=== PATIENT | male | born 1940 | race Caucasian/White ===

== ENCOUNTER 2017-03-11 08:00 | Inpatient (IN) | payer OTHER ==
[~2017-03-11] VITALS: Ht 175.3 cm; Wt 123.5 kg
[~2017-03-11 08:00] MED LIST: ADVAIR 100-501 EACH INH; ALEVE220 MG PO; ASPIRIN EC81 M1 PO; CARVEDILOL6.25 M1 PO; FISH OIL 500 M1 EAC1 PO; FLOMAX0.4 M1 PO; FUROSEMIDE20 MG PO; LISINOPRIL20 MG PO; MAGNESIUM OXID400 MG PO; MELOXICAM7.5 MG PO; METFORMIN HCL500 M3 PO; NITROGLYCERIN0.4 MG PO; PRINIVIL 5MG5 MG PO; TIKOSYN 250 M250 MCG PO; TIKOSYN0.5 MG PO; VICTOZA 3-0.6 MG/0.1 SC; VITAMIN E400 IU PO; ZOCOR10 M1 PO; [UNRECOGNIZED DRUG - OTHER] IV
--- NOTE | 2017-03-11 08:05 | ED GENERAL ADULT ---
History of Present Illness General Chief Complaint: Upper Extremity Problem Stated Complaint: S/P FALL KNEE PAIN ? CELLULITIS Source: patient Exam Limitations: no limitations Allergies Coded Allergies: NO KNOWN ALLERGIES (03/22/12) NKA PER DIPYRIDAMOLE ORDER SHEET - S Reconcile Medications Aspirin (Ecotrin*) 81 MG TABLET.DR 1 TAB PO DAILY HEART HEALTH (Reported) Carvedilol 6.25 MG TABLET 1 TAB PO BID HEART (Reported) Dofetilide 500 MCG CAPSULE 1 CAP PO BID HEART (Reported) Fluticasone-Salmeterol (Advair 100-50 Diskus) 100 MCG-50 MCG/DOSE BLST.W.DEV 1 PUF INH BID COPD (Reported) Liraglutide (Victoza 3-Myles) 0.6 MG/0.1 ML (18 MG/3 ML) PEN.INJCTR 1.2 MG SC DAILY DIABETES (Reported) Lisinopril (Prinivil) 5 MG TABLET 1 TAB PO DAILY HEART (Reported) Magnesium Gluconate (Mag-G) 27 MG (500 MG) TABLET 1 TAB PO Tuesday SUPPLEMENT (Reported) Metformin HCl 500 MG TABLET 1 TAB PO BID DIABETES (Reported) Florala-3/Dha/Epa/Fish Oil (Fish Oil 500 MG Softgel) 60 MG-90 MG-500 MG CAPSULE 1 CAP PO DAILY SUPPLEMENT (Reported) Simvastatin (Zocor*) 10 MG TABLET 1 TAB PO QPM CHOLESTEROL (Reported) Tamsulosin HCl (Flomax) 0.4 MG CAP.ER.24H 1 CAP PO DAILY PROSTATE (Reported) Vitamin E Acetate (Vitamin E) 400 UNIT CAPSULE 1 CAP PO BID SUPPLEMENT ( Reported) Triage Nurses Notes Reviewed? yes Onset: Abrupt Duration: JUST PRIOR TO ARRIVAL Timing: single episode today Injury Environment: home Severity: mild, moderate No Modifying Factors: none Associated Symptoms: WEAKNESS, LEG SWELLING HPI: This is a 76-year-old male who presents to the ER by EMS from home for chief complaint of weakness in his lower extremities and foot out of bed. Patient has a history of coronary disease status post bypass and ICD. He states he was getting out of bed and his legs felt weak and he slid to the ground. He Hit His Head or Lose Consciousness. Patient Is at Home and Lives with a Nephew. He Uses a Walker. He Has Not Been Out Of His House in the past Month and He Has Not Bathed in the past Month. He Recently Had Handicap Bars Installed in the Showers That He Did Start to Take a Bath. Denies Any Chest Pain. Minimal Shortness of Breath. No Fever No Chills. He States His Legs Are Swollen and Red and Have Been Weeping. He Does Not Follow up with Wound Care. Patient Sees Dr. Parikh for Cardiology. His Primary Care Doctor Is Dr. Barron in [place]. Patient was found to be incontinent by EMS. He was on the ground for about 10 or 15 minutes. EMS reports home conditions or poor for the patient. (YARIEL RODRÍGUEZ,[facility]) Vital Signs & Intake/Output Vital Signs & Intake/Output Vital Signs Date Time Temp Pulse Resp B/P B/P Pulse O2 O2 Flow FiO2 Mean Ox Delivery Rate 03/13 1543 98.9 69 20 124/70 93 03/13 1211 116/70 03/13 0837 120/64 03/13 0836 120/64 03/13 0716 98.4 64 18 120/64 93 Room Air 03/13 0318 59 96 03/13 0305 69 22 112/60 91 CPAP 03/13 0120 72 96 /09 0000 96 CPAP 2.0L 03/12 2240 98.2 69 18 126/50 93 Room Air 03/12 2232 67 95 /08 2147 78 126/80 ED Intake and Output 03/13 0000 03/12 1200 Intake Total 1200 1020 Output Total 1725 375 Balance -525 645 Intake, IV 620 Intake, Oral 1200 400 Output, Urine 1725 375 Past History Medical History Any Pertinent Medical History? see below for history Neurological: NONE EENT: hearing loss Cardiovascular: AFIB, CAD, hypertension, myocardial infarction, RCW AICD S/P CABG 2003 Respiratory: bronchitis, SLEEP APNEA Gastrointestinal: NONE Hepatic: NONE Renal: hematuria Musculoskeletal: falls Psychiatric: NONE Endocrine: DIABETES TYPE 2 Blood Disorders: NONE Cancer(s): NONE HAND ALTERATIONS TAILOR/Reproductive: NONE History of MRSA: No History of VRE: No History of CDIFF: No Pneumonia Vaccine: 06/05/14 Influenza Vaccine: 06/05/14 Surgical History Surgical History: CABG, ICD Psychosocial History Who do you live with Other (see notes) Services at Home None What is your primary language Togolese Family History Family History, If Any: MOTHER, , Age 60+; Cause: Heart disease. FH: heart disease BROTHER FH: lung cancer FATHER FH: prostate cancer Hx Contributory? No (YARIEL RODRÍGUEZ,YAYA) Review of Systems Review of Systems Constitutional: Reports: weakness. Denies: chills, fever. EENTM: Reports: no symptoms. Respiratory: Reports: short of breath. Denies: cough, sputum production. Cardiovascular: Reports: peripheral edema. Denies: chest pain. GI: Reports: no symptoms. Genitourinary: Reports: no symptoms. Musculoskeletal: Reports: no symptoms. Skin: Reports: erythema. Neurological/Psychological: Reports: no symptoms. Hematologic/Endocrine: Denies: bruising, bleeding, polyuria, polydipsia. Immunologic/Allergic: Denies: splenectomy. All Other Systems: Reviewed and Negative (YARIEL RODRÍGUEZ,YAYA) Physical Exam Physical Exam General Appearance: well developed/nourished, alert, awake, comfortable, mild distress, moderate distress, obese Head: atraumatic Eyes: Bilateral: PERRL. Ears, Nose, Throat: normal pharynx, hearing grossly normal Neck: normal inspection, supple, full range of motion Respiratory: normal breath sounds, chest non-tender, no respiratory distress Cardiovascular: regular rate/rhythm Peripheral Pulses: 2+ radial (R), 2+ radial (L) Gastrointestinal: soft, non-tender, spleenomegaly (OBESE) Extremities: B/L LOWER EXTREMITY ERYTHEMA, WEEPING, SKIN CHANGES. TENDER TO PALPATION Neurologic/Psych: no motor/sensory deficits, awake, alert, oriented x 3 Skin: B/L LOWER LEG ERYTHEMA, PEELING SKIN, OPEN AREAS FROM SKIN BREAKDOWN Core Measures ACS in differential dx? No CVA/TIA Diagnosis: No Severe Sepsis Present: No Septic Shock Present: No (YARIEL RODRÍGUEZ,YAYA) Progress Differential Diagnoses I considered the following diagnoses in my evaluation of the patient: [Chronic venous stasis, dependent edema, cellulitis, erysipelas, skin breakdown, failure to thrive] Diagnostic Imaging: Viewed by Me: Radiology Read. Discussed w/RAD: Radiology Read. CXR Impression: PATIENT: LUIS HENDERSON PRESENT AGE: 76 PATIENT ACCOUNT NO: [id number] : 40 LOCATION: [facility] ORDERING PHYSICIAN: YAYA SALDIVAR MD SERVICE DATE: 03/11/17 EXAM TYPE: RAD - XRY-PORTABLE CHEST XRAY EXAMINATION: XR PORTABLE CHEST CLINICAL INFORMATION: CHF edema shortness of breath COMPARISON: Most recent chest x-ray October 2014 TECHNIQUE: Portable frontal view of the chest was obtained. FINDINGS: Sternotomy wires are present. There is a persistent AICD device with leads overlying the cardiac silhouette unchanged. The lungs are clear. The cardiac silhouette mediastinum and pulmonary vascularity are normal. IMPRESSION: No acute disease no x-ray evidence for pulmonary edema DICTATED BY: NESTOR WEBER MD DATE/TIME DICTATED:03/11/17916 MEDICAL CONCIERGE:AMEE DATE/TIME TRANSCRIBED:916 CONFIDENTIAL, DO NOT COPY WITHOUT APPROPRIATE AUTHORIZATION. < Electronically signed in Other Vendor System> SIGNED BY: NESTOR WEBER MD 03/11/17922 Initial ED EKG: NSR, T WAVE INVERSIONS V3-V6 Prior EKG: changed ( (PACED)) (YARIEL RODRÍGUEZ,YAYA) Plan of Care: Orders Procedure Date/time Status CBC WITHOUT DIFFERENTIAL 03/14 600 Active BASIC ELECTROLYTES PLUS BUN&CR 03/14 06 Active Weight 03/13 0716 Active CBC WITHOUT DIFFERENTIAL 03/13 06 Complete BASIC ELECTROLYTES PLUS BUN&CR 03/13 06 Complete THERAPIST ORDERS 03/13 0323 Complete OXYGEN SETUP (GEN) 03/13 032 Complete Pathway - chart 03/12 2054 Active CONTIN. POSITIVE AIRWAY PRESS 03/12 UNK Complete PHYSICIAN CONSULT 03/12 UNK Active Current Medications Sig/Buck Start time Last Medication Dose Stop Time Status Admin Senna 187 MG AT BEDTIME 03/13 220 AC (Senokot) Lisinopril 5 MG DAILY 03/13 1047 AC 03/13 (Prinivil) 1211 Docusate Sodium 100 MG DAILY 03/13 1000 AC 03/13 (Colace) 0836 Insulin Aspart 0 TIDAC/HS 03/13 0800 CAN (NovoLOG) Polyethylene Glycol 17 GM DAILY PRN 03/13 0330 AC (Miralax) Zinc Oxide 1 GENE BID 03/12 2200 AC 03/13 (Desitin) 0837 Acetaminophen 650 MG Q6P PRN 03/12 2100 AC (Tylenol) Acetaminophen/ 1 TAB Q6P PRN 03/12 2100 AC 03/13 Hydrocodone Bitart 0551 (Vicodin) Morphine Sulfate 2 MG Q4P PRN 07/08 2100 AC (Morphine) Magnesium Chloride 64 MG DAILY 03/12 1000 AC 03/13 (Slow-Mag) 0836 Dofetilide 500 MCG BID 03/11 2200 AC 03/13 (Tikosyn 125 MCG) 0836 Ampicillin Sodium/ 3,000 MG Q6 03/11 1800 AC 03/13 Sulbactam Sodium 1211 (Unasyn) Sodium Chloride 100 ML (Normal Saline 0.9%) Atorvastatin Calcium 10 MG 1700 03/11 1700 AC 03/13 (Lipitor) 1602 Insulin Aspart 0 TIDAC 03/11 1700 AC 03/13 (NovoLOG) 1211 Heparin Sodium 5,000 UNIT Q8 03/11 1503 AC 03/13 (Porcine) 1211 Tamsulosin HCl 0.4 MG DAILY 03/11 1341 AC 03/13 (Flomax) 0836 Vitamin E 400 IU DAILY 03/11 1341 AC 03/13 (Vitamin E) 0836 Fish Oil 1,050 MG DAILY 03/11 1340 AC 03/13 (Florala-3) 0836 Budesonide/ 2 PUF BID 03/11 1339 AC 03/13 Formoterol Fumarate 0840 (SYMBICORT) Aspirin Buffered 81 MG DAILY 03/11 1338 AC 03/13 (Ecotrin) 0836 Carvedilol 6.25 MG BID 03/11 1338 AC 03/13 (Coreg) 0837 Laboratory Tests 03/13/17 0730: Anion Gap 11, Estimated GFR > 60, BUN/Creatinine Ratio 23.3, CBC w Diff MAN DIFF ORDERED, RBC 4.86, MCV 89.5, MCH 29.9, RDW 15.2 H, MPV 8.6, Gran % 60.8, Lymphocytes % 29.5, Monocytes % 6.6, Eosinophils % 2.7, Basophils % 0.4, Absolute Granulocytes 7.6 H, Segmented Neutrophils 50, Band Neutrophils 4, Absolute Lymphocytes 3.7 H, Lymphocytes 32, Monocytes 8, Absolute Monocytes 0.8 H, Eosinophils 2, Absolute Eosinophils 0.3, Basophils 1, Absolute Basophils 0, Metamyelocytes 3 H, Normocytic RBCs VERIFIED, Normochromic RBCs VERIFIED, PUBS MCHC 33.4 EKG, TELE MONITOR, LABS, XRAY ORDERED. BLOOD CULTURES, IV ABX ORDERED, IV TYLENOL ORDERED. DR NYDIA MONTEIOR. D/W HOSPITALIST FOR ADMISSION. PATIENT WITHOUT CHEST PAIN/EKG. MAY NEED PACEMAKER INTERROGATED. 2:[address] parikh called back - RECOMMENDS 23 HRS ON TELE FOR PACEMAKER EVALUATION. (YAYA SALDIVAR MD) Departure Departure Time of Disposition: 1148 Disposition: STILL A PATIENT Condition: Stable Clinical Impression Primary Impression: Dependent edema Secondary Impressions: USMAN (acute kidney injury), Cellulitis Referrals: ISIDORO RODRÍGUEZ,JUAN Cornejo (PCP/Family) Departure Forms: Customer Survey General Discharge Information Admission Note Spoke With: MAYRA AGUILAR MD Documentation of Exam: Documentation of any treatments & extenuating circumstances including Concerns Regarding Discharge (functional status, medication knowledge or non-compliance, living conditions, etc.) that warrant an admission rather than observation: [IV FLUIDS, IV ABX, WOUND CARE, MONITOR I/O, ENDOCRINE CONSULTATION] (YAYA SALDIVAR MD) Critical Care Note Critical Care Note Critical Care Time: non-applicable (YAYA SALDIVAR MD)
--- NOTE | 2017-03-11 08:15 | NUR ---
PT BIBA FROM HOME S/P SLIP AND FALL OUT OF BED ONTO HIS KNEES. STATES HE DID NOT HIT HIS HEAD. REPORTS HE WAS ON THE GROUND FOR A FEW HOURS WHILE HIS NEPHEW WAS SLEEPING. PT APPEARS UNKEMPT, STATES HE HAS NOT SHOWERED IN SOME TIME. CLOTHING SATURATED WITH URINE, PT CLEANED AND CHANGED. DR SALDIVAR TO [facility]. PT STATES HE DOES NOT GET UP AT HOME MUCH, AND LIVES WITH HIS NEPHEW WHO BUYS HIS FOOD FOR HIM.
[2017-03-11] MEDS ORDERED: MAG-G27 MG PO (09:10)
[2017-03-11] MEDS ORDERED: VITAMIN E400 UNI4 PO (09:11)
[2017-03-11] MEDS ORDERED: PRINIVIL5 M1 PO (09:13)
[2017-03-11] MEDS ORDERED: DOFETILIDE500 MCG PO (09:14)
--- NOTE | 2017-03-11 09:23 | RADIOLOGY REPORT ---
EXAMINATION: XR PORTABLE CHEST CLINICAL INFORMATION: CHF edema shortness of breath COMPARISON: Most recent chest x-ray October 2014 TECHNIQUE: Portable frontal view of the chest was obtained. FINDINGS: Sternotomy wires are present. There is a persistent AICD device with leads overlying the cardiac silhouette unchanged. The lungs are clear. The cardiac silhouette mediastinum and pulmonary vascularity are normal. IMPRESSION: No acute disease no x-ray evidence for pulmonary edema
[2017-03-11 10:00] LABS: ABSOLUTE BASOPHIL COUNT 0 /CUMM (0.0-0.2); ABSOLUTE EOSINOPHIL COUNT 0 /CUMM (0.0-0.7); ABSOLUTE GRANULOCYTE CT 12.2 /CUMM (1.4-6.5); ABSOLUTE LYMPH COUNT 2.3 /CUMM (1.2-3.4); ABSOLUTE MONOCYTE COUNT 0.8 /CUMM (0.10-0.60); BASOPHIL % 0.3 % (0.0-2.0); EOSINOPHIL % 0 % (0-5); HEMATOCRIT 44.4 % (42-52); MEAN CORPUSCULAR HGB 29.4 PG (27.0-31.0); MEAN CORPUSCULAR HGB CONC 33.1 G/DL (33.0-37.0); MEAN CORPUSCULAR VOLUME 88.8 FL (80.0-94.0); MEAN PLATELET VOLUME 9.2 FL (7.4-10.4); PLATELET COUNT 162 /CUMM (130-400); RBC DISTRIBUTION WIDTH 14.7 % (11.5-14.5); WHITE BLOOD CELL COUNT 15.3 /CUMM (4.8-10.8)
[2017-03-11 10:01] LABS: GRANULOCYTE % 79.9 % (42.2-75.2)
[2017-03-11 10:07] LABS: PT 12.1 SEC (9.4-12.5); PTT 25 SEC (25-37)
--- NOTE | 2017-03-11 10:10 | NUR ---
PT IS EXTREMEMLY DIFFICULT STICK. LABS OBTAINED AND CULTURES OBTAINED BY THIS RN AND BARBARA COPE, TAKEN TO LAB.
--- NOTE | 2017-03-11 10:45 | NUR ---
CEFAZOLIN INFUSING (SEE MAR)
--- NOTE | 2017-03-11 11:20 | NUR ---
PT AMBULATORY WITH USE OF WALKER AND ASSIST X1 TO GET OOB. ABLE TO STAND TO USE URINAL, SAMPLE SENT TO LAB.
--- NOTE | 2017-03-11 12:38 | History & Physical ---
MAURICE GRIDER 03/11/17 1236: General Information and HPI MD Statement: I have seen and personally examined LUIS HENDERSON and documented this H&P. The patient is a 76 year old M who presented with a patient stated chief complaint of [weakness/ leg swelling]. Source of Information: patient Exam Limitations: no limitations History of Present Illness: 76-year-old male with a past medical history of COPD, hyperlipidemia, diabetes mellitus, CAD s/p CABG in 2003 and AICD, BPH, LIAM on CPAP, occult GI bleed, who presents to us with c/o wekaness, and leg swelling. States he was in his USOH about 3 month sago when he fisrt noticed swelling and pain in his lower extremities that progressively worsened. Also endorsed blisters on his skin that started to then weep. Has been placing a dry bandage on it but to no avail. F/U Dr. Chaudhry his endocrinolist in [place] - 6 months - usually FSGs are in the 130s. F/U with Dr. Nguyen who placed defribillator (last saw him 6 months ago and will be seeing him next month). States taht last night he slid off [facility] bed while getting out because his left leg was hurting him a lot. Was unable to get up because of pain in his LEs. Called his nephew who called EMS and brought him to the ER. Dneis chest pain, shortness of breath, no dyspnea, PND, or orthopnea, no seizures, LOC, trauma to head, urinary adn fecal incontuinence or tongue biting. uses a walker at baseline. Hasnt been out of the house in 3 months. Denies fever, chills. Does say that he gets winded and has pain in his legs. States that his appetite has been good and denies any nausea, vomiting. Does endorse urinary incontinence because uanble to make it to the bathroom. Allergies/Medications Allergies: Coded Allergies: NO KNOWN ALLERGIES (03/22/12) NKA PER DIPYRIDAMOLE ORDER SHEET - [facility] Home Med list Aspirin (Ecotrin*) 81 MG TABLET. 1 TAB PO DAILY HEART HEALTH (Reported) Carvedilol 6.25 MG TABLET 1 TAB PO BID HEART (Reported) Dofetilide 500 MCG CAPSULE 1 CAP PO BID HEART (Reported) Fluticasone-Salmeterol (Advair 100-50 Diskus) 100 MCG-50 MCG/DOSE BLST.W.DEV 1 PUF INH BID COPD (Reported) Liraglutide (Victoza 3-Myles) 0.6 MG/0.1 ML (18 MG/3 ML) PEN.INJCTR 1.2 MG SC DAILY DIABETES (Reported) Lisinopril (Prinivil) 5 MG TABLET 1 TAB PO DAILY HEART (Reported) Magnesium Gluconate (Mag-G) 27 MG (500 MG) TABLET 1 TAB PO Tuesday SUPPLEMENT (Reported) Metformin HCl 500 MG TABLET 1 TAB PO BID DIABETES (Reported) Bomoseen-3/Dha/Epa/Fish Oil (Fish Oil 500 MG Softgel) 60 MG-90 MG-500 MG CAPSULE 1 CAP PO DAILY SUPPLEMENT (Reported) Simvastatin (Zocor*) 10 MG TABLET 1 TAB PO QPM CHOLESTEROL (Reported) Tamsulosin HCl (Flomax) 0.4 MG CAP.ER.24H 1 CAP PO DAILY PROSTATE (Reported) Vitamin E Acetate (Vitamin E) 400 UNIT CAPSULE 1 CAP PO BID SUPPLEMENT ( Reported) Past History Travel History Traveled to [place] past 21 day No Medical History Neurological: NONE EENT: hearing loss Cardiovascular: AFIB, CAD, hypertension, myocardial infarction, RCW AICD S/P CABG 2003 Respiratory: bronchitis, SLEEP APNEA Gastrointestinal: NONE Hepatic: NONE Musculoskeletal: falls Psychiatric: NONE Endocrine: DIABETES TYPE 2 Blood Disorders: NONE Cancer(s): NONE 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 FH: heart disease BROTHER FH: lung cancer FATHER FH: prostate cancer Psychosocial History Where do you live? Home Who Do You Live With? with nephew Services at Home: None Primary Language: Tristanian Smoking Status: Former Smoker (25 pck year) ETOH Use: occasional use Illicit Drug Use: denies illicit drug use Functional Ability ADLs Independent: eating. Needs Assist: dressing, toileting, bathing. Ambulation: walker IADLs Needs Assist: shopping, housework, finances, food prep, telephone, transportation, medication admin. 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 Denies: chills, fever. EENTM: Denies: visual changes. Cardiovascular: Reports: peripheral edema. Denies: chest pain, orthopena, palpitations, syncope. Respiratory: Reports: sputum production. Denies: cough, short of breath, wheezing. GI: Denies: abdominal pain, constipation, diarrhea, nausea, vomiting. Genitourinary: Reports: urgency. Denies: discharge, dysuria, frequency, hematuria. Musculoskeletal: Denies: back pain. Neurological/Psychological: Denies: headache, numbness, tingling, tremors. Exam & Diagnostic Data Last 24 Hrs of Vital Signs/I&O Vital Signs Date Time Temp Pulse Resp B/P B/P Pulse O2 O2 Flow FiO2 Mean Ox Delivery Rate 03/11 1153 98.0 80 20 125/51 98 Room Air 03/11 1124 97.0 84 138/70 03/11 1009 98.7 88 20 121/77 100 Room Air 03/11 0801 92 18 173/99 93 Room Air Physical Exam General Appearance Alert, Oriented X3, Cooperative, morbidly obese Skin Temp/Moisture Exam: Warm/Dry HEENT Atraumatic, PERRLA, EOMI, Mucous Membr. moist/pink Neck Supple, No JVD, No thryomegaly, +2 Carotid Pulse wo Bruit, No LAD Cardiovascular Normal S1, Normal S2 Lungs Clear to Auscultation, Normal Air Movement Abdomen Normal Bowel Sounds, Soft, No Tenderness, has Neurological Normal Speech, Normal Tone, Sensation Intact, Cranial Nerves 3-12 NL Extremities b/l 3+ edema with chronic venous stasis canges, and multiple blisters and weeping wounds measuring 3cm x2cm on his anterolateral aspect of mercado. Body Front and Back (Adult) 1) blister 2) blister 3) has a 2cm x3cm weeping wound 4) has a 3cm x1cm weeping wound Last 24 Hrs of Labs/Les: Laboratory Tests 03/11/17 1117: Urine Color YEL, Urine Clarity CLDY H, Urine pH 5.5, Ur Specific [place] 1.025, Urine Protein 100 H, Urine Ketones 15 H, Urine Nitrite NEG, Urine Bilirubin NEG, Urine Urobilinogen 0.2, Ur Leukocyte Esterase MOD H, Ur Microscopic SEDIMENT EXAMINED, Urine RBC 15-25 H, Urine WBC PACKD H, Ur Epithelial Cells FEW, Urine Bacteria FEW H, Urine Hemoglobin LARGE H, Urine Glucose >=1000 H 03/11/17 0935: Anion Gap 16, Estimated GFR 46 L, BUN/Creatinine Ratio 16.0, Glucose 293 H, Calcium 10.2, Total Bilirubin 1.3, AST 26, ALT 26, Alkaline Phosphatase 65, Troponin I 0.03, Osl-V-Gfvoajkbkeq Pept 527 H, Total Protein 7.0, Albumin 4.3, Globulin 2.7, Albumin/Globulin Ratio 1.6, PT 12.1, INR 1.15, APTT 25, CBC w Diff NO MAN DIFF REQ, RBC 5.00, MCV 88.8, MCH 29.4, RDW 14.7 H, MPV 9.2, Gran % 79.9 H, Lymphocytes % 14.8 L, Monocytes % 5.0, Eosinophils % 0, Basophils % 0.3, Absolute Granulocytes 12.2 H, Absolute Lymphocytes 2.3, Absolute Monocytes 0.8 H, Absolute Eosinophils 0, Absolute Basophils 0, PUBS MCHC 33.1 Microbiology 03/11 950 BLOOD: Blood Culture - RECD 03/11 940 BLOOD: Blood Culture - RECD Diagnostic Data EKG Results ? Sinus rythm; HR: 78, T wave inversions in II, III, aVF, and V3-V6 (changed formo previous) CXR Results revealed presence of sternotomy wires, persistent AICD with leads overlying the cardiac silhouette, lungs clear with normal pulmonary vascularity. Assessment/Plan Assessment: 76-year-old male with a past medical history of COPD, hyperlipidemia, diabetes mellitus, CAD s/p CABG in 2003 and AICD, BPH, LIAM, occult GI bleed, who presents to us with c/o wekaness, and leg swelling. Vitals on admission blood pressure 170/99, respiratory rate of 18, pulse 92 afebrile saturating 93% on room air. Labs pertinent for leukocytosis with a white blood cell count 15,300, H&H of 44.4/88.8, and a platelet count of 162,000. Serum chemistries revealed a sodium of 137, potassium of 4.7, bicarbonate of 20, anion gap of 16, BUN 24 with a creatinine of 1.5, He is 93. LFTs unremarkable with an AST/ALT of 26/26, total bili 1.3, alkaline phosphatase of 65. Troponin first set 0.03. ProBNP elevated to 527. INR of 1.15. UA was cloudy with proteinuria, ketonuria, moderate amount of leukocyte esterase, 15-25 RBCs with packed white blood cells, glucosuria. Dobutamine nuclear stress was done back in November 2014, which showed no clinical or electrocardiographic evidence of dobutamine induced myocardial ischemia. Echo done in October 2014 showed normal left ventricular size, abnormal septal motion consistent with hypokinetic septum, mildly reduced global left ventricular systolic function, abnormal left ventricular EF around 40-45% with stage I diastolic dysfunction EKG revealed ? Sinus rythm; HR: 78, T wave inversions in II, III, aVF, and V3-V6 (changed formo previous) Chest x-ray revealed presence of sternotomy wires, persistent AICD with leads overlying the cardiac silhouette, lungs clear with normal pulmonary vascularity. In the ER, he received IV Tylenol thousand milligrams x1, cefazolin 100 mg IV 1. Assesment and Plan Admit to Telemetry given EKG abnormailities. #Cellulitis of the setting of bilateral lower extremity swelling and wounds Most likely secondary to chronic venous stasis changes with superimposed cellulitis Follow-up ultrasound Dopplers to rule out DVT Start him on Unasyn 3000 mg every 6 for anaerobic coverage Wound care consult Follow-up blood cultures He probably benefit from being diuresed once his renal function is back to baseline #Diabetes mellitus Patient is on Victoza and metformin We'll hold his home medications for now and start him on NovoLog sliding scale Follow-up Accu-Cheks 3 times a day at bedtime Follow-up hemoglobin A1c #Coronary artery disease status post CABG as well as AICD placement Will rule out ACS with troponins and EKG at 3 PM and 9 PM Follow-up echocardiogram Cardiology consult with Dr. Sanchez Continue aspirin, carvedilol, atorvastatin, dofetilide Holding lisinopril 5 mg daily given AK I #Right hip. Patient did have a hip replacement surgery done 2 years ago Surgery was performed by Dr. Webb whose office of called and left a voice message waiting for call back. Follow-up x-ray showed some loosening of the hardware #AK I Most likely secondary to dehydration Hydrate him with IV fluids normal saline at 75 MLS per hour Follow-up BEP in a.m. Avoid nephrotoxic agents for now Continue to hold lisinopril and resume in a.m. depending on BEP #EPH Continue on tamsulosin 0.4 mg daily #COPD Continue on Symbicort TRC nebs #LIAM on CPAP Continue on patient's home settings of CPAP -DVT prophylaxis Heparin 5000 international units 3 times a day subcutaneous - Diet Consistent carb with 2 g sodium restriction -Code Status Full code As Ranked By This Provider Problem List: 1. Cellulitis 2. USMAN (acute kidney injury) Core Measures/Miscellaneous Acute Coronary Syndrome ACS Diagnosis: No Cerebrovascular Accident CVA/TIA Diagnosis: No Congestive Heart Failure CHF Diagnosis: No VTE (View Protocol) VTE Risk Factors: Age > 40 No [facility] VTE prophylaxis d/t: No contraindications No VTE Pharm Prophylaxis d/t: No contraindications VTE Diagnosis: No VTE Type: NONE VTE Confirmed by (Test): NONE Sepsis (View Protocol) Severe Sepsis Present: No Septic Shock Septic Shock Present: No Miscellaneous Documentation Attending Case Discussed With: LAUREN RODRÍGUE[facility]CAR[facility] Primary Care Physician: JUAN CHAUDHRY MD Patient sees these Specialists Dr. Patrick Sanchez Level of Patient Care: General Medicine Resident Review Statement Resident Statement: admitted by resident POLY ALEXANDER MD 03/11/17 1619: Attending MD Review Statement Attending Statement Attending MD Statement: examined this patient, discuss w/resident/PA/BROADCAST OPERATIONS ENGINEER, agreed w/resident/PA/BROADCAST OPERATIONS ENGINEER, reviewed EMR data (avail), discussed with nursing, discussed with case mgmt, reviewed images, amended to note Attending Assessment/Plan: 76 y/o M with pmh sig for COPD, hyperlipidemia, diabetes mellitus, CAD s/p CABG in 2003 and AICD, BPH, LIAM on CPAP, occult GI bleed, presentd with generalized weakness, increasing leg swelling b/l, weeping wounds on lle and he sled out of bed and hit his lle. Patient has this chronic wound issues for quite a while. Now the left lower extremity wounds are open with some blisters. There is some clear discharge. He also claims that he has not been taking any diuretics lately. He follows up with Dr. Sanchez as well as Dr. Neelam qiu. He claims that his defibrillator has been working okay. He denies any decrease in his oral intake but in the emergency room his creatinine was elevated and he was in acute renal failure. He denies any urinary complaints but he does have a dirty looking urine. He follows up with an plisse machine operator in [facility] Dr. Chaudhry. He was also complaining of right hip pain specially upon movement. He had a history of right hip replacement done in the past. Vital Signs Date Time Temp Pulse Resp B/P B/P Pulse O2 O2 Flow FiO2 Mean Ox Delivery Rate 03/11 1346 98.2 88 138/84 03/11 1153 98.0 80 20 125/51 98 Room Air 03/11 1124 97.0 84 138/70 03/11 1009 98.7 88 20 121/77 100 Room Air 03/11 0801 92 18 173/99 93 Room Air on exam; aox3, nad. cv; s1,s2, rrr, + ICD. resp; clear b.l abd; soft, nt, bs+ ext; 2+ eema, with blisters and open leaking wounds. LAbs; 03/11 03/11 1117 0935 Chemistry Sodium (137 - 145 mmol/L) 137 Potassium (3.5 - 5.1 mmol/L) 4.7 Chloride (98 - 107 mmol/L) 102 Carbon Dioxide (22 - 30 mmol/L) 20 L Anion Gap (5 - 16) 16 BUN (9 - 20 mg/dL) 24 H Creatinine (0.7 - 1.2 mg/dL) 1.5 H Estimated GFR (>60 ml/min) 46 L BUN/Creatinine Ratio (7 - 25 %) 16.0 Glucose (65 - 99 mg/dL) 293 H Hemoglobin A1c (4.2 - 5.8 %) Pending Calcium (8.4 - 10.2 mg/dL) 10.2 Total Bilirubin (0.2 - 1.3 mg/dL) 1.3 AST (17 - 59 U/L) 26 ALT (21 - 72 U/L) 26 Alkaline Phosphatase (< 127 U/L) 65 Troponin I (<0.11 ng/ml) 0.03 Chx-O-Hxnjsqiasrc Pept (<125 pg/mL) 527 H Total Protein (6.3 - 8.2 g/dL) 7.0 Albumin (3.5 - 5.0 g/dL) 4.3 Globulin (1.9 - 4.2 gm/dL) 2.7 Albumin/Globulin Ratio (1.1 - 2.2 %) 1.6 Coagulation PT (9.4 - 12.5 SEC) 12.1 INR (0.90 - 1.17) 1.15 APTT (25 - 37 SEC) 25 Hematology CBC w Diff NO MAN DIFF REQ WBC (4.8 - 10.8 /CUMM) 15.3 H RBC (4.70 - 6.10 /CUMM) 5.00 Hgb (14.0 - 18.0 G/DL) 14.7 Hct (42 - 52 %) 44.4 MCV (80.0 - 94.0 FL) 88.8 MCH (27.0 - 31.0 PG) 29.4 RDW (11.5 - 14.5 %) 14.7 H Plt Count (130 - 400 /CUMM) 162 MPV (7.4 - 10.4 FL) 9.2 Gran % (42.2 - 75.2 %) 79.9 H Lymphocytes % (20.5 - 51.1 %) 14.8 L Monocytes % (1.7 - 9.3 %) 5.0 Eosinophils % (0 - 5 %) 0 Basophils % (0.0 - 2.0 %) 0.3 Absolute Granulocytes (1.4 - 6.5 /CUMM) 12.2 H Absolute Lymphocytes (1.2 - 3.4 /CUMM) 2.3 Absolute Monocytes (0.10 - 0.60 /CUMM) 0.8 H Absolute Eosinophils (0.0 - 0.7 /CUMM) 0 Absolute Basophils (0.0 - 0.2 /CUMM) 0 PUBS MCHC (33.0 - 37.0 G/DL) 33.1 Urines Urine Color (YEL,AMB,STR) YEL Urine Clarity (CLEAR) CLDY H Urine pH (5.0 - 8.0) 5.5 Ur Specific [place] (1.001 - 1.035) 1.025 Urine Protein (NEG,<30 MG/DL) 100 H Urine Ketones (NEG) 15 H Urine Nitrite (NEG) NEG Urine Bilirubin (NEG) NEG Urine Urobilinogen (0.1 - 1.0 EU/dl) 0.2 Ur Leukocyte Esterase (NEG) MOD H Ur Microscopic SEDIMENT EXAMINED Urine RBC (0 - 5 /HPF) 15-25 H Urine WBC (0 - 2 /HPF) PACKD H Ur Epithelial Cells (NONE,FEW) FEW Urine Bacteria (NEG/NONE) FEW H Urine Hemoglobin (NEG) LARGE H Urine Glucose (N MG/DL) >=1000 H EKG shows sinus rhythm. There are some T-wave inversions in inferior leads which is present in the old EKG but the T-wave inversions in lateral leads is new. Imaging: venous doppler: IMPRESSION: Normal triplex scan without evidence of deep venous thrombosis involving the lower extremities. CXR: IMPRESSION: No acute disease no x-ray evidence for pulmonary edema Right Hip Xray: IMPRESSION: Thin lucency along the acetabular component of the right hip arthroplasty hardware. This is a change from the previous study from 2015. The appearance is nonspecific. Slight loosening is possible. A/P; 76 y/o M with pmh sig for COPD, hyperlipidemia, diabetes mellitus, CAD s/p CABG in 2003 and AICD, BPH, LIAM on CPAP, occult GI bleed admitted with acute renal failure, possible UTI as well as cellulitis of the left extremity. Patient also has loosening of the hardware in the right hip prosthesis. Patient will be admitted to telemetry. He has abnormal EKG. First troponin negative. We'll trend his troponins. Cardiology will be consulted. Continue cardiac medications and echo cardiogram will be obtained. He does have pain in the right hip likely secondary to loosening of the hardware. Please consult orthopedic doctor Veronica. Pain management can be done with the pain pathway. Renal failure. Patient will be hydrated gently with IV fluids 1 back. Creatinine will be monitored. Avoid nephrotoxins. Infectious disease: Please follow-up on blood cultures and urine cultures. For now patient will be covered with IV Unasyn. Anabiotic can be adjusted accordingly. Please obtain wound care consult. DVT prophylaxis: Heparin subcutaneous. Full code.
--- NOTE | 2017-03-11 13:34 | NUR ---
PT ASSIGNMENT 209-2. RN NOTIFIED.
--- NOTE | 2017-03-11 14:37 | NUR ---
REPORT TO JONNIE SEN
--- NOTE | 2017-03-11 14:52 | RADIOLOGY REPORT ---
EXAMINATION: XR HIP, RIGHT CLINICAL INFORMATION: Pain in right hip with movement. COMPARISON: 10/16/2014 TECHNIQUE: Two views of the right hip. FINDINGS: There is a total right hip arthroplasty. The femoral head component articulates appropriately with the acetabular component. There is a thin rim of lucency surrounding the acetabular component, measuring up to 0.3 cm. This measures 0.1 cm throughout most of the course of the component. No periprosthetic fracture. The femoral component is unremarkable. The bowel gas pattern is unremarkable. IMPRESSION: Thin lucency along the acetabular component of the right hip arthroplasty hardware. This is a change from the previous study from 2014. The appearance is nonspecific. Slight loosening is possible.
--- NOTE | 2017-03-11 15:03 | ULTRASOUND REPORT ---
EXAMINATION: US TRIPLEX OF LOWER EXTREMITIES, BILATERAL CLINICAL INFORMATION: Bilateral lower extremity pain. COMPARISON: None TECHNIQUE: Color-flow triplex imaging with spectral analysis and compression Doppler were performed on the lower extremities. FINDINGS: Respiratory variation, normal compression and augmented flow are noted throughout the lower extremities. The visualized common femoral vein, superficial femoral vein, profunda femoral vein, popliteal vein and midcalf peroneal and posterior tibial venous segments show no evidence of deep venous thrombosis. There is no King's cyst. IMPRESSION: Normal triplex scan without evidence of deep venous thrombosis involving the lower extremities.
--- NOTE | 2017-03-11 16:32 | NUR ---
WOUND CARE: REQUESTED BY FRANCY CRISTINA TO EVLAUATE PT FOR MULTIPLE AREAS OF SKIN ALTERATION PRESENT ON ADMISSION - HX REVIEWED WITH PT AND NEPHEW PRESENT AT BEDSIDE - PT DENIES ANY KNOWLEGE OF WOUNDS TO LOWER EXTREMITIES AND DENIES KNOWLEDGE OF EDEMA - PT NOTED WITH SKIN ALTERATIONS FOLLOWS: RIGHT LOWER EXT MULTIPLE VARYING FUILL AND PARTIAL THICNKESS WOUNDS 3X5 CM CLUSTERED WTIH PALE PINK FILL - RIGHT INNER LEG 3X3.5 CM SERSOUSN FILLED BLISTER - LEFT LEG 5X5 CM PARTIAL THCICKESS WOUND WITH PALE RED FILL ADN 10X10 CM WOUND WITH DRY SCABBED SEROSANG DRNG - RIGHT FOOT 3X3.5 CM FLUID FILLED BLISTER - + WEAK PALPABLE DORSALIS PEDIS PULSES - US IN ER REVIEWED NEGATIVE FOR DVT - - HOMANS - PT C/O SEVERE PAIN TO RIGHT HIP AND EXTREME DIFFICULTY REPOSITIONING - BUTTOCKS NOTED WTIH AREAS OF STAGE 1 PRESSURE INJURY NONBLANCHABLE ERYTHEMA 4X5 CM INTACT RECOMMEDNATION: DUE TO POOR MOBILITY AND ? HIP COMPLICATIONS, PLEASE OBTAIN SIZE BURCH MATTRESS - APPLY VITAIM A+D OINTMENT TO BUTTOCKS QS ADN PRN - CLEANSE LEG WOUNDS WITH NS XEROFORM GAUZE AND DPD DAILY - OFFLOAD HEELS AND ELEVATE BLE AT ALL TIMES PLEASE
[2017-03-11 17:00] VITALS: BP 110/68; BP 132/58
--- NOTE | 2017-03-11 17:00 | Cons- Cardiology ---
General Information and HPI Consulting Request Date of Consult: 03/11/17 Requested By: MAYRA AGUILAR MD Reason for Consult: Abnormal electrocardiogram. Source of Information: patient, old records Exam Limitations: poor historian History of Present Illness: Mr. Navarro Walls is a 76-year-old white male with a history of morbid obesity, obstructive sleep apnea on CPAP, COPD, hypertension, dyslipidemia, diabetes mellitus, coronary artery disease/ischemic cardiomyopathy (s/p inferior wall myocardial infarction in 1998, CABG 4 with a WHITE graft to the LAD and individual saphenous vein grafts to the diagonal, marginal, and posterior descending artery along with a maze procedure), and recurrent paroxysmal atrial fibrillation discovered March 2004 s/p DC cardioversion who presented in an unkempt state via ambulance after being discovered on the floor of his home several hours after he had fallen without a head strike. He states that he fell to the floor last night while attempting to get up due to left lower extremity discomfort and was unable to get up. He lives with a nephew and eventually called him and called 911. He was admitted in July 2005 with presyncope, diaphoresis, and chest pain and was found to be in sustained ventricular tachycardia at 190 beats per minute with right bundle branch block and rightward axis morphology. Attempts at antiarrhythmic therapy (lidocaine/ amiodarone) were ineffective, and he was electrically cardioverted to sinus rhythm. He was maintained on Tikosyn to suppress both arterial and ventricular arrhythmias and ultimately did have a combination pacemaker/defibrillator placed in 2004. He did have a defibrillator generator change around 2011. He then developed severe right hip pain and was placed on nonsteroidal antiinflammatory agents for this (Mobic and Aleve) and was cleared for surgery after stress testing was performed in September 2012 that revealed fixed defects with no evidence of ischemia. He also had an echocardiogram performed that revealed global hypokinesis and ejection fraction of around 40%. He underwent successful right hip replacement in December 2013. He was last hospitalized here (10/16-10/25/2014) with weakness, nausea, decreased by mouth intake, and hypotension, following multiple falls and sleeping on his floor when he couldn't get up and was discovered to be septic with positive blood cultures for enterococcus, acute kidney injury, nephrolithiasis, occult GI bleeding, transaminitis, bronchitis, thrombocytopenia , elevated CK, etc. and fortunately improved with aggressive hydration, antimicrobial therapy, etc. Allergies/Medications Allergies: Coded Allergies: NO KNOWN ALLERGIES (03/22/12) NKA PER DIPYRIDAMOLE ORDER SHEET - [facility] Home Med List: Aspirin (Ecotrin*) 81 MG TABLET.DR 1 TAB PO DAILY HEART HEALTH (Reported) Carvedilol 6.25 MG TABLET 1 TAB PO BID HEART (Reported) Dofetilide 500 MCG CAPSULE 1 CAP PO BID HEART (Reported) Fluticasone-Salmeterol (Advair 100-50 Diskus) 100 MCG-50 MCG/DOSE BLST.W.DEV 1 PUF INH BID COPD (Reported) Liraglutide (Victoza 3-Myles) 0.6 MG/0.1 ML (18 MG/3 ML) PEN.INJCTR 1.2 MG SC DAILY DIABETES (Reported) Lisinopril (Prinivil) 5 MG TABLET 1 TAB PO DAILY HEART (Reported) Magnesium Gluconate (Mag-G) 27 MG (500 MG) TABLET 1 TAB PO Tuesday SUPPLEMENT (Reported) Metformin HCl 500 MG TABLET 1 TAB PO BID DIABETES (Reported) Coleman-3/Dha/Epa/Fish Oil (Fish Oil 500 MG Softgel) 60 MG-90 MG-500 MG CAPSULE 1 CAP PO DAILY SUPPLEMENT (Reported) Simvastatin (Zocor*) 10 MG TABLET 1 TAB PO QPM CHOLESTEROL (Reported) Tamsulosin HCl (Flomax) 0.4 MG CAP.ER.24H 1 CAP PO DAILY PROSTATE (Reported) Vitamin E Acetate (Vitamin E) 400 UNIT CAPSULE 1 CAP PO BID SUPPLEMENT ( Reported) Past History Travel History Traveled to [place] past 21 day No Medical History Neurological: NONE EENT: hearing loss Cardiovascular: AFIB, CAD, hypertension, myocardial infarction, RCW AICD S/P CABG 2003 Respiratory: bronchitis, SLEEP APNEA Gastrointestinal: NONE Hepatic: NONE Musculoskeletal: falls Psychiatric: NONE Endocrine: DIABETES TYPE 2 Blood Disorders: NONE Cancer(s): NONE 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 FH: heart disease BROTHER FH: lung cancer FATHER FH: prostate cancer Psychosocial History Where Do You Live? Home Who Do You Live With? with nephew Services at Home: None Primary Language: Vietnamese Smoking Status: Former Smoker (25 pck year) ETOH Use: occasional use Illicit Drug Use: denies illicit drug use Functional Ability ADLs Independent: eating. Needs Assist: dressing, toileting, bathing. Ambulation: walker IADLs Needs Assist: shopping, housework, finances, food prep, telephone, transportation, medication admin. 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 HEENT: Normocephalic, atraumatic, EOMI, slightly dry mucous membranes. Neck: No JVD, no bruits. Lungs: Decreased breath sounds bilaterally. Heart: S1, S2 (both distant) with soft (grade 1/6) systolic murmur. No gallop or rub appreciated. PMI not well felt. Abdomen: Soft, nontender, positive bowel sounds. Extremities: Wrapped with bilateral edema. Labs/Les Results: Laboratory Tests 03/11 03/11 1117 0935 Chemistry Sodium (137 - 145 mmol/L) 137 Potassium (3.5 - 5.1 mmol/L) 4.7 Chloride (98 - 107 mmol/L) 102 Carbon Dioxide (22 - 30 mmol/L) 20 L Anion Gap (5 - 16) 16 BUN (9 - 20 mg/dL) 24 H Creatinine (0.7 - 1.2 mg/dL) 1.5 H Estimated GFR (>60 ml/min) 46 L BUN/Creatinine Ratio (7 - 25 %) 16.0 Glucose (65 - 99 mg/dL) 293 H Hemoglobin A1c (4.2 - 5.8 %) Pending Calcium (8.4 - 10.2 mg/dL) 10.2 Total Bilirubin (0.2 - 1.3 mg/dL) 1.3 AST (17 - 59 U/L) 26 ALT (21 - 72 U/L) 26 Alkaline Phosphatase (< 127 U/L) 65 Troponin I (<0.11 ng/ml) 0.03 Nqx-F-Nownpvtrzey Pept (<125 pg/mL) 527 H Total Protein (6.3 - 8.2 g/dL) 7.0 Albumin (3.5 - 5.0 g/dL) 4.3 Globulin (1.9 - 4.2 gm/dL) 2.7 Albumin/Globulin Ratio (1.1 - 2.2 %) 1.6 Coagulation PT (9.4 - 12.5 SEC) 12.1 INR (0.90 - 1.17) 1.15 APTT (25 - 37 SEC) 25 Hematology CBC w Diff NO MAN DIFF REQ WBC (4.8 - 10.8 /CUMM) 15.3 H RBC (4.70 - 6.10 /CUMM) 5.00 Hgb (14.0 - 18.0 G/DL) 14.7 Hct (42 - 52 %) 44.4 MCV (80.0 - 94.0 FL) 88.8 MCH (27.0 - 31.0 PG) 29.4 RDW (11.5 - 14.5 %) 14.7 H Plt Count (130 - 400 /CUMM) 162 MPV (7.4 - 10.4 FL) 9.2 Gran % (42.2 - 75.2 %) 79.9 H Lymphocytes % (20.5 - 51.1 %) 14.8 L Monocytes % (1.7 - 9.3 %) 5.0 Eosinophils % (0 - 5 %) 0 Basophils % (0.0 - 2.0 %) 0.3 Absolute Granulocytes (1.4 - 6.5 /CUMM) 12.2 H Absolute Lymphocytes (1.2 - 3.4 /CUMM) 2.3 Absolute Monocytes (0.10 - 0.60 /CUMM) 0.8 H Absolute Eosinophils (0.0 - 0.7 /CUMM) 0 Absolute Basophils (0.0 - 0.2 /CUMM) 0 PUBS MCHC (33.0 - 37.0 G/DL) 33.1 Urines Urine Color (YEL,AMB,STR) YEL Urine Clarity (CLEAR) CLDY H Urine pH (5.0 - 8.0) 5.5 Ur Specific Ringle (1.001 - 1.035) 1.025 Urine Protein (NEG,<30 MG/DL) 100 H Urine Ketones (NEG) 15 H Urine Nitrite (NEG) NEG Urine Bilirubin (NEG) NEG Urine Urobilinogen (0.1 - 1.0 EU/dl) 0.2 Ur Leukocyte Esterase (NEG) MOD H Ur Microscopic SEDIMENT EXAMINED Urine RBC (0 - 5 /HPF) 15-25 H Urine WBC (0 - 2 /HPF) PACKD H Ur Epithelial Cells (NONE,FEW) FEW Urine Bacteria (NEG/NONE) FEW H Urine Hemoglobin (NEG) LARGE H Urine Glucose (N MG/DL) >=1000 H Diagnostic Data EKG Results () sinus rhythm, multiple APCs, vertical axis, RBBB, probable old inferior wall myocardial infarction, lateral T depression, cannot exclude ischemia. CXR Results (03/11/2017) no acute cardiopulmonary process. Other Results Bilateral lower extremity ultrasound (03/11/2017): Normal triplex scan without evidence of deep venous thrombosis involving the lower extremities. Right hip x-ray (03/11/2017):Thin lucency along the acetabular component of the right hip arthroplasty hardware. This is a change from the previous study from 2015. The appearance is nonspecific. Slight loosening is possible. Assessment/Plan Assessment/Plan [id number] w/ hx of morbid obesity, LIAM on CPAP, COPD, HTN, HLD, DM,CAD/ICM (s/p IMI in 1998, CABG 4 w/ WHITE to LAD and individual SVGs to Dx, OM, PDA & MAZE), and recurrent PAF who presented in an unkempt state via ambulance after being discovered on the floor of his home several hours after he had fallen w/ findings of a UTI, bilateral lower extremity cellulitis, etc. Recommendations: * Continue on telemetry given known history of significant dysrhythmias, follow- up troponins, follow-up electrocardiograms. * Interrogate BiV pacemaker/defibrillator. * Determine why he is not on chronic anticoagulation given history of PAF. * Echocardiogram to reassess LV function, given her need for volume resuscitation. * Hold diuretic and CLARISA inhibitor for the short-term, given USMAN. * Continue beta guillermo, antiarrhythmic, antiplatelets, statin, etc. * IV fluid resuscitation. * CXR in a.m. * Check magnesium, phosphorus, creatine kinase, TSH, free T4, glycosylated hemoglobin A1c, etc. * Empiric antimicrobial therapy pending cultures. * Physical therapy evaluation. * Orthopedic surgery consultation. * Wound care consultation. * DVT prophylaxis. Further recommendations will follow, Thank you. Consult Acknowledgment - Thank you for your consult request.
--- NOTE | 2017-03-11 21:59 | NUR ---
LATE ENTRY: PATIENT ARRIVED TO FLOOR AT 1500, WAS A GEN-MED, THEN TELE, TRANSPORTED FROM [facility] AND U/S-REC'D REPORT FROM FRANCY CRISTINA, 2NB. VS 99.0 82 18 132/58 95% ROOM AI, EXERTIONAL SOB; FALL PREC IN PLACE A&O; IND WITH RW AT BASELINE; AX2 TO BSC HERE PT EVAL; DEFIBRILLATOR TO RCW; SEE [facility] FOR WOUND ASSESSMENTS; DIFFICULT TO TURN PATIENT BECAUSE OF HIP PAIN, BACK LOOKED INTACT, SOME REDNESS TO BUTTOCKS; USES URINAL, SMALL AMOUNTS, FREQUENTLY, ONE SMALL STONE PASSED. IV #20 TO RF WITH NS @ 75 ML/HR RUNNING; ORIENTED TO ROOM AND CALL VILLANUEVA, SAFETY MAINTAINED, NEEDS WITHIN REACH.
--- NOTE | 2017-03-11 23:43 | NUR ---
SIZEWISE ORDERED; INFORMED DR SALES TO ORDER A&D OINTMENT FOR PATIENT'S BUTTOCKS PER [facility].
[2017-03-12 02:36] VITALS: BP 142/64
[2017-03-12 07:43] VITALS: BP 112/70
--- NOTE | 2017-03-12 08:09 | RADIOLOGY REPORT ---
EXAMINATION: XR PORTABLE CHEST CLINICAL INFORMATION: Leg swelling. Evaluate for pulmonary venous congestion. COMPARISON: Previous chest x-rays most recent from yesterday TECHNIQUE: Portable frontal view of the chest was obtained. FINDINGS: The cardiac and mediastinal contours are stable. There is a left subclavian dual chamber pacemaker unchanged in position. There are median sternotomy wires. Hilar and mediastinal contours are unremarkable. The lungs are clear. There is no pleural effusion. IMPRESSION: No evidence for acute disease in the chest.
--- NOTE | 2017-03-12 10:58 | PN- Housestaff ---
[facility] 1058: Subjective Follow-up For: Cellulitis of the setting of bilateral lower extremity swelling and wounds Right hip loosening of the hardware AK I Complaints: pt complains of his sugars being very high this am Subjective: Region has been doing slightly better today. Complains that his blood sugars have not been well controlled. His last fingersticks have been 299, 299, 273. Still complains of some leg discomfort. Vital stable overnight. Review of Systems Constitutional: Reports: malaise, weakness. EENTM: Reports: no symptoms. Cardiovascular: Reports: no symptoms. Respiratory: Reports: no symptoms. Gastrointestinal: Reports: no symptoms. Genitourinary: Reports: no symptoms. Musculoskeletal: Reports: joint pain, muscle pain. Objective Last 24 Hrs of Vital Signs/I&O Vital Signs Date Time Temp Pulse Resp B/P B/P Pulse O2 O2 Flow FiO2 Mean Ox Delivery Rate 03/12 1131 118/74 /08 1131 118/74 / 0743 98.0 73 22 112/70 93 Room Air / 0236 98.2 78 22 142/64 91 Room Air 07/ 2041 92 150/66 07/07 2040 92 150/66 07/07 1700 95 Room Air 07/07 1700 99.0 82 18 132/58 95 Room Air 07/07 1700 98.3 82 22 110/68 95 Intake & Output /08 1600 07/08 0800 07/08 0000 Intake Total 600 1020 688 Output Total 475 375 500 Balance 125 645 188 Intake, IV 620 188 Intake, Oral 600 400 500 Output, Urine 475 375 500 Patient 117.934 kg Weight Weight Reported by Patient Measurement Method Physical Exam General Appearance: Alert, Oriented X3, morbidly obese Skin: No Rashes, josephine wrap in bilateral lower extremities Skin Temp/Moisture Exam: Warm/Dry Sepsis Skin Exam (color): Normal for Ethnicity HEENT: Atraumatic, PERRLA, EOMI Neck: Supple, No JVD, No thryomegaly Lymphatic: Cervical nl Cardiovascular: Regular Rate, Normal S1, Normal S2, systolic murmur Lungs: Clear to Auscultation, Normal Air Movement Abdomen: Normal Bowel Sounds, Soft, No Tenderness Neurological: Normal Speech, Strength at 5/5 X4 Ext, Normal Tone Extremities: 2-3+ edema with chrinic venous stasis changes, bandeges over the legs appear clean and intact Assessment/Plan Assessment: 76-year-old male with a past medical history of COPD, hyperlipidemia, diabetes mellitus, CAD s/p CABG in 2003 and AICD, BPH, LIAM, occult GI bleed, who presents to us with c/o wekaness, and leg swelling. #Cellulitis of the setting of bilateral lower extremity swelling and wounds Most likely secondary to chronic venous stasis changes with superimposed cellulitis Dopplers negative for DVT Unasyn IV day 2 of antibiotic Wound care following the patient Blood cultures negative so far He probably benefit from being diuresed once his renal function is back to baseline #Diabetes mellitus Victoza and metformin on hold NovoLog sliding scale increased to medium dose since sugars running around 299 this morning Follow-up Accu-Cheks 3 times a day at bedtime Follow-up hemoglobin A1c #Coronary artery disease status post CABG as well as AICD placement ACS ruled out with negative troponin and EKG Follow-up echocardiogram Cardiology consult with Dr. Sanchez(covered by Dr. Stephens over weekend) Continue aspirin, carvedilol, atorvastatin, dofetilide Holding lisinopril 5 mg daily given AK I CXR negative for ant any acute pathology #Right hip. Patient did have a hip replacement surgery done 2 years ago Waiting for Dr. Webb to see the patient Follow-up x-ray showed some loosening of the hardware #AK I Most likely secondary to dehydration Received IV fluids normal saline at 75 MLS per hour/ Labs not drwn this am. Will try to draw them now. Follow-up BEP in a.m. Avoid nephrotoxic agents for now Continue to hold lisinopril and resume in a.m. depending on BEP #BPH Continue on tamsulosin 0.4 mg daily #COPD Continue on Symbicort TRC nebs #LIAM on CPAP Continue on patient's home settings of CPAP -DVT prophylaxis Heparin 5000 international units 3 times a day subcutaneous - Diet Consistent carb with 2 g sodium restriction -Code Status Full code Problem List: 1. Cellulitis 2. S/P hip replacement Pain Ratin Pain Location: right hip Pain Goal: Pain 4 or less Pain Plan: tylenol Tomorrow's Labs & Rationales: cbc, bep as labs could not be done today infection, deshaun VENEGAS MD,CARLEEN 03/12/17 1108: Attending MD Review Statement Attending Statement Attending MD Statement: examined this patient, discuss w/resident/PA/K 9 POLICE OFFICER, agreed w/resident/PA/K 9 POLICE OFFICER, reviewed EMR data (avail), discussed with nursing, reviewed images, amended to note Attending Assessment/Plan: 70-vjee-icuxswyr obese gentleman with past medical history significant for type 2 diabetes mellitus, hypertension, hyperlipidemia, COPD, coronary artery disease status post CABG, ICM, obstructive sleep apnea on CPAP, and recurrent paroxysmal A. fib not on any anticoagulants currently was made admitted to the telemetry floor for UTI and lower extremity cellulitis. Patient was seen and examined on the bedside and reports he is doing fine. He reports that he has not been out of his home for the last 3 months and his nephew comes late at night. He has no one else to take care of him and wants his hair and nails to be cut. Patient reports that he has been taken off of the anticoagulants after putting the ICD device by Dr. Ortega years back. Cardiology is on board and has recommended for interrogation of his biventricular pacemaker/defibrillator, echocardiogram to assess his left ventricular function. His blood work is not yet back to assess his renal function since he was admitted with acute renal failure and is currently being treated with IV fluids and IV Unasyn. We will continue to hold his diuretics and josephine are less he comes out of his acute renal failure but will continue his beta blockers, statins,anti -platelets and antiarrhythmic medications. Besides orthopedic consult has been requested to evaluate the loosening of his right prosthesis, also needs a wound care consult for his lower extremity wounds and will consider a reactor kettle operator on his discharge. And she knew with deep VT prophylaxis.
--- NOTE | 2017-03-12 13:27 | PN- Cardiology ---
Subjective Subjective: The patient appears to be doing slightly better today. He still complains of leg discomfort. No new cardiac symptoms. Objective Vital Signs and I&Os Vital Signs Date Time Temp Pulse Resp B/P B/P Pulse O2 O2 Flow FiO2 Mean Ox Delivery Rate 03/12 1131 118/74 03/12 1131 118/74 03/12 0743 98.0 73 22 112/70 93 Room Air 03/12 0236 98.2 78 22 142/64 91 Room Air 03/11 2041 92 150/66 03/11 2040 92 150/66 03/11 1700 95 Room Air 03/11 1700 99.0 82 18 132/58 95 Room Air 03/11 1700 98.3 82 22 110/68 95 03/11 1346 98.2 88 138/84 Intake & Output 03/12 1600 03/12 0803/12 0000 03/11 1600 03/11 0803/11 0000 Intake Total 1020 688 Output Total 375 500 Balance 645 188 Intake, IV 620 188 Intake, Oral 400 500 Output, Urine 375 500 Patient 260 lb Weight Weight Reported by Patient Measurement Method Physical Exam: General Appearance Alert, Oriented X3, Cooperative, morbidly obese Skin Temp/Moisture Exam: Warm/Dry HEENT Atraumatic, PERRLA, EOMI, Mucous Membr. moist/pink Neck Supple, No JVD, No thryomegaly, +2 Carotid Pulse wo Bruit, No LAD Cardiovascular Normal S1, Normal S2, 1 to 2/6 systolic murmur Lungs Clear to Auscultation, Normal Air Movement Abdomen Normal Bowel Sounds, Soft, No Tenderness, has Neurological Normal Speech, Normal Tone, Sensation Intact, Cranial Nerves 3-12 NL Extremities b/l 3+ edema with chronic venous stasis canges, legs remain wrapped with obvious weeping. Current Medications: Current Medications Sig/Buck Start time Last Medication Dose Route Stop Time Status Admin Ampicillin Sodium/ 3,000 MG Q6 03/11 1800 AC 03/12 Sulbactam Sodium IV 1132 Sodium Chloride 100 ML Aspirin Buffered 81 MG DAILY 03/11 1338 AC 03/12 PO 113 Atorvastatin Calcium 10 MG 1700 03/11 1700 AC 03/11 PO 204 Budesonide/ 2 PUF BID 03/11 1339 AC 03/12 Formoterol Fumarate INH 1132 Carvedilol 6.25 MG BID 03/11 1338 AC 03/12 PO 1131 Dofetilide 500 MCG BID 03/11 2200 AC 03/12 PO 1131 Fish Oil 1,050 MG DAILY 03/11 1340 AC 03/12 PO 1132 Heparin Sodium 5,000 UNIT Q8 03/11 1503 AC 03/12 (Porcine) SC 0635 Insulin Aspart 0 TIDAC 03/11 1700 AC 03/12 SC 1144 Magnesium Chloride 64 MG DAILY 03/12 1000 AC 03/12 PO 1132 Sodium Chloride 1,000 ML Q13H 03/11 1415 DC 03/11 IV 03/12 0314 2033 Tamsulosin HCl 0.4 MG DAILY 03/11 1341 AC 03/12 PO 1131 Vitamin E 400 IU DAILY 03/11 1341 AC 03/12 PO 1131 Results Last 48 Hrs of Labs/Mics: Laboratory Tests 03/11/17 2335: Troponin I 0.03 03/11/17 1810: Troponin I 0.02 03/11/17 1117: Urine Color YEL, Urine Clarity CLDY H, Urine pH 5.5, Ur Specific [place] 1.025, Urine Protein 100 H, Urine Ketones 15 H, Urine Nitrite NEG, Urine Bilirubin NEG, Urine Urobilinogen 0.2, Ur Leukocyte Esterase MOD H, Ur Microscopic SEDIMENT EXAMINED, Urine RBC 15-25 H, Urine WBC PACKD H, Ur Epithelial Cells FEW, Urine Bacteria FEW H, Urine Hemoglobin LARGE H, Urine Glucose >=1000 H 03/11/17 0935: Anion Gap 16, Estimated GFR 46 L, BUN/Creatinine Ratio 16.0, Glucose 293 H, Hemoglobin A1c Pending, Calcium 10.2, Total Bilirubin 1.3, AST 26, ALT 26, Alkaline Phosphatase 65, Troponin I 0.03, Lsg-I-Fvjxykcbwgl Pept 527 H, Total Protein 7.0, Albumin 4.3, Globulin 2.7, Albumin/Globulin Ratio 1.6, PT 12.1, INR 1.15, APTT 25, CBC w Diff NO MAN DIFF REQ, RBC 5.00, MCV 88.8, MCH 29.4, RDW 14.7 H, MPV 9.2, Gran % 79.9 H, Lymphocytes % 14.8 L, Monocytes % 5.0, Eosinophils % 0, Basophils % 0.3, Absolute Granulocytes 12.2 H, Absolute Lymphocytes 2.3, Absolute Monocytes 0.8 H, Absolute Eosinophils 0, Absolute Basophils 0, PUBS MCHC 33.1 Assessment/Plan Assessment/Plan Assessment: 1. Lower extremity cellulitis with significant bilateral lower extremity edema, swelling, and weeping wounds. 2. Bilateral lower extremity venous insufficiency 3. Diabetes 4. History of coronary artery disease, status post bypass surgery and AICD placement 5. Acute renal insufficiency 6. History of right hip replacement 7. History of COPD 8. History of sleep apnea Recommendations: -Continue current management. -Continue diuresis -Continue to monitor her intakes, outputs, daily weights. -Follow-up laboratories pending -Continue conservative measures including right elevation, leg wraps, etc.
[2017-03-12 15:14] VITALS: BP 122/58
[2017-03-12 15:45] LABS: ABSOLUTE BASOPHIL COUNT 0.1 /CUMM (0.0-0.2); ABSOLUTE EOSINOPHIL COUNT 0.2 /CUMM (0.0-0.7); ABSOLUTE LYMPH COUNT 2.9 /CUMM (1.2-3.4); BASOPHIL % 0.8 % (0.0-2.0); EOSINOPHIL % 1.8 % (0-5); GRANULOCYTE % 65.7 % (42.2-75.2); HEMATOCRIT 40.7 % (42-52); MEAN CORPUSCULAR HGB 29.8 PG (27.0-31.0); MEAN CORPUSCULAR HGB CONC 33.6 G/DL (33.0-37.0); MEAN CORPUSCULAR VOLUME 88.7 FL (80.0-94.0); MEAN PLATELET VOLUME 8.4 FL (7.4-10.4); PLATELET COUNT 140 /CUMM (130-400); RBC DISTRIBUTION WIDTH 14.7 % (11.5-14.5); RED BLOOD CELL CT 4.58 /CUMM (4.70-6.10); WHITE BLOOD CELL COUNT 12.2 /CUMM (4.8-10.8)
[2017-03-12 22:40] VITALS: BP 126/50
[2017-03-13 03:05] VITALS: BP 112/60
[2017-03-13 07:16] VITALS: BP 120/64
[2017-03-13 08:10] LABS: ABSOLUTE BASOPHIL COUNT 0 /CUMM (0.0-0.2); ABSOLUTE EOSINOPHIL COUNT 0.3 /CUMM (0.0-0.7); ABSOLUTE GRANULOCYTE CT 7.6 /CUMM (1.4-6.5); ABSOLUTE LYMPH COUNT 3.7 /CUMM (1.2-3.4); ABSOLUTE MONOCYTE COUNT 0.8 /CUMM (0.10-0.60); BASOPHIL % 0.4 % (0.0-2.0); EOSINOPHIL % 2.7 % (0-5); GRANULOCYTE % 60.8 % (42.2-75.2); HEMATOCRIT 43.5 % (42-52); MEAN CORPUSCULAR HGB 29.9 PG (27.0-31.0); MEAN CORPUSCULAR HGB CONC 33.4 G/DL (33.0-37.0); MEAN CORPUSCULAR VOLUME 89.5 FL (80.0-94.0); MEAN PLATELET VOLUME 8.6 FL (7.4-10.4); PLATELET COUNT 146 /CUMM (130-400); RBC DISTRIBUTION WIDTH 15.2 % (11.5-14.5); RED BLOOD CELL CT 4.86 /CUMM (4.70-6.10); WHITE BLOOD CELL COUNT 12.5 /CUMM (4.8-10.8)
--- NOTE | 2017-03-13 08:48 | PN- Cardiology ---
Subjective Subjective: Clinically the patient is doing okay. He denies any new symptoms or issues. Overall, he feels slightly better today. He continues to have difficulty keeping his legs elevated. The left leg shows significant weeping through the bandages. Objective Vital Signs and I&Os Vital Signs Date Time Temp Pulse Resp B/P B/P Pulse O2 O2 Flow FiO2 Mean Ox Delivery Rate 03/13 0837 120/64 03/13 0836 120/64 03/13 0716 98.4 64 18 120/64 93 Room Air 03/13 0318 59 96 03/13 0305 69 22 112/60 91 CPAP 03/13 0120 72 96 03/13 0000 96 CPAP 2.0L 03/12 2240 98.2 69 18 126/50 93 Room Air 03/12 2232 67 95 03/12 2147 78 126/80 03/12 1514 98.6 70 20 122/58 92 Room Air 03/12 1131 118/74 03/12 1131 118/74 Intake & Output 03/13 1600 03/13 0800 03/13 0000 / 1600 03/12 0800 03/12 0000 Intake Total 200 980 208 0967 688 Output Total 675 663 9156 375 500 Balance -350 50 -575 645 188 Intake, IV 620 188 Intake, Oral 200 600 600 400 500 Output, Urine 419 040 9185 375 500 Patient 260 lb Weight Weight Reported by Patient Measurement Method Physical Exam: General Appearance Alert, Oriented X3, Cooperative, morbidly obese Skin Temp/Moisture Exam: Warm/Dry HEENT Atraumatic, PERRLA, EOMI, Mucous Membr. moist/pink Neck Supple, No JVD, No thryomegaly, +2 Carotid Pulse wo Bruit, No LAD Cardiovascular Normal S1, Normal S2, 1 to 2/6 systolic murmur Lungs Clear to Auscultation, Normal Air Movement Abdomen Normal Bowel Sounds, Soft, No Tenderness, has Neurological Normal Speech, Normal Tone, Sensation Intact, Cranial Nerves 3-12 NL Extremities b/l 3+ edema with chronic venous stasis canges, legs remain wrapped with obvious weeping. Current Medications: Current Medications Sig/Buck Start time Last Medication Dose Route Stop Time Status Admin Acetaminophen 650 MG Q6P PRN 03/12 2100 AC PO Acetaminophen/ 1 TAB Q6P PRN 03/12 2100 AC 03/13 Hydrocodone Bitart PO 0551 Ampicillin Sodium/ 3,000 MG Q6 03/11 1800 AC 03/13 Sulbactam Sodium IV 0550 Sodium Chloride 100 ML Aspirin Buffered 81 MG DAILY 03/11 1338 AC 03/13 PO 0836 Atorvastatin Calcium 10 MG 1700 03/11 1700 AC 03/12 PO 1641 Budesonide/ 2 PUF BID 03/11 1339 AC 03/13 Formoterol Fumarate INH 0840 Carvedilol 6.25 MG BID 03/11 1338 AC 03/13 PO 0837 Docusate Sodium 100 MG DAILY 03/13 1000 AC 03/13 PO 0836 Dofetilide 500 MCG BID 03/11 2200 AC 03/13 PO 0836 Fish Oil 1,050 MG DAILY 03/11 1340 AC 03/13 PO 0836 Heparin Sodium 5,000 UNIT Q8 03/11 1503 AC 03/13 (Porcine) SC 0550 Insulin Aspart 0 TIDAC/HS 03/13 0800 CAN SC Insulin Aspart 10 UNITS ONE TIME ONE 03/12 2200 DC 03/12 SC 03/12 2201 2201 Insulin Aspart 0 TIDAC 03/11 1700 AC 03/13 SC 0837 Magnesium Chloride 64 MG DAILY 03/12 1000 AC 03/13 PO 0836 Morphine Sulfate 2 MG Q4P PRN 03/12 2100 AC IV Polyethylene Glycol 17 GM DAILY PRN 03/13 0330 AC PO Senna 187 MG AT BEDTIME 03/13 2200 AC PO Tamsulosin HCl 0.4 MG DAILY 03/11 1341 AC 03/13 PO 0836 Vitamin E 400 IU DAILY 03/11 1341 AC 03/13 PO 0836 Zinc Oxide 1 GENE BID 03/12 2200 AC 03/13 TOP 0837 Results Last 48 Hrs of Labs/Mics: Laboratory Tests 03/13/17 0730: Anion Gap 11, Estimated GFR > 60, BUN/Creatinine Ratio 23.3, CBC w Diff Pending, WBC Pending, RBC Pending, Hgb Pending, Hct Pending, MCV Pending, MCH Pending, RDW Pending, Plt Count Pending, MPV Pending, PUBS MCHC Pending 03/12/17 1536: Anion Gap 11, Estimated GFR > 60, BUN/Creatinine Ratio 23.0, Magnesium 1.8, Troponin I 0.02, CBC w Diff NO MAN DIFF REQ, RBC 4.58 L, MCV 88.7, MCH 29.8, RDW 14.7 H, MPV 8.4, Gran % 65.7, Lymphocytes % 23.8, Monocytes % 7.9, Eosinophils % 1.8, Basophils % 0.8, Absolute Granulocytes 8.0 H, Absolute Lymphocytes 2.9, Absolute Monocytes 1.0 H, Absolute Eosinophils 0.2, Absolute Basophils 0.1, PUBS MCHC 33.6 03/11/17 2335: Troponin I 0.03 03/11/17 1810: Troponin I 0.02 03/11/17 1117: Urine Color YEL, Urine Clarity CLDY H, Urine pH 5.5, Ur Specific [place] 1.025, Urine Protein 100 H, Urine Ketones 15 H, Urine Nitrite NEG, Urine Bilirubin NEG, Urine Urobilinogen 0.2, Ur Leukocyte Esterase MOD H, Ur Microscopic SEDIMENT EXAMINED, Urine RBC 15-25 H, Urine WBC PACKD H, Ur Epithelial Cells FEW, Urine Bacteria FEW H, Urine Hemoglobin LARGE H, Urine Glucose >=1000 H 03/11/17 0935: Anion Gap 16, Estimated GFR 46 L, BUN/Creatinine Ratio 16.0, Glucose 293 H, Hemoglobin A1c Pending, Calcium 10.2, Total Bilirubin 1.3, AST 26, ALT 26, Alkaline Phosphatase 65, Troponin I 0.03, Vhm-H-Pfreavjorch Pept 527 H, Total Protein 7.0, Albumin 4.3, Globulin 2.7, Albumin/Globulin Ratio 1.6, PT 12.1, INR 1.15, APTT 25, CBC w Diff NO MAN DIFF REQ, RBC 5.00, MCV 88.8, MCH 29.4, RDW 14.7 H, MPV 9.2, Gran % 79.9 H, Lymphocytes % 14.8 L, Monocytes % 5.0, Eosinophils % 0, Basophils % 0.3, Absolute Granulocytes 12.2 H, Absolute Lymphocytes 2.3, Absolute Monocytes 0.8 H, Absolute Eosinophils 0, Absolute Basophils 0, PUBS MCHC 33.1 Assessment/Plan Assessment/Plan Assessment: 1. Lower extremity cellulitis with significant bilateral lower extremity edema, swelling, and weeping wounds. 2. Bilateral lower extremity venous insufficiency 3. Diabetes 4. History of coronary artery disease, status post bypass surgery and AICD placement 5. Acute renal insufficiency 6. History of right hip replacement 7. History of COPD 8. History of sleep apnea Recommendations: -Continue current management. -Continue recommendations as per Dr. Sanchez. -Since the patient's creatinine has normalized, I would try to maintain a mildly negative fluid balance in the hopes of improving his lower extremity edema with close monitoring of his intakes, outputs, daily weights, and daily laboratories. -Follow-up laboratories in the morning. -Echo cardiac gram pending. Continue telemetry? Yes
--- NOTE | 2017-03-13 09:42 | PN- Housestaff ---
CARLOS EDUARDOKACIE 03/13/17 0935: Subjective Follow-up For: Cellulitis of the setting of bilateral lower extremity swelling and wounds Diabetes mellitus Right hip pain Complaints: right hip pain Tele-Events Since Last Visit: Single pacing, sinus rhythm, had a 7 beat run at around 2:44 AM. Patient was asymptomatic. First-degree heart block with heart rate from 64-69 Subjective: He is doing good this morning. Still continues to have the right hip pain due to loosening of hardware. Had a 3 beat run at around 2:44 AM with no symptoms. Hasn't been seen by orthopedic yet. No fevers overnight. Vital stable. Review of Systems Constitutional: Reports: weakness. EENTM: Reports: no symptoms. Cardiovascular: Reports: no symptoms. Respiratory: Reports: no symptoms. Gastrointestinal: Reports: no symptoms. Genitourinary: Reports: no symptoms. Musculoskeletal: Reports: joint pain, joint swelling. Skin: Reports: change in skin color, change in hair/nails. Neurological/Psychological: Reports: no symptoms. Objective Last 24 Hrs of Vital Signs/I&O Vital Signs Date Time Temp Pulse Resp B/P B/P Pulse O2 O2 Flow FiO2 Mean Ox Delivery Rate 03/13 0837 120/64 03/13 0836 120/64 / 0716 98.4 64 18 120/64 93 Room Air 03/13 0318 59 96 03/13 0305 69 22 112/60 91 CPAP 03/13 0120 72 96 07/ 0000 96 CPAP 2.0L 03/12 2240 98.2 69 18 126/50 93 Room Air 03/12 2232 67 95 /08 2147 78 126/80 03/12 1514 98.6 70 20 122/58 92 Room Air 03/12 1131 118/74 08 1131 118/74 Intake & Output 03/13 1600 03/13 0800 07/ 0000 Intake Total 200 600 Output Total 550 550 Balance -350 50 Intake, Oral 200 600 Output, Urine 550 550 Physical Exam General Appearance: Alert, Oriented X3, Cooperative, No Acute Distress Skin: bandages in both lower extremities., poor mota and feet hygine Skin Temp/Moisture Exam: Warm/Dry Sepsis Skin Exam (color): Normal for Ethnicity HEENT: Atraumatic, PERRLA, EOMI Neck: Supple, No JVD Lymphatic: Cervical nl Cardiovascular: Regular Rate, Normal S1, Normal S2, systolic murmur Lungs: Clear to Auscultation, Normal Air Movement Abdomen: Normal Bowel Sounds, Soft, No Tenderness Neurological: Normal Speech, Normal Tone Extremities: 2+ edema with chronic venous stasis changes. Wounds with bandages over bilateral feet. Unkept nails and skin appears dry. Vascular: Normal Pulses Assessment/Plan Assessment: 76-year-old male with a past medical history of COPD, hyperlipidemia, diabetes mellitus, CAD s/p CABG in 2003 and AICD, BPH, LIAM, occult GI bleed, who presents to us with c/o wekaness, and leg swelling. #Cellulitis of the setting of bilateral lower extremity swelling and wounds Most likely secondary to chronic venous stasis changes with superimposed cellulitis Dopplers negative for DVT Unasyn IV day 3 of antibiotic Wound care following the patient Blood cultures negative so far Will require wound care and podiatric for taking care of his feet. #Diabetes mellitus Victoza and metformin on hold NovoLog sliding scale increased to medium dose since sugars running around 299 this morning Follow-up Accu-Cheks 3 times a day at bedtime Follow-up hemoglobin A1c #Coronary artery disease status post CABG as well as AICD placement ACS ruled out with negative troponin and EKG Follow-up echocardiogram Cardiology consult with Dr. Sanchez(covered by Dr. Stephens over weekend) Continue aspirin, carvedilol, atorvastatin, dofetilide Holding lisinopril 5 mg daily given AK I CXR negative for ant any acute pathology #Right hip pain. Patient did have a hip replacement surgery done 2 years ago Waiting for Dr. Webb to see the patient Follow-up x-ray showed some loosening of the hardware #AK I: Resolved Most likely secondary to dehydration Received IV fluids. Creatinin eimproved to 0.9 Avoid nephrotoxic agents for now Will resume Lisinopril today #BPH Continue on tamsulosin 0.4 mg daily #COPD Continue on Symbicort TRC nebs #LIAM on CPAP Continue on patient's home settings of CPAP -DVT prophylaxis Heparin 5000 international units 3 times a day subcutaneous - Diet Consistent carb with 2 g sodium restriction -Code Status Full code Problem List: 1. S/P hip replacement 2. Cellulitis Pain Ratin Pain Location: right hip Pain Goal: Remain pain free Pain Plan: PRN TYLENOL Tomorrow's Labs & Rationales: MELIZA VENEGAS MD,CARLEEN 03/13/17 1004: Attending MD Review Statement Attending Statement Attending MD Statement: examined this patient, discuss w/resident/PA/CAN DRYER, agreed w/resident/PA/CAN DRYER, reviewed EMR data (avail), discussed with nursing, reviewed images, amended to note Attending Assessment/Plan: [id number] obese gentleman with past medical history significant for type 2 diabetes mellitus, hypertension, hyperlipidemia, COPD, coronary artery disease status post CABG, ICM, obstructive sleep apnea on CPAP, and recurrent paroxysmal A. fib not on any anticoagulants currently was made admitted to the telemetry floor for UTI and lower extremity cellulitis. Patient was seen and examined on the bedside and reports he is doing fine. He reports that he has not been out of his home for the last 3 months and his nephew comes late at night. He has no one else to take care of him and wants his hair and nails to be cut. Patient reports that he has been taken off of the anticoagulants after putting the ICD device by Dr. Ortega years back. Cardiology is on board and has recommended for interrogation of his biventricular pacemaker/defibrillator, echocardiogram to assess his left ventricular function. His vitals seems stable. We will resume his antihypertensive medications since his acute renal failure has been resolved along with his beta blockers, statins, anti-platelets and antiarrhythmic medications. Besides orthopedic consult has been requested to evaluate the loosening of his right prosthesis, also needs a wound care consult for his lower extremity wounds and will consider a riveting machine operator automatic on his discharge. Keep the patient on DVT prophylaxis.
[2017-03-13 15:43] VITALS: BP 124/70
[2017-03-13 21:45] VITALS: BP 140/64
--- NOTE | 2017-03-14 06:46 | PN- Housestaff ---
TYLER LOPEZ 03/14/17 0646: Subjective Follow-up For: Cellulitus Right hip pain LE edema Complaints: pain scale (0-10) Tele-Events Since Last Visit: NSR, first degree AVB HR 60s-70s PVCs Subjective: Patient states he has R hip pain rated 10/10 during movement. Pain managed with Vicodin. Review of Systems Constitutional: Reports: see HPI. Objective Last 24 Hrs of Vital Signs/I&O Vital Signs Date Time Temp Pulse Resp B/P B/P Pulse O2 O2 Flow FiO2 Mean Ox Delivery Rate 03/14 1037 136/60 03/14 1037 136/60 03/14 1037 136/60 03/14 0719 99.0 69 18 136/60 93 Room Air 03/14 0055 73 94 03/14 0000 CPAP 03/13 2215 98.9 72 18 140/64 03/13 2145 98.9 72 18 140/64 93 Room Air 03/13 1543 98.9 69 20 124/70 93 03/13 1211 116/70 Intake & Output 03/14 1600 03/14 0800 03/14 0000 Intake Total 580 Output Total 500 200 Balance -500 380 Intake, IV 100 Intake, Oral 480 Number 1 Bowel Movements Output, Urine 500 200 Patient 281 lb Weight Weight Chair scale Measurement Method Physical Exam General Appearance: Alert, Oriented X3, Cooperative, No Acute Distress HEENT: Atraumatic, PERRLA Cardiovascular: Normal S1, Normal S2 Lungs: Clear to Auscultation, Normal Air Movement Abdomen: Normal Bowel Sounds, Soft, No Tenderness Extremities: No Cyanosis, No Edema Current Medications: Current Medications Sig/Buck Start time Last Medication Dose Route Stop Time Status Admin Acetaminophen 650 MG Q6P PRN 03/12 2100 AC PO Acetaminophen/ 1 TAB Q6P PRN 03/12 2100 AC 03/14 Hydrocodone Bitart PO 1041 Ampicillin Sodium/ 3,000 MG Q6 03/11 1800 AC 03/14 Sulbactam Sodium IV 0557 Sodium Chloride 100 ML Aspirin Buffered 81 MG DAILY 03/11 1338 AC 03/14 PO 1037 Atorvastatin Calcium 10 MG 1700 03/11 1700 AC 03/13 PO 1602 Budesonide/ 2 PUF BID 03/11 1339 AC 03/14 Formoterol Fumarate INH 1036 Carvedilol 6.25 MG BID 03/11 1338 AC 03/14 PO 1037 Docusate Sodium 100 MG DAILY 03/13 1000 AC 03/14 PO 1037 Dofetilide 500 MCG BID 03/11 2200 AC 03/14 PO 1036 Fish Oil 1,050 MG DAILY 03/11 1340 AC 03/14 PO 1037 Heparin Sodium 5,000 UNIT Q8 03/11 1503 AC 03/14 (Porcine) SC 0557 Insulin Aspart 0 TIDAC 03/11 1700 AC 03/14 SC 0836 Lisinopril 5 MG DAILY 03/13 1047 AC 03/14 PO 1037 Magnesium Chloride 64 MG DAILY 03/12 1000 AC 03/14 PO 1037 Morphine Sulfate 2 MG Q4P PRN 03/12 2100 AC IV Polyethylene Glycol 17 GM DAILY PRN 03/13 0330 AC PO Senna 187 MG AT BEDTIME 03/13 2200 AC 03/13 PO 2214 Tamsulosin HCl 0.4 MG DAILY 03/11 1341 AC 03/14 PO 1037 Vitamin E 400 IU DAILY 03/11 1341 AC 03/14 PO 1037 Zinc Oxide 1 GENE BID 03/12 2200 03/14 [facility] 1042 Last 24 Hrs of Lab/Les Results Last 24 Hrs of Labs/Mics: Laboratory Tests 03/14/17 0720: Anion Gap 10, Estimated GFR > 60, BUN/Creatinine Ratio 23.0, CBC w Diff NO MAN DIFF REQ, RBC 4.56 L, MCV 89.4, MCH 29.4, RDW 14.7 H, MPV 9.4, Gran % 58.6, Lymphocytes % 30.0, Monocytes % 8.0, Eosinophils % 2.9, Basophils % 0.5, Absolute Granulocytes 6.8 H, Absolute Lymphocytes 3.5 H, Absolute Monocytes 0.9 H, Absolute Eosinophils 0.3, Absolute Basophils 0.1, PUBS MCHC 32.9 L Orders Radiology Findings: CXR negative Assessment/Plan Assessment: 76-year-old male with a past medical history of COPD, hyperlipidemia, diabetes mellitus, CAD s/p CABG in 2004 and AICD, BPH, LIAM, occult GI bleed, who presents to us with c/o wekaness, and leg swelling. 1. Cellulitis of bilateral lower extremity swelling and wounds * Dopplers negative for DVT * Unasyn IV day 4 of antibiotic * Wound care following the patient * Blood cultures negative * Podiatric consulted 2. Diabetes mellitus, Halc 8.7 * Victoza and metformin on hold * NovoLog sliding scale increased to medium dose since sugars running around 299 this morning * Continue Accu-Cheks 3. Coronary artery disease status post CABG as well as AICD placement * ACS ruled out with negative troponin and EKG * Echo pending * Continue aspirin, carvedilol, atorvastatin, dofetilide * Lisinopril restarted, resolved USMAN * CXR negative for ant any acute pathology 4. Right hip pain, S/P prothesis 2 yrs ago * Waiting for Dr. Webb to see the patient * Follow-up x-ray showed some loosening of the hardware * PT recommends STR 5. USMAN: Resolved * Received IV fluids. * Creatinin improved to 0.9 * Lisinopril restarted 6. BPH * Continue on tamsulosin 0.4 mg daily 7. COPD * Continue on Symbicort * TRC nebs 8. LIAM on CPAP * Continue CPAP -DVT prophylaxis Heparin 5000 international units 3 times a day subcutaneous - Diet Consistent carb with 2 g sodium restriction -Code Status Full code Problem List: 1. CAD (coronary artery disease) 2. LIAM (obstructive sleep apnea) 3. BPH (benign prostatic hyperplasia) 4. Diabetes mellitus 5. Afib 6. S/P hip replacement 7. Cellulitis Pain Ratin Pain Location: Right hip Pain Goal: Pain 4 or less Pain Plan: Vicodin Tomorrow's Labs & Rationales: None JOURDAN SARAH 03/14/17 0930: Attending MD Review Statement Attending Statement Attending MD Statement: examined this patient, discuss w/resident/PA/FORENSIC PATHOLOGIST, agreed w/resident/PA/FORENSIC PATHOLOGIST, discussed with family, reviewed EMR data (avail), discussed with nursing, discussed with case mgmt, reviewed images, amended to note Attending Assessment/Plan: [id number] obese gentleman with past medical history significant for type 2 diabetes mellitus, hypertension, hyperlipidemia, COPD, coronary artery disease status post CABG, ICM, obstructive sleep apnea on CPAP, and recurrent paroxysmal A. fib not on any anticoagulants 2/2 GI bleed admitted to [facility] for pacemaker interrogation, cardiology consulted. Patient started on i/v unasyn for cellulitis, Orthopedics awaited for right hip pain, PT eval for d/c planning.
[2017-03-14 07:19] VITALS: BP 136/60
[2017-03-14 09:33] LABS: ABSOLUTE BASOPHIL COUNT 0.1 /CUMM (0.0-0.2); ABSOLUTE EOSINOPHIL COUNT 0.3 /CUMM (0.0-0.7); ABSOLUTE GRANULOCYTE CT 6.8 /CUMM (1.4-6.5); ABSOLUTE LYMPH COUNT 3.5 /CUMM (1.2-3.4); ABSOLUTE MONOCYTE COUNT 0.9 /CUMM (0.10-0.60); BASOPHIL % 0.5 % (0.0-2.0); EOSINOPHIL % 2.9 % (0-5); HEMATOCRIT 40.8 % (42-52); MEAN CORPUSCULAR HGB 29.4 PG (27.0-31.0); MEAN CORPUSCULAR HGB CONC 32.9 G/DL (33.0-37.0); MEAN CORPUSCULAR VOLUME 89.4 FL (80.0-94.0); MEAN PLATELET VOLUME 9.4 FL (7.4-10.4); RBC DISTRIBUTION WIDTH 14.7 % (11.5-14.5); RED BLOOD CELL CT 4.56 /CUMM (4.70-6.10); WHITE BLOOD CELL COUNT 11.7 /CUMM (4.8-10.8)
[2017-03-14 10:16] LABS: GRANULOCYTE % 58.6 % (42.2-75.2); PLATELET COUNT 143 /CUMM (130-400)
[2017-03-14] MEDS ORDERED: AUGMENTIN 875-1 EACH PO (11:09)
--- NOTE | 2017-03-14 11:12 | Patient Discharge Instructions ---
Discharge Instructions General Discharge Information You were seen/treated for: B/L lower extremity Cellulitus Lower extremity edema Right hip pain status post-hip aspiration right hip prosthesis infection-cultures growing enterococcus You had these procedures: Right hip aspiration Watch for these problems: hip pain Fever, chills Worsening lower extremity edema Bilateral lower extremity pain Special Instructions: Follow up with Dr. Young within 1 week after discharge. please schedule appointment with Dr. Webb as soon as possible. Please also follow up with Dr. Webb regarding hip surgery. Please take antibiotics IV ampicillin 2 g IV every 6 hours for 6 weeks until May 04. Continue with your antibiotics for 6 weeks through PICC line Follow-up with infectious disease doctor within 2 weeks after discharge Follow up with podiatry outpatient within 1-2 weeks after discharge Follow up with [employer] within 1-2 weeks after discharge. Take water pill for lower extremity swelling. Please follow-up with your primary care physician within one week after discharge Diet Continue normal diet: No Recommended Diet: Diabetic, Heart Healthy Activity Activity Self Limited: Yes Acute Coronary Syndrome Inclusion Criteria At DC or during hospital stay patient has or had the following: ACS DIAGNOSIS No Discharge Core Measures Meds if any: Prescribed or Continued at Discharge Meds if any: NOT Prescribed or Continued at Discharge Congestive Heart Failure Inclusion Criteria At DC or during hospital stay patient has or had the following: CHF DIAGNOSIS No Discharge Core Measures Meds if any: Prescribed or Continued at Discharge Meds if any: NOT Prescribed or Continued at Discharge Cerebrovascular accident Inclusion Criteria At DC or during hospital stay patient has or had the following: CVA/TIA Diagnosis No Discharge Core Measures Meds if any: Prescribed or Continued at Discharge Meds if any: NOT Prescribed or Continued at Discharge Venous thromboembolism Inclusion Criteria VTE Diagnosis No VTE Type NONE VTE Confirmed by (Test) NONE Discharge Core Measures - Per Current guidelines, there needs to be overlap - treatment for the first 5 days of Warfarin therapy. - If discharged on Warfarin prior to 5 days of - overlap therapy, the patient will need to be - assessed for post discharge needs including - *Post discharge parental anticoagulation - *Warfarin and/or parental anticoagulation education - *Follow up date to check INR post discharge At least 5 days overlap therapy as Inpatient No Meds if any: Prescribed or Continued at Discharge Note: Overlap Therapy is Warfarin and Anticoagulant Meds if any: NOT Prescribed or Continued at Discharge
--- NOTE | 2017-03-14 11:25 | Discharge Summary ---
Visit Information Visit Dates Admission Date: 03/11/17 Discharge Date: 03/15/17 Hospital Course Course Attending Physician: MAYRA AGUILAR MD Primary Care Physician: JUAN CHAUDHRY MD Allergies: Coded Allergies: NO KNOWN ALLERGIES (03/22/12) NKA PER DIPYRIDAMOLE ORDER SHEET - SJS Disposition Summary Disposition Principal Diagnosis: Cellulitus Additional Diagnosis: Right hip pain Discharge Disposition: STR Discharge Instructions General Discharge Information Code Status: Full Code Patient's Diet: Low carb diet Patient's Activity: As tolerated Follow-Up Instructions/Appts: Follow up with Dr. King within 1 week after discharge Follow up with podiatry outpatient within 1-2 weeks after discharge Follow up with [employer] within 1-2 weeks after discharge Complete oral antibiotics for 5 days Medications at Discharge Discharge Medications: Continue taking these medications: Metformin HCl (Metformin HCl) 500 MG TABLET 1 Tablet ORAL TWICE DAILY Fluticasone-Salmeterol (Advair 100-50 Diskus) 100 MCG-50 MCG/DOSE BLST.W.DEV 1 Puff Inhale through mouth TWICE DAILY Aspirin (Ecotrin*) 81 MG TABLET.DR 1 Tablet ORAL DAILY Simvastatin (Zocor*) 10 MG TABLET 1 Tablet ORAL Every night [place]-3/Dha/Epa/Fish Oil (Fish Oil 500 MG Softgel) 60 MG-90 MG-500 MG CAPSULE 1 Capsule ORAL DAILY Carvedilol (Carvedilol) 6.25 MG TABLET 1 Tablet ORAL TWICE DAILY Tamsulosin HCl (Flomax) 0.4 MG CAP.ER.24H 1 Capsule ORAL DAILY Liraglutide (Victoza 3-Myles) 0.6 MG/0.1 ML (18 MG/3 ML) PEN.INJCTR 1.2 Milligram Inject into fatty tissue DAILY Magnesium Gluconate (Mag-G) 27 MG (500 MG) TABLET 1 Tablet ORAL TUESDAY, TUESDAY AND TUESDAY Vitamin E Acetate (Vitamin E) 400 UNIT CAPSULE 1 Capsule ORAL TWICE DAILY Lisinopril (Prinivil) 5 MG TABLET 1 Tablet ORAL DAILY Dofetilide (Dofetilide) 500 MCG CAPSULE 1 Capsule ORAL TWICE DAILY Qty = 180 Start taking the following new medications: Amoxicillin/Potassium Clav (Augmentin 875-125 Tablet) 875 MG-125 MG TABLET 1 Tablet ORAL TWICE DAILY Qty = 10 No Refills Copies To: JAVED KING MD; ISIDORO RODRÍGUEZ,JUAN Cornejo
--- NOTE | 2017-03-14 12:02 | PN- Cardiology ---
Subjective Subjective: Feels improved today, awaiting evaluation by orthopedic surgery and AICD interrogation. Continues to have cellulitis, bilateral lower extremity edema with weeping (left > right). Objective Vital Signs and I&Os Vital Signs Date Time Temp Pulse Resp B/P B/P Pulse O2 O2 Flow FiO2 Mean Ox Delivery Rate 03/14 1037 136/60 / 1037 136/60 03/14 1037 136/60 03/14 0719 99.0 69 18 136/60 93 Room Air 03/14 0055 73 94 03/14 0000 CPAP 03/13 2215 98.9 72 18 140/64 03/13 2145 98.9 72 18 140/64 93 Room Air 03/13 1543 98.9 69 20 124/70 93 03/13 1211 116/70 Intake & Output 03/14 1600 03/14 0800 03/14 0000 03/13 1600 03/13 0803/13 0000 Intake Total 580 240 200 600 Output Total 500 200 325 550 550 Balance -500 380 -85 -350 50 Intake, IV 100 Intake, Oral 480 240 200 600 Number 1 Bowel Movements Output, Urine 500 200 325 550 550 Patient 281 lb 236 lb Weight Weight Chair scale Chair scale Measurement Method Physical Exam: Morbidly obese, elderly male in no acute distress or Vital signs: See above. Lungs: Clear to auscultation. Heart: S1, S2. Abdomen: Soft, nontender, positive bowel sounds. Extremities: Bilateral lower extremity edema 3+ with weeping through bandages L> R. Current Medications: Current Medications Sig/Buck Start time Last Medication Dose Route Stop Time Status Admin Acetaminophen 650 MG Q6P PRN 03/12 2100 AC PO Acetaminophen/ 1 TAB Q6P PRN 03/12 2100 AC 03/14 Hydrocodone Bitart PO 1041 Ampicillin Sodium/ 3,000 MG Q6 03/11 1800 AC 03/14 Sulbactam Sodium IV 0557 Sodium Chloride 100 ML Aspirin Buffered 81 MG DAILY 03/11 1338 AC 03/14 PO 1037 Atorvastatin Calcium 10 MG 1700 03/11 1700 AC 03/13 PO 1602 Budesonide/ 2 PUF BID 03/11 1339 AC 03/14 Formoterol Fumarate INH 1036 Carvedilol 6.25 MG BID 03/11 1338 AC 03/14 PO 1037 Docusate Sodium 100 MG DAILY 03/13 1000 AC 03/14 PO 1037 Dofetilide 500 MCG BID 03/11 2200 AC 03/14 PO 1036 Fish Oil 1,050 MG DAILY 03/11 1340 AC 03/14 PO 1037 Heparin Sodium 5,000 UNIT Q8 03/11 1503 AC 03/14 (Porcine) SC 0557 Insulin Aspart 0 TIDAC 03/11 1700 AC 03/14 SC 0836 Lisinopril 5 MG DAILY 03/13 1047 AC 03/14 PO 1037 Magnesium Chloride 64 MG DAILY 03/12 1000 AC 03/14 PO 1037 Morphine Sulfate 2 MG Q4P PRN 03/12 2100 AC IV Polyethylene Glycol 17 GM DAILY PRN 03/13 0330 AC PO Senna 187 MG AT BEDTIME 03/13 2200 AC 03/13 PO 2214 Tamsulosin HCl 0.4 MG DAILY 03/11 1341 AC 03/14 PO 1037 Vitamin E 400 IU DAILY 03/11 1341 AC 03/14 PO 1037 Zinc Oxide 1 GENE BID 03/12 2200 03/14 TOP 1042 Results Last 48 Hrs of Labs/Mics: Laboratory Tests 03/14/17 0720: Anion Gap 10, Estimated GFR > 60, BUN/Creatinine Ratio 23.0, CBC w Diff NO MAN DIFF REQ, RBC 4.56 L, MCV 89.4, MCH 29.4, RDW 14.7 H, MPV 9.4, Gran % 58.6, Lymphocytes % 30.0, Monocytes % 8.0, Eosinophils % 2.9, Basophils % 0.5, Absolute Granulocytes 6.8 H, Absolute Lymphocytes 3.5 H, Absolute Monocytes 0.9 H, Absolute Eosinophils 0.3, Absolute Basophils 0.1, PUBS MCHC 32.9 L 03/13/17 0730: Anion Gap 11, Estimated GFR > 60, BUN/Creatinine Ratio 23.3, CBC w Diff MAN DIFF ORDERED, RBC 4.86, MCV 89.5, MCH 29.9, RDW 15.2 H, MPV 8.6, Gran % 60.8, Lymphocytes % 29.5, Monocytes % 6.6, Eosinophils % 2.7, Basophils % 0.4, Absolute Granulocytes 7.6 H, Segmented Neutrophils 50, Band Neutrophils 4, Absolute Lymphocytes 3.7 H, Lymphocytes 32, Monocytes 8, Absolute Monocytes 0.8 H, Eosinophils 2, Absolute Eosinophils 0.3, Basophils 1, Absolute Basophils 0, Metamyelocytes 3 H, Normocytic RBCs VERIFIED, Normochromic RBCs VERIFIED, PUBS MCHC 33.4 03/12/17 1536: Anion Gap 11, Estimated GFR > 60, BUN/Creatinine Ratio 23.0, Magnesium 1.8, Troponin I 0.02, CBC w Diff NO MAN DIFF REQ, RBC 4.58 L, MCV 88.7, MCH 29.8, RDW 14.7 H, MPV 8.4, Gran % 65.7, Lymphocytes % 23.8, Monocytes % 7.9, Eosinophils % 1.8, Basophils % 0.8, Absolute Granulocytes 8.0 H, Absolute Lymphocytes 2.9, Absolute Monocytes 1.0 H, Absolute Eosinophils 0.2, Absolute Basophils 0.1, PUBS MCHC 33.6 Assessment/Plan Assessment/Plan [id number] w/ hx of morbid obesity, LIAM on CPAP, COPD, HTN, HLD, DM, CAD/ICM (s/ p IMI in 1998, CABG 4 w/ WHITE to LAD and individual SVGs to Dx, OM, PDA & MAZE) , and recurrent PAF who presented in an unkempt state via ambulance after being discovered on the floor of his home several hours after he had fallen w/ findings of a UTI, bilateral lower extremity cellulitis, edema, etc. Recommendations: * Continue on telemetry w/ strict inputs/outputs and daily weights. * Interrogate BiV pacemaker/defibrillator (called). * Echocardiogram to reassess LV function, given her need for volume resuscitation. * Start diuretic therapy w/ improved renal function, in the hope of improving edema. * Continue beta guillermo, antiarrhythmic, antiplatelets, statin, CLARISA inhibitor, etc. * Follow-up on orthopedic surgery recommendations. * DVT prophylaxis. Continue telemetry? Yes
--- NOTE | 2017-03-14 13:42 | Discharge Summary ---
See Addendum Visit Information Visit Dates Admission Date: 03/11/17 Discharge Date: 03/24/2017 Hospital Course Course Attending Physician: MAYRA AGUILAR MD Primary Care Physician: JUAN CHAUDHRY MD Other Care Providers: dr. jl urrutia Consulting Request: 1 Consulting Specialty: Cardiology Consulting Request: 2 Consulting Specialty: Infectious Disease Consulting Request: 3 Consulting Specialty: Orthopedics Hospital Course: 76-year-old male with a past medical history of COPD, hyperlipidemia, diabetes mellitus, CAD s/p CABG in 2003 and AICD, BPH, LIAM, occult GI bleed, who presented to us with c/o wekaness, and leg swelling. Vitals on admission blood pressure 170/99, respiratory rate of 18, pulse 92 afebrile saturating 93% on room air. Labs pertinent for leukocytosis with a white blood cell count 15,300, H&H of 44.4/88.8, and a platelet count of 162,000. Serum chemistries revealed a sodium of 137, potassium of 4.7, bicarbonate of 20, anion gap of 16, BUN 24 with a creatinine of 1.5, He is 93. LFTs unremarkable with an AST/ALT of 26/26, total bili 1.3, alkaline phosphatase of 65. Troponin first set 0.03. ProBNP elevated to 527. INR of 1.15. UA was cloudy with proteinuria, ketonuria, moderate amount of leukocyte esterase, 15-25 RBCs with packed white blood cells, glucosuria. Dobutamine nuclear stress was done back in November 2014, which showed no clinical or electrocardiographic evidence of dobutamine induced myocardial ischemia. Echo done in October 2014 showed normal left ventricular size, abnormal septal motion consistent with hypokinetic septum, mildly reduced global left ventricular systolic function, abnormal left ventricular EF around 40-45% with stage I diastolic dysfunction EKG revealed ? Sinus rythm; HR: 78, T wave inversions in II, III, aVF, and V3-V6 (changed formo previous) Chest x-ray revealed presence of sternotomy wires, persistent AICD with leads overlying the cardiac silhouette, lungs clear with normal pulmonary vascularity. In the ER, he received IV Tylenol thousand milligrams x1, cefazolin 100 mg IV 1. Assesment and Plan Admit to Telemetry given EKG abnormailities. #Cellulitis of the setting of bilateral lower extremity swelling and wounds Most likely secondary to chronic venous stasis changes with superimposed cellulitis. Follow-up ultrasound Dopplers ruled out DVT. He remained afebrile with normal WBC count. He received Unasyn 3000 mg every 6 for anaerobic coverage for 7 days. wound Care was consulted and he received wound care. Follow up blood cultures were negative. Health Insurance Assessor on board. Recommended Lasix 20 mg daily for lower extremity swelling. #Diabetes mellitus Patient is on Victoza and metformin. We held his home medications and placed him on NovoLog sliding scale. Accu-Cheks tidac/hs. #Coronary artery disease status post CABG as well as AICD placement ACS was ruled out. Serial troponins and EKGs were negative. Cardiology was consulted. We continued aspirin, carvedilol, Lipitor, dovetail it. Echocardiogram was done. #Right hip pain s/p right hip prosthesis infection Patient did have a hip replacement surgery done 2 years ago. Surgery was performed by Dr. Zarco. Patient presented to ER with the right side hip pain. Follow-up hip x-ray showed some loosening of the hardware. Patient has pain with certain twisting activities. Incision area was well-healed without any erythema. He was taken to or on 03/15/2017 for hip aspiration to rule out any infection. Right hip aspiration performed. No joint fluid obtained, purulent or otherwise. A small amount of what appeared to be edith blood was obtained, likely induced by the aspiration needle itself. This was sent for culture. Culture showed enterococcus growth. Infectious diseases specialist and orthopedician on board. Dr. zarco recommended prosthetic removal and spacer implantation followed by six weeks of IV abx. After multiple conversation about the procedure and what the future of the hip is, the patient declined surgery in the holding area. He seemed very concerned about needing to be in rehab. We emphasized that prosthetic removal and spacer implantation followed by six weeks of IV abx is the standard of care for his problem. We also emphasized that his hip would not get better with antibiotics alone and that his hip could become a significant medical problem in the future. However patient declined surgery even after detailed discussion with infectious disease specialist, orthopedic doctor. Patient requested for second opinion regarding prosthesis removal surgery. Dallas Ramires MD was consulted. He recommended prosthetis removal and spacer implantation followed by 6 weeks of IV antibiotics. Finally patient decided to opt for surgery. He was discharged to rehabilitation on IV ampicillin 2 g every 6 hours for 6 weeks through PICC line. Meanwhile he will follow-up with ortho doctor liv as an outpatient and schedule his date for surgery. #AK I Most likely secondary to dehydration. He received IV fluids normal saline. Creatinine improved to 1 from 1.5. His home medication lisinopril was restarted once acute kidney injury was resolved. #BPH Continued on tamsulosin 0.4 mg daily #COPD Continued on Symbicort TRC nebs #LIAM on CPAP Continued on patient's home settings of CPAP DVT prophylaxis- Heparin 5000 international units 3 times a day subcutaneous Consistent carb with 2 g sodium restriction Full code Complications: none Allergies: Coded Allergies: NO KNOWN ALLERGIES (03/22/12) NKA PER DIPYRIDAMOLE ORDER SHEET - SJS Significant Procedures: Right hip aspiration Surgery Date: 03/15/17 Name of Procedure: Right hip aspiration with fluoroscopic guidance Pre-Operative Diagnosis: Painful replaced right hip Post-Operative Diagnosis: Same Estimated Blood Loss: none Surgeon/Folding Machine Feeder: Tushar Zarco MD Anesthesia: moderate sedation Operative/Procedure Note Note: The patient was taken to the operating room and positively identified. After induction of sedation he was placed supine on the operating room table and all bony prominences well-padded. The right hip was then prepped sterilely. Utilizing fluoroscopic guidance an 18-gauge spinal needle was passed to the hip joint. Intra-articular placement of the needle was verified using fluoroscopic imaging. No purulent material was obtained. In fact no joint fluid was obtained. Approximately 2 mL of edith blood was aspirated. This was sent for culture. Nothing was sent for cell count as this was likely peripheral blood. A Band-Aid was placed over the aspiration site. The patient was awakened and taken to recovery. Pertinent Lab Results: echo Normal size left ventricle. Moderate concentric left ventricular hypertrophy. Moderately reduced global left ventricular systolic function. Moderately abnormal left ventricular ejection fraction estimated at 25-30%. Abnormal relaxation filling pattern of the left ventricle for age (stage 1 diastolic dysfunction). Mild right ventricular dilatation. Catheter/pacemaker wire in the right ventricular cavity. Not well seen grossly normal. Catheter/pacemaker wire in the right atrial cavity. Trace tricuspid regurgitation. Unable to estimate the right ventricular systolic pressure. hip xray FINDINGS: There is a total right hip arthroplasty. The femoral head component articulates appropriately with the acetabular component. There is a thin rim of lucency surrounding the acetabular component, measuring up to 0.3 cm. This measures 0.1 cm throughout most of the course of the component. No periprosthetic fracture. The femoral component is unremarkable. The bowel gas pattern is unremarkable. IMPRESSION: Thin lucency along the acetabular component of the right hip arthroplasty hardware. This is a change from the previous study from 2015. The appearance is nonspecific. Slight loosening is possible cxr IMPRESSION: No acute disease no x-ray evidence for pulmonary edema venous Doppler study FINDINGS: Respiratory variation, normal compression and augmented flow are noted throughout the lower extremities. The visualized common femoral vein, superficial femoral vein, profunda femoral vein, popliteal vein and midcalf peroneal and posterior tibial venous segments show no evidence of deep venous thrombosis. There is no King's cyst. IMPRESSION: Normal triplex scan without evidence of deep venous thrombosis involving the lower extremities. hip xray FINDINGS: There is a total right hip arthroplasty. There is positioning of aspiration needle both superior and inferior to the femoral neck component. IMPRESSION: Fluoroscopic guidance for right hip aspiration. Disposition Summary Disposition Principal Diagnosis: Bilateral lower extremity cellulitis Right hip prothesis infection Additional Diagnosis: Status post right hip aspiration Discharge Disposition: SNF Discharge Instructions General Discharge Information Code Status: Full Code Patient's Diet: as tolerated Patient's Activity: As tolerated Follow-Up Instructions/Appts: Follow up with Dr. Zarco within 1 week after discharge. please schedule appointment with Dr. Zarco as soon as possible. Please also follow up with Dr. Zarco regarding hip surgery. Please take antibiotics ampicillin 2 g IV every 6 hours for 6 weeks until May 04. Continue with your antibiotics for 6 weeks through PICC line Follow-up with infectious disease doctor within 2 weeks after discharge Follow up with podiatry outpatient within 1-2 weeks after discharge Follow up with Health Insurance Assessor within 1-2 weeks after discharge. Take water pill for lower extremity swelling. Please follow-up with your primary care physician within one week after discharge Medications at Discharge Discharge Medications: Continue taking these medications: Metformin HCl (Metformin HCl) 500 MG TABLET 1 Tablet ORAL TWICE DAILY Comments: NOT GIVEN IN HOSPITAL Fluticasone-Salmeterol (Advair 100-50 Diskus) 100 MCG-50 MCG/DOSE BLST.W.DEV 1 Puff Inhale through mouth TWICE DAILY Comments: NOT GIVEN IN HOSPITAL Aspirin (Ecotrin*) 81 MG TABLET.DR 1 Tablet ORAL DAILY Comments: Last Taken: 03/24/17 Time: 9AM Simvastatin (Zocor*) 10 MG TABLET 1 Tablet ORAL Every night Comments: Last Taken: 03/23/17 Time: 5PM PT GIVEN ATORVASTATIN Higden-3/Dha/Epa/Fish Oil (Fish Oil 500 MG Softgel) 60 MG-90 MG-500 MG CAPSULE 1 Capsule ORAL DAILY Comments: Last Taken: 03/24/17 Time: 9AM Carvedilol (Carvedilol) 6.25 MG TABLET 1 Tablet ORAL TWICE DAILY Comments: Last Taken: 03/24/17 Time: 9AM Tamsulosin HCl (Flomax) 0.4 MG CAP.ER.24H 1 Capsule ORAL DAILY Comments: Last Taken: 03/24/17 Time: 9AM Liraglutide (Victoza 3-Myles) 0.6 MG/0.1 ML (18 MG/3 ML) PEN.INJCTR 1.2 Milligram Inject into fatty tissue DAILY Comments: NOT GIVEN IN HOSPITAL Magnesium Gluconate (Mag-G) 27 MG (500 MG) TABLET 1 Tablet ORAL TUESDAY, TUESDAY AND TUESDAY Comments: NOT GIVEN IN HOSPITAL Vitamin E Acetate (Vitamin E) 400 UNIT CAPSULE 1 Capsule ORAL TWICE DAILY Comments: Last Taken: 03/24/17 Time: 9AM Lisinopril (Prinivil) 5 MG TABLET 1 Tablet ORAL DAILY Comments: Last Taken: 03/24/17 Time: 9AM Dofetilide (Dofetilide) 500 MCG CAPSULE 1 Capsule ORAL TWICE DAILY Qty = 180 Comments: Last Taken: 03/24/17 Time: 9AM Start taking the following new medications: Furosemide (Furosemide) 20 MG TABLET 20 Milligram ORAL DAILY Qty = 30 No Refills Comments: Last Taken: 03/24/17 Time: 9AM Lactobacillus Acidophilus (Acidophilus) 1 EACH CAPSULE 1 Capsule ORAL DAILY Qty = 30 No Refills Ampicillin Sodium (Ampicillin Sodium) 2 GRAM VIAL 2 Gram INTRAVEN EVERY SIX HOURS Qty = 86 No Refills Instructions: should be on iv ampicillin 2gm q6 for 6 weeks until may 04 Comments: Last Taken: 03/24/17 Time: 9AM Copies To: ISIDORO RODRÍGUEZ,JUAN A. Attending MD Review Statement Documenting Attending: TYREL RODRÍGUEZ,JOURDAN Other Findings: 76 o/m with possible prosthesis infection right hip declined surgical intervention initially and then after second opinion agreed to do procedure as outpatient. Id consulted and recommend iv abx PICC 6 weeks. Patient d/c to STR in stable condition. Patient in agreement to plan at discharge. Dr Zarco primary orthopedics f/u op as scheduled by our team.
[2017-03-14 15:17] VITALS: BP 116/54
--- NOTE | 2017-03-14 15:35 | PN- Orthopedic ---
Surgical Brief Attending Note Brief Attending Note: Pt known to me. S/p right hip replacement about 2 years ago at [facility]. Admitted with bilateral cellulits, UTI, right hip pain. Has been having hip pain for greater than six months but had been fine prior. Has pain with certain twisting activities. Had not been having fevers prior to hospitalization, although patient is a poor historian. PE: Incision well healed without erythema. Able to passively range hip with minimal discomfort. Xray shows a possibly loose acetabular component. Imp: Poorly controlled diabetic with bilateral LE cellulitis and a transiently painful right hip replacement. Infection cannot be ruled out. Therefore, I will take him to the OR tomorrow for a right hip aspiration with sedation. Since he has been on Abx, culture results likely not helpful, but synovial fluid cell count should be diagnostic. If his hip is not infected, the remainder of his workup for a loose component will be as an outpatient. NPO AFTER BREAKFAST. I WILL BE AVAILABLE AFTER 4PM, SO HE CAN EAT BREAKFAST. NO LUNCH.
[2017-03-14 22:00] VITALS: BP 140/78
[2017-03-15 07:07] VITALS: BP 130/64
--- NOTE | 2017-03-15 08:01 | PN- Housestaff ---
TYLER LOPEZ 03/15/17 0801: Subjective Follow-up For: Cellulitus R hip pain Subjective: No acute event overnight Review of Systems Constitutional: Reports: see HPI. Objective Last 24 Hrs of Vital Signs/I&O Vital Signs Date Time Temp Pulse Resp B/P B/P Pulse O2 O2 Flow FiO2 Mean Ox Delivery Rate 03/15 0848 73 122/68 03/15 0848 73 122/68 03/15 0847 73 122/68 03/15 0707 98.6 74 18 130/64 93 Room Air 03/15 0011 74 94 03/15 0000 CPAP 03/14 2319 75 95 03/14 2200 98.0 69 20 140/78 94 03/14 2151 140/98 03/14 1517 98.7 69 18 116/54 95 Room Air Intake & Output 03/15 1600 03/15 0800 03/15 0000 Intake Total 375 370 Output Total 350 900 Balance 25 -530 Intake, IV 225 130 Intake, Oral 150 240 Output, Urine 350 900 Patient 281 lb Weight Physical Exam General Appearance: Alert, Oriented X3, Cooperative, No Acute Distress HEENT: Atraumatic, PERRLA Cardiovascular: Normal S1, Normal S2 Lungs: Clear to Auscultation Abdomen: Normal Bowel Sounds, Soft, No Tenderness Extremities: Wrapped Assessment/Plan Assessment: 76-year-old male with a past medical history of COPD, hyperlipidemia, diabetes mellitus, CAD s/p CABG in 2003 and AICD, BPH, LIAM, occult GI bleed, who presents to us with c/o wekaness, and leg swelling. 1. Cellulitis of bilateral lower extremity swelling and wounds * Dopplers negative for DVT * Unasyn IV day 5 of antibiotic * Wound care following the patient * Blood cultures negative * Podiatric consulted 2. Diabetes mellitus, Halc 8.7 * NovoLog sliding scale * Continue Accu-Cheks 3. Coronary artery disease status post CABG as well as AICD placement * ACS ruled out with negative troponin and EKG * Continue aspirin, carvedilol, atorvastatin, dofetilide, lisinopril * CXR negative for ant any acute pathology 4. Right hip pain, S/P prothesis 2 yrs ago * Right hip aspiration scheduled today 5. BPH * Continue on tamsulosin 0.4 mg daily 6. COPD * Continue on Symbicort * TRC nebs 7. LIAM on CPAP * Continue CPAP -DVT prophylaxis Heparin 5000 international units 3 times a day subcutaneous - Diet NPO after breakfast -Code Status Full code Problem List: 1. CAD (coronary artery disease) 2. Diabetes mellitus 3. BPH (benign prostatic hyperplasia) Pain Ratin Pain Location: N/A Pain Goal: Remain pain free Pain Plan: N/A Tomorrow's Labs & Rationales: None JOURDAN SARAH 03/15/17 0943: Attending MD Review Statement Attending Statement Attending MD Statement: examined this patient, discuss w/resident/PA/TAXICAB DISPATCHER, agreed w/resident/PA/TAXICAB DISPATCHER, discussed with family, reviewed EMR data (avail), discussed with nursing, discussed with case mgmt, reviewed images, amended to note Attending Assessment/Plan: [id number] obese gentleman with past medical history significant for type 2 diabetes mellitus, hypertension, hyperlipidemia, COPD, coronary artery disease status post CABG, ICM, obstructive sleep apnea on CPAP, and recurrent paroxysmal A. fib not on any anticoagulants 2/2 GI bleed admitted to tele for pacemaker interrogation, cardiology consulted. Patient on i/v abx for cellulitis, Orthopedics recommend OR for right hip pain today, NPO for procedure f/u cardiology. PT eval for d/c planning. Patient vital stable can be taken to OR.
--- NOTE | 2017-03-15 08:09 | NUR ---
PHYSICAL THERAPY. Pt RECEIVED IN RECLINER, PLAN IS FOR OR THIS AFTERNOON FOR R HIP ASPIRATION AND EVALUATION OF LOOSENING ARTHROPLASTY. Pt REFUSED CHAIR LEVEL THEREX OR TRANSFER AT THIS TIME. WILL DEFER FURTHER PT PENDING RECOMMENDATIONS FROM ORTHO S/P OR. PLEASE UPDATE ORDERS NEEDED WITH WB'ING STATUS OR RESTRICTIONS.
--- NOTE | 2017-03-15 13:01 | ECHOCARDIOGRAM REPORT ---
LUIS HENDERSON Age: 76 : 1940 Gender: M Exam Date: 03/14/2017 10:55 Exam Location: [address] Ht (in): 69 Wt (lb): 269 BSA: 2.49 BP: / Ordering Physician: MAURICE GRIDER MD Referring Physician: MAURICE GRIDER MD Technologist: [facility] Room Number: 179-02 Indications: CABG S/P Rhythm: Sinus Technical Quality: Poor, Very technically difficult study FINDINGS Left Ventricle Normal size left ventricle. Moderate concentric left ventricular hypertrophy. Moderately reduced global left ventricular systolic function. Moderately abnormal left ventricular ejection fraction estimated at 25-30%. Abnormal relaxation filling pattern of the left ventricle for age (stage 1 diastolic dysfunction). Right Ventricle Mild right ventricular dilatation. Catheter/pacemaker wire in the right ventricular cavity. Right Atrium Not well seen grossly normal. Catheter/pacemaker wire in the right atrial cavity. Left Atrium Mild to moderate left atrial dilatation. Possible atrial septal aneurysm. Mitral Valve Mild mitral annular calcification. Mitral valve mildly thickened. No mitral regurgitation. Aortic Valve Aortic valve not well visualized. No aortic valve stenosis or regurgitation. Tricuspid Valve Tricuspid valve not well visualized, grossly normal. Unable to estimate the right ventricular systolic pressure. Trace tricuspid regurgitation. Pulmonic Valve Pulmonic valve not well visualized. Pericardium No pericardial effusion. Great Vessels Normal size aortic root. Mildly dilated proximal ascending aorta (tube). CONCLUSIONS Normal size left ventricle. Moderate concentric left ventricular hypertrophy. Moderately reduced global left ventricular systolic function. Moderately abnormal left ventricular ejection fraction estimated at 25-30%. Abnormal relaxation filling pattern of the left ventricle for age (stage 1 diastolic dysfunction). Mild right ventricular dilatation. Catheter/pacemaker wire in the right ventricular cavity. Not well seen grossly normal. Catheter/pacemaker wire in the right atrial cavity. Trace tricuspid regurgitation. Unable to estimate the right ventricular systolic pressure. Von Sanchez M.D. (Electronically Signed) Final Date: 15 March 2017 13:00 MEASUREMENTS (Male / Female) Normal Values 2D ECHO LV Diastolic Diameter PLAX 4.8 cm 4.2 - 5.9 / 3.9 - 5.3 cm LV Systolic Diameter PLAX 4.2 cm 2.1 - 4.0 cm LV Fractional Shortening PLAX 12.5 % 25 - 46 % LV Ejection Fraction 2D Teich 26.9 % IVS Diastolic Thickness 1.5 cm LVPW Diastolic Thickness 1.5 cm LV Relative Wall Thickness 0.6 LVOT Diameter 2.4 cm Aortic Root Diameter 3.3 cm LA Systolic Diameter LX 4.8 cm 3.0 - 4.0 / 2.7 - 3.8 cm Ascending Aorta Diameter 3.7 cm DOPPLER Mitral E Point Velocity 55.3 cm/s Mitral A Point Velocity 87.4 cm/s Mitral E to A Ratio 0.6
--- NOTE | 2017-03-15 13:36 | PN- Cardiology ---
Subjective Subjective: No complaints. Remains in sinus rhythm. Objective Vital Signs and I&Os Vital Signs Date Time Temp Pulse Resp B/P B/P Pulse O2 O2 Flow FiO2 Mean Ox Delivery Rate 03/15 0848 73 122/68 03/15 0848 73 122/68 03/15 0847 73 122/68 03/15 0707 98.6 74 18 130/64 93 Room Air 03/15 0011 74 94 03/15 0000 CPAP 03/14 2319 75 95 03/14 2200 98.0 69 20 140/78 94 03/14 2151 140/98 03/14 1517 98.7 69 18 116/54 95 Room Air Intake & Output 03/15 1600 03/15 0800 03/15 0000 03/14 1600 03/14 0800 03/14 0000 Intake Total 375 370 580 Output Total 350 900 400 500 200 Balance 25 -530 -400 -500 380 Intake, IV 225 130 100 Intake, Oral 150 240 480 Number 1 Bowel Movements Output, Urine 350 900 400 500 200 Patient 281 lb 281 lb Weight Weight Chair scale Measurement Method Physical Exam: Well-developed, morbidly obese elderly male in no acute distress. Vital signs: See above. Lungs: Clear to auscultation bilaterally. Heart: S1, S2 with grade 1/6 systolic murmur. Extremities: Bilateral 2-3+ lower extremity edema edema. Current Medications: Current Medications Sig/Buck Start time Last Medication Dose Route Stop Time Status Admin Acetaminophen 650 MG Q6P PRN 03/12 2100 AC PO Acetaminophen/ 1 TAB Q6P PRN 03/12 2100 AC 03/15 Hydrocodone Bitart PO 1146 Ampicillin Sodium/ 3,000 MG Q6 03/11 1800 AC 03/15 Sulbactam Sodium IV 1158 Sodium Chloride 100 ML Aspirin Buffered 81 MG DAILY 03/11 1338 AC 03/15 PO 0848 Atorvastatin Calcium 10 MG 1700 03/11 1700 AC 03/14 PO 1720 Budesonide/ 2 PUF BID 03/11 1339 AC 03/15 Formoterol Fumarate INH 0848 Carvedilol 6.25 MG BID 03/15 1000 AC 03/15 PO 0847 Carvedilol 6.25 MG BID 03/11 1338 DC 03/14 PO 2151 Dextrose/Sodium 1,000 ML Q13H 03/15 0900 AC 03/15 Chloride IV 0901 Docusate Sodium 100 MG DAILY 03/13 1000 AC 03/15 PO 0842 Dofetilide 500 MCG BID 03/11 2200 AC 03/15 PO 0846 Fish Oil 1,050 MG DAILY 03/11 1340 AC 03/15 PO 0849 Furosemide 20 MG DAILY 03/14 1511 AC 03/15 PO 0843 Heparin Sodium 5,000 UNIT Q8 03/11 1503 AC 03/14 (Porcine) SC 2151 Insulin Aspart 0 TIDAC 03/11 1700 DC 03/15 SC 0840 Insulin Human Regular 0 Q6 03/15 1200 AC 03/15 SC 1147 Lisinopril 5 MG DAILY 03/13 1047 AC 03/15 PO 0848 Magnesium Chloride 64 MG DAILY 03/12 1000 AC 03/15 PO 0842 Morphine Sulfate 2 MG Q4P PRN 03/12 2100 AC IV Polyethylene Glycol 17 GM DAILY PRN 03/13 0330 AC PO Senna 187 MG AT BEDTIME 03/13 2200 AC 03/13 PO 2214 Tamsulosin HCl 0.4 MG DAILY 03/11 1341 AC 03/15 PO 0848 Vitamin E 400 IU DAILY 03/11 1341 AC 03/15 PO 0843 Zinc Oxide 1 GENE BID 03/12 2200 AC 03/15 TOP 0850 Results Last 48 Hrs of Labs/Mics: Laboratory Tests 03/14/17 0720: Anion Gap 10, Estimated GFR > 60, BUN/Creatinine Ratio 23.0, CBC w Diff NO MAN DIFF REQ, RBC 4.56 L, MCV 89.4, MCH 29.4, RDW 14.7 H, MPV 9.4, Gran % 58.6, Lymphocytes % 30.0, Monocytes % 8.0, Eosinophils % 2.9, Basophils % 0.5, Absolute Granulocytes 6.8 H, Absolute Lymphocytes 3.5 H, Absolute Monocytes 0.9 H, Absolute Eosinophils 0.3, Absolute Basophils 0.1, PUBS MCHC 32.9 L Recent Imaging Studies: Echocardiogram (03/14/2017): Normal size left ventricle. Moderate concentric left ventricular hypertrophy. Moderately reduced global left ventricular systolic function. Moderately abnormal left ventricular ejection fraction estimated at 25-30%. Abnormal relaxation filling pattern of the left ventricle for age (stage 1 diastolic dysfunction). Mild right ventricular dilatation. Catheter/pacemaker wire in the right ventricular cavity. Right atrium not well seen grossly normal. Catheter/pacemaker wire in the right atrial cavity. Mild to moderate left atrial dilatation. Possible atrial septal aneurysm. Trace tricuspid regurgitation. Unable to estimate the right ventricular systolic pressure. Assessment/Plan Assessment/Plan [id number] w/ hx of morbid obesity, LIAM on CPAP, COPD, HTN, HLD, DM, CAD/ICM (s/ p IMI in 1998, CABG 4 w/ WHITE to LAD and individual SVGs to Dx, OM, PDA & MAZE) , and recurrent PAF who presented in an unkempt state via ambulance after being discovered on the floor of his home several hours after he had fallen w/ findings of a UTI, bilateral lower extremity cellulitis, edema, etc. Recommendations: * Continue on telemetry w/ strict inputs/outputs and daily weights. * BiV pacemaker/defibrillator functioning properly without the need for reprogramming. * Continue diuretic therapy w/ improved renal function, in the hope of improving edema. * Continue beta guillermo, antiarrhythmic, antiplatelets, statin, CLARISA inhibitor, etc. * Follow-up on orthopedic surgery recommendations. * DVT prophylaxis.
[2017-03-15 15:10] VITALS: BP 128/68
--- NOTE | 2017-03-15 19:29 | Operative Report ---
Operative/Inv Procedure Report Surgery Date: 03/15/17 Name of Procedure: Right hip aspiration with fluoroscopic guidance Pre-Operative Diagnosis: Painful replaced right hip Post-Operative Diagnosis: Same Estimated Blood Loss: none Surgeon/City Supervisor: Tushar Young MD Anesthesia: moderate sedation Operative/Procedure Note Note: The patient was taken to the operating room and positively identified. After induction of sedation he was placed supine on the operating room table and all bony prominences well-padded. The right hip was then prepped sterilely. Utilizing fluoroscopic guidance an 18-gauge spinal needle was passed to the hip joint. Intra-articular placement of the needle was verified using fluoroscopic imaging. No purulent material was obtained. In fact no joint fluid was obtained. Approximately 2 mL of edith blood was aspirated. This was sent for culture. Nothing was sent for cell count as this was likely peripheral blood. A Band-Aid was placed over the aspiration site. The patient was awakened and taken to recovery.
--- NOTE | 2017-03-15 19:30 | PN- Orthopedic ---
Surgical Brief Attending Note Brief Attending Note: Right hip aspiration performed. No joint fluid obtained, purulent or otherwise. I small amount of what appeared to be edith blood was obtained, likely induced by the aspiration needle itself. This was sent for culture.
[2017-03-15 20:44] VITALS: BP 126/80
--- NOTE | 2017-03-15 22:48 | RADIOLOGY REPORT ---
EXAMINATION: XR HIP, RIGHT CLINICAL INFORMATION: Right hip aspiration COMPARISON: None TECHNIQUE: Fluoroscopic guidance for right hip aspiration with single view, 3 images submitted. Total fluoroscopic time was [address] Young performed the procedure. FINDINGS: There is a total right hip arthroplasty. There is positioning of aspiration needle both superior and inferior to the femoral neck component. IMPRESSION: Fluoroscopic guidance for right hip aspiration.
[2017-03-16 07:28] VITALS: BP 130/72
--- NOTE | 2017-03-16 07:33 | PN- Housestaff ---
TYLER LOPEZ 03/16/17 0730: Subjective Follow-up For: PAF Cellulitus Right hip pain Tele-Events Since Last Visit: Pacing/SR 68-72 Review of Systems Constitutional: Reports: see HPI. Objective Last 24 Hrs of Vital Signs/I&O Vital Signs Date Time Temp Pulse Resp B/P B/P Pulse O2 O2 Flow FiO2 Mean Ox Delivery Rate 03/16 1525 98.4 70 20 134/72 93 Room Air 03/16 1154 Room Air 2.0L 03/16 0852 130/72 03/16 0851 130/72 03/16 0851 130/72 03/16 0728 97.3 72 20 130/72 95 Nasal 2.0L Cannula 03/16 0000 Nasal 3.0L Cannula 03/15 2049 71 126/80 03/15 2044 97.7 71 20 126/80 94 Nasal 3.0L Cannula Intake & Output 03/16 1600 03/16 0800 03/16 0000 Intake Total 720 750 450 Output Total 200 1025 75 Balance 520 -275 375 Intake, IV 600 300 Intake, Oral 720 150 150 Number 1 0 Bowel Movements Output, Urine 200 1025 75 Patient 281 lb Weight Weight Chair scale Measurement Method Physical Exam General Appearance: Alert, Oriented X3, Cooperative, No Acute Distress HEENT: Atraumatic, PERRLA Cardiovascular: Normal S1, Normal S2 Lungs: Clear to Auscultation, Normal Air Movement Abdomen: Normal Bowel Sounds, Soft, No Tenderness Extremities: No Edema, Wrapped Current Medications: Current Medications Sig/Buck Start time Last Medication Dose Route Stop Time Status Admin Acetaminophen 650 MG Q6P PRN 03/12 2100 AC PO Acetaminophen/ 1 TAB Q6P PRN 03/12 2100 AC 03/15 Hydrocodone Bitart PO 1146 Amoxicillin/ 875 MG Q12 03/16 1000 AC 03/16 Clavulanate Potassium PO 1204 Ampicillin Sodium/ 3,000 MG Q6 03/11 1800 DC 03/15 Sulbactam Sodium IV 1158 Sodium Chloride 100 ML Aspirin Buffered 81 MG DAILY 03/11 1338 AC 03/16 PO 0852 Atorvastatin Calcium 10 MG 1700 03/11 1700 AC 03/16 PO 1711 Budesonide/ 2 PUF BID 03/11 1339 AC 03/16 Formoterol Fumarate INH 0852 Carvedilol 6.25 MG BID 03/15 1000 AC 03/16 PO 0852 Dexamethasone 4 MG .STK-MED ONE 03/15 181 DC IM 03/15 181 Dextrose/Sodium 1,000 ML Q13H 03/15 09 DC 03/15 Chloride IV 2050 Docusate Sodium 100 MG DAILY 03/13 1000 AC 03/16 PO 0852 Dofetilide 500 MCG BID 03/11 2200 AC 03/16 PO 0851 Fentanyl Citrate 200 MCG .STK-MED ONE 03/15 181 DC IM 03/15 181 Fish Oil 1,050 MG DAILY 03/11 1340 AC 03/16 PO 0851 Furosemide 20 MG DAILY 03/14 1511 AC 03/16 PO 0851 Heparin Sodium 5,000 UNIT Q8 03/11 1503 AC 03/16 (Porcine) SC 1350 Insulin Aspart 0 TIDAC 03/16 0800 AC 03/16 SC 1711 Insulin Human Regular 8 UNITS .STK-MED ONE 03/16 0036 DC IV 03/16 0037 Insulin Human Regular 0 Q6 03/15 1200 DC 03/16 SC 0038 Lactobacillus 1 CAP BID 03/16 1014 AC 03/16 Acidophilus PO 1204 Lisinopril 5 MG DAILY 03/13 1047 AC 03/16 PO 0851 Magnesium Chloride 64 MG DAILY 03/12 1000 AC 03/16 PO 0851 Midazolam HCl 2 MG .STK-MED ONE 03/15 1810 DC IM 03/15 181 Morphine Sulfate 2 MG Q4P PRN 03/12 2100 AC IV Ondansetron HCl 8 MG .STK-MED ONE 03/15 1810 DC IM 03/15 181 Polyethylene Glycol 17 GM DAILY PRN 03/13 0330 AC PO Senna 187 MG AT BEDTIME 03/13 2200 AC 03/15 PO 2049 Tamsulosin HCl 0.4 MG DAILY 03/11 1341 AC 03/16 PO 0851 Vitamin E 400 IU DAILY 03/11 1341 AC 03/16 PO 0851 Zinc Oxide 1 GENE BID 03/12 2200 AC 03/16 TOP 0852 Last 24 Hrs of Lab/Les Results Last 24 Hrs of Labs/Mics: Laboratory Tests 03/16/17 1605: C-React Prot High Sens Pending, ESR Westergren Pending 03/16/17 0721: CBC w Diff NO MAN DIFF REQ, RBC 4.72, MCV 89.8, MCH 29.6, RDW 14.5, MPV 8.7, Gran % 73.5, Lymphocytes % 23.1, Monocytes % 3.0, Eosinophils % 0.1, Basophils % 0.3, Absolute Granulocytes 11.0 H, Absolute Lymphocytes 3.5 H, Absolute Monocytes 0.4, Absolute Eosinophils 0, Absolute Basophils 0, PUBS MCHC 33.0 Microbiology 03/15 1930 TRUNK/O.R.: Culture & Sensitivity - RES 03/15 1930 TRUNK/O.R.: Gram Stain - RES Orders Miscellaneous Findings: No complications during R hip aspiration. R hip aspiration neg for joint purulence or fluid, cultures sent Assessment/Plan Assessment: 76-year-old male with a past medical history of COPD, hyperlipidemia, diabetes mellitus, CAD s/p CABG in 2003 and AICD, BPH, LIAM, occult GI bleed, who presents to us with c/o wekaness, and leg swelling. 1. Cellulitis of bilateral lower extremity swelling and wounds likely due to venous stasis * Dopplers negative for DVT * Unasyn IV day 6 of antibiotic * Wound care following the patient * Blood cultures negative 2. Diabetes mellitus, Halc 8.3 * NovoLog sliding scale * Continue Accu-Cheks 3. Coronary artery disease status post CABG as well as AICD placement * ACS ruled out with negative troponin and EKG * Continue aspirin, carvedilol, atorvastatin, dofetilide, lisinopril * CXR negative for any acute pathology 4. Right hip pain, S/P prothesis 2 yrs ago * Right hip aspiration did not reveal purulent d/c * Right hip edith blood aspiration, BC sent * ID consult for elevation in wbc 5. BPH * Continue on tamsulosin 0.4 mg daily 6. COPD * Continue on Symbicort * TR nebs 7. LIAM on CPAP * Continue CPAP -DVT prophylaxis Heparin 5000 international units 3 times a day subcutaneous - Diet NPO after breakfast -Code Status Full code Problem List: 1. Afib 2. Cellulitis 3. S/P hip replacement 4. BPH (benign prostatic hyperplasia) 5. Diabetes mellitus 6. CAD (coronary artery disease) Pain Ratin Pain Location: N/A Pain Goal: Remain pain free Pain Plan: N/A Tomorrow's Labs & Rationales: CBC, ESR, CRP to rule out infection Consulting Request: Consulting Specialty: Orthopedics JOURDAN SARAH 03/16/17 0926: Attending MD Review Statement Attending Statement Attending MD Statement: examined this patient, discuss w/resident/PA/TIE HACKER, agreed w/resident/PA/TIE HACKER, discussed with family, reviewed EMR data (avail), discussed with nursing, discussed with case mgmt, reviewed images, amended to note Attending Assessment/Plan: [id number] obese gentleman with past medical history significant for type 2 diabetes mellitus, hypertension, hyperlipidemia, COPD, coronary artery disease status post CABG, ICM, obstructive sleep apnea on CPAP, and recurrent paroxysmal A. fib not on any anticoagulants 2/2 GI bleed admitted to tele for pacemaker interrogation, cardiology consulted. Patient started on i/v unasyn for cellulitis change to PO, Orthopedics recommend OR for right hip pain. PT eval for d/c planning. Patient vital underwent aspiration of right hip though no purulent material, edith blood 2ml noted sent for analysis. f/u wound results/ cultures shows moderate wbc, no growth. Consult ID, f/u orthopedics, possible str d/c.
[2017-03-16 08:06] LABS: ABSOLUTE BASOPHIL COUNT 0 /CUMM (0.0-0.2); ABSOLUTE EOSINOPHIL COUNT 0 /CUMM (0.0-0.7); ABSOLUTE LYMPH COUNT 3.5 /CUMM (1.2-3.4); ABSOLUTE MONOCYTE COUNT 0.4 /CUMM (0.10-0.60); BASOPHIL % 0.3 % (0.0-2.0); EOSINOPHIL % 0.1 % (0-5); GRANULOCYTE % 73.5 % (42.2-75.2); HEMATOCRIT 42.4 % (42-52); MEAN CORPUSCULAR HGB 29.6 PG (27.0-31.0); MEAN CORPUSCULAR VOLUME 89.8 FL (80.0-94.0); MEAN PLATELET VOLUME 8.7 FL (7.4-10.4); PLATELET COUNT 179 /CUMM (130-400); RBC DISTRIBUTION WIDTH 14.5 % (11.5-14.5); RED BLOOD CELL CT 4.72 /CUMM (4.70-6.10)
[2017-03-16] MEDS ORDERED: AUGMENTIN 875-1 EACH PO (11:54)
[2017-03-16] MEDS ORDERED: FUROSEMIDE20 M1 PO (11:56)
--- NOTE | 2017-03-16 14:42 | NUR ---
Referral received on 03/14/17 via electronic seafood technology specialist. This patient is a 76 year old man, admitted to the hospital on 03/11/17 from home. Admitted with UTI and cellulitis. Reason for social ork consult was "may need half-way placement.. unhygeinic living condition". Patient taken to OR yesterday for aspiration of wound...PT recommends STR: case discussed with counter caser who reports that patient reluctantly agrees to bed search now. Will follow.
[2017-03-16 15:25] VITALS: BP 134/72
--- NOTE | 2017-03-16 17:06 | Cons- Infect Disease ---
General Information and HPI Consulting Request Date of Consult: 03/16/17 Requested By: MAYRA AGUILAR MD Reason for Consult: Increased WBC count/lower extremity cellulitis Source of Information: patient, old records History of Present Illness: This is a 76-year-old man with diabetes, coronary artery disease, status post CABG, paroxysmal atrial fibrillation, not on anticoagulation, status post pacemaker/AICD 12 years prior to admission, COPD, with obstructive sleep apnea, on CPAP, BPH, GI bleed, osteoarthritis, status post right hip replacement 2 years prior to admission, and venous insufficiency, with right hip pain over the past 6 months and chronic lower extremity ulcers and discomfort over the past 4 months, admitted on March 11 after a fall at home from which he was unable to get up. On admission he was afebrile. Laboratory data revealed a white blood cell count of 15,000, BUN/creatinine 24 and 1.5, with normal liver enzymes. Urinalysis 15-25 RBC/packed WBCs. X-ray of the right hip revealed a thin rim of lucency surrounding the acetabular component. Chest x-ray was negative. Dopplers of both lower extremities were negative. He was given a dose of Cefazolin in the emergency room and then placed on Unasyn. On March 15 he was taken to the OR for aspiration of the right hip joint under fluoroscopy which yielded only 2 mL of blood, with one dose of Dexamethasone given IM. He has been afebrile since admission. His white blood cell count decreased to the 12, 000 range but was noted to be elevated today. He feels overall improved with no pain in the right hip at present and with decreased discomfort in both lower extremities. Allergies/Medications Allergies: Coded Allergies: NO KNOWN ALLERGIES (03/22/12) NKA PER DIPYRIDAMOLE ORDER SHEET - [facility] Home Med List: Amoxicillin/Potassium Clav (Augmentin 875-125 Tablet) 875 MG-125 MG TABLET 1 TAB PO BID Cellulitus Aspirin (Ecotrin*) 81 MG TABLET. 1 TAB PO DAILY HEART HEALTH (Reported) Carvedilol 6.25 MG TABLET 1 TAB PO BID HEART (Reported) Dofetilide 500 MCG CAPSULE 1 CAP PO BID HEART (Reported) Fluticasone-Salmeterol (Advair 100-50 Diskus) 100 MCG-50 MCG/DOSE BLST.W.DEV 1 PUF INH BID COPD (Reported) Furosemide 20 MG TABLET 20 MG PO DAILY leg swelling Liraglutide (Victoza 3-Myles) 0.6 MG/0.1 ML (18 MG/3 ML) PEN.INJCTR 1.2 MG SC DAILY DIABETES (Reported) Lisinopril (Prinivil) 5 MG TABLET 1 TAB PO DAILY HEART (Reported) Magnesium Gluconate (Mag-G) 27 MG (500 MG) TABLET 1 TAB PO Tuesday SUPPLEMENT (Reported) Metformin HCl 500 MG TABLET 1 TAB PO BID DIABETES (Reported) [place]-3/Dha/Epa/Fish Oil (Fish Oil 500 MG Softgel) 60 MG-90 MG-500 MG CAPSULE 1 CAP PO DAILY SUPPLEMENT (Reported) Simvastatin (Zocor*) 10 MG TABLET 1 TAB PO QPM CHOLESTEROL (Reported) Tamsulosin HCl (Flomax) 0.4 MG CAP.ER.24H 1 CAP PO DAILY PROSTATE (Reported) Vitamin E Acetate (Vitamin E) 400 UNIT CAPSULE 1 CAP PO BID SUPPLEMENT ( Reported) Past History Travel History Traveled to [place] past 21 day No Medical History Blood Transfusion Hx: No Neurological: NONE EENT: hearing loss Cardiovascular: AFIB, CAD, cardiomyopathy (ischemic), hypertension, hyperlipidemia, myocardial infarction, s/p pacemaker/AICD Respiratory: bronchitis, SLEEP APNEA Gastrointestinal: upper GI bleed Hepatic: NONE Renal: benign prost hyperplasia, nephrolithiasis Musculoskeletal: falls Psychiatric: NONE Endocrine: DIABETES TYPE 2 Blood Disorders: NONE Cancer(s): NONE THIRD MATE/Reproductive: NONE History of MRSA: No History of VRE: No History of CDIFF: No Isolation History: Standard Pneumonia Vaccine: 06/05/14 Influenza Vaccine: 06/05/14 Surgical History Surgical History: CABG, hip replacement (right), s/p lithotripsy Family History Relations & Conditions If Any: MOTHER, , Age 60+; Cause: Heart disease. FH: heart disease BROTHER FH: lung cancer FATHER FH: prostate cancer Psychosocial History Where Do You Live? Home Who Do You Live With? with nephew Services at Home: None Primary Language: Bhutanese Smoking Status: Former Smoker (25 pck year) ETOH Use: occasional use Illicit Drug Use: denies illicit drug use Functional Ability ADLs Independent: eating. Needs Assist: dressing, toileting, bathing. Ambulation: walker IADLs Needs Assist: shopping, housework, finances, food prep, telephone, transportation, medication admin. 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 [employer] Review of Systems Review of Systems All Other Systems: Reviewed and Negative Exam & Diagnostic Data Last 24 Hrs of Vital Signs/I&O Vital Signs Date Time Temp Pulse Resp B/P B/P Pulse O2 O2 Flow FiO2 Mean Ox Delivery Rate 03/16 1525 98.4 70 20 134/72 93 Room Air 03/16 1154 Room Air 2.0L 03/16 0852 130/72 03/16 0851 130/72 03/16 0851 130/72 03/16 0728 97.3 72 20 130/72 95 Nasal 2.0L Cannula 03/16 0000 Nasal 3.0L Cannula 03/15 2049 71 126/80 03/15 2044 97.7 71 20 126/80 94 Nasal 3.0L Cannula Intake & Output 03/16 1600 03/16 0800 03/16 0000 Intake Total 720 750 450 Output Total 200 1025 75 Balance 520 -275 375 Intake, IV 600 300 Intake, Oral 720 150 150 Number 1 0 Bowel Movements Output, Urine 200 1025 75 Patient 281 lb Weight Weight Chair scale Measurement Method Physical Exam Other Physical Findings: He is awake and alert in no acute distress. He is afebrile. Skin reveals no rash. HEENT exam is negative. Neck is supple with no adenopathy. Lungs are clear. Heart regular rhythm with no murmur. Abdomen is obese, soft, nontender with positive bowel sounds. Back no CVA tenderness. Extremities bandage over the right hip with no surrounding inflammation; bilateral lower extremity edema with superficial ulcerations, with no erythema or tenderness; pulses 1+ and equal. Neuro is without focality. Last 24 Hours of Lab Results: Laboratory Tests 03/16 03/16 1605 0721 Chemistry C-React Prot High Sens Pending Hematology CBC w Diff NO MAN DIFF REQ WBC (4.8 - 10.8 /CUMM) 15.0 H RBC (4.70 - 6.10 /CUMM) 4.72 Hgb (14.0 - 18.0 G/DL) 14.0 Hct (42 - 52 %) 42.4 MCV (80.0 - 94.0 FL) 89.8 MCH (27.0 - 31.0 PG) 29.6 RDW (11.5 - 14.5 %) 14.5 Plt Count (130 - 400 /CUMM) 179 MPV (7.4 - 10.4 FL) 8.7 Gran % (42.2 - 75.2 %) 73.5 Lymphocytes % (20.5 - 51.1 %) 23.1 Monocytes % (1.7 - 9.3 %) 3.0 Eosinophils % (0 - 5 %) 0.1 Basophils % (0.0 - 2.0 %) 0.3 Absolute Granulocytes (1.4 - 6.5 /CUMM) 11.0 H Absolute Lymphocytes (1.2 - 3.4 /CUMM) 3.5 H Absolute Monocytes (0.10 - 0.60 /CUMM) 0.4 Absolute Eosinophils (0.0 - 0.7 /CUMM) 0 Absolute Basophils (0.0 - 0.2 /CUMM) 0 PUBS MCHC (33.0 - 37.0 G/DL) 33.0 ESR Westergren Pending Last 24 Hours of Les Results: Blood cultures 2 March 11 negative Right hip aspiration culture March 15 negative Diagnostic Data Recent Imaging Findings: Chest x-rays March 11 and March 12 negative Dopplers of both lower extremities March 11 negative X-ray of the right hip March 11 reveals a thin rim of lucency surrounding the acetabular component Assessment/Plan Assessment/Plan Impression: This is a 76-year-old man with a history of diabetes, coronary artery disease, paroxysmal atrial fibrillation, status post pacemaker/AICD, BPH, COPD and osteoarthritis, status post right hip replacement 2 years prior to admission, with chronic venous insufficiency and ulcers of both lower extremities admitted on March 11 after a fall at home, found to be afebrile with a leukocytosis and elevated BUN/creatinine, both of which were likely secondary to dehydration, treated with antibiotics since admission for cellulitis of both lower extremities and status post aspiration of the right hip joint, with only blood aspirated and with culture negative so far. At this point I do not see any evidence for cellulitis of the lower extremities and, therefore, do not feel that antibiotics need to be continued. The right hip aspiration only yielded blood and, hence,was not suggestive of infection; therefore he should not require antibiotics for the hip. His white blood cell count was elevated today, possibly secondary to the Decadron which he apparently received perioperatively yesterday. Suggestion: 1. Repeat CBC in the a.m. to follow up a white blood cell count 2. Continue local wound care to both lower extremities 3. Follow-up final culture of the right hip joint aspiration 4. Discontinue Unasyn and follow off antibiotics Consult Acknowledgment - Thank you for your consult request.
[2017-03-16 22:08] VITALS: BP 130/70
[2017-03-17 07:35] VITALS: BP 138/78
--- NOTE | 2017-03-17 07:53 | PN- Housestaff ---
TYLER LOPEZ 03/17/17 0753: Subjective Follow-up For: Cellulitus R hip pain s/p aspiration Review of Systems Constitutional: Reports: see HPI. Objective Last 24 Hrs of Vital Signs/I&O Vital Signs Date Time Temp Pulse Resp B/P B/P Pulse O2 O2 Flow FiO2 Mean Ox Delivery Rate 03/17 0828 138/78 03/17 0828 138/78 03/17 0828 138/78 03/17 0735 97.8 71 20 138/78 95 Room Air 03/17 0103 77 92 03/16 2238 68 130/70 03/16 2208 98.1 68 20 130/70 93 Room Air 03/16 1525 98.4 70 20 134/72 93 Room Air Intake & Output 03/17 1600 03/17 0800 03/17 0000 Intake Total 600 240 500 Output Total 150 650 300 Balance 450 -410 200 Intake, Oral 600 240 500 Output, Urine 150 650 300 Patient 277 lb Weight Physical Exam General Appearance: Alert, Oriented X3, Cooperative, No Acute Distress HEENT: Atraumatic, PERRLA Cardiovascular: Normal S1, Normal S2 Lungs: Clear to Auscultation, Normal Air Movement Abdomen: Normal Bowel Sounds, Soft, No Tenderness Extremities: Gauze dressing bilaterally Bilateral dressing dry and intact Current Medications: Current Medications Sig/Buck Start time Last Medication Dose Route Stop Time Status Admin Acetaminophen 650 MG Q6P PRN 03/12 2100 AC PO Acetaminophen/ 1 TAB Q6P PRN 03/12 2100 AC 03/15 Hydrocodone Bitart PO 1146 Amoxicillin/ 875 MG Q12 03/16 1000 DC 03/16 Clavulanate Potassium PO 1204 Aspirin Buffered 81 MG DAILY 03/11 1338 AC 03/17 PO 0828 Atorvastatin Calcium 10 MG 1700 03/11 1700 AC 03/16 PO 1711 Budesonide/ 2 PUF BID 03/11 1339 AC 03/17 Formoterol Fumarate INH 0829 Carvedilol 6.25 MG BID 03/15 1000 AC 03/17 PO 0828 Docusate Sodium 100 MG DAILY 03/13 1000 AC 03/17 PO 0828 Dofetilide 500 MCG BID 03/11 2200 AC 03/17 PO 0828 Fish Oil 1,050 MG DAILY 03/11 1340 AC 03/17 PO 0828 Furosemide 20 MG DAILY 03/14 1511 AC 03/17 PO 0828 Heparin Sodium 5,000 UNIT Q8 03/11 1503 AC 03/17 (Porcine) SC 1356 Insulin Aspart 0 TIDAC 03/16 0800 AC 03/17 SC 1207 Lactobacillus 1 CAP BID 03/16 1014 AC 03/17 Acidophilus PO 0828 Lisinopril 5 MG DAILY 03/13 1047 AC 03/17 PO 0828 Magnesium Chloride 64 MG DAILY 03/12 1000 AC 03/17 PO 0828 Morphine Sulfate 2 MG Q4P PRN 03/12 2100 AC IV Polyethylene Glycol 17 GM DAILY PRN 03/13 0330 AC PO Senna 187 MG AT BEDTIME 03/13 2200 AC 03/16 PO 2238 Tamsulosin HCl 0.4 MG DAILY 03/11 1341 AC 03/17 PO 0828 Vitamin E 400 IU DAILY 03/11 1341 AC 03/17 PO 0828 Zinc Oxide 1 GENE BID 03/12 2200 AC 03/17 TOP 0829 Last 24 Hrs of Lab/Les Results Last 24 Hrs of Labs/Mics: Laboratory Tests 03/17/17 0615: CBC w Diff NO MAN DIFF REQ, RBC 4.55 L, MCV 90.2, MCH 29.7, RDW 14.4, MPV 9.0, Gran % 60.2, Lymphocytes % 32.6, Monocytes % 4.1, Eosinophils % 2.7, Basophils % 0.4, Absolute Granulocytes 9.3 H, Absolute Lymphocytes 5.0 H, Absolute Monocytes 0.6, Absolute Eosinophils 0.4, Absolute Basophils 0.1, PUBS MCHC 33.0 03/16/17 1605: C-Reactive Prot, Quant 4.5 H, C-React Prot High Sens > 15.0 H, ESR Westergren 34 H Orders Miscellaneous Findings: R hip aspiration pos for Enterococcus with moderate wbcs Assessment/Plan Assessment: 76-year-old male with a past medical history of COPD, hyperlipidemia, diabetes mellitus, CAD s/p CABG in 2004 and AICD, BPH, LIAM, occult GI bleed, who presents to us with c/o weakness, and leg swelling. 1. Cellulitis of bilateral lower extremity swelling and wounds likely due to venous stasis * Dopplers negative for DVT * Unasyn discontinued * Wound care following the patient * Blood cultures negative 2. Diabetes mellitus, Hgb alc 8.3 * NovoLog sliding scale * Continue Accu-Cheks 3. Coronary artery disease status post CABG as well as AICD placement * ACS ruled out with negative troponin and EKG * Continue aspirin, carvedilol, atorvastatin, dofetilide, lisinopril * CXR negative for any acute pathology 4. Right hip pain, S/P prothesis 2 yrs ago Right hip XR showed loosening of hardware. Patient states had a previous Enterococcus pos hospitalization 10 months after hip replacement and received IV ampicillin. Records were [facility] from [facility] 03/17/17. * Right hip aspiration did not reveal purulent d/c * Right hip edith blood aspiration, pos for Enteroccoccus and moderate wbcs * ID consulted * Blood cultures/sensitivity x 2 ordered * Dr. Young will explore prosthesis for infection 5. BPH * Continue on tamsulosin 0.4 mg daily 6. COPD * Continue on Symbicort * TRC nebs 7. LIAM on CPAP * Continue CPAP -DVT prophylaxis Heparin 5000 international units 3 times a day subcutaneous - Diet CC3 -Code Status Full code Problem List: 1. CAD (coronary artery disease) 2. Cellulitis 3. S/P hip replacement 4. BPH (benign prostatic hyperplasia) 5. LIAM (obstructive sleep apnea) Pain Ratin Pain Location: N/A Pain Goal: Remain pain free Pain Plan: N/A Tomorrow's Labs & Rationales: CBC for PNA BMP for renal function Consulting Request: Consulting Specialty: Orthopedics JOURDAN SARAH 03/17/17 0923: Attending Review Statement Attending Statement Attending MD Statement: examined this patient, discuss w/resident/PA/FIBERGLASS FABRICATOR, agreed w/resident/PA/FIBERGLASS FABRICATOR, discussed with family, reviewed EMR data (avail), discussed with nursing, discussed with case mgmt, reviewed images, amended to note Attending Assessment/Plan: [id number] obese gentleman with past medical history significant for type 2 diabetes mellitus, hypertension, hyperlipidemia, COPD, coronary artery disease status post CABG, ICM, obstructive sleep apnea on CPAP, and recurrent paroxysmal A. fib not on any anticoagulants 2/2 GI bleed admitted to [facility] for pacemaker interrogation, cardiology consulted. Patient started on i/v unasyn for cellulitis change to PO, Orthopedics recommend OR for right hip pain. PT eval for d/c planning. Patient vital underwent aspiration of right hip though no purulent material, edith blood 2ml noted sent for analysis. f/u wound results/ cultures shows moderate wbc, GPC+ ?contaminant. f/u ID recommendations, f/u orthopedics, possible str d/c.
[2017-03-17 08:25] LABS: ABSOLUTE BASOPHIL COUNT 0.1 /CUMM (0.0-0.2); ABSOLUTE EOSINOPHIL COUNT 0.4 /CUMM (0.0-0.7); ABSOLUTE GRANULOCYTE CT 9.3 /CUMM (1.4-6.5); ABSOLUTE MONOCYTE COUNT 0.6 /CUMM (0.10-0.60); BASOPHIL % 0.4 % (0.0-2.0); EOSINOPHIL % 2.7 % (0-5); GRANULOCYTE % 60.2 % (42.2-75.2); MEAN CORPUSCULAR HGB 29.7 PG (27.0-31.0); MEAN CORPUSCULAR VOLUME 90.2 FL (80.0-94.0); PLATELET COUNT 155 /CUMM (130-400); RBC DISTRIBUTION WIDTH 14.4 % (11.5-14.5); RED BLOOD CELL CT 4.55 /CUMM (4.70-6.10); WHITE BLOOD CELL COUNT 15.4 /CUMM (4.8-10.8)
--- NOTE | 2017-03-17 11:20 | PN- Infect Dx ---
Subjective Subjective: Afebrile. He complains of right hip pain. Objective Last 24 Hrs of Vital Signs/I&O Vital Signs Date Time Temp Pulse Resp B/P B/P Pulse O2 O2 Flow FiO2 Mean Ox Delivery Rate 03/17 828 138/78 03/17 0828 138/78 03/17 0828 138/78 03/17 0735 97.8 71 20 138/78 95 Room Air 03/17 0103 77 92 03/16 2238 68 130/70 03/16 2208 98.1 68 20 130/70 93 Room Air 03/16 1525 98.4 70 20 134/72 93 Room Air 03/16 1154 Room Air 2.0L Intake & Output 03/17 1600 03/17 0800 03/17 0000 Intake Total 240 500 Output Total 650 300 Balance -410 200 Intake, Oral 240 500 Output, Urine 650 300 Patient 277 lb Weight Physical Exam Other Physical Findings: He appears comfortable in no acute distress Lungs are clear Heart regular rhythm with no murmur Extremities bilateral lower extremity edema with dressings intact; right hip with no overlying inflammation Results Last 24 Hours of Lab Results: Laboratory Tests 03/17 03/16 0615 1605 Chemistry C-Reactive Prot, Quant (<1.0 mg/dL) 4.5 H C-React Prot High Sens (1.0 - 3.0 mg/L) > 15.0 H Hematology CBC w Diff NO MAN DIFF REQ WBC (4.8 - 10.8 /CUMM) 15.4 H RBC (4.70 - 6.10 /CUMM) 4.55 L Hgb (14.0 - 18.0 G/DL) 13.5 L Hct (42 - 52 %) 41.0 L MCV (80.0 - 94.0 FL) 90.2 MCH (27.0 - 31.0 PG) 29.7 RDW (11.5 - 14.5 %) 14.4 Plt Count (130 - 400 /CUMM) 155 MPV (7.4 - 10.4 FL) 9.0 Gran % (42.2 - 75.2 %) 60.2 Lymphocytes % (20.5 - 51.1 %) 32.6 Monocytes % (1.7 - 9.3 %) 4.1 Eosinophils % (0 - 5 %) 2.7 Basophils % (0.0 - 2.0 %) 0.4 Absolute Granulocytes (1.4 - 6.5 /CUMM) 9.3 H Absolute Lymphocytes (1.2 - 3.4 /CUMM) 5.0 H Absolute Monocytes (0.10 - 0.60 /CUMM) 0.6 Absolute Eosinophils (0.0 - 0.7 /CUMM) 0.4 Absolute Basophils (0.0 - 0.2 /CUMM) 0.1 PUBS MCHC (33.0 - 37.0 G/DL) 33.0 ESR Westergren (0 - 10 MM) 34 H Last 24 Hours of Les Results: Right hip aspiration March 15 positive for scant growth of Enterococcus, with gram stain revealing moderate white blood cells and no organisms Assessment/Plan Impression: Stable off antibiotics with temperatures remaining normal but with white blood cell count still elevated and now with the culture of the right hip aspiration 2 days ago positive for Enterococcus. The significance of this culture is unclear but, given the loosening of his prosthesis on x-ray and his 6 month history of pain, must consider the possibility that the prosthesis is infected. This has been discussed with Dr. Martin who will plan for explantation of the prosthesis in the next several days. Of interest he was hospitalized in October 2014, 10 months after his hip replacement, with Enterococcal sepsis and the source was never identified. He was treated with a prolonged course of IV Ampicillin as he refused a JORGE, but there was apparently no evidence for a hip infection at that time. Suggestion: 1. Await surgery for explantation of his right hip prosthesis 2. Continue local wound care to both lower extremities 3. Repeat blood cultures 2 in the AM 4. Continue to follow off antibiotics pending above
[2017-03-17 15:15] VITALS: BP 120/60
[2017-03-17 22:24] VITALS: BP 110/60
[2017-03-18 06:55] VITALS: BP 116/60
--- NOTE | 2017-03-18 08:13 | PN- Housestaff ---
TYLER LOPEZ 03/18/17 0813: Subjective Follow-up For: B/L lower ext Cellulitus R hip pain s/p aspiration pos for Enterococcus Subjective: Patient has no complaints. No acute events overnight Review of Systems Constitutional: Reports: see HPI. Objective Last 24 Hrs of Vital Signs/I&O Vital Signs Date Time Temp Pulse Resp B/P B/P Pulse O2 O2 Flow FiO2 Mean Ox Delivery Rate 03/20 08 73 140/70 03/20 0820 73 140/70 03/20 0820 73 140/70 03/20 0800 95 Nasal 2.0L Cannula 03/20 0639 97.7 73 20 140/70 96 Room Air 03/20 0026 69 96 03/20 0000 Nasal 2.0L Cannula 03/19 2230 72 96 03/19 2210 78 128/76 Intake & Output 03/20 1600 03/20 0800 03/20 0000 Intake Total 240 600 Output Total Balance 240 600 Intake, Oral 240 600 Number 1 Bowel Movements Physical Exam General Appearance: Alert, Oriented X3, Cooperative, No Acute Distress HEENT: Atraumatic, PERRLA Cardiovascular: Normal S1, Normal S2 Lungs: Clear to Auscultation, Normal Air Movement Abdomen: Normal Bowel Sounds, Soft, No Tenderness Extremities: Bilateral lower ext dressing dry and intact R lower ext - full and partial thickness wounds 3x5, inner leg 3x3 serous blister L leg 5x5 partial thickness wound R foot 3x3 fluid filled blister Current Medications: Current Medications Sig/Buck Start time Last Medication Dose Route Stop Time Status Admin Acetaminophen 650 MG Q6P PRN 03/12 2100 AC PO Acetaminophen/ 1 TAB Q6P PRN 03/12 2100 DC 03/15 Hydrocodone Bitart PO 1146 Aspirin Buffered 81 MG DAILY 03/11 1338 AC 03/20 PO 0819 Atorvastatin Calcium 10 MG 1700 03/11 1700 AC 03/19 PO 1721 Budesonide/ 2 PUF BID 03/11 1339 AC 03/20 Formoterol Fumarate INH 0834 Carvedilol 6.25 MG BID 03/15 1000 AC 03/20 PO 0820 Docusate Sodium 100 MG DAILY 03/13 1000 AC 03/18 PO 0928 Dofetilide 500 MCG BID 03/18 2200 AC 03/20 PO 0821 Fish Oil 1,050 MG DAILY 03/11 1340 AC 03/20 PO 0821 Furosemide 20 MG DAILY 03/14 1511 AC 03/20 PO 0820 Heparin Sodium 5,000 UNIT Q8 03/11 1503 DC 03/19 (Porcine) OK 03/19 2300 2210 Insulin Aspart 0 TIDAC 03/16 0800 AC 03/20 SC 0753 Lactobacillus 1 CAP BID 03/16 1014 AC 03/20 Acidophilus PO 0820 Lisinopril 5 MG DAILY 03/13 1047 AC 03/20 PO 0820 Magnesium Chloride 64 MG DAILY 03/12 1000 AC 03/18 PO 0927 Morphine Sulfate 2 MG Q4P PRN 03/12 2100 DC IV Polyethylene Glycol 17 GM DAILY PRN 03/13 0330 AC PO Senna 187 MG AT BEDTIME 03/13 2200 AC 03/17 PO 2137 Tamsulosin HCl 0.4 MG DAILY 03/11 1341 AC 03/20 PO 0821 Vitamin E 400 IU DAILY 03/11 1341 AC 03/20 PO 0820 Zinc Oxide 1 GENE BID 03/12 2200 AC 03/20 [facility] 0837 Last 24 Hrs of Lab/Les Results Last 24 Hrs of Labs/Mics: Laboratory Tests 03/20/17 0715: Anion Gap 11, Estimated GFR > 60, BUN/Creatinine Ratio 17.8, CBC w Diff NO MAN DIFF REQ, RBC 4.70, MCV 89.3, MCH 29.7, RDW 15.1 H, MPV 9.1, Gran % 51.2, Lymphocytes % 40.2, Monocytes % 4.4, Eosinophils % 3.8, Basophils % 0.4, Absolute Granulocytes 5.8, Absolute Lymphocytes 4.5 H, Absolute Monocytes 0.5, Absolute Eosinophils 0.4, Absolute Basophils 0, PUBS MCHC 33.3 Assessment/Plan Assessment: 76-year-old male with a past medical history of COPD, hyperlipidemia, diabetes mellitus, CAD s/p CABG in 2003 and AICD, BPH, LIAM, occult GI bleed, who presents to us with c/o weakness, and leg swelling. 1. Cellulitis of bilateral lower extremity swelling and wounds likely due to venous stasis * Dopplers negative for DVT * Unasyn discontinued * Wound care following the patient * Blood cultures negative 2. Diabetes mellitus, Hgb alc 8.3 * NovoLog sliding scale * Continue Accu-Cheks 3. Coronary artery disease status post CABG as well as AICD placement * ACS ruled out with negative troponin and EKG * Continue aspirin, carvedilol, atorvastatin, dofetilide, lisinopril * CXR negative for any acute pathology 4. Right hip pain, S/P prothesis 2 yrs ago Right hip XR showed loosening of hardware. Patient states had a previous Enterococcus pos hospitalization 10 months after hip replacement and received IV ampicillin. Records were requested from [facility] 03/17/17. * Right hip aspiration did not reveal purulent d/c * Right hip edith blood aspiration, pos for Enteroccoccus and moderate wbcs * ID consulted * Blood cultures/sensitivity negative * Dr. Young will explore prosthesis 03/21/17 5. BPH * Continue on tamsulosin 0.4 mg daily 6. COPD * Continue on Symbicort * TRC nebs 7. LIAM on CPAP * Continue CPAP -DVT prophylaxis Heparin 5000 international units 3 times a day subcutaneous - Diet CC3 NPO after lunch 03/21/17 -Code Status Full code Problem List: 1. Diabetes mellitus 2. BPH (benign prostatic hyperplasia) 3. Septic arthritis 4. Cellulitis 5. Afib 6. LIAM (obstructive sleep apnea) 7. CAD (coronary artery disease) 8. S/P hip replacement Pain Ratin Pain Location: R hip pain Pain Goal: Remain pain free Pain Plan: Vicodin Tomorrow's Labs & Rationales: CBC BEP Consulting Request: Consulting Specialty: Orthopedics JOURDAN SARAH 03/18/17 0941: Attending MD Review Statement Attending Statement Attending MD Statement: examined this patient, discuss w/resident/PA/RN DERMATOLOGY, agreed w/resident/PA/RN DERMATOLOGY, discussed with family, reviewed EMR data (avail), discussed with nursing, discussed with case mgmt, reviewed images, amended to note Attending Assessment/Plan: [id number] obese gentleman with past medical history significant for type 2 diabetes mellitus, hypertension, hyperlipidemia, COPD, coronary artery disease status post CABG, ICM, obstructive sleep apnea on CPAP, and recurrent paroxysmal A. fib not on any anticoagulants 2/[address] [facility] for pacemaker interrogation, cardiology consulted. Orthopedics recommend OR for right hip pain. Patient vital underwent aspiration of right hip though no purulent material, edith blood 2ml noted sent for analysis. f/u wound results/cultures shows moderate wbc, GPC+. f/u ID recommendations, f/u orthopedics plan for surgery on Tuesday, ABX as per ID, possible str d/c.
--- NOTE | 2017-03-18 08:32 | PN- Orthopedic ---
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 Likely a chronic situation, he will need to have his prosthetic hip resected and a temporary antibiotic spacer implanted. This was discussed with the patient. In general, a temporary spacer can be converted to a new implant after 2 months; however, Mr. Walls's medical condition will likely preclude re-implanting him for many months. Morbid obesity, lower extremity wounds and cellulitis, poor diabetic control all suggest that he may have to live with a temporary spacer until wholesale changes to his overall health can be effected. Due to the difficulty of the planned surgical procedure and the special equipment required, his resection will be performed late 03/21/17.
[2017-03-18 09:00] LABS: ABSOLUTE BASOPHIL COUNT 0.1 /CUMM (0.0-0.2); ABSOLUTE EOSINOPHIL COUNT 0.4 /CUMM (0.0-0.7); ABSOLUTE GRANULOCYTE CT 7.2 /CUMM (1.4-6.5); ABSOLUTE LYMPH COUNT 4.4 /CUMM (1.2-3.4); ABSOLUTE MONOCYTE COUNT 0.7 /CUMM (0.10-0.60); BASOPHIL % 0.5 % (0.0-2.0); EOSINOPHIL % 2.9 % (0-5); GRANULOCYTE % 56.6 % (42.2-75.2); HEMATOCRIT 41.5 % (42-52); MEAN CORPUSCULAR HGB 29.9 PG (27.0-31.0); MEAN CORPUSCULAR HGB CONC 33.8 G/DL (33.0-37.0); MEAN CORPUSCULAR VOLUME 88.5 FL (80.0-94.0); MEAN PLATELET VOLUME 8.3 FL (7.4-10.4); PLATELET COUNT 171 /CUMM (130-400); RBC DISTRIBUTION WIDTH 14.7 % (11.5-14.5); RED BLOOD CELL CT 4.69 /CUMM (4.70-6.10); WHITE BLOOD CELL COUNT 12.7 /CUMM (4.8-10.8)
--- NOTE | 2017-03-18 11:06 | PN- Infect Dx ---
Subjective Subjective: Afebrile. He notes intermittent right hip pain. He does not report any pain in his lower extremities. Objective Last 24 Hrs of Vital Signs/I&O Vital Signs Date Time Temp Pulse Resp B/P B/P Pulse O2 O2 Flow FiO2 Mean Ox Delivery Rate 03/18 0928 69 116/60 03/18 0928 69 116/60 03/18 0655 98.7 69 20 116/60 92 Room Air 03/18 0000 Nasal 2.0L Cannula 03/17 2224 98.7 69 20 110/60 92 Room Air 03/17 2137 68 110/60 03/17 1600 Room Air 03/17 1515 97.4 63 20 120/60 92 Room Air Intake & Output 03/18 1600 03/18 0800 03/18 0000 Intake Total 400 Output Total 100 200 Balance -100 -200 400 Intake, Oral 400 Number 1 1 Bowel Movements Output, Urine 100 200 Patient 277 lb Weight Weight Chair scale Measurement Method Physical Exam Other Physical Findings: He appears comfortable in no acute distress Lungs are clear Heart regular rhythm with no murmur Extremities right hip with no overlying inflammation; bilateral lower extremity edema with no erythema Results Last 24 Hours of Lab Results: Laboratory Tests 03/18 0848 Chemistry Sodium (137 - 145 mmol/L) 138 Potassium (3.5 - 5.1 mmol/L) 4.1 Chloride (98 - 107 mmol/L) 102 Carbon Dioxide (22 - 30 mmol/L) 25 Anion Gap (5 - 16) 11 BUN (9 - 20 mg/dL) 18 Creatinine (0.7 - 1.2 mg/dL) 0.9 Estimated GFR (>60 ml/min) > 60 BUN/Creatinine Ratio (7 - 25 %) 20.0 Hematology CBC w Diff MAN DIFF ORDERED WBC (4.8 - 10.8 /CUMM) 12.7 H RBC (4.70 - 6.10 /CUMM) 4.69 L Hgb (14.0 - 18.0 G/DL) 14.0 Hct (42 - 52 %) 41.5 L MCV (80.0 - 94.0 FL) 88.5 MCH (27.0 - 31.0 PG) 29.9 RDW (11.5 - 14.5 %) 14.7 H Plt Count (130 - 400 /CUMM) 171 MPV (7.4 - 10.4 FL) 8.3 Gran % (42.2 - 75.2 %) 56.6 Lymphocytes % (20.5 - 51.1 %) 34.5 Monocytes % (1.7 - 9.3 %) 5.5 Eosinophils % (0 - 5 %) 2.9 Basophils % (0.0 - 2.0 %) 0.5 Absolute Granulocytes (1.4 - 6.5 /CUMM) 7.2 H Segmented Neutrophils (42.2 - 75.2 %) Pending Absolute Lymphocytes (1.2 - 3.4 /CUMM) 4.4 H Absolute Monocytes (0.10 - 0.60 /CUMM) 0.7 H Absolute Eosinophils (0.0 - 0.7 /CUMM) 0.4 Absolute Basophils (0.0 - 0.2 /CUMM) 0.1 PUBS MCHC (33.0 - 37.0 G/DL) 33.8 Last 24 Hours of Les Results: Right hip joint aspiration from the OR March 15 positive for Enterococcus sensitive to Ampicillin Assessment/Plan Impression: Stable off antibiotics with temperatures remaining normal but with white blood cell count still elevated, though decreased from yesterday, with the culture of the right hip aspiration 3 days ago positive for Enterococcus, suggesting an infection of the right hip prosthesis. This has been discussed with Dr. Young who is planning on explantation of the prosthesis on March 21. Of interest he was hospitalized in October 2014, 10 months after his hip replacement, with Enterococcal sepsis, treated with a prolonged course of IV Ampicillin, with the source never identified and with apparently no evidence of a hip infection at that time. Suggestion: 1. Await explantation of his right hip prosthesis on March 21 2. Continue local wound care to both lower extremities 3. Continue to follow off antibiotics pending above
--- NOTE | 2017-03-18 11:47 | PN- Cardiology ---
Subjective Subjective: Sitting in a chair and without complaints. Objective Vital Signs and I&Os Vital Signs Date Time Temp Pulse Resp B/P B/P Pulse O2 O2 Flow FiO2 Mean Ox Delivery Rate 03/18 09 69 116/60 03/18 09 69 116/60 03/18 0655 98.7 69 20 116/60 92 Room Air 03/18 0000 Nasal 2.0L Cannula 03/17 2224 98.7 69 20 110/60 92 Room Air 03/17 2137 68 110/60 03/17 1600 Room Air 03/17 1515 97.4 63 20 120/60 92 Room Air Intake & Output 03/18 1600 03/18 0800 03/18 0000 03/17 1600 03/17 0800 03/17 0000 Intake Total 400 600 240 500 Output Total 100 200 150 650 300 Balance -100 -200 400 450 -410 200 Intake, Oral 400 600 240 500 Number 1 1 Bowel Movements Output, Urine 100 200 150 650 300 Patient 277 lb 277 lb Weight Weight Chair scale Measurement Method Physical Exam: Well-developed, morbidly obese elderly male in no acute distress. Vital signs: See above. Lungs: Clear to auscultation bilaterally. Heart: S1, S2 with grade 1-2/6 systolic murmur. Abdomen: Soft, nontender, positive bowel sounds. Extremities: Bilateral lower extremities bandaged with edema, erythema, Current Medications: Current Medications Sig/Buck Start time Last Medication Dose Route Stop Time Status Admin Acetaminophen 650 MG Q6P PRN 03/12 2100 AC PO Acetaminophen/ 1 TAB Q6P PRN 03/12 2100 AC 03/15 Hydrocodone Bitart PO 1146 Aspirin Buffered 81 MG DAILY 03/11 1338 AC 03/18 PO 09 Atorvastatin Calcium 10 MG 1700 03/11 1700 AC 03/17 PO 1613 Budesonide/ 2 PUF BID 03/11 1339 AC 03/18 Formoterol Fumarate INH 0927 Carvedilol 6.25 MG BID 03/15 1000 AC 03/18 PO 09 Docusate Sodium 100 MG DAILY 03/13 1000 AC 03/18 PO 0928 Dofetilide 500 MCG BID 03/18 2200 AC PO Dofetilide 500 MCG BID 03/11 2200 DC 03/18 PO 09 Fish Oil 1,050 MG DAILY 03/11 1340 AC 03/18 PO 09 Furosemide 20 MG DAILY 07/10 1511 AC 03/18 PO 0927 Heparin Sodium 5,000 UNIT Q8 03/11 1503 AC 03/18 (Porcine) SC 0639 Insulin Aspart 0 TIDAC 03/16 0800 AC 03/18 SC 0911 Lactobacillus 1 CAP BID 03/16 1014 AC 03/18 Acidophilus PO 0927 Lisinopril 5 MG DAILY 03/13 1047 AC 03/18 PO 0928 Magnesium Chloride 64 MG DAILY 03/12 1000 AC 03/18 PO 0927 Morphine Sulfate 2 MG Q4P PRN 03/12 2100 AC IV Patient Medication 1 ED .STK-MED ONE 03/17 1412 AL Teaching ED 03/17 1413 Polyethylene Glycol 17 GM DAILY PRN 03/13 0330 AC PO Senna 187 MG AT BEDTIME 03/13 2200 AC 03/17 PO 2137 Tamsulosin HCl 0.4 MG DAILY 03/11 1341 AC 03/18 PO 0928 Vitamin E 400 IU DAILY 03/11 1341 AC 03/18 PO 0927 Zinc Oxide 1 GENE BID 03/12 2200 03/18 [facility] 0933 Results Last 48 Hrs of Labs/Mics: Laboratory Tests 03/18/17 0848: Anion Gap 11, Estimated GFR > 60, BUN/Creatinine Ratio 20.0, CBC w Diff MAN DIFF ORDERED, RBC 4.69 L, MCV 88.5, MCH 29.9, RDW 14.7 H, MPV 8.3, Gran % 56.6, Lymphocytes % 34.5, Monocytes % 5.5, Eosinophils % 2.9, Basophils % 0.5, Absolute Granulocytes 7.2 H, Absolute Lymphocytes 4.4 H, Absolute Monocytes 0.7 H, Absolute Eosinophils 0.4, Absolute Basophils 0.1, Platelet Estimate Pending, Anisocytosis Pending, PUBS MCHC 33.8 03/17/17 0615: CBC w Diff NO MAN DIFF REQ, RBC 4.55 L, MCV 90.2, MCH 29.7, RDW 14.4, MPV 9.0, Gran % 60.2, Lymphocytes % 32.6, Monocytes % 4.1, Eosinophils % 2.7, Basophils % 0.4, Absolute Granulocytes 9.3 H, Absolute Lymphocytes 5.0 H, Absolute Monocytes 0.6, Absolute Eosinophils 0.4, Absolute Basophils 0.1, PUBS MCHC 33.0 03/16/17 1605: C-Reactive Prot, Quant 4.5 H, C-React Prot High Sens > 15.0 H, ESR Westergren 34 H Assessment/Plan Assessment/Plan [id number] w/ hx of morbid obesity, LIAM on CPAP, COPD, HTN, HLD, DM, CAD/ICM (s/ p IMI in 1998, CABG 4 w/ WHITE to LAD and individual SVGs to Dx, OM, PDA & MAZE) , and recurrent PAF who presented in an unkempt state via ambulance after being discovered on the floor of his home several hours after he had fallen w/ findings of a UTI, bilateral lower extremity cellulitis, edema, etc. Right hip aspiration culture (03/15/2017) growing Enterococcus consistent with infected prosthesis. Remains afebrile off antimicrobial therapy with elevated WBC count that has improved. Plan is for explantation of right hip prosthesis by Dr. Young on 03/21/2017. His last pharmacologic stress test was performed on 11/25/2014 and was negative for ischemia. Reasonable to repeat a pharmacologic stress test prior to planned orthopedic surgery. Recommendations: * Continue on telemetry w/ strict inputs/outputs and daily weights. * BiV pacemaker/defibrillator functioning properly without the need for reprogramming. * Continue diuretic therapy w/ improved renal function, in the hope of improving edema. * Continue beta guillermo, antiarrhythmic, antiplatelets, statin, CLARISA inhibitor, etc. * Continue to follow-up on infectious disease and orthopedic surgery recommendations. * DVT prophylaxis.
[2017-03-18 14:47] VITALS: BP 118/64
[2017-03-18 23:30] VITALS: BP 140/70
[2017-03-19 06:52] VITALS: BP 160/86
[2017-03-19 08:43] LABS: ABSOLUTE BASOPHIL COUNT 0 /CUMM (0.0-0.2); ABSOLUTE EOSINOPHIL COUNT 0.4 /CUMM (0.0-0.7); ABSOLUTE GRANULOCYTE CT 6.5 /CUMM (1.4-6.5); ABSOLUTE MONOCYTE COUNT 0.8 /CUMM (0.10-0.60); BASOPHIL % 0.4 % (0.0-2.0); EOSINOPHIL % 3.5 % (0-5); GRANULOCYTE % 50.8 % (42.2-75.2); HEMATOCRIT 42.8 % (42-52); MEAN CORPUSCULAR HGB 29.8 PG (27.0-31.0); MEAN CORPUSCULAR HGB CONC 33.5 G/DL (33.0-37.0); PLATELET COUNT 178 /CUMM (130-400); RBC DISTRIBUTION WIDTH 14.5 % (11.5-14.5); RED BLOOD CELL CT 4.81 /CUMM (4.70-6.10); WHITE BLOOD CELL COUNT 12.9 /CUMM (4.8-10.8)
--- NOTE | 2017-03-19 10:26 | NUR ---
PHYSICAL THERAPY. Pt CURRENTLY HAVING HIS LE DRESSINGS CHANGED BY RN. Pt REFUSING TO WORK WITH PT LATER TODAY, REPORTING ANXIETY REGARDING HIS UPCOMING R HIP PROCEDURE FOR RESECTION+SPACER PLACEMENT. Pt HAS BEEN MOBILIZING IN THE ROOM W/ NURSING STAFF. PT WILL F/U APPROPRIATE.
--- NOTE | 2017-03-19 14:42 | PN- Infect Dx ---
Subjective Subjective: Afebrile without complaint Objective Last 24 Hrs of Vital Signs/I&O Vital Signs Date Time Temp Pulse Resp B/P B/P Pulse O2 O2 Flow FiO2 Mean Ox Delivery Rate 03/19 1012 69 160/86 03/19 1012 69 160/86 03/19 1012 69 160/86 03/19 0800 94 Nasal 3.0L Cannula 03/19 0652 98.1 69 20 160/86 94 Room Air 03/19 0202 72 94 03/19 0000 94 CPAP 2.0L 03/18 2330 97.9 76 20 140/70 97 Nasal 2.0L Cannula 03/18 2145 78 128/70 03/18 1447 97.7 71 20 118/64 92 Room Air Intake & Output 03/19 1600 03/19 0800 03/19 0000 Intake Total 600 0 240 Output Total 300 600 900 Balance 300 -600 -660 Intake, Oral 600 0 240 Number 2 2 Bowel Movements Output, Urine 300 600 900 Physical Exam Other Physical Findings: He appears comfortable in no acute distress Lungs are clear Heart regular rate with no murmur Extremities dressings intact over both lower extremities Results Last 24 Hours of Lab Results: Laboratory Tests 03/19 0640 Hematology CBC w Diff NO MAN DIFF REQ WBC (4.8 - 10.8 /CUMM) 12.9 H RBC (4.70 - 6.10 /CUMM) 4.81 Hgb (14.0 - 18.0 G/DL) 14.3 Hct (42 - 52 %) 42.8 MCV (80.0 - 94.0 FL) 89.0 MCH (27.0 - 31.0 PG) 29.8 RDW (11.5 - 14.5 %) 14.5 Plt Count (130 - 400 /CUMM) 178 MPV (7.4 - 10.4 FL) 9.0 Gran % (42.2 - 75.2 %) 50.8 Lymphocytes % (20.5 - 51.1 %) 39.1 Monocytes % (1.7 - 9.3 %) 6.2 Eosinophils % (0 - 5 %) 3.5 Basophils % (0.0 - 2.0 %) 0.4 Absolute Granulocytes (1.4 - 6.5 /CUMM) 6.5 Absolute Lymphocytes (1.2 - 3.4 /CUMM) 5.0 H Absolute Monocytes (0.10 - 0.60 /CUMM) 0.8 H Absolute Eosinophils (0.0 - 0.7 /CUMM) 0.4 Absolute Basophils (0.0 - 0.2 /CUMM) 0 PUBS MCHC (33.0 - 37.0 G/DL) 33.5 Last 24 Hours of Les Results: Blood cultures 2 March 18 negative Assessment/Plan Impression: Stable off antibiotics with temperatures remaining normal but with white blood cell count still mildly elevated, awaiting removal of the right hip prosthesis on March 21 for a presumed infection, with the recent aspiration under fluoroscopy 4 days ago positive for Enterococcus. Of interest he was hospitalized in October 2014, 10 months after his hip replacement, with Enterococcal sepsis, treated with a 4 week course of IV Ampicillin, with the source never identified and with no evidence of a hip infection at that time. Suggestion: 1. Await explantation of his right hip prosthesis on March 21 2. Continue local wound care to both lower extremities 3. Continue to follow off antibiotics pending above, but can begin Ampicillin 2 g IV every 6 hours postoperatively on March [address] Burciaga will be covering me until March 28
--- NOTE | 2017-03-19 17:04 | PN- Att Addend ---
Attending Addendum Attending Brief Note Patient seen and examined. Plan of care discussed with the medical team and the patient. Available lab work and radiology test reports were reviewed. Patient is sitting in chair. His family is at the bedside. Patient denies any fever or chills. He says the pain that gets worse in right hip when he moves. Vital Signs Date Time Temp Pulse Resp B/P B/P Pulse O2 O2 Flow FiO2 Mean Ox Delivery Rate 03/19 1012 69 160/86 03/19 1012 69 160/86 03/19 1012 69 160/86 03/19 0800 94 Nasal 3.0L Cannula 03/19 0652 98.1 69 20 160/86 94 Room Air 03/19 0202 72 94 03/19 0000 94 CPAP 2.0L 03/18 2330 97.9 76 20 140/70 97 Nasal 2.0L Cannula 03/18 2145 78 128/70 Intake & Output 03/19 1600 03/19 0800 03/19 0000 Intake Total 600 0 240 Output Total 300 600 900 Balance 300 -600 -660 Intake, Oral 600 0 240 Number 2 2 Bowel Movements Output, Urine 300 600 900 Exam: General: Patient awake alert oriented without any distress CVS: S1 plus S2 without any murmur or gallops Chest: Few scattered crepitation without any wheeze. There is no respiratory distress. 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 without any focal neuro deficit and follows command appropriately Extremities: Trace edema in lower legs; no clubbing or cyanosis noted Laboratory Tests 03/19 0640 Hematology CBC w Diff NO MAN DIFF REQ WBC (4.8 - 10.8 /CUMM) 12.9 H RBC (4.70 - 6.10 /CUMM) 4.81 Hgb (14.0 - 18.0 G/DL) 14.3 Hct (42 - 52 %) 42.8 MCV (80.0 - 94.0 FL) 89.0 MCH (27.0 - 31.0 PG) 29.8 RDW (11.5 - 14.5 %) 14.5 Plt Count (130 - 400 /CUMM) 178 MPV (7.4 - 10.4 FL) 9.0 Gran % (42.2 - 75.2 %) 50.8 Lymphocytes % (20.5 - 51.1 %) 39.1 Monocytes % (1.7 - 9.3 %) 6.2 Eosinophils % (0 - 5 %) 3.5 Basophils % (0.0 - 2.0 %) 0.4 Absolute Granulocytes (1.4 - 6.5 /CUMM) 6.5 Absolute Lymphocytes (1.2 - 3.4 /CUMM) 5.0 H Absolute Monocytes (0.10 - 0.60 /CUMM) 0.8 H Absolute Eosinophils (0.0 - 0.7 /CUMM) 0.4 Absolute Basophils (0.0 - 0.2 /CUMM) 0 PUBS MCHC (33.0 - 37.0 G/DL) 33.5 Assessment * 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 Patient however is concerned with prolonged bedrest after surgery. * Cellulitis lower extremity * Diabetes mellitus * CAD status post CABG * Status post AICD Plan * Continue to follow of antibiotics. Patient clinically stable this point. * Plans noted for explantation of the prosthesis on Tuesday. Patient will elect to discuss surgery again with Dr. Young * No need to check daily CBC unless patient's febrile. CBC can be checked every couple of days. Patient only to be nothing by mouth tomorrow night for surgery and Tuesday. Note that as per orthopedic surgery will be planned late Tuesday afternoon.
--- NOTE | 2017-03-19 20:50 | PN- Housestaff ---
Subjective Follow-up For: Cellulitus septic arthritis Complaints: patient says that he feels good except that he has had a lot of diarrhea. Tele-Events Since Last Visit: Patient is having pacing spikes rate 69-80. Subjective: Patient was seen and examined he states that his legs do not hurt. He is upset that he has had some very loose stools recently. Review of Systems Constitutional: Reports: no symptoms. Gastrointestinal: Reports: diarrhea. Objective Last 24 Hrs of Vital Signs/I&O Vital Signs Date Time Temp Pulse Resp B/P B/P Pulse O2 O2 Flow FiO2 Mean Ox Delivery Rate 03/19 1012 69 160/86 03/19 1012 69 160/86 03/19 1012 69 160/86 03/19 0800 94 Nasal 2.0L Cannula 03/19 0652 98.1 69 20 160/86 94 Room Air 03/19 0202 72 94 03/19 0000 94 CPAP 2.0L 03/18 2330 97.9 76 20 140/70 97 Nasal 2.0L Cannula 03/18 2145 78 128/70 Intake & Output 03/19 1600 03/19 0800 03/19 0000 Intake Total 600 0 240 Output Total 300 600 900 Balance 300 -600 -660 Intake, Oral 600 0 240 Number 2 2 Bowel Movements Output, Urine 300 600 900 Physical Exam General Appearance: Alert, Oriented X3, Cooperative, No Acute Distress Skin: No Rashes, No Breakdown, No Significant Lesion HEENT: Atraumatic, PERRLA, EOMI, Mucous Membr. moist/pink Cardiovascular: Regular Rate, Normal S1, Normal S2, No Murmurs, Gallops Lungs: Clear to Auscultation, Normal Air Movement Abdomen: Normal Bowel Sounds, Soft, No Tenderness Extremities: patient has bilateral cellulitis on the dorsum of his foot and the anterior aspect of his legs lower Vascular: Normal Pulses, Pulses Symmetrical Current Medications: Current Medications Sig/Buck Start time Last Medication Dose Route Stop Time Status Admin Acetaminophen 650 MG Q6P PRN 03/12 2100 AC PO Acetaminophen/ 1 TAB Q6P PRN 03/12 2100 AC 03/15 Hydrocodone Bitart PO 1146 Aspirin Buffered 81 MG DAILY 03/11 1338 AC 03/19 PO 1012 Atorvastatin Calcium 10 MG 1700 03/11 1700 AC 03/19 PO 1721 Budesonide/ 2 PUF BID 03/11 1339 AC 03/19 Formoterol Fumarate INH 1015 Carvedilol 6.25 MG BID 03/15 1000 AC 03/19 PO 1012 Docusate Sodium 100 MG DAILY 03/13 1000 AC 03/18 PO 0928 Dofetilide 500 MCG BID 03/18 2200 AC 03/19 PO 1012 Fish Oil 1,050 MG DAILY 03/11 1340 AC 03/19 PO 1013 Furosemide 20 MG DAILY 03/14 1511 AC 03/19 PO 1012 Heparin Sodium 5,000 UNIT Q8 03/11 1503 AC 03/19 (Porcine) SC 03/19 2300 1329 Insulin Aspart 0 TIDAC 03/16 0800 AC 03/19 SC 1721 Lactobacillus 1 CAP BID 03/16 1014 AC 03/19 Acidophilus PO 1012 Lisinopril 5 MG DAILY 03/13 1047 AC 03/19 PO 1012 Magnesium Chloride 64 MG DAILY 03/12 1000 AC 03/18 PO 0927 Morphine Sulfate 2 MG Q4P PRN 03/12 2100 AC IV Polyethylene Glycol 17 GM DAILY PRN 03/13 0330 AC PO Senna 187 MG AT BEDTIME 03/13 2200 AC 03/17 PO 2137 Tamsulosin HCl 0.4 MG DAILY 03/11 1341 AC 03/19 PO 1012 Vitamin E 400 IU DAILY 03/11 1341 AC 03/19 PO 1012 Zinc Oxide 1 GENE BID 03/12 2200 AC 03/19 TOP 1248 Last 24 Hrs of Lab/Les Results Last 24 Hrs of Labs/Mics: Laboratory Tests 03/19/17 0640: CBC w Diff NO MAN DIFF REQ, RBC 4.81, MCV 89.0, MCH 29.8, RDW 14.5, MPV 9.0, Gran % 50.8, Lymphocytes % 39.1, Monocytes % 6.2, Eosinophils % 3.5, Basophils % 0.4, Absolute Granulocytes 6.5, Absolute Lymphocytes 5.0 H, Absolute Monocytes 0.8 H, Absolute Eosinophils 0.4, Absolute Basophils 0, PUBS MCHC 33.5 Assessment/Plan Assessment: 76-year-old male with a past medical history of COPD, hyperlipidemia, diabetes mellitus, CAD s/p CABG in 2004 and AICD, BPH, LIAM, occult GI bleed, who presents to us with c/o weakness, and leg swelling. 1. Cellulitis of bilateral lower extremity swelling and wounds likely due to venous stasis * Dopplers negative for DVT * Wound care following the patient * Blood cultures negative 2. Diabetes mellitus, Hgb alc 8.3 * NovoLog sliding scale * Continue Accu-Cheks 3. Coronary artery disease status post CABG as well as AICD placement * ACS ruled out with negative troponin and EKG * Continue aspirin, carvedilol, atorvastatin, dofetilide, lisinopril * CXR negative for any acute pathology 4. Right hip pain, S/P prothesis 2 yrs ago Right hip XR showed loosening of hardware. Patient states had a previous Enterococcus pos hospitalization 10 months after hip replacement and received IV ampicillin. Records were requested from [facility] 03/17/17. * Right hip aspiration did not reveal purulent d/c * Right hip edith blood aspiration, pos for Enteroccoccus and moderate wbcs * ID consulted: Stable off antibiotics with temperatures remaining normal but with white blood cell count still mildly elevated, awaiting removal of the right hip prosthesis on March 21 for a presumed infection, with the recent aspiration under fluoroscopy 4 days ago positive for Enterococcus. * Continue to follow off antibiotics but began ampicillin 2 g IV every 6 hours postoperatively on March 21 pending OR cultures * Blood cultures/sensitivity x 2 ordered 5. BPH * Continue on tamsulosin 0.4 mg daily 6. COPD * Continue on Symbicort * TR nebs 7. LIAM on CPAP * Continue CPAP 8. Diarrhea - patient is on senna and MiraLAX and is asking if he can have those held. -DVT prophylaxis Heparin 5000 international units 3 times a day subcutaneous - Diet Nothing by mouth -Code Status Full code Problem List: 1. Cellulitis 2. Diarrhea 3. LIAM (obstructive sleep apnea) 4. CAD (coronary artery disease) 5. BPH (benign prostatic hyperplasia) 6. Septic arthritis Pain Ratin Pain Location: none Pain Goal: Remain pain free Pain Plan: n Tomorrow's Labs & Rationales: .cbc bmp Consulting Request: Consulting Specialty: Orthopedics
[2017-03-20 06:39] VITALS: BP 140/70
[2017-03-20 08:29] LABS: ABSOLUTE BASOPHIL COUNT 0 /CUMM (0.0-0.2); ABSOLUTE EOSINOPHIL COUNT 0.4 /CUMM (0.0-0.7); ABSOLUTE GRANULOCYTE CT 5.8 /CUMM (1.4-6.5); ABSOLUTE LYMPH COUNT 4.5 /CUMM (1.2-3.4); ABSOLUTE MONOCYTE COUNT 0.5 /CUMM (0.10-0.60); BASOPHIL % 0.4 % (0.0-2.0); EOSINOPHIL % 3.8 % (0-5); GRANULOCYTE % 51.2 % (42.2-75.2); MEAN CORPUSCULAR HGB 29.7 PG (27.0-31.0); MEAN CORPUSCULAR HGB CONC 33.3 G/DL (33.0-37.0); MEAN CORPUSCULAR VOLUME 89.3 FL (80.0-94.0); MEAN PLATELET VOLUME 9.1 FL (7.4-10.4); PLATELET COUNT 175 /CUMM (130-400); RBC DISTRIBUTION WIDTH 15.1 % (11.5-14.5); WHITE BLOOD CELL COUNT 11.3 /CUMM (4.8-10.8)
--- NOTE | 2017-03-20 09:41 | PN- Housestaff ---
Subjective Follow-up For: R hip pain s/p aspiration pos for Enterococcus Cellulitus Subjective: Patient would like second opinion on R hip exploration Review of Systems Constitutional: Reports: see HPI. Objective Last 24 Hrs of Vital Signs/I&O Vital Signs Date Time Temp Pulse Resp B/P B/P Pulse O2 O2 Flow FiO2 Mean Ox Delivery Rate 03/20 1600 Nasal 2.0L Cannula 03/20 1459 99.0 69 20 116/60 96 Nasal 2.0L Cannula 03/20 0821 73 140/70 03/20 0820 73 140/70 03/20 0820 73 140/70 03/20 0800 95 Nasal 2.0L Cannula 03/20 0639 97.7 73 20 140/70 96 Room Air 03/20 0026 69 96 03/20 0000 Nasal 2.0L Cannula 03/19 2230 72 96 03/19 2210 78 128/76 Intake & Output 03/20 1600 03/20 0800 03/20 0000 Intake Total 400 240 600 Output Total Balance 400 240 600 Intake, Oral 400 240 600 Number 1 Bowel Movements Physical Exam General Appearance: Alert, Oriented X3, Cooperative HEENT: Atraumatic, PERRLA Cardiovascular: Normal S1, Normal S2 Abdomen: Normal Bowel Sounds, Soft, No Tenderness Extremities: Bilateral dressing dry and intact Current Medications: Current Medications Sig/Buck Start time Last Medication Dose Route Stop Time Status Admin Acetaminophen 650 MG Q6P PRN 03/12 2100 AC PO Acetaminophen/ 1 TAB Q6P PRN 03/12 2100 DC 03/15 Hydrocodone Bitart PO 1146 Aspirin Buffered 81 MG DAILY 03/11 1338 AC 03/20 PO 0819 Atorvastatin Calcium 10 MG 1700 03/11 1700 AC 03/19 PO 1721 Budesonide/ 2 PUF BID 03/11 1339 AC 03/20 Formoterol Fumarate INH 0834 Carvedilol 6.25 MG BID 03/15 1000 AC 03/20 PO 0820 Docusate Sodium 100 MG DAILY 03/13 1000 AC 03/18 PO 0928 Dofetilide 500 MCG BID 03/18 2200 AC 03/20 PO 0821 Fish Oil 1,050 MG DAILY 03/11 1340 AC 03/20 PO 0821 Furosemide 20 MG DAILY 03/14 1511 AC 03/20 PO 0820 Heparin Sodium 5,000 UNIT Q8 03/11 1503 DC 03/19 (Porcine) SC 03/19 2300 2210 Insulin Aspart 0 TIDAC 03/16 0800 03/20 SC 1218 Lactobacillus 1 CAP BID 03/16 1014 AC 03/20 Acidophilus PO 0820 Lisinopril 5 MG DAILY 03/13 1047 03/20 PO 0820 Magnesium Chloride 64 MG DAILY 03/12 1000 AC 03/18 PO 0927 Morphine Sulfate 2 MG Q4P PRN 03/12 2100 DC IV Polyethylene Glycol 17 GM DAILY PRN 03/13 0330 PO Senna 187 MG AT BEDTIME 03/13 2200 03/17 PO 2137 Tamsulosin HCl 0.4 MG DAILY 03/11 1341 AC 03/20 PO 0821 Vitamin E 400 IU DAILY 03/11 1341 AC 03/20 PO 0820 Zinc Oxide 1 GENE BID 03/12 2200 03/20 TOP 0837 Last 24 Hrs of Lab/Les Results Last 24 Hrs of Labs/Mics: Laboratory Tests 03/20/17 0715: Anion Gap 11, Estimated GFR > 60, BUN/Creatinine Ratio 17.8, CBC w Diff NO MAN DIFF REQ, RBC 4.70, MCV 89.3, MCH 29.7, RDW 15.1 H, MPV 9.1, Gran % 51.2, Lymphocytes % 40.2, Monocytes % 4.4, Eosinophils % 3.8, Basophils % 0.4, Absolute Granulocytes 5.8, Absolute Lymphocytes 4.5 H, Absolute Monocytes 0.5, Absolute Eosinophils 0.4, Absolute Basophils 0, PUBS MCHC 33.3 Assessment/Plan Assessment: 76-year-old male with a past medical history of COPD, hyperlipidemia, diabetes mellitus, CAD s/p CABG in 2003 and AICD, BPH, LIAM, occult GI bleed, who presents to us with c/o weakness, and leg swelling. 1. Cellulitis of bilateral lower extremity swelling and wounds likely due to venous stasis * Dopplers negative for DVT * Wound care following the patient * Blood cultures negative 2. Diabetes mellitus, Hgb alc 8.3 * NovoLog sliding scale * Continue Accu-Cheks 3. Coronary artery disease status post CABG as well as AICD placement * ACS ruled out with negative troponin and EKG * Continue aspirin, carvedilol, atorvastatin, dofetilide, lisinopril * CXR negative for any acute pathology 4. Right hip pain, S/P prothesis 2 yrs ago Right hip XR showed loosening of hardware. Patient states had a previous Enterococcus pos hospitalization 10 months after hip replacement and received IV ampicillin. Records were requested from [facility] 03/17/17. * Right hip aspiration did not reveal purulent d/c * Right hip edith blood aspiration, pos for Enteroccoccus and moderate wbcs * ID consulted: Stable off antibiotics with temperatures remaining normal but with white blood cell count still mildly elevated, awaiting removal of the right hip prosthesis on March 21 for a presumed infection, with the recent aspiration under fluoroscopy 4 days ago positive for Enterococcus. * Continue to follow off antibiotics but began ampicillin 2 g IV every 6 hours postoperatively on March 21 pending OR cultures * Blood cultures/sensitivity x 2 - negative (prelim report) * 2nd opinion with Dr. Hearn as per patient's request 5. BPH * Continue on tamsulosin 0.4 mg daily 6. COPD * Continue on Symbicort * TRC nebs 7. LIAM on CPAP * Continue CPAP 8. Diarrhea - patient is on senna and MiraLAX and is asking if he can have those held. -DVT prophylaxis Heparin 5000 international units 3 times a day subcutaneous - Diet Nothing by mouth -Code Status Full code Problem List: 1. CAD (coronary artery disease) 2. LIAM (obstructive sleep apnea) 3. BPH (benign prostatic hyperplasia) 4. Cellulitis 5. Septic arthritis Pain Ratin Pain Location: N/A Pain Goal: Remain pain free Pain Plan: N/A Tomorrow's Labs & Rationales: None Consulting Request: Consulting Specialty: Orthopedics
--- NOTE | 2017-03-20 12:17 | PN- Att Addend ---
Attending Addendum Attending Brief Note Patient seen and examined. Plan of care discussed with the medical team and the patient. Available lab work and radiology test reports were reviewed. Patient is sitting in chair. Patient denies any fever or chills. He says the pain that gets worse in right hip when he moves. Vital Signs Date Time Temp Pulse Resp B/P B/P Pulse O2 O2 Flow FiO2 Mean Ox Delivery Rate 03/20 0821 73 140/70 03/20 0820 73 140/70 03/20 0820 73 140/70 03/20 0800 95 Nasal 2.0L Cannula 03/20 0639 97.7 73 20 140/70 96 Room Air 03/20 0026 69 96 03/20 0000 Nasal 2.0L Cannula 03/19 2230 72 96 03/19 2210 78 128/76 Intake & Output 03/20 1600 03/20 0800 03/20 0000 Intake Total 240 600 Output Total Balance 240 600 Intake, Oral 240 600 Number 1 Bowel Movements Exam: General: Patient is morbidly obese who is awake alert oriented without any distress CVS: S1 plus S2 without any murmur or gallops Chest: Few scattered crepitation without any wheeze. There is no respiratory distress. Abdomen: Soft nontender, bowel sound present, no guarding or rebound INSOLE TAPER: Awake alert oriented without any focal neuro deficit and follows command appropriately Extremities: Bilateral chronic lower extremity edema is noted ; no clubbing or cyanosis noted Laboratory Tests 03/20 0715 Chemistry Sodium (137 - 145 mmol/L) 138 Potassium (3.5 - 5.1 mmol/L) 4.0 Chloride (98 - 107 mmol/L) 103 Carbon Dioxide (22 - 30 mmol/L) 23 Anion Gap (5 - 16) 11 BUN (9 - 20 mg/dL) 16 Creatinine (0.7 - 1.2 mg/dL) 0.9 Estimated GFR (>60 ml/min) > 60 BUN/Creatinine Ratio (7 - 25 %) 17.8 Hematology CBC w Diff NO MAN DIFF REQ WBC (4.8 - 10.8 /CUMM) 11.3 H RBC (4.70 - 6.10 /CUMM) 4.70 Hgb (14.0 - 18.0 G/DL) 14.0 Hct (42 - 52 %) 42.0 MCV (80.0 - 94.0 FL) 89.3 MCH (27.0 - 31.0 PG) 29.7 RDW (11.5 - 14.5 %) 15.1 H Plt Count (130 - 400 /CUMM) 175 MPV (7.4 - 10.4 FL) 9.1 Gran % (42.2 - 75.2 %) 51.2 Lymphocytes % (20.5 - 51.1 %) 40.2 Monocytes % (1.7 - 9.3 %) 4.4 Eosinophils % (0 - 5 %) 3.8 Basophils % (0.0 - 2.0 %) 0.4 Absolute Granulocytes (1.4 - 6.5 /CUMM) 5.8 Absolute Lymphocytes (1.2 - 3.4 /CUMM) 4.5 H Absolute Monocytes (0.10 - 0.60 /CUMM) 0.5 Absolute Eosinophils (0.0 - 0.7 /CUMM) 0.4 Absolute Basophils (0.0 - 0.2 /CUMM) 0 PUBS MCHC (33.0 - 37.0 G/DL) 33.3 Assessment * 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 Patient however is concerned with prolonged bedrest after surgery. * Cellulitis lower extremity * Diabetes mellitus * CAD status post CABG * Status post AICD Plan * Continue to follow of antibiotics. Patient clinically stable this point. * Plans noted for explantation of the prosthesis on Tuesday. Patient will like to discuss surgery again with Dr. Young. Patient is interested in a second opinion. We will ask Dr. Hearn of infection disease to see patient to assess whether patient has any other option * No need to check daily CBC unless patient's febrile. CBC can be checked every couple of days. * Patient only to be nothing by mouth tomorrow night for surgery and Tuesday. Note that as per orthopedic surgery will be planned late Tuesday afternoon. * case discussed with the surgical PA who will let Dr. Martin know about patient's concerns
--- NOTE | 2017-03-20 13:26 | PN- Infect Dx ---
Subjective Subjective: Patient denies any fever or chills. He says the pain that gets worse in right hip when he moves. No fever. Review of Systems Comments: 12 points reviewed as noted, otherwise negative. Objective Last 24 Hrs of Vital Signs/I&O Vital Signs Date Time Temp Pulse Resp B/P B/P Pulse O2 O2 Flow FiO2 Mean Ox Delivery Rate 03/20 0821 73 140/70 03/20 0820 73 140/70 03/20 0820 73 140/70 03/20 0800 95 Nasal 2.0L Cannula 03/20 0639 97.7 73 20 140/70 96 Room Air 03/20 0026 69 96 03/20 0000 Nasal 2.0L Cannula 03/19 2230 72 96 03/19 2210 78 128/76 Intake & Output 03/20 1600 03/20 0800 03/20 0000 Intake Total 240 600 Output Total Balance 240 600 Intake, Oral 240 600 Number 1 Bowel Movements Physical Exam Other Physical Findings: General: Patient is morbidly obese who is awake alert oriented without any distress HEENT: AT/NC, sclera anicteric CVS: S1 plus S2 without any murmur or gallops Chest: Few scattered crepitation without any wheeze. There is no respiratory distress. Abdomen: Soft nontender, bowel sound present, no guarding or rebound MACHINING ASSOCIATE: Awake alert oriented without any focal neuro deficit and follows command appropriately Extremities: Bilateral chronic lower extremity edema is noted ; no clubbing or cyanosis noted Results Last 24 Hours of Lab Results: Laboratory Tests 03/20 0715 Chemistry Sodium (137 - 145 mmol/L) 138 Potassium (3.5 - 5.1 mmol/L) 4.0 Chloride (98 - 107 mmol/L) 103 Carbon Dioxide (22 - 30 mmol/L) 23 Anion Gap (5 - 16) 11 BUN (9 - 20 mg/dL) 16 Creatinine (0.7 - 1.2 mg/dL) 0.9 Estimated GFR (>60 ml/min) > 60 BUN/Creatinine Ratio (7 - 25 %) 17.8 Hematology CBC w Diff NO MAN DIFF REQ WBC (4.8 - 10.8 /CUMM) 11.3 H RBC (4.70 - 6.10 /CUMM) 4.70 Hgb (14.0 - 18.0 G/DL) 14.0 Hct (42 - 52 %) 42.0 MCV (80.0 - 94.0 FL) 89.3 MCH (27.0 - 31.0 PG) 29.7 RDW (11.5 - 14.5 %) 15.1 H Plt Count (130 - 400 /CUMM) 175 MPV (7.4 - 10.4 FL) 9.1 Gran % (42.2 - 75.2 %) 51.2 Lymphocytes % (20.5 - 51.1 %) 40.2 Monocytes % (1.7 - 9.3 %) 4.4 Eosinophils % (0 - 5 %) 3.8 Basophils % (0.0 - 2.0 %) 0.4 Absolute Granulocytes (1.4 - 6.5 /CUMM) 5.8 Absolute Lymphocytes (1.2 - 3.4 /CUMM) 4.5 H Absolute Monocytes (0.10 - 0.60 /CUMM) 0.5 Absolute Eosinophils (0.0 - 0.7 /CUMM) 0.4 Absolute Basophils (0.0 - 0.2 /CUMM) 0 PUBS MCHC (33.0 - 37.0 G/DL) 33.3 Last 24 Hours of Les Results: SPEC #: [id number] CARMEN: 03/15/17 STATUS: COMP RECD: 03/15/[address] CHRISTINE RODR[place]GUEZLITTLEFORK SOURCE: TRUNK/O.R. ENTR: 03/15/[address] [facility] [address]: LAUREN RODRÍGUEZ,MAYRA SPDESC: HIP RIGHT ISIDORO ,JUAN Cornejo ORDERED: TRUNK OR CULT COMMENT: ADDITIONAL INFORMATION: JOINT FLUID Procedure Result > GRAM STAIN Final 03/16/17-0816 WHITE BLOOD CELLS MODERATE OTHER NO ORGANISMS SEEN > TRUNK AREA OR CULTURE Final 03/18/17-1232 SCANT GROWTH OF: ENTEROCOCCUS REPORTED TO: NUR. DENIS AT 0910 03/17/17.LAB.SVCY. 1. ENTEROCOCCUS RX AB ------ -- AMPICILLIN S VANCOMYCIN S Recent Imaging Studies: SERVICE DATE: 03/15/17- EXAM TYPE: RAD - XRY-HIP 1 VIEW, RIGHT EXAMINATION: XR HIP, RIGHT CLINICAL INFORMATION: Right hip aspiration COMPARISON: None TECHNIQUE: Fluoroscopic guidance for right hip aspiration with single view, 3 images submitted. Total fluoroscopic time was [address] Young performed the procedure. FINDINGS: There is a total right hip arthroplasty. There is positioning of aspiration needle both superior and inferior to the femoral neck component. IMPRESSION: Fluoroscopic guidance for right hip aspiration. DICTATED BY: ALMA CARABALLO MD DATE/TIME DICTATED:03/15/172242 MOBILE UI DEVELOPER:AMEE DATE/TIME TRANSCRIBED:03/15/172242 CONFIDENTIAL, DO NOT COPY WITHOUT APPROPRIATE AUTHORIZATION. <Electronically signed in Other Vendor System> SIGNED BY: ALMA CARABALLO MD 03/159 Assessment/Plan Impression: 76-year-old man with DM2, coronary artery disease, status post CABG, paroxysmal atrial fibrillation, not on anticoagulation, status post pacemaker/AICD 12 years prior to admission, COPD, with obstructive sleep apnea, on CPAP, BPH, GI bleed, osteoarthritis, status post right hip replacement 2 years prior to admission, and venous insufficiency admitted with right hip pain on 03/15/17. Stable off antibiotics with temperatures remaining normal but with white blood cell count still mildly elevated, awaiting removal of the right hip prosthesis on March 21 for a presumed infection. Of note recent aspiration under fluoroscopy 4 days ago positive for Enterococcus (S Ampicillin and vancomycin). He was hospitalized in October 2014, 10 months after his hip replacement, with Enterococcal sepsis, treated with a 4 week course of IV Ampicillin, with the source never identified and with no evidence of a hip infection at that time. Suggestion: 1. Await explantation of his right hip prosthesis on March 21; patient will d/w surgery regarding medical treatmnet alone at this time, as he fears that if proceding with surgery he is going to be "unable to walk" and he " might ". F /u surgery recommendations. 2. Continue local wound care to both lower extremities 3. Follow off antibiotics pending above, but can begin Ampicillin 2 g IV every 6 hours postoperatively on March 21 pending OR cultures.
--- NOTE | 2017-03-20 13:35 | PN- Cardiology ---
Subjective Subjective: Patient is resting comfortably. Denies dyspnea, chest pain, or palpitations. He does not think he wants to have the hip explant as he is very worried about his ability to walk following the prosthetic explant. Objective Vital Signs and I&Os Vital Signs Date Time Temp Pulse Resp B/P B/P Pulse O2 O2 Flow FiO2 Mean Ox Delivery Rate 03/20 0821 73 140/70 03/20 0820 73 140/70 03/20 0820 73 140/70 03/20 0800 95 Nasal 2.0L Cannula 03/20 0639 97.7 73 20 140/70 96 Room Air 03/20 0026 69 96 03/20 0000 Nasal 2.0L Cannula 03/19 2230 72 96 03/19 2210 78 128/76 Intake & Output 03/20 1600 03/20 0800 03/20 0000 03/19 1600 03/19 0800 03/19 0000 Intake Total 240 600 600 0 240 Output Total 300 600 900 Balance 240 600 300 -600 -660 Intake, Oral 240 600 600 0 240 Number 1 2 2 Bowel Movements Output, Urine 300 600 900 Physical Exam: General: no apparent distress. Alert. On nasal cannula Eyes: No obvious scleral icterus. HEENT: No jugular venous distention or abnormal jugular venous pulsations. Cardiovascular: Normal intensity S1/S2. Regular, pacemaker noted Respiratory: No rales or rhonchi Abdomen: no guarding or rebound tenderness. Musculoskeletal: Bilateral lower extremity leg wrappings Skin: Warm Neurologic: No gross focal deficits noted. Current Medications: Current Medications Sig/Buck Start time Last Medication Dose Route Stop Time Status Admin Acetaminophen 650 MG Q6P PRN 03/12 2100 AC PO Acetaminophen/ 1 TAB Q6P PRN 03/12 2100 DC 03/15 Hydrocodone Bitart PO 1146 Aspirin Buffered 81 MG DAILY 03/11 1338 AC 03/20 PO 0819 Atorvastatin Calcium 10 MG 1700 03/11 1700 AC 03/19 PO 1721 Budesonide/ 2 PUF BID 03/11 1339 AC 03/20 Formoterol Fumarate INH 0834 Carvedilol 6.25 MG BID 03/15 1000 AC 03/20 PO 0820 Docusate Sodium 100 MG DAILY 03/13 1000 AC 03/18 PO 0928 Dofetilide 500 MCG BID 03/18 2200 AC 03/20 PO 0821 Fish Oil 1,050 MG DAILY 03/11 1340 AC 03/20 PO 0821 Furosemide 20 MG DAILY 03/14 1511 AC 03/20 PO 0820 Heparin Sodium 5,000 UNIT Q8 03/11 1503 DC 03/19 (Porcine) RI 03/19 2300 2210 Insulin Aspart 0 TIDAC 03/16 0800 AC 03/20 SC 0753 Lactobacillus 1 CAP BID 03/16 1014 AC 03/20 Acidophilus PO 0820 Lisinopril 5 MG DAILY 03/13 1047 AC 03/20 PO 0820 Magnesium Chloride 64 MG DAILY 03/12 1000 AC 03/18 PO 0927 Morphine Sulfate 2 MG Q4P PRN 03/12 2100 DC IV Polyethylene Glycol 17 GM DAILY PRN 03/13 0330 AC PO Senna 187 MG AT BEDTIME 03/13 2200 AC 03/17 PO 2137 Tamsulosin HCl 0.4 MG DAILY 03/11 1341 AC 03/20 PO 0821 Vitamin E 400 IU DAILY 03/11 1341 AC 03/20 PO 0820 Zinc Oxide 1 GENE BID 03/12 2200 03/20 [facility] 0837 Results Last 48 Hrs of Labs/Mics: Laboratory Tests 03/20/17 0715: Anion Gap 11, Estimated GFR > 60, BUN/Creatinine Ratio 17.8, CBC w Diff NO MAN DIFF REQ, RBC 4.70, MCV 89.3, MCH 29.7, RDW 15.1 H, MPV 9.1, Gran % 51.2, Lymphocytes % 40.2, Monocytes % 4.4, Eosinophils % 3.8, Basophils % 0.4, Absolute Granulocytes 5.8, Absolute Lymphocytes 4.5 H, Absolute Monocytes 0.5, Absolute Eosinophils 0.4, Absolute Basophils 0, PUBS MCHC 33.3 03/19/17 0640: CBC w Diff NO MAN DIFF REQ, RBC 4.81, MCV 89.0, MCH 29.8, RDW 14.5, MPV 9.0, Gran % 50.8, Lymphocytes % 39.1, Monocytes % 6.2, Eosinophils % 3.5, Basophils % 0.4, Absolute Granulocytes 6.5, Absolute Lymphocytes 5.0 H, Absolute Monocytes 0.8 H, Absolute Eosinophils 0.4, Absolute Basophils 0, PUBS MCHC 33.5 Recent Imaging Studies: Telemetry tracings were personally reviewed and shows sinus rhythm with intermittent pacing Assessment/Plan Assessment/Plan 1. Possible hip prosthesis infection 2. CAD/CABG 3. ICM with AICD 4. LIAM 5. Venous insufficiency HD stable. Remains in SR with intermittent pacing. Continue oral Lasix. He is not sure if he wants to proceed with the hip prosthesis explant. ID is following. Lorenzo Estrella MD FAC Continue telemetry? Yes
[2017-03-20 14:59] VITALS: BP 116/60
[2017-03-20 22:17] VITALS: BP 118/90
[2017-03-21 06:37] VITALS: BP 120/86
--- NOTE | 2017-03-21 09:01 | PN- Housestaff ---
TYLER LOPEZ 03/21/17 0901: Subjective Follow-up For: Cellulitus of lower extremities R hip pain s/p aspiration pos for Enterococcus Subjective: Patient feels reluctant to have hip exploration with Dr. Young and would like a second opinion. No acute events overnight. Review of Systems Constitutional: Reports: see HPI. Objective Last 24 Hrs of Vital Signs/I&O Vital Signs Date Time Temp Pulse Resp B/P B/P Pulse O2 O2 Flow FiO2 Mean Ox Delivery Rate 03/21 1027 70 148/78 03/21 1026 70 148/78 03/21 1026 70 148/78 03/21 0800 Nasal 2.0L Cannula 03/21 0637 97.8 69 20 120/86 93 Nasal 2.0L Cannula 03/21 0040 76 96 03/20 2222 70 96 03/20 2217 97.4 71 20 118/90 97 Nasal 2.0L Cannula 03/20 2211 97 Nasal 2.0L Cannula 03/20 2204 71 118/90 03/20 1600 Nasal 2.0L Cannula 03/20 1459 99.0 69 20 116/60 96 Nasal 2.0L Cannula Intake & Output 03/21 1600 03/21 0800 03/21 0000 Intake Total 0 240 Output Total 250 Balance -250 240 Intake, Oral 0 240 Output, Urine 250 Physical Exam General Appearance: Alert, Oriented X3, Cooperative, No Acute Distress HEENT: Atraumatic, PERRLA Neck: Supple, No JVD, No thryomegaly Cardiovascular: Normal S1, Normal S2 Lungs: Clear to Auscultation, Normal Air Movement Abdomen: Normal Bowel Sounds, Soft, No Tenderness Extremities: Bilateral lower ext dressing dry and intact. Other Physical Findings: As per wound care, Buttocks noted with areas of Stage 1 pressure ulcer nonblanchable erythema 4x5 cm POA. Current Medications: Current Medications Sig/Buck Start time Last Medication Dose Route Stop Time Status Admin Acetaminophen 650 MG Q6P PRN 03/12 2100 AC PO Aspirin Buffered 81 MG DAILY 03/11 1338 AC 03/21 PO 1026 Atorvastatin Calcium 10 MG 1700 03/11 1700 AC 03/20 PO 1717 Budesonide/ 2 PUF BID 03/11 1339 AC 03/21 Formoterol Fumarate INH 1030 Carvedilol 6.25 MG BID 03/15 1000 AC 03/21 PO 1026 Dextrose/Water 1,000 ML ONCE ONE 03/21 1200 AC 03/21 IV 03/22 0119 1224 Docusate Sodium 100 MG DAILY 03/13 1000 AC 03/18 PO 0928 Dofetilide 500 MCG BID 03/18 2200 AC 03/21 PO 1027 Fish Oil 1,050 MG DAILY 03/11 1340 AC 03/21 PO 1028 Furosemide 20 MG DAILY 03/14 1511 AC 03/21 PO 1027 Insulin Aspart 0 TIDAC 03/16 0800 DC 03/20 SC 1717 Insulin Human Regular 0 Q6 03/21 0600 AC 03/21 SC 1224 Lactobacillus 1 CAP BID 03/16 1014 AC 03/21 Acidophilus PO 1027 Lisinopril 5 MG DAILY 03/13 1047 AC 03/21 PO 1027 Magnesium Chloride 64 MG DAILY 03/12 1000 AC 03/21 PO 1027 Polyethylene Glycol 17 GM DAILY PRN 03/13 0330 AC PO Senna 187 MG AT BEDTIME 03/13 2200 AC 03/17 PO 2137 Tamsulosin HCl 0.4 MG DAILY 03/11 1341 AC 03/21 PO 1026 Vitamin E 400 IU DAILY 03/11 1341 AC 03/21 PO 1028 Zinc Oxide 1 GENE BID 03/12 2200 AC 03/21 TOP 1023 Last 24 Hrs of Lab/Les Results Last 24 Hrs of Labs/Mics: Laboratory Tests 03/21/17 0910: WBC Cancelled, RBC Cancelled, Hgb Cancelled, Hct Cancelled, MCV Cancelled, MCH Cancelled, RDW Cancelled, Plt Count Cancelled, MPV Cancelled, PUBS MCHC Cancelled Assessment/Plan Assessment: 76-year-old male with a past medical history of COPD, hyperlipidemia, diabetes mellitus, CAD s/p CABG in 2003 and AICD, BPH, LIAM, occult GI bleed, who presents to us with c/o weakness, and leg swelling. 1. Cellulitis of bilateral lower extremity swelling and wounds likely due to venous stasis * Dopplers negative for DVT * Wound care following the patient * Blood cultures negative 2. Diabetes mellitus, Hgb alc 8.3 * NovoLog sliding scale * Continue Accu-Cheks 3. Coronary artery disease status post CABG as well as AICD placement * ACS ruled out with negative troponin and EKG * Continue aspirin, carvedilol, atorvastatin, dofetilide, lisinopril, lasix * CXR negative for any acute pathology 4. Right hip pain, S/P prothesis 2 yrs ago Right hip XR showed loosening of hardware. Patient states had a previous Enterococcus pos hospitalization 10 months after hip replacement and received IV ampicillin. Records were [facility] from [facility] 03/17/17. * Right hip aspiration did not reveal purulent d/c * Right hip edith blood aspiration, pos for Enteroccoccus and moderate wbcs * ID consulted: Stable off antibiotics with temperatures remaining normal but with white blood cell count still mildly elevated, awaiting removal of the right hip prosthesis on March 21 for a presumed infection, with the recent aspiration under fluoroscopy 4 days ago positive for Enterococcus. * Continue to follow off antibiotics but began ampicillin 2 g IV every 6 hours postoperatively pending OR cultures * Blood cultures/sensitivity x 2 - negative (prelim report) * 2nd opinion with Dr. Hearn as per patient's request 5. BPH * Continue on tamsulosin 0.4 mg daily 6. COPD * Continue on Symbicort * TR nebs 7. LIAM on CPAP * Continue CPAP 8. Diarrhea - resolved. -DVT prophylaxis Heparin 5000 international units 3 times a day subcutaneous - Diet Nothing by mouth -Code Status Full code Problem List: 1. BPH (benign prostatic hyperplasia) 2. Cellulitis 3. Septic arthritis 4. LIAM (obstructive sleep apnea) 5. CAD (coronary artery disease) 6. 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 Patient however is concerned with prolonged bedrest after surgery. Cellulitis lower extremity Diabetes mellitus CAD status post CABG Status post AICD Plan Continue to follow of antibiotics. Patient clinically stable this point. Plans noted for explantation of the prosthesis on Tuesday. I called OR today to leave message for orhtopedics. (patient concerns)
--- NOTE | 2017-03-21 10:37 | NUR ---
Physical therapy: Per RN, patient is refusing to work with PT at this time. Patient wants to speak with orthopedic surgeon prior to PT today. Will follow up later as appropriate. Patient is scheduled to go to OR later today for hip spacer placment. Thank you.
--- NOTE | 2017-03-21 13:20 | PN- Infect Dx ---
Subjective Subjective: Patient is resting comfortably. No fever. denies R hip pain. He does not think he wants to have the R prosthesis hip removed as he is very worried about his ability to walk with a spacer afterwards. Review of Systems Comments: 12 points reviewed as noted, otherwise negative. Objective Last 24 Hrs of Vital Signs/I&O Vital Signs Date Time Temp Pulse Resp B/P B/P Pulse O2 O2 Flow FiO2 Mean Ox Delivery Rate 03/21 1027 70 148/78 03/21 1026 70 148/78 03/21 1026 70 148/78 03/21 0800 Nasal 2.0L Cannula 03/21 0637 97.8 69 20 120/86 93 Nasal 2.0L Cannula 03/21 0040 76 96 03/20 2222 70 96 03/20 2217 97.4 71 20 118/90 97 Nasal 2.0L Cannula 03/20 2211 97 Nasal 2.0L Cannula 03/20 2204 71 118/90 03/20 1600 Nasal 2.0L Cannula 03/20 1459 99.0 69 20 116/60 96 Nasal 2.0L Cannula Intake & Output 03/21 1600 03/21 0800 03/21 0000 Intake Total 0 240 Output Total 250 Balance -250 240 Intake, Oral 0 240 Output, Urine 250 Physical Exam Other Physical Findings: General: Patient has elevated BMI; no acute distress HEENT: AT/NC, sclera anicteric CVS: S1, S2 present; no gallops Chest: BS present. There is no respiratory distress. 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 ENTR: 03/15/[address]: MAYRA AGUILAR MD [facility]: HIP RIGHT ISIDORO JUAN RODRÍGUEZ ORDERED: TRUNK OR CULT COMMENT: ADDITIONAL INFORMATION: JOINT FLUID Procedure Result > GRAM STAIN Final 03/16/17-815 WHITE BLOOD CELLS MODERATE OTHER NO ORGANISMS SEEN > TRUNK AREA OR CULTURE Final 03/18/17-1232 SCANT GROWTH OF: ENTEROCOCCUS REPORTED TO: NUR. DENIS AT 0910 03/17/17.LAB.SVCY. 1. ENTEROCOCCUS RX AB ------ -- AMPICILLIN S VANCOMYCIN S Recent Imaging Studies: SERVICE DATE: 03/12/17 EXAM TYPE: RAD - XRY-PORTABLE CHEST XRAY EXAMINATION: XR PORTABLE CHEST CLINICAL INFORMATION: Leg swelling. Evaluate for pulmonary venous congestion. COMPARISON: Previous chest x-rays most recent from yesterday TECHNIQUE: Portable frontal view of the chest was obtained. FINDINGS: The cardiac and mediastinal contours are stable. There is a left subclavian dual chamber pacemaker unchanged in position. There are median sternotomy wires. Hilar and mediastinal contours are unremarkable. The lungs are clear. There is no pleural effusion. IMPRESSION: No evidence for acute disease in the chest. DICTATED BY: ROSAMARIA YANES MD DATE/TIME DICTATED:03/12/17804 PROCESS CONSULTANT:AMEE DATE/TIME TRANSCRIBED:03/12/17804 CONFIDENTIAL, DO NOT COPY WITHOUT APPROPRIATE AUTHORIZATION. <Electronically signed in Other Vendor System> SIGNED BY: ROSAMARIA YANES MD 0809 Assessment/Plan Impression: 76-year-old man with DM2, coronary artery disease, status post CABG, paroxysmal atrial fibrillation, not on anticoagulation, status post pacemaker/AICD 12 years prior to admission, COPD, with obstructive sleep apnea, on CPAP, BPH, GI bleed, osteoarthritis, status post right hip replacement 2 years prior to admission, and venous insufficiency admitted with right hip pain on 03/15/17. Stable off antibiotics with temperatures remaining normal but with white blood cell count still mildly elevated, planned removal of the right hip prosthesis for a presumed infection if patient agrees to the procedure. Of note recent aspiration under fluoroscopy positive for Enterococcus (S Ampicillin and vancomycin). He was hospitalized in October 2014, 10 months after his hip replacement, with Enterococcal sepsis, treated with a 4 week course of IV Ampicillin, with the source never identified and with no evidence of a hip infection at that time. Suggestion: 1. Await explantation of his right hip prosthesis; patient will d/w surgery regarding medical treatment alone at this time. If feasible consider repeat R hip aspiration off antibiotics under fluoroscopic guidance; if the second cx positive enterococcus would start iv abx. Obtain ESR/CRP in am; if elevated consider JORGE eval valves/pacerwires. 2. Continue local wound care to both lower extremities 3. Pending his decision regarding surgery followed off antibiotics.
[2017-03-21 14:36] VITALS: BP 112/62
--- NOTE | 2017-03-21 15:52 | PN- Orthopedic ---
Surgical Brief Attending Note Brief Attending Note: After multiple conversation about the procedure and what the future of the hip is, the patient declined surgery in the holding area. He seemed very concerned about needing to be in rehab for six weeks of IV abx per medicare rules as well as the overall situation that he finds himself in. I spent significant time with him emphasizing that prosthetic removal and spacer implantation followed by six weeks of IV abx is the standard of care for his problem. I also emphasized that his hip would not get better with antibiotics alone and that his hip could become a significant medical problem in the future. Although unlikely, I did discuss the possibility of sepsis. At this point, I have nothing further orthopedically to offer him and D/C home is his choice. If he changes his mind, I'm not available for the remainder of the week and would recommend D/C to rehab until I have the surgical availability to perform this complex and demanding procedure.
[2017-03-21 22:11] VITALS: BP 122/60
--- NOTE | 2017-03-22 07:20 | PN- Housestaff ---
TYLER LOPEZ 03/22/17 0719: Subjective Follow-up For: Cellulitus of lower extremities R hip pain s/p aspiration pos for Enterococcus Subjective: Patient would like to consider options for hip surgery. He is awaiting a second consult. No acute events overnight. Review of Systems Constitutional: Reports: see HPI. Objective Last 24 Hrs of Vital Signs/I&O Vital Signs Date Time Temp Pulse Resp B/P B/P Pulse O2 O2 Flow FiO2 Mean Ox Delivery Rate 03/22 0729 98.5 70 20 140/70 93 Room Air 03/22 0043 70 95 03/22 0000 Nasal 2.0L Cannula 03/21 2218 80 97 03/21 2211 99.1 69 20 122/60 97 Nasal 2.0L Cannula 03/21 2133 70 130/78 03/21 1436 98.8 68 20 112/62 95 Nasal 2.0L Cannula 03/21 1027 70 148/78 03/21 1026 70 148/78 03/21 1026 70 148/78 03/21 0800 Nasal 2.0L Cannula Intake & Output 03/22 0800 03/22 0000 03/21 1600 Intake Total 50 120 187.5 Output Total 180 650 300 Balance -130 -530 -112.5 Intake, IV 187.5 Intake, Oral 50 120 Output, Urine 180 650 300 Physical Exam General Appearance: Alert, Oriented X3, Cooperative, No Acute Distress HEENT: Atraumatic, PERRLA Cardiovascular: Normal S1, Normal S2, No Murmurs Lungs: Clear to Auscultation, Normal Air Movement Abdomen: Normal Bowel Sounds, Soft, No Tenderness Extremities: Bilateral dressing dry and intact Current Medications: Current Medications Sig/Buck Start time Last Medication Dose Route Stop Time Status Admin Acetaminophen 650 MG Q6P PRN 03/12 2100 AC PO Ampicillin 2,000 MG Q6 03/21 1800 CAN Sodium Chloride 100 ML IV Aspirin Buffered 81 MG DAILY 03/11 1338 AC 03/21 PO 1026 Atorvastatin Calcium 10 MG 1700 03/11 1700 AC 03/21 PO 1755 Budesonide/ 2 PUF BID 03/11 1339 AC 03/21 Formoterol Fumarate INH 2133 Carvedilol 6.25 MG BID 03/15 1000 AC 03/21 PO 2133 Dextrose/Water 1,000 ML ONCE ONE 03/21 1200 DC 03/21 IV 03/22 0119 1224 Docusate Sodium 100 MG DAILY 03/13 1000 AC 03/18 PO 0928 Dofetilide 500 MCG BID 03/18 2200 AC 03/21 PO 2132 Fish Oil 1,050 MG DAILY 03/11 1340 AC 03/21 PO 1028 Furosemide 20 MG DAILY 03/14 1511 AC 03/21 PO 1027 Insulin Aspart 0 TIDAC/HS 03/21 2100 AC 03/21 SC 2133 Insulin Human Regular 0 Q6 03/21 0600 DC 03/21 SC 1224 Lactobacillus 1 CAP BID 03/16 1014 AC 03/21 Acidophilus PO 2132 Lisinopril 5 MG DAILY 03/13 1047 AC 03/21 PO 1027 Magnesium Chloride 64 MG DAILY 03/12 1000 AC 03/21 PO 1027 Polyethylene Glycol 17 GM DAILY PRN 03/13 0330 AC PO Senna 187 MG AT BEDTIME 03/13 2200 AC 03/17 PO 2137 Tamsulosin HCl 0.4 MG DAILY 03/11 1341 AC 03/21 PO 1026 Vitamin E 400 IU DAILY 03/11 1341 AC 03/21 PO 1028 Zinc Oxide 1 GENE BID 03/12 2200 AC 03/21 TOP 2133 Last 24 Hrs of Lab/Les Results Last 24 Hrs of Labs/Mics: Laboratory Tests 03/22/17 0620: C-React Prot High Sens Pending, CBC w Diff Pending, WBC Pending, RBC Pending, Hgb Pending, Hct Pending, MCV Pending, MCH Pending, RDW Pending, Plt Count Pending, MPV Pending, Gran % Pending, Lymphocytes % Pending, Monocytes % Pending , Eosinophils % Pending, Basophils % Pending, Absolute Granulocytes Pending, Absolute Lymphocytes Pending, Absolute Monocytes Pending, Absolute Eosinophils Pending, Absolute Basophils Pending, PUBS MCHC Pending, ESR Westergren Pending 03/21/17 0910: WBC Cancelled, RBC Cancelled, Hgb Cancelled, Hct Cancelled, MCV Cancelled, MCH Cancelled, RDW Cancelled, Plt Count Cancelled, MPV Cancelled, PUBS MCHC Cancelled Assessment/Plan Assessment: 76-year-old male with a past medical history of COPD, hyperlipidemia, diabetes mellitus, CAD s/p CABG in 2004 and AICD, BPH, LIAM, occult GI bleed, who presents to us with c/o weakness, and leg swelling. 1. Cellulitis of bilateral lower extremity swelling and wounds likely due to venous stasis * Dopplers negative for DVT * Wound care following the patient * Blood cultures negative 2. Diabetes mellitus, Hgb alc 8.3 * NovoLog sliding scale * Continue Accu-Cheks 3. Coronary artery disease status post CABG as well as AICD placement * ACS ruled out with negative troponin and EKG * Continue aspirin, carvedilol, atorvastatin, dofetilide, lisinopril, lasix * CXR negative for any acute pathology 4. Right hip pain, S/P prothesis 2 yrs ago Right hip XR showed loosening of hardware. Patient states had a previous Enterococcus pos hospitalization 10 months after hip replacement and received IV ampicillin. Records were requested from [facility] 03/17/17. * Right hip aspiration did not reveal purulent d/c * Right hip edith blood aspiration, pos for Enteroccoccus and moderate wbcs * ID consulted: Stable off antibiotics with temperatures remaining normal but with white blood cell count still mildly elevated, awaiting removal of the right hip prosthesis on March 21 for a presumed infection, with the recent aspiration under fluoroscopy 4 days ago positive for Enterococcus. * Continue to follow off antibiotics but began ampicillin 2 g IV every 6 hours postoperatively pending OR cultures * Blood cultures/sensitivity x 2 - negative (prelim report) * 2nd opinion with ortho as per patient's request 5. BPH * Continue on tamsulosin 0.4 mg daily 6. COPD * Continue on Symbicort * TRC nebs 7. LIAM on CPAP * Continue CPAP 8. Diarrhea - resolved. -DVT prophylaxis Heparin 5000 international units 3 times a day subcutaneous -CC3 Diet -Code Status Full code Problem List: 1. Septic arthritis 2. Cellulitis 3. 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 Patient however is concerned with prolonged bedrest after surgery. Cellulitis lower extremity resolved Diabetes mellitus CAD status post CABG Status post AICD Plan ID and orthopedicas were consulted during this hospital admission. ID followoing, Continue to follow of antibiotics. Patient clinically stable this point. Patient refused orthopedic intervention. Patient explained risks/benefits of procedure including sepsis and . Patient now wants second opinion for ortho preocdure. Patient explained that it may not be futile however is adamant. try to reach Dr Portillo orthopedics. c/w home meds for now and case management f/u latrell d/c plans.
[2017-03-22 07:29] VITALS: BP 140/70
[2017-03-22 07:44] LABS: ABSOLUTE BASOPHIL COUNT 0.1 /CUMM (0.0-0.2); ABSOLUTE EOSINOPHIL COUNT 0.4 /CUMM (0.0-0.7); ABSOLUTE GRANULOCYTE CT 7.8 /CUMM (1.4-6.5); ABSOLUTE LYMPH COUNT 4.4 /CUMM (1.2-3.4); ABSOLUTE MONOCYTE COUNT 0.9 /CUMM (0.10-0.60); BASOPHIL % 0.5 % (0.0-2.0); EOSINOPHIL % 2.8 % (0-5); GRANULOCYTE % 57.7 % (42.2-75.2); HEMATOCRIT 40.8 % (42-52); MEAN CORPUSCULAR HGB 29.8 PG (27.0-31.0); MEAN CORPUSCULAR HGB CONC 33.3 G/DL (33.0-37.0); MEAN CORPUSCULAR VOLUME 89.5 FL (80.0-94.0); MEAN PLATELET VOLUME 8.9 FL (7.4-10.4); PLATELET COUNT 175 /CUMM (130-400); RBC DISTRIBUTION WIDTH 14.9 % (11.5-14.5); RED BLOOD CELL CT 4.56 /CUMM (4.70-6.10); WHITE BLOOD CELL COUNT 13.4 /CUMM (4.8-10.8)
--- NOTE | 2017-03-22 10:52 | PN- Infect Dx ---
Subjective Subjective: No fever; reports pain R hip when lifting R leg. Previous events noted. Review of Systems Comments: 12 points reviewed as noted, otherwise negative. Objective Last 24 Hrs of Vital Signs/I&O Vital Signs Date Time Temp Pulse Resp B/P B/P Pulse O2 O2 Flow FiO2 Mean Ox Delivery Rate 03/22 0938 70 140/70 03/22 0938 70 140/70 03/22 0938 70 140/70 03/22 0800 93 Nasal 2.0L Cannula 03/22 0729 98.5 70 20 140/70 93 Room Air 03/22 0043 70 95 03/22 0000 Nasal 2.0L Cannula 03/21 2218 80 97 03/21 2211 99.1 69 20 122/60 97 Nasal 2.0L Cannula 03/21 2133 70 130/78 03/21 1436 98.8 68 20 112/62 95 Nasal 2.0L Cannula Intake & Output 03/22 1600 03/22 0800 03/22 0000 Intake Total 50 120 Output Total 100 180 650 Balance -100 -130 -530 Intake, Oral 50 120 Output, Urine 100 180 650 Results Last 24 Hours of Lab Results: Laboratory Tests 03/22 06 Chemistry C-Reactive Prot, Quant (<1.0 mg/dL) 2.9 H C-React Prot High Sens (1.0 - 3.0 mg/L) > 15.0 H Hematology CBC w Diff NO MAN DIFF REQ WBC (4.8 - 10.8 /CUMM) 13.4 H RBC (4.70 - 6.10 /CUMM) 4.56 L Hgb (14.0 - 18.0 G/DL) 13.6 L Hct (42 - 52 %) 40.8 L MCV (80.0 - 94.0 FL) 89.5 MCH (27.0 - 31.0 PG) 29.8 RDW (11.5 - 14.5 %) 14.9 H Plt Count (130 - 400 /CUMM) 175 MPV (7.4 - 10.4 FL) 8.9 Gran % (42.2 - 75.2 %) 57.7 Lymphocytes % (20.5 - 51.1 %) 32.6 Monocytes % (1.7 - 9.3 %) 6.4 Eosinophils % (0 - 5 %) 2.8 Basophils % (0.0 - 2.0 %) 0.5 Absolute Granulocytes (1.4 - 6.5 /CUMM) 7.8 H Absolute Lymphocytes (1.2 - 3.4 /CUMM) 4.4 H Absolute Monocytes (0.10 - 0.60 /CUMM) 0.9 H Absolute Eosinophils (0.0 - 0.7 /CUMM) 0.4 Absolute Basophils (0.0 - 0.2 /CUMM) 0.1 PUBS MCHC (33.0 - 37.0 G/DL) 33.3 ESR Westergren (0 - 10 MM) Pending Last 24 Hours of Les Results: n/a Assessment/Plan Impression: 76-year-old man with DM2, coronary artery disease, status post CABG, paroxysmal atrial fibrillation, not on anticoagulation, status post pacemaker/AICD 12 years prior to admission, COPD, with obstructive sleep apnea, on CPAP, BPH, GI bleed, osteoarthritis, status post right hip replacement 2 years prior to admission, and venous insufficiency admitted with right hip pain on 03/15/17. Off antibiotics with temperatures remaining normal while white blood cell count elevated, planned removal of the right hip prosthesis aborted as patient declined the procedure. Dr. Young spent significant time with him emphasizing that "prosthetic removal and spacer implantation followed by six weeks of IV abx as the standard of care for his problem". Of note recent aspiration under fluoroscopy positive for Enterococcus (S Ampicillin and vancomycin). He was hospitalized in October 2014, 10 months after his hip replacement, with Enterococcal sepsis, treated with a 4 week course of IV Ampicillin, with the source never identified and with no evidence of a hip infection at that time. Suggestion: 1. Patient awaits second ortho opinion; observed off abx. D/w patient that the R hip could become a significant medical problem if untreated. Call if fever. ESR from today still pnd. 2. Continue local wound care to both lower extremities 3. Trend CBC/BMP.
--- NOTE | 2017-03-22 12:16 | PN- Cardiology ---
Subjective Subjective: Mr. Walls was seen on the evening of 03/21/2017 and was very concerned about the discussions he had been having with orthopedic surgery in regard to his functional capacity following the plan hip surgery. He denies any chest discomfort, palpitations, shortness of breath, etc. Objective Vital Signs and I&Os Vital Signs Date Time Temp Pulse Resp B/P B/P Pulse O2 O2 Flow FiO2 Mean Ox Delivery Rate 03/22 0938 70 140/70 03/22 0938 70 140/70 03/22 0938 70 140/70 03/22 0800 93 Nasal 2.0L Cannula 03/22 0729 98.5 70 20 140/70 93 Room Air 03/22 0043 70 95 03/22 0000 Nasal 2.0L Cannula 03/21 2218 80 97 03/21 2211 99.1 69 20 122/60 97 Nasal 2.0L Cannula 03/21 2133 70 130/78 03/21 1436 98.8 68 20 112/62 95 Nasal 2.0L Cannula Intake & Output 03/22 1600 03/22 0800 03/22 0000 03/21 1600 03/21 0800 03/21 0000 Intake Total 50 120 187.5 0 240 Output Total 100 180 650 300 250 Balance -100 -130 -530 -112.5 -250 240 Intake, IV 187.5 Intake, Oral 50 120 0 240 Output, Urine 100 180 650 300 250 Physical Exam: Well-developed, morbidly obese elderly male in no acute distress. Vital signs: See above. Lungs: Clear to auscultation. Heart: S1, S2 with no murmur, gallop, or rub appreciated. Abdomen: Soft, nontender, positive bowel sounds. Extremities: Bilateral lower extremity with bilateral bandages. Current Medications: Current Medications Sig/Buck Start time Last Medication Dose Route Stop Time Status Admin Acetaminophen 650 MG Q6P PRN 03/12 2100 AC PO Ampicillin 2,000 MG Q6 03/21 1800 CAN Sodium Chloride 100 ML IV Aspirin Buffered 81 MG DAILY 03/11 1338 AC 03/22 PO 0938 Atorvastatin Calcium 10 MG 1700 03/11 1700 AC 03/21 PO 1755 Budesonide/ 2 PUF BID 03/11 1339 AC 03/22 Formoterol Fumarate INH 0939 Carvedilol 6.25 MG BID 03/15 1000 AC 03/22 PO 0938 Dextrose/Water 1,000 ML ONCE ONE 03/21 1200 DC 03/21 IV 03/22 0119 1224 Docusate Sodium 100 MG DAILY 03/13 1000 AC 03/18 PO 0928 Dofetilide 500 MCG BID 03/18 2200 AC 03/22 PO 0939 Fish Oil 1,050 MG DAILY 03/11 1340 AC 03/22 PO 0938 Furosemide 20 MG DAILY 03/14 1511 AC 03/22 PO 0938 Insulin Aspart 0 TIDAC/HS 03/21 2100 AC 03/22 SC 0839 Insulin Human Regular 0 Q6 03/21 0600 DC 03/21 CO 1224 Lactobacillus 1 CAP BID 03/16 1014 AC 03/22 Acidophilus PO 0938 Lisinopril 5 MG DAILY 03/13 1047 AC 03/22 PO 0938 Magnesium Chloride 64 MG DAILY 03/12 1000 AC 03/22 PO 0939 Polyethylene Glycol 17 GM DAILY PRN 03/13 0330 AC PO Senna 187 MG AT BEDTIME 03/13 2200 AC 03/17 PO 2137 Tamsulosin HCl 0.4 MG DAILY 03/11 1341 AC 03/22 PO 0938 Vitamin E 400 IU DAILY 03/11 1341 AC 03/22 PO 0938 Zinc Oxide 1 GENE BID 03/12 2200 AC 03/22 TOP 0949 Assessment/Plan Assessment/Plan 76-y-o-w-m w/ hx of morbid obesity, LIAM on CPAP, COPD, HTN, HLD, DM, CAD/ICM (s/ p IMI in 1998, CABG 4 w/ WHITE to LAD and individual SVGs to Dx, OM, PDA & MAZE) , and recurrent PAF who presented in an unkempt state via ambulance after being discovered on the floor of his home several hours after he had fallen w/ findings of a UTI, bilateral lower extremity cellulitis, edema, etc. Right hip aspiration culture (03/15/2017) growing Enterococcus consistent with infected prosthesis. Remains afebrile off antimicrobial therapy with elevated WBC count that has improved. The plan was for explantation of his right hip prosthesis by Dr. Young on , however, he is now seeking a second opinion being concerned about his functional capacity following surgery. His last pharmacologic stress test was performed on 11/25/2014 and was negative for ischemia. Reasonable to repeat a pharmacologic stress test prior to planned orthopedic surgery. Recommendations: * Continue on telemetry w/ strict inputs/outputs and daily weights. * BiV pacemaker/defibrillator functioning properly without the need for reprogramming. * Continue diuretic therapy w/ improved renal function, in the hope of improving edema. * Continue beta guillermo, antiarrhythmic, antiplatelets, statin, CLARISA inhibitor, etc. * Continue to follow-up on infectious disease and orthopedic surgery recommendations. * DVT prophylaxis.
--- NOTE | 2017-03-22 12:24 | PN- Cardiology ---
Subjective Subjective: No new complaints. And is awaiting a second opinion regarding hip surgery from Ian Healy M.D. Objective Vital Signs and I&Os Vital Signs Date Time Temp Pulse Resp B/P B/P Pulse O2 O2 Flow FiO2 Mean Ox Delivery Rate 03/22 0938 70 140/70 03/22 0938 70 140/70 03/22 0938 70 140/70 03/22 0800 93 Nasal 2.0L Cannula 03/22 0729 98.5 70 20 140/70 93 Room Air 03/22 0043 70 95 03/22 0000 Nasal 2.0L Cannula 03/21 2218 80 97 03/21 2211 99.1 69 20 122/60 97 Nasal 2.0L Cannula 03/21 2133 70 130/78 03/21 1436 98.8 68 20 112/62 95 Nasal 2.0L Cannula Intake & Output 03/22 1600 03/22 0800 03/22 0000 03/21 1600 03/21 0800 03/21 0000 Intake Total 50 120 187.5 0 240 Output Total 100 180 650 300 250 Balance -100 -130 -530 -112.5 -250 240 Intake, IV 187.5 Intake, Oral 50 120 0 240 Output, Urine 100 180 650 300 250 Physical Exam: Well-developed, morbidly obese elderly male in no acute distress. Vital signs: See above. Lungs: Clear to auscultation. Heart: S1, S2 with no murmur, gallop, rub appreciated. Abdomen: Soft, nontender, positive bowel sounds. Extremities: Lower extremity edema. Assessment/Plan Assessment/Plan 76-y-o-w-m w/ hx of morbid obesity, LIAM on CPAP, COPD, HTN, HLD, DM, CAD/ICM (s/ p IMI in 1998, CABG 4 w/ WHITE to LAD and individual SVGs to Dx, OM, PDA & MAZE) , and recurrent PAF who presented in an unkempt state via ambulance after being discovered on the floor of his home several hours after he had fallen w/ findings of a UTI, bilateral lower extremity cellulitis, edema, etc. Right hip aspiration culture (03/15/2017) growing Enterococcus consistent with infected prosthesis. Remains afebrile off antimicrobial therapy with elevated WBC count. The plan was for explantation of his right hip prosthesis by Dr. Young on , however, he is now seeking a second opinion from Dr. Healy being concerned about his functional capacity following surgery. His last pharmacologic stress test was performed on 11/25/2014 and was negative for ischemia. Reasonable to repeat a pharmacologic stress test prior to planned orthopedic surgery. Recommendations: * Continue on telemetry w/ strict inputs/outputs and daily weights. * BiV pacemaker/defibrillator functioning properly without the need for reprogramming. * Continue diuretic therapy w/ improved renal function, in the hope of improving edema. * Continue beta guillermo, antiarrhythmic, antiplatelets, statin, CLARISA inhibitor, etc. * Continue to follow-up on infectious disease and orthopedic surgery recommendations. * DVT prophylaxis.
[2017-03-22 14:37] VITALS: BP 110/58
--- NOTE | 2017-03-22 14:48 | NUR ---
PHYSICAL THERAPY: Pt REFUSING PT UNTIL HIS HIP ISSUE IS WORKED OUT. CURRENTLY SEEKING A SECOND OPINION ABOUT WHAT CAN DONE FOR HIP. WILL CONT TO FOLLOW APPROP.
[2017-03-22 14:56] VITALS: BP 152/84
[2017-03-22 22:35] VITALS: BP 146/70
[2017-03-23 06:58] VITALS: BP 140/60
--- NOTE | 2017-03-23 07:20 | PN- Housestaff ---
See Addendum TYLER LOPEZ 03/23/17 0719: Subjective Follow-up For: Cellulitus of lower extremities R hip pain s/p aspiration pos for Enterococcus Review of Systems Constitutional: Reports: see HPI. Objective Last 24 Hrs of Vital Signs/I&O Vital Signs Date Time Temp Pulse Resp B/P B/P Pulse O2 O2 Flow FiO2 Mean Ox Delivery Rate 03/23 1523 98.1 69 20 127/60 93 Room Air 03/23 1244 Room Air 2.0L 03/23 0854 86 140/60 03/23 0854 86 140/60 03/23 0800 94 Nasal 2.0L Cannula 03/23 0658 98.7 86 22 140/60 94 Room Air 03/23 0045 70 96 03/23 0000 Nasal 2.0L Cannula 03/22 2235 98.1 72 22 146/70 93 Room Air 03/22 2216 60 95 03/22 2104 72 146/70 Intake & Output 03/23 1600 03/23 0800 03/23 0000 Intake Total 50 510 Output Total 100 Balance 50 410 Intake, Oral 50 510 Output, Urine 100 Physical Exam General Appearance: Alert, Oriented X3, Cooperative, No Acute Distress HEENT: Atraumatic, PERRLA Neck: Supple, No JVD, No thryomegaly Cardiovascular: Normal S1, Normal S2 Lungs: Clear to Auscultation, Normal Air Movement Abdomen: Normal Bowel Sounds, Soft, No Tenderness Extremities: Bilteral dressing dry and intact Current Medications: Current Medications Sig/Buck Start time Last Medication Dose Route Stop Time Status Admin Acetaminophen 650 MG .STK-MED ONE 03/22 2101 DC PO 03/22 210 Acetaminophen 650 MG Q6P PRN 03/12 2100 AC 03/22 PO 210 Aspirin Buffered 81 MG DAILY 03/11 1338 AC 03/22 PO 0938 Atorvastatin Calcium 10 MG 1700 03/11 1700 AC 03/22 PO 1733 Budesonide/ 2 PUF BID 03/11 1339 AC 03/22 Formoterol Fumarate INH 2106 Carvedilol 6.25 MG BID 03/15 1000 AC 03/22 PO 2104 Docusate Sodium 100 MG DAILY 03/13 1000 AC 03/18 PO 0928 Dofetilide 500 MCG BID 03/18 2200 AC 03/22 PO 210 Fish Oil 1,050 MG DAILY 03/11 1340 AC 03/22 PO 0938 Furosemide 20 MG DAILY 03/14 1511 AC 03/22 PO 0938 Insulin Aspart 0 TIDAC/HS 03/21 2100 AC 03/22 SC 2104 Lactobacillus 1 CAP BID 03/16 1014 AC 03/22 Acidophilus PO 2104 Lisinopril 5 MG DAILY 03/13 1047 AC 03/22 PO 0938 Magnesium Chloride 64 MG DAILY 03/12 1000 AC 03/22 PO 0939 Patient Medication 1 ED .[facility]-MED ONE 03/22 1431 [place] Teaching ED 03/22 1432 Polyethylene Glycol 17 GM DAILY PRN 03/13 0330 AC PO Senna 187 MG AT BEDTIME 03/13 2200 AC 03/17 PO 2137 Tamsulosin HCl 0.4 MG DAILY 03/11 1341 AC 03/22 PO 0938 Vitamin E 400 IU DAILY 03/11 1341 AC 03/22 PO 0938 Zinc Oxide 1 GENE BID 03/12 2200 AC 03/22 TOP 2106 Last 24 Hrs of Lab/Les Results Last 24 Hrs of Labs/Mics: Laboratory Tests 03/23/17 0647: CBC w Diff Pending, WBC Pending, RBC Pending, Hgb Pending, Hct Pending, MCV Pending, MCH Pending, RDW Pending, Plt Count Pending, MPV Pending, PUBS MCHC Pending Assessment/Plan Assessment: 76-year-old male with a past medical history of COPD, hyperlipidemia, diabetes mellitus, CAD s/p CABG in 2003 and AICD, BPH, LIAM, occult GI bleed, who presents to us with c/o weakness, and leg swelling. 1. Cellulitis of bilateral lower extremity swelling and wounds likely due to venous stasis * Dopplers negative for DVT * Wound care following the patient * Blood cultures negative 2. Diabetes mellitus, Hgb alc 8.3 * NovoLog sliding scale * Continue Accu-Cheks 3. Coronary artery disease status post CABG as well as AICD placement * ACS ruled out with negative troponin and EKG * Continue aspirin, carvedilol, atorvastatin, dofetilide, lisinopril, lasix * CXR negative for any acute pathology 4. Right hip pain, S/P prothesis 2 yrs ago Right hip XR showed loosening of hardware. Patient states had a previous Enterococcus pos hospitalization 10 months after hip replacement and received IV ampicillin. Records were requested from [facility] 03/17/17. Patient refused surgery in the OR with Dr. Young but now after second opinion with Dr. Ramires he is willing to have surgery done. * Right hip aspiration did not reveal purulent d/c * Right hip edith blood aspiration, pos for Enteroccoccus and moderate wbcs * ID consulted: Stable off antibiotics with temperatures remaining normal but with white blood cell count still mildly elevated, awaiting removal of the right hip prosthesis on March 21 for a presumed infection, with the recent aspiration under fluoroscopy 4 days ago positive for Enterococcus. * Begin ampicillin 2 g IV every [address] Motley * Blood cultures/sensitivity x 2 - negative (prelim report) * Dr. Young office contacted to schedule new appt for patient as an outpatient , call back pending 5. BPH * Continue on tamsulosin 0.4 mg daily 6. COPD * Continue on Symbicort * TRC nebs 7. LIAM on CPAP * Continue CPAP 8. Diarrhea - resolved. -DVT prophylaxis Heparin 5000 international units 3 times a day subcutaneous -CC3 Diet -Code Status Full code Problem List: 1. Septic arthritis 2. 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 Patient however is concerned with prolonged bedrest after surgery. Cellulitis lower extremity resolved Diabetes mellitus CAD status post CABG Status post AICD Plan ID and orthopedics were consulted during this hospital admission. ID followoing, will give i/v abx for 6 weeks, PICC line. Patient clinically stable this point. Patient refused orthopedic intervention. Patient explained risks/benefits of procedure including sepsis and . Patient got second opinion for ortho procedure, now thinking about surgery as o/ p. c/w home meds for now and case management f/u regarding d/c plans to STR. f /u Dr Young as o/p appointment for surgery plans. (Dr Young not available this week, patient wants Dr Young to do surgery). f/u o/p PCP in 3-5 days of dc.
[2017-03-23 08:09] LABS: ABSOLUTE BASOPHIL COUNT 0C# /CUMM (0.0-0.2); ABSOLUTE EOSINOPHIL COUNT 0.4 /CUMM (0.0-0.7); ABSOLUTE GRANULOCYTE CT 7.5 /CUMM (1.4-6.5); ABSOLUTE LYMPH COUNT 4.7 /CUMM (1.2-3.4); ABSOLUTE MONOCYTE COUNT 0.9 /CUMM (0.10-0.60); BASOPHIL % 0.6 % (0.0-2.0); EOSINOPHIL % 2.8 % (0-5); GRANULOCYTE % 55.6 % (42.2-75.2); HEMATOCRIT 41.4 % (42-52); MEAN CORPUSCULAR HGB 29.8 PG (27.0-31.0); MEAN CORPUSCULAR HGB CONC 33.1 G/DL (33.0-37.0); MEAN PLATELET VOLUME 9.2 FL (7.4-10.4); PLATELET COUNT 168 /CUMM (130-400); RBC DISTRIBUTION WIDTH 15.2 % (11.5-14.5); WHITE BLOOD CELL COUNT 13.6 /CUMM (4.8-10.8)
--- NOTE | 2017-03-23 12:06 | Cons- Orthopedic ---
General Information and HPI Consulting Request Date of Consult: 03/22/17 Requested By: MAYRA AGUILAR MD Reason for Consult: Second opinion in regards to a right hip problem Source of Information: patient, old records Exam Limitations: no limitations History of Present Illness: This patient is a 76-year-old man who is currently hospitalized for cellulitis but also for evaluation of a right hip problem. He has history of a right total hip arthroplasty approximately [address] Young at [facility]. This was done for osteoarthritis of the right hip. According to the patient, he did well following the surgery. He did have a subsequent fall in 2014 but apparently did not cause any problems for the replacement. He has had intermittent sharp pain in the right hip over the past 6 months. He denies any problems with the incision. No fevers. During this hospitalization he did have aspiration of the right hip. Cultures of fluoroscopically obtained aspiration of the right hip revealed enterococcus. It was recommended to the patient that he undergo explantation of the right total hip arthroplasty, cement spacer and IV antibiotics. Patient was repaired to proceed with surgical procedure and then was concerned about rehabilitation issues and postponed his surgical procedure and requested a second opinion. Allergies/Medications Allergies: Coded Allergies: NO KNOWN ALLERGIES (03/22/12) NKA PER DIPYRIDAMOLE ORDER SHEET - [facility] Home Med List: Amoxicillin/Potassium Clav (Augmentin 875-125 Tablet) 875 MG-125 MG TABLET 1 TAB PO BID Cellulitus Aspirin (Ecotrin*) 81 MG TABLET.DR 1 TAB PO DAILY HEART HEALTH (Reported) Carvedilol 6.25 MG TABLET 1 TAB PO BID HEART (Reported) Dofetilide 500 MCG CAPSULE 1 CAP PO BID HEART (Reported) Fluticasone-Salmeterol (Advair 100-50 Diskus) 100 MCG-50 MCG/DOSE BLST.W.DEV 1 PUF INH BID COPD (Reported) Furosemide 20 MG TABLET 20 MG PO DAILY leg swelling Liraglutide (Victoza 3-Myles) 0.6 MG/0.1 ML (18 MG/3 ML) PEN.INJCTR 1.2 MG SC DAILY DIABETES (Reported) Lisinopril (Prinivil) 5 MG TABLET 1 TAB PO DAILY HEART (Reported) Magnesium Gluconate (Mag-G) 27 MG (500 MG) TABLET 1 TAB PO Tuesday SUPPLEMENT (Reported) Metformin HCl 500 MG TABLET 1 TAB PO BID DIABETES (Reported) [place]-3/Dha/Epa/Fish Oil (Fish Oil 500 MG Softgel) 60 MG-90 MG-500 MG CAPSULE 1 CAP PO DAILY SUPPLEMENT (Reported) Simvastatin (Zocor*) 10 MG TABLET 1 TAB PO QPM CHOLESTEROL (Reported) Tamsulosin HCl (Flomax) 0.4 MG CAP.ER.24H 1 CAP PO DAILY PROSTATE (Reported) Vitamin E Acetate (Vitamin E) 400 UNIT CAPSULE 1 CAP PO BID SUPPLEMENT ( Reported) Past History Medical History Blood Transfusion Hx: No Neurological: NONE EENT: hearing loss Cardiovascular: AFIB, CAD, cardiomyopathy (ischemic), hypertension, hyperlipidemia, myocardial infarction, s/p pacemaker/AICD Respiratory: bronchitis, SLEEP APNEA Gastrointestinal: upper GI bleed Hepatic: NONE Renal: benign prost hyperplasia, nephrolithiasis Musculoskeletal: falls Psychiatric: NONE Endocrine: DIABETES TYPE 2 Blood Disorders: NONE Cancer(s): NONE 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 FH: heart disease BROTHER FH: lung cancer FATHER FH: prostate cancer Psychosocial History Where Do You Live? Home Who Do You Live With? with nephew Services at Home: None Primary Language: Wolof Smoking Status: Former Smoker (25 pck year) ETOH Use: occasional use Illicit Drug Use: denies illicit drug use Functional Ability ADLs Independent: eating. Needs Assist: dressing, toileting, bathing. Ambulation: walker IADLs Needs Assist: shopping, housework, finances, food prep, telephone, transportation, medication admin. 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 [employer] Exam & Diagnostic Data Vital Signs and I&O Vital Signs Date Time Temp Pulse Resp B/P B/P Pulse O2 O2 Flow FiO2 Mean Ox Delivery Rate 03/23 0854 86 140/60 03/23 0854 86 140/60 03/23 0800 94 Nasal 2.0L Cannula 03/23 0658 98.7 86 22 140/60 94 Room Air 03/23 0045 70 96 03/23 0000 Nasal 2.0L Cannula 03/22 2235 98.1 72 22 146/70 93 Room Air 03/22 2216 60 95 03/22 2104 72 146/70 03/22 1456 97.7 70 20 152/84 96 Room Air 03/22 1437 99.3 69 18 110/58 92 Intake & Output 03/23 1600 03/23 0800 03/23 0000 03/22 1600 03/22 0800 03/22 0000 Intake Total 50 510 722 50 120 Output Total 100 450 180 650 Balance 50 410 272 -130 -530 Intake, IV 2 Intake, Oral 50 510 720 50 120 Number 1 Bowel Movements Output, Urine 100 450 180 650 Physical Exam: Patient was found to be alert and appropriate. Patient had multiple gauze dressings on his lower extremities. Moderate diffuse swelling. No tenderness to palpation of his right hip. No definite rotatory abnormalities or leg length discrepancy. Internal and external rotation cause slight apprehension but patient states he was not in any pain. He did have some pain and weakness to resisted hip flexion. This reproduces some of his previous pain. Abduction passively aggravated symptoms as well. Changes consistent with chronic venous stasis Imaging Results: I reviewed x-rays of the right hip which showed a an uncemented total hip arthroplasty. Near circumferential lucency around the acetabular component but no evidence of malposition. No definite abnormality of the femoral stem Other Results: Cultures of the hip aspirate revealed enterococcus Assessment/Plan Assessment/Plan Infected right total hip arthroplasty-I explained the normal recommendations to the patient which included explantation, antibiotic cement spacer placement and resumption of the IV antibiotics. Patient is mostly concerned about how he would be able to ambulate after this type of procedure. I explained that the spacer can be an articulating spacer but ambulation may still be difficult in part due to other comorbid conditions. Patient is considering his options. He plans to follow-up with Dr. Young as outpatient Consult Acknowledgment - Thank you for your consult request. Attending MD Review Statement Attending Statement Attending MD Statement: examined this patient, discuss w/resident/PA/JOB COACH/JOB DEVELOPER, reviewed images
--- NOTE | 2017-03-23 12:33 | PN- Infect Dx ---
Subjective Subjective: Denies fevere/chills. Review of Systems Comments: 12 points reviewed as noted. No new c/o. Objective Last 24 Hrs of Vital Signs/I&O Vital Signs Date Time Temp Pulse Resp B/P B/P Pulse O2 O2 Flow FiO2 Mean Ox Delivery Rate 03/23 0854 86 140/60 03/23 0854 86 140/60 03/23 0800 94 Nasal 2.0L Cannula 03/23 0658 98.7 86 22 140/60 94 Room Air 03/23 0045 70 96 03/23 0000 Nasal 2.0L Cannula 03/22 2235 98.1 72 22 146/70 93 Room Air 03/22 2216 60 95 03/22 2104 72 146/70 03/22 1456 97.7 70 20 152/84 96 Room Air 03/22 1437 99.3 69 18 110/58 92 Intake & Output 03/23 1600 03/23 0800 03/23 0000 Intake Total 50 510 Output Total 100 Balance 50 410 Intake, Oral 50 510 Output, Urine 100 Physical Exam Other Physical Findings: General: Patient is morbidly obese who is awake alert oriented without any distress HEENT: AT/NC, sclera anicteric CVS: S1 plus S2 without any murmur or gallops Chest: Few scattered crepitation without any wheeze. There is no respiratory distress. Abdomen: Soft nontender, bowel sound present, no guarding or rebound COMPANY LABORER: Awake alert oriented without any focal neuro deficit and follows command appropriately Extremities: Bilateral chronic lower extremity edema is noted/stasis dermatitis changes/dressing in place ; no clubbing or cyanosis noted Results Last 24 Hours of Lab Results: Laboratory Tests 03/23 06 Hematology CBC w Diff NO MAN DIFF REQ WBC (4.8 - 10.8 /CUMM) 13.6 H RBC (4.70 - 6.10 /CUMM) 4.60 L Hgb (14.0 - 18.0 G/DL) 13.7 L Hct (42 - 52 %) 41.4 L MCV (80.0 - 94.0 FL) 90.0 MCH (27.0 - 31.0 PG) 29.8 RDW (11.5 - 14.5 %) 15.2 H Plt Count (130 - 400 /CUMM) 168 MPV (7.4 - 10.4 FL) 9.2 Gran % (42.2 - 75.2 %) 55.6 Lymphocytes % (20.5 - 51.1 %) 34.6 Monocytes % (1.7 - 9.3 %) 6.4 Eosinophils % (0 - 5 %) 2.8 Basophils % (0.0 - 2.0 %) 0.6 Absolute Granulocytes (1.4 - 6.5 /CUMM) 7.5 H Absolute Lymphocytes (1.2 - 3.4 /CUMM) 4.7 H Absolute Monocytes (0.10 - 0.60 /CUMM) 0.9 H Absolute Eosinophils (0.0 - 0.7 /CUMM) 0.4 Absolute Basophils (0.0 - 0.2 /CUMM) 0C# PUBS MCHC (33.0 - 37.0 G/DL) 33.1 Last 24 Hours of Les Results: SPEC #: [id number] CARMEN: 03/15/17 STATUS: COMP RECD: 03/15/[address]: CHRISTINE RODRÍGUEZ,JAVED SOURCE: TRUNK/O.R. ENTR: 03/15/[address]: LAUREN RODRÍGUEZ,MAYRA SPDC: HIP RIGHT ISIDORO ,JUAN Cornejo ORDERED: TRUNK OR CULT COMMENT: ADDITIONAL INFORMATION: JOINT FLUID Procedure Result > GRAM STAIN Final 03/16/17-16 WHITE BLOOD CELLS MODERATE OTHER NO ORGANISMS SEEN > TRUNK AREA OR CULTURE Final 03/18/17-1232 SCANT GROWTH OF: ENTEROCOCCUS REPORTED TO: NUR. DENIS AT 0910 03/17/17.LAB.SVCY. 1. ENTEROCOCCUS RX AB ------ -- AMPICILLIN S VANCOMYCIN S Recent Imaging Studies: n/a Assessment/Plan Impression: 76-year-old man with DM2, coronary artery disease, status post CABG, paroxysmal atrial fibrillation, not on anticoagulation, status post pacemaker/AICD 12 years prior to admission, COPD, with obstructive sleep apnea, on CPAP, BPH, GI bleed, osteoarthritis, status post right hip replacement 2 years prior to admission, and venous insufficiency admitted with right hip pain/Enterococcus R prosthetic hip infection on 03/15/17. Off antibiotics with temperatures remaining normal while white blood cell count continues to trend up, planned removal of the right hip prosthesis, as patient agrees to the procedure now. F/U w/ Dr. Young recommendations as discharge to ECF off abx peending surgery while he has worsening leukocytosis is not advised. He was hospitalized in October 2014, 10 months after his hip replacement, with Enterococcal sepsis, treated with a 4 week course of IV Ampicillin, with the source never identified and with no evidence of a hip infection at that time. Suggestion: 1. Call if fever. Observed off abx pnd intraop cultures. Monitor for sepsis as inpatient. 2. Continue local wound care to both lower extremities 3. Trend CBC/BMP.
[2017-03-23 15:23] VITALS: BP 127/60
--- NOTE | 2017-03-23 20:04 | PN- Cardiology ---
Subjective Subjective: No new complaints. Was seen in consultation for second opinion by Dr. Healy and plans to proceed with left hip surgery as previously outlined with Dr. Angel. Objective Vital Signs and I&Os Vital Signs Date Time Temp Pulse Resp B/P B/P Pulse O2 O2 Flow FiO2 Mean Ox Delivery Rate 03/23 1523 98.1 69 20 127/60 93 Room Air 03/23 1244 Room Air 2.0L 03/23 0854 86 140/60 03/23 0854 86 140/60 03/23 0800 94 Nasal 2.0L Cannula 03/23 0658 98.7 86 22 140/60 94 Room Air 03/23 0045 70 96 03/23 0000 Nasal 2.0L Cannula 03/22 2235 98.1 72 22 146/70 93 Room Air 03/22 2216 60 95 03/22 2104 72 146/70 Intake & Output 03/23 1600 03/23 0800 03/23 0000 03/22 1600 03/22 0800 03/22 0000 Intake Total 450 50 510 722 50 120 Output Total 500 100 450 180 650 Balance -50 50 410 272 -130 -530 Intake, IV 2 Intake, Oral 450 50 510 720 50 120 Number 1 Bowel Movements Output, Urine 500 100 450 180 650 Physical Exam: Well-developed, morbidly obese elderly male in no acute distress. Vital signs: See above. Lungs: Clear to auscultation. Heart: S1, S2 with no murmur, gallop, rub appreciated. Abdomen: Soft, nontender, positive bowel sounds. Extremities: Lower extremity edema. Current Medications: Current Medications Sig/Buck Start time Last Medication Dose Route Stop Time Status Admin Acetaminophen 650 MG .STK-MED ONE 03/22 2101 DC PO 03/22 2102 Acetaminophen 650 MG Q6P PRN 03/12 2100 AC 03/22 PO 210 Ampicillin 2,000 MG Q6H 03/23 1600 AC 03/23 Sodium Chloride 100 ML IV 1707 Aspirin Buffered 81 MG DAILY 03/11 1338 AC 03/23 PO 0854 Atorvastatin Calcium 10 MG 1700 03/11 1700 AC 03/23 PO 1707 Budesonide/ 2 PUF BID 03/11 1339 AC 03/23 Formoterol Fumarate INH 0858 Carvedilol 6.25 MG BID 03/15 1000 AC 03/23 PO 0854 Docusate Sodium 100 MG DAILY 03/13 1000 AC 03/18 PO 0928 Dofetilide 500 MCG BID 03/18 2200 AC 03/23 PO 0855 Fish Oil 1,050 MG DAILY 03/11 1340 AC 03/23 PO 0855 Furosemide 20 MG DAILY 03/14 1511 AC 03/23 PO 0855 Insulin Aspart 0 TIDAC/HS 03/21 2100 AC 03/23 SC 1722 Lactobacillus 1 CAP BID 03/16 1014 AC 03/23 Acidophilus PO 0855 Lisinopril 5 MG DAILY 03/13 1047 AC 03/23 PO 0855 Magnesium Chloride 64 MG DAILY 03/12 1000 AC 03/23 PO 0856 Polyethylene Glycol 17 GM DAILY PRN 03/13 0330 AC PO Senna 187 MG AT BEDTIME 03/13 2200 AC 03/17 PO 2137 Tamsulosin HCl 0.4 MG DAILY 03/11 1341 AC 03/23 PO 0854 Vitamin E 400 IU DAILY 03/11 1341 AC 03/23 PO 0855 Zinc Oxide 1 GENE BID 03/12 2200 03/23 TOP 0901 Results Last 48 Hrs of Labs/Mics: Laboratory Tests 03/23/17 0647: CBC w Diff NO MAN DIFF REQ, RBC 4.60 L, MCV 90.0, MCH 29.8, RDW 15.2 H, MPV 9.2, Gran % 55.6, Lymphocytes % 34.6, Monocytes % 6.4, Eosinophils % 2.8, Basophils % 0.6, Absolute Granulocytes 7.5 H, Absolute Lymphocytes 4.7 H, Absolute Monocytes 0.9 H, Absolute Eosinophils 0.4, Absolute Basophils 0C#, PUBS MCHC 33.1 03/22/17 0620: C-Reactive Prot, Quant 2.9 H, C-React Prot High Sens > 15.0 H, CBC w Diff NO MAN DIFF REQ, RBC 4.56 L, MCV 89.5, MCH 29.8, RDW 14.9 H, MPV 8.9, Gran % 57.7 , Lymphocytes % 32.6, Monocytes % 6.4, Eosinophils % 2.8, Basophils % 0.5, Absolute Granulocytes 7.8 H, Absolute Lymphocytes 4.4 H, Absolute Monocytes 0.9 H, Absolute Eosinophils 0.4, Absolute Basophils 0.1, PUBS MCHC 33.3, ESR Westergren 30 H Assessment/Plan Assessment/Plan [id number] w/ hx of morbid obesity, LIAM on CPAP, COPD, HTN, HLD, DM, CAD/ICM (s/ p IMI in 1998, CABG 4 w/ WHITE to LAD and individual SVGs to Dx, OM, PDA & MAZE) , and recurrent PAF who presented in an unkempt state via ambulance after being discovered on the floor of his home several hours after he had fallen w/ findings of a UTI, bilateral lower extremity cellulitis, edema, etc. Right hip aspiration culture (03/15/2017) growing Enterococcus consistent with infected prosthesis. Remains afebrile off antimicrobial therapy with elevated WBC count. The plan was for explantation of his right hip prosthesis by Dr. Young and Mr. Walls is now comfortable with proceeding with the surgery after obtaining a second opinion from Dr. Healy. His last pharmacologic stress test was performed on 11/25/2014 and was negative for ischemia. Reasonable to repeat a pharmacologic stress test prior to planned orthopedic surgery. Recommendations: * Continue on telemetry w/ strict inputs/outputs and daily weights. * BiV pacemaker/defibrillator functioning properly without the need for reprogramming. * Continue diuretic therapy w/ improved renal function, in the hope of improving edema. * Continue beta guillermo, antiarrhythmic, antiplatelets, statin, CLARISA inhibitor, etc. * Continue to follow-up on infectious disease and orthopedic surgery recommendations. * DVT prophylaxis.
[2017-03-23 21:36] VITALS: BP 140/62
[2017-03-24 08:01] VITALS: BP 132/68
[2017-03-24 08:07] LABS: ABSOLUTE BASOPHIL COUNT 0.1 /CUMM (0.0-0.2); ABSOLUTE EOSINOPHIL COUNT 0.3 /CUMM (0.0-0.7); ABSOLUTE GRANULOCYTE CT 6.9 /CUMM (1.4-6.5); ABSOLUTE MONOCYTE COUNT 0.6 /CUMM (0.10-0.60); BASOPHIL % 0.7 % (0.0-2.0); EOSINOPHIL % 2.9 % (0-5); GRANULOCYTE % 57.6 % (42.2-75.2); MEAN CORPUSCULAR HGB CONC 33.4 G/DL (33.0-37.0); MEAN CORPUSCULAR VOLUME 89.9 FL (80.0-94.0); MEAN PLATELET VOLUME 9.4 FL (7.4-10.4); PLATELET COUNT 139 /CUMM (130-400); RBC DISTRIBUTION WIDTH 14.8 % (11.5-14.5); RED BLOOD CELL CT 4.34 /CUMM (4.70-6.10)
--- NOTE | 2017-03-24 08:41 | PN- Housestaff ---
TYLER LOPEZ 03/24/17 0841: Subjective Follow-up For: Cellulitus of lower extremities R hip pain s/p aspiration pos for Enterococcus Subjective: Patient has no complaints. No acute events overnight Review of Systems Constitutional: Reports: see HPI. Objective Last 24 Hrs of Vital Signs/I&O Vital Signs Date Time Temp Pulse Resp B/P B/P Pulse O2 O2 Flow FiO2 Mean Ox Delivery Rate 03/24 1239 98.7 73 20 132/68 03/24 0938 Room Air 2.0L 03/24 0906 73 132/68 03/24 0906 73 132/68 03/24 0906 73 132/68 03/24 0801 98.7 73 20 132/68 97 Room Air 03/24 0800 Room Air 03/23 2220 69 140/62 03/23 2213 70 93 03/23 2136 98.8 68 20 140/62 94 03/23 1600 Room Air 03/23 1523 98.1 69 20 127/60 93 Room Air Intake & Output 03/24 1600 03/24 0800 03/24 0000 Intake Total 100 Output Total 400 Balance -300 Intake, Oral 100 Output, Urine 400 Patient 272 lb Weight Weight Chair scale Measurement Method Physical Exam General Appearance: Alert, Oriented X3, Cooperative, No Acute Distress HEENT: Atraumatic, PERRLA Neck: Supple, No JVD, No thryomegaly Cardiovascular: Normal S1, Normal S2 Lungs: Clear to Auscultation, Normal Air Movement Abdomen: Normal Bowel Sounds, Soft, No Tenderness Extremities: Bilateral dressing dry and intact Current Medications: Current Medications Sig/Buck Start time Last Medication Dose Route Stop Time Status Admin Acetaminophen 650 MG Q6P PRN 03/12 2100 AC 03/22 PO 2104 Ampicillin 2,000 MG Q6H 03/23 1600 AC 03/24 Sodium Chloride 100 ML IV 0903 Aspirin Buffered 81 MG DAILY 03/11 1338 AC 03/24 PO 0906 Atorvastatin Calcium 10 MG 1700 03/11 1700 AC 03/23 PO 1707 Budesonide/ 2 PUF BID 03/11 1339 AC 03/24 Formoterol Fumarate INH 0909 Carvedilol 6.25 MG BID 03/15 1000 AC 03/24 PO 0906 Docusate Sodium 100 MG DAILY 03/13 1000 AC 03/18 PO 0928 Dofetilide 500 MCG BID 03/18 2200 AC 03/24 PO 0906 Fish Oil 1,050 MG DAILY 03/11 1340 AC 03/24 PO 0906 Furosemide 20 MG DAILY 03/14 1511 AC 03/24 PO 0906 Heparin Sodium 0 .STK-MED ONE 03/24 1054 DC (Porcine) IV Insulin Aspart 0 TIDAC/HS 03/21 2100 AC 03/24 SC 1238 Lactobacillus 1 CAP BID 03/16 1014 AC 03/24 Acidophilus PO 0906 Lidocaine 0 .STK-MED ONE 03/24 1055 DC .ROUTE Lisinopril 5 MG DAILY 03/13 1047 AC 03/24 PO 0906 Magnesium Chloride 64 MG DAILY 03/12 1000 AC 03/24 PO 0906 Polyethylene Glycol 17 GM DAILY PRN 03/13 0330 AC PO Senna 187 MG AT BEDTIME 03/13 2200 AC 03/23 PO 2220 Tamsulosin HCl 0.4 MG DAILY 03/11 1341 AC 03/24 PO 0906 Vitamin E 400 IU DAILY 03/11 1341 AC 03/24 PO 0906 Zinc Oxide 1 GENE BID 03/12 2200 AC 03/24 TOP 0910 Last 24 Hrs of Lab/Les Results Last 24 Hrs of Labs/Mics: Laboratory Tests 03/24/17 0625: Anion Gap 10, Estimated GFR > 60, BUN/Creatinine Ratio 18.9, CBC w Diff NO MAN DIFF REQ, RBC 4.34 L, MCV 89.9, MCH 30.0, RDW 14.8 H, MPV 9.4, Gran % 57.6, Lymphocytes % 33.5, Monocytes % 5.3, Eosinophils % 2.9, Basophils % 0.7, Absolute Granulocytes 6.9 H, Absolute Lymphocytes 4.0 H, Absolute Monocytes 0.6, Absolute Eosinophils 0.3, Absolute Basophils 0.1, PUBS MCHC 33.4 Assessment/Plan Assessment: 76-year-old male with a past medical history of COPD, hyperlipidemia, diabetes mellitus, CAD s/p CABG in 2003 and AICD, BPH, LIAM, occult GI bleed, who presents to us with c/o weakness, and leg swelling. 1. Cellulitis of bilateral lower extremity swelling and wounds likely due to venous stasis * Dopplers negative for DVT * Wound care following the patient * Blood cultures negative 2. Diabetes mellitus, Hgb alc 8.3 * NovoLog sliding scale * Continue Accu-Cheks 3. Coronary artery disease status post CABG as well as AICD placement * ACS ruled out with negative troponin and EKG * Continue aspirin, carvedilol, atorvastatin, dofetilide, lisinopril, lasix * CXR negative for any acute pathology 4. Right hip pain, S/P prothesis 2 yrs ago Right hip XR showed loosening of hardware. Patient states had a previous Enterococcus pos hospitalization 10 months after hip replacement and received IV ampicillin. Records were requested from [facility] 03/17/17. Patient refused surgery in the OR with Dr. Young but now after second opinion with Dr. Ramires he is willing to have surgery done. * Right hip aspiration did not reveal purulent d/c * Right hip edith blood aspiration, pos for Enteroccoccus and moderate wbcs * ID consulted: Stable off antibiotics with temperatures remaining normal but with white blood cell count still mildly elevated, awaiting removal of the right hip prosthesis on March 21 for a presumed infection, with the recent aspiration under fluoroscopy 4 days ago positive for Enterococcus. * Begin ampicillin 2 g IV every 6 hours through picc line for [address] Motley * Blood cultures/sensitivity x 2 - negative (prelim report) * Dr. Young office contactedspoke with nelly Baumann scheduled for at 1:45pm 5. BPH * Continue on tamsulosin 0.4 mg daily 6. COPD * Continue on Symbicort * TRC nebs 7. LIAM on CPAP * Continue CPAP 8. Diarrhea - resolved. -DVT prophylaxis Heparin 5000 international units 3 times a day subcutaneous -CC3 Diet -Code Status Full code Problem List: 1. Septic arthritis 2. Cellulitis 3. Diabetes mellitus 4. CAD (coronary artery disease) 5. LIAM (obstructive sleep apnea) 6. BPH (benign prostatic hyperplasia) 7. 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 Patient however is concerned with prolonged bedrest after surgery. Cellulitis lower extremity resolved Diabetes mellitus CAD status post CABG Status post AICD Plan ID and orthopedics were consulted during this hospital admission. ID following (/tue Dr Motley), will give i/v abx for 6 weeks, PICC line. Patient clinically stable this point. Patient refused orthopedic intervention first time. Patient explained risks/ benefits of procedure including sepsis and . Patient got second opinion for ortho procedure, now thinking about surgery as o/ p. c/w home meds for now and case management f/u regarding d/c plans to [facility]. f /u Dr Young as o/p appointment for surgery plans. (Dr Young not available this week, patient wants Dr Young to do surgery). f/u o/p PCP in 3-5 days of dc). Dr. Young office contacted spoke with nelly Baumann scheduled for 04/05/17 at 1:45pm. Patient advised to follow with orthopedics. Patient understand his treatment plan and is in agreement.
[2017-03-24 09:58] LABS: WHITE BLOOD CELL COUNT 11.9 /CUMM (4.8-10.8)
--- NOTE | 2017-03-24 10:48 | NUR ---
WOUND CARE: PT SEEN TODAY FOR F/U OF SKIN ATLERATIONS PRESENT ON ADMISSION- PT OBSERVED IN BEDSIDE CHAIR - SIGNIFICANT IMPROVEMENT IN HIS PAIN LEVEL SINCE PRIOOR ASSESSMENT - PT STANDING FOR BUTTOCKS EVAL WITH ASSISTANCE OF RN AND WALKER - RIGHT BUTTOCKS 1.8 X 0.2 CM SUPEORIFICIAL STAGE 2 SKIN ALTERATION NOTED CLEAN PINK FILL WITH BRIDGE OF EPITHELIAL TISSUE AT CENTER - SCANT DRNG - NO C/O - RIGHT LEG 5X2 CM MACERATED PATCH INTACT SKIN - LEFT LEG MULTIPLE PARTIAL THICKNESS WOUNDS NOTED - 4X3.8 CM, 10X8 CM CLUSTERED, 2.7 X 3.8 CM PARTIAL THICKNESS WOUND - MINIMAL DRNG - ALL WOUNDS CLEANSED WITH NS FB ADAPTIC AND KERLIX - + PALPABLE DP PULSES - SLIGHTDEPENDENT EDEMA NOTED] RECOMMEDNATION: APPLY MOISTURE BARRIER TO BUTTOCKS QS AND PRN - ENCOURAGE SIDE LYING POSITION - CLEANSE LEG WOUNDS WITH NS FB ADAPTIC FB KERLIX FB CLARISA WRAPS WITH LIGHT COMPRESSION FROM BASE OF TOES TO TIBIAL TUBEROSITY DAILY
[2017-03-24 12:39] VITALS: BP 132/68
[2017-03-24] MEDS ORDERED: ACIDOPHILUS1 EACH PO (13:03)
[2017-03-24] MEDS ORDERED: AMPICILLIN SODIU2 G2 IV (13:03)
--- NOTE | 2017-03-24 13:47 | PN- Infect Dx ---
Subjective Subjective: Patient at times w/ very mild burning when voiding. No fever. Decreased R hip pain. Review of Systems Comments: 12 points reviewed as noted, otherwise negative. Objective Last 24 Hrs of Vital Signs/I&O Vital Signs Date Time Temp Pulse Resp B/P B/P Pulse O2 O2 Flow FiO2 Mean Ox Delivery Rate 03/24 1239 98.7 73 20 132/68 03/24 0938 Room Air 2.0L 03/24 0906 73 132/68 03/24 0906 73 132/68 03/24 0906 73 132/68 03/24 0801 98.7 73 20 132/68 97 Room Air 03/24 0800 Room Air 03/23 2220 69 140/62 03/23 2213 70 93 03/23 2136 98.8 68 20 140/62 94 03/23 1600 Room Air 03/23 1523 98.1 69 20 127/60 93 Room Air Intake & Output 03/24 1600 03/24 0800 03/24 0000 Intake Total 100 Output Total 400 Balance -300 Intake, Oral 100 Output, Urine 400 Patient 272 lb Weight Weight Chair scale Measurement Method Physical Exam Other Physical Findings: General: NAD, elevated BMI HEENT: AT/NC, sclera anicteric CVS: S1 plus S2 without any murmur or gallops Chest: Few scattered crepitation without any wheeze. There is no respiratory distress. Abdomen: Soft nontender, bowel sound present, no guarding or rebound WARP PICKER: Awake alert oriented x3, without any focal neuro deficit Extremities: Bilateral chronic lower extremity edema is noted/stasis dermatitis changes/dressing in place ; no clubbing or cyanosis noted Per wound care: RIGHT BUTTOCKS 1.8 X 0.2 CM SUPEORIFICIAL STAGE 2 SKIN ALTERATION NOTED CLEAN PINK FILL WITH BRIDGE OF EPITHELIAL TISSUE AT CENTER - SCANT DRNG - NO C/O - RIGHT LEG 5X2 CM MACERATED PATCH INTACT SKIN - LEFT LEG MULTIPLE PARTIAL THICKNESS WOUNDS NOTED - 4X3.8 CM, 10X8 CM CLUSTERED, 2.7 X 3.8 CM Results Last 24 Hours of Lab Results: Laboratory Tests 03/24 0625 Chemistry Sodium (137 - 145 mmol/L) 137 Potassium (3.5 - 5.1 mmol/L) 4.7 Chloride (98 - 107 mmol/L) 104 Carbon Dioxide (22 - 30 mmol/L) 23 Anion Gap (5 - 16) 10 BUN (9 - 20 mg/dL) 17 Creatinine (0.7 - 1.2 mg/dL) 0.9 Estimated GFR (>60 ml/min) > 60 BUN/Creatinine Ratio (7 - 25 %) 18.9 Hematology CBC w Diff NO MAN DIFF REQ WBC (4.8 - 10.8 /CUMM) 11.9 H RBC (4.70 - 6.10 /CUMM) 4.34 L Hgb (14.0 - 18.0 G/DL) 13.0 L Hct (42 - 52 %) 39.0 L MCV (80.0 - 94.0 FL) 89.9 MCH (27.0 - 31.0 PG) 30.0 RDW (11.5 - 14.5 %) 14.8 H Plt Count (130 - 400 /CUMM) 139 MPV (7.4 - 10.4 FL) 9.4 Gran % (42.2 - 75.2 %) 57.6 Lymphocytes % (20.5 - 51.1 %) 33.5 Monocytes % (1.7 - 9.3 %) 5.3 Eosinophils % (0 - 5 %) 2.9 Basophils % (0.0 - 2.0 %) 0.7 Absolute Granulocytes (1.4 - 6.5 /CUMM) 6.9 H Absolute Lymphocytes (1.2 - 3.4 /CUMM) 4.0 H Absolute Monocytes (0.10 - 0.60 /CUMM) 0.6 Absolute Eosinophils (0.0 - 0.7 /CUMM) 0.3 Absolute Basophils (0.0 - 0.2 /CUMM) 0.1 PUBS MCHC (33.0 - 37.0 G/DL) 33.4 Last 24 Hours of Les Results: n/a Recent Imaging Studies: n/a Assessment/Plan Impression: 76-year-old man with DM2, coronary artery disease, status post CABG, paroxysmal atrial fibrillation, not on anticoagulation, status post pacemaker/AICD 12 years prior to admission, COPD, with obstructive sleep apnea, on CPAP, BPH, GI bleed, osteoarthritis, status post right hip replacement 2 years prior to admission, and venous insufficiency admitted with right hip pain/Enterococcus R prosthetic hip infection on 03/15/17. He was hospitalized in October 2014, 10 months after his hip replacement, with Enterococcal sepsis, treated with a 4 week course of IV Ampicillin, with the source never identified and with no evidence of a hip infection at that time. Off antibiotics with temperatures remaining normal he developed leukocytosis; currently white blood cell count trending down; planned removal of the right hip prosthesis next week. as clinically stable plan to discharge to [facility] off abx pending surgery. Suggestion: 1. Observed off abx. As WBC trending down and clinically improved plan to d/c at [facility]; monitor patient clinically at [facility]. 2. Continue local wound care to both lower extremities. 3. Trend CBC/BMP/ESR at [facility] within 72 h from discharge. 4. If ur sx UA/UC as OP.
--- NOTE | 2017-03-24 15:14 | INTERVENTIONAL RADIOLOGY RPT ---
CLINICAL HISTORY: This patient is a 76-year-old male with a history of hip infection, who presents to interventional radiology for placement of a double lumen PICC for central venous access. PROCEDURES: 1. Real-time ultrasound-guided access into the right basilic vein after documentation of selected vessel patency, and permanent imaging storing in the patient records. 2. Placement of a PICC. PHYSICIANS: Dr. Jesus Mendiola (attending). MEDICATIONS: 7 mL of 1% lidocaine SQ. COMPLICATIONS: None. ESTIMATED BLOOD LOSS: <5 mL. SPECIMENS: None. FLUOROSCOPY TIME: 0.6 minutes. PROCEDURE NOTE: Informed consent was obtained from the patient prior to the procedure. During this process, the procedure and potential alternatives were explained along with the intended outcome and benefits. The risks of the procedure, including the possibility of an unsuccessful procedure, as well as the risk of not doing the procedure, were discussed. The patient was given the opportunity to ask questions regarding the procedure and appeared competent to make decisions. A signed consent form documenting this discussion was placed in the medical record. A time-out procedure was performed. The patient was placed supine on the fluoroscopy table. Prior to prepping the patient, a limited sonogram of the right arm was performed to choose appropriate access, and this arm was prepped and draped in the usual sterile fashion. All elements of maximal sterile barrier technique followed including use of cap, mask, sterile gown, sterile gloves, a sterile full body drape and hand hygiene. Also followed skin preparation with 2% chlorhexidine for cutaneous antisepsis, and sterile ultrasound preparation with sterile gel and probe cover when applicable. Venous access was achieved into the right basilic vein using ultrasound and fluoroscopic guidance. The 0.018 measuring wire from the PICC was advanced into the cavoatrial junction. The needle was removed and replaced with the peel away sheath. The intravascular length was measured and the catheter was trimmed to the correct length. The inner dilator was removed and the PICC was advanced over the wire into the cavoatrial junction. The peel away sheath and wire were removed. The catheter was tested successfully and secured to the skin with its tip in the cavoatrial junction. A spot image was taken. FINDINGS: 1. Patent right basilic vein. 2. Successful placement of a 6 Fr double lumen PICC that measures 50 cm in length. IMPRESSION: Successful and uncomplicated placement of a PICC. PLAN: 1. The patient was stable after the procedure and was transferred to the interventional recovery area. The patient will be transferred back to his medical room. 2. The PICC may be used immediately.
[2017-03-24 15:21] VITALS: BP 134/60
--- NOTE | 2017-03-25 11:46 | NUR ---
Late Entry: Aware of patients discharge yesterday. Patient remained reluctant for surgical intervention; received second opinion and now is reconsidering. Patient discharged to [facility] yesterday.
== END 2017-03-24 15:35 | DRG 560 ==
LOC: ERH 08:00 → 1NO 11:48 → ERHI 11:48 → 1NO 11:48 → ENRESERV 13:20 → ENTRNSPT 14:36 → EDTRNSPT 14:36 → 1NO 14:52 → 2NB 14:52 → 1NO 15:05 → CMPTRNSPT 15:16 → ENTRNSPT 03-15 19:50 → CMPTRNSPT 03-15 20:16 → ENPENDDIS 03-24 13:44 → 1NO 03-24 15:35
PROVIDERS: Emergency Medicine; Hospitalist; Internal Medicine Infectious Disease; Student in an Organized Health Care Education/Training Program; ADMIT Hospitalist
PROC: 0S993ZX Drainage of Right Hip Joint, Percutaneous Approach, Diagnostic (ICD-10-PCS; principal; 2017-03-15)
PROC: 02HV33Z Insertion of Infusion Device into Superior Vena Cava, Percutaneous Approach (ICD-10-PCS; 2017-03-24)
DX: T84.51XA Infection and inflammatory reaction due to internal right hip prosthesis, initial encounter (principal); L03.116 Cellulitis of left lower limb; N17.9 Acute kidney failure, unspecified; L89.301 Pressure ulcer of unspecified buttock, stage 1; L03.115 Cellulitis of right lower limb; E11.65 Type 2 diabetes mellitus with hyperglycemia; M00.851 Arthritis due to other bacteria, right hip; T84.030A Mechanical loosening of internal right hip prosthetic joint, initial encounter; N39.0 Urinary tract infection, site not specified; E86.0 Dehydration; L97.911 Non-pressure chronic ulcer of unspecified part of right lower leg limited to breakdown of skin; L97.921 Non-pressure chronic ulcer of unspecified part of left lower leg limited to breakdown of skin; E66.01 Morbid (severe) obesity due to excess calories; R60.9 Edema, unspecified; Z68.38 Body mass index [BMI] 38.0-38.9, adult; I87.8 Other specified disorders of veins; B95.2 Enterococcus as the cause of diseases classified elsewhere; I25.5 Ischemic cardiomyopathy; J44.9 Chronic obstructive pulmonary disease, unspecified; E78.5 Hyperlipidemia, unspecified; I25.10 Atherosclerotic heart disease of native coronary artery without angina pectoris; Z95.1 Presence of aortocoronary bypass graft; Z95.810 Presence of automatic (implantable) cardiac defibrillator; N40.0 Benign prostatic hyperplasia without lower urinary tract symptoms; G47.33 Obstructive sleep apnea (adult) (pediatric); Z79.84 Long term (current) use of oral hypoglycemic drugs; Z87.442 Personal history of urinary calculi; Z87.891 Personal history of nicotine dependence; I48.0 Paroxysmal atrial fibrillation; M19.90 Unspecified osteoarthritis, unspecified site; I44.0 Atrioventricular block, first degree
CPT/HCPCS: 1NSP; 87070; 87075; 36415; 73501; 73502-RT; 77001; 81001; 82436; 87040; 87147; 93005; 93010; 93306; 93970; 97110-GO; 97116-GO; 97161-GP; 97530-GO; C1769; J0131; J0290; J0690; J1100; J1642; J1644; J1815; J2405; J3490; J7042; J7060

== ENCOUNTER 2017-07-08 14:27 | Inpatient (IN) | payer OTHER ==
[~2017-07-08] VITALS: Ht 175.3 cm; Wt 113.6 kg
[~2017-07-08 14:27] MED LIST changes: +ACIDOPHILUS1 EACH PO; +AMPICILLIN SODIU2 G2 IV; +AUGMENTIN 875-1 EACH PO; +COLACE100 M1 PO; +DILAUDID2 M1 PO; +DOFETILIDE500 MCG PO; +ELIQUIS2.5 M1 PO; +FUROSEMIDE20 M1 PO; +MAG-G27 MG PO; +MIRALAX17 G1 PO; +OXYCODONE HCL5 M1 PO; +PRINIVIL5 M1 PO; +UNASYN 3 GM VIAL3 GM IV; +VITAMIN E400 UNI4 PO
--- NOTE | 2017-07-08 14:35 | ED AMS/SEIZURE/WEAK/DIZZY ---
History of Present Illness General Chief Complaint: General Adult Stated Complaint: BIBA, WEAKNESS Source: patient, family, EMS Exam Limitations: clinical condition, confusion Vital Signs & Intake/Output Vital Signs & Intake/Output Vital Signs Date Time Temp Pulse Resp B/P B/P Pulse O2 O2 Flow FiO2 Mean Ox Delivery Rate 07/08 1844 Room Air 07/08 1742 99.2 54 16 125/62 92 Room Air 07/08 1558 101.9 72 16 124/63 93 Room Air 07/08 1523 101.9 07/08 1432 101.9 76 22 128/60 91 Room Air Allergies Coded Allergies: NO KNOWN ALLERGIES (03/22/12) NKA PER DIPYRIDAMOLE ORDER SHEET - S Triage Nurses Notes Reviewed? yes Onset: Gradual Duration: day(s): (2-3), constant, continues in ED, getting worse Timing: single episode today Injury Environment: home Severity: moderate, severe No Modifying Factors: none HPI: 76-year-old male past medical history of atrial fibrillation, hypertension, diabetes brought in by ambulance for evaluation of weakness and unable to ambulate. Patient's nephew reports that he was seen by his primary care doctor on Tuesday for a physical and diagnosed with urinary check infection yesterday and started on Macrodantin. Since yesterday patient has had gradually increasing weakness and is now unable to ambulate. He has been sitting in a chair for the past 2 days and is not eating or drinking. He took 2 doses of the antibiotics. He feels like patient is confused. He started developing fevers today. Has not taken any Tylenol for fever. Patient reports pain in the right hip that is worse with movement. He states that is making it difficult for him to ambulate. He is scheduled to have a hip replacement later this month. Patient was previously walking with a walker over the past 2 days been able to do this. Nephew reports that patient has had these symptoms in the past when he has an infection. No chest pain shortness of breath or abdominal pain. Patient denies any urinary symptoms. His nephew reports that he does have a history of kidney stones. (RICKI YOUNGER,ELIOT) Reconcile Medications Aspirin (Ecotrin*) 81 MG TABLET. 1 TAB PO DAILY HEART/BLOOD (Reported) Carvedilol 6.25 MG TABLET 1 TAB PO BID HEART (Reported) Dofetilide 500 MCG CAPSULE 1 CAP PO BID HEART (Reported) Fluticasone-Salmeterol (Advair 100-50 Diskus) 100 MCG-50 MCG/DOSE BLST.W.DEV 1 PUF INH BID COPD (Reported) Liraglutide (Victoza 3-Myles) 0.6 MG/0.1 ML (18 MG/3 ML) PEN.INJCTR 1.2 MG SC QAM DIABETES (Reported) Lisinopril (Prinivil) 5 MG TABLET 1 TAB PO QHS HEART/BP (Reported) Magnesium Gluconate (Mag-G) 27 MG (500 MG) TABLET 1 TAB PO Tuesday SUPPLEMENT (Reported) Metformin HCl 500 MG TABLET 1 TAB PO BID DIABETES (Reported) [place]-3/Dha/Epa/Fish Oil (Fish Oil 500 MG Softgel) 60 MG-90 MG-500 MG CAPSULE 1 CAP PO QPM SUPPLEMENT (Reported) Simvastatin (Zocor*) 10 MG TABLET 1 TAB PO QHS CHOLESTEROL (Reported) Tamsulosin HCl (Flomax) 0.4 MG CAP.ER.24H 1 CAP PO DAILY PROSTATE (Reported) Vitamin E Acetate (Vitamin E) 400 UNIT CAPSULE 1 CAP PO BID SUPPLEMENT ( Reported) (KATTY CERON DO) Past History Travel History Traveled to [place] past 21 day No Medical History Any Pertinent Medical History? 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 FH: heart disease BROTHER FH: lung cancer FATHER FH: prostate cancer Hx Contributory? No (ELIOT ROBISON PA-C) Review of Systems Review of Systems Constitutional: Reports: diaphoresis, fever, malaise, weakness. EENTM: Reports: no symptoms. Respiratory: Reports: no symptoms. Cardiovascular: Reports: no symptoms. GI: Reports: no symptoms. Genitourinary: Reports: see HPI. Musculoskeletal: Reports: no symptoms. Skin: Reports: no symptoms. Neurological/Psychological: Reports: no symptoms. Hematologic/Endocrine: Reports: no symptoms. Immunologic/Allergic: Reports: no symptoms. All Other Systems: Reviewed and Negative (RICKI YOUNGER,ELIOT) Physical Exam Physical Exam General Appearance: well developed/nourished, alert, awake, lethargic, mild distress, obese Head: atraumatic, normal appearance Eyes: Bilateral: normal appearance, PERRL, EOMI. Ears, Nose, Throat: normal pharynx, normal ENT inspection, hearing grossly normal Neck: normal inspection, supple, full range of motion Respiratory: normal breath sounds, chest non-tender, no respiratory distress, lungs clear Cardiovascular: regular rate/rhythm, normal peripheral pulses Peripheral Pulses: 2+ radial (R), 2+ radial (L) Gastrointestinal: normal bowel sounds, soft, non-tender, no organomegaly Back: normal inspection, normal range of motion Extremities: PAIN WITH PALPATION IN THE RIGHT HIP. rANGE OF MOTION OF THE BILATERAL LOWER EXTREMITIES IS REDUCED DUE TO PAIN. THERE IS PITTING EDEMA PRESENT IN THE BILATERAL LOWER EXTREMITIES Neurologic/Psych: no motor/sensory deficits, awake, alert Skin: intact, warm/dry, pallor, THERE IS TENSE BULLA PRESENT IN THE RIGHT LOWER EXTREMITY. wEEPING IS PRESENT. sTASIS DERMATITIS IS PRESENT IN THE BILATERAL LOWER EXTREMITIES NO ERYTHEMA OR PURULENT DISCHARGE Lymphatic: no anterior cervical helena Core Measures ACS in differential dx? No CVA/TIA Diagnosis No Sepsis Present: Yes Sepsis Focused Exam Completed? Yes (ELIOT ROBISON PA-C) Progress Differential Diagnosis: SEPSIS, uti, PROSTATITIS, PYELONEPHRITIS, PNEUMONIA, CELLULITIS, chf, OSTEOARTHRITIS Plan of Care: Orders Procedure Date/time Status Heart Healthy Diet 07/09 B Active Pathway - chart 07/08 184 Active House Staff 07/08 1846 Active Patient Data 07/08 1846 Active Code Status 07/08 1846 Active LACTIC ACID 07/08 1736 Active Patient Data 07/08 1719 Active Admit to inpatient 07/08 1652 Active Vital Signs 07/08 1652 Active Code Status 07/08 1652 Complete CULTURE,URINE 07/08 1503 Active Straight Cath 07/08 1502 Active PARTIAL THROMBOPLASTIN TIME 07/08 1437 Complete PROTHROMBIN TIME 07/08 1437 Complete BLOOD CULTURE 07/08 143 Active URINALYSIS 07/08 143 Complete TROPONIN LEVEL 07/08 1436 Complete MAGNESIUM 07/08 1436 Complete LACTIC ACID 07/08 143 Complete COMPREHENSIVE METABOLIC PANEL 07/08 143 Complete CBC WITHOUT DIFFERENTIAL 07/08 143 Complete B-TYPE NATRIURETIC PEP (BNP) 07/08 143 Complete EKG 07/08 143 Active VTE Mechanical Prophylaxis 07/08 UNK Active Current Medications Sig/Buck Start time Last Medication Dose Stop Time Status Admin Enoxaparin Sodium 40 MG DAILY 07/08 184 UNVr (Lovenox) Laboratory Tests 07/08/17 1524: Anion Gap 17 H, Estimated GFR > 60, BUN/Creatinine Ratio 23.3, Glucose 199 H, Lactic Acid 3.6 H, Calcium 9.6, Magnesium 1.8, Total Bilirubin 1.4 H, AST 26, ALT 25, Alkaline Phosphatase 89, Troponin I 0.02, Fsm-K-Nnzfrhzhyvg Pept 1540 H , Total Protein 6.8, Albumin 3.9, Globulin 2.9, Albumin/Globulin Ratio 1.3, PT 14.8 H, INR 1.41 H, APTT 29, CBC w Diff NO MAN DIFF REQ, RBC 5.18, MCV 86.7, MCH 28.4, RDW 15.8 H, MPV 9.0, Gran % 81.8 H, Lymphocytes % 10.1 L, Monocytes % 8.0, Eosinophils % 0, Basophils % 0.1, Absolute Granulocytes 12.4 H, Absolute Lymphocytes 1.5, Absolute Monocytes 1.2 H, Absolute Eosinophils 0, Absolute Basophils 0, PUBS MCHC 32.8 L 07/08/17 1510: Urine Color YEL, Urine Clarity HAZY H, Urine pH 6.0, Ur Specific [place] >= 1.030, Urine Protein 100 H, Urine Ketones 15 H, Urine Nitrite POS H, Urine Bilirubin NEG, Urine Urobilinogen 0.2, Ur Leukocyte Esterase MOD H, Ur Microscopic SEDIMENT EXAMINED, Urine RBC 50-75 H, Urine WBC 25-50 H, Ur Epithelial Cells FEW, Urine Bacteria MANY H, Urine Hemoglobin LARGE H, Urine Glucose NEG 07/08/17 1449: Tvp-W-Vdiugukcnkw Pept Cancelled 07/08/17 1437: Magnesium Cancelled Microbiology 07/08 1510 URINE ROUT: Urine Culture - RECD 07/08 1500 BLOOD: Blood Culture - RECD 07/08 1436 BLOOD: Blood Culture - ORD Patient seen and evaluated. He is febrile to 101. He is likely septic. He is alert and oriented 3. We'll check basic blood work including blood cultures lactic acid. Chest x-ray patient will be straight cathed for his urine. Patient has a history of a complicated right hip fracture/infection. We'll check a CT scan of the abdomen and pelvis to evaluate the hip. Urine is showing signs of infection. Patient will be covered with ceftriaxone. He is still febrile. He'll be treated with 15 mg of IV Toradol. Patient be given additional fluids. CT scan does not show any acute abdomen allergies in the hip compared to previous. Patient will be admitted for IV antibiotics, IV antipyretics, infectious disease consult, monitoring of vital signs. Case discussed with Dr. Ceron he agrees Diagnostic Imaging: Viewed by Me: CT Scan. Discussed w/RAD: CT Scan. Radiology Impression: PATIENT: LUIS HENDERSON PRESENT AGE: 76 PATIENT ACCOUNT NO: [id number] : 40 LOCATION: [facility] ORDERING PHYSICIAN: ELIOT ROBISON PA-C SERVICE DATE: 07/08/17 EXAM TYPE: CAT - CT ABD & PELVIS W/O IV CONTRAS EXAMINATION: CT ABDOMEN AND PELVIS WITHOUT CONTRAST CLINICAL INFORMATION: Sepsis, right hip pain, history of stones. Evaluate for pyelonephritis, kidney stones, right hip fracture. COMPARISON: CT of the abdomen and pelvis 10/21/2014. X-ray of the pelvis on 04/27/2017 and right hip 2016 and 03/11/2017. TECHNIQUE: Multidetector volumetric imaging was performed from the superior aspect of the liver through the pubic symphysis. Sagittal and coronal reformatted images were obtained on the technologist's workstation. DLP: 1270.92 mGy-cm FINDINGS: LUNG BASES: The visualized lung bases are unremarkable. LIVER, GALLBLADDER, AND BILIARY TREE: The liver is normal in size, shape, and attenuation. No focal hepatic lesion or biliary ductal dilatation is present. The gallbladder is unremarkable with no evidence of radiopaque gallstones, gallbladder wall thickening, or obvious pericholecystic inflammatory changes. PANCREAS: Unremarkable SPLEEN: Unremarkable ADRENAL GLANDS: Unremarkable KIDNEYS AND URETERS: Multiple bilateral renal cysts and renal calculi are again noted. There are calcifications in the left renal pelvis but no evidence of obstruction. There is no hydronephrosis in the right kidney. There are no apparent ureteral calculi. BLADDER: Unremarkable GASTROINTESTINAL TRACT: There are numerous colonic diverticula without evidence of diverticulitis. The appendix appears normal. The small bowel is unremarkable. ABDOMINAL WALL: No significant hernia is appreciated. LYMPH NODES: Normal VASCULAR: Atherosclerotic calcifications of the abdominal aorta and iliac arteries are unchanged. No aneurysm is seen. PELVIC VISCERA: There has been interval enlargement of the prostate gland, now measuring 7.7 cm transverse and 5.3 cm AP. OSSEOUS STRUCTURES: There is artifact from a right hip prosthesis. The prosthesis appears to be well seated in near-anatomic alignment. There is a probable antibiotic-impregnated femoral head prosthetic device. There is severe narrowing of the superior weightbearing right hip joint. There are stable mild degenerative changes of the left hip and moderate multilevel degenerative disc disease. IMPRESSION: 1. Bilateral nephrolithiasis with no evidence of obstruction. 2. Colonic diverticulosis without evidence of diverticulitis. 3. Interval enlargement of the prostate gland. 4. Right hip prosthesis which appears to include an antibiotic-impregnated femoral head prosthetic device. DICTATED BY: SHOBHA ROTHMAN MD DATE/TIME DICTATED:07/08/171601 SONG WRITER:AMEE DATE/TIME TRANSCRIBED:07/08/171601, PATIENT: LUIS HENDERSON PRESENT AGE: 76 PATIENT ACCOUNT NO: [id number] : 40 LOCATION: [facility] ORDERING PHYSICIAN: ELIOT ROBISON PA-C SERVICE DATE: 07/08/17 EXAM TYPE: RAD - XRY-PORTABLE CHEST XRAY EXAMINATION: XR PORTABLE CHEST CLINICAL INFORMATION: Fever, weakness COMPARISON: None TECHNIQUE: Portable frontal view of the chest was obtained. FINDINGS: No acute process. Pacer wires appear unchanged in position. There is no failure or infiltrate. No effusion on this portable study. IMPRESSION: Negative acute portable chest. DICTATED BY: KATTY PERKINS MD DATE/TIME DICTATED:07/08/171710 SONG WRITER:AMEE DATE/TIME TRANSCRIBED:07/08/171710 Initial ED EKG: ATRIAL-BASED COMPLEXES, NONSPECIFIC INTERVENTRICULAR CONDUCTION DELAY, BORDERLINE INFERIOR q WAVES, CONSIDER ANTERIOR INFARCT, MINIMAL st DEPRESSION ANTERIOR LATERAL LEADS (ELIOT ROBISON PA-C) Departure Departure Disposition: STILL A PATIENT Condition: Stable Clinical Impression Primary Impression: Sepsis Qualifiers: Sepsis type: sepsis due to unspecified organism Qualified Code: A41.9 - Sepsis, unspecified organism Secondary Impressions: Unable to ambulate, Weakness Referrals: ISIDORO RODRÍGUEZ,JUAN Cornejo (PCP/Family) Departure Forms: Customer Survey General Discharge Information Admission Note Spoke With: JOURDAN SARAH MD Documentation of Exam: Documentation of any treatments & extenuating circumstances including Concerns Regarding Discharge (functional status, medication knowledge or non-compliance, living conditions, etc.) that warrant an admission rather than observation: [ Patient has urosepsis. He'll require IV fluids, IV antibiotics, IV antipyretics , monitoring of vital signs, infectious disease consult, follow-up cultures] (ELIOT ROBISON PA-C) PA/STEAM CLEAN MACHINE OPERATOR Co-Sign Statement Statement: ED Attending supervision documentation- [x] I saw and evaluated the patient. I have also reviewed all the pertinent lab results and diagnostic results. I agree with the findings and the plan of care as documented in the PA's/STEAM CLEAN MACHINE OPERATOR's documentation. [] I have reviewed the ED Record and agree with the PA's/STEAM CLEAN MACHINE OPERATOR's documentation. [] Additions or exceptions (if any) to the PAs/STEAM CLEAN MACHINE OPERATOR's note and plan are summarized below: [] 76-year-old man seen and evaluated by me. He's has altered mental status fever, tachypnea; he appears septic. Labs are pending, IV antibiotics given, and blood cultures were obtained. (KATTY CERON DO)
[2017-07-08 15:44] LABS: ABSOLUTE BASOPHIL COUNT 0 /CUMM (0.0-0.2); ABSOLUTE EOSINOPHIL COUNT 0 /CUMM (0.0-0.7); ABSOLUTE GRANULOCYTE CT 12.4 /CUMM (1.4-6.5); ABSOLUTE LYMPH COUNT 1.5 /CUMM (1.2-3.4); ABSOLUTE MONOCYTE COUNT 1.2 /CUMM (0.10-0.60); BASOPHIL % 0.1 % (0.0-2.0); EOSINOPHIL % 0 % (0-5); GRANULOCYTE % 81.8 % (42.2-75.2); HEMATOCRIT 44.9 % (42-52); MEAN CORPUSCULAR HGB 28.4 PG (27.0-31.0); MEAN CORPUSCULAR HGB CONC 32.8 G/DL (33.0-37.0); MEAN CORPUSCULAR VOLUME 86.7 FL (80.0-94.0); PLATELET COUNT 137 /CUMM (130-400); RBC DISTRIBUTION WIDTH 15.8 % (11.5-14.5); RED BLOOD CELL CT 5.18 /CUMM (4.70-6.10); WHITE BLOOD CELL COUNT 15.2 /CUMM (4.8-10.8)
[2017-07-08 15:47] LABS: PT 14.8 SEC (9.4-12.5); PTT 29 SEC (25-37)
[2017-07-08] MEDS ORDERED: ASPIRIN EC81 M1 PO (15:55)
--- NOTE | 2017-07-08 16:42 | CT SCAN REPORT ---
EXAMINATION: CT ABDOMEN AND PELVIS WITHOUT CONTRAST CLINICAL INFORMATION: Sepsis, right hip pain, history of stones. Evaluate for pyelonephritis, kidney stones, right hip fracture. COMPARISON: CT of the abdomen and pelvis 10/21/2014. X-ray of the pelvis on 04/27/2017 and right hip 03/15/2017 and 03/11/2017. TECHNIQUE: Multidetector volumetric imaging was performed from the superior aspect of the liver through the pubic symphysis. Sagittal and coronal reformatted images were obtained on the technologist's workstation. DLP: 1270.92 mGy-cm FINDINGS: LUNG BASES: The visualized lung bases are unremarkable. LIVER, GALLBLADDER, AND BILIARY TREE: The liver is normal in size, shape, and attenuation. No focal hepatic lesion or biliary ductal dilatation is present. The gallbladder is unremarkable with no evidence of radiopaque gallstones, gallbladder wall thickening, or obvious pericholecystic inflammatory changes. PANCREAS: Unremarkable SPLEEN: Unremarkable ADRENAL GLANDS: Unremarkable KIDNEYS AND URETERS: Multiple bilateral renal cysts and renal calculi are again noted. There are calcifications in the left renal pelvis but no evidence of obstruction. There is no hydronephrosis in the right kidney. There are no apparent ureteral calculi. BLADDER: Unremarkable GASTROINTESTINAL TRACT: There are numerous colonic diverticula without evidence of diverticulitis. The appendix appears normal. The small bowel is unremarkable. ABDOMINAL WALL: No significant hernia is appreciated. LYMPH NODES: Normal VASCULAR: Atherosclerotic calcifications of the abdominal aorta and iliac arteries are unchanged. No aneurysm is seen. PELVIC VISCERA: There has been interval enlargement of the prostate gland, now measuring 7.7 cm transverse and 5.3 cm AP. OSSEOUS STRUCTURES: There is artifact from a right hip prosthesis. The prosthesis appears to be well seated in near-anatomic alignment. There is a probable antibiotic-impregnated femoral head prosthetic device. There is severe narrowing of the superior weightbearing right hip joint. There are stable mild degenerative changes of the left hip and moderate multilevel degenerative disc disease. IMPRESSION: 1. Bilateral nephrolithiasis with no evidence of obstruction. 2. Colonic diverticulosis without evidence of diverticulitis. 3. Interval enlargement of the prostate gland. 4. Right hip prosthesis which appears to include an antibiotic-impregnated femoral head prosthetic device.
--- NOTE | 2017-07-08 17:15 | RADIOLOGY REPORT ---
EXAMINATION: XR PORTABLE CHEST CLINICAL INFORMATION: Fever, weakness COMPARISON: None TECHNIQUE: Portable frontal view of the chest was obtained. FINDINGS: No acute process. Pacer wires appear unchanged in position. There is no failure or infiltrate. No effusion on this portable study. IMPRESSION: Negative acute portable chest.
--- NOTE | 2017-07-08 17:22 | History & Physical ---
Waqar Harris 07/08/17 1721: General Information and HPI MD Statement: I have seen and personally examined LUIS HENDERSON and documented this H&P. The patient is a 76 year old M who presented with a patient stated chief complaint of [generalized weakness, difficult to walking, recent diagnosis of UTI, lower abdominal pain]. Source of Information: patient, family, old records Exam Limitations: no limitations History of Present Illness: Mr Henderson is a 76 year old gentleman with a PMH of HFrEF 25-30% on echocardiogram 03/14/2017 (followed by Dr. Sanchez), PPM, CAD s/p CABG in 2003, COPD, HLD, diabetes, BPH, LIAM, previous right total hip arthroplasty (2014) at [facility], history of LE cellulitis, septic joint of the right hip with cultures positive for enterococcus for which he underwent IV antibiotics and cement spacer implantation, discharged to [facility] with a 6 week course of ampicillin and recent removal of the hip prosthesis and antibiotic spacer on 04/27/2017. Since then he was discharged back to this facility and completed a four-week course of Unasyn 3 g Q6, subsequently watched off antibiotics for 2 weeks with tentative plan for repeat prosthesis implantation on 07/27/2017. He has been home for the past 2 weeks and related with the aid of a rolling walker with no specific complaints. This past Tuesday he followed up for risk stratification with his flour distributor which point blood work yielded a UTI, nitrofurantoin was called in which she started taking on . This morning he woke up feeling weak, was noted to be unable to sit up/walk on his own at which point his nephew called EMS to bring him to the ED for further evaluation. Newly noticeable blister in the LE over the past 2 days per his nephew. He denies any episodes of dizziness, chest pain, palpitations, shortness of breath, N/V/D, burning with urination, constipation since discharge from [facility]. Records from EMS indicate that he was slightly forgetful, malodorous with sent urine. In the ED straight cath revealed 450 mL dark colored urine and was started on ceftriaxone. Since arriving on the ED he complains of worsening lower abdominal pain, nausea which he feels is due to the antibiotic. VS on admission: BP 128/60, HR 76, RR 22, SPO2 91% on RA, T101.9 Allergies/Medications Allergies: Coded Allergies: NO KNOWN ALLERGIES (03/22/12) NKA PER DIPYRIDAMOLE ORDER SHEET - [facility] Home Med list Aspirin (Ecotrin*) 81 MG TABLET.DR 1 TAB PO DAILY HEART/BLOOD (Reported) Carvedilol 6.25 MG TABLET 1 TAB PO BID HEART (Reported) Dofetilide 500 MCG CAPSULE 1 CAP PO BID HEART (Reported) Fluticasone-Salmeterol (Advair 100-50 Diskus) 100 MCG-50 MCG/DOSE BLST.W.DEV 1 PUF INH BID COPD (Reported) Liraglutide (Victoza 3-Myles) 0.6 MG/0.1 ML (18 MG/3 ML) PEN.INJCTR 1.2 MG SC QAM DIABETES (Reported) Lisinopril (Prinivil) 5 MG TABLET 1 TAB PO QHS HEART/BP (Reported) Magnesium Gluconate (Mag-G) 27 MG (500 MG) TABLET 1 TAB PO Tuesday SUPPLEMENT (Reported) Metformin HCl 500 MG TABLET 1 TAB PO BID DIABETES (Reported) Austin-3/Dha/Epa/Fish Oil (Fish Oil 500 MG Softgel) 60 MG-90 MG-500 MG CAPSULE 1 CAP PO QPM SUPPLEMENT (Reported) Simvastatin (Zocor*) 10 MG TABLET 1 TAB PO QHS CHOLESTEROL (Reported) Tamsulosin HCl (Flomax) 0.4 MG CAP.ER.24H 1 CAP PO DAILY PROSTATE (Reported) Vitamin E Acetate (Vitamin E) 400 UNIT CAPSULE 1 CAP PO BID SUPPLEMENT ( Reported) Past History Travel History Traveled to [place] past 21 day No Medical History Neurological: NONE EENT: hearing loss Cardiovascular: AFIB, CAD, hypertension, myocardial infarction, RCW AICD S/P CABG 2003 Respiratory: bronchitis, SLEEP APNEA Gastrointestinal: NONE Hepatic: NONE Renal: NONE Musculoskeletal: falls Psychiatric: NONE Endocrine: DIABETES TYPE 2 Blood Disorders: NONE Cancer(s): NONE PHILOSOPHY SPECIALIST/Reproductive: NONE History of MRSA: No History of VRE: No History of CDIFF: No Surgical History Surgical History: CABG, hip replacement (right), s/p lithotripsy Past Family/Social History Family History Relations & Conditions if any MOTHER, , Age 60+; Cause: Heart disease. FH: heart disease BROTHER FH: lung cancer FATHER FH: prostate cancer Psychosocial History Who Do You Live With? with nephew Services at Home: None Primary Language: Wallisian Functional Ability ADLs Independent: eating. Needs Assist: dressing, toileting, bathing. Ambulation: walker IADLs Needs Assist: shopping, housework, finances, food prep, telephone, transportation, medication admin. Review of Systems Review of Systems Constitutional: Reports: see HPI. EENTM: Reports: no symptoms. Cardiovascular: Reports: no symptoms. Respiratory: Reports: no symptoms. GI: Reports: see HPI. Genitourinary: Reports: see HPI. Musculoskeletal: Reports: see HPI. Skin: Reports: see HPI. Neurological/Psychological: Reports: see HPI. Exam & Diagnostic Data Last 24 Hrs of Vital Signs/I&O Vital Signs Date Time Temp Pulse Resp B/P B/P Pulse O2 O2 Flow FiO2 Mean Ox Delivery Rate 07/08 1844 Room Air 07/08 1742 99.2 54 16 125/62 92 Room Air 07/08 1558 101.9 72 16 124/63 93 Room Air 07/08 1523 101.9 07/08 1432 101.9 76 22 128/60 91 Room Air Intake & Output 07/08 1600 07/08 0800 07/08 0000 Intake Total Output Total Balance Patient 157 lb Weight Weight Reported by Patient Measurement Method Physical Exam General Appearance Patient appears to be in moderate distress due to lower abdominal discomfort. He is a diaphoretic and clammy Skin There is a large 5cm diameter blister on the anterior aspect of the right mercado Skin Temp/Moisture Exam: Hot/Diaphoretic Sepsis Skin Exam (color): Normal for Ethnicity HEENT EOMI, Mucous Membr. moist/pink Neck No LAD Cardiovascular Regular Rate, Normal S1, Normal S2 Lungs Normal Air Movement, Diminished breath sounds in the basilar regions bilaterally Abdomen Normal Bowel Sounds, Soft, Tenderness elicited on palpation of the suprapubic region. No tenderness noted on palpation around the other quadrants Neurological Normal Speech, Normal Tone, Sensation Intact Extremities Normal Pulses, 2+ pitting edema BL LE up towards the calves Vascular Pulses Symmetrical Sepsis Peripheral Pulse Location: Dorsalis Pedis Sepsis Peripheral Pulse Exam: Normal Sepsis Cap Refill Exam: <2 Sec Last 24 Hrs of Labs/Les: Laboratory Tests 07/08/17 1524: Anion Gap 17 H, Estimated GFR > 60, BUN/Creatinine Ratio 23.3, Glucose 199 H, Lactic Acid 3.6 H, Calcium 9.6, Magnesium 1.8, Total Bilirubin 1.4 H, AST 26, ALT 25, Alkaline Phosphatase 89, Troponin I 0.02, Ros-J-Tvlemhyorfx Pept 1540 H , Total Protein 6.8, Albumin 3.9, Globulin 2.9, Albumin/Globulin Ratio 1.3, PT 14.8 H, INR 1.41 H, APTT 29, CBC w Diff NO MAN DIFF REQ, RBC 5.18, MCV 86.7, MCH 28.4, RDW 15.8 H, MPV 9.0, Gran % 81.8 H, Lymphocytes % 10.1 L, Monocytes % 8.0, Eosinophils % 0, Basophils % 0.1, Absolute Granulocytes 12.4 H, Absolute Lymphocytes 1.5, Absolute Monocytes 1.2 H, Absolute Eosinophils 0, Absolute Basophils 0, PUBS MCHC 32.8 L 07/08/17 1510: Urine Color YEL, Urine Clarity HAZY H, Urine pH 6.0, Ur Specific [place] >= 1.030, Urine Protein 100 H, Urine Ketones 15 H, Urine Nitrite POS H, Urine Bilirubin NEG, Urine Urobilinogen 0.2, Ur Leukocyte Esterase MOD H, Ur Microscopic SEDIMENT EXAMINED, Urine RBC 50-75 H, Urine WBC 25-50 H, Ur Epithelial Cells FEW, Urine Bacteria MANY H, Urine Hemoglobin LARGE H, Urine Glucose NEG 07/08/17 1449: Qlm-L-Zrdpowoibsk Pept Cancelled 07/08/17 1437: Magnesium Cancelled Microbiology 07/08 1510 URINE ROUT: Urine Culture - RECD 07/08 1500 BLOOD: Blood Culture - RECD 07/08 1436 BLOOD: Blood Culture - ORD Diagnostic Data EKG Results Atrial paced complexes, nonspecific intraventricular conduction delay. Chart 69 BPM. Borderline inferior Q waves. LA interval 168. QTC 510 CXR Results Negative acute portable chest. Other Results CT abdomen and pelvis: Bilateral nephrolithiasis with no evidence of obstruction. Colonic diverticulosis without evidence of diverticulitis. Internal enlargement of the prostate gland. Right hip prosthesis which appears to include an antibiotic impregnated femoral head prostatic device Assessment/Plan Assessment: 76 year old gentleman with a PMH of HFrEF 25-30% on echocardiogram 03/14/2017 ( followed by Dr. Sanchez), PPM, CAD s/p CABG in 2003, COPD, HLD, diabetes, BPH, LIAM, history of LE cellulitis, previous right total hip arthroplasty (2014) at [facility], septic joint of the right hip with cultures positive for enterococcus for which he underwent IV antibiotics and cement spacer implantation, discharged to [facility] with a 6 week course of ampicillin and recent removal of the hip prosthesis and antibiotic spacer on 04/27/2017. This was then followed by a 4 week course of Unasyn 3 g IV Q6, watched off antibiotics for the last 2 weeks with tentative plan for repeat prosthesis implantation on 2016. During follow-up visits to his flour distributor for restrictive medication on Tuesday bloodwork showed UTI for which she was started on nitrofurantoin on , woke up this morning with noticeable weakness, lethargy, inability to walk. On arrival in the ED patient was noted to be malodorous with the smell of urine and slightly forgetful. Straight cath yielded 450 mL of dark-colored urine, complained of lower abdominal pain around the suprapubic region that he feels is due to the antibiotics he received, pressure in sensation, intermittent relief with bladder drainage. Reported his last BM a few days ago. VS on admission: BP 128/60, HR 76, RR 22, SPO2 91% on RA, T 101.9 Pertinent labs and admission: WBC 15.2 with 81.8% granulocytes, lactic acid 3.6, anion gap 17, H&H 14.7/44.9, total bilirubin 1.4, proBNP 1540, INR 1.41, BUN/Cr CR 21/0.9 Patient received 2 LNC fluid resuscitation in the ED, ceftriaxone 1 g. Problem list: 1. UTI 3. Anion gap lactic acidosis 3. SIRS criteria: RR 22, T101.9, WBC 15.2 4. Hx of HFrEF 25-30% on echocardiogram 03/14/2017 5. Lower extremity blistering 6. History of CAD s/p CABG 7. BPH 8. Diabetes 9. History of COPD 10. History of LIAM PLAN: * Admit to general medicine for management of UTI with SIRS criteria * With his history of enterococcus sensitive to ampicillin, Unasyn for 4 weeks with noticeable improvement, will start him on Unasyn 3 g IV Q6 * Follow-up blood and urine cultures in the a.m. and adjust coverage accordingly * If continues to spike fever, would consider expanding coverage with vancomycin * Infectious disease consult in the a.m * No complaints of vomiting or report/evidence of constipation on CAT scan. However, will start on bowel regimen with MiraLAX, Dulcolax, and monitor for bowel movement * Orthopedic consult on recommendations the setting of tentative plan for joint implant * If positive bacteremia, cardiology consult and discussion on transesophageal echocardiogram to assess for possibility of underlying endocarditis * Gentle hydration with normal saline in the setting of low EF * Follow-up lactic acid Q3hrs and adjust fluid hydration rate based on lactic levels/urine output/respiratory status * Diabetic diet, low dose insulin sliding scale * Restart lisinopril in the a.m. if blood pressure is stable * BladderScan every [address] Duvall if evidence of urinary retention * TRCs, neb therapy PRN * DVT prophylaxis Lovenox 40 mg subcutaneous daily * FC As Ranked By This Provider Problem List: 1. Sepsis due to urinary tract infection 2. Lactic acidosis 3. HFrEF (heart failure with reduced ejection fraction) Core Measures/Misc (05/22) Acute Coronary Syndrome ACS Diagnosis: No Congestive Heart Failure Congestive Heart Failure Diagnosis No Cerebrovascular Accident CVA/TIA Diagnosis: No VTE (View Protocol) VTE Risk Factors Acute Medical Illness No Mechanical VTE Prophylaxis d/t Physical Contraindication No VTE Pharm Prophylaxis d/t NA PharmProphylax ordered Sepsis (View protocol) Sepsis Present: Yes Resident Review Statement Resident Statement: examined this patient, discussed with property management intern, agreed with property management intern, discussed with family, reviewed EMR data (avail), discussed with nursing , reviewed images Hanh Loyd 07/09/17 0145: Attending MD Review Statement Attending Statement Attending MD Statement: examined this patient, discuss w/resident/PA/TALCER, agreed w/resident/PA/TALCER, reviewed EMR data (avail), reviewed images, amended to note Attending Assessment/Plan: CC: Lethargy confusion PMH: DM, CAD S/P CABG,HFrEF, and AICD, BPH, COPD, LIAM Patient was brought in ER through EMS for generalized weakness. According to him patient did not want to come to hospital but his nephew forced him to come. According to family patient appeared very confused, lethargic, complaining of generalized weakness. Patient is unable to move much because of his right hip surgery and antibiotic spacer implant in right hip, arrived in ER unkempt. Patient stated that that he was recently seen by a physician and was found to have urinary tract infection and was started on antibiotics and since last 3 days. Currently patient complains of lower abdominal pain. Patient had extensive hospitalization recently, underwent joint aspiration on March 19, after that he was treated for 6 weeks of IV antibiotics for prosthetic infection, followed by 8 patient was readmitted in hospital on April 27, underwent right hip prosthesis removal and antibiotic spacer implant, was discharged to rehabilitation for 6 weeks of antibiotics. He was discharged home from rehabilitation center 2 weeks back, expecting a visit to orthopedic surgeon on July 15, expecting surgery around July 27. Patient is extremely worried about getting any new of infection and wants to fix his hip. Other than generalized lethargically and lower abdominal pain patient denied any fever, chills, cough, expectoration, nausea, vomiting. He did not have bowel movement since last few days and passing gas only. No flulike symptoms. Vitals: Tmax 101.9, pulse 70s, RR 22, blood pressure 128/60, saturating well on room air. On exam: A O 3, cooperative, obese, no acute distress, neck supple, JVD normal, no lymphadenopathy, mucosa dry, no focal neurological deficit, bilateral lower extremity pitting edema with superficial vesicles, with serious discharge, no evidence of infection, fungal infection in the inguinal folds CVS: S1-S2, RRR. RS: Clear to auscultate bilaterally. Abdomen: Soft, tender all over more in suprapubic area, no guarding or rigidity, obese, bowel sounds present. Labs: WBC 15.2, neutrophils 81%, hemoglobin 14.7, hematocrit 44.9, platelet 137, sodium 140, potassium 4.1, chloride 104, bicarbonate 19, anion gap 17, BUN 21, creatinine 0.9, glucose 199, calcium 9.6, lactic acid 3.6, bilirubin 1.4, AST 26 , ALT 25, alkaline phosphatase 89, troponin 0.02, BNP 1540, INR 1.41 UA positive for nitrites, ketones, leukocyte esterase trace, large hemoglobin CXR: Negative acute portable chest. CT abdomen pelvis without IV contrast: 1. Bilateral nephrolithiasis with no evidence of obstruction. 2. Colonic diverticulosis without evidence of diverticulitis. 3. Interval enlargement of the prostate gland. 4. Right hip prosthesis which appears to include an antibiotic-impregnated femoral head prosthetic device. Assessment and plan 76-year-old male with past medical history significant for DM, CAD S/P CABG, HFrEF, and AICD, BPH, COPD, LIAM with recent complication of prosthetic joint with infection on the right side, : Patient had extensive hospitalization recently, underwent joint aspiration on March 19, after that he was treated for 6 weeks of IV antibiotics for prosthetic infection, followed by 8 patient was readmitted in hospital on April 27, underwent right hip prosthesis removal and antibiotic spacer implant, was discharged to rehabilitation for 6 weeks of antibiotics. He was discharged home from rehabilitation center 2 weeks back. Patient was apparently all right for last 2 weeks but then lasted 3-4 days was noticed to have generalized lethargically, weakness, followed up with physician outpatient, was found to have UTI, was started on nitrofurantoin. Today patient was more confused, did not move from his chair for a few days so his nephew suggested him to go to hospital, he was brought in by EMS very unkempt. He was febrile 101.9, mucosa dry, complaining of diffuse abdominal pain more so in suprapubic region, bilateral lower extremity edema with superficial vesicles no evidence of infection. Patient was found to have leukocytosis and evidence of UTI on UA, patient had urinary retention secondary to BPH and was treated With a straight cath. Given his leukocytosis and fever, there is probability that he may have bacteremia. In the context of recent complicated right hip infection, it would be apt to aggressively treat with IV antibiotics for his UTI, awaiting cultures. Reviewed his previous cultures, and he had enterococcus from the aspirate from right hip. He had been in health care contact since last few months, probability of resistant infections would be high. But no other sources of infection identified to suspect MRSA or pseudomonas, no evidence of C. difficile. In fact patient is constipated. We will inform orthopedic and await ID opinion. Patient received 2 L normal saline bolus in ER, given his history of heart failure we will continue on gentle hydration for now + Sepsis secondary to UTI: It could be called severe only for lactic acidosis but otherwise unremarkable + Bilaterally lower extremity edema with superficial vesicles + History of right hip prostatic infection S/P removal currently on antibiotics spacer implant, right hip wound is healed noninfected + Constipation + History of DM, CAD S/P CABG,HFrEF, and AICD, BPH, COPD, LIAM - Admit to general medicine - Continue gentle hydration for 1 more liter normal saline at 75 mL per hour, watch for volume overload - Blood culture, urine culture - Continue IV Unasyn - Flu test - Trend lactate - Serial troponin and EKGs - Inform orthopedic but patient being in hospital - Consult ID - Sliding scale insulin - Adequate pain control - Bowel regimen - Wound care consult - Lotrimin or nystatin for inguinal folds - Continue Duvall catheter for urinary retention - Continue rest of his medications
[2017-07-08 20:35] VITALS: BP 140/80
--- NOTE | 2017-07-09 01:48 | Admission Certification ---
Admission Certification Certification Statement - As attending physician, I certify that at the time of - admission, based on clinical presentation, severity of - symptoms, need for further diagnostic testing and - therapeutic interventions, and risk of adverse outcomes - without in-hospital treatment, in my clinical assessment, - this patient requires an acute hospital stay for a minimum - of two nights or longer. I have also considered psychsocial - factors such as support system, advanced age, financial - issues, cognitive issues, and failed out-patient treatments, - past re-admission history, safety of patient, and lack of - compliance as applicable. Specific rationale supporting this admission is: sepsis secondary to UTI
[2017-07-09 07:23] VITALS: BP 150/80
--- NOTE | 2017-07-09 08:40 | RADIOLOGY REPORT ---
EXAMINATION: XR PORTABLE CHEST CLINICAL INFORMATION: Pulmonary congestion COMPARISON: July 08, 2017 and studies dating back to March 11, 2017 TECHNIQUE: Portable AP view of the chest was obtained. FINDINGS: There is no evidence of acute parenchymal disease, pneumothorax, or pleural effusion. The cardiopericardial silhouette is enlarged. There is no evidence of pulmonary edema. Dual-chamber pacemaker/defibrillator in place. IMPRESSION: No acute parenchymal disease.
--- NOTE | 2017-07-09 09:02 | PN- Att Addend ---
Attending Addendum Attending Brief Note Patient seen and examined. His MAXIMUM TEMPERATURE was 101 yesterday now he is 98.6, blood pressures 150/80, pulse of 74 breathing at 18-22. On exam lungs have decreased breath sounds bilaterally, heart is S1-S2 regular, abdomen is soft and he has bilateral lower extremity edema with some weeping. He is a 76-year-old male with past medical history of diabetes, coronary artery disease on dofetilide with an AICD and COPD who had a complicated hospital course in April diagnosed with a right hip prosthetic infection. Finished his course of antibiotics discharged from rehabilitation approximately 2 weeks ago and diagnosed with a UTI as an outpatient, failed Macrobid. Here with presumed sepsis of urological origin with a fever the white count and the positive UA. Given the history of enterococcus in the past we have him on Unasyn but will call ID given his complicated history and the possibility of seeding this right hip prosthesis. We'll closely trend the lactate the white count and follow-up.
[2017-07-09 09:12] LABS: ABSOLUTE BASOPHIL COUNT 0 /CUMM (0.0-0.2); ABSOLUTE EOSINOPHIL COUNT 0 /CUMM (0.0-0.7); ABSOLUTE GRANULOCYTE CT 9.5 /CUMM (1.4-6.5); ABSOLUTE LYMPH COUNT 3.7 /CUMM (1.2-3.4); ABSOLUTE MONOCYTE COUNT 0.8 /CUMM (0.10-0.60); BASOPHIL % 0.2 % (0.0-2.0); EOSINOPHIL % 0 % (0-5); GRANULOCYTE % 67.9 % (42.2-75.2); MEAN CORPUSCULAR HGB CONC 32.9 G/DL (33.0-37.0); PLATELET COUNT 178 /CUMM (130-400); RED BLOOD CELL CT 5.55 /CUMM (4.70-6.10)
[2017-07-09 09:30] VITALS: BP 132/70
[2017-07-09 09:41] LABS: HEMATOCRIT 48.9 % (42-52)
--- NOTE | 2017-07-09 10:04 | PN- Housestaff ---
See Addendum Subjective Follow-up For: UTI urinary retention Subjective: Current complaining of abdominal pain and constipation. States that the abdominal pain is severe and worsens anytime with movement. Patient was found to have fungal infection underneath the fold of his stomach imelda, which is where is pain is located. Patient also feels short of breath due to the pain. Also reports constipation with last bowel movement on July 04. Review of Systems Constitutional: Reports: see HPI. Respiratory: Reports: short of breath. Gastrointestinal: Reports: see HPI (constipation), distention. Objective Last 24 Hrs of Vital Signs/I&O Vital Signs Date Time Temp Pulse Resp B/P B/P Pulse O2 O2 Flow FiO2 Mean Ox Delivery Rate 07/09 07 98.6 74 24 150/80 95 Room Air 07/09 0550 89 92 07/09 0336 70 92 07/09 0036 70 94 07/08 2123 Room Air 07/08 2035 98.4 74 20 140/80 95 Room Air 07/08 1910 96.4 69 18 132/62 93 Room Air 07/08 1844 Room Air 07/08 1742 99.2 54 16 125/62 92 Room Air 07/08 1558 101.9 72 16 124/63 93 Room Air 07/08 1523 101.9 07/08 1432 101.9 76 22 128/60 91 Room Air Intake & Output 07/09 1600 07/09 0800 07/09 0000 Intake Total 1200 1560 Output Total 650 950 Balance 550 610 Intake, IV 1200 1510 Intake, Oral 50 Output, Urine 650 950 Patient 257 lb Weight Weight Reported by Patient Measurement Method Physical Exam General Appearance: Alert, Oriented X3, Cooperative, Moderate Distress HEENT: PERRLA, EOMI Cardiovascular: Normal S1, Normal S2, slight tachycardia Lungs: Clear to Auscultation, Normal Air Movement Abdomen: distended hard rigid abdomen. No tenderness to palpation. No organomegaly noted. decreased bowel sounds. Extremities: multiple open blisters on lower extremities. 2+ pitting edema bilaterally of lower extremities Vascular: unable to palpate pedal pulses however cap Refill less than 2 seconds Current Medications: Current Medications Sig/Buck Start time Last Medication Dose Route Stop Time Status Admin Acetaminophen 650 MG Q6P PRN 07/08 1900 AC PO Acetaminophen 1,000 MG ONCE ONE 07/08 1500 DC 07/08 N/A 1 UNIT IV 07/08 1514 1523 Acetaminophen 0 .STK-MED ONE 07/08 1453 DC IV Ampicillin Sodium/ 3,000 MG Q6 07/08 1945 AC 07/09 Sulbactam Sodium IV 0521 Sodium Chloride 100 ML Aspirin Buffered 81 MG DAILY 07/09 1000 AC PO Atorvastatin Calcium 10 MG 1700 07/09 1700 AC PO Bisacodyl 10 MG ONCE ONE 07/09 0900 DC NH 07/09 0901 Bisacodyl 10 MG ONCE ONE 07/08 2030 DC NH 07/08 2031 Budesonide/ 2 PUF BID 07/08 2200 AC 07/08 Formoterol Fumarate INH 2234 Carvedilol 6.25 MG BID 07/08 220 CAN PO Ceftriaxone Sodium 0 .STK-MED ONE 07/08 1633 DC .ROUTE Ceftriaxone Sodium 1,000 MG ONCE ONE 07/08 1600 DC 07/08 IV 07/08 1601 1630 Dofetilide 500 MCG BID 07/08 2200 AC 07/08 PO 2233 Enoxaparin Sodium 40 MG DAILY 07/08 1846 AC 07/08 SC 2234 Insulin Aspart 0 TIDAC 07/09 0800 AC SC Ketorolac 0 .STK-MED ONE 07/08 1801 DC Tromethamine .ROUTE Ketorolac 15 MG ONCE ONE 07/08 1715 DC 07/08 Tromethamine IV 07/08 1716 1842 Morphine Sulfate 0 .STK-MED ONE 07/08 1929 DC .ROUTE Morphine Sulfate 2 MG Q4P PRN 07/08 1900 AC 07/09 IV 0100 Nystatin 1 GENE TID 07/09 0015 AC TOP Oxycodone/ 1 TAB Q6P PRN 07/08 1900 AC Acetaminophen PO Polyethylene Glycol 17 GM ONCE ONE 07/09 0645 DC 07/09 PO 07/09 0646 0645 Polyethylene Glycol 17 GM DAILY 07/08 2030 AC PO Senna 187 MG AT BEDTIME 07/08 2200 AC 07/08 PO 2231 Sodium Chloride 1,000 ML BOLUS ONE 07/09 0145 DC 07/09 IV 07/09 0344 0144 Sodium Chloride 1,000 ML BOLUS ONE 07/08 1615 DC 07/08 IV 07/08 1714 1733 Sodium Chloride 1,000 ML BOLUS ONE 07/08 1500 DC 07/08 IV 07/08 1559 1523 Last 24 Hrs of Lab/Les Results Last 24 Hrs of Labs/Mics: Laboratory Tests 07/09/17 0733: Lactic Acid Pending 07/09/17 0733: Sodium Pending, Potassium Pending, Chloride Pending, Carbon Dioxide Pending, Anion Gap Pending, BUN Pending, Creatinine Pending, BUN/Creatinine Ratio Pending , CBC w Diff Pending, WBC Pending, RBC Pending, Hgb Pending, Hct Pending, MCV Pending, MCH Pending, RDW Pending, Plt Count Pending, MPV Pending, PUBS MCHC Pending 07/09/17 0515: Lactic Acid 3.4 H 07/09/17 0045: Troponin I < 0.01 07/09/17 0045: Lactic Acid 3.8 H 07/08/17 1736: Lactic Acid Cancelled 07/08/17 1524: Anion Gap 17 H, Estimated GFR > 60, BUN/Creatinine Ratio 23.3, Glucose 199 H, Lactic Acid 3.6 H, Calcium 9.6, Magnesium 1.8, Total Bilirubin 1.4 H, Direct Bilirubin 0.7 H, AST 26, ALT 25, Alkaline Phosphatase 89, Creatine Kinase 103, Troponin I 0.02, Zoy-F-Dvrofmxekgk Pept 1540 H, Total Protein 6.8, Albumin 3.9, Globulin 2.9, Albumin/Globulin Ratio 1.3, PT 14.8 H, INR 1.41 H, APTT 29, CBC w Diff NO MAN DIFF REQ, RBC 5.18, MCV 86.7, MCH 28.4, RDW 15.8 H, MPV 9.0, Gran % 81.8 H, Lymphocytes % 10.1 L, Monocytes % 8.0, Eosinophils % 0, Basophils % 0.1, Absolute Granulocytes 12.4 H, Absolute Lymphocytes 1.5, Absolute Monocytes 1.2 H, Absolute Eosinophils 0, Absolute Basophils 0, PUBS MCHC 32.8 L 07/08/17 1510: Urine Color YEL, Urine Clarity HAZY H, Urine pH 6.0, Ur Specific Bob White >= 1.030, Urine Protein 100 H, Urine Ketones 15 H, Urine Nitrite POS H, Urine Bilirubin NEG, Urine Urobilinogen 0.2, Ur Leukocyte Esterase MOD H, Ur Microscopic SEDIMENT EXAMINED, Urine RBC 50-75 H, Urine WBC 25-50 H, Ur Epithelial Cells FEW, Urine Bacteria MANY H, Urine Hemoglobin LARGE H, Urine Glucose NEG 07/08/17 1449: Nuj-E-Allkhgwxvlg Pept Cancelled 07/08/17 1437: Magnesium Cancelled Microbiology 07/08 2340 NASOPHARYN: Influenza Virus A & B Rapid Smear - COMP 07/08 1510 URINE ROUT: Urine Culture - RES GRAM NEGATIVE RODS 07/08 1500 BLOOD: Blood Culture - RECD 07/08 1436 BLOOD: Blood Culture - CAN Cancelled: SPECIMEN NOT RECEIVED IN LABORATORY Assessment/Plan Assessment: A 76 year old gentleman with a PMH of HFrEF 25-30% on echocardiogram 03/14/2017 ( followed by Dr. Sanchez), PPM, CAD s/p CABG in 2003, COPD, HLD, diabetes, BPH, LIAM, history of LE cellulitis, previous right total hip arthroplasty (2014) at [facility], septic joint of the right hip with cultures positive for enterococcus for which he underwent IV antibiotics and cement spacer implantation for UTI resistant s/p failed outpatient nitrofuratonin treatement. Plan: Patient is being admitted to ICU as Lactic acid has increased to 6.0 and new onset of rebound tenderness. #Sepsis secondary to UTI Lactic acid 3.6, 3.8, 3.4 <Troponins 0.01, 0.02 Urine cultures growing gram-negative rods -Continue Duvall for urinary retention, void trial and discontinue Duvall if no retention - f/u Blood culture, urine culture sensitivities. - start ceftaz - Trend lactate -f/u with Dr. Young consult given history of R hip replacement infection in the setting of current sepsis - f/u Consult ID #fungal infection of abd fold -Nystatin powder 3 times a day #multiple open blisters -f/u wound care consult #htn -Restart lisinopril and flomax if blood pressure stable #constipation -Continue senna, MiraLAX, Dulcolax suppository as needed #HFrEF 25-30% -Continue dofetilide hld -Continue atorvastatin -Continue aspirin #diabetes -Accu-Cheks and insulin sliding scale #FULL CODE Problem List: 1. Sepsis due to urinary tract infection Pain Ratin Pain Location: lower abd Pain Goal: Pain 4 or less Pain Plan: nystatin powder Tomorrow's Labs & Rationales: cbc bep
--- NOTE | 2017-07-09 10:26 | Event Note ---
Event Note Event Note: It was told by the nurse that patient is having very high lactic acid of 6.8 and complaining of shortness of breath.We examined the patient and find out that the patient has having severe tenderness in upper abdoman. Vitals: T: 98.0, BP: 136/70, O2: 94% on 2LNC, P: 88, RR: [address] Chao advised to increase IV fluid rate to 100 mL per hour and state Chest x-ray and abdominal x-ray to rule out any perforation, give one dose of antibiotics. Dr. Chao went to examine patient. On examination patient was having peritoneal signs. Nurses was unable to get IV access. We decided to transfer patient into ICU. Patient's exam has considerably changed from when I saw him earlier in the morning. He now has diffuse abdominal pain and is sitting up in moderate distress. He'll barely let me touch his abdomen and I am worried about peritoneal signs. At this point I'll bring him into the ICU given the worsening lactic acidosis and the questionable surgical abdomen. Get a chest x-ray stat to rule out any free air. I've asked Dr. Trimble to see him. Give the IV ceftaz as recommended by Dr. Coreas earlier this morning and will likely need to add Flagyl as well. Trend the lactate closely and hydrate him. Keep him nothing by mouth. Patient is stable for ICU transfer
--- NOTE | 2017-07-09 11:33 | Transfer of Care Summary ---
Hospital Course Course Hospital Course: Mr Walls is a 76 year old gentleman with a PMH of HFrEF 25-30% on echocardiogram 03/14/2017 (followed by Dr. Sanchez), PPM, CAD s/p CABG in 2003, COPD, HLD, diabetes, BPH, LIAM, previous right total hip arthroplasty (2014) at [facility], history of LE cellulitis, septic joint of the right hip with cultures positive for enterococcus s/p PICC with a 6 week course of ampicillin SIB calculus professor for UTI. On admission patient complained of abdominal pain and constipation Current vitals- T: 98.0 BP: 136/70 O2: 94% on 2LNC P: 88 RR: 22 Physical exam: Patient is in mild distress and tachypnic. He reported he has not had a bowel movement for the past 4-5 days but has tenesmus. He denies palpitations, CP, palpatations, nausea or vomitting CV: +S1/S2, Lungs: Clear, Abd: +BS, diffuse tenderness on light touch, + rebound tenderness Todays labs: wbc 14 with bandemia 24 (15.2 on admission without bands) , HCO3 16 (19 on admission), anion gap 22 (17 on admission), BUN 22 (21 on admission), LA 6.8 (3.6 on admission) Assessment/Plan: A 76 year old gentleman with a PMH of HFrEF 25-30% on echocardiogram 03/14/2017 ( followed by Dr. Sanchez), PPM, CAD s/p CABG in 2003, COPD, HLD, diabetes, BPH, LIAM, history of LE cellulitis, previous right total hip arthroplasty (2014) at [facility], septic joint of the right hip with cultures positive for enterococcus s/p PICC with a 6 week course of ampicillin SIB calculus professor for UTI with c/o of constipation and abdominal pain admitted to [facility] now being transferred to ICU for acute abdomen. Based on the labs patient is dehydrated but vitals remain stable. Plan: -Patient will be transferred to ICU -Stat CXR to r/o free air under diaphragm and AXR ordered to r/o perforation -Consider CT ABD with contrast if symptoms worsen -Started NS IVF @ 100cc/hr -Serial LA x 2 ordered -Stat Trop ordered to r/o ACS -Continue Ceftazidime for UTI -Continue bowel regimen for constipation -Continue ramon for urinary retention -Surgery consulted-Dr. Trimble Attending-Dr. Zhanna jerome
[2017-07-09 12:00] VITALS: BP 140/76
[2017-07-09 13:00] VITALS: BP 121/62
[2017-07-09 14:08] LABS: ABSOLUTE BASOPHIL COUNT 0 /CUMM (0.0-0.2); ABSOLUTE EOSINOPHIL COUNT 0 /CUMM (0.0-0.7); ABSOLUTE LYMPH COUNT 4.6 /CUMM (1.2-3.4); WHITE BLOOD CELL COUNT 14.2 /CUMM (4.8-10.8)
[2017-07-09 14:13] LABS: PT 14.5 SEC (9.4-12.5)
[2017-07-09 14:14] LABS: ABSOLUTE GRANULOCYTE CT 8.7 /CUMM (1.4-6.5); ABSOLUTE MONOCYTE COUNT 0.8 /CUMM (0.10-0.60); BASOPHIL % 0.3 % (0.0-2.0); EOSINOPHIL % 0 % (0-5); GRANULOCYTE % 61.7 % (42.2-75.2); MEAN CORPUSCULAR HGB CONC 31.6 G/DL (33.0-37.0); MEAN CORPUSCULAR VOLUME 88.5 FL (80.0-94.0); MEAN PLATELET VOLUME 10.7 FL (7.4-10.4); PLATELET COUNT 200 /CUMM (130-400); RBC DISTRIBUTION WIDTH 15.8 % (11.5-14.5); RED BLOOD CELL CT 6.39 /CUMM (4.70-6.10)
[2017-07-09 14:21] LABS: HEMATOCRIT 56.5 % (42-52)
--- NOTE | 2017-07-09 15:36 | CT SCAN REPORT ---
EXAMINATION: CT CHEST WITH CONTRAST CLINICAL INFORMATION: Abdominal pain, tenderness COMPARISON: 07/08/[address] scan. TECHNIQUE: Multidetector volumetric CT imaging of the chest was obtained after the administration of 95 mL of Optiray 300 intravenous contrast without immediate adverse reactions. Axial MIP volume rendering provided. Sagittal and coronal reformatted images were obtained. DLP: 1824.72 mGy-cm FINDINGS: CHALK CUTTER: A single lead cardiac pacemaker is in place. Intra-abdominal free air is seen on the lateral right of way agent view. LUNGS: There are mild centrilobular emphysematous changes of the lungs with upper lobe predominance. There is no focal pulmonary consolidations or pulmonary masses. No pleural effusions. No pneumothorax. There is a 3 mm pleural-based pulmonary nodule along the fissural surface of the right lower lobe, adjacent to the right major fissure as as seen on axial image 273 from series 5. No other pulmonary nodules seen. MEDIASTINUM: The cardiac size is within normal limits. No pericardial effusion. Atherosclerotic calcifications of the coronary arteries are seen. Prior CABG. The thoracic aorta is normal in diameter and demonstrates atherosclerotic calcifications. The pulmonary arteries are normal in diameter. The tracheal and kika are patent. No mediastinal, hilar or axillary adenopathy. There is mild dilatation of the thoracic esophagus which contains fluid. A small hiatal hernia is present. ABDOMEN PELVIS: There is a moderate amount of free fluid within the abdomen and the pelvis. The density of the fluid is about 10 Hounsfield unit density in the pelvic cavity, 12 Hounsfield unit density in the right paracolic gutter and 10 Hounsfield unit in the right subdiaphragmatic location, representing simple fluid. No high density free fluid seen in the abdomen to suggest acute hemorrhagic component. There is moderate amount of free air in the abdomen, beneath the anterior abdominal wall as well as in the mesentery in the right upper quadrant and right lower quadrant. There are some inflammatory changes in the right lower quadrant of the abdomen, adjacent to the cecum as seen on axial images [id number] from series 4. The inflammatory changes extend to the C-loop of the duodenum in the right side of the abdomen. Again noted diverticular disease of the sigmoid colon and left colon. No definite inflammatory changes surrounding the sigmoid colon and left colon seen. The appendix is visualized in the right lower quadrant of the abdomen, better seen on axial images [id number] from series 4. The lumen of the appendix is not dilated. It is adjacent to the inflammatory changes in the right lower quadrant of the abdomen, however does not seem to be the source of the inflammatory changes. The small bowel loops and colon are not dilated. The stomach is normally distended. There is some air within the stomach, better seen on sagittal image 52/167. It is not clear if this area represent pneumatosis. The liver, spleen, adrenal glands, pancreas are unremarkable. The gallbladder is normally distended. No calcified gallstone. There is some pericholecystic fluid which could be as a result of moderate amount of free fluid seen in the abdomen. Again noted bilateral urinary stones and renal cortical and parapelvic cysts. No urinary obstruction. The ureters are not dilated. The urinary bladder is empty in the presence of indwelling catheter. OSSEOUS STRUCTURES: There are multilevel degenerative changes of the lumbar spine with vacuum disc phenomenon present. Median sternotomy wires are in place, intact. Right hip prosthesis is in place. IMPRESSION: Chest: Mild to moderate centrilobular pulmonary emphysema without acute pulmonary infiltrate. No pleural effusions or pericardial effusions. Atherosclerosis and coronary artery disease. Abdomen pelvis: Interval development of a moderate amount of free fluid and free air within the abdomen and pelvis since 07/08/2017 CT scan suggests bowel perforation. There are some inflammatory changes in the right side of the abdomen which could suggest the origin of the bowel perforation. Inflammatory changes extend to the C-loop of the duodenum as well when there is some wall thickening. No CT evidence of acute appendicitis. The findings were discussed with the ordering physician, Dr. Hughes at 3:00 p.m. on 07/09/2017.
--- NOTE | 2017-07-09 15:41 | Procedure ---
Minor Surgical Procedure Note Date of Procedure: 07/09/17 Procedure Note: ULTRASOUND GUIDED RIGHT INTERNAL JUGULAR CENTRAL LINE PLACED UNDER LOCAL ANESTHESIA. ALL PORTS FLUSH WELL. NO IMMEDIATE COMPLICATONS. CXR PENDING.
--- NOTE | 2017-07-09 16:00 | Cons- General Surgery ---
General Information and HPI Consulting Request Date of Consult: 07/09/17 Requested By: JACOBO HALL MD Reason for Consult: ABDOMINAL PAIN History of Present Illness: PATIENT PRESENTS FROM HOME. HE WAS DISCHARGED FROM [facility] RECENTLY AFTER COMPLETION OF IV ABX FOR PROSTHETIC HIP INFECTION S/P EXPLANTATION AND REPLACEMENT WITH SPACER. PATIENT CAME TO ER LAST NIGHT FOR ABDOMINAL PAIN. CT AT THAT TIME SHOWED NO INTRAABDOMINAL PROCESS. PRESUMPTIVE DIAGNOSIS OF URINARY TRACT INFECTION WAS MADE AND STARTED ON ABX. OVER THE NIGHT HE DEVELOPED SEVERE ABDOMINAL PAIN WITH CONCERNS ON PHYSICAL EXAMINATION FOR PERITONITIS. HE WAS TRANSFERRED TO ICU. PATIENT C/O DIFFUSE ABDOMINAL PAIN AND EXTREME THIRST. Allergies/Medications Allergies: Coded Allergies: NO KNOWN ALLERGIES (03/22/12) NKA PER DIPYRIDAMOLE ORDER SHEET - [facility] Home Med List: Aspirin (Ecotrin*) 81 MG TABLET.DR 1 TAB PO DAILY HEART/BLOOD (Reported) Carvedilol 6.25 MG TABLET 1 TAB PO BID HEART (Reported) Dofetilide 500 MCG CAPSULE 1 CAP PO BID HEART (Reported) Fluticasone-Salmeterol (Advair 100-50 Diskus) 100 MCG-50 MCG/DOSE BLST.W.DEV 1 PUF INH BID COPD (Reported) Liraglutide (Victoza 3-Myles) 0.6 MG/0.1 ML (18 MG/3 ML) PEN.INJCTR 1.2 MG SC QAM DIABETES (Reported) Lisinopril (Prinivil) 5 MG TABLET 1 TAB PO QHS HEART/BP (Reported) Magnesium Gluconate (Mag-G) 27 MG (500 MG) TABLET 1 TAB PO Tuesday SUPPLEMENT (Reported) Metformin HCl 500 MG TABLET 1 TAB PO BID DIABETES (Reported) Shoshoni-3/Dha/Epa/Fish Oil (Fish Oil 500 MG Softgel) 60 MG-90 MG-500 MG CAPSULE 1 CAP PO QPM SUPPLEMENT (Reported) Simvastatin (Zocor*) 10 MG TABLET 1 TAB PO QHS CHOLESTEROL (Reported) Tamsulosin HCl (Flomax) 0.4 MG CAP.ER.24H 1 CAP PO DAILY PROSTATE (Reported) Vitamin E Acetate (Vitamin E) 400 UNIT CAPSULE 1 CAP PO BID SUPPLEMENT ( Reported) Current Medications: Current Medications Sig/Buck Start time Last Medication Dose Route Stop Time Status Admin Acetaminophen 1,000 MG Q6H PRN 07/09 1200 AC N/A 1 UNIT IV Acetaminophen 650 MG Q6P PRN 07/08 1900 DC PO Ampicillin Sodium/ 3,000 MG Q6 07/08 1945 DC 07/09 Sulbactam Sodium IV 0521 Sodium Chloride 100 ML Aspirin Buffered 81 MG DAILY 07/09 1000 DC PO Atorvastatin Calcium 10 MG 1700 07/09 1700 CAN PO Bisacodyl 10 MG ONCE ONE 07/09 0900 DC 07/09 ND 07/09 0901 0900 Bisacodyl 10 MG ONCE ONE 07/08 2030 DC ND 07/08 2031 Budesonide/ 2 PUF BID 07/08 2200 AC 07/08 Formoterol Fumarate INH 2234 Carvedilol 6.25 MG BID 07/08 220 CAN PO Ceftazidime 1,000 MG IQ8 07/09 1600 DC IV Ceftazidime 1,000 MG Q8H 07/09 1300 AC 07/09 IV 1416 Ceftriaxone Sodium 0 .STK-MED ONE 07/08 1633 DC .ROUTE Ceftriaxone Sodium 1,000 MG ONCE ONE 07/08 1600 DC 07/08 IV 07/08 1601 1630 Dofetilide 500 MCG BID 07/08 2200 DC 07/08 PO 2233 Enoxaparin Sodium 40 MG DAILY 07/08 1846 AC 07/08 SC 2234 Insulin Aspart 0 TIDAC 07/09 0800 AC SC Ketorolac 0 .STK-MED ONE 07/08 1801 DC Tromethamine .ROUTE Ketorolac 15 MG ONCE ONE 07/08 1715 DC 07/08 Tromethamine IV 07/08 1716 1842 Metronidazole 500 MG Q8H 07/09 1300 AC 07/09 N/A 1 UNIT IV 1416 Morphine Sulfate 2 MG ONCE ONE 07/09 1245 DC IV 07/09 1246 Morphine Sulfate 0 .STK-MED ONE 07/08 1929 DC .ROUTE Morphine Sulfate 2 MG Q4P PRN 07/08 1900 AC 07/09 IV 0100 Nystatin 1 GENE TID 07/09 0015 AC TOP Oxycodone/ 1 TAB Q6P PRN 07/08 1900 DC Acetaminophen PO Polyethylene Glycol 17 GM ONCE ONE 07/09 0645 DC 07/09 PO 07/09 0646 0645 Polyethylene Glycol 17 GM DAILY 07/08 2030 DC PO Senna 187 MG AT BEDTIME 07/08 2200 DC 07/08 PO 2231 Sodium Chloride 1,000 ML Q6H 07/09 1245 AC 07/09 IV 07/09 1844 1415 Sodium Chloride 1,000 ML Q20H 07/09 1015 AC IV 07/10 1614 Sodium Chloride 1,000 ML BOLUS ONE 07/09 0145 DC 07/09 IV 07/09 0344 0144 Sodium Chloride 1,000 ML BOLUS ONE 07/08 1615 DC 07/08 IV 07/08 1714 1733 Sodium Chloride 1,000 ML BOLUS ONE 07/08 1500 DC 07/08 IV 07/08 1559 1523 Past History Medical History Blood Transfusion Hx: No Neurological: NONE EENT: hearing loss Cardiovascular: AFIB, CAD, hypertension, myocardial infarction, RCW AICD S/P CABG 2003 Respiratory: bronchitis, SLEEP APNEA Gastrointestinal: NONE Hepatic: NONE Renal: NONE Musculoskeletal: falls Psychiatric: NONE Endocrine: obesity, DIABETES TYPE 2 Blood Disorders: NONE Cancer(s): NONE 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 FH: heart disease BROTHER FH: lung cancer FATHER FH: prostate cancer Psychosocial History Who Do You Live With? with nephew Services at Home: None Primary Language: Armenian Smoking Status: Never Smoked Functional Ability ADLs Independent: eating. Needs Assist: dressing, toileting, bathing. Ambulation: walker IADLs Needs Assist: shopping, housework, finances, food prep, telephone, transportation, medication admin. Review of Systems Review of Systems: DYSPNEA. NO CHEST PAIN. ABDOMINAL PAIN PER HPI, REMAINDER 10 NEG Exam & Diagnostic Data Vital Signs and I&O Vital Signs Date Time Temp Pulse Resp B/P B/P Pulse O2 O2 Flow FiO2 Mean Ox Delivery Rate 07/09 1200 93 24 140/76 91 Nasal 2.0L Cannula 07/09 930 98.0 88 22 132/70 94 Nasal 2.0L Cannula 07/09 08 93 Nasal 2.0L Cannula 07/09 723 98.6 74 24 150/80 95 Room Air 07/09 0550 89 92 07/09 0336 70 92 07/09 0036 70 94 07/08 2123 Room Air 07/08 2035 98.4 74 20 140/80 95 Room Air 07/08 1910 96.4 69 18 132/62 93 Room Air 07/08 1844 Room Air 07/08 1742 99.2 54 16 125/62 92 Room Air 07/08 1558 101.9 72 16 124/63 93 Room Air Intake & Output 07/09 1600 07/09 0800 07/09 0000 07/08 1600 07/08 0800 07/08 0000 Intake Total 1200 1560 Output Total 650 950 Balance 550 610 Intake, IV 1200 1510 Intake, Oral 50 Output, Urine 650 950 Patient 257 lb 157 lb Weight Weight Reported by Patient Reported by Patient Measurement Method Physical Exam: GEN; OBESE, MORBID. RESPIRATORY DISTRESS/DYSPNEIC. HEENT; ANICTERIC, PERRL, EOMI. DRY MM ABD; OBESE, SOFT, DIFFUSELY TENDER WITH INVOLUNTARY GUARDING IN EPIGASTRUM. NO MASS OR HERNIA EXT; NO CCE Last 24 Hours of Labs: Laboratory Tests 07/09 07/09 07/09 1320 1320 1149 Chemistry Sodium (137 - 145 mmol/L) 143 Potassium (3.5 - 5.1 mmol/L) 4.6 Chloride (98 - 107 mmol/L) 107 Carbon Dioxide (22 - 30 mmol/L) 12 L Anion Gap (5 - 16) 24 H BUN (9 - 20 mg/dL) 27 H Creatinine (0.7 - 1.2 mg/dL) 1.7 H Estimated GFR (>60 ml/min) 39 L Glucose (65 - 99 mg/dL) 312 H Lactic Acid (0.7 - 2.1 mmol/L) 11.0 H Calcium (8.4 - 10.2 mg/dL) 9.5 Phosphorus (2.5 - 4.5 mg/dL) 4.1 Magnesium (1.6 - 2.3 mg/dL) 1.9 Total Bilirubin (0.2 - 1.3 mg/dL) 1.2 AST (17 - 59 U/L) 26 ALT (21 - 72 U/L) 19 L Troponin I (<0.11 ng/ml) Pending Cancelled Albumin (3.5 - 5.0 g/dL) 3.8 Coagulation PT (9.4 - 12.5 SEC) 14.5 H INR (0.90 - 1.17) 1.39 H Hematology CBC w Diff MAN DIFF ORDERED WBC (4.8 - 10.8 /CUMM) 14.2 H RBC (4.70 - 6.10 /CUMM) 6.39 H Hgb (14.0 - 18.0 G/DL) 17.9 Hct (42 - 52 %) 56.5 H MCV (80.0 - 94.0 FL) 88.5 MCH (27.0 - 31.0 PG) 28.0 RDW (11.5 - 14.5 %) 15.8 H Plt Count (130 - 400 /CUMM) 200 MPV (7.4 - 10.4 FL) 10.7 H Gran % (42.2 - 75.2 %) 61.7 Lymphocytes % (20.5 - 51.1 %) 32.4 Monocytes % (1.7 - 9.3 %) 5.6 Eosinophils % (0 - 5 %) 0 Basophils % (0.0 - 2.0 %) 0.3 Absolute Granulocytes (1.4 - 6.5 /CUMM) 8.7 H Segmented Neutrophils (42.2 - 75.2 %) 31 L Band Neutrophils (0.0 - 5.0 %) 24 H Absolute Lymphocytes (1.2 - 3.4 /CUMM) 4.6 H Lymphocytes (20.5 - 51.1 %) 39 Monocytes (1.7 - 9.3 %) 6 Absolute Monocytes (0.10 - 0.60 /CUMM) 0.8 H Absolute Eosinophils (0.0 - 0.7 /CUMM) 0 Absolute Basophils (0.0 - 0.2 /CUMM) 0 Platelet Estimate (ADEQUATE) VERIFIED BY SMEAR Polychromasia 1+ Anisocytosis 1+ PUBS MCHC (33.0 - 37.0 G/DL) 31.6 L 07/09 07/09 07/09 1100 0733 0733 Chemistry Sodium (137 - 145 mmol/L) 144 Potassium (3.5 - 5.1 mmol/L) 4.4 Chloride (98 - 107 mmol/L) 106 Carbon Dioxide (22 - 30 mmol/L) 16 L Anion Gap (5 - 16) 22 H BUN (9 - 20 mg/dL) 22 H Creatinine (0.7 - 1.2 mg/dL) 1.0 Estimated GFR (>60 ml/min) > 60 BUN/Creatinine Ratio (7 - 25 %) 22.0 Lactic Acid (0.7 - 2.1 mmol/L) Cancelled 6.8 H Hematology CBC w Diff MAN DIFF ORDERED WBC (4.8 - 10.8 /CUMM) 14.0 H RBC (4.70 - 6.10 /CUMM) 5.55 Hgb (14.0 - 18.0 G/DL) 16.1 Hct (42 - 52 %) 48.9 MCV (80.0 - 94.0 FL) 88.0 MCH (27.0 - 31.0 PG) 29.0 RDW (11.5 - 14.5 %) 16.0 H Plt Count (130 - 400 /CUMM) 178 MPV (7.4 - 10.4 FL) 10.0 Gran % (42.2 - 75.2 %) 67.9 Lymphocytes % (20.5 - 51.1 %) 26.5 Monocytes % (1.7 - 9.3 %) 5.4 Eosinophils % (0 - 5 %) 0 Basophils % (0.0 - 2.0 %) 0.2 Absolute Granulocytes (1.4 - 6.5 /CUMM) 9.5 H Segmented Neutrophils (42.2 - 75.2 %) 47 Band Neutrophils (0.0 - 5.0 %) 24 H Absolute Lymphocytes (1.2 - 3.4 /CUMM) 3.7 H Lymphocytes (20.5 - 51.1 %) 24 Monocytes (1.7 - 9.3 %) 5 Absolute Monocytes (0.10 - 0.60 /CUMM) 0.8 H Absolute Eosinophils (0.0 - 0.7 /CUMM) 0 Absolute Basophils (0.0 - 0.2 /CUMM) 0 Platelet Estimate (ADEQUATE) VERIFIED BY SMEAR Polychromasia 1+ Anisocytosis 1+ PUBS MCHC (33.0 - 37.0 G/DL) 32.9 L 07/09 07/09 07/09 07/08 0515 0045 0045 1736 Chemistry Lactic Acid (0.7 - 2.1 mmol/L) 3.4 H 3.8 H Cancelled Troponin I (<0.11 ng/ml) < 0.01 Imaging Results: CT SCAN OF ABDOMEN PELVIS 07/09/17 WAS PERSONALLY REVIEWED AND COMPARED TO CT 07/08/17. FINDINGS SHOW NEW ONSET OF DIFFUSE ASCITES AND NEW INTRAPERITONEAL FREE AIR IN EPGASTRUM. THERE IS EXTRA-LUMINAL GAS NEAR DUODENUM. THERE IS DUODENAL THICKENING. Assessment/Plan Assessment/Plan PERFORATED VISCUS. HE IS HYPOVOLEMIC FROM PERITONITIS AND REQUIRES FLUID RESUSCITATION VELMA. POOR PERIPHERAL ACCESS. CENTRAL LINE PLACED AT BEDSIDE TO FACILITATE PROCESS--SEE PROCEDURE NOTE. RESUSCITATION UNDERWAY. DISCUSSED FINDINGS WITH PATIENT. HE WILL NEED PROMPT SURGICAL EXPLORATION AND REPAIR OF PERFORATION AND/OR BOWEL RESECTION. HE UNDERSTANDS AND AGREES. Problem List: 1. Perforated viscus Copies To: CHRISTINE RODRÍGUEZ,WON CHAUDHRY MD,JUAN Cornejo Consult Acknowledgment - Thank you for your consult request.
--- NOTE | 2017-07-09 16:25 | RADIOLOGY REPORT ---
EXAMINATION: PORTABLE CHEST 1 VIEW CLINICAL INFORMATION: CENTRAL LINE, DYSPNEA. COMPARISON: 07/09/2017 earlier today. TECHNIQUE: Portable frontal view of the chest was obtained. FINDINGS: Lungs are mildly hypoexpanded. Right IJ central venous catheter tip near the cavoatrial junction. No evidence for pneumothorax. There is blunting of the left costophrenic angle suggesting tiny left effusion. Minimal basilar markings more likely due to atelectasis. No overt edema. Dual-lead pacemaker/AICD is again noted. Patient status post sternotomy. IMPRESSION: New right IJ central venous catheter tip near the cavoatrial junction. No pneumothorax. Chronic appearing changes otherwise.
--- NOTE | 2017-07-09 18:37 | Operative Report ---
Operative/Inv Procedure Report Surgery Date: 07/09/17 Name of Procedure: 1. Fabrizio patch perforated duodenal ulcer 2. Exploration and drainage retroperitoneal infection Pre-Operative Diagnosis: Perforated duodenal ulcer Post-Operative Diagnosis: Same Estimated Blood Loss: scant Surgeon/Surgical Specialist: Angel Trimble M.D./Eusebia MACIAS Anesthesia: general endotracheal tube Drains: 19 [place] Uri-Cotton round Microbiology: Peritoneal fluid Operative Indication: See preoperative consultation Operative/Procedure Note Note: After informed consent patient brought to the operating room laid supine. Gen. anesthesia was obtained and his abdomen was prepped and draped. A midline epigastric incision made sharply subcutaneous tissues dissected with cautery. We incised the fascia with cautery and entered the peritoneum sharply. We evacuated 3.5 L of succus entericus. A specimen was sent for culture. We ran the small bowel from the ligament of Treitz to the terminal ileum. There is no evidence of perforation. The cecum was normal. We then turned attention to the epigastric region and evaluated the stomach. There was normal distal stomach and first and second portion of the duodenum. There appeared to be some enteric contents emanating from what initially looked like transverse colon, right- sided. There was a infection created tract of enteric contents behind the right colon. So we took down the peritoneal attachments of the hepatic flexure and mobilized the entire right colon with the LigaSure device. There was a massive amount of contamination with enteric contents in this area. There was pulse lavaged with normal saline. We then inspected the cecum and transverse colon. There is no evidence of perforation. Further evaluation revealed a retroperitoneal perforation of the duodenum, third portion. The hole was approximately 2 cm in dimension. I elected to patch it with omentum. A tunnel omentum was taken with the LigaSure device. We brought it down to the perforation site and sutured onto the duodenum with 3 interrupted 3-0 Vicryl sutures. We inspected the area and it appeared to seal the hole adequately. The peritoneal cavity was then irrigated normal saline throughout. A 19 [place] round Uri-Cotton drain was brought out laterally and we placed it into the retroperitoneal extension of the infection behind the colon and up to the inferior portion of the duodenal perforation. Drain was attached the skin with 2-0 nylon. We then removed our retraction system. Sponge and instrument counts were correct. The fascia was then closed with a running 0 Maxon suture. The wound was irrigated with saline and closed loosely with dagoberto. A sterile dressing was applied. Findings: Severe peritonitis with retroperitoneal extension behind the right colon CC: ISIDORO RODRÍGUEZ,JUAN Cornejo
--- NOTE | 2017-07-09 19:13 | Cons- Cardiology ---
General Information and HPI Consulting Request Date of Consult: 07/09/17 Requested By: JACOBO HALL MD Reason for Consult: Ischemic cardiomyopathy History of Present Illness: The patient is a 76 oral male with history of obstructive sleep apnea, COPD, hypertension, diabetes mellitus, CAD, status post CABG in 1998 with ischemic cardiomyopathy, paroxysmal atrial fibrillation. He has a history of sustained ventricular tachycardia, maintained on antiarrhythmic medications. He had a defibrillator placed in 2004 with a generator change in 2011. He presented with abdominal pain, and was found to have evidence of perforated viscus with peritonitis. He is status post surgical repair, and is currently NPO. The patient is intubated and sedated, and is minimal to give any history. Allergies/Medications Allergies: Coded Allergies: NO KNOWN ALLERGIES (03/22/12) NKA PER DIPYRIDAMOLE ORDER SHEET - [facility] Home Med List: Aspirin (Ecotrin*) 81 MG TABLET.DR 1 TAB PO DAILY HEART/BLOOD (Reported) Carvedilol 6.25 MG TABLET 1 TAB PO BID HEART (Reported) Dofetilide 500 MCG CAPSULE 1 CAP PO BID HEART (Reported) Fluticasone-Salmeterol (Advair 100-50 Diskus) 100 MCG-50 MCG/DOSE BLST.W.DEV 1 PUF INH BID COPD (Reported) Liraglutide (Victoza 3-Myles) 0.6 MG/0.1 ML (18 MG/3 ML) PEN.INJCTR 1.2 MG SC QAM DIABETES (Reported) Lisinopril (Prinivil) 5 MG TABLET 1 TAB PO QHS HEART/BP (Reported) Magnesium Gluconate (Mag-G) 27 MG (500 MG) TABLET 1 TAB PO Tuesday SUPPLEMENT (Reported) Metformin HCl 500 MG TABLET 1 TAB PO BID DIABETES (Reported) [place]-3/Dha/Epa/Fish Oil (Fish Oil 500 MG Softgel) 60 MG-90 MG-500 MG CAPSULE 1 CAP PO QPM SUPPLEMENT (Reported) Simvastatin (Zocor*) 10 MG TABLET 1 TAB PO QHS CHOLESTEROL (Reported) Tamsulosin HCl (Flomax) 0.4 MG CAP.ER.24H 1 CAP PO DAILY PROSTATE (Reported) Vitamin E Acetate (Vitamin E) 400 UNIT CAPSULE 1 CAP PO BID SUPPLEMENT ( Reported) Current Medications: Current Medications Sig/Buck Start time Last Medication Dose Route Stop Time Status Admin Acetaminophen 1,000 MG Q6H PRN 07/09 1200 DC N/A 1 UNIT IV Acetaminophen 650 MG Q6P PRN 07/08 1900 DC PO Ampicillin Sodium/ 3,000 MG Q6 07/08 1945 DC 07/09 Sulbactam Sodium IV 0521 Sodium Chloride 100 ML Aspirin Buffered 81 MG DAILY 07/09 1000 DC PO Atorvastatin Calcium 10 MG 1700 07/09 1700 CAN PO Bisacodyl 10 MG ONCE ONE 07/09 0900 DC 07/09 IL 07/09 0901 0900 Bisacodyl 10 MG ONCE ONE 07/08 2030 DC [place] 07/08 2031 Budesonide/ 2 PUF BID 07/08 2200 DC 07/08 Formoterol Fumarate INH 2234 Carvedilol 6.25 MG BID 07/08 2200 CAN PO Ceftazidime 1,000 MG IQ8 07/09 1600 DC IV Ceftazidime 1,000 MG Q8H 07/09 1300 DC 07/09 IV 1416 Dofetilide 500 MCG BID 07/08 2200 DC 07/08 PO 2233 Enoxaparin Sodium 40 MG DAILY 07/08 1846 DC 07/08 SC 2234 Fentanyl Citrate 1,000 MCG Q24H 07/09 1815 AC Dextrose/Water 250 ML IV Insulin Aspart 0 TIDAC 07/09 0800 DC SC Metronidazole 500 MG Q8H 07/09 1300 DC 07/09 N/A 1 UNIT IV 1416 Morphine Sulfate 2 MG ONCE ONE 07/09 1245 DC IV 07/09 1246 Morphine Sulfate 0 .STK-MED ONE 07/08 1929 DC .ROUTE Morphine Sulfate 2 MG Q4P PRN 07/08 1900 DC 07/09 IV 0100 Nystatin 1 GENE TID 07/09 0015 DC TOP Oxycodone/ 1 TAB Q6P PRN 07/08 1900 DC Acetaminophen PO Polyethylene Glycol 17 GM ONCE ONE 07/09 0645 DC 07/09 PO 07/09 0646 0645 Polyethylene Glycol 17 GM DAILY 07/08 2030 DC PO Senna 187 MG AT BEDTIME 07/08 2200 DC 07/08 PO 2231 Sodium Chloride 1,000 ML Q6H 07/09 1245 DC 07/09 IV 07/09 1844 1415 Sodium Chloride 1,000 ML Q20H 07/09 1015 DC IV 07/10 1614 Sodium Chloride 1,000 ML BOLUS ONE 07/09 0145 DC 07/09 IV 07/09 0344 0144 Vancomycin HCl 1,500 MG ONCE ONE 07/09 1815 AC Sodium Chloride 250 ML IV 07/09 1944 Review of Systems Review of Systems: No rash. No tremor. No melena. All other systems were reviewed, and were noted to be negative. Past History Travel History Traveled to [place] past 21 day No Medical History Blood Transfusion Hx: No Neurological: NONE EENT: hearing loss Cardiovascular: AFIB, CAD, hypertension, myocardial infarction, RCW AICD S/P CABG 2003 Respiratory: bronchitis, SLEEP APNEA Gastrointestinal: NONE Hepatic: NONE Renal: NONE Musculoskeletal: falls Psychiatric: NONE Endocrine: obesity, DIABETES TYPE 2 Blood Disorders: NONE Cancer(s): NONE CONCILIATION COURT JUDGE/Reproductive: NONE Surgical History Surgical History: CABG, hip replacement (right), s/p lithotripsy HIP PROSTHESIS INFECTION S/P REMOVAL 2016 Family History Relations & Conditions If Any: MOTHER, , Age 60+; Cause: Heart disease. FH: heart disease BROTHER FH: lung cancer FATHER FH: prostate cancer Psychosocial History Who Do You Live With? with nephew Services at Home: None Primary Language: Trinidadian Smoking Status: Never Smoked Functional Ability ADLs Independent: eating. Needs Assist: dressing, toileting, bathing. Ambulation: walker IADLs Needs Assist: shopping, housework, finances, food prep, telephone, transportation, medication admin. Exam & Diagnostic Data Vital Signs and I&O Vital Signs Date Time Temp Pulse Resp B/P B/P Pulse O2 O2 Flow FiO2 Mean Ox Delivery Rate 07/09 1300 92 Nasal 2.0L Cannula 07/09 1300 98.1 92 45 121/62 92 Nasal 2.0L Cannula 07/09 1200 93 24 140/76 91 Nasal 2.0L Cannula 07/09 0930 98.0 88 22 132/70 94 Nasal 2.0L Cannula 07/09 0830 93 Nasal 2.0L Cannula 07/09 0723 98.6 74 24 150/80 95 Room Air 07/09 0550 89 92 07/09 0336 70 92 07/09 0036 70 94 07/08 2123 Room Air 07/08 2035 98.4 74 20 140/80 95 Room Air 07/08 1910 96.4 69 18 132/62 93 Room Air Intake & Output 07/09 1600 07/09 0800 07/09 0000 07/08 1600 07/08 0800 07/08 0000 Intake Total 320 1200 1560 Output Total 110 650 950 Balance 210 550 610 Intake, IV 320 1200 1510 Intake, Oral 0 50 Output, Urine 110 650 950 Patient 266 lb 257 lb 157 lb Weight Weight Bed scale Reported by Patient Reported by Patient Measurement Method Physical Exam: Gen: The patient is in no acute distress HEENT: Normal nose, ears, and oropharynx. Pupils equal bilaterally. Conjunctiva normal. Neck: Supple with no JVD, no masses, and no thyromegaly Lungs: Clear to auscultation with normal respiratory effort Heart: RRR, S1, S2, 1/6 systolic murmur. No peripheral edema, 2+ pulses in the lower extremities bilaterally Abdomen: Soft, nontender, no masses. No hepatomegaly. No splenomegaly Extremities: No clubbing or cyanosis. Normal muscle strength in the upper and lower extremities Skin: Normal skin turgor with no skin ulcers or lesions noted. Neuro: Cranial nerves intact. Sensation intact Psych: Alert and oriented 3 with appropriate affect Labs/Les Results: Laboratory Tests 07/09 07/09 07/09 1320 1320 1149 Chemistry Sodium (137 - 145 mmol/L) 143 Potassium (3.5 - 5.1 mmol/L) 4.6 Chloride (98 - 107 mmol/L) 107 Carbon Dioxide (22 - 30 mmol/L) 12 L Anion Gap (5 - 16) 24 H BUN (9 - 20 mg/dL) 27 H Creatinine (0.7 - 1.2 mg/dL) 1.7 H Estimated GFR (>60 ml/min) 39 L Glucose (65 - 99 mg/dL) 312 H Lactic Acid (0.7 - 2.1 mmol/L) 11.0 H Calcium (8.4 - 10.2 mg/dL) 9.5 Phosphorus (2.5 - 4.5 mg/dL) 4.1 Magnesium (1.6 - 2.3 mg/dL) 1.9 Total Bilirubin (0.2 - 1.3 mg/dL) 1.2 AST (17 - 59 U/L) 26 ALT (21 - 72 U/L) 19 L Troponin I (<0.11 ng/ml) 0.03 Cancelled Albumin (3.5 - 5.0 g/dL) 3.8 Coagulation PT (9.4 - 12.5 SEC) 14.5 H INR (0.90 - 1.17) 1.39 H Hematology CBC w Diff MAN DIFF ORDERED WBC (4.8 - 10.8 /CUMM) 14.2 H RBC (4.70 - 6.10 /CUMM) 6.39 H Hgb (14.0 - 18.0 G/DL) 17.9 Hct (42 - 52 %) 56.5 H MCV (80.0 - 94.0 FL) 88.5 MCH (27.0 - 31.0 PG) 28.0 RDW (11.5 - 14.5 %) 15.8 H Plt Count (130 - 400 /CUMM) 200 MPV (7.4 - 10.4 FL) 10.7 H Gran % (42.2 - 75.2 %) 61.7 Lymphocytes % (20.5 - 51.1 %) 32.4 Monocytes % (1.7 - 9.3 %) 5.6 Eosinophils % (0 - 5 %) 0 Basophils % (0.0 - 2.0 %) 0.3 Absolute Granulocytes (1.4 - 6.5 /CUMM) 8.7 H Segmented Neutrophils (42.2 - 75.2 %) 31 L Band Neutrophils (0.0 - 5.0 %) 24 H Absolute Lymphocytes (1.2 - 3.4 /CUMM) 4.6 H Lymphocytes (20.5 - 51.1 %) 39 Monocytes (1.7 - 9.3 %) 6 Absolute Monocytes (0.10 - 0.60 /CUMM) 0.8 H Absolute Eosinophils (0.0 - 0.7 /CUMM) 0 Absolute Basophils (0.0 - 0.2 /CUMM) 0 Platelet Estimate (ADEQUATE) VERIFIED BY SMEAR Polychromasia 1+ Anisocytosis 1+ PUBS MCHC (33.0 - 37.0 G/DL) 31.6 L 07/09 07/09 07/09 1100 0733 0733 Chemistry Sodium (137 - 145 mmol/L) 144 Potassium (3.5 - 5.1 mmol/L) 4.4 Chloride (98 - 107 mmol/L) 106 Carbon Dioxide (22 - 30 mmol/L) 16 L Anion Gap (5 - 16) 22 H BUN (9 - 20 mg/dL) 22 H Creatinine (0.7 - 1.2 mg/dL) 1.0 Estimated GFR (>60 ml/min) > 60 BUN/Creatinine Ratio (7 - 25 %) 22.0 Lactic Acid (0.7 - 2.1 mmol/L) Cancelled 6.8 H Hematology CBC w Diff MAN DIFF ORDERED WBC (4.8 - 10.8 /CUMM) 14.0 H RBC (4.70 - 6.10 /CUMM) 5.55 Hgb (14.0 - 18.0 G/DL) 16.1 Hct (42 - 52 %) 48.9 MCV (80.0 - 94.0 FL) 88.0 MCH (27.0 - 31.0 PG) 29.0 RDW (11.5 - 14.5 %) 16.0 H Plt Count (130 - 400 /CUMM) 178 MPV (7.4 - 10.4 FL) 10.0 Gran % (42.2 - 75.2 %) 67.9 Lymphocytes % (20.5 - 51.1 %) 26.5 Monocytes % (1.7 - 9.3 %) 5.4 Eosinophils % (0 - 5 %) 0 Basophils % (0.0 - 2.0 %) 0.2 Absolute Granulocytes (1.4 - 6.5 /CUMM) 9.5 H Segmented Neutrophils (42.2 - 75.2 %) 47 Band Neutrophils (0.0 - 5.0 %) 24 H Absolute Lymphocytes (1.2 - 3.4 /CUMM) 3.7 H Lymphocytes (20.5 - 51.1 %) 24 Monocytes (1.7 - 9.3 %) 5 Absolute Monocytes (0.10 - 0.60 /CUMM) 0.8 H Absolute Eosinophils (0.0 - 0.7 /CUMM) 0 Absolute Basophils (0.0 - 0.2 /CUMM) 0 Platelet Estimate (ADEQUATE) VERIFIED BY SMEAR Polychromasia 1+ Anisocytosis 1+ PUBS MCHC (33.0 - 37.0 G/DL) 32.9 L 07/09 07/09 07/09 07/08 0515 0045 0045 1736 Chemistry Lactic Acid (0.7 - 2.1 mmol/L) 3.4 H 3.8 H Cancelled Troponin I (<0.11 ng/ml) < 0.01 07/08 07/08 1524 1510 Chemistry Sodium (137 - 145 mmol/L) 140 Potassium (3.5 - 5.1 mmol/L) 4.1 Chloride (98 - 107 mmol/L) 104 Carbon Dioxide (22 - 30 mmol/L) 19 L Anion Gap (5 - 16) 17 H BUN (9 - 20 mg/dL) 21 H Creatinine (0.7 - 1.2 mg/dL) 0.9 Estimated GFR (>60 ml/min) > 60 BUN/Creatinine Ratio (7 - 25 %) 23.3 Glucose (65 - 99 mg/dL) 199 H Lactic Acid (0.7 - 2.1 mmol/L) 3.6 H Calcium (8.4 - 10.2 mg/dL) 9.6 Magnesium (1.6 - 2.3 mg/dL) 1.8 Total Bilirubin (0.2 - 1.3 mg/dL) 1.4 H Direct Bilirubin (< 0.4 mg/dL) 0.7 H AST (17 - 59 U/L) 26 ALT (21 - 72 U/L) 25 Alkaline Phosphatase (< 127 U/L) 89 Creatine Kinase (55 - 170 U/L) 103 Troponin I (<0.11 ng/ml) 0.02 [id number] Pept (<125 pg/mL) 1540 H Total Protein (6.3 - 8.2 g/dL) 6.8 Albumin (3.5 - 5.0 g/dL) 3.9 Globulin (1.9 - 4.2 gm/dL) 2.9 Albumin/Globulin Ratio (1.1 - 2.2 %) 1.3 Coagulation PT (9.4 - 12.5 SEC) 14.8 H INR (0.90 - 1.17) 1.41 H APTT (25 - 37 SEC) 29 Hematology CBC w Diff NO MAN DIFF REQ WBC (4.8 - 10.8 /CUMM) 15.2 H RBC (4.70 - 6.10 /CUMM) 5.18 Hgb (14.0 - 18.0 G/DL) 14.7 Hct (42 - 52 %) 44.9 MCV (80.0 - 94.0 FL) 86.7 MCH (27.0 - 31.0 PG) 28.4 RDW (11.5 - 14.5 %) 15.8 H Plt Count (130 - 400 /CUMM) 137 MPV (7.4 - 10.4 FL) 9.0 Gran % (42.2 - 75.2 %) 81.8 H Lymphocytes % (20.5 - 51.1 %) 10.1 L Monocytes % (1.7 - 9.3 %) 8.0 Eosinophils % (0 - 5 %) 0 Basophils % (0.0 - 2.0 %) 0.1 Absolute Granulocytes (1.4 - 6.5 /CUMM) 12.4 H Absolute Lymphocytes (1.2 - 3.4 /CUMM) 1.5 Absolute Monocytes (0.10 - 0.60 /CUMM) 1.2 H Absolute Eosinophils (0.0 - 0.7 /CUMM) 0 Absolute Basophils (0.0 - 0.2 /CUMM) 0 PUBS MCHC (33.0 - 37.0 G/DL) 32.8 L Urines Urine Color (YEL,AMB,STR) YEL Urine Clarity (CLEAR) HAZY H Urine pH (5.0 - 8.0) 6.0 Ur Specific [place] (1.001 - 1.035) >= 1.030 Urine Protein (NEG,<30 MG/DL) 100 H Urine Ketones (NEG) 15 H Urine Nitrite (NEG) POS H Urine Bilirubin (NEG) NEG Urine Urobilinogen (0.1 - 1.0 EU/dl) 0.2 Ur Leukocyte Esterase (NEG) MOD H Ur Microscopic SEDIMENT EXAMINED Urine RBC (0 - 5 /HPF) 50-75 H Urine WBC (0 - 2 /HPF) 25-50 H Ur Epithelial Cells (NONE,FEW) FEW Urine Bacteria (NEG/NONE) MANY H Urine Hemoglobin (NEG) LARGE H Urine Glucose (N MG/DL) NEG 07/08 07/08 1449 1437 Chemistry Magnesium Cancelled [id number] Pept Cancelled Diagnostic Data EKG Results EKG tracing is independently reviewed, and reveals atrial paced rhythm at 66 with intraventricular conduction delay CXR Results Lungs are mildly hypoexpanded. Right IJ central venous catheter tip near the cavoatrial junction. No evidence for pneumothorax. There is blunting of the left costophrenic angle suggesting tiny left effusion. Minimal basilar markings more likely due to atelectasis. No overt edema. Dual-lead pacemaker/AICD is again noted. Patient status post sternotomy. Other Results CT scan of the chest and abdomen: Chest: Mild to moderate centrilobular pulmonary emphysema without acute pulmonary infiltrate. No pleural effusions or pericardial effusions. Atherosclerosis and coronary artery disease. Abdomen pelvis: Interval development of a moderate amount of free fluid and free air within the abdomen and pelvis since 07/08/2017 CT scan suggests bowel perforation. There are some inflammatory changes in the right side of the abdomen which could suggest the origin of the bowel perforation. Inflammatory changes extend to the C-loop of the duodenum as well when there is some wall thickening. No CT evidence of acute appendicitis. Echocardiogram 03/15/17: Normal size left ventricle. Moderate concentric left ventricular hypertrophy. Moderately reduced global left ventricular systolic function. Moderately abnormal left ventricular ejection fraction estimated at 25-30%. Abnormal relaxation filling pattern of the left ventricle for age (stage 1 diastolic dysfunction). Mild right ventricular dilatation. Catheter/pacemaker wire in the right ventricular cavity. Not well seen grossly normal. Catheter/pacemaker wire in the right atrial cavity. Trace tricuspid regurgitation. Unable to estimate the right ventricular systolic pressure. Nuclear stress test 04/25/17: A large fixed perfusion abnormality is present involving the entire inferior and inferolateral allen and a portion of the apex. No definite reversible perfusion abnormalities are present. The left ventricular chamber is moderately dilated and ejection fraction is markedly depressed.. Assessment/Plan Assessment/Plan 76-year-old male with history of CAD, ischemic cardiomyopathy, ventricular tachycardia status post defibrillator placement, paroxysmal atrial fibrillation presenting with perforated viscus, status post surgery. The patient is currently unable to take any of his oral medications. Recommendations: * Start metoprolol 2.5 mg IV every 6 hours while unable to take by mouth cardiac medications. This can be increased if needed to maintain heart rate and blood pressure. * Restart by mouth cardiac medications as soon as patient is able to take oral medications. * If significant ventricular tachycardia is seen on telemetry, could consider giving IV amiodarone while unable to take po dofetilide in order to avoid defibrillator shocks secondary to ventricular tachycaredia Consult Acknowledgment - Thank you for your consult request.
--- NOTE | 2017-07-09 19:27 | Acceptance Note - Resident/Int ---
Subjective Background: 76 year old gentleman with duodenal perforation with resultant severe peritonitis with extension behind right colon status post patch for perforated duodenal ulcer and exploration and drainage of retroperitoneal fluid. Currently, intubated and sedated post procedure. ABG : 7.22 / 38 / 118 / 96 on 60%. Review of Systems Constitutional: Reports: see HPI. Objective Last 24 Hrs of Vital Signs/I&O Vital Signs Date Time Temp Pulse Resp B/P B/P Pulse O2 O2 Flow FiO2 Mean Ox Delivery Rate 07/09 1300 92 Nasal 2.0L Cannula 07/09 1300 98.1 92 45 121/62 92 Nasal 2.0L Cannula 07/09 1200 93 24 140/76 91 Nasal 2.0L Cannula 07/09 0930 98.0 88 22 132/70 94 Nasal 2.0L Cannula 07/09 0830 93 Nasal 2.0L Cannula 07/09 0723 98.6 74 24 150/80 95 Room Air 07/09 0550 89 92 07/09 0336 70 92 07/09 0036 70 94 07/08 2123 Room Air 07/08 203 98.4 74 20 140/80 95 Room Air Intake & Output 07/09 1600 07/09 0800 07/09 0000 Intake Total 320 1200 1560 Output Total 110 650 950 Balance 210 550 610 Intake, IV 320 1200 1510 Intake, Oral 0 50 Output, Urine 110 650 950 Patient 266 lb 257 lb Weight Weight Bed scale Reported by Patient Measurement Method Physical Exam General Appearance: Sedated and intubated Cardiovascular: Regular Rate, Normal S1 Lungs: Clear to Auscultation, Normal Air Movement Abdomen: Soft, Drain in place, draining serosanginous fluid. Extremities: No Edema Current Medications: Current Medications Sig/Buck Start time Last Medication Dose Route Stop Time Status Admin Acetaminophen 1,000 MG Q6H PRN 07/09 1900 AC N/A 1 UNIT IV Acetaminophen 1,000 MG Q6H PRN 07/09 1200 DC N/A 1 UNIT IV Acetaminophen 650 MG Q6P PRN 07/08 190 DC PO Ampicillin Sodium/ 3,000 MG Q6 07/08 1945 DC 07/09 Sulbactam Sodium IV 0521 Sodium Chloride 100 ML Aspirin Buffered 81 MG DAILY 07/09 1000 DC PO Atorvastatin Calcium 10 MG 1700 07/09 1700 CAN PO Bisacodyl 10 MG ONCE ONE 07/09 09 DC 07/09 WA 07/09 0901 0900 Bisacodyl 10 MG ONCE ONE 07/08 2030 DC [place] 07/08 2031 Budesonide/ 2 PUF BID 07/09 220 AC Formoterol Fumarate INH Budesonide/ 2 PUF BID 07/08 2200 DC 07/08 Formoterol Fumarate INH 2234 Carvedilol 6.25 MG BID 07/08 220 CAN PO Ceftazidime 1,000 MG Q12 07/09 220 CAN IV Ceftazidime 1,000 MG IQ8 07/09 1600 DC IV Ceftazidime 1,000 MG Q8H 07/09 1300 DC 07/09 IV 1416 Dofetilide 500 MCG BID 07/08 220 DC 07/08 PO 2233 Enoxaparin Sodium 40 MG DAILY 07/08 1846 DC 07/08 SC 2234 Fentanyl Citrate 1,000 MCG Q24H 07/09 1815 AC Dextrose/Water 250 ML IV Insulin Aspart 0 TIDAC 07/10 0800 CAN SC Insulin Aspart 0 TIDAC 07/09 0800 DC SC Insulin Human Regular 0 Q4 07/09 2200 AC SC Meropenem 1 GM IQ8 07/09 1915 AC IV Metronidazole 500 MG Q8H 07/09 1900 AC N/A 1 UNIT IV Metronidazole 500 MG Q8H 07/09 1300 DC 07/09 N/A 1 UNIT IV 1416 Morphine Sulfate 2 MG Q4P PRN 07/09 1900 AC IV Morphine Sulfate 2 MG ONCE ONE 07/09 1900 CAN IV 07/09 1901 Morphine Sulfate 2 MG ONCE ONE 07/09 1245 DC IV 07/09 1246 Morphine Sulfate 0 .STK-MED ONE 07/08 192 DC .ROUTE Morphine Sulfate 2 MG Q4P PRN 07/08 1900 DC 07/09 IV 0100 Nystatin 1 GENE TID 07/09 220 AC TOP Nystatin 1 GENE TID 07/09 0015 DC TOP Oxycodone/ 1 TAB Q6P PRN 07/08 1900 DC Acetaminophen PO Polyethylene Glycol 17 GM ONCE ONE 07/09 0645 DC 07/09 PO 07/09 0646 0645 Polyethylene Glycol 17 GM DAILY 07/08 2030 DC PO Senna 187 MG AT BEDTIME 07/08 2200 DC 07/08 PO 2231 Sodium Chloride 1,000 ML BOLUS ONE 07/09 1900 AC 07/09 IV 07/09 1959 191 Sodium Chloride 1,000 ML Q6H 07/09 1245 DC 07/09 IV 07/09 1844 1415 Sodium Chloride 1,000 ML Q20H 07/09 1015 DC IV 07/10 1614 Sodium Chloride 1,000 ML BOLUS ONE 07/09 0145 DC 07/09 IV 07/09 0344 0144 Vancomycin HCl 1,500 MG ONCE ONE 07/09 181 AC 07/09 Sodium Chloride 250 ML IV 07/09 1944 191 Last 24 Hrs of Lab/Les Results Last 24 Hrs of Labs/Mics: Laboratory Tests 07/09/17 190: pH Pending, pCO2 Pending, pO2 Pending, HCO3 Pending, ABG O2 Sat (Measured) Pending, P-50 (Temp Corrected) Pending, Carboxyhemoglobin Pending, O2 Concentration % Pending, Temperature Pending, Respiration Rate Pending, O2 Delivery Method Pending, Vent Mode Pending, Expiratory Pressure Pending, Tidal Volume Pending, Pressure Support Pending, Phlebotomy Draw Site Pending 07/09/17 1320: Lactic Acid 11.0 H 07/09/17 1320: Anion Gap 24 H, Estimated GFR 39 L, Glucose 312 H, Calcium 9.5, Phosphorus 4.1, Magnesium 1.9, Total Bilirubin 1.2, AST 26, ALT 19 L, Troponin I 0.03, Albumin 3.8, PT 14.5 H, INR 1.39 H, CBC w Diff MAN DIFF ORDERED, RBC 6.39 H, MCV 88.5, MCH 28.0, RDW 15.8 H, MPV 10.7 H, Gran % 61.7, Lymphocytes % 32.4, Monocytes % 5.6, Eosinophils % 0, Basophils % 0.3, Absolute Granulocytes 8.7 H, Segmented Neutrophils 31 L, Band Neutrophils 24 H, Absolute Lymphocytes 4.6 H , Lymphocytes 39, Monocytes 6, Absolute Monocytes 0.8 H, Absolute Eosinophils 0 , Absolute Basophils 0, Platelet Estimate VERIFIED BY SMEAR, Polychromasia 1+, Anisocytosis 1+, PUBS MCHC 31.6 L 07/09/17 1149: Troponin I Cancelled 07/09/17 1100: Lactic Acid Cancelled 07/09/17 0733: Lactic Acid 6.8 H 07/09/17 0733: Anion Gap 22 H, Estimated GFR > 60, BUN/Creatinine Ratio 22.0, CBC w Diff MAN DIFF ORDERED, RBC 5.55, MCV 88.0, MCH 29.0, RDW 16.0 H, MPV 10.0, Gran % 67.9, Lymphocytes % 26.5, Monocytes % 5.4, Eosinophils % 0, Basophils % 0.2, Absolute Granulocytes 9.5 H, Segmented Neutrophils 47, Band Neutrophils 24 H, Absolute Lymphocytes 3.7 H, Lymphocytes 24, Monocytes 5, Absolute Monocytes 0.8 H, Absolute Eosinophils 0, Absolute Basophils 0, Platelet Estimate VERIFIED BY SMEAR, Polychromasia 1+, Anisocytosis 1+, PUBS MCHC 32.9 L 07/09/17 0515: Lactic Acid 3.4 H 07/09/17 0045: Troponin I < 0.01 07/09/17 0045: Lactic Acid 3.8 H Microbiology 07/09 1705 BODY FLUID: Body Fluid Culture - RECD 07/09 1705 BODY FLUID: Gram Stain - RECD 07/09 1410 GI: Surveillance Culture - RECD 07/09 1300 UPPER RESP: Surveillance Culture - RECD 07/08 2340 NASOPHARYN: Influenza Virus A & B Rapid Smear - COMP Assessment/Plan Assessment: 76 year old gentleman with duodenal perforation with resultant severe peritonitis with extension behind right colon status post patch for perforated duodenal ulcer and exploration and drainage of retroperitoneal fluid. Currently, intubated and sedated post procedure. Plan: Continue mechanical ventilation (600/16/60/5) and sedation with Fentanyl, propofol if needed. Repeat ABG @ 2300. [7.22 / 38 / 118 / 96 on 60%] Agressive resuscitation. Bolus 1 L x 2. Maintenance at 150 cc an hour. Goal CVP 8-10. Protonix drip. Continue antibiotics, per surgery and ID. Bood cx x 2. Accuchecks q2, NPO scale. Insulin drip if needed. Stat CBC, ICU bundle, Troponin, EKG, lactic acid. Stat CXR. Cardiology evaluation. Low EF, AICD in place. Tikosyn on hold. Nephew, Mr. Max Walls updated about patient's current critical situtation. Full code. Problem List: 1. Perforated viscus Pain Ratin (Sedated) Pain Location: Abdomen Pain Goal: Pain 4 or less Pain Plan: Fentanyl Tomorrow's Labs & Rationales: S/p post surgery
--- NOTE | 2017-07-09 20:10 | RADIOLOGY REPORT ---
EXAMINATION: XR PORTABLE CHEST CLINICAL INFORMATION: Intubated COMPARISON: 07/09/2017 chest x-ray at 3:45 PM TECHNIQUE: Portable AP supine view of the chest was obtained. FINDINGS: Hypoventilatory exam. The patient's head is rotated toward the left side. Cardiac EKG leads are overlying the chest. There is a dual lead left subclavian approach cardiac pacer in place, unchanged in position with leads projecting over the right atrium and right ventricle. An endotracheal tube is in place, its tip is located about 4 cm from the nipple. A right IJ central venous catheter is in place with its tip projecting over the caval atrial junction, unchanged in position. There seems to be an enteric tube in place, however I am unable to locate the distal part of this tube in the thorax and abdomen. There is opacity in the left costophrenic angle. The lungs are otherwise clear. No pneumothorax. The cardiomediastinal silhouette is stable. Post CABG changes seen. Median sternotomy wires are in place. IMPRESSION: Suboptimal exam. Tubes and catheters as above. A small opacity in the left costophrenic angle. Otherwise no acute pulmonary findings.
[2017-07-09 20:53] LABS: ABSOLUTE BASOPHIL COUNT 0 /CUMM (0.0-0.2); ABSOLUTE EOSINOPHIL COUNT 0 /CUMM (0.0-0.7); ABSOLUTE GRANULOCYTE CT 6.8 /CUMM (1.4-6.5); ABSOLUTE LYMPH COUNT 5.4 /CUMM (1.2-3.4); ABSOLUTE MONOCYTE COUNT 1.3 /CUMM (0.10-0.60); BASOPHIL % 0 % (0.0-2.0); EOSINOPHIL % 0 % (0-5); GRANULOCYTE % 50.1 % (42.2-75.2); MEAN CORPUSCULAR HGB 28.3 PG (27.0-31.0); MEAN CORPUSCULAR HGB CONC 32.2 G/DL (33.0-37.0); MEAN CORPUSCULAR VOLUME 87.9 FL (80.0-94.0); RBC DISTRIBUTION WIDTH 16.1 % (11.5-14.5); RED BLOOD CELL CT 5.63 /CUMM (4.70-6.10); WHITE BLOOD CELL COUNT 13.5 /CUMM (4.8-10.8)
--- NOTE | 2017-07-09 21:31 | PN- General Surgery ---
Subjective Subjective: Pt is now s/p exploratory laparotomy and tono patch repair of perforated duodenal ulcer. He was transferred back to the ICU intubated. RIJ triple lumen catheter and R radial arterial line have been placed. Pt is on a fentanyl gtt for sedation and levophed to maintain pressure. Objective Vital Signs and I&Os Vital Signs Date Time Temp Pulse Resp B/P B/P Pulse O2 O2 Flow FiO2 Mean Ox Delivery Rate 07/09 1835 60 07/09 1300 92 Nasal 2.0L Cannula 07/09 1300 98.1 92 45 121/62 92 Nasal 2.0L Cannula 07/09 1200 93 24 140/76 91 Nasal 2.0L Cannula 07/09 0930 98.0 88 22 132/70 94 Nasal 2.0L Cannula 07/09 0830 93 Nasal 2.0L Cannula 07/09 0723 98.6 74 24 150/80 95 Room Air 07/09 0550 89 92 07/09 0336 70 92 07/09 0036 70 94 07/08 2123 Room Air Intake & Output 07/09 1600 07/09 0800 07/09 0000 07/08 1600 07/08 0800 07/08 0000 Intake Total 320 1200 1560 Output Total 110 650 950 Balance 210 550 610 Intake, IV 320 1200 1510 Intake, Oral 0 50 Output, Urine 110 650 950 Patient 266 lb 257 lb 157 lb Weight Weight Bed scale Reported by Patient Reported by Patient Measurement Method Physical Exam: Vitals: T 97.9, HR 100s, BP 80s-90s/50s, sat 98% I/Os: Urine output 100 OR + 50 pacu +10 past 30 minutes. WILLEM output 220 since surgery. General: Pt remains intubated and sedated. Cardiac: regular, tachy. Pulm: CTA anterior bilateral flor. R IJ tlc in place. Abdomen: Distended. Midline dressing is clean and intact. WILLEM output is dark bilious/serosanginous. Assessment/Plan Assessment/Plan Pt is a 76yo M with a hx of obstructive sleep apnea, COPD, hypertension, diabetes mellitus, CAD, status post CABG in 1998 with ischemic cardiomyopathy, paroxysmal atrial fibrillation who was admitted yesterday for presumed UTI. He developed acute onset of diffuse abdominal pain with associated tachypnea and lactic acidosis. CT revealed perforated viscus and pt underwent exploratory laparotomy with tono patch repair of duodenal ulcer. Recommendations: -ICU admission as pt remains intubated. -NPO/NGT. Please DO NOT irrigate or put meds through NGT. -Meropenem for peritonitis. -IV fentanyl for sedation. -Pt needs aggressive IVF hydration. Please monitor urine output and CVPs. -Levo titrated to maintain BP >90. -IV protonix for GI ppx. -Medical managment per primary team. -DVT ppx with lovenox.
[2017-07-09 22:01] LABS: HEMATOCRIT 49.5 % (42-52); MEAN PLATELET VOLUME ND FL (7.4-10.4)
[2017-07-09 22:02] LABS: PLATELET COUNT ND /CUMM (130-400)
--- NOTE | 2017-07-09 22:26 | PN- Att Addend ---
Attending Addendum Attending Brief Note 76-year-old male who was transferred to the ICU for concerns of bowel perforation, was taken to the OR this evening and was found to have duodenal perforation with extensive peritonitis, underwent Fabrizio patch for the perforated ulcer. Patient was brought to the ICU intubated, sedated on fentanyl drip, and hypotensive SBP 80's on Levophed with CVP ~2. He has a right triple lumen and a WILLEM drain to his abdomen. He has a Duvall that is draining minimal urine. Vitals: afebrile, HR 90-100's, SBP 80-90's (arterial line), sats 97-98% on FiO2 60% intubated. Exam: Intubated and sedated, PERRL, Skin warm and dry, Capillary refill ~ 2 secs, Neck supple, Chest b/l clear, Heart S1S2 regular, systolic murmur+, Abd soft, distended, dressing+. WILLEM drain+. LE: no edema. Labs: WBC 13.5, H/H 15.9/49.5, platelets adequate, bands 23, Na 141, bicarbonate 14, BUN 36, creatinine 2.2 (from 1.7), lactic acid 4.3 (from 11), glucose 233, calcium 7.1, phosphorus 5, troponin 0.05. ABG 7.22/38/118/15. - ABG and repeat labs showed severe metabolic acidosis with lactic acidosis and worsening USMAN. We have him on the following vent settings (600/16/60/5), will repeat ABG overnight. - NPO, NGT to drain, no meds through NG tube. - Patient received 3 L NS in the OR, we gave him additional 3 L bolus and continued maintenance at 150/hr for a CVP ~ 8. Levophed to keep a MAP > 65 mmHg. Monitor urine output. - Please note patient has an EF of approximately 25% with diastolic dysfunction. Cardiology on board. IV metoprolol as needed for tachycardia as patient is off his cardiac meds (tikosyn). If needed can consider Amiodarone. - We will obtain a postop EKG and CXR. - Continue Protonix drip. Fentanyl for sedation. - Antibiotics broadened to meropenem and flagyl, one dose of Vancomycin was given earlier. We will consult ID in a.m. - Repeat labs at midnight and in a.m. Trend lactic acid and renal functions. - DVT prophylaxis with heparin subcutaneous. His condition remains critical and nephew has been updated by the resident. Dr. Douglas will be updated and he will consult in AM. Update 2 AM: Repeat labs at midnight showed worsening renal failure with metabolic acidosis/ lactic acidosis with hyperkalemia, nephrology was consulted and sodium bicarbonate drip was initiated. SBP remains in high 90-100's on levophed, CVP ~ 8 with urine ouput about 5 cc/hr. TTS > 55 mins
[2017-07-10] VITALS: BP 96/64
[2017-07-10 00:40] LABS: ABSOLUTE BASOPHIL COUNT 0 /CUMM (0.0-0.2); ABSOLUTE EOSINOPHIL COUNT 0 /CUMM (0.0-0.7); ABSOLUTE GRANULOCYTE CT 8.3 /CUMM (1.4-6.5); ABSOLUTE LYMPH COUNT 4.9 /CUMM (1.2-3.4); ABSOLUTE MONOCYTE COUNT 0.9 /CUMM (0.10-0.60); BASOPHIL % 0.1 % (0.0-2.0); EOSINOPHIL % 0 % (0-5); GRANULOCYTE % 58.6 % (42.2-75.2); HEMATOCRIT 50.3 % (42-52); MEAN CORPUSCULAR HGB 28.3 PG (27.0-31.0); MEAN CORPUSCULAR HGB CONC 32.3 G/DL (33.0-37.0); MEAN CORPUSCULAR VOLUME 87.4 FL (80.0-94.0); MEAN PLATELET VOLUME 9.2 FL (7.4-10.4); RBC DISTRIBUTION WIDTH 15.9 % (11.5-14.5); RED BLOOD CELL CT 5.76 /CUMM (4.70-6.10); WHITE BLOOD CELL COUNT 14.1 /CUMM (4.8-10.8)
[2017-07-10 01:15] LABS: PLATELET COUNT 202 /CUMM (130-400)
[2017-07-10 05:43] LABS: ABSOLUTE BASOPHIL COUNT 0.1 /CUMM (0.0-0.2); ABSOLUTE EOSINOPHIL COUNT 0 /CUMM (0.0-0.7); BASOPHIL % 0.4 % (0.0-2.0); EOSINOPHIL % 0.1 % (0-5); MEAN CORPUSCULAR HGB 28.4 PG (27.0-31.0)
--- NOTE | 2017-07-10 05:53 | PN- General Surgery ---
See Addendum Subjective Subjective: No acute events overnight. Pt was started on a bicarb gtt. He remains on fentanyl and levo 6mcg. His BP has been in the 90s-100s/50s-70s throughout the night. Per nursing reports, WILLEM consistency became thicker and output increased overnight. Objective Vital Signs and I&Os Vital Signs Date Time Temp Pulse Resp B/P B/P Pulse O2 O2 Flow FiO2 Mean Ox Delivery Rate 07/10 0304 40 07/10 0216 97.9 113 32 108/60 07/10 0049 40 07/10 0000 96 Ventilator 40% 07/09 2210 50 07/09 1835 60 07/09 1300 92 Nasal 2.0L Cannula 07/09 1300 98.1 92 45 121/62 92 Nasal 2.0L Cannula 07/09 1200 93 24 140/76 91 Nasal 2.0L Cannula 07/09 0930 98.0 88 22 132/70 94 Nasal 2.0L Cannula 07/09 0830 93 Nasal 2.0L Cannula 07/09 0723 98.6 74 24 150/80 95 Room Air 07/09 0550 89 92 Intake & Output 07/10 0800 07/10 0000 07/09 1600 07/09 0800 07/09 0000 07/08 1600 Intake Total 320 1200 1560 Output Total 110 650 950 Balance 210 550 610 Intake, IV 320 1200 1510 Intake, Oral 0 50 Output, Urine 110 650 950 Patient 266 lb 257 lb 157 lb Weight Weight Bed scale Reported by Patient Reported by Patient Measurement Method Physical Exam: Vitals: T100, hr 100s-110s (sinus tachy), R30-32, BP 90s-100s/50s-60s, sat 96% AC16/600/40%/5peep, CVP 10 I/Os: IVF in: 7L total Urine Output: 5-11/hour overnight. (137 since OR + 100 in OR) NGT: 200 per shift (400 total since OR) WILLEM output: 60-150/hour overnight. (Total 790 since OR) General: Pt remains intubated and sedated. Cardiac: regular, tachy. Pulm: CTA anterior bilateral flor. R IJ tlc in place. Abdomen: Distended, but less vs preop. Midline dressing is intact with a small amount of drainage. WILLEM output is dark bilious, less serous vs last night. It now appears more like straight bile vs. irrigation. Results Last 48 Hours of Labs: Laboratory Tests 07/10 07/10 07/10 07/10 07/10 0555 0500 0500 0230 0230 Blood Gas pH (7.35 - 7.45 PH) 7.41 pCO2 (35 - 45 TORR) 27 L pO2 (80 - 100 TORR) 93 HCO3 (21 - 28 MEQ/L) 17 L ABG O2 Sat (Measured) (>96.0 %) 97.0 P-50 (Temp Corrected) N Carboxyhemoglobin (1.5 - 5.0 %) 0.6 L O2 Concentration % .40 Respiration Rate (BPM) 16 O2 Delivery Method VENT Vent Mode A/C Expiratory Pressure (CMH2O/P) 5 Tidal Volume (CC) 600 Chemistry Sodium (137 - 145 mmol/L) 141 Potassium (3.5 - 5.1 mmol/L) 4.8 5.0 Chloride (98 - 107 mmol/L) 114 H Carbon Dioxide (22 - 30 mmol/L) 14 L Anion Gap (5 - 16) 13 BUN (9 - 20 mg/dL) 45 H Creatinine (0.7 - 1.2 mg/dL) 3.2 H Estimated GFR (>60 ml/min) 19 L Glucose (65 - 99 mg/dL) 268 H Lactic Acid (0.7 - 2.1 mmol/L) 4.1 H 4.4 H Calcium (8.4 - 10.2 mg/dL) 6.8 L Phosphorus (2.5 - 4.5 mg/dL) 3.7 Magnesium (1.6 - 2.3 mg/dL) 1.8 Total Bilirubin (0.2 - 1.3 mg/dL) 0.6 AST (17 - 59 U/L) 22 ALT (21 - 72 U/L) 27 Albumin (3.5 - 5.0 g/dL) 1.8 L Hematology CBC w Diff Pending WBC Pending RBC Pending Hgb Pending Hct Pending MCV Pending MCH Pending RDW Pending Plt Count Pending MPV Pending Gran % Pending Lymphocytes % Pending Monocytes % Pending Eosinophils % Pending Basophils % Pending Absolute Granulocytes Pending Absolute Lymphocytes Pending Absolute Monocytes Pending Absolute Eosinophils Pending Absolute Basophils Pending PUBS MCHC Pending Miscellaneous Phlebotomy Draw Site [place] 07/10 07/09 07/09 0020 2694 0346 Blood Gas pH (7.35 - 7.45 PH) 7.34 L pCO2 (35 - 45 TORR) 25 L pO2 (80 - 100 TORR) 124 H HCO3 (21 - 28 MEQ/L) 13 L ABG O2 Sat (Measured) (>96.0 %) 97.0 P-50 (Temp Corrected) N Carboxyhemoglobin (1.5 - 5.0 %) 0.8 L O2 Concentration % 50% Temperature (97.0 - 100.0 FARH) 99.6 Respiration Rate (BPM) 16 O2 Delivery Method ESPRIT Vent Mode AC Expiratory Pressure (CMH2O/P) 5 Tidal Volume (CC) 600 Chemistry Sodium (137 - 145 mmol/L) 141 Potassium (3.5 - 5.1 mmol/L) 5.5 H Chloride (98 - 107 mmol/L) 113 H Carbon Dioxide (22 - 30 mmol/L) 13 L Anion Gap (5 - 16) 15 BUN (9 - 20 mg/dL) 42 H Creatinine (0.7 - 1.2 mg/dL) 2.6 H Estimated GFR (>60 ml/min) 24 L Glucose (65 - 99 mg/dL) 240 H Lactic Acid (0.7 - 2.1 mmol/L) 4.1 H Calcium (8.4 - 10.2 mg/dL) 7.1 L Phosphorus (2.5 - 4.5 mg/dL) 4.6 H Magnesium (1.6 - 2.3 mg/dL) 1.9 Total Bilirubin (0.2 - 1.3 mg/dL) 0.8 AST (17 - 59 U/L) 24 ALT (21 - 72 U/L) 22 Troponin I (<0.11 ng/ml) 0.05 Albumin (3.5 - 5.0 g/dL) 2.2 L Hematology CBC w Diff MAN DIFF ORDERED WBC (4.8 - 10.8 /CUMM) 14.1 H RBC (4.70 - 6.10 /CUMM) 5.76 Hgb (14.0 - 18.0 G/DL) 16.3 Hct (42 - 52 %) 50.3 MCV (80.0 - 94.0 FL) 87.4 MCH (27.0 - 31.0 PG) 28.3 RDW (11.5 - 14.5 %) 15.9 H Plt Count (130 - 400 /CUMM) 202 MPV (7.4 - 10.4 FL) 9.2 Gran % (42.2 - 75.2 %) 58.6 Lymphocytes % (20.5 - 51.1 %) 34.9 Monocytes % (1.7 - 9.3 %) 6.4 Eosinophils % (0 - 5 %) 0 Basophils % (0.0 - 2.0 %) 0.1 Absolute Granulocytes (1.4 - 6.5 /CUMM) 8.3 H Segmented Neutrophils (42.2 - 75.2 %) 24 L Band Neutrophils (0.0 - 5.0 %) 17 H Absolute Lymphocytes (1.2 - 3.4 /CUMM) 4.9 H Lymphocytes (20.5 - 51.1 %) 53 H Monocytes (1.7 - 9.3 %) 5 Absolute Monocytes (0.10 - 0.60 /CUMM) 0.9 H Absolute Eosinophils (0.0 - 0.7 /CUMM) 0 Absolute Basophils (0.0 - 0.2 /CUMM) 0 Metamyelocytes (0.0 - 1.0 %) 1 Platelet Estimate (ADEQUATE) ADEQUATE Normocytic RBCs VERIFIED Normochromic RBCs VERIFIED PUBS MCHC (33.0 - 37.0 G/DL) 32.3 L Miscellaneous Phlebotomy Draw Site [place] 07/09 Chemistry Sodium (137 - 145 mmol/L) 141 Potassium (3.5 - 5.1 mmol/L) 5.0 Chloride (98 - 107 mmol/L) 112 H Carbon Dioxide (22 - 30 mmol/L) 14 L Anion Gap (5 - 16) 15 BUN (9 - 20 mg/dL) 36 H Creatinine (0.7 - 1.2 mg/dL) 2.2 H Estimated GFR (>60 ml/min) 29 L Glucose (65 - 99 mg/dL) 233 H Lactic Acid (0.7 - 2.1 mmol/L) Cancelled 4.3 H Calcium (8.4 - 10.2 mg/dL) 7.1 L Phosphorus (2.5 - 4.5 mg/dL) 5.0 H Magnesium (1.6 - 2.3 mg/dL) 1.8 Total Bilirubin (0.2 - 1.3 mg/dL) 0.7 AST (17 - 59 U/L) 24 ALT (21 - 72 U/L) 29 Troponin I (<0.11 ng/ml) 0.05 Albumin (3.5 - 5.0 g/dL) 2.2 L Hematology CBC w Diff MAN DIFF ORDERED WBC (4.8 - 10.8 /CUMM) 13.5 H RBC (4.70 - 6.10 /CUMM) 5.63 Hgb (14.0 - 18.0 G/DL) 15.9 Hct (42 - 52 %) 49.5 MCV (80.0 - 94.0 FL) 87.9 MCH (27.0 - 31.0 PG) 28.3 RDW (11.5 - 14.5 %) 16.1 H Plt Count (130 - 400 /CUMM) ND MPV (7.4 - 10.4 FL) ND Gran % (42.2 - 75.2 %) 50.1 Lymphocytes % (20.5 - 51.1 %) 40.2 Monocytes % (1.7 - 9.3 %) 9.7 H Eosinophils % (0 - 5 %) 0 Basophils % (0.0 - 2.0 %) 0 Absolute Granulocytes (1.4 - 6.5 /CUMM) 6.8 H Segmented Neutrophils (42.2 - 75.2 %) 27 L Band Neutrophils (0.0 - 5.0 %) 23 H Absolute Lymphocytes (1.2 - 3.4 /CUMM) 5.4 H Lymphocytes (20.5 - 51.1 %) 39 Monocytes (1.7 - 9.3 %) 7 Absolute Monocytes (0.10 - 0.60 /CUMM) 1.3 H Absolute Eosinophils (0.0 - 0.7 /CUMM) 0 Absolute Basophils (0.0 - 0.2 /CUMM) 0 Metamyelocytes (0.0 - 1.0 %) 4 H Platelet Estimate (ADEQUATE) ADEQUATE Anisocytosis 1+ PUBS MCHC (33.0 - 37.0 G/DL) 32.2 L Other Body Source Fld Total RBCs Counted (%) 100 07/09 07/09 07/09 1905 1320 1320 Blood Gas pH (7.35 - 7.45 PH) 7.22 *L pCO2 (35 - 45 TORR) 38 pO2 (80 - 100 TORR) 118 H HCO3 (21 - 28 MEQ/L) 15 L ABG O2 Sat (Measured) (>96.0 %) 96.0 P-50 (Temp Corrected) N Carboxyhemoglobin (1.5 - 5.0 %) 1.0 L O2 Concentration % 60 Temperature (97.0 - 100.0 FARH) 98.1 Respiration Rate (BPM) 16 O2 Delivery Method ESPRIT Vent Mode AC Expiratory Pressure (CMH2O/P) 5 Tidal Volume (CC) 600 Chemistry Sodium (137 - 145 mmol/L) 143 Potassium (3.5 - 5.1 mmol/L) 4.6 Chloride (98 - 107 mmol/L) 107 Carbon Dioxide (22 - 30 mmol/L) 12 L Anion Gap (5 - 16) 24 H BUN (9 - 20 mg/dL) 27 H Creatinine (0.7 - 1.2 mg/dL) 1.7 H Estimated GFR (>60 ml/min) 39 L Glucose (65 - 99 mg/dL) 312 H Lactic Acid (0.7 - 2.1 mmol/L) 11.0 H Calcium (8.4 - 10.2 mg/dL) 9.5 Phosphorus (2.5 - 4.5 mg/dL) 4.1 Magnesium (1.6 - 2.3 mg/dL) 1.9 Total Bilirubin (0.2 - 1.3 mg/dL) 1.2 AST (17 - 59 U/L) 26 ALT (21 - 72 U/L) 19 L Troponin I (<0.11 ng/ml) 0.03 Albumin (3.5 - 5.0 g/dL) 3.8 Coagulation PT (9.4 - 12.5 SEC) 14.5 H INR (0.90 - 1.17) 1.39 H Hematology CBC w Diff MAN DIFF ORDERED WBC (4.8 - 10.8 /CUMM) 14.2 H RBC (4.70 - 6.10 /CUMM) 6.39 H Hgb (14.0 - 18.0 G/DL) 17.9 Hct (42 - 52 %) 56.5 H MCV (80.0 - 94.0 FL) 88.5 MCH (27.0 - 31.0 PG) 28.0 RDW (11.5 - 14.5 %) 15.8 H Plt Count (130 - 400 /CUMM) 200 MPV (7.4 - 10.4 FL) 10.7 H Gran % (42.2 - 75.2 %) 61.7 Lymphocytes % (20.5 - 51.1 %) 32.4 Monocytes % (1.7 - 9.3 %) 5.6 Eosinophils % (0 - 5 %) 0 Basophils % (0.0 - 2.0 %) 0.3 Absolute Granulocytes (1.4 - 6.5 /CUMM) 8.7 H Segmented Neutrophils (42.2 - 75.2 %) 31 L Band Neutrophils (0.0 - 5.0 %) 24 H Absolute Lymphocytes (1.2 - 3.4 /CUMM) 4.6 H Lymphocytes (20.5 - 51.1 %) 39 Monocytes (1.7 - 9.3 %) 6 Absolute Monocytes (0.10 - 0.60 /CUMM) 0.8 H Absolute Eosinophils (0.0 - 0.7 /CUMM) 0 Absolute Basophils (0.0 - 0.2 /CUMM) 0 Platelet Estimate (ADEQUATE) VERIFIED BY SMEAR Polychromasia 1+ Anisocytosis 1+ PUBS MCHC (33.0 - 37.0 G/DL) 31.6 L Miscellaneous Phlebotomy Draw Site [place] 07/09 07/09 07/09 1149 1100 0733 Chemistry Lactic Acid (0.7 - 2.1 mmol/L) Cancelled 6.8 H Troponin I Cancelled 07/09 07/09 07/09 0733 0515 0045 Chemistry Sodium (137 - 145 mmol/L) 144 Potassium (3.5 - 5.1 mmol/L) 4.4 Chloride (98 - 107 mmol/L) 106 Carbon Dioxide (22 - 30 mmol/L) 16 L Anion Gap (5 - 16) 22 H BUN (9 - 20 mg/dL) 22 H Creatinine (0.7 - 1.2 mg/dL) 1.0 Estimated GFR (>60 ml/min) > 60 BUN/Creatinine Ratio (7 - 25 %) 22.0 Lactic Acid (0.7 - 2.1 mmol/L) 3.4 H Troponin I (<0.11 ng/ml) < 0.01 Hematology CBC w Diff MAN DIFF ORDERED WBC (4.8 - 10.8 /CUMM) 14.0 H RBC (4.70 - 6.10 /CUMM) 5.55 Hgb (14.0 - 18.0 G/DL) 16.1 Hct (42 - 52 %) 48.9 MCV (80.0 - 94.0 FL) 88.0 MCH (27.0 - 31.0 PG) 29.0 RDW (11.5 - 14.5 %) 16.0 H Plt Count (130 - 400 /CUMM) 178 MPV (7.4 - 10.4 FL) 10.0 Gran % (42.2 - 75.2 %) 67.9 Lymphocytes % (20.5 - 51.1 %) 26.5 Monocytes % (1.7 - 9.3 %) 5.4 Eosinophils % (0 - 5 %) 0 Basophils % (0.0 - 2.0 %) 0.2 Absolute Granulocytes (1.4 - 6.5 /CUMM) 9.5 H Segmented Neutrophils (42.2 - 75.2 %) 47 Band Neutrophils (0.0 - 5.0 %) 24 H Absolute Lymphocytes (1.2 - 3.4 /CUMM) 3.7 H Lymphocytes (20.5 - 51.1 %) 24 Monocytes (1.7 - 9.3 %) 5 Absolute Monocytes (0.10 - 0.60 /CUMM) 0.8 H Absolute Eosinophils (0.0 - 0.7 /CUMM) 0 Absolute Basophils (0.0 - 0.2 /CUMM) 0 Platelet Estimate (ADEQUATE) VERIFIED BY SMEAR Polychromasia 1+ Anisocytosis 1+ PUBS MCHC (33.0 - 37.0 G/DL) 32.9 L 07/09 07/08 07/08 0045 1736 1524 Chemistry Sodium (137 - 145 mmol/L) 140 Potassium (3.5 - 5.1 mmol/L) 4.1 Chloride (98 - 107 mmol/L) 104 Carbon Dioxide (22 - 30 mmol/L) 19 L Anion Gap (5 - 16) 17 H BUN (9 - 20 mg/dL) 21 H Creatinine (0.7 - 1.2 mg/dL) 0.9 Estimated GFR (>60 ml/min) > 60 BUN/Creatinine Ratio (7 - 25 %) 23.3 Glucose (65 - 99 mg/dL) 199 H Lactic Acid (0.7 - 2.1 mmol/L) 3.8 H Cancelled 3.6 H Calcium (8.4 - 10.2 mg/dL) 9.6 Magnesium (1.6 - 2.3 mg/dL) 1.8 Total Bilirubin (0.2 - 1.3 mg/dL) 1.4 H Direct Bilirubin (< 0.4 mg/dL) 0.7 H AST (17 - 59 U/L) 26 ALT (21 - 72 U/L) 25 Alkaline Phosphatase (< 127 U/L) 89 Creatine Kinase (55 - 170 U/L) 103 Troponin I (<0.11 ng/ml) 0.02 Iah-H-Igfvrrzjket Pept (<125 pg/mL) 1540 H Total Protein (6.3 - 8.2 g/dL) 6.8 Albumin (3.5 - 5.0 g/dL) 3.9 Globulin (1.9 - 4.2 gm/dL) 2.9 Albumin/Globulin Ratio (1.1 - 2.2 %) 1.3 Coagulation PT (9.4 - 12.5 SEC) 14.8 H INR (0.90 - 1.17) 1.41 H APTT (25 - 37 SEC) 29 Hematology CBC w Diff NO MAN DIFF REQ WBC (4.8 - 10.8 /CUMM) 15.2 H RBC (4.70 - 6.10 /CUMM) 5.18 Hgb (14.0 - 18.0 G/DL) 14.7 Hct (42 - 52 %) 44.9 MCV (80.0 - 94.0 FL) 86.7 MCH (27.0 - 31.0 PG) 28.4 RDW (11.5 - 14.5 %) 15.8 H Plt Count (130 - 400 /CUMM) 137 MPV (7.4 - 10.4 FL) 9.0 Gran % (42.2 - 75.2 %) 81.8 H Lymphocytes % (20.5 - 51.1 %) 10.1 L Monocytes % (1.7 - 9.3 %) 8.0 Eosinophils % (0 - 5 %) 0 Basophils % (0.0 - 2.0 %) 0.1 Absolute Granulocytes (1.4 - 6.5 /CUMM) 12.4 H Absolute Lymphocytes (1.2 - 3.4 /CUMM) 1.5 Absolute Monocytes (0.10 - 0.60 /CUMM) 1.2 H Absolute Eosinophils (0.0 - 0.7 /CUMM) 0 Absolute Basophils (0.0 - 0.2 /CUMM) 0 PUBS MCHC (33.0 - 37.0 G/DL) 32.8 L 07/08 07/08 1510 1449 Chemistry Lus-K-Jruxsghjury Pept Cancelled Urines Urine Color (YEL,AMB,STR) YEL Urine Clarity (CLEAR) HAZY H Urine pH (5.0 - 8.0) 6.0 Ur Specific [place] (1.001 - 1.035) >= 1.030 Urine Protein (NEG,<30 MG/DL) 100 H Urine Ketones (NEG) 15 H Urine Nitrite (NEG) POS H Urine Bilirubin (NEG) NEG Urine Urobilinogen (0.1 - 1.0 EU/dl) 0.2 Ur Leukocyte Esterase (NEG) MOD H Ur Microscopic SEDIMENT EXAMINED Urine RBC (0 - 5 /HPF) 50-75 H Urine WBC (0 - 2 /HPF) 25-50 H Ur Epithelial Cells (NONE,FEW) FEW Urine Bacteria (NEG/NONE) MANY H Urine Hemoglobin (NEG) LARGE H Urine Glucose (N MG/DL) NEG 07/08 1437 Chemistry Magnesium Cancelled Assessment/Plan Assessment/Plan Pt is a 76yo M with a hx of obstructive sleep apnea, COPD, hypertension, diabetes mellitus, CAD, status post CABG in 1998 with ischemic cardiomyopathy, paroxysmal atrial fibrillation who was admitted yesterday for presumed UTI. He developed acute onset of diffuse abdominal pain with associated tachypnea and lactic acidosis. CT revealed perforated viscus and pt underwent exploratory laparotomy with tono patch repair of duodenal ulcer. Now POD #1 Recommendations: -NPO/NGT. Please DO NOT irrigate or put meds through NGT. -WILLEM output consistency is now more like actual bile vs. irrigation. We will continue to monitor. Dr. Trimble will be notified. -Pt needs aggressive IVF hydration. Please monitor urine output and CVPs. -Meropenem for peritonitis. -IV fentanyl for sedation. -Levo titrated to maintain BP >90. -Agree with bicarb gtt. -Monitor lytes. Lactic acid improving. -IV protonix for GI ppx. -Medical managment per primary team. -DVT ppx with lovenox.
[2017-07-10 08:00] VITALS: BP 70/0
--- NOTE | 2017-07-10 08:14 | PN- Resident CRCU ---
Subjective HPI/CRCU Issues: - Septic shock 2/2 perforated duodenal ulcer s/p Fabrizio patch POD Day #1 currently on Levophed - Metabolic acidosis - DM - CAD s/p CABG - HFrEF with EF of 25% s/p AICD - PAF on Tikosyn not on AC - USMAN 2/2 ATN from septic shock - Acute respiratory failure curently intubated 24 Hour Events: Patient seen and examined at bedside. He was trasnferred from the floor yeaterday after he was found to have a perforated duodenal ulcer. He was taken to the OR and underwent a Fabrizio patch.Postoperatively, he remains intubated and in septic shock 2/2 peritonitis, with profound metabolic acidosis and received sodium bicarb. This morning he remains intubated and on Fentanyl, Levophed, and Protonix drip. Overnight he received a dose of Vanc, Flagyl and Meropenem and 4.0 liters of NS bolus. Vitals Tmax: 100F. NSR-ST; HR: 96-113; BP 94-109/54-60; Ventilator settings AC: 16; T. Vol: 600mls; FiO2: 40% PEEP: 5; pH this AM: 7.41; pCo2: 27; pO2: 93%. Objective Vital Signs & I&O Last 8 Hrs of Vitals and I&O: Vital Signs Date Time Temp Pulse Resp B/P B/P Pulse O2 O2 Flow FiO2 Mean Ox Delivery Rate 07/10 0605 40 07/10 0304 40 07/10 0216 97.9 113 32 108/60 07/10 0049 40 07/10 0000 97.9 102 32 96/64 96 Ventilator 40% 07/10 0000 96 Ventilator 40% 07/09 2210 50 07/09 2030 97 Ventilator 50% 07/09 1835 60 07/09 1300 92 Nasal 2.0L Cannula 07/09 1300 98.1 92 45 121/62 92 Nasal 2.0L Cannula 07/09 1200 93 24 140/76 91 Nasal 2.0L Cannula 07/09 0930 98.0 88 22 132/70 94 Nasal 2.0L Cannula 07/09 0830 93 Nasal 2.0L Cannula Intake & Output 07/10 1600 07/10 0800 07/10 0000 Intake Total 3767 Output Total 903 467 Balance 2864 -467 Intake, IV 3767 Output, 640 230 Drainage Output, 200 200 Gastric Drainage Output, Urine 63 37 Exam General Appearance: sedated, intubated, obese Head: atraumatic Neck: supple Respiratory: trasnmitted breath sounds Cardiovascular: regular rate/rhythm, normal S1, S2 Gastrointestinal: has a wound dressing and WILLEM drain in plcae that is draining Extremities: has chronic venous stasis changes bilaterally, has a wound dressing on RLE; - blister Cranial Nerves: PERRL, limited as he is intubated and sedated Skin Temp/Moisture Exam: Cool/Dry Sepsis Skin Exam (color): Pale Sepsis Peripheral Pulse Location: Posterior Tibialis Sepsis Peripheral Pulse Exam: Normal Nutrition Nutrition: NPO Current Medications: Current Medications Sig/Buck Start time Last Medication Dose Route Stop Time Status Admin Acetaminophen 1,000 MG Q6H PRN 07/09 1900 AC N/A 1 UNIT IV Acetaminophen 1,000 MG Q6H PRN 07/09 1200 DC N/A 1 UNIT IV Acetaminophen 650 MG Q6P PRN 07/08 1900 DC PO Ampicillin Sodium/ 3,000 MG Q6 07/08 1945 DC 07/09 Sulbactam Sodium IV 0521 Sodium Chloride 100 ML Aspirin Buffered 81 MG DAILY 07/09 1000 DC PO Atorvastatin Calcium 10 MG 1700 07/09 1700 CAN PO Bisacodyl 10 MG ONCE ONE 07/09 0900 DC 07/09 MO 07/09 0901 0900 Budesonide/ 2 PUF BID 07/09 2200 AC Formoterol Fumarate INH Budesonide/ 2 PUF BID 07/08 2200 DC 07/08 Formoterol Fumarate INH 2234 Calcium Gluconate 1 GM ONCE ONE 07/10 0130 DC 07/10 Sodium Chloride 100 ML IV 07/10 0229 0130 Ceftazidime 1,000 MG Q12 07/09 2200 CAN IV Ceftazidime 1,000 MG IQ8 07/09 1600 DC IV Ceftazidime 1,000 MG Q8H 07/09 1300 DC 07/09 IV 1416 Dextrose 25 GM ONCE ONE 07/10 0200 DC 07/10 IV 07/10 0201 0123 Dofetilide 500 MCG BID 07/08 2200 DC 07/08 PO 2233 Enoxaparin Sodium 40 MG DAILY 07/08 1846 DC 07/08 SC 2234 Fentanyl Citrate 1,000 MCG Q24H 07/09 1815 AC 07/09 Dextrose/Water 250 ML IV 2016 Fentanyl Citrate 200 MCG .STK-MED ONE 07/09 1527 DC IM 07/09 1528 Heparin Sodium 5,000 UNIT Q8 07/10 0138 AC 07/10 (Porcine) SC 0334 Hydromorphone HCl 2 MG .STK-MED ONE 07/09 1526 DC IM 07/09 1527 Insulin Aspart 0 TIDAC 07/10 0800 CAN SC Insulin Aspart 10 UNITS ONCE ONE 07/10 0200 CAN SC 07/10 0201 Insulin Aspart 0 TIDAC 07/09 0800 DC SC Insulin Human Regular 10 UNITS ONCE ONE 07/10 0115 DC 07/10 IV 07/10 011 0125 Insulin Human Regular 0 Q4 07/09 2200 AC 07/10 SC 0606 Ketamine HCl 50 MG .STK-MED ONE 07/09 1554 DC IM 07/09 1555 Meropenem 1 GM Q8H 07/10 0500 AC 07/10 IV 0541 Meropenem 1 GM IQ8 07/09 1915 DC 07/09 IV 2058 Metronidazole 500 MG Q8H 07/10 0600 DC 07/10 N/A 1 UNIT IV 0541 Metronidazole 500 MG Q8H 07/09 1900 DC 07/09 N/A 1 UNIT IV 2200 Metronidazole 500 MG Q8H 07/09 1300 DC 07/09 N/A 1 UNIT IV 1416 Midazolam HCl 2 MG .STK-MED ONE 07/09 1527 DC IM 07/09 1528 Morphine Sulfate 2 MG Q4P PRN 07/09 1900 DC IV Morphine Sulfate 2 MG ONCE ONE 07/09 1900 CAN IV 07/09 1901 Morphine Sulfate 2 MG ONCE ONE 07/09 1245 DC IV 07/09 1246 Morphine Sulfate 2 MG Q4P PRN 07/08 1900 DC 07/09 IV 0100 Norepinephrine 4 MG Q12H 07/10 1200 AC Sodium Chloride 250 ML IV Norepinephrine 4 MG Q24H 07/09 2345 DC 07/10 Sodium Chloride 250 ML IV 0216 Nystatin 1 GENE TID 07/09 2200 AC 07/09 TOP 2228 Nystatin 1 GENE TID 07/09 0015 DC TOP Oxycodone/ 1 TAB Q6P PRN 07/08 1900 DC Acetaminophen PO Pantoprazole Sodium 80 MG Q10H 07/09 1930 AC 07/10 Sodium Chloride 100 ML IV 0423 Polyethylene Glycol 17 GM DAILY 07/08 2030 DC PO Senna 187 MG AT BEDTIME 07/08 2200 DC 07/08 PO 2231 Sodium Bicarbonate 150 MEQ ONCE ONE 07/10 0115 DC 07/10 Dextrose/Water 1,000 ML IV 07/10 0614 0255 Sodium Chloride 1,000 ML BOLUS ONE 07/10 0315 DC 07/10 IV 07/10 0514 0334 Sodium Chloride 1,000 ML BOLUS ONE 07/10 0045 DC 07/10 IV 07/10 0144 0045 Sodium Chloride 1,000 ML BOLUS ONE 07/09 2145 DC 11 IV 07/09 2244 2216 Sodium Chloride 1,000 ML Q6H 07/09 2030 DC 07/09 IV 07/10 0229 2106 Sodium Chloride 1,000 ML BOLUS ONE 07/09 1900 DC 07/09 IV 07/09 195 1917 Sodium Chloride 1,000 ML Q6H 07/09 1245 DC 07/09 IV 07/09 1844 1415 Sodium Chloride 1,000 ML Q20H 07/09 1015 DC IV 07/10 1614 Sodium Polystyrene 60 ML ONCE ONE 07/10 0130 CAN Sulfonate PO 07/10 0131 Vancomycin HCl 1,500 MG ONCE ONE 07/09 1815 DC 07/09 Sodium Chloride 250 ML IV 07/09 194 1916 Antibiotics Antibiotic: meropenem Day #: 1 IV/PO? IV If IV, Change to PO? No CXR Findings: SERVICE DATE: 07/09/17 EXAM TYPE: RAD - XRY-PORTABLE CHEST XRAY FINDINGS: Hypoventilatory exam. The patient's head is rotated toward the left side. Cardiac EKG leads are overlying the chest. There is a dual lead left subclavian approach cardiac pacer in place, unchanged in position with leads projecting over the right atrium and right ventricle. An endotracheal tube is in place, its tip is located about 4 cm from the nipple. A right IJ central venous catheter is in place with its tip projecting over the caval atrial junction, unchanged in position. There seems to be an enteric tube in place, however I am unable to locate the distal part of this tube in the thorax and abdomen. There is opacity in the left costophrenic angle. The lungs are otherwise clear. No pneumothorax. The cardiomediastinal silhouette is stable. Post CABG changes seen. Median sternotomy wires are in place. IMPRESSION: Suboptimal exam. Tubes and catheters as above. A small opacity in the left costophrenic angle. Otherwise no acute pulmonary findings. CT Scan Findings: SERVICE DATE: 07/09/17 EXAM TYPE: CAT - CT ABD & PELVIS W IV CONTRAST; CT CHEST W IV CONTRAST FINDINGS: EXTRACTOR TENDER RAW STOCK: A single lead cardiac pacemaker is in place. Intra-abdominal free air is seen on the lateral child development consultant view. LUNGS: There are mild centrilobular emphysematous changes of the lungs with upper lobe predominance. There is no focal pulmonary consolidations or pulmonary masses. No pleural effusions. No pneumothorax. There is a 3 mm pleural-based pulmonary nodule along the fissural surface of the right lower lobe, adjacent to the right major fissure as as seen on axial image 273 from series 5. No other pulmonary nodules seen. MEDIASTINUM: The cardiac size is within normal limits. No pericardial effusion. Atherosclerotic calcifications of the coronary arteries are seen. Prior CABG. The thoracic aorta is normal in diameter and demonstrates atherosclerotic calcifications. The pulmonary arteries are normal in diameter. The tracheal and kika are patent. No mediastinal, hilar or axillary adenopathy. There is mild dilatation of the thoracic esophagus which contains fluid. A small hiatal hernia is present. ABDOMEN PELVIS: There is a moderate amount of free fluid within the abdomen and the pelvis. The density of the fluid is about 10 Hounsfield unit density in the pelvic cavity, 12 Hounsfield unit density in the right paracolic gutter and 10 Hounsfield unit in the right subdiaphragmatic location, representing simple fluid. No high density free fluid seen in the abdomen to suggest acute hemorrhagic component. There is moderate amount of free air in the abdomen, beneath the anterior abdominal wall as well as in the mesentery in the right upper quadrant and right lower quadrant. There are some inflammatory changes in the right lower quadrant of the abdomen, adjacent to the cecum as seen on axial images [id number] from series 4. The inflammatory changes extend to the C-loop of the duodenum in the right side of the abdomen. Again noted diverticular disease of the sigmoid colon and left colon. No definite inflammatory changes surrounding the sigmoid colon and left colon seen. The appendix is visualized in the right lower quadrant of the abdomen, better seen on axial images [id number] from series 4. The lumen of the appendix is not dilated. It is adjacent to the inflammatory changes in the right lower quadrant of the abdomen, however does not seem to be the source of the inflammatory changes. The small bowel loops and colon are not dilated. The stomach is normally distended. There is some air within the stomach, better seen on sagittal image 52/167. It is not clear if this area represent pneumatosis. The liver, spleen, adrenal glands, pancreas are unremarkable. The gallbladder is normally distended. No calcified gallstone. There is some pericholecystic fluid which could be as a result of moderate amount of free fluid seen in the abdomen. Again noted bilateral urinary stones and renal cortical and parapelvic cysts. No urinary obstruction. The ureters are not dilated. The urinary bladder is empty in the presence of indwelling catheter. OSSEOUS STRUCTURES: There are multilevel degenerative changes of the lumbar spine with vacuum disc phenomenon present. Median sternotomy wires are in place, intact. Right hip prosthesis is in place. IMPRESSION: Chest: Mild to moderate centrilobular pulmonary emphysema without acute pulmonary infiltrate. No pleural effusions or pericardial effusions. Atherosclerosis and coronary artery disease. Abdomen pelvis: Interval development of a moderate amount of free fluid and free air within the abdomen and pelvis since 07/08/2017 CT scan suggests bowel perforation. There are some inflammatory changes in the right side of the abdomen which could suggest the origin of the bowel perforation. Inflammatory changes extend to the C-loop of the duodenum as well when there is some wall thickening. No CT evidence of acute appendicitis. The findings were discussed with the ordering physician, Dr. Hughes at 3:00 p.m. on 07/09/2017. Impression/Plan Impression/Problem List Impression: In summary this is a 76 y/o male with a PMH of PAF on Tikosyn and not on AC, HFrEF 25-30% on echocardiogram 03/14/2017 s/p PPM, CAD s/p CABG in 2004, sleep apnea on CPAP, COPD, HLD, diabetes, BPH, LIAM, previous right total hip arthroplasty (2014) at [facility], history of LE cellulitis, septic joint of the right hip s/p removal of the hip prosthesis and antibiotic spacer on 2016 who presented to the ED with c/o weakness and was thought to be septic 2/[address] on admission showing b/l nephrolithiasis and enlaregd prostate. He became acutely ill, with abdominal pain and was found to have a large perforation of his duodenum. He was taken to the OR and is currently POD #1 s/p Fabrizio patch for his perforated ulcer with exploration and drainage of retroperitoneal fluid collection. Postoperatively, he remains in profound septic shock with metabolic acidosis requiring fluid resuscitation and pressor support as well as mechanical ventilation. He was placed on bicarb drip as well as started on broad spectrum antibiotics (having received 2 doses of Meropenem, a dose fo Vanc and Flagyl. Assessment and Plan #Acute hypoxic respiratory failure - Patient was intubated for suregry yesterday 07/09/17 and continues to remain mechanically ventilated. - His ABG this AM show pH: 7.41; pCO2: 27, pO2: 93 with vent settings A/C; RR: 16; TV: 600ml; PEEP: 5 in taylor setting of having received bicarb drip - COntinue Fentanyl for now - Will increase RR to 25 - F/U ABG in silverio. - Maintain on aspiration precautions and will obtain CXR to ensure he does not have pulmonary edema as his EF is 25% and he has received almost 5.0 liters of fluid. - F/U CXR #Septic shock - 2/2 peritonitis from perforated duodenal ulcer - S/p fluid resuscitation and pressors. - If CXR does not show pulmonary venous congestion will hydrate with D5/NS @ 200mls/hr for 3-4 hrs, and bolus with NS. Goal to maintain CVP of 6 and or MAP of > 65mmHg - Meanwhile, appreciate ID consult. Will decrease Meropenem to 1000mg q24 hrs IV. - F/U OR cultures - so far NGTD, BC X2, . #Hypotension - 2/2 septic shock - Titrate to maintain MAP > 65mmHg, and bolus with fluids with caution to maintain a CVP of 6. - Check thyroid function and r/o adrenal insufficency. - Of note the administration of glucocorticoids has not been shown to benefit critically ill patients who do not have shock, and the results of placebo- controlled randomized trials in patients with septic shock are conflicting. #CAD s/p CABG - Continue to hold ASA, Carvedilol, lisinopril, simvastatin given hypotension and NPO status - Obtain an EKG and trend trops to r/o [place] - F/U limited Echo - F/U card recs #Hx of PAF on Tikosyn - Curently in NSR,a nd rat controlled - Continue to hold tikosyn # Perforated duodenal ulcer - S/P Fabrizio repair yesterday with WILLEM drain - Seen by GS - not concerned about the increased drainage. - Meanwhile will switch to IV Protonix 40mg BID - NPO status for now. - F/U Gen Surg recs. #Metabolic acidosis - 2/2 lactic acidosis from systemic hypoperfusion - f/u repeat LA. - Will discontinue bicarb drip. - Continue IVF hydration #USMAN - Anuric - 2/2 ATN from dereased perfusion and having received IV contrast yesterday. - Continue hydration with IVF - Obtain urine lytes - Continue IVFs. - Continue to montior - Nephro consult placed. F/U recs #Hypocalcemia - F/U ionized calcium given hypoalbumenia. - Replete as needed #Neuro - Maintain on Fentanyl to maintain SAS of 3. - Meanhwile, no focal neuro deficit. Physical exam limited as he is intbated and sedated. - DVT prophylaxis - On heparin 5000iu TID SC - Diet - NPO - Code Status - Full Code Problem List: 1. Perforated viscus 2. Lactic acidosis 3. HFrEF (heart failure with reduced ejection fraction) Pain Ratin Tomorrow's Labs & Rationales: CBC - wbc - ICU bundle - Cr Plan DVT/Prophylaxis: mechanical, pharmacological
--- NOTE | 2017-07-10 08:22 | Cons- Infect Disease ---
General Information and HPI Consulting Request Date of Consult: 07/10/17 Requested By: JACOBO HALL MD Reason for Consult: Sepsis Source of Information: old records Exam Limitations: clinical condition History of Present Illness: This is a 76-year-old man with a history of diabetes, coronary artery disease, status post CABG, paroxysmal atrial fibrillation, on Tikosyn but no anticoagulation, status post pacemaker/AICD, COPD, with obstructive sleep apnea, maintained on CPAP, GI bleed, BPH, osteoarthritis, venous insufficiency, status post right hip replacement 2-1/2 years prior to admission, hospitalized 4 months prior to admission with an infected right hip secondary to Enterococcus, apparently treated with a 6 week course of Unasyn after refusing right hip replacement, but readmitted 2-1/2 months prior to admission for removal of the prosthesis, with placement of a antibiotic loaded spacer, discharged to a rehabilitation facility on Unasyn for 4 weeks, with OR cultures negative, and ultimately discharged home, with plans for a right hip reimplantation in several weeks, begun on Macrodantin 1 day prior to admission for a urinary tract infection, admitted on July 08 with increasing weakness and pain in his right hip. On admission he was febrile to 101.9. Laboratory data revealed a white blood cell count of 15,000, BUN/creatinine 21 and 0.9, lactic acid 3.6, bilirubin 1.4, proBNP 1540. Urinalysis 50-75 RBCs/25-50 WBCs. Chest x-ray was negative. CT of the abdomen and pelvis revealed bilateral nephrolithiasis and an enlarged prostate. He was straight cathed for 450 mL of urine and begun on Ceftriaxone, which was later changed to Unasyn. On July 09 he complained of increased abdominal pain and was noted to have an increasing lactic acid and bandemia, with an increased creatinine to 1.7. A repeat CT of the abdomen and pelvis revealed free air and he was moved to the ICU and begun on Ceftazidime and Flagyl. He was evaluated by Surgery, with a right IJ inserted, and he was taken to the OR where he was found to have a perforated duodenal ulcer. Postoperatively he was given 1 dose of Vancomycin, continued on Flagyl and changed to Meropenem. He was begun on Levophed for borderline hypotension. Overnight he has remained afebrile. He has been sedated on the ventilator and is unable to provide any history at this time. Allergies/Medications Allergies: Coded Allergies: NO KNOWN ALLERGIES (03/22/12) NKA PER DIPYRIDAMOLE ORDER SHEET - [facility] Home Med List: Aspirin (Ecotrin*) 81 MG TABLET.DR 1 TAB PO DAILY HEART/BLOOD (Reported) Carvedilol 6.25 MG TABLET 1 TAB PO BID HEART (Reported) Dofetilide 500 MCG CAPSULE 1 CAP PO BID HEART (Reported) Fluticasone-Salmeterol (Advair 100-50 Diskus) 100 MCG-50 MCG/DOSE BLST.W.DEV 1 PUF INH BID COPD (Reported) Liraglutide (Victoza 3-Myles) 0.6 MG/0.1 ML (18 MG/3 ML) PEN.INJCTR 1.2 MG SC QAM DIABETES (Reported) Lisinopril (Prinivil) 5 MG TABLET 1 TAB PO QHS HEART/BP (Reported) Magnesium Gluconate (Mag-G) 27 MG (500 MG) TABLET 1 TAB PO Tuesday SUPPLEMENT (Reported) Metformin HCl 500 MG TABLET 1 TAB PO BID DIABETES (Reported) [place]-3/Dha/Epa/Fish Oil (Fish Oil 500 MG Softgel) 60 MG-90 MG-500 MG CAPSULE 1 CAP PO QPM SUPPLEMENT (Reported) Simvastatin (Zocor*) 10 MG TABLET 1 TAB PO QHS CHOLESTEROL (Reported) Tamsulosin HCl (Flomax) 0.4 MG CAP.ER.24H 1 CAP PO DAILY PROSTATE (Reported) Vitamin E Acetate (Vitamin E) 400 UNIT CAPSULE 1 CAP PO BID SUPPLEMENT ( Reported) Past History Travel History Traveled to [place] past 21 day No Medical History Blood Transfusion Hx: No Neurological: NONE EENT: hearing loss Cardiovascular: AFIB, CAD, cardiomyopathy (ischemic), chronic venous insuff, hypertension, myocardial infarction, RCW AICD S/P CABG 2003 Respiratory: bronchitis, SLEEP APNEA Gastrointestinal: upper GI bleed Hepatic: NONE Renal: benign prost hyperplasia, nephrolithiasis Musculoskeletal: falls Psychiatric: NONE Endocrine: obesity, DIABETES TYPE 2 Blood Disorders: NONE Cancer(s): NONE 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 FH: heart disease BROTHER FH: lung cancer FATHER FH: prostate cancer Psychosocial History Who Do You Live With? with nephew Services at Home: None Primary Language: Com[place]an Smoking Status: Never Smoked Functional Ability ADLs Independent: eating. Needs Assist: dressing, toileting, bathing. Ambulation: walker IADLs Needs Assist: shopping, housework, finances, food prep, telephone, transportation, medication admin. Review of Systems Comments Unobtainable Exam & Diagnostic Data Last 24 Hrs of Vital Signs/I&O Vital Signs Date Time Temp Pulse Resp B/P B/P Pulse O2 O2 Flow FiO2 Mean Ox Delivery Rate 07/10 0605 40 07/10 0304 40 07/10 0216 97.9 113 32 108/60 07/10 0049 40 07/10 0000 97.9 102 32 96/64 96 Ventilator 40% 07/10 0000 96 Ventilator 40% 07/09 2210 50 07/09 2030 97 Ventilator 50% 07/09 1835 60 07/09 1300 92 Nasal 2.0L Cannula 07/09 1300 98.1 92 45 121/62 92 Nasal 2.0L Cannula 07/09 1200 93 24 140/76 91 Nasal 2.0L Cannula 07/09 0930 98.0 88 22 132/70 94 Nasal 2.0L Cannula 07/09 0830 93 Nasal 2.0L Cannula Intake & Output 07/10 1600 07/10 0800 07/10 0000 Intake Total 3767 Output Total 903 467 Balance 2864 -467 Intake, IV 3767 Output, 640 230 Drainage Output, 200 200 Gastric Drainage Output, Urine 63 37 Physical Exam Other Physical Findings: Afebrile. He is sedated but minimally responsive on the ventilator. Skin reveals no rash. HEENT negative. Neck supple with no adenopathy; right IJ triple-lumen catheter in place, with no inflammation at the site. Lungs decreased breath sounds bilaterally. Heart regular rhythm with no murmur. Abdomen is obese, distended, tender to palpation, with positive bowel sounds. Back no CVA tenderness. Extremities right hip incision clean, with no erythema or drainage; uperficial ulcerations over the anterior tibial aspects of both legs, with 1+ edema bilaterally. Neuro is without focality. Duvall catheter is in place with minimal urine output. Last 24 Hours of Lab Results: Laboratory Tests 07/10 07/10 07/10 07/10 07/10 0555 0500 0500 0230 0230 Blood Gas pH (7.35 - 7.45 PH) 7.41 pCO2 (35 - 45 TORR) 27 L pO2 (80 - 100 TORR) 93 HCO3 (21 - 28 MEQ/L) 17 L ABG O2 Sat (Measured) (>96.0 %) 97.0 P-50 (Temp Corrected) N Carboxyhemoglobin (1.5 - 5.0 %) 0.6 L O2 Concentration % .40 Respiration Rate (BPM) 16 O2 Delivery Method VENT Vent Mode A/C Expiratory Pressure (CMH2O/P) 5 Tidal Volume (CC) 600 Chemistry Sodium (137 - 145 mmol/L) 141 Potassium (3.5 - 5.1 mmol/L) 4.8 5.0 Chloride (98 - 107 mmol/L) 114 H Carbon Dioxide (22 - 30 mmol/L) 14 L Anion Gap (5 - 16) 13 BUN (9 - 20 mg/dL) 45 H Creatinine (0.7 - 1.2 mg/dL) 3.2 H Estimated GFR (>60 ml/min) 19 L Glucose (65 - 99 mg/dL) 268 H Lactic Acid (0.7 - 2.1 mmol/L) 4.1 H 4.4 H Calcium (8.4 - 10.2 mg/dL) 6.8 L Phosphorus (2.5 - 4.5 mg/dL) 3.7 Magnesium (1.6 - 2.3 mg/dL) 1.8 Total Bilirubin (0.2 - 1.3 mg/dL) 0.6 AST (17 - 59 U/L) 22 ALT (21 - 72 U/L) 27 Albumin (3.5 - 5.0 g/dL) 1.8 L Hematology CBC w Diff Pending WBC Pending RBC Pending Hgb Pending Hct Pending MCV Pending MCH Pending RDW Pending Plt Count Pending MPV Pending Gran % Pending Lymphocytes % Pending Monocytes % Pending Eosinophils % Pending Basophils % Pending Absolute Granulocytes Pending Absolute Lymphocytes Pending Absolute Monocytes Pending Absolute Eosinophils Pending Absolute Basophils Pending PUBS MCHC Pending Miscellaneous Phlebotomy Draw Site [place] 07/10 07/09 07/09 0020 2343 7730 Blood Gas pH (7.35 - 7.45 PH) 7.34 L pCO2 (35 - 45 TORR) 25 L pO2 (80 - 100 TORR) 124 H HCO3 (21 - 28 MEQ/L) 13 L ABG O2 Sat (Measured) (>96.0 %) 97.0 P-50 (Temp Corrected) N Carboxyhemoglobin (1.5 - 5.0 %) 0.8 L O2 Concentration % 50% Temperature (97.0 - 100.0 FARH) 99.6 Respiration Rate (BPM) 16 O2 Delivery Method ESPRIT Vent Mode AC Expiratory Pressure (CMH2O/P) 5 Tidal Volume (CC) 600 Chemistry Sodium (137 - 145 mmol/L) 141 Potassium (3.5 - 5.1 mmol/L) 5.5 H Chloride (98 - 107 mmol/L) 113 H Carbon Dioxide (22 - 30 mmol/L) 13 L Anion Gap (5 - 16) 15 BUN (9 - 20 mg/dL) 42 H Creatinine (0.7 - 1.2 mg/dL) 2.6 H Estimated GFR (>60 ml/min) 24 L Glucose (65 - 99 mg/dL) 240 H Lactic Acid (0.7 - 2.1 mmol/L) 4.1 H Calcium (8.4 - 10.2 mg/dL) 7.1 L Phosphorus (2.5 - 4.5 mg/dL) 4.6 H Magnesium (1.6 - 2.3 mg/dL) 1.9 Total Bilirubin (0.2 - 1.3 mg/dL) 0.8 AST (17 - 59 U/L) 24 ALT (21 - 72 U/L) 22 Troponin I (<0.11 ng/ml) 0.05 Albumin (3.5 - 5.0 g/dL) 2.2 L Hematology CBC w Diff MAN DIFF ORDERED WBC (4.8 - 10.8 /CUMM) 14.1 H RBC (4.70 - 6.10 /CUMM) 5.76 Hgb (14.0 - 18.0 G/DL) 16.3 Hct (42 - 52 %) 50.3 MCV (80.0 - 94.0 FL) 87.4 MCH (27.0 - 31.0 PG) 28.3 RDW (11.5 - 14.5 %) 15.9 H Plt Count (130 - 400 /CUMM) 202 MPV (7.4 - 10.4 FL) 9.2 Gran % (42.2 - 75.2 %) 58.6 Lymphocytes % (20.5 - 51.1 %) 34.9 Monocytes % (1.7 - 9.3 %) 6.4 Eosinophils % (0 - 5 %) 0 Basophils % (0.0 - 2.0 %) 0.1 Absolute Granulocytes (1.4 - 6.5 /CUMM) 8.3 H Segmented Neutrophils (42.2 - 75.2 %) 24 L Band Neutrophils (0.0 - 5.0 %) 17 H Absolute Lymphocytes (1.2 - 3.4 /CUMM) 4.9 H Lymphocytes (20.5 - 51.1 %) 53 H Monocytes (1.7 - 9.3 %) 5 Absolute Monocytes (0.10 - 0.60 /CUMM) 0.9 H Absolute Eosinophils (0.0 - 0.7 /CUMM) 0 Absolute Basophils (0.0 - 0.2 /CUMM) 0 Metamyelocytes (0.0 - 1.0 %) 1 Platelet Estimate (ADEQUATE) ADEQUATE Normocytic RBCs VERIFIED Normochromic RBCs VERIFIED PUBS MCHC (33.0 - 37.0 G/DL) 32.3 L Miscellaneous Phlebotomy Draw Site [place] 07/09 Chemistry Sodium (137 - 145 mmol/L) 141 Potassium (3.5 - 5.1 mmol/L) 5.0 Chloride (98 - 107 mmol/L) 112 H Carbon Dioxide (22 - 30 mmol/L) 14 L Anion Gap (5 - 16) 15 BUN (9 - 20 mg/dL) 36 H Creatinine (0.7 - 1.2 mg/dL) 2.2 H Estimated GFR (>60 ml/min) 29 L Glucose (65 - 99 mg/dL) 233 H Lactic Acid (0.7 - 2.1 mmol/L) Cancelled 4.3 H Calcium (8.4 - 10.2 mg/dL) 7.1 L Phosphorus (2.5 - 4.5 mg/dL) 5.0 H Magnesium (1.6 - 2.3 mg/dL) 1.8 Total Bilirubin (0.2 - 1.3 mg/dL) 0.7 AST (17 - 59 U/L) 24 ALT (21 - 72 U/L) 29 Troponin I (<0.11 ng/ml) 0.05 Albumin (3.5 - 5.0 g/dL) 2.2 L Hematology CBC w Diff MAN DIFF ORDERED WBC (4.8 - 10.8 /CUMM) 13.5 H RBC (4.70 - 6.10 /CUMM) 5.63 Hgb (14.0 - 18.0 G/DL) 15.9 Hct (42 - 52 %) 49.5 MCV (80.0 - 94.0 FL) 87.9 MCH (27.0 - 31.0 PG) 28.3 RDW (11.5 - 14.5 %) 16.1 H Plt Count (130 - 400 /CUMM) ND MPV (7.4 - 10.4 FL) ND Gran % (42.2 - 75.2 %) 50.1 Lymphocytes % (20.5 - 51.1 %) 40.2 Monocytes % (1.7 - 9.3 %) 9.7 H Eosinophils % (0 - 5 %) 0 Basophils % (0.0 - 2.0 %) 0 Absolute Granulocytes (1.4 - 6.5 /CUMM) 6.8 H Segmented Neutrophils (42.2 - 75.2 %) 27 L Band Neutrophils (0.0 - 5.0 %) 23 H Absolute Lymphocytes (1.2 - 3.4 /CUMM) 5.4 H Lymphocytes (20.5 - 51.1 %) 39 Monocytes (1.7 - 9.3 %) 7 Absolute Monocytes (0.10 - 0.60 /CUMM) 1.3 H Absolute Eosinophils (0.0 - 0.7 /CUMM) 0 Absolute Basophils (0.0 - 0.2 /CUMM) 0 Metamyelocytes (0.0 - 1.0 %) 4 H Platelet Estimate (ADEQUATE) ADEQUATE Anisocytosis 1+ PUBS MCHC (33.0 - 37.0 G/DL) 32.2 L Other Body Source Fld Total RBCs Counted (%) 100 07/09 07/09 07/09 1905 1320 1320 Blood Gas pH (7.35 - 7.45 PH) 7.22 *L pCO2 (35 - 45 TORR) 38 pO2 (80 - 100 TORR) 118 H HCO3 (21 - 28 MEQ/L) 15 L ABG O2 Sat (Measured) (>96.0 %) 96.0 P-50 (Temp Corrected) N Carboxyhemoglobin (1.5 - 5.0 %) 1.0 L O2 Concentration % 60 Temperature (97.0 - 100.0 FARH) 98.1 Respiration Rate (BPM) 16 O2 Delivery Method ESPRIT Vent Mode AC Expiratory Pressure (CMH2O/P) 5 Tidal Volume (CC) 600 Chemistry Sodium (137 - 145 mmol/L) 143 Potassium (3.5 - 5.1 mmol/L) 4.6 Chloride (98 - 107 mmol/L) 107 Carbon Dioxide (22 - 30 mmol/L) 12 L Anion Gap (5 - 16) 24 H BUN (9 - 20 mg/dL) 27 H Creatinine (0.7 - 1.2 mg/dL) 1.7 H Estimated GFR (>60 ml/min) 39 L Glucose (65 - 99 mg/dL) 312 H Lactic Acid (0.7 - 2.1 mmol/L) 11.0 H Calcium (8.4 - 10.2 mg/dL) 9.5 Phosphorus (2.5 - 4.5 mg/dL) 4.1 Magnesium (1.6 - 2.3 mg/dL) 1.9 Total Bilirubin (0.2 - 1.3 mg/dL) 1.2 AST (17 - 59 U/L) 26 ALT (21 - 72 U/L) 19 L Troponin I (<0.11 ng/ml) 0.03 Albumin (3.5 - 5.0 g/dL) 3.8 Coagulation PT (9.4 - 12.5 SEC) 14.5 H INR (0.90 - 1.17) 1.39 H Hematology CBC w Diff MAN DIFF ORDERED WBC (4.8 - 10.8 /CUMM) 14.2 H RBC (4.70 - 6.10 /CUMM) 6.39 H Hgb (14.0 - 18.0 G/DL) 17.9 Hct (42 - 52 %) 56.5 H MCV (80.0 - 94.0 FL) 88.5 MCH (27.0 - 31.0 PG) 28.0 RDW (11.5 - 14.5 %) 15.8 H Plt Count (130 - 400 /CUMM) 200 MPV (7.4 - 10.4 FL) 10.7 H Gran % (42.2 - 75.2 %) 61.7 Lymphocytes % (20.5 - 51.1 %) 32.4 Monocytes % (1.7 - 9.3 %) 5.6 Eosinophils % (0 - 5 %) 0 Basophils % (0.0 - 2.0 %) 0.3 Absolute Granulocytes (1.4 - 6.5 /CUMM) 8.7 H Segmented Neutrophils (42.2 - 75.2 %) 31 L Band Neutrophils (0.0 - 5.0 %) 24 H Absolute Lymphocytes (1.2 - 3.4 /CUMM) 4.6 H Lymphocytes (20.5 - 51.1 %) 39 Monocytes (1.7 - 9.3 %) 6 Absolute Monocytes (0.10 - 0.60 /CUMM) 0.8 H Absolute Eosinophils (0.0 - 0.7 /CUMM) 0 Absolute Basophils (0.0 - 0.2 /CUMM) 0 Platelet Estimate (ADEQUATE) VERIFIED BY SMEAR Polychromasia 1+ Anisocytosis 1+ PUBS MCHC (33.0 - 37.0 G/DL) 31.6 L Miscellaneous Phlebotomy Draw Site [place] 07/09 07/09 1149 1100 Chemistry Lactic Acid Cancelled Troponin I Cancelled Last 24 Hours of Les Results: Blood culture 1 July 08 negative Blood cultures 2 July 09 negative Urine culture July 08 approximately 20,000 copies of Escherichia coli sensitive to all antibiotics tested Rapid flu swab July 08 negative OR culture of peritoneal fluid July 09 negative Diagnostic Data Recent Imaging Findings: Chest x-ray July 09, personally reviewed, reveals a minimal opacity at the left costophrenic angle CT of the chest, abdomen and pelvis July 09 reveals [id number] centrilobular emphysema with no acute pulmonary infiltrate; interval development of a moderate amount of free fluid and free air, suggesting a bowel perforation CT of the abdomen and pelvis July 08 revealed bilateral nephrolithiasis and interval enlargement of the prostate gland Assessment/Plan Assessment/Plan Impression: This is a 76-year-old man with a history of diabetes, coronary artery disease, status post CABG, paroxysmal atrial fibrillation, not no anticoagulation, status post pacemaker/AICD, COPD, with obstructive sleep apnea, maintained on CPAP, GI bleed, BPH, osteoarthritis, venous insufficiency, recently treated for an infected right hip prosthesis, felt to be secondary to Enterococcus, with 2 courses of IV antibiotics, with removal of the prosthesis in between these 2 courses, admitted on July 08 with weakness, found to be febrile with a leukocytosis, initially felt to be secondary to a urinary tract infection, with an initial CT of the abdomen and pelvis negative, but with evidence on a repeat CT scan of free air, now status post exploratory laparotomy and Fabrizio patch for a perforated duodenal ulcer. His clinical picture is consistent with sepsis, with borderline hypotension, requiring pressors, and acute renal failure. The positive urine culture may represent seeding from bacteremia/sepsis or colonization, and will be covered by his current antibiotics. He has no evidence for infection in the right hip, but his reimplantation will likely need to be deferred until his infection is clearly resolved. Suggestion: 1. Follow-up OR culture 2. Discontinue Flagyl 3. Decrease Meropenem to 1 g IV every 24 hours pending above Consult Acknowledgment - Thank you for your consult request.
[2017-07-10 09:12] LABS: ABSOLUTE GRANULOCYTE CT 9.1 /CUMM (1.4-6.5); ABSOLUTE LYMPH COUNT 4.7 /CUMM (1.2-3.4); ABSOLUTE MONOCYTE COUNT 1.2 /CUMM (0.10-0.60); GRANULOCYTE % 60.5 % (42.2-75.2); MEAN CORPUSCULAR HGB CONC 32.5 G/DL (33.0-37.0); MEAN CORPUSCULAR VOLUME 87.4 FL (80.0-94.0); MEAN PLATELET VOLUME 9.7 FL (7.4-10.4); PLATELET COUNT 199 /CUMM (130-400); RBC DISTRIBUTION WIDTH 16.3 % (11.5-14.5); RED BLOOD CELL CT 5.37 /CUMM (4.70-6.10); WHITE BLOOD CELL COUNT 15.1 /CUMM (4.8-10.8)
--- NOTE | 2017-07-10 10:01 | Cons- CRCU ---
General Information and HPI Consulting Request Date of Consult: 07/10/17 Requested By: med team History of Present Illness: This is a gentleman with history of diabetes, ischemic heart disease, previous bypass surgery, paroxysmal atrial fibrillation on rate control and rhythm control medication Tikosyn, was not on anticoagulation, significant ischemic cardiomyopathy with low ejection fraction, previous sleep apnea was on CPAP, previous history of GI bleed, chronic venous insufficiency and enlarged prostate , significant osteoarthritis, previous hip replacement surgery with infected right hip due to enterococcus, prolonged hospitalization in the recent past few months with 6 weeks of antibiotics, recent Macrodantin use, came into the hospital with increasing weakness fatigue and initially was thought to be septic. His initial CT scan which was done without any contrast did show bilateral nephrolithiasis and enlarged prostate and urine culture had been sent out and he was aggressively resuscitated. Subsequently while he was on the floor he became acutely ill and was having significant diffuse abdominal pain and did have a large perforation in his duodenum. At that time it was noted that he had significant ascites and free air and he was in septic shock, metabolic acidosis was later taken to the operating room. In the operating room he was noted to have a very large duodenal ulcer and he had a Fabrizio patch for his perforated ulcer with exploration and drainage of retroperitoneal fluid collection and cultures have been sent out. Since then postoperatively he has been in significant shock with profound metabolic acidosis and has required vasopressor use and has been aggressively fluid resuscitated so far. He has now been covered with broad-spectrum antibiotics and I saw him he was intubated sedated with fentanyl and was maintained on a vasopressor with a mean arterial pressure more than 65. Since he has been in intensive care use and acute renal failure as well. His past history as noted above which includes significant ischemic cardiomyopathy with low ejection fraction, status post AICD, atrial fibrillation , recurrent hip infection, sleep apnea, significant diabetes, previous CLARISA inhibitor use, BPH. SIGNIFICANT DATA his creatinine upon admission was normal and now subsequently has gone up to 3.3 his anion gap which was elevated yesterday has been narrowing however he did receive bicarbonate drip lately. His ABG has been relatively stable and he is overbreathing the ventilator and his PCO2 is 25 and subsequently 27. His lactic acidosis which was significantly elevated slowly seems to be coming down and his electrolytes are abnormal which includes low magnesium, low calcium and adequate phosphorus. His liver enzymes have been relatively stable and his previous hepatitis panel has been negative, his proBNP was slightly elevated upon admission His white count is 15.1 with a significant left shift and yesterday he did have 25% bands. His ABG on 40% does show that he is maintaining his oxygenation with PO2 of 93# bicarbonate is low and he seems to have a complex acid-base status which includes metabolic acidosis, respiratory alkalosis and hypochloremia as well due to aggressive normal saline resuscitation with normal pH. He is also been replaced with bicarbonate of 19. His previous cultures were positive for gram-negative rods in the urine which was only 20,000 colonies and previous culture from his hip area was enterococci for which she is already finished his antibiotics. His chest x-ray was done yesterday Allergies/Medications Allergies: Coded Allergies: NO KNOWN ALLERGIES (03/22/12) NKA PER DIPYRIDAMOLE ORDER SHEET - [facility] Home Med List: Aspirin (Ecotrin*) 81 MG TABLET.DR 1 TAB PO DAILY HEART/BLOOD (Reported) Carvedilol 6.25 MG TABLET 1 TAB PO BID HEART (Reported) Dofetilide 500 MCG CAPSULE 1 CAP PO BID HEART (Reported) Fluticasone-Salmeterol (Advair 100-50 Diskus) 100 MCG-50 MCG/DOSE BLST.W.DEV 1 PUF INH BID COPD (Reported) Liraglutide (Victoza 3-Myles) 0.6 MG/0.1 ML (18 MG/3 ML) PEN.INJCTR 1.2 MG SC QAM DIABETES (Reported) Lisinopril (Prinivil) 5 MG TABLET 1 TAB PO QHS HEART/BP (Reported) Magnesium Gluconate (Mag-G) 27 MG (500 MG) TABLET 1 TAB PO Tuesday SUPPLEMENT (Reported) Metformin HCl 500 MG TABLET 1 TAB PO BID DIABETES (Reported) Randall-3/Dha/Epa/Fish Oil (Fish Oil 500 MG Softgel) 60 MG-90 MG-500 MG CAPSULE 1 CAP PO QPM SUPPLEMENT (Reported) Simvastatin (Zocor*) 10 MG TABLET 1 TAB PO QHS CHOLESTEROL (Reported) Tamsulosin HCl (Flomax) 0.4 MG CAP.ER.24H 1 CAP PO DAILY PROSTATE (Reported) Vitamin E Acetate (Vitamin E) 400 UNIT CAPSULE 1 CAP PO BID SUPPLEMENT ( Reported) Review of Systems Review of Systems Constitutional: Reports: see HPI. 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 FH: heart disease BROTHER FH: lung cancer FATHER FH: prostate cancer Psychosocial History Who Do You Live With? with nephew Services at Home: None Primary Language: Slovenian Smoking Status: Never Smoked Functional Ability ADLs Independent: eating. Needs Assist: dressing, toileting, bathing. Ambulation: walker IADLs Needs Assist: shopping, housework, finances, food prep, telephone, transportation, medication admin. Exam & Diagnostic Data Last 24 Hrs of Vital Signs/I&O Vital Signs Date Time Temp Pulse Resp B/P B/P Pulse O2 O2 Flow FiO2 Mean Ox Delivery Rate 07/10 0912 40 07/10 0605 40 07/10 0304 40 07/10 0216 97.9 113 32 108/60 07/10 0049 40 07/10 0000 97.9 102 32 96/64 96 Ventilator 40% 07/10 0000 96 Ventilator 40% 07/09 2210 50 07/09 2030 97 Ventilator 50% 07/09 1835 60 07/09 1300 92 Nasal 2.0L Cannula 07/09 1300 98.1 92 45 121/62 92 Nasal 2.0L Cannula 07/09 1200 93 24 140/76 91 Nasal 2.0L Cannula Intake & Output 07/10 1600 07/10 0800 07/10 0000 Intake Total 3767 3590 Output Total 903 467 Balance 2864 3123 Intake, IV 3767 3590 Output, 640 230 Drainage Output, 200 200 Gastric Drainage Output, Urine 63 37 Last 48 Hrs of Labs/Les: Laboratory Tests 07/10/17 0845: Sodium Pending, Potassium Pending, Chloride Pending, Carbon Dioxide Pending, Anion Gap Pending, BUN Pending, Creatinine Pending, BUN/Creatinine Ratio Pending , Lactic Acid Pending 07/10/17 0555: pH 7.41, pCO2 27 L, pO2 93, HCO3 17 L, ABG O2 Sat (Measured) 97.0, P-50 (Temp Corrected) N, Carboxyhemoglobin 0.6 L, O2 Concentration % .40, Respiration Rate 16, O2 Delivery Method VENT, Vent Mode A/C, Expiratory Pressure 5, Tidal Volume 600, Phlebotomy Draw Site DEANA 07/10/17 0500: Lactic Acid 4.1 H 07/10/17 0500: Anion Gap 13, Estimated GFR 19 L, Glucose 268 H, Calcium 6.8 L, Phosphorus 3.7, Magnesium 1.8, Total Bilirubin 0.6, AST 22, ALT 27, Albumin 1.8 L, CBC w Diff MAN DIFF ORDERED, RBC 5.37, MCV 87.4, MCH 28.4, RDW 16.3 H, MPV 9.7, Gran % 60.5, Lymphocytes % 31.1, Monocytes % 7.9, Eosinophils % 0.1, Basophils % 0.4, Absolute Granulocytes 9.1 H, Segmented Neutrophils Pending, Absolute Lymphocytes 4.7 H, Absolute Monocytes 1.2 H, Absolute Eosinophils 0, Absolute Basophils 0.1, PUBS MCHC 32.5 L 07/10/17 0230: 07/10/17 0230: Lactic Acid 4.4 H 07/10/17 0020: Anion Gap 15, Estimated GFR 24 L, Glucose 240 H, Calcium 7.1 L, Phosphorus 4.6 H, Magnesium 1.9, Total Bilirubin 0.8, AST 24, ALT 22, Troponin I 0.05, Albumin 2.2 L, CBC w Diff MAN DIFF ORDERED, RBC 5.76, MCV 87.4, MCH 28.3, RDW 15.9 H, MPV 9.2, Gran % 58.6, Lymphocytes % 34.9, Monocytes % 6.4, Eosinophils % 0, Basophils % 0.1, Absolute Granulocytes 8.3 H, Segmented Neutrophils 24 L, Band Neutrophils 17 H, Absolute Lymphocytes 4.9 H, Lymphocytes 53 H, Monocytes 5, Absolute Monocytes 0.9 H, Absolute Eosinophils 0, Absolute Basophils 0, Metamyelocytes 1, Platelet Estimate ADEQUATE, Normocytic RBCs VERIFIED, Normochromic RBCs VERIFIED, PUBS MCHC 32.3 L 07/09/17 2343: Lactic Acid 4.1 H 07/09/17 2250: pH 7.34 L, pCO2 25 L, pO2 124 H, HCO3 13 L, ABG O2 Sat (Measured) 97.0, P-50 (Temp Corrected) N, Carboxyhemoglobin 0.8 L, O2 Concentration % 50%, Temperature 99.6, Respiration Rate 16, O2 Delivery Method ESPRIT, Vent Mode AC, Expiratory Pressure 5, Tidal Volume 600, Phlebotomy Draw Site BEVERLY 07/09/172199: Lactic Acid Cancelled 07/09/172003: Lactic Acid 4.3 H, Troponin I 0.05 07/09/172003: Anion Gap 15, Estimated GFR 29 L, Glucose 233 H, Calcium 7.1 L, Phosphorus 5.0 H, Magnesium 1.8, Total Bilirubin 0.7, AST 24, ALT 29, Albumin 2.2 L, CBC w Diff MAN DIFF ORDERED, RBC 5.63, MCV 87.9, MCH 28.3, RDW 16.1 H, Plt Count ND , MPV ND, Gran % 50.1, Lymphocytes % 40.2, Monocytes % 9.7 H, Eosinophils % 0, Basophils % 0, Absolute Granulocytes 6.8 H, Segmented Neutrophils 27 L, Band Neutrophils 23 H, Absolute Lymphocytes 5.4 H, Lymphocytes 39, Monocytes 7, Absolute Monocytes 1.3 H, Absolute Eosinophils 0, Absolute Basophils 0, Metamyelocytes 4 H, Platelet Estimate ADEQUATE, Anisocytosis 1+, PUBS MCHC 32.2 L, Fld Total RBCs Counted 100 07/09/17 1905: pH 7.22 *L, pCO2 38, pO2 118 H, HCO3 15 L, ABG O2 Sat (Measured) 96.0, P-50 ( Temp Corrected) N, Carboxyhemoglobin 1.0 L, O2 Concentration % 60, Temperature 98.1, Respiration Rate 16, O2 Delivery Method ESPRIT, Vent Mode AC, Expiratory Pressure 5, Tidal Volume 600, Phlebotomy Draw Site BEVERLY 07/09/17 1320: Lactic Acid 11.0 H 07/09/17 1320: Anion Gap 24 H, Estimated GFR 39 L, Glucose 312 H, Calcium 9.5, Phosphorus 4.1, Magnesium 1.9, Total Bilirubin 1.2, AST 26, ALT 19 L, Troponin I 0.03, Albumin 3.8, PT 14.5 H, INR 1.39 H, CBC w Diff MAN DIFF ORDERED, RBC 6.39 H, MCV 88.5, MCH 28.0, RDW 15.8 H, MPV 10.7 H, Gran % 61.7, Lymphocytes % 32.4, Monocytes % 5.6, Eosinophils % 0, Basophils % 0.3, Absolute Granulocytes 8.7 H, Segmented Neutrophils 31 L, Band Neutrophils 24 H, Absolute Lymphocytes 4.6 H , Lymphocytes 39, Monocytes 6, Absolute Monocytes 0.8 H, Absolute Eosinophils 0 , Absolute Basophils 0, Platelet Estimate VERIFIED BY SMEAR, Polychromasia 1+, Anisocytosis 1+, PUBS MCHC 31.6 L 07/09/17 1149: Troponin I Cancelled 07/09/17 1100: Lactic Acid Cancelled 07/09/17 0733: Lactic Acid 6.8 H 07/09/17 0733: Anion Gap 22 H, Estimated GFR > 60, BUN/Creatinine Ratio 22.0, CBC w Diff MAN DIFF ORDERED, RBC 5.55, MCV 88.0, MCH 29.0, RDW 16.0 H, MPV 10.0, Gran % 67.9, Lymphocytes % 26.5, Monocytes % 5.4, Eosinophils % 0, Basophils % 0.2, Absolute Granulocytes 9.5 H, Segmented Neutrophils 47, Band Neutrophils 24 H, Absolute Lymphocytes 3.7 H, Lymphocytes 24, Monocytes 5, Absolute Monocytes 0.8 H, Absolute Eosinophils 0, Absolute Basophils 0, Platelet Estimate VERIFIED BY SMEAR, Polychromasia 1+, Anisocytosis 1+, PUBS MCHC 32.9 L 07/09/17 0515: Lactic Acid 3.4 H 07/09/17 0045: Troponin I < 0.01 07/09/17 0045: Lactic Acid 3.8 H 07/08/17 1736: Lactic Acid Cancelled 07/08/17 1524: Anion Gap 17 H, Estimated GFR > 60, BUN/Creatinine Ratio 23.3, Glucose 199 H, Lactic Acid 3.6 H, Calcium 9.6, Magnesium 1.8, Total Bilirubin 1.4 H, Direct Bilirubin 0.7 H, AST 26, ALT 25, Alkaline Phosphatase 89, Creatine Kinase 103, Troponin I 0.02, Ugc-S-Txxwqaimemd Pept 1540 H, Total Protein 6.8, Albumin 3.9, Globulin 2.9, Albumin/Globulin Ratio 1.3, PT 14.8 H, INR 1.41 H, APTT 29, CBC w Diff NO MAN DIFF REQ, RBC 5.18, MCV 86.7, MCH 28.4, RDW 15.8 H, MPV 9.0, Gran % 81.8 H, Lymphocytes % 10.1 L, Monocytes % 8.0, Eosinophils % 0, Basophils % 0.1, Absolute Granulocytes 12.4 H, Absolute Lymphocytes 1.5, Absolute Monocytes 1.2 H, Absolute Eosinophils 0, Absolute Basophils 0, PUBS MCHC 32.8 L 07/08/17 1510: Urine Color YEL, Urine Clarity HAZY H, Urine pH 6.0, Ur Specific [place] >= 1.030, Urine Protein 100 H, Urine Ketones 15 H, Urine Nitrite POS H, Urine Bilirubin NEG, Urine Urobilinogen 0.2, Ur Leukocyte Esterase MOD H, Ur Microscopic SEDIMENT EXAMINED, Urine RBC 50-75 H, Urine WBC 25-50 H, Ur Epithelial Cells FEW, Urine Bacteria MANY H, Urine Hemoglobin LARGE H, Urine Glucose NEG 07/08/17 1449: Azb-D-Cbbekycwwlw Pept Cancelled 07/08/17 1437: Magnesium Cancelled Microbiology 07/08 2340 NASOPHARYN: Influenza Virus A & B Rapid Smear - COMP Assessment/Plan Impression/Plan: Afebrile. He is sedated but minimally responsive on the ventilator. Skin reveals no rash. HEENT negative. Neck supple with no adenopathy; right IJ triple-lumen catheter in place, with no inflammation at the site. Lungs decreased breath sounds bilaterally. Heart regular rhythm with no murmur. Abdomen is obese, distended, tender to palpation, with positive bowel sounds. Back no CVA tenderness. Extremities right hip incision clean, with no erythema or drainage; uperficial ulcerations over the anterior tibial aspects of both legs, with 1+ edema bilaterally. Neuro is without focality. Duvall catheter is in place with minimal urine output. IMPRESSION This is a 76-year-old gentleman with significant ischemic heart, low ejection fraction, atrial fibrillation, previous AICD, recent 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 with prolonged antibiotic, previous history of peptic ulcer disease, diabetes, previous chronic kidney disease but however his creatinine which was normal upon admission, was in sinus rhythm upon admission was on Tikosyn, hyperlipidemia, apparently has never smoked before, previous history of lithotripsy, CABG, hip prosthesis infection status post removal in early 2017 now has the following issues * Significant metabolic acidosis, respiratory failure, septic shock from a large perforation of his duodenal ulcer with intra-abdominal sepsis status post surgery. * Acute respiratory insufficiency due to above with no clinical evidence suggestive of pneumonia * Significant septic shock now requiring vasopressor with adequate fluid resuscitation ongoing so for * Significant ischemic heart disease with low ejection fraction high risk for fluid overload. Previous pafib in sinus now with a pacer and AICD * Metabolic acidosis, respiratory alkalosis, metabolic alkalosis mostly related to his aggressive saline replacement with normal pH at this time * Acute renal failure most likely related to acute tubular necrosis from his septic shock and perforated bowel * Significant diabetes with the previous CLARISA inhibitor use as well * Multiple electrolyte abnormality * Significant intra-abdominal sepsis with previous hip infection now on broad- spectrum antibiotics. His sepsis is probably related to his perforated bowel with peritonitis however he did have a positive urine culture which she is being adequately treated for. He has also had previous history of infection of the right hip and infectious disease loans consultant thinks that he probably has no clinical evidence suggestive of right hip infection at this present time * LIAM was on cpap * Infected hip before now no clinical evidence of active infection RECOMMENDATION * Continue mechanical ventilator, increase his respiratory to 25 * Continue his fentanyl low-dose * Continue intravenous fluid and keep his CVP around 4-6 as he has significant cardiomyopathy. His IV fluid should be D5 normal saline and subsequently scan be switched to D5 half-normal saline if he continues to be hyperchloremic * Did not give any further bicarbonate unless this pH is less than 7.0 or if he is profoundly hypotensive despite maximum doses of levo fed * Check his ionized calcium and he might require dose of calcium * Gentle replacement of magnesium in the future * Bladder scan and see whether he does have any issues with his Duvall and trend his urine for analysis, actual excretion of sodium. * Continue broad-spectrum antibiotics * Intravenous pantoprazole continuous drip or can be switched to 40 mg IV every 12 hours which is traditionally better than the continuous drip * Heparin subcutaneous * Repeat chest x-ray today * Echocardiogram pending * Continue checking his EKG and rule out AR * Daily labs, random cortisol, TSh * Repeat his INR * Keep him intubated Consult Acknowledgment - Thank you for your consult request.
--- NOTE | 2017-07-10 11:17 | RADIOLOGY REPORT ---
EXAMINATION: XR PORTABLE CHEST CLINICAL INFORMATION: Hypoxia COMPARISON: 07/09/2017 TECHNIQUE: Portable frontal view of the chest was obtained. FINDINGS: Endotracheal tube is located 5.5 cm above the kika. The tip of the right IJ central line is in the distal superior vena cava. No pneumothorax. Minimal atelectasis in the lingula adjacent to the cardiac fat pad. There might be an enteric tube, but it is poorly visualized. Again noted is a left pectoral cardiac pacemaker/AICD with transvenous leads extending to the right atrium and right ventricle. Stable appearance of the large cardiac silhouette. No evidence of cephalization of pulmonary venous flow, interstitial edema or overt pleural effusion. IMPRESSION: 1. Stable cardiomegaly. 2. No evidence of acute pulmonary edema.
[2017-07-10 12:00] VITALS: BP 92/60
[2017-07-10 12:32] LABS: PT 17.7 SEC (9.4-12.5)
--- NOTE | 2017-07-10 13:57 | PN- Cardiology ---
Subjective Subjective: The patient remains intubated and sedated. He is noted to have a 17 second run of ventricular tachycardia on telemetry. He has not had any recent activation of his defibrillator, which was confirmed with interrogation of the defibrillator. Further history is not obtainable. Objective Vital Signs and I&Os Vital Signs Date Time Temp Pulse Resp B/P B/P Pulse O2 O2 Flow FiO2 Mean Ox Delivery Rate 07/10 1125 40 07/10 1017 103/68 07/10 0912 40 07/10 0605 40 07/10 0304 40 07/10 0216 97.9 113 32 108/60 07/10 0049 40 07/10 0000 97.9 102 32 96/64 96 Ventilator 40% 07/10 0000 96 Ventilator 40% 07/09 2210 50 07/09 2030 97 Ventilator 50% 07/09 1835 60 Intake & Output 07/10 1600 07/10 0800 07/10 0000 07/09 1600 07/09 0800 07/09 0000 Intake Total 3767 3590 320 1200 1560 Output Total 903 467 110 650 950 Balance 2864 3123 210 550 610 Intake, IV 3767 3590 320 1200 1510 Intake, Oral 0 50 Output, 640 230 Drainage Output, 200 200 Gastric Drainage Output, Urine 63 37 110 650 950 Patient 266 lb 257 lb Weight Weight Bed scale Reported by Patient Measurement Method Physical Exam: Gen: The patient is intubated and sedated HEENT: Normal nose, ears, and oropharynx. Pupils equal bilaterally. Conjunctiva normal. Neck: Supple with no JVD, no masses, and no thyromegaly Lungs: Clear to auscultation with normal respiratory effort Heart: RRR, S1, S2, 1/6 systolic murmur. No peripheral edema, 2+ pulses in the lower extremities bilaterally Abdomen: Soft, nontender, no masses. No hepatomegaly. No splenomegaly Extremities: No clubbing or cyanosis. Normal muscle strength in the upper and lower extremities Skin: Normal skin turgor with no skin ulcers or lesions noted. Current Medications: Current Medications Sig/Buck Start time Last Medication Dose Route Stop Time Status Admin Acetaminophen 1,000 MG Q6H PRN 07/09 1900 AC N/A 1 UNIT IV Acetaminophen 1,000 MG Q6H PRN 07/09 1200 DC N/A 1 UNIT IV Budesonide/ 2 PUF BID 11/04 2200 AC Formoterol Fumarate INH Budesonide/ 2 PUF BID 07/08 2200 DC 07/08 Formoterol Fumarate INH 2234 Calcium Gluconate 1 GM ONCE ONE 07/10 0130 DC 07/10 Sodium Chloride 100 ML IV 07/10 0229 0130 Ceftazidime 1,000 MG Q12 07/09 2200 CAN IV Ceftazidime 1,000 MG Q8H 07/09 1300 DC 07/09 IV 1416 Dextrose 25 GM ONCE ONE 07/10 0200 DC 07/10 IV 07/10 0201 0123 Dextrose/Sodium 1,000 ML Q6H 07/10 1015 AC 07/10 Chloride IV 1017 Enoxaparin Sodium 40 MG DAILY 07/08 1846 DC 07/08 SC 2234 Fentanyl Citrate 1,000 MCG Q13H 07/10 2300 AC Dextrose/Water 250 ML IV Fentanyl Citrate 1,000 MCG Q24H 07/09 1815 AC 07/10 Dextrose/Water 250 ML IV 07/10 2259 1017 Fentanyl Citrate 200 MCG .STK-MED ONE 07/09 1527 DC IM 07/09 1528 Heparin Sodium 5,000 UNIT Q8 07/10 0138 AC 07/10 (Porcine) SC 1324 Hydromorphone HCl 2 MG .STK-MED ONE 07/09 1526 DC IM 07/09 1527 Insulin Aspart 0 TIDAC 07/10 0800 CAN SC Insulin Aspart 10 UNITS ONCE ONE 07/10 0200 CAN SC 07/10 0201 Insulin Aspart 0 TIDAC 07/09 0800 DC SC Insulin Human Regular 10 UNITS ONCE ONE 07/10 0115 DC 07/10 IV 07/10 0116 0125 Insulin Human Regular 0 Q4 07/09 2200 AC 07/10 SC 1348 Ketamine HCl 50 MG .STK-MED ONE 07/09 1554 DC IM 07/09 1555 Magnesium Sulfate 1 GM Q2H 07/10 1400 UNVr Dextrose/Water 100 ML IV 07/10 1759 Meropenem 1 GM Q24 07/11 1000 DC IV Meropenem 1 GM Q24H 07/11 0500 AC IV Meropenem 1 GM Q8H 07/10 0500 DC 07/10 IV 0541 Meropenem 1 GM IQ8 07/09 1915 DC 07/09 IV 2058 Metronidazole 500 MG Q8H 07/10 0600 DC 07/10 N/A 1 UNIT IV 0541 Metronidazole 500 MG Q8H 07/09 1900 DC 07/09 N/A 1 UNIT IV 2200 Metronidazole 500 MG Q8H 07/09 1300 DC 07/09 N/A 1 UNIT IV 1416 Midazolam HCl 2 MG .STK-MED ONE 07/09 1527 DC IM 07/09 1528 Morphine Sulfate 2 MG Q4P PRN 07/09 1900 DC IV Morphine Sulfate 2 MG ONCE ONE 07/09 1900 CAN IV 07/09 1901 Morphine Sulfate 2 MG Q4P PRN 07/08 1900 DC 07/09 IV 0100 Norepinephrine 4 MG Q8H 07/10 1800 AC Sodium Chloride 250 ML IV Norepinephrine 4 MG Q12H 07/10 1200 AC 07/10 Sodium Chloride 250 ML IV 07/10 1759 1017 Norepinephrine 4 MG Q24H 07/09 2345 DC 07/10 Sodium Chloride 250 ML IV 0216 Nystatin 1 GENE TID 07/09 2200 AC 07/10 TOP 0951 Nystatin 1 GENE TID 07/09 0015 DC TOP Pantoprazole Sodium 40 MG BID 07/10 1016 AC 07/10 IV 1207 Pantoprazole Sodium 80 MG Q10H 07/09 1930 DC 07/10 Sodium Chloride 100 ML IV 0423 Sodium Bicarbonate 150 MEQ ONCE ONE 07/10 0845 CAN Dextrose/Water 1,000 ML IV 07/10 1344 Sodium Bicarbonate 150 MEQ ONCE ONE 07/10 0115 DC 07/10 Dextrose/Water 1,000 ML IV 07/10 0614 0255 Sodium Chloride 1,000 ML BOLUS ONE 07/10 1130 DC 07/10 IV 07/10 1229 1132 Sodium Chloride 500 ML BOLUS ONE 07/10 1115 CAN IV 07/10 1214 Sodium Chloride 1,000 ML BOLUS ONE 07/10 0845 DC 07/10 IV 07/10 0944 0854 Sodium Chloride 1,000 ML BOLUS ONE 07/10 0315 DC 07/10 IV 07/10 0514 0334 Sodium Chloride 1,000 ML BOLUS ONE 07/10 0045 DC 07/10 IV 07/10 0144 0045 Sodium Chloride 1,000 ML BOLUS ONE 07/09 2145 DC 07/09 IV 07/09 2244 2216 Sodium Chloride 1,000 ML Q6H 07/09 2030 DC 07/09 IV 07/10 0229 2106 Sodium Chloride 1,000 ML BOLUS ONE 07/09 1900 DC 07/09 IV 07/09 1959 191 Sodium Chloride 1,000 ML Q6H 07/09 1245 DC 07/09 IV 07/09 1844 1415 Sodium Chloride 1,000 ML Q20H 07/09 1015 DC IV 07/10 1614 Sodium Polystyrene 60 ML ONCE ONE 07/10 0130 CAN Sulfonate PO 07/10 0131 Vancomycin HCl 1,500 MG ONCE ONE 07/09 1815 DC 07/09 Sodium Chloride 250 ML IV 07/09 1944 191 Results Last 48 Hrs of Labs/Mics: Laboratory Tests 07/10/17 1245: Urine Color Pending, Urine Clarity Pending, Urine pH Pending, Ur Specific [place] Pending, Urine Protein Pending, Urine Ketones Pending, Urine Nitrite Pending, Urine Bilirubin Pending, Urine Urobilinogen Pending, Ur Leukocyte Esterase Pending, Ur Microscopic Pending, Urine Hemoglobin Pending, Urine Glucose Pending 07/10/17 1245: Urine Osmolality 375, Ur Random Creatinine 141.8, Ur Random Sodium 38, Ur Random Potassium 46.3, Fraction Sodium Excret 0.7 07/10/17 1158: Anion Gap 13, Estimated GFR 16 L, Glucose 241 H, Lactic Acid 4.0 H, Calcium 6.5 L, Phosphorus 3.8, Magnesium 1.7, Total Bilirubin 0.5, AST 25, ALT 24, Albumin 1.8 L, PT 17.7 H, INR 1.69 H 07/10/17 1112: Ionized Calcium Pending 07/10/17 0845: Anion Gap 15, Estimated GFR 16 L, BUN/Creatinine Ratio 13.0, Lactic Acid 4.6 H , Phosphorus 3.8, Magnesium 1.8, Troponin I 0.07, TSH 2.210, Cortisol AM Sample 64.1 H 07/10/17 0555: pH 7.41, pCO2 27 L, pO2 93, HCO3 17 L, ABG O2 Sat (Measured) 97.0, P-50 (Temp Corrected) N, Carboxyhemoglobin 0.6 L, O2 Concentration % .40, Respiration Rate 16, O2 Delivery Method VENT, Vent Mode A/C, Expiratory Pressure 5, Tidal Volume 600, Phlebotomy Draw Site [place] 07/10/17 0500: Lactic Acid 4.1 H 07/10/17 0500: Anion Gap 13, Estimated GFR 19 L, Glucose 268 H, Calcium 6.8 L, Phosphorus 3.7, Magnesium 1.8, Total Bilirubin 0.6, AST 22, ALT 27, Albumin 1.8 L, CBC w Diff MAN DIFF ORDERED, RBC 5.37, MCV 87.4, MCH 28.4, RDW 16.3 H, MPV 9.7, Gran % 60.5, Lymphocytes % 31.1, Monocytes % 7.9, Eosinophils % 0.1, Basophils % 0.4, Absolute Granulocytes 9.1 H, Segmented Neutrophils 26 L, Band Neutrophils 24 H, Absolute Lymphocytes 4.7 H, Lymphocytes 38, Monocytes 12 H, Absolute Monocytes 1.2 H, Absolute Eosinophils 0, Absolute Basophils 0.1, Platelet Estimate VERIFIED BY SMEAR, Poikilocytosis 1+, Anisocytosis 1+, Gallagher Cells 1+, PUBS MCHC 32.5 L 07/10/17 0230: 07/10/17 0230: Lactic Acid 4.4 H 07/10/17 0020: Anion Gap 15, Estimated GFR 24 L, Glucose 240 H, Calcium 7.1 L, Phosphorus 4.6 H, Magnesium 1.9, Total Bilirubin 0.8, AST 24, ALT 22, Troponin I 0.05, Albumin 2.2 L, CBC w Diff MAN DIFF ORDERED, RBC 5.76, MCV 87.4, MCH 28.3, RDW 15.9 H, MPV 9.2, Gran % 58.6, Lymphocytes % 34.9, Monocytes % 6.4, Eosinophils % 0, Basophils % 0.1, Absolute Granulocytes 8.3 H, Segmented Neutrophils 24 L, Band Neutrophils 17 H, Absolute Lymphocytes 4.9 H, Lymphocytes 53 H, Monocytes 5, Absolute Monocytes 0.9 H, Absolute Eosinophils 0, Absolute Basophils 0, Metamyelocytes 1, Platelet Estimate ADEQUATE, Normocytic RBCs VERIFIED, Normochromic RBCs VERIFIED, PUBS MCHC 32.3 L 07/09/17 2343: Lactic Acid 4.1 H 07/09/17 2250: pH 7.34 L, pCO2 25 L, pO2 124 H, HCO3 13 L, ABG O2 Sat (Measured) 97.0, P-50 (Temp Corrected) N, Carboxyhemoglobin 0.8 L, O2 Concentration % 50%, Temperature 99.6, Respiration Rate 16, O2 Delivery Method ESPRIT, Vent Mode AC, Expiratory Pressure 5, Tidal Volume 600, Phlebotomy Draw Site [place] 07/09/17 2200: Lactic Acid Cancelled 07/09/172003: Lactic Acid 4.3 H, Troponin I 0.05 07/09/172003: Anion Gap 15, Estimated GFR 29 L, Glucose 233 H, Calcium 7.1 L, Phosphorus 5.0 H, Magnesium 1.8, Total Bilirubin 0.7, AST 24, ALT 29, Albumin 2.2 L, CBC w Diff MAN DIFF ORDERED, RBC 5.63, MCV 87.9, MCH 28.3, RDW 16.1 H, Plt Count ND , MPV ND, Gran % 50.1, Lymphocytes % 40.2, Monocytes % 9.7 H, Eosinophils % 0, Basophils % 0, Absolute Granulocytes 6.8 H, Segmented Neutrophils 27 L, Band Neutrophils 23 H, Absolute Lymphocytes 5.4 H, Lymphocytes 39, Monocytes 7, Absolute Monocytes 1.3 H, Absolute Eosinophils 0, Absolute Basophils 0, Metamyelocytes 4 H, Platelet Estimate ADEQUATE, Anisocytosis 1+, PUBS MCHC 32.2 L, Fld Total RBCs Counted 100 07/09/17 1905: pH 7.22 *L, pCO2 38, pO2 118 H, HCO3 15 L, ABG O2 Sat (Measured) 96.0, P-50 ( Temp Corrected) N, Carboxyhemoglobin 1.0 L, O2 Concentration % 60, Temperature 98.1, Respiration Rate 16, O2 Delivery Method ESPRIT, Vent Mode AC, Expiratory Pressure 5, Tidal Volume 600, Phlebotomy Draw Site [place] 07/09/17 1320: Lactic Acid 11.0 H 07/09/17 1320: Anion Gap 24 H, Estimated GFR 39 L, Glucose 312 H, Calcium 9.5, Phosphorus 4.1, Magnesium 1.9, Total Bilirubin 1.2, AST 26, ALT 19 L, Troponin I 0.03, Albumin 3.8, PT 14.5 H, INR 1.39 H, CBC w Diff MAN DIFF ORDERED, RBC 6.39 H, MCV 88.5, MCH 28.0, RDW 15.8 H, MPV 10.7 H, Gran % 61.7, Lymphocytes % 32.4, Monocytes % 5.6, Eosinophils % 0, Basophils % 0.3, Absolute Granulocytes 8.7 H, Segmented Neutrophils 31 L, Band Neutrophils 24 H, Absolute Lymphocytes 4.6 H , Lymphocytes 39, Monocytes 6, Absolute Monocytes 0.8 H, Absolute Eosinophils 0 , Absolute Basophils 0, Platelet Estimate VERIFIED BY SMEAR, Polychromasia 1+, Anisocytosis 1+, PUBS MCHC 31.6 L 07/09/17 1149: Troponin I Cancelled 07/09/17 1100: Lactic Acid Cancelled 07/09/17 0733: Lactic Acid 6.8 H 07/09/17 0733: Anion Gap 22 H, Estimated GFR > 60, BUN/Creatinine Ratio 22.0, CBC w Diff MAN DIFF ORDERED, RBC 5.55, MCV 88.0, MCH 29.0, RDW 16.0 H, MPV 10.0, Gran % 67.9, Lymphocytes % 26.5, Monocytes % 5.4, Eosinophils % 0, Basophils % 0.2, Absolute Granulocytes 9.5 H, Segmented Neutrophils 47, Band Neutrophils 24 H, Absolute Lymphocytes 3.7 H, Lymphocytes 24, Monocytes 5, Absolute Monocytes 0.8 H, Absolute Eosinophils 0, Absolute Basophils 0, Platelet Estimate VERIFIED BY SMEAR, Polychromasia 1+, Anisocytosis 1+, PUBS MCHC 32.9 L 07/09/17 0515: Lactic Acid 3.4 H 07/09/17 0045: Troponin I < 0.01 07/09/17 0045: Lactic Acid 3.8 H 07/08/17 1736: Lactic Acid Cancelled 07/08/17 1524: Anion Gap 17 H, Estimated GFR > 60, BUN/Creatinine Ratio 23.3, Glucose 199 H, Lactic Acid 3.6 H, Calcium 9.6, Magnesium 1.8, Total Bilirubin 1.4 H, Direct Bilirubin 0.7 H, AST 26, ALT 25, Alkaline Phosphatase 89, Creatine Kinase 103, Troponin I 0.02, Fav-V-Rlkilyukhhw Pept 1540 H, Total Protein 6.8, Albumin 3.9, Globulin 2.9, Albumin/Globulin Ratio 1.3, PT 14.8 H, INR 1.41 H, APTT 29, CBC w Diff NO MAN DIFF REQ, RBC 5.18, MCV 86.7, MCH 28.4, RDW 15.8 H, MPV 9.0, Gran % 81.8 H, Lymphocytes % 10.1 L, Monocytes % 8.0, Eosinophils % 0, Basophils % 0.1, Absolute Granulocytes 12.4 H, Absolute Lymphocytes 1.5, Absolute Monocytes 1.2 H, Absolute Eosinophils 0, Absolute Basophils 0, PUBS MCHC 32.8 L 07/08/17 1510: Urine Color YEL, Urine Clarity HAZY H, Urine pH 6.0, Ur Specific [place] >= 1.030, Urine Protein 100 H, Urine Ketones 15 H, Urine Nitrite POS H, Urine Bilirubin NEG, Urine Urobilinogen 0.2, Ur Leukocyte Esterase MOD H, Ur Microscopic SEDIMENT EXAMINED, Urine RBC 50-75 H, Urine WBC 25-50 H, Ur Epithelial Cells FEW, Urine Bacteria MANY H, Urine Hemoglobin LARGE H, Urine Glucose NEG 07/08/17 1449: Yly-W-Lgieazpifti Pept Cancelled 07/08/17 1437: Magnesium Cancelled Microbiology 07/08 2340 NASOPHARYN: Influenza Virus A & B Rapid Smear - COMP 07/08 151 URINE ROUT: Urine Culture - COMP ESCHERICHIA COLI Recent Imaging Studies: Chest x-ray: 1. Stable cardiomegaly. 2. No evidence of acute pulmonary edema. Assessment/Plan Assessment/Plan Assessment: 1. Coronary artery disease 2. Ischemic cardiomyopathy 3. Paroxysmal atrial fibrillation 4. Ventricular tachycardia Plan: * Cardiac medications are on hold while unable to take by mouth. * Continue norepinephrine for blood pressure support. Wean off pressors as soon as possible. * No treatment is needed at this time for the single episode of nonsustained ventricular tachycardia. If the patient continues to have significant ventricular arrhythmias or if his defibrillator fires, we will consider adding IV amiodarone while unable to take dofetilide. Continue telemetry? Yes
--- NOTE | 2017-07-10 14:01 | Event Note ---
Event Note Event Note: Around 13:30 patient had a 17 sec V-Tach. Informed Dr. García. Spoke with [employer] and it revealed a 17 sec V-Tach that did not require Rx, and also found out that his battery needs replacement. If patient continues to have significant ventricular arrhythmias or if ACID fires, would touch base with cardiology to consider starting amiodarone.
[2017-07-10 16:00] VITALS: BP 100/58
--- NOTE | 2017-07-10 16:34 | Cons- Nephrology ---
General Information and HPI Consulting Request Date of Consult: 07/10/17 Requested By: JACOOB HALL MD Reason for Consult: USMAN Source of Information: patient, old records Exam Limitations: clinical condition History of Present Illness: The patient is a 76-year-old male with a history of coronary artery disease s/p CABG, COPD, ischemic cardiomyopathy with a low EF, history of V. tac, diabetes, hypertension, without prior renal disease. He was recently admitted with a prosthetic hip infection status post removal of hardware with insertion of antibiotic spacer, and completion of 6 weeks of intravenous Unasyn for treatment of enterococcal infection. Readmitted 2 days ago on July 08 with chief complaint of abdominal plain. Initial CAT scan without contrast negative for acute process. Patient mid to the floor however then developed worsening abdominal pain with severe lactic acidosis and CAT scan revealed free air consistent with a bowel perforation. Received IV contrast with CT scan. Proctocort yesterday afternoon for exploratory laparotomy and found to have perforated an ulcer in the duodenum status post patch repair. Patient was profoundly volume depleted at that time with perioperative hypotension, and a hemoglobin that hemoconcentrated up to 18. He is now in ICU, intubated, and on norepinephrine. Coarse compensated by nonsustained ventricular tachycardia and acute renal failure. Creatinine was 1.0 on admission, in setting of shock and IV contrast exposure has risen up to the threes with anuria. After aggressive volume resuscitation today starting to make a bit of dark concentrated urine. CPK normal at 103. No hydronephrosis on CAT scan. Patient currently intubated and sedated and unable to provide any history. Allergies/Medications Allergies: Coded Allergies: NO KNOWN ALLERGIES (03/22/12) NKA PER DIPYRIDAMOLE ORDER SHEET - [facility] Home Med List: Aspirin (Ecotrin*) 81 MG TABLET.DR 1 TAB PO DAILY HEART/BLOOD (Reported) Carvedilol 6.25 MG TABLET 1 TAB PO BID HEART (Reported) Dofetilide 500 MCG CAPSULE 1 CAP PO BID HEART (Reported) Fluticasone-Salmeterol (Advair 100-50 Diskus) 100 MCG-50 MCG/DOSE BLST.W.DEV 1 PUF INH BID COPD (Reported) Liraglutide (Victoza 3-Myles) 0.6 MG/0.1 ML (18 MG/3 ML) PEN.INJCTR 1.2 MG SC QAM DIABETES (Reported) Lisinopril (Prinivil) 5 MG TABLET 1 TAB PO QHS HEART/BP (Reported) Magnesium Gluconate (Mag-G) 27 MG (500 MG) TABLET 1 TAB PO Tuesday SUPPLEMENT (Reported) Metformin HCl 500 MG TABLET 1 TAB PO BID DIABETES (Reported) Anderson-3/Dha/Epa/Fish Oil (Fish Oil 500 MG Softgel) 60 MG-90 MG-500 MG CAPSULE 1 CAP PO QPM SUPPLEMENT (Reported) Simvastatin (Zocor*) 10 MG TABLET 1 TAB PO QHS CHOLESTEROL (Reported) Tamsulosin HCl (Flomax) 0.4 MG CAP.ER.24H 1 CAP PO DAILY PROSTATE (Reported) Vitamin E Acetate (Vitamin E) 400 UNIT CAPSULE 1 CAP PO BID SUPPLEMENT ( Reported) Current Medications: Current Medications Sig/Buck Start time Last Medication Dose Route Stop Time Status Admin Acetaminophen 1,000 MG Q6H PRN 07/09 1900 AC N/A 1 UNIT IV Acetaminophen 1,000 MG Q6H PRN 07/09 1200 DC N/A 1 UNIT IV Budesonide/ 2 PUF BID 07/09 2200 AC Formoterol Fumarate INH Budesonide/ 2 PUF BID 07/08 2200 DC 07/08 Formoterol Fumarate INH 2234 Calcium Gluconate 1 GM ONCE ONE 07/10 0130 DC 07/10 Sodium Chloride 100 ML IV 07/10 0229 0130 Ceftazidime 1,000 MG Q12 07/09 2200 CAN IV Ceftazidime 1,000 MG Q8H 07/09 1300 DC 07/09 IV 1416 Dextrose 25 GM ONCE ONE 07/10 0200 DC 07/10 IV 07/10 0201 0123 Dextrose/Sodium 1,000 ML Q6H 07/10 1015 AC 07/10 Chloride IV 1622 Enoxaparin Sodium 40 MG DAILY 07/08 1846 DC 07/08 SC 2234 Fentanyl Citrate 1,000 MCG Q13H 07/10 2300 AC Dextrose/Water 250 ML IV Fentanyl Citrate 1,000 MCG Q24H 07/09 1815 AC 07/10 Dextrose/Water 250 ML IV 07/10 2259 1017 Heparin Sodium 5,000 UNIT Q8 07/10 0138 AC 07/10 (Porcine) SC 1324 Insulin Aspart 0 TIDAC 07/10 0800 CAN SC Insulin Aspart 10 UNITS ONCE ONE 07/10 0200 CAN SC 07/10 0201 Insulin Aspart 0 TIDAC 07/09 0800 DC SC Insulin Human Regular 10 UNITS ONCE ONE 07/10 0115 DC 07/10 IV 07/10 0116 0125 Insulin Human Regular 0 Q4 07/09 2200 AC 07/10 SC 1348 Magnesium Sulfate 1 GM Q2H 07/10 1400 AC 07/10 Dextrose/Water 100 ML IV 07/10 1759 1607 Meropenem 1 GM Q24 07/11 1000 DC IV Meropenem 1 GM Q24H 07/11 0500 AC IV Meropenem 1 GM Q8H 07/10 0500 DC 07/10 IV 0541 Meropenem 1 GM IQ8 07/09 1915 DC 07/09 IV 2058 Metronidazole 500 MG Q8H 07/10 0600 DC 07/10 N/A 1 UNIT IV 0541 Metronidazole 500 MG Q8H 07/09 1900 DC 07/09 N/A 1 UNIT IV 2200 Metronidazole 500 MG Q8H 07/09 1300 DC 07/09 N/A 1 UNIT IV 1416 Morphine Sulfate 2 MG Q4P PRN 07/09 1900 DC IV Morphine Sulfate 2 MG ONCE ONE 07/09 1900 CAN IV 07/09 1901 Morphine Sulfate 2 MG Q4P PRN 07/08 1900 DC 07/09 IV 0100 Norepinephrine 4 MG Q8H 07/10 1800 AC Sodium Chloride 250 ML IV Norepinephrine 4 MG Q12H 07/10 1200 AC 07/10 Sodium Chloride 250 ML IV 07/10 1759 1017 Norepinephrine 4 MG Q24H 07/09 2345 DC 07/10 Sodium Chloride 250 ML IV 0216 Nystatin 1 GENE TID 07/09 2200 AC 07/10 TOP 1511 Nystatin 1 GENE TID 07/09 0015 DC TOP Pantoprazole Sodium 40 MG BID 07/10 1016 AC 07/10 IV 1207 Pantoprazole Sodium 80 MG Q10H 07/09 1930 DC 07/10 Sodium Chloride 100 ML IV 0423 Sodium Bicarbonate 150 MEQ ONCE ONE 07/10 0845 CAN Dextrose/Water 1,000 ML IV 07/10 1344 Sodium Bicarbonate 150 MEQ ONCE ONE 07/10 0115 DC 07/10 Dextrose/Water 1,000 ML IV 07/10 0614 0255 Sodium Chloride 1,000 ML BOLUS ONE 07/10 1130 DC 07/10 IV 07/10 1229 1132 Sodium Chloride 500 ML BOLUS ONE 07/10 1115 CAN IV 07/10 1214 Sodium Chloride 1,000 ML BOLUS ONE 07/10 0845 DC 07/10 IV 07/10 0944 0854 Sodium Chloride 1,000 ML BOLUS ONE 07/10 0315 DC 07/10 IV 07/10 0514 0334 Sodium Chloride 1,000 ML BOLUS ONE 07/10 0045 DC 07/10 IV 07/10 0144 0045 Sodium Chloride 1,000 ML BOLUS ONE 07/09 2145 DC 07/09 IV 07/09 2244 2216 Sodium Chloride 1,000 ML Q6H 07/09 2030 DC 07/09 IV 07/10 0229 2106 Sodium Chloride 1,000 ML BOLUS ONE 07/09 1900 DC 07/09 IV 07/09 1959 1917 Sodium Chloride 1,000 ML Q6H 07/09 1245 DC 07/09 IV 07/09 1844 1415 Sodium Chloride 1,000 ML Q20H 07/09 1015 DC IV 07/10 1614 Sodium Polystyrene 60 ML ONCE ONE 07/10 0130 CAN Sulfonate PO 07/10 0131 Vancomycin HCl 1,500 MG ONCE ONE 07/09 1815 DC 07/09 Sodium Chloride 250 ML IV 07/09 1944 1916 Review of Systems Review of Systems: Unable to obtain as intubated and sedated Past History Travel History Traveled to [place] past 21 day No Medical History Blood Transfusion Hx: No Neurological: NONE EENT: hearing loss Cardiovascular: AFIB, CAD, cardiomyopathy (ischemic), chronic venous insuff, hypertension, myocardial infarction, RCW AICD S/P CABG 2003 Respiratory: bronchitis, SLEEP APNEA Gastrointestinal: upper GI bleed Hepatic: NONE Renal: benign prost hyperplasia, nephrolithiasis Musculoskeletal: falls Psychiatric: NONE Endocrine: obesity, DIABETES TYPE 2 Blood Disorders: NONE Cancer(s): NONE WOUND TREATMENT RN/Reproductive: NONE Surgical History Surgical History: CABG, hip replacement (right), s/p lithotripsy HIP PROSTHESIS INFECTION S/P REMOVAL 2016 Family History Relations & Conditions If Any: MOTHER, , Age 60+; Cause: Heart disease. FH: heart disease BROTHER FH: lung cancer FATHER FH: prostate cancer Psychosocial History Who Do You Live With? with nephew Services at Home: None Primary Language: Polish Smoking Status: Never Smoked Functional Ability ADLs Independent: eating. Needs Assist: dressing, toileting, bathing. Ambulation: walker IADLs Needs Assist: shopping, housework, finances, food prep, telephone, transportation, medication admin. Exam & Diagnostic Data Vital Signs and I&O Vital Signs Date Time Temp Pulse Resp B/P B/P Pulse O2 O2 Flow FiO2 Mean Ox Delivery Rate 07/10 1500 50 07/10 1434 40 07/10 1200 96 Ventilator 40% 07/10 1200 99.1 102 28 92/60 96 Ventilator 40% 07/10 1125 40 07/10 1017 103/68 07/10 0912 40 07/10 0800 97 Ventilator 40% 07/10 0800 99.0 114 33 70/0 97 Ventilator 40% 07/10 0605 40 07/10 0304 40 07/10 0216 97.9 113 32 108/60 07/10 0049 40 07/10 0000 97.9 102 32 96/64 96 Ventilator 40% 07/10 0000 96 Ventilator 40% 07/09 2210 50 07/09 2030 97 Ventilator 50% 07/09 1835 60 Intake & Output 07/10 1600 07/10 0400 07/09 1600 07/09 0400 07/08 1600 07/08 0400 Intake Total 7465.3 3590 1520 1560 Output Total 1668 467 760 950 Balance 5797.3 3123 760 610 Intake, IV 7465.3 3590 1520 1510 Intake, Oral 0 0 50 Intake, Other 0 Output, 1205 230 Drainage Output, 300 200 Gastric Drainage Output, Urine 163 37 760 950 Patient 277 lb 266 lb 257 lb 157 lb Weight Weight Bed scale Bed scale Reported by Patient Reported by Patient Measurement Method Physical Exam: General: int/sedated. HEENT: NC/AT. No icterus. Neck: negative JVD. CVP 4 CV: RRR, no m/r/g Pulm: CTAB, no rales Abd: soft, NT. bandage covering exlap site Lower Ext: neg edema Upper Ext: no AVFs or AVGserness Neuro: neg tremor, twitching Skin: no rash, jaundice : + ramon catheter Results Pertinent Lab Results: Laboratory Tests 07/10 07/10 07/10 1520 1245 1245 Chemistry Lactic Acid (0.7 - 2.1 mmol/L) 3.3 H Urines Urinalysis MOD H Urine Color (YEL,AMB,STR) ORANG H Urine Clarity (CLEAR) CLDY H Urine pH (5.0 - 8.0) 5.0 Ur Specific Showell (1.001 - 1.035) 1.025 Urine Protein (NEG,<30 MG/DL) 100 H Urine Ketones (NEG) TRACE H Urine Nitrite (NEG) NEG Urine Bilirubin (NEG) NEG@ICTO Urine Urobilinogen (0.1 - 1.0 EU/dl) 0.2 Ur Leukocyte Esterase (NEG) NEG Ur Microscopic SEDIMENT EXAMINED Urine RBC (0 - 5 /HPF) >75 H Urine WBC (0 - 2 /HPF) 1-3 H Ur Epithelial Cells (NONE,FEW) RARE Urine Bacteria (NEG/NONE) FEW H Granular Casts (NONE /LPF) RARE H Urine Mucus (FEW,NONE) FEW Urine Hemoglobin (NEG) LARGE H Urine Osmolality (300 - 1000 MOSM/KG) 375 Ur Random Creatinine (mg/dL) 141.8 Ur Random Sodium (30 - 90 mmol/L) 38 Ur Random Potassium (mmol/L) 46.3 Fraction Sodium Excret (<1% %) 0.7 Urine Glucose (N MG/DL) NEG 07/10 07/10 07/10 07/10 07/10 1158 1112 0845 0555 0500 Blood Gas pH (7.35 - 7.45 PH) 7.41 pCO2 (35 - 45 TORR) 27 L pO2 (80 - 100 TORR) 93 HCO3 (21 - 28 MEQ/L) 17 L ABG O2 Sat (Measured) (>96.0 %) 97.0 P-50 (Temp Corrected) N Carboxyhemoglobin (1.5 - 5.0 %) 0.6 L O2 Concentration % .40 Respiration Rate (BPM) 16 O2 Delivery Method VENT Vent Mode A/C Expiratory Pressure (CMH2O/P) 5 Tidal Volume (CC) 600 Chemistry Sodium (137 - 145 mmol/L) 143 142 Potassium (3.5 - 5.1 mmol/L) 4.4 4.9 Chloride (98 - 107 mmol/L) 113 H 110 H Carbon Dioxide (22 - 30 mmol/L) 16 L 17 L Anion Gap (5 - 16) 13 15 BUN (9 - 20 mg/dL) 50 H 48 H Creatinine (0.7 - 1.2 mg/dL) 3.7 H 3.7 H Estimated GFR (>60 ml/min) 16 L 16 L BUN/Creatinine Ratio (7 - 25 %) 13.0 Glucose (65 - 99 mg/dL) 241 H Lactic Acid (0.7 - 2.1 mmol/L) 4.0 H 4.6 H 4.1 H Calcium (8.4 - 10.2 mg/dL) 6.5 L Ionized Calcium Pending Phosphorus (2.5 - 4.5 mg/dL) 3.8 3.8 Magnesium (1.6 - 2.3 mg/dL) 1.7 1.8 Total Bilirubin (0.2 - 1.3 mg/dL) 0.5 AST (17 - 59 U/L) 25 ALT (21 - 72 U/L) 24 Troponin I (<0.11 ng/ml) 0.07 Albumin (3.5 - 5.0 g/dL) 1.8 L TSH (0.270 - 4.200 uIU/mL) 2.210 Cortisol AM Sample (4.46 - 22.7 ug/dL) 64.1 H Coagulation PT (9.4 - 12.5 SEC) 17.7 H INR (0.90 - 1.17) 1.69 H Miscellaneous Phlebotomy Draw Site PETALUMA 07/10 07/10 07/10 0500 0230 0230 Chemistry Sodium (137 - 145 mmol/L) 141 Potassium (3.5 - 5.1 mmol/L) 4.8 5.0 Chloride (98 - 107 mmol/L) 114 H Carbon Dioxide (22 - 30 mmol/L) 14 L Anion Gap (5 - 16) 13 BUN (9 - 20 mg/dL) 45 H Creatinine (0.7 - 1.2 mg/dL) 3.2 H Estimated GFR (>60 ml/min) 19 L Glucose (65 - 99 mg/dL) 268 H Lactic Acid (0.7 - 2.1 mmol/L) 4.4 H Calcium (8.4 - 10.2 mg/dL) 6.8 L Phosphorus (2.5 - 4.5 mg/dL) 3.7 Magnesium (1.6 - 2.3 mg/dL) 1.8 Total Bilirubin (0.2 - 1.3 mg/dL) 0.6 AST (17 - 59 U/L) 22 ALT (21 - 72 U/L) 27 Albumin (3.5 - 5.0 g/dL) 1.8 L Hematology CBC w Diff MAN DIFF ORDERED WBC (4.8 - 10.8 /CUMM) 15.1 H RBC (4.70 - 6.10 /CUMM) 5.37 Hgb (14.0 - 18.0 G/DL) 15.2 Hct (42 - 52 %) 47.0 MCV (80.0 - 94.0 FL) 87.4 MCH (27.0 - 31.0 PG) 28.4 RDW (11.5 - 14.5 %) 16.3 H Plt Count (130 - 400 /CUMM) 199 MPV (7.4 - 10.4 FL) 9.7 Gran % (42.2 - 75.2 %) 60.5 Lymphocytes % (20.5 - 51.1 %) 31.1 Monocytes % (1.7 - 9.3 %) 7.9 Eosinophils % (0 - 5 %) 0.1 Basophils % (0.0 - 2.0 %) 0.4 Absolute Granulocytes (1.4 - 6.5 /CUMM) 9.1 H Segmented Neutrophils (42.2 - 75.2 %) 26 L Band Neutrophils (0.0 - 5.0 %) 24 H Absolute Lymphocytes (1.2 - 3.4 /CUMM) 4.7 H Lymphocytes (20.5 - 51.1 %) 38 Monocytes (1.7 - 9.3 %) 12 H Absolute Monocytes (0.10 - 0.60 /CUMM) 1.2 H Absolute Eosinophils (0.0 - 0.7 /CUMM) 0 Absolute Basophils (0.0 - 0.2 /CUMM) 0.1 Platelet Estimate (ADEQUATE) VERIFIED BY SMEAR Poikilocytosis 1+ Anisocytosis 1+ Franc Cells 1+ PUBS MCHC (33.0 - 37.0 G/DL) 32.5 L 07/10 07/09 07/09 0020 2343 2250 Blood Gas pH (7.35 - 7.45 PH) 7.34 L pCO2 (35 - 45 TORR) 25 L pO2 (80 - 100 TORR) 124 H HCO3 (21 - 28 MEQ/L) 13 L ABG O2 Sat (Measured) (>96.0 %) 97.0 P-50 (Temp Corrected) N Carboxyhemoglobin (1.5 - 5.0 %) 0.8 L O2 Concentration % 50% Temperature (97.0 - 100.0 FARH) 99.6 Respiration Rate (BPM) 16 O2 Delivery Method ESPRIT Vent Mode AC Expiratory Pressure (CMH2O/P) 5 Tidal Volume (CC) 600 Chemistry Sodium (137 - 145 mmol/L) 141 Potassium (3.5 - 5.1 mmol/L) 5.5 H Chloride (98 - 107 mmol/L) 113 H Carbon Dioxide (22 - 30 mmol/L) 13 L Anion Gap (5 - 16) 15 BUN (9 - 20 mg/dL) 42 H Creatinine (0.7 - 1.2 mg/dL) 2.6 H Estimated GFR (>60 ml/min) 24 L Glucose (65 - 99 mg/dL) 240 H Lactic Acid (0.7 - 2.1 mmol/L) 4.1 H Calcium (8.4 - 10.2 mg/dL) 7.1 L Phosphorus (2.5 - 4.5 mg/dL) 4.6 H Magnesium (1.6 - 2.3 mg/dL) 1.9 Total Bilirubin (0.2 - 1.3 mg/dL) 0.8 AST (17 - 59 U/L) 24 ALT (21 - 72 U/L) 22 Troponin I (<0.11 ng/ml) 0.05 Albumin (3.5 - 5.0 g/dL) 2.2 L Hematology CBC w Diff MAN DIFF ORDERED WBC (4.8 - 10.8 /CUMM) 14.1 H RBC (4.70 - 6.10 /CUMM) 5.76 Hgb (14.0 - 18.0 G/DL) 16.3 Hct (42 - 52 %) 50.3 MCV (80.0 - 94.0 FL) 87.4 MCH (27.0 - 31.0 PG) 28.3 RDW (11.5 - 14.5 %) 15.9 H Plt Count (130 - 400 /CUMM) 202 MPV (7.4 - 10.4 FL) 9.2 Gran % (42.2 - 75.2 %) 58.6 Lymphocytes % (20.5 - 51.1 %) 34.9 Monocytes % (1.7 - 9.3 %) 6.4 Eosinophils % (0 - 5 %) 0 Basophils % (0.0 - 2.0 %) 0.1 Absolute Granulocytes (1.4 - 6.5 /CUMM) 8.3 H Segmented Neutrophils (42.2 - 75.2 %) 24 L Band Neutrophils (0.0 - 5.0 %) 17 H Absolute Lymphocytes (1.2 - 3.4 /CUMM) 4.9 H Lymphocytes (20.5 - 51.1 %) 53 H Monocytes (1.7 - 9.3 %) 5 Absolute Monocytes (0.10 - 0.60 /CUMM) 0.9 H Absolute Eosinophils (0.0 - 0.7 /CUMM) 0 Absolute Basophils (0.0 - 0.2 /CUMM) 0 Metamyelocytes (0.0 - 1.0 %) 1 Platelet Estimate (ADEQUATE) ADEQUATE Normocytic RBCs VERIFIED Normochromic RBCs VERIFIED PUBS MCHC (33.0 - 37.0 G/DL) 32.3 L Miscellaneous Phlebotomy Draw Site PETALUMA 07/09 07/09 07/09 2200 2003 2003 Chemistry Sodium (137 - 145 mmol/L) 141 Potassium (3.5 - 5.1 mmol/L) 5.0 Chloride (98 - 107 mmol/L) 112 H Carbon Dioxide (22 - 30 mmol/L) 14 L Anion Gap (5 - 16) 15 BUN (9 - 20 mg/dL) 36 H Creatinine (0.7 - 1.2 mg/dL) 2.2 H Estimated GFR (>60 ml/min) 29 L Glucose (65 - 99 mg/dL) 233 H Lactic Acid (0.7 - 2.1 mmol/L) Cancelled 4.3 H Calcium (8.4 - 10.2 mg/dL) 7.1 L Phosphorus (2.5 - 4.5 mg/dL) 5.0 H Magnesium (1.6 - 2.3 mg/dL) 1.8 Total Bilirubin (0.2 - 1.3 mg/dL) 0.7 AST (17 - 59 U/L) 24 ALT (21 - 72 U/L) 29 Troponin I (<0.11 ng/ml) 0.05 Albumin (3.5 - 5.0 g/dL) 2.2 L Hematology CBC w Diff MAN DIFF ORDERED WBC (4.8 - 10.8 /CUMM) 13.5 H RBC (4.70 - 6.10 /CUMM) 5.63 Hgb (14.0 - 18.0 G/DL) 15.9 Hct (42 - 52 %) 49.5 MCV (80.0 - 94.0 FL) 87.9 MCH (27.0 - 31.0 PG) 28.3 RDW (11.5 - 14.5 %) 16.1 H Plt Count (130 - 400 /CUMM) ND MPV (7.4 - 10.4 FL) ND Gran % (42.2 - 75.2 %) 50.1 Lymphocytes % (20.5 - 51.1 %) 40.2 Monocytes % (1.7 - 9.3 %) 9.7 H Eosinophils % (0 - 5 %) 0 Basophils % (0.0 - 2.0 %) 0 Absolute Granulocytes (1.4 - 6.5 /CUMM) 6.8 H Segmented Neutrophils (42.2 - 75.2 %) 27 L Band Neutrophils (0.0 - 5.0 %) 23 H Absolute Lymphocytes (1.2 - 3.4 /CUMM) 5.4 H Lymphocytes (20.5 - 51.1 %) 39 Monocytes (1.7 - 9.3 %) 7 Absolute Monocytes (0.10 - 0.60 /CUMM) 1.3 H Absolute Eosinophils (0.0 - 0.7 /CUMM) 0 Absolute Basophils (0.0 - 0.2 /CUMM) 0 Metamyelocytes (0.0 - 1.0 %) 4 H Platelet Estimate (ADEQUATE) ADEQUATE Anisocytosis 1+ PUBS MCHC (33.0 - 37.0 G/DL) 32.2 L Other Body Source Fld Total RBCs Counted (%) 100 07/09 07/09 07/09 1905 1320 1320 Blood Gas pH (7.35 - 7.45 PH) 7.22 *L pCO2 (35 - 45 TORR) 38 pO2 (80 - 100 TORR) 118 H HCO3 (21 - 28 MEQ/L) 15 L ABG O2 Sat (Measured) (>96.0 %) 96.0 P-50 (Temp Corrected) N Carboxyhemoglobin (1.5 - 5.0 %) 1.0 L O2 Concentration % 60 Temperature (97.0 - 100.0 FARH) 98.1 Respiration Rate (BPM) 16 O2 Delivery Method ESPRIT Vent Mode AC Expiratory Pressure (CMH2O/P) 5 Tidal Volume (CC) 600 Chemistry Sodium (137 - 145 mmol/L) 143 Potassium (3.5 - 5.1 mmol/L) 4.6 Chloride (98 - 107 mmol/L) 107 Carbon Dioxide (22 - 30 mmol/L) 12 L Anion Gap (5 - 16) 24 H BUN (9 - 20 mg/dL) 27 H Creatinine (0.7 - 1.2 mg/dL) 1.7 H Estimated GFR (>60 ml/min) 39 L Glucose (65 - 99 mg/dL) 312 H Lactic Acid (0.7 - 2.1 mmol/L) 11.0 H Calcium (8.4 - 10.2 mg/dL) 9.5 Phosphorus (2.5 - 4.5 mg/dL) 4.1 Magnesium (1.6 - 2.3 mg/dL) 1.9 Total Bilirubin (0.2 - 1.3 mg/dL) 1.2 AST (17 - 59 U/L) 26 ALT (21 - 72 U/L) 19 L Troponin I (<0.11 ng/ml) 0.03 Albumin (3.5 - 5.0 g/dL) 3.8 Coagulation PT (9.4 - 12.5 SEC) 14.5 H INR (0.90 - 1.17) 1.39 H Hematology CBC w Diff MAN DIFF ORDERED WBC (4.8 - 10.8 /CUMM) 14.2 H RBC (4.70 - 6.10 /CUMM) 6.39 H Hgb (14.0 - 18.0 G/DL) 17.9 Hct (42 - 52 %) 56.5 H MCV (80.0 - 94.0 FL) 88.5 MCH (27.0 - 31.0 PG) 28.0 RDW (11.5 - 14.5 %) 15.8 H Plt Count (130 - 400 /CUMM) 200 MPV (7.4 - 10.4 FL) 10.7 H Gran % (42.2 - 75.2 %) 61.7 Lymphocytes % (20.5 - 51.1 %) 32.4 Monocytes % (1.7 - 9.3 %) 5.6 Eosinophils % (0 - 5 %) 0 Basophils % (0.0 - 2.0 %) 0.3 Absolute Granulocytes (1.4 - 6.5 /CUMM) 8.7 H Segmented Neutrophils (42.2 - 75.2 %) 31 L Band Neutrophils (0.0 - 5.0 %) 24 H Absolute Lymphocytes (1.2 - 3.4 /CUMM) 4.6 H Lymphocytes (20.5 - 51.1 %) 39 Monocytes (1.7 - 9.3 %) 6 Absolute Monocytes (0.10 - 0.60 /CUMM) 0.8 H Absolute Eosinophils (0.0 - 0.7 /CUMM) 0 Absolute Basophils (0.0 - 0.2 /CUMM) 0 Platelet Estimate (ADEQUATE) VERIFIED BY SMEAR Polychromasia 1+ Anisocytosis 1+ PUBS MCHC (33.0 - 37.0 G/DL) 31.6 L Miscellaneous Phlebotomy Draw Site PETALUMA 07/09 07/09 07/09 1149 1100 0733 Chemistry Lactic Acid (0.7 - 2.1 mmol/L) Cancelled 6.8 H Troponin I Cancelled 07/09 07/09 07/09 0733 0515 0045 Chemistry Sodium (137 - 145 mmol/L) 144 Potassium (3.5 - 5.1 mmol/L) 4.4 Chloride (98 - 107 mmol/L) 106 Carbon Dioxide (22 - 30 mmol/L) 16 L Anion Gap (5 - 16) 22 H BUN (9 - 20 mg/dL) 22 H Creatinine (0.7 - 1.2 mg/dL) 1.0 Estimated GFR (>60 ml/min) > 60 BUN/Creatinine Ratio (7 - 25 %) 22.0 Lactic Acid (0.7 - 2.1 mmol/L) 3.4 H Troponin I (<0.11 ng/ml) < 0.01 Hematology CBC w Diff MAN DIFF ORDERED WBC (4.8 - 10.8 /CUMM) 14.0 H RBC (4.70 - 6.10 /CUMM) 5.55 Hgb (14.0 - 18.0 G/DL) 16.1 Hct (42 - 52 %) 48.9 MCV (80.0 - 94.0 FL) 88.0 MCH (27.0 - 31.0 PG) 29.0 RDW (11.5 - 14.5 %) 16.0 H Plt Count (130 - 400 /CUMM) 178 MPV (7.4 - 10.4 FL) 10.0 Gran % (42.2 - 75.2 %) 67.9 Lymphocytes % (20.5 - 51.1 %) 26.5 Monocytes % (1.7 - 9.3 %) 5.4 Eosinophils % (0 - 5 %) 0 Basophils % (0.0 - 2.0 %) 0.2 Absolute Granulocytes (1.4 - 6.5 /CUMM) 9.5 H Segmented Neutrophils (42.2 - 75.2 %) 47 Band Neutrophils (0.0 - 5.0 %) 24 H Absolute Lymphocytes (1.2 - 3.4 /CUMM) 3.7 H Lymphocytes (20.5 - 51.1 %) 24 Monocytes (1.7 - 9.3 %) 5 Absolute Monocytes (0.10 - 0.60 /CUMM) 0.8 H Absolute Eosinophils (0.0 - 0.7 /CUMM) 0 Absolute Basophils (0.0 - 0.2 /CUMM) 0 Platelet Estimate (ADEQUATE) VERIFIED BY SMEAR Polychromasia 1+ Anisocytosis 1+ PUBS MCHC (33.0 - 37.0 G/DL) 32.9 L 07/09 07/08 07/08 0045 1736 1524 Chemistry Sodium (137 - 145 mmol/L) 140 Potassium (3.5 - 5.1 mmol/L) 4.1 Chloride (98 - 107 mmol/L) 104 Carbon Dioxide (22 - 30 mmol/L) 19 L Anion Gap (5 - 16) 17 H BUN (9 - 20 mg/dL) 21 H Creatinine (0.7 - 1.2 mg/dL) 0.9 Estimated GFR (>60 ml/min) > 60 BUN/Creatinine Ratio (7 - 25 %) 23.3 Glucose (65 - 99 mg/dL) 199 H Lactic Acid (0.7 - 2.1 mmol/L) 3.8 H Cancelled 3.6 H Calcium (8.4 - 10.2 mg/dL) 9.6 Magnesium (1.6 - 2.3 mg/dL) 1.8 Total Bilirubin (0.2 - 1.3 mg/dL) 1.4 H Direct Bilirubin (< 0.4 mg/dL) 0.7 H AST (17 - 59 U/L) 26 ALT (21 - 72 U/L) 25 Alkaline Phosphatase (< 127 U/L) 89 Creatine Kinase (55 - 170 U/L) 103 Troponin I (<0.11 ng/ml) 0.02 [id number] Pept (<125 pg/mL) 1540 H Total Protein (6.3 - 8.2 g/dL) 6.8 Albumin (3.5 - 5.0 g/dL) 3.9 Globulin (1.9 - 4.2 gm/dL) 2.9 Albumin/Globulin Ratio (1.1 - 2.2 %) 1.3 Coagulation PT (9.4 - 12.5 SEC) 14.8 H INR (0.90 - 1.17) 1.41 H APTT (25 - 37 SEC) 29 Hematology CBC w Diff NO MAN DIFF REQ WBC (4.8 - 10.8 /CUMM) 15.2 H RBC (4.70 - 6.10 /CUMM) 5.18 Hgb (14.0 - 18.0 G/DL) 14.7 Hct (42 - 52 %) 44.9 MCV (80.0 - 94.0 FL) 86.7 MCH (27.0 - 31.0 PG) 28.4 RDW (11.5 - 14.5 %) 15.8 H Plt Count (130 - 400 /CUMM) 137 MPV (7.4 - 10.4 FL) 9.0 Gran % (42.2 - 75.2 %) 81.8 H Lymphocytes % (20.5 - 51.1 %) 10.1 L Monocytes % (1.7 - 9.3 %) 8.0 Eosinophils % (0 - 5 %) 0 Basophils % (0.0 - 2.0 %) 0.1 Absolute Granulocytes (1.4 - 6.5 /CUMM) 12.4 H Absolute Lymphocytes (1.2 - 3.4 /CUMM) 1.5 Absolute Monocytes (0.10 - 0.60 /CUMM) 1.2 H Absolute Eosinophils (0.0 - 0.7 /CUMM) 0 Absolute Basophils (0.0 - 0.2 /CUMM) 0 PUBS MCHC (33.0 - 37.0 G/DL) 32.8 L 07/08 07/08 1510 1449 Chemistry [id number] Pept Cancelled Urines Urine Color (YEL,AMB,STR) YEL Urine Clarity (CLEAR) HAZY H Urine pH (5.0 - 8.0) 6.0 Ur Specific [place] (1.001 - 1.035) >= 1.030 Urine Protein (NEG,<30 MG/DL) 100 H Urine Ketones (NEG) 15 H Urine Nitrite (NEG) POS H Urine Bilirubin (NEG) NEG Urine Urobilinogen (0.1 - 1.0 EU/dl) 0.2 Ur Leukocyte Esterase (NEG) MOD H Ur Microscopic SEDIMENT EXAMINED Urine RBC (0 - 5 /HPF) 50-75 H Urine WBC (0 - 2 /HPF) 25-50 H Ur Epithelial Cells (NONE,FEW) FEW Urine Bacteria (NEG/NONE) MANY H Urine Hemoglobin (NEG) LARGE H Urine Glucose (N MG/DL) NEG 07/08 1437 Chemistry Magnesium Cancelled Assessment/Plan Assessment/Recommendations Assessment: Acute kidney injury: I suspect multifactorial and due to profound volume depletion, possible ischemic ATN from shock, as well as possible nephrotoxic ATN from IV contrast; likely all 3 are contributing to the renal failure. No hydronephrosis on CAT scan. Presentation not consistent with glomerulonephritis. Despite cardiomyopathy, agreed the patient was profoundly volume depleted, and remains volume depleted and would continue administration of isotonic IV fluids, an effort to wean off pressors. Hopefully renal status will improve with optimization of his hemodynamics/blood pressure, however given the shock and IV contrast exposure, it would not be us apprised of renal function worsened despite optimal IV fluid support. No acute need for dialysis at this point in time. Recommendations: Continue isotonic IV fluid support with normal saline, closely monitoring CVP, hemodynamics, volume status No acute dialytic need Check hepatitis B panel in case patient requires dialysis Dose medications for an estimated GFR of less than 15 mL/m We will follow along with you. Thank you for the consultation
[2017-07-11] VITALS: BP 92/56
[2017-07-11 04:49] LABS: ABSOLUTE BASOPHIL COUNT 0.1 /CUMM (0.0-0.2); ABSOLUTE EOSINOPHIL COUNT 0 /CUMM (0.0-0.7); ABSOLUTE LYMPH COUNT 3.8 /CUMM (1.2-3.4); EOSINOPHIL % 0.1 % (0-5); MEAN CORPUSCULAR HGB 28.3 PG (27.0-31.0); RED BLOOD CELL CT 4.47 /CUMM (4.70-6.10)
[2017-07-11 05:03] LABS: BASOPHIL % 0.4 % (0.0-2.0); GRANULOCYTE % 67.5 % (42.2-75.2); MEAN CORPUSCULAR HGB CONC 32.4 G/DL (33.0-37.0); MEAN CORPUSCULAR VOLUME 87.3 FL (80.0-94.0); MEAN PLATELET VOLUME 8.9 FL (7.4-10.4); PLATELET COUNT 184 /CUMM (130-400); RBC DISTRIBUTION WIDTH 16.6 % (11.5-14.5); WHITE BLOOD CELL COUNT 14.8 /CUMM (4.8-10.8)
--- NOTE | 2017-07-11 06:00 | PN- General Surgery ---
Subjective Subjective: Sedated, vented Moves to stimuli, no other communication Objective Vital Signs and I&Os Vital Signs Date Time Temp Pulse Resp B/P B/P Pulse O2 O2 Flow FiO2 Mean Ox Delivery Rate 07/11 0400 95 Ventilator 45% 07/11 0303 45 07/11 0056 45 07/11 0000 99.8 89 25 92/56 96 Ventilator 45% 07/11 0000 96 Ventilator 45% 07/10 2227 45 07/10 2210 96 27 99/50 07/10 2000 96 Ventilator 45% 07/10 1939 98.8 07/10 1915 45 07/10 1807 102.8 07/10 1615 50 07/10 1600 94 Ventilator 45% 07/10 1600 99.2 102 25 100/58 94 Ventilator 45% 07/10 1500 50 07/10 1434 40 07/10 1200 96 Ventilator 40% 07/10 1200 99.1 102 28 92/60 96 Ventilator 40% 07/10 1125 40 07/10 1017 103/68 07/10 0912 40 07/10 0800 97 Ventilator 40% 07/10 0800 99.0 114 33 70/0 97 Ventilator 40% 07/10 0605 40 Intake & Output 07/11 0800 07/11 0000 07/10 1600 07/10 0800 07/10 0000 07/09 1600 Intake Total 2180 3698.3 3767 3590 320 Output Total 1053 765 903 467 110 Balance 1127 2933.3 2864 3123 210 Intake, IV 2180 3698.3 3767 3590 320 Intake, Oral 0 0 Intake, Other 0 Output, 790 565 640 230 Drainage Output, 50 100 200 200 Gastric Drainage Output, Urine 213 100 63 37 110 Patient 277 lb 266 lb Weight Weight Bed scale Bed scale Measurement Method Physical Exam: Tmax 102.8, current 99.8 Levo gtt -5 mcg fentanyl IVF - D5NS at 200cc/hr Urine output - 30-75cc/hr NGT 50-100cc/shift WILLEM - 100-170cc/hour Vent AC25/600/45/+5 General: vented, sedated Chest: clear anteriorly bilaterally, RRR Abd: no bowel sounds appreciated, soft Ext: 2+ edema BLE, 1+ edema BUE Wound: dressed, dry WILLEM: bilious, thin liquid Current Medications: Current Medications Sig/Buck Start time Last Medication Dose Route Stop Time Status Admin Acetaminophen 1,000 MG Q6H PRN 07/09 1900 AC 07/10 N/A 1 UNIT IV 1807 Budesonide/ 2 PUF BID 07/09 2200 Formoterol Fumarate INH Calcium Gluconate 1 GM ONCE ONE 07/10 191 DC 07/10 Sodium Chloride 100 ML IV 07/10 2014 2018 Dextrose/Sodium 1,000 ML Q5H 07/10 190 07/11 Chloride IV 0439 Dextrose/Sodium 1,000 ML Q6H 07/10 1015 DC 07/10 Chloride IV 1622 Fentanyl Citrate 1,000 MCG Q13H 07/10 2300 AC 07/11 Dextrose/Water 250 ML IV 0156 Fentanyl Citrate 1,000 MCG Q24H 07/09 1815 DC 07/10 Dextrose/Water 250 ML IV 07/10 2259 1017 Heparin Sodium 5,000 UNIT Q8 07/10 0138 07/10 (Porcine) SC 2143 Insulin Human Regular 0 Q4 07/09 2200 07/11 SC 0221 Magnesium Sulfate 1 GM Q2H 07/10 1400 DC 07/10 Dextrose/Water 100 ML IV 07/10 1759 1607 Meropenem 1 GM Q24 07/11 1000 DC IV Meropenem 1 GM Q24H 07/11 0500 AC 07/11 IV 0436 Meropenem 1 GM Q8H 07/10 0500 DC 07/10 IV 0541 Metronidazole 500 MG Q8H 07/10 0600 DC 07/10 N/A 1 UNIT IV 0541 Norepinephrine 4 MG Q8H 07/10 1800 AC 07/10 Sodium Chloride 250 ML IV 2210 Norepinephrine 4 MG Q12H 07/10 1200 DC 07/10 Sodium Chloride 250 ML IV 07/10 1759 1017 Norepinephrine 4 MG Q24H 07/09 2345 DC 07/10 Sodium Chloride 250 ML IV 0216 Nystatin 1 GENE TID 07/09 2200 AC 07/10 TOP 2144 Pantoprazole Sodium 40 MG BID 07/10 1016 AC 07/10 IV 2145 Pantoprazole Sodium 80 MG Q10H 07/09 1930 DC 07/10 Sodium Chloride 100 ML IV 0423 Sodium Bicarbonate 150 MEQ ONCE ONE 07/10 0845 CAN Dextrose/Water 1,000 ML IV 07/10 1344 Sodium Bicarbonate 150 MEQ ONCE ONE 07/10 0115 DC 07/10 Dextrose/Water 1,000 ML IV 07/10 0614 0255 Sodium Chloride 1,000 ML BOLUS ONE 07/10 1130 DC 07/10 IV 07/10 1229 1132 Sodium Chloride 500 ML BOLUS ONE 07/10 1115 CAN IV 07/10 1214 Sodium Chloride 1,000 ML BOLUS ONE 07/10 0845 DC 07/10 IV 07/10 0996 0839 Results Last 48 Hours of Labs: Laboratory Tests 07/11 07/10 0400 2120 Chemistry Sodium (137 - 145 mmol/L) 144 Potassium (3.5 - 5.1 mmol/L) 4.2 Chloride (98 - 107 mmol/L) 115 H Carbon Dioxide (22 - 30 mmol/L) 16 L Anion Gap (5 - 16) 13 BUN (9 - 20 mg/dL) 60 H Creatinine (0.7 - 1.2 mg/dL) 4.2 H Estimated GFR (>60 ml/min) 14 L Glucose (65 - 99 mg/dL) 216 H Lactic Acid (0.7 - 2.1 mmol/L) 2.3 H 2.9 H Calcium (8.4 - 10.2 mg/dL) 6.7 L Phosphorus (2.5 - 4.5 mg/dL) 4.2 Magnesium (1.6 - 2.3 mg/dL) 2.2 Total Bilirubin (0.2 - 1.3 mg/dL) 0.5 AST (17 - 59 U/L) 20 ALT (21 - 72 U/L) 22 Albumin (3.5 - 5.0 g/dL) 1.7 L Coagulation PT (9.4 - 12.5 SEC) 16.0 H INR (0.90 - 1.17) 1.53 H Hematology CBC w Diff MAN DIFF ORDERED WBC (4.8 - 10.8 /CUMM) 14.8 H RBC (4.70 - 6.10 /CUMM) 4.47 L Hgb (14.0 - 18.0 G/DL) 12.7 L Hct (42 - 52 %) 39.0 L MCV (80.0 - 94.0 FL) 87.3 MCH (27.0 - 31.0 PG) 28.3 RDW (11.5 - 14.5 %) 16.6 H Plt Count (130 - 400 /CUMM) 184 MPV (7.4 - 10.4 FL) 8.9 Gran % (42.2 - 75.2 %) 67.5 Lymphocytes % (20.5 - 51.1 %) 25.5 Monocytes % (1.7 - 9.3 %) 6.5 Eosinophils % (0 - 5 %) 0.1 Basophils % (0.0 - 2.0 %) 0.4 Absolute Granulocytes (1.4 - 6.5 /CUMM) 10.0 H Segmented Neutrophils (42.2 - 75.2 %) 68 Band Neutrophils (0.0 - 5.0 %) 5 Absolute Lymphocytes (1.2 - 3.4 /CUMM) 3.8 H Lymphocytes (20.5 - 51.1 %) 26 Monocytes (1.7 - 9.3 %) 1 L Absolute Monocytes (0.10 - 0.60 /CUMM) 1.0 H Absolute Eosinophils (0.0 - 0.7 /CUMM) 0 Absolute Basophils (0.0 - 0.2 /CUMM) 0.1 Platelet Estimate (ADEQUATE) ADEQUATE Normocytic RBCs VERIFIED Normochromic RBCs VERIFIED PUBS MCHC (33.0 - 37.0 G/DL) 32.4 L 07/10 07/10 07/10 1905 1820 1520 Blood Gas pH (7.35 - 7.45 PH) 7.39 pCO2 (35 - 45 TORR) 29 L pO2 (80 - 100 TORR) 86 HCO3 (21 - 28 MEQ/L) 17 L ABG O2 Sat (Measured) (>96.0 %) 96.0 P-50 (Temp Corrected) N Carboxyhemoglobin (1.5 - 5.0 %) 0.6 L O2 Concentration % 45% Temperature (97.0 - 100.0 FARH) 99.0 Respiration Rate (BPM) 25 O2 Delivery Method ESPRIT Vent Mode AC Expiratory Pressure (CMH2O/P) 5 Tidal Volume (CC) 600 Chemistry Sodium (137 - 145 mmol/L) 142 Potassium (3.5 - 5.1 mmol/L) 4.4 Chloride (98 - 107 mmol/L) 114 H Carbon Dioxide (22 - 30 mmol/L) 16 L Anion Gap (5 - 16) 13 BUN (9 - 20 mg/dL) 54 H Creatinine (0.7 - 1.2 mg/dL) 4.0 H Estimated GFR (>60 ml/min) 15 L Glucose (65 - 99 mg/dL) 258 H Lactic Acid (0.7 - 2.1 mmol/L) 3.3 H 3.3 H Calcium (8.4 - 10.2 mg/dL) 6.3 L Phosphorus (2.5 - 4.5 mg/dL) 4.0 Magnesium (1.6 - 2.3 mg/dL) 2.2 Total Bilirubin (0.2 - 1.3 mg/dL) 0.5 AST (17 - 59 U/L) 23 ALT (21 - 72 U/L) 24 Albumin (3.5 - 5.0 g/dL) 1.7 L Miscellaneous Phlebotomy Draw Site LEFT BRACHIAL Serology Hepatitis A IgM Ab (NONREACTIVE) Pending Hep Bs Antigen (NONREACTIVE) Pending Hep B Core IgM Ab Conf (NONREACTIVE) Pending Hepatitis C Antibody (NONREACTIVE) Pending 07/10 07/10 07/10 1245 1245 1158 Chemistry Sodium (137 - 145 mmol/L) 143 Potassium (3.5 - 5.1 mmol/L) 4.4 Chloride (98 - 107 mmol/L) 113 H Carbon Dioxide (22 - 30 mmol/L) 16 L Anion Gap (5 - 16) 13 BUN (9 - 20 mg/dL) 50 H Creatinine (0.7 - 1.2 mg/dL) 3.7 H Estimated GFR (>60 ml/min) 16 L Glucose (65 - 99 mg/dL) 241 H Lactic Acid (0.7 - 2.1 mmol/L) 4.0 H Calcium (8.4 - 10.2 mg/dL) 6.5 L Phosphorus (2.5 - 4.5 mg/dL) 3.8 Magnesium (1.6 - 2.3 mg/dL) 1.7 Total Bilirubin (0.2 - 1.3 mg/dL) 0.5 AST (17 - 59 U/L) 25 ALT (21 - 72 U/L) 24 Albumin (3.5 - 5.0 g/dL) 1.8 L Coagulation PT (9.4 - 12.5 SEC) 17.7 H INR (0.90 - 1.17) 1.69 H Urines Urinalysis MOD H Urine Color (YEL,AMB,STR) ORANG H Urine Clarity (CLEAR) CLDY H Urine pH (5.0 - 8.0) 5.0 Ur Specific [place] (1.001 - 1.035) 1.025 Urine Protein (NEG,<30 MG/DL) 100 H Urine Ketones (NEG) TRACE H Urine Nitrite (NEG) NEG Urine Bilirubin (NEG) NEG@ICTO Urine Urobilinogen (0.1 - 1.0 EU/dl) 0.2 Ur Leukocyte Esterase (NEG) NEG Ur Microscopic SEDIMENT EXAMINED Urine RBC (0 - 5 /HPF) >75 H Urine WBC (0 - 2 /HPF) 1-3 H Ur Epithelial Cells (NONE,FEW) RARE Urine Bacteria (NEG/NONE) FEW H Granular Casts (NONE /LPF) RARE H Urine Mucus (FEW,NONE) FEW Urine Hemoglobin (NEG) LARGE H Urine Osmolality (300 - 1000 MOSM/KG) 375 Ur Random Creatinine (mg/dL) 141.8 Ur Random Sodium (30 - 90 mmol/L) 38 Ur Random Potassium (mmol/L) 46.3 Fraction Sodium Excret (<1% %) 0.7 Urine Glucose (N MG/DL) NEG 07/10 07/10 07/10 07/10 1112 0845 0555 0500 Blood Gas pH (7.35 - 7.45 PH) 7.41 pCO2 (35 - 45 TORR) 27 L pO2 (80 - 100 TORR) 93 HCO3 (21 - 28 MEQ/L) 17 L ABG O2 Sat (Measured) (>96.0 %) 97.0 P-50 (Temp Corrected) N Carboxyhemoglobin (1.5 - 5.0 %) 0.6 L O2 Concentration % .40 Respiration Rate (BPM) 16 O2 Delivery Method VENT Vent Mode A/C Expiratory Pressure (CMH2O/P) 5 Tidal Volume (CC) 600 Chemistry Sodium (137 - 145 mmol/L) 142 Potassium (3.5 - 5.1 mmol/L) 4.9 Chloride (98 - 107 mmol/L) 110 H Carbon Dioxide (22 - 30 mmol/L) 17 L Anion Gap (5 - 16) 15 BUN (9 - 20 mg/dL) 48 H Creatinine (0.7 - 1.2 mg/dL) 3.7 H Estimated GFR (>60 ml/min) 16 L BUN/Creatinine Ratio (7 - 25 %) 13.0 Lactic Acid (0.7 - 2.1 mmol/L) 4.6 H 4.1 H Ionized Calcium Pending Phosphorus (2.5 - 4.5 mg/dL) 3.8 Magnesium (1.6 - 2.3 mg/dL) 1.8 Troponin I (<0.11 ng/ml) 0.07 TSH (0.270 - 4.200 uIU/mL) 2.210 Cortisol AM Sample (4.46 - 22.7 ug/dL) 64.1 H Miscellaneous Phlebotomy Draw Site [place] 07/10 07/10 07/10 0500 0230 0230 Chemistry Sodium (137 - 145 mmol/L) 141 Potassium (3.5 - 5.1 mmol/L) 4.8 5.0 Chloride (98 - 107 mmol/L) 114 H Carbon Dioxide (22 - 30 mmol/L) 14 L Anion Gap (5 - 16) 13 BUN (9 - 20 mg/dL) 45 H Creatinine (0.7 - 1.2 mg/dL) 3.2 H Estimated GFR (>60 ml/min) 19 L Glucose (65 - 99 mg/dL) 268 H Lactic Acid (0.7 - 2.1 mmol/L) 4.4 H Calcium (8.4 - 10.2 mg/dL) 6.8 L Phosphorus (2.5 - 4.5 mg/dL) 3.7 Magnesium (1.6 - 2.3 mg/dL) 1.8 Total Bilirubin (0.2 - 1.3 mg/dL) 0.6 AST (17 - 59 U/L) 22 ALT (21 - 72 U/L) 27 Albumin (3.5 - 5.0 g/dL) 1.8 L Hematology CBC w Diff MAN DIFF ORDERED WBC (4.8 - 10.8 /CUMM) 15.1 H RBC (4.70 - 6.10 /CUMM) 5.37 Hgb (14.0 - 18.0 G/DL) 15.2 Hct (42 - 52 %) 47.0 MCV (80.0 - 94.0 FL) 87.4 MCH (27.0 - 31.0 PG) 28.4 RDW (11.5 - 14.5 %) 16.3 H Plt Count (130 - 400 /CUMM) 199 MPV (7.4 - 10.4 FL) 9.7 Gran % (42.2 - 75.2 %) 60.5 Lymphocytes % (20.5 - 51.1 %) 31.1 Monocytes % (1.7 - 9.3 %) 7.9 Eosinophils % (0 - 5 %) 0.1 Basophils % (0.0 - 2.0 %) 0.4 Absolute Granulocytes (1.4 - 6.5 /CUMM) 9.1 H Segmented Neutrophils (42.2 - 75.2 %) 26 L Band Neutrophils (0.0 - 5.0 %) 24 H Absolute Lymphocytes (1.2 - 3.4 /CUMM) 4.7 H Lymphocytes (20.5 - 51.1 %) 38 Monocytes (1.7 - 9.3 %) 12 H Absolute Monocytes (0.10 - 0.60 /CUMM) 1.2 H Absolute Eosinophils (0.0 - 0.7 /CUMM) 0 Absolute Basophils (0.0 - 0.2 /CUMM) 0.1 Platelet Estimate (ADEQUATE) VERIFIED BY SMEAR Poikilocytosis 1+ Anisocytosis 1+ [place] Cells 1+ PUBS MCHC (33.0 - 37.0 G/DL) 32.5 L 07/10 07/09 07/09 0020 2343 2250 Blood Gas pH (7.35 - 7.45 PH) 7.34 L pCO2 (35 - 45 TORR) 25 L pO2 (80 - 100 TORR) 124 H HCO3 (21 - 28 MEQ/L) 13 L ABG O2 Sat (Measured) (>96.0 %) 97.0 P-50 (Temp Corrected) N Carboxyhemoglobin (1.5 - 5.0 %) 0.8 L O2 Concentration % 50% Temperature (97.0 - 100.0 FARH) 99.6 Respiration Rate (BPM) 16 O2 Delivery Method ESPRIT Vent Mode AC Expiratory Pressure (CMH2O/P) 5 Tidal Volume (CC) 600 Chemistry Sodium (137 - 145 mmol/L) 141 Potassium (3.5 - 5.1 mmol/L) 5.5 H Chloride (98 - 107 mmol/L) 113 H Carbon Dioxide (22 - 30 mmol/L) 13 L Anion Gap (5 - 16) 15 BUN (9 - 20 mg/dL) 42 H Creatinine (0.7 - 1.2 mg/dL) 2.6 H Estimated GFR (>60 ml/min) 24 L Glucose (65 - 99 mg/dL) 240 H Lactic Acid (0.7 - 2.1 mmol/L) 4.1 H Calcium (8.4 - 10.2 mg/dL) 7.1 L Phosphorus (2.5 - 4.5 mg/dL) 4.6 H Magnesium (1.6 - 2.3 mg/dL) 1.9 Total Bilirubin (0.2 - 1.3 mg/dL) 0.8 AST (17 - 59 U/L) 24 ALT (21 - 72 U/L) 22 Troponin I (<0.11 ng/ml) 0.05 Albumin (3.5 - 5.0 g/dL) 2.2 L Hematology CBC w Diff MAN DIFF ORDERED WBC (4.8 - 10.8 /CUMM) 14.1 H RBC (4.70 - 6.10 /CUMM) 5.76 Hgb (14.0 - 18.0 G/DL) 16.3 Hct (42 - 52 %) 50.3 MCV (80.0 - 94.0 FL) 87.4 MCH (27.0 - 31.0 PG) 28.3 RDW (11.5 - 14.5 %) 15.9 H Plt Count (130 - 400 /CUMM) 202 MPV (7.4 - 10.4 FL) 9.2 Gran % (42.2 - 75.2 %) 58.6 Lymphocytes % (20.5 - 51.1 %) 34.9 Monocytes % (1.7 - 9.3 %) 6.4 Eosinophils % (0 - 5 %) 0 Basophils % (0.0 - 2.0 %) 0.1 Absolute Granulocytes (1.4 - 6.5 /CUMM) 8.3 H Segmented Neutrophils (42.2 - 75.2 %) 24 L Band Neutrophils (0.0 - 5.0 %) 17 H Absolute Lymphocytes (1.2 - 3.4 /CUMM) 4.9 H Lymphocytes (20.5 - 51.1 %) 53 H Monocytes (1.7 - 9.3 %) 5 Absolute Monocytes (0.10 - 0.60 /CUMM) 0.9 H Absolute Eosinophils (0.0 - 0.7 /CUMM) 0 Absolute Basophils (0.0 - 0.2 /CUMM) 0 Metamyelocytes (0.0 - 1.0 %) 1 Platelet Estimate (ADEQUATE) ADEQUATE Normocytic RBCs VERIFIED Normochromic RBCs VERIFIED PUBS MCHC (33.0 - 37.0 G/DL) 32.3 L Miscellaneous Phlebotomy Draw Site [place] 07/09 Chemistry Sodium (137 - 145 mmol/L) 141 Potassium (3.5 - 5.1 mmol/L) 5.0 Chloride (98 - 107 mmol/L) 112 H Carbon Dioxide (22 - 30 mmol/L) 14 L Anion Gap (5 - 16) 15 BUN (9 - 20 mg/dL) 36 H Creatinine (0.7 - 1.2 mg/dL) 2.2 H Estimated GFR (>60 ml/min) 29 L Glucose (65 - 99 mg/dL) 233 H Lactic Acid (0.7 - 2.1 mmol/L) Cancelled 4.3 H Calcium (8.4 - 10.2 mg/dL) 7.1 L Phosphorus (2.5 - 4.5 mg/dL) 5.0 H Magnesium (1.6 - 2.3 mg/dL) 1.8 Total Bilirubin (0.2 - 1.3 mg/dL) 0.7 AST (17 - 59 U/L) 24 ALT (21 - 72 U/L) 29 Troponin I (<0.11 ng/ml) 0.05 Albumin (3.5 - 5.0 g/dL) 2.2 L Hematology CBC w Diff MAN DIFF ORDERED WBC (4.8 - 10.8 /CUMM) 13.5 H RBC (4.70 - 6.10 /CUMM) 5.63 Hgb (14.0 - 18.0 G/DL) 15.9 Hct (42 - 52 %) 49.5 MCV (80.0 - 94.0 FL) 87.9 MCH (27.0 - 31.0 PG) 28.3 RDW (11.5 - 14.5 %) 16.1 H Plt Count (130 - 400 /CUMM) ND MPV (7.4 - 10.4 FL) ND Gran % (42.2 - 75.2 %) 50.1 Lymphocytes % (20.5 - 51.1 %) 40.2 Monocytes % (1.7 - 9.3 %) 9.7 H Eosinophils % (0 - 5 %) 0 Basophils % (0.0 - 2.0 %) 0 Absolute Granulocytes (1.4 - 6.5 /CUMM) 6.8 H Segmented Neutrophils (42.2 - 75.2 %) 27 L Band Neutrophils (0.0 - 5.0 %) 23 H Absolute Lymphocytes (1.2 - 3.4 /CUMM) 5.4 H Lymphocytes (20.5 - 51.1 %) 39 Monocytes (1.7 - 9.3 %) 7 Absolute Monocytes (0.10 - 0.60 /CUMM) 1.3 H Absolute Eosinophils (0.0 - 0.7 /CUMM) 0 Absolute Basophils (0.0 - 0.2 /CUMM) 0 Metamyelocytes (0.0 - 1.0 %) 4 H Platelet Estimate (ADEQUATE) ADEQUATE Anisocytosis 1+ PUBS MCHC (33.0 - 37.0 G/DL) 32.2 L Other Body Source Fld Total RBCs Counted (%) 100 07/09 07/09 07/09 1905 1320 1320 Blood Gas pH (7.35 - 7.45 PH) 7.22 *L pCO2 (35 - 45 TORR) 38 pO2 (80 - 100 TORR) 118 H HCO3 (21 - 28 MEQ/L) 15 L ABG O2 Sat (Measured) (>96.0 %) 96.0 P-50 (Temp Corrected) N Carboxyhemoglobin (1.5 - 5.0 %) 1.0 L O2 Concentration % 60 Temperature (97.0 - 100.0 FARH) 98.1 Respiration Rate (BPM) 16 O2 Delivery Method ESPRIT Vent Mode AC Expiratory Pressure (CMH2O/P) 5 Tidal Volume (CC) 600 Chemistry Sodium (137 - 145 mmol/L) 143 Potassium (3.5 - 5.1 mmol/L) 4.6 Chloride (98 - 107 mmol/L) 107 Carbon Dioxide (22 - 30 mmol/L) 12 L Anion Gap (5 - 16) 24 H BUN (9 - 20 mg/dL) 27 H Creatinine (0.7 - 1.2 mg/dL) 1.7 H Estimated GFR (>60 ml/min) 39 L Glucose (65 - 99 mg/dL) 312 H Lactic Acid (0.7 - 2.1 mmol/L) 11.0 H Calcium (8.4 - 10.2 mg/dL) 9.5 Phosphorus (2.5 - 4.5 mg/dL) 4.1 Magnesium (1.6 - 2.3 mg/dL) 1.9 Total Bilirubin (0.2 - 1.3 mg/dL) 1.2 AST (17 - 59 U/L) 26 ALT (21 - 72 U/L) 19 L Troponin I (<0.11 ng/ml) 0.03 Albumin (3.5 - 5.0 g/dL) 3.8 Coagulation PT (9.4 - 12.5 SEC) 14.5 H INR (0.90 - 1.17) 1.39 H Hematology CBC w Diff MAN DIFF ORDERED WBC (4.8 - 10.8 /CUMM) 14.2 H RBC (4.70 - 6.10 /CUMM) 6.39 H Hgb (14.0 - 18.0 G/DL) 17.9 Hct (42 - 52 %) 56.5 H MCV (80.0 - 94.0 FL) 88.5 MCH (27.0 - 31.0 PG) 28.0 RDW (11.5 - 14.5 %) 15.8 H Plt Count (130 - 400 /CUMM) 200 MPV (7.4 - 10.4 FL) 10.7 H Gran % (42.2 - 75.2 %) 61.7 Lymphocytes % (20.5 - 51.1 %) 32.4 Monocytes % (1.7 - 9.3 %) 5.6 Eosinophils % (0 - 5 %) 0 Basophils % (0.0 - 2.0 %) 0.3 Absolute Granulocytes (1.4 - 6.5 /CUMM) 8.7 H Segmented Neutrophils (42.2 - 75.2 %) 31 L Band Neutrophils (0.0 - 5.0 %) 24 H Absolute Lymphocytes (1.2 - 3.4 /CUMM) 4.6 H Lymphocytes (20.5 - 51.1 %) 39 Monocytes (1.7 - 9.3 %) 6 Absolute Monocytes (0.10 - 0.60 /CUMM) 0.8 H Absolute Eosinophils (0.0 - 0.7 /CUMM) 0 Absolute Basophils (0.0 - 0.2 /CUMM) 0 Platelet Estimate (ADEQUATE) VERIFIED BY SMEAR Polychromasia 1+ Anisocytosis 1+ PUBS MCHC (33.0 - 37.0 G/DL) 31.6 L Miscellaneous Phlebotomy Draw Site [place] 07/09 07/09 07/09 1149 1100 0733 Chemistry Lactic Acid (0.7 - 2.1 mmol/L) Cancelled 6.8 H Troponin I Cancelled 07/09 0733 Chemistry Sodium (137 - 145 mmol/L) 144 Potassium (3.5 - 5.1 mmol/L) 4.4 Chloride (98 - 107 mmol/L) 106 Carbon Dioxide (22 - 30 mmol/L) 16 L Anion Gap (5 - 16) 22 H BUN (9 - 20 mg/dL) 22 H Creatinine (0.7 - 1.2 mg/dL) 1.0 Estimated GFR (>60 ml/min) > 60 BUN/Creatinine Ratio (7 - 25 %) 22.0 Hematology CBC w Diff MAN DIFF ORDERED WBC (4.8 - 10.8 /CUMM) 14.0 H RBC (4.70 - 6.10 /CUMM) 5.55 Hgb (14.0 - 18.0 G/DL) 16.1 Hct (42 - 52 %) 48.9 MCV (80.0 - 94.0 FL) 88.0 MCH (27.0 - 31.0 PG) 29.0 RDW (11.5 - 14.5 %) 16.0 H Plt Count (130 - 400 /CUMM) 178 MPV (7.4 - 10.4 FL) 10.0 Gran % (42.2 - 75.2 %) 67.9 Lymphocytes % (20.5 - 51.1 %) 26.5 Monocytes % (1.7 - 9.3 %) 5.4 Eosinophils % (0 - 5 %) 0 Basophils % (0.0 - 2.0 %) 0.2 Absolute Granulocytes (1.4 - 6.5 /CUMM) 9.5 H Segmented Neutrophils (42.2 - 75.2 %) 47 Band Neutrophils (0.0 - 5.0 %) 24 H Absolute Lymphocytes (1.2 - 3.4 /CUMM) 3.7 H Lymphocytes (20.5 - 51.1 %) 24 Monocytes (1.7 - 9.3 %) 5 Absolute Monocytes (0.10 - 0.60 /CUMM) 0.8 H Absolute Eosinophils (0.0 - 0.7 /CUMM) 0 Absolute Basophils (0.0 - 0.2 /CUMM) 0 Platelet Estimate (ADEQUATE) VERIFIED BY SMEAR Polychromasia 1+ Anisocytosis 1+ PUBS MCHC (33.0 - 37.0 G/DL) 32.9 L Assessment/Plan Assessment/Plan 76yo male s/p perf duodenal ulcer, urgent ex lap/tono patch pod 2 vented/sedated continue NGT Continue to monitor WILLEM output - Dr Trimble aware of large amount of bilious drainage - in the OR pt had an enormous amount of this in his abdomen Continue meropenem for peritonitis - ID following Urine output has picked up. IV hydration to continue. Creatinine now 4.2 - Renal following IV protonix hep sc for dvt ppx Medical management per primary team
[2017-07-11 08:00] VITALS: BP 100/62
--- NOTE | 2017-07-11 08:02 | PN- Resident CRCU ---
Subjective HPI/CRCU Issues: - Septic shock 2/2 perforated duodenal ulcer s/p Fabrizio patch POD Day #2 currently on Levophed - Metabolic acidosis - DM - CAD s/p CABG - HFrEF with EF of 25% s/p AICD - PAF on Tikosyn not on AC - USMAN 2/2 ATN from septic shock - Acute respiratory failure curently intubated 24 Hour Events: Intubated and sedated. Calm, cooperative, easily arousable. Afebrile overnight. NSR overnight, 77-89. Continues to be on Levo 5 mcg Sedation with Fentanyl 75 mcg IVF D5NS 200 cc / hr. Vent (25/600/45/5). Sats 95 %. I/O = 1500 (IVF) /800 cc (8 hr) ABG 7.38/30//17 . 97% Runs of monomorphic VT yesterday, AICD in place. Tikosyn on hold. Objective Vital Signs & I&O Last 8 Hrs of Vitals and I&O: I/O = 1500 (IVF) /800 cc (8 hr) Exam General Appearance: well developed/nourished, sedated, intubated, arousable , calm and cooperative Head: atraumatic, normal appearance Neck: normal inspection, supple Respiratory: normal breath sounds (anteriorly) Cardiovascular: regular rate/rhythm, edema Gastrointestinal: normal bowel sounds, soft Extremities: normal inspection, swelling Skin: intact, normal color Skin Temp/Moisture Exam: Warm/Dry Sepsis Skin Exam (color): Normal for Ethnicity Central Line Site: RIJ Date In: 07/09/17 Need for Catheter: pressors NG Tube Date In: 07/09/17 IV Drips IV Drips: D5NS Current Medications: Current Medications Sig/Buck Start time Last Medication Dose Route Stop Time Status Admin Acetaminophen 1,000 MG Q6H PRN 07/09 1900 AC 07/10 N/A 1 UNIT IV 180 Budesonide/ 2 PUF BID 07/09 2200 AC Formoterol Fumarate INH Calcium Gluconate 1 GM ONCE ONE 07/10 1915 DC 07/10 Sodium Chloride 100 ML IV 07/10 Dextrose/Sodium 1,000 ML Q5H 07/10 190 AC 07/11 Chloride IV 0834 Dextrose/Sodium 1,000 ML Q6H 07/10 1015 DC 07/10 Chloride IV 1622 Fentanyl Citrate 1,000 MCG Q13H 07/10 2300 07/11 Dextrose/Water 250 ML IV 0156 Fentanyl Citrate 1,000 MCG Q24H 07/09 1815 DC 07/10 Dextrose/Water 250 ML IV 07/10 2259 1017 Heparin Sodium 5,000 UNIT Q8 07/10 0138 07/11 (Porcine) SC 0557 Insulin Human Regular 0 Q4 07/09 2200 07/11 SC 0640 Magnesium Sulfate 1 GM Q2H 07/10 1400 DC 07/10 Dextrose/Water 100 ML IV 07/10 1759 1607 Meropenem 1 GM Q24 07/11 1000 DC IV Meropenem 1 GM Q24H 07/11 0500 07/11 IV 0436 Norepinephrine 4 MG Q8H 07/10 1800 07/11 Sodium Chloride 250 ML IV 0637 Norepinephrine 4 MG Q12H 07/10 1200 DC 07/10 Sodium Chloride 250 ML IV 07/10 1759 1017 Nystatin 1 GENE TID 07/09 2200 07/11 TOP 0834 Pantoprazole Sodium 40 MG BID 07/10 1016 07/11 IV 0834 Pantoprazole Sodium 80 MG Q10H 07/09 1930 DC 07/10 Sodium Chloride 100 ML IV 0423 Sodium Bicarbonate 150 MEQ ONCE ONE 07/10 0845 CAN Dextrose/Water 1,000 ML IV 07/10 1344 Sodium Chloride 1,000 ML BOLUS ONE 07/10 1130 DC 07/10 IV 07/10 1229 1132 Sodium Chloride 500 ML BOLUS ONE 07/10 1115 CAN IV 07/10 1214 Sodium Chloride 1,000 ML BOLUS ONE 07/10 0845 DC 07/10 IV 07/10 0944 0854 Results Results: E. Coli in urine culture 1. ESCHERICHIA COLI RX AB ------ -- AMPICILLIN S CEFAZOLIN S AMOXICILLIN/CLAVULINIC ACID S AMPICILLIN/SULBACTAM S CIPROFLOXACIN S GENTAMICIN S NITROFURANTOIN S TRIMETHOPRIM/SULFAMETHOXAZOLE S CXR Findings: IMPRESSION: 1. Endotracheal tube remains approximately 5.5 cm above the kika. 2. Cardiomegaly. No acute cardiopulmonary findings compared to the prior CXR of 07/10/2017. Radiology Findings: 07/09 IMPRESSION: Chest: Mild to moderate centrilobular pulmonary emphysema without acute pulmonary infiltrate. No pleural effusions or pericardial effusions. Atherosclerosis and coronary artery disease. Abdomen pelvis: Interval development of a moderate amount of free fluid and free air within the abdomen and pelvis since 07/08/2017 CT scan suggests bowel perforation. There are some inflammatory changes in the right side of the abdomen which could suggest the origin of the bowel perforation. Inflammatory changes extend to the C-loop of the duodenum as well when there is some wall thickening. No CT evidence of acute appendicitis. Impression/Plan Impression/Problem List Impression: 76 year old gentleman PAF on Tikosyn, not on AC, 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 POD 2, continues to be intuibated and requiring MV support. Plan: #Post op respiratory support with Mechanical ventilation - Patient was intubated for surgery 07/09/17 and continues to remain mechanically ventilated. - His ABG this AM show pH: 7.38; pCO2: 30, pO2: 94 with vent settings A/C; RR: 25; TV: 600ml; PEEP: 5 - Fentanyl for sedation - F/U ABG - F/U CXR #Septic shock - 2/2 peritonitis from perforated duodenal ulcer - S/p fluid resuscitation and pressors. - Continue to hydrate with D5/NS @ 200mls/hr for 3-4 hrs. Goal to maintain CVP of 6 and or MAP of > 65mmHg - Meropenem to 1000mg q24 hrs IV. - F/U OR cultures, BC X2, . #Hypotension - 2/2 septic shock - Titrate to maintain MAP > 65mmHg, and bolus with fluids with caution to maintain a CVP of 6. #CAD s/p CABG - Continue to hold ASA, Carvedilol, lisinopril, simvastatin given hypotension and NPO status - Obtain an EKG and trend trops to r/o ND - F/U limited Echo - F/U card recs #Hx of PAF on Tikosyn - Curently in NSR,a nd rat controlled - Continue to hold tikosyn # Perforated duodenal ulcer - S/P Fabrizio repair yesterday with WILLEM drain - Followed by [facility] - IV Protonix 40mg BID - NPO status for now. - F/U Gen Surg recs. #Metabolic acidosis - 2/2 lactic acidosis from systemic hypoperfusion - f/u repeat LA. - Continue IVF hydration #USMAN - 2/2 ATN from dereased perfusion and having received IV contrast yesterday. - Continue hydration with IVF - Continue IVFs. - Continue to montior -F/U nephro recs #Hypocalcemia - F/U ionized calcium - pending. - Replete as needed #Neuro - On Fentanyl; SAS of 3. - Physical exam limited as he is intubated and sedated. - DVT prophylaxis - On heparin 5000iu TID SC - Diet - NPO - Code Status - Full Code Problem List: 1. Lactic acidosis 2. Perforated viscus Pain Ratin Tomorrow's Labs & Rationales: Septic shock Plan DVT/Prophylaxis: mechanical, pharmacological
--- NOTE | 2017-07-11 08:16 | RADIOLOGY REPORT ---
EXAMINATION: XR PORTABLE CHEST CLINICAL INFORMATION: Intubated COMPARISON: 07/10/2017 TECHNIQUE: Portable frontal view of the chest was obtained. FINDINGS: Large body habitus. Endotracheal tube remains in stable position at approximately 5.5 cm above the kika. The tip of the right IJ central line is in the distal superior vena cava. Note that if patient has an enteric tube, it is poorly visualized. No acute cardiopulmonary findings compared to the prior exam. Again noted is a large cardiac silhouette, status post CABG, and dual-chamber cardiac pacemaker/AICD in place. No acute skeletal findings. IMPRESSION: 1. Endotracheal tube remains approximately 5.5 cm above the kika. 2. Cardiomegaly. No acute cardiopulmonary findings compared to the prior CXR of 07/10/2017.
--- NOTE | 2017-07-11 09:42 | ECHOCARDIOGRAM REPORT ---
LUIS HENDERSON Age: 76 : 1940 Gender: M Exam Date: 07/10/2017 08:48 Exam Location: [facility] Ht (in): 69 Wt (lb): 266 BSA: 2.48 BP: 108 / 60 Ordering Physician: ELIOT GALLOWAY MD Referring Physician: Arpit García MD Technologist: Jodee Grossman IVETTE Room Number: [id number] Indications: LV FUNCTION AFTER ACS Rhythm: Atrial fibrillation Technical Quality: Poor FINDINGS Left Ventricle Normal size left ventricle. Moderate concentric left ventricular hypertrophy. Akinetic septum. Moderately reduced global left ventricular systolic function. Moderately abnormal left ventricular ejection fraction estimated at 25-30%. Right Ventricle Right ventricle not well visualized, grossly normal. Catheter/pacemaker wire in the right ventricular cavity. Right Atrium Right atrium not well visualized. Catheter/pacemaker wire in the right atrial cavity. Left Atrium Mild to moderate left atrial dilatation. Possible interatrial septal aneurysm. Mitral Valve Mild mitral annular calcification. Mitral valve mildly thickened. Trace mitral regurgitation. Aortic Valve Aortic valve not well visualized. Mild aortic sclerosis. No aortic valve stenosis or regurgitation. Tricuspid Valve Tricuspid valve not well visualized, grossly normal. Trace tricuspid regurgitation. Pulmonic Valve Pulmonic valve not well visualized. Pericardium No pericardial effusion. Great Vessels Mild aortic dilatation at the level of the sinuses of valsalva (root). CONCLUSIONS Normal size left ventricle. Moderate concentric left ventricular hypertrophy. Akinetic septum. Moderately reduced global left ventricular systolic function. Moderately abnormal left ventricular ejection fraction estimated at 25-30%. Right ventricle not well visualized, grossly normal. Right atrium not well visualized. Catheter/pacemaker wire in the right heart. Mild to moderate left atrial dilatation. Possible interatrial septal aneurysm. Trace mitral regurgitation. Trace tricuspid regurgitation. Mild aortic dilatation at the level of the sinuses of valsalva (root). Von Sanchez M.D. (Electronically Signed) Final Date: 11 July 2017 09:41 MEASUREMENTS (Male / Female) Normal Values 2D ECHO LV Diastolic Diameter PLAX 4.6 cm 4.2 - 5.9 / 3.9 - 5.3 cm LV Systolic Diameter PLAX 4.0 cm 2.1 - 4.0 cm LV Fractional Shortening PLAX 13.0 % 25 - 46 % LV Ejection Fraction 2D Teich 28.1 % IVS Diastolic Thickness 1.5 cm LVPW Diastolic Thickness 1.4 cm LV Relative Wall Thickness 0.6 LVOT Diameter 2.5 cm Aortic Root Diameter 4.1 cm LA Systolic Diameter LX 3.9 cm 3.0 - 4.0 / 2.7 - 3.8 cm DOPPLER TR Peak Velocity 174.0 cm/s TR Peak Gradient 12.1 mmHg Right Atrial Pressure 10.0 mmHg Pulmonary Artery Systolic Pressu 22.1 mmHg Right Ventricular Systolic Press 22.1 mmHg
--- NOTE | 2017-07-11 09:56 | PN- CRCU ---
Subjective HPI/Critical Care Issues: Intubated and sedated. Calm, cooperative, easily arousable. Afebrile overnight. Now has secent urine out put Runs of monomorphic VT yesterday and AICD in place tikosyn held Significant outward from the GABRIELA drainage noted patient has had about 1 and 2000 mL from that. Urine output has improved Patient is positive over 10 L since yesterday CVP is around 5 Vital signs otherwise stable now afebrile Continues to be on assist control of 25 600/45%. ABG reviewed .. Objective Current Medications: Current Medications Sig/Buck Start time Last Medication Dose Route Stop Time Status Admin Acetaminophen 1,000 MG Q6H PRN 07/09 1900 07/10 N/A 1 UNIT IV 1807 Budesonide/ 2 PUF BID 07/09 2200 Formoterol Fumarate INH Calcium Gluconate 1 GM ONCE ONE 07/10 191 DC 07/10 Sodium Chloride 100 ML IV 07/10 Dextrose/Sodium 1,000 ML Q5H 07/10 190 07/11 Chloride IV 0834 Dextrose/Sodium 1,000 ML Q6H 07/10 1015 DC 07/10 Chloride IV 1622 Fentanyl Citrate 1,000 MCG Q13H 07/10 2300 07/11 Dextrose/Water 250 ML IV 0156 Fentanyl Citrate 1,000 MCG Q24H 07/09 1815 DC 07/10 Dextrose/Water 250 ML IV 07/10 2259 1017 Heparin Sodium 5,000 UNIT Q8 07/10 0138 07/11 (Porcine) OR 0557 Insulin Human Regular 0 Q4 07/09 2200 07/11 SC 0640 Magnesium Sulfate 1 GM Q2H 07/10 1400 DC 07/10 Dextrose/Water 100 ML IV 07/10 1759 1607 Meropenem 1 GM Q24 07/11 1000 DC IV Meropenem 1 GM Q24H 07/11 0500 07/11 IV 0436 Norepinephrine 4 MG Q8H 07/10 1800 AC 07/11 Sodium Chloride 250 ML IV 0637 Norepinephrine 4 MG Q12H 07/10 1200 DC 07/10 Sodium Chloride 250 ML IV 07/10 1759 1017 Nystatin 1 GENE TID 07/09 2200 AC 07/11 TOP 0834 Pantoprazole Sodium 40 MG BID 07/10 1016 07/11 IV 0834 Pantoprazole Sodium 80 MG Q10H 07/09 1930 DC 07/10 Sodium Chloride 100 ML IV 0423 Sodium Chloride 1,000 ML BOLUS ONE 07/10 1130 DC 07/10 IV 07/10 1229 1132 Sodium Chloride 500 ML BOLUS ONE 07/10 1115 CAN IV 07/10 1214 SIGNIFICANT DATA Creatinine to 4.2 BUN 60 Anion gap is now 13 potassium adequate lactic acid is now down to 2.3 calcium is still relatively low White count 14.8 hemoglobin 12.7 platelets 187 patient now has 5% bands INR 1.53 ABG as noted above Cultures so far pending Sputum culture showed no significant organisms Chest x-ray done today showed cardiomegaly no significant pulmonary edema Vital Signs & I&O Last 24 Hrs of Vitals and I&O: Vital Signs Date Time Temp Pulse Resp B/P B/P Pulse O2 O2 Flow FiO2 Mean Ox Delivery Rate 07/11 806 45 07/11 0637 81 25 106/52 07/11 0600 45 07/11 0400 95 Ventilator 45% 07/11 0303 45 07/11 0056 45 07/11 0000 99.8 89 25 92/56 96 Ventilator 45% 07/11 0000 96 Ventilator 45% 07/10 2227 45 07/10 2210 96 27 99/50 07/10 2000 96 Ventilator 45% 07/10 1939 98.8 07/10 1915 45 07/10 1807 102.8 07/10 1615 50 07/10 1600 94 Ventilator 45% 07/10 1600 99.2 102 25 100/58 94 Ventilator 45% 07/10 1500 50 07/10 1434 40 07/10 1200 96 Ventilator 40% 07/10 1200 99.1 102 28 92/60 96 Ventilator 40% 07/10 1125 40 07/10 1017 103/68 Intake & Output 07/11 1600 07/11 0800 07/11 0000 Intake Total 1964 2180 Output Total 1477 1053 Balance 487 1127 Intake, IV 1964 2180 Output, 1060 790 Drainage Output, 0 50 Gastric Drainage Output, Urine 417 213 Patient 275 lb Weight Laboratory Tests 07/11 07/11 0605 0400 Blood Gas pH (7.35 - 7.45 PH) 7.38 pCO2 (35 - 45 TORR) 30 L pO2 (80 - 100 TORR) 94 HCO3 (21 - 28 MEQ/L) 17 L ABG O2 Sat (Measured) (>96.0 %) 97.0 P-50 (Temp Corrected) N Carboxyhemoglobin (1.5 - 5.0 %) 0.3 L O2 Concentration % .45 Respiration Rate (BPM) 25 O2 Delivery Method VENT Vent Mode A/C Expiratory Pressure (CMH2O/P) 5 Tidal Volume (CC) 600 Chemistry Sodium (137 - 145 mmol/L) 144 Potassium (3.5 - 5.1 mmol/L) 4.2 Chloride (98 - 107 mmol/L) 115 H Carbon Dioxide (22 - 30 mmol/L) 16 L Anion Gap (5 - 16) 13 BUN (9 - 20 mg/dL) 60 H Creatinine (0.7 - 1.2 mg/dL) 4.2 H Estimated GFR (>60 ml/min) 14 L Glucose (65 - 99 mg/dL) 216 H Lactic Acid (0.7 - 2.1 mmol/L) 2.3 H Calcium (8.4 - 10.2 mg/dL) 6.7 L Phosphorus (2.5 - 4.5 mg/dL) 4.2 Magnesium (1.6 - 2.3 mg/dL) 2.2 Total Bilirubin (0.2 - 1.3 mg/dL) 0.5 AST (17 - 59 U/L) 20 ALT (21 - 72 U/L) 22 Albumin (3.5 - 5.0 g/dL) 1.7 L Coagulation PT (9.4 - 12.5 SEC) 16.0 H INR (0.90 - 1.17) 1.53 H Hematology CBC w Diff MAN DIFF ORDERED WBC (4.8 - 10.8 /CUMM) 14.8 H RBC (4.70 - 6.10 /CUMM) 4.47 L Hgb (14.0 - 18.0 G/DL) 12.7 L Hct (42 - 52 %) 39.0 L MCV (80.0 - 94.0 FL) 87.3 MCH (27.0 - 31.0 PG) 28.3 RDW (11.5 - 14.5 %) 16.6 H Plt Count (130 - 400 /CUMM) 184 MPV (7.4 - 10.4 FL) 8.9 Gran % (42.2 - 75.2 %) 67.5 Lymphocytes % (20.5 - 51.1 %) 25.5 Monocytes % (1.7 - 9.3 %) 6.5 Eosinophils % (0 - 5 %) 0.1 Basophils % (0.0 - 2.0 %) 0.4 Absolute Granulocytes (1.4 - 6.5 /CUMM) 10.0 H Segmented Neutrophils (42.2 - 75.2 %) 68 Band Neutrophils (0.0 - 5.0 %) 5 Absolute Lymphocytes (1.2 - 3.4 /CUMM) 3.8 H Lymphocytes (20.5 - 51.1 %) 26 Monocytes (1.7 - 9.3 %) 1 L Absolute Monocytes (0.10 - 0.60 /CUMM) 1.0 H Absolute Eosinophils (0.0 - 0.7 /CUMM) 0 Absolute Basophils (0.0 - 0.2 /CUMM) 0.1 Platelet Estimate (ADEQUATE) ADEQUATE Normocytic RBCs VERIFIED Normochromic RBCs VERIFIED PUBS MCHC (33.0 - 37.0 G/DL) 32.4 L Miscellaneous Phlebotomy Draw Site LEFT BRACHIAL 07/10 07/10 07/10 07/10 2120 1905 1820 1520 Blood Gas pH (7.35 - 7.45 PH) 7.39 pCO2 (35 - 45 TORR) 29 L pO2 (80 - 100 TORR) 86 HCO3 (21 - 28 MEQ/L) 17 L ABG O2 Sat (Measured) (>96.0 %) 96.0 P-50 (Temp Corrected) N Carboxyhemoglobin (1.5 - 5.0 %) 0.6 L O2 Concentration % 45% Temperature (97.0 - 100.0 FARH) 99.0 Respiration Rate (BPM) 25 O2 Delivery Method ESPRIT Vent Mode AC Expiratory Pressure (CMH2O/P) 5 Tidal Volume (CC) 600 Chemistry Sodium (137 - 145 mmol/L) 142 Potassium (3.5 - 5.1 mmol/L) 4.4 Chloride (98 - 107 mmol/L) 114 H Carbon Dioxide (22 - 30 mmol/L) 16 L Anion Gap (5 - 16) 13 BUN (9 - 20 mg/dL) 54 H Creatinine (0.7 - 1.2 mg/dL) 4.0 H Estimated GFR (>60 ml/min) 15 L Glucose (65 - 99 mg/dL) 258 H Lactic Acid (0.7 - 2.1 mmol/L) 2.9 H 3.3 H 3.3 H Calcium (8.4 - 10.2 mg/dL) 6.3 L Phosphorus (2.5 - 4.5 mg/dL) 4.0 Magnesium (1.6 - 2.3 mg/dL) 2.2 Total Bilirubin (0.2 - 1.3 mg/dL) 0.5 AST (17 - 59 U/L) 23 ALT (21 - 72 U/L) 24 Albumin (3.5 - 5.0 g/dL) 1.7 L Miscellaneous Phlebotomy Draw Site LEFT BRACHIAL Serology Hepatitis A IgM Ab (NONREACTIVE) Pending Hep Bs Antigen (NONREACTIVE) Pending Hep B Core IgM Ab Conf (NONREACTIVE) Pending Hepatitis C Antibody (NONREACTIVE) Pending 07/10 07/10 07/10 1245 1245 1158 Chemistry Sodium (137 - 145 mmol/L) 143 Potassium (3.5 - 5.1 mmol/L) 4.4 Chloride (98 - 107 mmol/L) 113 H Carbon Dioxide (22 - 30 mmol/L) 16 L Anion Gap (5 - 16) 13 BUN (9 - 20 mg/dL) 50 H Creatinine (0.7 - 1.2 mg/dL) 3.7 H Estimated GFR (>60 ml/min) 16 L Glucose (65 - 99 mg/dL) 241 H Lactic Acid (0.7 - 2.1 mmol/L) 4.0 H Calcium (8.4 - 10.2 mg/dL) 6.5 L Phosphorus (2.5 - 4.5 mg/dL) 3.8 Magnesium (1.6 - 2.3 mg/dL) 1.7 Total Bilirubin (0.2 - 1.3 mg/dL) 0.5 AST (17 - 59 U/L) 25 ALT (21 - 72 U/L) 24 Albumin (3.5 - 5.0 g/dL) 1.8 L Coagulation PT (9.4 - 12.5 SEC) 17.7 H INR (0.90 - 1.17) 1.69 H Urines Urinalysis MOD H Urine Color (YEL,AMB,STR) ORANG H Urine Clarity (CLEAR) CLDY H Urine pH (5.0 - 8.0) 5.0 Ur Specific Wilder (1.001 - 1.035) 1.025 Urine Protein (NEG,<30 MG/DL) 100 H Urine Ketones (NEG) TRACE H Urine Nitrite (NEG) NEG Urine Bilirubin (NEG) NEG@ICTO Urine Urobilinogen (0.1 - 1.0 EU/dl) 0.2 Ur Leukocyte Esterase (NEG) NEG Ur Microscopic SEDIMENT EXAMINED Urine RBC (0 - 5 /HPF) >75 H Urine WBC (0 - 2 /HPF) 1-3 H Ur Epithelial Cells (NONE,FEW) RARE Urine Bacteria (NEG/NONE) FEW H Granular Casts (NONE /LPF) RARE H Urine Mucus (FEW,NONE) FEW Urine Hemoglobin (NEG) LARGE H Urine Osmolality (300 - 1000 MOSM/KG) 375 Ur Random Creatinine (mg/dL) 141.8 Ur Random Sodium (30 - 90 mmol/L) 38 Ur Random Potassium (mmol/L) 46.3 Fraction Sodium Excret (<1% %) 0.7 Urine Glucose (N MG/DL) NEG 07/10 07/10 07/10 07/10 1112 0845 0555 0500 Blood Gas pH (7.35 - 7.45 PH) 7.41 pCO2 (35 - 45 TORR) 27 L pO2 (80 - 100 TORR) 93 HCO3 (21 - 28 MEQ/L) 17 L ABG O2 Sat (Measured) (>96.0 %) 97.0 P-50 (Temp Corrected) N Carboxyhemoglobin (1.5 - 5.0 %) 0.6 L O2 Concentration % .40 Respiration Rate (BPM) 16 O2 Delivery Method VENT Vent Mode A/C Expiratory Pressure (CMH2O/P) 5 Tidal Volume (CC) 600 Chemistry Sodium (137 - 145 mmol/L) 142 Potassium (3.5 - 5.1 mmol/L) 4.9 Chloride (98 - 107 mmol/L) 110 H Carbon Dioxide (22 - 30 mmol/L) 17 L Anion Gap (5 - 16) 15 BUN (9 - 20 mg/dL) 48 H Creatinine (0.7 - 1.2 mg/dL) 3.7 H Estimated GFR (>60 ml/min) 16 L BUN/Creatinine Ratio (7 - 25 %) 13.0 Lactic Acid (0.7 - 2.1 mmol/L) 4.6 H 4.1 H Ionized Calcium Pending Phosphorus (2.5 - 4.5 mg/dL) 3.8 Magnesium (1.6 - 2.3 mg/dL) 1.8 Troponin I (<0.11 ng/ml) 0.07 TSH (0.270 - 4.200 uIU/mL) 2.210 Cortisol AM Sample (4.46 - 22.7 ug/dL) 64.1 H Miscellaneous Phlebotomy Draw Site [facility] 07/10 07/10 07/10 0500 0230 0230 Chemistry Sodium (137 - 145 mmol/L) 141 Potassium (3.5 - 5.1 mmol/L) 4.8 5.0 Chloride (98 - 107 mmol/L) 114 H Carbon Dioxide (22 - 30 mmol/L) 14 L Anion Gap (5 - 16) 13 BUN (9 - 20 mg/dL) 45 H Creatinine (0.7 - 1.2 mg/dL) 3.2 H Estimated GFR (>60 ml/min) 19 L Glucose (65 - 99 mg/dL) 268 H Lactic Acid (0.7 - 2.1 mmol/L) 4.4 H Calcium (8.4 - 10.2 mg/dL) 6.8 L Phosphorus (2.5 - 4.5 mg/dL) 3.7 Magnesium (1.6 - 2.3 mg/dL) 1.8 Total Bilirubin (0.2 - 1.3 mg/dL) 0.6 AST (17 - 59 U/L) 22 ALT (21 - 72 U/L) 27 Albumin (3.5 - 5.0 g/dL) 1.8 L Hematology CBC w Diff MAN DIFF ORDERED WBC (4.8 - 10.8 /CUMM) 15.1 H RBC (4.70 - 6.10 /CUMM) 5.37 Hgb (14.0 - 18.0 G/DL) 15.2 Hct (42 - 52 %) 47.0 MCV (80.0 - 94.0 FL) 87.4 MCH (27.0 - 31.0 PG) 28.4 RDW (11.5 - 14.5 %) 16.3 H Plt Count (130 - 400 /CUMM) 199 MPV (7.4 - 10.4 FL) 9.7 Gran % (42.2 - 75.2 %) 60.5 Lymphocytes % (20.5 - 51.1 %) 31.1 Monocytes % (1.7 - 9.3 %) 7.9 Eosinophils % (0 - 5 %) 0.1 Basophils % (0.0 - 2.0 %) 0.4 Absolute Granulocytes (1.4 - 6.5 /CUMM) 9.1 H Segmented Neutrophils (42.2 - 75.2 %) 26 L Band Neutrophils (0.0 - 5.0 %) 24 H Absolute Lymphocytes (1.2 - 3.4 /CUMM) 4.7 H Lymphocytes (20.5 - 51.1 %) 38 Monocytes (1.7 - 9.3 %) 12 H Absolute Monocytes (0.10 - 0.60 /CUMM) 1.2 H Absolute Eosinophils (0.0 - 0.7 /CUMM) 0 Absolute Basophils (0.0 - 0.2 /CUMM) 0.1 Platelet Estimate (ADEQUATE) VERIFIED BY SMEAR Poikilocytosis 1+ Anisocytosis 1+ [place] Cells 1+ PUBS MCHC (33.0 - 37.0 G/DL) 32.5 L 07/10 07/09 07/09 0020 2343 2250 Blood Gas pH (7.35 - 7.45 PH) 7.34 L pCO2 (35 - 45 TORR) 25 L pO2 (80 - 100 TORR) 124 H HCO3 (21 - 28 MEQ/L) 13 L ABG O2 Sat (Measured) (>96.0 %) 97.0 P-50 (Temp Corrected) N Carboxyhemoglobin (1.5 - 5.0 %) 0.8 L O2 Concentration % 50% Temperature (97.0 - 100.0 FARH) 99.6 Respiration Rate (BPM) 16 O2 Delivery Method ESPRIT Vent Mode AC Expiratory Pressure (CMH2O/P) 5 Tidal Volume (CC) 600 Chemistry Sodium (137 - 145 mmol/L) 141 Potassium (3.5 - 5.1 mmol/L) 5.5 H Chloride (98 - 107 mmol/L) 113 H Carbon Dioxide (22 - 30 mmol/L) 13 L Anion Gap (5 - 16) 15 BUN (9 - 20 mg/dL) 42 H Creatinine (0.7 - 1.2 mg/dL) 2.6 H Estimated GFR (>60 ml/min) 24 L Glucose (65 - 99 mg/dL) 240 H Lactic Acid (0.7 - 2.1 mmol/L) 4.1 H Calcium (8.4 - 10.2 mg/dL) 7.1 L Phosphorus (2.5 - 4.5 mg/dL) 4.6 H Magnesium (1.6 - 2.3 mg/dL) 1.9 Total Bilirubin (0.2 - 1.3 mg/dL) 0.8 AST (17 - 59 U/L) 24 ALT (21 - 72 U/L) 22 Troponin I (<0.11 ng/ml) 0.05 Albumin (3.5 - 5.0 g/dL) 2.2 L Hematology CBC w Diff MAN DIFF ORDERED WBC (4.8 - 10.8 /CUMM) 14.1 H RBC (4.70 - 6.10 /CUMM) 5.76 Hgb (14.0 - 18.0 G/DL) 16.3 Hct (42 - 52 %) 50.3 MCV (80.0 - 94.0 FL) 87.4 MCH (27.0 - 31.0 PG) 28.3 RDW (11.5 - 14.5 %) 15.9 H Plt Count (130 - 400 /CUMM) 202 MPV (7.4 - 10.4 FL) 9.2 Gran % (42.2 - 75.2 %) 58.6 Lymphocytes % (20.5 - 51.1 %) 34.9 Monocytes % (1.7 - 9.3 %) 6.4 Eosinophils % (0 - 5 %) 0 Basophils % (0.0 - 2.0 %) 0.1 Absolute Granulocytes (1.4 - 6.5 /CUMM) 8.3 H Segmented Neutrophils (42.2 - 75.2 %) 24 L Band Neutrophils (0.0 - 5.0 %) 17 H Absolute Lymphocytes (1.2 - 3.4 /CUMM) 4.9 H Lymphocytes (20.5 - 51.1 %) 53 H Monocytes (1.7 - 9.3 %) 5 Absolute Monocytes (0.10 - 0.60 /CUMM) 0.9 H Absolute Eosinophils (0.0 - 0.7 /CUMM) 0 Absolute Basophils (0.0 - 0.2 /CUMM) 0 Metamyelocytes (0.0 - 1.0 %) 1 Platelet Estimate (ADEQUATE) ADEQUATE Normocytic RBCs VERIFIED Normochromic RBCs VERIFIED PUBS MCHC (33.0 - 37.0 G/DL) 32.3 L Miscellaneous Phlebotomy Draw Site [facility] 07/09 Chemistry Sodium (137 - 145 mmol/L) 141 Potassium (3.5 - 5.1 mmol/L) 5.0 Chloride (98 - 107 mmol/L) 112 H Carbon Dioxide (22 - 30 mmol/L) 14 L Anion Gap (5 - 16) 15 BUN (9 - 20 mg/dL) 36 H Creatinine (0.7 - 1.2 mg/dL) 2.2 H Estimated GFR (>60 ml/min) 29 L Glucose (65 - 99 mg/dL) 233 H Lactic Acid (0.7 - 2.1 mmol/L) Cancelled 4.3 H Calcium (8.4 - 10.2 mg/dL) 7.1 L Phosphorus (2.5 - 4.5 mg/dL) 5.0 H Magnesium (1.6 - 2.3 mg/dL) 1.8 Total Bilirubin (0.2 - 1.3 mg/dL) 0.7 AST (17 - 59 U/L) 24 ALT (21 - 72 U/L) 29 Troponin I (<0.11 ng/ml) 0.05 Albumin (3.5 - 5.0 g/dL) 2.2 L Hematology CBC w Diff MAN DIFF ORDERED WBC (4.8 - 10.8 /CUMM) 13.5 H RBC (4.70 - 6.10 /CUMM) 5.63 Hgb (14.0 - 18.0 G/DL) 15.9 Hct (42 - 52 %) 49.5 MCV (80.0 - 94.0 FL) 87.9 MCH (27.0 - 31.0 PG) 28.3 RDW (11.5 - 14.5 %) 16.1 H Plt Count (130 - 400 /CUMM) ND MPV (7.4 - 10.4 FL) ND Gran % (42.2 - 75.2 %) 50.1 Lymphocytes % (20.5 - 51.1 %) 40.2 Monocytes % (1.7 - 9.3 %) 9.7 H Eosinophils % (0 - 5 %) 0 Basophils % (0.0 - 2.0 %) 0 Absolute Granulocytes (1.4 - 6.5 /CUMM) 6.8 H Segmented Neutrophils (42.2 - 75.2 %) 27 L Band Neutrophils (0.0 - 5.0 %) 23 H Absolute Lymphocytes (1.2 - 3.4 /CUMM) 5.4 H Lymphocytes (20.5 - 51.1 %) 39 Monocytes (1.7 - 9.3 %) 7 Absolute Monocytes (0.10 - 0.60 /CUMM) 1.3 H Absolute Eosinophils (0.0 - 0.7 /CUMM) 0 Absolute Basophils (0.0 - 0.2 /CUMM) 0 Metamyelocytes (0.0 - 1.0 %) 4 H Platelet Estimate (ADEQUATE) ADEQUATE Anisocytosis 1+ PUBS MCHC (33.0 - 37.0 G/DL) 32.2 L Other Body Source Fld Total RBCs Counted (%) 100 07/09 07/09 07/09 1905 1320 1320 Blood Gas pH (7.35 - 7.45 PH) 7.22 *L pCO2 (35 - 45 TORR) 38 pO2 (80 - 100 TORR) 118 H HCO3 (21 - 28 MEQ/L) 15 L ABG O2 Sat (Measured) (>96.0 %) 96.0 P-50 (Temp Corrected) N Carboxyhemoglobin (1.5 - 5.0 %) 1.0 L O2 Concentration % 60 Temperature (97.0 - 100.0 FARH) 98.1 Respiration Rate (BPM) 16 O2 Delivery Method ESPRIT Vent Mode AC Expiratory Pressure (CMH2O/P) 5 Tidal Volume (CC) 600 Chemistry Sodium (137 - 145 mmol/L) 143 Potassium (3.5 - 5.1 mmol/L) 4.6 Chloride (98 - 107 mmol/L) 107 Carbon Dioxide (22 - 30 mmol/L) 12 L Anion Gap (5 - 16) 24 H BUN (9 - 20 mg/dL) 27 H Creatinine (0.7 - 1.2 mg/dL) 1.7 H Estimated GFR (>60 ml/min) 39 L Glucose (65 - 99 mg/dL) 312 H Lactic Acid (0.7 - 2.1 mmol/L) 11.0 H Calcium (8.4 - 10.2 mg/dL) 9.5 Phosphorus (2.5 - 4.5 mg/dL) 4.1 Magnesium (1.6 - 2.3 mg/dL) 1.9 Total Bilirubin (0.2 - 1.3 mg/dL) 1.2 AST (17 - 59 U/L) 26 ALT (21 - 72 U/L) 19 L Troponin I (<0.11 ng/ml) 0.03 Albumin (3.5 - 5.0 g/dL) 3.8 Coagulation PT (9.4 - 12.5 SEC) 14.5 H INR (0.90 - 1.17) 1.39 H Hematology CBC w Diff MAN DIFF ORDERED WBC (4.8 - 10.8 /CUMM) 14.2 H RBC (4.70 - 6.10 /CUMM) 6.39 H Hgb (14.0 - 18.0 G/DL) 17.9 Hct (42 - 52 %) 56.5 H MCV (80.0 - 94.0 FL) 88.5 MCH (27.0 - 31.0 PG) 28.0 RDW (11.5 - 14.5 %) 15.8 H Plt Count (130 - 400 /CUMM) 200 MPV (7.4 - 10.4 FL) 10.7 H Gran % (42.2 - 75.2 %) 61.7 Lymphocytes % (20.5 - 51.1 %) 32.4 Monocytes % (1.7 - 9.3 %) 5.6 Eosinophils % (0 - 5 %) 0 Basophils % (0.0 - 2.0 %) 0.3 Absolute Granulocytes (1.4 - 6.5 /CUMM) 8.7 H Segmented Neutrophils (42.2 - 75.2 %) 31 L Band Neutrophils (0.0 - 5.0 %) 24 H Absolute Lymphocytes (1.2 - 3.4 /CUMM) 4.6 H Lymphocytes (20.5 - 51.1 %) 39 Monocytes (1.7 - 9.3 %) 6 Absolute Monocytes (0.10 - 0.60 /CUMM) 0.8 H Absolute Eosinophils (0.0 - 0.7 /CUMM) 0 Absolute Basophils (0.0 - 0.2 /CUMM) 0 Platelet Estimate (ADEQUATE) VERIFIED BY SMEAR Polychromasia 1+ Anisocytosis 1+ PUBS MCHC (33.0 - 37.0 G/DL) 31.6 L Miscellaneous Phlebotomy Draw Site [facility] 07/09 07/09 1149 1100 Chemistry Lactic Acid Cancelled Troponin I Cancelled Microbiology Date/Time Procedure - Status Source Growth 07/10 1450 Respiratory Culture - RES LOWER RESP 07/10 1450 Gram Stain - RES LOWER RESP 07/09 1943 Blood Culture - RES BLOOD 07/09 1928 Blood Culture - RES BLOOD 07/09 1705 Body Fluid Culture - RES BODY FLUID 07/09 1705 Gram Stain - RES BODY FLUID 07/09 1410 Surveillance Culture - RECD GI 07/09 1300 Surveillance Culture - RECD UPPER RESP 07/08 2340 Influenza Virus A & B Rapid Smear - COMP NASOPHARYN 07/08 1510 Urine Culture - COMP URINE ROUT ESCHERICHIA COLI 07/08 1500 Blood Culture - RES BLOOD 07/08 1436 Blood Culture - CAN BLOOD Cancelled: SPECIMEN NOT RECEIVED IN LABORATORY Impression/Plan Impression/Plan Impression/Plan: Afebrile. He is sedated but esponsive on the ventilator. Skin reveals no rash. HEENT negative. Neck supple with no adenopathy; right IJ triple-lumen catheter in place, with no inflammation at the site. Lungs decreased breath sounds bilaterally. Heart regular rhythm with no murmur. Abdomen is obese, distended, tender to palpation, Incision noted with a gabriela drain in the rt side Back no CVA tenderness. Extremities right hip incision clean, with no erythema or drainage; uperficial ulcerations over the anterior tibial aspects of both legs, with 1+ edema bilaterally. Neuro is without focality. [place] catheter is in place IMPRESSION This is a 76-year-old gentleman with significant ischemic heart, low ejection fraction, atrial fibrillation, previous AICD, recent 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 with prolonged antibiotic, previous history of peptic ulcer disease, diabetes, previous chronic kidney disease but however his creatinine which was normal upon admission, was in sinus rhythm upon admission was on Tikosyn, hyperlipidemia, apparently has never smoked before, previous history of lithotripsy, CABG, hip prosthesis infection status post removal in early 2017 now has the following issues * S/p Perf large DU ulcer s/p surg with septic shock and peritonitis with resolving metabolic acidosis, respiratory failure, * Acute respiratory insufficiency due to above with no clinical evidence suggestive of pneumonia * Significant septic shock now requiring vasopressors with adequate fluid resuscitation ongoing so for * Significant ischemic heart disease with low ejection fraction high risk for fluid overload. Previous pafib in sinus now with a pacer and AICD * Acute renal failure most likely related to acute tubular necrosis from his septic shock and Prob contrast nephropathy * Significant diabetes with the previous CLARISA inhibitor use as well * Multiple electrolyte abnormalities now better * Significant intra-abdominal sepsis with previous hip infection now on broad- spectrum antibiotics. He has also had previous history of infection of the right hip and infectious disease sales consultant thinks that he probably has no clinical evidence suggestive of right hip infection at this present time * LIAM was on cpap RECOMMENDATION * Start psv trials * Reduce ivf to 150 keep cvp around 4-6 * Continue mechanical ventilator, decrease RR to 20 * Continue his fentanyl low-dose for now * Check his ionized calcium and he might require dose of calcium * Continue broad-spectrum antibiotics * Intravenous pantoprazole * Heparin subcutaneous * Cardio follow up * Keep him intubated today * Watch for pulm edema * COntinue abx
--- NOTE | 2017-07-11 10:20 | PN- Cardiology ---
Subjective Subjective: Events surrounding admission and hospital course reviewed. Intubated and sedated. Objective Vital Signs and I&Os Vital Signs Date Time Temp Pulse Resp B/P B/P Pulse O2 O2 Flow FiO2 Mean Ox Delivery Rate 07/11 0806 45 07/11 0637 81 25 106/52 07/11 0600 45 07/11 0400 95 Ventilator 45% 07/11 0303 45 07/11 0056 45 07/11 0000 99.8 89 25 92/56 96 Ventilator 45% 07/11 0000 96 Ventilator 45% 07/10 2227 45 07/10 2210 96 27 99/50 07/10 2000 96 Ventilator 45% 07/10 1939 98.8 07/10 1915 45 07/10 1807 102.8 07/10 1615 50 07/10 1600 94 Ventilator 45% 07/10 1600 99.2 102 25 100/58 94 Ventilator 45% 07/10 1500 50 07/10 1434 40 07/10 1200 96 Ventilator 40% 07/10 1200 99.1 102 28 92/60 96 Ventilator 40% 07/10 1125 40 Intake & Output 07/11 1600 07/11 0807/11 0000 07/10 1600 07/10 0800 07/10 0000 Intake Total 1964 2180 3698.3 3767 3590 Output Total 1477 1053 765 903 467 Balance 487 1127 2933.3 2864 3123 Intake, IV 1964 2180 3698.3 3767 3590 Intake, Oral 0 Intake, Other 0 Output, 1060 790 565 640 230 Drainage Output, 0 50 100 200 200 Gastric Drainage Output, Urine 417 213 100 63 37 Patient 275 lb 277 lb Weight Weight Bed scale Measurement Method Physical Exam: Well-developed, morbidly obese elderly male who is intubated and sedated. Vital signs: See above. Neck: No JVD, no bruits. Lungs: Decreased breath sounds bilaterally. Heart: S1, S2 with soft (grade 1/6) systolic murmur. Abdomen: Soft, absent bowel sounds. Extremities: No edema. Current Medications: Current Medications Sig/Buck Start time Last Medication Dose Route Stop Time Status Admin Acetaminophen 1,000 MG Q6H PRN 07/09 1900 AC 07/10 N/A 1 UNIT IV 1807 Budesonide/ 2 PUF BID 07/09 2200 AC Formoterol Fumarate INH Calcium Gluconate 1 GM ONCE ONE 07/10 1915 MO 07/10 Sodium Chloride 100 ML IV 07/10 Dextrose/Sodium 1,000 ML Q5H 07/10 1900 07/11 Chloride IV 0834 Dextrose/Sodium 1,000 ML Q6H 07/10 1015 DC 07/10 Chloride IV 1622 Fentanyl Citrate 1,000 MCG Q13H 07/10 2300 07/11 Dextrose/Water 250 ML IV 0156 Fentanyl Citrate 1,000 MCG Q24H 07/09 1815 MO 07/10 Dextrose/Water 250 ML IV 07/10 2259 1017 Heparin Sodium 5,000 UNIT Q8 07/10 0138 07/11 (Porcine) SC 0557 Insulin Human Regular 10 UNITS .STK-MED ONE 07/11 0219 DC IV 07/11 0220 Insulin Human Regular 0 Q4 07/09 2200 07/11 SC 1015 Magnesium Sulfate 1 GM Q2H 07/10 1400 MO 07/10 Dextrose/Water 100 ML IV 07/10 1759 1607 Meropenem 1 GM Q24 07/11 1000 DC IV Meropenem 1 GM Q24H 07/11 0500 07/11 IV 0436 Norepinephrine 4 MG Q8H 07/10 1800 07/11 Sodium Chloride 250 ML IV 0637 Norepinephrine 4 MG Q12H 07/10 1200 MO 07/10 Sodium Chloride 250 ML IV 07/10 1759 1017 Nystatin 1 GENE TID 07/09 2200 07/11 TOP 0834 Pantoprazole Sodium 40 MG BID 07/10 1016 07/11 IV 0834 Sodium Chloride 1,000 ML BOLUS ONE 07/10 1130 DC 07/10 IV 07/10 1229 1132 Sodium Chloride 500 ML BOLUS ONE 07/10 1115 CAN IV 07/10 1214 Results Last 48 Hrs of Labs/Mics: Laboratory Tests 07/11/17 0605: pH 7.38, pCO2 30 L, pO2 94, HCO3 17 L, ABG O2 Sat (Measured) 97.0, P-50 (Temp Corrected) N, Carboxyhemoglobin 0.3 L, O2 Concentration % .45, Respiration Rate 25, O2 Delivery Method VENT, Vent Mode A/C, Expiratory Pressure 5, Tidal Volume 600, Phlebotomy Draw Site LEFT BRACHIAL 07/11/17 0400: Anion Gap 13, Estimated GFR 14 L, Glucose 216 H, Lactic Acid 2.3 H, Calcium 6.7 L, Phosphorus 4.2, Magnesium 2.2, Total Bilirubin 0.5, AST 20, ALT 22, Albumin 1.7 L, PT 16.0 H, INR 1.53 H, CBC w Diff MAN DIFF ORDERED, RBC 4.47 L, MCV 87.3, MCH 28.3, RDW 16.6 H, MPV 8.9, Gran % 67.5, Lymphocytes % 25.5, Monocytes % 6.5, Eosinophils % 0.1, Basophils % 0.4, Absolute Granulocytes 10.0 H, Segmented Neutrophils 68, Band Neutrophils 5, Absolute Lymphocytes 3.8 H, Lymphocytes 26, Monocytes 1 L, Absolute Monocytes 1.0 H, Absolute Eosinophils 0, Absolute Basophils 0.1, Platelet Estimate ADEQUATE, Normocytic RBCs VERIFIED, Normochromic RBCs VERIFIED, PUBS MCHC 32.4 L 07/10/172119: Lactic Acid 2.9 H 07/10/17 1905: pH 7.39, pCO2 29 L, pO2 86, HCO3 17 L, ABG O2 Sat (Measured) 96.0, P-50 (Temp Corrected) N, Carboxyhemoglobin 0.6 L, O2 Concentration % 45%, Temperature 99.0 , Respiration Rate 25, O2 Delivery Method ESPRIT, Vent Mode AC, Expiratory Pressure 5, Tidal Volume 600, Phlebotomy Draw Site LEFT BRACHIAL 07/10/17 1820: Anion Gap 13, Estimated GFR 15 L, Glucose 258 H, Lactic Acid 3.3 H, Calcium 6.3 L, Phosphorus 4.0, Magnesium 2.2, Total Bilirubin 0.5, AST 23, ALT 24, Albumin 1.7 L, Hepatitis A IgM Ab Pending, Hep Bs Antigen NONREACTIVE, Hep B Core IgM Ab Conf Pending, Hepatitis C Antibody Pending 07/10/17 1520: Lactic Acid 3.3 H 07/10/17 1245: Urinalysis MOD H, Urine Color ORANG H, Urine Clarity CLDY H, Urine pH 5.0, Ur Specific [place] 1.025, Urine Protein 100 H, Urine Ketones TRACE H, Urine Nitrite NEG, Urine Bilirubin NEG@ICTO, Urine Urobilinogen 0.2, Ur Leukocyte Esterase NEG, Ur Microscopic SEDIMENT EXAMINED, Urine RBC >75 H, Urine WBC 1-3 H, Ur Epithelial Cells RARE, Urine Bacteria FEW H, Granular Casts RARE H, Urine Mucus FEW, Urine Hemoglobin LARGE H, Urine Glucose NEG 07/10/17 1245: Urine Osmolality 375, Ur Random Creatinine 141.8, Ur Random Sodium 38, Ur Random Potassium 46.3, Fraction Sodium Excret 0.7 07/10/17 1158: Anion Gap 13, Estimated GFR 16 L, Glucose 241 H, Lactic Acid 4.0 H, Calcium 6.5 L, Phosphorus 3.8, Magnesium 1.7, Total Bilirubin 0.5, AST 25, ALT 24, Albumin 1.8 L, PT 17.7 H, INR 1.69 H 07/10/17 1112: Ionized Calcium Pending 07/10/17 0845: Anion Gap 15, Estimated GFR 16 L, BUN/Creatinine Ratio 13.0, Lactic Acid 4.6 H , Phosphorus 3.8, Magnesium 1.8, Troponin I 0.07, TSH 2.210, Cortisol AM Sample 64.1 H 07/10/17 0555: pH 7.41, pCO2 27 L, pO2 93, HCO3 17 L, ABG O2 Sat (Measured) 97.0, P-50 (Temp Corrected) N, Carboxyhemoglobin 0.6 L, O2 Concentration % .40, Respiration Rate 16, O2 Delivery Method VENT, Vent Mode A/C, Expiratory Pressure 5, Tidal Volume 600, Phlebotomy Draw Site DEANA 07/10/17 0500: Lactic Acid 4.1 H 07/10/17 0500: Anion Gap 13, Estimated GFR 19 L, Glucose 268 H, Calcium 6.8 L, Phosphorus 3.7, Magnesium 1.8, Total Bilirubin 0.6, AST 22, ALT 27, Albumin 1.8 L, CBC w Diff MAN DIFF ORDERED, RBC 5.37, MCV 87.4, MCH 28.4, RDW 16.3 H, MPV 9.7, Gran % 60.5, Lymphocytes % 31.1, Monocytes % 7.9, Eosinophils % 0.1, Basophils % 0.4, Absolute Granulocytes 9.1 H, Segmented Neutrophils 26 L, Band Neutrophils 24 H, Absolute Lymphocytes 4.7 H, Lymphocytes 38, Monocytes 12 H, Absolute Monocytes 1.2 H, Absolute Eosinophils 0, Absolute Basophils 0.1, Platelet Estimate VERIFIED BY SMEAR, Poikilocytosis 1+, Anisocytosis 1+, Franc Cells 1+, PUBS MCHC 32.5 L 07/10/17 0230: 07/10/17 0230: Lactic Acid 4.4 H 07/10/17 0020: Anion Gap 15, Estimated GFR 24 L, Glucose 240 H, Calcium 7.1 L, Phosphorus 4.6 H, Magnesium 1.9, Total Bilirubin 0.8, AST 24, ALT 22, Troponin I 0.05, Albumin 2.2 L, CBC w Diff MAN DIFF ORDERED, RBC 5.76, MCV 87.4, MCH 28.3, RDW 15.9 H, MPV 9.2, Gran % 58.6, Lymphocytes % 34.9, Monocytes % 6.4, Eosinophils % 0, Basophils % 0.1, Absolute Granulocytes 8.3 H, Segmented Neutrophils 24 L, Band Neutrophils 17 H, Absolute Lymphocytes 4.9 H, Lymphocytes 53 H, Monocytes 5, Absolute Monocytes 0.9 H, Absolute Eosinophils 0, Absolute Basophils 0, Metamyelocytes 1, Platelet Estimate ADEQUATE, Normocytic RBCs VERIFIED, Normochromic RBCs VERIFIED, PUBS MCHC 32.3 L 07/09/17 2343: Lactic Acid 4.1 H 07/09/17 2250: pH 7.34 L, pCO2 25 L, pO2 124 H, HCO3 13 L, ABG O2 Sat (Measured) 97.0, P-50 (Temp Corrected) N, Carboxyhemoglobin 0.8 L, O2 Concentration % 50%, Temperature 99.6, Respiration Rate 16, O2 Delivery Method ESPRIT, Vent Mode AC, Expiratory Pressure 5, Tidal Volume 600, Phlebotomy Draw Site DIAMOND BAR 07/09/172199: Lactic Acid Cancelled 07/09/172003: Lactic Acid 4.3 H, Troponin I 0.05 07/09/172003: Anion Gap 15, Estimated GFR 29 L, Glucose 233 H, Calcium 7.1 L, Phosphorus 5.0 H, Magnesium 1.8, Total Bilirubin 0.7, AST 24, ALT 29, Albumin 2.2 L, CBC w Diff MAN DIFF ORDERED, RBC 5.63, MCV 87.9, MCH 28.3, RDW 16.1 H, Plt Count ND , MPV ND, Gran % 50.1, Lymphocytes % 40.2, Monocytes % 9.7 H, Eosinophils % 0, Basophils % 0, Absolute Granulocytes 6.8 H, Segmented Neutrophils 27 L, Band Neutrophils 23 H, Absolute Lymphocytes 5.4 H, Lymphocytes 39, Monocytes 7, Absolute Monocytes 1.3 H, Absolute Eosinophils 0, Absolute Basophils 0, Metamyelocytes 4 H, Platelet Estimate ADEQUATE, Anisocytosis 1+, PUBS MCHC 32.2 L, Fld Total RBCs Counted 100 07/09/17 1905: pH 7.22 *L, pCO2 38, pO2 118 H, HCO3 15 L, ABG O2 Sat (Measured) 96.0, P-50 ( Temp Corrected) N, Carboxyhemoglobin 1.0 L, O2 Concentration % 60, Temperature 98.1, Respiration Rate 16, O2 Delivery Method ESPRIT, Vent Mode AC, Expiratory Pressure 5, Tidal Volume 600, Phlebotomy Draw Site DEANA 07/09/17 1320: Lactic Acid 11.0 H 07/09/17 1320: Anion Gap 24 H, Estimated GFR 39 L, Glucose 312 H, Calcium 9.5, Phosphorus 4.1, Magnesium 1.9, Total Bilirubin 1.2, AST 26, ALT 19 L, Troponin I 0.03, Albumin 3.8, PT 14.5 H, INR 1.39 H, CBC w Diff MAN DIFF ORDERED, RBC 6.39 H, MCV 88.5, MCH 28.0, RDW 15.8 H, MPV 10.7 H, Gran % 61.7, Lymphocytes % 32.4, Monocytes % 5.6, Eosinophils % 0, Basophils % 0.3, Absolute Granulocytes 8.7 H, Segmented Neutrophils 31 L, Band Neutrophils 24 H, Absolute Lymphocytes 4.6 H , Lymphocytes 39, Monocytes 6, Absolute Monocytes 0.8 H, Absolute Eosinophils 0 , Absolute Basophils 0, Platelet Estimate VERIFIED BY SMEAR, Polychromasia 1+, Anisocytosis 1+, PUBS MCHC 31.6 L 07/09/17 1149: Troponin I Cancelled 07/09/17 1100: Lactic Acid Cancelled Recent Imaging Studies: CXR (07/11/2017): 1. Endotracheal tube remains approximately 5.5 cm above the kika. 2. Cardiomegaly. No acute cardiopulmonary findings compared to the prior CXR of 07/10/2017. Assessment/Plan Assessment/Plan [id number] w/ hx of morbid obesity, LIAM on CPAP, COPD, HTN, HLD, DM, CAD/ICM (s/ p IMI in 1998, CABG 4 w/ WHITE to LAD and individual SVGs to Dx, OM, PDA & MAZE) , and recurrent PAF who presented in an unkempt state via ambulance with a urinary tract infection and subsequently had a perforation of a duodenal ulcer for which he underwent surgery (Fabrizio patch) on 07/09/2017. He remains intubated and sedated. Blood pressure is presently borderline with him on a norepinephrine drip. Will notify electrophysiology (Von Nguyen M.D.) of patient's admission, ventricular tachycardia, defibrillator status, etc. If further ventricular tachycardia will place on amiodarone. Continue DVT prophylaxis. Continue telemetry? Not applicable (In ICU.)
--- NOTE | 2017-07-11 10:28 | PN- Infect Dx ---
Subjective Subjective: MAXIMUM TEMPERATURE 102.8. He remains on pressors though they are being tapered. He does not offer any complaints. Objective Last 24 Hrs of Vital Signs/I&O Vital Signs Date Time Temp Pulse Resp B/P B/P Pulse O2 O2 Flow FiO2 Mean Ox Delivery Rate 07/11 806 45 07/11 0637 81 25 106/52 07/11 0600 45 07/11 0400 95 Ventilator 45% 07/11 0303 45 07/11 0056 45 07/11 0000 99.8 89 25 92/56 96 Ventilator 45% 07/11 0000 96 Ventilator 45% 07/10 2227 45 07/10 2210 96 27 99/50 07/10 2000 96 Ventilator 45% 07/10 1939 98.8 07/10 1915 45 07/10 1807 102.8 07/10 1615 50 07/10 1600 94 Ventilator 45% 07/10 1600 99.2 102 25 100/58 94 Ventilator 45% 07/10 1500 50 07/10 1434 40 07/10 1200 96 Ventilator 40% 07/10 1200 99.1 102 28 92/60 96 Ventilator 40% 07/10 1125 40 Intake & Output 07/11 1600 07/11 0800 07/11 0000 Intake Total 1964 2180 Output Total 1477 1053 Balance 487 1127 Intake, IV 1964 2180 Output, 1060 790 Drainage Output, 0 50 Gastric Drainage Output, Urine 417 213 Patient 275 lb Weight Physical Exam Other Physical Findings: He is awake and alert on the ventilator in no acute distress Neck right IJ triple-lumen catheter with no inflammation at the site Lungs are clear Heart regular rhythm with no murmur Abdomen is distended, tender to palpation, particularly on the right, with positive bowel sounds; drain in place with bilious drainage Extremities bilateral superficial ulcerations over the anterior tibial aspects of both legs, with mild surrounding erythema, nontender to palpation [place] catheter remains in place Results Last 24 Hours of Lab Results: Laboratory Tests 07/1105 0400 Blood Gas pH (7.35 - 7.45 PH) 7.38 pCO2 (35 - 45 TORR) 30 L pO2 (80 - 100 TORR) 94 HCO3 (21 - 28 MEQ/L) 17 L ABG O2 Sat (Measured) (>96.0 %) 97.0 P-50 (Temp Corrected) N Carboxyhemoglobin (1.5 - 5.0 %) 0.3 L O2 Concentration % .45 Respiration Rate (BPM) 25 O2 Delivery Method VENT Vent Mode A/C Expiratory Pressure (CMH2O/P) 5 Tidal Volume (CC) 600 Chemistry Sodium (137 - 145 mmol/L) 144 Potassium (3.5 - 5.1 mmol/L) 4.2 Chloride (98 - 107 mmol/L) 115 H Carbon Dioxide (22 - 30 mmol/L) 16 L Anion Gap (5 - 16) 13 BUN (9 - 20 mg/dL) 60 H Creatinine (0.7 - 1.2 mg/dL) 4.2 H Estimated GFR (>60 ml/min) 14 L Glucose (65 - 99 mg/dL) 216 H Lactic Acid (0.7 - 2.1 mmol/L) 2.3 H Calcium (8.4 - 10.2 mg/dL) 6.7 L Phosphorus (2.5 - 4.5 mg/dL) 4.2 Magnesium (1.6 - 2.3 mg/dL) 2.2 Total Bilirubin (0.2 - 1.3 mg/dL) 0.5 AST (17 - 59 U/L) 20 ALT (21 - 72 U/L) 22 Albumin (3.5 - 5.0 g/dL) 1.7 L Coagulation PT (9.4 - 12.5 SEC) 16.0 H INR (0.90 - 1.17) 1.53 H Hematology CBC w Diff MAN DIFF ORDERED WBC (4.8 - 10.8 /CUMM) 14.8 H RBC (4.70 - 6.10 /CUMM) 4.47 L Hgb (14.0 - 18.0 G/DL) 12.7 L Hct (42 - 52 %) 39.0 L MCV (80.0 - 94.0 FL) 87.3 MCH (27.0 - 31.0 PG) 28.3 RDW (11.5 - 14.5 %) 16.6 H Plt Count (130 - 400 /CUMM) 184 MPV (7.4 - 10.4 FL) 8.9 Gran % (42.2 - 75.2 %) 67.5 Lymphocytes % (20.5 - 51.1 %) 25.5 Monocytes % (1.7 - 9.3 %) 6.5 Eosinophils % (0 - 5 %) 0.1 Basophils % (0.0 - 2.0 %) 0.4 Absolute Granulocytes (1.4 - 6.5 /CUMM) 10.0 H Segmented Neutrophils (42.2 - 75.2 %) 68 Band Neutrophils (0.0 - 5.0 %) 5 Absolute Lymphocytes (1.2 - 3.4 /CUMM) 3.8 H Lymphocytes (20.5 - 51.1 %) 26 Monocytes (1.7 - 9.3 %) 1 L Absolute Monocytes (0.10 - 0.60 /CUMM) 1.0 H Absolute Eosinophils (0.0 - 0.7 /CUMM) 0 Absolute Basophils (0.0 - 0.2 /CUMM) 0.1 Platelet Estimate (ADEQUATE) ADEQUATE Normocytic RBCs VERIFIED Normochromic RBCs VERIFIED PUBS MCHC (33.0 - 37.0 G/DL) 32.4 L Miscellaneous Phlebotomy Draw Site LEFT BRACHIAL 07/10 07/10 07/10 07/10 2120 1905 1820 1520 Blood Gas pH (7.35 - 7.45 PH) 7.39 pCO2 (35 - 45 TORR) 29 L pO2 (80 - 100 TORR) 86 HCO3 (21 - 28 MEQ/L) 17 L ABG O2 Sat (Measured) (>96.0 %) 96.0 P-50 (Temp Corrected) N Carboxyhemoglobin (1.5 - 5.0 %) 0.6 L O2 Concentration % 45% Temperature (97.0 - 100.0 FARH) 99.0 Respiration Rate (BPM) 25 O2 Delivery Method ESPRIT Vent Mode AC Expiratory Pressure (CMH2O/P) 5 Tidal Volume (CC) 600 Chemistry Sodium (137 - 145 mmol/L) 142 Potassium (3.5 - 5.1 mmol/L) 4.4 Chloride (98 - 107 mmol/L) 114 H Carbon Dioxide (22 - 30 mmol/L) 16 L Anion Gap (5 - 16) 13 BUN (9 - 20 mg/dL) 54 H Creatinine (0.7 - 1.2 mg/dL) 4.0 H Estimated GFR (>60 ml/min) 15 L Glucose (65 - 99 mg/dL) 258 H Lactic Acid (0.7 - 2.1 mmol/L) 2.9 H 3.3 H 3.3 H Calcium (8.4 - 10.2 mg/dL) 6.3 L Phosphorus (2.5 - 4.5 mg/dL) 4.0 Magnesium (1.6 - 2.3 mg/dL) 2.2 Total Bilirubin (0.2 - 1.3 mg/dL) 0.5 AST (17 - 59 U/L) 23 ALT (21 - 72 U/L) 24 Albumin (3.5 - 5.0 g/dL) 1.7 L Miscellaneous Phlebotomy Draw Site LEFT BRACHIAL Serology Hepatitis A IgM Ab (NONREACTIVE) Pending Hep Bs Antigen (NONREACTIVE) NONREACTIVE Hep B Core IgM Ab Conf (NONREACTIVE) Pending Hepatitis C Antibody (NONREACTIVE) Pending 07/10 07/10 07/10 1245 1245 1158 Chemistry Sodium (137 - 145 mmol/L) 143 Potassium (3.5 - 5.1 mmol/L) 4.4 Chloride (98 - 107 mmol/L) 113 H Carbon Dioxide (22 - 30 mmol/L) 16 L Anion Gap (5 - 16) 13 BUN (9 - 20 mg/dL) 50 H Creatinine (0.7 - 1.2 mg/dL) 3.7 H Estimated GFR (>60 ml/min) 16 L Glucose (65 - 99 mg/dL) 241 H Lactic Acid (0.7 - 2.1 mmol/L) 4.0 H Calcium (8.4 - 10.2 mg/dL) 6.5 L Phosphorus (2.5 - 4.5 mg/dL) 3.8 Magnesium (1.6 - 2.3 mg/dL) 1.7 Total Bilirubin (0.2 - 1.3 mg/dL) 0.5 AST (17 - 59 U/L) 25 ALT (21 - 72 U/L) 24 Albumin (3.5 - 5.0 g/dL) 1.8 L Coagulation PT (9.4 - 12.5 SEC) 17.7 H INR (0.90 - 1.17) 1.69 H Urines Urinalysis MOD H Urine Color (YEL,AMB,STR) ORANG H Urine Clarity (CLEAR) CLDY H Urine pH (5.0 - 8.0) 5.0 Ur Specific [place] (1.001 - 1.035) 1.025 Urine Protein (NEG,<30 MG/DL) 100 H Urine Ketones (NEG) TRACE H Urine Nitrite (NEG) NEG Urine Bilirubin (NEG) NEG@ICTO Urine Urobilinogen (0.1 - 1.0 EU/dl) 0.2 Ur Leukocyte Esterase (NEG) NEG Ur Microscopic SEDIMENT EXAMINED Urine RBC (0 - 5 /HPF) >75 H Urine WBC (0 - 2 /HPF) 1-3 H Ur Epithelial Cells (NONE,FEW) RARE Urine Bacteria (NEG/NONE) FEW H Granular Casts (NONE /LPF) RARE H Urine Mucus (FEW,NONE) FEW Urine Hemoglobin (NEG) LARGE H Urine Osmolality (300 - 1000 MOSM/KG) 375 Ur Random Creatinine (mg/dL) 141.8 Ur Random Sodium (30 - 90 mmol/L) 38 Ur Random Potassium (mmol/L) 46.3 Fraction Sodium Excret (<1% %) 0.7 Urine Glucose (N MG/DL) NEG 07/10 1112 Chemistry Ionized Calcium Pending Last 24 Hours of Les Results: Blood cultures July 08 negative Blood cultures July 09 negative OR culture labeled peritoneal fluid July 09 negative, with gram stain revealing rare white blood cells and rare gram-positive cocci Sputum culture July 10 pending, with gram stain revealing moderate white blood cells and no organisms Recent Imaging Studies: Chest x-ray July 11, personally reviewed, reveals no acute process Assessment/Plan Impression: Condition overall poor, with worsening renal failure, though this appears to be plateauing, and with decreasing pressor requirements now 2 days status post exploratory laparotomy and Fabrizio patch for a perforated duodenal ulcer, with his OR culture so far negative. He was again febrile last night and his white blood cell count remains elevated, though with decreased bands, on Meropenem pending final cultures. His urine culture did grow 20,000 colonies of a sensitive Escherichia coli and, if his OR cultures remain negative, his antibiotics should be able to be adjusted. Suggestion: 1. Follow-up final OR culture 2. Increase Meropenem to 1 g IV every 12 hours pending above
[2017-07-11 12:00] VITALS: BP 102/54
--- NOTE | 2017-07-11 14:43 | PN- General Surgery ---
Surgical Brief Attending Note Brief Attending Note: Overall improved with return of urine output and stablization of renal failure. Fevers from peritonitis. cultures negative thus far. Weaning off levophed. In regards to drain output, it is tough to know if there is peristent duodenal leak or if output is from severe contamination of retroperitoneal tissues where drain resides. Larger bulb placed today. Will observe for now. For now it appears the larger bulb appears to control the output better.
--- NOTE | 2017-07-11 15:27 | PN- Nephrology ---
Assessment/Plan Assessment: 1. Acute kidney injury secondary to shock and abdominal sepsis, now nonoliguric. Serum creatinine appears to be leveling off as his hemodynamics have improved. Low fractional excretion of sodium suggests primarily a prerenal process which is also supported by the finding of a low, albeit improved, CVP and hemoconcentration, also improved with hemoglobin down from 17.9 to 12.7. There is still ongoing fluid loss through his WILLEM drain. 2. Status post patch repair of perforated duodenal ulcer with associated peritonitis Suggestion: 1. Agree with decrease in IV fluids but would not hesitate to increase again if renal function continues to worsen, CVP remains low and urine output marginal 2. Will avoid adding bicarbonate to his therapy for now because of his recent profound lactic acidosis 3. Antibiotic therapy per ID Subjective Subjective: Remains intubated and vented, opens eyes and responds to simple commands. Off of pressors now. Temperature 99.5, Tmax 102.4. I/O 9645/2721 (urine 376). Blood and abdominal fluid cultures no growth. WBC 14.8. Creatinine 4.2 (4.0), potassium 4.2, CO2 16, lactic acid 2.3. Objective Vital Signs and I&Os Vital Signs Date Time Temp Pulse Resp B/P B/P Pulse O2 O2 Flow FiO2 Mean Ox Delivery Rate 07/11 1453 74 96/50 07/11 1411 45 07/11 1200 95 Ventilator 45% 07/11 1200 99.5 84 33 102/54 95 Ventilator 45% 07/11 1040 45 07/11 0806 45 07/11 0800 96 Ventilator 45% 07/11 0800 100.1 76 25 100/62 96 Ventilator 45% 07/11 0637 81 25 106/52 07/11 0600 45 07/11 0400 95 Ventilator 45% 07/11 0303 45 07/11 0056 45 07/11 0000 99.8 89 25 92/56 96 Ventilator 45% 07/11 0000 96 Ventilator 45% 07/10 2227 45 07/10 2210 96 27 99/50 07/10 2000 96 Ventilator 45% 07/10 1939 98.8 07/10 1915 45 07/10 1807 102.8 07/10 1615 50 07/10 1600 94 Ventilator 45% 07/10 1600 99.2 102 25 100/58 94 Ventilator 45% Intake & Output 11/07/11 04007/10 04007/09 1600 07/09 0400 Intake Total 3989 2180 7465.3 3590 1520 1560 Output Total 2847 1053 1668 467 760 950 Balance 1142 1127 5797.3 3123 760 610 Intake, IV 3989 2180 7465.3 3590 1520 1510 Intake, Oral 0 0 50 Intake, Other 0 Number 0 Bowel Movements Output, 2940 888 3667 230 Drainage Output, 0 50 300 200 Gastric Drainage Output, Other 920 Output, Urine 867 213 163 37 760 950 Patient 275 lb 277 lb 266 lb 257 lb Weight Weight Bed scale Bed scale Reported by Patient Measurement Method Physical Exam: General: Well-developed, obese white male, intubated, ventilated Skin: No rash or jaundice HEENT: Conjunctivae pink, sclerae anicteric Neck: Intubated, without masses or adenopathy Chest: Clear anterolaterally Heart: Regular rate and rhythm without S3 or rub, heart sounds distant Abdomen: Obese, soft, tender, without palpable masses Extremities: Positive edema without cyanosis, chronic lower extremity skin changes, dressings intact Neuro: Arousable, follows simple commands, no focal findings, no asterixis or myoclonus Results Pertinent Lab Results: Laboratory Tests 07/11 07/11 1104 0605 Blood Gas pH (7.35 - 7.45 PH) 7.38 pCO2 (35 - 45 TORR) 30 L pO2 (80 - 100 TORR) 94 HCO3 (21 - 28 MEQ/L) 17 L ABG O2 Sat (Measured) (>96.0 %) 97.0 P-50 (Temp Corrected) N Carboxyhemoglobin (1.5 - 5.0 %) 0.3 L O2 Concentration % .45 Respiration Rate (BPM) 25 O2 Delivery Method VENT Vent Mode A/C Expiratory Pressure (CMH2O/P) 5 Tidal Volume (CC) 600 Miscellaneous Phlebotomy Draw Site LEFT BRACHIAL Urines Urinalysis HEAVY H Urine Color (YEL,AMB,STR) YEL Urine Clarity (CLEAR) HAZY H Urine pH (5.0 - 8.0) 5.5 Ur Specific Combs (1.001 - 1.035) 1.025 Urine Protein (NEG,<30 MG/DL) TRACE H Urine Ketones (NEG) NEG Urine Nitrite (NEG) NEG Urine Bilirubin (NEG) NEG Urine Urobilinogen (0.1 - 1.0 EU/dl) 0.2 Ur Leukocyte Esterase (NEG) NEG Ur Microscopic SEDIMENT EXAMINED Urine RBC (0 - 5 /HPF) 25-50 H Urine WBC (0 - 2 /HPF) 3-5 H Ur Epithelial Cells (NONE,FEW) RARE Urine Bacteria (NEG/NONE) MOD H Granular Casts (NONE /LPF) 1-3 H Urine Hemoglobin (NEG) LARGE H Urine Glucose (N MG/DL) 250 H 07/11 07/10 0400 2120 Chemistry Sodium (137 - 145 mmol/L) 144 Potassium (3.5 - 5.1 mmol/L) 4.2 Chloride (98 - 107 mmol/L) 115 H Carbon Dioxide (22 - 30 mmol/L) 16 L Anion Gap (5 - 16) 13 BUN (9 - 20 mg/dL) 60 H Creatinine (0.7 - 1.2 mg/dL) 4.2 H Estimated GFR (>60 ml/min) 14 L Glucose (65 - 99 mg/dL) 216 H Lactic Acid (0.7 - 2.1 mmol/L) 2.3 H 2.9 H Calcium (8.4 - 10.2 mg/dL) 6.7 L Phosphorus (2.5 - 4.5 mg/dL) 4.2 Magnesium (1.6 - 2.3 mg/dL) 2.2 Total Bilirubin (0.2 - 1.3 mg/dL) 0.5 AST (17 - 59 U/L) 20 ALT (21 - 72 U/L) 22 Albumin (3.5 - 5.0 g/dL) 1.7 L Coagulation PT (9.4 - 12.5 SEC) 16.0 H INR (0.90 - 1.17) 1.53 H Hematology CBC w Diff MAN DIFF ORDERED WBC (4.8 - 10.8 /CUMM) 14.8 H RBC (4.70 - 6.10 /CUMM) 4.47 L Hgb (14.0 - 18.0 G/DL) 12.7 L Hct (42 - 52 %) 39.0 L MCV (80.0 - 94.0 FL) 87.3 MCH (27.0 - 31.0 PG) 28.3 RDW (11.5 - 14.5 %) 16.6 H Plt Count (130 - 400 /CUMM) 184 MPV (7.4 - 10.4 FL) 8.9 Gran % (42.2 - 75.2 %) 67.5 Lymphocytes % (20.5 - 51.1 %) 25.5 Monocytes % (1.7 - 9.3 %) 6.5 Eosinophils % (0 - 5 %) 0.1 Basophils % (0.0 - 2.0 %) 0.4 Absolute Granulocytes (1.4 - 6.5 /CUMM) 10.0 H Segmented Neutrophils (42.2 - 75.2 %) 68 Band Neutrophils (0.0 - 5.0 %) 5 Absolute Lymphocytes (1.2 - 3.4 /CUMM) 3.8 H Lymphocytes (20.5 - 51.1 %) 26 Monocytes (1.7 - 9.3 %) 1 L Absolute Monocytes (0.10 - 0.60 /CUMM) 1.0 H Absolute Eosinophils (0.0 - 0.7 /CUMM) 0 Absolute Basophils (0.0 - 0.2 /CUMM) 0.1 Platelet Estimate (ADEQUATE) ADEQUATE Normocytic RBCs VERIFIED Normochromic RBCs VERIFIED PUBS MCHC (33.0 - 37.0 G/DL) 32.4 L 07/10 07/10 07/10 1905 1820 1520 Blood Gas pH (7.35 - 7.45 PH) 7.39 pCO2 (35 - 45 TORR) 29 L pO2 (80 - 100 TORR) 86 HCO3 (21 - 28 MEQ/L) 17 L ABG O2 Sat (Measured) (>96.0 %) 96.0 P-50 (Temp Corrected) N Carboxyhemoglobin (1.5 - 5.0 %) 0.6 L O2 Concentration % 45% Temperature (97.0 - 100.0 FARH) 99.0 Respiration Rate (BPM) 25 O2 Delivery Method ESPRIT Vent Mode AC Expiratory Pressure (CMH2O/P) 5 Tidal Volume (CC) 600 Chemistry Sodium (137 - 145 mmol/L) 142 Potassium (3.5 - 5.1 mmol/L) 4.4 Chloride (98 - 107 mmol/L) 114 H Carbon Dioxide (22 - 30 mmol/L) 16 L Anion Gap (5 - 16) 13 BUN (9 - 20 mg/dL) 54 H Creatinine (0.7 - 1.2 mg/dL) 4.0 H Estimated GFR (>60 ml/min) 15 L Glucose (65 - 99 mg/dL) 258 H Lactic Acid (0.7 - 2.1 mmol/L) 3.3 H 3.3 H Calcium (8.4 - 10.2 mg/dL) 6.3 L Phosphorus (2.5 - 4.5 mg/dL) 4.0 Magnesium (1.6 - 2.3 mg/dL) 2.2 Total Bilirubin (0.2 - 1.3 mg/dL) 0.5 AST (17 - 59 U/L) 23 ALT (21 - 72 U/L) 24 Albumin (3.5 - 5.0 g/dL) 1.7 L Miscellaneous Phlebotomy Draw Site LEFT BRACHIAL Serology Hepatitis A IgM Ab (NONREACTIVE) NONREACTIVE Hep Bs Antigen (NONREACTIVE) NONREACTIVE Hep B Core IgM Ab Conf (NONREACTIVE) NONREACTIVE Hepatitis C Antibody (NONREACTIVE) NONREACTIVE 07/10 07/10 07/10 1245 1245 1158 Chemistry Sodium (137 - 145 mmol/L) 143 Potassium (3.5 - 5.1 mmol/L) 4.4 Chloride (98 - 107 mmol/L) 113 H Carbon Dioxide (22 - 30 mmol/L) 16 L Anion Gap (5 - 16) 13 BUN (9 - 20 mg/dL) 50 H Creatinine (0.7 - 1.2 mg/dL) 3.7 H Estimated GFR (>60 ml/min) 16 L Glucose (65 - 99 mg/dL) 241 H Lactic Acid (0.7 - 2.1 mmol/L) 4.0 H Calcium (8.4 - 10.2 mg/dL) 6.5 L Phosphorus (2.5 - 4.5 mg/dL) 3.8 Magnesium (1.6 - 2.3 mg/dL) 1.7 Total Bilirubin (0.2 - 1.3 mg/dL) 0.5 AST (17 - 59 U/L) 25 ALT (21 - 72 U/L) 24 Albumin (3.5 - 5.0 g/dL) 1.8 L Coagulation PT (9.4 - 12.5 SEC) 17.7 H INR (0.90 - 1.17) 1.69 H Urines Urinalysis MOD H Urine Color (YEL,AMB,STR) ORANG H Urine Clarity (CLEAR) CLDY H Urine pH (5.0 - 8.0) 5.0 Ur Specific Combs (1.001 - 1.035) 1.025 Urine Protein (NEG,<30 MG/DL) 100 H Urine Ketones (NEG) TRACE H Urine Nitrite (NEG) NEG Urine Bilirubin (NEG) NEG@ICTO Urine Urobilinogen (0.1 - 1.0 EU/dl) 0.2 Ur Leukocyte Esterase (NEG) NEG Ur Microscopic SEDIMENT EXAMINED Urine RBC (0 - 5 /HPF) >75 H Urine WBC (0 - 2 /HPF) 1-3 H Ur Epithelial Cells (NONE,FEW) RARE Urine Bacteria (NEG/NONE) FEW H Granular Casts (NONE /LPF) RARE H Urine Mucus (FEW,NONE) FEW Urine Hemoglobin (NEG) LARGE H Urine Osmolality (300 - 1000 MOSM/KG) 375 Ur Random Creatinine (mg/dL) 141.8 Ur Random Sodium (30 - 90 mmol/L) 38 Ur Random Potassium (mmol/L) 46.3 Fraction Sodium Excret (<1% %) 0.7 Urine Glucose (N MG/DL) NEG 07/10 07/10 07/10 07/10 1112 0845 0555 0500 Blood Gas pH (7.35 - 7.45 PH) 7.41 pCO2 (35 - 45 TORR) 27 L pO2 (80 - 100 TORR) 93 HCO3 (21 - 28 MEQ/L) 17 L ABG O2 Sat (Measured) (>96.0 %) 97.0 P-50 (Temp Corrected) N Carboxyhemoglobin (1.5 - 5.0 %) 0.6 L O2 Concentration % .40 Respiration Rate (BPM) 16 O2 Delivery Method VENT Vent Mode A/C Expiratory Pressure (CMH2O/P) 5 Tidal Volume (CC) 600 Chemistry Sodium (137 - 145 mmol/L) 142 Potassium (3.5 - 5.1 mmol/L) 4.9 Chloride (98 - 107 mmol/L) 110 H Carbon Dioxide (22 - 30 mmol/L) 17 L Anion Gap (5 - 16) 15 BUN (9 - 20 mg/dL) 48 H Creatinine (0.7 - 1.2 mg/dL) 3.7 H Estimated GFR (>60 ml/min) 16 L BUN/Creatinine Ratio (7 - 25 %) 13.0 Lactic Acid (0.7 - 2.1 mmol/L) 4.6 H 4.1 H Ionized Calcium Pending Phosphorus (2.5 - 4.5 mg/dL) 3.8 Magnesium (1.6 - 2.3 mg/dL) 1.8 Troponin I (<0.11 ng/ml) 0.07 TSH (0.270 - 4.200 uIU/mL) 2.210 Cortisol AM Sample (4.46 - 22.7 ug/dL) 64.1 H Miscellaneous Phlebotomy Draw Site [place] 07/10 07/10 07/10 0500 0230 0230 Chemistry Sodium (137 - 145 mmol/L) 141 Potassium (3.5 - 5.1 mmol/L) 4.8 5.0 Chloride (98 - 107 mmol/L) 114 H Carbon Dioxide (22 - 30 mmol/L) 14 L Anion Gap (5 - 16) 13 BUN (9 - 20 mg/dL) 45 H Creatinine (0.7 - 1.2 mg/dL) 3.2 H Estimated GFR (>60 ml/min) 19 L Glucose (65 - 99 mg/dL) 268 H Lactic Acid (0.7 - 2.1 mmol/L) 4.4 H Calcium (8.4 - 10.2 mg/dL) 6.8 L Phosphorus (2.5 - 4.5 mg/dL) 3.7 Magnesium (1.6 - 2.3 mg/dL) 1.8 Total Bilirubin (0.2 - 1.3 mg/dL) 0.6 AST (17 - 59 U/L) 22 ALT (21 - 72 U/L) 27 Albumin (3.5 - 5.0 g/dL) 1.8 L Hematology CBC w Diff MAN DIFF ORDERED WBC (4.8 - 10.8 /CUMM) 15.1 H RBC (4.70 - 6.10 /CUMM) 5.37 Hgb (14.0 - 18.0 G/DL) 15.2 Hct (42 - 52 %) 47.0 MCV (80.0 - 94.0 FL) 87.4 MCH (27.0 - 31.0 PG) 28.4 RDW (11.5 - 14.5 %) 16.3 H Plt Count (130 - 400 /CUMM) 199 MPV (7.4 - 10.4 FL) 9.7 Gran % (42.2 - 75.2 %) 60.5 Lymphocytes % (20.5 - 51.1 %) 31.1 Monocytes % (1.7 - 9.3 %) 7.9 Eosinophils % (0 - 5 %) 0.1 Basophils % (0.0 - 2.0 %) 0.4 Absolute Granulocytes (1.4 - 6.5 /CUMM) 9.1 H Segmented Neutrophils (42.2 - 75.2 %) 26 L Band Neutrophils (0.0 - 5.0 %) 24 H Absolute Lymphocytes (1.2 - 3.4 /CUMM) 4.7 H Lymphocytes (20.5 - 51.1 %) 38 Monocytes (1.7 - 9.3 %) 12 H Absolute Monocytes (0.10 - 0.60 /CUMM) 1.2 H Absolute Eosinophils (0.0 - 0.7 /CUMM) 0 Absolute Basophils (0.0 - 0.2 /CUMM) 0.1 Platelet Estimate (ADEQUATE) VERIFIED BY SMEAR Poikilocytosis 1+ Anisocytosis 1+ Franc Cells 1+ PUBS MCHC (33.0 - 37.0 G/DL) 32.5 L 07/10 07/09 07/09 0020 2343 2250 Blood Gas pH (7.35 - 7.45 PH) 7.34 L pCO2 (35 - 45 TORR) 25 L pO2 (80 - 100 TORR) 124 H HCO3 (21 - 28 MEQ/L) 13 L ABG O2 Sat (Measured) (>96.0 %) 97.0 P-50 (Temp Corrected) N Carboxyhemoglobin (1.5 - 5.0 %) 0.8 L O2 Concentration % 50% Temperature (97.0 - 100.0 FARH) 99.6 Respiration Rate (BPM) 16 O2 Delivery Method ESPRIT Vent Mode AC Expiratory Pressure (CMH2O/P) 5 Tidal Volume (CC) 600 Chemistry Sodium (137 - 145 mmol/L) 141 Potassium (3.5 - 5.1 mmol/L) 5.5 H Chloride (98 - 107 mmol/L) 113 H Carbon Dioxide (22 - 30 mmol/L) 13 L Anion Gap (5 - 16) 15 BUN (9 - 20 mg/dL) 42 H Creatinine (0.7 - 1.2 mg/dL) 2.6 H Estimated GFR (>60 ml/min) 24 L Glucose (65 - 99 mg/dL) 240 H Lactic Acid (0.7 - 2.1 mmol/L) 4.1 H Calcium (8.4 - 10.2 mg/dL) 7.1 L Phosphorus (2.5 - 4.5 mg/dL) 4.6 H Magnesium (1.6 - 2.3 mg/dL) 1.9 Total Bilirubin (0.2 - 1.3 mg/dL) 0.8 AST (17 - 59 U/L) 24 ALT (21 - 72 U/L) 22 Troponin I (<0.11 ng/ml) 0.05 Albumin (3.5 - 5.0 g/dL) 2.2 L Hematology CBC w Diff MAN DIFF ORDERED WBC (4.8 - 10.8 /CUMM) 14.1 H RBC (4.70 - 6.10 /CUMM) 5.76 Hgb (14.0 - 18.0 G/DL) 16.3 Hct (42 - 52 %) 50.3 MCV (80.0 - 94.0 FL) 87.4 MCH (27.0 - 31.0 PG) 28.3 RDW (11.5 - 14.5 %) 15.9 H Plt Count (130 - 400 /CUMM) 202 MPV (7.4 - 10.4 FL) 9.2 Gran % (42.2 - 75.2 %) 58.6 Lymphocytes % (20.5 - 51.1 %) 34.9 Monocytes % (1.7 - 9.3 %) 6.4 Eosinophils % (0 - 5 %) 0 Basophils % (0.0 - 2.0 %) 0.1 Absolute Granulocytes (1.4 - 6.5 /CUMM) 8.3 H Segmented Neutrophils (42.2 - 75.2 %) 24 L Band Neutrophils (0.0 - 5.0 %) 17 H Absolute Lymphocytes (1.2 - 3.4 /CUMM) 4.9 H Lymphocytes (20.5 - 51.1 %) 53 H Monocytes (1.7 - 9.3 %) 5 Absolute Monocytes (0.10 - 0.60 /CUMM) 0.9 H Absolute Eosinophils (0.0 - 0.7 /CUMM) 0 Absolute Basophils (0.0 - 0.2 /CUMM) 0 Metamyelocytes (0.0 - 1.0 %) 1 Platelet Estimate (ADEQUATE) ADEQUATE Normocytic RBCs VERIFIED Normochromic RBCs VERIFIED PUBS MCHC (33.0 - 37.0 G/DL) 32.3 L Miscellaneous Phlebotomy Draw Site DEANA 07/09 Chemistry Sodium (137 - 145 mmol/L) 141 Potassium (3.5 - 5.1 mmol/L) 5.0 Chloride (98 - 107 mmol/L) 112 H Carbon Dioxide (22 - 30 mmol/L) 14 L Anion Gap (5 - 16) 15 BUN (9 - 20 mg/dL) 36 H Creatinine (0.7 - 1.2 mg/dL) 2.2 H Estimated GFR (>60 ml/min) 29 L Glucose (65 - 99 mg/dL) 233 H Lactic Acid (0.7 - 2.1 mmol/L) Cancelled 4.3 H Calcium (8.4 - 10.2 mg/dL) 7.1 L Phosphorus (2.5 - 4.5 mg/dL) 5.0 H Magnesium (1.6 - 2.3 mg/dL) 1.8 Total Bilirubin (0.2 - 1.3 mg/dL) 0.7 AST (17 - 59 U/L) 24 ALT (21 - 72 U/L) 29 Troponin I (<0.11 ng/ml) 0.05 Albumin (3.5 - 5.0 g/dL) 2.2 L Hematology CBC w Diff MAN DIFF ORDERED WBC (4.8 - 10.8 /CUMM) 13.5 H RBC (4.70 - 6.10 /CUMM) 5.63 Hgb (14.0 - 18.0 G/DL) 15.9 Hct (42 - 52 %) 49.5 MCV (80.0 - 94.0 FL) 87.9 MCH (27.0 - 31.0 PG) 28.3 RDW (11.5 - 14.5 %) 16.1 H Plt Count (130 - 400 /CUMM) ND MPV (7.4 - 10.4 FL) ND Gran % (42.2 - 75.2 %) 50.1 Lymphocytes % (20.5 - 51.1 %) 40.2 Monocytes % (1.7 - 9.3 %) 9.7 H Eosinophils % (0 - 5 %) 0 Basophils % (0.0 - 2.0 %) 0 Absolute Granulocytes (1.4 - 6.5 /CUMM) 6.8 H Segmented Neutrophils (42.2 - 75.2 %) 27 L Band Neutrophils (0.0 - 5.0 %) 23 H Absolute Lymphocytes (1.2 - 3.4 /CUMM) 5.4 H Lymphocytes (20.5 - 51.1 %) 39 Monocytes (1.7 - 9.3 %) 7 Absolute Monocytes (0.10 - 0.60 /CUMM) 1.3 H Absolute Eosinophils (0.0 - 0.7 /CUMM) 0 Absolute Basophils (0.0 - 0.2 /CUMM) 0 Metamyelocytes (0.0 - 1.0 %) 4 H Platelet Estimate (ADEQUATE) ADEQUATE Anisocytosis 1+ PUBS MCHC (33.0 - 37.0 G/DL) 32.2 L Other Body Source Fld Total RBCs Counted (%) 100 07/09 07/09 07/09 1905 1320 1320 Blood Gas pH (7.35 - 7.45 PH) 7.22 *L pCO2 (35 - 45 TORR) 38 pO2 (80 - 100 TORR) 118 H HCO3 (21 - 28 MEQ/L) 15 L ABG O2 Sat (Measured) (>96.0 %) 96.0 P-50 (Temp Corrected) N Carboxyhemoglobin (1.5 - 5.0 %) 1.0 L O2 Concentration % 60 Temperature (97.0 - 100.0 FARH) 98.1 Respiration Rate (BPM) 16 O2 Delivery Method ESPRIT Vent Mode AC Expiratory Pressure (CMH2O/P) 5 Tidal Volume (CC) 600 Chemistry Sodium (137 - 145 mmol/L) 143 Potassium (3.5 - 5.1 mmol/L) 4.6 Chloride (98 - 107 mmol/L) 107 Carbon Dioxide (22 - 30 mmol/L) 12 L Anion Gap (5 - 16) 24 H BUN (9 - 20 mg/dL) 27 H Creatinine (0.7 - 1.2 mg/dL) 1.7 H Estimated GFR (>60 ml/min) 39 L Glucose (65 - 99 mg/dL) 312 H Lactic Acid (0.7 - 2.1 mmol/L) 11.0 H Calcium (8.4 - 10.2 mg/dL) 9.5 Phosphorus (2.5 - 4.5 mg/dL) 4.1 Magnesium (1.6 - 2.3 mg/dL) 1.9 Total Bilirubin (0.2 - 1.3 mg/dL) 1.2 AST (17 - 59 U/L) 26 ALT (21 - 72 U/L) 19 L Troponin I (<0.11 ng/ml) 0.03 Albumin (3.5 - 5.0 g/dL) 3.8 Coagulation PT (9.4 - 12.5 SEC) 14.5 H INR (0.90 - 1.17) 1.39 H Hematology CBC w Diff MAN DIFF ORDERED WBC (4.8 - 10.8 /CUMM) 14.2 H RBC (4.70 - 6.10 /CUMM) 6.39 H Hgb (14.0 - 18.0 G/DL) 17.9 Hct (42 - 52 %) 56.5 H MCV (80.0 - 94.0 FL) 88.5 MCH (27.0 - 31.0 PG) 28.0 RDW (11.5 - 14.5 %) 15.8 H Plt Count (130 - 400 /CUMM) 200 MPV (7.4 - 10.4 FL) 10.7 H Gran % (42.2 - 75.2 %) 61.7 Lymphocytes % (20.5 - 51.1 %) 32.4 Monocytes % (1.7 - 9.3 %) 5.6 Eosinophils % (0 - 5 %) 0 Basophils % (0.0 - 2.0 %) 0.3 Absolute Granulocytes (1.4 - 6.5 /CUMM) 8.7 H Segmented Neutrophils (42.2 - 75.2 %) 31 L Band Neutrophils (0.0 - 5.0 %) 24 H Absolute Lymphocytes (1.2 - 3.4 /CUMM) 4.6 H Lymphocytes (20.5 - 51.1 %) 39 Monocytes (1.7 - 9.3 %) 6 Absolute Monocytes (0.10 - 0.60 /CUMM) 0.8 H Absolute Eosinophils (0.0 - 0.7 /CUMM) 0 Absolute Basophils (0.0 - 0.2 /CUMM) 0 Platelet Estimate (ADEQUATE) VERIFIED BY SMEAR Polychromasia 1+ Anisocytosis 1+ PUBS MCHC (33.0 - 37.0 G/DL) 31.6 L Miscellaneous Phlebotomy Draw Site DEANA 07/09 07/09 07/09 1149 1100 0733 Chemistry Lactic Acid (0.7 - 2.1 mmol/L) Cancelled 6.8 H Troponin I Cancelled 07/09 07/09 07/09 0733 0515 0045 Chemistry Sodium (137 - 145 mmol/L) 144 Potassium (3.5 - 5.1 mmol/L) 4.4 Chloride (98 - 107 mmol/L) 106 Carbon Dioxide (22 - 30 mmol/L) 16 L Anion Gap (5 - 16) 22 H BUN (9 - 20 mg/dL) 22 H Creatinine (0.7 - 1.2 mg/dL) 1.0 Estimated GFR (>60 ml/min) > 60 BUN/Creatinine Ratio (7 - 25 %) 22.0 Lactic Acid (0.7 - 2.1 mmol/L) 3.4 H Troponin I (<0.11 ng/ml) < 0.01 Hematology CBC w Diff MAN DIFF ORDERED WBC (4.8 - 10.8 /CUMM) 14.0 H RBC (4.70 - 6.10 /CUMM) 5.55 Hgb (14.0 - 18.0 G/DL) 16.1 Hct (42 - 52 %) 48.9 MCV (80.0 - 94.0 FL) 88.0 MCH (27.0 - 31.0 PG) 29.0 RDW (11.5 - 14.5 %) 16.0 H Plt Count (130 - 400 /CUMM) 178 MPV (7.4 - 10.4 FL) 10.0 Gran % (42.2 - 75.2 %) 67.9 Lymphocytes % (20.5 - 51.1 %) 26.5 Monocytes % (1.7 - 9.3 %) 5.4 Eosinophils % (0 - 5 %) 0 Basophils % (0.0 - 2.0 %) 0.2 Absolute Granulocytes (1.4 - 6.5 /CUMM) 9.5 H Segmented Neutrophils (42.2 - 75.2 %) 47 Band Neutrophils (0.0 - 5.0 %) 24 H Absolute Lymphocytes (1.2 - 3.4 /CUMM) 3.7 H Lymphocytes (20.5 - 51.1 %) 24 Monocytes (1.7 - 9.3 %) 5 Absolute Monocytes (0.10 - 0.60 /CUMM) 0.8 H Absolute Eosinophils (0.0 - 0.7 /CUMM) 0 Absolute Basophils (0.0 - 0.2 /CUMM) 0 Platelet Estimate (ADEQUATE) VERIFIED BY SMEAR Polychromasia 1+ Anisocytosis 1+ PUBS MCHC (33.0 - 37.0 G/DL) 32.9 L 07/09 07/08 0045 1736 Chemistry Lactic Acid (0.7 - 2.1 mmol/L) 3.8 H Cancelled
[2017-07-11 16:00] VITALS: BP 92/48
[2017-07-11 23:00] VITALS: BP 107/47
[2017-07-11 23:06] LABS: ABSOLUTE BASOPHIL COUNT 0 /CUMM (0.0-0.2); ABSOLUTE EOSINOPHIL COUNT 0 /CUMM (0.0-0.7); ABSOLUTE GRANULOCYTE CT 10.6 /CUMM (1.4-6.5); ABSOLUTE LYMPH COUNT 2.5 /CUMM (1.2-3.4); BASOPHIL % 0.1 % (0.0-2.0); EOSINOPHIL % 0.2 % (0-5); GRANULOCYTE % 75.1 % (42.2-75.2); HEMATOCRIT 35.7 % (42-52); MEAN CORPUSCULAR HGB 28.8 PG (27.0-31.0); MEAN CORPUSCULAR VOLUME 87.1 FL (80.0-94.0); MEAN PLATELET VOLUME 9.1 FL (7.4-10.4); PLATELET COUNT 157 /CUMM (130-400); RBC DISTRIBUTION WIDTH 16.7 % (11.5-14.5); WHITE BLOOD CELL COUNT 14.1 /CUMM (4.8-10.8)
[2017-07-12 04:09] LABS: ABSOLUTE BASOPHIL COUNT 0 /CUMM (0.0-0.2); ABSOLUTE EOSINOPHIL COUNT 0.1 /CUMM (0.0-0.7); ABSOLUTE GRANULOCYTE CT 10.8 /CUMM (1.4-6.5); ABSOLUTE LYMPH COUNT 2.6 /CUMM (1.2-3.4); ABSOLUTE MONOCYTE COUNT 0.7 /CUMM (0.10-0.60); BASOPHIL % 0.2 % (0.0-2.0); EOSINOPHIL % 0.4 % (0-5); GRANULOCYTE % 76.4 % (42.2-75.2); MEAN CORPUSCULAR HGB CONC 32.2 G/DL (33.0-37.0); MEAN PLATELET VOLUME 8.6 FL (7.4-10.4); PLATELET COUNT 143 /CUMM (130-400); PT 14.4 SEC (9.4-12.5); RBC DISTRIBUTION WIDTH 16.2 % (11.5-14.5); RED BLOOD CELL CT 4.02 /CUMM (4.70-6.10); WHITE BLOOD CELL COUNT 14.2 /CUMM (4.8-10.8)
--- NOTE | 2017-07-12 05:39 | PN- General Surgery ---
See Addendum Subjective Subjective: remains intubated, no longer sedated. alert, follows commands. mouthed "i want to talk" "i want to drink" no issues overnight per rn. off pressors. Objective Vital Signs and I&Os Vital Signs Date Time Temp Pulse Resp B/P B/P Pulse O2 O2 Flow FiO2 Mean Ox Delivery Rate 07/12 0400 93 Ventilator 40% 07/12 0354 40 07/12 0037 40 07/12 0000 94 Ventilator 40% 07/11 2300 97.7 72 23 107/47 93 Ventilator 40% 07/11 2212 40 07/11 2000 94 Ventilator 40% 07/11 1906 100/52 07/11 1905 40 07/11 1625 40 07/11 1600 95 Ventilator 40% 07/11 1600 97.9 82 24 92/48 95 Ventilator 40% 07/11 1453 74 96/50 07/11 1411 45 07/11 1200 95 Ventilator 45% 07/11 1200 99.5 84 33 102/54 95 Ventilator 45% 07/11 1040 45 07/11 0806 45 07/11 0800 96 Ventilator 45% 07/11 0800 100.1 76 25 100/62 96 Ventilator 45% 07/11 0637 81 25 106/52 07/11 0600 45 Intake & Output 07/12 0807/12 0000 07/11 1600 07/11 0800 07/11 0000 07/10 1600 Intake Total 1356 2024 1964 2180 3698.3 Output Total 1425 1370 1477 1053 765 Balance -69 404 908 0790 2933.3 Intake, IV 1356 2024 1963 2180 3698.3 Intake, Oral 0 0 Intake, Other 0 Number 0 0 Bowel Movements Output, 825 1060 790 565 Drainage Output, 0 0 50 100 Gastric Drainage Output, Other 920 Output, Urine 600 450 417 213 100 Patient 275 lb 277 lb Weight Weight Bed scale Measurement Method Physical Exam: last 8hr shifts: UO- 670+/600/450 NGT- 0/0/0 GABRIELA- 1000+/825/1060 WBC 14K (from 14) Hct 35 (from 35) Cr 2.6 (from 3.3, 4.2) OR Cx negative (prelim) GEN- intubaed, alert, awake CARD- s1s2 PULM- coarse throughout, vented ABD- staple line cdi, gabriela dressing cdi, ttp at incision, gabriela bulb with thin green bilious output, no bs EXT- bl le +edema, feet warm, alps on bl Results Last 48 Hours of Labs: Laboratory Tests 07/12 07/11 0348 2201 Chemistry Sodium (137 - 145 mmol/L) 146 H 143 Potassium (3.5 - 5.1 mmol/L) 3.9 4.0 Chloride (98 - 107 mmol/L) 121 H 117 H Carbon Dioxide (22 - 30 mmol/L) 17 L 17 L Anion Gap (5 - 16) 7 9 BUN (9 - 20 mg/dL) 54 H 58 H Creatinine (0.7 - 1.2 mg/dL) 2.6 H 3.3 H Estimated GFR (>60 ml/min) 24 L 18 L Glucose (65 - 99 mg/dL) 170 H 181 H Lactic Acid (0.7 - 2.1 mmol/L) 2.1 Calcium (8.4 - 10.2 mg/dL) 7.1 L 7.1 L Phosphorus (2.5 - 4.5 mg/dL) 3.5 3.9 Magnesium (1.6 - 2.3 mg/dL) 2.2 2.2 Total Bilirubin (0.2 - 1.3 mg/dL) 0.5 0.5 AST (17 - 59 U/L) 29 28 ALT (21 - 72 U/L) 32 31 Albumin (3.5 - 5.0 g/dL) 1.6 L 1.6 L Coagulation PT (9.4 - 12.5 SEC) 14.4 H INR (0.90 - 1.17) 1.38 H Hematology CBC w Diff NO MAN DIFF REQ NO MAN DIFF REQ WBC (4.8 - 10.8 /CUMM) 14.2 H 14.1 H RBC (4.70 - 6.10 /CUMM) 4.02 L 4.10 L Hgb (14.0 - 18.0 G/DL) 11.3 L 11.8 L Hct (42 - 52 %) 35.0 L 35.7 L MCV (80.0 - 94.0 FL) 87.0 87.1 MCH (27.0 - 31.0 PG) 28.0 28.8 RDW (11.5 - 14.5 %) 16.2 H 16.7 H Plt Count (130 - 400 /CUMM) 143 157 MPV (7.4 - 10.4 FL) 8.6 9.1 Gran % (42.2 - 75.2 %) 76.4 H 75.1 Lymphocytes % (20.5 - 51.1 %) 18.2 L 17.8 L Monocytes % (1.7 - 9.3 %) 4.8 6.8 Eosinophils % (0 - 5 %) 0.4 0.2 Basophils % (0.0 - 2.0 %) 0.2 0.1 Absolute Granulocytes (1.4 - 6.5 /CUMM) 10.8 H 10.6 H Absolute Lymphocytes (1.2 - 3.4 /CUMM) 2.6 2.5 Absolute Monocytes (0.10 - 0.60 /CUMM) 0.7 H 1.0 H Absolute Eosinophils (0.0 - 0.7 /CUMM) 0.1 0 Absolute Basophils (0.0 - 0.2 /CUMM) 0 0 PUBS MCHC (33.0 - 37.0 G/DL) 32.2 L 33.0 1106 07/11 1104 0605 Blood Gas pH (7.35 - 7.45 PH) 7.38 pCO2 (35 - 45 TORR) 30 L pO2 (80 - 100 TORR) 94 HCO3 (21 - 28 MEQ/L) 17 L ABG O2 Sat (Measured) (>96.0 %) 97.0 P-50 (Temp Corrected) N Carboxyhemoglobin (1.5 - 5.0 %) 0.3 L O2 Concentration % .45 Respiration Rate (BPM) 25 O2 Delivery Method VENT Vent Mode A/C Expiratory Pressure (CMH2O/P) 5 Tidal Volume (CC) 600 Miscellaneous Phlebotomy Draw Site LEFT BRACHIAL Urines Urinalysis HEAVY H Urine Color (YEL,AMB,STR) YEL Urine Clarity (CLEAR) HAZY H Urine pH (5.0 - 8.0) 5.5 Ur Specific [place] (1.001 - 1.035) 1.025 Urine Protein (NEG,<30 MG/DL) TRACE H Urine Ketones (NEG) NEG Urine Nitrite (NEG) NEG Urine Bilirubin (NEG) NEG Urine Urobilinogen (0.1 - 1.0 EU/dl) 0.2 Ur Leukocyte Esterase (NEG) NEG Ur Microscopic SEDIMENT EXAMINED Urine RBC (0 - 5 /HPF) 25-50 H Urine WBC (0 - 2 /HPF) 3-5 H Ur Epithelial Cells (NONE,FEW) RARE Urine Bacteria (NEG/NONE) MOD H Granular Casts (NONE /LPF) 1-3 H Urine Hemoglobin (NEG) LARGE H Urine Glucose (N MG/DL) 250 H 07/11 11 0400 2120 Chemistry Sodium (137 - 145 mmol/L) 144 Potassium (3.5 - 5.1 mmol/L) 4.2 Chloride (98 - 107 mmol/L) 115 H Carbon Dioxide (22 - 30 mmol/L) 16 L Anion Gap (5 - 16) 13 BUN (9 - 20 mg/dL) 60 H Creatinine (0.7 - 1.2 mg/dL) 4.2 H Estimated GFR (>60 ml/min) 14 L Glucose (65 - 99 mg/dL) 216 H Lactic Acid (0.7 - 2.1 mmol/L) 2.3 H 2.9 H Calcium (8.4 - 10.2 mg/dL) 6.7 L Phosphorus (2.5 - 4.5 mg/dL) 4.2 Magnesium (1.6 - 2.3 mg/dL) 2.2 Total Bilirubin (0.2 - 1.3 mg/dL) 0.5 AST (17 - 59 U/L) 20 ALT (21 - 72 U/L) 22 Albumin (3.5 - 5.0 g/dL) 1.7 L Coagulation PT (9.4 - 12.5 SEC) 16.0 H INR (0.90 - 1.17) 1.53 H Hematology CBC w Diff MAN DIFF ORDERED WBC (4.8 - 10.8 /CUMM) 14.8 H RBC (4.70 - 6.10 /CUMM) 4.47 L Hgb (14.0 - 18.0 G/DL) 12.7 L Hct (42 - 52 %) 39.0 L MCV (80.0 - 94.0 FL) 87.3 MCH (27.0 - 31.0 PG) 28.3 RDW (11.5 - 14.5 %) 16.6 H Plt Count (130 - 400 /CUMM) 184 MPV (7.4 - 10.4 FL) 8.9 Gran % (42.2 - 75.2 %) 67.5 Lymphocytes % (20.5 - 51.1 %) 25.5 Monocytes % (1.7 - 9.3 %) 6.5 Eosinophils % (0 - 5 %) 0.1 Basophils % (0.0 - 2.0 %) 0.4 Absolute Granulocytes (1.4 - 6.5 /CUMM) 10.0 H Segmented Neutrophils (42.2 - 75.2 %) 68 Band Neutrophils (0.0 - 5.0 %) 5 Absolute Lymphocytes (1.2 - 3.4 /CUMM) 3.8 H Lymphocytes (20.5 - 51.1 %) 26 Monocytes (1.7 - 9.3 %) 1 L Absolute Monocytes (0.10 - 0.60 /CUMM) 1.0 H Absolute Eosinophils (0.0 - 0.7 /CUMM) 0 Absolute Basophils (0.0 - 0.2 /CUMM) 0.1 Platelet Estimate (ADEQUATE) ADEQUATE Normocytic RBCs VERIFIED Normochromic RBCs VERIFIED PUBS MCHC (33.0 - 37.0 G/DL) 32.4 L 07/10 07/10 07/10 1905 1820 1520 Blood Gas pH (7.35 - 7.45 PH) 7.39 pCO2 (35 - 45 TORR) 29 L pO2 (80 - 100 TORR) 86 HCO3 (21 - 28 MEQ/L) 17 L ABG O2 Sat (Measured) (>96.0 %) 96.0 P-50 (Temp Corrected) N Carboxyhemoglobin (1.5 - 5.0 %) 0.6 L O2 Concentration % 45% Temperature (97.0 - 100.0 FARH) 99.0 Respiration Rate (BPM) 25 O2 Delivery Method ESPRIT Vent Mode AC Expiratory Pressure (CMH2O/P) 5 Tidal Volume (CC) 600 Chemistry Sodium (137 - 145 mmol/L) 142 Potassium (3.5 - 5.1 mmol/L) 4.4 Chloride (98 - 107 mmol/L) 114 H Carbon Dioxide (22 - 30 mmol/L) 16 L Anion Gap (5 - 16) 13 BUN (9 - 20 mg/dL) 54 H Creatinine (0.7 - 1.2 mg/dL) 4.0 H Estimated GFR (>60 ml/min) 15 L Glucose (65 - 99 mg/dL) 258 H Lactic Acid (0.7 - 2.1 mmol/L) 3.3 H 3.3 H Calcium (8.4 - 10.2 mg/dL) 6.3 L Phosphorus (2.5 - 4.5 mg/dL) 4.0 Magnesium (1.6 - 2.3 mg/dL) 2.2 Total Bilirubin (0.2 - 1.3 mg/dL) 0.5 AST (17 - 59 U/L) 23 ALT (21 - 72 U/L) 24 Albumin (3.5 - 5.0 g/dL) 1.7 L Miscellaneous Phlebotomy Draw Site LEFT BRACHIAL Serology Hepatitis A IgM Ab (NONREACTIVE) NONREACTIVE Hep Bs Antigen (NONREACTIVE) NONREACTIVE Hep B Core IgM Ab Conf (NONREACTIVE) NONREACTIVE Hepatitis C Antibody (NONREACTIVE) NONREACTIVE 07/10 07/10 07/10 1245 1245 1158 Chemistry Sodium (137 - 145 mmol/L) 143 Potassium (3.5 - 5.1 mmol/L) 4.4 Chloride (98 - 107 mmol/L) 113 H Carbon Dioxide (22 - 30 mmol/L) 16 L Anion Gap (5 - 16) 13 BUN (9 - 20 mg/dL) 50 H Creatinine (0.7 - 1.2 mg/dL) 3.7 H Estimated GFR (>60 ml/min) 16 L Glucose (65 - 99 mg/dL) 241 H Lactic Acid (0.7 - 2.1 mmol/L) 4.0 H Calcium (8.4 - 10.2 mg/dL) 6.5 L Phosphorus (2.5 - 4.5 mg/dL) 3.8 Magnesium (1.6 - 2.3 mg/dL) 1.7 Total Bilirubin (0.2 - 1.3 mg/dL) 0.5 AST (17 - 59 U/L) 25 ALT (21 - 72 U/L) 24 Albumin (3.5 - 5.0 g/dL) 1.8 L Coagulation PT (9.4 - 12.5 SEC) 17.7 H INR (0.90 - 1.17) 1.69 H Urines Urinalysis MOD H Urine Color (YEL,AMB,STR) ORANG H Urine Clarity (CLEAR) CLDY H Urine pH (5.0 - 8.0) 5.0 Ur Specific [place] (1.001 - 1.035) 1.025 Urine Protein (NEG,<30 MG/DL) 100 H Urine Ketones (NEG) TRACE H Urine Nitrite (NEG) NEG Urine Bilirubin (NEG) NEG@ICTO Urine Urobilinogen (0.1 - 1.0 EU/dl) 0.2 Ur Leukocyte Esterase (NEG) NEG Ur Microscopic SEDIMENT EXAMINED Urine RBC (0 - 5 /HPF) >75 H Urine WBC (0 - 2 /HPF) 1-3 H Ur Epithelial Cells (NONE,FEW) RARE Urine Bacteria (NEG/NONE) FEW H Granular Casts (NONE /LPF) RARE H Urine Mucus (FEW,NONE) FEW Urine Hemoglobin (NEG) LARGE H Urine Osmolality (300 - 1000 MOSM/KG) 375 Ur Random Creatinine (mg/dL) 141.8 Ur Random Sodium (30 - 90 mmol/L) 38 Ur Random Potassium (mmol/L) 46.3 Fraction Sodium Excret (<1% %) 0.7 Urine Glucose (N MG/DL) NEG 07/10 07/10 07/10 1112 0845 0555 Blood Gas pH (7.35 - 7.45 PH) 7.41 pCO2 (35 - 45 TORR) 27 L pO2 (80 - 100 TORR) 93 HCO3 (21 - 28 MEQ/L) 17 L ABG O2 Sat (Measured) (>96.0 %) 97.0 P-50 (Temp Corrected) N Carboxyhemoglobin (1.5 - 5.0 %) 0.6 L O2 Concentration % .40 Respiration Rate (BPM) 16 O2 Delivery Method VENT Vent Mode A/C Expiratory Pressure (CMH2O/P) 5 Tidal Volume (CC) 600 Chemistry Sodium (137 - 145 mmol/L) 142 Potassium (3.5 - 5.1 mmol/L) 4.9 Chloride (98 - 107 mmol/L) 110 H Carbon Dioxide (22 - 30 mmol/L) 17 L Anion Gap (5 - 16) 15 BUN (9 - 20 mg/dL) 48 H Creatinine (0.7 - 1.2 mg/dL) 3.7 H Estimated GFR (>60 ml/min) 16 L BUN/Creatinine Ratio (7 - 25 %) 13.0 Lactic Acid (0.7 - 2.1 mmol/L) 4.6 H Ionized Calcium Pending Phosphorus (2.5 - 4.5 mg/dL) 3.8 Magnesium (1.6 - 2.3 mg/dL) 1.8 Troponin I (<0.11 ng/ml) 0.07 TSH (0.270 - 4.200 uIU/mL) 2.210 Cortisol AM Sample (4.46 - 22.7 ug/dL) 64.1 H Miscellaneous Phlebotomy Draw Site DEANA Assessment/Plan Assessment/Plan POD3 sp emergent ex lap, tono patch for perforated duodenal ulcer with gross peritonitis, currently in fair condition intubated in ICU, with copious amount of bilious drainage from GABRIELA- ?duodenal leak vs. continued drainage of known retroperitoneal collection, with improved renal function and no longer requiring pressor support. P: cont IVF, NGT, GABRIELA drain strict I&Os, in setting of renal dysfunction and high output drainage from abd meropenum per ID, final cx pending IV PPI BID destinee sq, ALPs medical care per primary team
--- NOTE | 2017-07-12 07:37 | RADIOLOGY REPORT ---
XR PORTABLE CHEST CLINICAL INFORMATION: Intubated for follow-up. COMPARISON: Chest x-ray 07/11/2017. TECHNIQUE: Portable frontal view of the chest was obtained. FINDINGS: Artifactually degraded study. Left pectoral AICD/pacemaker remains in unchanged position. Median sternotomy wires. Right IJ central venous catheter tip terminates over the SVC. Endotracheal tube tip is in similar position approximately 5 cm above the kika. Low lung volumes. Probable small pleural effusions bilaterally with adjacent atelectasis. There is no pneumothorax. No focal consolidation. Cardiac silhouette and osseous structures are stable. IMPRESSION: - Stable positioning of the endotracheal tube which is approximately 5 cm above the kika. Right IJ central venous catheter tip again projects over the SVC. - Possible small pleural effusions with adjacent atelectasis. Cardiac silhouette is enlarged and unchanged.
[2017-07-12 08:00] VITALS: BP 98/56
--- NOTE | 2017-07-12 08:52 | PN- Resident CRCU ---
Subjective HPI/CRCU Issues: HPI/CRCU Issues: - Septic shock 2/2 perforated duodenal ulcer s/p Fabrizio patch POD Day #2 currently on Levophed - Metabolic acidosis - DM - CAD s/p CABG - HFrEF with EF of 25% s/p AICD - PAF on Tikosyn not on AC - USMAN 2/2 ATN from septic shock - Acute respiratory failure curently intubated 24 Hour Events: 24 Hour Events: Intubated and sedated. Calm, cooperative, easily arousable. Afebrile overnight. NSR overnight, 72. Off Levo. Sedation with Fentanyl 50 mcg IVF D5NS 150 cc / hr. Vent (20/600/45/5). Sats 93 on 40 %. I/O = 1169 (IVF) /825 cc (8 hr) ABG 7.38/31/76/18 . 97% WILLEM drain output - 2L overnight Overall improvement. States he wants to drink. No pain. Objective Vital Signs & I&O Last 8 Hrs of Vitals and I&O: NSR 72, RR 20, BP 101/59. 8 hour, 1169/825. CVP 2, 8.20 am. CXR: IMPRESSION: - Stable positioning of the endotracheal tube which is approximately 5 cm above the kika. Right IJ central venous catheter tip again projects over the SVC. - Possible small pleural effusions with adjacent atelectasis. Cardiac silhouette is enlarged and unchanged. Exam General Appearance: well developed/nourished, alert, awake, comfortable Head: atraumatic, normal appearance Ears, Nose, Throat: normal pharynx Neck: normal inspection, supple Respiratory: normal breath sounds, chest non-tender Cardiovascular: regular rate/rhythm Gastrointestinal: normal bowel sounds, tenderness Extremities: normal inspection Weaning Parameters NIF: 27 Minute Volume: 14.3 Resp rate: 20 Vt: 607 Heart Rate: 78 Weaning Schedule Start Time: 1042 Minute Volume: 13.3 Resp Rate: 27 Vt: 547 Heart Rate: 84 End Time: 1215 Minute Volume: 13.5 Resp Rate: 26 Vt: 543 Heart Rate: 84 Current Medications: Current Medications Sig/Buck Start time Last Medication Dose Route Stop Time Status Admin Acetaminophen 1,000 MG Q6H PRN 07/09 1900 AC 07/10 N/A 1 UNIT IV 1807 Ampicillin Sodium/ 3,000 MG Q8H 11/07 1800 07/12 Sulbactam Sodium IV 1723 Sodium Chloride 100 ML Budesonide/ 2 PUF BID 07/09 220 Formoterol Fumarate INH Dextrose/Sodium 1,000 ML Q5H 07/10 1900 DC 07/12 Chloride IV 0246 Fentanyl Citrate 1,000 MCG Q13H 07/10 2300 07/12 Dextrose/Water 250 ML IV 0850 Heparin Sodium 5,000 UNIT Q8 07/10 0138 07/12 (Porcine) SC 1412 Insulin Human Regular 0 Q6 07/12 0600 07/12 SC 1804 Insulin Human Regular 2 UNITS ONCE ONE 07/12 0200 DC 07/12 SC 07/12 0201 0156 Insulin Human Regular 4 UNITS .STK-MED ONE 07/11 2113 DC IV 07/11 211 Insulin Human Regular 0 Q4 07/09 2200 WI 07/11 SC 2119 Meropenem 1 GM Q12H 07/11 1700 DC 07/12 IV 1537 Norepinephrine 4 MG Q8H 07/10 1800 DC 07/11 Sodium Chloride 250 ML IV 0637 Nystatin 1 GENE TID 07/09 2200 07/12 TOP 1537 Ondansetron HCl 4 MG ONCE ONE 07/12 1530 DC 07/12 IV 07/12 1531 1537 Pantoprazole Sodium 40 MG BID 07/10 1016 07/12 IV 0818 Potassium Chloride 20 MEQ Q8H 07/12 0930 07/12 Dextrose/Sodium 1,000 ML IV 1723 Chloride Potassium Chloride 20 MEQ Q8H 07/12 0915 DC Dextrose/Sodium 1,000 ML IV 07/12 1714 Chloride Potassium Chloride 10 MEQ ONCE ONE 07/12 0800 CAN IV 07/12 0801 Impression/Plan Impression/Problem List Impression: 76 year old gentleman PAF on Tikosyn, not on AC, 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 POD 2, continues to be intuibated and requiring MV support. Plan: #Post op respiratory support with Mechanical ventilation - Patient was intubated for surgery 07/09/17 and continues to remain mechanically ventilated. - His ABG this AM show pH: 7.38; pCO2: 31, pO2: 93 with vent settings A/C; RR: 20; TV: 600ml; PEEP: 5 - Fentanyl for sedation - F/U ABG - F/U CXR shows small left pleural effusion. Concern for fluid overlaod? Will go by CVP, which was 2 this am. Cont D5NS @ 150 cc/hr. Will continue to monitor respiratory status, closed. ?Decrease RR. Weaning trials. Need surgery's input before extubation, if they plan to take Peter to the OR again. #Septic shock - 2/2 peritonitis from perforated duodenal ulcer - S/p fluid resuscitation and pressors. - Continue to hydrate with D5/NS @ 150mls/hr. Goal to maintain CVP of 4-6 and or MAP of > 65mmHg. Concern for fluid overload given X-ray findings. Closely monitor. - Meropenem to 1000mg q12 hrs IV. - F/U OR cultures, BC X2, . #Hypotension - 2/2 septic shock - Titrate to maintain MAP > 65mmHg, and bolus with fluids with caution to maintain a CVP of 4-6. #CAD s/p CABG -F/u cardio recs - F/U limited Echo - F/U card recs #Hx of PAF on Tikosyn - Curently in NSR, and rate controlled - Continue to hold tikosyn. Cardio following. # Perforated duodenal ulcer - S/P Fabrizio repair yesterday with WILLEM drain - Followed by [facility]. WILLEM drain high output noted, await surgical input. - IV Protonix 40mg BID - NPO status for now. - F/U Gen Surg recs. #Metabolic acidosis - 2/2 lactic acidosis from systemic hypoperfusion - Resolved - Continue IVF hydration #USMAN -Improving - Continue IVFs. - Continue to montior #Hypocalcemia -Corrected calcium for hypoalbumenia normal. Ionized calcium pending. - Replete as needed #Hypernatremia - Continue to monitor. Resusciatation over mild rise in sodium levels, continue D5NS. Will switch to 1/2 NS once CVP and BP more acceptable. Replete K. #Neuro - On Fentanyl; SAS of 3. - DVT prophylaxis - On heparin 5000iu TID SC - Diet - NPO - Code Status - Full Code Problem List: 1. Perforated viscus Pain Ratin Tomorrow's Labs & Rationales: Septic shock Plan DVT/Prophylaxis: mechanical, pharmacological
--- NOTE | 2017-07-12 09:24 | PN- CRCU ---
Subjective HPI/Critical Care Issues: Intubated and sedated. Calm, cooperative, easily arousable. Afebrile overnight. NSR overnight, 72. Off Levo. Sedation with Fentanyl 50 mcg IVF D5NS 150 cc / hr. Good urine output However has sig amount of GABRIELA drainage which appears to be biliary Creat improving Hypernatremic mild due to normal saline LFts stable WBC 14 CXR mild effusion left side Objective Current Medications: Current Medications Sig/Buck Start time Last Medication Dose Route Stop Time Status Admin Acetaminophen 1,000 MG Q6H PRN 07/09 1900 07/10 N/A 1 UNIT IV 1807 Budesonide/ 2 PUF BID 07/09 2200 AC Formoterol Fumarate INH Dextrose/Sodium 1,000 ML Q5H 07/10 190 07/12 Chloride IV 0246 Fentanyl Citrate 1,000 MCG Q13H 07/10 2300 07/12 Dextrose/Water 250 ML IV 0850 Heparin Sodium 5,000 UNIT Q8 07/10 0138 07/12 (Porcine) [place] 0500 Insulin Human Regular 0 Q6 07/12 0600 07/12 SC 0502 Insulin Human Regular 2 UNITS ONCE ONE 07/12 0200 ND 07/12 SC 07/12 0201 0156 Insulin Human Regular 4 UNITS .STK-MED ONE 07/11 2113 DC IV 07/11 2114 Insulin Human Regular 6 UNITS .STK-MED ONE 07/11 1728 DC IV 07/11 1729 Insulin Human Regular 8 UNITS .STK-MED ONE 07/11 1358 DC IV 07/11 1359 Insulin Human Regular 6 UNITS .STK-MED ONE 07/11 1015 DC IV 07/11 1016 Insulin Human Regular 0 Q4 07/09 2200 ND 07/11 SC 2119 Meropenem 1 GM Q12H 07/11 1700 07/12 IV 0458 Meropenem 1 GM Q24 07/11 1000 DC IV Meropenem 1 GM Q24H 07/11 0500 ND 07/11 IV 0436 Norepinephrine 4 MG Q8H 07/10 1800 DC 07/11 Sodium Chloride 250 ML IV 0637 Nystatin 1 GENE TID 07/09 2200 AC 07/12 TOP 0818 Pantoprazole Sodium 40 MG BID 07/10 1016 AC 07/12 IV 0818 Potassium Chloride 20 MEQ Q8H 07/12 0915 UNVr Dextrose/Sodium 1,000 ML IV 07/12 1714 Chloride Potassium Chloride 10 MEQ ONCE ONE 07/12 800 CAN IV 07/12 801 Vital Signs & I&O Last 24 Hrs of Vitals and I&O: Vital Signs Date Time Temp Pulse Resp B/P B/P Pulse O2 O2 Flow FiO2 Mean Ox Delivery Rate 07/12 831 40 07/12 0628 40 07/12 0400 93 Ventilator 40% 07/12 0354 40 07/12 0037 40 07/12 0000 94 Ventilator 40% 07/11 2300 97.7 72 23 107/47 93 Ventilator 40% 07/11 2212 40 07/11 2000 94 Ventilator 40% 07/11 1906 100/52 07/11 1905 40 07/11 1625 40 07/11 1600 95 Ventilator 40% 07/11 1600 97.9 82 24 92/48 95 Ventilator 40% 07/11 1453 74 96/50 07/11 1411 45 07/11 1200 95 Ventilator 45% 07/11 1200 99.5 84 33 102/54 95 Ventilator 45% 07/11 1040 45 Intake & Output 07/12 1600 07/12 0800 07/12 0000 Intake Total 1295 1356 Output Total 1825 1425 Balance -530 -69 Intake, IV 1295 1356 Intake, Oral 0 0 Number 0 0 Bowel Movements Output, 1000 825 Drainage Output, Urine 825 600 Impression/Plan Impression/Plan Impression/Plan: Afebrile. He is sedated but esponsive on the ventilator. Skin reveals no rash. HEENT negative. Neck supple with no adenopathy; right IJ triple-lumen catheter in place, with no inflammation at the site. Lungs decreased breath sounds bilaterally. Heart regular rhythm with no murmur. Abdomen is obese, distended, tender to palpation, Incision noted with a gabriela drain in the rt side Back no CVA tenderness. Extremities right hip incision clean, with no erythema or drainage; uperficial ulcerations over the anterior tibial aspects of both legs, with 1+ edema bilaterally. Neuro is without focality. Duvall catheter is in place IMPRESSION This is a 76-year-old gentleman with significant ischemic heart, low ejection fraction, atrial fibrillation, previous AICD, recent 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 with prolonged antibiotic, previous history of peptic ulcer disease, diabetes, previous chronic kidney disease but however his creatinine which was normal upon admission, was in sinus rhythm upon admission was on Tikosyn, hyperlipidemia, apparently has never smoked before, previous history of lithotripsy, CABG, hip prosthesis infection status post removal in early 2017 now has the following issues * S/p Perf large DU ulcer s/p surg with resolving septic shock and peritonitis with resolving metabolic acidosis, respiratory failure, * REsolving Acute respiratory insufficiency due to above with no clinical evidence suggestive of pneumonia\ * Sig drainage from the gabriela biliary rule out any biliary leak (less likely) * REsolving Significant septic shock now off vasopressors with adequate fluid resuscitation * Significant ischemic heart disease with low ejection fraction high risk for fluid overload. Previous pafib in sinus now with a pacer and AICD * Resolving Acute renal failure most likely related to acute tubular necrosis from his septic shock and Prob contrast nephropathy * Significant diabetes with the previous CLARISA inhibitor use as well * Multiple electrolyte abnormalities now better * Significant intra-abdominal sepsis with previous hip infection now on broad- spectrum antibiotics. No clinical evidence suggestive of right hip infection at this present time * H/O LIAM was on cpap RECOMMENDATION * Start psv trials and extubate * Noncontrast ct abd to eval for any perf and other complications * keep pt even and can change to d5 0.45 normal saline * Once creat is better needs a picc line as he may need TPN * Continue his fentanyl low-dose for now, and after extubation will use low dose dilautid * Continue broad-spectrum antibiotics * Intravenous pantoprazole * Heparin subcutaneous * Cardio follow up * Watch for pulm edema, lasix before extubation prob 40 or 60
--- NOTE | 2017-07-12 10:33 | PN- Cardiology ---
Subjective Subjective: Hemodynamically improved. Levophed discontinued last night. Objective Vital Signs and I&Os Vital Signs Date Time Temp Pulse Resp B/P B/P Pulse O2 O2 Flow FiO2 Mean Ox Delivery Rate 07/12 0831 40 07/12 800 98.2 69 21 98/56 96 Ventilator 40% 07/12 0628 40 07/12 0400 93 Ventilator 40% 07/12 0354 40 07/12 0037 40 07/12 0000 94 Ventilator 40% 07/11 2300 97.7 72 23 107/47 93 Ventilator 40% 07/11 2212 40 07/11 2000 94 Ventilator 40% 07/11 1906 100/52 07/11 1905 40 07/11 1625 40 07/11 1600 95 Ventilator 40% 07/11 1600 97.9 82 24 92/48 95 Ventilator 40% 07/11 1453 74 96/50 07/11 1411 45 07/11 1200 95 Ventilator 45% 07/11 1200 99.5 84 33 102/54 95 Ventilator 45% 07/11 1040 45 Intake & Output 07/12 1600 07/12 0807/12 0000 07/11 1600 07/11 0800 07/11 0000 Intake Total 1295 1356 202 1964 2180 Output Total 1825 1425 1370 1477 1053 Balance -530 -69 922 947 4213 Intake, IV 1295 1356 2025 1964 2180 Intake, Oral 0 0 Number 0 0 0 Bowel Movements Output, 1601 310 5245 790 Drainage Output, 0 0 50 Gastric Drainage Output, Other 920 Output, Urine 825 600 450 417 213 Patient 275 lb Weight Physical Exam: Well-developed, morbidly obese elderly male who is intubated and sedated. Vital signs: See above. Neck: No JVD, no bruits. Lungs: Decreased breath sounds bilaterally. Heart: S1, S2 with soft (grade 1/6) systolic murmur. Abdomen: Soft, absent bowel sounds. Extremities: No edema. Current Medications: Current Medications Sig/Buck Start time Last Medication Dose Route Stop Time Status Admin Acetaminophen 1,000 MG Q6H PRN 07/09 1900 AC 07/10 N/A 1 UNIT IV 1807 Budesonide/ 2 PUF BID 07/09 2200 AC Formoterol Fumarate INH Dextrose/Sodium 1,000 ML Q5H 07/10 1900 DC 07/12 Chloride IV 0246 Fentanyl Citrate 1,000 MCG Q13H 07/10 2300 07/12 Dextrose/Water 250 ML IV 0850 Heparin Sodium 5,000 UNIT Q8 07/10 0138 07/12 (Porcine) SC 0500 Insulin Human Regular 0 Q6 07/12 0600 07/12 [place] 0502 Insulin Human Regular 2 UNITS ONCE ONE 07/12 0200 DC 07/12 SC 07/12 0201 0156 Insulin Human Regular 4 UNITS .STK-MED ONE 07/11 2113 DC IV 07/11 211 Insulin Human Regular 6 UNITS .STK-MED ONE 07/11 1728 DC IV 07/11 1729 Insulin Human Regular 8 UNITS .STK-MED ONE 07/11 1358 DC IV 07/11 1359 Insulin Human Regular 0 Q4 07/09 2200 OH 07/11 [place] 211 Meropenem 1 GM Q12H 07/11 1700 07/12 IV 0458 Meropenem 1 GM Q24H 07/11 0500 OH 07/11 IV 0436 Norepinephrine 4 MG Q8H 07/10 1800 OH 07/11 Sodium Chloride 250 ML IV 0637 Nystatin 1 GENE TID 07/09 2200 07/12 TOP 0818 Pantoprazole Sodium 40 MG BID 07/10 1016 07/12 IV 0818 Potassium Chloride 20 MEQ Q8H 07/12 0930 07/12 Dextrose/Sodium 1,000 ML IV 0927 Chloride Potassium Chloride 20 MEQ Q8H 07/12 0915 DC Dextrose/Sodium 1,000 ML IV 07/12 1714 Chloride Potassium Chloride 10 MEQ ONCE ONE 07/12 0800 CAN IV 07/12 0801 Results Last 48 Hrs of Labs/Mics: Laboratory Tests 07/12/17 0530: pH 7.38, pCO2 31 L, pO2 76 L, HCO3 18 L, ABG O2 Sat (Measured) 93.0 L, P-50 (Temp Corrected) Y, Carboxyhemoglobin 0.1 L, O2 Concentration % 40%, Temperature 99.3, Respiration Rate 20, O2 Delivery Method ESPRIT, Vent Mode AC, Expiratory Pressure 5, Tidal Volume 600, Phlebotomy Draw Site RIGHT RADIAL 07/12/17 0348: Anion Gap 7, Estimated GFR 24 L, Glucose 170 H, Calcium 7.1 L, Phosphorus 3.5 , Magnesium 2.2, Total Bilirubin 0.5, AST 29, ALT 32, Albumin 1.6 L, PT 14.4 H , INR 1.38 H, CBC w Diff NO MAN DIFF REQ, RBC 4.02 L, MCV 87.0, MCH 28.0, RDW 16.2 H, MPV 8.6, Gran % 76.4 H, Lymphocytes % 18.2 L, Monocytes % 4.8, Eosinophils % 0.4, Basophils % 0.2, Absolute Granulocytes 10.8 H, Absolute Lymphocytes 2.6, Absolute Monocytes 0.7 H, Absolute Eosinophils 0.1, Absolute Basophils 0, PUBS MCHC 32.2 L 07/11/17 2201: Anion Gap 9, Estimated GFR 18 L, Glucose 181 H, Lactic Acid 2.1, Calcium 7.1 L, Phosphorus 3.9, Magnesium 2.2, Total Bilirubin 0.5, AST 28, ALT 31, Albumin 1.6 L, CBC w Diff NO MAN DIFF REQ, RBC 4.10 L, MCV 87.1, MCH 28.8, RDW 16.7 H , MPV 9.1, Gran % 75.1, Lymphocytes % 17.8 L, Monocytes % 6.8, Eosinophils % 0.2, Basophils % 0.1, Absolute Granulocytes 10.6 H, Absolute Lymphocytes 2.5, Absolute Monocytes 1.0 H, Absolute Eosinophils 0, Absolute Basophils 0, PUBS MCHC 33.0 07/11/17 1104: Urinalysis HEAVY H, Urine Color YEL, Urine Clarity HAZY H, Urine pH 5.5, Ur Specific [place] 1.025, Urine Protein TRACE H, Urine Ketones NEG, Urine Nitrite NEG, Urine Bilirubin NEG, Urine Urobilinogen 0.2, Ur Leukocyte Esterase NEG, Ur Microscopic SEDIMENT EXAMINED, Urine RBC 25-50 H, Urine WBC 3-5 H, Ur Epithelial Cells RARE, Urine Bacteria MOD H, Granular Casts 1-3 H, Urine Hemoglobin LARGE H, Urine Glucose 250 H 07/11/17 0605: pH 7.38, pCO2 30 L, pO2 94, HCO3 17 L, ABG O2 Sat (Measured) 97.0, P-50 (Temp Corrected) N, Carboxyhemoglobin 0.3 L, O2 Concentration % .45, Respiration Rate 25, O2 Delivery Method VENT, Vent Mode A/C, Expiratory Pressure 5, Tidal Volume 600, Phlebotomy Draw Site LEFT BRACHIAL 07/11/17 0400: Anion Gap 13, Estimated GFR 14 L, Glucose 216 H, Lactic Acid 2.3 H, Calcium 6.7 L, Phosphorus 4.2, Magnesium 2.2, Total Bilirubin 0.5, AST 20, ALT 22, Albumin 1.7 L, PT 16.0 H, INR 1.53 H, CBC w Diff MAN DIFF ORDERED, RBC 4.47 L, MCV 87.3, MCH 28.3, RDW 16.6 H, MPV 8.9, Gran % 67.5, Lymphocytes % 25.5, Monocytes % 6.5, Eosinophils % 0.1, Basophils % 0.4, Absolute Granulocytes 10.0 H, Segmented Neutrophils 68, Band Neutrophils 5, Absolute Lymphocytes 3.8 H, Lymphocytes 26, Monocytes 1 L, Absolute Monocytes 1.0 H, Absolute Eosinophils 0, Absolute Basophils 0.1, Platelet Estimate ADEQUATE, Normocytic RBCs VERIFIED, Normochromic RBCs VERIFIED, PUBS MCHC 32.4 L 07/10/170: Lactic Acid 2.9 H 07/10/17 1905: pH 7.39, pCO2 29 L, pO2 86, HCO3 17 L, ABG O2 Sat (Measured) 96.0, P-50 (Temp Corrected) N, Carboxyhemoglobin 0.6 L, O2 Concentration % 45%, Temperature 99.0 , Respiration Rate 25, O2 Delivery Method ESPRIT, Vent Mode AC, Expiratory Pressure 5, Tidal Volume 600, Phlebotomy Draw Site LEFT BRACHIAL 07/10/17 1820: Anion Gap 13, Estimated GFR 15 L, Glucose 258 H, Lactic Acid 3.3 H, Calcium 6.3 L, Phosphorus 4.0, Magnesium 2.2, Total Bilirubin 0.5, AST 23, ALT 24, Albumin 1.7 L, Hepatitis A IgM Ab NONREACTIVE, Hep Bs Antigen NONREACTIVE, Hep B Core IgM Ab Conf NONREACTIVE, Hepatitis C Antibody NONREACTIVE 07/10/17 1520: Lactic Acid 3.3 H 07/10/17 1245: Urinalysis MOD H, Urine Color ORANG H, Urine Clarity CLDY H, Urine pH 5.0, Ur Specific [place] 1.025, Urine Protein 100 H, Urine Ketones TRACE H, Urine Nitrite NEG, Urine Bilirubin NEG@ICTO, Urine Urobilinogen 0.2, Ur Leukocyte Esterase NEG, Ur Microscopic SEDIMENT EXAMINED, Urine RBC >75 H, Urine WBC 1-3 H, Ur Epithelial Cells RARE, Urine Bacteria FEW H, Granular Casts RARE H, Urine Mucus FEW, Urine Hemoglobin LARGE H, Urine Glucose NEG 07/10/17 1245: Urine Osmolality 375, Ur Random Creatinine 141.8, Ur Random Sodium 38, Ur Random Potassium 46.3, Fraction Sodium Excret 0.7 07/10/17 1158: Anion Gap 13, Estimated GFR 16 L, Glucose 241 H, Lactic Acid 4.0 H, Calcium 6.5 L, Phosphorus 3.8, Magnesium 1.7, Total Bilirubin 0.5, AST 25, ALT 24, Albumin 1.8 L, PT 17.7 H, INR 1.69 H 07/10/17 1112: Ionized Calcium Pending Microbiology 07/10 1450 LOWER RESP: Respiratory Culture - COMP 07/10 1450 LOWER RESP: Gram Stain - COMP Recent Imaging Studies: CXR (07/12/2017): 1. Stable positioning of the endotracheal tube which is approximately 5 cm above the kika. Right IJ central venous catheter tip again projects over the SVC. 2. Possible small pleural effusions with adjacent atelectasis. Cardiac silhouette is enlarged and unchanged. Assessment/Plan Assessment/Plan [id number] w/ hx of morbid obesity, LIAM on CPAP, COPD, HTN, HLD, DM, CAD/ICM (s/ p IMI in 1998, CABG 4 w/ WHITE to LAD and individual SVGs to Dx, OM, PDA & MAZE) , and recurrent PAF who presented in an unkempt state via ambulance with a urinary tract infection and subsequently had a perforation of a duodenal ulcer for which he underwent surgery (Fabrizio patch) on 07/09/2017. He remains intubated and sedated, but easily arousable. Blood pressure is presently borderline with off the levophed. If further ventricular tachycardia will place on amiodarone. Continue DVT prophylaxis. Continue telemetry? Not applicable (In ICU.) Continue telemetry? Not applicable (In ICU.)
--- NOTE | 2017-07-12 11:57 | PN- Infect Dx ---
Subjective Subjective: MAXIMUM TEMPERATURE 100.1. His blood pressure remains stable off pressors. He does not offer any complaints. Objective Last 24 Hrs of Vital Signs/I&O Vital Signs Date Time Temp Pulse Resp B/P B/P Pulse O2 O2 Flow FiO2 Mean Ox Delivery Rate 07/12 831 40 07/12 800 96 Ventilator 40% 07/12 800 98.2 69 21 98/56 96 Ventilator 40% 07/12 0628 40 07/12 0400 93 Ventilator 40% 07/12 0354 40 07/12 0037 40 07/12 0000 94 Ventilator 40% 07/11 2300 97.7 72 23 107/47 93 Ventilator 40% 07/11 2212 40 07/11 2000 94 Ventilator 40% 07/11 1906 100/52 07/11 1905 40 07/11 1625 40 07/11 1600 95 Ventilator 40% 07/11 1600 97.9 82 24 92/48 95 Ventilator 40% 07/11 1453 74 96/50 07/11 1411 45 07/11 1200 95 Ventilator 45% 07/11 1200 99.5 84 33 102/54 95 Ventilator 45% Intake & Output 07/12 1600 07/12 0807/12 0000 Intake Total 1295 1356 Output Total 1825 1425 Balance -530 -69 Intake, IV 1295 1356 Intake, Oral 0 0 Number 0 0 Bowel Movements Output, 1000 825 Drainage Output, Urine 825 600 Physical Exam Other Physical Findings: He appears comfortable on the ventilator in no acute distress Neck right IJ triple-lumen catheter with no inflammation at the site Lungs are clear Heart regular rhythm with no murmur Abdomen is distended, tender to palpation, especially on the right, with positive bowel sounds; WILLEM drain with significant amount of bilious output noted Extremities 1+ edema both lower extremities Duvall catheter remains in place Results Last 24 Hours of Lab Results: Laboratory Tests 07/12 07/12 0530 0348 Blood Gas pH (7.35 - 7.45 PH) 7.38 pCO2 (35 - 45 TORR) 31 L pO2 (80 - 100 TORR) 76 L HCO3 (21 - 28 MEQ/L) 18 L ABG O2 Sat (Measured) (>96.0 %) 93.0 L P-50 (Temp Corrected) Y Carboxyhemoglobin (1.5 - 5.0 %) 0.1 L O2 Concentration % 40% Temperature (97.0 - 100.0 FARH) 99.3 Respiration Rate (BPM) 20 O2 Delivery Method ESPRIT Vent Mode AC Expiratory Pressure (CMH2O/P) 5 Tidal Volume (CC) 600 Chemistry Sodium (137 - 145 mmol/L) 146 H Potassium (3.5 - 5.1 mmol/L) 3.9 Chloride (98 - 107 mmol/L) 121 H Carbon Dioxide (22 - 30 mmol/L) 17 L Anion Gap (5 - 16) 7 BUN (9 - 20 mg/dL) 54 H Creatinine (0.7 - 1.2 mg/dL) 2.6 H Estimated GFR (>60 ml/min) 24 L Glucose (65 - 99 mg/dL) 170 H Calcium (8.4 - 10.2 mg/dL) 7.1 L Phosphorus (2.5 - 4.5 mg/dL) 3.5 Magnesium (1.6 - 2.3 mg/dL) 2.2 Total Bilirubin (0.2 - 1.3 mg/dL) 0.5 AST (17 - 59 U/L) 29 ALT (21 - 72 U/L) 32 Albumin (3.5 - 5.0 g/dL) 1.6 L Coagulation PT (9.4 - 12.5 SEC) 14.4 H INR (0.90 - 1.17) 1.38 H Hematology CBC w Diff NO MAN DIFF REQ WBC (4.8 - 10.8 /CUMM) 14.2 H RBC (4.70 - 6.10 /CUMM) 4.02 L Hgb (14.0 - 18.0 G/DL) 11.3 L Hct (42 - 52 %) 35.0 L MCV (80.0 - 94.0 FL) 87.0 MCH (27.0 - 31.0 PG) 28.0 RDW (11.5 - 14.5 %) 16.2 H Plt Count (130 - 400 /CUMM) 143 MPV (7.4 - 10.4 FL) 8.6 Gran % (42.2 - 75.2 %) 76.4 H Lymphocytes % (20.5 - 51.1 %) 18.2 L Monocytes % (1.7 - 9.3 %) 4.8 Eosinophils % (0 - 5 %) 0.4 Basophils % (0.0 - 2.0 %) 0.2 Absolute Granulocytes (1.4 - 6.5 /CUMM) 10.8 H Absolute Lymphocytes (1.2 - 3.4 /CUMM) 2.6 Absolute Monocytes (0.10 - 0.60 /CUMM) 0.7 H Absolute Eosinophils (0.0 - 0.7 /CUMM) 0.1 Absolute Basophils (0.0 - 0.2 /CUMM) 0 PUBS MCHC (33.0 - 37.0 G/DL) 32.2 L Miscellaneous Phlebotomy Draw Site RIGHT RADIAL 07/11 2201 Chemistry Sodium (137 - 145 mmol/L) 143 Potassium (3.5 - 5.1 mmol/L) 4.0 Chloride (98 - 107 mmol/L) 117 H Carbon Dioxide (22 - 30 mmol/L) 17 L Anion Gap (5 - 16) 9 BUN (9 - 20 mg/dL) 58 H Creatinine (0.7 - 1.2 mg/dL) 3.3 H Estimated GFR (>60 ml/min) 18 L Glucose (65 - 99 mg/dL) 181 H Lactic Acid (0.7 - 2.1 mmol/L) 2.1 Calcium (8.4 - 10.2 mg/dL) 7.1 L Phosphorus (2.5 - 4.5 mg/dL) 3.9 Magnesium (1.6 - 2.3 mg/dL) 2.2 Total Bilirubin (0.2 - 1.3 mg/dL) 0.5 AST (17 - 59 U/L) 28 ALT (21 - 72 U/L) 31 Albumin (3.5 - 5.0 g/dL) 1.6 L Hematology CBC w Diff NO MAN DIFF REQ WBC (4.8 - 10.8 /CUMM) 14.1 H RBC (4.70 - 6.10 /CUMM) 4.10 L Hgb (14.0 - 18.0 G/DL) 11.8 L Hct (42 - 52 %) 35.7 L MCV (80.0 - 94.0 FL) 87.1 MCH (27.0 - 31.0 PG) 28.8 RDW (11.5 - 14.5 %) 16.7 H Plt Count (130 - 400 /CUMM) 157 MPV (7.4 - 10.4 FL) 9.1 Gran % (42.2 - 75.2 %) 75.1 Lymphocytes % (20.5 - 51.1 %) 17.8 L Monocytes % (1.7 - 9.3 %) 6.8 Eosinophils % (0 - 5 %) 0.2 Basophils % (0.0 - 2.0 %) 0.1 Absolute Granulocytes (1.4 - 6.5 /CUMM) 10.6 H Absolute Lymphocytes (1.2 - 3.4 /CUMM) 2.5 Absolute Monocytes (0.10 - 0.60 /CUMM) 1.0 H Absolute Eosinophils (0.0 - 0.7 /CUMM) 0 Absolute Basophils (0.0 - 0.2 /CUMM) 0 PUBS MCHC (33.0 - 37.0 G/DL) 33.0 Last 24 Hours of Les Results: OR culture labeled peritoneal fluid July 09 negative Blood cultures 2 July 09 negative Sputum culture July 10 negative Recent Imaging Studies: Chest x-ray July 12, personally reviewed, reveals no focal consolidation Assessment/Plan Impression: Improving, now off pressors, with temperatures remaining normal and with renal function improving now 3 days status post exploratory laparotomy and Fabrizio patch for a perforated duodenal ulcer, with his final OR culture negative. Surgery's concern for an ongoing duodenal leak, given his continuous bilious output, is noted and a repeat CT with oral contrast has been recommended. His white blood cell count remains mildly elevated, though the bandemia has resolved , on Meropenem and, given his negative OR culture, his antibiotics can be adjusted. His urine culture did grow 20,000 colonies of Escherichia coli, of unclear significance, but this will be covered by his antibiotics. Suggestion: 1. Would pursue repeat CT with oral contrast per Surgery 2. Would pursue PICC so that the right IJ can be removed 3. Discontinue Meropenem 4. Begin Unasyn 3 g IV every 8 hours
[2017-07-12 12:00] VITALS: BP 112/60
--- NOTE | 2017-07-12 12:01 | PN- Nephrology ---
Assessment/Plan Assessment: 1. Acute kidney injury secondary to shock and abdominal sepsis, now nonoliguric. Serum creatinine now falling as his hemodynamics have improved. There is still ongoing fluid loss through his WILLEM drain. 2. Developing hypernatremia - currently mild 3. Status post patch repair of perforated duodenal ulcer with associated peritonitis Suggestion: 1. Agree with changing to hypotonic IV fluids 2. For CT scan later today; oral contrast is not a problem from renal standpoint 3. Antibiotic therapy per ID Subjective Subjective: Patient is still intubated, vented, awake and responsive. Afebrile, Tmax 100.1. I/O: 5345/4272 (1467 urine). Creatinine down to 2.6, sodium up to 146, potassium 3.9, bicarbonate 17, phosphorus 3.5, magnesium 2.2, albumin 1.6, WBC 14.2. Objective Vital Signs and I&Os Vital Signs Date Time Temp Pulse Resp B/P B/P Pulse O2 O2 Flow FiO2 Mean Ox Delivery Rate 07/12 831 40 07/12 800 96 Ventilator 40% 07/12 800 98.2 69 21 98/56 96 Ventilator 40% 07/12 0628 40 07/12 0400 93 Ventilator 40% 07/12 0354 40 07/12 0037 40 07/12 0000 94 Ventilator 40% 07/11 2300 97.7 72 23 107/47 93 Ventilator 40% 07/11 2212 40 07/11 2000 94 Ventilator 40% 07/11 1906 100/52 07/11 1905 40 07/11 1625 40 07/11 1600 95 Ventilator 40% 07/11 1600 97.9 82 24 92/48 95 Ventilator 40% 07/11 1453 74 96/50 07/11 1411 45 07/11 1200 95 Ventilator 45% 07/11 1200 99.5 84 33 102/54 95 Ventilator 45% Intake & Output 07/12 1600 07/12 0400 07/11 1600 07/11 0400 07/10 0400 Intake Total 1295 1356 3989 2180 7465.3 3590 Output Total 1825 1425 2847 1053 1668 467 Balance -530 -69 1142 1127 5797.3 3123 Intake, IV 1295 1356 3989 2180 7465.3 3590 Intake, Oral 0 0 0 Intake, Other 0 Number 0 0 0 Bowel Movements Output, 2117 844 4529 790 1205 230 Drainage Output, 0 50 300 200 Gastric Drainage Output, Other 920 Output, Urine 825 600 867 213 163 37 Patient 275 lb 277 lb Weight Weight Bed scale Measurement Method Physical Exam: General: Well-developed, obese white male, intubated, ventilated Skin: No rash or jaundice HEENT: Conjunctivae pink, sclerae anicteric Neck: Intubated, without masses or adenopathy Chest: Clear anterolaterally Heart: Regular rate and rhythm without S3 or rub, heart sounds distant Abdomen: Obese, soft, tender, without palpable masses Extremities: Positive edema without cyanosis, chronic lower extremity skin changes, dressings intact Neuro: Arousable, follows simple commands, no focal findings, no asterixis or myoclonus Results Pertinent Lab Results: Laboratory Tests 07/12 07/12 0530 0348 Blood Gas pH (7.35 - 7.45 PH) 7.38 pCO2 (35 - 45 TORR) 31 L pO2 (80 - 100 TORR) 76 L HCO3 (21 - 28 MEQ/L) 18 L ABG O2 Sat (Measured) (>96.0 %) 93.0 L P-50 (Temp Corrected) Y Carboxyhemoglobin (1.5 - 5.0 %) 0.1 L O2 Concentration % 40% Temperature (97.0 - 100.0 FARH) 99.3 Respiration Rate (BPM) 20 O2 Delivery Method ESPRIT Vent Mode AC Expiratory Pressure (CMH2O/P) 5 Tidal Volume (CC) 600 Chemistry Sodium (137 - 145 mmol/L) 146 H Potassium (3.5 - 5.1 mmol/L) 3.9 Chloride (98 - 107 mmol/L) 121 H Carbon Dioxide (22 - 30 mmol/L) 17 L Anion Gap (5 - 16) 7 BUN (9 - 20 mg/dL) 54 H Creatinine (0.7 - 1.2 mg/dL) 2.6 H Estimated GFR (>60 ml/min) 24 L Glucose (65 - 99 mg/dL) 170 H Calcium (8.4 - 10.2 mg/dL) 7.1 L Phosphorus (2.5 - 4.5 mg/dL) 3.5 Magnesium (1.6 - 2.3 mg/dL) 2.2 Total Bilirubin (0.2 - 1.3 mg/dL) 0.5 AST (17 - 59 U/L) 29 ALT (21 - 72 U/L) 32 Albumin (3.5 - 5.0 g/dL) 1.6 L Coagulation PT (9.4 - 12.5 SEC) 14.4 H INR (0.90 - 1.17) 1.38 H Hematology CBC w Diff NO MAN DIFF REQ WBC (4.8 - 10.8 /CUMM) 14.2 H RBC (4.70 - 6.10 /CUMM) 4.02 L Hgb (14.0 - 18.0 G/DL) 11.3 L Hct (42 - 52 %) 35.0 L MCV (80.0 - 94.0 FL) 87.0 MCH (27.0 - 31.0 PG) 28.0 RDW (11.5 - 14.5 %) 16.2 H Plt Count (130 - 400 /CUMM) 143 MPV (7.4 - 10.4 FL) 8.6 Gran % (42.2 - 75.2 %) 76.4 H Lymphocytes % (20.5 - 51.1 %) 18.2 L Monocytes % (1.7 - 9.3 %) 4.8 Eosinophils % (0 - 5 %) 0.4 Basophils % (0.0 - 2.0 %) 0.2 Absolute Granulocytes (1.4 - 6.5 /CUMM) 10.8 H Absolute Lymphocytes (1.2 - 3.4 /CUMM) 2.6 Absolute Monocytes (0.10 - 0.60 /CUMM) 0.7 H Absolute Eosinophils (0.0 - 0.7 /CUMM) 0.1 Absolute Basophils (0.0 - 0.2 /CUMM) 0 PUBS MCHC (33.0 - 37.0 G/DL) 32.2 L Miscellaneous Phlebotomy Draw Site RIGHT RADIAL 07/11 07/11 2201 1104 Chemistry Sodium (137 - 145 mmol/L) 143 Potassium (3.5 - 5.1 mmol/L) 4.0 Chloride (98 - 107 mmol/L) 117 H Carbon Dioxide (22 - 30 mmol/L) 17 L Anion Gap (5 - 16) 9 BUN (9 - 20 mg/dL) 58 H Creatinine (0.7 - 1.2 mg/dL) 3.3 H Estimated GFR (>60 ml/min) 18 L Glucose (65 - 99 mg/dL) 181 H Lactic Acid (0.7 - 2.1 mmol/L) 2.1 Calcium (8.4 - 10.2 mg/dL) 7.1 L Phosphorus (2.5 - 4.5 mg/dL) 3.9 Magnesium (1.6 - 2.3 mg/dL) 2.2 Total Bilirubin (0.2 - 1.3 mg/dL) 0.5 AST (17 - 59 U/L) 28 ALT (21 - 72 U/L) 31 Albumin (3.5 - 5.0 g/dL) 1.6 L Hematology CBC w Diff NO MAN DIFF REQ WBC (4.8 - 10.8 /CUMM) 14.1 H RBC (4.70 - 6.10 /CUMM) 4.10 L Hgb (14.0 - 18.0 G/DL) 11.8 L Hct (42 - 52 %) 35.7 L MCV (80.0 - 94.0 FL) 87.1 MCH (27.0 - 31.0 PG) 28.8 RDW (11.5 - 14.5 %) 16.7 H Plt Count (130 - 400 /CUMM) 157 MPV (7.4 - 10.4 FL) 9.1 Gran % (42.2 - 75.2 %) 75.1 Lymphocytes % (20.5 - 51.1 %) 17.8 L Monocytes % (1.7 - 9.3 %) 6.8 Eosinophils % (0 - 5 %) 0.2 Basophils % (0.0 - 2.0 %) 0.1 Absolute Granulocytes (1.4 - 6.5 /CUMM) 10.6 H Absolute Lymphocytes (1.2 - 3.4 /CUMM) 2.5 Absolute Monocytes (0.10 - 0.60 /CUMM) 1.0 H Absolute Eosinophils (0.0 - 0.7 /CUMM) 0 Absolute Basophils (0.0 - 0.2 /CUMM) 0 PUBS MCHC (33.0 - 37.0 G/DL) 33.0 Urines Urinalysis HEAVY H Urine Color (YEL,AMB,STR) YEL Urine Clarity (CLEAR) HAZY H Urine pH (5.0 - 8.0) 5.5 Ur Specific [place] (1.001 - 1.035) 1.025 Urine Protein (NEG,<30 MG/DL) TRACE H Urine Ketones (NEG) NEG Urine Nitrite (NEG) NEG Urine Bilirubin (NEG) NEG Urine Urobilinogen (0.1 - 1.0 EU/dl) 0.2 Ur Leukocyte Esterase (NEG) NEG Ur Microscopic SEDIMENT EXAMINED Urine RBC (0 - 5 /HPF) 25-50 H Urine WBC (0 - 2 /HPF) 3-5 H Ur Epithelial Cells (NONE,FEW) RARE Urine Bacteria (NEG/NONE) MOD H Granular Casts (NONE /LPF) 1-3 H Urine Hemoglobin (NEG) LARGE H Urine Glucose (N MG/DL) 250 H 07/11 07/11 0605 0400 Blood Gas pH (7.35 - 7.45 PH) 7.38 pCO2 (35 - 45 TORR) 30 L pO2 (80 - 100 TORR) 94 HCO3 (21 - 28 MEQ/L) 17 L ABG O2 Sat (Measured) (>96.0 %) 97.0 P-50 (Temp Corrected) N Carboxyhemoglobin (1.5 - 5.0 %) 0.3 L O2 Concentration % .45 Respiration Rate (BPM) 25 O2 Delivery Method VENT Vent Mode A/C Expiratory Pressure (CMH2O/P) 5 Tidal Volume (CC) 600 Chemistry Sodium (137 - 145 mmol/L) 144 Potassium (3.5 - 5.1 mmol/L) 4.2 Chloride (98 - 107 mmol/L) 115 H Carbon Dioxide (22 - 30 mmol/L) 16 L Anion Gap (5 - 16) 13 BUN (9 - 20 mg/dL) 60 H Creatinine (0.7 - 1.2 mg/dL) 4.2 H Estimated GFR (>60 ml/min) 14 L Glucose (65 - 99 mg/dL) 216 H Lactic Acid (0.7 - 2.1 mmol/L) 2.3 H Calcium (8.4 - 10.2 mg/dL) 6.7 L Phosphorus (2.5 - 4.5 mg/dL) 4.2 Magnesium (1.6 - 2.3 mg/dL) 2.2 Total Bilirubin (0.2 - 1.3 mg/dL) 0.5 AST (17 - 59 U/L) 20 ALT (21 - 72 U/L) 22 Albumin (3.5 - 5.0 g/dL) 1.7 L Coagulation PT (9.4 - 12.5 SEC) 16.0 H INR (0.90 - 1.17) 1.53 H Hematology CBC w Diff MAN DIFF ORDERED WBC (4.8 - 10.8 /CUMM) 14.8 H RBC (4.70 - 6.10 /CUMM) 4.47 L Hgb (14.0 - 18.0 G/DL) 12.7 L Hct (42 - 52 %) 39.0 L MCV (80.0 - 94.0 FL) 87.3 MCH (27.0 - 31.0 PG) 28.3 RDW (11.5 - 14.5 %) 16.6 H Plt Count (130 - 400 /CUMM) 184 MPV (7.4 - 10.4 FL) 8.9 Gran % (42.2 - 75.2 %) 67.5 Lymphocytes % (20.5 - 51.1 %) 25.5 Monocytes % (1.7 - 9.3 %) 6.5 Eosinophils % (0 - 5 %) 0.1 Basophils % (0.0 - 2.0 %) 0.4 Absolute Granulocytes (1.4 - 6.5 /CUMM) 10.0 H Segmented Neutrophils (42.2 - 75.2 %) 68 Band Neutrophils (0.0 - 5.0 %) 5 Absolute Lymphocytes (1.2 - 3.4 /CUMM) 3.8 H Lymphocytes (20.5 - 51.1 %) 26 Monocytes (1.7 - 9.3 %) 1 L Absolute Monocytes (0.10 - 0.60 /CUMM) 1.0 H Absolute Eosinophils (0.0 - 0.7 /CUMM) 0 Absolute Basophils (0.0 - 0.2 /CUMM) 0.1 Platelet Estimate (ADEQUATE) ADEQUATE Normocytic RBCs VERIFIED Normochromic RBCs VERIFIED PUBS MCHC (33.0 - 37.0 G/DL) 32.4 L Miscellaneous Phlebotomy Draw Site LEFT BRACHIAL 07/10 07/10 07/10 07/10 2120 1905 1820 1520 Blood Gas pH (7.35 - 7.45 PH) 7.39 pCO2 (35 - 45 TORR) 29 L pO2 (80 - 100 TORR) 86 HCO3 (21 - 28 MEQ/L) 17 L ABG O2 Sat (Measured) (>96.0 %) 96.0 P-50 (Temp Corrected) N Carboxyhemoglobin (1.5 - 5.0 %) 0.6 L O2 Concentration % 45% Temperature (97.0 - 100.0 FARH) 99.0 Respiration Rate (BPM) 25 O2 Delivery Method ESPRIT Vent Mode AC Expiratory Pressure (CMH2O/P) 5 Tidal Volume (CC) 600 Chemistry Sodium (137 - 145 mmol/L) 142 Potassium (3.5 - 5.1 mmol/L) 4.4 Chloride (98 - 107 mmol/L) 114 H Carbon Dioxide (22 - 30 mmol/L) 16 L Anion Gap (5 - 16) 13 BUN (9 - 20 mg/dL) 54 H Creatinine (0.7 - 1.2 mg/dL) 4.0 H Estimated GFR (>60 ml/min) 15 L Glucose (65 - 99 mg/dL) 258 H Lactic Acid (0.7 - 2.1 mmol/L) 2.9 H 3.3 H 3.3 H Calcium (8.4 - 10.2 mg/dL) 6.3 L Phosphorus (2.5 - 4.5 mg/dL) 4.0 Magnesium (1.6 - 2.3 mg/dL) 2.2 Total Bilirubin (0.2 - 1.3 mg/dL) 0.5 AST (17 - 59 U/L) 23 ALT (21 - 72 U/L) 24 Albumin (3.5 - 5.0 g/dL) 1.7 L Miscellaneous Phlebotomy Draw Site LEFT BRACHIAL Serology Hepatitis A IgM Ab (NONREACTIVE) NONREACTIVE Hep Bs Antigen (NONREACTIVE) NONREACTIVE Hep B Core IgM Ab Conf (NONREACTIVE) NONREACTIVE Hepatitis C Antibody (NONREACTIVE) NONREACTIVE 07/10 07/10 07/10 1245 1245 1158 Chemistry Sodium (137 - 145 mmol/L) 143 Potassium (3.5 - 5.1 mmol/L) 4.4 Chloride (98 - 107 mmol/L) 113 H Carbon Dioxide (22 - 30 mmol/L) 16 L Anion Gap (5 - 16) 13 BUN (9 - 20 mg/dL) 50 H Creatinine (0.7 - 1.2 mg/dL) 3.7 H Estimated GFR (>60 ml/min) 16 L Glucose (65 - 99 mg/dL) 241 H Lactic Acid (0.7 - 2.1 mmol/L) 4.0 H Calcium (8.4 - 10.2 mg/dL) 6.5 L Phosphorus (2.5 - 4.5 mg/dL) 3.8 Magnesium (1.6 - 2.3 mg/dL) 1.7 Total Bilirubin (0.2 - 1.3 mg/dL) 0.5 AST (17 - 59 U/L) 25 ALT (21 - 72 U/L) 24 Albumin (3.5 - 5.0 g/dL) 1.8 L Coagulation PT (9.4 - 12.5 SEC) 17.7 H INR (0.90 - 1.17) 1.69 H Urines Urinalysis MOD H Urine Color (YEL,AMB,STR) ORANG H Urine Clarity (CLEAR) CLDY H Urine pH (5.0 - 8.0) 5.0 Ur Specific [place] (1.001 - 1.035) 1.025 Urine Protein (NEG,<30 MG/DL) 100 H Urine Ketones (NEG) TRACE H Urine Nitrite (NEG) NEG Urine Bilirubin (NEG) NEG@ICTO Urine Urobilinogen (0.1 - 1.0 EU/dl) 0.2 Ur Leukocyte Esterase (NEG) NEG Ur Microscopic SEDIMENT EXAMINED Urine RBC (0 - 5 /HPF) >75 H Urine WBC (0 - 2 /HPF) 1-3 H Ur Epithelial Cells (NONE,FEW) RARE Urine Bacteria (NEG/NONE) FEW H Granular Casts (NONE /LPF) RARE H Urine Mucus (FEW,NONE) FEW Urine Hemoglobin (NEG) LARGE H Urine Osmolality (300 - 1000 MOSM/KG) 375 Ur Random Creatinine (mg/dL) 141.8 Ur Random Sodium (30 - 90 mmol/L) 38 Ur Random Potassium (mmol/L) 46.3 Fraction Sodium Excret (<1% %) 0.7 Urine Glucose (N MG/DL) NEG 07/10 07/10 07/10 07/10 1112 0845 0555 0500 Blood Gas pH (7.35 - 7.45 PH) 7.41 pCO2 (35 - 45 TORR) 27 L pO2 (80 - 100 TORR) 93 HCO3 (21 - 28 MEQ/L) 17 L ABG O2 Sat (Measured) (>96.0 %) 97.0 P-50 (Temp Corrected) N Carboxyhemoglobin (1.5 - 5.0 %) 0.6 L O2 Concentration % .40 Respiration Rate (BPM) 16 O2 Delivery Method VENT Vent Mode A/C Expiratory Pressure (CMH2O/P) 5 Tidal Volume (CC) 600 Chemistry Sodium (137 - 145 mmol/L) 142 Potassium (3.5 - 5.1 mmol/L) 4.9 Chloride (98 - 107 mmol/L) 110 H Carbon Dioxide (22 - 30 mmol/L) 17 L Anion Gap (5 - 16) 15 BUN (9 - 20 mg/dL) 48 H Creatinine (0.7 - 1.2 mg/dL) 3.7 H Estimated GFR (>60 ml/min) 16 L BUN/Creatinine Ratio (7 - 25 %) 13.0 Lactic Acid (0.7 - 2.1 mmol/L) 4.6 H 4.1 H Ionized Calcium Pending Phosphorus (2.5 - 4.5 mg/dL) 3.8 Magnesium (1.6 - 2.3 mg/dL) 1.8 Troponin I (<0.11 ng/ml) 0.07 TSH (0.270 - 4.200 uIU/mL) 2.210 Cortisol AM Sample (4.46 - 22.7 ug/dL) 64.1 H Miscellaneous Phlebotomy Draw Site [place] 07/10 07/10 07/10 0500 0230 0230 Chemistry Sodium (137 - 145 mmol/L) 141 Potassium (3.5 - 5.1 mmol/L) 4.8 5.0 Chloride (98 - 107 mmol/L) 114 H Carbon Dioxide (22 - 30 mmol/L) 14 L Anion Gap (5 - 16) 13 BUN (9 - 20 mg/dL) 45 H Creatinine (0.7 - 1.2 mg/dL) 3.2 H Estimated GFR (>60 ml/min) 19 L Glucose (65 - 99 mg/dL) 268 H Lactic Acid (0.7 - 2.1 mmol/L) 4.4 H Calcium (8.4 - 10.2 mg/dL) 6.8 L Phosphorus (2.5 - 4.5 mg/dL) 3.7 Magnesium (1.6 - 2.3 mg/dL) 1.8 Total Bilirubin (0.2 - 1.3 mg/dL) 0.6 AST (17 - 59 U/L) 22 ALT (21 - 72 U/L) 27 Albumin (3.5 - 5.0 g/dL) 1.8 L Hematology CBC w Diff MAN DIFF ORDERED WBC (4.8 - 10.8 /CUMM) 15.1 H RBC (4.70 - 6.10 /CUMM) 5.37 Hgb (14.0 - 18.0 G/DL) 15.2 Hct (42 - 52 %) 47.0 MCV (80.0 - 94.0 FL) 87.4 MCH (27.0 - 31.0 PG) 28.4 RDW (11.5 - 14.5 %) 16.3 H Plt Count (130 - 400 /CUMM) 199 MPV (7.4 - 10.4 FL) 9.7 Gran % (42.2 - 75.2 %) 60.5 Lymphocytes % (20.5 - 51.1 %) 31.1 Monocytes % (1.7 - 9.3 %) 7.9 Eosinophils % (0 - 5 %) 0.1 Basophils % (0.0 - 2.0 %) 0.4 Absolute Granulocytes (1.4 - 6.5 /CUMM) 9.1 H Segmented Neutrophils (42.2 - 75.2 %) 26 L Band Neutrophils (0.0 - 5.0 %) 24 H Absolute Lymphocytes (1.2 - 3.4 /CUMM) 4.7 H Lymphocytes (20.5 - 51.1 %) 38 Monocytes (1.7 - 9.3 %) 12 H Absolute Monocytes (0.10 - 0.60 /CUMM) 1.2 H Absolute Eosinophils (0.0 - 0.7 /CUMM) 0 Absolute Basophils (0.0 - 0.2 /CUMM) 0.1 Platelet Estimate (ADEQUATE) VERIFIED BY SMEAR Poikilocytosis 1+ Anisocytosis 1+ [place] Cells 1+ PUBS MCHC (33.0 - 37.0 G/DL) 32.5 L 07/10 07/09 07/09 0020 2343 2250 Blood Gas pH (7.35 - 7.45 PH) 7.34 L pCO2 (35 - 45 TORR) 25 L pO2 (80 - 100 TORR) 124 H HCO3 (21 - 28 MEQ/L) 13 L ABG O2 Sat (Measured) (>96.0 %) 97.0 P-50 (Temp Corrected) N Carboxyhemoglobin (1.5 - 5.0 %) 0.8 L O2 Concentration % 50% Temperature (97.0 - 100.0 FARH) 99.6 Respiration Rate (BPM) 16 O2 Delivery Method ESPRIT Vent Mode AC Expiratory Pressure (CMH2O/P) 5 Tidal Volume (CC) 600 Chemistry Sodium (137 - 145 mmol/L) 141 Potassium (3.5 - 5.1 mmol/L) 5.5 H Chloride (98 - 107 mmol/L) 113 H Carbon Dioxide (22 - 30 mmol/L) 13 L Anion Gap (5 - 16) 15 BUN (9 - 20 mg/dL) 42 H Creatinine (0.7 - 1.2 mg/dL) 2.6 H Estimated GFR (>60 ml/min) 24 L Glucose (65 - 99 mg/dL) 240 H Lactic Acid (0.7 - 2.1 mmol/L) 4.1 H Calcium (8.4 - 10.2 mg/dL) 7.1 L Phosphorus (2.5 - 4.5 mg/dL) 4.6 H Magnesium (1.6 - 2.3 mg/dL) 1.9 Total Bilirubin (0.2 - 1.3 mg/dL) 0.8 AST (17 - 59 U/L) 24 ALT (21 - 72 U/L) 22 Troponin I (<0.11 ng/ml) 0.05 Albumin (3.5 - 5.0 g/dL) 2.2 L Hematology CBC w Diff MAN DIFF ORDERED WBC (4.8 - 10.8 /CUMM) 14.1 H RBC (4.70 - 6.10 /CUMM) 5.76 Hgb (14.0 - 18.0 G/DL) 16.3 Hct (42 - 52 %) 50.3 MCV (80.0 - 94.0 FL) 87.4 MCH (27.0 - 31.0 PG) 28.3 RDW (11.5 - 14.5 %) 15.9 H Plt Count (130 - 400 /CUMM) 202 MPV (7.4 - 10.4 FL) 9.2 Gran % (42.2 - 75.2 %) 58.6 Lymphocytes % (20.5 - 51.1 %) 34.9 Monocytes % (1.7 - 9.3 %) 6.4 Eosinophils % (0 - 5 %) 0 Basophils % (0.0 - 2.0 %) 0.1 Absolute Granulocytes (1.4 - 6.5 /CUMM) 8.3 H Segmented Neutrophils (42.2 - 75.2 %) 24 L Band Neutrophils (0.0 - 5.0 %) 17 H Absolute Lymphocytes (1.2 - 3.4 /CUMM) 4.9 H Lymphocytes (20.5 - 51.1 %) 53 H Monocytes (1.7 - 9.3 %) 5 Absolute Monocytes (0.10 - 0.60 /CUMM) 0.9 H Absolute Eosinophils (0.0 - 0.7 /CUMM) 0 Absolute Basophils (0.0 - 0.2 /CUMM) 0 Metamyelocytes (0.0 - 1.0 %) 1 Platelet Estimate (ADEQUATE) ADEQUATE Normocytic RBCs VERIFIED Normochromic RBCs VERIFIED PUBS MCHC (33.0 - 37.0 G/DL) 32.3 L Miscellaneous Phlebotomy Draw Site [place] 07/09 07/09 07/09 2200 2003 2003 Chemistry Sodium (137 - 145 mmol/L) 141 Potassium (3.5 - 5.1 mmol/L) 5.0 Chloride (98 - 107 mmol/L) 112 H Carbon Dioxide (22 - 30 mmol/L) 14 L Anion Gap (5 - 16) 15 BUN (9 - 20 mg/dL) 36 H Creatinine (0.7 - 1.2 mg/dL) 2.2 H Estimated GFR (>60 ml/min) 29 L Glucose (65 - 99 mg/dL) 233 H Lactic Acid (0.7 - 2.1 mmol/L) Cancelled 4.3 H Calcium (8.4 - 10.2 mg/dL) 7.1 L Phosphorus (2.5 - 4.5 mg/dL) 5.0 H Magnesium (1.6 - 2.3 mg/dL) 1.8 Total Bilirubin (0.2 - 1.3 mg/dL) 0.7 AST (17 - 59 U/L) 24 ALT (21 - 72 U/L) 29 Troponin I (<0.11 ng/ml) 0.05 Albumin (3.5 - 5.0 g/dL) 2.2 L Hematology CBC w Diff MAN DIFF ORDERED WBC (4.8 - 10.8 /CUMM) 13.5 H RBC (4.70 - 6.10 /CUMM) 5.63 Hgb (14.0 - 18.0 G/DL) 15.9 Hct (42 - 52 %) 49.5 MCV (80.0 - 94.0 FL) 87.9 MCH (27.0 - 31.0 PG) 28.3 RDW (11.5 - 14.5 %) 16.1 H Plt Count (130 - 400 /CUMM) ND MPV (7.4 - 10.4 FL) ND Gran % (42.2 - 75.2 %) 50.1 Lymphocytes % (20.5 - 51.1 %) 40.2 Monocytes % (1.7 - 9.3 %) 9.7 H Eosinophils % (0 - 5 %) 0 Basophils % (0.0 - 2.0 %) 0 Absolute Granulocytes (1.4 - 6.5 /CUMM) 6.8 H Segmented Neutrophils (42.2 - 75.2 %) 27 L Band Neutrophils (0.0 - 5.0 %) 23 H Absolute Lymphocytes (1.2 - 3.4 /CUMM) 5.4 H Lymphocytes (20.5 - 51.1 %) 39 Monocytes (1.7 - 9.3 %) 7 Absolute Monocytes (0.10 - 0.60 /CUMM) 1.3 H Absolute Eosinophils (0.0 - 0.7 /CUMM) 0 Absolute Basophils (0.0 - 0.2 /CUMM) 0 Metamyelocytes (0.0 - 1.0 %) 4 H Platelet Estimate (ADEQUATE) ADEQUATE Anisocytosis 1+ PUBS MCHC (33.0 - 37.0 G/DL) 32.2 L Other Body Source Fld Total RBCs Counted (%) 100 07/09 07/09 07/09 1905 1320 1320 Blood Gas pH (7.35 - 7.45 PH) 7.22 *L pCO2 (35 - 45 TORR) 38 pO2 (80 - 100 TORR) 118 H HCO3 (21 - 28 MEQ/L) 15 L ABG O2 Sat (Measured) (>96.0 %) 96.0 P-50 (Temp Corrected) N Carboxyhemoglobin (1.5 - 5.0 %) 1.0 L O2 Concentration % 60 Temperature (97.0 - 100.0 FARH) 98.1 Respiration Rate (BPM) 16 O2 Delivery Method ESPRIT Vent Mode AC Expiratory Pressure (CMH2O/P) 5 Tidal Volume (CC) 600 Chemistry Sodium (137 - 145 mmol/L) 143 Potassium (3.5 - 5.1 mmol/L) 4.6 Chloride (98 - 107 mmol/L) 107 Carbon Dioxide (22 - 30 mmol/L) 12 L Anion Gap (5 - 16) 24 H BUN (9 - 20 mg/dL) 27 H Creatinine (0.7 - 1.2 mg/dL) 1.7 H Estimated GFR (>60 ml/min) 39 L Glucose (65 - 99 mg/dL) 312 H Lactic Acid (0.7 - 2.1 mmol/L) 11.0 H Calcium (8.4 - 10.2 mg/dL) 9.5 Phosphorus (2.5 - 4.5 mg/dL) 4.1 Magnesium (1.6 - 2.3 mg/dL) 1.9 Total Bilirubin (0.2 - 1.3 mg/dL) 1.2 AST (17 - 59 U/L) 26 ALT (21 - 72 U/L) 19 L Troponin I (<0.11 ng/ml) 0.03 Albumin (3.5 - 5.0 g/dL) 3.8 Coagulation PT (9.4 - 12.5 SEC) 14.5 H INR (0.90 - 1.17) 1.39 H Hematology CBC w Diff MAN DIFF ORDERED WBC (4.8 - 10.8 /CUMM) 14.2 H RBC (4.70 - 6.10 /CUMM) 6.39 H Hgb (14.0 - 18.0 G/DL) 17.9 Hct (42 - 52 %) 56.5 H MCV (80.0 - 94.0 FL) 88.5 MCH (27.0 - 31.0 PG) 28.0 RDW (11.5 - 14.5 %) 15.8 H Plt Count (130 - 400 /CUMM) 200 MPV (7.4 - 10.4 FL) 10.7 H Gran % (42.2 - 75.2 %) 61.7 Lymphocytes % (20.5 - 51.1 %) 32.4 Monocytes % (1.7 - 9.3 %) 5.6 Eosinophils % (0 - 5 %) 0 Basophils % (0.0 - 2.0 %) 0.3 Absolute Granulocytes (1.4 - 6.5 /CUMM) 8.7 H Segmented Neutrophils (42.2 - 75.2 %) 31 L Band Neutrophils (0.0 - 5.0 %) 24 H Absolute Lymphocytes (1.2 - 3.4 /CUMM) 4.6 H Lymphocytes (20.5 - 51.1 %) 39 Monocytes (1.7 - 9.3 %) 6 Absolute Monocytes (0.10 - 0.60 /CUMM) 0.8 H Absolute Eosinophils (0.0 - 0.7 /CUMM) 0 Absolute Basophils (0.0 - 0.2 /CUMM) 0 Platelet Estimate (ADEQUATE) VERIFIED BY SMEAR Polychromasia 1+ Anisocytosis 1+ PUBS MCHC (33.0 - 37.0 G/DL) 31.6 L Miscellaneous Phlebotomy Draw Site DEANA
[2017-07-12 16:00] VITALS: BP 101/49
--- NOTE | 2017-07-12 17:33 | CT SCAN REPORT ---
EXAMINATION: CT ABDOMEN AND PELVIS WITHOUT CONTRAST CLINICAL INFORMATION: PERSISTENT HIGH AMOUNT BILIARY DRAINAGE THROUGH WILLEM DRAIN : FOLLOW UP FREE FLUID Presumptive Dx: FOLLOW UP - S/P DUODENAL PERF REPAIR 07/09 COMPARISON: CT abdomen pelvis 07/08/2017 TECHNIQUE: Multidetector volumetric imaging was performed from the superior aspect of the liver through the pubic symphysis following administration of oral contrast. Sagittal and coronal reformatted images were obtained on the technologist's workstation. No IV contrast. DLP: 1556.64 mGy-cm FINDINGS: Exam was performed with the arms at the patient's side which causes streak artifact. LUNG BASES: Bilateral pleural effusions present layering dependently. Pacemaker leads in heart. Status post median sternotomy. Consolidation/atelectasis at the dependent right and left lung base. Nasogastric tube passes into the stomach. LIVER, GALLBLADDER, AND BILIARY TREE: The liver is normal in size, shape, and attenuation. No focal hepatic lesion or biliary ductal dilatation is present. The gallbladder is unremarkable with no evidence of radiopaque gallstones, gallbladder wall thickening, or obvious pericholecystic inflammatory changes. PANCREAS: Unremarkable. SPLEEN: Unremarkable. ADRENAL GLANDS: Unremarkable. KIDNEYS AND URETERS: There are bilateral renal stones again seen similar to prior study in size and position. No ureteral stone and no hydroureter. BLADDER: Unremarkable. MESENTERY/GASTROINTESTINAL TRACT: Contrast opacifies the stomach. There is extravasated contrast in the upper abdomen around the root of the mesentery adjacent to the inferior liver tip, around the gallbladder and adjacent to the duodenum. There is free air predominantly in the upper abdomen. Findings are consistent with history of duodenal perforation with persistent leakage. There is a percutaneous drain with the catheter tip near the inferior tip of the right lobe of liver and lies within the contrast collecting in this area The distal small bowel loops are normal. There is diverticulosis of the colon most significant at the sigmoid. No diverticulitis. ABDOMINAL WALL: No significant hernia is appreciated. LYMPH NODES: Normal. VASCULAR: Atherosclerotic vascular wall calcification of aorta and iliac vessels. PELVIC VISCERA: Right total hip replacement causing streak artifact through pelvis. OSSEOUS STRUCTURES: Status post right total hip replacement. Degenerative spondylosis of the spine with disc height narrowing and endplate spurring of vertebrae. IMPRESSION: 1. There is extravasation of contrast and there is free air in the upper abdomen consistent with history of duodenal perforation with persistent leakage from the bowel. The percutaneous catheter in place in the right upper quadrant does lie within the largest collection near the tip of the right lobe of liver. 2. Bilateral pleural effusions with bibasilar infiltrate/atelectasis. This critical result was discussed with Dr. Hughes on 07/12/2017, 5:28 PM and it was ascertained that the content and urgency of the report was understood at the time of direct communication.
[2017-07-12 23:00] VITALS: BP 90/50
--- NOTE | 2017-07-12 23:03 | RADIOLOGY REPORT ---
EXAMINATION: CHEST 1 VIEW CLINICAL INFORMATION: Endotracheal tube placement. COMPARISON: Multiple prior exams are reviewed. The most recent is from the same day obtained at 0655 hours. TECHNIQUE: An AP view of the chest was obtained at 2235 hours. FINDINGS: The cardiac silhouette is enlarged, but stable. An endotracheal tube is in place. The tip is approximately 4 cm above the kika. A right central venous line is in unchanged position. Intact midline sternal wires are present. There are neither pleural effusions nor pneumothoraces. There are no consolidations. IMPRESSION: Lines and tubes in place as stated above. No acute airspace disease.
--- NOTE | 2017-07-13 02:22 | RADIOLOGY REPORT ---
EXAMINATION: XR PORTABLE ABDOMEN CLINICAL INFORMATION: Confirm OG tube placement COMPARISON: Chest radiograph and CT abdomen from 07/12/2017 TECHNIQUE: AP view of the abdomen. FINDINGS: The enteric tube terminates in the stomach in appropriate positioning. Surgical dagoberto overlie the right abdomen. Right hip hemiarthroplasty noted with antibiotic femoral head component. Nonobstructive bowel gas pattern. Degenerative changes throughout the spine. IMPRESSION: Enteric tube terminating in the stomach.
[2017-07-13 06:19] LABS: ABSOLUTE BASOPHIL COUNT 0 /CUMM (0.0-0.2); ABSOLUTE EOSINOPHIL COUNT 0.1 /CUMM (0.0-0.7); ABSOLUTE LYMPH COUNT 2.7 /CUMM (1.2-3.4); ABSOLUTE MONOCYTE COUNT 0.8 /CUMM (0.10-0.60); BASOPHIL % 0.1 % (0.0-2.0); EOSINOPHIL % 0.5 % (0-5); GRANULOCYTE % 78.2 % (42.2-75.2); HEMATOCRIT 34.5 % (42-52); MEAN CORPUSCULAR HGB 28.1 PG (27.0-31.0); MEAN CORPUSCULAR HGB CONC 31.9 G/DL (33.0-37.0); MEAN CORPUSCULAR VOLUME 88.2 FL (80.0-94.0); MEAN PLATELET VOLUME 9.4 FL (7.4-10.4); PLATELET COUNT 155 /CUMM (130-400); RBC DISTRIBUTION WIDTH 16.6 % (11.5-14.5); RED BLOOD CELL CT 3.92 /CUMM (4.70-6.10); WHITE BLOOD CELL COUNT 16.7 /CUMM (4.8-10.8)
[2017-07-13 07:00] VITALS: BP 111/49
[2017-07-13 08:00] VITALS: BP 100/56
--- NOTE | 2017-07-13 08:16 | RADIOLOGY REPORT ---
EXAMINATION: XR PORTABLE CHEST CLINICAL INFORMATION: Follow-up COMPARISON: 07/12/2017 TECHNIQUE: Portable frontal view of the chest was obtained. FINDINGS: Endotracheal tube is approximately 5 cm above the kika. Right internal jugular central venous line appears to terminate at the level of the junction of the superior vena cava and right atrium. Patient has a large body habitus. Cardiac silhouette is mildly enlarged. There is a left pectoral region cardiac pacemaker/AICD with leads extending to the right atrium and right ventricle. No acute pulmonary edema or pneumothorax. Lung bases are suboptimally evaluated due to patient body habitus. The small pleural effusions and bibasilar atelectasis are suboptimally visualized. Visualized bones are intact. IMPRESSION: 1. Tubes/lines in satisfactory position. No pneumothorax. 2. Mild cardiomegaly without pulmonary edema. 3. Small pleural effusions and bibasilar atelectasis observed on the recent CT exam are difficult to detect on this single view chest radiograph.
--- NOTE | 2017-07-13 09:13 | PN- Resident CRCU ---
Subjective HPI/CRCU Issues: - Septic shock 2/2 perforated duodenal ulcer s/p Fabrizio patch POD Day #4 - Metabolic acidosis - Resolving - CAD s/p CABG - HFrEF with EF of 25% s/p AICD - PAF on Tikosyn not on AC - USMAN- Resolving - Acute respiratory failure curently intubated- Stable. 24 Hour Events: Vitals : SR 69-74, RR 22, BP 111/49. Afebrile. Accuchecks 187, 177. SAS 3-4. MV: AC 20, 600, 40, 5. 95%. I/t=6018/730 (8 hour) WILLEM drain output (8 hour) - 900. AB07/12/17 ABG 7.38/31/76/18 . 97% Overall improvement. CT with oral contrast yesterday revelaing of a possible leak and extravasation. Objective Vital Signs & I&O Last 8 Hrs of Vitals and I&O: Vitals : SR 69-74, RR 22, BP 111/49. Afebrile. Accuchecks 187, 177. SAS 3-4. Exam General Appearance: alert, comfortable Respiratory: normal breath sounds Cardiovascular: regular rate/rhythm Gastrointestinal: normal bowel sounds, soft Extremities: normal inspection Weaning Parameters NIF: 32 Minute Volume: 13.4 Resp rate: 22 Vt: 675 Heart Rate: 71 Weaning Schedule Start Time: 0820 Minute Volume: 12.7 Resp Rate: 26 Vt: 500 Heart Rate: 73 End Time: 1300 Minute Volume: 9.25 Resp Rate: 22 Vt: 578 Heart Rate: 77 Nutrition Nutrition: TPN rate Current Medications: Current Medications Sig/Buck Start time Last Medication Dose Route Stop Time Status Admin Acetaminophen 1,000 MG Q6H PRN 07/09 1900 AC 07/10 N/A 1 UNIT IV 1807 Ampicillin Sodium/ 3,000 MG Q8H 07/12 1800 AC 07/13 Sulbactam Sodium IV 1717 Sodium Chloride 100 ML Budesonide/ 2 PUF BID 07/09 2200 AC 07/12 Formoterol Fumarate INH 2225 Fat Emulsion 250 ML Q24H 07/13 1900 AC Intravenous IV 07/14 1859 Fentanyl Citrate 1,000 MCG Q24H 07/13 1000 AC Dextrose/Water 250 ML IV Fentanyl Citrate 1,000 MCG Q13H 07/10 2300 DC 07/13 Dextrose/Water 250 ML IV 0755 Heparin Sodium 5,000 UNIT Q8 07/10 0138 AC 07/13 (Porcine) SC 1336 Insulin Human Regular 4 UNITS .STK-MED ONE 07/13 0614 DC IV 07/13 0615 Insulin Human Regular 0 Q6 07/12 0600 07/13 SC 1336 Nystatin 1 GENE TID 07/09 2200 07/13 TOP 1717 Octreotide Acetate 500 MCG Q10H 07/13 1200 07/13 Dextrose/Water 500 ML IV 1317 Octreotide Acetate 50 MCG ONCE ONE 07/13 1200 DC 07/13 IV 07/13 1201 1317 Pantoprazole Sodium 40 MG BID 07/10 1016 07/13 IV 0755 Potassium Chloride 20 MEQ Q8H 07/12 0930 07/13 Dextrose/Sodium 1,000 ML IV 1717 Chloride Total Parenteral 1 UNIT ONE 07/13 1900 AC Nutrition IV 07/14 1859 Impression/Plan Impression/Problem List Impression: 76 year old gentleman PAF on Tikosyn, not on AC, 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 POD 2, continues to be intuibated and requiring MV support. Plan: #Post op respiratory support with Mechanical ventilation - Patient was intubated for surgery 07/09/17 and continues to remain mechanically ventilated. - Low dose Fentanyl for sedation - F/U ABG - Await IR intrvention for post-pylorus Ng tube placement. #Septic shock - 2/2 peritonitis from perforated duodenal ulcer - S/p fluid resuscitation and pressors. - Continue to hydrate with D5/1/2NS @ 125mls/hr. Goal to maintain CVP of 4-6 and or MAP of > 65mmHg. - Unasyn 3g q8. - Negative OR and blood cultures. #Hypotension - 2/2 septic shock - Titrate to maintain MAP > 65mmHg, and bolus with fluids with caution to maintain a CVP of 4-6. #CAD s/p CABG -F/u cardio recs - F/U limited Echo - F/U card recs #Hx of PAF on Tikosyn - Curently in NSR, and rate controlled - Continue to hold tikosyn. Cardio following. # Perforated duodenal ulcer - S/P Fabrizio repair yesterday with WILLEM drain - Status post IR pot-pylorus NG tube placement. Octreotide drip to counter increased drainage. - IV Protonix 40mg BID #Metabolic acidosis - 2/2 lactic acidosis from systemic hypoperfusion - Resolved - Continue IVF hydration #USMAN -Improving - Continue IVFs. - Continue to montior #Hypocalcemia -Corrected calcium for hypoalbumenia normal. Low ionized calcium. - Replete as needed #Hypernatremia - Cont D5 1/2 NS #Neuro - On Fentanyl; SAS of 3. - DVT prophylaxis - On heparin 5000iu TID SC - Diet - NPO - Code Status - Full Code Problem List: 1. Acute renal failure Pain Ratin Tomorrow's Labs & Rationales: Critically ill patient Plan DVT/Prophylaxis: mechanical, pharmacological
--- NOTE | 2017-07-13 09:14 | PN- CRCU ---
Subjective HPI/Critical Care Issues: Events and data reviewed BP stable Doing ok off the pressors / Did ok on psv trials Creat is trending down Wbc up Objective Current Medications: Current Medications Sig/Buck Start time Last Medication Dose Route Stop Time Status Admin Acetaminophen 1,000 MG Q6H PRN 07/09 1900 07/10 N/A 1 UNIT IV 1807 Ampicillin Sodium/ 3,000 MG Q8H 07/12 1800 07/13 Sulbactam Sodium IV 0113 Sodium Chloride 100 ML Budesonide/ 2 PUF BID 07/09 220 07/12 Formoterol Fumarate INH 2225 Dextrose/Sodium 1,000 ML Q5H 07/10 1900 DC 07/12 Chloride IV 0246 Fentanyl Citrate 1,000 MCG Q13H 07/10 2300 07/13 Dextrose/Water 250 ML IV 0755 Heparin Sodium 5,000 UNIT Q8 07/10 0138 07/13 (Porcine) SC 0616 Insulin Human Regular 0 Q6 07/12 0600 07/13 SC 0615 Meropenem 1 GM Q12H 07/11 1700 DC 07/12 IV 1537 Nystatin 1 GENE TID 07/09 2200 07/13 TOP 0755 Ondansetron HCl 4 MG ONCE ONE 07/12 1530 DC 07/12 IV 07/12 1531 1537 Pantoprazole Sodium 40 MG BID 07/10 1016 07/13 IV 0755 Potassium Chloride 20 MEQ Q8H 07/12 0930 07/13 Dextrose/Sodium 1,000 ML IV 0114 Chloride Potassium Chloride 20 MEQ Q8H 07/12 0915 DC Dextrose/Sodium 1,000 ML IV 07/12 1714 Chloride Vital Signs & I&O Last 24 Hrs of Vitals and I&O: Vital Signs Date Time Temp Pulse Resp B/P B/P Pulse O2 O2 Flow FiO2 Mean Ox Delivery Rate 07/13 823 40 07/13 07 98.4 69 21 111/49 95 Ventilator 40% 07/13 0555 40 07/13 0400 95 Ventilator 40% 07/13 0317 40 07/13 0044 40 07/13 0000 97 Ventilator 40% 07/12 2327 40 07/12 2300 97.5 68 20 90/50 97 Ventilator 40% 07/12 2051 40 07/12 2000 95 Ventilator 40% 07/12 1600 93 Ventilator 40% 07/12 1600 97.3 72 20 101/49 93 Ventilator 40% 07/12 1542 40 07/12 1303 40 07/12 1200 94 Ventilator 40% 07/12 1200 97.9 73 22 112/60 94 Ventilator 40% Intake & Output 07/13 1600 07/13 0800 07/13 0000 Intake Total 1200 1682 Output Total 1730 2030 Balance -530 -348 Intake, IV 1200 1232 Intake, Oral 0 Intake, Other 450 Output, 900 1155 Drainage Output, 100 150 Gastric Drainage Output, Urine 730 725 Impression/Plan Impression/Plan Impression/Plan: IMPRESSION: 1. There is extravasation of contrast and there is free air in the upper abdomen consistent with history of duodenal perforation with persistent leakage from the bowel. The percutaneous catheter in place in the right upper quadrant does lie within the largest collection near the tip of the right lobe of liver. 2. Bilateral pleural effusions with bibasilar infiltrate/atelectasis. This critical result was discussed with Dr. Hughes on 07/12/2017, 5:28 PM and it was ascertained that the content and urgency of the report was understood at the time of direct communication. DICTATED BY: LILIANA ACOSTA MD DATE/TIME DICTATED:07/12/171708 Afebrile. He is sedated but esponsive on the ventilator. Skin reveals no rash. HEENT negative. Neck supple with no adenopathy; right IJ triple-lumen catheter in place, with no inflammation at the site. Lungs decreased breath sounds bilaterally. Heart regular rhythm with no murmur. Abdomen is obese, distended, tender to palpation, Incision noted with a gabriela drain in the rt side Back no CVA tenderness. Extremities right hip incision clean, with no erythema or drainage; uperficial ulcerations over the anterior tibial aspects of both legs, with 1+ edema bilaterally. Neuro is without focality. Duvall catheter is in place IMPRESSION This is a 76-year-old gentleman with significant ischemic heart, low ejection fraction, atrial fibrillation, previous AICD, recent 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 with prolonged antibiotic, previous history of peptic ulcer disease, diabetes, previous chronic kidney disease but however his creatinine which was normal upon admission, was in sinus rhythm upon admission was on Tikosyn, hyperlipidemia, apparently has never smoked before, previous history of lithotripsy, CABG, hip prosthesis infection status post removal in early 2017 now has the following issues * S/p Perf large DU ulcer s/p surg now with sig ongoing biliary leak from recurrence of the perf/ulcer * REsolving Acute respiratory insufficiency due to above with no clinical evidence suggestive of pneumonia\ * Sig drainage from the gabriela biliary leak from ongoing perf * REsolving Significant septic shock now off vasopressors with adequate fluid resuscitation * Significant ischemic heart disease with low ejection fraction high risk for fluid overload. Previous pafib in sinus now with a pacer and AICD * Resolving Acute renal failure most likely related to acute tubular necrosis from his septic shock and Prob contrast nephropathy * Significant diabetes with the previous CLARISA inhibitor use as well * Multiple electrolyte abnormalities now better * Significant intra-abdominal sepsis with previous hip infection now on broad- spectrum antibiotics. No clinical evidence suggestive of right hip infection at this present time * H/O LIAM was on cpap RECOMMENDATION * Keep intubated * Needs to go to the OR for perforation * keep pt even and use d5 0.45 normal saline * Picc line multilumen - ask nutrition to consult for tpn and start today after the picc line - please order * Strict sugar control after tpn * Continue his fentanyl low-dose for now, reduce dose and use prn ativan aswell * Continue broad-spectrum antibiotics * Intravenous pantoprazole * Heparin subcutaneous * Cardio follow up * Watch for pulm edema Pt critically ill tts 40 mins
[2017-07-13 12:00] VITALS: BP 100/60
--- NOTE | 2017-07-13 12:07 | PN- Infect Dx ---
Subjective Subjective: Afebrile without complaints Objective Last 24 Hrs of Vital Signs/I&O Vital Signs Date Time Temp Pulse Resp B/P B/P Pulse O2 O2 Flow FiO2 Mean Ox Delivery Rate 07/13 823 40 07/13 800 95 Ventilator 40% 07/13 800 97.9 71 21 100/56 95 Ventilator 45% 07/13 700 98.4 69 21 111/49 95 Ventilator 40% 07/13 0555 40 07/13 0400 95 Ventilator 40% 07/13 0317 40 07/13 0044 40 07/13 0000 97 Ventilator 40% 07/12 2327 40 07/12 2300 97.5 68 20 90/50 97 Ventilator 40% 07/12 2051 40 07/12 2000 95 Ventilator 40% 07/12 1600 93 Ventilator 40% 07/12 1600 97.3 72 20 101/49 93 Ventilator 40% 07/12 1542 40 07/12 1303 40 Intake & Output 07/13 1600 07/13 0807/13 0000 Intake Total 1200 1682 Output Total 1730 2030 Balance -530 -348 Intake, IV 1200 1232 Intake, Oral 0 Intake, Other 450 Output, 900 1155 Drainage Output, 100 150 Gastric Drainage Output, Urine 730 725 Physical Exam Other Physical Findings: He appears comfortable on the ventilator in no acute distress Neck right IJ triple-lumen catheter with no inflammation at the site Lungs are clear Heart regular rhythm with no murmur Abdomen is distended, nontender with positive bowel sounds; WILLEM drain with 3 L output yesterday and 900 mL overnight Extremities 2+ edema all extremities Duvall catheter remains in place Results Last 24 Hours of Lab Results: Laboratory Tests 07/13 348 Chemistry Sodium (137 - 145 mmol/L) 146 H Potassium (3.5 - 5.1 mmol/L) 4.3 Chloride (98 - 107 mmol/L) 118 H Carbon Dioxide (22 - 30 mmol/L) 17 L Anion Gap (5 - 16) 10 BUN (9 - 20 mg/dL) 32 H Creatinine (0.7 - 1.2 mg/dL) 1.3 H Estimated GFR (>60 ml/min) 54 L Glucose (65 - 99 mg/dL) 175 H Calcium (8.4 - 10.2 mg/dL) 7.4 L Phosphorus (2.5 - 4.5 mg/dL) 2.4 L Magnesium (1.6 - 2.3 mg/dL) 2.1 Total Bilirubin (0.2 - 1.3 mg/dL) 0.4 AST (17 - 59 U/L) 26 ALT (21 - 72 U/L) 29 Albumin (3.5 - 5.0 g/dL) 1.7 L Hematology CBC w Diff MAN DIFF ORDERED WBC (4.8 - 10.8 /CUMM) 16.7 H RBC (4.70 - 6.10 /CUMM) 3.92 L Hgb (14.0 - 18.0 G/DL) 11.0 L Hct (42 - 52 %) 34.5 L MCV (80.0 - 94.0 FL) 88.2 MCH (27.0 - 31.0 PG) 28.1 RDW (11.5 - 14.5 %) 16.6 H Plt Count (130 - 400 /CUMM) 155 MPV (7.4 - 10.4 FL) 9.4 Gran % (42.2 - 75.2 %) 78.2 H Lymphocytes % (20.5 - 51.1 %) 16.2 L Monocytes % (1.7 - 9.3 %) 5.0 Eosinophils % (0 - 5 %) 0.5 Basophils % (0.0 - 2.0 %) 0.1 Absolute Granulocytes (1.4 - 6.5 /CUMM) 13.0 H Segmented Neutrophils (42.2 - 75.2 %) 70 Band Neutrophils (0.0 - 5.0 %) 3 Absolute Lymphocytes (1.2 - 3.4 /CUMM) 2.7 Lymphocytes (20.5 - 51.1 %) 20 L Monocytes (1.7 - 9.3 %) 7 Absolute Monocytes (0.10 - 0.60 /CUMM) 0.8 H Absolute Eosinophils (0.0 - 0.7 /CUMM) 0.1 Absolute Basophils (0.0 - 0.2 /CUMM) 0 Platelet Estimate (ADEQUATE) ADEQUATE Normocytic RBCs VERIFIED Normochromic RBCs VERIFIED PUBS MCHC (33.0 - 37.0 G/DL) 31.9 L Last 24 Hours of Les Results: Blood cultures 2 July 09 remain negative Chest x-ray, personally reviewed, reveals mild cardiomegaly with small pleural effusions and bibasilar densities Recent Imaging Studies: CT of the abdomen and pelvis with oral contrast July 12 reveals extravasation of contrast with free air in the upper abdomen consistent with a history of duodenal perforation with persistent leakage from the bowel; bilateral pleural effusions with bibasilar densities Assessment/Plan Impression: Probable duodenal leak, based on the recent CT scan results, with plans apparently for return to the OR at some point in the next 24 hours. He remains afebrile but his white blood cell count has increased, likely related to this leak, now on Unasyn 4 days status post exploratory laparotomy and Fabrizio patch for a perforated duodenal ulcer, with his OR culture negative. Suggestion: 1. Await probable return to the OR per Surgery 2. Would pursue PICC so that the right IJ can be removed 3. Continue Unasyn
--- NOTE | 2017-07-13 12:43 | PN- Cardiology ---
Subjective Subjective: Intubated and sedated. Objective Vital Signs and I&Os Vital Signs Date Time Temp Pulse Resp B/P B/P Pulse O2 O2 Flow FiO2 Mean Ox Delivery Rate 07/13 1212 40 07/13 0823 40 07/13 800 95 Ventilator 40% 07/13 800 97.9 71 21 100/56 95 Ventilator 45% 07/13 700 98.4 69 21 111/49 95 Ventilator 40% 07/13 0555 40 07/13 0400 95 Ventilator 40% 07/13 0317 40 07/13 0044 40 07/13 0000 97 Ventilator 40% 07/12 2327 40 07/12 2300 97.5 68 20 90/50 97 Ventilator 40% 07/12 2051 40 07/12 2000 95 Ventilator 40% 07/12 1600 93 Ventilator 40% 07/12 1600 97.3 72 20 101/49 93 Ventilator 40% 07/12 1542 40 07/12 1303 40 Intake & Output 07/13 1600 07/13 0000 07/12 1600 07/12 0000 Intake Total 1200 1682 1239 1295 1356 Output Total 1730 2030 1850 1825 1425 Balance -530 -348 -611 -530 -69 Intake, IV 1200 1232 1239 1295 1356 Intake, Oral 0 0 0 Intake, Other 450 Number 0 0 Bowel Movements Output, 900 9992 411 4868 825 Drainage Output, 100 150 100 Gastric Drainage Output, Urine 730 725 850 825 600 Physical Exam: Well-developed, morbidly obese elderly male who is intubated and sedated. Vital signs: See above. Neck: No JVD, no bruits. Lungs: Decreased breath sounds bilaterally. Heart: S1, S2 with soft (grade 1/6) systolic murmur. Abdomen: Soft, absent bowel sounds. Extremities: No edema. Current Medications: Current Medications Sig/Buck Start time Last Medication Dose Route Stop Time Status Admin Acetaminophen 1,000 MG Q6H PRN 07/09 1900 AC 07/10 N/A 1 UNIT IV 1807 Ampicillin Sodium/ 3,000 MG Q8H 07/12 1800 AC 07/13 Sulbactam Sodium IV 1001 Sodium Chloride 100 ML Budesonide/ 2 PUF BID 07/09 2200 AC 07/12 Formoterol Fumarate INH 2225 Fat Emulsion 250 ML Q24H 11/08 1900 AC Intravenous IV 07/14 1859 Fentanyl Citrate 1,000 MCG Q24H 07/13 1000 AC Dextrose/Water 250 ML IV Fentanyl Citrate 1,000 MCG Q13H 07/10 2300 DC 07/13 Dextrose/Water 250 ML IV 0755 Heparin Sodium 5,000 UNIT Q8 07/10 0138 07/13 (Porcine) SC 0616 Insulin Human Regular 0 Q6 07/12 0600 07/13 SC 0615 Meropenem 1 GM Q12H 07/11 1700 DC 07/12 IV 1537 Nystatin 1 GENE TID 07/09 2200 07/13 TOP 0755 Octreotide Acetate 500 MCG Q10H 07/13 1200 AC Dextrose/Water 500 ML IV Octreotide Acetate 50 MCG ONCE ONE 07/13 1200 DC IV 07/13 1201 Ondansetron HCl 4 MG ONCE ONE 07/12 1530 DC 07/12 IV 07/12 1531 1537 Pantoprazole Sodium 40 MG BID 07/10 1016 07/13 IV 0755 Potassium Chloride 20 MEQ Q8H 07/12 0930 07/13 Dextrose/Sodium 1,000 ML IV 0927 Chloride Total Parenteral 1 UNIT ONE 07/13 190 AC Nutrition IV 07/14 1859 Results Last 48 Hrs of Labs/Mics: Laboratory Tests 07/13/17 0348: Anion Gap 10, Estimated GFR 54 L, Glucose 175 H, Calcium 7.4 L, Phosphorus 2.4 L, Magnesium 2.1, Total Bilirubin 0.4, AST 26, ALT 29, Albumin 1.7 L, CBC w Diff MAN DIFF ORDERED, RBC 3.92 L, MCV 88.2, MCH 28.1, RDW 16.6 H, MPV 9.4, Gran % 78.2 H, Lymphocytes % 16.2 L, Monocytes % 5.0, Eosinophils % 0.5, Basophils % 0.1, Absolute Granulocytes 13.0 H, Segmented Neutrophils 70, Band Neutrophils 3, Absolute Lymphocytes 2.7, Lymphocytes 20 L, Monocytes 7, Absolute Monocytes 0.8 H, Absolute Eosinophils 0.1, Absolute Basophils 0, Platelet Estimate ADEQUATE, Normocytic RBCs VERIFIED, Normochromic RBCs VERIFIED , PUBS MCHC 31.9 L 07/12/17 0530: pH 7.38, pCO2 31 L, pO2 76 L, HCO3 18 L, ABG O2 Sat (Measured) 93.0 L, P-50 (Temp Corrected) Y, Carboxyhemoglobin 0.1 L, O2 Concentration % 40%, Temperature 99.3, Respiration Rate 20, O2 Delivery Method ESPRIT, Vent Mode AC, Expiratory Pressure 5, Tidal Volume 600, Phlebotomy Draw Site RIGHT RADIAL 07/12/17 0348: Anion Gap 7, Estimated GFR 24 L, Glucose 170 H, Calcium 7.1 L, Phosphorus 3.5 , Magnesium 2.2, Total Bilirubin 0.5, AST 29, ALT 32, Albumin 1.6 L, PT 14.4 H , INR 1.38 H, CBC w Diff NO MAN DIFF REQ, RBC 4.02 L, MCV 87.0, MCH 28.0, RDW 16.2 H, MPV 8.6, Gran % 76.4 H, Lymphocytes % 18.2 L, Monocytes % 4.8, Eosinophils % 0.4, Basophils % 0.2, Absolute Granulocytes 10.8 H, Absolute Lymphocytes 2.6, Absolute Monocytes 0.7 H, Absolute Eosinophils 0.1, Absolute Basophils 0, PUBS MCHC 32.2 L 07/11/17 2201: Anion Gap 9, Estimated GFR 18 L, Glucose 181 H, Lactic Acid 2.1, Calcium 7.1 L, Phosphorus 3.9, Magnesium 2.2, Total Bilirubin 0.5, AST 28, ALT 31, Albumin 1.6 L, CBC w Diff NO MAN DIFF REQ, RBC 4.10 L, MCV 87.1, MCH 28.8, RDW 16.7 H , MPV 9.1, Gran % 75.1, Lymphocytes % 17.8 L, Monocytes % 6.8, Eosinophils % 0.2, Basophils % 0.1, Absolute Granulocytes 10.6 H, Absolute Lymphocytes 2.5, Absolute Monocytes 1.0 H, Absolute Eosinophils 0, Absolute Basophils 0, PUBS MCHC 33.0 Recent Imaging Studies: CXR (07/13/2017): 1. Tubes/lines in satisfactory position. No pneumothorax. 2. Mild cardiomegaly without pulmonary edema. 3. Small pleural effusions and bibasilar atelectasis observed on the recent CT exam are difficult to detect on this single view chest radiograph. Portable abdominal x-ray (07/13/2017): 1. The enteric tube terminates in the stomach in appropriate positioning. 2. Surgical dagoberto overlie the right abdomen. 3. Right hip hemiarthroplasty noted with antibiotic femoral head component. 4. Nonobstructive bowel gas pattern. 5. Degenerative changes throughout the spine. Assessment/Plan Assessment/Plan [id number] w/ hx of morbid obesity, LIAM on CPAP, COPD, HTN, HLD, DM, CAD/ICM (s/ p IMI in 1998, CABG 4 w/ WHITE to LAD and individual SVGs to Dx, OM, PDA & MAZE) , and recurrent PAF who presented in an unkempt state via ambulance with a urinary tract infection and subsequently had a perforation of a duodenal ulcer for which he underwent surgery (Fabrizio patch) on 07/09/2017. He remains intubated and sedated, but is easily arousable. Blood pressure remains borderline. Recommendations: * If further ventricular tachycardia will place on amiodarone. * Continue DVT prophylaxis. Continue telemetry? Not applicable (In ICU.)
--- NOTE | 2017-07-13 12:46 | PN- General Surgery ---
Surgical Brief Attending Note Brief Attending Note: After careful consideration and discussion with surgical colleagues at [facility] and elsewhere via surgical forms, the consensus is to proceed with nonoperative management of this patient's persistent duodenal leak. The rationale is that further operative intervention make make the problem worse, and that there are further maneuvers, nonoperative, that can assist in nonoperative closure of his controlled leak. We'll start the patient on TPN. Octreotide will be given to reduce pancreaticobiliary output. And a postpyloric nasoenteric tube will be placed to facilitate internal drainage.
--- NOTE | 2017-07-13 15:35 | RADIOLOGY REPORT ---
EXAMINATION: CR PORTABLE CHEST CLINICAL INFORMATION: PICC line placement. Please confirm. COMPARISON: Chest x-ray dated 07/12/2017. TECHNIQUE: Portable AP supine view of the chest was obtained. FINDINGS: Endotracheal tube tip is approximately 6 cm above the kika. Enteric tube courses into the abdomen with tip not included. Right jugular central venous line is in the distal SVC. Right subclavian PICC line is at the cavoatrial junction. Left pectoral pacer generator is in place and right atrial pacer lead and right ventricular AICD lead are noted. Multiple external EKG leads overlie the chest. The patient is status post median sternotomy and CABG surgery. The cardiomediastinal silhouette is borderline enlarged. Calcification of the aortic arch is seen. Bilateral small pleural effusions are noted with bibasilar atelectasis or consolidation, unchanged. The lung bases and CP angles are not fully included on this exam. No pneumothorax is seen. Mild spurring is noted in the mid and lower thoracic spine. IMPRESSION: 1. PICC line tip is at the cavoatrial junction. 2. Enteric tube tip is 6 cm above the kika. Other lines and tubes in place as discussed above. 3. Small bilateral pleural effusions with bibasilar atelectasis or consolidation, unchanged.
[2017-07-13 16:00] VITALS: BP 99/43
--- NOTE | 2017-07-13 16:38 | INTERVENTIONAL RADIOLOGY RPT ---
EXAMINATION: Fluoroscopic guided advancement of existing orogastric tube CLINICAL INFORMATION: 76-year-old male with duodenal perforation. Request made by Dr. Trimble to advance the OG tube into the duodenum adjacent to the perforation to assist with decompression of the bowel and healing of the perforation. COMPARISON: Several prior chest and abdominal radiographs from today. CT abdomen pelvis dated 07/12/2017. Interventional radiologist: Maynor Thomas M.D. Fluoroscopic Time: 1.2 minutes Procedure in Detail: Informed consent was obtained from the patient's nephew prior to the procedure. During this process, the procedure and potential alternatives were explained along with the intended outcome and benefits. The risks of the procedure including the possibility of an unsuccessful procedure, as well as the risk of not doing the procedure were discussed. The patient's nephew was given the opportunity to ask questions regarding the procedure. A consent form which document this discussion was placed in the medical record. Following informed consent the patient was placed supine on the fluoroscopic table. His existing orogastric tube was prepped and draped in sterile fashion. A time out procedure was performed. Initial imaging showed the oral gastric tube terminating within the stomach. Several attempts were made to pass a new nasogastric tube, however, the tube would not pass through the oropharynx. For this reason, conversion to a nasogastric tube was aborted. A stiff Glidewire was advanced down the existing orogastric tube. The orogastric tube was advanced over the wire and followed the course of the proximal duodenum, paralleling the existing surgical WILLEM drain. The wire was removed. Final fluoroscopic image demonstrates orogastric tube advanced into the mid duodenum, adjacent to the WILLEM drain. The patient tolerated procedure well without complications. IMPRESSION: 1. Unsuccessful advancement of a new nasogastric tube through the oropharynx. This was likely unsuccessful secondary to the patient's supine position and the existing endotracheal and orogastric tubes. 2. Successful advancement of orogastric tube into the mid duodenum with the tip paralleling the surgical WILLEM drain. When correlated with CT imaging from 07/12/2017, the orogastric tube terminates in the region of the duodenal perforation. This was the location that was requested by Dr. Trimble for the tube to terminate. Procedure results discussed with Dr. Trimble.
[2017-07-13 23:00] VITALS: BP 103/45
[2017-07-14 05:44] LABS: ABSOLUTE BASOPHIL COUNT 0 /CUMM (0.0-0.2); ABSOLUTE EOSINOPHIL COUNT 0.2 /CUMM (0.0-0.7); ABSOLUTE GRANULOCYTE CT 11.9 /CUMM (1.4-6.5); ABSOLUTE LYMPH COUNT 2.8 /CUMM (1.2-3.4); ABSOLUTE MONOCYTE COUNT 0.8 /CUMM (0.10-0.60); BASOPHIL % 0 % (0.0-2.0); EOSINOPHIL % 1.6 % (0-5); HEMATOCRIT 32.3 % (42-52); MEAN CORPUSCULAR HGB 28.6 PG (27.0-31.0); MEAN CORPUSCULAR VOLUME 86.8 FL (80.0-94.0); MEAN PLATELET VOLUME 9.2 FL (7.4-10.4); PLATELET COUNT 172 /CUMM (130-400); RBC DISTRIBUTION WIDTH 16.7 % (11.5-14.5); RED BLOOD CELL CT 3.72 /CUMM (4.70-6.10); WHITE BLOOD CELL COUNT 15.7 /CUMM (4.8-10.8)
[2017-07-14 07:00] VITALS: BP 113/64
--- NOTE | 2017-07-14 09:03 | PN- CRCU ---
Subjective HPI/Critical Care Issues: Continues to be intubated and awake responding to commands. Continues to be on low-dose fentanyl. Does not complaining of any pain. Patient has now been started on TPN and octreotide and has had a postpyloric OG tube placed. Afebrile on 40% FiO2 saturating 95% Continues to have significant amount of GABRIELA drainage with drainage of 3 50 mL this morning OG tube output has been about 190 urine output has been adequate Other review of symptoms could not be obtained Significant data BUN 21 creatinine down to 1 and anion gap is normal magnesium 2 phosphorous 2.4 white count up to 15.7 with a left shift with 3% bands ABG from yesterday reviewed cultures so far are negative Objective Current Medications: Current Medications Sig/Buck Start time Last Medication Dose Route Stop Time Status Admin Acetaminophen 1,000 MG .STK-MED ONE 07/13 2228 DC IV 07/13 222 Acetaminophen 1,000 MG Q6H PRN 07/09 1900 07/14 N/A 1 UNIT IV 0458 Ampicillin Sodium/ 3,000 MG Q8H 07/12 1800 07/14 Sulbactam Sodium IV 0125 Sodium Chloride 100 ML Budesonide/ 2 PUF BID 07/09 2200 07/13 Formoterol Fumarate INH 2237 Fat Emulsion 250 ML Q24H 07/13 1900 07/13 Intravenous IV 07/14 1859 2004 Fentanyl Citrate 1,000 MCG Q24H 07/13 1000 AC Dextrose/Water 250 ML IV Fentanyl Citrate 1,000 MCG Q13H 07/10 2300 DC 07/13 Dextrose/Water 250 ML IV 0755 Heparin Sodium 5,000 UNIT Q8 07/10 0138 07/14 (Porcine) AL 0529 Insulin Human Regular 8 UNITS .STK-MED ONE 07/14 0029 DC IV 07/14 0030 Insulin Human Regular 6 UNITS .STK-MED ONE 07/13 1917 DC IV 07/13 191 Insulin Human Regular 4 UNITS .STK-MED ONE 07/13 1334 DC IV 07/13 1335 Insulin Human Regular 0 Q6 07/12 0600 07/14 AL 0528 Nystatin 1 GENE TID 07/09 2200 SD 07/13 TOP 1717 Octreotide Acetate 500 MCG Q10H 07/13 1200 07/13 Dextrose/Water 500 ML IV 2243 Octreotide Acetate 50 MCG ONCE ONE 07/13 1200 DC 07/13 IV 07/13 1201 1317 Pantoprazole Sodium 40 MG BID 07/10 1016 AC 07/13 IV 2237 Potassium Chloride 20 MEQ Q8H 07/12 930 AC 07/14 Dextrose/Sodium 1,000 ML IV 0033 Chloride Total Parenteral 1 UNIT ONE 07/13 1900 07/13 Nutrition IV 07/14 Vital Signs & I&O Last 24 Hrs of Vitals and I&O: Vital Signs Date Time Temp Pulse Resp B/P B/P Pulse O2 O2 Flow FiO2 Mean Ox Delivery Rate 07/14 819 40 07/14 700 98.3 68 20 113/64 95 Ventilator 40% 07/14 0633 40 07/14 0428 40 07/14 0400 95 Ventilator 40% 07/14 0204 40 07/14 0000 96 Ventilator 40% 07/13 2300 98.9 68 15 103/45 96 Ventilator 40% 07/13 2229 98.9 07/13 2220 40 07/13 2000 96 Ventilator 40% 07/13 1904 40 07/13 1640 40 07/13 1600 95 Ventilator 40% 07/13 1600 68 21 99/43 95 Ventilator 40% 07/13 1405 40 07/13 1212 40 07/13 1200 95 Ventilator 40% 07/13 1200 98.7 71 20 100/60 95 Ventilator 40% Intake & Output 07/14 1600 07/14 0800 07/14 0000 Intake Total 1667.4 3257.6 Output Total 1545 2130 Balance 122.4 1127.6 Intake, IV 1250.4 3257.6 Intake, Lipid 83.0 Intake, Oral 0 0 Intake, 334 TPN/PPN Output, 350 280 Drainage Output, 190 Gastric Drainage Output, Urine 1005 1850 Impression/Plan Impression/Plan Impression/Plan: CT IMPRESSION: 1. There is extravasation of contrast and there is free air in the upper abdomen consistent with history of duodenal perforation with persistent leakage from the bowel. The percutaneous catheter in place in the right upper quadrant does lie within the largest collection near the tip of the right lobe of liver. 2. Bilateral pleural effusions with bibasilar infiltrate/atelectasis. This critical result was discussed with Dr. Hughes on 07/12/2017, 5:28 PM and it was ascertained that the content and urgency of the report was understood at the time of direct communication. DICTATED BY: AROSE MD,LILIANA DATE/TIME DICTATED:07/12/171708 Afebrile. He is sedated but esponsive on the ventilator. Skin reveals no rash. HEENT negative. Neck supple with no adenopathy; right IJ triple-lumen catheter in place, with no inflammation at the site. Lungs decreased breath sounds bilaterally. Heart regular rhythm with no murmur. Abdomen is obese, distended, tender to palpation, Incision noted with a gabriela drain in the rt side Back no CVA tenderness. Extremities right hip incision clean, with no erythema or drainage; uperficial ulcerations over the anterior tibial aspects of both legs, with 1+ edema bilaterally. Neuro is without focality. 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 NOw being managed conservatively per surg, with tpn, octreotide, and post pyloric og tube * REsolving Acute respiratory insufficiency due to above with no clinical evidence suggestive of pneumonia\ * Sig drainage from the gabriela biliary leak from ongoing perf, with conservative mgt per surg * REsolved septic shock now off vasopressors with adequate fluid resuscitation * Significant ischemic heart disease with low ejection fraction high risk for fluid overload. Previous pafib in sinus now with a pacer and AICD. 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 * H/O LIAM was on cpap RECOMMENDATION * Start PSV trials, and ask surg to see if we can extubate. IF we do extubate pt will loose his og tube and would need to go to IR for placement of NG for post pyloric tube * Keep pt even and reduce * Cont tpn etc and goal is to keep the pt even * Strict sugar control with sliding scale * Continue his fentanyl low-dose for now and post extubation will use low dose narcotics * Continue broad-spectrum antibiotics * Intravenous pantoprazole * Heparin subcutaneous * Cardio follow up * Watch for pulm edema Pt critically ill tts 41 mins
--- NOTE | 2017-07-14 10:00 | RADIOLOGY REPORT ---
EXAMINATION: CR PORTABLE CHEST CLINICAL INFORMATION: Intubated patient. COMPARISON: Chest x-ray dated 07/13/2017. TECHNIQUE: Portable AP semierect view of the chest was obtained. FINDINGS: Endotracheal tube tip approximately 3.6 cm above the kika. Enteric tube courses into the abdomen with tip not included. Right atrial pacer lead and right ventricular ICD lead are unchanged. Right-sided PICC line is in place with tip poorly visualized but likely in the distal SVC. The patient is status post median sternotomy and CABG surgery. The cardiomediastinal silhouette is enlarged, unchanged. There are bilateral layering pleural effusions and associated bibasilar opacities, consistent with atelectasis or pneumonia. Findings are unchanged from the prior exam. No pneumothorax is seen. Bony structures are unremarkable. IMPRESSION: 1. Endotracheal tube tip 3.6 cm above the kika. 2. Enteric tube courses into the abdomen with tip not included. 3. PICC line tip poorly visualized but likely in distal SVC. 4. No change in bilateral small pleural effusions and associated bibasilar atelectasis or pneumonia.
--- NOTE | 2017-07-14 10:29 | PN- Infect Dx ---
Subjective Subjective: Afebrile. He notes mild abdominal discomfort. Objective Last 24 Hrs of Vital Signs/I&O Vital Signs Date Time Temp Pulse Resp B/P B/P Pulse O2 O2 Flow FiO2 Mean Ox Delivery Rate 07/14 0819 40 07/14 800 96 Ventilator 40% 07/14 700 98.3 68 20 113/64 95 Ventilator 40% 07/14 0633 40 07/14 0428 40 07/14 0400 95 Ventilator 40% 07/14 0204 40 07/14 0000 96 Ventilator 40% 07/13 2300 98.9 68 15 103/45 96 Ventilator 40% 07/13 2229 98.9 07/13 2220 40 07/13 2000 96 Ventilator 40% 07/13 1904 40 07/13 1640 40 07/13 1600 95 Ventilator 40% 07/13 1600 68 21 99/43 95 Ventilator 40% 07/13 1405 40 07/13 1212 40 07/13 1200 95 Ventilator 40% 07/13 1200 98.7 71 20 100/60 95 Ventilator 40% Intake & Output 07/14 1600 07/14 0807/14 0000 Intake Total 1667.4 3257.6 Output Total 1545 2130 Balance 122.4 1127.6 Intake, IV 1250.4 3257.6 Intake, Lipid 83.0 Intake, Oral 0 0 Intake, 334 TPN/PPN Output, 350 280 Drainage Output, 190 Gastric Drainage Output, Urine 1005 1850 Physical Exam Other Physical Findings: He is awake and alert on the ventilator in no acute distress HEENT OG tube in place Lungs are clear Heart regular rhythm with no murmur Abdomen is distended, nontender with positive bowel sounds; WILLEM drain remains in place with a significant amount of bilious output Extremities 1-2+ edema of the upper extremities; PICC in the right upper extremity with no inflammation at the site Duvall catheter remains in place Results Last 24 Hours of Lab Results: Laboratory Tests 07/14 0500 Chemistry Sodium (137 - 145 mmol/L) 144 Potassium (3.5 - 5.1 mmol/L) 4.6 Chloride (98 - 107 mmol/L) 117 H Carbon Dioxide (22 - 30 mmol/L) 18 L Anion Gap (5 - 16) 8 BUN (9 - 20 mg/dL) 21 H Creatinine (0.7 - 1.2 mg/dL) 1.0 Estimated GFR (>60 ml/min) > 60 Glucose (65 - 99 mg/dL) 266 H Calcium (8.4 - 10.2 mg/dL) 7.3 L Phosphorus (2.5 - 4.5 mg/dL) 2.4 L Magnesium (1.6 - 2.3 mg/dL) 2.0 Total Bilirubin (0.2 - 1.3 mg/dL) 0.6 AST (17 - 59 U/L) 27 ALT (21 - 72 U/L) 33 Albumin (3.5 - 5.0 g/dL) 1.8 L Hematology CBC w Diff NO MAN DIFF REQ WBC (4.8 - 10.8 /CUMM) 15.7 H RBC (4.70 - 6.10 /CUMM) 3.72 L Hgb (14.0 - 18.0 G/DL) 10.7 L Hct (42 - 52 %) 32.3 L MCV (80.0 - 94.0 FL) 86.8 MCH (27.0 - 31.0 PG) 28.6 RDW (11.5 - 14.5 %) 16.7 H Plt Count (130 - 400 /CUMM) 172 MPV (7.4 - 10.4 FL) 9.2 Gran % (42.2 - 75.2 %) 76.0 H Lymphocytes % (20.5 - 51.1 %) 17.6 L Monocytes % (1.7 - 9.3 %) 4.8 Eosinophils % (0 - 5 %) 1.6 Basophils % (0.0 - 2.0 %) 0 Absolute Granulocytes (1.4 - 6.5 /CUMM) 11.9 H Absolute Lymphocytes (1.2 - 3.4 /CUMM) 2.8 Absolute Monocytes (0.10 - 0.60 /CUMM) 0.8 H Absolute Eosinophils (0.0 - 0.7 /CUMM) 0.2 Absolute Basophils (0.0 - 0.2 /CUMM) 0 PUBS MCHC (33.0 - 37.0 G/DL) 33.0 Last 24 Hours of Les Results: No new cultures Recent Imaging Studies: Chest x-ray July 14 reveals bilateral pleural effusions and bibasilar densities, right greater than left Assessment/Plan Impression: Overall stable though with evidence of a duodenal leak on his recent CT scan, with surgical comments noted regarding plans for nonoperative management, status post advancement of his 0G tube yesterday. He remains afebrile but his white blood cell count remains elevated, likely related to this leak, and, if his white blood cell count remains elevated, repeat CT scan may need to be considered to rule out a collection. He remains on Unasyn now 5 days status post exploratory laparotomy and Fabrizio patch for a perforated duodenal ulcer. Suggestion: 1. Further management of his duodenal leak per Surgery 2. Continue Unasyn
--- NOTE | 2017-07-14 11:01 | PN- General Surgery ---
Surgical Brief Attending Note Brief Attending Note: SO FAR, DRAINAGE HAS REDUCED. CONTINUE TO MONITOR. VENT WEAN ONGOING. OK TO EXTUBATE WHEN APPROPRIATE. MAY NEED NG REPLACEMENT AFTER EXTUBATION. IF DRAIN OUTPUT CONTINUES TO BE HIGH, HE MAY NEED BICARBONATE REPLACEMENT.
--- NOTE | 2017-07-14 14:54 | PN- Resident CRCU ---
Subjective HPI/CRCU Issues: - Septic shock 2/2 perforated duodenal ulcer s/p Fabrizio patch POD Day #4 - Metabolic acidosis - Resolving - CAD s/p CABG - HFrEF with EF of 25% s/p AICD - PAF on Tikosyn not on AC - USMAN- Resolving - Acute respiratory failure curently intubated- Stable. 24 Hour Events: Stable. Flow sheet reviewed. Negative fluid balance. Objective Vital Signs & I&O Last 8 Hrs of Vitals and I&O: Intake & Output 07/14 1600 Intake Total 1436.0 Output Total 2740 Balance -1304.0 Intake, IV 1019 Intake, Lipid 83.0 Intake, 334 TPN/PPN Output, 90 Drainage Output, Urine 2650 Exam General Appearance: well developed/nourished, no apparent distress, alert Respiratory: normal breath sounds Cardiovascular: regular rate/rhythm, edema Gastrointestinal: normal bowel sounds, soft Extremities: swelling Weaning Parameters NIF: 21 Minute Volume: 11.5 Resp rate: 22 Vt: 478 Heart Rate: 76 Weaning Schedule Start Time: 0909 Minute Volume: 12.3 Resp Rate: 25 Vt: 594 Heart Rate: 76 End Time: 1210 Minute Volume: 11.8 Resp Rate: 22 Vt: 604 Heart Rate: 69 Current Medications: Current Medications Sig/Buck Start time Last Medication Dose Route Stop Time Status Admin Acetaminophen 1,000 MG .STK-MED ONE 07/14 0456 DC IV 07/14 045 Acetaminophen 1,000 MG .STK-MED ONE 07/138 DC IV 07/13 222 Acetaminophen 1,000 MG Q6H PRN 07/09 1900 07/14 N/A 1 UNIT IV 0458 Ampicillin Sodium/ 3,000 MG Q8H 07/12 1800 07/14 Sulbactam Sodium IV 0918 Sodium Chloride 100 ML Budesonide/ 2 PUF BID 07/09 2200 07/13 Formoterol Fumarate INH 2237 Fat Emulsion 350 ML Q24H 07/14 190 AC Intravenous IV 07/15 185 Fat Emulsion 250 ML Q24H 07/13 190 AC 07/13 Intravenous IV 07/14 185 2004 Fentanyl Citrate 1,000 MCG Q24H 07/13 1000 DC Dextrose/Water 250 ML IV Furosemide 40 MG ONCE ONE 07/14 1130 DC 07/14 IV 07/14 113 1135 Heparin Sodium 5,000 UNIT Q8 07/10 0138 AC 07/14 (Porcine) SC 1434 Insulin Human Regular 8 UNITS .STK-MED ONE 07/14 0528 DC IV 07/14 0529 Insulin Human Regular 8 UNITS .STK-MED ONE 07/14 0029 DC IV 07/14 0030 Insulin Human Regular 6 UNITS .STK-MED ONE 07/13 1917 DC IV 07/13 191 Insulin Human Regular 0 Q6 07/12 0600 AC 07/14 SC 1200 Methylprednisolone 40 MG ONCE ONE 07/14 1130 DC 07/14 IV 07/14 1131 1130 Morphine Sulfate 2 MG Q4P PRN 07/14 1145 AC IV Nystatin 1 GENE TID 07/09 2200 DC 07/13 TOP 1717 Octreotide Acetate 500 MCG Q10H 07/13 1200 AC 07/14 Dextrose/Water 500 ML IV 0800 Pantoprazole Sodium 40 MG BID 07/10 1016 AC 07/14 IV 0918 Potassium Chloride 20 MEQ Q8H 07/12 0930 AC 07/14 Dextrose/Sodium 1,000 ML IV 0919 Chloride Total Parenteral 1 UNIT ONE 07/14 1900 AC Nutrition IV 07/15 185 Total Parenteral 1 UNIT ONE 07/13 190 DC 07/13 Nutrition IV 07/14 [id number] Impression/Plan Impression/Problem List Impression: 76 year old gentleman PAF on Tikosyn, not on AC, 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 POD 2, continues to be intuibated and requiring MV support. Plan: #Post op respiratory support with Mechanical ventilation - Extubated - D/c Fentanyl - Await IR intrvention for post-pylorus Ng tube placement. #Septic shock - 2/2 peritonitis from perforated duodenal ulcer - Continue to hydrate with D5/1/2NS @ 125mls/hr. - Unasyn 3g q8. - Negative OR and blood cultures. #Hypotension - 2/2 septic shock. Resolved. #CAD s/p CABG -F/u cardio recs #Hx of PAF on Tikosyn - Curently in NSR, and rate controlled - Continue to hold tikosyn. Cardio following. # Perforated duodenal ulcer - S/P Fabrizio repair yesterday with WILLEM drain - Octreotide drip to counter increased drainage. Will reacess the need and discuss with surgery tomorrow. - IV Protonix 40mg BID #Metabolic acidosis - 2/2 lactic acidosis from systemic hypoperfusion - Resolved - Continue IVF hydration. #USMAN -Normal. Maintain negative fluid balance. - Continue IVFs. - Continue to montior - DVT prophylaxis - On heparin 5000iu TID SC - Diet - NPO - Code Status - Full Code Problem List: 1. Duodenal ulcer with perforation Pain Ratin Tomorrow's Labs & Rationales: Perforation Plan DVT/Prophylaxis: mechanical, pharmacological
--- NOTE | 2017-07-14 15:44 | PN- Nephrology ---
Assessment/Plan Assessment: 1. Acute kidney injury secondary to shock and abdominal sepsis, resolved. 2. Hypernatremia - resolved 3. Status post patch repair of perforated duodenal ulcer with associated peritonitis Suggestion: 1. Continue current management 2. Can taper IV fluids once abdominal drainage begins to haley I will sign off; please call if needed again. Thank you for asking us to assist in his care. Subjective Subjective: Patient is extubated, awake and alert with some relatively mild persistent abdominal discomfort. Renal function has essentially normalized as has his serum sodium. Urine output excellent. Abdominal drain output remains quite significant. Objective Vital Signs and I&Os Vital Signs Date Time Temp Pulse Resp B/P B/P Pulse O2 O2 Flow FiO2 Mean Ox Delivery Rate 07/14 1200 96 Nasal 5.0L Cannula 07/14 0819 40 07/14 800 96 Ventilator 40% 07/14 07 98.3 68 20 113/64 95 Ventilator 40% 07/14 0633 40 07/14 0428 40 07/14 0400 95 Ventilator 40% 07/14 0204 40 07/14 0000 96 Ventilator 40% 07/13 2300 98.9 68 15 103/45 96 Ventilator 40% 07/13 2229 98.9 07/13 2220 40 07/13 2000 96 Ventilator 40% 07/13 1904 40 07/13 1640 40 07/13 1600 95 Ventilator 40% 07/13 1600 68 21 99/43 95 Ventilator 40% Intake & Output 07/14 1600 07/14 0400 07/13 1600 07/13 0400 07/12 1600 07/12 0400 Intake Total 3103.4 3257.6 2418 1682 2534 1356 Output Total 4285 2130 3280 2030 3675 1425 Balance -1181.6 1127.6 -862 -348 -1141 -69 Intake, IV 2269.4 3257.6 2418 1232 2534 1356 Intake, Lipid 166.0 Intake, Oral 0 0 0 0 0 Intake, Other 450 Intake, 668 TPN/PPN Number 0 0 Bowel Movements Output, 249 664 4068 1155 1900 825 Drainage Output, 190 200 150 100 Gastric Drainage Output, Urine 3655 1850 5214 906 3905 600 Physical Exam: General: Well-developed, obese white male in NAD Skin: No rash or jaundice HEENT: Conjunctivae pink, sclerae anicteric Neck: Without masses or adenopathy Chest: Clear anterolaterally Heart: Regular rate and rhythm without S3 or rub, heart sounds distant Abdomen: Obese, soft, minimally tender, without palpable masses, dressings intact Extremities: Positive edema without cyanosis, chronic lower extremity skin changes, dressings intact Neuro: Awake and alert, no focal findings, no asterixis or myoclonus Results Pertinent Lab Results: Laboratory Tests 07/14 07/13 0500 0348 Chemistry Sodium (137 - 145 mmol/L) 144 146 H Potassium (3.5 - 5.1 mmol/L) 4.6 4.3 Chloride (98 - 107 mmol/L) 117 H 118 H Carbon Dioxide (22 - 30 mmol/L) 18 L 17 L Anion Gap (5 - 16) 8 10 BUN (9 - 20 mg/dL) 21 H 32 H Creatinine (0.7 - 1.2 mg/dL) 1.0 1.3 H Estimated GFR (>60 ml/min) > 60 54 L Glucose (65 - 99 mg/dL) 266 H 175 H Calcium (8.4 - 10.2 mg/dL) 7.3 L 7.4 L Phosphorus (2.5 - 4.5 mg/dL) 2.4 L 2.4 L Magnesium (1.6 - 2.3 mg/dL) 2.0 2.1 Total Bilirubin (0.2 - 1.3 mg/dL) 0.6 0.4 AST (17 - 59 U/L) 27 26 ALT (21 - 72 U/L) 33 29 Albumin (3.5 - 5.0 g/dL) 1.8 L 1.7 L Prealbumin (17.6 - 36.0 mg/dL) 6.3 L Triglycerides (<150 mg/dL) 233 H Hematology CBC w Diff NO MAN DIFF REQ MAN DIFF ORDERED WBC (4.8 - 10.8 /CUMM) 15.7 H 16.7 H RBC (4.70 - 6.10 /CUMM) 3.72 L 3.92 L Hgb (14.0 - 18.0 G/DL) 10.7 L 11.0 L Hct (42 - 52 %) 32.3 L 34.5 L MCV (80.0 - 94.0 FL) 86.8 88.2 MCH (27.0 - 31.0 PG) 28.6 28.1 RDW (11.5 - 14.5 %) 16.7 H 16.6 H Plt Count (130 - 400 /CUMM) 172 155 MPV (7.4 - 10.4 FL) 9.2 9.4 Gran % (42.2 - 75.2 %) 76.0 H 78.2 H Lymphocytes % (20.5 - 51.1 %) 17.6 L 16.2 L Monocytes % (1.7 - 9.3 %) 4.8 5.0 Eosinophils % (0 - 5 %) 1.6 0.5 Basophils % (0.0 - 2.0 %) 0 0.1 Absolute Granulocytes (1.4 - 6.5 /CUMM) 11.9 H 13.0 H Segmented Neutrophils (42.2 - 75.2 %) 70 Band Neutrophils (0.0 - 5.0 %) 3 Absolute Lymphocytes (1.2 - 3.4 /CUMM) 2.8 2.7 Lymphocytes (20.5 - 51.1 %) 20 L Monocytes (1.7 - 9.3 %) 7 Absolute Monocytes (0.10 - 0.60 /CUMM) 0.8 H 0.8 H Absolute Eosinophils (0.0 - 0.7 /CUMM) 0.2 0.1 Absolute Basophils (0.0 - 0.2 /CUMM) 0 0 Platelet Estimate (ADEQUATE) ADEQUATE Normocytic RBCs VERIFIED Normochromic RBCs VERIFIED PUBS MCHC (33.0 - 37.0 G/DL) 33.0 31.9 L 07/12 07/12 0530 0348 Blood Gas pH (7.35 - 7.45 PH) 7.38 pCO2 (35 - 45 TORR) 31 L pO2 (80 - 100 TORR) 76 L HCO3 (21 - 28 MEQ/L) 18 L ABG O2 Sat (Measured) (>96.0 %) 93.0 L P-50 (Temp Corrected) Y Carboxyhemoglobin (1.5 - 5.0 %) 0.1 L O2 Concentration % 40% Temperature (97.0 - 100.0 FARH) 99.3 Respiration Rate (BPM) 20 O2 Delivery Method ESPRIT Vent Mode AC Expiratory Pressure (CMH2O/P) 5 Tidal Volume (CC) 600 Chemistry Sodium (137 - 145 mmol/L) 146 H Potassium (3.5 - 5.1 mmol/L) 3.9 Chloride (98 - 107 mmol/L) 121 H Carbon Dioxide (22 - 30 mmol/L) 17 L Anion Gap (5 - 16) 7 BUN (9 - 20 mg/dL) 54 H Creatinine (0.7 - 1.2 mg/dL) 2.6 H Estimated GFR (>60 ml/min) 24 L Glucose (65 - 99 mg/dL) 170 H Calcium (8.4 - 10.2 mg/dL) 7.1 L Phosphorus (2.5 - 4.5 mg/dL) 3.5 Magnesium (1.6 - 2.3 mg/dL) 2.2 Total Bilirubin (0.2 - 1.3 mg/dL) 0.5 AST (17 - 59 U/L) 29 ALT (21 - 72 U/L) 32 Albumin (3.5 - 5.0 g/dL) 1.6 L Coagulation PT (9.4 - 12.5 SEC) 14.4 H INR (0.90 - 1.17) 1.38 H Hematology CBC w Diff NO MAN DIFF REQ WBC (4.8 - 10.8 /CUMM) 14.2 H RBC (4.70 - 6.10 /CUMM) 4.02 L Hgb (14.0 - 18.0 G/DL) 11.3 L Hct (42 - 52 %) 35.0 L MCV (80.0 - 94.0 FL) 87.0 MCH (27.0 - 31.0 PG) 28.0 RDW (11.5 - 14.5 %) 16.2 H Plt Count (130 - 400 /CUMM) 143 MPV (7.4 - 10.4 FL) 8.6 Gran % (42.2 - 75.2 %) 76.4 H Lymphocytes % (20.5 - 51.1 %) 18.2 L Monocytes % (1.7 - 9.3 %) 4.8 Eosinophils % (0 - 5 %) 0.4 Basophils % (0.0 - 2.0 %) 0.2 Absolute Granulocytes (1.4 - 6.5 /CUMM) 10.8 H Absolute Lymphocytes (1.2 - 3.4 /CUMM) 2.6 Absolute Monocytes (0.10 - 0.60 /CUMM) 0.7 H Absolute Eosinophils (0.0 - 0.7 /CUMM) 0.1 Absolute Basophils (0.0 - 0.2 /CUMM) 0 PUBS MCHC (33.0 - 37.0 G/DL) 32.2 L Miscellaneous Phlebotomy Draw Site RIGHT RADIAL 07/11 2201 Chemistry Sodium (137 - 145 mmol/L) 143 Potassium (3.5 - 5.1 mmol/L) 4.0 Chloride (98 - 107 mmol/L) 117 H Carbon Dioxide (22 - 30 mmol/L) 17 L Anion Gap (5 - 16) 9 BUN (9 - 20 mg/dL) 58 H Creatinine (0.7 - 1.2 mg/dL) 3.3 H Estimated GFR (>60 ml/min) 18 L Glucose (65 - 99 mg/dL) 181 H Lactic Acid (0.7 - 2.1 mmol/L) 2.1 Calcium (8.4 - 10.2 mg/dL) 7.1 L Phosphorus (2.5 - 4.5 mg/dL) 3.9 Magnesium (1.6 - 2.3 mg/dL) 2.2 Total Bilirubin (0.2 - 1.3 mg/dL) 0.5 AST (17 - 59 U/L) 28 ALT (21 - 72 U/L) 31 Albumin (3.5 - 5.0 g/dL) 1.6 L Hematology CBC w Diff NO MAN DIFF REQ WBC (4.8 - 10.8 /CUMM) 14.1 H RBC (4.70 - 6.10 /CUMM) 4.10 L Hgb (14.0 - 18.0 G/DL) 11.8 L Hct (42 - 52 %) 35.7 L MCV (80.0 - 94.0 FL) 87.1 MCH (27.0 - 31.0 PG) 28.8 RDW (11.5 - 14.5 %) 16.7 H Plt Count (130 - 400 /CUMM) 157 MPV (7.4 - 10.4 FL) 9.1 Gran % (42.2 - 75.2 %) 75.1 Lymphocytes % (20.5 - 51.1 %) 17.8 L Monocytes % (1.7 - 9.3 %) 6.8 Eosinophils % (0 - 5 %) 0.2 Basophils % (0.0 - 2.0 %) 0.1 Absolute Granulocytes (1.4 - 6.5 /CUMM) 10.6 H Absolute Lymphocytes (1.2 - 3.4 /CUMM) 2.5 Absolute Monocytes (0.10 - 0.60 /CUMM) 1.0 H Absolute Eosinophils (0.0 - 0.7 /CUMM) 0 Absolute Basophils (0.0 - 0.2 /CUMM) 0 PUBS MCHC (33.0 - 37.0 G/DL) 33.0
[2017-07-14 16:00] VITALS: BP 122/70
--- NOTE | 2017-07-14 18:23 | PN- Cardiology ---
Subjective Subjective: Extubated. Awake and alert. PVCs on monitoring, but no malignant/potentially malignant ventricular events. Objective Vital Signs and I&Os Vital Signs Date Time Temp Pulse Resp B/P B/P Pulse O2 O2 Flow FiO2 Mean Ox Delivery Rate 07/14 1600 93 Nasal 4.0L Cannula 07/14 1600 98.0 68 30 122/70 93 Nasal 4.0L Cannula 07/14 1200 96 Nasal 5.0L Cannula 07/14 819 40 07/14 800 96 Ventilator 40% 07/14 700 98.3 68 20 113/64 95 Ventilator 40% 07/14 0633 40 07/14 0428 40 07/14 0400 95 Ventilator 40% 07/14 0204 40 07/14 0000 96 Ventilator 40% 07/13 2300 98.9 68 15 103/45 96 Ventilator 40% 07/13 2229 98.9 07/13 2220 40 07/13 2000 96 Ventilator 40% 07/13 1904 40 Intake & Output 07/14 0000 07/13 1600 07/13 0000 Intake Total 1436.0 1667.4 3257.6 1218 1200 1682 Output Total 2740 1545 2130 1550 1730 2030 Balance -1304.0 122.4 1127.6 -332 -530 -348 Intake, IV 1019 1250.4 3257.6 1218 1200 1232 Intake, Lipid 83.0 83.0 Intake, Oral 0 0 0 Intake, Other 450 Intake, 334 334 TPN/PPN Output, 90 350 280 511 602 4332 Drainage Output, 190 100 100 150 Gastric Drainage Output, Urine 2650 1005 1850 700 730 725 Physical Exam: Well-developed, morbidly obese elderly male who is intubated and sedated. Vital signs: See above. Neck: No JVD, no bruits. Lungs: Decreased breath sounds bilaterally. Heart: S1, S2 with soft (grade 1/6) systolic murmur. Abdomen: Soft, absent bowel sounds. Extremities: No edema. Current Medications: Current Medications Sig/Buck Start time Last Medication Dose Route Stop Time Status Admin Acetaminophen 1,000 MG .STK-MED ONE 07/14 456 DC IV 07/14 457 Acetaminophen 1,000 MG .STK-MED ONE 07/13 2228 DC IV 11/08 2229 Acetaminophen 1,000 MG Q6H PRN 07/09 1900 07/14 N/A 1 UNIT IV 0458 Ampicillin Sodium/ 3,000 MG Q8H 07/12 1800 07/14 Sulbactam Sodium IV 1739 Sodium Chloride 100 ML Budesonide/ 2 PUF BID 07/09 220 07/13 Formoterol Fumarate INH 2237 Fat Emulsion 350 ML Q24H 07/14 190 Intravenous IV 07/15 185 Fat Emulsion 250 ML Q24H 07/13 190 07/13 Intravenous IV 07/14 1852003 Fentanyl Citrate 1,000 MCG Q24H 07/13 1000 DC Dextrose/Water 250 ML IV Furosemide 40 MG ONCE ONE 07/14 1130 DC 07/14 IV 07/14 1131 1135 Heparin Sodium 5,000 UNIT Q8 07/10 0138 07/14 (Porcine) SC 1434 Insulin Human Regular 8 UNITS .STK-MED ONE 07/14 0528 DC IV 07/14 0529 Insulin Human Regular 8 UNITS .STK-MED ONE 07/14 0029 DC IV 07/14 0030 Insulin Human Regular 6 UNITS .STK-MED ONE 07/13 1917 DC IV 07/13 191 Insulin Human Regular 0 Q6 07/12 0600 07/14 SC 1820 Methylprednisolone 40 MG ONCE ONE 07/14 1130 DC 07/14 IV 07/14 1131 1130 Morphine Sulfate 2 MG Q4P PRN 07/14 1145 IV Nystatin 1 GENE TID 07/09 2200 IA 07/13 TOP 1717 Octreotide Acetate 500 MCG Q10H 07/13 1200 07/14 Dextrose/Water 500 ML IV 1745 Pantoprazole Sodium 40 MG BID 07/10 1016 07/14 IV 0918 Potassium Chloride 20 MEQ Q8H 07/12 0930 07/14 Dextrose/Sodium 1,000 ML IV 0919 Chloride Total Parenteral 1 UNIT ONE 07/14 1900 AC Nutrition IV 07/15 1859 Total Parenteral 1 UNIT ONE 07/13 1900 DC 07/13 Nutrition IV 07/14 Results Last 48 Hrs of Labs/Mics: Laboratory Tests 07/14/17 0500: Anion Gap 8, Estimated GFR > 60, Glucose 266 H, Calcium 7.3 L, Phosphorus 2.4 L, Magnesium 2.0, Total Bilirubin 0.6, AST 27, ALT 33, Albumin 1.8 L, Prealbumin 6.3 L, Triglycerides 233 H, CBC w Diff NO MAN DIFF REQ, RBC 3.72 L , MCV 86.8, MCH 28.6, RDW 16.7 H, MPV 9.2, Gran % 76.0 H, Lymphocytes % 17.6 L, Monocytes % 4.8, Eosinophils % 1.6, Basophils % 0, Absolute Granulocytes 11.9 H, Absolute Lymphocytes 2.8, Absolute Monocytes 0.8 H, Absolute Eosinophils 0.2, Absolute Basophils 0, PUBS MCHC 33.0 07/13/17 0348: Anion Gap 10, Estimated GFR 54 L, Glucose 175 H, Calcium 7.4 L, Phosphorus 2.4 L, Magnesium 2.1, Total Bilirubin 0.4, AST 26, ALT 29, Albumin 1.7 L, CBC w Diff MAN DIFF ORDERED, RBC 3.92 L, MCV 88.2, MCH 28.1, RDW 16.6 H, MPV 9.4, Gran % 78.2 H, Lymphocytes % 16.2 L, Monocytes % 5.0, Eosinophils % 0.5, Basophils % 0.1, Absolute Granulocytes 13.0 H, Segmented Neutrophils 70, Band Neutrophils 3, Absolute Lymphocytes 2.7, Lymphocytes 20 L, Monocytes 7, Absolute Monocytes 0.8 H, Absolute Eosinophils 0.1, Absolute Basophils 0, Platelet Estimate ADEQUATE, Normocytic RBCs VERIFIED, Normochromic RBCs VERIFIED , PUBS MCHC 31.9 L Recent Imaging Studies: CXR (07/14/2017): 1. Endotracheal tube tip 3.6 cm above the kika. 2. Enteric tube courses into the abdomen with tip not included. 3. PICC line tip poorly visualized but likely in distal SVC. 4. No change in bilateral small pleural effusions and associated bibasilar atelectasis or pneumonia. Assessment/Plan Assessment/Plan [id number] w/ hx of morbid obesity, LIAM on CPAP, COPD, HTN, HLD, DM, CAD/ICM (s/ p IMI in 1998, CABG 4 w/ WHITE to LAD and individual SVGs to Dx, OM, PDA & MAZE) , and recurrent PAF who presented in an unkempt state via ambulance with a urinary tract infection and subsequently had a perforation of a duodenal ulcer for which he underwent surgery (Fabrizio patch) on 07/09/2017. Extubated at approximately 12:10 PM today. Blood pressure improved. Recommendations: * If further ventricular tachycardia will place on amiodarone. * Continue DVT prophylaxis. Continue telemetry? Not applicable (In ICU.)
[2017-07-15] VITALS: BP 118/70
[2017-07-15 05:25] LABS: ABSOLUTE BASOPHIL COUNT 0.1 /CUMM (0.0-0.2); ABSOLUTE EOSINOPHIL COUNT 0.3 /CUMM (0.0-0.7); ABSOLUTE GRANULOCYTE CT 12.9 /CUMM (1.4-6.5); ABSOLUTE LYMPH COUNT 3.3 /CUMM (1.2-3.4); BASOPHIL % 0.3 % (0.0-2.0); EOSINOPHIL % 1.5 % (0-5); GRANULOCYTE % 73.9 % (42.2-75.2); HEMATOCRIT 34.1 % (42-52); MEAN CORPUSCULAR HGB 28.7 PG (27.0-31.0); MEAN CORPUSCULAR HGB CONC 32.8 G/DL (33.0-37.0); MEAN CORPUSCULAR VOLUME 87.5 FL (80.0-94.0); MEAN PLATELET VOLUME 9.5 FL (7.4-10.4); PLATELET COUNT 192 /CUMM (130-400); RBC DISTRIBUTION WIDTH 16.5 % (11.5-14.5); WHITE BLOOD CELL COUNT 17.4 /CUMM (4.8-10.8)
[2017-07-15 08:00] VITALS: BP 130/60
--- NOTE | 2017-07-15 08:20 | RADIOLOGY REPORT ---
EXAMINATION: XR PORTABLE CHEST CLINICAL INFORMATION: Follow-up after extubation COMPARISON: 07/14/2017 TECHNIQUE: Portable frontal view of the chest was obtained. FINDINGS: The right arm peripherally inserted catheter extends into the distal superior vena cava. The enteric tube has been removed. Endotracheal tube has been removed. There are persistent hazy bibasilar opacities, compatible with atelectasis, similar in appearance compared to the prior exam. Probable trace bilateral pleural effusions, as well. Surgical changes from prior coronary artery bypass grafting with intact sternotomy wires in place. Again noted is the cardiac pacemaker/AICD. IMPRESSION: 1. Interval removal of endotracheal tube and enteric tube. 2. Persistent bibasilar atelectasis and likely trace pleural effusions, similar in appearance compared to 07/14/2017. 3. No acute pulmonary edema or other significant interval change.
--- NOTE | 2017-07-15 08:28 | PN- General Surgery ---
Surgical Brief Attending Note Brief Attending Note: INCREASED OUTPUT SINCE REMOVAL OF ENTERIC TUBE. DISCUSSED WITH IR. NEEDS REPLACEMENT. NGT TO BE PLACED BY NURSING. IR WILL ADVANCE THROUGH PYLORUS.
--- NOTE | 2017-07-15 09:38 | PN- CRCU ---
Subjective HPI/Critical Care Issues: Continues to do well Extubated successfully Diuresis is ongoing Continues to be afebrile On 4 L nasal cannula Drainage significantly elevated since removal of the entry tube from the GABRIELA Chest x-ray showed bibasilar atelectasis trace pleural effusion Blood work reviewed potassium low anion gap is normal bilirubin normal white count elevated at 17.4 ABG reviewed Objective Current Medications: Current Medications Sig/Buck Start time Last Medication Dose Route Stop Time Status Admin Acetaminophen 1,000 MG .STK-MED ONE 07/15 0042 DC IV 07/15 0043 Acetaminophen 1,000 MG Q6H PRN 07/09 1900 DC 07/15 N/A 1 UNIT IV 0045 Ampicillin Sodium/ 3,000 MG Q8H 07/12 1800 07/15 Sulbactam Sodium IV 022 Sodium Chloride 100 ML Budesonide/ 2 PUF BID 07/09 2200 AC 07/14 Formoterol Fumarate INH 2205 Fat Emulsion 350 ML Q24H 07/14 1900 AC 07/14 Intravenous IV 07/15 185 205 Fat Emulsion 250 ML Q24H 07/13 1900 DC 07/13 Intravenous IV 07/14 1852003 Fentanyl Citrate 1,000 MCG Q24H 07/13 1000 DC Dextrose/Water 250 ML IV Furosemide 40 MG ONCE ONE 07/14 1130 DC 07/14 IV 07/14 1131 1135 Heparin Sodium 5,000 UNIT Q8 07/10 0138 07/15 (Porcine) SC 0607 Hydrocortisone 100 MG .STK-MED ONE 07/14 1128 DC Sodium Succinate IM 07/14 1129 Insulin Human Regular 10 UNITS .STK-MED ONE 07/15 0026 DC IV 07/15 0027 Insulin Human Regular 9 UNITS .STK-MED ONE 07/14 1430 DC IV 07/14 1431 Insulin Human Regular 0 Q6 07/12 0600 DC 07/15 SC 0603 Methylprednisolone 40 MG ONCE ONE 07/14 1130 DC 07/14 IV 07/14 1131 1130 Morphine Sulfate 2 MG Q4P PRN 07/14 1145 AC IV Octreotide Acetate 500 MCG Q20H 07/15 1400 AC Dextrose/Water 500 ML IV Octreotide Acetate 500 MCG Q10H 07/13 1200 DC 07/14 Dextrose/Water 500 ML IV 1745 Pantoprazole Sodium 40 MG BID 07/10 1016 AC 07/14 IV 2057 Potassium Chloride 40 MEQ ONCE ONE 07/15 930 DC PO 07/15 931 Potassium Chloride 20 MEQ Q8H 07/12 930 AC 07/15 Dextrose/Sodium 1,000 ML IV 0221 Chloride Total Parenteral 1 UNIT ONE 07/14 1900 AC Nutrition IV 07/15 1859 Total Parenteral 1 UNIT ONE 07/13 1900 DC 07/13 Nutrition IV 07/14 Vital Signs & I&O Last 24 Hrs of Vitals and I&O: Vital Signs Date Time Temp Pulse Resp B/P B/P Pulse O2 O2 Flow FiO2 Mean Ox Delivery Rate 07/15 800 97.9 72 22 130/60 95 Nasal 4.0L Cannula 07/15 0800 95 Nasal 4.0L Cannula 07/15 0400 94 Nasal 4.0L Cannula 07/15 0000 94 Nasal 4.0L Cannula 07/15 0000 98.0 69 18 118/70 94 Nasal 4.0L Cannula 07/14 2000 95 Nasal 4.0L Cannula 07/14 1600 93 Nasal 4.0L Cannula 07/14 1600 98.0 68 30 122/70 93 Nasal 4.0L Cannula 07/14 1200 96 Nasal 5.0L Cannula Intake & Output 07/15 1600 07/15 0800 07/15 0000 Intake Total 1312 1236.8 Output Total 1625 2150 Balance -313 -913.2 Intake, IV 1312 1236.8 Intake, Oral 0 Number 1 Bowel Movements Output, 800 350 Drainage Output, Urine 825 1800 Impression/Plan Impression/Plan Impression/Plan: CT IMPRESSION: 1. There is extravasation of contrast and there is free air in the upper abdomen consistent with history of duodenal perforation with persistent leakage from the bowel. The percutaneous catheter in place in the right upper quadrant does lie within the largest collection near the tip of the right lobe of liver. 2. Bilateral pleural effusions with bibasilar infiltrate/atelectasis. This critical result was discussed with Dr. Hughes on 07/12/2017, 5:28 PM and it was ascertained that the content and urgency of the report was understood at the time of direct communication. DICTATED BY: LILIANA ACOSTA MD DATE/TIME DICTATED:07/12/171708 Afebrile. Extubated sleeping Skin reveals no rash. HEENT negative. Neck supple with no adenopathy; right IJ triple-lumen catheter in place, with no inflammation at the site. Lungs decreased breath sounds bilaterally. Heart regular rhythm with no murmur. Abdomen is obese, distended, tender to palpation, Incision noted with a gabriela drain in the rt side Back no CVA tenderness. Extremities right hip incision clean, with no erythema or drainage; uperficial ulcerations over the anterior tibial aspects of both legs, with 1+ edema bilaterally. Neuro is without focality. 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 NOw being managed conservatively per surg, with tpn, octreotide, and post pyloric og tube, to be placed today * REsolved Acute respiratory insufficiency due to above with no clinical evidence suggestive of pneumonia. Status post extubation * Sig drainage from the gabriela biliary leak from ongoing perf, with conservative mgt per surg * REsolved septic shock now off vasopressors with adequate fluid resuscitation * Significant ischemic heart disease with low ejection fraction high risk for fluid overload. Previous pafib in sinus now with a pacer and AICD. 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 * H/O LIAM was on cpap RECOMMENDATION * Please place an NG tube and subsequently patient should go down to interventional radiology to advance his tube to postpyloric space * Keep pt even and reduce IV fluids please reassess the need for IV fluids every 8 hours as he could go into pulmonary edema. Lasix 20 mg IV 1 today. * Cont tpn * Strict sugar control with sliding scale * When necessary morphine * Nothing by mouth * Continue broad-spectrum antibiotics * Intravenous pantoprazole * Heparin subcutaneous * Cardio follow up * Watch for pulm edema Pt critically ill tts 40 mins
--- NOTE | 2017-07-15 10:27 | PN- Infect Dx ---
Subjective Subjective: Afebrile on steroids without complaints. He was successfully extubated yesterday and does not report shortness of breath. He does note mild abdominal discomfort. He still has a significant amount of output from the WILLEM drain. Objective Last 24 Hrs of Vital Signs/I&O Vital Signs Date Time Temp Pulse Resp B/P B/P Pulse O2 O2 Flow FiO2 Mean Ox Delivery Rate 07/15 800 97.9 72 22 130/60 95 Nasal 4.0L Cannula 07/15 800 95 Nasal 4.0L Cannula 07/15 0400 94 Nasal 4.0L Cannula 07/15 0000 94 Nasal 4.0L Cannula 07/15 98.0 69 18 118/70 94 Nasal 4.0L Cannula 07/14 2000 95 Nasal 4.0L Cannula 07/14 1600 93 Nasal 4.0L Cannula 07/14 1600 98.0 68 30 122/70 93 Nasal 4.0L Cannula 07/14 1200 96 Nasal 5.0L Cannula Intake & Output 07/15 0807/15 0000 Intake Total 1312 1236.8 Output Total 1625 2150 Balance -313 -913.2 Intake, IV 1312 1236.8 Intake, Oral 0 Number 1 Bowel Movements Output, 800 350 Drainage Output, Urine 825 1800 Physical Exam Other Physical Findings: He appears comfortable in no acute distress Lungs are clear Heart regular rhythm with no murmur Abdomen is distended, mildly tender on palpation on the right, with positive bowel sounds; WILLEM drain with nearly 800 mL output yesterday and 800 mL overnight Extremities 1-2+ edema both upper extremities; PICC in the right upper extremity with no inflammation at the site Duvall catheter remains in place Results Last 24 Hours of Lab Results: Laboratory Tests 07/15 405 Chemistry Sodium (137 - 145 mmol/L) 143 Potassium (3.5 - 5.1 mmol/L) 3.8 Chloride (98 - 107 mmol/L) 113 H Carbon Dioxide (22 - 30 mmol/L) 22 Anion Gap (5 - 16) 9 BUN (9 - 20 mg/dL) 16 Creatinine (0.7 - 1.2 mg/dL) 0.9 Estimated GFR (>60 ml/min) > 60 Glucose (65 - 99 mg/dL) 211 H Calcium (8.4 - 10.2 mg/dL) 7.5 L Phosphorus (2.5 - 4.5 mg/dL) 2.4 L Magnesium (1.6 - 2.3 mg/dL) 1.7 Total Bilirubin (0.2 - 1.3 mg/dL) 0.3 AST (17 - 59 U/L) 31 ALT (21 - 72 U/L) 36 Albumin (3.5 - 5.0 g/dL) 1.8 L Hematology CBC w Diff NO MAN DIFF REQ WBC (4.8 - 10.8 /CUMM) 17.4 H RBC (4.70 - 6.10 /CUMM) 3.90 L Hgb (14.0 - 18.0 G/DL) 11.2 L Hct (42 - 52 %) 34.1 L MCV (80.0 - 94.0 FL) 87.5 MCH (27.0 - 31.0 PG) 28.7 RDW (11.5 - 14.5 %) 16.5 H Plt Count (130 - 400 /CUMM) 192 MPV (7.4 - 10.4 FL) 9.5 Gran % (42.2 - 75.2 %) 73.9 Lymphocytes % (20.5 - 51.1 %) 18.7 L Monocytes % (1.7 - 9.3 %) 5.6 Eosinophils % (0 - 5 %) 1.5 Basophils % (0.0 - 2.0 %) 0.3 Absolute Granulocytes (1.4 - 6.5 /CUMM) 12.9 H Absolute Lymphocytes (1.2 - 3.4 /CUMM) 3.3 Absolute Monocytes (0.10 - 0.60 /CUMM) 1.0 H Absolute Eosinophils (0.0 - 0.7 /CUMM) 0.3 Absolute Basophils (0.0 - 0.2 /CUMM) 0.1 PUBS MCHC (33.0 - 37.0 G/DL) 32.8 L Last 24 Hours of Les Results: No new cultures Recent Imaging Studies: Chest x-ray July 15, personally reviewed, reveals bibasilar densities, right greater than left with probable effusions Assessment/Plan Impression: Stable, status post successful activation yesterday, though continues to have a significant amount of output through the WILLEM drain, suggesting an ongoing duodenal leak, which was demonstrated on his recent CT scan, with no apparent plans for reexploration at this time. He remains afebrile but his white blood cell count remains elevated, possibly secondary to the steroids, given yesterday , apparently in anticipation of extubation, or to his leak, and, if his white blood cell count remains elevated, repeat CT scan may need to be considered to rule out a collection. He remains on Unasyn now 6 days status post exploratory laparotomy and Fabrizio patch for a perforated duodenal ulcer. Suggestion: 1. Further management of his duodenal leak per Surgery 2. Will need to consider a repeat CT of the abdomen and pelvis if his white blood cell count remains elevated 3. Continue Unasyn Shala Burciaga MD will be covering over the weekend
--- NOTE | 2017-07-15 12:00 | PN- Cardiology ---
Subjective Subjective: No complaints. Objective Vital Signs and I&Os Vital Signs Date Time Temp Pulse Resp B/P B/P Pulse O2 O2 Flow FiO2 Mean Ox Delivery Rate 07/15 800 97.9 72 22 130/60 95 Nasal 4.0L Cannula 07/15 08 95 Nasal 4.0L Cannula 07/15 0400 94 Nasal 4.0L Cannula 07/15 0000 94 Nasal 4.0L Cannula 07/15 0000 98.0 69 18 118/70 94 Nasal 4.0L Cannula 07/14 2000 95 Nasal 4.0L Cannula 07/14 1600 93 Nasal 4.0L Cannula 07/14 1600 98.0 68 30 122/70 93 Nasal 4.0L Cannula 07/14 1200 96 Nasal 5.0L Cannula Intake & Output 07/15 0807/15 0000 07/14 1600 07/14 0807/14 0000 Intake Total 1312 1236.8 1436.0 1667.4 3257.6 Output Total 1625 2150 2740 1545 2130 Balance -313 -913.2 -1304.0 122.4 1127.6 Intake, IV 1312 1236.8 1019 1250.4 3257.6 Intake, Lipid 83.0 83.0 Intake, Oral 0 0 0 Intake, 334 334 TPN/PPN Number 1 Bowel Movements Output, 800 350 90 350 280 Drainage Output, 190 Gastric Drainage Output, Urine 825 1800 2650 1005 1850 Physical Exam: Morbidly obese, elderly male in no acute distress with nasal 02 & NG tube in place. Vital signs: See above. Neck: No JVD, no bruits. Lungs: Decreased breath sounds bilaterally. Heart: S1, S2 with grade 1/6 systolic murmur. Abdomen: Soft, decreased bowel sounds. Extremities: No edema. Current Medications: Current Medications Sig/Buck Start time Last Medication Dose Route Stop Time Status Admin Acetaminophen 1,000 MG .STK-MED ONE 07/15 004 DC IV 07/15 004 Acetaminophen 1,000 MG Q6H PRN 07/09 1900 DC 07/15 N/A 1 UNIT IV 0045 Ampicillin Sodium/ 3,000 MG Q8H 07/12 1800 AC 07/15 Sulbactam Sodium IV 0941 Sodium Chloride 100 ML Budesonide/ 2 PUF BID 07/09 2200 AC 07/15 Formoterol Fumarate INH 0940 Fat Emulsion 500 ML Q24H 07/15 1900 AC Intravenous IV 07/16 185 Fat Emulsion 350 ML Q24H 07/14 1900 AC 07/14 Intravenous IV 07/15 Fat Emulsion 250 ML Q24H 07/13 1900 DC 07/13 Intravenous IV 07/14 1852003 Furosemide 20 MG ONCE ONE 07/15 1030 DC IV 07/15 1031 Heparin Sodium 5,000 UNIT Q8 07/10 0138 AC 07/15 (Porcine) SC 0607 Insulin Human Regular 10 UNITS .STK-MED ONE 07/15 0026 DC IV 07/15 0027 Insulin Human Regular 9 UNITS .STK-MED ONE 07/14 1430 DC IV 07/14 1431 Insulin Human Regular 0 Q6 07/12 0600 DC 07/15 SC 0603 Morphine Sulfate 2 MG Q4P PRN 07/14 1145 IV Octreotide Acetate 500 MCG Q20H 07/15 1400 AC Dextrose/Water 500 ML IV Octreotide Acetate 500 MCG Q10H 07/13 1200 DC 07/14 Dextrose/Water 500 ML IV 1745 Pantoprazole Sodium 40 MG BID 07/10 1016 AC 07/15 IV 0941 Potassium Chloride 20 MEQ ONCE ONE 07/15 1030 DC IV 07/15 1031 Potassium Chloride 40 MEQ ONCE ONE 07/15 0930 CAN PO 07/15 0931 Potassium Chloride 20 MEQ Q8H 07/12 0930 AC 07/15 Dextrose/Sodium 1,000 ML IV 0221 Chloride Total Parenteral 1 UNIT Q24H 07/15 190 Nutrition IV 07/16 1859 Total Parenteral 1 UNIT ONE 07/14 1900 Nutrition IV 07/15 1859 Results Last 48 Hrs of Labs/Mics: Laboratory Tests 07/15/17 0405: Anion Gap 9, Estimated GFR > 60, Glucose 211 H, Calcium 7.5 L, Phosphorus 2.4 L, Magnesium 1.7, Total Bilirubin 0.3, AST 31, ALT 36, Albumin 1.8 L, CBC w Diff NO MAN DIFF REQ, RBC 3.90 L, MCV 87.5, MCH 28.7, RDW 16.5 H, MPV 9.5, Gran % 73.9, Lymphocytes % 18.7 L, Monocytes % 5.6, Eosinophils % 1.5, Basophils % 0.3, Absolute Granulocytes 12.9 H, Absolute Lymphocytes 3.3, Absolute Monocytes 1.0 H, Absolute Eosinophils 0.3, Absolute Basophils 0.1, PUBS MCHC 32.8 L 07/14/17 0500: Anion Gap 8, Estimated GFR > 60, Glucose 266 H, Calcium 7.3 L, Phosphorus 2.4 L, Magnesium 2.0, Total Bilirubin 0.6, AST 27, ALT 33, Albumin 1.8 L, Prealbumin 6.3 L, Triglycerides 233 H, CBC w Diff NO MAN DIFF REQ, RBC 3.72 L , MCV 86.8, MCH 28.6, RDW 16.7 H, MPV 9.2, Gran % 76.0 H, Lymphocytes % 17.6 L, Monocytes % 4.8, Eosinophils % 1.6, Basophils % 0, Absolute Granulocytes 11.9 H, Absolute Lymphocytes 2.8, Absolute Monocytes 0.8 H, Absolute Eosinophils 0.2, Absolute Basophils 0, PUBS MCHC 33.0 Recent Imaging Studies: CXR (07/15/2017): 1. Interval removal of endotracheal tube and enteric tube. 2. Persistent bibasilar atelectasis and likely trace pleural effusions, similar in appearance compared to 07/14/2017. 3. No acute pulmonary edema or other significant interval change. Assessment/Plan Assessment/Plan [id number] w/ hx of morbid obesity, LIAM on CPAP, COPD, HTN, HLD, DM, CAD/ICM (s/ p IMI in 1998, CABG 4 w/ WHITE to LAD and individual SVGs to Dx, OM, PDA & MAZE) , and recurrent PAF who presented in an unkempt state via ambulance w/ UTI & subsequently had a perforation of a duodenal ulcer for which he underwent surgery (Fabrizio patch) on 07/09/2017. Extubated yesterday (07/14/2017). Increased output since removal of enteric tube with plan for replacement by IR. NG tube in place. Afebrile, but WBC count remains elevated. Repeat CT of abdomen if WBC remains elevated. Blood pressure improved. Recommendations: * If further ventricular tachycardia will place on amiodarone. * Continue DVT prophylaxis. Continue telemetry? Not applicable (In ICU.)
--- NOTE | 2017-07-15 13:57 | PN- Resident CRCU ---
Subjective HPI/CRCU Issues: - Septic shock 2/2 perforated duodenal ulcer s/p Fabrizio patch POD Day #4 - Metabolic acidosis - Resolving - CAD s/p CABG - HFrEF with EF of 25% s/p AICD - PAF on Tikosyn not on AC - USMAN- Resolved - Acute respiratory failure curently intubated- Stable. 24 Hour Events: Stable. Flow sheet reviewed. Negative fluid balance. Objective Vital Signs & I&O Last 8 Hrs of Vitals and I&O: Extubated successfully Diuresis with Lasix, negative balance. Afebrile. On 4 L nasal cannula. Drainage significantly elevated since removal of the entry tube from the WILLEM Exam General Appearance: well developed/nourished, no apparent distress Respiratory: normal breath sounds, chest non-tender Cardiovascular: regular rate/rhythm, edema Gastrointestinal: normal bowel sounds, non-tender Extremities: normal inspection Weaning Parameters NIF: 21 Minute Volume: 11.5 Resp rate: 22 Vt: 478 Heart Rate: 76 Weaning Schedule Start Time: 0909 Minute Volume: 12.3 Resp Rate: 25 Vt: 594 Heart Rate: 76 End Time: 1210 Minute Volume: 11.8 Resp Rate: 22 Vt: 604 Heart Rate: 69 Current Medications: Current Medications Sig/Buck Start time Last Medication Dose Route Stop Time Status Admin Acetaminophen 1,000 MG .STK-MED ONE 07/15 0042 DC IV 07/15 0043 Acetaminophen 1,000 MG Q6H PRN 07/09 190 VT 07/15 N/A 1 UNIT IV 0045 Ampicillin Sodium/ 3,000 MG Q8H 07/12 1800 07/15 Sulbactam Sodium IV 0941 Sodium Chloride 100 ML Budesonide/ 2 PUF BID 07/09 2200 07/15 Formoterol Fumarate INH 0940 Fat Emulsion 500 ML Q24H 07/15 1900 Intravenous IV 07/16 185 Fat Emulsion 350 ML Q24H 07/14 1900 07/14 Intravenous IV 07/15 185 205 Fat Emulsion 250 ML Q24H 07/13 190 VT 07/13 Intravenous IV 07/14 185 2004 Furosemide 20 MG ONCE ONE 07/15 1030 DC 07/15 IV 07/15 1031 1226 Heparin Sodium 5,000 UNIT Q8 07/10 0138 07/15 (Porcine) SC 1338 Insulin Human Regular 1 UNITS .STK-MED ONE 07/15 0547 DC IV 07/15 0548 Insulin Human Regular 10 UNITS .STK-MED ONE 07/15 0026 DC IV 07/15 0027 Insulin Human Regular 9 UNITS .STK-MED ONE 07/14 1430 DC IV 07/14 1431 Insulin Human Regular 0 Q6 07/12 0600 DC 07/15 SC 0603 Morphine Sulfate 2 MG Q4P PRN 07/14 1145 AC IV Octreotide Acetate 500 MCG Q20H 07/15 1400 AC 07/15 Dextrose/Water 500 ML IV 1343 Octreotide Acetate 500 MCG Q10H 07/13 1200 DC 07/14 Dextrose/Water 500 ML IV 1745 Pantoprazole Sodium 40 MG BID 07/10 1016 AC 07/15 IV 0941 Potassium Chloride 20 MEQ ONCE ONE 07/15 1030 DC 07/15 IV 07/15 1031 1226 Potassium Chloride 40 MEQ ONCE ONE 07/15 0930 CAN PO 07/15 0931 Potassium Chloride 20 MEQ Q8H 07/12 0930 AC 07/15 Dextrose/Sodium 1,000 ML IV 1338 Chloride Total Parenteral 1 UNIT Q24H 07/15 1900 AC Nutrition IV 07/16 1859 Total Parenteral 1 UNIT ONE 07/14 1900 AC Nutrition IV 07/15 1859 Impression/Plan Impression/Problem List Impression: 76 year old gentleman PAF on Tikosyn, not on AC, 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 POD 2, continues to be intuibated and requiring MV support. Plan: - Await IR intrvention for post-pylorus Ng tube placement. #Septic shock - 2/2 peritonitis from perforated duodenal ulcer - Continue to hydrate with D5/1/2NS @ 50 mls/hr. - Unasyn 3g q8. day 6. #Hypotension - 2/2 septic shock. Resolved. #CAD s/p CABG -F/u cardio recs #Hx of PAF on Tikosyn - Curently in NSR, and rate controlled - Continue to hold tikosyn. Cardio following. # Perforated duodenal ulcer - S/P Fabrizio repair yesterday with WILLEM drain - Octreotide drip to counter increased drainage. Will reacess the need and discuss with surgery tomorrow. - IV Protonix 40mg BID #Metabolic acidosis - 2/2 lactic acidosis from systemic hypoperfusion - Resolved - IVF hydration. #USMAN -Normal. Maintain negative fluid balance. - Continue IVFs. - Continue to montior - DVT prophylaxis - On heparin 5000iu TID SC - Diet - NPO - Code Status - Full Code Update: Around 6 pm, Mr. Verde was found to be tacheipnic, complaining of abdominal pain. hemodynamically stable. Abd exam revealed peritoneal signs concerning for reperforation/ peritonitis. Stat Abd CT ordered. Dr. Trimble and Dr. Stanley aware. Stat CBC, ICU bundle and lactate ordered. Ongoing antibiotics. Nephricardo Verde aware and would want to pursue aggressive care, including intubation, and resurgery, if deemed necessary. Tacheipnic to 40, will intubate. Await surgery input. Full code Problem List: 1. Acute renal failure Pain Ratin Tomorrow's Labs & Rationales: CBC ICU bundle Plan DVT/Prophylaxis: mechanical, pharmacological
[2017-07-15 16:00] VITALS: BP 114/62
--- NOTE | 2017-07-15 17:23 | INTERVENTIONAL RADIOLOGY RPT ---
CLINICAL HISTORY: The patient is a 76-year-old male with duodenal perforation, who presents to interventional radiology for advancement of his nasogastric tube to the level of the pylorus. PROCEDURES: Advancement of the nasogastric tube to the level of the pylorus. PHYSICIANS: Margie Zarate M.D., Ph.D. (attending). MONITORING: The procedure was performed with continuous blood pressure, pulse oximetry as well as heartrate monitoring was performed by an independent registered nurse. MEDICATIONS: 1. 0 mg of Versed and 50 micrograms of fentanyl were administered. 2. 0 mL of 1% lidocaine SQ. CONTRAST: 20 mL Optiray 320 through the NG tube FLUOROSCOPY TIME: 8.7 minutes NUMBER OF IMAGES: 4 COMPLICATIONS: None. ESTIMATED BLOOD LOSS: <5 mL. SPECIMENS: None. IMPLANT: None. SITE MARKING: As part of the preprocedure verification policy, a site marking procedure was initiated. Due to the nature the procedure, the insertion site could not be predetermined thus invoking the policy of exemption to site laterality and marking. Insertion site marking was performed in the procedure room in conjunction with imaging confirmation. PROCEDURE NOTE: The patient was placed supine on the fluoroscopy table. A stiff Glidewire was advanced through the nasogastric tube into the stomach. The existing nasogastric tube was removed over the wire. An end hole was cut into the nasogastric tube with care to create rounded and not sharp edges. The tube was then advanced over the wire to the level of the pylorus. Contrast injection confirmed location. The tube was secured with tape. The patient tolerated the procedure well. FINDINGS: Existing nasogastric tube was in the stomach. This was advanced to the pylorus. IMPRESSION: Successful advancement of the nasogastric tube to the pylorus. PLAN: The patient was stable after the procedure and was transferred to the interventional recovery area. The patient will be transferred to the ICU.
[2017-07-15 19:38] LABS: ABSOLUTE BASOPHIL COUNT 0 /CUMM (0.0-0.2); ABSOLUTE EOSINOPHIL COUNT 0.1 /CUMM (0.0-0.7); ABSOLUTE LYMPH COUNT 5.9 /CUMM (1.2-3.4); ABSOLUTE MONOCYTE COUNT 0.5 /CUMM (0.10-0.60); BASOPHIL % 0.1 % (0.0-2.0); EOSINOPHIL % 0.5 % (0-5); MEAN CORPUSCULAR HGB 28.1 PG (27.0-31.0); MEAN CORPUSCULAR HGB CONC 32.5 G/DL (33.0-37.0); MEAN CORPUSCULAR VOLUME 86.5 FL (80.0-94.0); MEAN PLATELET VOLUME 9.1 FL (7.4-10.4); RBC DISTRIBUTION WIDTH 16.7 % (11.5-14.5)
[2017-07-15 19:44] LABS: HEMATOCRIT 40.7 % (42-52); PLATELET COUNT 350 /CUMM (130-400); WHITE BLOOD CELL COUNT 27.6 /CUMM (4.8-10.8)
[2017-07-15 19:52] LABS: PT 13.5 SEC (9.4-12.5); PTT 31 SEC (25-37)
--- NOTE | 2017-07-15 20:02 | CT SCAN REPORT ---
EXAMINATION: CT ABDOMEN AND PELVIS WITH CONTRAST CLINICAL INFORMATION: Free fluid in the abdomen status post nasogastric tube enhancement. Peritoneal signs. COMPARISON: Chest x-rays and intraprocedural imaging 07/15/2017. CT scan of the abdomen and pelvis 07/12/2017. TECHNIQUE: Multidetector volumetric imaging was performed of the abdomen and pelvis following IV administration of 95 mL of Optiray 320 intravenous contrast. Sagittal and coronal reformatted images were obtained on the technologist's workstation. Images are degraded by beam hardening artifact from the patient's body habitus, and arms at the patient's side. DLP: 1403.34 mGy-cm FINDINGS: STOVE INSTALLER: Partially visualized AICD/pacemaker leads are demonstrated. There are sequelae of prior median sternotomy. There is an enteric tube with the tip in the region of the pylorus or distal to it. Partial right hip prosthesis is demonstrated. LUNG BASES: There are small bilateral pleural effusions. There is right greater than left lower zone atelectasis. There is evidence of median sternotomy and CABG. LIVER, GALLBLADDER, AND BILIARY TREE: The liver is normal in size, shape, and attenuation. No focal hepatic lesion or biliary ductal dilatation is present. The gallbladder is unremarkable with no evidence of radiopaque gallstones, gallbladder wall thickening, or obvious pericholecystic inflammatory changes. PANCREAS: Unremarkable. SPLEEN: Unremarkable. ADRENAL GLANDS: The adrenal glands appear normal in size. KIDNEYS AND URETERS: Both kidneys are normal in size. There are bilateral renal cysts which appear to have Hounsfield units greater than simple fluid, which may be artifactual due to the beam hardening. Bilateral nonobstructive renal calculi are seen in both kidneys. There is no hydronephrosis. The ureters are not dilated. BLADDER: The bladder is decompressed with a Duvall catheter in position. A small amount of air is seen in the bladder lumen. GASTROINTESTINAL TRACT: An enteric tube is partially visualized extending into the stomach. The tip of the tube is at the pylorus. No perforation of the stomach is demonstrated. There is contrast within the gastric lumen. The small bowel loops are not distended. There is feces and air within large bowel and rectum. There is diverticulosis in the large bowel, most extensive in the sigmoid region. There is mild free intra-abdominal air, slightly more extensive compared to prior imaging. There is free fluid and contrast within the peritoneum, less extensive compared to the prior study. ABDOMINAL WALL: The study redemonstrates a percutaneous drain from the right anterior abdominal wall, extending into the right upper quadrant with the tip just below the inferior margin of the liver laterally. The position of the tube appears similar compared to the prior study. LYMPH NODES: Evaluation for lymphadenopathy is limited due to the intra-abdominal fluid and air and technical changes as described above. VASCULAR: There is relatively extensive atheromatous calcification. The infrarenal abdominal aorta is slightly ectatic, but not aneurysmal. PELVIC VISCERA: There is free fluid in the pelvis. The prostate gland is not enlarged. Evaluation is suboptimal due to beam hardening artifact from the right arthroplasty. OSSEOUS STRUCTURES: There are multilevel degenerative changes in the thoracic and lumbar spine. There is a mild levoscoliosis in the lumbar region. There are no acute osseous findings. IMPRESSION: 1. The study demonstrates an enteric tube in the stomach with tip in the region of the pylorus. No gastric perforation is demonstrated. 2. Extravasation of contrast into the peritoneal cavity with free air in the upper abdomen is redemonstrated, as described above. 3. There has been no interval change in the percutaneous catheter in the right upper abdomen laterally. 4. Pleural effusions and atelectasis at the bases bilaterally appear relatively stable.
--- NOTE | 2017-07-15 20:35 | PN- General Surgery ---
Surgical Brief Attending Note Brief Attending Note: Events of the past few hours reviewed. Patient has become somnolent and physical examination findings c/w peritonitis not seen this morning. CT shows scattered free air and drain malpositioned in the RUQ. Suspect uncontrolled leak. Plan emergent return to OR for washout and wide drainage.
--- NOTE | 2017-07-16 00:41 | Operative Report ---
See Addendum Operative/Inv Procedure Report Surgery Date: 07/16/17 Name of Procedure: Exploratory laparotomy and suture repair duodenal ulcer with Fabrizio patch. Feeding jejunostomy Pre-Operative Diagnosis: perforated duodenal ulcer Post-Operative Diagnosis: same Estimated Blood Loss: less than 50ml Surgeon/Contract Modeler: Angel Trimble md, Ronald arellano Anesthesia: general endotracheal tube Drains: 19fr gabriela x 2 anterior and posterior to repair Microbiology: peritoneal fluid Operative Indication: critically ill man s/p fabrizio patch of duodenal ulcer with contolled leak. He now has developed recurrent peritonitis and hemodynamic changes. He presents for emergency reexploration Operative/Procedure Note Note: After consent from the patient's nephew he was brought the operative laid supine. Gen. anesthesia was obtained and his abdomen was prepped and draped. Skin dagoberto removed and the wound opened. Fascial sutures were incised and the peritoneum explored. There is diffuse turbid fluid. In the right upper quadrant there was a hematoma which was evacuated. Bookwalter retraction system was placed. There was severe tertiary type peritonitis throughout. There is fat saponification from duodenal leak. The Fabrizio patch previously placed was difficult to find. I had anesthesia place some methylene blue through the NG tube and we are able to find it. There was an obvious leak with a visible mucosa around the patch. It appeared one of the sutures had failed. At this point I took down the patch and expose the defect. It was now quite large injuring 3 cm in greatest dimension. We contemplated performing a serosal patch and/or Davina limb to repair the defect. However given the degree of peritonitis and chronic edema of the bowel felt it would be a setup for failure with the Davina limb. A serosal patch was contemplated by bringing the loop of proximal jejunum up. But given the severe kinking to be able to bring up a loop, I was concerned there would be a result bowel obstruction. So I abandoned that type of repair and elected to close the defect primarily. This was accomplished with multiple interrupted 3-0 Vicryl sutures in a Lembert fashion. Tissue came together and approximated quite well. I then placed a another patch over it with 3 interrupted Vicryl sutures. The drain previously placed was placed posterior to the ulcer a second 19 Ecu[place] Uri-Cotton drain was placed anterior to the ulcer. I then performed feeding jejunostomy. 27 years distal to the ligament Treitz site for enterotomy was created with cautery. Xu feeding jejunostomy tube was then placed into the enterotomy and pursestring suture was placed around it. We then buried the tube and a tract of bowel in a Witzel fashion. The tube was then brought through the skin and secured with a drain stitch. Sutures were placed on the peritoneal side with one the flanges to keep it in place. We then irrigated the perineal cavity normal saline. The fascia was closed with a running 0 Maxon suture. Skin was closed with dagoberto. Patient was stable throughout the case brought back to the ICU intubated CC: ISIDORO RODRÍGUEZ,JUAN Cornejo
--- NOTE | 2017-07-16 02:07 | RADIOLOGY REPORT ---
EXAMINATION: XR PORTABLE CHEST CLINICAL INFORMATION: Status post exploratory laparotomy. COMPARISON: 07/15/2017 TECHNIQUE: Portable frontal view of the chest was obtained. FINDINGS: There is an endotracheal tube in place which terminates 6 cm above the kika. Multiple cardiac leads overlie the chest. Right-sided PICC line remains in place. Left chest wall AICD/pacer is again noted. Median sternotomy wires appear intact. The right costophrenic angle is not fully included on this study. Lung volumes are low. Hazy basilar opacities are similar to prior. No pneumothorax. The cardiomediastinal silhouette remains prominent. IMPRESSION: Limited study due to the [id number]. Lung volumes are low with hazy opacity suggesting small pleural effusions with atelectasis. This is similar to prior. Endotracheal tube terminating approximately 6 cm above the kika.
[2017-07-16 02:18] LABS: MEAN CORPUSCULAR HGB 28.8 PG (27.0-31.0); MEAN CORPUSCULAR VOLUME 87.1 FL (80.0-94.0); MEAN PLATELET VOLUME 8.5 FL (7.4-10.4); PLATELET COUNT 353 /CUMM (130-400); RBC DISTRIBUTION WIDTH 16.3 % (11.5-14.5)
[2017-07-16 02:27] LABS: PT 14.5 SEC (9.4-12.5); PTT 34 SEC (25-37)
[2017-07-16 02:38] LABS: WHITE BLOOD CELL COUNT 34.7 /CUMM (4.8-10.8)
--- NOTE | 2017-07-16 04:57 | Event Note ---
Event Note Event Note: Patient arrived from the OR around 1 AM, on arrival patient intubated, he had low blood pressure, Levophed drip started, along with IV fluid hydration at 1 25 mL per hour, the patient maximum Levophed we start IV fluid boluses despite that his blood pressure remained low <60/40, we start Neosynephrine drip and continue IV fluid boluses, the patient responded marginally and blood pressure improve to be in the lower 90s systolic, after 1 hour patient spike a temp and after that he became hypotensive, ICU attending Dr. Stanley and Jeanette Franz MD Dr. where notified and he agreed to start a third pressor of vasopressin along to start the patient on fentanyl drip for sedation if the blood pressure maintained to control his overbreathing, so we gave the patient 50 mEq of sodium bicarbonate IV push as the patient had severe metabolic acidosis due to underlying lactic acid of more than 4 in the setting of leukocytosis and fever, also the patient received 2 g of IV magnesium, 100 mg of hydrocortisone, was started on IV meropenem IV Flagyl along with the current IV Unasyn antibiotic, around 7:30 AM his blood pressure was between 110-125/60-70. Patient was signed out to the morning team to follow the chest x-ray, CBC , ICU bundle and lactic acid level consider contacting nephrology to help with the underlying metabolic acidosis. Patient brother MR.Steven Walls was notified and after that he came to the hospital and we discussed with him the current situation the goal of care and he stated that he wanted to keep him full code for now, also discussed with him that if his medical condition not improve within the next 12-24 hours we'll rediscuss goals of care and which would be the next step.
--- NOTE | 2017-07-16 05:43 | PN- General Surgery ---
See Addendum Subjective Subjective: POST OP CHECK Patient intubated in ICU maxed out on pressors x3 adn febrile to 101.4 Objective Vital Signs and I&Os Vital Signs Date Time Temp Pulse Resp B/P B/P Pulse O2 O2 Flow FiO2 Mean Ox Delivery Rate 07/16 0624 101.2 07/16 0559 60 07/16 0523 110 57/39 07/16 0520 101.4 07/16 0514 60 07/16 0400 94 Ventilator 50% 07/16 0246 50 07/16 0139 97.9 108 20 62/00 07/16 0118 100 07/16 0100 96 Ventilator 100% 07/15 2146 99.1 07/15 205 100.8 07/15 2000 94 Venti Mask 55% 07/15 1600 98.4 74 20 114/62 95 Nasal 6.0L Cannula 07/15 1600 95 Nasal 6.0L Cannula 07/15 1200 95 Nasal 4.0L Cannula 07/15 0800 97.9 72 22 130/60 95 Nasal 4.0L Cannula 07/15 0800 95 Nasal 4.0L Cannula Intake & Output 07/16 0800 07/16 0000 07/15 1600 07/15 0800 07/15 0000 07/14 1600 Intake Total 1120.0 1218.0 1312 1236.8 1436.0 Output Total 1367 2250 1625 2150 2740 Balance -247.0 -1032.0 -313 -913.2 -1304.0 Intake, IV 956 153 4042 1236.8 1019 Intake, Lipid 81.0 85.0 83.0 Intake, Oral 0 Intake, 367 338 334 TPN/PPN Number 2 1 Bowel Movements Output, 950 650 800 350 90 Drainage Output, Stool 2 Output, Urine 415 0353 259 8384 2650 Physical Exam: Gen: intubated an sedated in ICU Cardiac: S1S2, tachycardic Lungs: Vented, coarse breath sounds Abd: Tense with midline dressing c/d/i, GABRIELA x2 drainaing sanguineous drainage, j- tube to gravity, absent bowel sounds, grimicing with palpation throughout : Duvall with concentrated with 95 cc in the last shift Current Medications: Current Medications Sig/Buck Start time Last Medication Dose Route Stop Time Status Admin Acetaminophen 1,000 MG Q6P PRN 07/16 0530 07/16 N/A 1 UNIT IV 0520 Acetaminophen 1,000 MG ONCE ONE 07/15 2045 DC 07/15 IV 07/15 204 205 Ampicillin Sodium/ 3,000 MG Q8H 07/12 1800 AC 07/16 Sulbactam Sodium IV 0145 Sodium Chloride 100 ML Budesonide/ 2 PUF BID 07/09 2200 AC 07/15 Formoterol Fumarate INH 0940 Fat Emulsion 500 ML Q24H 07/15 1900 AC 07/15 Intravenous IV 07/16 185 1957 Fat Emulsion 350 ML Q24H 07/14 1900 DC 07/14 Intravenous IV 07/15 185 205 Fentanyl Citrate 1,000 MCG Q24H 07/16 0500 AC Dextrose/Water 250 ML IV Fentanyl Citrate 500 MCG .STK-MED ONE 07/15 2226 DC IM 07/15 2227 Fentanyl Citrate 250 MCG .STK-MED ONE 07/15 2213 DC IM 07/15 2214 Fentanyl Citrate 0 .STK-MED ONE 07/15 1425 DC .ROUTE Furosemide 20 MG ONCE ONE 07/15 1030 DC 07/15 IV 07/15 1031 1226 Heparin Sodium 5,000 UNIT Q8 07/10 0138 07/16 (Porcine) SC 0534 Hydrocortisone 100 MG ONE ONE 07/16 0545 DC 07/16 Sodium Succinate IV 07/16 0546 0549 Hydromorphone HCl 2 MG .STK-MED ONE 07/15 2226 DC IM 07/15 2227 Hydromorphone HCl 2 MG .STK-MED ONE 07/15 2212 DC IM 07/15 2213 Insulin Aspart 0 TIDAC 07/16 0800 DC SC Insulin Aspart 0 Q6 07/16 0600 CAN SC Insulin Aspart 4 UNITS ONCE ONE 07/150 DC 07/15 SC 07/15 2201 2200 Insulin Human Regular 0 Q6 07/16 0129 07/16 SC 0532 Insulin Human Regular 0 Q6 07/12 0600 DC 07/15 SC 0603 Magnesium Sulfate 1 GM ONCE ONE 07/16 0330 07/16 Dextrose/Water 100 ML IV 07/16 0729 0343 Meropenem 1 GM Q8H 07/16 0200 07/16 IV 0219 Metronidazole 500 MG Q6H 07/16 0200 07/16 N/A 1 UNIT IV 0220 Morphine Sulfate 2 MG Q4P PRN 07/14 1145 AC 07/16 IV 0404 Norepinephrine 4 MG Q24H 07/16 0130 AC 07/16 Sodium Chloride 250 ML IV 0523 Octreotide Acetate 500 MCG Q20H 07/15 1400 AC 07/15 Dextrose/Water 500 ML IV 1343 Pantoprazole Sodium 40 MG BID 07/10 1016 AC 07/15 IV 2054 Phenylephrine HCl 40 MG Q24H 07/16 0245 AC 07/16 Sodium Chloride 250 ML IV 0242 Potassium Chloride 20 MEQ ONCE ONE 07/15 1030 DC 07/15 IV 07/15 1031 1226 Potassium Chloride 40 MEQ ONCE ONE 07/15 0930 CAN PO 07/15 0931 Potassium Chloride 20 MEQ Q8H 07/12 0930 AC 07/16 Dextrose/Sodium 1,000 ML IV 0529 Chloride Sodium Bicarbonate 75 MEQ CONTINOUS INFUSION 07/16 0630 UNir Dextrose/Sodium 1,000 ML IV Chloride Sodium Bicarbonate 50 MEQ ONCE ONE 07/16 0530 DC 07/16 IV 07/16 0531 0523 Sodium Bicarbonate 50 MEQ CONTINOUS INFUSION 07/16 0515 CAN Dextrose/Sodium 1,000 ML IV Chloride Sodium Chloride 1,000 ML BOLUS ONE 07/16 0545 AC IV 07/16 0644 Sodium Chloride 500 ML BOLUS ONE 07/16 0530 DC 07/16 IV 07/16 0629 0617 Sodium Chloride 1,000 ML BOLUS ONE 07/16 0500 DC 07/16 IV 07/16 0559 0509 Sodium Chloride 500 ML BOLUS ONE 07/16 0400 DC 07/16 IV 07/16 0459 0330 Sodium Chloride 500 ML BOLUS ONE 07/16 0230 DC 07/16 IV 07/16 0329 0221 Total Parenteral 1 UNIT Q24H 07/15 190 AC 07/15 Nutrition IV 07/16 185 1956 Total Parenteral 1 UNIT ONE 07/14 1900 DC Nutrition IV 07/15 1859 Vasopressin 40 UNITS Q16H 07/16 0500 AC 07/16 Sodium Chloride 100 ML IV 0509 Results Last 48 Hours of Labs: Laboratory Tests 07/16 07/16 07/16 07/16 0630 0545 0545 0317 Chemistry Sodium (137 - 145 mmol/L) 140 Potassium (3.5 - 5.1 mmol/L) 4.4 Chloride (98 - 107 mmol/L) 112 H Carbon Dioxide (22 - 30 mmol/L) 15 L Anion Gap (5 - 16) 13 BUN (9 - 20 mg/dL) 25 H Creatinine (0.7 - 1.2 mg/dL) 1.6 H Estimated GFR (>60 ml/min) 42 L BUN/Creatinine Ratio (7 - 25 %) 15.6 Glucose (65 - 99 mg/dL) 296 H Lactic Acid (0.7 - 2.1 mmol/L) 4.6 H Cancelled Calcium (8.4 - 10.2 mg/dL) 6.8 L Phosphorus (2.5 - 4.5 mg/dL) 3.7 Magnesium (1.6 - 2.3 mg/dL) 1.6 Total Bilirubin (0.2 - 1.3 mg/dL) 0.8 AST (17 - 59 U/L) 25 ALT (21 - 72 U/L) 33 Albumin (3.5 - 5.0 g/dL) 1.5 L Cortisol AM Sample (4.46 - 22.7 ug/dL) Cancelled Pending Hematology CBC w Diff Pending WBC Pending RBC Pending Hgb Pending Hct Pending MCV Pending MCH Pending RDW Pending Plt Count Pending MPV Pending PUBS MCHC Pending 07/16 07/16 0300 0140 Blood Gas pH (7.35 - 7.45 PH) 7.28 *L pCO2 (35 - 45 TORR) 36 pO2 (80 - 100 TORR) 76 L HCO3 (21 - 28 MEQ/L) 16 L ABG O2 Sat (Measured) (>96.0 %) 93.0 L P-50 (Temp Corrected) N Carboxyhemoglobin (1.5 - 5.0 %) 0.2 L O2 Concentration % .50 Respiration Rate (BPM) 20 O2 Delivery Method VENT Vent Mode A/C Expiratory Pressure (CMH2O/P) 5 Tidal Volume (CC) 600 Chemistry Sodium (137 - 145 mmol/L) 139 Potassium (3.5 - 5.1 mmol/L) 4.7 Chloride (98 - 107 mmol/L) 109 H Carbon Dioxide (22 - 30 mmol/L) 18 L Anion Gap (5 - 16) 12 BUN (9 - 20 mg/dL) 22 H Creatinine (0.7 - 1.2 mg/dL) 1.6 H Estimated GFR (>60 ml/min) 42 L Glucose (65 - 99 mg/dL) 295 H Lactic Acid (0.7 - 2.1 mmol/L) 4.0 H Calcium (8.4 - 10.2 mg/dL) 7.4 L Phosphorus (2.5 - 4.5 mg/dL) 5.2 H Magnesium (1.6 - 2.3 mg/dL) 1.5 L Total Bilirubin (0.2 - 1.3 mg/dL) 0.7 AST (17 - 59 U/L) 29 ALT (21 - 72 U/L) 34 Troponin I (<0.11 ng/ml) 0.01 Albumin (3.5 - 5.0 g/dL) 1.9 L Coagulation PT (9.4 - 12.5 SEC) 14.5 H INR (0.90 - 1.17) 1.39 H APTT (25 - 37 SEC) 34 Hematology CBC w Diff MAN DIFF ORDERED WBC (4.8 - 10.8 /CUMM) 34.7 *H RBC (4.70 - 6.10 /CUMM) 4.70 Hgb (14.0 - 18.0 G/DL) 13.5 L Hct (42 - 52 %) 41.0 L MCV (80.0 - 94.0 FL) 87.1 MCH (27.0 - 31.0 PG) 28.8 RDW (11.5 - 14.5 %) 16.3 H Plt Count (130 - 400 /CUMM) 353 MPV (7.4 - 10.4 FL) 8.5 Segmented Neutrophils (42.2 - 75.2 %) 69 Band Neutrophils (0.0 - 5.0 %) 17 H Lymphocytes (20.5 - 51.1 %) 10 L Metamyelocytes (0.0 - 1.0 %) 4 H Nucleated RBCs (0.0 - 0.0 /100WBC) 1 H Platelet Estimate (ADEQUATE) ADEQUATE Anisocytosis 1+ PUBS MCHC (33.0 - 37.0 G/DL) 33.0 Miscellaneous Phlebotomy Draw Site LEFT BRACHIAL Other Body Source Fld Total RBCs Counted (%) 100 07/16 07/15 07/15 0128 2100 1735 Chemistry Sodium (137 - 145 mmol/L) Cancelled 142 Potassium (3.5 - 5.1 mmol/L) Cancelled 4.3 Chloride (98 - 107 mmol/L) Cancelled 108 H Carbon Dioxide (22 - 30 mmol/L) Cancelled 21 L Anion Gap (5 - 16) Cancelled 12 BUN (9 - 20 mg/dL) Cancelled 16 Creatinine (0.7 - 1.2 mg/dL) Cancelled 0.9 Estimated GFR (>60 ml/min) > 60 BUN/Creatinine Ratio Cancelled Glucose (65 - 99 mg/dL) 258 H Lactic Acid (0.7 - 2.1 mmol/L) Cancelled 3.3 H 3.5 H Calcium (8.4 - 10.2 mg/dL) 7.7 L Phosphorus (2.5 - 4.5 mg/dL) 2.7 Magnesium (1.6 - 2.3 mg/dL) 1.5 L Total Bilirubin (0.2 - 1.3 mg/dL) 0.7 AST (17 - 59 U/L) 33 ALT (21 - 72 U/L) 36 Troponin I Cancelled Albumin (3.5 - 5.0 g/dL) 2.3 L Coagulation PT (9.4 - 12.5 SEC) 13.5 H INR (0.90 - 1.17) 1.29 H APTT (25 - 37 SEC) 31 Hematology CBC w Diff MAN DIFF ORDERED WBC (4.8 - 10.8 /CUMM) 27.6 H RBC (4.70 - 6.10 /CUMM) 4.70 Hgb (14.0 - 18.0 G/DL) 13.2 L Hct (42 - 52 %) 40.7 L MCV (80.0 - 94.0 FL) 86.5 MCH (27.0 - 31.0 PG) 28.1 RDW (11.5 - 14.5 %) 16.7 H Plt Count (130 - 400 /CUMM) 350 MPV (7.4 - 10.4 FL) 9.1 Gran % (42.2 - 75.2 %) 76.0 H Lymphocytes % (20.5 - 51.1 %) 21.5 Monocytes % (1.7 - 9.3 %) 1.9 Eosinophils % (0 - 5 %) 0.5 Basophils % (0.0 - 2.0 %) 0.1 Absolute Granulocytes (1.4 - 6.5 /CUMM) 21.0 H Segmented Neutrophils (42.2 - 75.2 %) 70 Band Neutrophils (0.0 - 5.0 %) 12 H Absolute Lymphocytes (1.2 - 3.4 /CUMM) 5.9 H Lymphocytes (20.5 - 51.1 %) 11 L Monocytes (1.7 - 9.3 %) 3 Absolute Monocytes (0.10 - 0.60 /CUMM) 0.5 Eosinophils (0 - 5.0 %) 2 Absolute Eosinophils (0.0 - 0.7 /CUMM) 0.1 Absolute Basophils (0.0 - 0.2 /CUMM) 0 Metamyelocytes (0.0 - 1.0 %) 1 Myelocytes (0 - 0 %) 1 H Platelet Estimate (ADEQUATE) VERIFIED BY SMEAR Normocytic RBCs VERIFIED Normochromic RBCs VERIFIED PUBS MCHC (33.0 - 37.0 G/DL) 32.5 L Other Body Source Fld Total RBCs Counted (%) 100 07/15 07/15 1720 0405 Blood Gas pH (7.35 - 7.45 PH) 7.49 H pCO2 (35 - 45 TORR) 23 L pO2 (80 - 100 TORR) 75 L HCO3 (21 - 28 MEQ/L) 17 L ABG O2 Sat (Measured) (>96.0 %) 95.0 L P-50 (Temp Corrected) N Carboxyhemoglobin (1.5 - 5.0 %) 0.4 L O2 Concentration % 50% Temperature (97.0 - 100.0 FARH) 98.4 O2 Delivery Method VM Chemistry Sodium (137 - 145 mmol/L) 143 Potassium (3.5 - 5.1 mmol/L) 3.8 Chloride (98 - 107 mmol/L) 113 H Carbon Dioxide (22 - 30 mmol/L) 22 Anion Gap (5 - 16) 9 BUN (9 - 20 mg/dL) 16 Creatinine (0.7 - 1.2 mg/dL) 0.9 Estimated GFR (>60 ml/min) > 60 Glucose (65 - 99 mg/dL) 211 H Calcium (8.4 - 10.2 mg/dL) 7.5 L Phosphorus (2.5 - 4.5 mg/dL) 2.4 L Magnesium (1.6 - 2.3 mg/dL) 1.7 Total Bilirubin (0.2 - 1.3 mg/dL) 0.3 AST (17 - 59 U/L) 31 ALT (21 - 72 U/L) 36 Albumin (3.5 - 5.0 g/dL) 1.8 L Hematology CBC w Diff NO MAN DIFF REQ WBC (4.8 - 10.8 /CUMM) 17.4 H RBC (4.70 - 6.10 /CUMM) 3.90 L Hgb (14.0 - 18.0 G/DL) 11.2 L Hct (42 - 52 %) 34.1 L MCV (80.0 - 94.0 FL) 87.5 MCH (27.0 - 31.0 PG) 28.7 RDW (11.5 - 14.5 %) 16.5 H Plt Count (130 - 400 /CUMM) 192 MPV (7.4 - 10.4 FL) 9.5 Gran % (42.2 - 75.2 %) 73.9 Lymphocytes % (20.5 - 51.1 %) 18.7 L Monocytes % (1.7 - 9.3 %) 5.6 Eosinophils % (0 - 5 %) 1.5 Basophils % (0.0 - 2.0 %) 0.3 Absolute Granulocytes (1.4 - 6.5 /CUMM) 12.9 H Absolute Lymphocytes (1.2 - 3.4 /CUMM) 3.3 Absolute Monocytes (0.10 - 0.60 /CUMM) 1.0 H Absolute Eosinophils (0.0 - 0.7 /CUMM) 0.3 Absolute Basophils (0.0 - 0.2 /CUMM) 0.1 PUBS MCHC (33.0 - 37.0 G/DL) 32.8 L Miscellaneous Phlebotomy Draw Site LEFT RADIAL Recent Imaging Studies: SERVICE DATE: 07/16/17 EXAM TYPE: RAD - XRY-PORTABLE CHEST XRAY EXAMINATION: XR PORTABLE CHEST CLINICAL INFORMATION: Status post exploratory laparotomy. COMPARISON: 07/15/2017 TECHNIQUE: Portable frontal view of the chest was obtained. FINDINGS: There is an endotracheal tube in place which terminates 6 cm above the kika. Multiple cardiac leads overlie the chest. Right-sided PICC line remains in place. Left chest wall AICD/pacer is again noted. Median sternotomy wires appear intact. The right costophrenic angle is not fully included on this study. Lung volumes are low. Hazy basilar opacities are similar to prior. No pneumothorax. The cardiomediastinal silhouette remains prominent. IMPRESSION: Limited study due to the [id number]. Lung volumes are low with hazy opacity suggesting small pleural effusions with atelectasis. This is similar to prior. Endotracheal tube terminating approximately 6 cm above the kika. Assessment/Plan Assessment/Plan 76 M POD 0 s/p exploratory laparotomy and primary closure of a duodenal ulcer with Fabrizio patch, jejunostomy and gabriela drain placement x2 secondary to duodenal ulcer who remains in critical condition NPO, agressive hydration NGT to cont LWS Cont TPN Cont JPx2 to bulb suction Cont pressor support Cont supportive care DVT ppx - alps, hsq F/u OR culture All medical care per primary team Will d/w attending Core Measures Venous Thromboembolism VTE Risk Factors Acute Medical Illness No Mechanical VTE Prophylaxis d/t Physical Contraindication No VTE Pharm Prophylaxis d/t NA PharmProphylax ordered
[2017-07-16 05:59] LABS: ABSOLUTE BASOPHIL COUNT 0 /CUMM (0.0-0.2); ABSOLUTE EOSINOPHIL COUNT 0.1 /CUMM (0.0-0.7); ABSOLUTE GRANULOCYTE CT 39.1 /CUMM (1.4-6.5); ABSOLUTE LYMPH COUNT 0.7 /CUMM (1.2-3.4); ABSOLUTE MONOCYTE COUNT 0.1 /CUMM (0.10-0.60); BASOPHIL % 0 % (0.0-2.0); EOSINOPHIL % 0.2 % (0-5); HEMATOCRIT 38.3 % (42-52); MEAN CORPUSCULAR HGB 28.5 PG (27.0-31.0); MEAN CORPUSCULAR HGB CONC 32.8 G/DL (33.0-37.0); MEAN PLATELET VOLUME 8.4 FL (7.4-10.4); PLATELET COUNT 342 /CUMM (130-400); RBC DISTRIBUTION WIDTH 16.9 % (11.5-14.5); RED BLOOD CELL CT 4.41 /CUMM (4.70-6.10)
[2017-07-16 06:43] LABS: WHITE BLOOD CELL COUNT 39.9 /CUMM (4.8-10.8)
[2017-07-16 08:00] VITALS: BP 116/60
--- NOTE | 2017-07-16 08:30 | PN- Resident CRCU ---
Subjective HPI/CRCU Issues: - Septic shock 2/2 perforated duodenal ulcer s/p Exploratory laparotomy and suture repair duodenal ulcer with Fabrizio patch - Metabolic acidosis - - CAD s/p CABG - HFrEF with EF of 25% s/p AICD - PAF on Tikosyn not on AC - USMAN- ( ? ATN) - Acute respiratory failure curently intubated- 24 Hour Events: Intubated and sedated. Yesterday the patient was noted to deteriorate and with increased output through the WILLEM drain suggesting an ongoing duodenal leak , repeated CT of the abdomen performed on 07/15 revealed free air/extravasation of contrast into the peritoneal cavity. And he was taken to the OR exploratory laparotomy and sutured repair duodenal ulcer with Fabrizio patch After getting out of the OR around 1 AM blood pressure was low and was kept on 3 vasopressors to maintain blood pressure borderline Objective Vital Signs & I&O Last 8 Hrs of Vitals and I&O: Blood pressure 116/60, pulse 94, temp 98.8, SPO2 92 on ventilator 60%, Intake 1090, output 865 Intake & Output 07/16 1600 Intake Total 4048.7 Output Total 495 Balance 3553.7 Intake, IV 3287.3 Intake, Lipid 113.4 Intake, Oral 0 Intake, 648 TPN/PPN Number 1 Bowel Movements Output, 225 Drainage Output, 10 Gastric Drainage Output, Urine 260 Exam General Appearance: sedated, intubated Head: atraumatic, normal appearance Neck: normal inspection, supple, full range of motion Respiratory: crackles, wheezing Cardiovascular: tachycardia Gastrointestinal: distention Extremities: swelling Skin: intact Weaning Parameters NIF: 21 Minute Volume: 11.5 Resp rate: 22 Vt: 478 Heart Rate: 76 Weaning Schedule Start Time: 0909 Minute Volume: 12.3 Resp Rate: 25 Vt: 594 Heart Rate: 76 End Time: 1210 Minute Volume: 11.8 Resp Rate: 22 Vt: 604 Heart Rate: 69 IV Drips IV Drips: Insulin TPN Levophed fentanyl Nutrition Nutrition: TPN rate Current Medications: Current Medications Sig/Buck Start time Last Medication Dose Route Stop Time Status Admin Acetaminophen 1,000 MG Q6P PRN 07/16 0530 AC 07/16 N/A 1 UNIT IV 0520 Acetaminophen 1,000 MG ONCE ONE 07/15 2045 DC 07/15 IV 11/10 2046 2051 Ampicillin Sodium/ 3,000 MG Q8H 07/12 1800 DC 07/16 Sulbactam Sodium IV 0145 Sodium Chloride 100 ML Budesonide/ 2 PUF BID 07/09 2200 AC 07/15 Formoterol Fumarate INH 0940 Fat Emulsion 350 ML 1900 07/16 1900 AC Intravenous IV 07/17 1859 Fat Emulsion 500 ML Q24H 07/15 1900 AC 07/15 Intravenous IV 07/16 1859 1957 Fat Emulsion 350 ML Q24H 07/14 1900 DC 07/14 Intravenous IV 07/15 1858 2056 Fentanyl Citrate 1,000 MCG Q24H 07/16 1130 07/16 Dextrose/Water 250 ML IV 1202 Fentanyl Citrate 1,000 MCG Q24H 07/16 1045 DC 07/16 Dextrose/Water 250 ML IV 1115 Fentanyl Citrate 1,000 MCG Q24H 07/16 0500 DC Dextrose/Water 250 ML IV Fentanyl Citrate 500 MCG .STK-MED ONE 07/15 2226 DC IM 07/15 2227 Fentanyl Citrate 250 MCG .STK-MED ONE 07/15 2213 DC IM 07/15 221 Fluconazole 400 MG DAILY 07/16 1000 AC 07/16 Sodium Chloride 200 ML IV 1114 Heparin Sodium 5,000 UNIT Q8 07/10 0138 07/16 (Porcine) SC 1356 Hydrocortisone 50 MG Q8 07/16 1400 AC 07/16 Sodium Succinate IV 1356 Hydrocortisone 100 MG ONE ONE 07/16 0545 DC 07/16 Sodium Succinate IV 07/16 0546 0549 Hydromorphone HCl 2 MG .STK-MED ONE 07/15 2226 DC 07/15 222 Hydromorphone HCl 2 MG .STK-MED ONE 07/15 2212 DC IM 07/15 221 Insulin Aspart 15 UNITS ONCE ONE 07/16 1200 DC 07/16 VA 07/16 1201 1201 Insulin Aspart 0 TIDAC 07/16 0800 DC SC Insulin Aspart 0 Q6 07/16 0600 CAN SC Insulin Aspart 4 UNITS ONCE ONE 07/15 2200 DC 07/15 SC 07/15 2201 2200 Insulin Human Regular 100 UNIT Q14H 07/17 0200 AC Sodium Chloride 100 ML IV Insulin Human Regular 100 UNIT Q24H 07/16 1200 AC 07/16 Sodium Chloride 100 ML IV 07/17 0159 1314 Insulin Human Regular 0 Q6 07/16 0129 DC 07/16 SC 0532 Magnesium Sulfate 1 GM Q2H 07/16 0700 DC 07/16 Dextrose/Water 100 ML IV 07/16 1059 0858 Magnesium Sulfate 1 GM ONCE ONE 07/16 0330 DC 07/16 Dextrose/Water 100 ML IV 07/16 0729 0343 Meropenem 1 GM Q8H 07/16 0200 AC 07/16 IV 0908 Metronidazole 500 MG Q6H 07/16 0200 DC 07/16 N/A 1 UNIT IV 0722 Morphine Sulfate 2 MG Q4P PRN 07/14 1145 AC 07/16 IV 0404 Norepinephrine 4 MG Q3H 07/16 1530 AC Sodium Chloride 250 ML IV Norepinephrine 4 MG Q24H 07/16 0130 DC 07/16 Sodium Chloride 250 ML IV 07/16 1529 0523 Norepinephrine 4 MG .STK-MED ONE 07/16 0122 DC IV 07/16 0123 Octreotide Acetate 500 MCG Q20H 07/15 1400 AC 07/16 Dextrose/Water 500 ML IV 1114 Pantoprazole Sodium 40 MG BID 07/10 1016 AC 07/16 IV 0908 Phenylephrine HCl 40 MG Q3H 07/16 1430 AC 07/16 Sodium Chloride 250 ML IV 1503 Phenylephrine HCl 40 MG Q24H 07/16 0245 DC 07/16 Sodium Chloride 250 ML IV 07/16 1429 0242 Phenylephrine HCl 40 MG .STK-MED ONE 07/16 0235 DC IM 07/16 0236 Potassium Chloride 20 MEQ Q8H 07/12 0930 DC 07/16 Dextrose/Sodium 1,000 ML IV 0529 Chloride Sodium Bicarbonate 50 MEQ Q20H 07/16 0900 DC 07/16 Dextrose/Sodium 1,000 ML IV 1000 Chloride Sodium Bicarbonate 75 MEQ CONTINOUS INFUSION 07/16 0630 CAN Dextrose/Sodium 1,000 ML IV Chloride Sodium Bicarbonate 50 MEQ ONCE ONE 07/16 0530 DC 07/16 IV 07/16 0531 0523 Sodium Bicarbonate 50 MEQ CONTINOUS INFUSION 07/16 0515 CAN Dextrose/Sodium 1,000 ML IV Chloride Sodium Chloride 1,000 ML BOLUS ONE 07/16 0545 DC 07/16 IV 07/16 0644 0654 Sodium Chloride 500 ML BOLUS ONE 07/16 0530 DC 07/16 IV 07/16 0629 0617 Sodium Chloride 1,000 ML BOLUS ONE 07/16 0500 DC 07/16 IV 07/16 0559 0509 Sodium Chloride 500 ML BOLUS ONE 07/16 0400 DC 07/16 IV 07/16 0459 0330 Sodium Chloride 500 ML BOLUS ONE 07/16 0230 DC 07/16 IV 07/16 0329 0221 Total Parenteral 1 UNIT 1900 07/16 1900 AC Nutrition IV 07/17 185 Total Parenteral 1 UNIT Q24H 07/15 1900 AC 07/15 Nutrition IV 07/16 185 1956 Total Parenteral 1 UNIT ONE 07/14 1900 DC Nutrition IV 07/15 1859 Vancomycin HCl 1,500 MG DAILY 07/16 1000 AC 07/16 Sodium Chloride 250 ML IV 1203 Vasopressin 40 UNITS Q16H 07/16 0500 AC 07/16 Sodium Chloride 100 ML IV 0509 Antibiotics Antibiotic: vancomycin, meropenem Day #: 1 IV/PO? IV CXR Findings: EXAM TYPE: RAD - XRY-PORTABLE CHEST XRAY EXAMINATION: XR PORTABLE CHEST CLINICAL INFORMATION: Status post exploratory laparotomy. COMPARISON: 07/15/2017 TECHNIQUE: Portable frontal view of the chest was obtained. FINDINGS: There is an endotracheal tube in place which terminates 6 cm above the kika. Multiple cardiac leads overlie the chest. Right-sided PICC line remains in place. Left chest wall AICD/pacer is again noted. Median sternotomy wires appear intact. The right costophrenic angle is not fully included on this study. Lung volumes are low. Hazy basilar opacities are similar to prior. No pneumothorax. The cardiomediastinal silhouette remains prominent. IMPRESSION: Limited study due to the [id number]. Lung volumes are low with hazy opacity suggesting small pleural effusions with atelectasis. This is similar to prior. Endotracheal tube terminating approximately 6 cm above the kika. Impression/Plan Impression/Problem List Impression: 76-year-old male with past medical history of CAD with ejection fraction, A. fib , AICD, previous infection of the hip with prolonged antibiotic, history of peptic ulcer disease, diabetes, renal stone who was transferred to the ICU for perforation of the duodenum with septic shock S/P repair with patch. Yesterday the patient started deteriorating with significant amount of output through the WILLEM drain suggesting an ongoing duodenal leak , repeated CT of the abdomen performed on 07/15 revealed free air/extravasation of contrast into the peritoneal cavity. And he was taken to the OR exploratory laparotomy and sutured repair duodenal ulcer with Fabrizio patch #Septic shock secondary to perforated duodenal ulcer A/P Fabrizio patch POD #5 Significant deterioration of blood pressure now on 3 pressors to maintain borderline blood pressure Continue pressor support We'll start meropenem 1 g every 8 IV IV vancomycin goal trough is 15-20 DC Unasyn Empiric antifungal with fluconazole 400 mg IV by 1 Follow-up on pending repeat culture results Continuous monitoring of CBC, and BMP, LFT and lactic acid #USMAN: Likely new episode of ATN due to shock, sepsis and IV contrast Acidosis mixed Respiratory(PCO2 is inappropriate for bicarbonate level) and metabolic (due to both lactic and renal impairment ) We'll DC bicarbonate drip since his pH was 7.28 Adjust ventilator to target a PCO2 around 30 DC KCl and possibly from PETTIT, okay to continue acetate and PETTIT for now Start IV NS 100 mg/h Serial monitoring of labs and ABG We'll check urine for ketones We'll continue to follow nephrology recommendation #DM: We will add insulin 36 units to TPN (12.5% dextrose multiplied by 2100 ml/24 hours today Start insulin drip and monitor FSG every 1 hour Follow ICU and on DKA protocol for insulin drip Goal glucose between [id number] and exam but sedate her Stop RISS every 6 hour We'll follow endocrinology recommendation CAD S essentially CABG Report of cardiology recommendation History ofPAF on Tikosyn Continue to hold the Tikosyn will follow cardiology recomm Guarded prognosis, need to address the CODE STATUS with the family Full code Nothing by mouth DVT prophylaxis with subcutaneous heparin Problem List: 1. Lactic acidosis 2. Duodenal ulcer with perforation 3. Perforated viscus 4. Septic shock Pain Ratin Tomorrow's Labs & Rationales: cbc icu bundle lactic acid Plan DVT/Prophylaxis: mechanical, pharmacological
[2017-07-16 09:12] LABS: ABSOLUTE BASOPHIL COUNT 0 /CUMM (0.0-0.2); ABSOLUTE EOSINOPHIL COUNT 0.1 /CUMM (0.0-0.7); ABSOLUTE GRANULOCYTE CT 47.6 /CUMM (1.4-6.5); ABSOLUTE LYMPH COUNT 0.6 /CUMM (1.2-3.4); ABSOLUTE MONOCYTE COUNT 0.1 /CUMM (0.10-0.60); BASOPHIL % 0 % (0.0-2.0); EOSINOPHIL % 0.2 % (0-5); GRANULOCYTE % 98.5 % (42.2-75.2); HEMATOCRIT 39.6 % (42-52); MEAN CORPUSCULAR HGB 28.7 PG (27.0-31.0); MEAN CORPUSCULAR HGB CONC 32.6 G/DL (33.0-37.0); MEAN CORPUSCULAR VOLUME 87.8 FL (80.0-94.0); MEAN PLATELET VOLUME 8.5 FL (7.4-10.4); PLATELET COUNT 354 /CUMM (130-400); RBC DISTRIBUTION WIDTH 17.2 % (11.5-14.5); RED BLOOD CELL CT 4.51 /CUMM (4.70-6.10)
--- NOTE | 2017-07-16 09:42 | RADIOLOGY REPORT ---
EXAMINATION: XR PORTABLE CHEST CLINICAL INFORMATION: Fluid overload COMPARISON: 07/16/2017 at 1:38 AM TECHNIQUE: Portable frontal view of the chest was obtained. FINDINGS: Lung volumes remain low with hazy opacity at both lung bases, likely small pleural effusions and associated atelectasis. There may be pulmonary venous hypertension but no edith pulmonary edema. Pacer/AICD again seen, unchanged. Sternal wires are again noted. There is an endotracheal tube with tip 2 to 3 cm above the kika. Right upper extremity PICC line is seen with tip followed to the region of the cavoatrial junction. Cardiac silhouette is prominent, but likely within normal limits given the AP technique. IMPRESSION: Low lung volumes with small bilateral pleural effusions and associated atelectasis. Pulmonary venous hypertension without edith pulmonary edema.
[2017-07-16 09:49] LABS: WHITE BLOOD CELL COUNT 48.3 /CUMM (4.8-10.8)
--- NOTE | 2017-07-16 10:39 | PN- Nephrology ---
Assessment/Plan Assessment: 1. USMAN: likely new episode ATN in setting of shock, sepsis, & IV contrast 2. Acidemia: mixed resp --> pCO2 inappropriate for bicarb level; & met Acid --> combination lactic & renal. pH & bicarb acceptable w/o need for bicarb drip. Favor lowering pCO2 ~ 30 Suggestion: 1. d/c bicarb drip 2. adjust vent to target pCO2 ~ 30 for now 3. d/c KCL & phos from PETTIT; OK to continue acetate in PETTIT for now 4. add IV NS 100 ml/hr 5. serial labs w ABG 6. check yrine ketones Prognosis poor - code status should be readdressed Subjective Subjective: Asked to see pt again Events since last seen 07/14 noted: severe shock, sepsis, return to OR for redo patch perforated DU Now intubated on 3 pressors: NE, Vaso, Jerad Urine borderline nonoliguric Objective Vital Signs and I&Os Vital Signs Date Time Temp Pulse Resp B/P B/P Pulse O2 O2 Flow FiO2 Mean Ox Delivery Rate 07/16 0831 60 07/16 0800 98.8 94 28 116/60 92 Ventilator 60% 07/16 08 92 Ventilator 60% 07/16 0624 101.2 07/16 0559 60 07/16 0523 110 57/39 07/16 0520 101.4 07/16 0514 60 07/16 0400 94 Ventilator 50% 07/16 0246 50 07/16 0139 97.9 108 20 62/00 07/16 0118 100 07/16 0100 96 Ventilator 100% 07/15 2146 99.1 07/15 2051 100.8 07/15 2000 94 Venti Mask 55% 07/15 1600 98.4 74 20 114/62 95 Nasal 6.0L Cannula 07/15 1600 95 Nasal 6.0L Cannula 07/15 1200 95 Nasal 4.0L Cannula Intake & Output 07/16 1600 07/16 0400 07/15 1600 07/15 0400 07/14 1600 07/14 040 Intake Total 6853.0 1120.0 2530.0 1236.8 3103.4 3257.6 Output Total 370 1367 3875 2150 4285 2130 Balance 6483.0 -247.0 -1345.0 -913.2 -1181.6 1127.6 Intake, IV 6020 672 2107 1236.8 2269.4 3257.6 Intake, Lipid 124.0 81.0 85.0 166.0 Intake, Oral 0 0 0 0 Intake, 709 367 338 668 TPN/PPN Number 0 3 Bowel Movements Output, 924 639 3495 350 440 280 Drainage Output, 190 Gastric Drainage Output, Other 50 Output, Stool 2 Output, Urine 95 415 2425 1800 3655 1850 Physical Exam General Appearance: sedated, intubated Head: atraumatic, normal appearance Ears, Nose, Throat: ET Respiratory: rhonchi Cardiovascular: regular rate/rhythm Abdomen: distention, J tube Extremities: swelling Neurologic/Psychiatric: unresponsive Current Medications: Current Medications Sig/Buck Start time Last Medication Dose Route Stop Time Status Admin Acetaminophen 1,000 MG Q6P PRN 07/16 0530 07/16 N/A 1 UNIT IV 0520 Acetaminophen 1,000 MG ONCE ONE 07/15 2045 DC 07/15 IV 07/15 204 205 Ampicillin Sodium/ 3,000 MG Q8H 07/12 1800 DC 07/16 Sulbactam Sodium IV 0145 Sodium Chloride 100 ML Budesonide/ 2 PUF BID 07/09 2200 07/15 Formoterol Fumarate INH 0940 Fat Emulsion 500 ML Q24H 07/15 1900 07/15 Intravenous IV 07/16 185 1957 Fat Emulsion 350 ML Q24H 07/14 1900 WA 07/14 Intravenous IV 07/15 1858 2056 Fentanyl Citrate 1,000 MCG Q24H 07/16 0500 AC Dextrose/Water 250 ML IV Fentanyl Citrate 500 MCG .STK-MED ONE 07/156 DC IM 07/15 222 Fentanyl Citrate 250 MCG .STK-MED ONE 07/15 2213 DC IM 07/15 221 Fentanyl Citrate 0 .STK-MED ONE 07/15 1425 DC .ROUTE Fluconazole 400 MG DAILY 07/16 1000 AC Sodium Chloride 200 ML IV Furosemide 20 MG ONCE ONE 07/15 1030 DC 07/15 IV 07/15 1031 1226 Heparin Sodium 5,000 UNIT Q8 07/10 0138 07/16 (Porcine) SC 0534 Hydrocortisone 50 MG Q8 07/16 1400 AC Sodium Succinate IV Hydrocortisone 100 MG ONE ONE 07/16 0545 DC 07/16 Sodium Succinate IV 07/16 0546 0549 Hydromorphone HCl 2 MG .STK-MED ONE 07/15 2226 DC IM 07/15 2227 Hydromorphone HCl 2 MG .STK-MED ONE 07/152 DC IM 07/15 2213 Insulin Aspart 0 TIDAC 07/16 0800 DC SC Insulin Aspart 0 Q6 07/16 0600 CAN SC Insulin Aspart 4 UNITS ONCE ONE 07/15 2200 DC 07/15 SC 07/15 2201 2200 Insulin Human Regular 0 Q6 07/16 0129 AC 07/16 SC 0532 Magnesium Sulfate 1 GM Q2H 07/16 0700 AC 07/16 Dextrose/Water 100 ML IV 07/16 1059 0858 Magnesium Sulfate 1 GM ONCE ONE 07/16 0330 DC 07/16 Dextrose/Water 100 ML IV 07/16 0729 0343 Meropenem 1 GM Q8H 07/16 0200 AC 07/16 IV 0908 Metronidazole 500 MG Q6H 07/16 0200 DC 07/16 N/A 1 UNIT IV 0722 Morphine Sulfate 2 MG Q4P PRN 07/14 1145 AC 07/16 IV 0404 Norepinephrine 4 MG Q24H 07/16 0130 AC 07/16 Sodium Chloride 250 ML IV 0523 Norepinephrine 4 MG .STK-MED ONE 07/16 0122 DC IV 07/16 0123 Octreotide Acetate 500 MCG Q20H 07/15 1400 AC 07/15 Dextrose/Water 500 ML IV 1343 Pantoprazole Sodium 40 MG BID 07/10 1016 AC 07/16 IV 0908 Phenylephrine HCl 40 MG Q24H 07/16 0245 AC 07/16 Sodium Chloride 250 ML IV 0242 Potassium Chloride 20 MEQ ONCE ONE 07/15 1030 DC 07/15 IV 07/15 1031 1226 Potassium Chloride 40 MEQ ONCE ONE 07/15 0930 CAN PO 07/15 0931 Potassium Chloride 20 MEQ Q8H 07/12 0930 DC 07/16 Dextrose/Sodium 1,000 ML IV 0529 Chloride Sodium Bicarbonate 50 MEQ Q20H 07/16 09 AC Dextrose/Sodium 1,000 ML IV Chloride Sodium Bicarbonate 75 MEQ CONTINOUS INFUSION 07/16 0630 CAN Dextrose/Sodium 1,000 ML IV Chloride Sodium Bicarbonate 50 MEQ ONCE ONE 07/16 0530 DC 07/16 IV 07/16 0531 0523 Sodium Bicarbonate 50 MEQ CONTINOUS INFUSION 07/16 0515 CAN Dextrose/Sodium 1,000 ML IV Chloride Sodium Chloride 1,000 ML BOLUS ONE 07/16 0545 DC 07/16 IV 07/16 0644 0654 Sodium Chloride 500 ML BOLUS ONE 07/16 0530 DC 07/16 IV 07/16 0629 0617 Sodium Chloride 1,000 ML BOLUS ONE 07/16 0500 DC 07/16 IV 07/16 0559 0509 Sodium Chloride 500 ML BOLUS ONE 07/16 0400 DC 07/16 IV 07/16 0459 0330 Sodium Chloride 500 ML BOLUS ONE 07/16 0230 DC 07/16 IV 07/16 0329 0221 Total Parenteral 1 UNIT Q24H 07/15 1900 AC 07/15 Nutrition IV 07/16 Total Parenteral 1 UNIT ONE 07/14 190 DC Nutrition IV 07/15 1859 Vancomycin HCl 1,500 MG DAILY 07/16 1000 AC Sodium Chloride 250 ML IV Vasopressin 40 UNITS Q16H 07/16 0500 AC 07/16 Sodium Chloride 100 ML IV 0509 Results Pertinent Lab Results: Laboratory Tests 07/16 07/16 07/16 0856 0856 0630 Chemistry Sodium (137 - 145 mmol/L) 142 Potassium (3.5 - 5.1 mmol/L) 4.6 Chloride (98 - 107 mmol/L) 113 H Carbon Dioxide (22 - 30 mmol/L) 16 L Anion Gap (5 - 16) 13 BUN (9 - 20 mg/dL) 26 H Creatinine (0.7 - 1.2 mg/dL) 1.6 H Estimated GFR (>60 ml/min) 42 L BUN/Creatinine Ratio (7 - 25 %) 16.3 Glucose (65 - 99 mg/dL) 300 H Lactic Acid (0.7 - 2.1 mmol/L) 4.8 H Calcium (8.4 - 10.2 mg/dL) 6.8 L Phosphorus (2.5 - 4.5 mg/dL) 3.5 Magnesium (1.6 - 2.3 mg/dL) 1.8 Total Bilirubin (0.2 - 1.3 mg/dL) 0.9 AST (17 - 59 U/L) 31 ALT (21 - 72 U/L) 35 Albumin (3.5 - 5.0 g/dL) 1.5 L Cortisol AM Sample Cancelled Hematology CBC w Diff MAN DIFF ORDERED WBC (4.8 - 10.8 /CUMM) 48.3 *H RBC (4.70 - 6.10 /CUMM) 4.51 L Hgb (14.0 - 18.0 G/DL) 12.9 L Hct (42 - 52 %) 39.6 L MCV (80.0 - 94.0 FL) 87.8 MCH (27.0 - 31.0 PG) 28.7 RDW (11.5 - 14.5 %) 17.2 H Plt Count (130 - 400 /CUMM) 354 MPV (7.4 - 10.4 FL) 8.5 Gran % (42.2 - 75.2 %) 98.5 H Lymphocytes % (20.5 - 51.1 %) 1.2 L Monocytes % (1.7 - 9.3 %) 0.1 L Eosinophils % (0 - 5 %) 0.2 Basophils % (0.0 - 2.0 %) 0 Absolute Granulocytes (1.4 - 6.5 /CUMM) 47.6 H Segmented Neutrophils (42.2 - 75.2 %) 56 Band Neutrophils (0.0 - 5.0 %) 37 H Absolute Lymphocytes (1.2 - 3.4 /CUMM) 0.6 L Lymphocytes (20.5 - 51.1 %) 3 L Monocytes (1.7 - 9.3 %) 1 L Absolute Monocytes (0.10 - 0.60 /CUMM) 0.1 Absolute Eosinophils (0.0 - 0.7 /CUMM) 0.1 Absolute Basophils (0.0 - 0.2 /CUMM) 0 Metamyelocytes (0.0 - 1.0 %) 3 H Nucleated RBCs (0.0 - 0.0 /100WBC) 1 H Poikilocytosis 1+ Anisocytosis 2+ PUBS MCHC (33.0 - 37.0 G/DL) 32.6 L 07/16 07/16 07/16 0545 0545 0317 Chemistry Sodium (137 - 145 mmol/L) 140 Potassium (3.5 - 5.1 mmol/L) 4.4 Chloride (98 - 107 mmol/L) 112 H Carbon Dioxide (22 - 30 mmol/L) 15 L Anion Gap (5 - 16) 13 BUN (9 - 20 mg/dL) 25 H Creatinine (0.7 - 1.2 mg/dL) 1.6 H Estimated GFR (>60 ml/min) 42 L BUN/Creatinine Ratio (7 - 25 %) 15.6 Glucose (65 - 99 mg/dL) 296 H Lactic Acid (0.7 - 2.1 mmol/L) 4.6 H Cancelled Calcium (8.4 - 10.2 mg/dL) 6.8 L Phosphorus (2.5 - 4.5 mg/dL) 3.7 Magnesium (1.6 - 2.3 mg/dL) 1.6 Total Bilirubin (0.2 - 1.3 mg/dL) 0.8 AST (17 - 59 U/L) 25 ALT (21 - 72 U/L) 33 Albumin (3.5 - 5.0 g/dL) 1.5 L Cortisol AM Sample (4.46 - 22.7 ug/dL) 24.8 H Hematology CBC w Diff MAN DIFF ORDERED WBC (4.8 - 10.8 /CUMM) 39.9 *H RBC (4.70 - 6.10 /CUMM) 4.41 L Hgb (14.0 - 18.0 G/DL) 12.6 L Hct (42 - 52 %) 38.3 L MCV (80.0 - 94.0 FL) 87.0 MCH (27.0 - 31.0 PG) 28.5 RDW (11.5 - 14.5 %) 16.9 H Plt Count (130 - 400 /CUMM) 342 MPV (7.4 - 10.4 FL) 8.4 Gran % (42.2 - 75.2 %) 98.0 H Lymphocytes % (20.5 - 51.1 %) 1.6 L Monocytes % (1.7 - 9.3 %) 0.2 L Eosinophils % (0 - 5 %) 0.2 Basophils % (0.0 - 2.0 %) 0 Absolute Granulocytes (1.4 - 6.5 /CUMM) 39.1 H Segmented Neutrophils (42.2 - 75.2 %) 59 Band Neutrophils (0.0 - 5.0 %) 32 H Absolute Lymphocytes (1.2 - 3.4 /CUMM) 0.7 L Lymphocytes (20.5 - 51.1 %) 7 L Monocytes (1.7 - 9.3 %) 1 L Absolute Monocytes (0.10 - 0.60 /CUMM) 0.1 Absolute Eosinophils (0.0 - 0.7 /CUMM) 0.1 Absolute Basophils (0.0 - 0.2 /CUMM) 0 Metamyelocytes (0.0 - 1.0 %) 1 Nucleated RBCs (0.0 - 0.0 /100WBC) 1 H Platelet Estimate (ADEQUATE) ADEQUATE Anisocytosis 1+ PUBS MCHC (33.0 - 37.0 G/DL) 32.8 L Other Body Source Fld Total RBCs Counted (%) 100 07/16 07/16 0300 0140 Blood Gas pH (7.35 - 7.45 PH) 7.28 *L pCO2 (35 - 45 TORR) 36 pO2 (80 - 100 TORR) 76 L HCO3 (21 - 28 MEQ/L) 16 L ABG O2 Sat (Measured) (>96.0 %) 93.0 L P-50 (Temp Corrected) N Carboxyhemoglobin (1.5 - 5.0 %) 0.2 L O2 Concentration % .50 Respiration Rate (BPM) 20 O2 Delivery Method VENT Vent Mode A/C Expiratory Pressure (CMH2O/P) 5 Tidal Volume (CC) 600 Chemistry Sodium (137 - 145 mmol/L) 139 Potassium (3.5 - 5.1 mmol/L) 4.7 Chloride (98 - 107 mmol/L) 109 H Carbon Dioxide (22 - 30 mmol/L) 18 L Anion Gap (5 - 16) 12 BUN (9 - 20 mg/dL) 22 H Creatinine (0.7 - 1.2 mg/dL) 1.6 H Estimated GFR (>60 ml/min) 42 L Glucose (65 - 99 mg/dL) 295 H Lactic Acid (0.7 - 2.1 mmol/L) 4.0 H Calcium (8.4 - 10.2 mg/dL) 7.4 L Phosphorus (2.5 - 4.5 mg/dL) 5.2 H Magnesium (1.6 - 2.3 mg/dL) 1.5 L Total Bilirubin (0.2 - 1.3 mg/dL) 0.7 AST (17 - 59 U/L) 29 ALT (21 - 72 U/L) 34 Troponin I (<0.11 ng/ml) 0.01 Albumin (3.5 - 5.0 g/dL) 1.9 L Coagulation PT (9.4 - 12.5 SEC) 14.5 H INR (0.90 - 1.17) 1.39 H APTT (25 - 37 SEC) 34 Hematology CBC w Diff MAN DIFF ORDERED WBC (4.8 - 10.8 /CUMM) 34.7 *H RBC (4.70 - 6.10 /CUMM) 4.70 Hgb (14.0 - 18.0 G/DL) 13.5 L Hct (42 - 52 %) 41.0 L MCV (80.0 - 94.0 FL) 87.1 MCH (27.0 - 31.0 PG) 28.8 RDW (11.5 - 14.5 %) 16.3 H Plt Count (130 - 400 /CUMM) 353 MPV (7.4 - 10.4 FL) 8.5 Segmented Neutrophils (42.2 - 75.2 %) 69 Band Neutrophils (0.0 - 5.0 %) 17 H Lymphocytes (20.5 - 51.1 %) 10 L Metamyelocytes (0.0 - 1.0 %) 4 H Nucleated RBCs (0.0 - 0.0 /100WBC) 1 H Platelet Estimate (ADEQUATE) ADEQUATE Anisocytosis 1+ PUBS MCHC (33.0 - 37.0 G/DL) 33.0 Miscellaneous Phlebotomy Draw Site LEFT BRACHIAL Other Body Source Fld Total RBCs Counted (%) 100 07/16 07/15 07/15 0128 2100 1735 Chemistry Sodium (137 - 145 mmol/L) Cancelled 142 Potassium (3.5 - 5.1 mmol/L) Cancelled 4.3 Chloride (98 - 107 mmol/L) Cancelled 108 H Carbon Dioxide (22 - 30 mmol/L) Cancelled 21 L Anion Gap (5 - 16) Cancelled 12 BUN (9 - 20 mg/dL) Cancelled 16 Creatinine (0.7 - 1.2 mg/dL) Cancelled 0.9 Estimated GFR (>60 ml/min) > 60 BUN/Creatinine Ratio Cancelled Glucose (65 - 99 mg/dL) 258 H Lactic Acid (0.7 - 2.1 mmol/L) Cancelled 3.3 H 3.5 H Calcium (8.4 - 10.2 mg/dL) 7.7 L Phosphorus (2.5 - 4.5 mg/dL) 2.7 Magnesium (1.6 - 2.3 mg/dL) 1.5 L Total Bilirubin (0.2 - 1.3 mg/dL) 0.7 AST (17 - 59 U/L) 33 ALT (21 - 72 U/L) 36 Troponin I Cancelled Albumin (3.5 - 5.0 g/dL) 2.3 L Coagulation PT (9.4 - 12.5 SEC) 13.5 H INR (0.90 - 1.17) 1.29 H APTT (25 - 37 SEC) 31 Hematology CBC w Diff MAN DIFF ORDERED WBC (4.8 - 10.8 /CUMM) 27.6 H RBC (4.70 - 6.10 /CUMM) 4.70 Hgb (14.0 - 18.0 G/DL) 13.2 L Hct (42 - 52 %) 40.7 L MCV (80.0 - 94.0 FL) 86.5 MCH (27.0 - 31.0 PG) 28.1 RDW (11.5 - 14.5 %) 16.7 H Plt Count (130 - 400 /CUMM) 350 MPV (7.4 - 10.4 FL) 9.1 Gran % (42.2 - 75.2 %) 76.0 H Lymphocytes % (20.5 - 51.1 %) 21.5 Monocytes % (1.7 - 9.3 %) 1.9 Eosinophils % (0 - 5 %) 0.5 Basophils % (0.0 - 2.0 %) 0.1 Absolute Granulocytes (1.4 - 6.5 /CUMM) 21.0 H Segmented Neutrophils (42.2 - 75.2 %) 70 Band Neutrophils (0.0 - 5.0 %) 12 H Absolute Lymphocytes (1.2 - 3.4 /CUMM) 5.9 H Lymphocytes (20.5 - 51.1 %) 11 L Monocytes (1.7 - 9.3 %) 3 Absolute Monocytes (0.10 - 0.60 /CUMM) 0.5 Eosinophils (0 - 5.0 %) 2 Absolute Eosinophils (0.0 - 0.7 /CUMM) 0.1 Absolute Basophils (0.0 - 0.2 /CUMM) 0 Metamyelocytes (0.0 - 1.0 %) 1 Myelocytes (0 - 0 %) 1 H Platelet Estimate (ADEQUATE) VERIFIED BY SMEAR Normocytic RBCs VERIFIED Normochromic RBCs VERIFIED PUBS MCHC (33.0 - 37.0 G/DL) 32.5 L Other Body Source Fld Total RBCs Counted (%) 100 07/15 07/15 1720 0405 Blood Gas pH (7.35 - 7.45 PH) 7.49 H pCO2 (35 - 45 TORR) 23 L pO2 (80 - 100 TORR) 75 L HCO3 (21 - 28 MEQ/L) 17 L ABG O2 Sat (Measured) (>96.0 %) 95.0 L P-50 (Temp Corrected) N Carboxyhemoglobin (1.5 - 5.0 %) 0.4 L O2 Concentration % 50% Temperature (97.0 - 100.0 FARH) 98.4 O2 Delivery Method VM Chemistry Sodium (137 - 145 mmol/L) 143 Potassium (3.5 - 5.1 mmol/L) 3.8 Chloride (98 - 107 mmol/L) 113 H Carbon Dioxide (22 - 30 mmol/L) 22 Anion Gap (5 - 16) 9 BUN (9 - 20 mg/dL) 16 Creatinine (0.7 - 1.2 mg/dL) 0.9 Estimated GFR (>60 ml/min) > 60 Glucose (65 - 99 mg/dL) 211 H Calcium (8.4 - 10.2 mg/dL) 7.5 L Phosphorus (2.5 - 4.5 mg/dL) 2.4 L Magnesium (1.6 - 2.3 mg/dL) 1.7 Total Bilirubin (0.2 - 1.3 mg/dL) 0.3 AST (17 - 59 U/L) 31 ALT (21 - 72 U/L) 36 Albumin (3.5 - 5.0 g/dL) 1.8 L Hematology CBC w Diff NO MAN DIFF REQ WBC (4.8 - 10.8 /CUMM) 17.4 H RBC (4.70 - 6.10 /CUMM) 3.90 L Hgb (14.0 - 18.0 G/DL) 11.2 L Hct (42 - 52 %) 34.1 L MCV (80.0 - 94.0 FL) 87.5 MCH (27.0 - 31.0 PG) 28.7 RDW (11.5 - 14.5 %) 16.5 H Plt Count (130 - 400 /CUMM) 192 MPV (7.4 - 10.4 FL) 9.5 Gran % (42.2 - 75.2 %) 73.9 Lymphocytes % (20.5 - 51.1 %) 18.7 L Monocytes % (1.7 - 9.3 %) 5.6 Eosinophils % (0 - 5 %) 1.5 Basophils % (0.0 - 2.0 %) 0.3 Absolute Granulocytes (1.4 - 6.5 /CUMM) 12.9 H Absolute Lymphocytes (1.2 - 3.4 /CUMM) 3.3 Absolute Monocytes (0.10 - 0.60 /CUMM) 1.0 H Absolute Eosinophils (0.0 - 0.7 /CUMM) 0.3 Absolute Basophils (0.0 - 0.2 /CUMM) 0.1 PUBS MCHC (33.0 - 37.0 G/DL) 32.8 L Miscellaneous Phlebotomy Draw Site LEFT RADIAL 07/14 0500 Chemistry Sodium (137 - 145 mmol/L) 144 Potassium (3.5 - 5.1 mmol/L) 4.6 Chloride (98 - 107 mmol/L) 117 H Carbon Dioxide (22 - 30 mmol/L) 18 L Anion Gap (5 - 16) 8 BUN (9 - 20 mg/dL) 21 H Creatinine (0.7 - 1.2 mg/dL) 1.0 Estimated GFR (>60 ml/min) > 60 Glucose (65 - 99 mg/dL) 266 H Calcium (8.4 - 10.2 mg/dL) 7.3 L Phosphorus (2.5 - 4.5 mg/dL) 2.4 L Magnesium (1.6 - 2.3 mg/dL) 2.0 Total Bilirubin (0.2 - 1.3 mg/dL) 0.6 AST (17 - 59 U/L) 27 ALT (21 - 72 U/L) 33 Albumin (3.5 - 5.0 g/dL) 1.8 L Prealbumin (17.6 - 36.0 mg/dL) 6.3 L Triglycerides (<150 mg/dL) 233 H Hematology CBC w Diff NO MAN DIFF REQ WBC (4.8 - 10.8 /CUMM) 15.7 H RBC (4.70 - 6.10 /CUMM) 3.72 L Hgb (14.0 - 18.0 G/DL) 10.7 L Hct (42 - 52 %) 32.3 L MCV (80.0 - 94.0 FL) 86.8 MCH (27.0 - 31.0 PG) 28.6 RDW (11.5 - 14.5 %) 16.7 H Plt Count (130 - 400 /CUMM) 172 MPV (7.4 - 10.4 FL) 9.2 Gran % (42.2 - 75.2 %) 76.0 H Lymphocytes % (20.5 - 51.1 %) 17.6 L Monocytes % (1.7 - 9.3 %) 4.8 Eosinophils % (0 - 5 %) 1.6 Basophils % (0.0 - 2.0 %) 0 Absolute Granulocytes (1.4 - 6.5 /CUMM) 11.9 H Absolute Lymphocytes (1.2 - 3.4 /CUMM) 2.8 Absolute Monocytes (0.10 - 0.60 /CUMM) 0.8 H Absolute Eosinophils (0.0 - 0.7 /CUMM) 0.2 Absolute Basophils (0.0 - 0.2 /CUMM) 0 PUBS MCHC (33.0 - 37.0 G/DL) 33.0 Imaging/Other Studies: CXR: Limited study due to the [id number]. Lung volumes are low with hazy opacity suggesting small pleural effusions with atelectasis. This is similar to prior. Endotracheal tube terminating approximately 6 cm above the kika. CT w IV contrast: 1. The study demonstrates an enteric tube in the stomach with tip in the region of the pylorus. No gastric perforation is demonstrated. 2. Extravasation of contrast into the peritoneal cavity with free air in the upper abdomen is redemonstrated, as described above. 3. There has been no interval change in the percutaneous catheter in the right upper abdomen laterally. 4. Pleural effusions and atelectasis at the bases bilaterally appear relatively stable.
--- NOTE | 2017-07-16 10:58 | PN- Pulmonary ---
Subjective HPI/Critical Care Issues: Patient has deteriorated significantly overnight now on 3 pressors to maintain borderline blood pressure with hypoxic history failure renal failure and sepsis. Infectious disease has recommended starting meropenem and vancomycin and fluconazole. He now remains intubated. His nephew has been appraised of his deteriorating status Objective Current Medications: Current Medications Sig/Buck Start time Last Medication Dose Route Stop Time Status Admin Acetaminophen 1,000 MG Q6P PRN 07/16 0530 07/16 N/A 1 UNIT IV 0520 Acetaminophen 1,000 MG ONCE ONE 07/15 2045 DC 07/15 IV 07/15 Ampicillin Sodium/ 3,000 MG Q8H 07/12 1800 DC 07/16 Sulbactam Sodium IV 0145 Sodium Chloride 100 ML Budesonide/ 2 PUF BID 07/09 220 07/15 Formoterol Fumarate INH 0940 Fat Emulsion 500 ML Q24H 07/15 1900 AC 07/15 Intravenous IV 07/16 185 1957 Fat Emulsion 350 ML Q24H 07/14 1900 DC 07/14 Intravenous IV 07/15 185 205 Fentanyl Citrate 1,000 MCG Q24H 07/16 1045 UNVr Dextrose/Water 250 ML IV Fentanyl Citrate 1,000 MCG Q24H 07/16 0500 AC Dextrose/Water 250 ML IV Fentanyl Citrate 500 MCG .STK-MED ONE 07/15 2226 DC IM 07/15 2227 Fentanyl Citrate 250 MCG .STK-MED ONE 07/15 2213 DC IM 07/15 2214 Fentanyl Citrate 0 .STK-MED ONE 07/15 1425 DC .ROUTE Fluconazole 400 MG DAILY 07/16 1000 AC Sodium Chloride 200 ML IV Heparin Sodium 5,000 UNIT Q8 07/10 0138 07/16 (Porcine) SC 0534 Hydrocortisone 50 MG Q8 07/16 1400 AC Sodium Succinate IV Hydrocortisone 100 MG ONE ONE 07/16 0545 DC 07/16 Sodium Succinate IV 07/16 0546 0549 Hydromorphone HCl 2 MG .STK-MED ONE 07/15 2226 DC IM 07/15 2227 Hydromorphone HCl 2 MG .STK-MED ONE 07/15 2212 DC IM 07/15 221 Insulin Aspart 0 TIDAC 07/16 0800 DC SC Insulin Aspart 0 Q6 07/16 0600 CAN SC Insulin Aspart 4 UNITS ONCE ONE 07/15 2200 DC 07/15 SC 07/15 2201 2200 Insulin Human Regular 0 Q6 07/16 0129 AC 07/16 SC 0532 Magnesium Sulfate 1 GM Q2H 07/16 0700 AC 07/16 Dextrose/Water 100 ML IV 07/16 1059 0858 Magnesium Sulfate 1 GM ONCE ONE 07/16 0330 DC 07/16 Dextrose/Water 100 ML IV 07/16 0729 0343 Meropenem 1 GM Q8H 07/16 0200 AC 07/16 IV 0908 Metronidazole 500 MG Q6H 07/16 0200 DC 07/16 N/A 1 UNIT IV 0722 Morphine Sulfate 2 MG Q4P PRN 07/14 1145 AC 07/16 IV 0404 Norepinephrine 4 MG Q24H 07/16 0130 AC 07/16 Sodium Chloride 250 ML IV 0523 Norepinephrine 4 MG .STK-MED ONE 07/16 0122 DC IV 07/16 0123 Octreotide Acetate 500 MCG Q20H 07/15 1400 AC 07/15 Dextrose/Water 500 ML IV 1343 Pantoprazole Sodium 40 MG BID 07/10 1016 AC 07/16 IV 0908 Phenylephrine HCl 40 MG Q24H 07/16 0245 AC 07/16 Sodium Chloride 250 ML IV 0242 Phenylephrine HCl 40 MG .STK-MED ONE 07/16 0235 DC IM 07/16 0236 Potassium Chloride 20 MEQ Q8H 07/12 0930 DC 07/16 Dextrose/Sodium 1,000 ML IV 0529 Chloride Sodium Bicarbonate 50 MEQ Q20H 07/16 0900 AC 07/16 Dextrose/Sodium 1,000 ML IV 1000 Chloride Sodium Bicarbonate 75 MEQ CONTINOUS INFUSION 07/16 0630 CAN Dextrose/Sodium 1,000 ML IV Chloride Sodium Bicarbonate 50 MEQ ONCE ONE 07/16 0530 DC 07/16 IV 07/16 0531 0523 Sodium Bicarbonate 50 MEQ CONTINOUS INFUSION 07/16 0515 CAN Dextrose/Sodium 1,000 ML IV Chloride Sodium Chloride 1,000 ML BOLUS ONE 07/16 0545 DC 07/16 IV 07/16 0644 0654 Sodium Chloride 500 ML BOLUS ONE 07/16 0530 DC 07/16 IV 07/16 0629 0617 Sodium Chloride 1,000 ML BOLUS ONE 07/16 0500 DC 07/16 IV 07/16 0559 0509 Sodium Chloride 500 ML BOLUS ONE 07/16 0400 DC 07/16 IV 07/16 0459 0330 Sodium Chloride 500 ML BOLUS ONE 07/16 0230 DC 07/16 IV 07/16 0329 0221 Total Parenteral 1 UNIT Q24H 07/15 1900 AC 07/15 Nutrition IV 07/16 Total Parenteral 1 UNIT ONE 07/14 1900 DC Nutrition IV 07/15 1859 Vancomycin HCl 1,500 MG DAILY 07/16 1000 AC Sodium Chloride 250 ML IV Vasopressin 40 UNITS Q16H 07/16 0500 AC 07/16 Sodium Chloride 100 ML IV 0509 Vital Signs & I&O Last 24 Hrs of Vitals and I&O: Vital Signs Date Time Temp Pulse Resp B/P B/P Pulse O2 O2 Flow FiO2 Mean Ox Delivery Rate 07/16 0831 60 07/16 08 98.8 94 28 116/60 92 Ventilator 60% 07/16 08 92 Ventilator 60% 07/16 0624 101.2 07/16 0559 60 07/16 0523 110 57/39 07/16 0520 101.4 07/16 0514 60 07/16 0400 94 Ventilator 50% 07/16 0246 50 07/16 0139 97.9 108 20 62/00 07/16 0118 100 07/16 0100 96 Ventilator 100% 07/15 2146 99.1 07/15 2051 100.8 07/15 2000 94 Venti Mask 55% 07/15 1600 98.4 74 20 114/62 95 Nasal 6.0L Cannula 07/15 1600 95 Nasal 6.0L Cannula 07/15 1200 95 Nasal 4.0L Cannula Intake & Output 07/16 1600 07/16 0800 07/16 0000 Intake Total 6853.0 1120.0 Output Total 370 1367 Balance 6483.0 -247.0 Intake, IV 6020 672 Intake, Lipid 124.0 81.0 Intake, Oral 0 Intake, 709 367 TPN/PPN Number 0 Bowel Movements Output, 225 950 Drainage Output, Other 50 Output, Stool 2 Output, Urine 95 415 Oxygen saturation 60% 92% his blood pressure is approximately 90 on vasopressin and Jerad-Synephrine and Levophed. He continues to have significant drainage from his WILLEM drains. Exam of his chest shows diminished breath sounds cardiac exam shows regular S1 and S2 abdomen is silent ventilator settings were reviewed Impression/Plan Impression/Plan Impression/Plan: 76-year-old with bowel perforation now with septic shock. He remains pressor dependent and oligarchic in persistent hypoxic respiratory failure. Recommendations: Antibiotic adjustment as per infectious disease. Continue pressor support for blood pressure. Begin sedation with fentanyl as blood pressure tolerates. Culture sputum. Family meeting with his nephew to explain the seriousness of his condition. Patient has 2 sisters and the nephew will inform them of his status. Continue current ventilator settings
--- NOTE | 2017-07-16 12:04 | Cons- Endocrinology ---
General Information and HPI Consulting Request Date of Consult: 07/16/17 Requested By: ICU team Reason for Consult: management of hyperglycemia Source of Information: old records Exam Limitations: unable to give history (patient is intubated) History of Present Illness: 76-year-old male with Hx of CAD with low ejection fraction, atrial fibrillation, AICD, previous infection of hip with prolonged antibiotic, history of peptic ulcer disease, diabetes and renal stone, was admitted for perforation of duodenum now with septic shock in ICU. He is currently on 3 pressors, TPN, octreotide drip and bicarb drip. His BP remained low and stress dose of steroid was initiated despite his am cortisol was 24.8. Current TPN regimen: 12.5% dextrose 2100 ml/24 hours with 25 units of insulin in TPN. In addition, He is on RISS every 6 hours ( he received total of 28 units of insulin sc over past 24 hours). His FSGs were 237, 311 and 393. Allergies/Medications Allergies: Coded Allergies: NO KNOWN ALLERGIES (03/22/12) NKA PER DIPYRIDAMOLE ORDER SHEET - [facility] Home Med List: Aspirin (Ecotrin*) 81 MG TABLET.DR 1 TAB PO DAILY HEART/BLOOD (Reported) Carvedilol 6.25 MG TABLET 1 TAB PO BID HEART (Reported) Dofetilide 500 MCG CAPSULE 1 CAP PO BID HEART (Reported) Fluticasone-Salmeterol (Advair 100-50 Diskus) 100 MCG-50 MCG/DOSE BLST.W.DEV 1 PUF INH BID COPD (Reported) Liraglutide (Victoza 3-Myles) 0.6 MG/0.1 ML (18 MG/3 ML) PEN.INJCTR 1.2 MG SC QAM DIABETES (Reported) Lisinopril (Prinivil) 5 MG TABLET 1 TAB PO QHS HEART/BP (Reported) Magnesium Gluconate (Mag-G) 27 MG (500 MG) TABLET 1 TAB PO Tuesday SUPPLEMENT (Reported) Metformin HCl 500 MG TABLET 1 TAB PO BID DIABETES (Reported) [place]-3/Dha/Epa/Fish Oil (Fish Oil 500 MG Softgel) 60 MG-90 MG-500 MG CAPSULE 1 CAP PO QPM SUPPLEMENT (Reported) Simvastatin (Zocor*) 10 MG TABLET 1 TAB PO QHS CHOLESTEROL (Reported) Tamsulosin HCl (Flomax) 0.4 MG CAP.ER.24H 1 CAP PO DAILY PROSTATE (Reported) Vitamin E Acetate (Vitamin E) 400 UNIT CAPSULE 1 CAP PO BID SUPPLEMENT ( Reported) Review of Systems Review of Systems Constitutional: Reports: see HPI (patient is intubated.). 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 FH: heart disease BROTHER FH: lung cancer FATHER FH: prostate cancer Psychosocial History Who Do You Live With? with nephew Services at Home: None Primary Language: Divehi Smoking Status: Never Smoked Functional Ability ADLs Independent: eating. Needs Assist: dressing, toileting, bathing. Ambulation: walker IADLs Needs Assist: shopping, housework, finances, food prep, telephone, transportation, medication admin. Exam & Diagnostic Data Last 24 Hrs of Vital Signs/I&O Vital Signs Date Time Temp Pulse Resp B/P B/P Pulse O2 O2 Flow FiO2 Mean Ox Delivery Rate 07/16 1101 60 07/16 0831 60 07/16 0800 98.8 94 28 116/60 92 Ventilator 60% 07/16 0800 92 Ventilator 60% 07/16 0624 101.2 07/16 0559 60 07/16 0523 110 57/39 07/16 0520 101.4 07/16 0514 60 07/16 0400 94 Ventilator 50% 07/16 0246 50 07/16 0139 97.9 108 20 62/00 07/16 0118 100 07/16 0100 96 Ventilator 100% 07/15 2146 99.1 07/15 2051 100.8 07/15 2000 94 Venti Mask 55% 07/15 1600 98.4 74 20 114/62 95 Nasal 6.0L Cannula 07/15 1600 95 Nasal 6.0L Cannula Intake & Output 07/16 1600 07/16 0800 07/16 0000 Intake Total 6853.0 1120.0 Output Total 370 1367 Balance 6483.0 -247.0 Intake, IV 6020 672 Intake, Lipid 124.0 81.0 Intake, Oral 0 Intake, 709 367 TPN/PPN Number 0 Bowel Movements Output, 225 950 Drainage Output, Other 50 Output, Stool 2 Output, Urine 95 415 Physical Exam General Appearance: intubated Respiratory: crackles (scattered ), wheezing Cardiovascular: tachycardia Gastrointestinal: distention Extremities: swelling (trace) Labs/Les Results: Laboratory Tests 07/16 07/16 07/16 0856 0856 0630 Chemistry Sodium (137 - 145 mmol/L) 142 Potassium (3.5 - 5.1 mmol/L) 4.6 Chloride (98 - 107 mmol/L) 113 H Carbon Dioxide (22 - 30 mmol/L) 16 L Anion Gap (5 - 16) 13 BUN (9 - 20 mg/dL) 26 H Creatinine (0.7 - 1.2 mg/dL) 1.6 H Estimated GFR (>60 ml/min) 42 L BUN/Creatinine Ratio (7 - 25 %) 16.3 Glucose (65 - 99 mg/dL) 300 H Lactic Acid (0.7 - 2.1 mmol/L) 4.8 H Calcium (8.4 - 10.2 mg/dL) 6.8 L Phosphorus (2.5 - 4.5 mg/dL) 3.5 Magnesium (1.6 - 2.3 mg/dL) 1.8 Total Bilirubin (0.2 - 1.3 mg/dL) 0.9 AST (17 - 59 U/L) 31 ALT (21 - 72 U/L) 35 Albumin (3.5 - 5.0 g/dL) 1.5 L Cortisol AM Sample Cancelled Hematology CBC w Diff MAN DIFF ORDERED WBC (4.8 - 10.8 /CUMM) 48.3 *H RBC (4.70 - 6.10 /CUMM) 4.51 L Hgb (14.0 - 18.0 G/DL) 12.9 L Hct (42 - 52 %) 39.6 L MCV (80.0 - 94.0 FL) 87.8 MCH (27.0 - 31.0 PG) 28.7 RDW (11.5 - 14.5 %) 17.2 H Plt Count (130 - 400 /CUMM) 354 MPV (7.4 - 10.4 FL) 8.5 Gran % (42.2 - 75.2 %) 98.5 H Lymphocytes % (20.5 - 51.1 %) 1.2 L Monocytes % (1.7 - 9.3 %) 0.1 L Eosinophils % (0 - 5 %) 0.2 Basophils % (0.0 - 2.0 %) 0 Absolute Granulocytes (1.4 - 6.5 /CUMM) 47.6 H Segmented Neutrophils (42.2 - 75.2 %) 56 Band Neutrophils (0.0 - 5.0 %) 37 H Absolute Lymphocytes (1.2 - 3.4 /CUMM) 0.6 L Lymphocytes (20.5 - 51.1 %) 3 L Monocytes (1.7 - 9.3 %) 1 L Absolute Monocytes (0.10 - 0.60 /CUMM) 0.1 Absolute Eosinophils (0.0 - 0.7 /CUMM) 0.1 Absolute Basophils (0.0 - 0.2 /CUMM) 0 Metamyelocytes (0.0 - 1.0 %) 3 H Nucleated RBCs (0.0 - 0.0 /100WBC) 1 H Poikilocytosis 1+ Anisocytosis 2+ PUBS MCHC (33.0 - 37.0 G/DL) 32.6 L 07/16 07/16 07/16 0545 0557 0317 Chemistry Sodium (137 - 145 mmol/L) 140 Potassium (3.5 - 5.1 mmol/L) 4.4 Chloride (98 - 107 mmol/L) 112 H Carbon Dioxide (22 - 30 mmol/L) 15 L Anion Gap (5 - 16) 13 BUN (9 - 20 mg/dL) 25 H Creatinine (0.7 - 1.2 mg/dL) 1.6 H Estimated GFR (>60 ml/min) 42 L BUN/Creatinine Ratio (7 - 25 %) 15.6 Glucose (65 - 99 mg/dL) 296 H Lactic Acid (0.7 - 2.1 mmol/L) 4.6 H Cancelled Calcium (8.4 - 10.2 mg/dL) 6.8 L Phosphorus (2.5 - 4.5 mg/dL) 3.7 Magnesium (1.6 - 2.3 mg/dL) 1.6 Total Bilirubin (0.2 - 1.3 mg/dL) 0.8 AST (17 - 59 U/L) 25 ALT (21 - 72 U/L) 33 Albumin (3.5 - 5.0 g/dL) 1.5 L Cortisol AM Sample (4.46 - 22.7 ug/dL) 24.8 H Hematology CBC w Diff MAN DIFF ORDERED WBC (4.8 - 10.8 /CUMM) 39.9 *H RBC (4.70 - 6.10 /CUMM) 4.41 L Hgb (14.0 - 18.0 G/DL) 12.6 L Hct (42 - 52 %) 38.3 L MCV (80.0 - 94.0 FL) 87.0 MCH (27.0 - 31.0 PG) 28.5 RDW (11.5 - 14.5 %) 16.9 H Plt Count (130 - 400 /CUMM) 342 MPV (7.4 - 10.4 FL) 8.4 Gran % (42.2 - 75.2 %) 98.0 H Lymphocytes % (20.5 - 51.1 %) 1.6 L Monocytes % (1.7 - 9.3 %) 0.2 L Eosinophils % (0 - 5 %) 0.2 Basophils % (0.0 - 2.0 %) 0 Absolute Granulocytes (1.4 - 6.5 /CUMM) 39.1 H Segmented Neutrophils (42.2 - 75.2 %) 59 Band Neutrophils (0.0 - 5.0 %) 32 H Absolute Lymphocytes (1.2 - 3.4 /CUMM) 0.7 L Lymphocytes (20.5 - 51.1 %) 7 L Monocytes (1.7 - 9.3 %) 1 L Absolute Monocytes (0.10 - 0.60 /CUMM) 0.1 Absolute Eosinophils (0.0 - 0.7 /CUMM) 0.1 Absolute Basophils (0.0 - 0.2 /CUMM) 0 Metamyelocytes (0.0 - 1.0 %) 1 Nucleated RBCs (0.0 - 0.0 /100WBC) 1 H Platelet Estimate (ADEQUATE) ADEQUATE Anisocytosis 1+ PUBS MCHC (33.0 - 37.0 G/DL) 32.8 L Other Body Source Fld Total RBCs Counted (%) 100 07/16 07/16 0300 0140 Blood Gas pH (7.35 - 7.45 PH) 7.28 *L pCO2 (35 - 45 TORR) 36 pO2 (80 - 100 TORR) 76 L HCO3 (21 - 28 MEQ/L) 16 L ABG O2 Sat (Measured) (>96.0 %) 93.0 L P-50 (Temp Corrected) N Carboxyhemoglobin (1.5 - 5.0 %) 0.2 L O2 Concentration % .50 Respiration Rate (BPM) 20 O2 Delivery Method VENT Vent Mode A/C Expiratory Pressure (CMH2O/P) 5 Tidal Volume (CC) 600 Chemistry Sodium (137 - 145 mmol/L) 139 Potassium (3.5 - 5.1 mmol/L) 4.7 Chloride (98 - 107 mmol/L) 109 H Carbon Dioxide (22 - 30 mmol/L) 18 L Anion Gap (5 - 16) 12 BUN (9 - 20 mg/dL) 22 H Creatinine (0.7 - 1.2 mg/dL) 1.6 H Estimated GFR (>60 ml/min) 42 L Glucose (65 - 99 mg/dL) 295 H Lactic Acid (0.7 - 2.1 mmol/L) 4.0 H Calcium (8.4 - 10.2 mg/dL) 7.4 L Phosphorus (2.5 - 4.5 mg/dL) 5.2 H Magnesium (1.6 - 2.3 mg/dL) 1.5 L Total Bilirubin (0.2 - 1.3 mg/dL) 0.7 AST (17 - 59 U/L) 29 ALT (21 - 72 U/L) 34 Troponin I (<0.11 ng/ml) 0.01 Albumin (3.5 - 5.0 g/dL) 1.9 L Coagulation PT (9.4 - 12.5 SEC) 14.5 H INR (0.90 - 1.17) 1.39 H APTT (25 - 37 SEC) 34 Hematology CBC w Diff MAN DIFF ORDERED WBC (4.8 - 10.8 /CUMM) 34.7 *H RBC (4.70 - 6.10 /CUMM) 4.70 Hgb (14.0 - 18.0 G/DL) 13.5 L Hct (42 - 52 %) 41.0 L MCV (80.0 - 94.0 FL) 87.1 MCH (27.0 - 31.0 PG) 28.8 RDW (11.5 - 14.5 %) 16.3 H Plt Count (130 - 400 /CUMM) 353 MPV (7.4 - 10.4 FL) 8.5 Segmented Neutrophils (42.2 - 75.2 %) 69 Band Neutrophils (0.0 - 5.0 %) 17 H Lymphocytes (20.5 - 51.1 %) 10 L Metamyelocytes (0.0 - 1.0 %) 4 H Nucleated RBCs (0.0 - 0.0 /100WBC) 1 H Platelet Estimate (ADEQUATE) ADEQUATE Anisocytosis 1+ PUBS MCHC (33.0 - 37.0 G/DL) 33.0 Miscellaneous Phlebotomy Draw Site LEFT BRACHIAL Other Body Source Fld Total RBCs Counted (%) 100 07/16 07/15 07/15 0128 2100 1735 Chemistry Sodium (137 - 145 mmol/L) Cancelled 142 Potassium (3.5 - 5.1 mmol/L) Cancelled 4.3 Chloride (98 - 107 mmol/L) Cancelled 108 H Carbon Dioxide (22 - 30 mmol/L) Cancelled 21 L Anion Gap (5 - 16) Cancelled 12 BUN (9 - 20 mg/dL) Cancelled 16 Creatinine (0.7 - 1.2 mg/dL) Cancelled 0.9 Estimated GFR (>60 ml/min) > 60 BUN/Creatinine Ratio Cancelled Glucose (65 - 99 mg/dL) 258 H Lactic Acid (0.7 - 2.1 mmol/L) Cancelled 3.3 H 3.5 H Calcium (8.4 - 10.2 mg/dL) 7.7 L Phosphorus (2.5 - 4.5 mg/dL) 2.7 Magnesium (1.6 - 2.3 mg/dL) 1.5 L Total Bilirubin (0.2 - 1.3 mg/dL) 0.7 AST (17 - 59 U/L) 33 ALT (21 - 72 U/L) 36 Troponin I Cancelled Albumin (3.5 - 5.0 g/dL) 2.3 L Coagulation PT (9.4 - 12.5 SEC) 13.5 H INR (0.90 - 1.17) 1.29 H APTT (25 - 37 SEC) 31 Hematology CBC w Diff MAN DIFF ORDERED WBC (4.8 - 10.8 /CUMM) 27.6 H RBC (4.70 - 6.10 /CUMM) 4.70 Hgb (14.0 - 18.0 G/DL) 13.2 L Hct (42 - 52 %) 40.7 L MCV (80.0 - 94.0 FL) 86.5 MCH (27.0 - 31.0 PG) 28.1 RDW (11.5 - 14.5 %) 16.7 H Plt Count (130 - 400 /CUMM) 350 MPV (7.4 - 10.4 FL) 9.1 Gran % (42.2 - 75.2 %) 76.0 H Lymphocytes % (20.5 - 51.1 %) 21.5 Monocytes % (1.7 - 9.3 %) 1.9 Eosinophils % (0 - 5 %) 0.5 Basophils % (0.0 - 2.0 %) 0.1 Absolute Granulocytes (1.4 - 6.5 /CUMM) 21.0 H Segmented Neutrophils (42.2 - 75.2 %) 70 Band Neutrophils (0.0 - 5.0 %) 12 H Absolute Lymphocytes (1.2 - 3.4 /CUMM) 5.9 H Lymphocytes (20.5 - 51.1 %) 11 L Monocytes (1.7 - 9.3 %) 3 Absolute Monocytes (0.10 - 0.60 /CUMM) 0.5 Eosinophils (0 - 5.0 %) 2 Absolute Eosinophils (0.0 - 0.7 /CUMM) 0.1 Absolute Basophils (0.0 - 0.2 /CUMM) 0 Metamyelocytes (0.0 - 1.0 %) 1 Myelocytes (0 - 0 %) 1 H Platelet Estimate (ADEQUATE) VERIFIED BY SMEAR Normocytic RBCs VERIFIED Normochromic RBCs VERIFIED PUBS MCHC (33.0 - 37.0 G/DL) 32.5 L Other Body Source Fld Total RBCs Counted (%) 100 07/15 1720 Blood Gas pH (7.35 - 7.45 PH) 7.49 H pCO2 (35 - 45 TORR) 23 L pO2 (80 - 100 TORR) 75 L HCO3 (21 - 28 MEQ/L) 17 L ABG O2 Sat (Measured) (>96.0 %) 95.0 L P-50 (Temp Corrected) N Carboxyhemoglobin (1.5 - 5.0 %) 0.4 L O2 Concentration % 50% Temperature (97.0 - 100.0 FARH) 98.4 O2 Delivery Method VM Miscellaneous Phlebotomy Draw Site LEFT RADIAL Assessment/Plan Assessment/Plan 76-year-old male with Hx of CAD with low ejection fraction, atrial fibrillation, AICD, previous infection of hip with prolonged antibiotic, history of peptic ulcer disease, diabetes and renal stone, was admitted for perforation of duodenum now with septic shock in ICU. He is currently on 3 pressors, TPN, octreotide drip and bicarb drip. His BP remained low and stress dose of steroid was initiated despite his am cortisol was 24.8. DM management: 1. add insulin 36 units to TPN ( 12.5% dextrose x 2100 ml/24 hours) today; 2. start insulin drip; monitor FSG every one hour; follow ICU non DKA insulin drip protocol; the goal of glucose level is between 140 and 180 mg/dl; 3. stop RISS every 6 hours. 4. continue the other management. will follow. Consult Acknowledgment - Thank you for your consult request.
--- NOTE | 2017-07-16 12:30 | PN- Infect Dx ---
Subjective Subjective: Fever. Hypotension. Reintubated. POD #1 Review of Systems Comments: 12 points reviewed as noted, otherwise negative. Objective Last 24 Hrs of Vital Signs/I&O Vital Signs Date Time Temp Pulse Resp B/P B/P Pulse O2 O2 Flow FiO2 Mean Ox Delivery Rate 07/16 1101 60 07/16 0831 60 07/16 08 98.8 94 28 116/60 92 Ventilator 60% 07/16 08 92 Ventilator 60% 07/16 0624 101.2 07/16 0559 60 07/16 0523 110 57/39 07/16 0520 101.4 07/16 0514 60 07/16 0400 94 Ventilator 50% 07/16 0246 50 07/16 0139 97.9 108 20 62/00 07/16 0118 100 07/16 0100 96 Ventilator 100% 07/15 2146 99.1 07/15 205 100.8 07/15 2000 94 Venti Mask 55% 07/15 1600 98.4 74 20 114/62 95 Nasal 6.0L Cannula 07/15 1600 95 Nasal 6.0L Cannula Intake & Output 07/16 1600 07/16 0800 07/16 0000 Intake Total 6853.0 1120.0 Output Total 370 1367 Balance 6483.0 -247.0 Intake, IV 6020 672 Intake, Lipid 124.0 81.0 Intake, Oral 0 Intake, 709 367 TPN/PPN Number 0 Bowel Movements Output, 225 950 Drainage Output, Other 50 Output, Stool 2 Output, Urine 95 415 Physical Exam Other Physical Findings: Critically ill, intubated HEENT AT, ETT in place Neck No YOON Lungs BS diminished bases Heart regular rhythm with no murmur, AICD Abdomen is distended; R side WILLEM drain in place Extremities 1-2+ edema both upper extremities; PICC in the right upper extremity with no inflammation at the site Duvall catheter patent Skin pale Results Last 24 Hours of Lab Results: Laboratory Tests 07/16 07/16 07/16 0856 0856 0630 Chemistry Sodium (137 - 145 mmol/L) 142 Potassium (3.5 - 5.1 mmol/L) 4.6 Chloride (98 - 107 mmol/L) 113 H Carbon Dioxide (22 - 30 mmol/L) 16 L Anion Gap (5 - 16) 13 BUN (9 - 20 mg/dL) 26 H Creatinine (0.7 - 1.2 mg/dL) 1.6 H Estimated GFR (>60 ml/min) 42 L BUN/Creatinine Ratio (7 - 25 %) 16.3 Glucose (65 - 99 mg/dL) 300 H Lactic Acid (0.7 - 2.1 mmol/L) 4.8 H Calcium (8.4 - 10.2 mg/dL) 6.8 L Phosphorus (2.5 - 4.5 mg/dL) 3.5 Magnesium (1.6 - 2.3 mg/dL) 1.8 Total Bilirubin (0.2 - 1.3 mg/dL) 0.9 AST (17 - 59 U/L) 31 ALT (21 - 72 U/L) 35 Albumin (3.5 - 5.0 g/dL) 1.5 L Cortisol AM Sample Cancelled Hematology CBC w Diff MAN DIFF ORDERED WBC (4.8 - 10.8 /CUMM) 48.3 *H RBC (4.70 - 6.10 /CUMM) 4.51 L Hgb (14.0 - 18.0 G/DL) 12.9 L Hct (42 - 52 %) 39.6 L MCV (80.0 - 94.0 FL) 87.8 MCH (27.0 - 31.0 PG) 28.7 RDW (11.5 - 14.5 %) 17.2 H Plt Count (130 - 400 /CUMM) 354 MPV (7.4 - 10.4 FL) 8.5 Gran % (42.2 - 75.2 %) 98.5 H Lymphocytes % (20.5 - 51.1 %) 1.2 L Monocytes % (1.7 - 9.3 %) 0.1 L Eosinophils % (0 - 5 %) 0.2 Basophils % (0.0 - 2.0 %) 0 Absolute Granulocytes (1.4 - 6.5 /CUMM) 47.6 H Segmented Neutrophils (42.2 - 75.2 %) 56 Band Neutrophils (0.0 - 5.0 %) 37 H Absolute Lymphocytes (1.2 - 3.4 /CUMM) 0.6 L Lymphocytes (20.5 - 51.1 %) 3 L Monocytes (1.7 - 9.3 %) 1 L Absolute Monocytes (0.10 - 0.60 /CUMM) 0.1 Absolute Eosinophils (0.0 - 0.7 /CUMM) 0.1 Absolute Basophils (0.0 - 0.2 /CUMM) 0 Metamyelocytes (0.0 - 1.0 %) 3 H Nucleated RBCs (0.0 - 0.0 /100WBC) 1 H Poikilocytosis 1+ Anisocytosis 2+ PUBS MCHC (33.0 - 37.0 G/DL) 32.6 L 07/16 07/16 07/16 0545 0537 0317 Chemistry Sodium (137 - 145 mmol/L) 140 Potassium (3.5 - 5.1 mmol/L) 4.4 Chloride (98 - 107 mmol/L) 112 H Carbon Dioxide (22 - 30 mmol/L) 15 L Anion Gap (5 - 16) 13 BUN (9 - 20 mg/dL) 25 H Creatinine (0.7 - 1.2 mg/dL) 1.6 H Estimated GFR (>60 ml/min) 42 L BUN/Creatinine Ratio (7 - 25 %) 15.6 Glucose (65 - 99 mg/dL) 296 H Lactic Acid (0.7 - 2.1 mmol/L) 4.6 H Cancelled Calcium (8.4 - 10.2 mg/dL) 6.8 L Phosphorus (2.5 - 4.5 mg/dL) 3.7 Magnesium (1.6 - 2.3 mg/dL) 1.6 Total Bilirubin (0.2 - 1.3 mg/dL) 0.8 AST (17 - 59 U/L) 25 ALT (21 - 72 U/L) 33 Albumin (3.5 - 5.0 g/dL) 1.5 L Cortisol AM Sample (4.46 - 22.7 ug/dL) 24.8 H Hematology CBC w Diff MAN DIFF ORDERED WBC (4.8 - 10.8 /CUMM) 39.9 *H RBC (4.70 - 6.10 /CUMM) 4.41 L Hgb (14.0 - 18.0 G/DL) 12.6 L Hct (42 - 52 %) 38.3 L MCV (80.0 - 94.0 FL) 87.0 MCH (27.0 - 31.0 PG) 28.5 RDW (11.5 - 14.5 %) 16.9 H Plt Count (130 - 400 /CUMM) 342 MPV (7.4 - 10.4 FL) 8.4 Gran % (42.2 - 75.2 %) 98.0 H Lymphocytes % (20.5 - 51.1 %) 1.6 L Monocytes % (1.7 - 9.3 %) 0.2 L Eosinophils % (0 - 5 %) 0.2 Basophils % (0.0 - 2.0 %) 0 Absolute Granulocytes (1.4 - 6.5 /CUMM) 39.1 H Segmented Neutrophils (42.2 - 75.2 %) 59 Band Neutrophils (0.0 - 5.0 %) 32 H Absolute Lymphocytes (1.2 - 3.4 /CUMM) 0.7 L Lymphocytes (20.5 - 51.1 %) 7 L Monocytes (1.7 - 9.3 %) 1 L Absolute Monocytes (0.10 - 0.60 /CUMM) 0.1 Absolute Eosinophils (0.0 - 0.7 /CUMM) 0.1 Absolute Basophils (0.0 - 0.2 /CUMM) 0 Metamyelocytes (0.0 - 1.0 %) 1 Nucleated RBCs (0.0 - 0.0 /100WBC) 1 H Platelet Estimate (ADEQUATE) ADEQUATE Anisocytosis 1+ PUBS MCHC (33.0 - 37.0 G/DL) 32.8 L Other Body Source Fld Total RBCs Counted (%) 100 07/16 07/16 0300 0140 Blood Gas pH (7.35 - 7.45 PH) 7.28 *L pCO2 (35 - 45 TORR) 36 pO2 (80 - 100 TORR) 76 L HCO3 (21 - 28 MEQ/L) 16 L ABG O2 Sat (Measured) (>96.0 %) 93.0 L P-50 (Temp Corrected) N Carboxyhemoglobin (1.5 - 5.0 %) 0.2 L O2 Concentration % .50 Respiration Rate (BPM) 20 O2 Delivery Method VENT Vent Mode A/C Expiratory Pressure (CMH2O/P) 5 Tidal Volume (CC) 600 Chemistry Sodium (137 - 145 mmol/L) 139 Potassium (3.5 - 5.1 mmol/L) 4.7 Chloride (98 - 107 mmol/L) 109 H Carbon Dioxide (22 - 30 mmol/L) 18 L Anion Gap (5 - 16) 12 BUN (9 - 20 mg/dL) 22 H Creatinine (0.7 - 1.2 mg/dL) 1.6 H Estimated GFR (>60 ml/min) 42 L Glucose (65 - 99 mg/dL) 295 H Lactic Acid (0.7 - 2.1 mmol/L) 4.0 H Calcium (8.4 - 10.2 mg/dL) 7.4 L Phosphorus (2.5 - 4.5 mg/dL) 5.2 H Magnesium (1.6 - 2.3 mg/dL) 1.5 L Total Bilirubin (0.2 - 1.3 mg/dL) 0.7 AST (17 - 59 U/L) 29 ALT (21 - 72 U/L) 34 Troponin I (<0.11 ng/ml) 0.01 Albumin (3.5 - 5.0 g/dL) 1.9 L Coagulation PT (9.4 - 12.5 SEC) 14.5 H INR (0.90 - 1.17) 1.39 H APTT (25 - 37 SEC) 34 Hematology CBC w Diff MAN DIFF ORDERED WBC (4.8 - 10.8 /CUMM) 34.7 *H RBC (4.70 - 6.10 /CUMM) 4.70 Hgb (14.0 - 18.0 G/DL) 13.5 L Hct (42 - 52 %) 41.0 L MCV (80.0 - 94.0 FL) 87.1 MCH (27.0 - 31.0 PG) 28.8 RDW (11.5 - 14.5 %) 16.3 H Plt Count (130 - 400 /CUMM) 353 MPV (7.4 - 10.4 FL) 8.5 Segmented Neutrophils (42.2 - 75.2 %) 69 Band Neutrophils (0.0 - 5.0 %) 17 H Lymphocytes (20.5 - 51.1 %) 10 L Metamyelocytes (0.0 - 1.0 %) 4 H Nucleated RBCs (0.0 - 0.0 /100WBC) 1 H Platelet Estimate (ADEQUATE) ADEQUATE Anisocytosis 1+ PUBS MCHC (33.0 - 37.0 G/DL) 33.0 Miscellaneous Phlebotomy Draw Site LEFT BRACHIAL Other Body Source Fld Total RBCs Counted (%) 100 07/16 07/15 07/15 0128 2100 1735 Chemistry Sodium (137 - 145 mmol/L) Cancelled 142 Potassium (3.5 - 5.1 mmol/L) Cancelled 4.3 Chloride (98 - 107 mmol/L) Cancelled 108 H Carbon Dioxide (22 - 30 mmol/L) Cancelled 21 L Anion Gap (5 - 16) Cancelled 12 BUN (9 - 20 mg/dL) Cancelled 16 Creatinine (0.7 - 1.2 mg/dL) Cancelled 0.9 Estimated GFR (>60 ml/min) > 60 BUN/Creatinine Ratio Cancelled Glucose (65 - 99 mg/dL) 258 H Lactic Acid (0.7 - 2.1 mmol/L) Cancelled 3.3 H 3.5 H Calcium (8.4 - 10.2 mg/dL) 7.7 L Phosphorus (2.5 - 4.5 mg/dL) 2.7 Magnesium (1.6 - 2.3 mg/dL) 1.5 L Total Bilirubin (0.2 - 1.3 mg/dL) 0.7 AST (17 - 59 U/L) 33 ALT (21 - 72 U/L) 36 Troponin I Cancelled Albumin (3.5 - 5.0 g/dL) 2.3 L Coagulation PT (9.4 - 12.5 SEC) 13.5 H INR (0.90 - 1.17) 1.29 H APTT (25 - 37 SEC) 31 Hematology CBC w Diff MAN DIFF ORDERED WBC (4.8 - 10.8 /CUMM) 27.6 H RBC (4.70 - 6.10 /CUMM) 4.70 Hgb (14.0 - 18.0 G/DL) 13.2 L Hct (42 - 52 %) 40.7 L MCV (80.0 - 94.0 FL) 86.5 MCH (27.0 - 31.0 PG) 28.1 RDW (11.5 - 14.5 %) 16.7 H Plt Count (130 - 400 /CUMM) 350 MPV (7.4 - 10.4 FL) 9.1 Gran % (42.2 - 75.2 %) 76.0 H Lymphocytes % (20.5 - 51.1 %) 21.5 Monocytes % (1.7 - 9.3 %) 1.9 Eosinophils % (0 - 5 %) 0.5 Basophils % (0.0 - 2.0 %) 0.1 Absolute Granulocytes (1.4 - 6.5 /CUMM) 21.0 H Segmented Neutrophils (42.2 - 75.2 %) 70 Band Neutrophils (0.0 - 5.0 %) 12 H Absolute Lymphocytes (1.2 - 3.4 /CUMM) 5.9 H Lymphocytes (20.5 - 51.1 %) 11 L Monocytes (1.7 - 9.3 %) 3 Absolute Monocytes (0.10 - 0.60 /CUMM) 0.5 Eosinophils (0 - 5.0 %) 2 Absolute Eosinophils (0.0 - 0.7 /CUMM) 0.1 Absolute Basophils (0.0 - 0.2 /CUMM) 0 Metamyelocytes (0.0 - 1.0 %) 1 Myelocytes (0 - 0 %) 1 H Platelet Estimate (ADEQUATE) VERIFIED BY SMEAR Normocytic RBCs VERIFIED Normochromic RBCs VERIFIED PUBS MCHC (33.0 - 37.0 G/DL) 32.5 L Other Body Source Fld Total RBCs Counted (%) 100 07/15 1720 Blood Gas pH (7.35 - 7.45 PH) 7.49 H pCO2 (35 - 45 TORR) 23 L pO2 (80 - 100 TORR) 75 L HCO3 (21 - 28 MEQ/L) 17 L ABG O2 Sat (Measured) (>96.0 %) 95.0 L P-50 (Temp Corrected) N Carboxyhemoglobin (1.5 - 5.0 %) 0.4 L O2 Concentration % 50% Temperature (97.0 - 100.0 FARH) 98.4 O2 Delivery Method VM Miscellaneous Phlebotomy Draw Site LEFT RADIAL Last 24 Hours of Les Results: SPEC #: [id number] CARMEN: 07/08/17 STATUS: COMP RECD: 07/08/[address]: ELIOT ROBISON PA-C SOURCE: URINE ROUT ENTR: 07/08/[address]: ISIDORO RODRÍGUEZ,JUAN Cornejo SPDESC: URINE STRA ORDERED: URINE CULTURE COMMENT: TRIO Procedure Result > URINE CULTURE Final 07/10/17 Approx. 20,000 colonies per ml of: ESCHERICHIA COLI 1. ESCHERICHIA COLI RX AB ------ -- AMPICILLIN S CEFAZOLIN S AMOXICILLIN/CLAVULINIC ACID S AMPICILLIN/SULBACTAM S CIPROFLOXACIN S GENTAMICIN S NITROFURANTOIN S TRIMETHOPRIM/SULFAMETHOXAZOLE S Note: Infectious Diseases Society of [place] Guidelines state that asymptomatic bacteriuria is not associated with any increase in morbidity or mortality in most patients and therefore treatment is usually not indicated unless patients are less than five years old, or about to undergo urological procedures. Recent Imaging Studies: IMPRESSION: 1. The study demonstrates an enteric tube in the stomach with tip in the region of the pylorus. No gastric perforation is demonstrated. 2. Extravasation of contrast into the peritoneal cavity with free air in the upper abdomen is redemonstrated, as described above. 3. There has been no interval change in the percutaneous catheter in the right upper abdomen laterally. 4. Pleural effusions and atelectasis at the bases bilaterally appear relatively stable. DICTATED BY: MICKI STEWART MD DATE/TIME DICTATED:07/15/171939 SUPERVISOR BAKING:AMEE DATE/TIME TRANSCRIBED:07/15/171939 SERVICE DATE: 07/16/170128 EXAM TYPE: RAD - XRY-PORTABLE CHEST XRAY EXAMINATION: XR PORTABLE CHEST CLINICAL INFORMATION: Status post exploratory laparotomy. COMPARISON: 07/15/2017 TECHNIQUE: Portable frontal view of the chest was obtained. FINDINGS: There is an endotracheal tube in place which terminates 6 cm above the kika. Multiple cardiac leads overlie the chest. Right-sided PICC line remains in place. Left chest wall AICD/pacer is again noted. Median sternotomy wires appear intact. The right costophrenic angle is not fully included on this study. Lung volumes are low. Hazy basilar opacities are similar to prior. No pneumothorax. The cardiomediastinal silhouette remains prominent. IMPRESSION: Limited study due to the [id number]. Lung volumes are low with hazy opacity suggesting small pleural effusions with atelectasis. This is similar to prior. Endotracheal tube terminating approximately 6 cm above the kika. 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 Previous day w/ significant amount of output through the WILLEM drain, suggesting an ongoing duodenal leak; repeat CT of the abdomen was performed 07/15 revealed free air/extravasation of contrast into peritoneal cavity; taken to sx for repair fabrizio patch previous day; currently WILLEM drain 125 cc/shift. Treated w/ Unasyn (D#7). Hospital course complicated by sepsis/secondary peritonitis (fever, hypotension, severe leukocytosis/leukemoid reaction) Suggestion: 1. F/u repeat cx results. 2. Meropenem 1 gm q 8 h; iv vancomycin dosed per pharmacy; goal trough 15-20, as well as empiric antifungal coverage (if Caspofundin not available iv Fluconazole 400 mg iv x1) pending above. 3. Monitor CBC, BMP, LFT's, lactic acid.
[2017-07-16 15:50] VITALS: BP 112/0
[2017-07-16 21:28] LABS: ABSOLUTE EOSINOPHIL COUNT 0 /CUMM (0.0-0.7); MEAN CORPUSCULAR HGB 28.3 PG (27.0-31.0); RBC DISTRIBUTION WIDTH 17.5 % (11.5-14.5)
[2017-07-16 21:37] LABS: ABSOLUTE BASOPHIL COUNT 0.1 /CUMM (0.0-0.2); ABSOLUTE GRANULOCYTE CT 38.9 /CUMM (1.4-6.5); BASOPHIL % 0.2 % (0.0-2.0); EOSINOPHIL % 0.1 % (0-5); GRANULOCYTE % 84.6 % (42.2-75.2); HEMATOCRIT 37.6 % (42-52); MEAN CORPUSCULAR HGB CONC 32.2 G/DL (33.0-37.0); MEAN CORPUSCULAR VOLUME 87.9 FL (80.0-94.0); MEAN PLATELET VOLUME 9.1 FL (7.4-10.4); PLATELET COUNT 348 /CUMM (130-400); RED BLOOD CELL CT 4.27 /CUMM (4.70-6.10)
[2017-07-17] VITALS: BP 114/00
[2017-07-17 04:59] LABS: ABSOLUTE BASOPHIL COUNT 0 /CUMM (0.0-0.2); ABSOLUTE EOSINOPHIL COUNT 0 /CUMM (0.0-0.7); ABSOLUTE GRANULOCYTE CT 38.7 /CUMM (1.4-6.5); ABSOLUTE MONOCYTE COUNT 0.2 /CUMM (0.10-0.60); BASOPHIL % 0.1 % (0.0-2.0); EOSINOPHIL % 0 % (0-5); GRANULOCYTE % 86.1 % (42.2-75.2); HEMATOCRIT 35.7 % (42-52); MEAN CORPUSCULAR HGB 28.4 PG (27.0-31.0); MEAN CORPUSCULAR HGB CONC 32.4 G/DL (33.0-37.0); MEAN CORPUSCULAR VOLUME 87.7 FL (80.0-94.0); MEAN PLATELET VOLUME 8.8 FL (7.4-10.4); PLATELET COUNT 313 /CUMM (130-400); RBC DISTRIBUTION WIDTH 17.3 % (11.5-14.5); RED BLOOD CELL CT 4.06 /CUMM (4.70-6.10)
--- NOTE | 2017-07-17 05:42 | PN- General Surgery ---
See Addendum Subjective Subjective: remains intubated in ICU. Does repond to verbal stimuli, good eye contact. Now only on 2 pressors, though SBP currently in 80s. Tmax 6pm 103.8, cooled w cooling blanket, temp currently 99. Objective Vital Signs and I&Os Vital Signs Date Time Temp Pulse Resp B/P B/P Pulse O2 O2 Flow FiO2 Mean Ox Delivery Rate 07/17 0444 60 07/17 0400 97 Ventilator 60% 07/17 0315 74 102/57 07/17 0227 60 07/17 0106 76 104/54 07/17 0000 99.9 75 22 114/00 97 Ventilator 60% 07/17 0000 97 Ventilator 60% 07/16 2233 60 07/16 2130 80 106/60 07/16 2021 60 07/16 2000 98 Ventilator 60% 07/16 1857 103.7 07/16 1826 8 100/50 07/16 1756 103.8 07/16 1618 92 90/50 07/16 1600 60 07/16 1600 93 Ventilator 60% 07/16 1550 97.6 96 34 112/0 93 Ventilator 60% 07/16 1430 60 07/16 1200 94 Ventilator 60% 07/16 1101 60 07/16 0831 60 07/16 0800 98.8 94 28 116/60 92 Ventilator 60% 07/16 0800 92 Ventilator 60% 07/16 0624 101.2 07/16 0559 60 Intake & Output 07/17 0800 07/17 0000 07/16 1600 07/16 0800 07/16 0000 07/15 1600 Intake Total 2410.0 4048.7 6853.0 1120.0 1218.0 Output Total 585 465 845 1494 2250 Balance 1825.0 3553.7 6483.0 -247.0 -1032.0 Intake, IV 1648 3287.3 6020 672 795 Intake, Lipid 113.0 113.4 124.0 81.0 85.0 Intake, Oral 0 0 Intake, 649 648 709 367 338 TPN/PPN Number 1 1 0 2 Bowel Movements Output, 150 225 225 950 650 Drainage Output, 10 Gastric Drainage Output, Other 50 Output, Stool 2 Output, Urine 435 260 95 415 1600 Physical Exam: Tmax 103.8 (6pm), Tc 99 8hr shifts: JP1: 150/10/125 green bilious, fibrin JP2:100/50/100 green bilious, fibrin NGT: 300/90/10 dark green bilious UO ramon: 400+/435/260, concentrated yellow BM: OR Cx: pending. GS: many GNR, few GPC GEN: remains intubated, though alert CARD: s1s2 PULM: coarse bs throughout ABD: midline stapleline cdi, dressing w some dried bloody staining- left open to air. drain dressings cdi, WILLEM x2 bilious drainage w fibrin in bulb, both holding self suction. j-tube to gravity. no bowel sounds. EXT:ALPs on bl, feet cool bl Current Medications: Current Medications Sig/Buck Start time Last Medication Dose Route Stop Time Status Admin Acetaminophen 1,000 MG ONCE ONE 07/16 1800 DC 07/16 N/A 1 UNIT IV 07/16 1814 1756 Acetaminophen 1,000 MG Q6P PRN 07/16 0530 07/16 N/A 1 UNIT IV 0520 Ampicillin Sodium/ 3,000 MG Q8H 07/12 1800 DC 07/16 Sulbactam Sodium IV 0145 Sodium Chloride 100 ML Budesonide/ 2 PUF BID 07/09 2200 AC 07/15 Formoterol Fumarate INH 0940 Fat Emulsion 350 ML 1900 07/16 1900 AC 07/16 Intravenous IV 07/17 1859 2007 Fat Emulsion 500 ML Q24H 07/15 1900 DC 07/15 Intravenous IV 07/16 1859 1957 Fentanyl Citrate 1,000 MCG Q10H 07/16 2200 AC 07/16 Dextrose/Water 250 ML IV 2231 Fentanyl Citrate 1,000 MCG Q24H 07/16 1130 DC 07/16 Dextrose/Water 250 ML IV 1202 Fentanyl Citrate 1,000 MCG Q24H 07/16 1045 DC 07/16 Dextrose/Water 250 ML IV 1115 Fentanyl Citrate 1,000 MCG Q24H 07/16 0500 DC Dextrose/Water 250 ML IV Fluconazole 400 MG DAILY 07/16 1000 AC 07/16 Sodium Chloride 200 ML IV 1114 Heparin Sodium 5,000 UNIT Q8 07/10 0138 AC 07/17 (Porcine) SC 0516 Hydrocortisone 50 MG Q8 07/16 1400 AC 07/17 Sodium Succinate IV 0516 Hydrocortisone 100 MG ONE ONE 07/16 0545 DC 07/16 Sodium Succinate IV 07/16 0546 0549 Insulin Aspart 15 UNITS ONCE ONE 07/16 1200 DC 07/16 SC 07/16 1201 1201 Insulin Human Regular 100 UNIT Q14H 07/17 0200 DC Sodium Chloride 100 ML IV Insulin Human Regular 100 UNIT Q10H 07/17 0000 DC Sodium Chloride 100 ML IV Insulin Human Regular 100 UNIT Q11H 07/17 0000 DC Sodium Chloride 100 ML IV Insulin Human Regular 100 UNIT Q10H 07/17 0000 AC 07/16 Sodium Chloride 100 ML IV 2317 Insulin Human Regular 100 UNIT Q24H 07/16 1200 DC 07/16 Sodium Chloride 100 ML IV 07/16 2359 1314 Insulin Human Regular 0 Q6 07/16 0129 DC 07/16 OK 0532 Magnesium Sulfate 1 GM Q2H 07/16 0700 DC 07/16 Dextrose/Water 100 ML IV 07/16 1059 0858 Magnesium Sulfate 1 GM ONCE ONE 07/16 0330 DC 07/16 Dextrose/Water 100 ML IV 07/16 0729 0343 Meropenem 1 GM Q8H 07/16 0200 07/17 IV 0158 Metronidazole 500 MG Q6H 07/16 0200 DC 07/16 N/A 1 UNIT IV 0722 Morphine Sulfate 2 MG Q4P PRN 07/14 1145 07/16 IV 0404 Norepinephrine 4 MG Q3H 07/16 1530 07/17 Sodium Chloride 250 ML IV 0315 Norepinephrine 4 MG Q24H 07/16 0130 DC 07/16 Sodium Chloride 250 ML IV 07/16 1529 0523 Octreotide Acetate 500 MCG Q20H 07/15 1400 AC 07/16 Dextrose/Water 500 ML IV 1114 Pantoprazole Sodium 40 MG BID 07/10 1016 07/16 IV 2238 Phenylephrine HCl 40 MG Q3H 07/16 1430 AC 07/17 Sodium Chloride 250 ML IV 0512 Phenylephrine HCl 40 MG Q24H 07/16 0245 DC 07/16 Sodium Chloride 250 ML IV 07/16 1429 0242 Potassium Chloride 20 MEQ Q8H 07/12 0930 DC 07/16 Dextrose/Sodium 1,000 ML IV 0529 Chloride Sodium Bicarbonate 50 MEQ Q20H 07/16 0900 DC 07/16 Dextrose/Sodium 1,000 ML IV 1000 Chloride Sodium Bicarbonate 75 MEQ CONTINOUS INFUSION 07/16 0630 CAN Dextrose/Sodium 1,000 ML IV Chloride Sodium Chloride 1,000 ML BOLUS ONE 07/16 0545 DC 07/16 IV 07/16 0644 0654 Sodium Chloride 500 ML BOLUS ONE 07/16 0530 DC 07/16 IV 07/16 0629 0617 Sodium Chloride 1,000 ML BOLUS ONE 07/160 DC 07/16 IV 07/16 0559 0509 Total Parenteral 1 UNIT 1900 07/16 1900 AC 07/16 Nutrition IV 07/17 Total Parenteral 1 UNIT Q24H 07/15 190 DC 07/15 Nutrition IV 07/16 Vancomycin HCl 1,500 MG DAILY 07/16 1000 AC 07/16 Sodium Chloride 250 ML IV 1203 Vasopressin 40 UNITS Q16H 07/16 0500 DC 07/16 Sodium Chloride 100 ML IV 2304 Results Last 48 Hours of Labs: Laboratory Tests 07/1730 0415 0415 Blood Gas pH (7.35 - 7.45 PH) 7.33 L pCO2 (35 - 45 TORR) 30 L pO2 (80 - 100 TORR) 109 H HCO3 (21 - 28 MEQ/L) 16 L ABG O2 Sat (Measured) (>96.0 %) 97.0 P-50 (Temp Corrected) Y Carboxyhemoglobin (1.5 - 5.0 %) 0.3 L O2 Concentration % 60% Temperature (97.0 - 100.0 FARH) 99.1 Respiration Rate (BPM) 20 O2 Delivery Method ESPRIT Vent Mode AC Expiratory Pressure (CMH2O/P) 5 Tidal Volume (CC) 600 Chemistry Sodium (137 - 145 mmol/L) 140 Potassium (3.5 - 5.1 mmol/L) 4.4 Chloride (98 - 107 mmol/L) 112 H Carbon Dioxide (22 - 30 mmol/L) 17 L Anion Gap (5 - 16) 11 BUN (9 - 20 mg/dL) 37 H Creatinine (0.7 - 1.2 mg/dL) 1.6 H Glucose (65 - 99 mg/dL) 209 H Lactic Acid (0.7 - 2.1 mmol/L) 3.4 H Calcium (8.4 - 10.2 mg/dL) 7.4 L Phosphorus (2.5 - 4.5 mg/dL) 4.5 Magnesium (1.6 - 2.3 mg/dL) 2.5 H Total Bilirubin (0.2 - 1.3 mg/dL) 0.6 AST (17 - 59 U/L) 43 ALT (21 - 72 U/L) 31 Albumin (3.5 - 5.0 g/dL) 1.5 L Hematology CBC w Diff MAN DIFF ORDERED WBC (4.8 - 10.8 /CUMM) 45.0 *H RBC (4.70 - 6.10 /CUMM) 4.06 L Hgb (14.0 - 18.0 G/DL) 11.6 L Hct (42 - 52 %) 35.7 L MCV (80.0 - 94.0 FL) 87.7 MCH (27.0 - 31.0 PG) 28.4 RDW (11.5 - 14.5 %) 17.3 H Plt Count (130 - 400 /CUMM) 313 MPV (7.4 - 10.4 FL) 8.8 Gran % (42.2 - 75.2 %) 86.1 H Lymphocytes % (20.5 - 51.1 %) 13.4 L Monocytes % (1.7 - 9.3 %) 0.4 L Eosinophils % (0 - 5 %) 0 Basophils % (0.0 - 2.0 %) 0.1 Absolute Granulocytes (1.4 - 6.5 /CUMM) 38.7 H Segmented Neutrophils (42.2 - 75.2 %) 75 Band Neutrophils (0.0 - 5.0 %) 11 H Absolute Lymphocytes (1.2 - 3.4 /CUMM) 6.0 H Lymphocytes (20.5 - 51.1 %) 11 L Monocytes (1.7 - 9.3 %) 3 Absolute Monocytes (0.10 - 0.60 /CUMM) 0.2 Absolute Eosinophils (0.0 - 0.7 /CUMM) 0 Absolute Basophils (0.0 - 0.2 /CUMM) 0 Nucleated RBCs (0.0 - 0.0 /100WBC) 1 H Platelet Estimate (ADEQUATE) ADEQUATE Hypochromic-Microcytic 1+ Anisocytosis 1+ PUBS MCHC (33.0 - 37.0 G/DL) 32.4 L Miscellaneous Phlebotomy Draw Site LEFT RADIAL 07/16 1540 Chemistry Sodium (137 - 145 mmol/L) 141 Potassium (3.5 - 5.1 mmol/L) 5.1 Chloride (98 - 107 mmol/L) 114 H Carbon Dioxide (22 - 30 mmol/L) 16 L Anion Gap (5 - 16) 11 BUN (9 - 20 mg/dL) 33 H Creatinine (0.7 - 1.2 mg/dL) 1.7 H Estimated GFR (>60 ml/min) 39 L Glucose (65 - 99 mg/dL) 236 H Lactic Acid (0.7 - 2.1 mmol/L) 3.7 H Calcium (8.4 - 10.2 mg/dL) 7.0 L Phosphorus (2.5 - 4.5 mg/dL) 4.0 Magnesium (1.6 - 2.3 mg/dL) 2.0 Total Bilirubin (0.2 - 1.3 mg/dL) 0.9 AST (17 - 59 U/L) 47 ALT (21 - 72 U/L) 36 Albumin (3.5 - 5.0 g/dL) 1.5 L Hematology CBC w Diff MAN DIFF ORDERED WBC (4.8 - 10.8 /CUMM) 46.0 *H RBC (4.70 - 6.10 /CUMM) 4.27 L Hgb (14.0 - 18.0 G/DL) 12.1 L Hct (42 - 52 %) 37.6 L MCV (80.0 - 94.0 FL) 87.9 MCH (27.0 - 31.0 PG) 28.3 RDW (11.5 - 14.5 %) 17.5 H Plt Count (130 - 400 /CUMM) 348 MPV (7.4 - 10.4 FL) 9.1 Gran % (42.2 - 75.2 %) 84.6 H Lymphocytes % (20.5 - 51.1 %) 13.0 L Monocytes % (1.7 - 9.3 %) 2.1 Eosinophils % (0 - 5 %) 0.1 Basophils % (0.0 - 2.0 %) 0.2 Absolute Granulocytes (1.4 - 6.5 /CUMM) 38.9 H Segmented Neutrophils (42.2 - 75.2 %) 48 Band Neutrophils (0.0 - 5.0 %) 29 H Absolute Lymphocytes (1.2 - 3.4 /CUMM) 6.0 H Lymphocytes (20.5 - 51.1 %) 17 L Monocytes (1.7 - 9.3 %) 3 Absolute Monocytes (0.10 - 0.60 /CUMM) 1.0 H Absolute Eosinophils (0.0 - 0.7 /CUMM) 0 Absolute Basophils (0.0 - 0.2 /CUMM) 0.1 Metamyelocytes (0.0 - 1.0 %) 2 H Myelocytes (0 - 0 %) 1 H Platelet Estimate (ADEQUATE) ADEQUATE Anisocytosis 1+ PUBS MCHC (33.0 - 37.0 G/DL) 32.2 L Urines Urine Color (YEL,AMB,STR) GREEN H Urine Clarity (CLEAR) HAZY H Urine pH (5.0 - 8.0) 5.5 Ur Specific [place] (1.001 - 1.035) 1.025 Urine Protein (NEG,<30 MG/DL) 30 H Urine Ketones (NEG) NEG Urine Nitrite (NEG) NEG Urine Bilirubin (NEG) NEG@ICTO Urine Urobilinogen (0.1 - 1.0 EU/dl) 0.2 Ur Leukocyte Esterase (NEG) NEG Ur Microscopic SEDIMENT EXAMINED Urine RBC (0 - 5 /HPF) 15-25 H Urine WBC (0 - 2 /HPF) 3-5 H Ur Epithelial Cells (NONE,FEW) FEW Urine Bacteria (NEG/NONE) FEW H Granular Casts (NONE /LPF) RARE H Urine Hemoglobin (NEG) LARGE H Urine Glucose (N MG/DL) 100 H 07/16 07/16 07/16 1510 1445 0856 Blood Gas pH (7.35 - 7.45 PH) 7.30 *L pCO2 (35 - 45 TORR) 28 L pO2 (80 - 100 TORR) 76 L HCO3 (21 - 28 MEQ/L) 14 L ABG O2 Sat (Measured) (>96.0 %) 93.0 L P-50 (Temp Corrected) N Carboxyhemoglobin (1.5 - 5.0 %) 0.3 L O2 Concentration % 60% Respiration Rate (BPM) 20 O2 Delivery Method VENT Vent Mode AC Expiratory Pressure (CMH2O/P) 5 Tidal Volume (CC) 600 Pressure Support (CMH2O/P) 0 Chemistry Sodium (137 - 145 mmol/L) 141 Potassium (3.5 - 5.1 mmol/L) 5.6 H Chloride (98 - 107 mmol/L) 112 H Carbon Dioxide (22 - 30 mmol/L) 16 L Anion Gap (5 - 16) 13 BUN (9 - 20 mg/dL) 30 H Creatinine (0.7 - 1.2 mg/dL) 1.8 H Estimated GFR (>60 ml/min) 37 L Glucose (65 - 99 mg/dL) 319 H Lactic Acid (0.7 - 2.1 mmol/L) 4.9 H 4.8 H Calcium (8.4 - 10.2 mg/dL) 6.9 L Phosphorus (2.5 - 4.5 mg/dL) 4.4 Magnesium (1.6 - 2.3 mg/dL) 2.0 Total Bilirubin (0.2 - 1.3 mg/dL) 0.7 AST (17 - 59 U/L) 42 ALT (21 - 72 U/L) 37 Albumin (3.5 - 5.0 g/dL) 1.6 L Miscellaneous Phlebotomy Draw Site LEFT RADIAL 07/16 07/16 07/16 0856 0634 0579 Chemistry Sodium (137 - 145 mmol/L) 142 Potassium (3.5 - 5.1 mmol/L) 4.6 Chloride (98 - 107 mmol/L) 113 H Carbon Dioxide (22 - 30 mmol/L) 16 L Anion Gap (5 - 16) 13 BUN (9 - 20 mg/dL) 26 H Creatinine (0.7 - 1.2 mg/dL) 1.6 H Estimated GFR (>60 ml/min) 42 L BUN/Creatinine Ratio (7 - 25 %) 16.3 Glucose (65 - 99 mg/dL) 300 H Lactic Acid (0.7 - 2.1 mmol/L) 4.6 H Calcium (8.4 - 10.2 mg/dL) 6.8 L Phosphorus (2.5 - 4.5 mg/dL) 3.5 Magnesium (1.6 - 2.3 mg/dL) 1.8 Total Bilirubin (0.2 - 1.3 mg/dL) 0.9 AST (17 - 59 U/L) 31 ALT (21 - 72 U/L) 35 Albumin (3.5 - 5.0 g/dL) 1.5 L Cortisol AM Sample Cancelled Hematology CBC w Diff MAN DIFF ORDERED WBC (4.8 - 10.8 /CUMM) 48.3 *H RBC (4.70 - 6.10 /CUMM) 4.51 L Hgb (14.0 - 18.0 G/DL) 12.9 L Hct (42 - 52 %) 39.6 L MCV (80.0 - 94.0 FL) 87.8 MCH (27.0 - 31.0 PG) 28.7 RDW (11.5 - 14.5 %) 17.2 H Plt Count (130 - 400 /CUMM) 354 MPV (7.4 - 10.4 FL) 8.5 Gran % (42.2 - 75.2 %) 98.5 H Lymphocytes % (20.5 - 51.1 %) 1.2 L Monocytes % (1.7 - 9.3 %) 0.1 L Eosinophils % (0 - 5 %) 0.2 Basophils % (0.0 - 2.0 %) 0 Absolute Granulocytes (1.4 - 6.5 /CUMM) 47.6 H Segmented Neutrophils (42.2 - 75.2 %) 56 Band Neutrophils (0.0 - 5.0 %) 37 H Absolute Lymphocytes (1.2 - 3.4 /CUMM) 0.6 L Lymphocytes (20.5 - 51.1 %) 3 L Monocytes (1.7 - 9.3 %) 1 L Absolute Monocytes (0.10 - 0.60 /CUMM) 0.1 Absolute Eosinophils (0.0 - 0.7 /CUMM) 0.1 Absolute Basophils (0.0 - 0.2 /CUMM) 0 Metamyelocytes (0.0 - 1.0 %) 3 H Nucleated RBCs (0.0 - 0.0 /100WBC) 1 H Poikilocytosis 1+ Anisocytosis 2+ PUBS MCHC (33.0 - 37.0 G/DL) 32.6 L 07/16 07/16 0545 0317 Chemistry Sodium (137 - 145 mmol/L) 140 Potassium (3.5 - 5.1 mmol/L) 4.4 Chloride (98 - 107 mmol/L) 112 H Carbon Dioxide (22 - 30 mmol/L) 15 L Anion Gap (5 - 16) 13 BUN (9 - 20 mg/dL) 25 H Creatinine (0.7 - 1.2 mg/dL) 1.6 H Estimated GFR (>60 ml/min) 42 L BUN/Creatinine Ratio (7 - 25 %) 15.6 Glucose (65 - 99 mg/dL) 296 H Lactic Acid Cancelled Calcium (8.4 - 10.2 mg/dL) 6.8 L Phosphorus (2.5 - 4.5 mg/dL) 3.7 Magnesium (1.6 - 2.3 mg/dL) 1.6 Total Bilirubin (0.2 - 1.3 mg/dL) 0.8 AST (17 - 59 U/L) 25 ALT (21 - 72 U/L) 33 Albumin (3.5 - 5.0 g/dL) 1.5 L Cortisol AM Sample (4.46 - 22.7 ug/dL) 24.8 H Hematology CBC w Diff MAN DIFF ORDERED WBC (4.8 - 10.8 /CUMM) 39.9 *H RBC (4.70 - 6.10 /CUMM) 4.41 L Hgb (14.0 - 18.0 G/DL) 12.6 L Hct (42 - 52 %) 38.3 L MCV (80.0 - 94.0 FL) 87.0 MCH (27.0 - 31.0 PG) 28.5 RDW (11.5 - 14.5 %) 16.9 H Plt Count (130 - 400 /CUMM) 342 MPV (7.4 - 10.4 FL) 8.4 Gran % (42.2 - 75.2 %) 98.0 H Lymphocytes % (20.5 - 51.1 %) 1.6 L Monocytes % (1.7 - 9.3 %) 0.2 L Eosinophils % (0 - 5 %) 0.2 Basophils % (0.0 - 2.0 %) 0 Absolute Granulocytes (1.4 - 6.5 /CUMM) 39.1 H Segmented Neutrophils (42.2 - 75.2 %) 59 Band Neutrophils (0.0 - 5.0 %) 32 H Absolute Lymphocytes (1.2 - 3.4 /CUMM) 0.7 L Lymphocytes (20.5 - 51.1 %) 7 L Monocytes (1.7 - 9.3 %) 1 L Absolute Monocytes (0.10 - 0.60 /CUMM) 0.1 Absolute Eosinophils (0.0 - 0.7 /CUMM) 0.1 Absolute Basophils (0.0 - 0.2 /CUMM) 0 Metamyelocytes (0.0 - 1.0 %) 1 Nucleated RBCs (0.0 - 0.0 /100WBC) 1 H Platelet Estimate (ADEQUATE) ADEQUATE Anisocytosis 1+ PUBS MCHC (33.0 - 37.0 G/DL) 32.8 L Other Body Source Fld Total RBCs Counted (%) 100 07/16 07/16 0300 0140 Blood Gas pH (7.35 - 7.45 PH) 7.28 *L pCO2 (35 - 45 TORR) 36 pO2 (80 - 100 TORR) 76 L HCO3 (21 - 28 MEQ/L) 16 L ABG O2 Sat (Measured) (>96.0 %) 93.0 L P-50 (Temp Corrected) N Carboxyhemoglobin (1.5 - 5.0 %) 0.2 L O2 Concentration % .50 Respiration Rate (BPM) 20 O2 Delivery Method VENT Vent Mode A/C Expiratory Pressure (CMH2O/P) 5 Tidal Volume (CC) 600 Chemistry Sodium (137 - 145 mmol/L) 139 Potassium (3.5 - 5.1 mmol/L) 4.7 Chloride (98 - 107 mmol/L) 109 H Carbon Dioxide (22 - 30 mmol/L) 18 L Anion Gap (5 - 16) 12 BUN (9 - 20 mg/dL) 22 H Creatinine (0.7 - 1.2 mg/dL) 1.6 H Estimated GFR (>60 ml/min) 42 L Glucose (65 - 99 mg/dL) 295 H Lactic Acid (0.7 - 2.1 mmol/L) 4.0 H Calcium (8.4 - 10.2 mg/dL) 7.4 L Phosphorus (2.5 - 4.5 mg/dL) 5.2 H Magnesium (1.6 - 2.3 mg/dL) 1.5 L Total Bilirubin (0.2 - 1.3 mg/dL) 0.7 AST (17 - 59 U/L) 29 ALT (21 - 72 U/L) 34 Troponin I (<0.11 ng/ml) 0.01 Albumin (3.5 - 5.0 g/dL) 1.9 L Coagulation PT (9.4 - 12.5 SEC) 14.5 H INR (0.90 - 1.17) 1.39 H APTT (25 - 37 SEC) 34 Hematology CBC w Diff MAN DIFF ORDERED WBC (4.8 - 10.8 /CUMM) 34.7 *H RBC (4.70 - 6.10 /CUMM) 4.70 Hgb (14.0 - 18.0 G/DL) 13.5 L Hct (42 - 52 %) 41.0 L MCV (80.0 - 94.0 FL) 87.1 MCH (27.0 - 31.0 PG) 28.8 RDW (11.5 - 14.5 %) 16.3 H Plt Count (130 - 400 /CUMM) 353 MPV (7.4 - 10.4 FL) 8.5 Segmented Neutrophils (42.2 - 75.2 %) 69 Band Neutrophils (0.0 - 5.0 %) 17 H Lymphocytes (20.5 - 51.1 %) 10 L Metamyelocytes (0.0 - 1.0 %) 4 H Nucleated RBCs (0.0 - 0.0 /100WBC) 1 H Platelet Estimate (ADEQUATE) ADEQUATE Anisocytosis 1+ PUBS MCHC (33.0 - 37.0 G/DL) 33.0 Miscellaneous Phlebotomy Draw Site LEFT BRACHIAL Other Body Source Fld Total RBCs Counted (%) 100 07/16 07/15 07/15 0128 2100 1735 Chemistry Sodium (137 - 145 mmol/L) Cancelled 142 Potassium (3.5 - 5.1 mmol/L) Cancelled 4.3 Chloride (98 - 107 mmol/L) Cancelled 108 H Carbon Dioxide (22 - 30 mmol/L) Cancelled 21 L Anion Gap (5 - 16) Cancelled 12 BUN (9 - 20 mg/dL) Cancelled 16 Creatinine (0.7 - 1.2 mg/dL) Cancelled 0.9 Estimated GFR (>60 ml/min) > 60 BUN/Creatinine Ratio Cancelled Glucose (65 - 99 mg/dL) 258 H Lactic Acid (0.7 - 2.1 mmol/L) Cancelled 3.3 H 3.5 H Calcium (8.4 - 10.2 mg/dL) 7.7 L Phosphorus (2.5 - 4.5 mg/dL) 2.7 Magnesium (1.6 - 2.3 mg/dL) 1.5 L Total Bilirubin (0.2 - 1.3 mg/dL) 0.7 AST (17 - 59 U/L) 33 ALT (21 - 72 U/L) 36 Troponin I Cancelled Albumin (3.5 - 5.0 g/dL) 2.3 L Coagulation PT (9.4 - 12.5 SEC) 13.5 H INR (0.90 - 1.17) 1.29 H APTT (25 - 37 SEC) 31 Hematology CBC w Diff MAN DIFF ORDERED WBC (4.8 - 10.8 /CUMM) 27.6 H RBC (4.70 - 6.10 /CUMM) 4.70 Hgb (14.0 - 18.0 G/DL) 13.2 L Hct (42 - 52 %) 40.7 L MCV (80.0 - 94.0 FL) 86.5 MCH (27.0 - 31.0 PG) 28.1 RDW (11.5 - 14.5 %) 16.7 H Plt Count (130 - 400 /CUMM) 350 MPV (7.4 - 10.4 FL) 9.1 Gran % (42.2 - 75.2 %) 76.0 H Lymphocytes % (20.5 - 51.1 %) 21.5 Monocytes % (1.7 - 9.3 %) 1.9 Eosinophils % (0 - 5 %) 0.5 Basophils % (0.0 - 2.0 %) 0.1 Absolute Granulocytes (1.4 - 6.5 /CUMM) 21.0 H Segmented Neutrophils (42.2 - 75.2 %) 70 Band Neutrophils (0.0 - 5.0 %) 12 H Absolute Lymphocytes (1.2 - 3.4 /CUMM) 5.9 H Lymphocytes (20.5 - 51.1 %) 11 L Monocytes (1.7 - 9.3 %) 3 Absolute Monocytes (0.10 - 0.60 /CUMM) 0.5 Eosinophils (0 - 5.0 %) 2 Absolute Eosinophils (0.0 - 0.7 /CUMM) 0.1 Absolute Basophils (0.0 - 0.2 /CUMM) 0 Metamyelocytes (0.0 - 1.0 %) 1 Myelocytes (0 - 0 %) 1 H Platelet Estimate (ADEQUATE) VERIFIED BY SMEAR Normocytic RBCs VERIFIED Normochromic RBCs VERIFIED PUBS MCHC (33.0 - 37.0 G/DL) 32.5 L Other Body Source Fld Total RBCs Counted (%) 100 07/15 1720 Blood Gas pH (7.35 - 7.45 PH) 7.49 H pCO2 (35 - 45 TORR) 23 L pO2 (80 - 100 TORR) 75 L HCO3 (21 - 28 MEQ/L) 17 L ABG O2 Sat (Measured) (>96.0 %) 95.0 L P-50 (Temp Corrected) N Carboxyhemoglobin (1.5 - 5.0 %) 0.4 L O2 Concentration % 50% Temperature (97.0 - 100.0 FARH) 98.4 O2 Delivery Method VM Miscellaneous Phlebotomy Draw Site LEFT RADIAL Assessment/Plan Assessment/Plan A- 76yoM POD2 sp ex lap, primary closure and tono patch of perf'ed duo ulcer, POD10 sp initial ex lap w tono patch, febrile to 103.8 12h ago now 99, on TPN , angie and levo with marginal SBP, octreotide gtt, insulin gtt, and fentanyl gtt, remains in guarded condition in ICU. P- Cont TPN, NPO strict I&Os JPs to self suction DVT ppx- hep sq fu OR cx, abx per ID medical care per critical care team and consultants will dw attending Core Measures Venous Thromboembolism VTE Risk Factors Acute Medical Illness No Mechanical VTE Prophylaxis d/t Physical Contraindication No VTE Pharm Prophylaxis d/t NA PharmProphylax ordered
--- NOTE | 2017-07-17 07:21 | RADIOLOGY REPORT ---
EXAMINATION: XR PORTABLE CHEST CLINICAL INFORMATION: Sepsis on ventilator. COMPARISON: Chest portable 07/16/2017 at 8:05 AM. TECHNIQUE: Portable frontal view of the chest was obtained. FINDINGS: The lungs are slightly hypoventilated bibasilar hazy opacities more so on the left. The upper lungs are relatively clear. The solitary pacer electrode in the right ventricle. The heart size enlarged. Tip of endotracheal tube is approximately 3.9 cm above the kika. IMPRESSION: Hypoventilated lungs with bibasilar haziness probably effusions and/or atelectasis. Mild cardiomegaly. Stable endotracheal tube and a solitary pacer electrode.
[2017-07-17 08:00] VITALS: BP 102/60
--- NOTE | 2017-07-17 10:52 | PN- Resident CRCU ---
Subjective HPI/CRCU Issues: Septic shock 2/2 perforated duodenal ulcer Lactic acidosis HFrEF with AICD 25% 24 Hour Events: Overnight pt had 8 beat of NSVT. Came off vasopressin, Tmax 103.8 yesterday evening. Lactic acid came down from 3.4--> 2.7. Objective Vital Signs & I&O Last 8 Hrs of Vitals and I&O: MAXIMUM TEMPERATURE 103.7, blood pressure between 87/53 and 102/60, heart rate 69, saturating 97%. ABG: PH 7.33, bicarbonate 16, PCO2 30. Exam General Appearance: intubated, lethargic Head: atraumatic Neck: supple Cardiovascular: extra beats Gastrointestinal: abdominal drain with serosanguineous fluid. Bandage in place about 2 inches below umbilicus. Abdomen tense. Extremities: pedal edema Weaning Parameters NIF: 21 Minute Volume: 11.5 Resp rate: 22 Vt: 478 Heart Rate: 76 Weaning Schedule Start Time: 0909 Minute Volume: 12.3 Resp Rate: 25 Vt: 594 Heart Rate: 76 End Time: 1210 Minute Volume: 11.8 Resp Rate: 22 Vt: 604 Heart Rate: 69 Current Medications: Current Medications Sig/Buck Start time Last Medication Dose Route Stop Time Status Admin Acetaminophen 1,000 MG ONCE ONE 07/16 1800 DC 07/16 N/A 1 UNIT IV 07/16 1814 1756 Acetaminophen 1,000 MG Q6P PRN 07/16 0530 07/16 N/A 1 UNIT IV 0520 Budesonide/ 2 PUF BID 07/09 2200 07/15 Formoterol Fumarate INH 0940 Fat Emulsion 350 ML 1900 07/16 190 07/16 Intravenous IV 07/17 185 2007 Fat Emulsion 500 ML Q24H 07/15 1900 RI 07/15 Intravenous IV 07/16 185 1957 Fentanyl Citrate 1,000 MCG Q10H 07/16 2200 07/17 Dextrose/Water 250 ML IV 0817 Fentanyl Citrate 1,000 MCG Q24H 07/16 1130 DC 07/16 Dextrose/Water 250 ML IV 1202 Fentanyl Citrate 1,000 MCG Q24H 07/16 1045 RI 07/16 Dextrose/Water 250 ML IV 1115 Fentanyl Citrate 1,000 MCG Q24H 07/16 0500 DC Dextrose/Water 250 ML IV Fluconazole 400 MG DAILY 07/16 1000 AC 07/17 Sodium Chloride 200 ML IV 0929 Heparin Sodium 5,000 UNIT Q8 07/10 0138 AC 07/17 (Porcine) SC 0516 Hydrocortisone 50 MG Q8 07/16 1400 AC 07/17 Sodium Succinate IV 0516 Insulin Aspart 15 UNITS ONCE ONE 07/16 1200 DC 07/16 TN 07/16 1201 1201 Insulin Human Regular 100 UNIT Q12H 07/17 1000 07/17 Sodium Chloride 100 ML IV 1117 Insulin Human Regular 100 UNIT Q14H 07/17 0200 DC Sodium Chloride 100 ML IV Insulin Human Regular 100 UNIT Q10H 07/17 0000 DC Sodium Chloride 100 ML IV Insulin Human Regular 100 UNIT Q11H 07/17 0000 DC Sodium Chloride 100 ML IV Insulin Human Regular 100 UNIT Q10H 07/17 0000 DC 07/16 Sodium Chloride 100 ML IV 07/17 0959 2317 Insulin Human Regular 100 UNIT Q24H 07/16 1200 DC 07/16 Sodium Chloride 100 ML IV 07/16 2359 1314 Insulin Human Regular 0 Q6 07/16 0129 DC 07/16 TN 0532 Meropenem 1 GM Q8H 07/16 0200 07/17 IV 0929 Morphine Sulfate 2 MG Q4P PRN 07/14 1145 AC 07/16 IV 0404 Norepinephrine 4 MG Q5H 07/17 1300 AC Sodium Chloride 250 ML IV Norepinephrine 4 MG Q3H 07/16 1530 07/17 Sodium Chloride 250 ML IV 07/17 1259 0929 Norepinephrine 4 MG Q24H 07/16 0130 DC 07/16 Sodium Chloride 250 ML IV 07/16 1529 0523 Octreotide Acetate 500 MCG Q20H 07/15 1400 07/17 Dextrose/Water 500 ML IV 0816 Pantoprazole Sodium 40 MG BID 07/10 1016 07/17 IV 0929 Phenylephrine HCl 40 MG Q3H 07/16 1430 07/17 Sodium Chloride 250 ML IV 0817 Phenylephrine HCl 40 MG Q24H 07/16 0245 DC 07/16 Sodium Chloride 250 ML IV 07/16 1429 0242 Sodium Bicarbonate 50 MEQ Q20H 07/16 0900 DC 07/16 Dextrose/Sodium 1,000 ML IV 1000 Chloride Total Parenteral 1 UNIT 1900 07/16 1900 AC 07/16 Nutrition IV 07/17 1852006 Total Parenteral 1 UNIT Q24H 07/15 1900 DC 07/15 Nutrition IV 07/16 1851955 Vancomycin HCl 1,500 MG DAILY 07/16 1000 AC 07/17 Sodium Chloride 250 ML IV 1117 Vasopressin 40 UNITS Q16H 07/16 0500 DC 07/16 Sodium Chloride 100 ML IV 2304 Impression/Plan Impression/Problem List Impression: This is a 76-year-old male with past medical history of CAD with HFrEF, A. fib, AICD, previous infection of the hip with prolonged antibiotic, history of peptic ulcer disease, diabetes, nephrolithiasis who was transferred to the ICU for perforation of the duodenum with septic shock S/P repair with patch. Repeated CT of the abdomen performed on 07/15 revealed free air/extravasation of contrast into the peritoneal cavity and he was taken to the OR for ex-lap and had re- repair of duodenal ulcer with Fabrizio patch. PLAN #Septic shock secondary to perforated duodenal ulcer A/P Fabrizio patch: * Continue vancomycin, fluconazole and meropenem. Got called from lab today patient walked culture growing GNR and GPC. We'll follow-up for speciation and susceptibility. On 07/17/2017 white count 45.0. * Follow-up on pending repeat culture results * Lactic acid trending down. This a.m. 3.4 down to 2.7 * Continue on Levophed drip at 14 g per hour * Continue on fentanyl * Continue Solu-Cortef 50 mg IV every 8 * Continue Protonix IV 14 mg twice a day * Continue octreotide drip * Continue phenylephrine, titrate as allowed * Surgery following #USMAN: It should seems to have baseline creatinine of 1. Today at 1.6. BUN 37. NO anion gap present. The renal injury is most likely secondary to ATN due to decreased renal perfusion from septic shock. Additionally, patient has had administration of IV contrast. ABG today shows pH 7.33, bicarbonate 16, PCO2 30. Upon calculation it seems like he has a non-anion gap metabolic acidosis with a concurrent and an independent respiratory alkalosis. * Proceed with workup for non-anion gap metabolic acidosis. We will obtain urine sodium, urine potassium and urine chloride evaluation of GI versus renal source * Serial monitoring of labs and ABG * Appreciate nephrology recommendation * Titrate vent * Pt has total Ins since admission = 50,989 and total outs 31,800. He is net + 20,000 L. Needs diuresis; will initiate BP allowing. #DM: * We will add insulin 50 units to TPN * Start insulin drip and monitor FSG every 1 hour (10u/hr currently) * Goal glucose between [id number] and exam * Appreciate endocrinology recommendation Arrhythmia: Had 8 beat run of vtach last night. Per previous notes it seems like pt has AICD. His rhythm looks changed this morning as he is having many more paced complexes. * Appreciate cardiology recommendation History of PAF on Tikosyn * Continue to hold the Tikosyn * Appreciate cardiology recomm Guarded prognosis Full code Nothing by mouth DVT prophylaxis with subcutaneous heparin Problem List: 1. Leucocytosis 2. Sepsis Pain Ratin Tomorrow's Labs & Rationales: cbc bep Plan DVT/Prophylaxis: mechanical, pharmacological
--- NOTE | 2017-07-17 10:59 | PN- CRCU ---
Subjective HPI/Critical Care Issues: Patient remains critically ill on pressors is requiring cooling blanket for temperature spike of 103.8. Body fluid cultures are growing GPC's and gram- negative rods identification pending. Objective Current Medications: Current Medications Sig/Buck Start time Last Medication Dose Route Stop Time Status Admin Acetaminophen 1,000 MG ONCE ONE 07/16 1800 DC 07/16 N/A 1 UNIT IV 07/16 1814 1756 Acetaminophen 1,000 MG Q6P PRN 07/16 0530 AC 07/16 N/A 1 UNIT IV 0520 Budesonide/ 2 PUF BID 07/09 2200 AC 07/15 Formoterol Fumarate INH 0940 Fat Emulsion 350 ML 1900 07/16 1900 AC 07/16 Intravenous IV 07/17 1859 2006 Fat Emulsion 500 ML Q24H 07/15 1900 DC 07/15 Intravenous IV 07/16 1859 1957 Fentanyl Citrate 1,000 MCG Q10H 07/16 2200 AC 07/17 Dextrose/Water 250 ML IV 0817 Fentanyl Citrate 1,000 MCG Q24H 07/16 1130 DC 07/16 Dextrose/Water 250 ML IV 1202 Fentanyl Citrate 1,000 MCG Q24H 07/16 1045 DC 07/16 Dextrose/Water 250 ML IV 1115 Fentanyl Citrate 1,000 MCG Q24H 07/16 0500 DC Dextrose/Water 250 ML IV Fluconazole 400 MG DAILY 07/16 1000 AC 07/17 Sodium Chloride 200 ML IV 0929 Heparin Sodium 5,000 UNIT Q8 07/10 0138 AC 07/17 (Porcine) SC 0516 Hydrocortisone 50 MG Q8 07/16 1400 AC 07/17 Sodium Succinate IV 0516 Insulin Aspart 15 UNITS ONCE ONE 07/16 1200 DC 07/16 SC 07/16 1201 1201 Insulin Human Regular 100 UNIT Q12H 07/17 1000 AC Sodium Chloride 100 ML IV Insulin Human Regular 100 UNIT Q14H 07/17 0200 DC Sodium Chloride 100 ML IV Insulin Human Regular 100 UNIT Q10H 07/17 0000 DC Sodium Chloride 100 ML IV Insulin Human Regular 100 UNIT Q11H 07/17 0000 DC Sodium Chloride 100 ML IV Insulin Human Regular 100 UNIT Q10H 07/17 0000 DC 07/16 Sodium Chloride 100 ML IV 07/17 0959 2317 Insulin Human Regular 100 UNIT Q24H 07/16 1200 DC 07/16 Sodium Chloride 100 ML IV 07/16 2359 1314 Insulin Human Regular 0 Q6 07/16 0129 DC 07/16 SC 0532 Magnesium Sulfate 1 GM Q2H 07/16 0700 DC 07/16 Dextrose/Water 100 ML IV 07/16 1059 0858 Meropenem 1 GM Q8H 07/16 0200 07/17 IV 0929 Morphine Sulfate 2 MG Q4P PRN 07/14 1145 AC 07/16 IV 0404 Norepinephrine 4 MG Q5H 07/17 1300 AC Sodium Chloride 250 ML IV Norepinephrine 4 MG Q3H 07/16 1530 AC 07/17 Sodium Chloride 250 ML IV 07/17 1259 0929 Norepinephrine 4 MG Q24H 07/16 0130 DC 07/16 Sodium Chloride 250 ML IV 07/16 1529 0523 Octreotide Acetate 500 MCG Q20H 07/15 1400 AC 07/17 Dextrose/Water 500 ML IV 0816 Pantoprazole Sodium 40 MG BID 07/10 1016 AC 07/17 IV 0929 Phenylephrine HCl 40 MG Q3H 07/16 1430 AC 07/17 Sodium Chloride 250 ML IV 0817 Phenylephrine HCl 40 MG Q24H 07/16 0245 DC 07/16 Sodium Chloride 250 ML IV 07/16 1429 0242 Sodium Bicarbonate 50 MEQ Q20H 07/16 0900 DC 07/16 Dextrose/Sodium 1,000 ML IV 1000 Chloride Total Parenteral 1 UNIT 1900 07/16 1900 AC 07/16 Nutrition IV 07/17 1852006 Total Parenteral 1 UNIT Q24H 07/15 1900 DC 07/15 Nutrition IV 07/16 1851955 Vancomycin HCl 1,500 MG DAILY 07/16 1000 AC 07/16 Sodium Chloride 250 ML IV 1203 Vasopressin 40 UNITS Q16H 07/16 0500 DC 07/16 Sodium Chloride 100 ML IV 2304 Vital Signs & I&O Last 24 Hrs of Vitals and I&O: Vital Signs Date Time Temp Pulse Resp B/P B/P Pulse O2 O2 Flow FiO2 Mean Ox Delivery Rate 07/17 0929 68 97/52 07/17 0817 69 102/60 07/17 0812 60 07/17 0800 99.3 71 25 102/60 98 Ventilator 60% 07/17 0800 98 Ventilator 60% 07/17 0617 60 07/17 0444 60 07/17 0400 97 Ventilator 60% 07/17 0315 74 102/57 07/17 0227 60 07/17 0106 76 104/54 07/17 0000 99.9 75 22 114/00 97 Ventilator 60% 07/17 0000 97 Ventilator 60% 07/16 2233 60 07/16 2130 80 106/60 07/16 2021 60 07/16 2000 98 Ventilator 60% 07/16 1857 103.7 07/16 1826 8 100/50 07/16 1756 103.8 07/16 1618 92 90/50 07/16 1600 60 07/16 1600 93 Ventilator 60% 07/16 1550 97.6 96 34 112/0 93 Ventilator 60% 07/16 1430 60 07/16 1200 94 Ventilator 60% 07/16 1101 60 Intake & Output 07/17 1600 07/17 0800 07/17 0000 Intake Total 2277.0 2410.0 Output Total 965 585 Balance 1312.0 1825.0 Intake, IV 1495 1648 Intake, Lipid 117.0 113.0 Intake, 665 649 TPN/PPN Number 1 1 Bowel Movements Output, 150 150 Drainage Output, 300 Gastric Drainage Output, Urine 515 435 And saturation 60% 99% he continues on Levothroid and Jerad-Synephrine vasopressin has been able to be tapered off his urine output remains approximately 50 mL an hour exam of his chest shows diminished breath sounds cardiac exam shows regular S1 and S2 abdomen is somewhat distended and quiet. Chest x-ray is unchanged Impression/Plan Impression/Plan Impression/Plan: 76-year-old with bowel perforation now with septic shock. He remains pressor dependent though urine output remains preserved. Acidosis appears somewhat improved. Recommendations: Antibiotic adjustment as per infectious disease. Continue pressor support for blood pressure. Begin sedation with fentanyl as blood pressure tolerates. Culture sputum. Family meeting with his nephew to explain the seriousness of his condition. Patient has 2 sisters and the nephew will inform them of his status. FiO2 can be tapered would continue current respiratory rate follow-up results of body fluid culture and adjust antibiotics accordingly
--- NOTE | 2017-07-17 11:04 | PN- Diabetes ---
Assessment/Plan Assessment: 76-year-old male with Hx of CAD with low ejection fraction, atrial fibrillation, AICD, previous infection of hip with prolonged antibiotic, history of peptic ulcer disease, diabetes and renal stone, was admitted for perforation of duodenum now with septic shock in ICU. He was on 3 pressors, TPN, octreotide drip and bicarb drip. His BP remained low and stress dose of steroid was initiated despite his am cortisol was 24.8. His glucose level was in the 300s. Insulin drip was initiated. Currently he is still on 2 pressors, TPN, Hydrocortisone and octreotide drip. On 07/16/2017, 36 units of insulin was added to TPN ( 12.5% dextrose x 2100 ml/ 24 hours). He is receiving insulin drip at 8 units per hour and his FSGs were in the 200s overnight. Plan: 1. add insulin 50 units to TPN today ( 12.5% x 2100 ml/24 hours); 2. continue insulin drip; monitor FSG every one hour and totrate the insulin drip rate according to keep glucose level between 140 and 180 mg/dl. any questions, please contact me. will follow. Subjective Subjective: patient remains intubated. Objective Last 24 Hrs of Vital Signs/I&O Vital Signs Date Time Temp Pulse Resp B/P B/P Pulse O2 O2 Flow FiO2 Mean Ox Delivery Rate 07/17 0929 68 97/52 07/17 0817 69 102/60 07/17 0812 60 07/17 0800 99.3 71 25 102/60 98 Ventilator 60% 07/17 0800 98 Ventilator 60% 07/17 0617 60 07/17 0444 60 07/17 0400 97 Ventilator 60% 07/17 0315 74 102/57 07/17 0227 60 07/17 0106 76 104/54 07/17 0000 99.9 75 22 114/00 97 Ventilator 60% 07/17 0000 97 Ventilator 60% 07/16 2233 60 07/16 2130 80 106/60 07/16 2021 60 07/16 2000 98 Ventilator 60% 07/16 1857 103.7 07/16 1826 8 100/50 07/16 1756 103.8 07/16 1618 92 90/50 07/16 1600 60 07/16 1600 93 Ventilator 60% 07/16 1550 97.6 96 34 112/0 93 Ventilator 60% 07/16 1430 60 07/16 1200 94 Ventilator 60% Intake & Output 07/17 1600 07/17 0800 07/17 0000 Intake Total 2277.0 2410.0 Output Total 965 585 Balance 1312.0 1825.0 Intake, IV 1495 1648 Intake, Lipid 117.0 113.0 Intake, 665 649 TPN/PPN Number 1 1 Bowel Movements Output, 150 150 Drainage Output, 300 Gastric Drainage Output, Urine 515 435 Findings Pertinent Lab/Les Results: Laboratory Tests 07/17 07/17 07/17 0700 0530 0415 Blood Gas pH (7.35 - 7.45 PH) 7.33 L pCO2 (35 - 45 TORR) 30 L pO2 (80 - 100 TORR) 109 H HCO3 (21 - 28 MEQ/L) 16 L ABG O2 Sat (Measured) (>96.0 %) 97.0 P-50 (Temp Corrected) Y Carboxyhemoglobin (1.5 - 5.0 %) 0.3 L O2 Concentration % 60% Temperature (97.0 - 100.0 FARH) 99.1 Respiration Rate (BPM) 20 O2 Delivery Method ESPRIT Vent Mode AC Expiratory Pressure (CMH2O/P) 5 Tidal Volume (CC) 600 Chemistry Lactic Acid (0.7 - 2.1 mmol/L) 2.7 H 3.4 H Miscellaneous Phlebotomy Draw Site LEFT RADIAL 07/17 Chemistry Sodium (137 - 145 mmol/L) 140 141 Potassium (3.5 - 5.1 mmol/L) 4.4 5.1 Chloride (98 - 107 mmol/L) 112 H 114 H Carbon Dioxide (22 - 30 mmol/L) 17 L 16 L Anion Gap (5 - 16) 11 11 BUN (9 - 20 mg/dL) 37 H 33 H Creatinine (0.7 - 1.2 mg/dL) 1.6 H 1.7 H Estimated GFR (>60 ml/min) 39 L Glucose (65 - 99 mg/dL) 209 H 236 H Lactic Acid (0.7 - 2.1 mmol/L) 3.7 H Calcium (8.4 - 10.2 mg/dL) 7.4 L 7.0 L Phosphorus (2.5 - 4.5 mg/dL) 4.5 4.0 Magnesium (1.6 - 2.3 mg/dL) 2.5 H 2.0 Total Bilirubin (0.2 - 1.3 mg/dL) 0.6 0.9 AST (17 - 59 U/L) 43 47 ALT (21 - 72 U/L) 31 36 Albumin (3.5 - 5.0 g/dL) 1.5 L 1.5 L Hematology CBC w Diff MAN DIFF ORDERED MAN DIFF ORDERED WBC (4.8 - 10.8 /CUMM) 45.0 *H 46.0 *H RBC (4.70 - 6.10 /CUMM) 4.06 L 4.27 L Hgb (14.0 - 18.0 G/DL) 11.6 L 12.1 L Hct (42 - 52 %) 35.7 L 37.6 L MCV (80.0 - 94.0 FL) 87.7 87.9 MCH (27.0 - 31.0 PG) 28.4 28.3 RDW (11.5 - 14.5 %) 17.3 H 17.5 H Plt Count (130 - 400 /CUMM) 313 348 MPV (7.4 - 10.4 FL) 8.8 9.1 Gran % (42.2 - 75.2 %) 86.1 H 84.6 H Lymphocytes % (20.5 - 51.1 %) 13.4 L 13.0 L Monocytes % (1.7 - 9.3 %) 0.4 L 2.1 Eosinophils % (0 - 5 %) 0 0.1 Basophils % (0.0 - 2.0 %) 0.1 0.2 Absolute Granulocytes (1.4 - 6.5 /CUMM) 38.7 H 38.9 H Segmented Neutrophils (42.2 - 75.2 %) 75 48 Band Neutrophils (0.0 - 5.0 %) 11 H 29 H Absolute Lymphocytes (1.2 - 3.4 /CUMM) 6.0 H 6.0 H Lymphocytes (20.5 - 51.1 %) 11 L 17 L Monocytes (1.7 - 9.3 %) 3 3 Absolute Monocytes (0.10 - 0.60 /CUMM) 0.2 1.0 H Absolute Eosinophils (0.0 - 0.7 /CUMM) 0 0 Absolute Basophils (0.0 - 0.2 /CUMM) 0 0.1 Metamyelocytes (0.0 - 1.0 %) 2 H Myelocytes (0 - 0 %) 1 H Nucleated RBCs (0.0 - 0.0 /100WBC) 1 H Platelet Estimate (ADEQUATE) ADEQUATE ADEQUATE Hypochromic-Microcytic 1+ Anisocytosis 1+ 1+ PUBS MCHC (33.0 - 37.0 G/DL) 32.4 L 32.2 L 07/16 07/16 07/16 1540 1510 1445 Blood Gas pH (7.35 - 7.45 PH) 7.30 *L pCO2 (35 - 45 TORR) 28 L pO2 (80 - 100 TORR) 76 L HCO3 (21 - 28 MEQ/L) 14 L ABG O2 Sat (Measured) (>96.0 %) 93.0 L P-50 (Temp Corrected) N Carboxyhemoglobin (1.5 - 5.0 %) 0.3 L O2 Concentration % 60% Respiration Rate (BPM) 20 O2 Delivery Method VENT Vent Mode AC Expiratory Pressure (CMH2O/P) 5 Tidal Volume (CC) 600 Pressure Support (CMH2O/P) 0 Chemistry Sodium (137 - 145 mmol/L) 141 Potassium (3.5 - 5.1 mmol/L) 5.6 H Chloride (98 - 107 mmol/L) 112 H Carbon Dioxide (22 - 30 mmol/L) 16 L Anion Gap (5 - 16) 13 BUN (9 - 20 mg/dL) 30 H Creatinine (0.7 - 1.2 mg/dL) 1.8 H Estimated GFR (>60 ml/min) 37 L Glucose (65 - 99 mg/dL) 319 H Lactic Acid (0.7 - 2.1 mmol/L) 4.9 H Calcium (8.4 - 10.2 mg/dL) 6.9 L Phosphorus (2.5 - 4.5 mg/dL) 4.4 Magnesium (1.6 - 2.3 mg/dL) 2.0 Total Bilirubin (0.2 - 1.3 mg/dL) 0.7 AST (17 - 59 U/L) 42 ALT (21 - 72 U/L) 37 Albumin (3.5 - 5.0 g/dL) 1.6 L Miscellaneous Phlebotomy Draw Site LEFT RADIAL Urines Urine Color (YEL,AMB,STR) GREEN H Urine Clarity (CLEAR) HAZY H Urine pH (5.0 - 8.0) 5.5 Ur Specific [place] (1.001 - 1.035) 1.025 Urine Protein (NEG,<30 MG/DL) 30 H Urine Ketones (NEG) NEG Urine Nitrite (NEG) NEG Urine Bilirubin (NEG) NEG@ICTO Urine Urobilinogen (0.1 - 1.0 EU/dl) 0.2 Ur Leukocyte Esterase (NEG) NEG Ur Microscopic SEDIMENT EXAMINED Urine RBC (0 - 5 /HPF) 15-25 H Urine WBC (0 - 2 /HPF) 3-5 H Ur Epithelial Cells (NONE,FEW) FEW Urine Bacteria (NEG/NONE) FEW H Granular Casts (NONE /LPF) RARE H Urine Hemoglobin (NEG) LARGE H Urine Glucose (N MG/DL) 100 H
--- NOTE | 2017-07-17 11:51 | PN- Cardiology ---
Subjective Subjective: Remains intubated and on intravenous pressors. MAXIMUM TEMPERATURE noted at 103.8. He is now on cooling blanket. Objective Vital Signs and I&Os Vital Signs Date Time Temp Pulse Resp B/P B/P Pulse O2 O2 Flow FiO2 Mean Ox Delivery Rate 07/17 1058 45 07/17 0929 68 97/52 07/17 0817 69 102/60 07/17 0812 60 07/17 0800 99.3 71 25 102/60 98 Ventilator 60% 07/17 0800 98 Ventilator 60% 07/17 0617 60 07/17 0444 60 07/17 0400 97 Ventilator 60% 07/17 0315 74 102/57 07/17 0227 60 07/17 0106 76 104/54 07/17 0000 99.9 75 22 114/00 97 Ventilator 60% 07/17 0000 97 Ventilator 60% 07/16 2233 60 07/16 2130 80 106/60 07/16 2021 60 07/16 2000 98 Ventilator 60% 07/16 1857 103.7 07/16 1826 8 100/50 07/16 1756 103.8 07/16 1618 92 90/50 07/16 1600 60 07/16 1600 93 Ventilator 60% 07/16 1550 97.6 96 34 112/0 93 Ventilator 60% 07/16 1430 60 07/16 1200 94 Ventilator 60% Intake & Output 07/17 1600 07/17 0800 07/17 0000 07/16 1600 07/16 0800 07/16 0000 Intake Total 2277.0 2410.0 4048.7 6853.0 1120.0 Output Total 965 585 930 764 8296 Balance 1312.0 1825.0 3553.7 6483.0 -247.0 Intake, IV 1495 1648 3287.3 6020 672 Intake, Lipid 117.0 113.0 113.4 124.0 81.0 Intake, Oral 0 0 Intake, 665 649 648 709 367 TPN/PPN Number 1 1 1 0 Bowel Movements Output, 150 150 225 225 950 Drainage Output, 300 10 Gastric Drainage Output, Other 50 Output, Stool 2 Output, Urine 515 435 260 95 415 Physical Exam: General: Intubated HEENT: No abnormal jugular venous pulsations. Cardiovascular: Normal intensity S1/S2. Pacemaker noted Respiratory: Decreased air entry Abdomen: no obvious guarding Musculoskeletal: No clubbing or cyanosis noted; Trace lower extremity edema Skin: Warm Neurologic: Intubated Lymph: no gross lad Current Medications: Current Medications Sig/Buck Start time Last Medication Dose Route Stop Time Status Admin Acetaminophen 1,000 MG ONCE ONE 07/16 1800 DC 07/16 N/A 1 UNIT IV 07/16 1814 1756 Acetaminophen 1,000 MG Q6P PRN 07/16 0530 AC 07/16 N/A 1 UNIT IV 0520 Budesonide/ 2 PUF BID 07/09 2200 07/15 Formoterol Fumarate INH 0940 Fat Emulsion 350 ML 1900 07/17 1900 AC Intravenous IV 07/18 185 Fat Emulsion 350 ML 1900 07/16 1900 AC 07/16 Intravenous IV 07/17 1852006 Fat Emulsion 500 ML Q24H 07/15 1900 DC 07/15 Intravenous IV 07/16 185 1957 Fentanyl Citrate 1,000 MCG Q10H 07/16 2200 AC 07/17 Dextrose/Water 250 ML IV 0817 Fentanyl Citrate 1,000 MCG Q24H 07/16 1130 DC 07/16 Dextrose/Water 250 ML IV 1202 Fentanyl Citrate 1,000 MCG Q24H 07/16 0500 DC Dextrose/Water 250 ML IV Fluconazole 400 MG DAILY 07/16 1000 AC 07/17 Sodium Chloride 200 ML IV 0929 Heparin Sodium 5,000 UNIT Q8 07/10 0138 AC 07/17 (Porcine) SC 0516 Hydrocortisone 50 MG Q8 07/16 1400 AC 07/17 Sodium Succinate IV 0516 Insulin Aspart 15 UNITS ONCE ONE 07/16 1200 DC 07/16 KS 07/16 1201 1201 Insulin Human Regular 100 UNIT Q12H 07/17 1000 AC 07/17 Sodium Chloride 100 ML IV 1117 Insulin Human Regular 100 UNIT Q14H 07/17 0200 DC Sodium Chloride 100 ML IV Insulin Human Regular 100 UNIT Q10H 07/17 0000 DC Sodium Chloride 100 ML IV Insulin Human Regular 100 UNIT Q11H 07/17 0000 DC Sodium Chloride 100 ML IV Insulin Human Regular 100 UNIT Q10H 07/17 0000 DC 07/16 Sodium Chloride 100 ML IV 07/17 0959 2317 Insulin Human Regular 100 UNIT Q24H 07/16 1200 DC 07/16 Sodium Chloride 100 ML IV 07/16 2359 1314 Insulin Human Regular 0 Q6 07/16 0129 DC 07/16 SC 0532 Meropenem 1 GM Q8H 07/16 0200 07/17 IV 0929 Morphine Sulfate 2 MG Q4P PRN 07/14 1145 07/16 IV 0404 Norepinephrine 4 MG Q5H 07/17 1300 AC Sodium Chloride 250 ML IV Norepinephrine 4 MG Q3H 07/16 1530 07/17 Sodium Chloride 250 ML IV 07/17 1259 0929 Norepinephrine 4 MG Q24H 07/16 0130 DC 07/16 Sodium Chloride 250 ML IV 07/16 1529 0523 Octreotide Acetate 500 MCG Q20H 07/15 1400 07/17 Dextrose/Water 500 ML IV 0816 Pantoprazole Sodium 40 MG BID 07/10 1016 07/17 IV 0929 Phenylephrine HCl 40 MG Q3H 07/16 1430 07/17 Sodium Chloride 250 ML IV 0817 Phenylephrine HCl 40 MG Q24H 07/16 0245 UT 07/16 Sodium Chloride 250 ML IV 07/16 1429 0242 Sodium Bicarbonate 50 MEQ Q20H 07/16 0900 DC 07/16 Dextrose/Sodium 1,000 ML IV 1000 Chloride Total Parenteral 1 UNIT 1900 07/17 190 AC Nutrition IV 07/18 185 Total Parenteral 1 UNIT 1900 07/16 1900 07/16 Nutrition IV 07/17 1852006 Total Parenteral 1 UNIT Q24H 07/15 190 UT 07/15 Nutrition IV 07/16 1851955 Vancomycin HCl 1,500 MG DAILY 07/16 1000 07/17 Sodium Chloride 250 ML IV 1117 Vasopressin 40 UNITS Q16H 07/16 0500 DC 07/16 Sodium Chloride 100 ML IV 2304 Results Last 48 Hrs of Labs/Mics: Laboratory Tests 07/17/17 1141: Lactic Acid Pending 07/17/17 0700: Lactic Acid 2.7 H 07/17/17 0530: pH 7.33 L, pCO2 30 L, pO2 109 H, HCO3 16 L, ABG O2 Sat (Measured) 97.0, P-50 (Temp Corrected) Y, Carboxyhemoglobin 0.3 L, O2 Concentration % 60%, Temperature 99.1, Respiration Rate 20, O2 Delivery Method ESPRIT, Vent Mode AC, Expiratory Pressure 5, Tidal Volume 600, Phlebotomy Draw Site LEFT RADIAL 07/17/17 0415: Lactic Acid 3.4 H 07/17/17 0415: Anion Gap 11, Glucose 209 H, Calcium 7.4 L, Phosphorus 4.5, Magnesium 2.5 H, Total Bilirubin 0.6, AST 43, ALT 31, Albumin 1.5 L, CBC w Diff MAN DIFF ORDERED , RBC 4.06 L, MCV 87.7, MCH 28.4, RDW 17.3 H, MPV 8.8, Gran % 86.1 H, Lymphocytes % 13.4 L, Monocytes % 0.4 L, Eosinophils % 0, Basophils % 0.1, Absolute Granulocytes 38.7 H, Segmented Neutrophils 75, Band Neutrophils 11 H, Absolute Lymphocytes 6.0 H, Lymphocytes 11 L, Monocytes 3, Absolute Monocytes 0.2, Absolute Eosinophils 0, Absolute Basophils 0, Nucleated RBCs 1 H, Platelet Estimate ADEQUATE, Hypochromic-Microcytic 1+, Anisocytosis 1+, PUBS MCHC 32.4 L 07/16/170: Anion Gap 11, Estimated GFR 39 L, Glucose 236 H, Lactic Acid 3.7 H, Calcium 7.0 L, Phosphorus 4.0, Magnesium 2.0, Total Bilirubin 0.9, AST 47, ALT 36, Albumin 1.5 L, CBC w Diff MAN DIFF ORDERED, RBC 4.27 L, MCV 87.9, MCH 28.3, RDW 17.5 H, MPV 9.1, Gran % 84.6 H, Lymphocytes % 13.0 L, Monocytes % 2.1, Eosinophils % 0.1, Basophils % 0.2, Absolute Granulocytes 38.9 H, Segmented Neutrophils 48, Band Neutrophils 29 H, Absolute Lymphocytes 6.0 H, Lymphocytes 17 L, Monocytes 3, Absolute Monocytes 1.0 H, Absolute Eosinophils 0, Absolute Basophils 0.1, Metamyelocytes 2 H, Myelocytes 1 H, Platelet Estimate ADEQUATE, Anisocytosis 1+, PUBS MCHC 32.2 L 07/16/17 1540: Urine Color GREEN H, Urine Clarity HAZY H, Urine pH 5.5, Ur Specific Ruth 1.025, Urine Protein 30 H, Urine Ketones NEG, Urine Nitrite NEG, Urine Bilirubin NEG@ICTO, Urine Urobilinogen 0.2, Ur Leukocyte Esterase NEG, Ur Microscopic SEDIMENT EXAMINED, Urine RBC 15-25 H, Urine WBC 3-5 H, Ur Epithelial Cells FEW, Urine Bacteria FEW H, Granular Casts RARE H, Urine Hemoglobin LARGE H, Urine Glucose 100 H 07/16/17 1510: Anion Gap 13, Estimated GFR 37 L, Glucose 319 H, Lactic Acid 4.9 H, Calcium 6.9 L, Phosphorus 4.4, Magnesium 2.0, Total Bilirubin 0.7, AST 42, ALT 37, Albumin 1.6 L 07/16/17 1445: pH 7.30 *L, pCO2 28 L, pO2 76 L, HCO3 14 L, ABG O2 Sat (Measured) 93.0 L, P- 50 (Temp Corrected) N, Carboxyhemoglobin 0.3 L, O2 Concentration % 60%, Respiration Rate 20, O2 Delivery Method VENT, Vent Mode AC, Expiratory Pressure 5, Tidal Volume 600, Pressure Support 0, Phlebotomy Draw Site LEFT RADIAL 07/16/17 0856: Lactic Acid 4.8 H 07/16/17 0856: Anion Gap 13, Estimated GFR 42 L, BUN/Creatinine Ratio 16.3, Glucose 300 H, Calcium 6.8 L, Phosphorus 3.5, Magnesium 1.8, Total Bilirubin 0.9, AST 31, ALT 35, Albumin 1.5 L, CBC w Diff MAN DIFF ORDERED, RBC 4.51 L, MCV 87.8, MCH 28.7 , RDW 17.2 H, MPV 8.5, Gran % 98.5 H, Lymphocytes % 1.2 L, Monocytes % 0.1 L , Eosinophils % 0.2, Basophils % 0, Absolute Granulocytes 47.6 H, Segmented Neutrophils 56, Band Neutrophils 37 H, Absolute Lymphocytes 0.6 L, Lymphocytes 3 L, Monocytes 1 L, Absolute Monocytes 0.1, Absolute Eosinophils 0.1, Absolute Basophils 0, Metamyelocytes 3 H, Nucleated RBCs 1 H, Poikilocytosis 1+, Anisocytosis 2+, PUBS MCHC 32.6 L 07/16/17 0630: Cortisol AM Sample Cancelled 07/16/17 0545: Lactic Acid 4.6 H 07/16/17 0545: Anion Gap 13, Estimated GFR 42 L, BUN/Creatinine Ratio 15.6, Glucose 296 H, Calcium 6.8 L, Phosphorus 3.7, Magnesium 1.6, Total Bilirubin 0.8, AST 25, ALT 33, Albumin 1.5 L, Cortisol AM Sample 24.8 H, CBC w Diff MAN DIFF ORDERED, RBC 4.41 L, MCV 87.0, MCH 28.5, RDW 16.9 H, MPV 8.4, Gran % 98.0 H, Lymphocytes % 1.6 L, Monocytes % 0.2 L, Eosinophils % 0.2, Basophils % 0, Absolute Granulocytes 39.1 H, Segmented Neutrophils 59, Band Neutrophils 32 H, Absolute Lymphocytes 0.7 L, Lymphocytes 7 L, Monocytes 1 L, Absolute Monocytes 0.1, Absolute Eosinophils 0.1, Absolute Basophils 0, Metamyelocytes 1, Nucleated RBCs 1 H, Platelet Estimate ADEQUATE, Anisocytosis 1+, PUBS MCHC 32.8 L, Fld Total RBCs Counted 100 07/16/17 0317: Lactic Acid Cancelled 07/16/17 0300: pH 7.28 *L, pCO2 36, pO2 76 L, HCO3 16 L, ABG O2 Sat (Measured) 93.0 L, P-50 (Temp Corrected) N, Carboxyhemoglobin 0.2 L, O2 Concentration % .50, Respiration Rate 20, O2 Delivery Method VENT, Vent Mode A/C, Expiratory Pressure 5, Tidal Volume 600, Phlebotomy Draw Site LEFT BRACHIAL 07/16/17 0140: Anion Gap 12, Estimated GFR 42 L, Glucose 295 H, Lactic Acid 4.0 H, Calcium 7.4 L, Phosphorus 5.2 H, Magnesium 1.5 L, Total Bilirubin 0.7, AST 29, ALT 34 , Troponin I 0.01, Albumin 1.9 L, PT 14.5 H, INR 1.39 H, APTT 34, CBC w Diff MAN DIFF ORDERED, RBC 4.70, MCV 87.1, MCH 28.8, RDW 16.3 H, MPV 8.5, Segmented Neutrophils 69, Band Neutrophils 17 H, Lymphocytes 10 L, Metamyelocytes 4 H, Nucleated RBCs 1 H, Platelet Estimate ADEQUATE, Anisocytosis 1+, PUBS MCHC 33.0 , Fld Total RBCs Counted 100 07/16/17 0128: Sodium Cancelled, Potassium Cancelled, Chloride Cancelled, Carbon Dioxide Cancelled, Anion Gap Cancelled, BUN Cancelled, Creatinine Cancelled, BUN/ Creatinine Ratio Cancelled, Lactic Acid Cancelled, Troponin I Cancelled 07/15/17 2100: Lactic Acid 3.3 H 07/15/17 1735: Anion Gap 12, Estimated GFR > 60, Glucose 258 H, Lactic Acid 3.5 H, Calcium 7.7 L, Phosphorus 2.7, Magnesium 1.5 L, Total Bilirubin 0.7, AST 33, ALT 36, Albumin 2.3 L, PT 13.5 H, INR 1.29 H, APTT 31, CBC w Diff MAN DIFF ORDERED, RBC 4.70, MCV 86.5, MCH 28.1, RDW 16.7 H, MPV 9.1, Gran % 76.0 H, Lymphocytes % 21.5, Monocytes % 1.9, Eosinophils % 0.5, Basophils % 0.1, Absolute Granulocytes 21.0 H, Segmented Neutrophils 70, Band Neutrophils 12 H, Absolute Lymphocytes 5.9 H, Lymphocytes 11 L, Monocytes 3, Absolute Monocytes 0.5, Eosinophils 2, Absolute Eosinophils 0.1, Absolute Basophils 0, Metamyelocytes 1, Myelocytes 1 H, Platelet Estimate VERIFIED BY SMEAR, Normocytic RBCs VERIFIED, Normochromic RBCs VERIFIED, PUBS MCHC 32.5 L, Fld Total RBCs Counted 100 07/15/17 1720: pH 7.49 H, pCO2 23 L, pO2 75 L, HCO3 17 L, ABG O2 Sat (Measured) 95.0 L, P- 50 (Temp Corrected) N, Carboxyhemoglobin 0.4 L, O2 Concentration % 50%, Temperature 98.4, O2 Delivery Method VM, Phlebotomy Draw Site LEFT RADIAL Recent Imaging Studies: Telemetry tracings were personally reviewed and show a ventricular paced rhythm with 8 beat run of ventricular tachycardia CXR: Hypoventilated lungs with bibasilar haziness probably effusions and/or atelectasis. Mild cardiomegaly. Stable endotracheal tube and a solitary pacer electrode. Assessment/Plan Assessment/Plan 1. Bowel perforation 2. Septic shock 3. Coronary artery disease/CABG hx 4. NSVT 5. PAF Patient remains in critical condition. Is in septic shock requiring pressors and cooling blanket. Telemetry showed a short 8 beat ventricular run without sustained ventricular tachycardia; will continue to monitor on telemetry but would not initiate on amiodarone for the time being. Prognosis remains guarded. Lorenzo Estrella MD [facility] Continue telemetry? Yes
--- NOTE | 2017-07-17 13:21 | PN- Infect Dx ---
Subjective Subjective: Remains intubated; spiked fever 103F last evening. Currently afebrile. Awake. OG tube with 300 cc bilious drainage per shift; WILLEM drain #1 w 100 cc SS drainage /shift and WILLEM #2 50 cc/shift. Review of Systems Comments: Limited ROS; intubated/sedated. Objective Last 24 Hrs of Vital Signs/I&O Vital Signs Date Time Temp Pulse Resp B/P B/P Pulse O2 O2 Flow FiO2 Mean Ox Delivery Rate 07/17 1254 69 103/51 07/17 1200 95 Ventilator 45% 07/17 1058 45 07/17 0929 68 97/52 07/17 0817 69 102/60 07/17 0812 60 07/17 0800 99.3 71 25 102/60 98 Ventilator 60% 07/17 0800 98 Ventilator 60% 07/17 0617 60 07/17 0444 60 07/17 0400 97 Ventilator 60% 07/17 0315 74 102/57 07/17 0227 60 07/17 0106 76 104/54 07/17 0000 99.9 75 22 114/00 97 Ventilator 60% 07/17 0000 97 Ventilator 60% 07/16 2233 60 07/16 2130 80 106/60 07/16 2021 60 07/16 2000 98 Ventilator 60% 07/16 1857 103.7 07/16 1826 8 100/50 07/16 1756 103.8 07/16 1618 92 90/50 07/16 1600 60 07/16 1600 93 Ventilator 60% 07/16 1550 97.6 96 34 112/0 93 Ventilator 60% 07/16 1430 60 Intake & Output 07/17 1600 07/17 0800 07/17 0000 Intake Total 2277.0 2410.0 Output Total 965 585 Balance 1312.0 1825.0 Intake, IV 1495 1648 Intake, Lipid 117.0 113.0 Intake, 665 649 TPN/PPN Number 1 1 Bowel Movements Output, 150 150 Drainage Output, 300 Gastric Drainage Output, Urine 515 435 Physical Exam Other Physical Findings: Critically ill, intubated HEENT AT, ETT/OG in place Neck No YOON Lungs BS diminished bases Heart regular rhythm with no murmur, AICD Abdomen is distended; WILLEM drains in place; FJejunal feeding tube in place as well Extremities edema both upper extremities; PICC in the right upper extremity with no inflammation at the site Duvall catheter patent Neuro: awake, able to answer questions Results Last 24 Hours of Lab Results: Laboratory Tests 07/17 07/17 07/17 07/17 07/17 1145 1141 0700 0530 0415 Blood Gas pH (7.35 - 7.45 PH) 7.33 L pCO2 (35 - 45 TORR) 30 L pO2 (80 - 100 TORR) 109 H HCO3 (21 - 28 MEQ/L) 16 L ABG O2 Sat (Measured) (>96.0 %) 97.0 P-50 (Temp Corrected) Y Carboxyhemoglobin (1.5 - 5.0 %) 0.3 L O2 Concentration % 60% Temperature (97.0 - 100.0 FARH) 99.1 Respiration Rate (BPM) 20 O2 Delivery Method ESPRIT Vent Mode AC Expiratory Pressure (CMH2O/P) 5 Tidal Volume (CC) 600 Chemistry Lactic Acid (0.7 - 2.1 mmol/L) 2.1 2.7 H 3.4 H Miscellaneous Phlebotomy Draw Site LEFT RADIAL Urines Ur Random Creatinine (mg/dL) 61.5 Ur Random Sodium (30 - 90 mmol/L) 26 L Ur Random Potassium (mmol/L) 40.5 Fraction Sodium Excret (<1% %) 0.5 07/175 0 Chemistry Sodium (137 - 145 mmol/L) 140 141 Potassium (3.5 - 5.1 mmol/L) 4.4 5.1 Chloride (98 - 107 mmol/L) 112 H 114 H Carbon Dioxide (22 - 30 mmol/L) 17 L 16 L Anion Gap (5 - 16) 11 11 BUN (9 - 20 mg/dL) 37 H 33 H Creatinine (0.7 - 1.2 mg/dL) 1.6 H 1.7 H Estimated GFR (>60 ml/min) 39 L Glucose (65 - 99 mg/dL) 209 H 236 H Lactic Acid (0.7 - 2.1 mmol/L) 3.7 H Calcium (8.4 - 10.2 mg/dL) 7.4 L 7.0 L Phosphorus (2.5 - 4.5 mg/dL) 4.5 4.0 Magnesium (1.6 - 2.3 mg/dL) 2.5 H 2.0 Total Bilirubin (0.2 - 1.3 mg/dL) 0.6 0.9 AST (17 - 59 U/L) 43 47 ALT (21 - 72 U/L) 31 36 Albumin (3.5 - 5.0 g/dL) 1.5 L 1.5 L Hematology CBC w Diff MAN DIFF ORDERED MAN DIFF ORDERED WBC (4.8 - 10.8 /CUMM) 45.0 *H 46.0 *H RBC (4.70 - 6.10 /CUMM) 4.06 L 4.27 L Hgb (14.0 - 18.0 G/DL) 11.6 L 12.1 L Hct (42 - 52 %) 35.7 L 37.6 L MCV (80.0 - 94.0 FL) 87.7 87.9 MCH (27.0 - 31.0 PG) 28.4 28.3 RDW (11.5 - 14.5 %) 17.3 H 17.5 H Plt Count (130 - 400 /CUMM) 313 348 MPV (7.4 - 10.4 FL) 8.8 9.1 Gran % (42.2 - 75.2 %) 86.1 H 84.6 H Lymphocytes % (20.5 - 51.1 %) 13.4 L 13.0 L Monocytes % (1.7 - 9.3 %) 0.4 L 2.1 Eosinophils % (0 - 5 %) 0 0.1 Basophils % (0.0 - 2.0 %) 0.1 0.2 Absolute Granulocytes (1.4 - 6.5 /CUMM) 38.7 H 38.9 H Segmented Neutrophils (42.2 - 75.2 %) 75 48 Band Neutrophils (0.0 - 5.0 %) 11 H 29 H Absolute Lymphocytes (1.2 - 3.4 /CUMM) 6.0 H 6.0 H Lymphocytes (20.5 - 51.1 %) 11 L 17 L Monocytes (1.7 - 9.3 %) 3 3 Absolute Monocytes (0.10 - 0.60 /CUMM) 0.2 1.0 H Absolute Eosinophils (0.0 - 0.7 /CUMM) 0 0 Absolute Basophils (0.0 - 0.2 /CUMM) 0 0.1 Metamyelocytes (0.0 - 1.0 %) 2 H Myelocytes (0 - 0 %) 1 H Nucleated RBCs (0.0 - 0.0 /100WBC) 1 H Platelet Estimate (ADEQUATE) ADEQUATE ADEQUATE Hypochromic-Microcytic 1+ Anisocytosis 1+ 1+ PUBS MCHC (33.0 - 37.0 G/DL) 32.4 L 32.2 L 07/16 07/16 07/16 1540 1510 1445 Blood Gas pH (7.35 - 7.45 PH) 7.30 *L pCO2 (35 - 45 TORR) 28 L pO2 (80 - 100 TORR) 76 L HCO3 (21 - 28 MEQ/L) 14 L ABG O2 Sat (Measured) (>96.0 %) 93.0 L P-50 (Temp Corrected) N Carboxyhemoglobin (1.5 - 5.0 %) 0.3 L O2 Concentration % 60% Respiration Rate (BPM) 20 O2 Delivery Method VENT Vent Mode AC Expiratory Pressure (CMH2O/P) 5 Tidal Volume (CC) 600 Pressure Support (CMH2O/P) 0 Chemistry Sodium (137 - 145 mmol/L) 141 Potassium (3.5 - 5.1 mmol/L) 5.6 H Chloride (98 - 107 mmol/L) 112 H Carbon Dioxide (22 - 30 mmol/L) 16 L Anion Gap (5 - 16) 13 BUN (9 - 20 mg/dL) 30 H Creatinine (0.7 - 1.2 mg/dL) 1.8 H Estimated GFR (>60 ml/min) 37 L Glucose (65 - 99 mg/dL) 319 H Lactic Acid (0.7 - 2.1 mmol/L) 4.9 H Calcium (8.4 - 10.2 mg/dL) 6.9 L Phosphorus (2.5 - 4.5 mg/dL) 4.4 Magnesium (1.6 - 2.3 mg/dL) 2.0 Total Bilirubin (0.2 - 1.3 mg/dL) 0.7 AST (17 - 59 U/L) 42 ALT (21 - 72 U/L) 37 Albumin (3.5 - 5.0 g/dL) 1.6 L Miscellaneous Phlebotomy Draw Site LEFT RADIAL Urines Urine Color (YEL,AMB,STR) GREEN H Urine Clarity (CLEAR) HAZY H Urine pH (5.0 - 8.0) 5.5 Ur Specific [place] (1.001 - 1.035) 1.025 Urine Protein (NEG,<30 MG/DL) 30 H Urine Ketones (NEG) NEG Urine Nitrite (NEG) NEG Urine Bilirubin (NEG) NEG@ICTO Urine Urobilinogen (0.1 - 1.0 EU/dl) 0.2 Ur Leukocyte Esterase (NEG) NEG Ur Microscopic SEDIMENT EXAMINED Urine RBC (0 - 5 /HPF) 15-25 H Urine WBC (0 - 2 /HPF) 3-5 H Ur Epithelial Cells (NONE,FEW) FEW Urine Bacteria (NEG/NONE) FEW H Granular Casts (NONE /LPF) RARE H Urine Hemoglobin (NEG) LARGE H Urine Glucose (N MG/DL) 100 H Last 24 Hours of Les Results: SPEC #: [id number] CARMEN: 07/15/17 STATUS: RES RECD: 07/16/[address]: BRO RODRÍGUEZ,AV Davis SOURCE: BODY FLUID ENTR: 07/16/[address]: ISABEL RODRÍGUEZ, JACOBO SPDESC: PELVIC FLU SERENE RODRÍGUEZ,CORNELL CHAUDHRY MD,JUAN Cornejo ORDERED: BODY FLD CULTUR COMMENT: PERITONEAL FLUID RECEIVED ~10CC OF BLOODY VISCOUS FLUID IN STERILE CUP Procedure Result > GRAM STAIN Final 07/16/17-1141 WHITE BLOOD CELLS MODERATE GRAM POSITIVE COCCI FEW GRAM NEGATIVE RODS MANY > BODY FLUID CULTURE Preliminary 07/17/17-1015 Heavy growth of: 1.GRAM NEGATIVE RODS 2.GRAM POSITIVE COCCI Identification and sensitivities to follow Called to/Readback by JACQUELINE by [facility] 07/17/17 1012 Recent Imaging Studies: SERVICE DATE: 07/17/17 EXAM TYPE: RAD - XRY-PORTABLE CHEST XRAY EXAMINATION: XR PORTABLE CHEST CLINICAL INFORMATION: Sepsis on ventilator. COMPARISON: Chest portable 07/16/2017 at 8:05 AM. TECHNIQUE: Portable frontal view of the chest was obtained. FINDINGS: The lungs are slightly hypoventilated bibasilar hazy opacities more so on the left. The upper lungs are relatively clear. The solitary pacer electrode in the right ventricle. The heart size enlarged. Tip of endotracheal tube is approximately 3.9 cm above the kika. IMPRESSION: Hypoventilated lungs with bibasilar haziness probably effusions and/or atelectasis. Mild cardiomegaly. Stable endotracheal tube and a solitary pacer electrode. 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 CT of the abdomen was performed 07/15 revealed free air/extravasation of contrast into peritoneal cavity; taken to sx for repair Fabrizio patch same day. Hospital course complicated by sepsis (fever, hypotension, severe leukocytosis/ leukemoid reaction)/secondary peritonitis (polymicrobial infection; pelvic fluid culture in progress); appears clinically improved today Suggestion: 1. Cont Meropenem 1 gm q 8 h; cont iv vancomycin dosed per pharmacy; goal trough 15-20, as well as empiric antifungal coverage (decrease Fluconazole 200 mg iv daily) pending final pelvic fluid culture (preliminary gm stain GPC ? Enterococcus and GNR enteric pathogens). 2. Monitor CBC, BMP, LFT's, lactic acid. 3. Supportive care per team. 4. FG/u sx recom.
[2017-07-17 16:00] VITALS: BP 120/60
[2017-07-18] VITALS: BP 128/64
[2017-07-18 05:26] LABS: MEAN CORPUSCULAR HGB 28.3 PG (27.0-31.0); MEAN CORPUSCULAR HGB CONC 32.5 G/DL (33.0-37.0); MEAN CORPUSCULAR VOLUME 87.1 FL (80.0-94.0); MEAN PLATELET VOLUME 8.8 FL (7.4-10.4); PLATELET COUNT 306 /CUMM (130-400); RBC DISTRIBUTION WIDTH 17.4 % (11.5-14.5); RED BLOOD CELL CT 3.68 /CUMM (4.70-6.10)
--- NOTE | 2017-07-18 05:52 | PN- General Surgery ---
See Addendum Subjective Subjective: Patient remains intubated, on 2 pressors, still with low-grade temps, no significant change overnight Objective Vital Signs and I&Os Vital Signs Date Time Temp Pulse Resp B/P B/P Pulse O2 O2 Flow FiO2 Mean Ox Delivery Rate 07/18 0400 98 Ventilator 45% 07/18 0359 45 07/18 0351 100.1 69 22 112/54 07/18 0134 45 07/18 0000 97 Ventilator 45% 07/18 0000 99.8 70 24 128/64 97 Ventilator 45% 07/17 2246 45 07/17 2237 99.5 70 20 119/67 07/17 2022 45 07/17 2000 98 Ventilator 45% 07/17 1805 98.9 69 22 104/58 07/17 1614 45 07/17 1600 98 Ventilator 45% 07/17 1600 98.6 69 17 120/60 98 Ventilator 45% 07/17 1341 45 07/17 1254 69 103/51 07/17 1200 95 Ventilator 45% 07/17 1058 45 07/17 0929 68 97/52 07/17 0817 69 102/60 07/17 0812 60 07/17 0800 99.3 71 25 102/60 98 Ventilator 60% 07/17 0800 98 Ventilator 60% 07/17 0617 60 Intake & Output 07/18 0800 07/18 0000 07/17 1600 07/17 0800 07/17 0000 07/16 1600 Intake Total 2042.9 2657.0 2277.0 2410.0 4048.7 Output Total 3390 1700 965 585 495 Balance -1347.1 957.0 1312.0 1825.0 3553.7 Intake, IV 1259.4 1893 1495 1648 3287.3 Intake, Lipid 116.8 114.0 117.0 113.0 113.4 Intake, Oral 0 0 Intake, 666.7 650 665 649 648 TPN/PPN Number 1 1 1 1 Bowel Movements Output, 110 150 150 150 225 Drainage Output, 150 350 300 10 Gastric Drainage Output, Urine 3130 1200 515 435 260 Physical Exam: 8hr shifts: JP1: 100/80/70 light yellow, purulent JP2:50/30/50 green bilious, fibrin NGT: 300/150/120 dark green bilious UO ramon: 1200/3130/810, concentrated yellow BM: 0 OR Cx: GNR, GPC GEN: remains intubated, HEENT: NGT in place CARD: s1s2 PULM: coarse bs throughout anterior ABD: midline stapleline dressing w some minimal dried bloody staining distally, dsd applied. drain dressings cdi, WILLEM x2 bilious drainage w fibrin in bulb, both holding self suction. j-tube to gravity. no bowel sounds. EXT: feet cool bl, 1+ pitting edema B Results Last 48 Hours of Labs: Laboratory Tests 07/18 07/17 07/17 07/17 07/17 0420 1145 1141 0700 0530 Blood Gas pH (7.35 - 7.45 PH) 7.33 L pCO2 (35 - 45 TORR) 30 L pO2 (80 - 100 TORR) 109 H HCO3 (21 - 28 MEQ/L) 16 L ABG O2 Sat (Measured) (>96.0 %) 97.0 P-50 (Temp Corrected) Y Carboxyhemoglobin (1.5 - 5.0 %) 0.3 L O2 Concentration % 60% Temperature (97.0 - 100.0 FARH) 99.1 Respiration Rate (BPM) 20 O2 Delivery Method ESPRIT Vent Mode AC Expiratory Pressure (CMH2O/P) 5 Tidal Volume (CC) 600 Chemistry Sodium Pending Potassium Pending Chloride Pending Carbon Dioxide Pending Anion Gap Pending BUN Pending Creatinine Pending Glucose Pending Lactic Acid (0.7 - 2.1 mmol/L) 2.1 2.7 H Calcium Pending Phosphorus Pending Magnesium Pending Total Bilirubin Pending AST Pending ALT Pending Albumin Pending Hematology CBC w Diff Pending WBC Pending RBC Pending Hgb Pending Hct Pending MCV Pending MCH Pending RDW Pending Plt Count Pending MPV Pending Gran % Pending Lymphocytes % Pending Monocytes % Pending Eosinophils % Pending Basophils % Pending Absolute Granulocytes Pending Absolute Lymphocytes Pending Absolute Monocytes Pending Absolute Eosinophils Pending Absolute Basophils Pending PUBS MCHC Pending Miscellaneous Phlebotomy Draw Site LEFT RADIAL Urines Ur Random Creatinine (mg/dL) 61.5 Ur Random Sodium (30 - 90 mmol/L) 26 L Ur Random Potassium (mmol/L) 40.5 Fraction Sodium Excret (<1% %) 0.5 07/17 07/17 0415 0415 Chemistry Sodium (137 - 145 mmol/L) 140 Potassium (3.5 - 5.1 mmol/L) 4.4 Chloride (98 - 107 mmol/L) 112 H Carbon Dioxide (22 - 30 mmol/L) 17 L Anion Gap (5 - 16) 11 BUN (9 - 20 mg/dL) 37 H Creatinine (0.7 - 1.2 mg/dL) 1.6 H Glucose (65 - 99 mg/dL) 209 H Lactic Acid (0.7 - 2.1 mmol/L) 3.4 H Calcium (8.4 - 10.2 mg/dL) 7.4 L Phosphorus (2.5 - 4.5 mg/dL) 4.5 Magnesium (1.6 - 2.3 mg/dL) 2.5 H Total Bilirubin (0.2 - 1.3 mg/dL) 0.6 AST (17 - 59 U/L) 43 ALT (21 - 72 U/L) 31 Albumin (3.5 - 5.0 g/dL) 1.5 L Hematology CBC w Diff MAN DIFF ORDERED WBC (4.8 - 10.8 /CUMM) 45.0 *H RBC (4.70 - 6.10 /CUMM) 4.06 L Hgb (14.0 - 18.0 G/DL) 11.6 L Hct (42 - 52 %) 35.7 L MCV (80.0 - 94.0 FL) 87.7 MCH (27.0 - 31.0 PG) 28.4 RDW (11.5 - 14.5 %) 17.3 H Plt Count (130 - 400 /CUMM) 313 MPV (7.4 - 10.4 FL) 8.8 Gran % (42.2 - 75.2 %) 86.1 H Lymphocytes % (20.5 - 51.1 %) 13.4 L Monocytes % (1.7 - 9.3 %) 0.4 L Eosinophils % (0 - 5 %) 0 Basophils % (0.0 - 2.0 %) 0.1 Absolute Granulocytes (1.4 - 6.5 /CUMM) 38.7 H Segmented Neutrophils (42.2 - 75.2 %) 75 Band Neutrophils (0.0 - 5.0 %) 11 H Absolute Lymphocytes (1.2 - 3.4 /CUMM) 6.0 H Lymphocytes (20.5 - 51.1 %) 11 L Monocytes (1.7 - 9.3 %) 3 Absolute Monocytes (0.10 - 0.60 /CUMM) 0.2 Absolute Eosinophils (0.0 - 0.7 /CUMM) 0 Absolute Basophils (0.0 - 0.2 /CUMM) 0 Nucleated RBCs (0.0 - 0.0 /100WBC) 1 H Platelet Estimate (ADEQUATE) ADEQUATE Hypochromic-Microcytic 1+ Anisocytosis 1+ PUBS MCHC (33.0 - 37.0 G/DL) 32.4 L Toxicology Random Vancomycin (ug/ml) 6.4 07/16 07/16 2050 1540 Chemistry Sodium (137 - 145 mmol/L) 141 Potassium (3.5 - 5.1 mmol/L) 5.1 Chloride (98 - 107 mmol/L) 114 H Carbon Dioxide (22 - 30 mmol/L) 16 L Anion Gap (5 - 16) 11 BUN (9 - 20 mg/dL) 33 H Creatinine (0.7 - 1.2 mg/dL) 1.7 H Estimated GFR (>60 ml/min) 39 L Glucose (65 - 99 mg/dL) 236 H Lactic Acid (0.7 - 2.1 mmol/L) 3.7 H Calcium (8.4 - 10.2 mg/dL) 7.0 L Phosphorus (2.5 - 4.5 mg/dL) 4.0 Magnesium (1.6 - 2.3 mg/dL) 2.0 Total Bilirubin (0.2 - 1.3 mg/dL) 0.9 AST (17 - 59 U/L) 47 ALT (21 - 72 U/L) 36 Albumin (3.5 - 5.0 g/dL) 1.5 L Hematology CBC w Diff MAN DIFF ORDERED WBC (4.8 - 10.8 /CUMM) 46.0 *H RBC (4.70 - 6.10 /CUMM) 4.27 L Hgb (14.0 - 18.0 G/DL) 12.1 L Hct (42 - 52 %) 37.6 L MCV (80.0 - 94.0 FL) 87.9 MCH (27.0 - 31.0 PG) 28.3 RDW (11.5 - 14.5 %) 17.5 H Plt Count (130 - 400 /CUMM) 348 MPV (7.4 - 10.4 FL) 9.1 Gran % (42.2 - 75.2 %) 84.6 H Lymphocytes % (20.5 - 51.1 %) 13.0 L Monocytes % (1.7 - 9.3 %) 2.1 Eosinophils % (0 - 5 %) 0.1 Basophils % (0.0 - 2.0 %) 0.2 Absolute Granulocytes (1.4 - 6.5 /CUMM) 38.9 H Segmented Neutrophils (42.2 - 75.2 %) 48 Band Neutrophils (0.0 - 5.0 %) 29 H Absolute Lymphocytes (1.2 - 3.4 /CUMM) 6.0 H Lymphocytes (20.5 - 51.1 %) 17 L Monocytes (1.7 - 9.3 %) 3 Absolute Monocytes (0.10 - 0.60 /CUMM) 1.0 H Absolute Eosinophils (0.0 - 0.7 /CUMM) 0 Absolute Basophils (0.0 - 0.2 /CUMM) 0.1 Metamyelocytes (0.0 - 1.0 %) 2 H Myelocytes (0 - 0 %) 1 H Platelet Estimate (ADEQUATE) ADEQUATE Anisocytosis 1+ PUBS MCHC (33.0 - 37.0 G/DL) 32.2 L Urines Urine Color (YEL,AMB,STR) GREEN H Urine Clarity (CLEAR) HAZY H Urine pH (5.0 - 8.0) 5.5 Ur Specific Bentley (1.001 - 1.035) 1.025 Urine Protein (NEG,<30 MG/DL) 30 H Urine Ketones (NEG) NEG Urine Nitrite (NEG) NEG Urine Bilirubin (NEG) NEG@ICTO Urine Urobilinogen (0.1 - 1.0 EU/dl) 0.2 Ur Leukocyte Esterase (NEG) NEG Ur Microscopic SEDIMENT EXAMINED Urine RBC (0 - 5 /HPF) 15-25 H Urine WBC (0 - 2 /HPF) 3-5 H Ur Epithelial Cells (NONE,FEW) FEW Urine Bacteria (NEG/NONE) FEW H Granular Casts (NONE /LPF) RARE H Urine Hemoglobin (NEG) LARGE H Urine Glucose (N MG/DL) 100 H 07/16 07/16 07/16 1510 1445 0856 Blood Gas pH (7.35 - 7.45 PH) 7.30 *L pCO2 (35 - 45 TORR) 28 L pO2 (80 - 100 TORR) 76 L HCO3 (21 - 28 MEQ/L) 14 L ABG O2 Sat (Measured) (>96.0 %) 93.0 L P-50 (Temp Corrected) N Carboxyhemoglobin (1.5 - 5.0 %) 0.3 L O2 Concentration % 60% Respiration Rate (BPM) 20 O2 Delivery Method VENT Vent Mode AC Expiratory Pressure (CMH2O/P) 5 Tidal Volume (CC) 600 Pressure Support (CMH2O/P) 0 Chemistry Sodium (137 - 145 mmol/L) 141 Potassium (3.5 - 5.1 mmol/L) 5.6 H Chloride (98 - 107 mmol/L) 112 H Carbon Dioxide (22 - 30 mmol/L) 16 L Anion Gap (5 - 16) 13 BUN (9 - 20 mg/dL) 30 H Creatinine (0.7 - 1.2 mg/dL) 1.8 H Estimated GFR (>60 ml/min) 37 L Glucose (65 - 99 mg/dL) 319 H Lactic Acid (0.7 - 2.1 mmol/L) 4.9 H 4.8 H Calcium (8.4 - 10.2 mg/dL) 6.9 L Phosphorus (2.5 - 4.5 mg/dL) 4.4 Magnesium (1.6 - 2.3 mg/dL) 2.0 Total Bilirubin (0.2 - 1.3 mg/dL) 0.7 AST (17 - 59 U/L) 42 ALT (21 - 72 U/L) 37 Albumin (3.5 - 5.0 g/dL) 1.6 L Miscellaneous Phlebotomy Draw Site LEFT RADIAL 07/16 07/16 6780 5350 Chemistry Sodium (137 - 145 mmol/L) 142 Potassium (3.5 - 5.1 mmol/L) 4.6 Chloride (98 - 107 mmol/L) 113 H Carbon Dioxide (22 - 30 mmol/L) 16 L Anion Gap (5 - 16) 13 BUN (9 - 20 mg/dL) 26 H Creatinine (0.7 - 1.2 mg/dL) 1.6 H Estimated GFR (>60 ml/min) 42 L BUN/Creatinine Ratio (7 - 25 %) 16.3 Glucose (65 - 99 mg/dL) 300 H Calcium (8.4 - 10.2 mg/dL) 6.8 L Phosphorus (2.5 - 4.5 mg/dL) 3.5 Magnesium (1.6 - 2.3 mg/dL) 1.8 Total Bilirubin (0.2 - 1.3 mg/dL) 0.9 AST (17 - 59 U/L) 31 ALT (21 - 72 U/L) 35 Albumin (3.5 - 5.0 g/dL) 1.5 L Cortisol AM Sample Cancelled Hematology CBC w Diff MAN DIFF ORDERED WBC (4.8 - 10.8 /CUMM) 48.3 *H RBC (4.70 - 6.10 /CUMM) 4.51 L Hgb (14.0 - 18.0 G/DL) 12.9 L Hct (42 - 52 %) 39.6 L MCV (80.0 - 94.0 FL) 87.8 MCH (27.0 - 31.0 PG) 28.7 RDW (11.5 - 14.5 %) 17.2 H Plt Count (130 - 400 /CUMM) 354 MPV (7.4 - 10.4 FL) 8.5 Gran % (42.2 - 75.2 %) 98.5 H Lymphocytes % (20.5 - 51.1 %) 1.2 L Monocytes % (1.7 - 9.3 %) 0.1 L Eosinophils % (0 - 5 %) 0.2 Basophils % (0.0 - 2.0 %) 0 Absolute Granulocytes (1.4 - 6.5 /CUMM) 47.6 H Segmented Neutrophils (42.2 - 75.2 %) 56 Band Neutrophils (0.0 - 5.0 %) 37 H Absolute Lymphocytes (1.2 - 3.4 /CUMM) 0.6 L Lymphocytes (20.5 - 51.1 %) 3 L Monocytes (1.7 - 9.3 %) 1 L Absolute Monocytes (0.10 - 0.60 /CUMM) 0.1 Absolute Eosinophils (0.0 - 0.7 /CUMM) 0.1 Absolute Basophils (0.0 - 0.2 /CUMM) 0 Metamyelocytes (0.0 - 1.0 %) 3 H Nucleated RBCs (0.0 - 0.0 /100WBC) 1 H Poikilocytosis 1+ Anisocytosis 2+ PUBS MCHC (33.0 - 37.0 G/DL) 32.6 L Assessment/Plan Assessment/Plan A- 76yoM POD3 sp ex lap, primary closure and tono patch of perf'ed duo ulcer, POD11 sp initial ex lap w tono patch, on TPN, angie and levo, octreotide gtt, insulin gtt, and fentanyl gtt P- Cont TPN, NPO strict I&Os JPs to self suction follow up am labs monitor fever trend-abx per ID monitor for return of bowel function IV octreotide, protonix DVT ppx- hep sq fu OR cx, abx per ID medical care per critical care team and consultants
[2017-07-18 05:58] LABS: WHITE BLOOD CELL COUNT 32.5 /CUMM (4.8-10.8)
--- NOTE | 2017-07-18 07:02 | PN- Resident CRCU ---
Subjective HPI/CRCU Issues: Current issues - * Duodenal perforation status post patch repair(07/09/2017),drain malpositioned leading to uncontrolled leak taken to OR for washout on 07/15/2017 f/b septicemia and shock, jejunostomy tube in place -blood culture is growing - enterobacter aerogenes and enterococcus * Acute on Chronic kidney failure, - ATN and contrast induced nephropathy * Uncontrolled DM, secondary to Sepsis, pressors and octreotide on insulin drip * On ventilator for acute respiratory failure * NSVT * Ansarca -on TPN PMH - * IHD,CABG, LVEF -35% * AF, was on tykosyn * Hx of AICD * Type -2 DM * Hx of CKD * Hx of ECSWL * Hx of PUD * Hx of recent 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 with prolonged antibiotic,s /p post removal in early 2016 * Hyperlipidemia * LIAM 24 Hour Events: 07/14 07/15 07/16 07/17 07/18 Tmax 99.0 101.4 103.8 100.4 BP 140/53 108/61 93/53 119/58 pressors NE,PE,V NE,PE NE,PE intake 3985 9188 8736 5903 output 6515 3985 2135 6150 JP1 800 1675 325 250 JP2 100 200 130 NJ tube 400 670 WBC 15.7 27.6 48.3 45.0 32.5 Lactic acid 3.5 4.9 2.7 2.1 HCO3 17 14 16 20 Cr 1.0 0.9 1.8 1.6 1.1 antibiotics unasyn unasyn marine,vanco,fluc Merop,vanco,flu marine, vanco Insulin drip - - Y Y Y Hydrocort - - 100MG, 50MG X8 50MG X 8 50MG X 8 Objective Vital Signs & I&O Last 8 Hrs of Vitals and I&O: Vital signs -temperature 100.4, pulse 69, paced rhythm, respiratory rate 20, blood pressure 119/58 SPO2 98% on FiO2 45% Exam General Appearance: no apparent distress, comfortable, intubated, obese Head: normal appearance Ears, Nose, Throat: normal ENT inspection Neck: normal inspection, supple Respiratory: normal breath sounds, chest non-tender, no respiratory distress, quiet respiration, decreased breath sounds Cardiovascular: irregularly irregular Gastrointestinal: distended, bowel sounds positive, two drains were there -on right side Extremities: generalized swelling, pitting edema, feeble pulses, Skin: pallor, dry, pale Other Physical Findings: He responds to verbal command and able to move all limbs, abdoman is non tender Weaning Parameters NIF: 21 Minute Volume: 11.5 Resp rate: 22 Vt: 478 Heart Rate: 76 Weaning Schedule Start Time: 0909 Minute Volume: 12.3 Resp Rate: 25 Vt: 594 Heart Rate: 76 End Time: 1210 Minute Volume: 11.8 Resp Rate: 22 Vt: 604 Heart Rate: 69 Current Medications: Current Medications Sig/Buck Start time Last Medication Dose Route Stop Time Status Admin Acetaminophen 1,000 MG Q6P PRN 07/16 0530 07/20 N/A 1 UNIT IV 0659 Budesonide/ 2 PUF BID 07/09 2200 07/23 Formoterol Fumarate INH 0949 Carvedilol 3.125 MG BID 07/22 1000 07/23 PO 0948 Daptomycin 500 MG Q24H 07/20 1130 07/23 Sodium Chloride 50 ML IV 1031 Fat Emulsion 350 ML Q24H 07/22 1900 07/22 Intravenous IV 07/23 1852017 Fat Emulsion 350 ML Q24H 07/21 1900 AL 07/21 Intravenous IV 07/22 Furosemide 20 MG 7:30 AM, & 4:30 PM 07/19 1630 07/23 IV 1632 Heparin Sodium 5,000 UNIT Q8 07/10 0138 AL 07/23 (Porcine) SC 0516 Hydrocortisone 50 MG Q12 07/23 2200 CAN Sodium Succinate IV Hydrocortisone 50 MG Q8H 07/23 1600 07/23 Sodium Succinate IV 1632 Hydrocortisone 50 MG Q8H 07/20 1930 DC 07/23 Sodium Succinate IV 1031 Insulin Human Regular 100 UNIT Q12H 07/22 1800 07/23 Sodium Chloride 100 ML IV 0521 Insulin Human Regular 100 UNIT Q11H 07/21 2359 AL 07/22 Sodium Chloride 100 ML IV 07/22 1759 0019 Meropenem 1 GM Q8H 07/20 1000 07/23 IV 1632 Morphine Sulfate 2 MG Q4P PRN 07/14 1145 07/22 IV 1659 Octreotide Acetate 500 MCG Q20H 07/15 1400 07/22 Dextrose/Water 500 ML IV 2133 Pantoprazole Sodium 40 MG BID 07/10 1016 07/23 IV 0948 Total Parenteral 1 UNIT 1900 07/23 190 Nutrition IV 07/24 1859 Total Parenteral 1 UNIT 1900 07/22 1900 AC 07/22 Nutrition IV 07/23 Total Parenteral 1 UNIT 1900 07/21 1900 DC 07/21 Nutrition IV 07/22 Impression/Plan Impression/Problem List Impression: Duodenal perforation status post patch repair(07/09/2017),drain malpositioned leading to uncontrolled leak taken to OR for washout on 07/15/2017 f/b septicemia and shock;jejunostomy tube in place -blood culture is growing - enterobacter aerogenes and enterococcus * We will continue Meropenem and Vancomycin (D3), band cells are only 5. * Vancomycin trough is 7, will continue same dose. * Stopped fluconazole * Strict intake output charting * Vitals every 4 hrly * We will send WILLEM drain fluid for culture and will follow it. * Continue to taper vasopressors - On PE,NE. We will taper PE first. * Continue fentanyl drip for sedation Uncontrolled DM, secondary to Sepsis, pressors and octreotide * Following Dr [facility] * Will continue Insulin drip * Target Blood sugar 140 -180. * Discussed with surgery - continue Octreotide Acute respiratory failure due to sepsis and shock - * On ventilator -AC,RR20,PEEP-5 ,FIO2 40, TV-600 under fantanyl sedation CAD,CABG,AICD, NSVT - * He had an episode on NSVT Ansarca, right arm swelling and decreased peripheral pulsation - albumin -1.7 * will give inj lasix 20mg once * we will do color doppler of right upper arm to r/o DVT. * Continue TPN Dyselectrolytemia - Low K, Low Mg * Supplemented Acute on chronic Kidney disease -Cr 1.1 - possible ATN/contrast induced nephropathy -recovering * We will continue strict I/O charting. * Avoid nephrotoxins * will follow ICU bundle Nutrition - On TPN/Lipids - 75U on insulin Code status -Full code DVT prophylaxis - Heparin/ALPS Problem List: 1. Afib 2. Hypomagnesemia 3. HFrEF (heart failure with reduced ejection fraction) 4. Duodenal ulcer with perforation 5. Septic shock Pain Ratin Tomorrow's Labs & Rationales: cbc,icu bundle, cxr,abg - for f/u Plan DVT/Prophylaxis: mechanical, pharmacological
[2017-07-18 08:00] VITALS: BP 112/64
--- NOTE | 2017-07-18 08:23 | PN- Diabetes ---
Assessment/Plan Assessment: 76-year-old male with Hx of CAD with low ejection fraction, atrial fibrillation, AICD, previous infection of hip with prolonged antibiotic, history of peptic ulcer disease, diabetes and renal stone, was admitted for perforation of duodenum now with septic shock in ICU. He was on 3 pressors, TPN, octreotide drip and bicarb drip. His BP remained low and stress dose of steroid was initiated despite his am cortisol was 24.8. His glucose level was in the 300s. Insulin drip was initiated. Currently he is still on 2 pressors, TPN, Hydrocortisone and octreotide drip. On 07/16/2017, 36 units of insulin was added to TPN ( 12.5% dextrose x 2100 ml/ 24 hours). On 07/17/2017, 50 units of insulin was added to the TPN. He is receiving insulin drip between 11 units per hour and 12 units per hour over the past several hours and his FSGs have been 190 and 240. Plan: 1. add insulin 75 units to TPN today ( 12.5% x 2100 ml/24 hours); 2. continue insulin drip; monitor FSG every one hour and titrate the insulin drip rate accordingly to keep glucose level between 140 and 180 mg/dl. any questions, please contact me. will follow. Subjective Subjective: Patient remains intubated. Objective Last 24 Hrs of Vital Signs/I&O Vital Signs Date Time Temp Pulse Resp B/P B/P Pulse O2 O2 Flow FiO2 Mean Ox Delivery Rate 07/18 0800 100.5 69 22 112/64 98 Ventilator 45% 07/18 0601 45 07/18 0400 98 Ventilator 45% 07/18 0359 45 07/18 0351 100.1 69 22 112/54 07/18 0134 45 07/18 0000 97 Ventilator 45% 07/18 0000 99.8 70 24 128/64 97 Ventilator 45% 07/17 2246 45 07/17 2237 99.5 70 20 119/67 07/17 202 45 07/17 2000 98 Ventilator 45% 07/17 1805 98.9 69 22 104/58 07/17 1614 45 07/17 1600 98 Ventilator 45% 07/17 1600 98.6 69 17 120/60 98 Ventilator 45% 07/17 1341 45 07/17 1254 69 103/51 07/17 1200 95 Ventilator 45% 07/17 1058 45 07/17 0929 68 97/52 Intake & Output 07/18 1600 07/18 0800 07/18 0000 Intake Total 1703 2042.9 Output Total 1050 3390 Balance 653 -1347.1 Intake, IV 1703 1259.4 Intake, Lipid 116.8 Intake, 666.7 TPN/PPN Number 1 Bowel Movements Output, 120 110 Drainage Output, 120 150 Gastric Drainage Output, Urine 810 3130 Findings Pertinent Lab/Les Results: Laboratory Tests 07/18 07/17 07/17 0420 1145 1141 Chemistry Sodium (137 - 145 mmol/L) 140 Potassium (3.5 - 5.1 mmol/L) 3.7 Chloride (98 - 107 mmol/L) 111 H Carbon Dioxide (22 - 30 mmol/L) 21 L Anion Gap (5 - 16) 9 BUN (9 - 20 mg/dL) 34 H Creatinine (0.7 - 1.2 mg/dL) 1.1 Estimated GFR (>60 ml/min) > 60 Glucose (65 - 99 mg/dL) 162 H Lactic Acid (0.7 - 2.1 mmol/L) 2.1 Calcium (8.4 - 10.2 mg/dL) 7.2 L Phosphorus (2.5 - 4.5 mg/dL) 2.9 Magnesium (1.6 - 2.3 mg/dL) 1.7 Total Bilirubin (0.2 - 1.3 mg/dL) 0.6 AST (17 - 59 U/L) 31 ALT (21 - 72 U/L) 37 Albumin (3.5 - 5.0 g/dL) 1.5 L Hematology CBC w Diff MAN DIFF ORDERED WBC (4.8 - 10.8 /CUMM) 32.5 *H RBC (4.70 - 6.10 /CUMM) 3.68 L Hgb (14.0 - 18.0 G/DL) 10.4 L Hct (42 - 52 %) 32.0 L MCV (80.0 - 94.0 FL) 87.1 MCH (27.0 - 31.0 PG) 28.3 RDW (11.5 - 14.5 %) 17.4 H Plt Count (130 - 400 /CUMM) 306 MPV (7.4 - 10.4 FL) 8.8 Segmented Neutrophils (42.2 - 75.2 %) 85 H Band Neutrophils (0.0 - 5.0 %) 5 Lymphocytes (20.5 - 51.1 %) 4 L Monocytes (1.7 - 9.3 %) 4 Metamyelocytes (0.0 - 1.0 %) 2 H Platelet Estimate (ADEQUATE) ADEQUATE Polychromasia 1+ Hypochromic-Microcytic 1+ Poikilocytosis 1+ Ovalocytes 1+ PUBS MCHC (33.0 - 37.0 G/DL) 32.5 L Other Body Source Fld Total RBCs Counted (%) 100 Urines Ur Random Creatinine (mg/dL) 61.5 Ur Random Sodium (30 - 90 mmol/L) 26 L Ur Random Potassium (mmol/L) 40.5 Fraction Sodium Excret (<1% %) 0.5
--- NOTE | 2017-07-18 09:23 | RADIOLOGY REPORT ---
EXAMINATION: CR PORTABLE CHEST CLINICAL INFORMATION: Intubated. COMPARISON: Several prior chest x-rays, most recent of which is dated 07/17/2017. TECHNIQUE: Portable AP semierect view of the chest was obtained. FINDINGS: Endotracheal tube tip approximately 6 cm above the kika. Enteric tube courses into the abdomen with tip not included. Right atrial pacer lead and right ventricular ICD lead are unchanged. Right subclavian PICC line poorly visualized but presumably at the cavoatrial junction. The cardiomediastinal silhouette remains enlarged, unchanged. The left CP angle is not included on this exam. There is persistent left basilar opacity, consistent with small pleural effusion and associated atelectasis as seen on CT scan from 07/15/2017. There is likely a trace right-sided pleural effusion as well. No pneumothorax is seen. Bony structures are unremarkable. IMPRESSION: 1. Endotracheal tube tip 6 cm above the kika. 2. Enteric tube, pacer/ICD leads, right subclavian PICC line in place as discussed above. 3. No significant change in left basilar opacity, consistent with small pleural effusion and associated atelectasis. 4. Trace right-sided pleural effusion.
--- NOTE | 2017-07-18 10:24 | PN- Infect Dx ---
Subjective Subjective: MAXIMUM TEMPERATURE 100.5. Events of the weekend noted with patient taken back to the OR late on July 15 for worsening physical exam, worrisome for an uncontrolled leak, with suture repair of the perforated duodenal ulcer and placement of a jejunostomy. He spiked to 101.4 postop and 103.8 later on July 16, and his antibiotics were broadened. He was hypotensive, requiring 2 pressors, which he remains on. At present he does not report any specific complaints. Objective Last 24 Hrs of Vital Signs/I&O Vital Signs Date Time Temp Pulse Resp B/P B/P Pulse O2 O2 Flow FiO2 Mean Ox Delivery Rate 07/18 0949 69 118/54 07/18 0815 45 07/18 0800 100.5 69 22 112/64 98 Ventilator 45% 07/18 0800 98 Ventilator 45% 07/18 0601 45 07/18 0400 98 Ventilator 45% 07/18 0359 45 07/18 0351 100.1 69 22 112/54 07/18 0134 45 07/18 0000 97 Ventilator 45% 07/18 0000 99.8 70 24 128/64 97 Ventilator 45% 07/17 2246 45 07/17 2237 99.5 70 20 119/67 07/17 2022 45 07/17 2000 98 Ventilator 45% 07/17 1805 98.9 69 22 104/58 07/17 1614 45 07/17 1600 98 Ventilator 45% 07/17 1600 98.6 69 17 120/60 98 Ventilator 45% 07/17 1341 45 07/17 1254 69 103/51 07/17 1200 95 Ventilator 45% 07/17 1058 45 Intake & Output 07/18 1600 07/18 0800 07/18 0000 Intake Total 1703 2042.9 Output Total 1050 3390 Balance 653 -1347.1 Intake, IV 1703 1259.4 Intake, Lipid 116.8 Intake, 666.7 TPN/PPN Number 1 Bowel Movements Output, 120 110 Drainage Output, 120 150 Gastric Drainage Output, Urine 810 3130 Physical Exam Other Physical Findings: He is awake and alert on the ventilator in no acute distress Lungs scattered crackles Heart regular rhythm with no murmur Abdomen is distended, with [address], with 280 mL output from 1 drain and 130 mL output from the other yesterday, positive bowel sounds Extremities right upper extremity edema, compared to the left, with the PICC site in the right upper extremity with no inflammation Duvall catheter remains in place Results Last 24 Hours of Lab Results: Laboratory Tests 07/18 07/18 07/18 0930 7029 4078 Blood Gas pH (7.35 - 7.45 PH) 7.43 pCO2 (35 - 45 TORR) 30 L pO2 (80 - 100 TORR) 100 HCO3 (21 - 28 MEQ/L) 20 L ABG O2 Sat (Measured) (>96.0 %) 97.0 P-50 (Temp Corrected) YES Carboxyhemoglobin (1.5 - 5.0 %) 0.1 L O2 Concentration % 45% Temperature (97.0 - 100.0 FARH) 100.5 H Respiration Rate (BPM) 20 O2 Delivery Method VENT Vent Mode AC Expiratory Pressure (CMH2O/P) 5 Tidal Volume (CC) 600 Chemistry Sodium (137 - 145 mmol/L) 140 Potassium (3.5 - 5.1 mmol/L) 3.7 Chloride (98 - 107 mmol/L) 111 H Carbon Dioxide (22 - 30 mmol/L) 21 L Anion Gap (5 - 16) 9 BUN (9 - 20 mg/dL) 34 H Creatinine (0.7 - 1.2 mg/dL) 1.1 Estimated GFR (>60 ml/min) > 60 Glucose (65 - 99 mg/dL) 162 H Calcium (8.4 - 10.2 mg/dL) 7.2 L Phosphorus (2.5 - 4.5 mg/dL) 2.9 Magnesium (1.6 - 2.3 mg/dL) 1.7 Total Bilirubin (0.2 - 1.3 mg/dL) 0.6 AST (17 - 59 U/L) 31 ALT (21 - 72 U/L) 37 Albumin (3.5 - 5.0 g/dL) 1.5 L Hematology CBC w Diff MAN DIFF ORDERED WBC (4.8 - 10.8 /CUMM) 32.5 *H RBC (4.70 - 6.10 /CUMM) 3.68 L Hgb (14.0 - 18.0 G/DL) 10.4 L Hct (42 - 52 %) 32.0 L MCV (80.0 - 94.0 FL) 87.1 MCH (27.0 - 31.0 PG) 28.3 RDW (11.5 - 14.5 %) 17.4 H Plt Count (130 - 400 /CUMM) 306 MPV (7.4 - 10.4 FL) 8.8 Segmented Neutrophils (42.2 - 75.2 %) 85 H Band Neutrophils (0.0 - 5.0 %) 5 Lymphocytes (20.5 - 51.1 %) 4 L Monocytes (1.7 - 9.3 %) 4 Metamyelocytes (0.0 - 1.0 %) 2 H Platelet Estimate (ADEQUATE) ADEQUATE Polychromasia 1+ Hypochromic-Microcytic 1+ Poikilocytosis 1+ Ovalocytes 1+ PUBS MCHC (33.0 - 37.0 G/DL) 32.5 L Miscellaneous Phlebotomy Draw Site LEFT RADIAL Other Body Source Fld Total RBCs Counted (%) 100 Toxicology Vancomycin Trough Pending 07/17 07/17 1145 1141 Chemistry Lactic Acid (0.7 - 2.1 mmol/L) 2.1 Urines Ur Random Creatinine (mg/dL) 61.5 Ur Random Sodium (30 - 90 mmol/L) 26 L Ur Random Potassium (mmol/L) 40.5 Fraction Sodium Excret (<1% %) 0.5 Last 24 Hours of Les Results: OR culture July 15 positive for Enterobacter sensitive to Meropenem, Ciprofloxacin, Gentamicin and Bactrim, Enterococcus, with sensitivities pending, and possible anaerobes Blood cultures 2 July 15 negative Sputum culture July 18 pending Recent Imaging Studies: Chest x-ray July 18, personally reviewed, reveals a left basilar opacity with a small effusion Assessment/Plan Impression: Improved today after deterioration late on July 15 secondary to worsening peritonitis and uncontrolled leak, requiring a return to the OR for exploratory laparotomy and suture repair of the leaking duodenal ulcer with placement of a jejunostomy tube. He developed recurrent fevers, which appear to be improved, and a marked leukocytosis, which is also decreasing, now on Vancomycin, Meropenem and Fluconazole, with his OR culture positive for Enterobacter, Enterococcus and, possibly anaerobes, with no evidence of yeast. He was also begun on steroids, apparently for stress, though his cortisol level was 24.8. His renal function, which did deteriorate perioperatively, has normalized. He has increased right upper extremity edema and, with a PICC in place, a DVT should be considered. Suggestion: 1. Further management of steroids per Endocrine 2. Doppler of the right upper extremity 3. Follow-up final culture 4. Discontinue Fluconazole 5. Continue Vancomycin and Meropenem pending above
--- NOTE | 2017-07-18 11:41 | PN- Nephrology ---
Assessment/Plan Assessment: 1. Acute kidney injury 2. Volume status. Suggestion: 1. Avoid nephrotoxins 2. Suspect that he will begin to mobilize fluid. Would only use furosemide if the patient is experiencing symptoms with regards to volume overload. Subjective Subjective: Patient remains intubated and sedated. Family in attendance. Objective Vital Signs and I&Os Vital Signs Date Time Temp Pulse Resp B/P B/P Pulse O2 O2 Flow FiO2 Mean Ox Delivery Rate 07/18 1130 40 07/18 0949 69 118/54 07/18 0815 45 07/18 0800 100.5 69 22 112/64 98 Ventilator 45% 07/18 0800 98 Ventilator 45% 07/18 0601 45 07/18 0400 98 Ventilator 45% 07/18 0359 45 07/18 0351 100.1 69 22 112/54 07/18 0134 45 07/18 0000 97 Ventilator 45% 07/18 0000 99.8 70 24 128/64 97 Ventilator 45% 07/17 2246 45 07/17 2237 99.5 70 20 119/67 07/17 2022 45 07/17 2000 98 Ventilator 45% 07/17 1805 98.9 69 22 104/58 07/17 1614 45 07/17 1600 98 Ventilator 45% 07/17 1600 98.6 69 17 120/60 98 Ventilator 45% 07/17 1341 45 07/17 1254 69 103/51 07/17 1200 95 Ventilator 45% Intake & Output 07/18 1600 07/18 0400 07/17 1600 07/17 0400 07/16 1600 07/16 0400 Intake Total 1703 2042.9 4934.0 2410.0 34431.7 1120.0 Output Total 1050 3390 2665 190 282 8554 Balance 653 -1347.1 2269.0 1825.0 59252.7 -247.0 Intake, IV 1703 1259.4 3388 1648 9307.3 672 Intake, Lipid 116.8 231.0 113.0 237.4 81.0 Intake, Oral 0 0 Intake, 666.7 5139 307 2748 367 TPN/PPN Number 1 2 1 1 Bowel Movements Output, 120 110 300 150 450 950 Drainage Output, 120 150 650 10 Gastric Drainage Output, Other 50 Output, Stool 2 Output, Urine 810 3130 1715 435 355 415 Physical Exam General Appearance: well developed/nourished, sedated, intubated, obese Neck: normal inspection Respiratory: lungs clear, clear anteriorly Cardiovascular: regular rate/rhythm, edema Abdomen: wound not examined Extremities: normal inspection Neurologic/Psychiatric: intubated and sedated Skin: intact Reproductive: Duvall in place, scrotal edema Current Medications: Current Medications Sig/Buck Start time Last Medication Dose Route Stop Time Status Admin Acetaminophen 1,000 MG Q6P PRN 07/16 0530 AC 07/16 N/A 1 UNIT IV 0520 Budesonide/ 2 PUF BID 07/09 220 AC 07/15 Formoterol Fumarate INH 0940 Fat Emulsion 350 ML 1900 07/17 1900 AC 07/17 Intravenous IV 07/18 185 1920 Fat Emulsion 350 ML 1900 07/16 1900 DC 07/16 Intravenous IV 07/17 1852006 Fentanyl Citrate 1,000 MCG Q10H 07/16 2200 07/18 Dextrose/Water 250 ML IV 0444 Fluconazole 200 MG DAILY 07/18 1000 DC Sodium Chloride 100 ML IV Fluconazole 400 MG DAILY 07/16 1000 DC 07/17 Sodium Chloride 200 ML IV 0929 Furosemide 20 MG ONCE ONE 07/18 1000 DC 07/18 IV 07/18 1001 1025 Furosemide 20 MG ONCE ONE 07/17 1600 DC 07/17 IV 07/17 1601 1630 Furosemide 20 MG ONCE ONE 07/17 1300 DC 07/17 IV 07/17 1301 1254 Heparin Sodium 5,000 UNIT Q8 07/10 0138 07/18 (Porcine) SC 0546 Hydrocortisone 50 MG Q8 07/16 1400 AC 07/18 Sodium Succinate IV 0548 Insulin Human Regular 100 UNIT Q9H 07/17 1900 AC 07/18 Sodium Chloride 100 ML IV 0444 Insulin Human Regular 100 UNIT Q12H 07/17 1000 DC 07/17 Sodium Chloride 100 ML IV 07/17 1859 1117 Magnesium Sulfate 1 GM ONCE ONE 07/18 0800 AC 07/18 Dextrose/Water 100 ML IV 07/18 1159 0955 Meropenem 1 GM Q8H 07/16 0200 AC 07/18 IV 0951 Morphine Sulfate 2 MG Q4P PRN 07/14 1145 AC 07/16 IV 0404 Norepinephrine 4 MG Q5H 07/17 1300 AC 07/18 Sodium Chloride 250 ML IV 0949 Norepinephrine 4 MG Q3H 07/16 1530 DC 07/17 Sodium Chloride 250 ML IV 07/17 1259 0929 Octreotide Acetate 500 MCG Q20H 07/15 1400 AC 07/18 Dextrose/Water 500 ML IV 0444 Pantoprazole Sodium 40 MG BID 07/10 1016 07/18 IV 0951 Phenylephrine HCl 40 MG Q3H 07/16 1430 AC 07/18 Sodium Chloride 250 ML IV 0349 Potassium Chloride 20 MEQ ONCE ONE 07/18 0800 DC 07/18 IV 07/18 0801 0818 Total Parenteral 1 UNIT 0 07/17 190 AC 07/17 Nutrition IV 07/18 185 192 Total Parenteral 1 UNIT 0 07/16 190 DC 07/16 Nutrition IV 07/17 Vancomycin HCl 1,500 MG DAILY 07/16 1000 07/18 Sodium Chloride 250 ML IV 1132 Results Pertinent Lab Results: Laboratory Tests 07/18 07/18 07/18 0930 0832 0420 Blood Gas pH (7.35 - 7.45 PH) 7.43 pCO2 (35 - 45 TORR) 30 L pO2 (80 - 100 TORR) 100 HCO3 (21 - 28 MEQ/L) 20 L ABG O2 Sat (Measured) (>96.0 %) 97.0 P-50 (Temp Corrected) YES Carboxyhemoglobin (1.5 - 5.0 %) 0.1 L O2 Concentration % 45% Temperature (97.0 - 100.0 FARH) 100.5 H Respiration Rate (BPM) 20 O2 Delivery Method VENT Vent Mode AC Expiratory Pressure (CMH2O/P) 5 Tidal Volume (CC) 600 Chemistry Sodium (137 - 145 mmol/L) 140 Potassium (3.5 - 5.1 mmol/L) 3.7 Chloride (98 - 107 mmol/L) 111 H Carbon Dioxide (22 - 30 mmol/L) 21 L Anion Gap (5 - 16) 9 BUN (9 - 20 mg/dL) 34 H Creatinine (0.7 - 1.2 mg/dL) 1.1 Estimated GFR (>60 ml/min) > 60 Glucose (65 - 99 mg/dL) 162 H Calcium (8.4 - 10.2 mg/dL) 7.2 L Phosphorus (2.5 - 4.5 mg/dL) 2.9 Magnesium (1.6 - 2.3 mg/dL) 1.7 Total Bilirubin (0.2 - 1.3 mg/dL) 0.6 AST (17 - 59 U/L) 31 ALT (21 - 72 U/L) 37 Albumin (3.5 - 5.0 g/dL) 1.5 L Hematology CBC w Diff MAN DIFF ORDERED WBC (4.8 - 10.8 /CUMM) 32.5 *H RBC (4.70 - 6.10 /CUMM) 3.68 L Hgb (14.0 - 18.0 G/DL) 10.4 L Hct (42 - 52 %) 32.0 L MCV (80.0 - 94.0 FL) 87.1 MCH (27.0 - 31.0 PG) 28.3 RDW (11.5 - 14.5 %) 17.4 H Plt Count (130 - 400 /CUMM) 306 MPV (7.4 - 10.4 FL) 8.8 Segmented Neutrophils (42.2 - 75.2 %) 85 H Band Neutrophils (0.0 - 5.0 %) 5 Lymphocytes (20.5 - 51.1 %) 4 L Monocytes (1.7 - 9.3 %) 4 Metamyelocytes (0.0 - 1.0 %) 2 H Platelet Estimate (ADEQUATE) ADEQUATE Polychromasia 1+ Hypochromic-Microcytic 1+ Poikilocytosis 1+ Ovalocytes 1+ PUBS MCHC (33.0 - 37.0 G/DL) 32.5 L Miscellaneous Phlebotomy Draw Site LEFT RADIAL Other Body Source Fld Total RBCs Counted (%) 100 Toxicology Vancomycin Trough (10.0 - 20.0 ug/mL) 7.0 L 07/17 07/17 07/17 07/17 07/17 1145 1141 0700 0530 0415 Blood Gas pH (7.35 - 7.45 PH) 7.33 L pCO2 (35 - 45 TORR) 30 L pO2 (80 - 100 TORR) 109 H HCO3 (21 - 28 MEQ/L) 16 L ABG O2 Sat (Measured) (>96.0 %) 97.0 P-50 (Temp Corrected) Y Carboxyhemoglobin (1.5 - 5.0 %) 0.3 L O2 Concentration % 60% Temperature (97.0 - 100.0 FARH) 99.1 Respiration Rate (BPM) 20 O2 Delivery Method ESPRIT Vent Mode AC Expiratory Pressure (CMH2O/P) 5 Tidal Volume (CC) 600 Chemistry Lactic Acid (0.7 - 2.1 mmol/L) 2.1 2.7 H 3.4 H Miscellaneous Phlebotomy Draw Site LEFT RADIAL Urines Ur Random Creatinine (mg/dL) 61.5 Ur Random Sodium (30 - 90 mmol/L) 26 L Ur Random Potassium (mmol/L) 40.5 Fraction Sodium Excret (<1% %) 0.5 07/175 0 Chemistry Sodium (137 - 145 mmol/L) 140 141 Potassium (3.5 - 5.1 mmol/L) 4.4 5.1 Chloride (98 - 107 mmol/L) 112 H 114 H Carbon Dioxide (22 - 30 mmol/L) 17 L 16 L Anion Gap (5 - 16) 11 11 BUN (9 - 20 mg/dL) 37 H 33 H Creatinine (0.7 - 1.2 mg/dL) 1.6 H 1.7 H Estimated GFR (>60 ml/min) 39 L Glucose (65 - 99 mg/dL) 209 H 236 H Lactic Acid (0.7 - 2.1 mmol/L) 3.7 H Calcium (8.4 - 10.2 mg/dL) 7.4 L 7.0 L Phosphorus (2.5 - 4.5 mg/dL) 4.5 4.0 Magnesium (1.6 - 2.3 mg/dL) 2.5 H 2.0 Total Bilirubin (0.2 - 1.3 mg/dL) 0.6 0.9 AST (17 - 59 U/L) 43 47 ALT (21 - 72 U/L) 31 36 Albumin (3.5 - 5.0 g/dL) 1.5 L 1.5 L Hematology CBC w Diff MAN DIFF ORDERED MAN DIFF ORDERED WBC (4.8 - 10.8 /CUMM) 45.0 *H 46.0 *H RBC (4.70 - 6.10 /CUMM) 4.06 L 4.27 L Hgb (14.0 - 18.0 G/DL) 11.6 L 12.1 L Hct (42 - 52 %) 35.7 L 37.6 L MCV (80.0 - 94.0 FL) 87.7 87.9 MCH (27.0 - 31.0 PG) 28.4 28.3 RDW (11.5 - 14.5 %) 17.3 H 17.5 H Plt Count (130 - 400 /CUMM) 313 348 MPV (7.4 - 10.4 FL) 8.8 9.1 Gran % (42.2 - 75.2 %) 86.1 H 84.6 H Lymphocytes % (20.5 - 51.1 %) 13.4 L 13.0 L Monocytes % (1.7 - 9.3 %) 0.4 L 2.1 Eosinophils % (0 - 5 %) 0 0.1 Basophils % (0.0 - 2.0 %) 0.1 0.2 Absolute Granulocytes (1.4 - 6.5 /CUMM) 38.7 H 38.9 H Segmented Neutrophils (42.2 - 75.2 %) 75 48 Band Neutrophils (0.0 - 5.0 %) 11 H 29 H Absolute Lymphocytes (1.2 - 3.4 /CUMM) 6.0 H 6.0 H Lymphocytes (20.5 - 51.1 %) 11 L 17 L Monocytes (1.7 - 9.3 %) 3 3 Absolute Monocytes (0.10 - 0.60 /CUMM) 0.2 1.0 H Absolute Eosinophils (0.0 - 0.7 /CUMM) 0 0 Absolute Basophils (0.0 - 0.2 /CUMM) 0 0.1 Metamyelocytes (0.0 - 1.0 %) 2 H Myelocytes (0 - 0 %) 1 H Nucleated RBCs (0.0 - 0.0 /100WBC) 1 H Platelet Estimate (ADEQUATE) ADEQUATE ADEQUATE Hypochromic-Microcytic 1+ Anisocytosis 1+ 1+ PUBS MCHC (33.0 - 37.0 G/DL) 32.4 L 32.2 L Toxicology Random Vancomycin (ug/ml) 6.4 07/16 07/16 07/16 1540 1510 1445 Blood Gas pH (7.35 - 7.45 PH) 7.30 *L pCO2 (35 - 45 TORR) 28 L pO2 (80 - 100 TORR) 76 L HCO3 (21 - 28 MEQ/L) 14 L ABG O2 Sat (Measured) (>96.0 %) 93.0 L P-50 (Temp Corrected) N Carboxyhemoglobin (1.5 - 5.0 %) 0.3 L O2 Concentration % 60% Respiration Rate (BPM) 20 O2 Delivery Method VENT Vent Mode AC Expiratory Pressure (CMH2O/P) 5 Tidal Volume (CC) 600 Pressure Support (CMH2O/P) 0 Chemistry Sodium (137 - 145 mmol/L) 141 Potassium (3.5 - 5.1 mmol/L) 5.6 H Chloride (98 - 107 mmol/L) 112 H Carbon Dioxide (22 - 30 mmol/L) 16 L Anion Gap (5 - 16) 13 BUN (9 - 20 mg/dL) 30 H Creatinine (0.7 - 1.2 mg/dL) 1.8 H Estimated GFR (>60 ml/min) 37 L Glucose (65 - 99 mg/dL) 319 H Lactic Acid (0.7 - 2.1 mmol/L) 4.9 H Calcium (8.4 - 10.2 mg/dL) 6.9 L Phosphorus (2.5 - 4.5 mg/dL) 4.4 Magnesium (1.6 - 2.3 mg/dL) 2.0 Total Bilirubin (0.2 - 1.3 mg/dL) 0.7 AST (17 - 59 U/L) 42 ALT (21 - 72 U/L) 37 Albumin (3.5 - 5.0 g/dL) 1.6 L Miscellaneous Phlebotomy Draw Site LEFT RADIAL Urines Urine Color (YEL,AMB,STR) GREEN H Urine Clarity (CLEAR) HAZY H Urine pH (5.0 - 8.0) 5.5 Ur Specific [place] (1.001 - 1.035) 1.025 Urine Protein (NEG,<30 MG/DL) 30 H Urine Ketones (NEG) NEG Urine Nitrite (NEG) NEG Urine Bilirubin (NEG) NEG@ICTO Urine Urobilinogen (0.1 - 1.0 EU/dl) 0.2 Ur Leukocyte Esterase (NEG) NEG Ur Microscopic SEDIMENT EXAMINED Urine RBC (0 - 5 /HPF) 15-25 H Urine WBC (0 - 2 /HPF) 3-5 H Ur Epithelial Cells (NONE,FEW) FEW Urine Bacteria (NEG/NONE) FEW H Granular Casts (NONE /LPF) RARE H Urine Hemoglobin (NEG) LARGE H Urine Glucose (N MG/DL) 100 H 07/16 07/16 07/16 0856 0856 0630 Chemistry Sodium (137 - 145 mmol/L) 142 Potassium (3.5 - 5.1 mmol/L) 4.6 Chloride (98 - 107 mmol/L) 113 H Carbon Dioxide (22 - 30 mmol/L) 16 L Anion Gap (5 - 16) 13 BUN (9 - 20 mg/dL) 26 H Creatinine (0.7 - 1.2 mg/dL) 1.6 H Estimated GFR (>60 ml/min) 42 L BUN/Creatinine Ratio (7 - 25 %) 16.3 Glucose (65 - 99 mg/dL) 300 H Lactic Acid (0.7 - 2.1 mmol/L) 4.8 H Calcium (8.4 - 10.2 mg/dL) 6.8 L Phosphorus (2.5 - 4.5 mg/dL) 3.5 Magnesium (1.6 - 2.3 mg/dL) 1.8 Total Bilirubin (0.2 - 1.3 mg/dL) 0.9 AST (17 - 59 U/L) 31 ALT (21 - 72 U/L) 35 Albumin (3.5 - 5.0 g/dL) 1.5 L Cortisol AM Sample Cancelled Hematology CBC w Diff MAN DIFF ORDERED WBC (4.8 - 10.8 /CUMM) 48.3 *H RBC (4.70 - 6.10 /CUMM) 4.51 L Hgb (14.0 - 18.0 G/DL) 12.9 L Hct (42 - 52 %) 39.6 L MCV (80.0 - 94.0 FL) 87.8 MCH (27.0 - 31.0 PG) 28.7 RDW (11.5 - 14.5 %) 17.2 H Plt Count (130 - 400 /CUMM) 354 MPV (7.4 - 10.4 FL) 8.5 Gran % (42.2 - 75.2 %) 98.5 H Lymphocytes % (20.5 - 51.1 %) 1.2 L Monocytes % (1.7 - 9.3 %) 0.1 L Eosinophils % (0 - 5 %) 0.2 Basophils % (0.0 - 2.0 %) 0 Absolute Granulocytes (1.4 - 6.5 /CUMM) 47.6 H Segmented Neutrophils (42.2 - 75.2 %) 56 Band Neutrophils (0.0 - 5.0 %) 37 H Absolute Lymphocytes (1.2 - 3.4 /CUMM) 0.6 L Lymphocytes (20.5 - 51.1 %) 3 L Monocytes (1.7 - 9.3 %) 1 L Absolute Monocytes (0.10 - 0.60 /CUMM) 0.1 Absolute Eosinophils (0.0 - 0.7 /CUMM) 0.1 Absolute Basophils (0.0 - 0.2 /CUMM) 0 Metamyelocytes (0.0 - 1.0 %) 3 H Nucleated RBCs (0.0 - 0.0 /100WBC) 1 H Poikilocytosis 1+ Anisocytosis 2+ PUBS MCHC (33.0 - 37.0 G/DL) 32.6 L 07/16 07/16 07/16 0545 0554 0317 Chemistry Sodium (137 - 145 mmol/L) 140 Potassium (3.5 - 5.1 mmol/L) 4.4 Chloride (98 - 107 mmol/L) 112 H Carbon Dioxide (22 - 30 mmol/L) 15 L Anion Gap (5 - 16) 13 BUN (9 - 20 mg/dL) 25 H Creatinine (0.7 - 1.2 mg/dL) 1.6 H Estimated GFR (>60 ml/min) 42 L BUN/Creatinine Ratio (7 - 25 %) 15.6 Glucose (65 - 99 mg/dL) 296 H Lactic Acid (0.7 - 2.1 mmol/L) 4.6 H Cancelled Calcium (8.4 - 10.2 mg/dL) 6.8 L Phosphorus (2.5 - 4.5 mg/dL) 3.7 Magnesium (1.6 - 2.3 mg/dL) 1.6 Total Bilirubin (0.2 - 1.3 mg/dL) 0.8 AST (17 - 59 U/L) 25 ALT (21 - 72 U/L) 33 Albumin (3.5 - 5.0 g/dL) 1.5 L Cortisol AM Sample (4.46 - 22.7 ug/dL) 24.8 H Hematology CBC w Diff MAN DIFF ORDERED WBC (4.8 - 10.8 /CUMM) 39.9 *H RBC (4.70 - 6.10 /CUMM) 4.41 L Hgb (14.0 - 18.0 G/DL) 12.6 L Hct (42 - 52 %) 38.3 L MCV (80.0 - 94.0 FL) 87.0 MCH (27.0 - 31.0 PG) 28.5 RDW (11.5 - 14.5 %) 16.9 H Plt Count (130 - 400 /CUMM) 342 MPV (7.4 - 10.4 FL) 8.4 Gran % (42.2 - 75.2 %) 98.0 H Lymphocytes % (20.5 - 51.1 %) 1.6 L Monocytes % (1.7 - 9.3 %) 0.2 L Eosinophils % (0 - 5 %) 0.2 Basophils % (0.0 - 2.0 %) 0 Absolute Granulocytes (1.4 - 6.5 /CUMM) 39.1 H Segmented Neutrophils (42.2 - 75.2 %) 59 Band Neutrophils (0.0 - 5.0 %) 32 H Absolute Lymphocytes (1.2 - 3.4 /CUMM) 0.7 L Lymphocytes (20.5 - 51.1 %) 7 L Monocytes (1.7 - 9.3 %) 1 L Absolute Monocytes (0.10 - 0.60 /CUMM) 0.1 Absolute Eosinophils (0.0 - 0.7 /CUMM) 0.1 Absolute Basophils (0.0 - 0.2 /CUMM) 0 Metamyelocytes (0.0 - 1.0 %) 1 Nucleated RBCs (0.0 - 0.0 /100WBC) 1 H Platelet Estimate (ADEQUATE) ADEQUATE Anisocytosis 1+ PUBS MCHC (33.0 - 37.0 G/DL) 32.8 L Other Body Source Fld Total RBCs Counted (%) 100 07/16 07/16 0300 0140 Blood Gas pH (7.35 - 7.45 PH) 7.28 *L pCO2 (35 - 45 TORR) 36 pO2 (80 - 100 TORR) 76 L HCO3 (21 - 28 MEQ/L) 16 L ABG O2 Sat (Measured) (>96.0 %) 93.0 L P-50 (Temp Corrected) N Carboxyhemoglobin (1.5 - 5.0 %) 0.2 L O2 Concentration % .50 Respiration Rate (BPM) 20 O2 Delivery Method VENT Vent Mode A/C Expiratory Pressure (CMH2O/P) 5 Tidal Volume (CC) 600 Chemistry Sodium (137 - 145 mmol/L) 139 Potassium (3.5 - 5.1 mmol/L) 4.7 Chloride (98 - 107 mmol/L) 109 H Carbon Dioxide (22 - 30 mmol/L) 18 L Anion Gap (5 - 16) 12 BUN (9 - 20 mg/dL) 22 H Creatinine (0.7 - 1.2 mg/dL) 1.6 H Estimated GFR (>60 ml/min) 42 L Glucose (65 - 99 mg/dL) 295 H Lactic Acid (0.7 - 2.1 mmol/L) 4.0 H Calcium (8.4 - 10.2 mg/dL) 7.4 L Phosphorus (2.5 - 4.5 mg/dL) 5.2 H Magnesium (1.6 - 2.3 mg/dL) 1.5 L Total Bilirubin (0.2 - 1.3 mg/dL) 0.7 AST (17 - 59 U/L) 29 ALT (21 - 72 U/L) 34 Troponin I (<0.11 ng/ml) 0.01 Albumin (3.5 - 5.0 g/dL) 1.9 L Coagulation PT (9.4 - 12.5 SEC) 14.5 H INR (0.90 - 1.17) 1.39 H APTT (25 - 37 SEC) 34 Hematology CBC w Diff MAN DIFF ORDERED WBC (4.8 - 10.8 /CUMM) 34.7 *H RBC (4.70 - 6.10 /CUMM) 4.70 Hgb (14.0 - 18.0 G/DL) 13.5 L Hct (42 - 52 %) 41.0 L MCV (80.0 - 94.0 FL) 87.1 MCH (27.0 - 31.0 PG) 28.8 RDW (11.5 - 14.5 %) 16.3 H Plt Count (130 - 400 /CUMM) 353 MPV (7.4 - 10.4 FL) 8.5 Segmented Neutrophils (42.2 - 75.2 %) 69 Band Neutrophils (0.0 - 5.0 %) 17 H Lymphocytes (20.5 - 51.1 %) 10 L Metamyelocytes (0.0 - 1.0 %) 4 H Nucleated RBCs (0.0 - 0.0 /100WBC) 1 H Platelet Estimate (ADEQUATE) ADEQUATE Anisocytosis 1+ PUBS MCHC (33.0 - 37.0 G/DL) 33.0 Miscellaneous Phlebotomy Draw Site LEFT BRACHIAL Other Body Source Fld Total RBCs Counted (%) 100 07/16 07/15 07/15 0128 2100 1735 Chemistry Sodium (137 - 145 mmol/L) Cancelled 142 Potassium (3.5 - 5.1 mmol/L) Cancelled 4.3 Chloride (98 - 107 mmol/L) Cancelled 108 H Carbon Dioxide (22 - 30 mmol/L) Cancelled 21 L Anion Gap (5 - 16) Cancelled 12 BUN (9 - 20 mg/dL) Cancelled 16 Creatinine (0.7 - 1.2 mg/dL) Cancelled 0.9 Estimated GFR (>60 ml/min) > 60 BUN/Creatinine Ratio Cancelled Glucose (65 - 99 mg/dL) 258 H Lactic Acid (0.7 - 2.1 mmol/L) Cancelled 3.3 H 3.5 H Calcium (8.4 - 10.2 mg/dL) 7.7 L Phosphorus (2.5 - 4.5 mg/dL) 2.7 Magnesium (1.6 - 2.3 mg/dL) 1.5 L Total Bilirubin (0.2 - 1.3 mg/dL) 0.7 AST (17 - 59 U/L) 33 ALT (21 - 72 U/L) 36 Troponin I Cancelled Albumin (3.5 - 5.0 g/dL) 2.3 L Coagulation PT (9.4 - 12.5 SEC) 13.5 H INR (0.90 - 1.17) 1.29 H APTT (25 - 37 SEC) 31 Hematology CBC w Diff MAN DIFF ORDERED WBC (4.8 - 10.8 /CUMM) 27.6 H RBC (4.70 - 6.10 /CUMM) 4.70 Hgb (14.0 - 18.0 G/DL) 13.2 L Hct (42 - 52 %) 40.7 L MCV (80.0 - 94.0 FL) 86.5 MCH (27.0 - 31.0 PG) 28.1 RDW (11.5 - 14.5 %) 16.7 H Plt Count (130 - 400 /CUMM) 350 MPV (7.4 - 10.4 FL) 9.1 Gran % (42.2 - 75.2 %) 76.0 H Lymphocytes % (20.5 - 51.1 %) 21.5 Monocytes % (1.7 - 9.3 %) 1.9 Eosinophils % (0 - 5 %) 0.5 Basophils % (0.0 - 2.0 %) 0.1 Absolute Granulocytes (1.4 - 6.5 /CUMM) 21.0 H Segmented Neutrophils (42.2 - 75.2 %) 70 Band Neutrophils (0.0 - 5.0 %) 12 H Absolute Lymphocytes (1.2 - 3.4 /CUMM) 5.9 H Lymphocytes (20.5 - 51.1 %) 11 L Monocytes (1.7 - 9.3 %) 3 Absolute Monocytes (0.10 - 0.60 /CUMM) 0.5 Eosinophils (0 - 5.0 %) 2 Absolute Eosinophils (0.0 - 0.7 /CUMM) 0.1 Absolute Basophils (0.0 - 0.2 /CUMM) 0 Metamyelocytes (0.0 - 1.0 %) 1 Myelocytes (0 - 0 %) 1 H Platelet Estimate (ADEQUATE) VERIFIED BY SMEAR Normocytic RBCs VERIFIED Normochromic RBCs VERIFIED PUBS MCHC (33.0 - 37.0 G/DL) 32.5 L Other Body Source Fld Total RBCs Counted (%) 100 07/15 1720 Blood Gas pH (7.35 - 7.45 PH) 7.49 H pCO2 (35 - 45 TORR) 23 L pO2 (80 - 100 TORR) 75 L HCO3 (21 - 28 MEQ/L) 17 L ABG O2 Sat (Measured) (>96.0 %) 95.0 L P-50 (Temp Corrected) N Carboxyhemoglobin (1.5 - 5.0 %) 0.4 L O2 Concentration % 50% Temperature (97.0 - 100.0 FARH) 98.4 O2 Delivery Method VM Miscellaneous Phlebotomy Draw Site LEFT RADIAL
--- NOTE | 2017-07-18 14:04 | PN- CRCU ---
Subjective HPI/Critical Care Issues: MAXIMUM TEMPERATURE 100.5. Events of the weekend noted with patient taken back to the OR late on July 15 for worsening physical exam, worrisome for an uncontrolled leak, with suture repair of the perforated duodenal ulcer and placement of a jejunostomy. He spiked to 101.4 postop and 103.8 later on July 16, and his antibiotics were broadened. He was hypotensive, requiring 2 pressors, which he remains on. At present he does not report any specific complaints. Awake and alert and follows commands Making urine on abx Objective Current Medications: Current Medications Sig/Buck Start time Last Medication Dose Route Stop Time Status Admin Acetaminophen 1,000 MG Q6P PRN 07/16 0530 AC 07/16 N/A 1 UNIT IV 0520 Budesonide/ 2 PUF BID 07/09 2200 07/15 Formoterol Fumarate INH 0940 Fat Emulsion 500 ML 1900 07/18 1900 AC Intravenous IV 07/19 185 Fat Emulsion 350 ML 1900 07/17 1900 AC 07/17 Intravenous IV 07/18 185 1920 Fat Emulsion 350 ML 1900 07/16 1900 DC 07/16 Intravenous IV 07/17 1852006 Fentanyl Citrate 1,000 MCG Q10H 07/16 2200 AC 07/18 Dextrose/Water 250 ML IV 0444 Fluconazole 200 MG DAILY 07/18 1000 DC Sodium Chloride 100 ML IV Furosemide 20 MG ONCE ONE 07/18 1000 DC 07/18 IV 07/18 1001 1025 Furosemide 20 MG ONCE ONE 07/17 1600 DC 07/17 IV 07/17 1601 1630 Heparin Sodium 5,000 UNIT Q8 07/10 0138 07/18 (Porcine) SC 0546 Hydrocortisone 50 MG Q8 07/16 1400 AC 07/18 Sodium Succinate IV 0548 Insulin Human Regular 100 UNIT Q9H 07/17 1900 AC 07/18 Sodium Chloride 100 ML IV 1346 Insulin Human Regular 100 UNIT Q12H 07/17 1000 DC 07/17 Sodium Chloride 100 ML IV 07/17 1859 1117 Magnesium Sulfate 1 GM ONCE ONE 07/18 0800 DC 07/18 Dextrose/Water 100 ML IV 07/18 1159 0955 Meropenem 1 GM Q8H 07/16 0200 AC 07/18 IV 0951 Morphine Sulfate 2 MG Q4P PRN 07/14 1145 AC 07/16 IV 0404 Norepinephrine 4 MG Q5H 07/17 1300 AC 07/18 Sodium Chloride 250 ML IV 0949 Octreotide Acetate 500 MCG Q20H 07/15 1400 AC 07/18 Dextrose/Water 500 ML IV 0444 Pantoprazole Sodium 40 MG BID 07/10 1016 07/18 IV 0951 Phenylephrine HCl 40 MG Q3H 07/16 1430 AC 07/18 Sodium Chloride 250 ML IV 1345 Potassium Chloride 20 MEQ ONCE ONE 07/18 0800 DC 07/18 IV 07/18 0801 0818 Total Parenteral 1 UNIT 1900 07/18 1900 AC Nutrition IV 07/19 1859 Total Parenteral 1 UNIT 1900 07/17 1900 AC 07/17 Nutrition IV 07/18 1859 1920 Total Parenteral 1 UNIT 1900 07/16 1900 DC 07/16 Nutrition IV 07/17 1852006 Vancomycin HCl 1,500 MG DAILY 07/16 1000 07/18 Sodium Chloride 250 ML IV 1132 Vital Signs & I&O Last 24 Hrs of Vitals and I&O: Vital Signs Date Time Temp Pulse Resp B/P B/P Pulse O2 O2 Flow FiO2 Mean Ox Delivery Rate 07/18 1200 97 Ventilator 40% 07/18 1130 40 07/18 0949 69 118/54 07/18 0815 45 07/18 0800 100.5 69 22 112/64 98 Ventilator 45% 07/18 0800 98 Ventilator 45% 07/18 0601 45 07/18 0400 98 Ventilator 45% 07/18 0359 45 07/18 0351 100.1 69 22 112/54 07/18 0134 45 07/18 0000 97 Ventilator 45% 07/18 0000 99.8 70 24 128/64 97 Ventilator 45% 07/17 2246 45 07/17 2237 99.5 70 20 119/67 07/17 2022 45 07/17 2000 98 Ventilator 45% 07/17 1805 98.9 69 22 104/58 07/17 1614 45 07/17 1600 98 Ventilator 45% 07/17 1600 98.6 69 17 120/60 98 Ventilator 45% Intake & Output 07/18 1600 07/18 0800 07/18 0000 Intake Total 1703 2042.9 Output Total 1050 3390 Balance 653 -1347.1 Intake, IV 1703 1259.4 Intake, Lipid 116.8 Intake, 666.7 TPN/PPN Number 1 Bowel Movements Output, 120 110 Drainage Output, 120 150 Gastric Drainage Output, Urine 810 3130 Laboratory Tests 07/18 07/18 07/18 0930 0832 0420 Blood Gas pH (7.35 - 7.45 PH) 7.43 pCO2 (35 - 45 TORR) 30 L pO2 (80 - 100 TORR) 100 HCO3 (21 - 28 MEQ/L) 20 L ABG O2 Sat (Measured) (>96.0 %) 97.0 P-50 (Temp Corrected) YES Carboxyhemoglobin (1.5 - 5.0 %) 0.1 L O2 Concentration % 45% Temperature (97.0 - 100.0 FARH) 100.5 H Respiration Rate (BPM) 20 O2 Delivery Method VENT Vent Mode AC Expiratory Pressure (CMH2O/P) 5 Tidal Volume (CC) 600 Chemistry Sodium (137 - 145 mmol/L) 140 Potassium (3.5 - 5.1 mmol/L) 3.7 Chloride (98 - 107 mmol/L) 111 H Carbon Dioxide (22 - 30 mmol/L) 21 L Anion Gap (5 - 16) 9 BUN (9 - 20 mg/dL) 34 H Creatinine (0.7 - 1.2 mg/dL) 1.1 Estimated GFR (>60 ml/min) > 60 Glucose (65 - 99 mg/dL) 162 H Calcium (8.4 - 10.2 mg/dL) 7.2 L Phosphorus (2.5 - 4.5 mg/dL) 2.9 Magnesium (1.6 - 2.3 mg/dL) 1.7 Total Bilirubin (0.2 - 1.3 mg/dL) 0.6 AST (17 - 59 U/L) 31 ALT (21 - 72 U/L) 37 Albumin (3.5 - 5.0 g/dL) 1.5 L Hematology CBC w Diff MAN DIFF ORDERED WBC (4.8 - 10.8 /CUMM) 32.5 *H RBC (4.70 - 6.10 /CUMM) 3.68 L Hgb (14.0 - 18.0 G/DL) 10.4 L Hct (42 - 52 %) 32.0 L MCV (80.0 - 94.0 FL) 87.1 MCH (27.0 - 31.0 PG) 28.3 RDW (11.5 - 14.5 %) 17.4 H Plt Count (130 - 400 /CUMM) 306 MPV (7.4 - 10.4 FL) 8.8 Segmented Neutrophils (42.2 - 75.2 %) 85 H Band Neutrophils (0.0 - 5.0 %) 5 Lymphocytes (20.5 - 51.1 %) 4 L Monocytes (1.7 - 9.3 %) 4 Metamyelocytes (0.0 - 1.0 %) 2 H Platelet Estimate (ADEQUATE) ADEQUATE Polychromasia 1+ Hypochromic-Microcytic 1+ Poikilocytosis 1+ Ovalocytes 1+ PUBS MCHC (33.0 - 37.0 G/DL) 32.5 L Miscellaneous Phlebotomy Draw Site LEFT RADIAL Other Body Source Fld Total RBCs Counted (%) 100 Toxicology Vancomycin Trough (10.0 - 20.0 ug/mL) 7.0 L 07/17 07/17 07/17 07/17 07/17 1145 1141 0700 0530 0415 Blood Gas pH (7.35 - 7.45 PH) 7.33 L pCO2 (35 - 45 TORR) 30 L pO2 (80 - 100 TORR) 109 H HCO3 (21 - 28 MEQ/L) 16 L ABG O2 Sat (Measured) (>96.0 %) 97.0 P-50 (Temp Corrected) Y Carboxyhemoglobin (1.5 - 5.0 %) 0.3 L O2 Concentration % 60% Temperature (97.0 - 100.0 FARH) 99.1 Respiration Rate (BPM) 20 O2 Delivery Method ESPRIT Vent Mode AC Expiratory Pressure (CMH2O/P) 5 Tidal Volume (CC) 600 Chemistry Lactic Acid (0.7 - 2.1 mmol/L) 2.1 2.7 H 3.4 H Miscellaneous Phlebotomy Draw Site LEFT RADIAL Urines Ur Random Creatinine (mg/dL) 61.5 Ur Random Sodium (30 - 90 mmol/L) 26 L Ur Random Potassium (mmol/L) 40.5 Fraction Sodium Excret (<1% %) 0.5 07/175 0 Chemistry Sodium (137 - 145 mmol/L) 140 141 Potassium (3.5 - 5.1 mmol/L) 4.4 5.1 Chloride (98 - 107 mmol/L) 112 H 114 H Carbon Dioxide (22 - 30 mmol/L) 17 L 16 L Anion Gap (5 - 16) 11 11 BUN (9 - 20 mg/dL) 37 H 33 H Creatinine (0.7 - 1.2 mg/dL) 1.6 H 1.7 H Estimated GFR (>60 ml/min) 39 L Glucose (65 - 99 mg/dL) 209 H 236 H Lactic Acid (0.7 - 2.1 mmol/L) 3.7 H Calcium (8.4 - 10.2 mg/dL) 7.4 L 7.0 L Phosphorus (2.5 - 4.5 mg/dL) 4.5 4.0 Magnesium (1.6 - 2.3 mg/dL) 2.5 H 2.0 Total Bilirubin (0.2 - 1.3 mg/dL) 0.6 0.9 AST (17 - 59 U/L) 43 47 ALT (21 - 72 U/L) 31 36 Albumin (3.5 - 5.0 g/dL) 1.5 L 1.5 L Hematology CBC w Diff MAN DIFF ORDERED MAN DIFF ORDERED WBC (4.8 - 10.8 /CUMM) 45.0 *H 46.0 *H RBC (4.70 - 6.10 /CUMM) 4.06 L 4.27 L Hgb (14.0 - 18.0 G/DL) 11.6 L 12.1 L Hct (42 - 52 %) 35.7 L 37.6 L MCV (80.0 - 94.0 FL) 87.7 87.9 MCH (27.0 - 31.0 PG) 28.4 28.3 RDW (11.5 - 14.5 %) 17.3 H 17.5 H Plt Count (130 - 400 /CUMM) 313 348 MPV (7.4 - 10.4 FL) 8.8 9.1 Gran % (42.2 - 75.2 %) 86.1 H 84.6 H Lymphocytes % (20.5 - 51.1 %) 13.4 L 13.0 L Monocytes % (1.7 - 9.3 %) 0.4 L 2.1 Eosinophils % (0 - 5 %) 0 0.1 Basophils % (0.0 - 2.0 %) 0.1 0.2 Absolute Granulocytes (1.4 - 6.5 /CUMM) 38.7 H 38.9 H Segmented Neutrophils (42.2 - 75.2 %) 75 48 Band Neutrophils (0.0 - 5.0 %) 11 H 29 H Absolute Lymphocytes (1.2 - 3.4 /CUMM) 6.0 H 6.0 H Lymphocytes (20.5 - 51.1 %) 11 L 17 L Monocytes (1.7 - 9.3 %) 3 3 Absolute Monocytes (0.10 - 0.60 /CUMM) 0.2 1.0 H Absolute Eosinophils (0.0 - 0.7 /CUMM) 0 0 Absolute Basophils (0.0 - 0.2 /CUMM) 0 0.1 Metamyelocytes (0.0 - 1.0 %) 2 H Myelocytes (0 - 0 %) 1 H Nucleated RBCs (0.0 - 0.0 /100WBC) 1 H Platelet Estimate (ADEQUATE) ADEQUATE ADEQUATE Hypochromic-Microcytic 1+ Anisocytosis 1+ 1+ PUBS MCHC (33.0 - 37.0 G/DL) 32.4 L 32.2 L Toxicology Random Vancomycin (ug/ml) 6.4 07/16 07/16 07/16 1540 1510 1445 Blood Gas pH (7.35 - 7.45 PH) 7.30 *L pCO2 (35 - 45 TORR) 28 L pO2 (80 - 100 TORR) 76 L HCO3 (21 - 28 MEQ/L) 14 L ABG O2 Sat (Measured) (>96.0 %) 93.0 L P-50 (Temp Corrected) N Carboxyhemoglobin (1.5 - 5.0 %) 0.3 L O2 Concentration % 60% Respiration Rate (BPM) 20 O2 Delivery Method VENT Vent Mode AC Expiratory Pressure (CMH2O/P) 5 Tidal Volume (CC) 600 Pressure Support (CMH2O/P) 0 Chemistry Sodium (137 - 145 mmol/L) 141 Potassium (3.5 - 5.1 mmol/L) 5.6 H Chloride (98 - 107 mmol/L) 112 H Carbon Dioxide (22 - 30 mmol/L) 16 L Anion Gap (5 - 16) 13 BUN (9 - 20 mg/dL) 30 H Creatinine (0.7 - 1.2 mg/dL) 1.8 H Estimated GFR (>60 ml/min) 37 L Glucose (65 - 99 mg/dL) 319 H Lactic Acid (0.7 - 2.1 mmol/L) 4.9 H Calcium (8.4 - 10.2 mg/dL) 6.9 L Phosphorus (2.5 - 4.5 mg/dL) 4.4 Magnesium (1.6 - 2.3 mg/dL) 2.0 Total Bilirubin (0.2 - 1.3 mg/dL) 0.7 AST (17 - 59 U/L) 42 ALT (21 - 72 U/L) 37 Albumin (3.5 - 5.0 g/dL) 1.6 L Miscellaneous Phlebotomy Draw Site LEFT RADIAL Urines Urine Color (YEL,AMB,STR) GREEN H Urine Clarity (CLEAR) HAZY H Urine pH (5.0 - 8.0) 5.5 Ur Specific [place] (1.001 - 1.035) 1.025 Urine Protein (NEG,<30 MG/DL) 30 H Urine Ketones (NEG) NEG Urine Nitrite (NEG) NEG Urine Bilirubin (NEG) NEG@ICTO Urine Urobilinogen (0.1 - 1.0 EU/dl) 0.2 Ur Leukocyte Esterase (NEG) NEG Ur Microscopic SEDIMENT EXAMINED Urine RBC (0 - 5 /HPF) 15-25 H Urine WBC (0 - 2 /HPF) 3-5 H Ur Epithelial Cells (NONE,FEW) FEW Urine Bacteria (NEG/NONE) FEW H Granular Casts (NONE /LPF) RARE H Urine Hemoglobin (NEG) LARGE H Urine Glucose (N MG/DL) 100 H Microbiology Date/Time Procedure - Status Source Growth 07/18 1247 Body Fluid Culture - COLB BODY FLUID 07/18 1247 Gram Stain - COLB BODY FLUID 07/18 0430 Respiratory Culture - RES LOWER RESP 07/18 0430 Gram Stain - RES LOWER RESP 07/16 1359 Respiratory Culture - CAN LOWER RESP Cancelled: SPECIMEN NOT RECEIVED IN LABORATORY 07/16 1359 Gram Stain - CAN LOWER RESP Cancelled: SPECIMEN NOT RECEIVED IN LABORATORY 07/16 0642 Blood Culture - CAN BLOOD Cancelled: SPECIMEN NOT RECEIVED IN LABORATORY 07/16 0642 Blood Culture - CAN BLOOD Cancelled: SPECIMEN NOT RECEIVED IN LABORATORY 07/15 2305 Body Fluid Culture - RES BODY FLUID ENTEROBACTER AEROGENES ENTEROCOCCUS 07/15 2305 Gram Stain - RES BODY FLUID 07/15 2300 Body Fluid Culture - CAN BODY FLUID Cancelled: NOT MISC 07/15 2300 Gram Stain - CAN BODY FLUID Cancelled: NOT MISC 07/15 1935 Blood Culture - RES BLOOD 11/10 1930 Blood Culture - RES BLOOD Impression/Plan Impression/Plan Impression/Plan: Afebrile. Intubated on multiple drips Skin reveals no rash. HEENT negative. Neck supple with no adenopathy; right IJ triple-lumen catheter in place, with no inflammation at the site. Lungs decreased breath sounds bilaterally. Heart regular rhythm with no murmur. Abdomen is obese, distended, tender to palpation, Incision noted with a gabriela drain in the rt side and in the left side Extremities Reported right hip incision clean, with no erythema or drainage; uperficial ulcerations over the anterior tibial aspects of both legs, with 1+ edema bilaterally. Neuro is without focality. 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 NPo on octreotide * Severe shock septic on multiple pressors * Hypoxic respiratory failure due to above with no clinical evidence suggestive of pneumonia. * Sig drainage from the gabriela biliary leak much less since pt went back to the or * Significant ischemic heart disease with low ejection fraction high risk for fluid overload. Previous pafib in sinus now with a pacer and AICD. 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 * H/O LIAM was on cpap RECOMMENDATION * COnt vent * Reduce hydrocortizone to q12 and will stop in am if stable * Lasix two doses, check lab * Cont tpn * Strict sugar control with sliding scale * fentanyl * Nothing by mouth * Continue broad-spectrum antibiotics * Intravenous pantoprazole * Heparin subcutaneous * Cardio follow up * Watch for pulm edema Pt critically ill tts 41 mins
[2017-07-18 16:00] VITALS: BP 116/58
--- NOTE | 2017-07-18 17:27 | ULTRASOUND REPORT ---
EXAMINATION: US TRIPLEX UPPER EXTREMITY, RIGHT CLINICAL INFORMATION: Right swelling and edema status-post basilic vein PICC placement. COMPARISON: Right basilic vein PICC placement dated 02/22/2017. TECHNIQUE: Color-flow triplex imaging with spectral analysis and compression Doppler were performed on the right upper extremity. Imaging is somewhat limited secondary to overlapping dressing material. FINDINGS: The right internal jugular, subclavian, axillary, brachial, basilic and cephalic vein segments show normal flow. There is normal compressibility. No deep venous thrombosis is seen. The right basilic vein PICC is noted. IMPRESSION: Normal triplex scan without evidence of deep venous thrombosis involving the right upper extremity.
[2017-07-19] VITALS: BP 100/54
[2017-07-19 05:09] LABS: ABSOLUTE BASOPHIL COUNT 0.1 /CUMM (0.0-0.2); ABSOLUTE EOSINOPHIL COUNT 0 /CUMM (0.0-0.7); ABSOLUTE GRANULOCYTE CT 15.5 /CUMM (1.4-6.5); ABSOLUTE LYMPH COUNT 3.6 /CUMM (1.2-3.4); BASOPHIL % 0.3 % (0.0-2.0); EOSINOPHIL % 0.1 % (0-5); GRANULOCYTE % 76.9 % (42.2-75.2); HEMATOCRIT 27.1 % (42-52); MEAN CORPUSCULAR HGB CONC 32.9 G/DL (33.0-37.0); MEAN CORPUSCULAR VOLUME 85.2 FL (80.0-94.0); MEAN PLATELET VOLUME 8.8 FL (7.4-10.4); PLATELET COUNT 261 /CUMM (130-400); RED BLOOD CELL CT 3.19 /CUMM (4.70-6.10); WHITE BLOOD CELL COUNT 20.1 /CUMM (4.8-10.8)
--- NOTE | 2017-07-19 06:40 | PN- General Surgery ---
See Addendum Subjective Subjective: Pt remains on vent/pressors Objective Vital Signs and I&Os Vital Signs Date Time Temp Pulse Resp B/P B/P Pulse O2 O2 Flow FiO2 Mean Ox Delivery Rate 07/19 0631 40 07/19 0423 69 87/40 07/19 0400 95 Ventilator 40% 07/19 0331 40 07/19 0032 40 07/19 0000 95 Ventilator 40% 07/19 0000 100.2 68 20 100/54 95 Ventilator 40% 07/18 2225 40 07/18 2112 69 89/48 07/18 2023 69 102/55 07/18 2000 95 Ventilator 40% 07/18 1940 40 07/18 1720 40 07/18 1600 100.2 70 24 116/58 96 Ventilator 40% 07/18 1600 96 Ventilator 40% 07/18 1527 69 131/62 07/18 1414 40 07/18 1200 97 Ventilator 40% 07/18 1130 40 07/18 0949 69 118/54 07/18 0815 45 07/18 0800 100.5 69 22 112/64 98 Ventilator 45% 07/18 0800 98 Ventilator 45% Intake & Output 07/19 0800 07/19 0000 07/18 1600 07/18 0800 07/18 0000 07/17 1600 Intake Total 1511.0 1808.0 2575.0 1703 2042.9 2657.0 Output Total 880 1830 1860 1050 3390 1700 Balance 631.0 -22.0 715.0 653 -1347.1 957.0 Intake, IV 746 1049 1770 1703 1259.4 1893 Intake, Lipid 114.0 114.0 120.0 116.8 114.0 Intake, Oral 0 0 0 Intake, 651 645 685 666.7 650 TPN/PPN Number 0 1 1 Bowel Movements Output, 80 80 110 120 110 150 Drainage Output, 200 150 150 120 150 350 Gastric Drainage Output, Urine 600 1600 5302 743 5169 1200 Physical Exam: vented, responsive to stimuli Abd: no appreciable bowel sounds j tube to gravity 2 WILLEM's -6050/80 past three shifts and 50/50 bilious past 2 shifts - latest unrecorded Current Medications: Current Medications Sig/Buck Start time Last Medication Dose Route Stop Time Status Admin Acetaminophen 1,000 MG Q6P PRN 07/16 0530 AC 07/16 N/A 1 UNIT IV 0520 Budesonide/ 2 PUF BID 07/09 2200 AC 07/18 Formoterol Fumarate INH 2145 Fat Emulsion 500 ML 1900 07/18 1900 AC 07/18 Intravenous IV 07/19 1859 1942 Fat Emulsion 350 ML 1900 07/17 1900 DC 07/17 Intravenous IV 07/18 1859 1920 Fentanyl Citrate 1,000 MCG Q10H 07/16 2200 AC 07/19 Dextrose/Water 250 ML IV 0626 Fluconazole 200 MG DAILY 07/18 1000 DC Sodium Chloride 100 ML IV Furosemide 20 MG 1600 07/18 1600 DC 07/18 IV 07/18 1601 1650 Furosemide 20 MG ONCE ONE 07/18 1000 DC 07/18 IV 07/18 1001 1025 Heparin Sodium 5,000 UNIT Q8 07/10 0138 AC 07/19 (Porcine) SC 0626 Hydrocortisone 50 MG Q8 07/16 1400 AC 07/19 Sodium Succinate IV 0626 Insulin Human Regular 100 UNIT Q9H 07/17 1900 AC 07/19 Sodium Chloride 100 ML IV 0117 Magnesium Sulfate 1 GM Q2H 07/18 2045 DC 07/18 Dextrose/Water 100 ML IV 07/19 0044 2208 Magnesium Sulfate 1 GM ONCE ONE 07/18 0800 DC 07/18 Dextrose/Water 100 ML IV 07/18 1159 0955 Meropenem 1 GM Q8H 07/16 0200 AC 07/19 IV 0120 Morphine Sulfate 2 MG Q4P PRN 07/14 1145 AC 07/16 IV 0404 Norepinephrine 4 MG Q5H 07/17 1300 AC 07/19 Sodium Chloride 250 ML IV 0423 Octreotide Acetate 500 MCG Q20H 07/15 1400 AC 07/19 Dextrose/Water 500 ML IV 0422 Pantoprazole Sodium 40 MG BID 07/10 1016 AC 07/18 IV 2114 Phenylephrine HCl 40 MG Q3H 07/16 1430 DC 07/18 Sodium Chloride 250 ML IV 1345 Potassium Chloride 20 MEQ Q1H 07/19 0630 UNVr 07/19 IV 07/19 0731 0633 Potassium Chloride 20 MEQ ONCE ONE 07/18 2045 DC 07/18 IV 07/18 2046 2308 Potassium Chloride 20 MEQ ONCE ONE 07/18 0800 DC 07/18 IV 07/18 0801 0818 Total Parenteral 1 UNIT 1900 07/18 1900 AC 07/18 Nutrition IV 07/19 Total Parenteral 1 UNIT 07/17 DC 07/17 Nutrition IV 07/18 Vancomycin HCl 1,500 MG DAILY 07/16 1000 AC 07/18 Sodium Chloride 250 ML IV 1132 Results Last 48 Hours of Labs: Laboratory Tests 07/19 07/19 0610 0430 Blood Gas pH (7.35 - 7.45 PH) 7.52 H pCO2 (35 - 45 TORR) 30 L pO2 (80 - 100 TORR) 87 HCO3 (21 - 28 MEQ/L) 24 ABG O2 Sat (Measured) (>96.0 %) 97.0 P-50 (Temp Corrected) N Carboxyhemoglobin (1.5 - 5.0 %) 0.3 L O2 Concentration % .40 Respiration Rate (BPM) 20 O2 Delivery Method VENT Vent Mode A/C Expiratory Pressure (CMH2O/P) 5 Tidal Volume (CC) 600 Chemistry Sodium (137 - 145 mmol/L) 141 Potassium (3.5 - 5.1 mmol/L) 3.5 Chloride (98 - 107 mmol/L) 110 H Carbon Dioxide (22 - 30 mmol/L) 24 Anion Gap (5 - 16) 8 BUN (9 - 20 mg/dL) 31 H Creatinine (0.7 - 1.2 mg/dL) 1.0 Estimated GFR (>60 ml/min) > 60 Glucose (65 - 99 mg/dL) 125 H Calcium (8.4 - 10.2 mg/dL) 7.2 L Phosphorus (2.5 - 4.5 mg/dL) 2.0 L Magnesium (1.6 - 2.3 mg/dL) 2.0 Total Bilirubin (0.2 - 1.3 mg/dL) 0.5 AST (17 - 59 U/L) 38 ALT (21 - 72 U/L) 37 Albumin (3.5 - 5.0 g/dL) 1.4 L Hematology CBC w Diff MAN DIFF ORDERED WBC (4.8 - 10.8 /CUMM) 20.1 H RBC (4.70 - 6.10 /CUMM) 3.19 L Hgb (14.0 - 18.0 G/DL) 8.9 L Hct (42 - 52 %) 27.1 L MCV (80.0 - 94.0 FL) 85.2 MCH (27.0 - 31.0 PG) 28.0 RDW (11.5 - 14.5 %) 17.0 H Plt Count (130 - 400 /CUMM) 261 MPV (7.4 - 10.4 FL) 8.8 Gran % (42.2 - 75.2 %) 76.9 H Lymphocytes % (20.5 - 51.1 %) 17.7 L Monocytes % (1.7 - 9.3 %) 5.0 Eosinophils % (0 - 5 %) 0.1 Basophils % (0.0 - 2.0 %) 0.3 Absolute Granulocytes (1.4 - 6.5 /CUMM) 15.5 H Segmented Neutrophils (42.2 - 75.2 %) 74 Band Neutrophils (0.0 - 5.0 %) 7 H Absolute Lymphocytes (1.2 - 3.4 /CUMM) 3.6 H Lymphocytes (20.5 - 51.1 %) 14 L Monocytes (1.7 - 9.3 %) 5 Absolute Monocytes (0.10 - 0.60 /CUMM) 1.0 H Absolute Eosinophils (0.0 - 0.7 /CUMM) 0 Absolute Basophils (0.0 - 0.2 /CUMM) 0.1 Nucleated RBCs (0.0 - 0.0 /100WBC) 3 H Platelet Estimate (ADEQUATE) ADEQUATE Polychromasia 1+ Poikilocytosis 1+ Anisocytosis 1+ Stomatocytes 1+ PUBS MCHC (33.0 - 37.0 G/DL) 32.9 L Miscellaneous Phlebotomy Draw Site LEFT BRACHIAL 07/18 07/18 07/18 1840 0930 0832 Blood Gas pH (7.35 - 7.45 PH) 7.43 pCO2 (35 - 45 TORR) 30 L pO2 (80 - 100 TORR) 100 HCO3 (21 - 28 MEQ/L) 20 L ABG O2 Sat (Measured) (>96.0 %) 97.0 P-50 (Temp Corrected) YES Carboxyhemoglobin (1.5 - 5.0 %) 0.1 L O2 Concentration % 45% Temperature (97.0 - 100.0 FARH) 100.5 H Respiration Rate (BPM) 20 O2 Delivery Method VENT Vent Mode AC Expiratory Pressure (CMH2O/P) 5 Tidal Volume (CC) 600 Chemistry Sodium (137 - 145 mmol/L) 140 Potassium (3.5 - 5.1 mmol/L) 3.5 Chloride (98 - 107 mmol/L) 109 H Carbon Dioxide (22 - 30 mmol/L) 23 Anion Gap (5 - 16) 8 BUN (9 - 20 mg/dL) 31 H Creatinine (0.7 - 1.2 mg/dL) 1.0 Estimated GFR (>60 ml/min) > 60 Glucose (65 - 99 mg/dL) 142 H Calcium (8.4 - 10.2 mg/dL) 7.2 L Phosphorus (2.5 - 4.5 mg/dL) 2.4 L Magnesium (1.6 - 2.3 mg/dL) 1.7 Total Bilirubin (0.2 - 1.3 mg/dL) 0.6 AST (17 - 59 U/L) 39 ALT (21 - 72 U/L) 38 Albumin (3.5 - 5.0 g/dL) 1.6 L Miscellaneous Phlebotomy Draw Site LEFT RADIAL Toxicology Vancomycin Trough (10.0 - 20.0 ug/mL) 7.0 L 07/18 07/17 07/17 07/17 0420 1145 1141 0700 Chemistry Sodium (137 - 145 mmol/L) 140 Potassium (3.5 - 5.1 mmol/L) 3.7 Chloride (98 - 107 mmol/L) 111 H Carbon Dioxide (22 - 30 mmol/L) 21 L Anion Gap (5 - 16) 9 BUN (9 - 20 mg/dL) 34 H Creatinine (0.7 - 1.2 mg/dL) 1.1 Estimated GFR (>60 ml/min) > 60 Glucose (65 - 99 mg/dL) 162 H Lactic Acid (0.7 - 2.1 mmol/L) 2.1 2.7 H Calcium (8.4 - 10.2 mg/dL) 7.2 L Phosphorus (2.5 - 4.5 mg/dL) 2.9 Magnesium (1.6 - 2.3 mg/dL) 1.7 Total Bilirubin (0.2 - 1.3 mg/dL) 0.6 AST (17 - 59 U/L) 31 ALT (21 - 72 U/L) 37 Albumin (3.5 - 5.0 g/dL) 1.5 L Hematology CBC w Diff MAN DIFF ORDERED WBC (4.8 - 10.8 /CUMM) 32.5 *H RBC (4.70 - 6.10 /CUMM) 3.68 L Hgb (14.0 - 18.0 G/DL) 10.4 L Hct (42 - 52 %) 32.0 L MCV (80.0 - 94.0 FL) 87.1 MCH (27.0 - 31.0 PG) 28.3 RDW (11.5 - 14.5 %) 17.4 H Plt Count (130 - 400 /CUMM) 306 MPV (7.4 - 10.4 FL) 8.8 Segmented Neutrophils (42.2 - 75.2 %) 85 H Band Neutrophils (0.0 - 5.0 %) 5 Lymphocytes (20.5 - 51.1 %) 4 L Monocytes (1.7 - 9.3 %) 4 Metamyelocytes (0.0 - 1.0 %) 2 H Platelet Estimate (ADEQUATE) ADEQUATE Polychromasia 1+ Hypochromic-Microcytic 1+ Poikilocytosis 1+ Ovalocytes 1+ PUBS MCHC (33.0 - 37.0 G/DL) 32.5 L Other Body Source Fld Total RBCs Counted (%) 100 Urines Ur Random Creatinine (mg/dL) 61.5 Ur Random Sodium (30 - 90 mmol/L) 26 L Ur Random Potassium (mmol/L) 40.5 Fraction Sodium Excret (<1% %) 0.5 Assessment/Plan Assessment/Plan 76yo male pod 3 s/p return to OR, ex lap, repair duodonel ulcer Continue WILLEM/J tube NGT sutured in place Medical management
--- NOTE | 2017-07-19 06:54 | PN- Resident CRCU ---
Subjective HPI/CRCU Issues: Current issues - * Duodenal perforation status post patch repair(07/09/2017),drain malpositioned leading to uncontrolled leak taken to OR for washout on 07/15/2017 f/b septicemia and shock, jejunostomy tube in place -blood culture is growing - enterobacter aerogenes and enterococcus, growing VRE * Acute on Chronic kidney failure, - ATN and contrast induced nephropathy * Uncontrolled DM, secondary to Sepsis, pressors and octreotide on insulin drip * On ventilator for acute respiratory failure * NSVT * Ansarca -on TPN PMH - * IHD,CABG, LVEF -35% * AF, was on tykosyn * Hx of AICD * Type -2 DM * Hx of CKD * Hx of ECSWL * Hx of PUD * Hx of recent 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 with prolonged antibiotic,s /p post removal in early 2016 * Hyperlipidemia * LIAM 24 Hour Events: 24 Hour Events: 07/14 07/15 07/16 07/17 07/18 07/19 Tmax 99.0 101.4 103.8 100.4 100.5 BP 140/53 108/61 93/53 119/58 91/47 pressors NE,PE,V NE,PE NE,PE NE intake 3985 9188 8736 5903 5774 output 6515 3985 2135 6150 4570 JP1 800 1675 325 250 190 JP2 100 200 130 80 NJ tube 400 670 WBC 15.7 27.6 48.3 45.0 32.5 20.1 Lactic acid 3.5 4.9 2.7 2.1 HCO3 17 14 16 20 24 Cr 1.0 0.9 1.8 1.6 1.1 1.0 antibiotics unasyn unasyn marine,vanco,fluc Merop,vanco,flu marine, vanco marine Insulin drip - - Y Y Y Y Hydrocort - - 100MG, 50MG X8 50MG X 8 50MG X 8 - Objective Vital Signs & I&O Last 8 Hrs of Vitals and I&O: Intake & Output 07/19 1600 Intake Total 1540.0 Output Total 1250 Balance 290.0 Intake, IV 740 Intake, Lipid 120.0 Intake, 680 TPN/PPN Number 1 Bowel Movements Output, 140 Drainage Output, 110 Gastric Drainage Output, Urine 1000 Exam General Appearance: alert, awake, comfortable, intubated, obese Head: atraumatic, normal appearance Ears, Nose, Throat: normal pharynx Neck: normal inspection, supple Respiratory: no respiratory distress, quiet respiration, lungs clear, decreased breath sounds Cardiovascular: regular rate/rhythm, edema Gastrointestinal: distention, absent bowel sound, have J tube abd WILLEM-1 and WILLEM-2 drain, distended abdoman, no tenderness Extremities: generalized anasarca,no pitting edema Weaning Parameters NIF: 21 Minute Volume: 11.5 Resp rate: 22 Vt: 478 Heart Rate: 76 Weaning Schedule Start Time: 0909 Minute Volume: 12.3 Resp Rate: 25 Vt: 594 Heart Rate: 76 End Time: 1210 Minute Volume: 11.8 Resp Rate: 22 Vt: 604 Heart Rate: 69 PICC Site: right upper limb Current Medications: Current Medications Sig/Buck Start time Last Medication Dose Route Stop Time Status Admin Acetaminophen 1,000 MG Q6P PRN 07/16 0530 07/16 N/A 1 UNIT IV 0520 Budesonide/ 2 PUF BID 07/09 2200 07/19 Formoterol Fumarate INH 0842 Fat Emulsion 350 ML 1900 07/19 1900 Intravenous IV 07/20 1859 Fat Emulsion 500 ML 1900 07/18 1900 07/18 Intravenous IV 07/19 1859 1942 Fat Emulsion 350 ML 1900 07/17 190 DE 07/17 Intravenous IV 07/18 1859 1920 Fentanyl Citrate 1,000 MCG Q10H 07/16 2200 07/19 Dextrose/Water 250 ML IV 0626 Furosemide 20 MG 7:30 AM, & 4:30 PM 07/19 1630 IV Furosemide 20 MG ONCE ONE 07/19 1200 DC 07/19 IV 07/19 1201 1215 Furosemide 20 MG 1600 07/18 1600 DE 07/18 IV 07/18 1601 1650 Heparin Sodium 5,000 UNIT Q8 07/10 0138 07/19 (Porcine) SC 1406 Hydrocortisone 50 MG Q12 07/19 1000 DC Sodium Succinate IV Hydrocortisone 50 MG Q8 07/16 1400 DC 07/19 Sodium Succinate IV 0626 Insulin Human Regular 100 UNIT Q16H 07/19 1100 AC 07/19 Sodium Chloride 100 ML IV 1406 Insulin Human Regular 100 UNIT Q9H 07/17 1900 DC 07/19 Sodium Chloride 100 ML IV 0117 Magnesium Sulfate 1 GM Q2H 07/18 2045 DC 07/18 Dextrose/Water 100 ML IV 07/19 0044 2208 Meropenem 1 GM Q8H 07/16 0200 AC 07/19 IV 0950 Morphine Sulfate 2 MG Q4P PRN 07/14 1145 AC 07/16 IV 0404 Norepinephrine 4 MG Q16H 07/19 2000 AC Sodium Chloride 250 ML IV Norepinephrine 4 MG Q5H 07/17 1300 AC 07/19 Sodium Chloride 250 ML IV 07/19 1959 0423 Octreotide Acetate 500 MCG Q20H 07/15 1400 AC 07/19 Dextrose/Water 500 ML IV 0422 Pantoprazole Sodium 40 MG BID 07/10 1016 AC 07/19 IV 0948 Phenylephrine HCl 40 MG Q3H 07/16 1430 DC 07/18 Sodium Chloride 250 ML IV 1345 Potassium Chloride 20 MEQ Q1H 07/19 1200 CAN IV 07/19 1301 Potassium Chloride 20 MEQ Q1H 07/19 0630 DC 07/19 IV 07/19 0731 0743 Potassium Chloride 20 MEQ ONCE ONE 07/18 2045 DC 07/18 IV 07/18 2046 2308 Total Parenteral 1 UNIT 1900 07/19 1900 AC Nutrition IV 07/20 1859 Total Parenteral 1 UNIT 1900 07/18 1900 AC 07/18 Nutrition IV 07/19 1859 1942 Total Parenteral 1 UNIT 1900 07/17 1900 DC 07/17 Nutrition IV 07/18 1859 1920 Vancomycin HCl 1,500 MG DAILY 07/16 1000 DC 07/18 Sodium Chloride 250 ML IV 1132 Impression/Plan Impression/Problem List Impression: Duodenal perforation status post patch repair(07/09/2017),drain malpositioned leading to uncontrolled leak taken to OR for washout on 07/15/2017 f/b septicemia and shock;jejunostomy tube in place -blood culture is growing - enterobacter aerogenes and enterococcus, VRE in body fluids * We will continue Meropenem and stopped Vancomycin due to VRE. * Stool is positive for hemoccult blood, we will recheck CBC and ICU bundle in evening. * Strict intake output charting * Vitals every 4 hrly * We will send WILLEM drain fluid for culture and will follow it. * Continue to taper vasopressors - On PE,NE. We will taper PE first. * Continue fentanyl drip for sedation Uncontrolled DM, secondary to Sepsis, pressors and octreotide * Following Dr Shemar hinojosawi * Will continue Insulin drip * Target Blood sugar 140 -180. * Discussed with surgery - continue Octreotide Acute respiratory failure due to sepsis and shock - * On ventilator -AC,RR20,PEEP-5 ,FIO2 40, TV-600 under fantanyl sedation - we will try to wean sedation and give trial for weaning and than extubation. CAD,CABG,AICD, NSVT - * He had an episode on NSVT, called Dr Sanchez, will follow [facility]. Ansarca, right arm swelling and decreased peripheral pulsation - albumin -1.4 * will give inj lasix 20mg iv bid if BP allow. * Color doppler of right upper arm was negative for DVT. * Continue TPN Dyselectrolytemia - Low K, Low Mg * Supplemented in TPN Acute on chronic Kidney disease -Cr 1.1 - possible ATN/contrast induced nephropathy -recovering * We will continue strict I/O charting. * Avoid nephrotoxins * will follow ICU bundle Nutrition - On TPN/Lipids - 75U on insulin Code status -Full code DVT prophylaxis - Heparin/ALPS Problem List: 1. Septic shock 2. Duodenal ulcer with perforation Pain Ratin Tomorrow's Labs & Rationales: CBC,ICU bundle, CXR, ABG -tmr for f/u Plan DVT/Prophylaxis: mechanical, pharmacological
[2017-07-19 08:00] VITALS: BP 98/62
--- NOTE | 2017-07-19 08:21 | PN- Diabetes ---
Assessment/Plan Assessment: 76-year-old male with Hx of CAD with low ejection fraction, atrial fibrillation, AICD, previous infection of hip with prolonged antibiotic, history of peptic ulcer disease, diabetes and renal stone, was admitted for perforation of duodenum now with septic shock in ICU. He was on 3 pressors, TPN, octreotide drip and bicarb drip. His BP remained low and stress dose of steroid was initiated despite his am cortisol was 24.8. His glucose level was in the 300s. Insulin drip was initiated. Currently he is still on one pressors, TPN, Hydrocortisone and octreotide drip. On 07/16/2017, 36 units of insulin was added to TPN ( 12.5% dextrose x 2100 ml/ 24 hours). On 07/17/2017, 50 units of insulin was added to the TPN. On 2016, 75 units of insulin was added to TPN. Overnight, he has been on insulin drip at 10 units per hour and his FSGs were between 130 and 180. Plan: 1. add insulin 100 units to TPN today ( 12.5% x 2100 ml/24 hours); 2. continue insulin drip; monitor FSG every one hour and titrate the insulin drip rate accordingly to keep glucose level between 140 and 180 mg/dl. any questions, please contact me. will follow. Subjective Subjective: patient remains intubated. Objective Last 24 Hrs of Vital Signs/I&O Vital Signs Date Time Temp Pulse Resp B/P B/P Pulse O2 O2 Flow FiO2 Mean Ox Delivery Rate 07/19 0631 40 07/19 0423 69 87/40 07/19 0400 95 Ventilator 40% 07/19 0331 40 07/19 0032 40 07/19 0000 95 Ventilator 40% 07/19 0000 100.2 68 20 100/54 95 Ventilator 40% 07/18 2225 40 07/18 2112 69 89/48 07/183 69 102/55 07/18 2000 95 Ventilator 40% 07/18 1940 40 07/18 1720 40 07/18 1600 100.2 70 24 116/58 96 Ventilator 40% 07/18 1600 96 Ventilator 40% 07/18 1527 69 131/62 07/18 1414 40 07/18 1200 97 Ventilator 40% 07/18 1130 40 07/18 0949 69 118/54 Intake & Output 07/19 1600 07/19 0800 07/19 0000 Intake Total 1511.0 1808.0 Output Total 880 1830 Balance 631.0 -22.0 Intake, IV 746 1049 Intake, Lipid 114.0 114.0 Intake, Oral 0 0 Intake, 651 645 TPN/PPN Number 0 Bowel Movements Output, 80 80 Drainage Output, 200 150 Gastric Drainage Output, Urine 600 1600 Findings Pertinent Lab/Les Results: Laboratory Tests 07/19 07/19 0610 0430 Blood Gas pH (7.35 - 7.45 PH) 7.52 H pCO2 (35 - 45 TORR) 30 L pO2 (80 - 100 TORR) 87 HCO3 (21 - 28 MEQ/L) 24 ABG O2 Sat (Measured) (>96.0 %) 97.0 P-50 (Temp Corrected) N Carboxyhemoglobin (1.5 - 5.0 %) 0.3 L O2 Concentration % .40 Respiration Rate (BPM) 20 O2 Delivery Method VENT Vent Mode A/C Expiratory Pressure (CMH2O/P) 5 Tidal Volume (CC) 600 Chemistry Sodium (137 - 145 mmol/L) 141 Potassium (3.5 - 5.1 mmol/L) 3.5 Chloride (98 - 107 mmol/L) 110 H Carbon Dioxide (22 - 30 mmol/L) 24 Anion Gap (5 - 16) 8 BUN (9 - 20 mg/dL) 31 H Creatinine (0.7 - 1.2 mg/dL) 1.0 Estimated GFR (>60 ml/min) > 60 Glucose (65 - 99 mg/dL) 125 H Calcium (8.4 - 10.2 mg/dL) 7.2 L Phosphorus (2.5 - 4.5 mg/dL) 2.0 L Magnesium (1.6 - 2.3 mg/dL) 2.0 Total Bilirubin (0.2 - 1.3 mg/dL) 0.5 AST (17 - 59 U/L) 38 ALT (21 - 72 U/L) 37 Albumin (3.5 - 5.0 g/dL) 1.4 L Hematology CBC w Diff MAN DIFF ORDERED WBC (4.8 - 10.8 /CUMM) 20.1 H RBC (4.70 - 6.10 /CUMM) 3.19 L Hgb (14.0 - 18.0 G/DL) 8.9 L Hct (42 - 52 %) 27.1 L MCV (80.0 - 94.0 FL) 85.2 MCH (27.0 - 31.0 PG) 28.0 RDW (11.5 - 14.5 %) 17.0 H Plt Count (130 - 400 /CUMM) 261 MPV (7.4 - 10.4 FL) 8.8 Gran % (42.2 - 75.2 %) 76.9 H Lymphocytes % (20.5 - 51.1 %) 17.7 L Monocytes % (1.7 - 9.3 %) 5.0 Eosinophils % (0 - 5 %) 0.1 Basophils % (0.0 - 2.0 %) 0.3 Absolute Granulocytes (1.4 - 6.5 /CUMM) 15.5 H Segmented Neutrophils (42.2 - 75.2 %) 74 Band Neutrophils (0.0 - 5.0 %) 7 H Absolute Lymphocytes (1.2 - 3.4 /CUMM) 3.6 H Lymphocytes (20.5 - 51.1 %) 14 L Monocytes (1.7 - 9.3 %) 5 Absolute Monocytes (0.10 - 0.60 /CUMM) 1.0 H Absolute Eosinophils (0.0 - 0.7 /CUMM) 0 Absolute Basophils (0.0 - 0.2 /CUMM) 0.1 Nucleated RBCs (0.0 - 0.0 /100WBC) 3 H Platelet Estimate (ADEQUATE) ADEQUATE Polychromasia 1+ Poikilocytosis 1+ Anisocytosis 1+ Stomatocytes 1+ PUBS MCHC (33.0 - 37.0 G/DL) 32.9 L Miscellaneous Phlebotomy Draw Site LEFT BRACHIAL 07/18 07/18 07/18 7200 0930 0832 Blood Gas pH (7.35 - 7.45 PH) 7.43 pCO2 (35 - 45 TORR) 30 L pO2 (80 - 100 TORR) 100 HCO3 (21 - 28 MEQ/L) 20 L ABG O2 Sat (Measured) (>96.0 %) 97.0 P-50 (Temp Corrected) YES Carboxyhemoglobin (1.5 - 5.0 %) 0.1 L O2 Concentration % 45% Temperature (97.0 - 100.0 FARH) 100.5 H Respiration Rate (BPM) 20 O2 Delivery Method VENT Vent Mode AC Expiratory Pressure (CMH2O/P) 5 Tidal Volume (CC) 600 Chemistry Sodium (137 - 145 mmol/L) 140 Potassium (3.5 - 5.1 mmol/L) 3.5 Chloride (98 - 107 mmol/L) 109 H Carbon Dioxide (22 - 30 mmol/L) 23 Anion Gap (5 - 16) 8 BUN (9 - 20 mg/dL) 31 H Creatinine (0.7 - 1.2 mg/dL) 1.0 Estimated GFR (>60 ml/min) > 60 Glucose (65 - 99 mg/dL) 142 H Calcium (8.4 - 10.2 mg/dL) 7.2 L Phosphorus (2.5 - 4.5 mg/dL) 2.4 L Magnesium (1.6 - 2.3 mg/dL) 1.7 Total Bilirubin (0.2 - 1.3 mg/dL) 0.6 AST (17 - 59 U/L) 39 ALT (21 - 72 U/L) 38 Albumin (3.5 - 5.0 g/dL) 1.6 L Miscellaneous Phlebotomy Draw Site LEFT RADIAL Toxicology Vancomycin Trough (10.0 - 20.0 ug/mL) 7.0 L
--- NOTE | 2017-07-19 09:00 | RADIOLOGY REPORT ---
EXAMINATION: CR PORTABLE CHEST CLINICAL INFORMATION: Peritonitis, shock, on pressors. On ventilator. To see signs of fluid overload. COMPARISON: Chest x-ray dated 07/18/2017 and several prior exams. TECHNIQUE: Portable AP semierect view of the chest was obtained. FINDINGS: Endotracheal tube tip approximately 5 cm above the kika. Enteric tube courses into the abdomen with tip not included. Right atrial pacer lead and right ventricular ICD lead unchanged. Right subclavian PICC line tip probably at the cavoatrial junction, poorly visualized. Median sternotomy wires again seen. Multiple EKG leads overlie the chest. Cardiomediastinal silhouette is enlarged, unchanged. Low lung volumes are again noted with bibasilar opacities, left greater than right, consistent with small effusion and atelectasis. No evidence of pulmonary edema or central vascular congestion. No pneumothorax. Bony structures unremarkable. IMPRESSION: 1. Lines and tubes in place as discussed above. 2. No significant change in bibasilar opacities, left greater than right, consistent with small effusions and atelectasis. 3. No evidence of pulmonary edema.
--- NOTE | 2017-07-19 09:59 | PN- CRCU ---
Subjective HPI/Critical Care Issues: Still febrile Low grade Maintaining BP on nor epi Awake and alert Objective Current Medications: Current Medications Sig/Buck Start time Last Medication Dose Route Stop Time Status Admin Acetaminophen 1,000 MG Q6P PRN 07/16 0530 AC 07/16 N/A 1 UNIT IV 0520 Budesonide/ 2 PUF BID 07/09 2200 AC 07/19 Formoterol Fumarate INH 0842 Fat Emulsion 350 ML 1900 07/19 1900 AC Intravenous IV 07/20 185 Fat Emulsion 500 ML 1900 07/18 1900 AC 07/18 Intravenous IV 07/19 1859 1942 Fat Emulsion 350 ML 1900 07/17 1900 DC 07/17 Intravenous IV 07/18 1859 1920 Fentanyl Citrate 1,000 MCG Q10H 07/16 2200 AC 07/19 Dextrose/Water 250 ML IV 0626 Fluconazole 200 MG DAILY 07/18 1000 DC Sodium Chloride 100 ML IV Furosemide 20 MG 1600 07/18 1600 DC 07/18 IV 07/18 1601 1650 Furosemide 20 MG ONCE ONE 07/18 1000 DC 07/18 IV 07/18 1001 1025 Heparin Sodium 5,000 UNIT Q8 07/10 0138 AC 07/19 (Porcine) SC 0626 Hydrocortisone 50 MG Q12 07/19 1000 AC Sodium Succinate IV Hydrocortisone 50 MG Q8 07/16 1400 DC 07/19 Sodium Succinate IV 0626 Insulin Human Regular 100 UNIT Q9H 07/17 1900 AC 07/19 Sodium Chloride 100 ML IV 0117 Magnesium Sulfate 1 GM Q2H 07/18 2045 DC 07/18 Dextrose/Water 100 ML IV 07/19 0044 2208 Magnesium Sulfate 1 GM ONCE ONE 07/18 0800 DC 07/18 Dextrose/Water 100 ML IV 07/18 1159 0955 Meropenem 1 GM Q8H 07/16 0200 AC 07/19 IV 0950 Morphine Sulfate 2 MG Q4P PRN 07/14 1145 AC 07/16 IV 0404 Norepinephrine 4 MG Q5H 07/17 1300 AC 07/19 Sodium Chloride 250 ML IV 0423 Octreotide Acetate 500 MCG Q20H 07/15 1400 AC 07/19 Dextrose/Water 500 ML IV 0422 Pantoprazole Sodium 40 MG BID 07/10 1016 AC 07/19 IV 0948 Phenylephrine HCl 40 MG Q3H 07/16 1430 DC 07/18 Sodium Chloride 250 ML IV 1345 Potassium Chloride 20 MEQ Q1H 07/19 0630 DC 07/19 IV 07/19 0731 0743 Potassium Chloride 20 MEQ ONCE ONE 07/18 2045 DC 07/18 IV 07/18 2046 2308 Total Parenteral 1 UNIT 1900 07/19 190 AC Nutrition IV 07/20 185 Total Parenteral 1 UNIT 1900 07/18 1900 AC 07/18 Nutrition IV 07/19 1859 194 Total Parenteral 1 UNIT 1900 07/17 190 DC 07/17 Nutrition IV 07/18 1859 192 Vancomycin HCl 1,500 MG DAILY 07/16 1000 AC 07/18 Sodium Chloride 250 ML IV 1132 Vital Signs & I&O Last 24 Hrs of Vitals and I&O: Vital Signs Date Time Temp Pulse Resp B/P B/P Pulse O2 O2 Flow FiO2 Mean Ox Delivery Rate 07/19 0837 40 07/19 0800 99.8 69 22 98/62 96 Ventilator 40% 07/19 0800 96 Ventilator 40% 07/19 0631 40 07/19 0423 69 87/40 07/19 0400 95 Ventilator 40% 07/19 0331 40 07/19 0032 40 07/19 0000 95 Ventilator 40% 07/19 0000 100.2 68 20 100/54 95 Ventilator 40% 07/18 2225 40 07/18 2112 69 89/48 07/18 2023 69 102/55 07/18 2000 95 Ventilator 40% 07/18 1940 40 07/18 1720 40 07/18 1600 100.2 70 24 116/58 96 Ventilator 40% 07/18 1600 96 Ventilator 40% 07/18 1527 69 131/62 07/18 1414 40 07/18 1200 97 Ventilator 40% 07/18 1130 40 Intake & Output 07/19 1600 07/19 0800 07/19 0000 Intake Total 1511.0 1808.0 Output Total 880 1830 Balance 631.0 -22.0 Intake, IV 746 1049 Intake, Lipid 114.0 114.0 Intake, Oral 0 0 Intake, 651 645 TPN/PPN Number 0 Bowel Movements Output, 80 80 Drainage Output, 200 150 Gastric Drainage Output, Urine 600 1600 Impression/Plan Impression/Plan Impression/Plan: Afebrile. Intubated on multiple drips Skin reveals no rash. HEENT negative. Neck supple with no adenopathy; right IJ triple-lumen catheter in place, with no inflammation at the site. Lungs decreased breath sounds bilaterally. Heart regular rhythm with no murmur. Abdomen is obese, distended, tender to palpation, Incision noted with a gabriela drain in the rt side and in the left side Extremities Reported right hip incision clean, with no erythema or drainage; uperficial ulcerations over the anterior tibial aspects of both legs, with 1+ edema bilaterally. Neuro is without focality. 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 NPo on octreotide * Severe shock septic on multiple pressors * Hypoxic respiratory failure due to above with no clinical evidence suggestive of pneumonia. * Sig drainage from the gabriela biliary leak much less since pt went back to the or * Significant ischemic heart disease with low ejection fraction high risk for fluid overload. Previous pafib in sinus now with a pacer and AICD. 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 * H/O LIAM was on cpap RECOMMENDATION * COnt vent, start psv trials, wean norepi for map of 65 * Dc hydrocortizone after this ams dose * Lasix two doses today to keep pt even if able, check lab daily and keep k more than 4 and mag more than 1.8 * Cont tpn * Strict sugar control with insulin drip * fentanyl, can reduce the dose today * Nothing by mouth * Continue broad-spectrum antibiotics * Intravenous pantoprazole * Heparin subcutaneous * Cardio follow up * Watch for pulm edema Pt critically ill tts 40 mins
--- NOTE | 2017-07-19 10:47 | PN- Infect Dx ---
Subjective Subjective: MAXIMUM TEMPERATURE 100.5 on steroids. He does note abdominal discomfort. Objective Last 24 Hrs of Vital Signs/I&O Vital Signs Date Time Temp Pulse Resp B/P B/P Pulse O2 O2 Flow FiO2 Mean Ox Delivery Rate 07/19 0837 40 07/19 0800 99.8 69 22 98/62 96 Ventilator 40% 07/19 0800 96 Ventilator 40% 07/19 0631 40 07/19 0423 69 87/40 07/19 0400 95 Ventilator 40% 07/19 0331 40 07/19 0032 40 07/19 0000 95 Ventilator 40% 07/19 0000 100.2 68 20 100/54 95 Ventilator 40% 07/18 2225 40 07/18 2112 69 89/48 07/18 2023 69 102/55 07/18 2000 95 Ventilator 40% 07/18 1940 40 07/18 1720 40 07/18 1600 100.2 70 24 116/58 96 Ventilator 40% 07/18 1600 96 Ventilator 40% 07/18 1527 69 131/62 07/18 1414 40 07/18 1200 97 Ventilator 40% 07/18 1130 40 Intake & Output 07/19 1600 07/19 0800 07/19 0000 Intake Total 1511.0 1808.0 Output Total 880 1830 Balance 631.0 -22.0 Intake, IV 746 1049 Intake, Lipid 114.0 114.0 Intake, Oral 0 0 Intake, 651 645 TPN/PPN Number 0 Bowel Movements Output, 80 80 Drainage Output, 200 150 Gastric Drainage Output, Urine 600 1600 Physical Exam Other Physical Findings: He is awake and alert on the ventilator in no acute distress Lungs are clear Heart regular rhythm with no murmur Abdomen is distended, mildly tender to palpation, with positive bowel sounds; WILLEM drains remain in place, still with significant output Extremities right upper extremity edema persists; PICC remains in place in the right upper extremity with no inflammation at the site Duvall catheter remains in place Results Last 24 Hours of Lab Results: Laboratory Tests 07/19 07/19 0610 0430 Blood Gas pH (7.35 - 7.45 PH) 7.52 H pCO2 (35 - 45 TORR) 30 L pO2 (80 - 100 TORR) 87 HCO3 (21 - 28 MEQ/L) 24 ABG O2 Sat (Measured) (>96.0 %) 97.0 P-50 (Temp Corrected) N Carboxyhemoglobin (1.5 - 5.0 %) 0.3 L O2 Concentration % .40 Respiration Rate (BPM) 20 O2 Delivery Method VENT Vent Mode A/C Expiratory Pressure (CMH2O/P) 5 Tidal Volume (CC) 600 Chemistry Sodium (137 - 145 mmol/L) 141 Potassium (3.5 - 5.1 mmol/L) 3.5 Chloride (98 - 107 mmol/L) 110 H Carbon Dioxide (22 - 30 mmol/L) 24 Anion Gap (5 - 16) 8 BUN (9 - 20 mg/dL) 31 H Creatinine (0.7 - 1.2 mg/dL) 1.0 Estimated GFR (>60 ml/min) > 60 Glucose (65 - 99 mg/dL) 125 H Calcium (8.4 - 10.2 mg/dL) 7.2 L Phosphorus (2.5 - 4.5 mg/dL) 2.0 L Magnesium (1.6 - 2.3 mg/dL) 2.0 Total Bilirubin (0.2 - 1.3 mg/dL) 0.5 AST (17 - 59 U/L) 38 ALT (21 - 72 U/L) 37 Albumin (3.5 - 5.0 g/dL) 1.4 L Hematology CBC w Diff MAN DIFF ORDERED WBC (4.8 - 10.8 /CUMM) 20.1 H RBC (4.70 - 6.10 /CUMM) 3.19 L Hgb (14.0 - 18.0 G/DL) 8.9 L Hct (42 - 52 %) 27.1 L MCV (80.0 - 94.0 FL) 85.2 MCH (27.0 - 31.0 PG) 28.0 RDW (11.5 - 14.5 %) 17.0 H Plt Count (130 - 400 /CUMM) 261 MPV (7.4 - 10.4 FL) 8.8 Gran % (42.2 - 75.2 %) 76.9 H Lymphocytes % (20.5 - 51.1 %) 17.7 L Monocytes % (1.7 - 9.3 %) 5.0 Eosinophils % (0 - 5 %) 0.1 Basophils % (0.0 - 2.0 %) 0.3 Absolute Granulocytes (1.4 - 6.5 /CUMM) 15.5 H Segmented Neutrophils (42.2 - 75.2 %) 74 Band Neutrophils (0.0 - 5.0 %) 7 H Absolute Lymphocytes (1.2 - 3.4 /CUMM) 3.6 H Lymphocytes (20.5 - 51.1 %) 14 L Monocytes (1.7 - 9.3 %) 5 Absolute Monocytes (0.10 - 0.60 /CUMM) 1.0 H Absolute Eosinophils (0.0 - 0.7 /CUMM) 0 Absolute Basophils (0.0 - 0.2 /CUMM) 0.1 Nucleated RBCs (0.0 - 0.0 /100WBC) 3 H Platelet Estimate (ADEQUATE) ADEQUATE Polychromasia 1+ Poikilocytosis 1+ Anisocytosis 1+ Stomatocytes 1+ PUBS MCHC (33.0 - 37.0 G/DL) 32.9 L Miscellaneous Phlebotomy Draw Site LEFT BRACHIAL 07/18 1840 Chemistry Sodium (137 - 145 mmol/L) 140 Potassium (3.5 - 5.1 mmol/L) 3.5 Chloride (98 - 107 mmol/L) 109 H Carbon Dioxide (22 - 30 mmol/L) 23 Anion Gap (5 - 16) 8 BUN (9 - 20 mg/dL) 31 H Creatinine (0.7 - 1.2 mg/dL) 1.0 Estimated GFR (>60 ml/min) > 60 Glucose (65 - 99 mg/dL) 142 H Calcium (8.4 - 10.2 mg/dL) 7.2 L Phosphorus (2.5 - 4.5 mg/dL) 2.4 L Magnesium (1.6 - 2.3 mg/dL) 1.7 Total Bilirubin (0.2 - 1.3 mg/dL) 0.6 AST (17 - 59 U/L) 39 ALT (21 - 72 U/L) 38 Albumin (3.5 - 5.0 g/dL) 1.6 L Last 24 Hours of Les Results: OR culture July 15 positive for Enterobacter and VRE, with final sensitivities pending Sputum culture July 18 positive for Enterococcus sensitivities pending Recent Imaging Studies: Chest x-ray July 19, personally reviewed, reveals bibasilar opacities, left greater than right, without significant change from the previous film Doppler of the right upper extremity July 18 negative Assessment/Plan Impression: Continues to improve with temperatures just low-grade and with white blood cell count continuing to decrease on Vancomycin and Meropenem now 4 days status post a return to the OR for expiratory laparotomy and suture repair of a leaking duodenal ulcer for peritonitis and an uncontrolled leak, with placement of a jejunostomy tube. The significance of the VRE is unclear given his improvement without specific treatment for this organism and, therefore, it may not be necessary to treat. His sputum is also going Enterococcus, which will also likely prove to be VRE, though his respiratory status is stable and he has little evidence for pneumonia on chest x-ray. He remains on steroids, apparently for stress, though his cortisol level was 24.8. Suggestion: 1. Reevaluation of the need for steroids per Endocrine 2. Discontinue Vancomycin 3. Continue Meropenem
--- NOTE | 2017-07-19 15:42 | Event Note ---
Event Note Event Note: S: Informed that the patient should be on tube feeds owing to the fact that he still has functioning gut. B: Was informed by fellow housestaff via message from Lior Worthy MD the patient should begun on tube feeds. Spoke with surgical PA on [phone] approximately 3:35 PM regarding this order. A/R: Nutrition at 7500 was paged to help with these recommendations. Once formal evaluation and assessment is submitted will transition the patient to tube feeds. Have signed out to PM team. Will continue to follow.
[2017-07-19 16:00] VITALS: BP 82/0
--- NOTE | 2017-07-19 16:51 | RADIOLOGY REPORT ---
EXAMINATION: CR PORTABLE CHEST CLINICAL INFORMATION: On ventilator. Presumptive diagnosis of shock/fluid overload. COMPARISON: Chest x-ray dated 07/19/2017. TECHNIQUE: Portable AP semierect view of the chest was obtained. FINDINGS: Endotracheal tube tip is approximately 5 cm above the kika. Enteric tube courses into the abdomen with tip not included. Right atrial pacer lead and right ventricular ICD lead unchanged. Right subclavian PICC line tip poorly visualized, but likely in the distal SVC/cavoatrial junction. Superficial EKG leads are noted. The cardiomediastinal silhouette is enlarged, unchanged. Bilateral lower lung opacities again seen, unchanged, likely representing a combination of pleural fluid and associated atelectasis. No pneumothorax seen. Bony structures grossly unremarkable. IMPRESSION: 1. Lines and tubes in place as discussed above. 2. No significant change in bibasilar opacities, likely a combination of effusions and associated atelectasis or pneumonia. 3. No evidence of pulmonary edema.
[2017-07-19 16:59] LABS: ABSOLUTE BASOPHIL COUNT 0.1 /CUMM (0.0-0.2); ABSOLUTE EOSINOPHIL COUNT 0 /CUMM (0.0-0.7); ABSOLUTE GRANULOCYTE CT 14.1 /CUMM (1.4-6.5); ABSOLUTE LYMPH COUNT 3.8 /CUMM (1.2-3.4); ABSOLUTE MONOCYTE COUNT 1.1 /CUMM (0.10-0.60); BASOPHIL % 0.3 % (0.0-2.0); EOSINOPHIL % 0.1 % (0-5); HEMATOCRIT 27.3 % (42-52); MEAN CORPUSCULAR HGB 28.1 PG (27.0-31.0); MEAN CORPUSCULAR HGB CONC 32.8 G/DL (33.0-37.0); MEAN CORPUSCULAR VOLUME 85.5 FL (80.0-94.0); MEAN PLATELET VOLUME 8.9 FL (7.4-10.4); PLATELET COUNT 272 /CUMM (130-400); RBC DISTRIBUTION WIDTH 17.4 % (11.5-14.5); RED BLOOD CELL CT 3.19 /CUMM (4.70-6.10)
--- NOTE | 2017-07-19 17:38 | PN- Cardiology ---
Subjective Subjective: Remains intubated and on pressors since his return to the OR on 07/16/2017 for exploratory laparotomy and suture repair duodenal ulcer with Fabrizio patch. Had a run of NSVT last evening and again this morning. None since that time. Objective Vital Signs and I&Os Vital Signs Date Time Temp Pulse Resp B/P B/P Pulse O2 O2 Flow FiO2 Mean Ox Delivery Rate 07/19 1610 40 07/19 1600 98.4 69 20 82/0 96 Ventilator 40% 07/19 1600 96 Ventilator 40% 07/19 1334 40 07/19 1200 95 Ventilator 40% 07/19 1134 40 07/19 0837 40 07/19 0800 99.8 69 22 98/62 96 Ventilator 40% 07/19 0800 96 Ventilator 40% 07/19 0631 40 07/19 0423 69 87/40 07/19 0400 95 Ventilator 40% 07/19 0331 40 07/19 0032 40 07/19 0000 95 Ventilator 40% 07/19 0000 100.2 68 20 100/54 95 Ventilator 40% 07/18 2225 40 07/18 2112 69 89/48 07/18 202 69 102/55 07/18 2000 95 Ventilator 40% 07/18 1940 40 Intake & Output 07/19 1600 07/19 0800 07/19 0000 07/18 1600 07/18 0800 07/18 0000 Intake Total 1540.0 1511.0 1808.0 2575.0 1703 2042.9 Output Total 2354 987 8347 1860 1050 3390 Balance 290.0 631.0 -22.0 715.0 653 -1347.1 Intake, IV 083 829 4700 1770 1703 1259.4 Intake, Lipid 120.0 114.0 114.0 120.0 116.8 Intake, Oral 0 0 Intake, 680 651 645 685 666.7 TPN/PPN Number 1 0 1 Bowel Movements Output, 140 80 80 110 120 110 Drainage Output, 110 200 150 150 120 150 Gastric Drainage Output, Urine 9448 997 3963 0367 992 2481 Physical Exam: Morbidly obese elderly male who is intubated and sedated. Vital signs: See above. Neck: No JVD, bruits. Lungs: Decreased breath sounds bilaterally. Heart: S1, S2 with grade 2/6 systolic murmur. Abdomen: Soft and positive bowel sounds. Extremities: As edema. Current Medications: Current Medications Sig/Buck Start time Last Medication Dose Route Stop Time Status Admin Acetaminophen 1,000 MG Q6P PRN 07/16 0530 AC 07/16 N/A 1 UNIT IV 0520 Budesonide/ 2 PUF BID 07/09 220 AC 07/19 Formoterol Fumarate INH 0842 Fat Emulsion 350 ML 1900 07/19 1900 AC Intravenous IV 07/20 185 Fat Emulsion 500 ML 1900 07/18 1900 AC 07/18 Intravenous IV 07/19 1859 1942 Fat Emulsion 350 ML 1900 07/17 1900 DC 07/17 Intravenous IV 07/18 185 1920 Fentanyl Citrate 1,000 MCG Q10H 07/16 2200 AC 07/19 Dextrose/Water 250 ML IV 0626 Furosemide 20 MG 7:30 AM, & 4:30 PM 07/19 1630 AC IV Furosemide 20 MG ONCE ONE 07/19 1200 DC 07/19 IV 07/19 1201 1215 Heparin Sodium 5,000 UNIT Q8 07/10 0138 AC 07/19 (Porcine) SC 1406 Hydrocortisone 50 MG Q12 07/19 1000 DC Sodium Succinate IV Hydrocortisone 50 MG Q8 07/16 1400 DC 07/19 Sodium Succinate IV 0626 Insulin Human Regular 100 UNIT Q16H 07/19 1100 AC 07/19 Sodium Chloride 100 ML IV 1406 Insulin Human Regular 100 UNIT Q9H 07/17 1900 DC 07/19 Sodium Chloride 100 ML IV 0117 Magnesium Sulfate 1 GM Q2H 07/18 2045 DC 07/18 Dextrose/Water 100 ML IV 07/19 0044 2208 Meropenem 1 GM Q8H 07/16 0200 AC 07/19 IV 0950 Morphine Sulfate 2 MG Q4P PRN 07/14 1145 AC 07/16 IV 0404 Norepinephrine 4 MG Q16H 07/19 2000 AC Sodium Chloride 250 ML IV Norepinephrine 4 MG Q5H 07/17 1300 AC 07/19 Sodium Chloride 250 ML IV 07/19 195 0423 Octreotide Acetate 500 MCG Q20H 07/15 1400 AC 07/19 Dextrose/Water 500 ML IV 0422 Pantoprazole Sodium 40 MG BID 07/10 1016 AC 07/19 IV 0948 Phenylephrine HCl 40 MG Q3H 07/16 1430 DC 07/18 Sodium Chloride 250 ML IV 1345 Potassium Chloride 20 MEQ Q1H 07/19 1200 CAN IV 07/19 1301 Potassium Chloride 20 MEQ Q1H 07/19 0630 DC 07/19 IV 07/19 0731 0743 Potassium Chloride 20 MEQ ONCE ONE 07/18 2045 DC 07/18 IV 07/18 2046 2308 Total Parenteral 1 UNIT 1900 07/19 1900 AC Nutrition IV 07/20 1859 Total Parenteral 1 UNIT 1900 07/18 1900 AC 07/18 Nutrition IV 07/19 1859 194 Total Parenteral 1 UNIT 0 07/17 190 DC 07/17 Nutrition IV 07/18 1859 192 Vancomycin HCl 1,500 MG DAILY 07/16 1000 DC 07/18 Sodium Chloride 250 ML IV 1132 Results Last 48 Hrs of Labs/Mics: Laboratory Tests 07/19/17 1600: Sodium Pending, Potassium Pending, Chloride Pending, Carbon Dioxide Pending, Anion Gap Pending, BUN Pending, Creatinine Pending, Glucose Pending, Calcium Pending, Phosphorus Pending, Magnesium Pending, Total Bilirubin Pending, AST Pending, ALT Pending, Albumin Pending, CBC w Diff MAN DIFF ORDERED, RBC 3.19 L, MCV 85.5, MCH 28.1, RDW 17.4 H, MPV 8.9, Gran % 74.0, Lymphocytes % 20.0 L, Monocytes % 5.6, Eosinophils % 0.1, Basophils % 0.3, Absolute Granulocytes 14.1 H, Segmented Neutrophils 80 H, Band Neutrophils 3, Absolute Lymphocytes 3.8 H, Lymphocytes 14 L, Monocytes 3, Absolute Monocytes 1.1 H, Absolute Eosinophils 0, Absolute Basophils 0.1, Nucleated RBCs 2 H, Platelet Estimate ADEQUATE, Polychromasia 1+, Hypochromic-Microcytic 1+, Poikilocytosis 1+, Anisocytosis 1+, PUBS MCHC 32.8 L, Fld Total RBCs Counted 100 07/19/17 0610: pH 7.52 H, pCO2 30 L, pO2 87, HCO3 24, ABG O2 Sat (Measured) 97.0, P-50 (Temp Corrected) N, Carboxyhemoglobin 0.3 L, O2 Concentration % .40, Respiration Rate 20, O2 Delivery Method VENT, Vent Mode A/C, Expiratory Pressure 5, Tidal Volume 600, Phlebotomy Draw Site LEFT BRACHIAL 07/19/17 0430: Anion Gap 8, Estimated GFR > 60, Glucose 125 H, Calcium 7.2 L, Phosphorus 2.0 L, Magnesium 2.0, Total Bilirubin 0.5, AST 38, ALT 37, Albumin 1.4 L, CBC w Diff MAN DIFF ORDERED, RBC 3.19 L, MCV 85.2, MCH 28.0, RDW 17.0 H, MPV 8.8, Gran % 76.9 H, Lymphocytes % 17.7 L, Monocytes % 5.0, Eosinophils % 0.1, Basophils % 0.3, Absolute Granulocytes 15.5 H, Segmented Neutrophils 74, Band Neutrophils 7 H, Absolute Lymphocytes 3.6 H, Lymphocytes 14 L, Monocytes 5, Absolute Monocytes 1.0 H, Absolute Eosinophils 0, Absolute Basophils 0.1, Nucleated RBCs 3 H, Platelet Estimate ADEQUATE, Polychromasia 1+, Poikilocytosis 1+, Anisocytosis 1+, Stomatocytes 1+, PUBS MCHC 32.9 L 07/18/17 1840: Anion Gap 8, Estimated GFR > 60, Glucose 142 H, Calcium 7.2 L, Phosphorus 2.4 L, Magnesium 1.7, Total Bilirubin 0.6, AST 39, ALT 38, Albumin 1.6 L 07/18/17 0930: Vancomycin Trough 7.0 L 07/18/17 0832: pH 7.43, pCO2 30 L, pO2 100, HCO3 20 L, ABG O2 Sat (Measured) 97.0, P-50 (Temp Corrected) YES, Carboxyhemoglobin 0.1 L, O2 Concentration % 45%, Temperature 100.5 H, Respiration Rate 20, O2 Delivery Method VENT, Vent Mode AC, Expiratory Pressure 5, Tidal Volume 600, Phlebotomy Draw Site LEFT RADIAL 07/18/17 0420: Anion Gap 9, Estimated GFR > 60, Glucose 162 H, Calcium 7.2 L, Phosphorus 2.9, Magnesium 1.7, Total Bilirubin 0.6, AST 31, ALT 37, Albumin 1.5 L, CBC w Diff MAN DIFF ORDERED, RBC 3.68 L, MCV 87.1, MCH 28.3, RDW 17.4 H, MPV 8.8, Segmented Neutrophils 85 H, Band Neutrophils 5, Lymphocytes 4 L, Monocytes 4, Metamyelocytes 2 H, Platelet Estimate ADEQUATE, Polychromasia 1+, Hypochromic- Microcytic 1+, Poikilocytosis 1+, Ovalocytes 1+, PUBS MCHC 32.5 L, Fld Total RBCs Counted 100 Recent Imaging Studies: CXR (07/19/2017): 1. Lines and tubes in place as discussed above. 2. No significant change in bibasilar opacities, left greater than right, consistent with small effusions and atelectasis. 3. No evidence of pulmonary edema. Assessment/Plan Assessment/Plan [id number] w/ hx of morbid obesity, LIAM on CPAP, COPD, HTN, HLD, DM, CAD/ICM (s/ p IMI in 1998, CABG 4 w/ WHITE to LAD and individual SVGs to Dx, OM, PDA & MAZE) , and recurrent PAF who presented in an unkempt state via ambulance w/ UTI & subsequently had a perforation of a duodenal ulcer for which he underwent surgery (Fabrizio patch) on 07/09/2017 with worsening clinical status requiring return to the OR on 07/16/2017 for exploratory laparotomy and suture repair duodenal ulcer with Fabrizio patch. Recommendations: * If further ventricular tachycardia would place on amiodarone. Will notify EP of the patient's ventricular ectopy. * Replete potassium and maintain between 4.0-4.5 mEq per liter. * Continue to follow-up on infectious disease, critical care, endocrine, renal and surgical recommendations. * Continue DVT prophylaxis. Continue telemetry? Not applicable (In ICU.)
[2017-07-20] VITALS: BP 98/50
[2017-07-20 03:58] LABS: ABSOLUTE BASOPHIL COUNT 0 /CUMM (0.0-0.2); ABSOLUTE EOSINOPHIL COUNT 0.1 /CUMM (0.0-0.7); ABSOLUTE LYMPH COUNT 3.8 /CUMM (1.2-3.4); ABSOLUTE MONOCYTE COUNT 0.9 /CUMM (0.10-0.60); BASOPHIL % 0.2 % (0.0-2.0); EOSINOPHIL % 0.3 % (0-5); GRANULOCYTE % 75.9 % (42.2-75.2); HEMATOCRIT 27.2 % (42-52); MEAN CORPUSCULAR HGB CONC 32.8 G/DL (33.0-37.0); MEAN CORPUSCULAR VOLUME 85.3 FL (80.0-94.0); MEAN PLATELET VOLUME 8.8 FL (7.4-10.4); PLATELET COUNT 256 /CUMM (130-400); RBC DISTRIBUTION WIDTH 16.7 % (11.5-14.5); RED BLOOD CELL CT 3.19 /CUMM (4.70-6.10); WHITE BLOOD CELL COUNT 19.8 /CUMM (4.8-10.8)
--- NOTE | 2017-07-20 05:53 | PN- General Surgery ---
See Addendum Subjective Subjective: Remains intubated, sedated, responsive to verbal stimuli. NG tube in place, ramon in place Objective Vital Signs and I&Os Vital Signs Date Time Temp Pulse Resp B/P B/P Pulse O2 O2 Flow FiO2 Mean Ox Delivery Rate 07/20 0414 40 07/20 0400 96 Ventilator 40% 07/20 0218 40 07/20 0000 98.7 68 21 98/50 95 Ventilator 40% 07/20 0000 95 Ventilator 40% 07/19 2216 40 07/19 2000 95 Ventilator 40% 07/19 1940 69 90/49 07/19 1910 40 07/19 1610 40 07/19 1600 98.4 69 20 82/0 96 Ventilator 40% 07/19 1600 96 Ventilator 40% 07/19 1334 40 07/19 1200 95 Ventilator 40% 07/19 1134 40 07/19 0837 40 07/19 0800 99.8 69 22 98/62 96 Ventilator 40% 07/19 0800 96 Ventilator 40% 07/19 0631 40 Intake & Output 07/20 0800 07/20 0000 07/19 1600 07/19 0800 07/19 0000 07/18 1600 Intake Total 1388.0 1540.0 1511.0 1808.0 2575.0 Output Total 760 1433 239 8558 1860 Balance 628.0 290.0 631.0 -22.0 715.0 Intake, IV 632 088 710 0918 1770 Intake, Lipid 113.0 120.0 114.0 114.0 120.0 Intake, Oral 0 0 0 Intake, 643 680 651 645 685 TPN/PPN Number 0 1 0 Bowel Movements Output, 70 140 80 80 110 Drainage Output, 90 110 200 150 150 Gastric Drainage Output, Urine 600 5756 667 1736 1600 Physical Exam: 8hr shifts: JP1: 100/45/P dark yellow, purulent JP2:40/250/P dark green bilious, fibrin, thick NGT: 110/90/P dark green bilious UO ramon: 1000/6000/p, concentrated yellow BM:1 OR Cx: enterobacter, enterococcus GEN: remains intubated, HEENT: NGT in place CARD: s1s2 PULM: coarse bs throughout anterior ABD: midline stapleline dressing cdi. drain dressings cdi, JP1 w thicker purulent drainage. JP2, dark bilious drainage w fibrin in bulb, both holding self suction. j-tube to gravity. no bowel sounds. EXT: feet cool bl, 1+ pitting edema B Results Last 48 Hours of Labs: Laboratory Tests 07/20 07/20 0530 0325 Blood Gas pH (7.35 - 7.45 PH) 7.53 H pCO2 (35 - 45 TORR) 31 L pO2 (80 - 100 TORR) 77 L HCO3 (21 - 28 MEQ/L) 25 ABG O2 Sat (Measured) (>96.0 %) 94.0 L P-50 (Temp Corrected) Y Carboxyhemoglobin (1.5 - 5.0 %) 0.3 L O2 Concentration % 40% Temperature (97.0 - 100.0 FARH) 99.7 Respiration Rate (BPM) 20 O2 Delivery Method ESPRIT Vent Mode AC Expiratory Pressure (CMH2O/P) 5 Tidal Volume (CC) 600 Chemistry Sodium (137 - 145 mmol/L) 140 Potassium (3.5 - 5.1 mmol/L) 3.3 L Chloride (98 - 107 mmol/L) 108 H Carbon Dioxide (22 - 30 mmol/L) 25 Anion Gap (5 - 16) 6 BUN (9 - 20 mg/dL) 33 H Creatinine (0.7 - 1.2 mg/dL) 1.0 Estimated GFR (>60 ml/min) > 60 Glucose (65 - 99 mg/dL) 107 H Calcium (8.4 - 10.2 mg/dL) 7.3 L Phosphorus (2.5 - 4.5 mg/dL) 1.7 L Magnesium (1.6 - 2.3 mg/dL) 1.8 Total Bilirubin (0.2 - 1.3 mg/dL) 0.7 AST (17 - 59 U/L) 56 ALT (21 - 72 U/L) 44 Albumin (3.5 - 5.0 g/dL) 1.5 L Hematology CBC w Diff MAN DIFF ORDERED WBC (4.8 - 10.8 /CUMM) 19.8 H RBC (4.70 - 6.10 /CUMM) 3.19 L Hgb (14.0 - 18.0 G/DL) 8.9 L Hct (42 - 52 %) 27.2 L MCV (80.0 - 94.0 FL) 85.3 MCH (27.0 - 31.0 PG) 28.0 RDW (11.5 - 14.5 %) 16.7 H Plt Count (130 - 400 /CUMM) 256 MPV (7.4 - 10.4 FL) 8.8 Gran % (42.2 - 75.2 %) 75.9 H Lymphocytes % (20.5 - 51.1 %) 19.2 L Monocytes % (1.7 - 9.3 %) 4.4 Eosinophils % (0 - 5 %) 0.3 Basophils % (0.0 - 2.0 %) 0.2 Absolute Granulocytes (1.4 - 6.5 /CUMM) 15.0 H Segmented Neutrophils (42.2 - 75.2 %) 76 H Band Neutrophils (0.0 - 5.0 %) 6 H Absolute Lymphocytes (1.2 - 3.4 /CUMM) 3.8 H Lymphocytes (20.5 - 51.1 %) 10 L Monocytes (1.7 - 9.3 %) 6 Absolute Monocytes (0.10 - 0.60 /CUMM) 0.9 H Absolute Eosinophils (0.0 - 0.7 /CUMM) 0.1 Absolute Basophils (0.0 - 0.2 /CUMM) 0 Metamyelocytes (0.0 - 1.0 %) 2 H Platelet Estimate (ADEQUATE) ADEQUATE Polychromasia 1+ Hypochromic-Microcytic 1+ Poikilocytosis 1+ Ovalocytes 1+ PUBS MCHC (33.0 - 37.0 G/DL) 32.8 L Miscellaneous Phlebotomy Draw Site LEFT RADIAL Other Body Source Fld Total RBCs Counted (%) 100 07/19 07/19 1600 0610 Blood Gas pH (7.35 - 7.45 PH) 7.52 H pCO2 (35 - 45 TORR) 30 L pO2 (80 - 100 TORR) 87 HCO3 (21 - 28 MEQ/L) 24 ABG O2 Sat (Measured) (>96.0 %) 97.0 P-50 (Temp Corrected) N Carboxyhemoglobin (1.5 - 5.0 %) 0.3 L O2 Concentration % .40 Respiration Rate (BPM) 20 O2 Delivery Method VENT Vent Mode A/C Expiratory Pressure (CMH2O/P) 5 Tidal Volume (CC) 600 Chemistry Sodium (137 - 145 mmol/L) 141 Potassium (3.5 - 5.1 mmol/L) 3.5 Chloride (98 - 107 mmol/L) 108 H Carbon Dioxide (22 - 30 mmol/L) 25 Anion Gap (5 - 16) 8 BUN (9 - 20 mg/dL) 33 H Creatinine (0.7 - 1.2 mg/dL) 0.9 Estimated GFR (>60 ml/min) > 60 Glucose (65 - 99 mg/dL) 144 H Calcium (8.4 - 10.2 mg/dL) 7.2 L Phosphorus (2.5 - 4.5 mg/dL) 1.9 L Magnesium (1.6 - 2.3 mg/dL) 1.9 Total Bilirubin (0.2 - 1.3 mg/dL) 0.5 AST (17 - 59 U/L) 40 ALT (21 - 72 U/L) 41 Albumin (3.5 - 5.0 g/dL) 1.5 L Hematology CBC w Diff MAN DIFF ORDERED WBC (4.8 - 10.8 /CUMM) 19.0 H RBC (4.70 - 6.10 /CUMM) 3.19 L Hgb (14.0 - 18.0 G/DL) 9.0 L Hct (42 - 52 %) 27.3 L MCV (80.0 - 94.0 FL) 85.5 MCH (27.0 - 31.0 PG) 28.1 RDW (11.5 - 14.5 %) 17.4 H Plt Count (130 - 400 /CUMM) 272 MPV (7.4 - 10.4 FL) 8.9 Gran % (42.2 - 75.2 %) 74.0 Lymphocytes % (20.5 - 51.1 %) 20.0 L Monocytes % (1.7 - 9.3 %) 5.6 Eosinophils % (0 - 5 %) 0.1 Basophils % (0.0 - 2.0 %) 0.3 Absolute Granulocytes (1.4 - 6.5 /CUMM) 14.1 H Segmented Neutrophils (42.2 - 75.2 %) 80 H Band Neutrophils (0.0 - 5.0 %) 3 Absolute Lymphocytes (1.2 - 3.4 /CUMM) 3.8 H Lymphocytes (20.5 - 51.1 %) 14 L Monocytes (1.7 - 9.3 %) 3 Absolute Monocytes (0.10 - 0.60 /CUMM) 1.1 H Absolute Eosinophils (0.0 - 0.7 /CUMM) 0 Absolute Basophils (0.0 - 0.2 /CUMM) 0.1 Nucleated RBCs (0.0 - 0.0 /100WBC) 2 H Platelet Estimate (ADEQUATE) ADEQUATE Polychromasia 1+ Hypochromic-Microcytic 1+ Poikilocytosis 1+ Anisocytosis 1+ PUBS MCHC (33.0 - 37.0 G/DL) 32.8 L Miscellaneous Phlebotomy Draw Site LEFT BRACHIAL Other Body Source Fld Total RBCs Counted (%) 100 07/19 07/18 07/18 0430 1840 0930 Chemistry Sodium (137 - 145 mmol/L) 141 140 Potassium (3.5 - 5.1 mmol/L) 3.5 3.5 Chloride (98 - 107 mmol/L) 110 H 109 H Carbon Dioxide (22 - 30 mmol/L) 24 23 Anion Gap (5 - 16) 8 8 BUN (9 - 20 mg/dL) 31 H 31 H Creatinine (0.7 - 1.2 mg/dL) 1.0 1.0 Estimated GFR (>60 ml/min) > 60 > 60 Glucose (65 - 99 mg/dL) 125 H 142 H Calcium (8.4 - 10.2 mg/dL) 7.2 L 7.2 L Phosphorus (2.5 - 4.5 mg/dL) 2.0 L 2.4 L Magnesium (1.6 - 2.3 mg/dL) 2.0 1.7 Total Bilirubin (0.2 - 1.3 mg/dL) 0.5 0.6 AST (17 - 59 U/L) 38 39 ALT (21 - 72 U/L) 37 38 Albumin (3.5 - 5.0 g/dL) 1.4 L 1.6 L Hematology CBC w Diff MAN DIFF ORDERED WBC (4.8 - 10.8 /CUMM) 20.1 H RBC (4.70 - 6.10 /CUMM) 3.19 L Hgb (14.0 - 18.0 G/DL) 8.9 L Hct (42 - 52 %) 27.1 L MCV (80.0 - 94.0 FL) 85.2 MCH (27.0 - 31.0 PG) 28.0 RDW (11.5 - 14.5 %) 17.0 H Plt Count (130 - 400 /CUMM) 261 MPV (7.4 - 10.4 FL) 8.8 Gran % (42.2 - 75.2 %) 76.9 H Lymphocytes % (20.5 - 51.1 %) 17.7 L Monocytes % (1.7 - 9.3 %) 5.0 Eosinophils % (0 - 5 %) 0.1 Basophils % (0.0 - 2.0 %) 0.3 Absolute Granulocytes (1.4 - 6.5 /CUMM) 15.5 H Segmented Neutrophils (42.2 - 75.2 %) 74 Band Neutrophils (0.0 - 5.0 %) 7 H Absolute Lymphocytes (1.2 - 3.4 /CUMM) 3.6 H Lymphocytes (20.5 - 51.1 %) 14 L Monocytes (1.7 - 9.3 %) 5 Absolute Monocytes (0.10 - 0.60 /CUMM) 1.0 H Absolute Eosinophils (0.0 - 0.7 /CUMM) 0 Absolute Basophils (0.0 - 0.2 /CUMM) 0.1 Nucleated RBCs (0.0 - 0.0 /100WBC) 3 H Platelet Estimate (ADEQUATE) ADEQUATE Polychromasia 1+ Poikilocytosis 1+ Anisocytosis 1+ Stomatocytes 1+ PUBS MCHC (33.0 - 37.0 G/DL) 32.9 L Toxicology Vancomycin Trough (10.0 - 20.0 ug/mL) 7.0 L / 0832 Blood Gas pH (7.35 - 7.45 PH) 7.43 pCO2 (35 - 45 TORR) 30 L pO2 (80 - 100 TORR) 100 HCO3 (21 - 28 MEQ/L) 20 L ABG O2 Sat (Measured) (>96.0 %) 97.0 P-50 (Temp Corrected) YES Carboxyhemoglobin (1.5 - 5.0 %) 0.1 L O2 Concentration % 45% Temperature (97.0 - 100.0 FARH) 100.5 H Respiration Rate (BPM) 20 O2 Delivery Method VENT Vent Mode AC Expiratory Pressure (CMH2O/P) 5 Tidal Volume (CC) 600 Miscellaneous Phlebotomy Draw Site LEFT RADIAL Assessment/Plan Assessment/Plan A- 76yoM POD5 sp ex lap, primary closure and tono patch of perf'ed duo ulcer, POD13 sp initial ex lap w tono patch, on TPN, angie and levo, octreotide gtt, insulin gtt, and fentanyl gtt P- Cont TPN, NPO, start tube feeds strict I&Os JPs to self suction follow up am labs monitor fever trend-abx per ID monitor bowel function IV octreotide, protonix DVT ppx- hep sq medical care per critical care team and consultants
--- NOTE | 2017-07-20 07:11 | PN- Resident CRCU ---
Kyra Rothman MD 07/20/17 0711: Subjective HPI/CRCU Issues: Current issues - * Duodenal perforation status post patch repair(07/09/2017),drain malpositioned leading to uncontrolled leak taken to OR for washout on 07/15/2017 f/b septicemia and shock, jejunostomy tube in place -blood culture is growing - enterobacter aerogenes and enterococcus, growing VRE * Acute on Chronic kidney failure, - ATN and contrast induced nephropathy * Uncontrolled DM, secondary to Sepsis, pressors and octreotide on insulin drip * On ventilator for acute respiratory failure * NSVT * Ansarca -on TPN PMH - * IHD,CABG, LVEF -35% * AF, was on tykosyn * Hx of AICD * Type -2 DM * Hx of CKD * Hx of ECSWL * Hx of PUD * Hx of recent 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 with prolonged antibiotic,s /p post removal in early 2016 * Hyperlipidemia * LIAM Objective Vital Signs & I&O Last 8 Hrs of Vitals and I&O: Intake & Output 07/20 1600 Intake Total 1469.5 Output Total 1910 Balance -440.5 Intake, IV 681 Intake, Lipid 117.5 Intake, Oral 0 Intake, 671 TPN/PPN Output, 150 Drainage Output, 110 Gastric Drainage Output, Urine 1650 Exam General Appearance: alert, awake, comfortable, intubated Head: atraumatic, normal appearance Respiratory: normal breath sounds, chest non-tender Cardiovascular: irregularly irregular Gastrointestinal: distended, bowel soundse postitive, drains were in Extremities: anasarca Weaning Parameters NIF: 25 Minute Volume: 13.4 Resp rate: 23 Vt: 659 Heart Rate: 69 Weaning Schedule Start Time: 1015 Minute Volume: 13.4 Resp Rate: 22 Vt: 569 Heart Rate: 70 End Time: 1230 Minute Volume: 14.2 Resp Rate: 23 Vt: 674 Heart Rate: 68 Impression/Plan Impression/Problem List Impression: Duodenal perforation status post patch repair(07/09/2017),drain malpositioned leading to uncontrolled leak taken to OR for washout on 07/15/2017 f/b septicemia and shock;jejunostomy tube in place -blood culture is growing - enterobacter aerogenes and enterococcus, VRE in body fluids * We will continue Meropenem and stopped Vancomycin due to VRE. Started on Daptomycin. * Stool is positive for hemoccult blood, we will recheck CBC and ICU bundle in evening.Will get CT abdoman and pelvis with contrast to r/o ischemic colitis * Strict intake output charting * Vitals every 4 hrly * restarted NE due to hypotension and hydrocortisone due to low cortisol level. * Continue fentanyl drip for sedation Uncontrolled DM, secondary to Sepsis, pressors and octreotide * Following Dr Staton [facility] * Will continue Insulin drip * Target Blood sugar 140 -180. * Discussed with surgery - continue Octreotide Acute respiratory failure due to sepsis and shock - * On ventilator -AC,RR20,PEEP-5 ,FIO2 40, TV-600 under fantanyl sedation - we will try to wean sedation and give trial for weaning and than extubation. CAD,CABG,AICD, NSVT - * He had an episode on NSVT, called Dr Sanchez, will follow [facility]. Ansarca, right arm swelling and decreased peripheral pulsation - albumin -1.4 * Color doppler of right upper arm was negative for DVT. * Continue TPN, withold tube feed for today. Dyselectrolytemia - Low K, Low Mg * Supplemented in TPN Acute on chronic Kidney disease -Cr 1.1 - possible ATN/contrast induced nephropathy -recovering * We will continue strict I/O charting. * Avoid nephrotoxins * will follow ICU bundle Nutrition - On TPN/Lipids - 75U on insulin Code status -Full code DVT prophylaxis - Heparin/ALPS Problem List: 1. Peritonitis 2. Rectal bleeding 3. Ischemic bowel disease 4. Duodenal ulcer with perforation Pain Ratin Tomorrow's Labs & Rationales: cbc,ICU bundle,CXR.ABG - for f/u Plan DVT/Prophylaxis: mechanical, pharmacological Booker RODRÍGUEZ,Trey 07/20/17 0943: Objective Current Medications: Current Medications Sig/Buck Start time Last Medication Dose Route Stop Time Status Admin Acetaminophen 1,000 MG Q6P PRN 07/16 0530 AC 07/20 N/A 1 UNIT IV 0659 Budesonide/ 2 PUF BID 07/09 2200 AC 07/21 Formoterol Fumarate INH 0818 Daptomycin 500 MG Q24H 07/20 1130 AC 07/20 Sodium Chloride 50 ML IV 1215 Fat Emulsion 350 ML Q24H 07/21 1900 AC Intravenous IV 07/22 1859 Fat Emulsion 350 ML 1900 07/20 1900 AC 07/20 Intravenous IV 07/21 1851953 Fat Emulsion 350 ML 1900 07/19 190 DC 07/19 Intravenous IV 07/20 1859 194 Fentanyl Citrate 1,000 MCG Q10H 07/16 2200 07/21 Dextrose/Water 250 ML IV 0549 Furosemide 20 MG 7:30 AM, & 4:30 PM 07/19 1630 07/21 IV 0802 Heparin Sodium 5,000 UNIT Q8 07/10 0138 07/21 (Porcine) SC 0551 Hydrocortisone 50 MG Q8H 07/20 1930 07/21 Sodium Succinate IV 0321 Hydrocortisone 50 MG Q8 07/20 1100 DC 07/20 Sodium Succinate IV 1136 Insulin Human Regular 100 UNIT Q24H 07/21 0800 07/21 Sodium Chloride 100 ML IV 0936 Insulin Human Regular 100 UNIT Q16H 07/19 1100 DC 07/20 Sodium Chloride 100 ML IV 07/21 0759 2309 Meropenem 1 GM Q8H 07/20 1000 07/21 IV 0915 Morphine Sulfate 2 MG Q4P PRN 07/14 1145 AC 07/16 IV 0404 Non-Formulary 0 SEE ADMIN CRITERIA 07/20 1130 CAN Medication ANY Norepinephrine 4 MG Q16H 07/19 2000 07/21 Sodium Chloride 250 ML IV 0848 Octreotide Acetate 500 MCG Q20H 07/15 1400 07/21 Dextrose/Water 500 ML IV 0551 Pantoprazole Sodium 40 MG BID 07/10 1016 07/21 IV 0802 Potassium Phosphate 15 mMol ONE ONE 07/20 1730 DC 07/20 Sodium Chloride 250 ML IV 07/20 2134 1849 Total Parenteral 1 UNIT 1900 07/21 1900 AC Nutrition IV 07/22 1859 Total Parenteral 1 UNIT 1700 07/21 1700 DC Nutrition IV 07/22 1659 Total Parenteral 1 UNIT 1900 07/20 190 AC 07/20 Nutrition IV 07/21 1851953 Total Parenteral 1 UNIT 1900 07/20 190 CAN Nutrition IV Total Parenteral 1 UNIT 1900 07/19 190 DC 07/19 Nutrition IV 07/20 1859 194 Attending MD Review Statement Attending Sign Off Attending Cosign Statement: I have: examined this patient, reviewed aval EMR data, personally reviewd images, discussd w/resident/PA/[employer]TER HELPER, discussed mgmt plan w/riya, discussed mgmt plan w/CM, discussed mgmt plan w/pt, agreed w/resident/PA/C[employer] MELTER HELPER, amended to note. Other Findings: Trey Sharma M.D. have examined this patient, reviewed available EMR data, personally reviewed images, discussed with resident/PA/CUPOL[employer] MELTER HELPER, discussed management plan with housestaff and nursing staff, discussed managment plan all of healthcare providers, discussed management plan with patient and/or family, agreed with resident/PA/C[employer] MELTER HELPER. The past history and parts of the chart have been autopopulated. Impression 76 year old man * septic shock - enterococcus * a.flutter * duodenal ulcer/s/p perforation, acute peritonitits * ischemic cardiac disease/cad Plan Respiratory -continue mechanical ventilation, reduce tidal volume to 500, repeat abg tonight , reduce rate to 16 -f/u cxr, abgs ID -ID follow up -meropenem CVS -cardiology f/u -hemodynamic monitoring -map goal of 65 Heme -coags and cbc monitoring Metabolic/Alimentary -ins/outs -monitor urine output -TPN -f/u surgical and GI consultations -endocrinology follow up Neuro -fentanyl for sedation DVT prophylaxis at all times TTS 50 min 76 year old man * septic shock - enterococcus * a.flutter * duodenal ulcer/s/p perforation, acute peritonitits * ischemic cardiac disease/cad Plan Respiratory -continue mechanical ventilation, reduce tidal volume to 500, repeat abg tonight , reduce rate to 16 -f/u cxr, abgs ID -ID follow up -meropenem CVS -cardiology f/u -hemodynamic monitoring -map goal of 65 Heme -coags and cbc monitoring Metabolic/Alimentary -ins/outs -monitor urine output -TPN -f/u surgical and GI consultations -endocrinology follow up Neuro -fentanyl for sedation DVT prophylaxis at all times TTS 50 min
[2017-07-20 08:00] VITALS: BP 80/0
--- NOTE | 2017-07-20 08:39 | PN- Diabetes ---
Assessment/Plan Assessment: 76-year-old male with Hx of CAD with low ejection fraction, atrial fibrillation, AICD, previous infection of hip with prolonged antibiotic, history of peptic ulcer disease, diabetes and renal stone, was admitted for perforation of duodenum now with septic shock in ICU. He was on 3 pressors, TPN, octreotide drip and bicarb drip. His BP remained low and stress dose of steroid was initiated despite his am cortisol was 24.8. His glucose level was in the 300s. Insulin drip was initiated. Pressors and hydrocortisone were off. He is still on TPN and octreotide drip. On 07/19/2017, 100 units of insulin was added to the TPN (12.5% dextrose x 2100 ml/ 24 hours). Overnight, he has been on insulin drip at 6 units per hour and then 4 units per hour and his FSGs were between 120 and 140. But his BP is borderline low this morning. As per team, most likely TPN will be discontiued and tube feeding will be initiated today. Plan: 1. repeat am cortisol and will restart patient on Hydrocortisone as it is indicated; 2. continue the insulin drip for now; monitor FSG every one hour and titrate insulin drip rate accordingly.The target of glucose level is between 140 and 180 mg/dl. 3. monitor electrolytes will follow. Subjective Subjective: patient remains intubated. Objective Last 24 Hrs of Vital Signs/I&O Vital Signs Date Time Temp Pulse Resp B/P B/P Pulse O2 O2 Flow FiO2 Mean Ox Delivery Rate 07/20 0804 98.7 07/20 0659 101.2 07/20 0636 40 07/20 0414 40 07/20 0400 96 Ventilator 40% 07/20 0218 40 07/20 0000 98.7 68 21 98/50 95 Ventilator 40% 07/20 0000 95 Ventilator 40% 07/19 2216 40 07/19 2000 95 Ventilator 40% 07/19 1940 69 90/49 07/19 1910 40 07/19 1610 40 07/19 1600 98.4 69 20 82/0 96 Ventilator 40% 07/19 1600 96 Ventilator 40% 07/19 1334 40 07/19 1200 95 Ventilator 40% 07/19 1134 40 Intake & Output 07/20 1600 07/20 0800 07/20 0000 Intake Total 1058.0 1388.0 Output Total 930 760 Balance 128.0 628.0 Intake, IV 291 632 Intake, Lipid 114.0 113.0 Intake, Oral 0 0 Intake, 653 643 TPN/PPN Number 0 0 Bowel Movements Output, 80 70 Drainage Output, 150 90 Gastric Drainage Output, Urine 700 600 Findings Pertinent Lab/Les Results: Laboratory Tests 07/20 07/20 0530 0325 Blood Gas pH (7.35 - 7.45 PH) 7.53 H pCO2 (35 - 45 TORR) 31 L pO2 (80 - 100 TORR) 77 L HCO3 (21 - 28 MEQ/L) 25 ABG O2 Sat (Measured) (>96.0 %) 94.0 L P-50 (Temp Corrected) Y Carboxyhemoglobin (1.5 - 5.0 %) 0.3 L O2 Concentration % 40% Temperature (97.0 - 100.0 FARH) 99.7 Respiration Rate (BPM) 20 O2 Delivery Method ESPRIT Vent Mode AC Expiratory Pressure (CMH2O/P) 5 Tidal Volume (CC) 600 Chemistry Sodium (137 - 145 mmol/L) 140 Potassium (3.5 - 5.1 mmol/L) 3.3 L Chloride (98 - 107 mmol/L) 108 H Carbon Dioxide (22 - 30 mmol/L) 25 Anion Gap (5 - 16) 6 BUN (9 - 20 mg/dL) 33 H Creatinine (0.7 - 1.2 mg/dL) 1.0 Estimated GFR (>60 ml/min) > 60 Glucose (65 - 99 mg/dL) 107 H Calcium (8.4 - 10.2 mg/dL) 7.3 L Phosphorus (2.5 - 4.5 mg/dL) 1.7 L Magnesium (1.6 - 2.3 mg/dL) 1.8 Total Bilirubin (0.2 - 1.3 mg/dL) 0.7 AST (17 - 59 U/L) 56 ALT (21 - 72 U/L) 44 Albumin (3.5 - 5.0 g/dL) 1.5 L Cortisol AM Sample (4.46 - 22.7 ug/dL) Pending Hematology CBC w Diff MAN DIFF ORDERED WBC (4.8 - 10.8 /CUMM) 19.8 H RBC (4.70 - 6.10 /CUMM) 3.19 L Hgb (14.0 - 18.0 G/DL) 8.9 L Hct (42 - 52 %) 27.2 L MCV (80.0 - 94.0 FL) 85.3 MCH (27.0 - 31.0 PG) 28.0 RDW (11.5 - 14.5 %) 16.7 H Plt Count (130 - 400 /CUMM) 256 MPV (7.4 - 10.4 FL) 8.8 Gran % (42.2 - 75.2 %) 75.9 H Lymphocytes % (20.5 - 51.1 %) 19.2 L Monocytes % (1.7 - 9.3 %) 4.4 Eosinophils % (0 - 5 %) 0.3 Basophils % (0.0 - 2.0 %) 0.2 Absolute Granulocytes (1.4 - 6.5 /CUMM) 15.0 H Segmented Neutrophils (42.2 - 75.2 %) 76 H Band Neutrophils (0.0 - 5.0 %) 6 H Absolute Lymphocytes (1.2 - 3.4 /CUMM) 3.8 H Lymphocytes (20.5 - 51.1 %) 10 L Monocytes (1.7 - 9.3 %) 6 Absolute Monocytes (0.10 - 0.60 /CUMM) 0.9 H Absolute Eosinophils (0.0 - 0.7 /CUMM) 0.1 Absolute Basophils (0.0 - 0.2 /CUMM) 0 Metamyelocytes (0.0 - 1.0 %) 2 H Platelet Estimate (ADEQUATE) ADEQUATE Polychromasia 1+ Hypochromic-Microcytic 1+ Poikilocytosis 1+ Ovalocytes 1+ PUBS MCHC (33.0 - 37.0 G/DL) 32.8 L Miscellaneous Phlebotomy Draw Site LEFT RADIAL Other Body Source Fld Total RBCs Counted (%) 100 07/19 1600 Chemistry Sodium (137 - 145 mmol/L) 141 Potassium (3.5 - 5.1 mmol/L) 3.5 Chloride (98 - 107 mmol/L) 108 H Carbon Dioxide (22 - 30 mmol/L) 25 Anion Gap (5 - 16) 8 BUN (9 - 20 mg/dL) 33 H Creatinine (0.7 - 1.2 mg/dL) 0.9 Estimated GFR (>60 ml/min) > 60 Glucose (65 - 99 mg/dL) 144 H Calcium (8.4 - 10.2 mg/dL) 7.2 L Phosphorus (2.5 - 4.5 mg/dL) 1.9 L Magnesium (1.6 - 2.3 mg/dL) 1.9 Total Bilirubin (0.2 - 1.3 mg/dL) 0.5 AST (17 - 59 U/L) 40 ALT (21 - 72 U/L) 41 Albumin (3.5 - 5.0 g/dL) 1.5 L Hematology CBC w Diff MAN DIFF ORDERED WBC (4.8 - 10.8 /CUMM) 19.0 H RBC (4.70 - 6.10 /CUMM) 3.19 L Hgb (14.0 - 18.0 G/DL) 9.0 L Hct (42 - 52 %) 27.3 L MCV (80.0 - 94.0 FL) 85.5 MCH (27.0 - 31.0 PG) 28.1 RDW (11.5 - 14.5 %) 17.4 H Plt Count (130 - 400 /CUMM) 272 MPV (7.4 - 10.4 FL) 8.9 Gran % (42.2 - 75.2 %) 74.0 Lymphocytes % (20.5 - 51.1 %) 20.0 L Monocytes % (1.7 - 9.3 %) 5.6 Eosinophils % (0 - 5 %) 0.1 Basophils % (0.0 - 2.0 %) 0.3 Absolute Granulocytes (1.4 - 6.5 /CUMM) 14.1 H Segmented Neutrophils (42.2 - 75.2 %) 80 H Band Neutrophils (0.0 - 5.0 %) 3 Absolute Lymphocytes (1.2 - 3.4 /CUMM) 3.8 H Lymphocytes (20.5 - 51.1 %) 14 L Monocytes (1.7 - 9.3 %) 3 Absolute Monocytes (0.10 - 0.60 /CUMM) 1.1 H Absolute Eosinophils (0.0 - 0.7 /CUMM) 0 Absolute Basophils (0.0 - 0.2 /CUMM) 0.1 Nucleated RBCs (0.0 - 0.0 /100WBC) 2 H Platelet Estimate (ADEQUATE) ADEQUATE Polychromasia 1+ Hypochromic-Microcytic 1+ Poikilocytosis 1+ Anisocytosis 1+ PUBS MCHC (33.0 - 37.0 G/DL) 32.8 L Other Body Source Fld Total RBCs Counted (%) 100
--- NOTE | 2017-07-20 08:47 | RADIOLOGY REPORT ---
EXAMINATION: CR PORTABLE CHEST CLINICAL INFORMATION: Rule out fluid overload. Ventilated patient. COMPARISON: Several prior chest x-rays, most recent of which is dated 07/19/2017. TECHNIQUE: Portable AP semierect view of the chest was obtained. FINDINGS: Endotracheal tube tip is 4.6 cm above the kika. Enteric tube courses into the abdomen with tip not visualized. Right atrial pacer lead and right ventricular ICD lead are unchanged. Multiple external EKG wires are seen. Right subclavian PICC line tip is poorly visualized but is seen extending to at least the distal SVC. Median sternotomy wires are noted. The cardiomediastinal silhouette is borderline enlarged, likely due to the technique of the exam. Bibasilar opacities are seen, left greater than right, unchanged, likely a combination of small effusions and associated atelectasis or consolidation. No central vascular congestion or evidence of pulmonary edema. Multilevel mild vertebral spurring seen in the mid and lower thoracic spine. IMPRESSION: 1. Lines and tubes in place as discussed above. 2. No change in bibasilar opacities, likely a combination of small effusions and associated atelectasis or pneumonia. 3. No evidence of pulmonary edema.
--- NOTE | 2017-07-20 09:17 | Cons- Gastroenterology ---
General Information and HPI Consulting Request Date of Consult: 07/20/17 Requested By: SERENE RODRÍGUEZ,CORNELL Kim Reason for Consult: I was notified 15 minutes ago of a request by the ICU for a GI consult to asses scant BRBPR post defecation of brown stool, in an intubated patient with numerous co-morbidities, on pressors, HD # 13, s/p OR x 2 for tx of perforated DU, initially with omental patch, then with omental patch & oversewing of ulcer. Extensive records reviewed. Source of Information: old records Exam Limitations: patient intubated and sedated. History of Present Illness: 76 y/o male with multiple comorbidities, POD#5 sp ex lap, primary closure and Fabrziio patch of perforated duo ulcer, POD #13 sp initial ex lap w Fabrizio patch, on TPN, angie and levo, octreotide gtt, insulin gtt, and fentanyl gtt, DM, ASHD, CABG, PAF, PPM/AICD, ischemic cardiomyopathy with low EF, previous history of GI bleed, LIAM on CPAP, chronic venous insufficiency, BPH, DJD, post hip replacement with infected right hip secondary to enterococcus, hospitalized over the past few months for antibiotics for the above, renal stones, admitted 07/08/17 with acute abdomen and found to have large perforated duodenal ulcer by imaging studies and OR. He had significant ascites and free air. He was in septic shock with metabolic acidosis and USMAN, intermittently requiring bicarbonate. The above was complicated by peritonitis and postop leak, requiring repeated expiratory laparotomy with primary closure and Fabrizio patch of the perforated duodenal ulcer 07/15/17. The patient had been maintained nutritionally on TPN. He had not yet started enteral feeds through his feeding jejunostomy. He had bile coming from the NG tube. He has 2 Uri-Cotton drains in the right abdomen. Multiple consultants' notes and imaging studies were reviewed. On the evening of 07/19/17, the patient had a brown BM mixed with BRB and maroonish colored liquid, prompting the GI consult. His hemoglobin dropped slightly, but had remained relatively stable over the past 24 hours. As of this morning, 07/20/17, there was no recurrent overt LGI bleeding, as per his RN. The patient is unable to give any meaningful history. He is on the ventilator and partially sedated. He is back on pressors. He also had received stress dose steroids, as per endocrine. I am not certain if the patient ever had a colonoscopy. 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 No history is obtainable from the patient. Allergies/Medications Allergies: Coded Allergies: NO KNOWN ALLERGIES (03/22/12) NKA PER DIPYRIDAMOLE ORDER SHEET - [facility] Home Med List: Aspirin (Ecotrin*) 81 MG TABLET.DR 1 TAB PO DAILY HEART/BLOOD (Reported) Carvedilol 6.25 MG TABLET 1 TAB PO BID HEART (Reported) Dofetilide 500 MCG CAPSULE 1 CAP PO BID HEART (Reported) Fluticasone-Salmeterol (Advair 100-50 Diskus) 100 MCG-50 MCG/DOSE BLST.W.DEV 1 PUF INH BID COPD (Reported) Liraglutide (Victoza 3-Myles) 0.6 MG/0.1 ML (18 MG/3 ML) PEN.INJCTR 1.2 MG SC QAM DIABETES (Reported) Lisinopril (Prinivil) 5 MG TABLET 1 TAB PO QHS HEART/BP (Reported) Magnesium Gluconate (Mag-G) 27 MG (500 MG) TABLET 1 TAB PO Tuesday SUPPLEMENT (Reported) Metformin HCl 500 MG TABLET 1 TAB PO BID DIABETES (Reported) Woodruff-3/Dha/Epa/Fish Oil (Fish Oil 500 MG Softgel) 60 MG-90 MG-500 MG CAPSULE 1 CAP PO QPM SUPPLEMENT (Reported) Simvastatin (Zocor*) 10 MG TABLET 1 TAB PO QHS CHOLESTEROL (Reported) Tamsulosin HCl (Flomax) 0.4 MG CAP.ER.24H 1 CAP PO DAILY PROSTATE (Reported) Vitamin E Acetate (Vitamin E) 400 UNIT CAPSULE 1 CAP PO BID SUPPLEMENT ( Reported) Current Medications: Current Medications Sig/Buck Start time Last Medication Dose Route Stop Time Status Admin Acetaminophen 1,000 MG Q6P PRN 07/16 0530 AC 07/20 N/A 1 UNIT IV 0659 Budesonide/ 2 PUF BID 07/09 2200 AC 07/20 Formoterol Fumarate INH 0923 Fat Emulsion 350 ML 1900 07/19 1900 AC 07/19 Intravenous IV 07/20 Fat Emulsion 500 ML 1900 07/18 1900 DC 07/18 Intravenous IV 07/19 Fentanyl Citrate 1,000 MCG Q10H 07/16 2200 AC 07/20 Dextrose/Water 250 ML IV 0801 Furosemide 20 MG 7:30 AM, & 4:30 PM 07/19 1630 AC 07/20 IV 0748 Furosemide 20 MG ONCE ONE 07/19 1200 DC 07/19 IV 07/19 1201 1215 Heparin Sodium 5,000 UNIT Q8 07/10 0138 AC 07/20 (Porcine) SC 0511 Hydrocortisone 50 MG Q12 07/19 1000 DC Sodium Succinate IV Insulin Human Regular 100 UNIT Q16H 07/19 1100 AC 07/20 Sodium Chloride 100 ML IV 0801 Insulin Human Regular 100 UNIT Q9H 07/17 1900 DC 07/19 Sodium Chloride 100 ML IV 0117 Meropenem 1 GM Q8H 07/20 1000 AC 07/20 IV 0914 Meropenem 1 GM Q8H 07/16 0200 DC 07/20 IV 0159 Morphine Sulfate 2 MG Q4P PRN 07/14 1145 AC 07/16 IV 0404 Norepinephrine 4 MG Q16H 07/19 2000 AC Sodium Chloride 250 ML IV Norepinephrine 4 MG Q5H 07/17 1300 DC 07/19 Sodium Chloride 250 ML IV 07/19 195 1940 Octreotide Acetate 500 MCG Q20H 07/15 1400 AC 07/20 Dextrose/Water 500 ML IV 0511 Pantoprazole Sodium 40 MG BID 07/10 1016 AC 07/20 IV 0914 Potassium Chloride 20 MEQ ONCE ONE 07/20 0745 DC 07/20 IV 07/20 0746 0748 Potassium Chloride 20 MEQ Q1H 07/20 0500 DC 07/20 IV 07/20 0601 0616 Potassium Chloride 20 MEQ ONCE ONE 07/19 1830 DC 07/19 IV 07/19 1831 1823 Potassium Chloride 20 MEQ ONCE ONE 07/19 1830 DC 07/19 IV 07/19 1831 1940 Potassium Chloride 20 MEQ Q1H 07/19 1200 CAN IV 07/19 1301 Total Parenteral 1 UNIT 1900 07/19 1900 AC 07/19 Nutrition IV 07/20 185 1940 Total Parenteral 1 UNIT 1900 07/18 1900 DC 07/18 Nutrition IV 07/19 185 1942 Vancomycin HCl 1,500 MG DAILY 07/16 1000 DC 07/18 Sodium Chloride 250 ML IV 1132 Past History Travel History Traveled to [place] past 21 day No Medical History Blood Transfusion Hx: Yes (07/09/17) Neurological: NONE EENT: hearing loss Cardiovascular: AFIB, CAD, cardiomyopathy (ischemic. 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 FH: heart disease BROTHER FH: lung cancer FATHER FH: prostate cancer Psychosocial History Where Do You Live? Home Who Do You Live With? with nephew Services at Home: None Primary Language: Sudanese Smoking Status: Never Smoked ETOH Use: unknown- reportedly no Illicit Drug Use: unknown- reportedly no Living Will? unknown Power of Post Closing Specialist/HCP? unknown Other Social History: Unobtainable at present Functional Ability ADLs Independent: eating. Needs Assist: dressing, toileting, bathing. Ambulation: walker IADLs Needs Assist: shopping, housework, finances, food prep, telephone, transportation, medication admin. Employment History Employment: unknown ECHO Results (as available) Date of last Echo 07/10/17 EF% 30 Review of Systems Review of Systems: Full 14 point review of systems currently unobtainable, as patient is sedated on a ventilator, on pressors. Review of Systems All Other Systems: Reviewed and Negative (unobtainable) Exam & Diagnostic Data Vital Signs and I&O Vital Signs Date Time Temp Pulse Resp B/P B/P Pulse O2 O2 Flow FiO2 Mean Ox Delivery Rate 07/20 0804 98.7 07/20 0659 101.2 07/20 0636 40 07/20 0414 40 07/20 0400 96 Ventilator 40% 07/20 0218 40 07/20 0000 98.7 68 21 98/50 95 Ventilator 40% 07/20 0000 95 Ventilator 40% 07/19 2216 40 07/19 2000 95 Ventilator 40% 07/19 1940 69 90/49 07/19 1910 40 07/19 1610 40 07/19 1600 98.4 69 20 82/0 96 Ventilator 40% 07/19 1600 96 Ventilator 40% 07/19 1334 40 07/19 1200 95 Ventilator 40% 07/19 1134 40 Intake & Output 07/20 0400 07/19 1600 07/19 0400 07/18 0400 Intake Total 1058.0 1388.0 3051.0 1808.0 4278.0 2042.9 Output Total 122 839 7620 1830 2910 3390 Balance 128.0 628.0 921.0 -22.0 1368.0 -1347.1 Intake, IV 968 136 6153 1049 3473 1259.4 Intake, Lipid 114.0 113.0 234.0 114.0 120.0 116.8 Intake, Oral 0 0 0 0 Intake, 765 918 1010 645 685 666.7 TPN/PPN Number 0 0 1 0 1 Bowel Movements Output, 80 70 220 80 230 110 Drainage Output, 150 90 310 150 270 150 Gastric Drainage Output, Urine 669 461 4977 1600 2410 3130 Physical Exam: Well-developed, well-nourished, obese, chronically ill-appearing male, intubated on ventilator, NGT -> bile (no blood), in no apparent distress. Minimally responsive to verbal stimuli. Responsive to noxious stimuli. Moves all extremities. Sclera anicteric. Conjunctiva pink. Oropharynx: intubated. There is no adenopathy, thyromegaly, or JVD. No peripheral stigmata of inflammatory bowel disease or chronic liver disease on exam. No spiders on the anterior chest wall. Mild gynecomastia due to obesity. Lungs: clear to A&P, with decreased BS at the bases B/L. No wheezing, rales, or rhonchi. Heart exam: regular rate rhythm, S1 and S2, with soft I/ systolic murmur. Post PPM/AICD in left CW. Post CABG. Abdominal exam: hypoactive bowel sounds, soft belly, obese, minimally tender especially LLQ, but sedated, without guarding or rebound. WILLEM drain x 2 in right abdomen, 1 with purulent drainage, the other with dark bilious drainage. J tube to gravity on left (for eventual enteral nutrition). No mass. No definite organomegaly. No fluid shift. No pulsatile mass. Duvall in place. Digital rectal exam 07/19/17 API: brown stool mixed with small amount of reddish marroon blood, OB-positive. No reported masses or hemorrhoids. Extremities: without cyanosi or clubbing. 1+ pitting edema LE B/L. B/L ALPS. No palpable cords. Post right THR. Distal pulses 1+ bilaterally. DTRs 1+ bilaterally. Lethargic. Currently not oriented. Results Pertinent Lab Results: Laboratory Tests 07/20 07/20 07/20 07/20 07/20 1535 1430 1145 1145 0900 Chemistry Sodium (137 - 145 mmol/L) Pending 139 Potassium (3.5 - 5.1 mmol/L) Pending 3.9 Chloride (98 - 107 mmol/L) Pending 107 Carbon Dioxide (22 - 30 mmol/L) Pending 24 Anion Gap (5 - 16) Pending 8 BUN (9 - 20 mg/dL) Pending 32 H Creatinine (0.7 - 1.2 mg/dL) Pending 1.0 Estimated GFR (>60 ml/min) > 60 Glucose (65 - 99 mg/dL) Pending 129 H Lactic Acid (0.7 - 2.1 mmol/L) Pending 2.4 H 2.0 Calcium (8.4 - 10.2 mg/dL) Pending 7.4 L Phosphorus (2.5 - 4.5 mg/dL) Pending 1.9 L Magnesium (1.6 - 2.3 mg/dL) Pending 1.8 Total Bilirubin (0.2 - 1.3 mg/dL) Pending 0.8 AST (17 - 59 U/L) Pending 70 H ALT (21 - 72 U/L) Pending 59 Troponin I (<0.11 ng/ml) 0.02 Albumin (3.5 - 5.0 g/dL) Pending 1.7 L Hematology CBC w Diff Pending WBC Pending RBC Pending Hgb Pending Hct Pending MCV Pending MCH Pending RDW Pending Plt Count Pending MPV Pending PUBS MCHC Pending Other Body Source Stool H. pylori Ag Pending 07/20 07/20 0530 0325 Blood Gas pH (7.35 - 7.45 PH) 7.53 H pCO2 (35 - 45 TORR) 31 L pO2 (80 - 100 TORR) 77 L HCO3 (21 - 28 MEQ/L) 25 ABG O2 Sat (Measured) (>96.0 %) 94.0 L P-50 (Temp Corrected) Y Carboxyhemoglobin (1.5 - 5.0 %) 0.3 L O2 Concentration % 40% Temperature (97.0 - 100.0 FARH) 99.7 Respiration Rate (BPM) 20 O2 Delivery Method ESPRIT Vent Mode AC Expiratory Pressure (CMH2O/P) 5 Tidal Volume (CC) 600 Chemistry Sodium (137 - 145 mmol/L) 140 Potassium (3.5 - 5.1 mmol/L) 3.3 L Chloride (98 - 107 mmol/L) 108 H Carbon Dioxide (22 - 30 mmol/L) 25 Anion Gap (5 - 16) 6 BUN (9 - 20 mg/dL) 33 H Creatinine (0.7 - 1.2 mg/dL) 1.0 Estimated GFR (>60 ml/min) > 60 Glucose (65 - 99 mg/dL) 107 H Calcium (8.4 - 10.2 mg/dL) 7.3 L Phosphorus (2.5 - 4.5 mg/dL) 1.7 L Magnesium (1.6 - 2.3 mg/dL) 1.8 Total Bilirubin (0.2 - 1.3 mg/dL) 0.7 AST (17 - 59 U/L) 56 ALT (21 - 72 U/L) 44 Albumin (3.5 - 5.0 g/dL) 1.5 L Cortisol AM Sample (4.46 - 22.7 ug/dL) 16.4 Hematology CBC w Diff MAN DIFF ORDERED WBC (4.8 - 10.8 /CUMM) 19.8 H RBC (4.70 - 6.10 /CUMM) 3.19 L Hgb (14.0 - 18.0 G/DL) 8.9 L Hct (42 - 52 %) 27.2 L MCV (80.0 - 94.0 FL) 85.3 MCH (27.0 - 31.0 PG) 28.0 RDW (11.5 - 14.5 %) 16.7 H Plt Count (130 - 400 /CUMM) 256 MPV (7.4 - 10.4 FL) 8.8 Gran % (42.2 - 75.2 %) 75.9 H Lymphocytes % (20.5 - 51.1 %) 19.2 L Monocytes % (1.7 - 9.3 %) 4.4 Eosinophils % (0 - 5 %) 0.3 Basophils % (0.0 - 2.0 %) 0.2 Absolute Granulocytes (1.4 - 6.5 /CUMM) 15.0 H Segmented Neutrophils (42.2 - 75.2 %) 76 H Band Neutrophils (0.0 - 5.0 %) 6 H Absolute Lymphocytes (1.2 - 3.4 /CUMM) 3.8 H Lymphocytes (20.5 - 51.1 %) 10 L Monocytes (1.7 - 9.3 %) 6 Absolute Monocytes (0.10 - 0.60 /CUMM) 0.9 H Absolute Eosinophils (0.0 - 0.7 /CUMM) 0.1 Absolute Basophils (0.0 - 0.2 /CUMM) 0 Metamyelocytes (0.0 - 1.0 %) 2 H Platelet Estimate (ADEQUATE) ADEQUATE Polychromasia 1+ Hypochromic-Microcytic 1+ Poikilocytosis 1+ Ovalocytes 1+ PUBS MCHC (33.0 - 37.0 G/DL) 32.8 L Miscellaneous Phlebotomy Draw Site LEFT RADIAL Other Body Source Fld Total RBCs Counted (%) 100 07/19 07/19 1600 0610 Blood Gas pH (7.35 - 7.45 PH) 7.52 H pCO2 (35 - 45 TORR) 30 L pO2 (80 - 100 TORR) 87 HCO3 (21 - 28 MEQ/L) 24 ABG O2 Sat (Measured) (>96.0 %) 97.0 P-50 (Temp Corrected) N Carboxyhemoglobin (1.5 - 5.0 %) 0.3 L O2 Concentration % .40 Respiration Rate (BPM) 20 O2 Delivery Method VENT Vent Mode A/C Expiratory Pressure (CMH2O/P) 5 Tidal Volume (CC) 600 Chemistry Sodium (137 - 145 mmol/L) 141 Potassium (3.5 - 5.1 mmol/L) 3.5 Chloride (98 - 107 mmol/L) 108 H Carbon Dioxide (22 - 30 mmol/L) 25 Anion Gap (5 - 16) 8 BUN (9 - 20 mg/dL) 33 H Creatinine (0.7 - 1.2 mg/dL) 0.9 Estimated GFR (>60 ml/min) > 60 Glucose (65 - 99 mg/dL) 144 H Calcium (8.4 - 10.2 mg/dL) 7.2 L Phosphorus (2.5 - 4.5 mg/dL) 1.9 L Magnesium (1.6 - 2.3 mg/dL) 1.9 Total Bilirubin (0.2 - 1.3 mg/dL) 0.5 AST (17 - 59 U/L) 40 ALT (21 - 72 U/L) 41 Albumin (3.5 - 5.0 g/dL) 1.5 L Hematology CBC w Diff MAN DIFF ORDERED WBC (4.8 - 10.8 /CUMM) 19.0 H RBC (4.70 - 6.10 /CUMM) 3.19 L Hgb (14.0 - 18.0 G/DL) 9.0 L Hct (42 - 52 %) 27.3 L MCV (80.0 - 94.0 FL) 85.5 MCH (27.0 - 31.0 PG) 28.1 RDW (11.5 - 14.5 %) 17.4 H Plt Count (130 - 400 /CUMM) 272 MPV (7.4 - 10.4 FL) 8.9 Gran % (42.2 - 75.2 %) 74.0 Lymphocytes % (20.5 - 51.1 %) 20.0 L Monocytes % (1.7 - 9.3 %) 5.6 Eosinophils % (0 - 5 %) 0.1 Basophils % (0.0 - 2.0 %) 0.3 Absolute Granulocytes (1.4 - 6.5 /CUMM) 14.1 H Segmented Neutrophils (42.2 - 75.2 %) 80 H Band Neutrophils (0.0 - 5.0 %) 3 Absolute Lymphocytes (1.2 - 3.4 /CUMM) 3.8 H Lymphocytes (20.5 - 51.1 %) 14 L Monocytes (1.7 - 9.3 %) 3 Absolute Monocytes (0.10 - 0.60 /CUMM) 1.1 H Absolute Eosinophils (0.0 - 0.7 /CUMM) 0 Absolute Basophils (0.0 - 0.2 /CUMM) 0.1 Nucleated RBCs (0.0 - 0.0 /100WBC) 2 H Platelet Estimate (ADEQUATE) ADEQUATE Polychromasia 1+ Hypochromic-Microcytic 1+ Poikilocytosis 1+ Anisocytosis 1+ PUBS MCHC (33.0 - 37.0 G/DL) 32.8 L Miscellaneous Phlebotomy Draw Site LEFT BRACHIAL Other Body Source Fld Total RBCs Counted (%) 100 07/19 07/18 07/18 0430 1840 0930 Chemistry Sodium (137 - 145 mmol/L) 141 140 Potassium (3.5 - 5.1 mmol/L) 3.5 3.5 Chloride (98 - 107 mmol/L) 110 H 109 H Carbon Dioxide (22 - 30 mmol/L) 24 23 Anion Gap (5 - 16) 8 8 BUN (9 - 20 mg/dL) 31 H 31 H Creatinine (0.7 - 1.2 mg/dL) 1.0 1.0 Estimated GFR (>60 ml/min) > 60 > 60 Glucose (65 - 99 mg/dL) 125 H 142 H Calcium (8.4 - 10.2 mg/dL) 7.2 L 7.2 L Phosphorus (2.5 - 4.5 mg/dL) 2.0 L 2.4 L Magnesium (1.6 - 2.3 mg/dL) 2.0 1.7 Total Bilirubin (0.2 - 1.3 mg/dL) 0.5 0.6 AST (17 - 59 U/L) 38 39 ALT (21 - 72 U/L) 37 38 Albumin (3.5 - 5.0 g/dL) 1.4 L 1.6 L Hematology CBC w Diff MAN DIFF ORDERED WBC (4.8 - 10.8 /CUMM) 20.1 H RBC (4.70 - 6.10 /CUMM) 3.19 L Hgb (14.0 - 18.0 G/DL) 8.9 L Hct (42 - 52 %) 27.1 L MCV (80.0 - 94.0 FL) 85.2 MCH (27.0 - 31.0 PG) 28.0 RDW (11.5 - 14.5 %) 17.0 H Plt Count (130 - 400 /CUMM) 261 MPV (7.4 - 10.4 FL) 8.8 Gran % (42.2 - 75.2 %) 76.9 H Lymphocytes % (20.5 - 51.1 %) 17.7 L Monocytes % (1.7 - 9.3 %) 5.0 Eosinophils % (0 - 5 %) 0.1 Basophils % (0.0 - 2.0 %) 0.3 Absolute Granulocytes (1.4 - 6.5 /CUMM) 15.5 H Segmented Neutrophils (42.2 - 75.2 %) 74 Band Neutrophils (0.0 - 5.0 %) 7 H Absolute Lymphocytes (1.2 - 3.4 /CUMM) 3.6 H Lymphocytes (20.5 - 51.1 %) 14 L Monocytes (1.7 - 9.3 %) 5 Absolute Monocytes (0.10 - 0.60 /CUMM) 1.0 H Absolute Eosinophils (0.0 - 0.7 /CUMM) 0 Absolute Basophils (0.0 - 0.2 /CUMM) 0.1 Nucleated RBCs (0.0 - 0.0 /100WBC) 3 H Platelet Estimate (ADEQUATE) ADEQUATE Polychromasia 1+ Poikilocytosis 1+ Anisocytosis 1+ Stomatocytes 1+ PUBS MCHC (33.0 - 37.0 G/DL) 32.9 L Toxicology Vancomycin Trough (10.0 - 20.0 ug/mL) 7.0 L 07/18 07/18 0832 0420 Blood Gas pH (7.35 - 7.45 PH) 7.43 pCO2 (35 - 45 TORR) 30 L pO2 (80 - 100 TORR) 100 HCO3 (21 - 28 MEQ/L) 20 L ABG O2 Sat (Measured) (>96.0 %) 97.0 P-50 (Temp Corrected) YES Carboxyhemoglobin (1.5 - 5.0 %) 0.1 L O2 Concentration % 45% Temperature (97.0 - 100.0 FARH) 100.5 H Respiration Rate (BPM) 20 O2 Delivery Method VENT Vent Mode AC Expiratory Pressure (CMH2O/P) 5 Tidal Volume (CC) 600 Chemistry Sodium (137 - 145 mmol/L) 140 Potassium (3.5 - 5.1 mmol/L) 3.7 Chloride (98 - 107 mmol/L) 111 H Carbon Dioxide (22 - 30 mmol/L) 21 L Anion Gap (5 - 16) 9 BUN (9 - 20 mg/dL) 34 H Creatinine (0.7 - 1.2 mg/dL) 1.1 Estimated GFR (>60 ml/min) > 60 Glucose (65 - 99 mg/dL) 162 H Calcium (8.4 - 10.2 mg/dL) 7.2 L Phosphorus (2.5 - 4.5 mg/dL) 2.9 Magnesium (1.6 - 2.3 mg/dL) 1.7 Total Bilirubin (0.2 - 1.3 mg/dL) 0.6 AST (17 - 59 U/L) 31 ALT (21 - 72 U/L) 37 Albumin (3.5 - 5.0 g/dL) 1.5 L Hematology CBC w Diff MAN DIFF ORDERED WBC (4.8 - 10.8 /CUMM) 32.5 *H RBC (4.70 - 6.10 /CUMM) 3.68 L Hgb (14.0 - 18.0 G/DL) 10.4 L Hct (42 - 52 %) 32.0 L MCV (80.0 - 94.0 FL) 87.1 MCH (27.0 - 31.0 PG) 28.3 RDW (11.5 - 14.5 %) 17.4 H Plt Count (130 - 400 /CUMM) 306 MPV (7.4 - 10.4 FL) 8.8 Segmented Neutrophils (42.2 - 75.2 %) 85 H Band Neutrophils (0.0 - 5.0 %) 5 Lymphocytes (20.5 - 51.1 %) 4 L Monocytes (1.7 - 9.3 %) 4 Metamyelocytes (0.0 - 1.0 %) 2 H Platelet Estimate (ADEQUATE) ADEQUATE Polychromasia 1+ Hypochromic-Microcytic 1+ Poikilocytosis 1+ Ovalocytes 1+ PUBS MCHC (33.0 - 37.0 G/DL) 32.5 L Miscellaneous Phlebotomy Draw Site LEFT RADIAL Other Body Source Fld Total RBCs Counted (%) 100 Imaging/Other Studies: 07/17/17: EKG- ventricular based complexes, post PPM, 1st degree AVB, diffuse NSST, PRWP *Other numerous pertinent imaging studies reviewed, as per [employer], since admission, with last 07/15/17: CT AP with IV cont, revealing extravasation of contrast into the peritoneal cavity with free air in the upper abdomen. Tip of enteric tube in pylorus. No gastric perforation seen. Assessment/Plan Assessment/Recommendations: 76 y/o male with multiple comorbidities, POD#5 sp ex lap, primary closure and Fabrizio patch of perforated duo ulcer, POD #13 sp initial ex lap w Fabrizio patch, on TPN, angie and levo, octreotide gtt, insulin gtt, and fentanyl gtt, DM, ASHD, CABG, PAF, PPM/AICD, ischemic cardiomyopathy with low EF, previous history of GI bleed, LIAM on CPAP, chronic venous insufficiency, BPH, DJD, post hip replacement with infected right hip secondary to enterococcus, hospitalized over the past few months for antibiotics for the above, renal stones, admitted 07/08/17 with acute abdomen and found to have large perforated duodenal ulcer by imaging studies and OR. He had significant ascites and free air. He was in septic shock with metabolic acidosis and USMAN, intermittently requiring bicarbonate. The above was complicated by peritonitis and postop leak, requiring repeated expiratory laparotomy with primary closure and Fabrizio patch of the perforated duodenal ulcer 07/15/17. The patient had been maintained nutritionally on TPN. He had not yet started enteral feeds through his feeding jejunostomy. He had bile coming from the NG tube. He has 2 Uri-Cotton drains in the right abdomen. Multiple consultants' notes and imaging studies were reviewed. On the evening of 07/19/17, the patient had a brown BM mixed with BRB and maroonish colored liquid, prompting the GI consult. His hemoglobin dropped slightly, but had remained relatively stable over the past 24 hours. As of this morning, 07/20/17, there was no recurrent overt LGI bleeding, as per his RN. The patient is unable to give any meaningful history. He is on the ventilator and partially sedated. He is back on pressors. He also had received stress dose steroids, as per endocrine. I am not certain if the patient ever had a colonoscopy. 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 No history is obtainable from the patient. *The patient's lower GI bleeding, which currently seems to be one of the least of his problems, most probably is from ischemic bowel, either small bowel or colonic in etiology, in a patient with cardiomyopathy, multiple comorbidities, on pressors. NG tube showed bile. The above clinically does not appear to be a rapid transit upper GI bleed. I am not certain if the patient ever had a baseline colonoscopy. As he is on pressors, he currently is not a candidate for flexible sigmoidoscopy/colonoscopy, nor do I think it would acutely change his management at this point. *SUGGEST- Maintain NPO for now. Continue TPN as tolerated. IV Octreotide per surgery. * Advise repeat CT AP (last done 07/15/17). Would not start enteral feeds until bowel is assessed on CT. Maintain central line. Pressors as per ICU. Replete electrolytes. IV Meropenem & Daptomycin per ID & stress dose steroids, insulin tx per endocrine. Check CBC BID for now. T&C 2u PRBC. Keep Hgb > 8 (ASHD). Vent support per ICU. Analgesics prn. IV PPI BID. Consider checking stool Ag H. pylori, post perforated DU. No NSAIDS. DVT prophylaxis. *Supportive care. Please call GI for further input as needed, but again, I do not feel insrtumenting the patient from below will currently blade changer. The above was discussed with the medical housestaff, Dr. Celeste, & Dr. Worthy, who concur. 1 hour of ICU care was spent on the patient. Problem List: 1. Duodenal ulcer with perforation 2. Septic shock 3. Malnutrition 4. Lactic acidosis 5. Hypotension 6. Anemia 7. Ischemic bowel disease 8. Rectal bleeding 9. Peritonitis 10. Leukocytosis Copies To: CATHERINE RODRÍGUEZ,FABIAN; SERENE RODRÍGUEZ,[facility] S.; NYDIA RODRÍGUEZ,BELLE S.; CHAGO RODRÍGUEZ,MERA Figueroa; TED RODRÍGUEZ,ANISHA; BRO RODRÍGUEZ,AV Davis; ISIDORO RODRÍGUEZ,JUAN Cornejo; YVONNE RODRÍGUEZ,BLAINE; JONO RODRÍGUEZ,LAURA Consult Acknowledgment - Thank you for your consult request.
--- NOTE | 2017-07-20 09:43 | PN- Student ---
Subjective Subjective: Chief Complaint & History of Presenting Illness: Mr. Navarro Walls is a 76yo male, with a PMHx of AFib, HFrEF 25-30% (03/14/2017), PPM, CAD s/p CABG (2004), COPD, HLD, DM, BPH, LIAM, presenting to [facility] on 07/08/2017 for a chief complaint of generalized weakness, difficulty walking, and a recent UTI diagnosis. Pt was recently discharged to [facility] with a 6 week course of ampicillin after a recent removal of a hip prosthesis on 04/27/2017. On 07/05/2017, the pt followed up with his enforcement safety officer, Dr. Sanchez, where his blood work yielded a UTI and was therefore placed on Nitrofurantoin which he began taking that . On the morning of 07/08/2017, the patient woke up feeling weak and unable to sit up or walk. EMS was called by his nephew, and the pt was taken to the ED. In the ED, the patient began complaining of lower abdominal pain and nausea. Straight cath revealed 450mL dark colored urine and CT scan on 07/08/2017 showed no intraabdominal process. Pt was started on antibiotics for a presumptive diagnosis of a UTI. Overnight, the patient developed severe abdominal pain with concerns for peritonitis and was therefore transferred to the ICU. CT scan on was significant for new onset diffuse ascites, new intraperitoneal free air in epigastrium, extra-luminal gas near duodenum, and duodenal thickening. Pt was taken to the OR for prompt surgical exploration and repair of a perforated duodenal ulcer. On 07/15/17, CT scan showed scattered free air and a malpositioned drain in the RUQ. Pt was taken to the OR for washout of the uncontrolled leak. He continues to be treated in the ER for severe septic shock on multiple pressorsa and hypoxic respiratory failure. GI consult was placed for concerns of stool hemoccult blood. Allergies: No known allergies at this time Home Medication List: Chief Complaint & History of Presenting Illness: Mr. Navarro Walls is a 76yo male, with a PMHx of AFib, HFrEF 25-30% (03/14/2017), PPM, CAD s/p CABG (2004), COPD, HLD, DM, BPH, LIAM, presenting to [facility] on 07/08/2017 for a chief complaint of generalized weakness, difficulty walking, and a recent UTI diagnosis. Pt was recently discharged to [facility] with a 6 week course of ampicillin after a recent removal of a hip prosthesis on 04/27/2017. On 07/05/2017, the pt followed up with his enforcement safety officer, Dr. Sanchez, where his blood work yielded a UTI and was therefore placed on Nitrofurantoin which he began taking that . On the morning of 07/08/2017, the patient woke up feeling weak and unable to sit up or walk. EMS was called by his nephew, and the pt was taken to the ED. In the ED, the patient began complaining of lower abdominal pain and nausea. Straight cath revealed 450mL dark colored urine and CT scan on 07/08/2017 showed no intraabdominal process. Pt was started on antibiotics for a presumptive diagnosis of a UTI. Overnight, the patient developed severe abdominal pain with concerns for peritonitis and was therefore transferred to the ICU. CT scan on was significant for new onset diffuse ascites, new intraperitoneal free air in epigastrium, extra-luminal gas near duodenum, and duodenal thickening. Pt was taken to the OR for prompt surgical exploration and repair of a perforated duodenal ulcer. On 07/15/17, CT scan showed scattered free air and a malpositioned drain in the RUQ. Pt was taken to the OR for washout of the uncontrolled leak. He continues to be treated in the ER for severe septic shock on multiple pressorsa and hypoxic respiratory failure. GI consult was placed for concerns of stool hemoccult blood. Allergies: No known allergies at this time Home Medication List: Aspirin (Ecotrin*) 81 MG TABLET.DR 1 TAB PO DAILY HEART/BLOOD (Reported) Carvedilol 6.25 MG TABLET 1 TAB PO BID HEART (Reported) Dofetilide 500 MCG CAPSULE 1 CAP PO BID HEART (Reported) Fluticasone-Salmeterol (Advair 100-50 Diskus) 100 MCG-50 MCG/DOSE BLST.W.DEV 1 PUF INH BID COPD (Reported) Liraglutide (Victoza 3-Myles) 0.6 MG/0.1 ML (18 MG/3 ML) PEN.INJCTR 1.2 MG SC QAM DIABETES (Reported) Lisinopril (Prinivil) 5 MG TABLET 1 TAB PO QHS HEART/BP (Reported) Magnesium Gluconate (Mag-G) 27 MG (500 MG) TABLET 1 TAB PO Tuesday SUPPLEMENT (Reported) Metformin HCl 500 MG TABLET 1 TAB PO BID DIABETES (Reported) [place]-3/Dha/Epa/Fish Oil (Fish Oil 500 MG Softgel) 60 MG-90 MG-500 MG CAPSULE 1 CAP PO QPM SUPPLEMENT (Reported) Simvastatin (Zocor*) 10 MG TABLET 1 TAB PO QHS CHOLESTEROL (Reported) Tamsulosin HCl (Flomax) 0.4 MG CAP.ER.24H 1 CAP PO DAILY PROSTATE (Reported) Vitamin E Acetate (Vitamin E) 400 UNIT CAPSULE 1 CAP PO BID SUPPLEMENT ( Reported) Travel History: Denied recent travel Medical History: AFib, HTN, MS, AICD s/p CABG (2003), Bronchitis, LIAM, DM Surgical History: CABG, Hip replacement (right), s/p Lithotripsy Family History: - Mother: at age 60+ secondary to heart disease - Father: Prostate cancer - Brother: Lung cancer Alcohol use: Occassional use Smoking: Former smoker. Quit 10 years ago. 30 pack year history. Illicit drug use: Denies ADLs: Independent Ambulation: Walker IADLs: Needs assistance
--- NOTE | 2017-07-20 10:26 | PN- Cardiology ---
Subjective Subjective: Called to see Mr. Walls for "new" ECG changes. Patient remains intubated and sedated, but can respond by nodding and shaking his head. When queried as to whether he was having any chest discomfort he shook his head "no". Objective Vital Signs and I&Os Vital Signs Date Time Temp Pulse Resp B/P B/P Pulse O2 O2 Flow FiO2 Mean Ox Delivery Rate 07/20 0907 40 07/20 0804 98.7 07/20 0659 101.2 07/20 0636 40 07/20 0414 40 07/20 0400 96 Ventilator 40% 07/20 0218 40 07/20 0000 98.7 68 21 98/50 95 Ventilator 40% 07/20 0000 95 Ventilator 40% 07/19 2216 40 07/19 2000 95 Ventilator 40% 07/19 1940 69 90/49 07/19 1910 40 07/19 1610 40 07/19 1600 98.4 69 20 82/0 96 Ventilator 40% 07/19 1600 96 Ventilator 40% 07/19 1334 40 07/19 1200 95 Ventilator 40% 07/19 1134 40 Intake & Output 07/20 1600 07/20 0800 07/20 0000 07/19 1600 07/19 0800 07/19 0000 Intake Total 1058.0 1388.0 1540.0 1511.0 1808.0 Output Total 564 195 5980 880 1830 Balance 128.0 628.0 290.0 631.0 -22.0 Intake, IV 291 632 505 553 2522 Intake, Lipid 114.0 113.0 120.0 114.0 114.0 Intake, Oral 0 0 0 0 Intake, 653 643 680 651 645 TPN/PPN Number 0 0 1 0 Bowel Movements Output, 80 70 140 80 80 Drainage Output, 150 90 110 200 150 Gastric Drainage Output, Urine 202 801 8781 600 1600 Physical Exam: Well developed, morbidly obese elderly male who is intubated and sedated. Vital signs: See above. Neck: No JVD, no bruits. Lungs: Decreased breath sounds bilaterally. Heart: S1, S2 with grade 2/6 systolic murmur. Abdomen: Some soft and decreased bowel sounds. Extremities: No edema. Current Medications: Current Medications Sig/Buck Start time Last Medication Dose Route Stop Time Status Admin Acetaminophen 1,000 MG Q6P PRN 07/16 0530 07/20 N/A 1 UNIT IV 0659 Budesonide/ 2 PUF BID 07/09 2200 AC 07/20 Formoterol Fumarate INH 0923 Fat Emulsion 350 ML 1900 07/19 1900 AC 07/19 Intravenous IV 07/20 1859 1940 Fat Emulsion 500 ML 1900 07/18 1900 DC 07/18 Intravenous IV 07/19 1859 1942 Fentanyl Citrate 1,000 MCG Q10H 07/16 2200 AC 07/20 Dextrose/Water 250 ML IV 0801 Furosemide 20 MG 7:30 AM, & 4:30 PM 07/19 1630 AC 07/20 IV 0748 Furosemide 20 MG ONCE ONE 07/19 1200 DC 07/19 IV 07/19 1201 1215 Heparin Sodium 5,000 UNIT Q8 07/10 0138 AC 07/20 (Porcine) SC 0511 Hydrocortisone 50 MG Q12 07/19 1000 DC Sodium Succinate IV Insulin Human Regular 100 UNIT Q16H 07/19 1100 AC 07/20 Sodium Chloride 100 ML IV 0801 Insulin Human Regular 100 UNIT Q9H 07/17 1900 DC 07/19 Sodium Chloride 100 ML IV 0117 Meropenem 1 GM Q8H 07/20 1000 AC 07/20 IV 0914 Meropenem 1 GM Q8H 07/16 0200 DC 07/20 IV 0159 Morphine Sulfate 2 MG Q4P PRN 07/14 1145 AC 07/16 IV 0404 Norepinephrine 4 MG Q16H 07/19 2000 AC Sodium Chloride 250 ML IV Norepinephrine 4 MG Q5H 07/17 1300 DC 07/19 Sodium Chloride 250 ML IV 07/19 1959 1940 Octreotide Acetate 500 MCG Q20H 07/15 1400 AC 07/20 Dextrose/Water 500 ML IV 0511 Pantoprazole Sodium 40 MG BID 07/10 1016 AC 07/20 IV 0914 Potassium Chloride 20 MEQ ONCE ONE 07/20 0745 DC 07/20 IV 07/20 0746 0748 Potassium Chloride 20 MEQ Q1H 07/20 0500 DC 07/20 IV 07/20 0601 0616 Potassium Chloride 20 MEQ ONCE ONE 07/19 1830 DC 07/19 IV 07/19 1831 1823 Potassium Chloride 20 MEQ ONCE ONE 07/19 1830 DC 07/19 IV 07/19 1831 1940 Potassium Chloride 20 MEQ Q1H 07/19 1200 CAN IV 07/19 1301 Total Parenteral 1 UNIT 1900 14 1900 AC 07/19 Nutrition IV 07/20 Total Parenteral 1 UNIT 07/18 DC 07/18 Nutrition IV 07/19 Vancomycin HCl 1,500 MG DAILY 07/16 1000 DC 07/18 Sodium Chloride 250 ML IV 1132 Results Last 48 Hrs of Labs/Mics: Laboratory Tests 07/20/17 0900: Lactic Acid Pending, Troponin I Pending 07/20/17 0530: pH 7.53 H, pCO2 31 L, pO2 77 L, HCO3 25, ABG O2 Sat (Measured) 94.0 L, P-50 (Temp Corrected) Y, Carboxyhemoglobin 0.3 L, O2 Concentration % 40%, Temperature 99.7, Respiration Rate 20, O2 Delivery Method ESPRIT, Vent Mode AC, Expiratory Pressure 5, Tidal Volume 600, Phlebotomy Draw Site LEFT RADIAL 07/20/17 0325: Anion Gap 6, Estimated GFR > 60, Glucose 107 H, Calcium 7.3 L, Phosphorus 1.7 L, Magnesium 1.8, Total Bilirubin 0.7, AST 56, ALT 44, Albumin 1.5 L, Cortisol AM Sample 16.4, CBC w Diff MAN DIFF ORDERED, RBC 3.19 L, MCV 85.3, MCH 28.0, RDW 16.7 H, MPV 8.8, Gran % 75.9 H, Lymphocytes % 19.2 L, Monocytes % 4.4, Eosinophils % 0.3, Basophils % 0.2, Absolute Granulocytes 15.0 H, Segmented Neutrophils 76 H, Band Neutrophils 6 H, Absolute Lymphocytes 3.8 H, Lymphocytes 10 L, Monocytes 6, Absolute Monocytes 0.9 H, Absolute Eosinophils 0.1, Absolute Basophils 0, Metamyelocytes 2 H, Platelet Estimate ADEQUATE, Polychromasia 1+, Hypochromic-Microcytic 1+, Poikilocytosis 1+, Ovalocytes 1+, PUBS MCHC 32.8 L, Fld Total RBCs Counted 100 07/19/17 1600: Anion Gap 8, Estimated GFR > 60, Glucose 144 H, Calcium 7.2 L, Phosphorus 1.9 L, Magnesium 1.9, Total Bilirubin 0.5, AST 40, ALT 41, Albumin 1.5 L, CBC w Diff MAN DIFF ORDERED, RBC 3.19 L, MCV 85.5, MCH 28.1, RDW 17.4 H, MPV 8.9, Gran % 74.0, Lymphocytes % 20.0 L, Monocytes % 5.6, Eosinophils % 0.1, Basophils % 0.3, Absolute Granulocytes 14.1 H, Segmented Neutrophils 80 H, Band Neutrophils 3, Absolute Lymphocytes 3.8 H, Lymphocytes 14 L, Monocytes 3, Absolute Monocytes 1.1 H, Absolute Eosinophils 0, Absolute Basophils 0.1, Nucleated RBCs 2 H, Platelet Estimate ADEQUATE, Polychromasia 1+, Hypochromic- Microcytic 1+, Poikilocytosis 1+, Anisocytosis 1+, PUBS MCHC 32.8 L, Fld Total RBCs Counted 100 07/19/17 0610: pH 7.52 H, pCO2 30 L, pO2 87, HCO3 24, ABG O2 Sat (Measured) 97.0, P-50 (Temp Corrected) N, Carboxyhemoglobin 0.3 L, O2 Concentration % .40, Respiration Rate 20, O2 Delivery Method VENT, Vent Mode A/C, Expiratory Pressure 5, Tidal Volume 600, Phlebotomy Draw Site LEFT BRACHIAL 07/19/17 0430: Anion Gap 8, Estimated GFR > 60, Glucose 125 H, Calcium 7.2 L, Phosphorus 2.0 L, Magnesium 2.0, Total Bilirubin 0.5, AST 38, ALT 37, Albumin 1.4 L, CBC w Diff MAN DIFF ORDERED, RBC 3.19 L, MCV 85.2, MCH 28.0, RDW 17.0 H, MPV 8.8, Gran % 76.9 H, Lymphocytes % 17.7 L, Monocytes % 5.0, Eosinophils % 0.1, Basophils % 0.3, Absolute Granulocytes 15.5 H, Segmented Neutrophils 74, Band Neutrophils 7 H, Absolute Lymphocytes 3.6 H, Lymphocytes 14 L, Monocytes 5, Absolute Monocytes 1.0 H, Absolute Eosinophils 0, Absolute Basophils 0.1, Nucleated RBCs 3 H, Platelet Estimate ADEQUATE, Polychromasia 1+, Poikilocytosis 1+, Anisocytosis 1+, Stomatocytes 1+, PUBS MCHC 32.9 L 07/18/17 1840: Anion Gap 8, Estimated GFR > 60, Glucose 142 H, Calcium 7.2 L, Phosphorus 2.4 L, Magnesium 1.7, Total Bilirubin 0.6, AST 39, ALT 38, Albumin 1.6 L Recent Imaging Studies: CXR (07/20/2017): 1. Lines and tubes in place as discussed above. 2. No change in bibasilar opacities, likely a combination of small effusions and associated atelectasis or pneumonia. 3. No evidence of pulmonary edema. Assessment/Plan Assessment/Plan [id number] w/ hx of morbid obesity, LIAM on CPAP, COPD, HTN, HLD, DM, CAD/ICM (s/ p IMI in 1998, CABG 4 w/ WHITE to LAD and individual SVGs to Dx, OM, PDA & MAZE) , and recurrent PAF who presented in an unkempt state via ambulance w/ UTI & subsequently had a perforation of a duodenal ulcer for which he underwent surgery (Fabrizio patch) on 07/09/2017 with worsening clinical status requiring return to the OR on 07/16/2017 for exploratory laparotomy and suture repair duodenal ulcer with Fabrizio patch. He is now in the shock state and on the pressor Levophed (norepinephrine). His electrocardiograms reveal properly functioning pacemaker rhythm with underlying atrial fibrillation, an indeterminate age inferior wall myocardial infarction on non-paced tracings, and on tracings from this morning at 8:23 and 8:26 AM evidence of fusion beats in leads V4-V6, simulating an acute/recent anterolateral WI. Recommendations: * Repeat ECG, hopefully when not pacing, to assess for "new" Q waves in leads V4 -V6. * Obtain serial troponins. * If further ventricular tachycardia would place on amiodarone, although pacemaker functioning properly and should for months, even though near EOL. * Replete potassium and maintain between 4.0-4.5 mEq per liter. * Replete magnesium and maintain at or above 2.0 mEq per liter. * Continue to follow-up on infectious disease, critical care, endocrine, renal and surgical recommendations. * Continue DVT prophylaxis. Continue telemetry? Not applicable (In ICU.)
--- NOTE | 2017-07-20 11:14 | PN- Infect Dx ---
Subjective Subjective: MAXIMUM TEMPERATURE 101.2 on steroids. He became hypotensive overnight and was restarted on pressors. He does note abdominal discomfort Objective Last 24 Hrs of Vital Signs/I&O Vital Signs Date Time Temp Pulse Resp B/P B/P Pulse O2 O2 Flow FiO2 Mean Ox Delivery Rate 07/20 0907 40 07/20 0804 98.7 07/20 0800 95 Ventilator 40% 07/20 0659 101.2 07/20 0636 40 07/20 0414 40 07/20 0400 96 Ventilator 40% 07/20 0218 40 07/20 0000 98.7 68 21 98/50 95 Ventilator 40% 07/20 0000 95 Ventilator 40% 07/19 2216 40 07/19 2000 95 Ventilator 40% 07/19 1940 69 90/49 07/19 1910 40 07/19 1610 40 07/19 1600 98.4 69 20 82/0 96 Ventilator 40% 07/19 1600 96 Ventilator 40% 07/19 1334 40 07/19 1200 95 Ventilator 40% 07/19 1134 40 Intake & Output 07/20 1600 07/20 0800 07/20 0000 Intake Total 1058.0 1388.0 Output Total 930 760 Balance 128.0 628.0 Intake, IV 291 632 Intake, Lipid 114.0 113.0 Intake, Oral 0 0 Intake, 653 643 TPN/PPN Number 0 0 Bowel Movements Output, 80 70 Drainage Output, 150 90 Gastric Drainage Output, Urine 700 600 Physical Exam Other Physical Findings: He is awake and alert on the ventilator in no acute distress Lungs scattered rhonchi bilaterally Heart regular rhythm with no murmur Abdomen is distended, mildly tender on palpation, with positive bowel sounds; WILLEM drains remain in place with 225 mL output from one and 65 mL output from the other yesterday, with purulent drainage from one of the drains Extremities edema of all the extremities, particularly the right upper extremity ; PICC in place in the right upper extremity with no inflammation at the site Duvall catheter remains in place; scrotal edema Results Last 24 Hours of Lab Results: Laboratory Tests 07/20 07/20 07/20 0900 0530 0325 Blood Gas pH (7.35 - 7.45 PH) 7.53 H pCO2 (35 - 45 TORR) 31 L pO2 (80 - 100 TORR) 77 L HCO3 (21 - 28 MEQ/L) 25 ABG O2 Sat (Measured) (>96.0 %) 94.0 L P-50 (Temp Corrected) Y Carboxyhemoglobin (1.5 - 5.0 %) 0.3 L O2 Concentration % 40% Temperature (97.0 - 100.0 FARH) 99.7 Respiration Rate (BPM) 20 O2 Delivery Method ESPRIT Vent Mode AC Expiratory Pressure (CMH2O/P) 5 Tidal Volume (CC) 600 Chemistry Sodium (137 - 145 mmol/L) 140 Potassium (3.5 - 5.1 mmol/L) 3.3 L Chloride (98 - 107 mmol/L) 108 H Carbon Dioxide (22 - 30 mmol/L) 25 Anion Gap (5 - 16) 6 BUN (9 - 20 mg/dL) 33 H Creatinine (0.7 - 1.2 mg/dL) 1.0 Estimated GFR (>60 ml/min) > 60 Glucose (65 - 99 mg/dL) 107 H Lactic Acid (0.7 - 2.1 mmol/L) 2.0 Calcium (8.4 - 10.2 mg/dL) 7.3 L Phosphorus (2.5 - 4.5 mg/dL) 1.7 L Magnesium (1.6 - 2.3 mg/dL) 1.8 Total Bilirubin (0.2 - 1.3 mg/dL) 0.7 AST (17 - 59 U/L) 56 ALT (21 - 72 U/L) 44 Troponin I (<0.11 ng/ml) 0.02 Albumin (3.5 - 5.0 g/dL) 1.5 L Cortisol AM Sample (4.46 - 22.7 ug/dL) 16.4 Hematology CBC w Diff MAN DIFF ORDERED WBC (4.8 - 10.8 /CUMM) 19.8 H RBC (4.70 - 6.10 /CUMM) 3.19 L Hgb (14.0 - 18.0 G/DL) 8.9 L Hct (42 - 52 %) 27.2 L MCV (80.0 - 94.0 FL) 85.3 MCH (27.0 - 31.0 PG) 28.0 RDW (11.5 - 14.5 %) 16.7 H Plt Count (130 - 400 /CUMM) 256 MPV (7.4 - 10.4 FL) 8.8 Gran % (42.2 - 75.2 %) 75.9 H Lymphocytes % (20.5 - 51.1 %) 19.2 L Monocytes % (1.7 - 9.3 %) 4.4 Eosinophils % (0 - 5 %) 0.3 Basophils % (0.0 - 2.0 %) 0.2 Absolute Granulocytes (1.4 - 6.5 /CUMM) 15.0 H Segmented Neutrophils (42.2 - 75.2 %) 76 H Band Neutrophils (0.0 - 5.0 %) 6 H Absolute Lymphocytes (1.2 - 3.4 /CUMM) 3.8 H Lymphocytes (20.5 - 51.1 %) 10 L Monocytes (1.7 - 9.3 %) 6 Absolute Monocytes (0.10 - 0.60 /CUMM) 0.9 H Absolute Eosinophils (0.0 - 0.7 /CUMM) 0.1 Absolute Basophils (0.0 - 0.2 /CUMM) 0 Metamyelocytes (0.0 - 1.0 %) 2 H Platelet Estimate (ADEQUATE) ADEQUATE Polychromasia 1+ Hypochromic-Microcytic 1+ Poikilocytosis 1+ Ovalocytes 1+ PUBS MCHC (33.0 - 37.0 G/DL) 32.8 L Miscellaneous Phlebotomy Draw Site LEFT RADIAL Other Body Source Fld Total RBCs Counted (%) 100 07/19 1600 Chemistry Sodium (137 - 145 mmol/L) 141 Potassium (3.5 - 5.1 mmol/L) 3.5 Chloride (98 - 107 mmol/L) 108 H Carbon Dioxide (22 - 30 mmol/L) 25 Anion Gap (5 - 16) 8 BUN (9 - 20 mg/dL) 33 H Creatinine (0.7 - 1.2 mg/dL) 0.9 Estimated GFR (>60 ml/min) > 60 Glucose (65 - 99 mg/dL) 144 H Calcium (8.4 - 10.2 mg/dL) 7.2 L Phosphorus (2.5 - 4.5 mg/dL) 1.9 L Magnesium (1.6 - 2.3 mg/dL) 1.9 Total Bilirubin (0.2 - 1.3 mg/dL) 0.5 AST (17 - 59 U/L) 40 ALT (21 - 72 U/L) 41 Albumin (3.5 - 5.0 g/dL) 1.5 L Hematology CBC w Diff MAN DIFF ORDERED WBC (4.8 - 10.8 /CUMM) 19.0 H RBC (4.70 - 6.10 /CUMM) 3.19 L Hgb (14.0 - 18.0 G/DL) 9.0 L Hct (42 - 52 %) 27.3 L MCV (80.0 - 94.0 FL) 85.5 MCH (27.0 - 31.0 PG) 28.1 RDW (11.5 - 14.5 %) 17.4 H Plt Count (130 - 400 /CUMM) 272 MPV (7.4 - 10.4 FL) 8.9 Gran % (42.2 - 75.2 %) 74.0 Lymphocytes % (20.5 - 51.1 %) 20.0 L Monocytes % (1.7 - 9.3 %) 5.6 Eosinophils % (0 - 5 %) 0.1 Basophils % (0.0 - 2.0 %) 0.3 Absolute Granulocytes (1.4 - 6.5 /CUMM) 14.1 H Segmented Neutrophils (42.2 - 75.2 %) 80 H Band Neutrophils (0.0 - 5.0 %) 3 Absolute Lymphocytes (1.2 - 3.4 /CUMM) 3.8 H Lymphocytes (20.5 - 51.1 %) 14 L Monocytes (1.7 - 9.3 %) 3 Absolute Monocytes (0.10 - 0.60 /CUMM) 1.1 H Absolute Eosinophils (0.0 - 0.7 /CUMM) 0 Absolute Basophils (0.0 - 0.2 /CUMM) 0.1 Nucleated RBCs (0.0 - 0.0 /100WBC) 2 H Platelet Estimate (ADEQUATE) ADEQUATE Polychromasia 1+ Hypochromic-Microcytic 1+ Poikilocytosis 1+ Anisocytosis 1+ PUBS MCHC (33.0 - 37.0 G/DL) 32.8 L Other Body Source Fld Total RBCs Counted (%) 100 Last 24 Hours of Les Results: Sputum culture July 18 positive for VRE OR culture July 15 labeled peritoneal fluid positive for VRE sensitive to Daptomycin and Linezolid Body fluid from one of the drains July 18 positive for Enterococcus Recent Imaging Studies: Chest x-ray July 20, personally reviewed, reveals bibasilar densities, slightly improved from yesterday Assessment/Plan Impression: Recurrent fever with white blood cell count remaining elevated, though decreased from several days ago, possibly in part secondary to the steroids, which were discontinued yesterday and restarted today, presumably in response to the hypotension which was noted overnight. He is currently on Meropenem now 5 days status post a return to the OR for expiratory laparotomy and suture repair of a leaking duodenal ulcer for peritonitis and an uncontrolled leak, and, given his recurrent fevers and hypotension, will need to treat the VRE which was also isolated from the OR cultures, though its significance remains unclear. He still has a significant amount of drainage from the WILLEM drains, some of which is purulent, which is of some concern. His sputum is also going VRE, but he has no evidence for pneumonia and his respiratory status remains stable. Suggestion: 1. Repeat blood cultures 2 2. Further management of his abdominal wound and drainage per Surgery 3. Begin Daptomycin 500 mg IV every 24 hours 4. Continue Meropenem
[2017-07-20 12:00] VITALS: BP 100/54
[2017-07-20 16:00] VITALS: BP 90/52
[2017-07-20 16:22] LABS: ABSOLUTE BASOPHIL COUNT 0 /CUMM (0.0-0.2); ABSOLUTE EOSINOPHIL COUNT 0 /CUMM (0.0-0.7); ABSOLUTE GRANULOCYTE CT 21.6 /CUMM (1.4-6.5); ABSOLUTE LYMPH COUNT 5.6 /CUMM (1.2-3.4); ABSOLUTE MONOCYTE COUNT 1.6 /CUMM (0.10-0.60); BASOPHIL % 0.1 % (0.0-2.0); EOSINOPHIL % 0.1 % (0-5); GRANULOCYTE % 74.8 % (42.2-75.2); HEMATOCRIT 30.6 % (42-52); MEAN CORPUSCULAR HGB 28.1 PG (27.0-31.0); MEAN CORPUSCULAR HGB CONC 32.6 G/DL (33.0-37.0); MEAN CORPUSCULAR VOLUME 86.1 FL (80.0-94.0); MEAN PLATELET VOLUME 8.9 FL (7.4-10.4); PLATELET COUNT 347 /CUMM (130-400); RBC DISTRIBUTION WIDTH 17.2 % (11.5-14.5); RED BLOOD CELL CT 3.56 /CUMM (4.70-6.10); WHITE BLOOD CELL COUNT 28.9 /CUMM (4.8-10.8)
--- NOTE | 2017-07-20 16:39 | CT SCAN REPORT ---
EXAMINATION: CT ANGIOGRAM ABDOMEN AND PELVIS CLINICAL INFORMATION: Septicemia with question of ischemic colitis. COMPARISON: 07/15/2017 TECHNIQUE: Multiple axial images were obtained through the abdomen and pelvis following the administration of 95 mL of Optiray 350 intravenous contrast. The exam is suboptimal secondary to patient's large size, body habitus and inability to move. There is marked artifact on all slices. Images were evaluated on an independent dedicated 3-D workstation and 3-D images were reconstructed with concurrent radiologist supervision and subsequently interpreted. DLP: 838.35 mGy-cm FINDINGS: VASCULAR FINDINGS: The abdominal aorta demonstrates atherosclerotic changes but there is no stenosis, aneurysm, or dissection. The celiac, SMA and RAMY are all patent. No emboli are seen, but again, the exam is limited secondary to facts described above. There is a single renal artery on the left and 2 on the right. Due to the marked artifact, other than patency, it cannot be adequately assessed. The aortic bifurcation is patent. The common iliac arteries show atherosclerotic changes. There is probably a right common iliac stenosis present but this is difficult to assess. The iliac bifurcations are patent. Both hypogastric arteries are patent but diseased. The external iliac arteries show [id number] disease. A stenosis may be present in the distal left external iliac artery but again, marked artifact precludes adequate assessment. Common femoral arteries demonstrate some atherosclerotic change. Detail on the right is obscured by a hip prosthesis. The proximal portions of the profunda femoris and superficial femoral arteries are patent NONVASCULAR FINDINGS: There are bilateral pleural effusions as well as bilateral lower lobe collapse/atelectasis. A pacemaker/defibrillator is present. 2 surgical drains are present in the right upper quadrant. Tip of the G-tube is present in the stomach. Compared to the prior study, the amount of free air has significantly decreased and now there are only some small locules of free air present. There is some free fluid present at the root of the mesentery, slightly more than was present at the time of the prior study. There is no evidence of bowel obstruction. Extensive sigmoid diverticular changes are present but there is no evidence of wall thickening or suspicious abscesses. The fluid at the root of the mesentery is near the sigmoid, but I do not believe it is related to diverticulitis. It is difficult to ascertain but this patient may very well have had a right hemicolectomy. The quality of the scan is such that artifact precludes adequate assessment. The gallbladder contains high density material. No bile duct dilatation is seen. The liver has a mildly nodular border and the caudate lobe is enlarged. The pancreas is unremarkable. The spleen appears unremarkable. Both adrenal glands appear normal. Bilateral nonobstructive renal calculi are once again seen. No adenopathy is seen. Degenerative changes are present in the spine. Postsurgical changes are present in the abdominal wall but no hernias are seen. IMPRESSION: This is a limited study due to marked artifact. There is no convincing evidence to suggest ischemic bowel. Findings include: 1. Vascular assessment is limited secondary to marked but no gross abnormality is seen involving the mesenteric branches. 2. Probable right common iliac stenosis and left external iliac stenosis. 3. The amount of free air is less. 4. Bilateral small pleural effusions and lower lobe atelectasis. 5. Ascites with fluid at the root of the mesentery. 6. Extensive sigmoid diverticular changes without definite evidence of diverticulitis- unchanged from prior. 7. Probable previous bowel surgery. 3. Bilateral nonobstructive renal calculi.
[2017-07-21] VITALS: BP 112/70
[2017-07-21 04:52] LABS: ABSOLUTE BASOPHIL COUNT 0 /CUMM (0.0-0.2); ABSOLUTE EOSINOPHIL COUNT 0 /CUMM (0.0-0.7); ABSOLUTE GRANULOCYTE CT 14.3 /CUMM (1.4-6.5); ABSOLUTE LYMPH COUNT 4.5 /CUMM (1.2-3.4); ABSOLUTE MONOCYTE COUNT 1.7 /CUMM (0.10-0.60); BASOPHIL % 0.1 % (0.0-2.0); EOSINOPHIL % 0.2 % (0-5); GRANULOCYTE % 69.7 % (42.2-75.2); HEMATOCRIT 29.4 % (42-52); MEAN CORPUSCULAR HGB 28.3 PG (27.0-31.0); MEAN CORPUSCULAR HGB CONC 32.5 G/DL (33.0-37.0); MEAN CORPUSCULAR VOLUME 86.8 FL (80.0-94.0); PLATELET COUNT 349 /CUMM (130-400); RED BLOOD CELL CT 3.38 /CUMM (4.70-6.10); WHITE BLOOD CELL COUNT 20.5 /CUMM (4.8-10.8)
--- NOTE | 2017-07-21 06:05 | PN- General Surgery ---
See Addendum Subjective Subjective: pod#6 s/p revision tono patch repair of perf duodenal ulcer remains intubated, sedated but now responsive to name and tactile stim restarted on on pressor, but weaning also daptomycin added per ID for rising leukocytosis and fevers afebrile now ct scan of abdomen from unremarkable for acute pathology Objective Vital Signs and I&Os Vital Signs Date Time Temp Pulse Resp B/P B/P Pulse O2 O2 Flow FiO2 Mean Ox Delivery Rate 07/21 0400 95 Ventilator 40% 07/21 0329 40 07/21 0120 40 07/21 0000 96 Ventilator 40% 07/21 0000 99.4 69 22 112/70 96 Ventilator 40% 07/20 2308 69 91/45 07/20 2214 40 07/20 2000 97 Ventilator 40% 07/20 1925 40 07/20 1659 40 07/20 1600 97.9 69 23 90/52 97 Ventilator 40% 07/20 1600 96 Ventilator 40% 07/20 1410 40 07/20 1211 40 07/20 1200 98.6 69 20 100/54 98 Ventilator 40% 07/20 1200 96 Ventilator 40% 07/20 0907 40 07/20 0804 98.7 07/20 0800 95 Ventilator 40% 07/20 0800 98.7 77 22 80/0 95 Ventilator 40% 07/20 0659 101.2 07/20 0636 40 Intake & Output 07/21 0800 07/21 0000 07/20 1600 07/20 0800 07/20 0000 07/19 1600 Intake Total 1809.5 1469.5 1058.0 1388.0 1540.0 Output Total 1750 1910 593 445 2832 Balance 59.5 -440.5 128.0 628.0 290.0 Intake, IV 1019.7 681 291 632 740 Intake, Lipid 117.8 117.5 114.0 113.0 120.0 Intake, Oral 0 0 0 0 Intake, 672 671 653 643 680 TPN/PPN Number 0 0 1 Bowel Movements Output, 110 150 80 70 140 Drainage Output, 90 110 150 90 110 Gastric Drainage Output, Urine 1550 [phone] [id number] Physical Exam: GEN: remains intubated, HEENT: NGT in place CARD: [id number] PULM: coarse bs throughout anterior ABD: midline stapleline with drainage at inferior portion of wound, no cellulitis present. drain dressings cdi, JP1 w thicker purulent drainage. JP2, dark bilious drainage w fibrin in bulb, both holding self suction. j-tube to gravity. no bowel sounds. EXT: feet cool bl, 1+ pitting edema B Assessment/Plan Assessment/Plan will follow midline wound closely, may require local care Cont TPN, NPO, start tube feeds strict I&Os JPs to self suction follow up am labs monitor fever trend-abx per ID monitor bowel function IV octreotide, protonix DVT ppx- hep sq medical care per critical care team and consultants
[2017-07-21 08:00] VITALS: BP 110/56
--- NOTE | 2017-07-21 08:20 | PN- Diabetes ---
Assessment/Plan Assessment: 76-year-old male with Hx of CAD with low ejection fraction, atrial fibrillation, AICD, previous infection of hip with prolonged antibiotic, history of peptic ulcer disease, diabetes and renal stone, was admitted for perforation of duodenum now with septic shock in ICU. He was on 3 pressors, TPN, octreotide drip and bicarb drip. His BP remained low and stress dose of steroid was initiated despite his am cortisol was 24.8. His glucose level was in the 300s. Insulin drip was initiated. He is still on TPN and octreotide drip. 99 units of insulin was added to the TPN (12.5% dextrose x 2100 ml/24 hours). patient became hypotensive again. Cortisol level was 16.4 and he was put on Hydrocortisone 50 mg iv every 8 hours and levophed drip. Overnight, he has been on insulin drip at 9 units per hour and his glucose level has been between 138 and 171. Plan: 1. continue stress dose of steroid. 2. continue the insulin drip for now; monitor FSG every one hour and titrate insulin drip rate accordingly.The target of glucose level is between 140 and 180 mg/dl. 3. monitor electrolytes will follow. Subjective Subjective: patient remains intubated. Objective Last 24 Hrs of Vital Signs/I&O Vital Signs Date Time Temp Pulse Resp B/P B/P Pulse O2 O2 Flow FiO2 Mean Ox Delivery Rate 07/21 0603 40 07/21 0400 95 Ventilator 40% 07/21 0329 40 07/21 0120 40 07/21 0000 96 Ventilator 40% 07/21 0000 99.4 69 22 112/70 96 Ventilator 40% 07/20 2308 69 91/45 07/20 2214 40 07/20 2000 97 Ventilator 40% 07/20 1925 40 07/20 1659 40 07/20 1600 97.9 69 23 90/52 97 Ventilator 40% 07/20 1600 96 Ventilator 40% 07/20 1410 40 07/20 1211 40 07/20 1200 98.6 69 20 100/54 98 Ventilator 40% 07/20 1200 96 Ventilator 40% 07/20 0907 40 Intake & Output 07/21 1600 07/21 0800 07/21 0000 Intake Total 1300.0 1809.5 Output Total 860 1750 Balance 440.0 59.5 Intake, IV 558.4 1019.7 Intake, Lipid 110.6 117.8 Intake, Oral 0 0 Intake, 631 672 TPN/PPN Number 0 Bowel Movements Output, 110 110 Drainage Output, 100 90 Gastric Drainage Output, Urine 650 1550 Findings Pertinent Lab/Les Results: Laboratory Tests 07/21 07/21 07/20 0440 0409 2215 Blood Gas pH (7.35 - 7.45 PH) 7.52 H pCO2 (35 - 45 TORR) 32 L pO2 (80 - 100 TORR) 71 L HCO3 (21 - 28 MEQ/L) 26 ABG O2 Sat (Measured) (>96.0 %) 94.0 L P-50 (Temp Corrected) Y Carboxyhemoglobin (1.5 - 5.0 %) 0.3 L O2 Concentration % 40% Temperature (97.0 - 100.0 FARH) 97.8 Respiration Rate (BPM) 16 O2 Delivery Method ESPRIT Vent Mode AC Expiratory Pressure (CMH2O/P) 5 Tidal Volume (CC) 500 Chemistry Sodium (137 - 145 mmol/L) 141 Potassium (3.5 - 5.1 mmol/L) 4.0 Chloride (98 - 107 mmol/L) 107 Carbon Dioxide (22 - 30 mmol/L) 26 Anion Gap (5 - 16) 8 BUN (9 - 20 mg/dL) 31 H Creatinine (0.7 - 1.2 mg/dL) 0.8 Estimated GFR (>60 ml/min) > 60 Glucose (65 - 99 mg/dL) 125 H Calcium (8.4 - 10.2 mg/dL) 7.2 L Phosphorus (2.5 - 4.5 mg/dL) 3.3 Magnesium (1.6 - 2.3 mg/dL) 1.8 Total Bilirubin (0.2 - 1.3 mg/dL) 0.7 AST (17 - 59 U/L) 41 ALT (21 - 72 U/L) 46 Troponin I (<0.11 ng/ml) < 0.01 Albumin (3.5 - 5.0 g/dL) 1.7 L Hematology CBC w Diff MAN DIFF ORDERED WBC (4.8 - 10.8 /CUMM) 20.5 H RBC (4.70 - 6.10 /CUMM) 3.38 L Hgb (14.0 - 18.0 G/DL) 9.6 L Hct (42 - 52 %) 29.4 L MCV (80.0 - 94.0 FL) 86.8 MCH (27.0 - 31.0 PG) 28.3 RDW (11.5 - 14.5 %) 17.0 H Plt Count (130 - 400 /CUMM) 349 MPV (7.4 - 10.4 FL) 9.0 Gran % (42.2 - 75.2 %) 69.7 Lymphocytes % (20.5 - 51.1 %) 21.9 Monocytes % (1.7 - 9.3 %) 8.1 Eosinophils % (0 - 5 %) 0.2 Basophils % (0.0 - 2.0 %) 0.1 Absolute Granulocytes (1.4 - 6.5 /CUMM) 14.3 H Segmented Neutrophils (42.2 - 75.2 %) 58 Band Neutrophils (0.0 - 5.0 %) 6 H Absolute Lymphocytes (1.2 - 3.4 /CUMM) 4.5 H Lymphocytes (20.5 - 51.1 %) 23 Monocytes (1.7 - 9.3 %) 10 H Absolute Monocytes (0.10 - 0.60 /CUMM) 1.7 H Absolute Eosinophils (0.0 - 0.7 /CUMM) 0 Absolute Basophils (0.0 - 0.2 /CUMM) 0 Metamyelocytes (0.0 - 1.0 %) 3 H Nucleated RBCs (0.0 - 0.0 /100WBC) 4 H Platelet Estimate (ADEQUATE) ADEQUATE Polychromasia 1+ Poikilocytosis 1+ Anisocytosis 1+ Stomatocytes 2+ PUBS MCHC (33.0 - 37.0 G/DL) 32.5 L Miscellaneous Phlebotomy Draw Site LEFT RADIAL 07/20 1827 1600 Blood Gas pH (7.35 - 7.45 PH) 7.50 H pCO2 (35 - 45 TORR) 33 L pO2 (80 - 100 TORR) 92 HCO3 (21 - 28 MEQ/L) 25 ABG O2 Sat (Measured) (>96.0 %) 96.0 P-50 (Temp Corrected) N Carboxyhemoglobin (1.5 - 5.0 %) 0.2 L O2 Concentration % 40% Temperature (97.0 - 100.0 FARH) 98.7 Respiration Rate (BPM) 16 O2 Delivery Method ESPRIT VENT Vent Mode AC Expiratory Pressure (CMH2O/P) 5 Tidal Volume (CC) 500 Chemistry Lactic Acid Cancelled Troponin I Cancelled Miscellaneous Phlebotomy Draw Site LEFT RADIAL 07/20 07/20 07/20 1535 1430 1145 Chemistry Sodium (137 - 145 mmol/L) 138 Potassium (3.5 - 5.1 mmol/L) 4.0 Chloride (98 - 107 mmol/L) 106 Carbon Dioxide (22 - 30 mmol/L) 24 Anion Gap (5 - 16) 8 BUN (9 - 20 mg/dL) 31 H Creatinine (0.7 - 1.2 mg/dL) 0.9 Estimated GFR (>60 ml/min) > 60 Glucose (65 - 99 mg/dL) 167 H Lactic Acid (0.7 - 2.1 mmol/L) 1.8 2.4 H Calcium (8.4 - 10.2 mg/dL) 7.4 L Phosphorus (2.5 - 4.5 mg/dL) 2.4 L Magnesium (1.6 - 2.3 mg/dL) 1.8 Total Bilirubin (0.2 - 1.3 mg/dL) 1.0 AST (17 - 59 U/L) 63 H ALT (21 - 72 U/L) 56 Troponin I (<0.11 ng/ml) 0.02 Albumin (3.5 - 5.0 g/dL) 1.7 L Hematology CBC w Diff MAN DIFF ORDERED WBC (4.8 - 10.8 /CUMM) 28.9 H RBC (4.70 - 6.10 /CUMM) 3.56 L Hgb (14.0 - 18.0 G/DL) 10.0 L Hct (42 - 52 %) 30.6 L MCV (80.0 - 94.0 FL) 86.1 MCH (27.0 - 31.0 PG) 28.1 RDW (11.5 - 14.5 %) 17.2 H Plt Count (130 - 400 /CUMM) 347 MPV (7.4 - 10.4 FL) 8.9 Gran % (42.2 - 75.2 %) 74.8 Lymphocytes % (20.5 - 51.1 %) 19.5 L Monocytes % (1.7 - 9.3 %) 5.5 Eosinophils % (0 - 5 %) 0.1 Basophils % (0.0 - 2.0 %) 0.1 Absolute Granulocytes (1.4 - 6.5 /CUMM) 21.6 H Segmented Neutrophils (42.2 - 75.2 %) 74 Band Neutrophils (0.0 - 5.0 %) 7 H Absolute Lymphocytes (1.2 - 3.4 /CUMM) 5.6 H Lymphocytes (20.5 - 51.1 %) 13 L Monocytes (1.7 - 9.3 %) 6 Absolute Monocytes (0.10 - 0.60 /CUMM) 1.6 H Absolute Eosinophils (0.0 - 0.7 /CUMM) 0 Absolute Basophils (0.0 - 0.2 /CUMM) 0 Nucleated RBCs (0.0 - 0.0 /100WBC) 6 H Platelet Estimate (ADEQUATE) ADEQUATE Polychromasia 1+ Hypochromic-Microcytic 1+ Anisocytosis 2+ Stomatocytes 2+ PUBS MCHC (33.0 - 37.0 G/DL) 32.6 L Other Body Source Stool H. pylori Ag Pending 07/20 07/20 1145 0900 Chemistry Sodium (137 - 145 mmol/L) 139 Potassium (3.5 - 5.1 mmol/L) 3.9 Chloride (98 - 107 mmol/L) 107 Carbon Dioxide (22 - 30 mmol/L) 24 Anion Gap (5 - 16) 8 BUN (9 - 20 mg/dL) 32 H Creatinine (0.7 - 1.2 mg/dL) 1.0 Estimated GFR (>60 ml/min) > 60 Glucose (65 - 99 mg/dL) 129 H Lactic Acid (0.7 - 2.1 mmol/L) 2.0 Calcium (8.4 - 10.2 mg/dL) 7.4 L Phosphorus (2.5 - 4.5 mg/dL) 1.9 L Magnesium (1.6 - 2.3 mg/dL) 1.8 Total Bilirubin (0.2 - 1.3 mg/dL) 0.8 AST (17 - 59 U/L) 70 H ALT (21 - 72 U/L) 59 Troponin I (<0.11 ng/ml) 0.02 Albumin (3.5 - 5.0 g/dL) 1.7 L
--- NOTE | 2017-07-21 10:29 | PN- Resident CRCU ---
Everett Colon 07/21/17 1029: Subjective HPI/CRCU Issues: -Status post perforation of duodenal ulcer wiring surgery and then repeat emergent surgery for peritonitis. -Septic shock on pressors -Ischemic heart disease with low ejection fraction -CAD/ICM 24 Hour Events: Patient seen and examined in the morning. Lethargic, not able to provide hx and ros. Blood pressure stable on norepinephrine. Objective Vital Signs & I&O Last 8 Hrs of Vitals and I&O: Intake & Output 07/21 1600 Intake Total 1455.0 Output Total 1100 Balance 355.0 Intake, IV 600 Intake, Lipid 124.0 Intake, 702 TPN/PPN Intake, Tube 9 Feeding Intake, Tube 20 Irrigant Output, 100 Drainage Output, 100 Gastric Drainage Output, Urine 900 Exam General Appearance: no apparent distress Head: atraumatic Neck: supple, Right IJ catheter in place, no inflammation Respiratory: decreased breath sounds, Intubated Cardiovascular: regular rate/rhythm Gastrointestinal: obese, distended, non tender Extremities: b/l pedal edema Weaning Parameters NIF: 25 Minute Volume: 13.4 Resp rate: 23 Vt: 659 Heart Rate: 69 Weaning Schedule Start Time: 1015 Minute Volume: 13.4 Resp Rate: 22 Vt: 569 Heart Rate: 70 End Time: 1230 Minute Volume: 14.2 Resp Rate: 23 Vt: 674 Heart Rate: 68 Current Medications: Current Medications Sig/Buck Start time Last Medication Dose Route Stop Time Status Admin Acetaminophen 1,000 MG Q6P PRN 07/16 0530 07/20 N/A 1 UNIT IV 0659 Budesonide/ 2 PUF BID 07/09 2200 07/21 Formoterol Fumarate INH 0818 Daptomycin 500 MG Q24H 07/20 1130 07/21 Sodium Chloride 50 ML IV 1050 Fat Emulsion 350 ML Q24H 07/21 1900 AC Intravenous IV 07/22 1859 Fat Emulsion 350 ML 1900 07/20 1900 AC 07/20 Intravenous IV 07/21 185 1954 Fat Emulsion 350 ML 0 07/19 190 DC 07/19 Intravenous IV 07/20 1859 1940 Fentanyl Citrate 1,000 MCG Q10H 07/16 2200 07/21 Dextrose/Water 250 ML IV 0549 Furosemide 20 MG 7:30 AM, & 4:30 PM 07/19 1630 07/21 IV 1600 Heparin Sodium 5,000 UNIT Q8 07/10 0138 07/21 (Porcine) SC 1320 Hydrocortisone 50 MG Q8H 07/20 1930 07/21 Sodium Succinate IV 1050 Insulin Human Regular 100 UNIT Q14H 07/21 2359 AC Sodium Chloride 100 ML IV Insulin Human Regular 100 UNIT Q24H 07/21 0800 AC 07/21 Sodium Chloride 100 ML IV 07/21 2359 0936 Insulin Human Regular 100 UNIT Q16H 07/19 1100 DC 07/20 Sodium Chloride 100 ML IV 07/21 0759 2309 Meropenem 1 GM Q8H 07/20 1000 07/21 IV 0915 Morphine Sulfate 2 MG Q4P PRN 07/14 1145 AC 07/16 IV 0404 Norepinephrine 4 MG Q16H 07/19 2000 07/21 Sodium Chloride 250 ML IV 0848 Octreotide Acetate 500 MCG Q20H 07/15 1400 07/21 Dextrose/Water 500 ML IV 0551 Pantoprazole Sodium 40 MG BID 07/10 1016 07/21 IV 0802 Potassium Phosphate 15 mMol ONE ONE 07/20 1730 ME 07/20 Sodium Chloride 250 ML IV 07/20 2134 1849 Total Parenteral 1 UNIT 1900 07/21 1900 AC Nutrition IV 07/22 1859 Total Parenteral 1 UNIT 1700 07/21 1700 DC Nutrition IV 07/22 1659 Total Parenteral 1 UNIT 1900 07/20 1900 AC 07/20 Nutrition IV 07/21 1859 1954 Total Parenteral 1 UNIT 1900 07/19 1900 DC 07/19 Nutrition IV 07/20 1859 1940 Impression/Plan Impression/Problem List Impression: This is a 76-year-old male with past medical history significant for atrial fibrillation, ischemic heart disease with low ejection fraction, previous AICD, history of previous infection of the hip with enterococci, peptic ulcer disease, diabetes presented with UTI, fever, weakness. #Respiratory: -Hypoxic respiratory failure: * Continue with mechanical ventilation, repeat ABG tonight * Chest x-ray and ABG tomorrow morning #Cardiovascular: -Ischemic heart disease with low ejection fraction, CAD/ICM -Close hemodynamic monitoring, continue with pressors; MAP goal 65, follow cardiology recs #ID: -Septic shock, c/w meropenem and daptomycin, follow ID recs #Hematology: -H&H stable, continue monitoring -Monitor leukocytosis #Alimentary/metabolic -Monitor I's and O's -Follow nutrition recommendation for TPN -Follow surgery, GI and endocrinology recommendations -Continue insulin drip and stress dose of steroids -Monitor blood glucose levels #Neurology: -c/w fentanyl for sedation #DVT PPX: -SC Heparin Problem List: 1. Sepsis 2. Duodenal ulcer with perforation Pain Ratin Tomorrow's Labs & Rationales: ICU bundle to monitor electrolytes CBC to monitor H&H Plan DVT/Prophylaxis: mechanical, pharmacological Trey Celeste MD 07/21/17 1034: Attending MD Review Statement Attending Sign Off Attending Cosign Statement: I have: examined this patient, reviewed avalbl EMR data, personally reviewd images, discussd w/resident/PA/BRILLIANDEER LOPPER, discussed mgmt plan w/riya, discussed mgmt plan w/CM, discussed mgmt plan w/pt, agreed w/resident/PA/BRILLIANDEER LOPPER, amended to note. Other Findings: ITrey M.D. have examined this patient, reviewed available EMR data, personally reviewed images, discussed with resident/PA/BRILLIANDEER LOPPER, discussed management plan with housestaff and nursing staff, discussed managment plan all of healthcare providers, discussed management plan with patient and/or family, agreed with resident/PA/BRILLIANDEER LOPPER. The past history and parts of the chart have been autopopulated. Impression 76 year old man * septic shock - enterococcus * a.flutter * duodenal ulcer/s/p perforation, acute peritonitits * ischemic cardiac disease/cad Plan Respiratory -continue mechanical ventilation, reduce tidal volume to 500, repeat abg tonight , reduce rate to 16 -f/u cxr, abgs ID -ID follow up -meropenem CVS -cardiology f/u -hemodynamic monitoring -map goal of 65 Heme -coags and cbc monitoring Metabolic/Alimentary -ins/outs -monitor urine output -TPN -f/u surgical and GI consultations -endocrinology follow up Neuro -fentanyl for sedation DVT prophylaxis at all times TTS 40 min
--- NOTE | 2017-07-21 10:45 | PN- Infect Dx ---
Subjective Subjective: Afebrile on steroids. His blood pressure is improved on decreasing pressors. He feels improved today with no complaints. Objective Last 24 Hrs of Vital Signs/I&O Vital Signs Date Time Temp Pulse Resp B/P B/P Pulse O2 O2 Flow FiO2 Mean Ox Delivery Rate 07/21 0848 69 107/52 07/21 0834 40 07/21 0800 94 Ventilator 40% 07/21 0800 99.4 69 20 110/56 94 Ventilator 40% 07/21 0603 40 07/21 0400 95 Ventilator 40% 07/21 0329 40 07/21 0120 40 07/21 0000 96 Ventilator 40% 07/21 0000 99.4 69 22 112/70 96 Ventilator 40% 07/20 2308 69 91/45 07/20 2214 40 07/20 2000 97 Ventilator 40% 07/20 1925 40 07/20 1659 40 07/20 1600 97.9 69 23 90/52 97 Ventilator 40% 07/20 1600 96 Ventilator 40% 07/20 1410 40 07/20 1211 40 07/20 1200 98.6 69 20 100/54 98 Ventilator 40% 07/20 1200 96 Ventilator 40% Intake & Output 07/21 1600 07/21 0800 07/21 0000 Intake Total 1300.0 1809.5 Output Total 860 1750 Balance 440.0 59.5 Intake, IV 558.4 1019.7 Intake, Lipid 110.6 117.8 Intake, Oral 0 0 Intake, 631 672 TPN/PPN Number 0 Bowel Movements Output, 110 110 Drainage Output, 100 90 Gastric Drainage Output, Urine 650 1550 Physical Exam Other Physical Findings: He appears comfortable in no acute distress Lungs are clear Heart regular rhythm with no murmur Abdomen is soft, nontender with positive bowel sounds; WILLEM drains remain in place with a significant amount of output, particularly from WILLEM drain #1 Extremities decreased edema of all extremities; PICC in the right upper extremity with no inflammation at the site Duvall catheter remains in place Results Last 24 Hours of Lab Results: Laboratory Tests 07/21 07/21 07/20 0440 0408 2215 Blood Gas pH (7.35 - 7.45 PH) 7.52 H pCO2 (35 - 45 TORR) 32 L pO2 (80 - 100 TORR) 71 L HCO3 (21 - 28 MEQ/L) 26 ABG O2 Sat (Measured) (>96.0 %) 94.0 L P-50 (Temp Corrected) Y Carboxyhemoglobin (1.5 - 5.0 %) 0.3 L O2 Concentration % 40% Temperature (97.0 - 100.0 FARH) 97.8 Respiration Rate (BPM) 16 O2 Delivery Method ESPRIT Vent Mode AC Expiratory Pressure (CMH2O/P) 5 Tidal Volume (CC) 500 Chemistry Sodium (137 - 145 mmol/L) 141 Potassium (3.5 - 5.1 mmol/L) 4.0 Chloride (98 - 107 mmol/L) 107 Carbon Dioxide (22 - 30 mmol/L) 26 Anion Gap (5 - 16) 8 BUN (9 - 20 mg/dL) 31 H Creatinine (0.7 - 1.2 mg/dL) 0.8 Estimated GFR (>60 ml/min) > 60 Glucose (65 - 99 mg/dL) 125 H Calcium (8.4 - 10.2 mg/dL) 7.2 L Phosphorus (2.5 - 4.5 mg/dL) 3.3 Magnesium (1.6 - 2.3 mg/dL) 1.8 Total Bilirubin (0.2 - 1.3 mg/dL) 0.7 AST (17 - 59 U/L) 41 ALT (21 - 72 U/L) 46 Troponin I (<0.11 ng/ml) < 0.01 Albumin (3.5 - 5.0 g/dL) 1.7 L Hematology CBC w Diff MAN DIFF ORDERED WBC (4.8 - 10.8 /CUMM) 20.5 H RBC (4.70 - 6.10 /CUMM) 3.38 L Hgb (14.0 - 18.0 G/DL) 9.6 L Hct (42 - 52 %) 29.4 L MCV (80.0 - 94.0 FL) 86.8 MCH (27.0 - 31.0 PG) 28.3 RDW (11.5 - 14.5 %) 17.0 H Plt Count (130 - 400 /CUMM) 349 MPV (7.4 - 10.4 FL) 9.0 Gran % (42.2 - 75.2 %) 69.7 Lymphocytes % (20.5 - 51.1 %) 21.9 Monocytes % (1.7 - 9.3 %) 8.1 Eosinophils % (0 - 5 %) 0.2 Basophils % (0.0 - 2.0 %) 0.1 Absolute Granulocytes (1.4 - 6.5 /CUMM) 14.3 H Segmented Neutrophils (42.2 - 75.2 %) 58 Band Neutrophils (0.0 - 5.0 %) 6 H Absolute Lymphocytes (1.2 - 3.4 /CUMM) 4.5 H Lymphocytes (20.5 - 51.1 %) 23 Monocytes (1.7 - 9.3 %) 10 H Absolute Monocytes (0.10 - 0.60 /CUMM) 1.7 H Absolute Eosinophils (0.0 - 0.7 /CUMM) 0 Absolute Basophils (0.0 - 0.2 /CUMM) 0 Metamyelocytes (0.0 - 1.0 %) 3 H Nucleated RBCs (0.0 - 0.0 /100WBC) 4 H Platelet Estimate (ADEQUATE) ADEQUATE Polychromasia 1+ Poikilocytosis 1+ Anisocytosis 1+ Stomatocytes 2+ PUBS MCHC (33.0 - 37.0 G/DL) 32.5 L Miscellaneous Phlebotomy Draw Site LEFT RADIAL 07/20 182 1600 Blood Gas pH (7.35 - 7.45 PH) 7.50 H pCO2 (35 - 45 TORR) 33 L pO2 (80 - 100 TORR) 92 HCO3 (21 - 28 MEQ/L) 25 ABG O2 Sat (Measured) (>96.0 %) 96.0 P-50 (Temp Corrected) N Carboxyhemoglobin (1.5 - 5.0 %) 0.2 L O2 Concentration % 40% Temperature (97.0 - 100.0 FARH) 98.7 Respiration Rate (BPM) 16 O2 Delivery Method ESPRIT VENT Vent Mode AC Expiratory Pressure (CMH2O/P) 5 Tidal Volume (CC) 500 Chemistry Lactic Acid Cancelled Troponin I Cancelled Miscellaneous Phlebotomy Draw Site LEFT RADIAL 07/20 07/20 07/20 1535 1430 1145 Chemistry Sodium (137 - 145 mmol/L) 138 Potassium (3.5 - 5.1 mmol/L) 4.0 Chloride (98 - 107 mmol/L) 106 Carbon Dioxide (22 - 30 mmol/L) 24 Anion Gap (5 - 16) 8 BUN (9 - 20 mg/dL) 31 H Creatinine (0.7 - 1.2 mg/dL) 0.9 Estimated GFR (>60 ml/min) > 60 Glucose (65 - 99 mg/dL) 167 H Lactic Acid (0.7 - 2.1 mmol/L) 1.8 2.4 H Calcium (8.4 - 10.2 mg/dL) 7.4 L Phosphorus (2.5 - 4.5 mg/dL) 2.4 L Magnesium (1.6 - 2.3 mg/dL) 1.8 Total Bilirubin (0.2 - 1.3 mg/dL) 1.0 AST (17 - 59 U/L) 63 H ALT (21 - 72 U/L) 56 Troponin I (<0.11 ng/ml) 0.02 Albumin (3.5 - 5.0 g/dL) 1.7 L Hematology CBC w Diff MAN DIFF ORDERED WBC (4.8 - 10.8 /CUMM) 28.9 H RBC (4.70 - 6.10 /CUMM) 3.56 L Hgb (14.0 - 18.0 G/DL) 10.0 L Hct (42 - 52 %) 30.6 L MCV (80.0 - 94.0 FL) 86.1 MCH (27.0 - 31.0 PG) 28.1 RDW (11.5 - 14.5 %) 17.2 H Plt Count (130 - 400 /CUMM) 347 MPV (7.4 - 10.4 FL) 8.9 Gran % (42.2 - 75.2 %) 74.8 Lymphocytes % (20.5 - 51.1 %) 19.5 L Monocytes % (1.7 - 9.3 %) 5.5 Eosinophils % (0 - 5 %) 0.1 Basophils % (0.0 - 2.0 %) 0.1 Absolute Granulocytes (1.4 - 6.5 /CUMM) 21.6 H Segmented Neutrophils (42.2 - 75.2 %) 74 Band Neutrophils (0.0 - 5.0 %) 7 H Absolute Lymphocytes (1.2 - 3.4 /CUMM) 5.6 H Lymphocytes (20.5 - 51.1 %) 13 L Monocytes (1.7 - 9.3 %) 6 Absolute Monocytes (0.10 - 0.60 /CUMM) 1.6 H Absolute Eosinophils (0.0 - 0.7 /CUMM) 0 Absolute Basophils (0.0 - 0.2 /CUMM) 0 Nucleated RBCs (0.0 - 0.0 /100WBC) 6 H Platelet Estimate (ADEQUATE) ADEQUATE Polychromasia 1+ Hypochromic-Microcytic 1+ Anisocytosis 2+ Stomatocytes 2+ PUBS MCHC (33.0 - 37.0 G/DL) 32.6 L Other Body Source Stool H. pylori Ag Pending 07/20 1145 Chemistry Sodium (137 - 145 mmol/L) 139 Potassium (3.5 - 5.1 mmol/L) 3.9 Chloride (98 - 107 mmol/L) 107 Carbon Dioxide (22 - 30 mmol/L) 24 Anion Gap (5 - 16) 8 BUN (9 - 20 mg/dL) 32 H Creatinine (0.7 - 1.2 mg/dL) 1.0 Estimated GFR (>60 ml/min) > 60 Glucose (65 - 99 mg/dL) 129 H Calcium (8.4 - 10.2 mg/dL) 7.4 L Phosphorus (2.5 - 4.5 mg/dL) 1.9 L Magnesium (1.6 - 2.3 mg/dL) 1.8 Total Bilirubin (0.2 - 1.3 mg/dL) 0.8 AST (17 - 59 U/L) 70 H ALT (21 - 72 U/L) 59 Albumin (3.5 - 5.0 g/dL) 1.7 L Last 24 Hours of Les Results: Blood cultures 2 July 20 negative Recent Imaging Studies: CT of the abdomen and pelvis angiogram July 20 reveals no gross abnormality involving the mesenteric branches; decreased free air; bilateral small pleural effusions and lower lobe atelectasis; ascites; bilateral nonobstructive renal calculi Assessment/Plan Impression: Improving, though remains on pressors, with no further fevers and with white blood cell count decreased from yesterday afternoon, though still elevated, possibly secondary to the steroids, now on Daptomycin and Meropenem 6 days status post a return to the OR for exploratory laparotomy and suture repair of a leaking duodenal ulcer for peritonitis and an uncontrolled leak, with OR cultures positive for VRE and Enterobacter. He still has a significant amount of drainage from the WILLEM drains, some of which is purulent, which again raises concern for a recurrent leak. Of note his CT scan yesterday was without oral contrast. Suggestion: 1. Further management/evaluation of his abdominal wound and drainage per Surgery 2. Continue Daptomycin and Meropenem
--- NOTE | 2017-07-21 10:58 | Event Note ---
Event Note Event Note: Patient's serum creatinine is 0.8. He is making urine. We will sign off. Please reconsult if further assistance is needed.
[2017-07-21 12:00] VITALS: BP 100/50
--- NOTE | 2017-07-21 12:01 | PN- General Surgery ---
Surgical Brief Attending Note Brief Attending Note: Please please start tube feeds on this critically ill patient. There are no contraindications to taking advantage of using his alimentary tract. The patient needs it.
--- NOTE | 2017-07-21 12:58 | RADIOLOGY REPORT ---
EXAMINATION: XR PORTABLE CHEST CLINICAL INFORMATION: Intubated patient. Increased respiratory rate. COMPARISON: Several prior chest x-rays, most recent of which is dated 07/20/2017. TECHNIQUE: Portable AP semierect view of the chest was obtained. FINDINGS: Endotracheal tube tip is 4.8 cm above the kika. Enteric tube courses into the abdomen with tip not included. Right subclavian PICC line tip is in the cavoatrial junction region. Right atrial pacer lead and right ventricular AICD lead are unchanged. External EKG leads overlie the chest. Median sternotomy wires are again noted. Cardiac silhouette is borderline enlarged, likely due to technique of film. No change in bibasilar opacities is seen, likely due to small effusions and associated atelectasis or consolidation. Upper lungs clear. No pneumothorax. Bony structures are unremarkable. IMPRESSION: 1. Line and tubes in place as discussed above. 2. No change in bibasilar opacities, likely a combination of small effusions and atelectasis/pneumonia.
[2017-07-21 16:00] VITALS: BP 102/50
--- NOTE | 2017-07-21 16:56 | PN- Cardiology ---
Subjective Subjective: Intubated and sedated. Occasional runs of NSVT. Off Levophed. Objective Vital Signs and I&Os Vital Signs Date Time Temp Pulse Resp B/P B/P Pulse O2 O2 Flow FiO2 Mean Ox Delivery Rate 07/21 1600 35 07/21 1347 35 07/21 1200 93 Ventilator 35% 07/21 1200 98.8 69 22 100/50 93 Ventilator 35% 07/21 1142 35 07/21 0848 69 107/52 07/21 0834 40 07/21 0800 94 Ventilator 40% 07/21 0800 99.4 69 20 110/56 94 Ventilator 40% 07/21 0603 40 07/21 0400 95 Ventilator 40% 07/21 0329 40 07/21 0120 40 07/21 0000 96 Ventilator 40% 07/21 0000 99.4 69 22 112/70 96 Ventilator 40% 07/20 2308 69 91/45 07/20 2214 40 07/20 2000 97 Ventilator 40% 07/20 1925 40 07/20 1659 40 Intake & Output 07/21 1600 07/21 0800 07/21 0000 07/20 1600 07/20 0800 07/20 0000 Intake Total 1455.0 1300.0 1809.5 1469.5 1058.0 1388.0 Output Total 4584 939 4497 1910 930 760 Balance 355.0 440.0 59.5 -440.5 128.0 628.0 Intake, IV 600 558.4 1019.7 681 291 632 Intake, Lipid 124.0 110.6 117.8 117.5 114.0 113.0 Intake, Oral 0 0 0 0 0 Intake, 702 631 672 671 653 643 TPN/PPN Intake, Tube 9 Feeding Intake, Tube 20 Irrigant Number 0 0 0 Bowel Movements Output, 100 110 110 150 80 70 Drainage Output, 100 100 90 110 150 90 Gastric Drainage Output, Urine 804 627 3205 1650 700 600 Physical Exam: Well-developed, morbidly obese elderly male who is intubated and sedated. Vital signs: See above. Neck: No JVD, no bruits. Lungs: Decreased breath sounds bilaterally. Heart: S1, S2 with grade 2/6 systolic murmur. Abdomen: Some soft and decreased bowel sounds. Extremities: No edema. Current Medications: Current Medications Sig/Buck Start time Last Medication Dose Route Stop Time Status Admin Acetaminophen 1,000 MG Q6P PRN 07/16 0530 07/20 N/A 1 UNIT IV 0659 Budesonide/ 2 PUF BID 07/09 2200 07/21 Formoterol Fumarate INH 0818 Daptomycin 500 MG Q24H 07/20 1130 07/21 Sodium Chloride 50 ML IV 1050 Fat Emulsion 350 ML Q24H 07/21 1900 AC Intravenous IV 07/22 1859 Fat Emulsion 350 ML 1900 07/20 1900 AC 07/20 Intravenous IV 07/21 1859 1954 Fat Emulsion 350 ML 1900 07/19 1900 DC 07/19 Intravenous IV 07/20 1859 1940 Fentanyl Citrate 1,000 MCG Q10H 07/16 2200 07/21 Dextrose/Water 250 ML IV 0549 Furosemide 20 MG 7:30 AM, & 4:30 PM 07/19 1630 07/21 IV 1600 Heparin Sodium 5,000 UNIT Q8 07/10 0138 07/21 (Porcine) SC 1320 Hydrocortisone 50 MG Q8H 07/20 1930 07/21 Sodium Succinate IV 1050 Insulin Human Regular 100 UNIT Q14H 07/21 2359 AC Sodium Chloride 100 ML IV Insulin Human Regular 100 UNIT Q24H 07/21 0800 07/21 Sodium Chloride 100 ML IV 07/21 2359 0936 Insulin Human Regular 100 UNIT Q16H 07/19 1100 DC 07/20 Sodium Chloride 100 ML IV 07/21 0759 2309 Meropenem 1 GM Q8H 07/20 1000 07/21 IV 0915 Morphine Sulfate 2 MG Q4P PRN 07/14 1145 07/16 IV 0404 Norepinephrine 4 MG .STK-MED ONE 07/21 0840 DC IV 07/21 0841 Norepinephrine 4 MG Q16H 07/19 2000 07/21 Sodium Chloride 250 ML IV 0848 Octreotide Acetate 500 MCG Q20H 07/15 1400 07/21 Dextrose/Water 500 ML IV 0551 Pantoprazole Sodium 40 MG BID 07/10 1016 07/21 IV 0802 Potassium Phosphate 15 mMol ONE ONE 07/20 1730 DC 07/20 Sodium Chloride 250 ML IV 07/20 2134 1849 Total Parenteral 1 UNIT 1900 07/21 1900 AC Nutrition IV 07/22 1859 Total Parenteral 1 UNIT 1700 07/21 1700 DC Nutrition IV 11/17 1659 Total Parenteral 1 UNIT 07/20 AC 07/20 Nutrition IV 07/21 Total Parenteral 1 UNIT 07/19 DC 07/19 Nutrition IV 07/20 Results Last 48 Hrs of Labs/Mics: Laboratory Tests 07/21/17 1625: CBC w Diff Pending, WBC Pending, RBC Pending, Hgb Pending, Hct Pending, MCV Pending, MCH Pending, RDW Pending, Plt Count Pending, MPV Pending, PUBS MCHC Pending 07/21/17 0440: pH 7.52 H, pCO2 32 L, pO2 71 L, HCO3 26, ABG O2 Sat (Measured) 94.0 L, P-50 (Temp Corrected) Y, Carboxyhemoglobin 0.3 L, O2 Concentration % 40%, Temperature 97.8, Respiration Rate 16, O2 Delivery Method ESPRIT, Vent Mode AC, Expiratory Pressure 5, Tidal Volume 500, Phlebotomy Draw Site LEFT RADIAL 07/21/17 0408: Anion Gap 8, Estimated GFR > 60, Glucose 125 H, Calcium 7.2 L, Phosphorus 3.3, Magnesium 1.8, Total Bilirubin 0.7, AST 41, ALT 46, Albumin 1.7 L, Triglycerides 197 H, CBC w Diff MAN DIFF ORDERED, RBC 3.38 L, MCV 86.8, MCH 28.3, RDW 17.0 H, MPV 9.0, Gran % 69.7, Lymphocytes % 21.9, Monocytes % 8.1, Eosinophils % 0.2, Basophils % 0.1, Absolute Granulocytes 14.3 H, Segmented Neutrophils 58, Band Neutrophils 6 H, Absolute Lymphocytes 4.5 H, Lymphocytes 23, Monocytes 10 H, Absolute Monocytes 1.7 H, Absolute Eosinophils 0, Absolute Basophils 0, Metamyelocytes 3 H, Nucleated RBCs 4 H, Platelet Estimate ADEQUATE, Polychromasia 1+, Poikilocytosis 1+, Anisocytosis 1+, Stomatocytes 2+, PUBS MCHC 32.5 L 07/20/17 2215: Troponin I < 0.01 07/20/172009: pH 7.50 H, pCO2 33 L, pO2 92, HCO3 25, ABG O2 Sat (Measured) 96.0, P-50 (Temp Corrected) N, Carboxyhemoglobin 0.2 L, O2 Concentration % 40%, Temperature 98.7 , Respiration Rate 16, O2 Delivery Method ESPRIT VENT, Vent Mode AC, Expiratory Pressure 5, Tidal Volume 500, Phlebotomy Draw Site LEFT RADIAL 07/20/17 1827: Lactic Acid Cancelled 07/20/17 1600: Troponin I Cancelled 07/20/17 1535: Anion Gap 8, Estimated GFR > 60, Glucose 167 H, Lactic Acid 1.8, Calcium 7.4 L , Phosphorus 2.4 L, Magnesium 1.8, Total Bilirubin 1.0, AST 63 H, ALT 56, Troponin I 0.02, Albumin 1.7 L, CBC w Diff MAN DIFF ORDERED, RBC 3.56 L, MCV 86.1, MCH 28.1, RDW 17.2 H, MPV 8.9, Gran % 74.8, Lymphocytes % 19.5 L, Monocytes % 5.5, Eosinophils % 0.1, Basophils % 0.1, Absolute Granulocytes 21.6 H, Segmented Neutrophils 74, Band Neutrophils 7 H, Absolute Lymphocytes 5.6 H, Lymphocytes 13 L, Monocytes 6, Absolute Monocytes 1.6 H, Absolute Eosinophils 0, Absolute Basophils 0, Nucleated RBCs 6 H, Platelet Estimate ADEQUATE, Polychromasia 1+, Hypochromic-Microcytic 1+, Anisocytosis 2+, Stomatocytes 2+, PUBS MCHC 32.6 L 07/20/17 1430: Stool H. pylori Ag Pending 07/20/17 1145: Lactic Acid 2.4 H 07/20/17 1145: Anion Gap 8, Estimated GFR > 60, Glucose 129 H, Calcium 7.4 L, Phosphorus 1.9 L, Magnesium 1.8, Total Bilirubin 0.8, AST 70 H, ALT 59, Albumin 1.7 L 07/20/17 0900: Lactic Acid 2.0, Troponin I 0.02 07/20/17 0530: pH 7.53 H, pCO2 31 L, pO2 77 L, HCO3 25, ABG O2 Sat (Measured) 94.0 L, P-50 (Temp Corrected) Y, Carboxyhemoglobin 0.3 L, O2 Concentration % 40%, Temperature 99.7, Respiration Rate 20, O2 Delivery Method ESPRIT, Vent Mode AC, Expiratory Pressure 5, Tidal Volume 600, Phlebotomy Draw Site LEFT RADIAL 07/20/17 0325: Anion Gap 6, Estimated GFR > 60, Glucose 107 H, Calcium 7.3 L, Phosphorus 1.7 L, Magnesium 1.8, Total Bilirubin 0.7, AST 56, ALT 44, Albumin 1.5 L, Cortisol AM Sample 16.4, CBC w Diff MAN DIFF ORDERED, RBC 3.19 L, MCV 85.3, MCH 28.0, RDW 16.7 H, MPV 8.8, Gran % 75.9 H, Lymphocytes % 19.2 L, Monocytes % 4.4, Eosinophils % 0.3, Basophils % 0.2, Absolute Granulocytes 15.0 H, Segmented Neutrophils 76 H, Band Neutrophils 6 H, Absolute Lymphocytes 3.8 H, Lymphocytes 10 L, Monocytes 6, Absolute Monocytes 0.9 H, Absolute Eosinophils 0.1, Absolute Basophils 0, Metamyelocytes 2 H, Platelet Estimate ADEQUATE, Polychromasia 1+, Hypochromic-Microcytic 1+, Poikilocytosis 1+, Ovalocytes 1+, PUBS MCHC 32.8 L, Fld Total RBCs Counted 100 Recent Imaging Studies: CXR (07/21/2017): 1. Line and tubes in place as discussed above. 2. No change in bibasilar opacities, likely a combination of small effusions and atelectasis/pneumonia. Assessment/Plan Assessment/Plan [id number] w/ hx of morbid obesity, LIAM on CPAP, COPD, HTN, HLD, DM, CAD/ICM (s/ p IMI in 1998, CABG 4 w/ WHITE to LAD and individual SVGs to Dx, OM, PDA & MAZE) , and recurrent PAF who presented in an unkempt state via ambulance w/ UTI & subsequently had a perforation of a duodenal ulcer for which he underwent surgery (Fabrizio patch) on 07/09/2017 with worsening clinical status requiring return to the OR on 07/16/2017 for exploratory laparotomy and suture repair duodenal ulcer with Fabrizio patch. His electrocardiograms reveal properly functioning pacemaker rhythm with underlying atrial fibrillation, an indeterminate age inferior wall myocardial infarction on non-paced tracings, and on tracings from this morning at 8:23 and 8:26 AM evidence of fusion beats in leads V4-V6, simulating an acute/recent anterolateral DE. Recommendations: * Repeat ECG, hopefully when not pacing, to assess for "new" Q waves in leads V4 -V6. * If blood pressure remains stable can consider the addition of low-dose beta guillermo. * If further ventricular tachycardia would place on amiodarone. * Pacemaker functioning properly and should for months, even though near EOL. * Potassium is acceptable and maintain between 4.0-4.5 mEq per liter. * Replete magnesium and maintain at or above 2.0 mEq per liter. * Continue to follow-up on infectious disease, critical care, endocrine, renal and surgical recommendations. * Continue DVT prophylaxis. Continue telemetry? Not applicable (In ICU.)
[2017-07-21 17:09] LABS: ABSOLUTE BASOPHIL COUNT 0 /CUMM (0.0-0.2); ABSOLUTE EOSINOPHIL COUNT 0 /CUMM (0.0-0.7); ABSOLUTE GRANULOCYTE CT 8.6 /CUMM (1.4-6.5); ABSOLUTE MONOCYTE COUNT 1.1 /CUMM (0.10-0.60); BASOPHIL % 0.1 % (0.0-2.0); EOSINOPHIL % 0.1 % (0-5); GRANULOCYTE % 67.6 % (42.2-75.2); HEMATOCRIT 26.9 % (42-52); MEAN CORPUSCULAR HGB 28.3 PG (27.0-31.0); MEAN CORPUSCULAR HGB CONC 32.5 G/DL (33.0-37.0); MEAN CORPUSCULAR VOLUME 87.2 FL (80.0-94.0); MEAN PLATELET VOLUME 9.7 FL (7.4-10.4); PLATELET COUNT 276 /CUMM (130-400); RED BLOOD CELL CT 3.09 /CUMM (4.70-6.10); WHITE BLOOD CELL COUNT 12.7 /CUMM (4.8-10.8)
[2017-07-22] VITALS: BP 103/51
[2017-07-22 04:52] LABS: HEMATOCRIT 26.9 % (42-52); MEAN CORPUSCULAR HGB 28.2 PG (27.0-31.0); MEAN CORPUSCULAR HGB CONC 32.5 G/DL (33.0-37.0); MEAN CORPUSCULAR VOLUME 86.8 FL (80.0-94.0); MEAN PLATELET VOLUME 9.2 FL (7.4-10.4); PLATELET COUNT 261 /CUMM (130-400); RBC DISTRIBUTION WIDTH 17.4 % (11.5-14.5); WHITE BLOOD CELL COUNT 11.7 /CUMM (4.8-10.8)
--- NOTE | 2017-07-22 05:51 | PN- General Surgery ---
See Addendum Subjective Subjective: remains intubated in ICU, though awake and mouthing over vent. off pressors since 4pm yesterday. tolerating tf Objective Vital Signs and I&Os Vital Signs Date Time Temp Pulse Resp B/P B/P Pulse O2 O2 Flow FiO2 Mean Ox Delivery Rate 07/22 0433 40 07/22 0422 35 07/22 0400 93 Ventilator 40% 07/22 0055 35 07/22 0000 98.4 70 19 103/51 90 Ventilator 35% 07/22 0000 91 Ventilator 35% 07/21 2242 35 07/21 2013 69 104/48 07/21 2000 92 Ventilator 35% 07/21 1920 35 07/21 1600 35 07/21 1600 92 Ventilator 35% 07/21 1600 98.3 70 20 102/50 92 Ventilator 35% 07/21 1347 35 07/21 1200 93 Ventilator 35% 07/21 1200 98.8 69 22 100/50 93 Ventilator 35% 07/21 1142 35 07/21 0848 69 107/52 07/21 0834 40 07/21 0800 94 Ventilator 40% 07/21 0800 99.4 69 20 110/56 94 Ventilator 40% 07/21 0603 40 Intake & Output 07/22 0800 07/22 0000 07/21 1600 07/21 0800 07/21 0000 07/20 1600 Intake Total 1194.0 1455.0 1300.0 1809.5 1469.5 Output Total 1030 0761 971 9476 1910 Balance 164.0 355.0 440.0 59.5 -440.5 Intake, IV 319 600 558.4 1019.7 681 Intake, Lipid 110.0 124.0 110.6 117.8 117.5 Intake, Oral 0 0 0 Intake, 627 702 631 672 671 TPN/PPN Intake, Tube 78 9 Feeding Intake, Tube 60 20 Irrigant Number 0 0 Bowel Movements Output, 30 100 110 110 150 Drainage Output, 100 100 100 90 110 Gastric Drainage Output, Urine 900 709 209 7912 1650 Duvall- concentrated, 450+/900/900 JP1- 280/, thick bilious JP2- 24/06/10, bilious Physical Exam: GEN- vented, but alert CARD- s1s2 PULM- coarse throughout, vented ABD- midline w inferior staple out, purulent drainage , wick in place, irrigated w NS, some erythema around open wound, jpx2 w bilious drainage, nt throughout EXT- +edema bl, alps on, feet warm Current Medications: Current Medications Sig/Buck Start time Last Medication Dose Route Stop Time Status Admin Acetaminophen 1,000 MG Q6P PRN 07/16 0530 07/20 N/A 1 UNIT IV 0659 Budesonide/ 2 PUF BID 07/09 220 07/21 Formoterol Fumarate INH 2150 Daptomycin 500 MG Q24H 07/20 1130 07/21 Sodium Chloride 50 ML IV 1050 Fat Emulsion 350 ML Q24H 07/21 1900 07/21 Intravenous IV 07/22 Fat Emulsion 350 ML 1900 07/20 190 DC 07/20 Intravenous IV 07/21 185 195 Fentanyl Citrate 1,000 MCG Q10H 07/16 2200 07/21 Dextrose/Water 250 ML IV 0549 Furosemide 20 MG 7:30 AM, & 4:30 PM 07/19 1630 07/21 IV 1600 Heparin Sodium 5,000 UNIT Q8 07/10 0138 07/21 (Porcine) SC 2156 Hydrocortisone 50 MG Q8H 07/20 1930 07/22 Sodium Succinate IV 0246 Insulin Human Regular 100 UNIT Q11H 07/21 2359 07/22 Sodium Chloride 100 ML IV 0019 Insulin Human Regular 100 UNIT Q24H 07/21 0800 OH 07/21 Sodium Chloride 100 ML IV 07/21 2359 0936 Insulin Human Regular 100 UNIT Q16H 07/19 1100 DC 07/20 Sodium Chloride 100 ML IV 07/21 0759 2309 Meropenem 1 GM Q8H 07/20 1000 07/22 IV 0245 Morphine Sulfate 2 MG Q4P PRN 07/14 1145 07/16 IV 0404 Norepinephrine 4 MG .STK-MED ONE 07/21 0840 DC IV 07/21 0841 Norepinephrine 4 MG Q16H 07/19 2000 07/21 Sodium Chloride 250 ML IV 0848 Octreotide Acetate 500 MCG Q20H 07/15 1400 07/21 Dextrose/Water 500 ML IV 2000 Pantoprazole Sodium 40 MG BID 07/10 1016 07/21 IV 2157 Total Parenteral 1 UNIT 1900 07/21 1900 07/21 Nutrition IV 07/22 Total Parenteral 1 UNIT 1700 07/21 170 DC Nutrition IV 07/22 1659 Total Parenteral 1 UNIT 1900 07/20 1900 DC 07/20 Nutrition IV 07/21 Results Last 48 Hours of Labs: Laboratory Tests 07/22 07/21 0420 1625 Chemistry Sodium (137 - 145 mmol/L) 140 Potassium (3.5 - 5.1 mmol/L) 3.8 Chloride (98 - 107 mmol/L) 105 Carbon Dioxide (22 - 30 mmol/L) 28 Anion Gap (5 - 16) 6 BUN (9 - 20 mg/dL) 33 H Creatinine (0.7 - 1.2 mg/dL) 0.9 Estimated GFR (>60 ml/min) > 60 Glucose (65 - 99 mg/dL) 146 H Calcium (8.4 - 10.2 mg/dL) 7.3 L Phosphorus (2.5 - 4.5 mg/dL) 3.1 Magnesium (1.6 - 2.3 mg/dL) 1.8 Total Bilirubin (0.2 - 1.3 mg/dL) 0.5 AST (17 - 59 U/L) 59 ALT (21 - 72 U/L) 55 Albumin (3.5 - 5.0 g/dL) 1.7 L Hematology CBC w Diff MAN DIFF ORDERED MAN DIFF ORDERED WBC (4.8 - 10.8 /CUMM) 11.7 H 12.7 H RBC (4.70 - 6.10 /CUMM) 3.10 L 3.09 L Hgb (14.0 - 18.0 G/DL) 8.8 L 8.8 L Hct (42 - 52 %) 26.9 L 26.9 L MCV (80.0 - 94.0 FL) 86.8 87.2 MCH (27.0 - 31.0 PG) 28.2 28.3 RDW (11.5 - 14.5 %) 17.4 H 17.0 H Plt Count (130 - 400 /CUMM) 261 276 MPV (7.4 - 10.4 FL) 9.2 9.7 Gran % (42.2 - 75.2 %) 67.6 Lymphocytes % (20.5 - 51.1 %) 23.6 Monocytes % (1.7 - 9.3 %) 8.6 Eosinophils % (0 - 5 %) 0.1 Basophils % (0.0 - 2.0 %) 0.1 Absolute Granulocytes (1.4 - 6.5 /CUMM) 8.6 H Segmented Neutrophils (42.2 - 75.2 %) 68 60 Band Neutrophils (0.0 - 5.0 %) 13 H 6 H Absolute Lymphocytes (1.2 - 3.4 /CUMM) 3.0 Lymphocytes (20.5 - 51.1 %) 10 L 20 L Monocytes (1.7 - 9.3 %) 4 11 H Absolute Monocytes (0.10 - 0.60 /CUMM) 1.1 H Eosinophils (0 - 5.0 %) 1 Absolute Eosinophils (0.0 - 0.7 /CUMM) 0 Absolute Basophils (0.0 - 0.2 /CUMM) 0 Metamyelocytes (0.0 - 1.0 %) 3 H 1 Myelocytes (0 - 0 %) 1 H 2 H Nucleated RBCs (0.0 - 0.0 /100WBC) 2 H Platelet Estimate (ADEQUATE) ADEQUATE ADEQUATE Polychromasia 1+ 1+ Hypochromic-Microcytic 1+ 2+ Poikilocytosis 1+ Basophilic Stippling SLIGHT Anisocytosis 2+ Ovalocytes 1+ PUBS MCHC (33.0 - 37.0 G/DL) 32.5 L 32.5 L Other Body Source Fld Total RBCs Counted (%) 100 07/21 07/21 07/20 0440 0408 2215 Blood Gas pH (7.35 - 7.45 PH) 7.52 H pCO2 (35 - 45 TORR) 32 L pO2 (80 - 100 TORR) 71 L HCO3 (21 - 28 MEQ/L) 26 ABG O2 Sat (Measured) (>96.0 %) 94.0 L P-50 (Temp Corrected) Y Carboxyhemoglobin (1.5 - 5.0 %) 0.3 L O2 Concentration % 40% Temperature (97.0 - 100.0 FARH) 97.8 Respiration Rate (BPM) 16 O2 Delivery Method ESPRIT Vent Mode AC Expiratory Pressure (CMH2O/P) 5 Tidal Volume (CC) 500 Chemistry Sodium (137 - 145 mmol/L) 141 Potassium (3.5 - 5.1 mmol/L) 4.0 Chloride (98 - 107 mmol/L) 107 Carbon Dioxide (22 - 30 mmol/L) 26 Anion Gap (5 - 16) 8 BUN (9 - 20 mg/dL) 31 H Creatinine (0.7 - 1.2 mg/dL) 0.8 Estimated GFR (>60 ml/min) > 60 Glucose (65 - 99 mg/dL) 125 H Calcium (8.4 - 10.2 mg/dL) 7.2 L Phosphorus (2.5 - 4.5 mg/dL) 3.3 Magnesium (1.6 - 2.3 mg/dL) 1.8 Total Bilirubin (0.2 - 1.3 mg/dL) 0.7 AST (17 - 59 U/L) 41 ALT (21 - 72 U/L) 46 Troponin I (<0.11 ng/ml) < 0.01 Albumin (3.5 - 5.0 g/dL) 1.7 L Triglycerides (<150 mg/dL) 197 H Hematology CBC w Diff MAN DIFF ORDERED WBC (4.8 - 10.8 /CUMM) 20.5 H RBC (4.70 - 6.10 /CUMM) 3.38 L Hgb (14.0 - 18.0 G/DL) 9.6 L Hct (42 - 52 %) 29.4 L MCV (80.0 - 94.0 FL) 86.8 MCH (27.0 - 31.0 PG) 28.3 RDW (11.5 - 14.5 %) 17.0 H Plt Count (130 - 400 /CUMM) 349 MPV (7.4 - 10.4 FL) 9.0 Gran % (42.2 - 75.2 %) 69.7 Lymphocytes % (20.5 - 51.1 %) 21.9 Monocytes % (1.7 - 9.3 %) 8.1 Eosinophils % (0 - 5 %) 0.2 Basophils % (0.0 - 2.0 %) 0.1 Absolute Granulocytes (1.4 - 6.5 /CUMM) 14.3 H Segmented Neutrophils (42.2 - 75.2 %) 58 Band Neutrophils (0.0 - 5.0 %) 6 H Absolute Lymphocytes (1.2 - 3.4 /CUMM) 4.5 H Lymphocytes (20.5 - 51.1 %) 23 Monocytes (1.7 - 9.3 %) 10 H Absolute Monocytes (0.10 - 0.60 /CUMM) 1.7 H Absolute Eosinophils (0.0 - 0.7 /CUMM) 0 Absolute Basophils (0.0 - 0.2 /CUMM) 0 Metamyelocytes (0.0 - 1.0 %) 3 H Nucleated RBCs (0.0 - 0.0 /100WBC) 4 H Platelet Estimate (ADEQUATE) ADEQUATE Polychromasia 1+ Poikilocytosis 1+ Anisocytosis 1+ Stomatocytes 2+ PUBS MCHC (33.0 - 37.0 G/DL) 32.5 L Miscellaneous Phlebotomy Draw Site LEFT RADIAL 07/20 182 1600 Blood Gas pH (7.35 - 7.45 PH) 7.50 H pCO2 (35 - 45 TORR) 33 L pO2 (80 - 100 TORR) 92 HCO3 (21 - 28 MEQ/L) 25 ABG O2 Sat (Measured) (>96.0 %) 96.0 P-50 (Temp Corrected) N Carboxyhemoglobin (1.5 - 5.0 %) 0.2 L O2 Concentration % 40% Temperature (97.0 - 100.0 FARH) 98.7 Respiration Rate (BPM) 16 O2 Delivery Method ESPRIT VENT Vent Mode AC Expiratory Pressure (CMH2O/P) 5 Tidal Volume (CC) 500 Chemistry Lactic Acid Cancelled Troponin I Cancelled Miscellaneous Phlebotomy Draw Site LEFT RADIAL 07/20 07/20 07/20 1535 1430 1145 Chemistry Sodium (137 - 145 mmol/L) 138 Potassium (3.5 - 5.1 mmol/L) 4.0 Chloride (98 - 107 mmol/L) 106 Carbon Dioxide (22 - 30 mmol/L) 24 Anion Gap (5 - 16) 8 BUN (9 - 20 mg/dL) 31 H Creatinine (0.7 - 1.2 mg/dL) 0.9 Estimated GFR (>60 ml/min) > 60 Glucose (65 - 99 mg/dL) 167 H Lactic Acid (0.7 - 2.1 mmol/L) 1.8 2.4 H Calcium (8.4 - 10.2 mg/dL) 7.4 L Phosphorus (2.5 - 4.5 mg/dL) 2.4 L Magnesium (1.6 - 2.3 mg/dL) 1.8 Total Bilirubin (0.2 - 1.3 mg/dL) 1.0 AST (17 - 59 U/L) 63 H ALT (21 - 72 U/L) 56 Troponin I (<0.11 ng/ml) 0.02 Albumin (3.5 - 5.0 g/dL) 1.7 L Hematology CBC w Diff MAN DIFF ORDERED WBC (4.8 - 10.8 /CUMM) 28.9 H RBC (4.70 - 6.10 /CUMM) 3.56 L Hgb (14.0 - 18.0 G/DL) 10.0 L Hct (42 - 52 %) 30.6 L MCV (80.0 - 94.0 FL) 86.1 MCH (27.0 - 31.0 PG) 28.1 RDW (11.5 - 14.5 %) 17.2 H Plt Count (130 - 400 /CUMM) 347 MPV (7.4 - 10.4 FL) 8.9 Gran % (42.2 - 75.2 %) 74.8 Lymphocytes % (20.5 - 51.1 %) 19.5 L Monocytes % (1.7 - 9.3 %) 5.5 Eosinophils % (0 - 5 %) 0.1 Basophils % (0.0 - 2.0 %) 0.1 Absolute Granulocytes (1.4 - 6.5 /CUMM) 21.6 H Segmented Neutrophils (42.2 - 75.2 %) 74 Band Neutrophils (0.0 - 5.0 %) 7 H Absolute Lymphocytes (1.2 - 3.4 /CUMM) 5.6 H Lymphocytes (20.5 - 51.1 %) 13 L Monocytes (1.7 - 9.3 %) 6 Absolute Monocytes (0.10 - 0.60 /CUMM) 1.6 H Absolute Eosinophils (0.0 - 0.7 /CUMM) 0 Absolute Basophils (0.0 - 0.2 /CUMM) 0 Nucleated RBCs (0.0 - 0.0 /100WBC) 6 H Platelet Estimate (ADEQUATE) ADEQUATE Polychromasia 1+ Hypochromic-Microcytic 1+ Anisocytosis 2+ Stomatocytes 2+ PUBS MCHC (33.0 - 37.0 G/DL) 32.6 L Other Body Source Stool H. pylori Ag Pending 07/20 07/20 1145 0900 Chemistry Sodium (137 - 145 mmol/L) 139 Potassium (3.5 - 5.1 mmol/L) 3.9 Chloride (98 - 107 mmol/L) 107 Carbon Dioxide (22 - 30 mmol/L) 24 Anion Gap (5 - 16) 8 BUN (9 - 20 mg/dL) 32 H Creatinine (0.7 - 1.2 mg/dL) 1.0 Estimated GFR (>60 ml/min) > 60 Glucose (65 - 99 mg/dL) 129 H Lactic Acid (0.7 - 2.1 mmol/L) 2.0 Calcium (8.4 - 10.2 mg/dL) 7.4 L Phosphorus (2.5 - 4.5 mg/dL) 1.9 L Magnesium (1.6 - 2.3 mg/dL) 1.8 Total Bilirubin (0.2 - 1.3 mg/dL) 0.8 AST (17 - 59 U/L) 70 H ALT (21 - 72 U/L) 59 Troponin I (<0.11 ng/ml) 0.02 Albumin (3.5 - 5.0 g/dL) 1.7 L Assessment/Plan Assessment/Plan A- POD6 sp exlap with primary repair and tono patch of perf duo ulcer, POD13 sp initial exlap with tono patch repair of perf duo ulcer, continues to be in critical condition in ICU on vent, though now off pressors for 14hr and holding sbp in low 100s, and tolerating tube feeds. with wound infection sp 1 staple removed yest by , with continued purulet drainage P- jps to self suction cont tf, tpn midline wound- keep wick in place, daily changes. abx per id monitor bowel fxn iv ppi, octreotide medical mgmt per primary team Core Measures Venous Thromboembolism VTE Risk Factors Acute Medical Illness No Mechanical VTE Prophylaxis d/t Physical Contraindication No VTE Pharm Prophylaxis d/t NA PharmProphylax ordered
[2017-07-22 08:00] VITALS: BP 112/60
--- NOTE | 2017-07-22 08:27 | PN- Diabetes ---
Assessment/Plan Assessment: 76-year-old male with Hx of CAD with low ejection fraction, atrial fibrillation, AICD, previous infection of hip with prolonged antibiotic, history of peptic ulcer disease, diabetes and renal stone, was admitted for perforation of duodenum now with septic shock in ICU. He was on 3 pressors, TPN, octreotide drip and bicarb drip. His BP remained low and stress dose of steroid was initiated despite his am cortisol was 24.8. His glucose level was in the 300s. Insulin drip was initiated. He is still on TPN and octreotide drip. 99 units of insulin was added to the TPN (12.5% dextrose x 2100 ml/24 hours). patient became hypotensive again. Cortisol level was 16.4 and he was put on Hydrocortisone 50 mg iv every 8 hours. Currently patient is off on pressor. He is awake. The tube feeding was initialted. Currently it is at 10 ml/hour. Insulin drip is between 4-5 units per hour. His FSGs were 167, 148, 166, 195, 155, 146 and 182 over past several hours. As per team, most likely patient will be weaned off on TPN while the rate of tube feeding will be gradually increased. Plan: --continue insulin drip for now;monitor FSGs every one hour and then adjust insulin drip rate accordingly; the target of glucose level is between 140 and 180 mg/dl. ---If new TPN will be ordered, I will recommend decreasing insulin in TPN to 75 units today ( 12.5% dextrose x 2100 ml/24 hours). ---please call endocrine if there are any questions. Subjective Subjective: Patient is awake this morning; however, he remains intubated. Pressor has been off. Objective Last 24 Hrs of Vital Signs/I&O Vital Signs Date Time Temp Pulse Resp B/P B/P Pulse O2 O2 Flow FiO2 Mean Ox Delivery Rate 07/22 0820 40 07/22 0626 40 07/22 0433 40 07/22 0422 35 07/22 0400 93 Ventilator 40% 07/22 0055 35 07/22 0000 98.4 70 19 103/51 90 Ventilator 35% 07/22 0000 91 Ventilator 35% 07/21 2242 35 07/21 2013 69 104/48 07/21 2000 92 Ventilator 35% 07/21 1920 35 11/16 1600 35 07/21 1600 92 Ventilator 35% 07/21 1600 98.3 70 20 102/50 92 Ventilator 35% 07/21 1347 35 07/21 1200 93 Ventilator 35% 07/21 1200 98.8 69 22 100/50 93 Ventilator 35% 07/21 1142 35 07/21 0848 69 107/52 07/21 0834 40 Intake & Output 07/22 1600 07/22 0800 07/22 0000 Intake Total 1492.0 1194.0 Output Total 1025 1030 Balance 467.0 164.0 Intake, IV 476 319 Intake, Lipid 115.0 110.0 Intake, 657 627 TPN/PPN Intake, Tube 154 78 Feeding Intake, Tube 90 60 Irrigant Number 0 0 Bowel Movements Output, 300 30 Drainage Output, 25 100 Gastric Drainage Output, Urine 700 900 Findings Pertinent Lab/Les Results: Laboratory Tests 07/22 07/21 0420 1625 Chemistry Sodium (137 - 145 mmol/L) 140 Potassium (3.5 - 5.1 mmol/L) 3.8 Chloride (98 - 107 mmol/L) 105 Carbon Dioxide (22 - 30 mmol/L) 28 Anion Gap (5 - 16) 6 BUN (9 - 20 mg/dL) 33 H Creatinine (0.7 - 1.2 mg/dL) 0.9 Estimated GFR (>60 ml/min) > 60 Glucose (65 - 99 mg/dL) 146 H Calcium (8.4 - 10.2 mg/dL) 7.3 L Phosphorus (2.5 - 4.5 mg/dL) 3.1 Magnesium (1.6 - 2.3 mg/dL) 1.8 Total Bilirubin (0.2 - 1.3 mg/dL) 0.5 AST (17 - 59 U/L) 59 ALT (21 - 72 U/L) 55 Albumin (3.5 - 5.0 g/dL) 1.7 L Hematology CBC w Diff MAN DIFF ORDERED MAN DIFF ORDERED WBC (4.8 - 10.8 /CUMM) 11.7 H 12.7 H RBC (4.70 - 6.10 /CUMM) 3.10 L 3.09 L Hgb (14.0 - 18.0 G/DL) 8.8 L 8.8 L Hct (42 - 52 %) 26.9 L 26.9 L MCV (80.0 - 94.0 FL) 86.8 87.2 MCH (27.0 - 31.0 PG) 28.2 28.3 RDW (11.5 - 14.5 %) 17.4 H 17.0 H Plt Count (130 - 400 /CUMM) 261 276 MPV (7.4 - 10.4 FL) 9.2 9.7 Gran % (42.2 - 75.2 %) 67.6 Lymphocytes % (20.5 - 51.1 %) 23.6 Monocytes % (1.7 - 9.3 %) 8.6 Eosinophils % (0 - 5 %) 0.1 Basophils % (0.0 - 2.0 %) 0.1 Absolute Granulocytes (1.4 - 6.5 /CUMM) 8.6 H Segmented Neutrophils (42.2 - 75.2 %) 68 60 Band Neutrophils (0.0 - 5.0 %) 13 H 6 H Absolute Lymphocytes (1.2 - 3.4 /CUMM) 3.0 Lymphocytes (20.5 - 51.1 %) 10 L 20 L Monocytes (1.7 - 9.3 %) 4 11 H Absolute Monocytes (0.10 - 0.60 /CUMM) 1.1 H Eosinophils (0 - 5.0 %) 1 Absolute Eosinophils (0.0 - 0.7 /CUMM) 0 Absolute Basophils (0.0 - 0.2 /CUMM) 0 Metamyelocytes (0.0 - 1.0 %) 3 H 1 Myelocytes (0 - 0 %) 1 H 2 H Nucleated RBCs (0.0 - 0.0 /100WBC) 2 H Platelet Estimate (ADEQUATE) ADEQUATE ADEQUATE Polychromasia 1+ 1+ Hypochromic-Microcytic 1+ 2+ Poikilocytosis 1+ Basophilic Stippling SLIGHT Anisocytosis 2+ Ovalocytes 1+ PUBS MCHC (33.0 - 37.0 G/DL) 32.5 L 32.5 L Other Body Source Fld Total RBCs Counted (%) 100
--- NOTE | 2017-07-22 08:31 | RADIOLOGY REPORT ---
EXAMINATION: XR PORTABLE CHEST CLINICAL INFORMATION: Respiratory failure. COMPARISON: 07/21/2017 TECHNIQUE: Portable frontal view of the chest was obtained. FINDINGS: The tip of the endotracheal tube is located approximately 5 cm above the kika. The tip of the central catheter is within the distal superior vena cava. The enteric tube is suboptimally visualized. Patient has a large body habitus. Compared to 07/21/2017, there is similar appearance of the bibasilar opacities with small effusions (left remaining worse than right). The upper lung zones are clear. Stable appearance of the enlarged cardiac silhouette with sternotomy wires in place. The AICD leads are difficult to visualize given patient body habitus and exam technique. IMPRESSION: 1. Cardiomegaly without pulmonary edema. 2. Persistent small pleural effusions and bibasilar opacities without appreciable interval change compared to 07/21/2017.
--- NOTE | 2017-07-22 09:12 | PN- Resident CRCU ---
Stephan RODRÍGUEZ,Kyra 07/22/17 0911: Subjective HPI/CRCU Issues: Current issues - * Duodenal perforation status post patch repair(07/09/2017),drain malpositioned leading to uncontrolled leak taken to OR for washout on 07/15/2017 f/b septicemia and shock, jejunostomy tube in place -blood culture is growing - enterobacter aerogenes and enterococcus, growing VRE * Acute on Chronic kidney failure, - ATN and contrast induced nephropathy * Uncontrolled DM, secondary to Sepsis, pressors and octreotide on insulin drip * On ventilator for acute respiratory failure * NSVT * Ansarca -on TPN PMH - * IHD,CABG, LVEF -35% * AF, was on tykosyn * Hx of AICD * Type -2 DM * Hx of CKD * Hx of ECSWL * Hx of PUD * Hx of recent 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 with prolonged antibiotic,s /p post removal in early 2016 * Hyperlipidemia * LIAM 24 Hour Events: Vital signs -temperature 98.8, heart rate 68, respiratory rate 18, blood pressure 100/52, On ventilator weaning protocol -assist-control, respiratory rate 16, tidal volume and 500, FiO2 40%, PEEP -5 Intake 4130 Output -3155 NGT - 225cc WILLEM-1 -395 WILLEM-2 -40 Objective Vital Signs & I&O Last 8 Hrs of Vitals and I&O: Vital signs -temperature 98.8, heart rate 68, respiratory rate 18, blood pressure 100/52, Exam General Appearance: alert, awake, comfortable, intubated Neck: normal inspection, supple Respiratory: chest non-tender, no respiratory distress, quiet respiration Cardiovascular: regular rate/rhythm, edema Gastrointestinal: soft, bowel sounds Extremities: normal inspection, swelling Weaning Parameters NIF: 31 Minute Volume: 11.2 Resp rate: 24 Vt: 547 Heart Rate: 70 Weaning Schedule Start Time: 0820 Minute Volume: 12.4 Resp Rate: 23 Vt: 517 Heart Rate: 69 End Time: 1230 Minute Volume: 14.2 Resp Rate: 23 Vt: 674 Heart Rate: 68 Current Medications: Current Medications Sig/Buck Start time Last Medication Dose Route Stop Time Status Admin Acetaminophen 1,000 MG Q6P PRN 07/16 0530 AC 07/20 N/A 1 UNIT IV 0659 Budesonide/ 2 PUF BID 11/04 2200 AC 07/22 Formoterol Fumarate INH 0819 Carvedilol 3.125 MG BID 07/22 1000 AC 07/22 PO 1127 Daptomycin 500 MG Q24H 07/20 1130 07/22 Sodium Chloride 50 ML IV 1207 Fat Emulsion 350 ML Q24H 07/22 1900 AC Intravenous IV 07/23 1859 Fat Emulsion 350 ML Q24H 07/21 1900 AC 07/21 Intravenous IV 07/22 1852012 Fat Emulsion 350 ML 1900 07/20 1900 DC 07/20 Intravenous IV 07/21 1859 1954 Fentanyl Citrate 1,000 MCG Q24H 07/22 1200 AC Dextrose/Water 250 ML IV Fentanyl Citrate 1,000 MCG Q10H 07/16 2200 DC 07/21 Dextrose/Water 250 ML IV 0549 Furosemide 20 MG 7:30 AM, & 4:30 PM 07/19 1630 07/22 IV 0642 Heparin Sodium 5,000 UNIT Q8 07/10 0138 07/22 (Porcine) SC 0635 Hydrocortisone 50 MG Q8H 07/20 1930 07/22 Sodium Succinate IV 1127 Insulin Human Regular 100 UNIT Q12H 07/22 1800 AC Sodium Chloride 100 ML IV Insulin Human Regular 100 UNIT Q11H 07/21 2359 AC 07/22 Sodium Chloride 100 ML IV 07/22 1759 0019 Insulin Human Regular 100 UNIT Q24H 07/21 0800 DC 07/21 Sodium Chloride 100 ML IV 07/21 2359 0936 Magnesium Sulfate 1 GM ONCE ONE 07/22 0900 DC 07/22 Dextrose/Water 100 ML IV 07/22 1259 0926 Meropenem 1 GM Q8H 07/20 1000 07/22 IV 0926 Morphine Sulfate 2 MG Q4P PRN 07/14 1145 AC 07/16 IV 0404 Norepinephrine 4 MG Q16H 07/19 2000 DC 07/21 Sodium Chloride 250 ML IV 0848 Octreotide Acetate 500 MCG Q20H 07/15 1400 AC 07/22 Dextrose/Water 500 ML IV 0639 Pantoprazole Sodium 40 MG BID 07/10 1016 07/22 IV 0849 Total Parenteral 1 UNIT 1900 07/22 1900 AC Nutrition IV 07/23 1859 Total Parenteral 1 UNIT 1900 07/21 1900 AC 07/21 Nutrition IV 07/22 1852012 Total Parenteral 1 UNIT 1700 07/21 1700 DC Nutrition IV 07/22 1659 Total Parenteral 1 UNIT 1900 07/20 1900 DC 07/20 Nutrition IV 07/21 1859 4 Impression/Plan Impression/Problem List Impression: Duodenal perforation status post patch repair(07/09/2017),drain malpositioned leading to uncontrolled leak taken to OR for washout on 07/15/2017 f/b septicemia and shock;jejunostomy tube in place -blood culture is growing - enterobacter aerogenes and enterococcus, VRE in body fluids * We will continue Meropenem and stopped Vancomycin due to VRE. Continue on Daptomycin(D3). Checked CK is low <20. * Started on J-tube feeding, will decrease TPN rate to 50%, after achievement of tube feeding rate to 40ml/hr. * Strict intake output charting * Vitals every 4 hrly * Continue hydrocortisone due to low cortisol level. Uncontrolled DM, secondary to Sepsis, pressors and octreotide * Following Dr Shemar crain * Will continue Insulin drip * Target Blood sugar 140 -180. * Discussed with surgery - continue Octreotide Acute respiratory failure due to sepsis and shock - * Extubated watch for breathing. CAD,CABG,AICD, NSVT - * He had an episode on NSVT, Started on carvidilol. Ansarca, right arm swelling and decreased peripheral pulsation - albumin -1.4 * Color doppler of right upper arm was negative for DVT. * Continue TPN, withold tube feed for today. Dyselectrolytemia - Low K, Low Mg * Supplemented in TPN and restarted on J tube feeding. Acute on chronic Kidney disease -Cr 0.9- possible ATN/contrast induced nephropathy -recovering * We will continue strict I/O charting. * Avoid nephrotoxins * will follow ICU bundle Nutrition - On TPN/Lipids - 75U on insulin; started on J tube feeding. Code status -Full code DVT prophylaxis - Heparin/ALPS Problem List: 1. Peritonitis 2. Perforated viscus Pain Ratin Tomorrow's Labs & Rationales: cbc,icu bundle, abg, cxr - f/u Plan DVT/Prophylaxis: mechanical, pharmacological Trey Celeste MD 07/22/17 1040: Attending MD Review Statement Attending Sign Off Attending Cosign Statement: I have: examined this patient, reviewed [facility] EMR data, personally reviewd images, discussd w/resident/PA/REINFORCED IRONWORKER, discussed mgmt plan w/riya, discussed mgmt plan w/CM, discussed mgmt plan w/pt, agreed w/resident/PA/REINFORCED IRONWORKER, amended to note. Other Findings: Trey Sharma M.D. have examined this patient, reviewed available EMR data, personally reviewed images, discussed with resident/PA/REINFORCED IRONWORKER, discussed management plan with housestaff and nursing staff, discussed managment plan all of healthcare providers, discussed management plan with patient and/or family, agreed with resident/PA/REINFORCED IRONWORKER. The past history and parts of the chart have been autopopulated. Impression 76 year old man * septic shock - enterococcus * a.flutter * duodenal ulcer/s/p perforation, acute peritonitits * ischemic cardiac disease/cad Plan Respiratory -cpap trials, sbt ID -ID follow up -meropenem CVS -cardiology f/u -hemodynamic monitoring -map goal of 65 Heme -coags and cbc monitoring Metabolic/Alimentary -ins/outs -monitor urine output -feeds per surgery -f/u surgical and GI consultations -endocrinology follow up Neuro -fentanyl for sedation DVT prophylaxis at all times TTS 35 min
--- NOTE | 2017-07-22 10:01 | PN- Infect Dx ---
Subjective Subjective: Afebrile on steroids. He feels improved though still notes some discomfort Objective Last 24 Hrs of Vital Signs/I&O Vital Signs Date Time Temp Pulse Resp B/P B/P Pulse O2 O2 Flow FiO2 Mean Ox Delivery Rate 07/22 0820 40 07/22 0626 40 07/22 0433 40 07/22 0422 35 07/22 0400 93 Ventilator 40% 07/22 0055 35 07/22 0000 98.4 70 19 103/51 90 Ventilator 35% 07/22 0000 91 Ventilator 35% 07/21 2242 35 07/21 2013 69 104/48 07/21 2000 92 Ventilator 35% 07/21 1920 35 07/21 1600 35 07/21 1600 92 Ventilator 35% 07/21 1600 98.3 70 20 102/50 92 Ventilator 35% 07/21 1347 35 07/21 1200 93 Ventilator 35% 07/21 1200 98.8 69 22 100/50 93 Ventilator 35% 07/21 1142 35 Intake & Output 07/22 1600 07/22 0800 07/22 0000 Intake Total 1492.0 1194.0 Output Total 1025 1030 Balance 467.0 164.0 Intake, IV 476 319 Intake, Lipid 115.0 110.0 Intake, 657 627 TPN/PPN Intake, Tube 154 78 Feeding Intake, Tube 90 60 Irrigant Number 0 0 Bowel Movements Output, 300 30 Drainage Output, 25 100 Gastric Drainage Output, Urine 700 900 Physical Exam Other Physical Findings: He appears comfortable on the ventilator in no acute distress Lungs scattered rhonchi bilaterally Heart regular rhythm with no murmur Abdomen is soft, nontender, with positive bowel sounds; incision with purulent drainage from the inferior aspect, status post removal of one staple yesterday; significant bilious output persists from WILLEM #1 with 280 mL output recorded overnight; J-tube in place Extremities 1+ edema all extremities; PICC in the right upper extremity with no inflammation at the site Duvall catheter remains in place Results Last 24 Hours of Lab Results: Laboratory Tests 07/22 1625 Chemistry Sodium (137 - 145 mmol/L) 140 Potassium (3.5 - 5.1 mmol/L) 3.8 Chloride (98 - 107 mmol/L) 105 Carbon Dioxide (22 - 30 mmol/L) 28 Anion Gap (5 - 16) 6 BUN (9 - 20 mg/dL) 33 H Creatinine (0.7 - 1.2 mg/dL) 0.9 Estimated GFR (>60 ml/min) > 60 Glucose (65 - 99 mg/dL) 146 H Calcium (8.4 - 10.2 mg/dL) 7.3 L Phosphorus (2.5 - 4.5 mg/dL) 3.1 Magnesium (1.6 - 2.3 mg/dL) 1.8 Total Bilirubin (0.2 - 1.3 mg/dL) 0.5 AST (17 - 59 U/L) 59 ALT (21 - 72 U/L) 55 Albumin (3.5 - 5.0 g/dL) 1.7 L Hematology CBC w Diff MAN DIFF ORDERED MAN DIFF ORDERED WBC (4.8 - 10.8 /CUMM) 11.7 H 12.7 H RBC (4.70 - 6.10 /CUMM) 3.10 L 3.09 L Hgb (14.0 - 18.0 G/DL) 8.8 L 8.8 L Hct (42 - 52 %) 26.9 L 26.9 L MCV (80.0 - 94.0 FL) 86.8 87.2 MCH (27.0 - 31.0 PG) 28.2 28.3 RDW (11.5 - 14.5 %) 17.4 H 17.0 H Plt Count (130 - 400 /CUMM) 261 276 MPV (7.4 - 10.4 FL) 9.2 9.7 Gran % (42.2 - 75.2 %) 67.6 Lymphocytes % (20.5 - 51.1 %) 23.6 Monocytes % (1.7 - 9.3 %) 8.6 Eosinophils % (0 - 5 %) 0.1 Basophils % (0.0 - 2.0 %) 0.1 Absolute Granulocytes (1.4 - 6.5 /CUMM) 8.6 H Segmented Neutrophils (42.2 - 75.2 %) 68 60 Band Neutrophils (0.0 - 5.0 %) 13 H 6 H Absolute Lymphocytes (1.2 - 3.4 /CUMM) 3.0 Lymphocytes (20.5 - 51.1 %) 10 L 20 L Monocytes (1.7 - 9.3 %) 4 11 H Absolute Monocytes (0.10 - 0.60 /CUMM) 1.1 H Eosinophils (0 - 5.0 %) 1 Absolute Eosinophils (0.0 - 0.7 /CUMM) 0 Absolute Basophils (0.0 - 0.2 /CUMM) 0 Metamyelocytes (0.0 - 1.0 %) 3 H 1 Myelocytes (0 - 0 %) 1 H 2 H Nucleated RBCs (0.0 - 0.0 /100WBC) 2 H Platelet Estimate (ADEQUATE) ADEQUATE ADEQUATE Polychromasia 1+ 1+ Hypochromic-Microcytic 1+ 2+ Poikilocytosis 1+ Basophilic Stippling SLIGHT Anisocytosis 2+ Ovalocytes 1+ PUBS MCHC (33.0 - 37.0 G/DL) 32.5 L 32.5 L Other Body Source Fld Total RBCs Counted (%) 100 Last 24 Hours of Els Results: Blood cultures 2 July 20 remain negative Recent Imaging Studies: Chest x-ray July 22, personally reviewed, reveals persistent small pleural effusions and bibasilar opacities without change Assessment/Plan Impression: Continues to improve, now off pressors, with temperatures remaining normal and white blood cell count decreased on Daptomycin and Meropenem now 1 week status post a return to the OR for exploratory laparotomy and suture repair of a leaking duodenal ulcer for peritonitis and an uncontrolled leak, with OR cultures positive for VRE and Enterobacter. He still has a significant amount of drainage from one WILLEM drain, which raises concern for a recurrent leak, and he has purulent drainage from the inferior aspect of the incision, which may require removal of additional dagoberto. Suggestion: 1. Add a CPK to his blood work from July 20 in view of treatment with Daptomycin 2. Consider repeat CT of the abdomen and pelvis with oral contrast (discuss with Surgery) 3. Further management of his incision per Surgery 4. Continue Daptomycin and Meropenem
--- NOTE | 2017-07-22 11:39 | PN- Cardiology ---
Subjective Subjective: Intubated, sedated, and awake. Continues to have an SVT. Objective Vital Signs and I&Os Vital Signs Date Time Temp Pulse Resp B/P B/P Pulse O2 O2 Flow FiO2 Mean Ox Delivery Rate 07/22 1127 69 114/53 07/22 1115 40 07/22 0820 40 07/22 0626 40 07/22 0433 40 07/22 0422 35 07/22 0400 93 Ventilator 40% 07/22 0055 35 07/22 0000 98.4 70 19 103/51 90 Ventilator 35% 07/22 0000 91 Ventilator 35% 07/21 2242 35 07/21 2013 69 104/48 07/21 2000 92 Ventilator 35% 07/21 1920 35 07/21 1600 35 07/21 1600 92 Ventilator 35% 07/21 1600 98.3 70 20 102/50 92 Ventilator 35% 07/21 1347 35 07/21 1200 93 Ventilator 35% 07/21 1200 98.8 69 22 100/50 93 Ventilator 35% 07/21 1142 35 Intake & Output 07/22 1600 07/22 0800 07/22 0000 07/21 1600 07/21 0800 07/21 0000 Intake Total 1492.0 1194.0 1455.0 1300.0 1809.5 Output Total 1025 1030 5759 115 5751 Balance 467.0 164.0 355.0 440.0 59.5 Intake, IV 476 319 600 558.4 1019.7 Intake, Lipid 115.0 110.0 124.0 110.6 117.8 Intake, Oral 0 0 Intake, 657 627 702 631 672 TPN/PPN Intake, Tube 154 78 9 Feeding Intake, Tube 90 60 20 Irrigant Number 0 0 0 Bowel Movements Output, 300 30 100 110 110 Drainage Output, 25 100 100 100 90 Gastric Drainage Output, Urine [phone] 6135 Physical Exam: Well-developed, morbidly obese elderly male who is intubated and in no acute distress. Spine vital signs: See above. Neck: No JVD, no bruits. Lungs: Clear to auscultation anteriorly. Heart: S1, S2 with grade 2/6 systolic murmur. Abdomen: Soft, nontender, positive bowel sounds. Extremities: Trace lower extremity edema. Current Medications: Current Medications Sig/Buck Start time Last Medication Dose Route Stop Time Status Admin Acetaminophen 1,000 MG Q6P PRN 07/16 0530 07/20 N/A 1 UNIT IV 0659 Budesonide/ 2 PUF BID 07/09 2200 07/22 Formoterol Fumarate INH 0819 Carvedilol 3.125 MG BID 07/22 1000 AC 07/22 PO 1127 Daptomycin 500 MG Q24H 07/20 1130 07/21 Sodium Chloride 50 ML IV 1050 Fat Emulsion 350 ML Q24H 07/22 1900 AC Intravenous IV 07/23 185 Fat Emulsion 350 ML Q24H 07/21 1900 AC 07/21 Intravenous IV 07/22 1852012 Fat Emulsion 350 ML 1900 07/20 1900 DC 07/20 Intravenous IV 07/21 1859 195 Fentanyl Citrate 1,000 MCG Q10H 07/16 2200 07/21 Dextrose/Water 250 ML IV 0549 Furosemide 20 MG 7:30 AM, & 4:30 PM 07/19 1630 07/22 IV 0642 Heparin Sodium 5,000 UNIT Q8 07/10 0138 07/22 (Porcine) SC 0635 Hydrocortisone 50 MG Q8H 07/20 1930 07/22 Sodium Succinate IV 1127 Insulin Human Regular 100 UNIT Q11H 07/21 2359 07/22 Sodium Chloride 100 ML IV 0019 Insulin Human Regular 100 UNIT Q24H 07/21 0800 DC 07/21 Sodium Chloride 100 ML IV 07/21 2359 0936 Magnesium Sulfate 1 GM ONCE ONE 07/22 0900 07/22 Dextrose/Water 100 ML IV 07/22 1259 0926 Meropenem 1 GM Q8H 07/20 1000 07/22 IV 0926 Morphine Sulfate 2 MG Q4P PRN 07/14 1145 07/16 IV 0404 Norepinephrine 4 MG Q16H 07/19 2000 DC 07/21 Sodium Chloride 250 ML IV 0848 Octreotide Acetate 500 MCG Q20H 07/15 1400 07/22 Dextrose/Water 500 ML IV 0639 Pantoprazole Sodium 40 MG BID 07/10 1016 07/22 IV 0849 Total Parenteral 1 UNIT 1900 07/22 1900 AC Nutrition IV 07/23 1859 Total Parenteral 1 UNIT 1900 07/21 1900 07/21 Nutrition IV 07/22 1852012 Total Parenteral 1 UNIT 1700 07/21 1700 DC Nutrition IV 07/22 1659 Total Parenteral 1 UNIT 1900 07/20 190 DC 07/20 Nutrition IV 07/21 Results Last 48 Hrs of Labs/Mics: Laboratory Tests 07/22/17 1040: pH 7.52 H, pCO2 33 L, pO2 89, HCO3 27, ABG O2 Sat (Measured) 96.0, P-50 (Temp Corrected) N, Carboxyhemoglobin 0.3 L, O2 Concentration % 40%, Temperature 98.4 , Respiration Rate 0, O2 Delivery Method VENT, Vent Mode CPAP, Expiratory Pressure 5, Tidal Volume 0, Pressure Support 6, Phlebotomy Draw Site LEFT RADIAL 07/22/17 0420: Anion Gap 6, Estimated GFR > 60, Glucose 146 H, Calcium 7.3 L, Phosphorus 3.1, Magnesium 1.8, Total Bilirubin 0.5, AST 59, ALT 55, Creatine Kinase Pending, Albumin 1.7 L, CBC w Diff MAN DIFF ORDERED, RBC 3.10 L, MCV 86.8, MCH 28.2, RDW 17.4 H, MPV 9.2, Segmented Neutrophils 68, Band Neutrophils 13 H, Lymphocytes 10 L, Monocytes 4, Eosinophils 1, Metamyelocytes 3 H, Myelocytes 1 H, Nucleated RBCs 2 H, Platelet Estimate ADEQUATE, Polychromasia 1+, Hypochromic-Microcytic 1+, Poikilocytosis 1+, Basophilic Stippling SLIGHT, Ovalocytes 1+, PUBS MCHC 32.5 L, Fld Total RBCs Counted 100 07/21/17 1625: CBC w Diff MAN DIFF ORDERED, RBC 3.09 L, MCV 87.2, MCH 28.3, RDW 17.0 H, MPV 9.7, Gran % 67.6, Lymphocytes % 23.6, Monocytes % 8.6, Eosinophils % 0.1, Basophils % 0.1, Absolute Granulocytes 8.6 H, Segmented Neutrophils 60, Band Neutrophils 6 H, Absolute Lymphocytes 3.0, Lymphocytes 20 L, Monocytes 11 H, Absolute Monocytes 1.1 H, Absolute Eosinophils 0, Absolute Basophils 0, Metamyelocytes 1, Myelocytes 2 H, Platelet Estimate ADEQUATE, Polychromasia 1+, Hypochromic-Microcytic 2+, Anisocytosis 2+, PUBS MCHC 32.5 L 07/21/17 0440: pH 7.52 H, pCO2 32 L, pO2 71 L, HCO3 26, ABG O2 Sat (Measured) 94.0 L, P-50 (Temp Corrected) Y, Carboxyhemoglobin 0.3 L, O2 Concentration % 40%, Temperature 97.8, Respiration Rate 16, O2 Delivery Method ESPRIT, Vent Mode AC, Expiratory Pressure 5, Tidal Volume 500, Phlebotomy Draw Site LEFT RADIAL 07/21/17 0408: Anion Gap 8, Estimated GFR > 60, Glucose 125 H, Calcium 7.2 L, Phosphorus 3.3, Magnesium 1.8, Total Bilirubin 0.7, AST 41, ALT 46, Albumin 1.7 L, Triglycerides 197 H, CBC w Diff MAN DIFF ORDERED, RBC 3.38 L, MCV 86.8, MCH 28.3, RDW 17.0 H, MPV 9.0, Gran % 69.7, Lymphocytes % 21.9, Monocytes % 8.1, Eosinophils % 0.2, Basophils % 0.1, Absolute Granulocytes 14.3 H, Segmented Neutrophils 58, Band Neutrophils 6 H, Absolute Lymphocytes 4.5 H, Lymphocytes 23, Monocytes 10 H, Absolute Monocytes 1.7 H, Absolute Eosinophils 0, Absolute Basophils 0, Metamyelocytes 3 H, Nucleated RBCs 4 H, Platelet Estimate ADEQUATE, Polychromasia 1+, Poikilocytosis 1+, Anisocytosis 1+, Stomatocytes 2+, PUBS MCHC 32.5 L 07/20/17 2215: Troponin I < 0.01 07/20/172009: pH 7.50 H, pCO2 33 L, pO2 92, HCO3 25, ABG O2 Sat (Measured) 96.0, P-50 (Temp Corrected) N, Carboxyhemoglobin 0.2 L, O2 Concentration % 40%, Temperature 98.7 , Respiration Rate 16, O2 Delivery Method ESPRIT VENT, Vent Mode AC, Expiratory Pressure 5, Tidal Volume 500, Phlebotomy Draw Site LEFT RADIAL 07/20/17 1827: Lactic Acid Cancelled 07/20/17 1600: Troponin I Cancelled 07/20/17 1535: Anion Gap 8, Estimated GFR > 60, Glucose 167 H, Lactic Acid 1.8, Calcium 7.4 L , Phosphorus 2.4 L, Magnesium 1.8, Total Bilirubin 1.0, AST 63 H, ALT 56, Troponin I 0.02, Albumin 1.7 L, CBC w Diff MAN DIFF ORDERED, RBC 3.56 L, MCV 86.1, MCH 28.1, RDW 17.2 H, MPV 8.9, Gran % 74.8, Lymphocytes % 19.5 L, Monocytes % 5.5, Eosinophils % 0.1, Basophils % 0.1, Absolute Granulocytes 21.6 H, Segmented Neutrophils 74, Band Neutrophils 7 H, Absolute Lymphocytes 5.6 H, Lymphocytes 13 L, Monocytes 6, Absolute Monocytes 1.6 H, Absolute Eosinophils 0, Absolute Basophils 0, Nucleated RBCs 6 H, Platelet Estimate ADEQUATE, Polychromasia 1+, Hypochromic-Microcytic 1+, Anisocytosis 2+, Stomatocytes 2+, PUBS MCHC 32.6 L 07/20/17 1430: Stool H. pylori Ag Pending 07/20/17 1145: Lactic Acid 2.4 H 07/20/17 1145: Anion Gap 8, Estimated GFR > 60, Glucose 129 H, Calcium 7.4 L, Phosphorus 1.9 L, Magnesium 1.8, Total Bilirubin 0.8, AST 70 H, ALT 59, Albumin 1.7 L Recent Imaging Studies: CXR (07/22/2017): 1. Cardiomegaly without pulmonary edema. 2. Persistent small pleural effusions and bibasilar opacities without appreciable interval change compared to 07/21/2017. Assessment/Plan Assessment/Plan [id number] w/ hx of morbid obesity, LIAM on CPAP, COPD, HTN, HLD, DM, CAD/ICM (s/ p IMI in 1998, CABG 4 w/ WHITE to LAD and individual SVGs to Dx, OM, PDA & MAZE) , and recurrent PAF who presented in an unkempt state via ambulance w/ UTI & subsequently had a perforation of a duodenal ulcer for which he underwent surgery (Fabrizio patch) on 07/09/2017 with worsening clinical status requiring return to the OR on 07/16/2017 for exploratory laparotomy and suture repair duodenal ulcer with Fabrizio patch. His electrocardiograms reveal properly functioning pacemaker rhythm with underlying atrial fibrillation, an indeterminate age inferior wall myocardial infarction on non-paced tracings, and on tracings from this morning at 8:23 and 8:26 AM evidence of fusion beats in leads V4-V6, simulating an acute/recent anterolateral GA. Recommendations: * Repeat ECG, when not pacing, to assess for "new" Q waves in leads V4-V6. * Blood pressure has remained stable and agree with initiation of carvedilol 3.125 mg twice daily. * If further ventricular tachycardia can place on amiodarone. * Pacemaker functioning properly and should for months, even though near EOL. * Replete potassium and aim to maintain between 4.0-4.5 mEq per liter. * Replete magnesium and maintain at or above 2.0 mEq per liter. * Continue to follow-up on infectious disease, critical care, endocrine, renal and surgical recommendations. * Continue DVT prophylaxis. Continue telemetry? Not applicable (In ICU.)
[2017-07-22 12:00] VITALS: BP 110/58
[2017-07-22 16:00] VITALS: BP 116/50
[2017-07-23] VITALS: BP 112/50
[2017-07-23 05:38] LABS: ABSOLUTE BASOPHIL COUNT 0 /CUMM (0.0-0.2); ABSOLUTE EOSINOPHIL COUNT 0 /CUMM (0.0-0.7); ABSOLUTE LYMPH COUNT 3.5 /CUMM (1.2-3.4); ABSOLUTE MONOCYTE COUNT 0.8 /CUMM (0.10-0.60); BASOPHIL % 0 % (0.0-2.0); EOSINOPHIL % 0.3 % (0-5); GRANULOCYTE % 64.7 % (42.2-75.2); HEMATOCRIT 26.7 % (42-52); MEAN CORPUSCULAR HGB 28.9 PG (27.0-31.0); MEAN CORPUSCULAR HGB CONC 33.2 G/DL (33.0-37.0); MEAN CORPUSCULAR VOLUME 87.2 FL (80.0-94.0); MEAN PLATELET VOLUME 9.8 FL (7.4-10.4); PLATELET COUNT 283 /CUMM (130-400); RBC DISTRIBUTION WIDTH 17.1 % (11.5-14.5); RED BLOOD CELL CT 3.07 /CUMM (4.70-6.10); WHITE BLOOD CELL COUNT 12.3 /CUMM (4.8-10.8)
--- NOTE | 2017-07-23 05:41 | PN- General Surgery ---
See Addendum Subjective Subjective: remains in icu, extubated and on 50%vm. tolerating tf. more awake, though offers no verbal response to my questions Objective Vital Signs and I&Os Vital Signs Date Time Temp Pulse Resp B/P B/P Pulse O2 O2 Flow FiO2 Mean Ox Delivery Rate 07/23 0400 93 Venti Mask 50% 07/23 0000 97.6 79 24 112/50 93 Venti Mask 50% 07/23 0000 93 Venti Mask 50% 07/22 2142 69 109/53 07/22 2000 92 Nasal 5.0L Cannula 07/22 1600 92 Nasal 5.0L Cannula 07/22 1600 97.8 68 22 116/50 92 Nasal 5.0L Cannula 07/22 1200 Ventilator 40% 07/22 1200 98.2 69 20 110/58 93 Ventilator 40% 07/22 1127 69 114/53 07/22 1115 40 07/22 0820 40 07/22 0800 92 Ventilator 40% 07/22 0800 98.7 77 20 112/60 92 Ventilator 40% 07/22 0626 40 Intake & Output 07/23 0800 07/23 0000 07/22 1600 07/22 0800 07/22 0000 07/21 1600 Intake Total 1336.0 1522.0 1492.0 1194.0 1455.0 Output Total 1260 1160 1025 1030 1100 Balance 76.0 362.0 467.0 164.0 355.0 Intake, IV 289 491 476 319 600 Intake, Lipid 178.0 114.0 115.0 110.0 124.0 Intake, 627 645 657 627 702 TPN/PPN Intake, Tube 162 97 154 78 9 Feeding Intake, Tube 80 175 90 60 20 Irrigant Number 0 0 0 0 Bowel Movements Output, 210 160 300 30 100 Drainage Output, 50 50 25 100 100 Gastric Drainage Output, Urine 1000 950 700 900 900 NGT- 50/50/50 Duvall- 700/1000/950 JP1- 200/200/150, thick light bilious JP2- /06/14, dark green bilious Physical Exam: GEN- nad, awake,extubated CARD- s1s2 PULM- coarse throughout ABD- midline w inferior staple out, purulent drainage , wick changed, irrigated w NS, jpx2 w bilious drainage, nt throughout EXT- +edema bl, alps on, feet warm Assessment/Plan Assessment/Plan A- POD7 sp exlap with primary repair and tono patch of perf duo ulcer, POD14 sp initial exlap with tono patch repair of perf duo ulcer, continues to be in critical condition in ICU, now extubated, on tpn and tolerating tube feeds, no longer requiring pressor support, with wound infection sp staple removal with purulent drainage, with continued bilious output of drain. P- jps to self suction cont tf, tpn, npo, ngt midline wound- keep wick in place, daily changes. abx per id monitor bowel fxn iv ppi, octreotide medical mgmt per primary team Core Measures Venous Thromboembolism VTE Risk Factors Acute Medical Illness No Mechanical VTE Prophylaxis d/t N/A MechProphylax Ordered No VTE Pharm Prophylaxis d/t NA PharmProphylax ordered
[2017-07-23 08:00] VITALS: BP 128/60
--- NOTE | 2017-07-23 08:04 | PN- Resident CRCU ---
Subjective HPI/CRCU Issues: Current issues - * ICU induced psychosis * GI bleed/ bleed from WILLEM drain -? displaced drain/ mucosal * Duodenal perforation status post patch repair(07/09/2017),drain malpositioned leading to uncontrolled leak taken to OR for washout on 07/15/2017 f/b septicemia and shock, jejunostomy tube in place -blood culture is growing - enterobacter aerogenes and enterococcus, growing VRE * Acute on Chronic kidney failure, - ATN and contrast induced nephropathy * Uncontrolled DM, secondary to Sepsis, pressors and octreotide on insulin drip * On ventilator for acute respiratory failure * NSVT * Ansarca -on TPN PMH - * IHD,CABG, LVEF -35% * AF, was on tykosyn * Hx of AICD * Type -2 DM * Hx of CKD * Hx of ECSWL * Hx of PUD * Hx of recent 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 with prolonged antibiotic,s /p post removal in early 2016 * Hyperlipidemia * LIAM * Morbid Obesity 24 Hour Events: Vital signs -temperature 97.4, heart rate 69, respiratory rate 18, blood pressure 139/59, off ventilator/ extubated Intake 4036 Output -3470 NGT -150cc WILLEM-1 -550cc WILLEM-2 -30cc Objective Vital Signs & I&O Last 8 Hrs of Vitals and I&O: Vital signs -temperature 97.4, heart rate 69, respiratory rate 18, blood pressure 139/59, Exam General Appearance: no apparent distress, alert, awake, he is altered, not able to take part in conversation, tachypnoeic Head: atraumatic, normal appearance Neck: normal inspection, supple Respiratory: normal breath sounds, chest non-tender, decreased breath sounds, respiratory distress Cardiovascular: irregularly irregular Gastrointestinal: soft, non-tender, distended, bowel sound positive Extremities: bilateral lower leg swelling Current Medications: Current Medications Sig/Buck Start time Last Medication Dose Route Stop Time Status Admin Acetaminophen 1,000 MG Q6P PRN 07/16 0530 AC 07/20 N/A 1 UNIT IV 0659 Budesonide/ 2 PUF BID 07/09 2200 AC 07/23 Formoterol Fumarate INH 0949 Carvedilol 3.125 MG BID 07/22 1000 AC 07/23 PO 0948 Daptomycin 500 MG Q24H 07/20 1130 AC 07/23 Sodium Chloride 50 ML IV 1031 Fat Emulsion 350 ML Q24H 07/22 1900 07/22 Intravenous IV 07/23 Fat Emulsion 350 ML Q24H 07/21 1900 DC 07/21 Intravenous IV 07/22 Fentanyl Citrate 1,000 MCG Q24H 07/22 1200 DC Dextrose/Water 250 ML IV Furosemide 20 MG 7:30 AM, & 4:30 PM 07/19 1630 07/23 IV 0654 Heparin Sodium 5,000 UNIT Q8 07/10 0138 07/23 (Porcine) SC 0516 Hydrocortisone 50 MG Q8H 07/20 1930 07/23 Sodium Succinate IV 1031 Insulin Human Regular 100 UNIT Q12H 07/22 1800 07/23 Sodium Chloride 100 ML IV 0521 Insulin Human Regular 100 UNIT Q11H 07/21 2359 DC 07/22 Sodium Chloride 100 ML IV 07/22 175 0019 Meropenem 1 GM Q8H 07/20 1000 07/23 IV 0948 Morphine Sulfate 2 MG Q4P PRN 07/14 1145 07/22 IV 1659 Octreotide Acetate 500 MCG Q20H 07/15 1400 AC 07/22 Dextrose/Water 500 ML IV 2133 Pantoprazole Sodium 40 MG BID 07/10 1016 07/23 IV 0948 Total Parenteral 1 UNIT 1900 07/23 1900 Nutrition IV 07/24 1859 Total Parenteral 1 UNIT 1900 07/22 1900 07/22 Nutrition IV 07/23 Total Parenteral 1 UNIT 1900 07/21 1900 MD 07/21 Nutrition IV 07/22 Impression/Plan Impression/Problem List Impression: GI bleed - Fecal for occult blood positive; bleeding from WILLEM drain * Surgery was updated and advised conservative management. * We will hold heparin. ICU induced psychosis - * We will avoid sedation, if needed than start on melatonin. * We will start mobilization and PT Duodenal perforation status post patch repair(07/09/2017),drain malpositioned leading to uncontrolled leak taken to OR for washout on 07/15/2017 f/b septicemia and shock;jejunostomy tube in place -blood culture is growing - enterobacter aerogenes and enterococcus, VRE in body fluids * We will continue Meropenem and stopped Vancomycin due to VRE. Continue on Daptomycin(D4). Checked CK is low <20. * Started on J-tube feeding, will decrease TPN rate to 50%, after achievement of tube feeding rate to 40ml/hr. * Strict intake output charting * Vitals every 4 hrly * decreased hydrocortisone to BID Uncontrolled DM, secondary to Sepsis, pressors and octreotide - recovering * [facility] * Will continue Insulin drip * Target Blood sugar 140 -180. * Discussed with surgery - continue Octreotide Acute respiratory failure due to sepsis and shock -recovered * Had tachypnoea - ABG done was showing 7.53,PCo2 -35,PO2 -70,HCO3-28. * Urine tox is negative for benzos overdose. CAD,CABG,AICD, NSVT - * Continue carvidilol. Ansarca, right arm swelling and decreased peripheral pulsation - albumin -1.4 * Color doppler of right upper arm was negative for DVT. * Patient is tolerating tube feeding. When it become 40cc/hr than we will decrease the rate of TPN to half. When tube feeding is at goal of 60cc/hr than we will decrease TPN to half every 4 hrs and stop it. Dyselectrolytemia - Low K, Normal - Mg * Supplemented in TPN. Acute on chronic Kidney disease -Cr 0.9- possible ATN/contrast induced nephropathy -recovering * We will continue strict I/O charting. * Avoid nephrotoxins * will follow ICU bundle Nutrition - On TPN - stopped Lipids - TPN + 40 U of insulin; continue on J tube feeding. Code status -Full code DVT prophylaxis - Heparin/ALPS Problem List: 1. Peritonitis 2. Rectal bleeding 3. Duodenal ulcer with perforation Pain Ratin Tomorrow's Labs & Rationales: CBC,ICU bundle, CXR, ABG - f/u Plan DVT/Prophylaxis: mechanical, pharmacological
--- NOTE | 2017-07-23 09:50 | PN- Diabetes ---
Assessment/Plan Assessment: 76-year-old male with Hx of CAD with low ejection fraction, atrial fibrillation, AICD, previous infection of hip with prolonged antibiotic, history of peptic ulcer disease, diabetes and renal stone, was admitted for perforation of duodenum now with septic shock in ICU. He was on 3 pressors, TPN, octreotide drip and bicarb drip. His BP remained low and stress dose of steroid was initiated despite his am cortisol was 24.8. His glucose level was in the 300s. Insulin drip was initiated. ` The patient's TPN is being tapered. 1000 mL of TPN was ordered today. Forty units of Regular Insulin was ordered and the TPN. Patient also has some insulin drip running. His tube feedings of being increased to 40 mL per hour. Patient is on hydrocortisone 50 mg IV every 8 hours. Plan: Suggest continue the hydrocortisone 50 mg IV every 8 hours. Agree with putting 40 units of regular insulin in the TPN bag today. As the tube feedings are increased and the TPN is reduced we can adjust the insulin drip to keep sugar in the 120-180 range. Subjective Subjective: Feels okay Review of Systems Cardiovascular: Denies: chest pain. Respiratory: Denies: short of breath. Objective Last 24 Hrs of Vital Signs/I&O Vital Signs Date Time Temp Pulse Resp B/P B/P Pulse O2 O2 Flow FiO2 Mean Ox Delivery Rate 07/23 0400 93 Venti Mask 50% 07/23 0000 97.6 79 24 112/50 93 Venti Mask 50% 07/23 0000 93 Venti Mask 50% 07/22 2142 69 109/53 07/22 2000 92 Nasal 5.0L Cannula 07/22 1600 92 Nasal 5.0L Cannula 07/22 1600 97.8 68 22 116/50 92 Nasal 5.0L Cannula 07/22 1200 Ventilator 40% 07/22 1200 98.2 69 20 110/58 93 Ventilator 40% 07/22 1127 69 114/53 07/22 1115 40 Intake & Output 07/23 1600 07/23 0800 07/23 0000 Intake Total 1297.0 1336.0 Output Total 960 1260 Balance 337.0 76.0 Intake, IV 207 289 Intake, Lipid 179.0 178.0 Intake, 595 627 TPN/PPN Intake, Tube 231 162 Feeding Intake, Tube 85 80 Irrigant Number 0 0 Bowel Movements Output, 210 210 Drainage Output, 50 50 Gastric Drainage Output, Urine 700 1000 Vital Signs Date Time Temp Pulse Resp B/P B/P Pulse O2 O2 Flow FiO2 Mean Ox Delivery Rate 07/23 0400 93 Venti Mask 50% 07/23 0000 97.6 79 24 112/50 93 Venti Mask 50% 07/23 0000 93 Venti Mask 50% 07/22 2142 69 109/53 07/22 2000 92 Nasal 5.0L Cannula 07/22 1600 92 Nasal 5.0L Cannula 07/22 1600 97.8 68 22 116/50 92 Nasal 5.0L Cannula 07/22 1200 Ventilator 40% 07/22 1200 98.2 69 20 110/58 93 Ventilator 40% 07/22 1127 69 114/53 07/22 1115 40 Intake & Output 07/23 1600 07/23 0800 07/23 0000 Intake Total 1297.0 1336.0 Output Total 960 1260 Balance 337.0 76.0 Intake, IV 207 289 Intake, Lipid 179.0 178.0 Intake, 595 627 TPN/PPN Intake, Tube 231 162 Feeding Intake, Tube 85 80 Irrigant Number 0 0 Bowel Movements Output, 210 210 Drainage Output, 50 50 Gastric Drainage Output, Urine 700 1000 Physical Exam General Appearance: alert, awake Head: normal appearance Neck: normal inspection Respiratory: normal breath sounds Cardiovascular: regular rate/rhythm Extremities: swelling Current Medications: Current Medications Sig/Buck Start time Last Medication Dose Route Stop Time Status Admin Acetaminophen 1,000 MG Q6P PRN 07/16 0530 07/20 N/A 1 UNIT IV 0659 Budesonide/ 2 PUF BID 07/09 2200 07/22 Formoterol Fumarate INH 2252 Carvedilol 3.125 MG BID 07/22 1000 AC 07/22 PO 2142 Daptomycin 500 MG Q24H 07/20 1130 07/22 Sodium Chloride 50 ML IV 1207 Fat Emulsion 350 ML Q24H 07/22 1900 AC 07/22 Intravenous IV 07/23 Fat Emulsion 350 ML Q24H 07/21 190 VT 07/21 Intravenous IV 07/22 Fentanyl Citrate 1,000 MCG Q24H 07/22 1200 DC Dextrose/Water 250 ML IV Fentanyl Citrate 1,000 MCG Q10H 07/16 2200 DC 07/21 Dextrose/Water 250 ML IV 0549 Furosemide 20 MG 7:30 AM, & 4:30 PM 07/19 1630 07/23 IV 0654 Heparin Sodium 5,000 UNIT Q8 07/10 0138 07/23 (Porcine) SC 0516 Hydrocortisone 50 MG Q8H 07/20 1930 07/23 Sodium Succinate IV 0338 Insulin Human Regular 100 UNIT Q12H 07/22 1800 AC 07/23 Sodium Chloride 100 ML IV 0521 Insulin Human Regular 100 UNIT Q11H 07/21 2359 DC 07/22 Sodium Chloride 100 ML IV 07/22 1759 0019 Magnesium Sulfate 1 GM ONCE ONE 07/22 0900 DC 07/22 Dextrose/Water 100 ML IV 07/22 1259 0926 Meropenem 1 GM Q8H 07/20 1000 07/23 IV 0300 Morphine Sulfate 2 MG Q4P PRN 07/14 1145 07/22 IV 1659 Norepinephrine 4 MG Q16H 07/19 2000 DC 07/21 Sodium Chloride 250 ML IV 0848 Octreotide Acetate 500 MCG Q20H 07/15 1400 07/22 Dextrose/Water 500 ML IV 2133 Pantoprazole Sodium 40 MG BID 07/10 1016 07/22 IV 2134 Total Parenteral 1 UNIT 1900 07/23 190 AC Nutrition IV 07/24 185 Total Parenteral 1 UNIT 1900 07/22 1900 07/22 Nutrition IV 07/23 Total Parenteral 1 UNIT 1900 07/21 190 DC 07/21 Nutrition IV 07/22 Findings Pertinent Lab/Les Results: Laboratory Tests 07/23 07/22 0400 1040 Blood Gas pH (7.35 - 7.45 PH) 7.52 H pCO2 (35 - 45 TORR) 33 L pO2 (80 - 100 TORR) 89 HCO3 (21 - 28 MEQ/L) 27 ABG O2 Sat (Measured) (>96.0 %) 96.0 P-50 (Temp Corrected) N Carboxyhemoglobin (1.5 - 5.0 %) 0.3 L O2 Concentration % 40% Temperature (97.0 - 100.0 FARH) 98.4 Respiration Rate (BPM) 0 O2 Delivery Method VENT Vent Mode CPAP Expiratory Pressure (CMH2O/P) 5 Tidal Volume (CC) 0 Pressure Support (CMH2O/P) 6 Chemistry Sodium (137 - 145 mmol/L) 140 Potassium (3.5 - 5.1 mmol/L) 3.7 Chloride (98 - 107 mmol/L) 105 Carbon Dioxide (22 - 30 mmol/L) 28 Anion Gap (5 - 16) 8 BUN (9 - 20 mg/dL) 34 H Creatinine (0.7 - 1.2 mg/dL) 0.9 Estimated GFR (>60 ml/min) > 60 Glucose (65 - 99 mg/dL) 180 H Calcium (8.4 - 10.2 mg/dL) 7.4 L Phosphorus (2.5 - 4.5 mg/dL) 2.9 Magnesium (1.6 - 2.3 mg/dL) 2.1 Total Bilirubin (0.2 - 1.3 mg/dL) 0.6 AST (17 - 59 U/L) 41 ALT (21 - 72 U/L) 51 Albumin (3.5 - 5.0 g/dL) 1.7 L Hematology CBC w Diff MAN DIFF ORDERED WBC (4.8 - 10.8 /CUMM) 12.3 H RBC (4.70 - 6.10 /CUMM) 3.07 L Hgb (14.0 - 18.0 G/DL) 8.9 L Hct (42 - 52 %) 26.7 L MCV (80.0 - 94.0 FL) 87.2 MCH (27.0 - 31.0 PG) 28.9 RDW (11.5 - 14.5 %) 17.1 H Plt Count (130 - 400 /CUMM) 283 MPV (7.4 - 10.4 FL) 9.8 Gran % (42.2 - 75.2 %) 64.7 Lymphocytes % (20.5 - 51.1 %) 28.6 Monocytes % (1.7 - 9.3 %) 6.4 Eosinophils % (0 - 5 %) 0.3 Basophils % (0.0 - 2.0 %) 0 Absolute Granulocytes (1.4 - 6.5 /CUMM) 8.0 H Segmented Neutrophils (42.2 - 75.2 %) 47 Band Neutrophils (0.0 - 5.0 %) 15 H Absolute Lymphocytes (1.2 - 3.4 /CUMM) 3.5 H Lymphocytes (20.5 - 51.1 %) 23 Monocytes (1.7 - 9.3 %) 10 H Absolute Monocytes (0.10 - 0.60 /CUMM) 0.8 H Eosinophils (0 - 5.0 %) 1 Absolute Eosinophils (0.0 - 0.7 /CUMM) 0 Absolute Basophils (0.0 - 0.2 /CUMM) 0 Metamyelocytes (0.0 - 1.0 %) 4 H Nucleated RBCs (0.0 - 0.0 /100WBC) 1 H Platelet Estimate (ADEQUATE) ADEQUATE Polychromasia 2+ Hypochromic-Microcytic 1+ Basophilic Stippling 1+ PUBS MCHC (33.0 - 37.0 G/DL) 33.2 Miscellaneous Phlebotomy Draw Site LEFT RADIAL
--- NOTE | 2017-07-23 10:14 | PN- CRCU ---
Subjective HPI/Critical Care Issues: The patient is awake but remains confused over the past 24 hours. He was extubated and has had improvement in his oxygen saturations. He is however moderately dyspneic at the present time. As per nursing, the patient was recently turned and washed and became dyspneic following the event. The patient is not able to offer any significant complaints. Objective Current Medications: Current Medications Sig/Buck Start time Last Medication Dose Route Stop Time Status Admin Acetaminophen 1,000 MG Q6P PRN 07/16 0530 07/20 N/A 1 UNIT IV 0659 Budesonide/ 2 PUF BID 07/09 2200 07/23 Formoterol Fumarate INH 0949 Carvedilol 3.125 MG BID 07/22 1000 07/23 PO 0948 Daptomycin 500 MG Q24H 07/20 1130 07/22 Sodium Chloride 50 ML IV 1207 Fat Emulsion 350 ML Q24H 07/22 1900 07/22 Intravenous IV 07/23 1852017 Fat Emulsion 350 ML Q24H 07/21 1900 OR 07/21 Intravenous IV 07/22 1852012 Fentanyl Citrate 1,000 MCG Q24H 07/22 1200 DC Dextrose/Water 250 ML IV Fentanyl Citrate 1,000 MCG Q10H 07/16 2200 OR 07/21 Dextrose/Water 250 ML IV 0549 Furosemide 20 MG 7:30 AM, & 4:30 PM 07/19 1630 07/23 IV 0654 Heparin Sodium 5,000 UNIT Q8 07/10 0138 07/23 (Porcine) SC 0516 Hydrocortisone 50 MG Q8H 07/20 1930 07/23 Sodium Succinate IV 0338 Insulin Human Regular 100 UNIT Q12H 07/22 1800 07/23 Sodium Chloride 100 ML IV 0521 Insulin Human Regular 100 UNIT Q11H 07/21 2359 OR 07/22 Sodium Chloride 100 ML IV 07/22 1759 0019 Magnesium Sulfate 1 GM ONCE ONE 07/22 0900 OR 07/22 Dextrose/Water 100 ML IV 07/22 1259 0926 Meropenem 1 GM Q8H 07/20 1000 07/23 IV 0948 Morphine Sulfate 2 MG Q4P PRN 07/14 1145 07/22 IV 1659 Norepinephrine 4 MG Q16H 07/19 2000 OR 07/21 Sodium Chloride 250 ML IV 0848 Octreotide Acetate 500 MCG Q20H 07/15 1400 07/22 Dextrose/Water 500 ML IV 2133 Pantoprazole Sodium 40 MG BID 07/10 1016 07/23 IV 0948 Total Parenteral 1 UNIT 1900 07/23 1900 AC Nutrition IV 07/24 1859 Total Parenteral 1 UNIT 19007/22 AC 07/22 Nutrition IV 07/23 Total Parenteral 1 UNIT 1900 07/21 1900 DC 07/21 Nutrition IV 07/22 Vital Signs & I&O Last 24 Hrs of Vitals and I&O: Vital Signs Date Time Temp Pulse Resp B/P B/P Pulse O2 O2 Flow FiO2 Mean Ox Delivery Rate 07/23 0948 72 124/62 07/23 0400 93 Venti Mask 50% 07/23 0000 97.6 79 24 112/50 93 Venti Mask 50% 07/23 0000 93 Venti Mask 50% 07/22 2142 69 109/53 07/22 2000 92 Nasal 5.0L Cannula 07/22 1600 92 Nasal 5.0L Cannula 07/22 1600 97.8 68 22 116/50 92 Nasal 5.0L Cannula 07/22 1200 Ventilator 40% 07/22 1200 98.2 69 20 110/58 93 Ventilator 40% 07/22 1127 69 114/53 07/22 1115 40 Intake & Output 07/23 1600 07/23 0800 07/23 0000 Intake Total 1297.0 1336.0 Output Total 960 1260 Balance 337.0 76.0 Intake, IV 207 289 Intake, Lipid 179.0 178.0 Intake, 595 627 TPN/PPN Intake, Tube 231 162 Feeding Intake, Tube 85 80 Irrigant Number 0 0 Bowel Movements Output, 210 210 Drainage Output, 50 50 Gastric Drainage Output, Urine 700 1000 Exam General Appearance: Extubated, confused and in moderate respiratory distress Neck: normal inspection, supple Respiratory: chest non-tender, no respiratory distress, quiet respiration Cardiovascular: regular rate/rhythm, edema Gastrointestinal: soft, bowel sounds present Extremities: Bilateral lower extremity venous stasis and swelling, no evidence of asymmetry Results Last 24 Hrs of Lab Results: Laboratory Tests 07/23/17 0950: pH 7.53 H, pCO2 35, pO2 70 L, HCO3 28, ABG O2 Sat (Measured) 93.0 L, P-50 ( Temp Corrected) N, Carboxyhemoglobin 0.3 L, O2 Concentration % 5L, Temperature 97.6, O2 Delivery Method N/C, Phlebotomy Draw Site LEFT RADIAL 07/23/17 0400: Anion Gap 8, Estimated GFR > 60, Glucose 180 H, Calcium 7.4 L, Phosphorus 2.9, Magnesium 2.1, Total Bilirubin 0.6, AST 41, ALT 51, Albumin 1.7 L, CBC w Diff MAN DIFF ORDERED, RBC 3.07 L, MCV 87.2, MCH 28.9, RDW 17.1 H, MPV 9.8, Gran % 64.7, Lymphocytes % 28.6, Monocytes % 6.4, Eosinophils % 0.3, Basophils % 0, Absolute Granulocytes 8.0 H, Segmented Neutrophils 47, Band Neutrophils 15 H, Absolute Lymphocytes 3.5 H, Lymphocytes 23, Monocytes 10 H, Absolute Monocytes 0.8 H, Eosinophils 1, Absolute Eosinophils 0, Absolute Basophils 0, Metamyelocytes 4 H, Nucleated RBCs 1 H, Platelet Estimate ADEQUATE, Polychromasia 2+, Hypochromic-Microcytic 1+, Basophilic Stippling 1+, PUBS MCHC 33.2 07/22/17 1040: pH 7.52 H, pCO2 33 L, pO2 89, HCO3 27, ABG O2 Sat (Measured) 96.0, P-50 (Temp Corrected) N, Carboxyhemoglobin 0.3 L, O2 Concentration % 40%, Temperature 98.4 , Respiration Rate 0, O2 Delivery Method VENT, Vent Mode CPAP, Expiratory Pressure 5, Tidal Volume 0, Pressure Support 6, Phlebotomy Draw Site LEFT RADIAL Impression/Plan Impression/Plan Impression/Plan: 1. Septic shock - enterococcus. 2. Atrial flutter - controlled. 3. Duodenal ulcer/s/p perforation, acute peritonitits - s/p WILLEM drain, now on tube feeds. 4. Ischemic cardiac disease/cad. 5. Morbid obesity. 6. Encepatholopathy/ICU delerium. Recommendations: * Stat ABG results reviewed. No need for BiPAP at present time. * Will call surgery to alert them of some slight bleeing in WILLEM drain. * If ok with surgery, will advance TFs as previously recommended. * Will taper TPN if tolerating TFs. * Continue meropemem and dapto as per ID. * No IVFs for now. Will monitor volume status. * F/u urine toxicology screen. * Follow up CXR results. * Attempt to avoid sedation due to confusion. * Continue to follow endocrine recommendations. * Continue DVT/GI prophylaxis. * Continue all supportive care. * Continue to monitor in the critical care unit.
[2017-07-23 12:00] VITALS: BP 106/60
--- NOTE | 2017-07-23 14:25 | Event Note ---
Event Note Event Note: Patient is bleeding from his WILLEM drain, and also stool for occult blood is positive. Discussed with Dr. flores, advised to discuss with general surgery any stop heparin for DVT prophylaxis. Discussed with the surgery advised for conservative management. 5:00 PM - Patient again had increased blood in the stool. Discussed with Dr. Brewer, over the phone, advised for CBC every 6 hourly and if hemoglobin less than 8. Transfuse blood. Advised to discuss with surgery and GI for further management.
[2017-07-23 16:00] VITALS: BP 126/60
--- NOTE | 2017-07-23 16:36 | RADIOLOGY REPORT ---
EXAMINATION: XR PORTABLE CHEST CLINICAL INFORMATION: Shortness of breath with concern for aspiration status post extubation. COMPARISON: Chest radiograph 07/22/2017. TECHNIQUE: Portable frontal view of the chest was obtained. FINDINGS: Evaluation is limited due to patient body habitus. Mild unchanged opacity overlying both lower lung flor may be related to mild atelectasis/small bilateral pleural effusions. Cardiomediastinal silhouette is mildly prominent but unchanged. No vasculature congestion. Left sided ICD remains in stable position. The patient is status post recent extubation. There is an enteric tube incompletely evaluated on this examination. Right-sided PICC line with tip near the cavoatrial junction. IMPRESSION: Bibasilar airspace opacities may represent atelectasis or small bilateral pleural effusions, similar to prior examination. Unchanged cardiomegaly without significant vascular congestion.
[2017-07-23 17:55] LABS: ABSOLUTE BASOPHIL COUNT 0 /CUMM (0.0-0.2); ABSOLUTE EOSINOPHIL COUNT 0 /CUMM (0.0-0.7); ABSOLUTE GRANULOCYTE CT 9.1 /CUMM (1.4-6.5); ABSOLUTE LYMPH COUNT 3.7 /CUMM (1.2-3.4); ABSOLUTE MONOCYTE COUNT 0.8 /CUMM (0.10-0.60); BASOPHIL % 0.2 % (0.0-2.0); EOSINOPHIL % 0.3 % (0-5); HEMATOCRIT 30.8 % (42-52); MEAN CORPUSCULAR HGB 28.7 PG (27.0-31.0); MEAN CORPUSCULAR HGB CONC 32.8 G/DL (33.0-37.0); MEAN CORPUSCULAR VOLUME 87.6 FL (80.0-94.0); MEAN PLATELET VOLUME 9.3 FL (7.4-10.4); PLATELET COUNT 303 /CUMM (130-400); RBC DISTRIBUTION WIDTH 17.4 % (11.5-14.5); RED BLOOD CELL CT 3.52 /CUMM (4.70-6.10)
[2017-07-23 18:23] LABS: WHITE BLOOD CELL COUNT 13.5 /CUMM (4.8-10.8)
[2017-07-23 18:24] LABS: GRANULOCYTE % 66.6 % (42.2-75.2)
[2017-07-23 22:43] LABS: ABSOLUTE BASOPHIL COUNT 0 /CUMM (0.0-0.2); ABSOLUTE EOSINOPHIL COUNT 0 /CUMM (0.0-0.7); ABSOLUTE GRANULOCYTE CT 9.9 /CUMM (1.4-6.5); ABSOLUTE LYMPH COUNT 3.9 /CUMM (1.2-3.4); BASOPHIL % 0.1 % (0.0-2.0); EOSINOPHIL % 0.1 % (0-5); GRANULOCYTE % 66.6 % (42.2-75.2); HEMATOCRIT 30.6 % (42-52); MEAN CORPUSCULAR HGB 28.5 PG (27.0-31.0); MEAN CORPUSCULAR VOLUME 86.7 FL (80.0-94.0); MEAN PLATELET VOLUME 9.3 FL (7.4-10.4); PLATELET COUNT 304 /CUMM (130-400); RBC DISTRIBUTION WIDTH 17.1 % (11.5-14.5); RED BLOOD CELL CT 3.53 /CUMM (4.70-6.10)
[2017-07-23 23:10] LABS: WHITE BLOOD CELL COUNT 13.6 /CUMM (4.8-10.8)
[2017-07-24] VITALS: BP 90/44
[2017-07-24 04:59] LABS: HEMATOCRIT 29.4 % (42-52); MEAN CORPUSCULAR HGB 28.4 PG (27.0-31.0); MEAN CORPUSCULAR HGB CONC 32.6 G/DL (33.0-37.0); MEAN CORPUSCULAR VOLUME 87.3 FL (80.0-94.0); MEAN PLATELET VOLUME 8.9 FL (7.4-10.4); PLATELET COUNT 281 /CUMM (130-400); RED BLOOD CELL CT 3.37 /CUMM (4.70-6.10); WHITE BLOOD CELL COUNT 13.7 /CUMM (4.8-10.8)
--- NOTE | 2017-07-24 06:41 | PN- General Surgery ---
See Addendum Subjective Subjective: EXTUBATED, ALERT, RESPONSIVE TO NAME NO PRESSOR SUPPORT AT THIS TIME Objective Vital Signs and I&Os Vital Signs Date Time Temp Pulse Resp B/P B/P Pulse O2 O2 Flow FiO2 Mean Ox Delivery Rate 07/24 0400 92 Nasal 2.0L Cannula 07/24 0000 95 Nasal 2.0L Cannula 07/24 0000 98.7 70 19 90/44 92 Nasal 2.0L Cannula 07/23 2110 69 116/60 07/23 2000 95 Nasal 2.0L Cannula 07/23 1600 93 Nasal 2.0L Cannula 07/23 1600 97.7 69 22 126/60 93 Nasal 2.0L Cannula 07/23 1200 97 Nasal 5.0L Cannula 07/23 1200 97.6 74 24 106/60 97 Nasal 5.0L Cannula 07/23 0948 72 124/62 07/23 0800 98 Venti Mask 07/23 0800 98.6 69 24 128/60 98 Venti Mask Intake & Output 07/24 0800 07/24 0000 07/23 1600 07/23 0800 07/23 0000 07/22 1600 Intake Total 946.0 1093.0 1728.0 1297.0 1336.0 1522.0 Output Total 1089 1534 6510 967 5725 1160 Balance -143.0 -441.0 -97.0 337.0 76.0 362.0 Intake, IV 217 219 538 207 289 491 Intake, Lipid 31.0 55.0 101.0 179.0 178.0 114.0 Intake, Oral 0 0 Intake, Other 0 Intake, 176 307 573 595 627 645 TPN/PPN Intake, Tube 437 322 326 231 162 97 Feeding Intake, Tube 85 190 190 85 80 175 Irrigant Number 1 1 1 0 0 0 Bowel Movements Output, 255 235 250 210 210 160 Drainage Output, 150 75 75 50 50 50 Gastric Drainage Output, Urine 684 1224 6961 309 6410 950 Physical Exam: GEN- nad, awake,extubated CARD- s1s2 PULM- coarse throughout ABD- midline w inferior staple out, purulent drainage , wick changed, irrigated w NS, jpx2 w bilious drainage, nt throughout EXT- +edema bl, alps on, feet warm Assessment/Plan Assessment/Plan jps to self suction cont tf, tpn, npo, ngt midline wound- keep wick in place, daily changes. abx per id monitor bowel fxn iv ppi, octreotide medical mgmt per primary team
[2017-07-24 08:00] VITALS: BP 131/57
--- NOTE | 2017-07-24 08:46 | PN- CRCU ---
Subjective HPI/Critical Care Issues: The patient appears much improved today. He is now alert and oriented and following all commands. He no longer appears in respiratory distress. He is afebrile on steroids. He feels well without complaints status post extubation. Objective Current Medications: Current Medications Sig/Buck Start time Last Medication Dose Route Stop Time Status Admin Acetaminophen 1,000 MG .STK-MED ONE 07/23 09 DC IV 07/23 0928 Acetaminophen 1,000 MG Q6P PRN 07/16 0530 07/20 N/A 1 UNIT IV 0659 Budesonide/ 2 PUF BID 07/09 2200 AC 07/23 Formoterol Fumarate INH 2109 Carvedilol 3.125 MG BID 07/22 1000 AC 07/23 PO 211 Daptomycin 500 MG Q24H 07/20 1130 07/23 Sodium Chloride 50 ML IV 1031 Fat Emulsion 350 ML Q24H 07/22 190 DC 07/22 Intravenous IV 07/23 Furosemide 20 MG 7:30 AM, & 4:30 PM 07/19 1630 07/24 IV 0755 Heparin Sodium 5,000 UNIT Q8 07/10 0138 DC 07/23 (Porcine) SC 0516 Hydrocortisone 50 MG Q12 07/23 220 CAN Sodium Succinate IV Hydrocortisone 50 MG Q8H 07/23 1600 AC 07/24 Sodium Succinate IV 0755 Hydrocortisone 50 MG Q8H 07/20 1930 DC 07/23 Sodium Succinate IV 1031 Insulin Human Regular 100 UNIT Q12H 07/22 1800 07/23 Sodium Chloride 100 ML IV 2002 Meropenem 1 GM Q8H 07/20 1000 07/24 IV 0116 Morphine Sulfate 2 MG Q4P PRN 07/14 1145 07/22 IV 1659 Octreotide Acetate 500 MCG Q20H 07/15 1400 07/23 Dextrose/Water 500 ML IV 2002 Pantoprazole Sodium 40 MG BID 07/10 1016 07/23 IV 2110 Potassium Chloride 20 MEQ Q1H 07/24 0715 DC 07/24 IV 07/24 0816 0756 Total Parenteral 1 UNIT 1900 07/23 1900 AC 07/23 Nutrition IV 07/24 185 191 Total Parenteral 1 UNIT 1900 07/22 190 DC 07/22 Nutrition IV 07/23 Vital Signs & I&O Last 24 Hrs of Vitals and I&O: Vital Signs Date Time Temp Pulse Resp B/P B/P Pulse O2 O2 Flow FiO2 Mean Ox Delivery Rate 07/24 0400 92 Nasal 2.0L Cannula 07/24 0000 95 Nasal 2.0L Cannula 07/24 0000 98.7 70 19 90/44 92 Nasal 2.0L Cannula 07/23 2110 69 116/60 07/23 2000 95 Nasal 2.0L Cannula 07/23 1600 93 Nasal 2.0L Cannula 07/23 1600 97.7 69 22 126/60 93 Nasal 2.0L Cannula 07/23 1200 97 Nasal 5.0L Cannula 07/23 1200 97.6 74 24 106/60 97 Nasal 5.0L Cannula 07/23 0948 72 124/62 Intake & Output 07/24 1600 07/24 0800 07/24 0000 Intake Total 946.0 1093.0 Output Total 1089 1534 Balance -143.0 -441.0 Intake, IV 217 219 Intake, Lipid 31.0 55.0 Intake, Oral 0 0 Intake, Other 0 Intake, 176 307 TPN/PPN Intake, Tube 437 322 Feeding Intake, Tube 85 190 Irrigant Number 1 1 Bowel Movements Output, 255 235 Drainage Output, 150 75 Gastric Drainage Output, Urine 684 1224 Exam General Appearance: Extubated, awake and alert, following commands, comfortable Neck: normal inspection, supple Respiratory: chest non-tender, no respiratory distress, quiet respiration Cardiovascular: regular rate/rhythm, edema Gastrointestinal: soft, bowel sounds present Extremities: Bilateral lower extremity venous stasis and swelling, no evidence of asymmetry Results Last 24 Hrs of Lab Results: Laboratory Tests 07/24/17 0417: Anion Gap 9, Estimated GFR > 60, Glucose 120 H, Calcium 7.3 L, Phosphorus 3.0, Magnesium 2.0, Total Bilirubin 0.5, AST 44, ALT 57, Albumin 1.9 L, CBC w Diff MAN DIFF ORDERED, RBC 3.37 L, MCV 87.3, MCH 28.4, RDW 18.0 H, MPV 8.9, Segmented Neutrophils 76 H, Band Neutrophils 4, Lymphocytes 17 L, Monocytes 2, Eosinophils 1, Platelet Estimate ADEQUATE, Polychromasia 1+, Poikilocytosis 1+, Anisocytosis 1+, Stomatocytes 1+, PUBS MCHC 32.6 L 07/23/172200: CBC w Diff MAN DIFF ORDERED, RBC 3.53 L, MCV 86.7, MCH 28.5, RDW 17.1 H, MPV 9.3, Gran % 66.6, Lymphocytes % 26.4, Monocytes % 6.8, Eosinophils % 0.1, Basophils % 0.1, Absolute Granulocytes 9.9 H, Segmented Neutrophils 60, Band Neutrophils 14 H, Absolute Lymphocytes 3.9 H, Lymphocytes 16 L, Monocytes 7, Absolute Monocytes 1.0 H, Absolute Eosinophils 0, Absolute Basophils 0, Metamyelocytes 3 H, Nucleated RBCs 10 H, Platelet Estimate ADEQUATE, Polychromasia 1+, Anisocytosis 2+, PUBS MCHC 33.0, Fld Total RBCs Counted 100 07/23/17 1715: CBC w Diff NO MAN DIFF REQ, RBC 3.52 L, MCV 87.6, MCH 28.7, RDW 17.4 H, MPV 9.3, Gran % 66.6, Lymphocytes % 26.8, Monocytes % 6.1, Eosinophils % 0.3, Basophils % 0.2, Absolute Granulocytes 9.1 H, Absolute Lymphocytes 3.7 H, Absolute Monocytes 0.8 H, Absolute Eosinophils 0, Absolute Basophils 0, PUBS MCHC 32.8 L 07/23/17 1022: Urine Opiates Screen 392.00, Methadone Screen < 40, Barbiturate Screen < 60, Ur Phencyclidine Scrn < 6.00, Amphetamines Screen < 100, U Benzodiazepines Scrn < 85, Urine Cocaine Screen < 50, Urine Cannabis Screen < 5.00 07/23/17 0950: pH 7.53 H, pCO2 35, pO2 70 L, HCO3 28, ABG O2 Sat (Measured) 93.0 L, P-50 ( Temp Corrected) N, Carboxyhemoglobin 0.3 L, O2 Concentration % 5L, Temperature 97.6, O2 Delivery Method N/C, Phlebotomy Draw Site LEFT RADIAL Impression/Plan Impression/Plan Impression/Plan: 1. Septic shock - secondary to duodenal ulcer with associated peritonitis in uncontrolled leak, OR cultures positive for VRE and Enterobacter. There is concern for ongoing uncontrolled week as the patient has significant drainage from WILLEM drain #1. 2. Atrial flutter - controlled. 3. On stress dose steroids. 4. Ischemic cardiac disease/cad. 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 5. Morbid obesity. 6. History of obstructive sleep apnea on nasal CPAP. Recommendations: * Will follow up surgery recommendations. * Address duration octreotide drip with surgery. * Continue tube feeds at goal. * Continue nocturnal CPAP. * Continue meropemem and daptomycin as per ID. * No IVFs for now. Will monitor volume status. We are attempting negative fluid balance noting the patient is grossly fluid overloaded. * Avoid sedation due to confusion. * Continue to follow endocrine recommendations. * Continue DVT/GI prophylaxis. Subcutaneous heparin held due to stool positive for blood. No evidence of significant GI bleeding. * Continue all supportive care. * Continue to monitor in the critical care unit.
--- NOTE | 2017-07-24 09:20 | PN- Diabetes ---
Assessment/Plan Assessment: 76-year-old male with Hx of CAD with low ejection fraction, atrial fibrillation, AICD, previous infection of hip with prolonged antibiotic, history of peptic ulcer disease, diabetes and renal stone, was admitted for perforation of duodenum now with septic shock in ICU. He was on 3 pressors, TPN, octreotide drip and bicarb drip. His BP remained low and stress dose of steroid was initiated despite his am cortisol was 24.8. His glucose level was in the 300s. Insulin drip was initiated. The patient is off TPN. He is on tube feedings with Vital 60 mL per hour. He is still on the insulin drip at 4 units per hour. Her blood sugars recently 128 , 136, 131, 144, and 169. Patient is on hydrocortisone 50 mg IV every 8 hours. Plan: Suggest continue the insulin drip for now. Patient's insulin requirements are still very large at 4 units per hour. Continue hydrocortisone 50 mg IV every 8 hours. Subjective Subjective: Feels okay Review of Systems Constitutional: Denies: chills, fever. Cardiovascular: Denies: chest pain. Respiratory: Denies: cough, short of breath. Skin: Reports: no symptoms. Objective Last 24 Hrs of Vital Signs/I&O Vital Signs Date Time Temp Pulse Resp B/P B/P Pulse O2 O2 Flow FiO2 Mean Ox Delivery Rate 07/24 0800 93 Nasal 2.0L Cannula 07/24 0800 97.7 69 25 131/57 93 Nasal 2.0L Cannula 07/24 0400 92 Nasal 2.0L Cannula 07/24 0000 95 Nasal 2.0L Cannula 07/24 0000 98.7 70 19 90/44 92 Nasal 2.0L Cannula 07/23 2110 69 116/60 07/23 2000 95 Nasal 2.0L Cannula 07/23 1600 93 Nasal 2.0L Cannula 07/23 1600 97.7 69 22 126/60 93 Nasal 2.0L Cannula 07/23 1200 97 Nasal 5.0L Cannula 07/23 1200 97.6 74 24 106/60 97 Nasal 5.0L Cannula 07/23 0948 72 124/62 Intake & Output 07/24 1600 07/24 0800 07/24 0000 Intake Total 946.0 1093.0 Output Total 1089 1534 Balance -143.0 -441.0 Intake, IV 217 219 Intake, Lipid 31.0 55.0 Intake, Oral 0 0 Intake, Other 0 Intake, 176 307 TPN/PPN Intake, Tube 437 322 Feeding Intake, Tube 85 190 Irrigant Number 1 1 Bowel Movements Output, 255 235 Drainage Output, 150 75 Gastric Drainage Output, Urine 684 1224 Vital Signs Date Time Temp Pulse Resp B/P B/P Pulse O2 O2 Flow FiO2 Mean Ox Delivery Rate 07/24 0800 93 Nasal 2.0L Cannula 07/24 0800 97.7 69 25 131/57 93 Nasal 2.0L Cannula 07/24 0400 92 Nasal 2.0L Cannula 07/24 0000 95 Nasal 2.0L Cannula 07/24 0000 98.7 70 19 90/44 92 Nasal 2.0L Cannula 07/23 2110 69 116/60 07/23 2000 95 Nasal 2.0L Cannula 07/23 1600 93 Nasal 2.0L Cannula 07/23 1600 97.7 69 22 126/60 93 Nasal 2.0L Cannula 07/23 1200 97 Nasal 5.0L Cannula 07/23 1200 97.6 74 24 106/60 97 Nasal 5.0L Cannula 07/23 0948 72 124/62 Intake & Output 07/24 1600 07/24 0800 07/24 0000 Intake Total 946.0 1093.0 Output Total 1089 1534 Balance -143.0 -441.0 Intake, IV 217 219 Intake, Lipid 31.0 55.0 Intake, Oral 0 0 Intake, Other 0 Intake, 176 307 TPN/PPN Intake, Tube 437 322 Feeding Intake, Tube 85 190 Irrigant Number 1 1 Bowel Movements Output, 255 235 Drainage Output, 150 75 Gastric Drainage Output, Urine 684 1224 Physical Exam General Appearance: sedated Head: normal appearance Neck: normal inspection Respiratory: normal breath sounds Cardiovascular: regular rate/rhythm Extremities: swelling Current Medications: Current Medications Sig/Buck Start time Last Medication Dose Route Stop Time Status Admin Acetaminophen 1,000 MG .STK-MED ONE 07/23 927 DC IV 07/23 928 Acetaminophen 1,000 MG Q6P PRN 07/16 0530 AC 07/20 N/A 1 UNIT IV 0659 Budesonide/ 2 PUF BID 07/09 2200 AC 07/23 Formoterol Fumarate INH 0 Carvedilol 3.125 MG BID 07/22 1000 AC 07/23 PO 2110 Daptomycin 500 MG Q24H 07/20 1130 07/23 Sodium Chloride 50 ML IV 1031 Fat Emulsion 350 ML Q24H 07/22 190 DC 07/22 Intravenous IV 07/23 Furosemide 20 MG 7:30 AM, & 4:30 PM 07/19 1630 07/24 IV 0755 Heparin Sodium 5,000 UNIT Q8 07/10 0138 DC 07/23 (Porcine) SC 0516 Hydrocortisone 50 MG Q12 07/23 2200 CAN Sodium Succinate IV Hydrocortisone 50 MG Q8H 07/23 1600 07/24 Sodium Succinate IV 0755 Hydrocortisone 50 MG Q8H 07/20 1930 DC 07/23 Sodium Succinate IV 1031 Insulin Human Regular 100 UNIT Q12H 07/22 1800 07/23 Sodium Chloride 100 ML IV 2002 Meropenem 1 GM Q8H 07/20 1000 07/24 IV 0116 Morphine Sulfate 2 MG Q4P PRN 07/14 1145 07/22 IV 1659 Octreotide Acetate 500 MCG Q20H 07/15 1400 07/23 Dextrose/Water 500 ML IV 2002 Pantoprazole Sodium 40 MG BID 07/10 1016 07/23 IV 2110 Potassium Chloride 20 MEQ Q1H 07/24 0715 DC 07/24 IV 07/24 0816 0756 Total Parenteral 1 UNIT 1900 07/23 190 07/23 Nutrition IV 07/24 1859 191 Total Parenteral 1 UNIT 1900 07/22 190 GA 07/22 Nutrition IV 07/23 Findings Pertinent Lab/Les Results: Laboratory Tests 07/24 07/23 0417 2201 Chemistry Sodium (137 - 145 mmol/L) 142 Potassium (3.5 - 5.1 mmol/L) 3.5 Chloride (98 - 107 mmol/L) 105 Carbon Dioxide (22 - 30 mmol/L) 28 Anion Gap (5 - 16) 9 BUN (9 - 20 mg/dL) 34 H Creatinine (0.7 - 1.2 mg/dL) 0.8 Estimated GFR (>60 ml/min) > 60 Glucose (65 - 99 mg/dL) 120 H Calcium (8.4 - 10.2 mg/dL) 7.3 L Phosphorus (2.5 - 4.5 mg/dL) 3.0 Magnesium (1.6 - 2.3 mg/dL) 2.0 Total Bilirubin (0.2 - 1.3 mg/dL) 0.5 AST (17 - 59 U/L) 44 ALT (21 - 72 U/L) 57 Albumin (3.5 - 5.0 g/dL) 1.9 L Hematology CBC w Diff MAN DIFF ORDERED MAN DIFF ORDERED WBC (4.8 - 10.8 /CUMM) 13.7 H 13.6 H RBC (4.70 - 6.10 /CUMM) 3.37 L 3.53 L Hgb (14.0 - 18.0 G/DL) 9.6 L 10.1 L Hct (42 - 52 %) 29.4 L 30.6 L MCV (80.0 - 94.0 FL) 87.3 86.7 MCH (27.0 - 31.0 PG) 28.4 28.5 RDW (11.5 - 14.5 %) 18.0 H 17.1 H Plt Count (130 - 400 /CUMM) 281 304 MPV (7.4 - 10.4 FL) 8.9 9.3 Gran % (42.2 - 75.2 %) 66.6 Lymphocytes % (20.5 - 51.1 %) 26.4 Monocytes % (1.7 - 9.3 %) 6.8 Eosinophils % (0 - 5 %) 0.1 Basophils % (0.0 - 2.0 %) 0.1 Absolute Granulocytes (1.4 - 6.5 /CUMM) 9.9 H Segmented Neutrophils (42.2 - 75.2 %) 76 H 60 Band Neutrophils (0.0 - 5.0 %) 4 14 H Absolute Lymphocytes (1.2 - 3.4 /CUMM) 3.9 H Lymphocytes (20.5 - 51.1 %) 17 L 16 L Monocytes (1.7 - 9.3 %) 2 7 Absolute Monocytes (0.10 - 0.60 /CUMM) 1.0 H Eosinophils (0 - 5.0 %) 1 Absolute Eosinophils (0.0 - 0.7 /CUMM) 0 Absolute Basophils (0.0 - 0.2 /CUMM) 0 Metamyelocytes (0.0 - 1.0 %) 3 H Nucleated RBCs (0.0 - 0.0 /100WBC) 10 H Platelet Estimate (ADEQUATE) ADEQUATE ADEQUATE Polychromasia 1+ 1+ Poikilocytosis 1+ Anisocytosis 1+ 2+ Stomatocytes 1+ PUBS MCHC (33.0 - 37.0 G/DL) 32.6 L 33.0 Other Body Source Fld Total RBCs Counted (%) 100 07/23 07/23 07/23 1715 1022 0950 Blood Gas pH (7.35 - 7.45 PH) 7.53 H pCO2 (35 - 45 TORR) 35 pO2 (80 - 100 TORR) 70 L HCO3 (21 - 28 MEQ/L) 28 ABG O2 Sat (Measured) (>96.0 %) 93.0 L P-50 (Temp Corrected) N Carboxyhemoglobin (1.5 - 5.0 %) 0.3 L O2 Concentration % 5L Temperature (97.0 - 100.0 FARH) 97.6 O2 Delivery Method N/C Hematology CBC w Diff NO MAN DIFF REQ WBC (4.8 - 10.8 /CUMM) 13.5 H RBC (4.70 - 6.10 /CUMM) 3.52 L Hgb (14.0 - 18.0 G/DL) 10.1 L Hct (42 - 52 %) 30.8 L MCV (80.0 - 94.0 FL) 87.6 MCH (27.0 - 31.0 PG) 28.7 RDW (11.5 - 14.5 %) 17.4 H Plt Count (130 - 400 /CUMM) 303 MPV (7.4 - 10.4 FL) 9.3 Gran % (42.2 - 75.2 %) 66.6 Lymphocytes % (20.5 - 51.1 %) 26.8 Monocytes % (1.7 - 9.3 %) 6.1 Eosinophils % (0 - 5 %) 0.3 Basophils % (0.0 - 2.0 %) 0.2 Absolute Granulocytes (1.4 - 6.5 /CUMM) 9.1 H Absolute Lymphocytes (1.2 - 3.4 /CUMM) 3.7 H Absolute Monocytes (0.10 - 0.60 /CUMM) 0.8 H Absolute Eosinophils (0.0 - 0.7 /CUMM) 0 Absolute Basophils (0.0 - 0.2 /CUMM) 0 PUBS MCHC (33.0 - 37.0 G/DL) 32.8 L Miscellaneous Phlebotomy Draw Site LEFT RADIAL Toxicology Urine Opiates Screen (>2000 NG/ML) 392.00 Methadone Screen (>300 NG/ML) < 40 Barbiturate Screen (>200 NG/ML) < 60 Ur Phencyclidine Scrn (>25 NG/ML) < 6.00 Amphetamines Screen (>1000 NG/ML) < 100 U Benzodiazepines Scrn (>200 NG/ML) < 85 Urine Cocaine Screen (>300 NG/ML) < 50 Urine Cannabis Screen (>50 NG/ML) < 5.00
--- NOTE | 2017-07-24 09:27 | PN- Infect Dx ---
Subjective Subjective: Afebrile on steroids. He feels well without complaints status post extubation 2 days ago. Objective Last 24 Hrs of Vital Signs/I&O Vital Signs Date Time Temp Pulse Resp B/P B/P Pulse O2 O2 Flow FiO2 Mean Ox Delivery Rate 07/24 0800 93 Nasal 2.0L Cannula 07/24 0800 97.7 69 25 131/57 93 Nasal 2.0L Cannula 07/24 0400 92 Nasal 2.0L Cannula 07/24 0000 95 Nasal 2.0L Cannula 07/24 0000 98.7 70 19 90/44 92 Nasal 2.0L Cannula 07/23 2110 69 116/60 07/23 2000 95 Nasal 2.0L Cannula 07/23 1600 93 Nasal 2.0L Cannula 07/23 1600 97.7 69 22 126/60 93 Nasal 2.0L Cannula 07/23 1200 97 Nasal 5.0L Cannula 07/23 1200 97.6 74 24 106/60 97 Nasal 5.0L Cannula 07/23 0948 72 124/62 Intake & Output 07/24 1600 07/24 0800 07/24 0000 Intake Total 946.0 1093.0 Output Total 1089 1534 Balance -143.0 -441.0 Intake, IV 217 219 Intake, Lipid 31.0 55.0 Intake, Oral 0 0 Intake, Other 0 Intake, 176 307 TPN/PPN Intake, Tube 437 322 Feeding Intake, Tube 85 190 Irrigant Number 1 1 Bowel Movements Output, 255 235 Drainage Output, 150 75 Gastric Drainage Output, Urine 684 1224 Physical Exam Other Physical Findings: He appears fairly comfortable on nasal oxygen Lungs are clear Heart regular rhythm with no murmur Abdomen is distended, nontender with positive bowel sounds; incision with packing in the inferior aspect, with no further drainage; WILLEM drains remain in place; WILLEM drain #1 with 650 mL output yesterday and 225 mL overnight Extremities 1+ edema both lower extremities; PICC in the right upper extremity with no inflammation at the site Duvall catheter remains in place Results Last 24 Hours of Lab Results: Laboratory Tests 07/24 07/23 0417 2201 Chemistry Sodium (137 - 145 mmol/L) 142 Potassium (3.5 - 5.1 mmol/L) 3.5 Chloride (98 - 107 mmol/L) 105 Carbon Dioxide (22 - 30 mmol/L) 28 Anion Gap (5 - 16) 9 BUN (9 - 20 mg/dL) 34 H Creatinine (0.7 - 1.2 mg/dL) 0.8 Estimated GFR (>60 ml/min) > 60 Glucose (65 - 99 mg/dL) 120 H Calcium (8.4 - 10.2 mg/dL) 7.3 L Phosphorus (2.5 - 4.5 mg/dL) 3.0 Magnesium (1.6 - 2.3 mg/dL) 2.0 Total Bilirubin (0.2 - 1.3 mg/dL) 0.5 AST (17 - 59 U/L) 44 ALT (21 - 72 U/L) 57 Albumin (3.5 - 5.0 g/dL) 1.9 L Hematology CBC w Diff MAN DIFF ORDERED MAN DIFF ORDERED WBC (4.8 - 10.8 /CUMM) 13.7 H 13.6 H RBC (4.70 - 6.10 /CUMM) 3.37 L 3.53 L Hgb (14.0 - 18.0 G/DL) 9.6 L 10.1 L Hct (42 - 52 %) 29.4 L 30.6 L MCV (80.0 - 94.0 FL) 87.3 86.7 MCH (27.0 - 31.0 PG) 28.4 28.5 RDW (11.5 - 14.5 %) 18.0 H 17.1 H Plt Count (130 - 400 /CUMM) 281 304 MPV (7.4 - 10.4 FL) 8.9 9.3 Gran % (42.2 - 75.2 %) 66.6 Lymphocytes % (20.5 - 51.1 %) 26.4 Monocytes % (1.7 - 9.3 %) 6.8 Eosinophils % (0 - 5 %) 0.1 Basophils % (0.0 - 2.0 %) 0.1 Absolute Granulocytes (1.4 - 6.5 /CUMM) 9.9 H Segmented Neutrophils (42.2 - 75.2 %) 76 H 60 Band Neutrophils (0.0 - 5.0 %) 4 14 H Absolute Lymphocytes (1.2 - 3.4 /CUMM) 3.9 H Lymphocytes (20.5 - 51.1 %) 17 L 16 L Monocytes (1.7 - 9.3 %) 2 7 Absolute Monocytes (0.10 - 0.60 /CUMM) 1.0 H Eosinophils (0 - 5.0 %) 1 Absolute Eosinophils (0.0 - 0.7 /CUMM) 0 Absolute Basophils (0.0 - 0.2 /CUMM) 0 Metamyelocytes (0.0 - 1.0 %) 3 H Nucleated RBCs (0.0 - 0.0 /100WBC) 10 H Platelet Estimate (ADEQUATE) ADEQUATE ADEQUATE Polychromasia 1+ 1+ Poikilocytosis 1+ Anisocytosis 1+ 2+ Stomatocytes 1+ PUBS MCHC (33.0 - 37.0 G/DL) 32.6 L 33.0 Other Body Source Fld Total RBCs Counted (%) 100 07/23 07/23 07/23 1715 1022 0950 Blood Gas pH (7.35 - 7.45 PH) 7.53 H pCO2 (35 - 45 TORR) 35 pO2 (80 - 100 TORR) 70 L HCO3 (21 - 28 MEQ/L) 28 ABG O2 Sat (Measured) (>96.0 %) 93.0 L P-50 (Temp Corrected) N Carboxyhemoglobin (1.5 - 5.0 %) 0.3 L O2 Concentration % 5L Temperature (97.0 - 100.0 FARH) 97.6 O2 Delivery Method N/C Hematology CBC w Diff NO MAN DIFF REQ WBC (4.8 - 10.8 /CUMM) 13.5 H RBC (4.70 - 6.10 /CUMM) 3.52 L Hgb (14.0 - 18.0 G/DL) 10.1 L Hct (42 - 52 %) 30.8 L MCV (80.0 - 94.0 FL) 87.6 MCH (27.0 - 31.0 PG) 28.7 RDW (11.5 - 14.5 %) 17.4 H Plt Count (130 - 400 /CUMM) 303 MPV (7.4 - 10.4 FL) 9.3 Gran % (42.2 - 75.2 %) 66.6 Lymphocytes % (20.5 - 51.1 %) 26.8 Monocytes % (1.7 - 9.3 %) 6.1 Eosinophils % (0 - 5 %) 0.3 Basophils % (0.0 - 2.0 %) 0.2 Absolute Granulocytes (1.4 - 6.5 /CUMM) 9.1 H Absolute Lymphocytes (1.2 - 3.4 /CUMM) 3.7 H Absolute Monocytes (0.10 - 0.60 /CUMM) 0.8 H Absolute Eosinophils (0.0 - 0.7 /CUMM) 0 Absolute Basophils (0.0 - 0.2 /CUMM) 0 PUBS MCHC (33.0 - 37.0 G/DL) 32.8 L Miscellaneous Phlebotomy Draw Site LEFT RADIAL Toxicology Urine Opiates Screen (>2000 NG/ML) 392.00 Methadone Screen (>300 NG/ML) < 40 Barbiturate Screen (>200 NG/ML) < 60 Ur Phencyclidine Scrn (>25 NG/ML) < 6.00 Amphetamines Screen (>1000 NG/ML) < 100 U Benzodiazepines Scrn (>200 NG/ML) < 85 Urine Cocaine Screen (>300 NG/ML) < 50 Urine Cannabis Screen (>50 NG/ML) < 5.00 Last 24 Hours of Les Results: Blood cultures 2 July 20 negative Recent Imaging Studies: Chest x-ray July 23, personally reviewed, reveals bibasilar densities, unchanged from the previous study Assessment/Plan Impression: Overall improved, status post successful extubation 2 days ago, with temperatures remaining normal on Daptomycin Day 4 and Meropenem Day 8, now 9 days status post return to the OR for exploratory laparotomy and suture repair of a leaking duodenal ulcer for peritonitis and an uncontrolled leak, with OR cultures positive for VRE and Enterobacter. He still has a significant amount of drainage from WILLEM drain #1, which raises concern for a recurrent leak. His white blood cell count remains mildly elevated, possible secondary to the "stress steroids". Suggestion: 1. Consider repeat CT of the abdomen and pelvis with oral contrast (would discuss with Surgery) 2. Continue Daptomycin and Meropenem
--- NOTE | 2017-07-24 09:49 | PN- Resident CRCU ---
Subjective HPI/CRCU Issues: -Status post perforation of duodenal ulcer wiring surgery and then repeat emergent surgery for peritonitis. -Septic shock on pressors -Ischemic heart disease with low ejection fraction -CAD/ICM 24 Hour Events: No complaints. Lying in bed, comfortably. Oriented to place. Objective Vital Signs & I&O Last 8 Hrs of Vitals and I&O: Intake & Output 07/24 1600 Intake Total 1264 Output Total 1550 Balance -286 Intake, IV 758 Intake, Tube 446 Feeding Intake, Tube 60 Irrigant Number 0 Bowel Movements Output, 445 Drainage Output, 80 Gastric Drainage Output, Urine 1025 Exam General Appearance: well developed/nourished, no apparent distress Respiratory: normal breath sounds, chest non-tender Cardiovascular: regular rate/rhythm Gastrointestinal: normal bowel sounds, soft Extremities: normal inspection Current Medications: Current Medications Sig/Buck Start time Last Medication Dose Route Stop Time Status Admin Acetaminophen 1,000 MG Q6P PRN 07/16 0530 07/20 N/A 1 UNIT IV 0659 Albuterol Sulfate 3 ML BID 07/24 2200 AC 07/24 INH 1025 Budesonide/ 2 PUF BID 07/09 2200 AC 07/24 Formoterol Fumarate INH 1010 Carvedilol 3.125 MG BID 07/22 1000 AC 07/24 PO 1010 Daptomycin 500 MG Q24H 07/20 1130 AC 07/24 Sodium Chloride 50 ML IV 1202 Fat Emulsion 350 ML Q24H 07/22 1900 DC 07/22 Intravenous IV 07/23 Furosemide 20 MG 7:30 AM, & 4:30 PM 07/19 1630 07/24 IV 1606 Hydrocortisone 50 MG Q8H 07/23 1600 07/24 Sodium Succinate IV 1607 Insulin Human Regular 100 UNIT Q12H 07/22 1800 AC 07/24 Sodium Chloride 100 ML IV 1202 Meropenem 1 GM Q8H 07/20 1000 AC 07/24 IV 1010 Morphine Sulfate 2 MG Q4P PRN 07/14 1145 AC 07/22 IV 1659 Octreotide Acetate 500 MCG Q20H 07/15 1400 AC 07/24 Dextrose/Water 500 ML IV 1607 Pantoprazole Sodium 40 MG BID 07/10 1016 AC 07/24 IV 1010 Potassium Chloride 20 MEQ Q1H 07/24 0715 DC 07/24 IV 07/24 0816 0900 Total Parenteral 1 UNIT 1900 07/23 1900 AC 07/23 Nutrition IV 07/24 Total Parenteral 1 UNIT 07/22 DC 07/22 Nutrition IV 07/23 Impression/Plan Impression/Problem List Impression: 76 year old gentleman PAF on Tikosyn, not on AC, 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 extubated, continues to be on tube feeds. Plan: - Await IR intrvention for post-pylorus Ng tube placement. #Septic shock - 2/2 peritonitis from perforated duodenal ulcer - Continues to be Daptomycin and Meropenem. #Hypotension - 2/2 septic shock. Resolved. #CAD s/p CABG -F/u cardio recs #Hx of PAF on Tikosyn - Curently in NSR, and rate controlled - Continue to hold tikosyn. Cardio following. # Perforated duodenal ulcer s/p repair - Octreotide drip to counter increased drainage. Will reacess the need and discuss with surgery tomorrow. - IV Protonix 40mg BID #USMAN -Normal. Maintain negative fluid balance. - Continue to montior UOP #Uncontrolled DM, secondary to Sepsis, pressors and octreotide - recovering - Will continue Insulin drip - Target Blood sugar 140 -180. - DVT prophylaxis - On heparin 5000iu TID SC - Diet - NPO - Code Status - Full Code Problem List: 1. Peritonitis Pain Ratin Tomorrow's Labs & Rationales: Anemia Hypokalemia (on Lasix) CBC/ICU bundle Plan DVT/Prophylaxis: mechanical, pharmacological
[2017-07-24 16:00] VITALS: BP 110/50
[2017-07-25] VITALS: BP 116/50
[2017-07-25 03:56] LABS: ABSOLUTE BASOPHIL COUNT 0 /CUMM (0.0-0.2); ABSOLUTE EOSINOPHIL COUNT 0.1 /CUMM (0.0-0.7); ABSOLUTE GRANULOCYTE CT 8.9 /CUMM (1.4-6.5); ABSOLUTE LYMPH COUNT 3.6 /CUMM (1.2-3.4); ABSOLUTE MONOCYTE COUNT 0.8 /CUMM (0.10-0.60); BASOPHIL % 0.2 % (0.0-2.0); EOSINOPHIL % 0.6 % (0-5); GRANULOCYTE % 66.2 % (42.2-75.2); HEMATOCRIT 30.4 % (42-52); MEAN CORPUSCULAR HGB 28.3 PG (27.0-31.0); MEAN CORPUSCULAR HGB CONC 32.1 G/DL (33.0-37.0); MEAN CORPUSCULAR VOLUME 88.3 FL (80.0-94.0); PLATELET COUNT 277 /CUMM (130-400); RBC DISTRIBUTION WIDTH 17.8 % (11.5-14.5); RED BLOOD CELL CT 3.45 /CUMM (4.70-6.10); WHITE BLOOD CELL COUNT 13.5 /CUMM (4.8-10.8)
--- NOTE | 2017-07-25 07:39 | PN- Resident CRCU ---
Vielka RODRÍGUEZ,[facility] 07/25/17 0738: Subjective HPI/CRCU Issues: -Status post perforation of duodenal ulcer requiring surgery and then repeat emergent surgery for peritonitis. -Septic shock on pressors, #Resolved -Ischemic heart disease with low ejection fraction -CAD/ICM 24 Hour Events: Mr Walls was seen and examined this morning. Resting comfortably in bed. He appears relatively somnolent although is able to respond appropriately. Does not endorse any complaints. Denies any fever, chills, nausea, vomiting. Objective Vital Signs & I&O Last 8 Hrs of Vitals and I&O: T: 97.7. HR: 68-71 RR:21-31 BP: 104/50-137/59 2 LNC Off ventilator/ extubated Intake 3179 Output -4039 NGT -330cc WILLEM-1 -875cc WILLEM-2 -190cc Total: 29167/20201 Intake & Output 07/25 1600 Intake Total 925 Output Total 1250 Balance -325 Intake, IV 349 Intake, Tube 491 Feeding Intake, Tube 85 Irrigant Output, Stool 50 Output, Urine 1200 Exam General Appearance: well developed/nourished, no apparent distress, alert Head: atraumatic Respiratory: normal breath sounds Cardiovascular: regular rate/rhythm Gastrointestinal: Obese Abdomen, Positive BS. Intact dressin. WILLEM dRains in place. Extremities: normal inspection Cranial Nerves: PERRL Skin: intact Current Medications: Current Medications Sig/Buck Start time Last Medication Dose Route Stop Time Status Admin Acetaminophen 1,000 MG Q6P PRN 07/16 0530 AC 07/20 N/A 1 UNIT IV 0659 Albuterol Sulfate 3 ML BID 07/24 2200 AC 07/25 INH 0856 Budesonide/ 2 PUF BID 07/09 2200 AC 07/25 Formoterol Fumarate INH 1026 Carvedilol 3.125 MG BID 07/22 1000 AC 07/25 PO 1024 Daptomycin 500 MG Q24H 07/20 1130 AC 07/25 Sodium Chloride 50 ML IV 1143 Furosemide 20 MG 7:30 AM, & 4:30 PM 07/19 1630 AC 07/25 IV 0800 Hydrocortisone 50 MG Q12 07/25 1000 AC 07/25 Sodium Succinate IV 1011 Hydrocortisone 50 MG Q8H 07/23 1600 DC 07/25 Sodium Succinate IV 0127 Insulin Aspart 0 Q4 07/25 1000 AC 07/25 SC 1348 Insulin Detemir 15 UNITS BID 07/25 1000 AC 07/25 SC 0913 Insulin Human Regular 100 UNIT Q12H 07/22 1800 DC 07/25 Sodium Chloride 100 ML IV 0414 Magnesium Sulfate 1 GM ONCE ONE 07/25 0500 DC 07/25 Dextrose/Water 100 ML IV 07/25 0859 0458 Meropenem 1 GM Q8H 07/20 1000 AC 07/25 IV 0911 Morphine Sulfate 2 MG Q4P PRN 07/14 1145 AC 07/22 IV 1659 Octreotide Acetate 500 MCG Q20H 07/15 1400 AC 07/25 Dextrose/Water 500 ML IV 1143 Pantoprazole Sodium 40 MG BID 07/10 1016 AC 07/25 IV 1011 Potassium Chloride 40 MEQ ONCE ONE 07/25 1145 DC 07/25 PO 07/25 1146 1144 Potassium Chloride 20 MEQ Q1H 07/25 0500 DC 07/25 IV 07/25 0601 0717 Total Parenteral 1 UNIT 1900 07/23 1900 DC 07/23 Nutrition IV 07/24 1859 191 Impression/Plan Impression/Problem List Impression: 76 year old gentleman PAF on Tikosyn, not on AC, 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 extubated, continues to be on tube feeds. #Septic shock - 2/2 peritonitis from perforated duodenal ulcer - Continue Daptomycin and Meropenem. Hydrocortisone reduced to 50 mg Q12. #Hypotension - 2/2 septic shock. Resolved. #CAD s/p CABG -F/u cardio recs Continue Carvedilol #Hx of PAF on Tikosyn - Curently in NSR, and rate controlled - Continue to hold tikosyn. Cardio following. # Perforated duodenal ulcer s/p repair - Octreotide drip to counter increased drainage--> can transition to sub Q. - IV Protonix 40mg BID #USMAN -Normal. Maintain negative fluid balance. - Continue to montior UOP #Uncontrolled DM, secondary to Sepsis, pressors and octreotide - recovering - Transition to Levemir. Novolog SS, updated as per recomendation from Endo. Will DC the Insulin Drip. - Target Blood sugar 140 -180. - DVT prophylaxis ALPS - Diet Continue on J tube feeding. - Code Status - Full Code Problem List: 1. Peritonitis 2. Ischemic bowel disease 3. Septic shock 4. Duodenal ulcer with perforation 5. Weakness Pain Ratin Tomorrow's Labs & Rationales: CBC: Monitor H/H ICu Bundle: Monitor Electrolytes Plan DVT/Prophylaxis: mechanical, pharmacological Trey Celeste MD 07/25/17 1100: Attending MD Review Statement Attending Sign Off Attending Cosign Statement: I have: examined this patient, reviewed avalbl EMR data, personally reviewd images, discussd w/resident/PA/POT RELINER, discussed mgmt plan w/riya, discussed mgmt plan w/CM, discussed mgmt plan w/pt, agreed w/resident/PA/POT RELINER, amended to note. Other Findings: Trey Sharma M.D. have examined this patient, reviewed available EMR data, personally reviewed images, discussed with resident/PA/POT RELINER, discussed management plan with housestaff and nursing staff, discussed managment plan all of healthcare providers, discussed management plan with patient and/or family, agreed with resident/PA/POT RELINER. The past history and parts of the chart have been autopopulated. 76-year-old man extubated after hypoxemic respiratory failure and septic shock. He has a history of atrial flutter that is now controlled. He's also been on steroids for BP support for stress dosing. We will continue nocturnal CPAP for his obstructive sleep apnea and continue to follow ID recommendations for his antibiotic choices. We will inquire with surgery the end point for octreotide drip and the insulin drip should be turned off shortly as well. Mechanical DVT prophylaxis at this time. Concern for GI bleeding prevented subcutaneous heparin use previously. Continue to follow-up production consultant recommendations. Total time spent 35 minutes.
[2017-07-25 08:00] VITALS: BP 110/58
--- NOTE | 2017-07-25 08:14 | PN- Diabetes ---
Assessment/Plan Assessment: 76-year-old male with Hx of CAD with low ejection fraction, atrial fibrillation, AICD, previous infection of hip with prolonged antibiotic, history of peptic ulcer disease, diabetes and renal stone, was admitted for perforation of duodenum now with septic shock in ICU. He was on 3 pressors, TPN, octreotide drip and bicarb drip. His BP remained low and stress dose of steroid was initiated despite his am cortisol was 24.8. His glucose level was in the 300s. Insulin drip was initiated. The patient is off TPN. He is on tube feedings with Vital 60 mL per hour. He is on the insulin drip at 3 units per hour. Her blood sugars were 125, 122, 138 , 166 and 138. Patient is still on hydrocortisone 50 mg IV every 8 hours and octreotide drip. Plan: 1. decrease Hydrocortisone to 50 mg iv every 12 hours today; 2. stop insulin drip; 3. start Levemir 15 units twice a day; 4. start Novolog coverage every 4 hours ( hold Novolog if feeding is held); detail see the inpatient DM order; 5. replete K; 6. monitor FSGs, electrolytes and vital signs will follow. Inpatient Diabetes Orders Every 4 Hours: Bolus Insulin: Novolog < 80 mg/dl: no coverage 80-100 mg/dl: no coverage 101-120 mg/dl: 6 units 121-150 mg/dl: 6 units 151-200 mg/dl: 8 units 201-250 mg/dl: 10 units 251-300 mg/dl: 12 units 301-350 mg/dl: 14 units 351-400 mg/dl: 16 units > 400 mg/dl: 18 units Subjective Subjective: Patient feels okay this morning. Objective Last 24 Hrs of Vital Signs/I&O Vital Signs Date Time Temp Pulse Resp B/P B/P Pulse O2 O2 Flow FiO2 Mean Ox Delivery Rate 07/25 0501 91 Nasal 4.0L Cannula 07/25 0000 95 Nasal 4.0L Cannula 07/25 0000 98.8 74 29 116/50 95 Nasal 4.0L Cannula 07/24 2151 78 129/69 07/24 2130 95 Nasal 4.0L Cannula 07/24 2000 94 Nasal 4.0L Cannula 07/24 1600 98.7 70 25 110/50 93 Nasal 4.0L Cannula 07/24 1600 92 Nasal 4.0L Cannula 07/24 1200 91 Nasal 4.0L Cannula 07/24 1030 Nasal 2.0L Cannula 07/24 1029 96 Nasal 2.0L Cannula 07/24 1010 69 114/40 Intake & Output 07/25 1600 07/25 0800 07/25 0000 Intake Total 972 1093 Output Total 1024 1235 Balance -52 -142 Intake, IV 399 251 Intake, Oral 0 0 Intake, Other 150 Intake, Tube 488 517 Feeding Intake, Tube 85 175 Irrigant Number 3 1 Bowel Movements Output, 450 170 Drainage Output, Urine 574 1065 Findings Pertinent Lab/Les Results: Laboratory Tests 07/25 0334 Chemistry Sodium (137 - 145 mmol/L) 144 Potassium (3.5 - 5.1 mmol/L) 3.4 L Chloride (98 - 107 mmol/L) 107 Carbon Dioxide (22 - 30 mmol/L) 29 Anion Gap (5 - 16) 8 BUN (9 - 20 mg/dL) 34 H Creatinine (0.7 - 1.2 mg/dL) 0.8 Estimated GFR (>60 ml/min) > 60 Glucose (65 - 99 mg/dL) 106 H Calcium (8.4 - 10.2 mg/dL) 7.3 L Phosphorus (2.5 - 4.5 mg/dL) 3.2 Magnesium (1.6 - 2.3 mg/dL) 1.9 Total Bilirubin (0.2 - 1.3 mg/dL) 0.6 AST (17 - 59 U/L) 33 ALT (21 - 72 U/L) 49 Albumin (3.5 - 5.0 g/dL) 2.0 L Hematology CBC w Diff MAN DIFF ORDERED WBC (4.8 - 10.8 /CUMM) 13.5 H RBC (4.70 - 6.10 /CUMM) 3.45 L Hgb (14.0 - 18.0 G/DL) 9.8 L Hct (42 - 52 %) 30.4 L MCV (80.0 - 94.0 FL) 88.3 MCH (27.0 - 31.0 PG) 28.3 RDW (11.5 - 14.5 %) 17.8 H Plt Count (130 - 400 /CUMM) 277 MPV (7.4 - 10.4 FL) 9.0 Gran % (42.2 - 75.2 %) 66.2 Lymphocytes % (20.5 - 51.1 %) 26.9 Monocytes % (1.7 - 9.3 %) 6.1 Eosinophils % (0 - 5 %) 0.6 Basophils % (0.0 - 2.0 %) 0.2 Absolute Granulocytes (1.4 - 6.5 /CUMM) 8.9 H Segmented Neutrophils (42.2 - 75.2 %) 69 Band Neutrophils (0.0 - 5.0 %) 2 Absolute Lymphocytes (1.2 - 3.4 /CUMM) 3.6 H Lymphocytes (20.5 - 51.1 %) 23 Monocytes (1.7 - 9.3 %) 5 Absolute Monocytes (0.10 - 0.60 /CUMM) 0.8 H Eosinophils (0 - 5.0 %) 1 Absolute Eosinophils (0.0 - 0.7 /CUMM) 0.1 Absolute Basophils (0.0 - 0.2 /CUMM) 0 Nucleated RBCs (0.0 - 0.0 /100WBC) 2 H Platelet Estimate (ADEQUATE) ADEQUATE Polychromasia 1+ Anisocytosis 1+ Stomatocytes 1+ PUBS MCHC (33.0 - 37.0 G/DL) 32.1 L
--- NOTE | 2017-07-25 09:47 | PN- General Surgery ---
Surgical Brief Attending Note Brief Attending Note: PATIENT HAS CONTINUED SLOW IMPROVEMENT. THERE IS PERSISTENT ENTERIC LEAK FROM DUODENAL REPAIR, ANTICIPATED. THE DRAINAGE IS CONTROLLED FROM SURGICALLY PLACED DRAINS, EVIDENCED BY CT 07/20(NO UNDRAINED COLLECTION). THERE IS NO OPTION FOR REPEAT SURGICAL REPAIR FOR 6-8 WEEKS. IN THE INTERIM, HE WILL BE MANAGED MEDICALLY. THERE IS A CHANCE THAT THE LEAK WILL SEAL SPONTANEOUSLY. TIME WILL TELL. CONTINUE NPO,NGT AND ENTERIC FEEDING THROUGH JEJUNOSTOMY TUBE.
--- NOTE | 2017-07-25 11:26 | PN- Infect Dx ---
Subjective Subjective: Afebrile. He complains of abdominal pain. Objective Last 24 Hrs of Vital Signs/I&O Vital Signs Date Time Temp Pulse Resp B/P B/P Pulse O2 O2 Flow FiO2 Mean Ox Delivery Rate 07/25 1024 71 115/77 07/25 0858 96 Nasal 4.0L Cannula 07/25 0501 91 Nasal 4.0L Cannula 07/25 0000 95 Nasal 4.0L Cannula 07/25 0000 98.8 74 29 116/50 95 Nasal 4.0L Cannula 07/24 2151 78 129/69 07/24 2130 95 Nasal 4.0L Cannula 07/24 2000 94 Nasal 4.0L Cannula 07/24 1600 98.7 70 25 110/50 93 Nasal 4.0L Cannula 07/24 1600 92 Nasal 4.0L Cannula 07/24 1200 91 Nasal 4.0L Cannula Intake & Output 07/25 1600 07/25 0800 07/25 0000 Intake Total 972 1093 Output Total 1024 1235 Balance -52 -142 Intake, IV 399 251 Intake, Oral 0 0 Intake, Other 150 Intake, Tube 488 517 Feeding Intake, Tube 85 175 Irrigant Number 3 1 Bowel Movements Output, 450 170 Drainage Output, Urine 574 1065 Physical Exam Other Physical Findings: He is lethargic but responsive on nasal oxygen in no acute distress Lungs decreased breath sounds bilaterally Heart regular rhythm with no murmur Abdomen is obese, distended, tender to palpation diffusely, with positive bowel sounds; dressing intact over the incision; WILLEM drains with significant output, with 750 mL from drain #1 and 120 mL from drain #2 yesterday Extremities 1+ edema all extremities; PICC in the right upper extremity with no inflammation at the site Duvall catheter remains in place Results Last 24 Hours of Lab Results: Laboratory Tests 07/25 0334 Chemistry Sodium (137 - 145 mmol/L) 144 Potassium (3.5 - 5.1 mmol/L) 3.4 L Chloride (98 - 107 mmol/L) 107 Carbon Dioxide (22 - 30 mmol/L) 29 Anion Gap (5 - 16) 8 BUN (9 - 20 mg/dL) 34 H Creatinine (0.7 - 1.2 mg/dL) 0.8 Estimated GFR (>60 ml/min) > 60 Glucose (65 - 99 mg/dL) 106 H Calcium (8.4 - 10.2 mg/dL) 7.3 L Phosphorus (2.5 - 4.5 mg/dL) 3.2 Magnesium (1.6 - 2.3 mg/dL) 1.9 Total Bilirubin (0.2 - 1.3 mg/dL) 0.6 AST (17 - 59 U/L) 33 ALT (21 - 72 U/L) 49 Albumin (3.5 - 5.0 g/dL) 2.0 L Hematology CBC w Diff MAN DIFF ORDERED WBC (4.8 - 10.8 /CUMM) 13.5 H RBC (4.70 - 6.10 /CUMM) 3.45 L Hgb (14.0 - 18.0 G/DL) 9.8 L Hct (42 - 52 %) 30.4 L MCV (80.0 - 94.0 FL) 88.3 MCH (27.0 - 31.0 PG) 28.3 RDW (11.5 - 14.5 %) 17.8 H Plt Count (130 - 400 /CUMM) 277 MPV (7.4 - 10.4 FL) 9.0 Gran % (42.2 - 75.2 %) 66.2 Lymphocytes % (20.5 - 51.1 %) 26.9 Monocytes % (1.7 - 9.3 %) 6.1 Eosinophils % (0 - 5 %) 0.6 Basophils % (0.0 - 2.0 %) 0.2 Absolute Granulocytes (1.4 - 6.5 /CUMM) 8.9 H Segmented Neutrophils (42.2 - 75.2 %) 69 Band Neutrophils (0.0 - 5.0 %) 2 Absolute Lymphocytes (1.2 - 3.4 /CUMM) 3.6 H Lymphocytes (20.5 - 51.1 %) 23 Monocytes (1.7 - 9.3 %) 5 Absolute Monocytes (0.10 - 0.60 /CUMM) 0.8 H Eosinophils (0 - 5.0 %) 1 Absolute Eosinophils (0.0 - 0.7 /CUMM) 0.1 Absolute Basophils (0.0 - 0.2 /CUMM) 0 Nucleated RBCs (0.0 - 0.0 /100WBC) 2 H Platelet Estimate (ADEQUATE) ADEQUATE Polychromasia 1+ Anisocytosis 1+ Stomatocytes 1+ PUBS MCHC (33.0 - 37.0 G/DL) 32.1 L Last 24 Hours of Les Results: No new cultures Assessment/Plan Impression: Condition remains poor, though stable, with temperatures remaining normal on Daptomycin Day 5 and Meropenem Day 9, now 10 days status post return to the OR for exploratory laparotomy and suture repair of a leaking duodenal ulcer for peritonitis and an uncontrolled leak, with OR cultures positive for VRE and Enterobacter. He still has a significant amount of drainage from his WILLEM drains, presumably secondary to a persistent enteric leak from his duodenal repair per Surgery. His white blood cell count remains mildly elevated, possible secondary to his "stress steroids", which are to be tapered, versus the ongoing enteric leak versus the development of a collection. Suggestion: 1. Further management of his abdominal wound and enteric leak per Surgery 2. Taper steroids per Endocrine 3. Continue Daptomycin and Meropenem
[2017-07-25 14:15] VITALS: BP 98/52
[2017-07-26] VITALS: BP 96/50
[2017-07-26 04:54] LABS: ABSOLUTE BASOPHIL COUNT 0 /CUMM (0.0-0.2); ABSOLUTE EOSINOPHIL COUNT 0.1 /CUMM (0.0-0.7); ABSOLUTE GRANULOCYTE CT 9.5 /CUMM (1.4-6.5); ABSOLUTE LYMPH COUNT 3.5 /CUMM (1.2-3.4); ABSOLUTE MONOCYTE COUNT 1.1 /CUMM (0.10-0.60); BASOPHIL % 0.2 % (0.0-2.0); EOSINOPHIL % 0.4 % (0-5); GRANULOCYTE % 66.6 % (42.2-75.2); HEMATOCRIT 31.9 % (42-52); MEAN CORPUSCULAR HGB 28.8 PG (27.0-31.0); MEAN CORPUSCULAR HGB CONC 32.3 G/DL (33.0-37.0); MEAN CORPUSCULAR VOLUME 88.9 FL (80.0-94.0); MEAN PLATELET VOLUME 8.8 FL (7.4-10.4); PLATELET COUNT 307 /CUMM (130-400); RBC DISTRIBUTION WIDTH 18.9 % (11.5-14.5); RED BLOOD CELL CT 3.59 /CUMM (4.70-6.10); WHITE BLOOD CELL COUNT 14.2 /CUMM (4.8-10.8)
--- NOTE | 2017-07-26 05:52 | PN- General Surgery ---
Subjective Subjective: remains in ICU, though off vent and off pressors. no sensible verbal response. Objective Vital Signs and I&Os Vital Signs Date Time Temp Pulse Resp B/P B/P Pulse O2 O2 Flow FiO2 Mean Ox Delivery Rate 07/26 0400 96 Venti Mask 50% 07/26 0000 92 Nasal 4.0L Cannula 07/26 0000 97.3 70 24 96/50 94 Nasal 4.0L Cannula 07/25 2127 69 20 122/60 07/25 1824 91 Nasal 4.0L Cannula 07/25 1415 98.2 69 16 98/52 91 Nasal 4.0L Cannula 07/25 1200 93 Nasal 4.0L Cannula 07/25 1024 71 115/77 07/25 0858 96 Nasal 4.0L Cannula 07/25 0800 98.2 69 24 110/58 93 Nasal 4.0L Cannula Intake & Output 07/26 0800 07/26 0000 07/25 1600 07/25 0800 07/25 0000 07/24 1600 Intake Total 910 827 061 7222 1264 Output Total 1530 1250 1024 1235 1550 Balance -620 -325 -52 -142 -286 Intake, IV 280 349 399 251 758 Intake, Oral 0 0 Intake, Other 150 Intake, Tube 480 491 488 517 446 Feeding Intake, Tube 150 85 85 175 60 Irrigant Number 2 3 1 0 Bowel Movements Output, 300 450 170 445 Drainage Output, 80 Gastric Drainage Output, Stool 50 Output, Urine 1230 2405 063 2498 1025 Physical Exam: jp1:150/150/310 jp2:100/150/105 NGT: 100/100/50 gen- nad card- s1s2 pulm- coarse thoughout, on 50%VM abd- soft, inferior aspect staple line open w purulent drainage, irrigated w NS and wick reinserted, redressed. JPs w bilious drainage. ext- calves edematous, alps on Assessment/Plan Assessment/Plan A- POD10 sp exlap with primary repair and tono patch of perf duo ulcer, POD17 sp initial exlap with tono patch repair of perf duo ulcer, continues to be in ICU, on ventimask, tolerating tube feeds, no longer requiring pressor support, with wound infection sp staple removal with purulent drainage, with continued bilious output of drain. P- jps to self suction cont tf, npo midline wound- keep wick in place, daily changes. abx per id monitor bowel fxn medical mgmt per primary team no plan for return to OR at this time will dw attending
--- NOTE | 2017-07-26 07:22 | PN- Resident CRCU ---
Vielka RODRÍGUEZ,[facility] 07/26/17 0722: Subjective HPI/CRCU Issues: -Status post perforation of duodenal ulcer requiring surgery and then repeat emergent surgery for peritonitis. -Septic shock on pressors, #Resolved -Ischemic heart disease with low ejection fraction -CAD/ICM 24 Hour Events: Patient seen and examined. Had to be intubated this am due due acute desaturation and respiratory decline. Objective Vital Signs & I&O Last 8 Hrs of Vitals and I&O: Intake & Output 07/26 1600 Intake Total 889 Output Total 865 Balance 24 Intake, IV 447 Intake, Tube 387 Feeding Intake, Tube 55 Irrigant Number 1 Bowel Movements Output, 415 Drainage Output, Urine 450 Exam General Appearance: intubated Head: atraumatic, normal appearance Ears, Nose, Throat: normal pharynx Neck: normal inspection Respiratory: quiet respiration Cardiovascular: regular rate/rhythm Gastrointestinal: normal bowel sounds, no tenderness. WILLEM drains in place. Draining well. Extremities: pedal edema Cranial Nerves: PERRL Impression/Plan Impression/Problem List Impression: 76 year old gentleman PAF on Tikosyn, not on AC, 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 extubated, continues to be on tube feeds. #Septic shock - 2/2 peritonitis from perforated duodenal ulcer - Continue Daptomycin and Meropenem. Hydrocortisone reduced to 50 mg Q8 #CAD s/p CABG -F/u cardio recs Continue Carvedilol #Hx of PAF on Tikosyn - Curently in NSR, and rate controlled - Continue to hold tikosyn. Cardio following. # Perforated duodenal ulcer s/p repair - Octreotide drip to counter increased drainage. - IV Protonix 40mg BID #USMAN -Normal. Maintain negative fluid balance. - Continue to montior UOP #Uncontrolled DM, secondary to Sepsis, pressors and octreotide - recovering - Continue Levemir. Novolog SS, updated as per recomendation from Endo. - Target Blood sugar 140 -180. - DVT prophylaxis ALPS - Diet Continue on J tube feeding. - Code Status - Full Code Problem List: 1. Peritonitis 2. Septic shock 3. Duodenal ulcer with perforation 4. Lactic acidosis 5. Perforated viscus 6. Sepsis due to urinary tract infection 7. Unable to ambulate Pain Ratin Tomorrow's Labs & Rationales: ICU Bundle: Monitro electrolytes CBC: Monitor H/H XRa: Due to intubation ABG: Plan DVT/Prophylaxis: mechanical, pharmacological Trey Celeste MD 07/26/17 1212: Objective Current Medications: Current Medications Sig/Buck Start time Last Medication Dose Route Stop Time Status Admin Acetaminophen 1,000 MG Q6P PRN 07/16 0530 AC 07/20 N/A 1 UNIT IV 0659 Acetylcysteine 2 ML BID 07/26 2200 AC 07/27 INH 0811 Albuterol Sulfate 3 ML EVERY 4 HRS/AWAKE 07/27 0800 AC 07/27 INH 0808 Albuterol Sulfate 3 ML BID 07/24 2200 DC 07/26 INH 1959 Budesonide/ 2 PUF BID 07/26 1056 AC 07/27 Formoterol Fumarate INH 0813 Budesonide/ 2 PUF BID 07/09 2200 DC 07/25 Formoterol Fumarate INH 2200 Carvedilol 3.125 MG BID 07/22 1000 AC 07/25 PO 2127 Daptomycin 500 MG Q24H 07/20 1130 AC 07/26 Sodium Chloride 50 ML IV 1111 Fentanyl Citrate 1,000 MCG Q20H 07/27 0300 AC 07/27 Dextrose/Water 250 ML IV 0915 Fentanyl Citrate 1,000 MCG Q8H 07/26 1030 DC 07/26 Dextrose/Water 250 ML IV 07/27 0259 2351 Fentanyl Citrate 100 MCG .STK-MED ONE 07/26 0948 DC IM 07/26 0949 Furosemide 20 MG 7:30 AM, & 4:30 PM 07/19 1630 AC 07/27 IV 0658 Hydrocortisone 50 MG Q12 07/25 1000 AC 07/27 Sodium Succinate IV 0922 Insulin Aspart 0 Q4 07/25 1000 AC 07/27 SC 0607 Insulin Detemir 15 UNITS BID 07/25 1000 AC 07/27 SC 0922 Meropenem 1 GM Q8H 07/20 1000 AC 07/27 IV 0921 Morphine Sulfate 2 MG Q4P PRN 07/14 1145 AC 07/22 IV 1659 Norepinephrine 4 MG Q24H 07/26 0800 DC 07/26 Sodium Chloride 250 ML IV 0730 Octreotide Acetate 500 MCG Q20H 07/15 1400 AC 07/27 Dextrose/Water 500 ML IV 0657 Pantoprazole Sodium 40 MG BID 07/10 1016 AC 07/27 IV 0921 Attending MD Review Statement Attending Sign Off Attending Cosign Statement: I have: examined this patient, reviewed avalbl EMR data, personally reviewd images, discussd w/resident/PA/MOSS PICKER, discussed mgmt plan w/riya, discussed mgmt plan w/CM, discussed mgmt plan w/pt, agreed w/resident/PA/MOSS PICKER, amended to note. Other Findings: I, Trey Celeste M.D. have examined this patient, reviewed available EMR data, personally reviewed images, discussed with resident/PA/MOSS PICKER, discussed management plan with housestaff and nursing staff, discussed managment plan all of healthcare providers, discussed management plan with patient and/or family, agreed with resident/PA/MOSS PICKER. The past history and parts of the chart have been autopopulated. Impression 76-year-old man extubated after hypoxemic respiratory failure and septic shock. He has a history of atrial flutter that is now controlled. He's also been on steroids for BP support for stress dosing. Plan -reintubated - likely secondary to mucous plugging - acute hypoxemic respiratory failure -plan for ct chest/abd/pelvis - without contrast, surgery (Dr. Trimble) following -f/u ID recommendations -DVT prophylaxis at all times TTS 35 min
--- NOTE | 2017-07-26 07:57 | Event Note ---
Event Note Event Note: I was called urgently to the patient's bedside for severe respiratory distress and hypoxia. The patient also was noted to be unresponsive for the previous 10 minutes. The patient's oxygen saturation was 60% on a 55% Ventimask which was then increased to 100%. BiPAP was not attempted as the patient has an OG tube for nutrition. I examined the patient and he remained unresponsive, in significant respiratory distress and using his accessory muscles for respiration. Lung sounds were very rhonchorous. ABG prior to intubation showed a pH of 7.21, PCO2 80, PO2 40, and a bicarbonate of 32. Anesthesia and respiratory were called stat. The patient was preoxygenated with Ambu bag ventilation. He was intubated without complication. Ventilator settings were signed: AC 600/26/100/5. The patient was suctioned and copious secretions were removed from the endotracheal tube suggesting aspiration. A follow-up chest x- ray and ABG were ordered and are pending. The patient remains critically ill and will continue to be followed in the critical care unit. I discussed the plan of care with the housestaff as well as the attending of record Dr. Celeste. TTS 45
[2017-07-26 08:00] VITALS: BP 86/60
--- NOTE | 2017-07-26 08:20 | PN- Diabetes ---
Assessment/Plan Assessment: 76-year-old male with Hx of CAD with low ejection fraction, atrial fibrillation, AICD, previous infection of hip with prolonged antibiotic, history of peptic ulcer disease, diabetes and renal stone, was admitted for perforation of duodenum now with septic shock in ICU. He was on 3 pressors, TPN, octreotide drip and bicarb drip. His BP remained low and stress dose of steroid was initiated despite his am cortisol was 24.8. His glucose level was in the 300s. Insulin drip was initiated. TPN was discontinued. He was on tube feedings with Vital 60 mL per hour. Patient was placed on Levemir 15 units twice a day and Novolog coverage every 4 hours on 07/25/2017. His blood sugars were 169, 168, 212, 106, 171 and 158. Patient is still on hydrocortisone 50 mg IV every 12 hours and octreotide drip. Patient was in respiratory distress this morning and was re-intubated. Currently he is on Propofol. His BP was low and he was restarted on Levophed drip. Currently his BP is better. Feeding was held because of intubation; he will be on tube feeding again. Plan: 1. recommend increasing hydrocortisone to 50 mg iv every 8 hours; 2. continue the current insulin regimen for now; hold Novolog coverage if the feeding is held; 3. monitoor FSGs, vital signs and electrolytes; will follow. Subjective Subjective: patient is intubated Objective Last 24 Hrs of Vital Signs/I&O Vital Signs Date Time Temp Pulse Resp B/P B/P Pulse O2 O2 Flow FiO2 Mean Ox Delivery Rate 07/26 0732 100 07/26 0400 96 Venti Mask 50% 07/26 0000 92 Nasal 4.0L Cannula 07/26 0000 97.3 70 24 96/50 94 Nasal 4.0L Cannula 07/25 2127 69 20 122/60 07/25 1824 91 Nasal 4.0L Cannula 07/25 1415 98.2 69 16 98/52 91 Nasal 4.0L Cannula 07/25 1200 93 Nasal 4.0L Cannula 07/25 1024 71 115/77 07/25 0858 96 Nasal 4.0L Cannula Intake & Output 07/26 1600 07/26 0800 07/26 0000 Intake Total 1047 910 Output Total 1450 1530 Balance -403 -620 Intake, IV 282 280 Intake, Oral 0 Intake, Tube 530 480 Feeding Intake, Tube 235 150 Irrigant Number 1 2 Bowel Movements Output, 525 300 Drainage Output, 200 Gastric Drainage Output, Urine 725 1230 Findings Pertinent Lab/Les Results: Laboratory Tests 07/26 07/26 0752 0720 Blood Gas pH (7.35 - 7.45 PH) 7.21 *L pCO2 (35 - 45 TORR) 80 *H pO2 (80 - 100 TORR) 46 *L HCO3 (21 - 28 MEQ/L) 32 H ABG O2 Sat (Measured) (>96.0 %) 63.0 L P-50 (Temp Corrected) N Carboxyhemoglobin (1.5 - 5.0 %) 0 L O2 Concentration % 100% Temperature (97.0 - 100.0 FARH) 98.6 O2 Delivery Method AMBU BAG Chemistry Lactic Acid Cancelled Miscellaneous Phlebotomy Draw Site LEFT RADIAL 07/26 0337 Chemistry Sodium (137 - 145 mmol/L) 145 Potassium (3.5 - 5.1 mmol/L) 4.3 Chloride (98 - 107 mmol/L) 106 Carbon Dioxide (22 - 30 mmol/L) 30 Anion Gap (5 - 16) 9 BUN (9 - 20 mg/dL) 34 H Creatinine (0.7 - 1.2 mg/dL) 0.9 Estimated GFR (>60 ml/min) > 60 Glucose (65 - 99 mg/dL) 150 H Calcium (8.4 - 10.2 mg/dL) 7.6 L Phosphorus (2.5 - 4.5 mg/dL) 4.5 Magnesium (1.6 - 2.3 mg/dL) 2.2 Total Bilirubin (0.2 - 1.3 mg/dL) 0.8 AST (17 - 59 U/L) 30 ALT (21 - 72 U/L) 49 Albumin (3.5 - 5.0 g/dL) 2.2 L Hematology CBC w Diff MAN DIFF ORDERED WBC (4.8 - 10.8 /CUMM) 14.2 H RBC (4.70 - 6.10 /CUMM) 3.59 L Hgb (14.0 - 18.0 G/DL) 10.3 L Hct (42 - 52 %) 31.9 L MCV (80.0 - 94.0 FL) 88.9 MCH (27.0 - 31.0 PG) 28.8 RDW (11.5 - 14.5 %) 18.9 H Plt Count (130 - 400 /CUMM) 307 MPV (7.4 - 10.4 FL) 8.8 Gran % (42.2 - 75.2 %) 66.6 Lymphocytes % (20.5 - 51.1 %) 24.8 Monocytes % (1.7 - 9.3 %) 8.0 Eosinophils % (0 - 5 %) 0.4 Basophils % (0.0 - 2.0 %) 0.2 Absolute Granulocytes (1.4 - 6.5 /CUMM) 9.5 H Segmented Neutrophils (42.2 - 75.2 %) 67 Band Neutrophils (0.0 - 5.0 %) 4 Absolute Lymphocytes (1.2 - 3.4 /CUMM) 3.5 H Lymphocytes (20.5 - 51.1 %) 21 Monocytes (1.7 - 9.3 %) 7 Absolute Monocytes (0.10 - 0.60 /CUMM) 1.1 H Eosinophils (0 - 5.0 %) 1 Absolute Eosinophils (0.0 - 0.7 /CUMM) 0.1 Absolute Basophils (0.0 - 0.2 /CUMM) 0 Platelet Estimate (ADEQUATE) ADEQUATE Polychromasia 1+ Hypochromic-Microcytic 1+ Poikilocytosis 2+ Basophilic Stippling 1+ Ovalocytes 1+ Stomatocytes 1+ PUBS MCHC (33.0 - 37.0 G/DL) 32.3 L Other Body Source Fld Total RBCs Counted (%) 100
--- NOTE | 2017-07-26 08:31 | RADIOLOGY REPORT ---
EXAMINATION: XR PORTABLE CHEST CLINICAL INFORMATION: Intubated. Confirm ET tube placement. COMPARISON: Chest radiograph 07/23/2017. TECHNIQUE: Portable frontal view of the chest was obtained. FINDINGS: There has been interval insertion of an endotracheal tube which inferiorly curves towards the right. The kika is not well seen. Consider withdrawing endotracheal tube by 1 to 2 cm. There is a nasogastric catheter which descends below the diaphragm with tip out of view. There are small bilateral pleural effusions slightly larger on the right and bibasilar atelectasis. The extreme lung bases are not included in the [id number]. The upper lung flor are clear. There is no pneumothorax. There is a left chest wall AICD in place. There is cardiomegaly and evidence of prior median sternotomy. IMPRESSION: 1. Interval insertion of an endotracheal tube which appears somewhat low positioned although the kika is not well seen. Consider withdrawing it 1 to 2 cm. 2. Small bilateral pleural effusions and bibasilar atelectasis. 3. Stable cardiomegaly.
--- NOTE | 2017-07-26 08:44 | PN- General Surgery ---
Surgical Brief Attending Note Brief Attending Note: patient reintubated this morning for hypoxemia and respiratory acidosis. Now back on norepi gtt. Overall intraabdominal status stable with continued output from drains. question is that of whether or not the duodenal leak is controlled. when better stablized , recommend CT abd/pelvis for clarification. under no circumstance should oral contrast be given. we will be specifically looking for an undrained collection. we already know there is a leak. no reason to further contaminate his peritoneum with contrast. continue tube feeds. given the amount of gabriela output, there is likley a component of leak-induced pancreatic insufficiency. options for tube feeds are 1. elemental or 2. standard tube feeds with reinstillation of gabriela contents into feeding tube.
--- NOTE | 2017-07-26 10:28 | Transfer of Care Summary ---
Hospital Course Course Hospital Course: This is a 76-year-old man with a history of diabetes, coronary artery disease, status post CABG, paroxysmal atrial fibrillation, on Tikosyn but no anticoagulation, status post pacemaker/AICD, COPD, with obstructive sleep apnea, maintained on CPAP, GI bleed, BPH, osteoarthritis, venous insufficiency, status post right hip replacement 2-1/2 years prior to admission, hospitalized 4 months prior to admission with an infected right hip secondary to Enterococcus, apparently treated with a 6 week course of Unasyn after refusing right hip replacement, but readmitted 2-1/2 months prior to admission for removal of the prosthesis, with placement of a antibiotic loaded spacer, discharged to a rehabilitation facility on Unasyn for 4 weeks, with OR cultures negative, and ultimately discharged home, with plans for a right hip reimplantation in several weeks, begun on Macrodantin 1 day prior to admission for a urinary tract infection, admitted on July 08 with increasing weakness and pain in his right hip. Labs on admission: He was febrile to 101.9. Laboratory data revealed a white blood cell count of 15,000, BUN/creatinine 21 and 0.9, lactic acid 3.6, bilirubin 1.4, proBNP 1540. On July 09 he complained of increased abdominal pain and was noted to have an increasing lactic acid and bandemia, with an increased creatinine to 1.7. A repeat CT of the abdomen and pelvis revealed free air and he was moved to the ICU and begun on Ceftazidime and Flagyl. He was evaluated by Surgery, with a right IJ inserted, and he was taken to the OR where he was found to have a perforated duodenal ulcer. 1. Perforated duodenal ulcer: Postoperatively he was given 1 dose of Vancomycin, continued on Flagyl and changed to Meropenem. He was begun on Levophed for borderline hypotension. During the course thereafter, he continued to be febrile off and on, his overall condition on 07/11/2017 look for any had continued drainage through the WILLEM drain that was placed post surgical exploration and Fabrizio patch repair of ulcer. The final OR cultures remain negative. His antibiotics were changed to Unasyn 3 g IV every 8 hours. On 03/2017, CT scan of the abdomen was obtained with oral contrast, which showed persistent leak. Initially it was planned to manage the duodenal leak on CT on a non-operative basis, but on 07/15/2017, the patient was found to be extremely tachypneic and complained of abdominal pain. Examination was concerning for reperforation/peritonitis. Re imaging of the abdomen revealed retained fluid and the patient was taken to the OR. The patient's condition improved and the antibiotics were continued, now vancomycin and meropenem (07/18/2017). After the results from the OR culture, patient's antibiotics were changed to daptomycin and meropenem 07/19/2017. On around 07/21/17, he was extubated, but on 07/25/2017 there was concern for him developing abdominal pain; the following day he was again severely tachypneic and hypoxemic, requiring reintubation 07/26. During his prolonged stay, he has required pressor support with nor epi, vasopressin etc. for his hypotension secondary to sepsis from perforation and peritonitis. A repeat CAT scan of the abdomen has been ordered on 07/26/2017, the results of which are pending at this time and further course of his treatment for abdominal process will be decided after that. 2. History of CAD, ischemic cardiomyopathy, ventricular tachycardia status post defibrillator placement: Due to hypotension, patient's home medications were withheld. He continued to have a few PVCs during the course of his stay, but no antiarrhythmic was restarted for his nonsustained ventricular tachycardias. Of note, patient is on Tikosyn at home which was held in the ICU, and the plan was if he develops significant ventricular tachycardias, that he would be started on IV amiodarone drip. 3. Hyperglycemia: While the patient was in the ICU, given his overall condition , the fact that he was on octreotide drip (to manage the persistent leak from patch repair), continued pressor support, managing his blood sugars was challenging. An endocrinology evaluation was obtained, and the patient was started on insulin drip on 07/16/2017 for unknown DKA protocol. On 07/25/2017, patient's insulin drip was stopped. The patient continues to be on octreotide drip, which has been managed by the surgical team. 4. Acute kidney injury: On 07/10/2017, patient developed peritoneal signs as described above and his kidney function started to worsen, which was likely prerenal and IV contrast administered for the CAT scan acting as an additional insult. Over the course of his stay, patient's overall kidney function improved and has returned back to normal with his creatinine being 0.9 on 07/26/2017. Nephrology is following the patient. Patient's overall condition remains critical, his nephew Arpit Walls is aware. The patient continues to be full code. Patient has 2 WILLEM drains to self suction, is on tube feeds. Assessment/Plan: As above
--- NOTE | 2017-07-26 11:07 | PN- Infect Dx ---
Subjective Subjective: Afebrile on steroids. Recent events noted with worsening respiratory status requiring reintubation and hypotension requiring resumption of pressors. He was noted to have a mucous plug with yellow secretions reported. He does not report any specific complaints at this time. Objective Last 24 Hrs of Vital Signs/I&O Vital Signs Date Time Temp Pulse Resp B/P B/P Pulse O2 O2 Flow FiO2 Mean Ox Delivery Rate 07/26 1036 55 07/26 0825 60 07/26 0732 100 07/26 0400 96 Venti Mask 50% 07/26 0000 92 Nasal 4.0L Cannula 07/26 0000 97.3 70 24 96/50 94 Nasal 4.0L Cannula 07/25 2127 69 20 122/60 07/25 1824 91 Nasal 4.0L Cannula 07/25 1415 98.2 69 16 98/52 91 Nasal 4.0L Cannula 07/25 1200 93 Nasal 4.0L Cannula Intake & Output 07/26 1600 07/26 0800 07/26 0000 Intake Total 1047 910 Output Total 1450 1530 Balance -403 -620 Intake, IV 282 280 Intake, Oral 0 Intake, Tube 530 480 Feeding Intake, Tube 235 150 Irrigant Number 1 2 Bowel Movements Output, 525 300 Drainage Output, 200 Gastric Drainage Output, Urine 725 1230 Physical Exam Other Physical Findings: He is lethargic but responsive on the ventilator Lungs are clear Heart regular rhythm with no murmur Abdomen is obese, distended, with no obvious tenderness, positive bowel sounds; midline incision with packing in place, with purulent drainage expressed from the inferior aspect; WILLEM drains remain in place with significant output from both Extremities 1+ edema of all extremities; PICC in the right upper extremity with no inflammation at the site Duvall catheter remains in place Results Last 24 Hours of Lab Results: Laboratory Tests 07/26 07/26 07/26 07/26 0935 0915 0752 0720 Blood Gas pH (7.35 - 7.45 PH) 7.59 H 7.21 *L pCO2 (35 - 45 TORR) 30 L 80 *H pO2 (80 - 100 TORR) 88 46 *L HCO3 (21 - 28 MEQ/L) 28 32 H ABG O2 Sat (Measured) (>96.0 %) 97.0 63.0 L P-50 (Temp Corrected) N Carboxyhemoglobin (1.5 - 5.0 %) 0.7 L 0 L O2 Concentration % 60% 100% Temperature (97.0 - 100.0 FARH) 98.6 Respiration Rate (BPM) 26 O2 Delivery Method VENT AMBU BAG Vent Mode AC Expiratory Pressure (CMH2O/P) 5 Tidal Volume (CC) 600 Chemistry Lactic Acid (0.7 - 2.1 mmol/L) 1.9 Cancelled Miscellaneous Phlebotomy Draw Site LEFT RADIAL LEFT RADIAL 07/26 033 Chemistry Sodium (137 - 145 mmol/L) 145 Potassium (3.5 - 5.1 mmol/L) 4.3 Chloride (98 - 107 mmol/L) 106 Carbon Dioxide (22 - 30 mmol/L) 30 Anion Gap (5 - 16) 9 BUN (9 - 20 mg/dL) 34 H Creatinine (0.7 - 1.2 mg/dL) 0.9 Estimated GFR (>60 ml/min) > 60 Glucose (65 - 99 mg/dL) 150 H Calcium (8.4 - 10.2 mg/dL) 7.6 L Phosphorus (2.5 - 4.5 mg/dL) 4.5 Magnesium (1.6 - 2.3 mg/dL) 2.2 Total Bilirubin (0.2 - 1.3 mg/dL) 0.8 AST (17 - 59 U/L) 30 ALT (21 - 72 U/L) 49 Albumin (3.5 - 5.0 g/dL) 2.2 L Hematology CBC w Diff MAN DIFF ORDERED WBC (4.8 - 10.8 /CUMM) 14.2 H RBC (4.70 - 6.10 /CUMM) 3.59 L Hgb (14.0 - 18.0 G/DL) 10.3 L Hct (42 - 52 %) 31.9 L MCV (80.0 - 94.0 FL) 88.9 MCH (27.0 - 31.0 PG) 28.8 RDW (11.5 - 14.5 %) 18.9 H Plt Count (130 - 400 /CUMM) 307 MPV (7.4 - 10.4 FL) 8.8 Gran % (42.2 - 75.2 %) 66.6 Lymphocytes % (20.5 - 51.1 %) 24.8 Monocytes % (1.7 - 9.3 %) 8.0 Eosinophils % (0 - 5 %) 0.4 Basophils % (0.0 - 2.0 %) 0.2 Absolute Granulocytes (1.4 - 6.5 /CUMM) 9.5 H Segmented Neutrophils (42.2 - 75.2 %) 67 Band Neutrophils (0.0 - 5.0 %) 4 Absolute Lymphocytes (1.2 - 3.4 /CUMM) 3.5 H Lymphocytes (20.5 - 51.1 %) 21 Monocytes (1.7 - 9.3 %) 7 Absolute Monocytes (0.10 - 0.60 /CUMM) 1.1 H Eosinophils (0 - 5.0 %) 1 Absolute Eosinophils (0.0 - 0.7 /CUMM) 0.1 Absolute Basophils (0.0 - 0.2 /CUMM) 0 Platelet Estimate (ADEQUATE) ADEQUATE Polychromasia 1+ Hypochromic-Microcytic 1+ Poikilocytosis 2+ Basophilic Stippling 1+ Ovalocytes 1+ Stomatocytes 1+ PUBS MCHC (33.0 - 37.0 G/DL) 32.3 L Other Body Source Fld Total RBCs Counted (%) 100 Last 24 Hours of Les Results: No new cultures Recent Imaging Studies: Chest x-ray July 26, personally reviewed, reveals small bilateral effusions, right greater than left, with bibasilar atelectasis Assessment/Plan Impression: Deterioration in his status, requiring reintubation for worsening of his respiratory status and resumption of pressors for hypotension, presumably secondary to the ongoing enteric leak despite the duodenal repair 2 for a perforated duodenal ulcer, now 17 days status post his initial surgery for repair of the ulcer and 11 days status post return to the OR for peritonitis secondary to an uncontrolled leak. He remains afebrile with a mild leukocytosis on Daptomycin Day 6 and Meropenem Day 10, with the OR culture positive for VRE and Enterobacter. His leukocytosis could be secondary to the ongoing leak versus a collection versus steroids, and he is scheduled for a CT of the abdomen and pelvis later today. Suggestion: 1. Await CT of the abdomen and pelvis 2. Repeat sputum culture 3. Continue Daptomycin and Meropenem
--- NOTE | 2017-07-26 12:27 | CT SCAN REPORT ---
EXAMINATION: CT CHEST, ABDOMEN AND PELVIS WITHOUT CONTRAST CLINICAL INFORMATION: Intubated patient. Confirm ET tube placement. Pain in the abdomen. Hypotension. Free fluid collection status post duodenal perforation repair x 2. COMPARISON: Chest x-ray dated 07/26/2017. CT scan of the abdomen and pelvis dated 07/20/2017, 07/15/2017, 07/12/2017. CT scan of the chest, abdomen and pelvis dated 07/09/2017. TECHNIQUE: Multidetector CT helical images of the chest, abdomen and pelvis were performed noncontrast. The data set was reformatted in the coronal and sagittal planes and reviewed on an independent workstation. DLP: 1969.17 mGy-cm. FINDINGS: CHEST: LUNGS: Endotracheal tube is in place with tip 3.7 cm above the kika. Bilateral moderate pleural effusions are seen layering posteriorly up to the lung apex. There is complete collapse and consolidation of the left lower lobe with associated air bronchograms. Near complete collapse and consolidation in the right lower lobe is seen with some aeration remaining in the anterior basal segments. Right lower lobe air bronchograms are also seen. Mild dependent atelectatic changes are noted in the upper lobes. These findings are new when compared to the CT scan from 07/09/2017, but not significantly changed compared to included portions of the chest on CT abdomen from 07/20/2017. There is underlying mild centrilobular and paraseptal emphysema with patchy areas of air trapping seen in the aerated portions of the lungs. LYMPHOVASCULAR STRUCTURES: Right atrial pacer lead and right ventricular AICD lead are seen in place. A right subclavian PICC line place with tip in the mid SVC. Aortic size is normal. Moderate atherosclerotic calcifications of the aorta and great vessels noted. Severe three-vessel coronary artery calcifications seen. The patient is status post median sternotomy and CABG surgery. The heart is enlarged with primarily left ventricular enlargement seen. No pericardial effusion is seen. No significant mediastinal, hilar or axillary adenopathy is present. THYROID GLAND: Unremarkable to the extent seen. CHEST WALL: Bilateral retroareolar density is noted, similar to prior exams, consistent with gynecomastia. BONES: The patient is status post median sternotomy. Moderate vertebral spondylosis is seen in the mid and lower thoracic spine. Osteopenia is noted. No suspicious focal finding. ABDOMEN AND PELVIS: LIVER, GALLBLADDER, BILIARY TREE: Liver normal size and attenuation. No focal cystic or solid mass or intra-or extrahepatic ductal dilatation. The gallbladder partially distended and within normal limits. PANCREAS: Normal. No ductal dilatation, mass, or surrounding stranding. SPLEEN: Normal size and appearance. ADRENAL GLANDS AND KIDNEYS: Adrenal glands normal. Kidneys bilaterally symmetric in size and function. There are bilateral nonobstructing renal calcifications, with the largest in the right kidney being in the lower pole and measuring 1.2 cm in size. Largest calcifications in the left kidney are seen in the left renal pelvis and extending into the lower pole, measuring up to 0.7 cm in diameter. These calcifications have mean attenuation values measuring up to 747 Hounsfield units, consistent with densely calcified stones and are similar to prior studies. No hydronephrosis or perinephric stranding. There are bilateral incompletely characterized cystic masses in the kidneys, largest of which is a parapelvic right mid renal cystic mass, measuring 4.6 x 4.2 cm in size with slightly thickened rim and suspicion of internal thin septations. There is also likely a small mural calcification seen along the posterior margin. This is similar to several of the recent prior CT scans and smaller when compared to 6.0 x 5.1 cm on 10/21/2014. There are also complex appearing cystic masses in the left kidney upper pole and interpolar region, similar to prior exams. URETERS AND BLADDER: Ureters decompressed and within normal limits. Bladder partially distended and unremarkable. Small amount of air within the bladder lumen is consistent with Duvall catheter placement. PELVIC VISCERA: Unremarkable. BOWEL LOOPS: Enteric tube is in place with tip in the gastric antrum. Scattered colonic diverticulosis is seen with no evidence of acute diverticulitis. The cecum is mobile and is located in the right mid flank. Appendix is not discretely identified. There is a small volume of ascites in the abdomen and pelvis and diffuse mesenteric edema and stranding is seen in the right side of the abdomen and in the omentum. 2 right-sided soft tissue drains are seen extending from the right mid abdomen. Small bowel loops are decompressed and unremarkable. ABDOMINAL WALL: Abdominal wall is incompletely included and somewhat suboptimally assessed especially along the left side of the abdomen due to contact artifact with the CT gantry given the patient's large body habitus. Mild anasarca is noted in the soft tissues. Midline cutaneous dagoberto seen in place. LYMPHOVASCULAR STRUCTURES: Abdominal aorta normal in caliber with severe atherosclerotic calcifications of the mid and distal aorta and bifurcation seen. No periaortic collections. No abdominal or pelvic adenopathy or free fluid collection. BONES: Total right hip arthroplasty is in place and appears unremarkable to the extent included. Moderate degenerative disc disease and mild facet arthropathy seen throughout the lumbar spine. Mild convex left lumbar scoliosis is seen. IMPRESSION: 1. Endotracheal tube 3.7 cm above the kika. Enteric tube tip in the gastric antrum. Right subclavian PICC line in mid SVC. 2. No significant change in bilateral moderate size pleural effusions and associated complete collapse of left lower lobe and near complete collapse of right lower lobe compared to recent prior exams. 3. Underlying obstructive lung disease is noted 4. Severe three-vessel coronary artery calcifications with changes of prior CABG surgery. 5. Bilateral nonobstructing renal calculi, consistent with densely calcified calcium phosphate stones. Some of the left renal calcifications in the pelvis are nearly contiguous with each other and may be developing into a staghorn type calculus. 6. Bilateral complex appearing cystic renal masses, unchanged from prior studies. Right parapelvic complex cystic mass is smaller compared to remote exam from 10/21/2014. 7. Small volume of ascites in the abdomen and pelvis with 2 right-sided mid abdominal drains seen in place.
[2017-07-26 16:00] VITALS: BP 110/56
[2017-07-27] VITALS: BP 115/50
[2017-07-27 05:21] LABS: ABSOLUTE BASOPHIL COUNT 0 /CUMM (0.0-0.2); ABSOLUTE EOSINOPHIL COUNT 0 /CUMM (0.0-0.7); ABSOLUTE GRANULOCYTE CT 6.3 /CUMM (1.4-6.5); ABSOLUTE LYMPH COUNT 3.2 /CUMM (1.2-3.4); ABSOLUTE MONOCYTE COUNT 0.8 /CUMM (0.10-0.60); BASOPHIL % 0.2 % (0.0-2.0); EOSINOPHIL % 0.4 % (0-5); GRANULOCYTE % 61.3 % (42.2-75.2); HEMATOCRIT 28.6 % (42-52); MEAN CORPUSCULAR HGB 28.5 PG (27.0-31.0); MEAN CORPUSCULAR HGB CONC 32.3 G/DL (33.0-37.0); MEAN CORPUSCULAR VOLUME 88.2 FL (80.0-94.0); MEAN PLATELET VOLUME 8.7 FL (7.4-10.4); PLATELET COUNT 233 /CUMM (130-400); RBC DISTRIBUTION WIDTH 19.2 % (11.5-14.5); RED BLOOD CELL CT 3.24 /CUMM (4.70-6.10); WHITE BLOOD CELL COUNT 10.3 /CUMM (4.8-10.8)
--- NOTE | 2017-07-27 05:59 | PN- General Surgery ---
See Addendum Subjective Subjective: Reintubated yesterday, currently off pressors. Awake and responsive Objective Vital Signs and I&Os Vital Signs Date Time Temp Pulse Resp B/P B/P Pulse O2 O2 Flow FiO2 Mean Ox Delivery Rate 07/27 0402 55 07/27 0400 95 Ventilator 55% 07/27 0109 55 07/27 0000 97.9 69 21 115/50 94 Ventilator 55% 07/27 0000 94 Ventilator 55% 07/26 2221 71 24 96/63 07/26 2214 55 07/26 2000 94 Nasal 55% Cannula 07/26 1614 55 07/26 1600 93 Ventilator 55% 07/26 1600 98.9 69 16 110/56 93 Ventilator 55% 07/26 1414 55 07/26 1200 95 Ventilator 55% 07/26 1036 55 07/26 0825 60 07/26 0800 99.2 73 24 86/60 99 Ventilator 100% 07/26 0800 99 Ventilator 100% 07/26 0732 100 07/26 0730 90/50 Intake & Output 07/27 0800 07/27 0000 07/26 1600 07/26 0800 07/26 0000 07/25 1600 Intake Total 303 636 2643 910 925 Output Total 2521 994 6799 1530 1250 Balance -335 24 -403 -620 -325 Intake, IV 300 447 282 280 349 Intake, Oral 0 Intake, Other 60 Intake, Tube 480 387 530 480 491 Feeding Intake, Tube 55 235 150 85 Irrigant Number 1 1 2 Bowel Movements Output, 175 415 525 300 Drainage Output, 200 Gastric Drainage Output, Stool 50 Output, Urine 1000 911 882 4510 1200 Physical Exam: jp1:40 jp2:200 NGT: 200 BM:2 Urine:600 gen- nad card- s1s2 pulm- coarse thoughout anterior, intubated abd- soft, inferior aspect staple line open w purulent drainage, required changing due to saturation of dressing at 4am. currently with small amount of purulent drainage. JPs w thick fibrinous bilious drainage. ext- calves edematous, alps on Results Last 48 Hours of Labs: Laboratory Tests 07/27 07/27 0450 0410 Blood Gas pH (7.35 - 7.45 PH) 7.54 H pCO2 (35 - 45 TORR) 36 pO2 (80 - 100 TORR) 93 HCO3 (21 - 28 MEQ/L) 30 H ABG O2 Sat (Measured) (>96.0 %) 96.0 P-50 (Temp Corrected) Y Carboxyhemoglobin (1.5 - 5.0 %) 0.3 L O2 Concentration % 55% Temperature (97.0 - 100.0 FARH) 97.9 Respiration Rate (BPM) 14 O2 Delivery Method ESPRIT Vent Mode AC Expiratory Pressure (CMH2O/P) 5 Tidal Volume (CC) 500 Chemistry Sodium (137 - 145 mmol/L) 144 Potassium (3.5 - 5.1 mmol/L) 4.1 Chloride (98 - 107 mmol/L) 105 Carbon Dioxide (22 - 30 mmol/L) 31 H Anion Gap (5 - 16) 9 BUN (9 - 20 mg/dL) 34 H Creatinine (0.7 - 1.2 mg/dL) 1.0 Estimated GFR (>60 ml/min) > 60 Glucose (65 - 99 mg/dL) 169 H Calcium (8.4 - 10.2 mg/dL) 7.6 L Phosphorus (2.5 - 4.5 mg/dL) 3.8 Magnesium (1.6 - 2.3 mg/dL) 2.1 Total Bilirubin (0.2 - 1.3 mg/dL) 0.6 AST (17 - 59 U/L) 20 ALT (21 - 72 U/L) 35 Albumin (3.5 - 5.0 g/dL) 2.0 L Hematology CBC w Diff MAN DIFF ORDERED WBC (4.8 - 10.8 /CUMM) 10.3 RBC (4.70 - 6.10 /CUMM) 3.24 L Hgb (14.0 - 18.0 G/DL) 9.2 L Hct (42 - 52 %) 28.6 L MCV (80.0 - 94.0 FL) 88.2 MCH (27.0 - 31.0 PG) 28.5 RDW (11.5 - 14.5 %) 19.2 H Plt Count (130 - 400 /CUMM) 233 MPV (7.4 - 10.4 FL) 8.7 Gran % (42.2 - 75.2 %) 61.3 Lymphocytes % (20.5 - 51.1 %) 30.8 Monocytes % (1.7 - 9.3 %) 7.3 Eosinophils % (0 - 5 %) 0.4 Basophils % (0.0 - 2.0 %) 0.2 Absolute Granulocytes (1.4 - 6.5 /CUMM) 6.3 Segmented Neutrophils (42.2 - 75.2 %) 62 Band Neutrophils (0.0 - 5.0 %) 9 H Absolute Lymphocytes (1.2 - 3.4 /CUMM) 3.2 Lymphocytes (20.5 - 51.1 %) 23 Monocytes (1.7 - 9.3 %) 6 Absolute Monocytes (0.10 - 0.60 /CUMM) 0.8 H Absolute Eosinophils (0.0 - 0.7 /CUMM) 0 Absolute Basophils (0.0 - 0.2 /CUMM) 0 Nucleated RBCs (0.0 - 0.0 /100WBC) 1 H Platelet Estimate (ADEQUATE) ADEQUATE Polychromasia 1+ Poikilocytosis 1+ Anisocytosis 1+ Stomatocytes 1+ PUBS MCHC (33.0 - 37.0 G/DL) 32.3 L Miscellaneous Phlebotomy Draw Site LEFT RADIAL 07/26 07/26 07/26 07/26 1450 0935 0915 0752 Blood Gas pH (7.35 - 7.45 PH) 7.50 H 7.59 H pCO2 (35 - 45 TORR) 44 30 L pO2 (80 - 100 TORR) 96 88 HCO3 (21 - 28 MEQ/L) 33 H 28 ABG O2 Sat (Measured) (>96.0 %) 97.0 97.0 Carboxyhemoglobin (1.5 - 5.0 %) 0.3 L 0.7 L O2 Concentration % 55% 60% Respiration Rate (BPM) 14 26 O2 Delivery Method VENT VENT Vent Mode VC/AC AC Expiratory Pressure (CMH2O/P) 5 5 Tidal Volume (CC) 500 600 Chemistry Lactic Acid (0.7 - 2.1 mmol/L) 1.9 Cancelled Miscellaneous Phlebotomy Draw Site LEFT RADIAL LEFT RADIAL 07/26 07/26 0720 0337 Blood Gas pH (7.35 - 7.45 PH) 7.21 *L pCO2 (35 - 45 TORR) 80 *H pO2 (80 - 100 TORR) 46 *L HCO3 (21 - 28 MEQ/L) 32 H ABG O2 Sat (Measured) (>96.0 %) 63.0 L P-50 (Temp Corrected) N Carboxyhemoglobin (1.5 - 5.0 %) 0 L O2 Concentration % 100% Temperature (97.0 - 100.0 FARH) 98.6 O2 Delivery Method AMBU BAG Chemistry Sodium (137 - 145 mmol/L) 145 Potassium (3.5 - 5.1 mmol/L) 4.3 Chloride (98 - 107 mmol/L) 106 Carbon Dioxide (22 - 30 mmol/L) 30 Anion Gap (5 - 16) 9 BUN (9 - 20 mg/dL) 34 H Creatinine (0.7 - 1.2 mg/dL) 0.9 Estimated GFR (>60 ml/min) > 60 Glucose (65 - 99 mg/dL) 150 H Calcium (8.4 - 10.2 mg/dL) 7.6 L Phosphorus (2.5 - 4.5 mg/dL) 4.5 Magnesium (1.6 - 2.3 mg/dL) 2.2 Total Bilirubin (0.2 - 1.3 mg/dL) 0.8 AST (17 - 59 U/L) 30 ALT (21 - 72 U/L) 49 Albumin (3.5 - 5.0 g/dL) 2.2 L Hematology CBC w Diff MAN DIFF ORDERED WBC (4.8 - 10.8 /CUMM) 14.2 H RBC (4.70 - 6.10 /CUMM) 3.59 L Hgb (14.0 - 18.0 G/DL) 10.3 L Hct (42 - 52 %) 31.9 L MCV (80.0 - 94.0 FL) 88.9 MCH (27.0 - 31.0 PG) 28.8 RDW (11.5 - 14.5 %) 18.9 H Plt Count (130 - 400 /CUMM) 307 MPV (7.4 - 10.4 FL) 8.8 Gran % (42.2 - 75.2 %) 66.6 Lymphocytes % (20.5 - 51.1 %) 24.8 Monocytes % (1.7 - 9.3 %) 8.0 Eosinophils % (0 - 5 %) 0.4 Basophils % (0.0 - 2.0 %) 0.2 Absolute Granulocytes (1.4 - 6.5 /CUMM) 9.5 H Segmented Neutrophils (42.2 - 75.2 %) 67 Band Neutrophils (0.0 - 5.0 %) 4 Absolute Lymphocytes (1.2 - 3.4 /CUMM) 3.5 H Lymphocytes (20.5 - 51.1 %) 21 Monocytes (1.7 - 9.3 %) 7 Absolute Monocytes (0.10 - 0.60 /CUMM) 1.1 H Eosinophils (0 - 5.0 %) 1 Absolute Eosinophils (0.0 - 0.7 /CUMM) 0.1 Absolute Basophils (0.0 - 0.2 /CUMM) 0 Platelet Estimate (ADEQUATE) ADEQUATE Polychromasia 1+ Hypochromic-Microcytic 1+ Poikilocytosis 2+ Basophilic Stippling 1+ Ovalocytes 1+ Stomatocytes 1+ PUBS MCHC (33.0 - 37.0 G/DL) 32.3 L Miscellaneous Phlebotomy Draw Site LEFT RADIAL Other Body Source Fld Total RBCs Counted (%) 100 Assessment/Plan Assessment/Plan A- POD11 sp exlap with primary re-repair and tono patch of perf duo ulcer, POD18 sp initial exlap with tono patch repair of perf duo ulcer, continues to be in ICU, intubated, tolerating tube feeds, no longer requiring pressor support, with wound infection with purulent drainage, with continued bilious output of drain. P- jps to self suction cont tf, npo midline wound- draining well, daily changes and prn. abx per id monitor bowel fxn medical mgmt per primary team no plan for return to OR at this time CT scan abdomen and pelvis w/o contrast to evaluate for persistant intra abdominal collection when pt is more stable. not urgent
--- NOTE | 2017-07-27 07:22 | PN- Resident CRCU ---
Subjective HPI/CRCU Issues: Mr. Walls remains intubated and sedated with fentanyl running at 18.8 mcg/ml, was increased because of tachypnea overnight from 12.5 mcg/ml. Patient respond to verbal stimuli, opening eyes and answering questions by nodding his head. Denied any pain. Not agitated. Levophid is off since yesterday 11 AM Continue octreotide drip 25ml/hr 24 Hour Events: Temperature 97.9, MAXIMUM TEMPERATURE 99.2 Blood pressure lowest 78/56, highest 163/90, levophid is off since 11 AM in Heart rate lowest 68, highest 73 paced Endotracheal Intubation AC 500/14/55/5 Chest x-ray in a.m. ET tube 5.5 cm above the kika and has been retracted. No change in a pacer electrode and cardiomegaly. There is mild haziness in both lung bases. It is unchanged. ABG 7.5/36/93/30 Intake/output 2514/2980 Tube feed Running at 60 mL/h Objective Vital Signs & I&O Last 8 Hrs of Vitals and I&O: see above Exam General Appearance: awake, comfortable, sedated, intubated, obese Head: atraumatic, normal appearance Ears, Nose, Throat: normal pharynx, normal ENT inspection Neck: normal inspection Respiratory: normal breath sounds, chest non-tender Cardiovascular: regular rate/rhythm Gastrointestinal: normal bowel sounds, distention, Central vertical surgical scar, dagoberto, no erythema. Inferior aspect open with pirulent drainage. JPs with green bilious discharge. Extremities: normal capillary refill, pedal edema, R>L foot pedal edema Cranial Nerves: PERRL Current Medications: Current Medications Sig/Buck Start time Last Medication Dose Route Stop Time Status Admin Acetaminophen 1,000 MG Q6P PRN 07/16 0530 AC 07/20 N/A 1 UNIT IV 0659 Acetylcysteine 2 ML BID 07/26 2200 AC 07/27 INH 0811 Albuterol Sulfate 3 ML EVERY 4 HRS/AWAKE 07/27 0800 AC 07/27 INH 1159 Albuterol Sulfate 3 ML BID 07/24 2200 DC 07/26 INH 1959 Budesonide/ 2 PUF BID 07/26 1056 AC 07/27 Formoterol Fumarate INH 0813 Carvedilol 3.125 MG BID 07/22 1000 AC 07/27 PO 0934 Daptomycin 500 MG Q24H 07/20 1130 07/27 Sodium Chloride 50 ML IV 1052 Fentanyl Citrate 1,000 MCG Q13H 07/27 1600 AC Dextrose/Water 250 ML IV Fentanyl Citrate 1,000 MCG Q20H 07/27 0300 AC 07/27 Dextrose/Water 250 ML IV 07/27 1559 0915 Fentanyl Citrate 1,000 MCG Q8H 07/26 1030 DC 07/26 Dextrose/Water 250 ML IV 07/27 0259 2351 Furosemide 20 MG 7:30 AM, & 4:30 PM 07/19 1630 DC 07/27 IV 0658 Hydrocortisone 50 MG Q12 07/25 1000 07/27 Sodium Succinate IV 0922 Insulin Aspart 0 Q4 07/25 1000 07/27 SC 0935 Insulin Detemir 15 UNITS BID 07/25 1000 07/27 SC 0922 Meropenem 1 GM Q8H 07/20 1000 AC 07/27 IV 0921 Morphine Sulfate 2 MG Q4P PRN 07/14 1145 07/22 IV 1659 Norepinephrine 4 MG Q24H 07/27 1345 AC 07/27 Sodium Chloride 250 ML IV 1346 Norepinephrine 4 MG Q24H 07/26 0800 DC 07/26 Sodium Chloride 250 ML IV 0730 Octreotide Acetate 500 MCG Q20H 07/15 1400 07/27 Dextrose/Water 500 ML IV 0657 Pantoprazole Sodium 40 MG BID 07/10 1016 07/27 IV 0921 Phosphate 250 MG ONCE ONE 07/27 1330 DC PO 07/27 1331 Sodium Chloride 500 ML BOLUS ONE 07/27 1315 07/27 IV 07/27 1414 1310 Impression/Plan Impression/Problem List Impression: 76 year old gentleman PAF on Tikosyn, not on AC, 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 extubated, continues to be on tube feeds. #Endotracheal intubation - AC 500/14/55/5 - Chest x-ray in a.m. ET tube 5.5 cm above the kika and has been retracted. No change in a pacer electrode and cardiomegaly. There is mild haziness in both lung bases. It is unchanged - ABG 7.5/36/93/30 - Decrease FiO2 to 40 in a state of 50 - Obtain chest x-ray and ABG in a.m #Septic shock - 2/2 peritonitis from perforated duodenal ulcer - Off Levophid - Continue Daptomycin and Meropenem. MAXIMUM TEMPERATURE 99.2, leukocytosis improved - Continue Hydrocortisone 50 mg Q8 #V. tach - F/u cardio recs - Continue Carvedilol 3.125 twice a day with holding parameters #Hx of PAF on Tikosyn - Curently in NSR, and rate controlled - Continue to hold tikosyn # Perforated duodenal ulcer s/p repair - Status post expiratory laparotomy and suture repair of duodenal ulcer with Fabrizio patch on 07/09 and 07/16--- no recommendation for further surgical intervention at the moment - Maintain octreotide drip for continuous drainage from WILLEM - IV Protonix 40mg BID - Continue daptomycin and meropenem, ID on board, body fluid culture 2 from the OR positive for vancomycin-resistant enterococcus -Respiratory culture from 07/18 positive for vancomycin-resistant enterococcus #USMAN - Resolved - Continue to montior UOP #Uncontrolled DM, secondary to Sepsis, pressors and octreotide - Continue Levemir 15 units twice a day - Novolog SS every 4 hours - Target Blood sugar 140 -180 - Continue following endocrine recommendation - DVT prophylaxis ALPS - Diet Continue on J tube feeding, rate increased to 75 today - Code Status Full Code Consultation ID, surgery, cardiology, nephrology, endocrinology IV access PICC line right arm Problem List: 1. Diabetes mellitus 2. Hypotension 3. Sepsis Pain Ratin Tomorrow's Labs & Rationales: CBC ICU bundle CXR ABG Plan DVT/Prophylaxis: mechanical, pharmacological
[2017-07-27 08:00] VITALS: BP 120/60
--- NOTE | 2017-07-27 08:07 | PN- Diabetes ---
Assessment/Plan Assessment: 76-year-old male with Hx of CAD with low ejection fraction, atrial fibrillation, AICD, previous infection of hip with prolonged antibiotic, history of peptic ulcer disease, diabetes and renal stone, was admitted for perforation of duodenum now with septic shock in ICU. He was on 3 pressors, TPN, octreotide drip and bicarb drip. His BP remained low and stress dose of steroid was initiated despite his am cortisol was 24.8. His glucose level was in the 300s. Insulin drip was initiated. TPN was discontinued. He is on tube feeding with Vital 60 mL per hour. Patient was placed on Levemir 15 units twice a day and Novolog coverage every 4 hours on 07/25/2017. His blood sugars were 237, 160, 199 and 155. Patient is still on hydrocortisone 50 mg IV every 12 hours and octreotide drip. Patient was re-intubated on 07/26/2017. Plan: continue the current hydrocortisone 50 mg iv every 12 hours; continue the current insulin regimen for now; monitor FSGs. will follow. Subjective Subjective: Patient is intubated. Objective Last 24 Hrs of Vital Signs/I&O Vital Signs Date Time Temp Pulse Resp B/P B/P Pulse O2 O2 Flow FiO2 Mean Ox Delivery Rate 07/27 0623 55 07/27 0402 55 07/27 0400 95 Ventilator 55% 07/27 0109 55 07/27 0000 97.9 69 21 115/50 94 Ventilator 55% 07/27 0000 94 Ventilator 55% 07/26 2221 71 24 96/63 07/26 2214 55 07/26 2000 94 Nasal 55% Cannula 07/26 1614 55 07/26 1600 93 Ventilator 55% 07/26 1600 98.9 69 16 110/56 93 Ventilator 55% 07/26 1414 55 07/26 1200 95 Ventilator 55% 07/26 1036 55 07/26 0825 60 Intake & Output 07/27 1600 07/27 0800 07/27 0000 Intake Total 785 840 Output Total 940 1175 Balance -155 -335 Intake, IV 375 300 Intake, Other 60 Intake, Tube 350 480 Feeding Intake, Tube 60 Irrigant Number 1 Bowel Movements Output, 240 175 Drainage Output, 100 Gastric Drainage Output, Urine 600 1000 Findings Pertinent Lab/Les Results: Laboratory Tests 07/27 07/27 0450 0410 Blood Gas pH (7.35 - 7.45 PH) 7.54 H pCO2 (35 - 45 TORR) 36 pO2 (80 - 100 TORR) 93 HCO3 (21 - 28 MEQ/L) 30 H ABG O2 Sat (Measured) (>96.0 %) 96.0 P-50 (Temp Corrected) Y Carboxyhemoglobin (1.5 - 5.0 %) 0.3 L O2 Concentration % 55% Temperature (97.0 - 100.0 FARH) 97.9 Respiration Rate (BPM) 14 O2 Delivery Method ESPRIT Vent Mode AC Expiratory Pressure (CMH2O/P) 5 Tidal Volume (CC) 500 Chemistry Sodium (137 - 145 mmol/L) 144 Potassium (3.5 - 5.1 mmol/L) 4.1 Chloride (98 - 107 mmol/L) 105 Carbon Dioxide (22 - 30 mmol/L) 31 H Anion Gap (5 - 16) 9 BUN (9 - 20 mg/dL) 34 H Creatinine (0.7 - 1.2 mg/dL) 1.0 Estimated GFR (>60 ml/min) > 60 Glucose (65 - 99 mg/dL) 169 H Calcium (8.4 - 10.2 mg/dL) 7.6 L Phosphorus (2.5 - 4.5 mg/dL) 3.8 Magnesium (1.6 - 2.3 mg/dL) 2.1 Total Bilirubin (0.2 - 1.3 mg/dL) 0.6 AST (17 - 59 U/L) 20 ALT (21 - 72 U/L) 35 Albumin (3.5 - 5.0 g/dL) 2.0 L Hematology CBC w Diff MAN DIFF ORDERED WBC (4.8 - 10.8 /CUMM) 10.3 RBC (4.70 - 6.10 /CUMM) 3.24 L Hgb (14.0 - 18.0 G/DL) 9.2 L Hct (42 - 52 %) 28.6 L MCV (80.0 - 94.0 FL) 88.2 MCH (27.0 - 31.0 PG) 28.5 RDW (11.5 - 14.5 %) 19.2 H Plt Count (130 - 400 /CUMM) 233 MPV (7.4 - 10.4 FL) 8.7 Gran % (42.2 - 75.2 %) 61.3 Lymphocytes % (20.5 - 51.1 %) 30.8 Monocytes % (1.7 - 9.3 %) 7.3 Eosinophils % (0 - 5 %) 0.4 Basophils % (0.0 - 2.0 %) 0.2 Absolute Granulocytes (1.4 - 6.5 /CUMM) 6.3 Segmented Neutrophils (42.2 - 75.2 %) 62 Band Neutrophils (0.0 - 5.0 %) 9 H Absolute Lymphocytes (1.2 - 3.4 /CUMM) 3.2 Lymphocytes (20.5 - 51.1 %) 23 Monocytes (1.7 - 9.3 %) 6 Absolute Monocytes (0.10 - 0.60 /CUMM) 0.8 H Absolute Eosinophils (0.0 - 0.7 /CUMM) 0 Absolute Basophils (0.0 - 0.2 /CUMM) 0 Nucleated RBCs (0.0 - 0.0 /100WBC) 1 H Platelet Estimate (ADEQUATE) ADEQUATE Polychromasia 1+ Poikilocytosis 1+ Anisocytosis 1+ Stomatocytes 1+ PUBS MCHC (33.0 - 37.0 G/DL) 32.3 L Miscellaneous Phlebotomy Draw Site LEFT RADIAL 07/26 07/26 07/26 1450 0935 0915 Blood Gas pH (7.35 - 7.45 PH) 7.50 H 7.59 H pCO2 (35 - 45 TORR) 44 30 L pO2 (80 - 100 TORR) 96 88 HCO3 (21 - 28 MEQ/L) 33 H 28 ABG O2 Sat (Measured) (>96.0 %) 97.0 97.0 Carboxyhemoglobin (1.5 - 5.0 %) 0.3 L 0.7 L O2 Concentration % 55% 60% Respiration Rate (BPM) 14 26 O2 Delivery Method VENT VENT Vent Mode VC/AC AC Expiratory Pressure (CMH2O/P) 5 5 Tidal Volume (CC) 500 600 Chemistry Lactic Acid (0.7 - 2.1 mmol/L) 1.9 Miscellaneous Phlebotomy Draw Site LEFT RADIAL LEFT RADIAL
--- NOTE | 2017-07-27 09:27 | RADIOLOGY REPORT ---
EXAMINATION: XR PORTABLE CHEST CLINICAL INFORMATION: Confirm ET tube. COMPARISON: Chest x-ray 07/26/2017. TECHNIQUE: Portable frontal view of the chest was obtained. FINDINGS: The endotracheal tube tip is 5.5 cm above the kika. Pacer electrodes are in the right atrium and right ventricle. An enteric tube is noted below the diaphragm in the stomach. The lungs are expanded without any acute pneumonic process. However there is mild haziness in both lung bases. Heart size is borderline normal. No congestion seen. IMPRESSION: ET tube 5.5 cm above the kika and has been retracted. No change in a pacer electrode and cardiomegaly. There is mild haziness in both lung bases. It is unchanged.
--- NOTE | 2017-07-27 11:12 | PN- CRCU ---
Subjective HPI/Critical Care Issues: Patient seen and examined this morning. He has respiratory alkalosis and is overbreathing the vent. He appears comfortable and he is continuing to drain from his JPs and remains intubated this morning. Review of systems is difficult to ascertain however he is comfortable without any obvious pain. Objective Current Medications: Current Medications Sig/Buck Start time Last Medication Dose Route Stop Time Status Admin Acetaminophen 1,000 MG Q6P PRN 07/16 0530 AC 07/20 N/A 1 UNIT IV 0659 Acetylcysteine 2 ML BID 07/26 2200 AC 07/27 INH 0811 Albuterol Sulfate 3 ML EVERY 4 HRS/AWAKE 07/27 0800 AC 07/27 INH 0808 Albuterol Sulfate 3 ML BID 07/24 2200 DC 07/26 INH 1959 Budesonide/ 2 PUF BID 07/26 1056 AC 07/27 Formoterol Fumarate INH 0813 Carvedilol 3.125 MG BID 07/22 1000 AC 07/27 PO 0934 Daptomycin 500 MG Q24H 07/20 1130 AC 07/27 Sodium Chloride 50 ML IV 1052 Fentanyl Citrate 1,000 MCG Q13H 07/27 1600 AC Dextrose/Water 250 ML IV Fentanyl Citrate 1,000 MCG Q20H 07/27 0300 AC 07/27 Dextrose/Water 250 ML IV 07/27 1559 0915 Fentanyl Citrate 1,000 MCG Q8H 07/26 1030 DC 07/26 Dextrose/Water 250 ML IV 07/27 0259 2351 Furosemide 20 MG 7:30 AM, & 4:30 PM 07/19 1630 AC 07/27 IV 0658 Hydrocortisone 50 MG Q12 07/25 1000 AC 07/27 Sodium Succinate IV 0922 Insulin Aspart 0 Q4 07/25 1000 AC 07/27 SC 0935 Insulin Detemir 15 UNITS BID 07/25 1000 AC 07/27 SC 0922 Meropenem 1 GM Q8H 07/20 1000 AC 07/27 IV 0921 Morphine Sulfate 2 MG Q4P PRN 07/14 1145 AC 07/22 IV 1659 Norepinephrine 4 MG Q24H 07/26 0800 DC 07/26 Sodium Chloride 250 ML IV 0730 Octreotide Acetate 500 MCG Q20H 07/15 1400 AC 07/27 Dextrose/Water 500 ML IV 0657 Pantoprazole Sodium 40 MG BID 07/10 1016 AC 07/27 IV 0921 Vital Signs & I&O Last 24 Hrs of Vitals and I&O: Vital Signs Date Time Temp Pulse Resp B/P B/P Pulse O2 O2 Flow FiO2 Mean Ox Delivery Rate 07/27 0934 69 100/56 07/27 0816 55 07/27 0800 94 Ventilator 55% 07/27 0800 98.0 75 16 120/60 94 Ventilator 55% 07/27 0623 55 07/27 0402 55 07/27 0400 95 Ventilator 55% 07/27 0109 55 07/27 0000 97.9 69 21 115/50 94 Ventilator 55% 07/27 0000 94 Ventilator 55% 07/26 2221 71 24 96/63 07/26 2214 55 07/26 2000 94 Nasal 55% Cannula 07/26 1614 55 07/26 1600 93 Ventilator 55% 07/26 1600 98.9 69 16 110/56 93 Ventilator 55% 07/26 1414 55 07/26 1200 95 Ventilator 55% Intake & Output 07/27 1600 07/27 0800 07/27 0000 Intake Total 785 840 Output Total 940 1175 Balance -155 -335 Intake, IV 375 300 Intake, Other 60 Intake, Tube 350 480 Feeding Intake, Tube 60 Irrigant Number 1 Bowel Movements Output, 240 175 Drainage Output, 100 Gastric Drainage Output, Urine 600 1000 Exam Other Physical Findings: Gen - awake, however sedated HEENT - ETT CVS - S1, S2 Lungs - transmitted anterior chest sounds Abdomen - dressing intact, WILLEM drains with fluid, scrotal swelling Ext - right leg edema, no cyanosis Results Last 24 Hrs of Lab Results: Laboratory Tests 07/27/17 0450: pH 7.54 H, pCO2 36, pO2 93, HCO3 30 H, ABG O2 Sat (Measured) 96.0, P-50 (Temp Corrected) Y, Carboxyhemoglobin 0.3 L, O2 Concentration % 55%, Temperature 97.9 , Respiration Rate 14, O2 Delivery Method ESPRIT, Vent Mode AC, Expiratory Pressure 5, Tidal Volume 500, Phlebotomy Draw Site LEFT RADIAL 07/27/170: Anion Gap 9, Estimated GFR > 60, Glucose 169 H, Calcium 7.6 L, Phosphorus 3.8, Magnesium 2.1, Total Bilirubin 0.6, AST 20, ALT 35, Albumin 2.0 L, CBC w Diff MAN DIFF ORDERED, RBC 3.24 L, MCV 88.2, MCH 28.5, RDW 19.2 H, MPV 8.7, Gran % 61.3, Lymphocytes % 30.8, Monocytes % 7.3, Eosinophils % 0.4, Basophils % 0.2, Absolute Granulocytes 6.3, Segmented Neutrophils 62, Band Neutrophils 9 H, Absolute Lymphocytes 3.2, Lymphocytes 23, Monocytes 6, Absolute Monocytes 0.8 H , Absolute Eosinophils 0, Absolute Basophils 0, Nucleated RBCs 1 H, Platelet Estimate ADEQUATE, Polychromasia 1+, Poikilocytosis 1+, Anisocytosis 1+, Stomatocytes 1+, PUBS MCHC 32.3 L 07/26/17 1450: pH 7.50 H, pCO2 44, pO2 96, HCO3 33 H, ABG O2 Sat (Measured) 97.0, Carboxyhemoglobin 0.3 L, O2 Concentration % 55%, Respiration Rate 14, O2 Delivery Method VENT, Vent Mode VC/AC, Expiratory Pressure 5, Tidal Volume 500, Phlebotomy Draw Site LEFT RADIAL Impression/Plan Impression/Plan Impression/Plan: Impression 76-year-old man * hypoxemic respiratory failure likely secondary to mucous plugging * resolved septic shock * Hx of atrial flutter that is now controlled * He's also been on steroids for BP support for stress dosing. Plan Respiratory -reduced fio2 today -spontaneous breathing trials -no plan for extubation yet -if necessary will sedate -f/u cxr/abgs ID -f/u ID recs CVS -hemodynamically stable -off vasopressors -rate is controlled Heme -monitor cbc, coags Metabolic -ins/outs -monitor electrolytes Alimentary -TPN -octreotide gtt -f/u surgery Neuro -sedation as necessary Plan for ultrasound of LE to r/o clot given edema DVT prophylaxis at all times TTS 35 min
[2017-07-27 12:00] VITALS: BP 100/50
--- NOTE | 2017-07-27 12:10 | PN- Infect Dx ---
Subjective Subjective: Afebrile on steroids. He does not offer any complaints. Objective Last 24 Hrs of Vital Signs/I&O Vital Signs Date Time Temp Pulse Resp B/P B/P Pulse O2 O2 Flow FiO2 Mean Ox Delivery Rate 07/27 0934 69 100/56 07/27 0816 55 07/27 0800 94 Ventilator 55% 07/27 0800 98.0 75 16 120/60 94 Ventilator 55% 07/27 0623 55 07/27 0402 55 07/27 0400 95 Ventilator 55% 07/27 0109 55 07/27 0000 97.9 69 21 115/50 94 Ventilator 55% 07/27 0000 94 Ventilator 55% 07/26 2221 71 24 96/63 07/26 2214 55 07/26 2000 94 Nasal 55% Cannula 07/26 1614 55 07/26 1600 93 Ventilator 55% 07/26 1600 98.9 69 16 110/56 93 Ventilator 55% 07/26 1414 55 07/26 1200 95 Ventilator 55% Intake & Output 07/27 1600 07/27 0800 07/27 0000 Intake Total 785 840 Output Total 940 1175 Balance -155 -335 Intake, IV 375 300 Intake, Other 60 Intake, Tube 350 480 Feeding Intake, Tube 60 Irrigant Number 1 Bowel Movements Output, 240 175 Drainage Output, 100 Gastric Drainage Output, Urine 600 1000 Physical Exam Other Physical Findings: He is lethargic but arousable on the ventilator Lungs are clear Heart regular rhythm with no murmur Abdomen is mildly distended, nontender with positive bowel sounds; purulent appearing drainage persists from the inferior aspect of the incision; WILLEM drains remain in place with significant output from both drains Extremities 1+ edema all extremities; PICC in the right upper extremity with no inflammation at the site Duvall catheter remains in place Results Last 24 Hours of Lab Results: Laboratory Tests 07/27 07/27 0450 0410 Blood Gas pH (7.35 - 7.45 PH) 7.54 H pCO2 (35 - 45 TORR) 36 pO2 (80 - 100 TORR) 93 HCO3 (21 - 28 MEQ/L) 30 H ABG O2 Sat (Measured) (>96.0 %) 96.0 P-50 (Temp Corrected) Y Carboxyhemoglobin (1.5 - 5.0 %) 0.3 L O2 Concentration % 55% Temperature (97.0 - 100.0 FARH) 97.9 Respiration Rate (BPM) 14 O2 Delivery Method ESPRIT Vent Mode AC Expiratory Pressure (CMH2O/P) 5 Tidal Volume (CC) 500 Chemistry Sodium (137 - 145 mmol/L) 144 Potassium (3.5 - 5.1 mmol/L) 4.1 Chloride (98 - 107 mmol/L) 105 Carbon Dioxide (22 - 30 mmol/L) 31 H Anion Gap (5 - 16) 9 BUN (9 - 20 mg/dL) 34 H Creatinine (0.7 - 1.2 mg/dL) 1.0 Estimated GFR (>60 ml/min) > 60 Glucose (65 - 99 mg/dL) 169 H Calcium (8.4 - 10.2 mg/dL) 7.6 L Phosphorus (2.5 - 4.5 mg/dL) 3.8 Magnesium (1.6 - 2.3 mg/dL) 2.1 Total Bilirubin (0.2 - 1.3 mg/dL) 0.6 AST (17 - 59 U/L) 20 ALT (21 - 72 U/L) 35 Albumin (3.5 - 5.0 g/dL) 2.0 L Hematology CBC w Diff MAN DIFF ORDERED WBC (4.8 - 10.8 /CUMM) 10.3 RBC (4.70 - 6.10 /CUMM) 3.24 L Hgb (14.0 - 18.0 G/DL) 9.2 L Hct (42 - 52 %) 28.6 L MCV (80.0 - 94.0 FL) 88.2 MCH (27.0 - 31.0 PG) 28.5 RDW (11.5 - 14.5 %) 19.2 H Plt Count (130 - 400 /CUMM) 233 MPV (7.4 - 10.4 FL) 8.7 Gran % (42.2 - 75.2 %) 61.3 Lymphocytes % (20.5 - 51.1 %) 30.8 Monocytes % (1.7 - 9.3 %) 7.3 Eosinophils % (0 - 5 %) 0.4 Basophils % (0.0 - 2.0 %) 0.2 Absolute Granulocytes (1.4 - 6.5 /CUMM) 6.3 Segmented Neutrophils (42.2 - 75.2 %) 62 Band Neutrophils (0.0 - 5.0 %) 9 H Absolute Lymphocytes (1.2 - 3.4 /CUMM) 3.2 Lymphocytes (20.5 - 51.1 %) 23 Monocytes (1.7 - 9.3 %) 6 Absolute Monocytes (0.10 - 0.60 /CUMM) 0.8 H Absolute Eosinophils (0.0 - 0.7 /CUMM) 0 Absolute Basophils (0.0 - 0.2 /CUMM) 0 Nucleated RBCs (0.0 - 0.0 /100WBC) 1 H Platelet Estimate (ADEQUATE) ADEQUATE Polychromasia 1+ Poikilocytosis 1+ Anisocytosis 1+ Stomatocytes 1+ PUBS MCHC (33.0 - 37.0 G/DL) 32.3 L Miscellaneous Phlebotomy Draw Site LEFT RADIAL 07/26 1450 Blood Gas pH (7.35 - 7.45 PH) 7.50 H pCO2 (35 - 45 TORR) 44 pO2 (80 - 100 TORR) 96 HCO3 (21 - 28 MEQ/L) 33 H ABG O2 Sat (Measured) (>96.0 %) 97.0 Carboxyhemoglobin (1.5 - 5.0 %) 0.3 L O2 Concentration % 55% Respiration Rate (BPM) 14 O2 Delivery Method VENT Vent Mode VC/AC Expiratory Pressure (CMH2O/P) 5 Tidal Volume (CC) 500 Miscellaneous Phlebotomy Draw Site LEFT RADIAL Last 24 Hours of Les Results: Sputum culture July 26 mixed jose david Recent Imaging Studies: Chest x-ray July 27, personally reviewed, reveals mild haziness in both lung bases, unchanged from the previous study CT of the chest, abdomen and pelvis July 26 no change in the bilateral moderate-sized pleural effusions with associated complete collapse of the left lower lobe and near complete collapse of the right lower lobe; bilateral nonobstructing calculi; small volume of ascites, with no collection Assessment/Plan Impression: Condition remains poor, status post reintubation for worsening of his respiratory status yesterday, though his FiO2 has decreased and he is now off pressors. He remains afebrile (on steroids) with his white blood cell count now normal on Daptomycin Day 7 and Meropenem Day 11 for VRE and Enterobacter isolated from the OR cultures following a perforated duodenal ulcer 18 days ago, with his hospital course complicated by an ongoing enteric leak despite a return to the OR for a duodenal repair [address] scan of the abdomen and pelvis yesterday did not reveal any evidence of a collection, though he does have persistent drainage from the inferior aspect of his incision. Have discussed duration of antibiotics with Surgery and will plan to discontinue his antibiotics in the next 2-3 days. Suggestion: 1. Continue Daptomycin and Meropenem
--- NOTE | 2017-07-27 12:10 | ULTRASOUND REPORT ---
EXAMINATION: US TRIPLEX LOWER EXTREMITY, RIGHT CLINICAL INFORMATION: Swollen right leg COMPARISON: None TECHNIQUE: Color-flow triplex imaging with spectral analysis and compression Doppler were performed on the lower extremity. FINDINGS: Respiratory variation, normal compression and augmented flow are noted throughout the lower extremity. The visualized common femoral vein, superficial femoral vein, profunda femoral vein, popliteal vein and midcalf peroneal and posterior tibial venous segments show no evidence of deep venous thrombosis. There is no King's cyst. IMPRESSION: Normal triplex scan without evidence of deep venous thrombosis involving the lower extremity.
--- NOTE | 2017-07-27 14:29 | PN- Cardiology ---
Subjective Subjective: Remains intubated and sedated. Levophed discontinued earlier but had to be restarted for hypotension. Objective Vital Signs and I&Os Vital Signs Date Time Temp Pulse Resp B/P B/P Pulse O2 O2 Flow FiO2 Mean Ox Delivery Rate 07/27 1408 40 07/27 1346 69 81/39 07/27 1202 40 07/27 1200 96 Ventilator 40% 07/27 1200 97.9 78 20 100/50 96 Ventilator 40% 07/27 0934 69 100/56 07/27 0816 55 07/27 0800 94 Ventilator 55% 07/27 0800 98.0 75 16 120/60 94 Ventilator 55% 07/27 0623 55 07/27 0402 55 07/27 0400 95 Ventilator 55% 07/27 0109 55 07/27 0000 97.9 69 21 115/50 94 Ventilator 55% 07/27 0000 94 Ventilator 55% 07/26 2221 71 24 96/63 07/26 2214 55 07/26 2000 94 Nasal 55% Cannula 07/26 1614 55 07/26 1600 93 Ventilator 55% 07/26 1600 98.9 69 16 110/56 93 Ventilator 55% Intake & Output 07/27 1600 07/27 0800 07/27 0000 07/26 1600 07/26 0800 07/26 0000 Intake Total 785 588 122 0266 910 Output Total 940 3517 297 9249 1530 Balance -155 -335 24 -403 -620 Intake, IV 375 300 447 282 280 Intake, Oral 0 Intake, Other 60 Intake, Tube 350 480 387 530 480 Feeding Intake, Tube 60 55 235 150 Irrigant Number 1 1 1 2 Bowel Movements Output, 240 175 415 525 300 Drainage Output, 100 200 Gastric Drainage Output, Urine 600 1000 [phone] Physical Exam: Well-developed, morbidly obese elderly male who is intubated sedated. Neck: No JVD, no bruits. Lungs: Clear to auscultation anteriorly. Heart: S1, S2 with grade 2/6 systolic murmur. Abdomen: Soft, nontender, positive bowel sounds. Extremities: trace edema Current Medications: Current Medications Sig/Buck Start time Last Medication Dose Route Stop Time Status Admin Acetaminophen 1,000 MG Q6P PRN 07/16 0530 AC 07/20 N/A 1 UNIT IV 0659 Acetylcysteine 2 ML BID 07/26 2200 AC 07/27 INH 0811 Albuterol Sulfate 3 ML EVERY 4 HRS/AWAKE 07/27 0800 AC 07/27 INH 1159 Albuterol Sulfate 3 ML BID 07/24 2200 DC 07/26 INH 1959 Budesonide/ 2 PUF BID 07/26 1056 AC 07/27 Formoterol Fumarate INH 0813 Carvedilol 3.125 MG BID 07/22 1000 AC 07/27 PO 0934 Daptomycin 500 MG Q24H 07/20 1130 AC 07/27 Sodium Chloride 50 ML IV 1052 Fentanyl Citrate 1,000 MCG Q13H 07/27 1600 AC Dextrose/Water 250 ML IV Fentanyl Citrate 1,000 MCG Q20H 07/27 0300 AC 07/27 Dextrose/Water 250 ML IV 07/27 1559 0915 Fentanyl Citrate 1,000 MCG Q8H 07/26 1030 DC 07/26 Dextrose/Water 250 ML IV 07/27 0259 2351 Furosemide 20 MG 7:30 AM, & 4:30 PM 07/19 1630 DC 07/27 IV 0658 Hydrocortisone 50 MG Q12 07/25 1000 07/27 Sodium Succinate IV 0922 Insulin Aspart 0 Q4 07/25 1000 07/27 SC 0935 Insulin Detemir 15 UNITS BID 07/25 1000 07/27 SC 0922 Meropenem 1 GM Q8H 07/20 1000 07/27 IV 0921 Morphine Sulfate 2 MG Q4P PRN 07/14 1145 DC 07/22 IV 1659 Norepinephrine 4 MG Q24H 07/27 1345 AC 07/27 Sodium Chloride 250 ML IV 1346 Norepinephrine 4 MG Q24H 07/26 0800 DC 07/26 Sodium Chloride 250 ML IV 0730 Octreotide Acetate 500 MCG Q20H 07/15 1400 AC 07/27 Dextrose/Water 500 ML IV 0657 Pantoprazole Sodium 40 MG BID 07/10 1016 07/27 IV 0921 Phosphate 250 MG ONCE ONE 07/27 1330 DC PO 07/27 1331 Sodium Chloride 500 ML BOLUS ONE 07/27 1315 DC 07/27 IV 07/27 1414 1310 Results Last 48 Hrs of Labs/Mics: Laboratory Tests 07/27/17 0450: pH 7.54 H, pCO2 36, pO2 93, HCO3 30 H, ABG O2 Sat (Measured) 96.0, P-50 (Temp Corrected) Y, Carboxyhemoglobin 0.3 L, O2 Concentration % 55%, Temperature 97.9 , Respiration Rate 14, O2 Delivery Method ESPRIT, Vent Mode AC, Expiratory Pressure 5, Tidal Volume 500, Phlebotomy Draw Site LEFT RADIAL 07/27/17 0410: Anion Gap 9, Estimated GFR > 60, Glucose 169 H, Calcium 7.6 L, Phosphorus 3.8, Magnesium 2.1, Total Bilirubin 0.6, AST 20, ALT 35, Albumin 2.0 L, CBC w Diff MAN DIFF ORDERED, RBC 3.24 L, MCV 88.2, MCH 28.5, RDW 19.2 H, MPV 8.7, Gran % 61.3, Lymphocytes % 30.8, Monocytes % 7.3, Eosinophils % 0.4, Basophils % 0.2, Absolute Granulocytes 6.3, Segmented Neutrophils 62, Band Neutrophils 9 H, Absolute Lymphocytes 3.2, Lymphocytes 23, Monocytes 6, Absolute Monocytes 0.8 H , Absolute Eosinophils 0, Absolute Basophils 0, Nucleated RBCs 1 H, Platelet Estimate ADEQUATE, Polychromasia 1+, Poikilocytosis 1+, Anisocytosis 1+, Stomatocytes 1+, PUBS MCHC 32.3 L 07/26/17 1450: pH 7.50 H, pCO2 44, pO2 96, HCO3 33 H, ABG O2 Sat (Measured) 97.0, Carboxyhemoglobin 0.3 L, O2 Concentration % 55%, Respiration Rate 14, O2 Delivery Method VENT, Vent Mode VC/AC, Expiratory Pressure 5, Tidal Volume 500, Phlebotomy Draw Site LEFT RADIAL 07/26/17 0935: pH 7.59 H, pCO2 30 L, pO2 88, HCO3 28, ABG O2 Sat (Measured) 97.0, Carboxyhemoglobin 0.7 L, O2 Concentration % 60%, Respiration Rate 26, O2 Delivery Method VENT, Vent Mode AC, Expiratory Pressure 5, Tidal Volume 600, Phlebotomy Draw Site LEFT RADIAL 07/26/17 0915: Lactic Acid 1.9 07/26/17 0752: Lactic Acid Cancelled 07/26/17 0720: pH 7.21 *L, pCO2 80 *H, pO2 46 *L, HCO3 32 H, ABG O2 Sat (Measured) 63.0 L, P- 50 (Temp Corrected) N, Carboxyhemoglobin 0 L, O2 Concentration % 100%, Temperature 98.6, O2 Delivery Method AMBU BAG, Phlebotomy Draw Site LEFT RADIAL 07/26/17 0337: Anion Gap 9, Estimated GFR > 60, Glucose 150 H, Calcium 7.6 L, Phosphorus 4.5, Magnesium 2.2, Total Bilirubin 0.8, AST 30, ALT 49, Albumin 2.2 L, CBC w Diff MAN DIFF ORDERED, RBC 3.59 L, MCV 88.9, MCH 28.8, RDW 18.9 H, MPV 8.8, Gran % 66.6, Lymphocytes % 24.8, Monocytes % 8.0, Eosinophils % 0.4, Basophils % 0.2, Absolute Granulocytes 9.5 H, Segmented Neutrophils 67, Band Neutrophils 4, Absolute Lymphocytes 3.5 H, Lymphocytes 21, Monocytes 7, Absolute Monocytes 1.1 H, Eosinophils 1, Absolute Eosinophils 0.1, Absolute Basophils 0, Platelet Estimate ADEQUATE, Polychromasia 1+, Hypochromic-Microcytic 1+, Poikilocytosis 2 +, Basophilic Stippling 1+, Ovalocytes 1+, Stomatocytes 1+, PUBS MCHC 32.3 L, Fld Total RBCs Counted 100 Recent Imaging Studies: CXR (07/27/2017): ET tube 5.5 cm above the kika and has been retracted. No change in a pacer electrode and cardiomegaly. There is mild haziness in both lung bases. It is unchanged. Assessment/Plan Assessment/Plan 76-[id number]-o-[id number]-m w/ hx of morbid obesity, LIAM on CPAP, COPD, HTN, HLD, DM, CAD/ICM (s/ p IMI in 1998, CABG 4 w/ WHITE to LAD and individual SVGs to Dx, OM, PDA & MAZE) , and recurrent PAF who presented in an unkempt state via ambulance w/ UTI & subsequently had a perforation of a duodenal ulcer for which he underwent surgery (Fabrizio patch) on 07/09/2017 with worsening clinical status requiring return to the OR on 07/16/2017 for exploratory laparotomy and suture repair duodenal ulcer with Fabrizio patch. His electrocardiograms reveal properly functioning pacemaker rhythm with underlying atrial fibrillation, an indeterminate age inferior wall myocardial infarction on non-paced tracings, and on tracings from last Tuesday evidence of fusion beats in leads V4-V6, simulating an acute/recent anterolateral [place]. Recommendations: * Repeat ECG, when not pacing, to assess for "new" Q waves in leads V4-V6. * Carvedilol again on hold for hypotension with pressor support. * If further significant ventricular tachycardia can place on amiodarone. * Pacemaker functioning properly and should for months, even though near EOL. * Maintain potassium between 4.0-4.5 mEq per liter. * Replete magnesium and maintain at or above 2.0 mEq per liter. * Continue to follow-up on infectious disease, critical care, endocrine, renal and surgical recommendations. * Continue DVT prophylaxis. Continue telemetry? Not applicable (In ICU.)
--- NOTE | 2017-07-27 14:40 | PN- Cardiology ---
Subjective Subjective: Saw Mr. Walls on 07/26/17. Events over the weekend reviewed. Again required intubation for increased oxygen requirements and initiation of pressor support for hypotension. Objective Vital Signs and I&Os Vital Signs Date Time Temp Pulse Resp B/P B/P Pulse O2 O2 Flow FiO2 Mean Ox Delivery Rate 07/27 1408 40 07/27 1346 69 81/39 07/27 1202 40 07/27 1200 96 Ventilator 40% 07/27 1200 97.9 78 20 100/50 96 Ventilator 40% 07/27 0934 69 100/56 07/27 0816 55 07/27 0800 94 Ventilator 55% 07/27 0800 98.0 75 16 120/60 94 Ventilator 55% 07/27 0623 55 07/27 0402 55 07/27 0400 95 Ventilator 55% 07/27 0109 55 07/27 0000 97.9 69 21 115/50 94 Ventilator 55% 07/27 0000 94 Ventilator 55% 07/26 2221 71 24 96/63 07/26 2214 55 07/26 2000 94 Nasal 55% Cannula 07/26 1614 55 07/26 1600 93 Ventilator 55% 07/26 1600 98.9 69 16 110/56 93 Ventilator 55% Intake & Output 07/27 1600 07/27 0800 07/27 0000 07/26 1600 07/26 0800 07/26 0000 Intake Total 785 375 847 3738 910 Output Total 940 7583 014 7963 1530 Balance -155 -335 24 -403 -620 Intake, IV 375 300 447 282 280 Intake, Oral 0 Intake, Other 60 Intake, Tube 350 480 387 530 480 Feeding Intake, Tube 60 55 235 150 Irrigant Number 1 1 1 2 Bowel Movements Output, 240 175 415 525 300 Drainage Output, 100 200 Gastric Drainage Output, Urine 600 [phone] Physical Exam: Well-developed, morbidly obese elderly male who is intubated sedated. Neck: No JVD, no bruits. Lungs: Clear to auscultation anteriorly. Heart: S1, S2 with grade 2/6 systolic murmur. Abdomen: Soft, nontender, positive bowel sounds. Extremities: trace edema Current Medications: Current Medications Sig/Buck Start time Last Medication Dose Route Stop Time Status Admin Acetaminophen 1,000 MG Q6P PRN 07/16 0530 AC 07/20 N/A 1 UNIT IV 0659 Acetylcysteine 2 ML BID 07/26 2200 AC 07/27 INH 0811 Albuterol Sulfate 3 ML EVERY 4 HRS/AWAKE 07/27 0800 AC 07/27 INH 1159 Albuterol Sulfate 3 ML BID 07/24 2200 DC 07/26 INH 1959 Budesonide/ 2 PUF BID 07/26 1056 07/27 Formoterol Fumarate INH 0813 Carvedilol 3.125 MG BID 07/22 1000 AC 07/27 PO 0934 Daptomycin 500 MG Q24H 07/20 1130 07/27 Sodium Chloride 50 ML IV 1052 Fentanyl Citrate 1,000 MCG Q13H 07/27 1600 AC Dextrose/Water 250 ML IV Fentanyl Citrate 1,000 MCG Q20H 07/27 0300 07/27 Dextrose/Water 250 ML IV 07/27 1559 0915 Fentanyl Citrate 1,000 MCG Q8H 07/26 1030 DC 07/26 Dextrose/Water 250 ML IV 07/27 0259 2351 Furosemide 20 MG 7:30 AM, & 4:30 PM 07/19 1630 DC 07/27 IV 0658 Hydrocortisone 50 MG Q12 07/25 1000 07/27 Sodium Succinate IV 0922 Insulin Aspart 0 Q4 07/25 1000 07/27 SC 1431 Insulin Detemir 15 UNITS BID 07/25 1000 07/27 SC 0922 Meropenem 1 GM Q8H 07/20 1000 07/27 IV 0921 Morphine Sulfate 2 MG Q4P PRN 07/14 1145 DC 07/22 IV 1659 Norepinephrine 4 MG Q24H 07/27 1345 AC 07/27 Sodium Chloride 250 ML IV 1346 Norepinephrine 4 MG Q24H 07/26 0800 DC 07/26 Sodium Chloride 250 ML IV 0730 Octreotide Acetate 500 MCG Q20H 07/15 1400 AC 07/27 Dextrose/Water 500 ML IV 0657 Pantoprazole Sodium 40 MG BID 07/10 1016 07/27 IV 0921 Phosphate 250 MG ONCE ONE 07/27 1330 DC 07/27 PO 07/27 1331 1431 Sodium Chloride 500 ML BOLUS ONE 07/27 1315 DC 07/27 IV 07/27 1414 1310 Results Last 48 Hrs of Labs/Mics: Laboratory Tests 07/27/17 0450: pH 7.54 H, pCO2 36, pO2 93, HCO3 30 H, ABG O2 Sat (Measured) 96.0, P-50 (Temp Corrected) Y, Carboxyhemoglobin 0.3 L, O2 Concentration % 55%, Temperature 97.9 , Respiration Rate 14, O2 Delivery Method ESPRIT, Vent Mode AC, Expiratory Pressure 5, Tidal Volume 500, Phlebotomy Draw Site LEFT RADIAL 07/27/17 0410: Anion Gap 9, Estimated GFR > 60, Glucose 169 H, Calcium 7.6 L, Phosphorus 3.8, Magnesium 2.1, Total Bilirubin 0.6, AST 20, ALT 35, Albumin 2.0 L, CBC w Diff MAN DIFF ORDERED, RBC 3.24 L, MCV 88.2, MCH 28.5, RDW 19.2 H, MPV 8.7, Gran % 61.3, Lymphocytes % 30.8, Monocytes % 7.3, Eosinophils % 0.4, Basophils % 0.2, Absolute Granulocytes 6.3, Segmented Neutrophils 62, Band Neutrophils 9 H, Absolute Lymphocytes 3.2, Lymphocytes 23, Monocytes 6, Absolute Monocytes 0.8 H , Absolute Eosinophils 0, Absolute Basophils 0, Nucleated RBCs 1 H, Platelet Estimate ADEQUATE, Polychromasia 1+, Poikilocytosis 1+, Anisocytosis 1+, Stomatocytes 1+, PUBS MCHC 32.3 L 07/26/17 1450: pH 7.50 H, pCO2 44, pO2 96, HCO3 33 H, ABG O2 Sat (Measured) 97.0, Carboxyhemoglobin 0.3 L, O2 Concentration % 55%, Respiration Rate 14, O2 Delivery Method VENT, Vent Mode VC/AC, Expiratory Pressure 5, Tidal Volume 500, Phlebotomy Draw Site LEFT RADIAL 07/26/17 0935: pH 7.59 H, pCO2 30 L, pO2 88, HCO3 28, ABG O2 Sat (Measured) 97.0, Carboxyhemoglobin 0.7 L, O2 Concentration % 60%, Respiration Rate 26, O2 Delivery Method VENT, Vent Mode AC, Expiratory Pressure 5, Tidal Volume 600, Phlebotomy Draw Site LEFT RADIAL 07/26/17 0915: Lactic Acid 1.9 07/26/17 0752: Lactic Acid Cancelled 07/26/17 0720: pH 7.21 *L, pCO2 80 *H, pO2 46 *L, HCO3 32 H, ABG O2 Sat (Measured) 63.0 L, P- 50 (Temp Corrected) N, Carboxyhemoglobin 0 L, O2 Concentration % 100%, Temperature 98.6, O2 Delivery Method AMBU BAG, Phlebotomy Draw Site LEFT RADIAL 07/26/17 0337: Anion Gap 9, Estimated GFR > 60, Glucose 150 H, Calcium 7.6 L, Phosphorus 4.5, Magnesium 2.2, Total Bilirubin 0.8, AST 30, ALT 49, Albumin 2.2 L, CBC w Diff MAN DIFF ORDERED, RBC 3.59 L, MCV 88.9, MCH 28.8, RDW 18.9 H, MPV 8.8, Gran % 66.6, Lymphocytes % 24.8, Monocytes % 8.0, Eosinophils % 0.4, Basophils % 0.2, Absolute Granulocytes 9.5 H, Segmented Neutrophils 67, Band Neutrophils 4, Absolute Lymphocytes 3.5 H, Lymphocytes 21, Monocytes 7, Absolute Monocytes 1.1 H, Eosinophils 1, Absolute Eosinophils 0.1, Absolute Basophils 0, Platelet Estimate ADEQUATE, Polychromasia 1+, Hypochromic-Microcytic 1+, Poikilocytosis 2 +, Basophilic Stippling 1+, Ovalocytes 1+, Stomatocytes 1+, PUBS MCHC 32.3 L, Fld Total RBCs Counted 100 Recent Imaging Studies: CXR (07/26/2017): 1. Interval insertion of an endotracheal tube which appears somewhat low positioned although the kika is not well seen. Consider withdrawing it 1 to 2 cm. 2. Small bilateral pleural effusions and bibasilar atelectasis. 3. Stable cardiomegaly. CT chest/abdomen/pelvis (07/26/2017): 1. Endotracheal tube 3.7 cm above the kika. Enteric tube tip in the gastric antrum. Right subclavian PICC line in mid SVC. 2. No significant change in bilateral moderate size pleural effusions and associated complete collapse of left lower lobe and near complete collapse of right lower lobe compared to recent prior exams. 3. Underlying obstructive lung disease is noted 4. Severe three-vessel coronary artery calcifications with changes of prior CABG surgery. 5. Bilateral nonobstructing renal calculi, consistent with densely calcified calcium phosphate stones. Some of the left renal calcifications in the pelvis are nearly contiguous with each other and may be developing into a staghorn type calculus. 6. Bilateral complex appearing cystic renal masses, unchanged from prior studies. Right parapelvic complex cystic mass is smaller compared to remote exam from 10/21/2014. 7. Small volume of ascites in the abdomen and pelvis with 2 right-sided mid abdominal drains seen in place. Assessment/Plan Assessment/Plan 76-y-o-w-m w/ hx of morbid obesity, LAIM on CPAP, COPD, HTN, HLD, DM, CAD/ICM (s/ p IMI in 1998, CABG 4 w/ WHITE to LAD and individual SVGs to Dx, OM, PDA & MAZE) , and recurrent PAF who presented in an unkempt state via ambulance w/ UTI & subsequently had a perforation of a duodenal ulcer for which he underwent surgery (Fabrizio patch) on 07/09/2017 with worsening clinical status requiring return to the OR on 07/16/2017 for exploratory laparotomy and suture repair duodenal ulcer with Fabrizio patch. His electrocardiograms reveal properly functioning pacemaker rhythm with underlying atrial fibrillation, an indeterminate age inferior wall myocardial infarction on non-paced tracings, and on tracings from last Tuesday evidence of fusion beats in leads V4-V6, simulating an acute/recent anterolateral [place]. Recommendations: * Repeat ECG, when not pacing, to assess for "new" Q waves in leads V4-V6. * Carvedilol again on hold for hypotension with pressor support. * If further significant ventricular tachycardia can place on amiodarone. * Pacemaker functioning properly and should for months, even though near EOL. * Maintain potassium between 4.0-4.5 mEq per liter. * Replete magnesium and maintain at or above 2.0 mEq per liter. * Continue to follow-up on infectious disease, critical care, endocrine, renal and surgical recommendations. * Continue DVT prophylaxis. Continue telemetry? Not applicable (In ICU.)
[2017-07-27 16:00] VITALS: BP 120/58
[2017-07-28] VITALS: BP 133/57
[2017-07-28 05:14] LABS: ABSOLUTE BASOPHIL COUNT 0 /CUMM (0.0-0.2); ABSOLUTE EOSINOPHIL COUNT 0.1 /CUMM (0.0-0.7); ABSOLUTE GRANULOCYTE CT 5.7 /CUMM (1.4-6.5); ABSOLUTE LYMPH COUNT 3.3 /CUMM (1.2-3.4); BASOPHIL % 0.3 % (0.0-2.0); EOSINOPHIL % 1.5 % (0-5); GRANULOCYTE % 55.9 % (42.2-75.2); MEAN CORPUSCULAR HGB 28.7 PG (27.0-31.0); MEAN CORPUSCULAR HGB CONC 32.3 G/DL (33.0-37.0); MEAN CORPUSCULAR VOLUME 88.7 FL (80.0-94.0); MEAN PLATELET VOLUME 8.5 FL (7.4-10.4); PLATELET COUNT 231 /CUMM (130-400); RBC DISTRIBUTION WIDTH 19.3 % (11.5-14.5); RED BLOOD CELL CT 3.16 /CUMM (4.70-6.10); WHITE BLOOD CELL COUNT 10.2 /CUMM (4.8-10.8)
--- NOTE | 2017-07-28 07:15 | RADIOLOGY REPORT ---
EXAMINATION: XR PORTABLE CHEST CLINICAL INFORMATION: Intubated. Check ET tube position. COMPARISON: Previous chest x-rays most recent from yesterday TECHNIQUE: Portable frontal view of the chest was obtained. FINDINGS: The cardiac and mediastinal contours are stable. There are median sternotomy wires. There is a left subclavian pacemaker defibrillator device. There is an endotracheal tube with tip 5 cm above the kika. There is a nasogastric tube. The tip is not well seen. There is a right upper extremity PICC line with tip projecting over the SVC. There is loss of the left hemidiaphragm suggestive of left lower lobe atelectasis/consolidation. There is minimal atelectasis or consolidation at the right lung base. No significant pleural effusion is seen. There is no pneumothorax. IMPRESSION: Endotracheal tube 5 cm above the kika. Nasogastric tube tip not seen. Right upper extremity PICC line tip projects over SVC. Bibasilar atelectasis/consolidation, left greater than right.
[2017-07-28 08:00] VITALS: BP 128/66
--- NOTE | 2017-07-28 09:05 | PN- Resident CRCU ---
Subjective HPI/CRCU Issues: Patient was seen and examined this morning, intubated and sedated however he responds to verbal stimuli by opening eyes, responds appropriately to questions. Reports tenderness of the abdomen upon examination. 24 Hour Events: Temperature 97.9, MAXIMUM TEMPERATURE 98.6 Pulse lowest 68, highest 75 based Blood pressure lowest 76/44, highest 150/69 Respiratory rate 14 AC 500/14/35/5 ABG 7.56, 34, 62, 30 Endotracheal tube 5 cm above the kika. Nasogastric tube tip not seen. Right upper extremity PICC line tip projects over SVC. Bibasilar atelectasis/ consolidation, left greater than right. Intake 901, output 1000 Patient is getting octreotide drip at 25 and fentanyl drip at 12.5 Levophed was started yesterday at 1:45 pm and discontinued at 7:44 pm 8 beats of V. tach overnight Objective Vital Signs & I&O Last 8 Hrs of Vitals and I&O: Intake & Output 07/28 1600 Intake Total 1191 Output Total 1275 Balance -84 Intake, IV 405 Intake, Oral 0 Intake, Tube 586 Feeding Intake, Tube 200 Irrigant Number 0 Bowel Movements Output, 575 Drainage Output, 50 Gastric Drainage Output, Urine 650 Exam General Appearance: well developed/nourished, sedated, intubated Head: atraumatic, normal appearance Ears, Nose, Throat: normal pharynx, normal ENT inspection Neck: normal inspection Cardiovascular: regular rate/rhythm, edema Gastrointestinal: distended Diffuse tenderness central vertical lapratomy scar, erythema, stappled inferior aspect open with purulent discharge. JPs drains green fluid Extremities: normal inspection, pedal edema +1 right LE Pedal edema trace left LE Current Medications: Current Medications Sig/Buck Start time Last Medication Dose Route Stop Time Status Admin Acetaminophen 1,000 MG Q6P PRN 07/16 0530 AC 07/20 N/A 1 UNIT IV 0659 Acetylcysteine 2 ML BID 07/26 2200 AC 07/28 INH 0840 Albuterol Sulfate 3 ML EVERY 4 HRS/AWAKE 07/27 0800 AC 07/28 INH 1656 Budesonide/ 2 PUF BID 07/26 1056 AC 07/28 Formoterol Fumarate INH 0840 Carvedilol 3.125 MG BID 07/28 1000 AC 07/28 PO 1000 Carvedilol 3.125 MG BID 07/22 1000 DC 07/27 PO 0934 Daptomycin 500 MG Q24H 07/20 1130 AC 07/28 Sodium Chloride 50 ML IV 07/30 2300 1143 Fentanyl Citrate 1,000 MCG Q13H 07/27 1600 AC 07/27 Dextrose/Water 250 ML IV 2217 Hydrocortisone 50 MG Q12 07/25 1000 AC 07/28 Sodium Succinate IV 1001 Insulin Aspart 0 Q4 07/25 1000 AC 07/28 SC 1410 Insulin Detemir 15 UNITS BID 07/25 1000 AC 07/28 SC 1000 Magnesium Oxide 400 MG ONE ONE 07/28 1230 DC 07/28 PO 07/28 1231 1411 Meropenem 1 GM Q8H 07/20 1000 AC 07/28 IV 07/30 2300 1000 Norepinephrine 4 MG Q24H 07/27 1345 DC 07/27 Sodium Chloride 250 ML IV 1529 Octreotide Acetate 500 MCG Q20H 07/15 1400 AC 07/28 Dextrose/Water 500 ML IV 0207 Pantoprazole Sodium 40 MG BID 07/10 1016 AC 07/28 IV 1001 Phosphate 250 MG ONCE ONE 07/28 1230 DC 07/28 PO 07/28 1231 1411 Potassium Chloride 40 MEQ ONCE ONE 07/28 1230 DC 07/28 PO 07/28 1231 1411 Impression/Plan Impression/Problem List Impression: 76 year old gentleman PAF on Tikosyn, not on AC, 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 extubated, continues to be on tube feeds. #Endotracheal intubation - Obtain chest x-ray and ABG in a.m #Septic shock - 2/2 peritonitis from perforated duodenal ulcer - Off Levophid - Continue Daptomycin and Meropenem. Continue until 07/30 and continue off Abx - Continue Hydrocortisone 50 mg Q8 #V. tach - F/u cardio recs - Continue Carvedilol 3.125 twice a day with holding parameters #Hx of PAF on Tikosyn - Curently in NSR, and rate controlled - Continue to hold tikosyn # Perforated duodenal ulcer s/p repair - Status post expiratory laparotomy and suture repair of duodenal ulcer with Fabrizio patch on 07/09 and 07/16--- no recommendation for further surgical intervention at the moment - Maintain octreotide drip for continuous drainage from [facility] - IV Protonix 40mg BID - Continue daptomycin and meropenem, ID on board, body fluid culture 2 from the OR positive for vancomycin-resistant enterococcus -Respiratory culture from 07/18 positive for vancomycin-resistant enterococcus #USMAN - Resolved - Continue to montior UOP #Uncontrolled DM, secondary to Sepsis, pressors and octreotide - Continue Levemir 15 units twice a day - Novolog SS every 4 hours - Target Blood sugar 140 -180 - Continue following endocrine recommendation - DVT prophylaxis ALPS - Diet Continue on J tube feeding, rate 75 ml/h - Code Status Full Code Consultation ID, surgery, cardiology, nephrology, endocrinology IV access PICC line right arm Problem List: 1. Septic shock 2. Duodenal ulcer with perforation Pain Ratin Tomorrow's Labs & Rationales: CBC ICU bundle CXR ABG Plan DVT/Prophylaxis: mechanical, pharmacological
--- NOTE | 2017-07-28 09:12 | PN- Diabetes ---
Assessment/Plan Assessment: 76-year-old male with Hx of CAD with low ejection fraction, atrial fibrillation, AICD, previous infection of hip with prolonged antibiotic, history of peptic ulcer disease, diabetes and renal stone, was admitted for perforation of duodenum now with septic shock in ICU. He was on 3 pressors, TPN, octreotide drip and bicarb drip. His BP remained low and stress dose of steroid was initiated despite his am cortisol was 24.8. Patient is still on hydrocortisone 50 mg IV every 12 hours and octreotide drip. Patient was re-intubated on 07/26/2017. He has been off on TPN. Currently he is on tube feeding with Vital 75 mL per hour. Patient was placed on Levemir 15 units twice a day and Novolog coverage every 4 hours on 2016. His blood sugars were 197, 156 and 173. Plan: continue the current Hydrocortisone 50 mg iv every 12 hours; continue the current insulin regimen; monitor FSGs. will follow. Subjective Subjective: He remains intubated. Objective Last 24 Hrs of Vital Signs/I&O Vital Signs Date Time Temp Pulse Resp B/P B/P Pulse O2 O2 Flow FiO2 Mean Ox Delivery Rate 07/28 0800 92 Ventilator 35% 07/28 0800 98.1 69 19 128/66 92 Ventilator 35% 07/28 0557 35 07/28 0400 94 Ventilator 35% 07/28 0256 35 07/28 0000 98.6 71 14 133/57 94 Ventilator 35% 07/28 0000 94 Ventilator 35% 07/27 2218 35 07/27 2000 97 Ventilator 35% 07/27 1920 35 07/27 1620 40 07/27 1600 98.8 69 17 120/58 95 Ventilator 40% 07/27 1600 95 Ventilator 40% 07/27 1529 117/51 07/27 1408 40 07/27 1346 69 81/39 07/27 1202 40 07/27 1200 96 Ventilator 40% 07/27 1200 97.9 78 20 100/50 96 Ventilator 40% 07/27 0934 69 100/56 Intake & Output 07/28 1600 07/28 0800 07/28 0000 Intake Total 901 1024 Output Total 1000 1110 Balance -99 -86 Intake, IV 280 396 Intake, Tube 540 563 Feeding Intake, Tube 81 65 Irrigant Number 0 0 Bowel Movements Output, 550 610 Drainage Output, 0 100 Gastric Drainage Output, Urine 450 400 Findings Pertinent Lab/Les Results: Laboratory Tests 07/28 07/28 4038 7718 Blood Gas pH (7.35 - 7.45 PH) 7.56 H pCO2 (35 - 45 TORR) 34 L pO2 (80 - 100 TORR) 62 L HCO3 (21 - 28 MEQ/L) 30 H ABG O2 Sat (Measured) (>96.0 %) 91.0 L P-50 (Temp Corrected) Y Carboxyhemoglobin (1.5 - 5.0 %) 0.3 L O2 Concentration % 35% Temperature (97.0 - 100.0 FARH) 97.9 Respiration Rate (BPM) 14 O2 Delivery Method ESPRIT Vent Mode AC Expiratory Pressure (CMH2O/P) 5 Tidal Volume (CC) 500 Chemistry Sodium (137 - 145 mmol/L) 143 Potassium (3.5 - 5.1 mmol/L) 3.8 Chloride (98 - 107 mmol/L) 105 Carbon Dioxide (22 - 30 mmol/L) 30 Anion Gap (5 - 16) 7 BUN (9 - 20 mg/dL) 31 H Creatinine (0.7 - 1.2 mg/dL) 0.9 Estimated GFR (>60 ml/min) > 60 Glucose (65 - 99 mg/dL) 143 H Calcium (8.4 - 10.2 mg/dL) 7.5 L Phosphorus (2.5 - 4.5 mg/dL) 3.1 Magnesium (1.6 - 2.3 mg/dL) 1.9 Total Bilirubin (0.2 - 1.3 mg/dL) 0.6 AST (17 - 59 U/L) 20 ALT (21 - 72 U/L) 33 Albumin (3.5 - 5.0 g/dL) 2.0 L Hematology CBC w Diff MAN DIFF ORDERED WBC (4.8 - 10.8 /CUMM) 10.2 RBC (4.70 - 6.10 /CUMM) 3.16 L Hgb (14.0 - 18.0 G/DL) 9.1 L Hct (42 - 52 %) 28.0 L MCV (80.0 - 94.0 FL) 88.7 MCH (27.0 - 31.0 PG) 28.7 RDW (11.5 - 14.5 %) 19.3 H Plt Count (130 - 400 /CUMM) 231 MPV (7.4 - 10.4 FL) 8.5 Gran % (42.2 - 75.2 %) 55.9 Lymphocytes % (20.5 - 51.1 %) 32.7 Monocytes % (1.7 - 9.3 %) 9.6 H Eosinophils % (0 - 5 %) 1.5 Basophils % (0.0 - 2.0 %) 0.3 Absolute Granulocytes (1.4 - 6.5 /CUMM) 5.7 Segmented Neutrophils (42.2 - 75.2 %) 59 Band Neutrophils (0.0 - 5.0 %) 5 Absolute Lymphocytes (1.2 - 3.4 /CUMM) 3.3 Lymphocytes (20.5 - 51.1 %) 26 Monocytes (1.7 - 9.3 %) 7 Absolute Monocytes (0.10 - 0.60 /CUMM) 1.0 H Eosinophils (0 - 5.0 %) 1 Absolute Eosinophils (0.0 - 0.7 /CUMM) 0.1 Absolute Basophils (0.0 - 0.2 /CUMM) 0 Metamyelocytes (0.0 - 1.0 %) 2 H Platelet Estimate (ADEQUATE) ADEQUATE Polychromasia 1+ Hypochromic-Microcytic 1+ Poikilocytosis 1+ Basophilic Stippling SLIGHT Ovalocytes 1+ PUBS MCHC (33.0 - 37.0 G/DL) 32.3 L Miscellaneous Phlebotomy Draw Site LEFT RADIAL Other Body Source Fld Total RBCs Counted (%) 100
--- NOTE | 2017-07-28 09:26 | PN- Infect Dx ---
Subjective Subjective: Afebrile on steroids. He offers no complaints. Objective Last 24 Hrs of Vital Signs/I&O Vital Signs Date Time Temp Pulse Resp B/P B/P Pulse O2 O2 Flow FiO2 Mean Ox Delivery Rate 07/28 08 92 Ventilator 35% 07/28 0800 98.1 69 19 128/66 92 Ventilator 35% 07/28 0557 35 07/28 0400 94 Ventilator 35% 07/28 0256 35 07/28 0000 98.6 71 14 133/57 94 Ventilator 35% 07/28 0000 94 Ventilator 35% 07/27 2218 35 07/27 2000 97 Ventilator 35% 07/27 1920 35 07/27 1620 40 07/27 1600 98.8 69 17 120/58 95 Ventilator 40% 07/27 1600 95 Ventilator 40% 07/27 1529 117/51 07/27 1408 40 07/27 1346 69 81/39 07/27 1202 40 07/27 1200 96 Ventilator 40% 07/27 1200 97.9 78 20 100/50 96 Ventilator 40% 07/27 0934 69 100/56 Intake & Output 07/28 1600 07/28 0800 07/28 0000 Intake Total 901 1024 Output Total 1000 1110 Balance -99 -86 Intake, IV 280 396 Intake, Tube 540 563 Feeding Intake, Tube 81 65 Irrigant Number 0 0 Bowel Movements Output, 550 610 Drainage Output, 0 100 Gastric Drainage Output, Urine 450 400 Physical Exam Other Physical Findings: He is awake and alert on the ventilator Lungs are clear Heart regular rhythm with no murmur Abdomen is mildly distended, tender to palpation diffusely, with positive bowel sounds; purulent appearing drainage expressed from the inferior aspect of the incision; WILLEM drains remain in place with significant output Extremities 1+ edema all 4 extremities; PICC remains in place in the right upper extremity with no inflammation at the site Duvall catheter remains in place Results Last 24 Hours of Lab Results: Laboratory Tests 07/28 07/28 0450 0445 Blood Gas pH (7.35 - 7.45 PH) 7.56 H pCO2 (35 - 45 TORR) 34 L pO2 (80 - 100 TORR) 62 L HCO3 (21 - 28 MEQ/L) 30 H ABG O2 Sat (Measured) (>96.0 %) 91.0 L P-50 (Temp Corrected) Y Carboxyhemoglobin (1.5 - 5.0 %) 0.3 L O2 Concentration % 35% Temperature (97.0 - 100.0 FARH) 97.9 Respiration Rate (BPM) 14 O2 Delivery Method ESPRIT Vent Mode AC Expiratory Pressure (CMH2O/P) 5 Tidal Volume (CC) 500 Chemistry Sodium (137 - 145 mmol/L) 143 Potassium (3.5 - 5.1 mmol/L) 3.8 Chloride (98 - 107 mmol/L) 105 Carbon Dioxide (22 - 30 mmol/L) 30 Anion Gap (5 - 16) 7 BUN (9 - 20 mg/dL) 31 H Creatinine (0.7 - 1.2 mg/dL) 0.9 Estimated GFR (>60 ml/min) > 60 Glucose (65 - 99 mg/dL) 143 H Calcium (8.4 - 10.2 mg/dL) 7.5 L Phosphorus (2.5 - 4.5 mg/dL) 3.1 Magnesium (1.6 - 2.3 mg/dL) 1.9 Total Bilirubin (0.2 - 1.3 mg/dL) 0.6 AST (17 - 59 U/L) 20 ALT (21 - 72 U/L) 33 Albumin (3.5 - 5.0 g/dL) 2.0 L Hematology CBC w Diff MAN DIFF ORDERED WBC (4.8 - 10.8 /CUMM) 10.2 RBC (4.70 - 6.10 /CUMM) 3.16 L Hgb (14.0 - 18.0 G/DL) 9.1 L Hct (42 - 52 %) 28.0 L MCV (80.0 - 94.0 FL) 88.7 MCH (27.0 - 31.0 PG) 28.7 RDW (11.5 - 14.5 %) 19.3 H Plt Count (130 - 400 /CUMM) 231 MPV (7.4 - 10.4 FL) 8.5 Gran % (42.2 - 75.2 %) 55.9 Lymphocytes % (20.5 - 51.1 %) 32.7 Monocytes % (1.7 - 9.3 %) 9.6 H Eosinophils % (0 - 5 %) 1.5 Basophils % (0.0 - 2.0 %) 0.3 Absolute Granulocytes (1.4 - 6.5 /CUMM) 5.7 Segmented Neutrophils (42.2 - 75.2 %) 59 Band Neutrophils (0.0 - 5.0 %) 5 Absolute Lymphocytes (1.2 - 3.4 /CUMM) 3.3 Lymphocytes (20.5 - 51.1 %) 26 Monocytes (1.7 - 9.3 %) 7 Absolute Monocytes (0.10 - 0.60 /CUMM) 1.0 H Eosinophils (0 - 5.0 %) 1 Absolute Eosinophils (0.0 - 0.7 /CUMM) 0.1 Absolute Basophils (0.0 - 0.2 /CUMM) 0 Metamyelocytes (0.0 - 1.0 %) 2 H Platelet Estimate (ADEQUATE) ADEQUATE Polychromasia 1+ Hypochromic-Microcytic 1+ Poikilocytosis 1+ Basophilic Stippling SLIGHT Ovalocytes 1+ PUBS MCHC (33.0 - 37.0 G/DL) 32.3 L Miscellaneous Phlebotomy Draw Site LEFT RADIAL Other Body Source Fld Total RBCs Counted (%) 100 Last 24 Hours of Les Results: Sputum culture July 26 mixed jose david Recent Imaging Studies: Doppler of the right lower extremity July 27 negative Chest x-ray July 28, personally reviewed, reveals bibasilar densities unchanged Assessment/Plan Impression: Condition remains poor, status post reintubation for worsening of his respiratory status 2 days ago, though his FiO2 has further decreased, and he continues to require pressors intermittently. He remains afebrile (on steroids) with a normal white blood cell count on Daptomycin Day 8 and Meropenem Day 12 for VRE and Enterobacter isolated from the OR cultures following a perforated duodenal ulcer 19 days ago, with his hospital course complicated by an ongoing enteric leak despite a return to the OR for a duodenal repair 12 days ago. His recent CT scan of the abdomen and pelvis did not reveal any evidence of a collection, though he does have persistent drainage from the inferior aspect of his incision. Have discussed duration of antibiotics with Surgery and will plan to discontinue his antibiotics in 2 days. Suggestion: 1. Continue Daptomycin and Meropenem until July 30, at which point would discontinue and follow off antibiotics Shala Burciaga MD is covering until August 01
--- NOTE | 2017-07-28 11:20 | PN- CRCU ---
Subjective HPI/Critical Care Issues: The patient remains intubated and sedated on fentanyl. He opens his eyes when stimulated. He was hemodynamically unstable yesterday noting he was started on Levophed for several hours. He is now off pressors and his blood pressure is much improved noting his last blood pressure was 125/60. His respiratory status is stable and he is on 35% oxygen with 5 of PEEP, with saturations in the mid 90s. He is afebrile. He has excellent urine output. He is tolerating tube feeds well. The patient is not able to offer complaints. Objective Current Medications: Current Medications Sig/Buck Start time Last Medication Dose Route Stop Time Status Admin Acetaminophen 1,000 MG Q6P PRN 07/16 0530 AC 07/20 N/A 1 UNIT IV 0659 Acetylcysteine 2 ML BID 07/26 2200 AC 07/28 INH 0840 Albuterol Sulfate 3 ML EVERY 4 HRS/AWAKE 07/27 0800 AC 07/28 INH 0840 Budesonide/ 2 PUF BID 07/26 1056 AC 07/28 Formoterol Fumarate INH 0840 Carvedilol 3.125 MG BID 07/28 1000 AC 07/28 PO 1000 Carvedilol 3.125 MG BID 07/22 1000 DC 07/27 PO 0934 Daptomycin 500 MG Q24H 07/20 1130 AC 07/27 Sodium Chloride 50 ML IV 1052 Fentanyl Citrate 1,000 MCG Q13H 07/27 1600 AC 07/27 Dextrose/Water 250 ML IV 2217 Fentanyl Citrate 1,000 MCG Q20H 07/27 0300 DC 07/27 Dextrose/Water 250 ML IV 07/27 1559 0915 Furosemide 20 MG 7:30 AM, & 4:30 PM 07/19 1630 DC 07/27 IV 0658 Hydrocortisone 50 MG Q12 07/25 1000 AC 07/28 Sodium Succinate IV 1001 Insulin Aspart 0 Q4 07/25 1000 AC 07/28 SC 1001 Insulin Detemir 15 UNITS BID 07/25 1000 AC 07/28 SC 1000 Meropenem 1 GM Q8H 07/20 1000 AC 07/28 IV 1000 Morphine Sulfate 2 MG Q4P PRN 07/14 1145 DC 07/22 IV 1659 Norepinephrine 4 MG Q24H 07/27 1345 DC 07/27 Sodium Chloride 250 ML IV 1529 Octreotide Acetate 500 MCG Q20H 11/10 1400 AC 07/28 Dextrose/Water 500 ML IV 0207 Pantoprazole Sodium 40 MG BID 07/10 1016 AC 07/28 IV 1001 Phosphate 250 MG ONCE ONE 07/27 1330 DC 07/27 PO 07/27 1331 1431 Sodium Chloride 500 ML BOLUS ONE 07/27 1315 DC 07/27 IV 07/27 1414 1310 Vital Signs & I&O Last 24 Hrs of Vitals and I&O: Vital Signs Date Time Temp Pulse Resp B/P B/P Pulse O2 O2 Flow FiO2 Mean Ox Delivery Rate 07/28 1000 69 120/80 07/28 0835 35 07/28 0800 92 Ventilator 35% 07/28 0800 98.1 69 19 128/66 92 Ventilator 35% 07/28 0557 35 07/28 0400 94 Ventilator 35% 07/28 0256 35 07/28 0000 98.6 71 14 133/57 94 Ventilator 35% 07/28 0000 94 Ventilator 35% 07/27 2218 35 07/27 2000 97 Ventilator 35% 07/27 1920 35 07/27 1620 40 07/27 1600 98.8 69 17 120/58 95 Ventilator 40% 07/27 1600 95 Ventilator 40% 07/27 1529 117/51 07/27 1408 40 07/27 1346 69 81/39 07/27 1202 40 07/27 1200 96 Ventilator 40% 07/27 1200 97.9 78 20 100/50 96 Ventilator 40% Intake & Output 07/28 1600 07/28 0800 07/28 0000 Intake Total 901 1024 Output Total 1000 1110 Balance -99 -86 Intake, IV 280 396 Intake, Tube 540 563 Feeding Intake, Tube 81 65 Irrigant Number 0 0 Bowel Movements Output, 550 610 Drainage Output, 0 100 Gastric Drainage Output, Urine 450 400 Exam General Appearance: sedated, intubated, obese Head: atraumatic, normal appearance Neck: supple Respiratory: quiet respiration, lungs clear Cardiovascular: regular rate/rhythm Abdomen: mildly distended, tender to palpation diffusely, bowel sounds are positive, there is purulent appearing drainage expressed from the inferior aspect of the incision, WILLEM drains remain in place with significant output Extremities: positive edema and all 4 extremities, PICC remains in the right upper extremity Skin: intact, warm/dry Results Last 24 Hrs of Lab Results: Laboratory Tests 07/28/17 0450: pH 7.56 H, pCO2 34 L, pO2 62 L, HCO3 30 H, ABG O2 Sat (Measured) 91.0 L, P- 50 (Temp Corrected) Y, Carboxyhemoglobin 0.3 L, O2 Concentration % 35%, Temperature 97.9, Respiration Rate 14, O2 Delivery Method ESPRIT, Vent Mode AC, Expiratory Pressure 5, Tidal Volume 500, Phlebotomy Draw Site LEFT RADIAL 07/28/17 0445: Anion Gap 7, Estimated GFR > 60, Glucose 143 H, Calcium 7.5 L, Phosphorus 3.1, Magnesium 1.9, Total Bilirubin 0.6, AST 20, ALT 33, Albumin 2.0 L, CBC w Diff MAN DIFF ORDERED, RBC 3.16 L, MCV 88.7, MCH 28.7, RDW 19.3 H, MPV 8.5, Gran % 55.9, Lymphocytes % 32.7, Monocytes % 9.6 H, Eosinophils % 1.5, Basophils % 0.3 , Absolute Granulocytes 5.7, Segmented Neutrophils 59, Band Neutrophils 5, Absolute Lymphocytes 3.3, Lymphocytes 26, Monocytes 7, Absolute Monocytes 1.0 H , Eosinophils 1, Absolute Eosinophils 0.1, Absolute Basophils 0, Metamyelocytes 2 H, Platelet Estimate ADEQUATE, Polychromasia 1+, Hypochromic-Microcytic 1+, Poikilocytosis 1+, Basophilic Stippling SLIGHT, Ovalocytes 1+, PUBS MCHC 32.3 L , Fld Total RBCs Counted 100 Impression/Plan Impression/Plan Impression/Plan: 1. Septic shock - secondary to duodenal ulcer with associated peritonitis in uncontrolled leak, OR cultures positive for VRE and Enterobacter. There is concern for ongoing uncontrolled week as the patient has significant drainage from WILLEM drain #1. 2. Atrial flutter - controlled. 3. On stress dose steroids. 4. Ischemic cardiac disease/cad. 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 5. Morbid obesity. 6. History of obstructive sleep apnea on nasal CPAP. Recommendations: * Decrease respiratory rate on vent to 10 breaths per minute. * Will follow up surgery recommendations. * Continue tube feeds at goal. * Continue meropemem and daptomycin as per ID. * Continue octreotide drip for now. * Continue stress dose steroids. * Fentanyl drip for an SAS score of 2-3. * Will continue to follow up consultants recommendations. * Continue DVT/GI prophylaxis. Subcutaneous heparin held due to stool positive for blood. * Continue all supportive care. * Continue to monitor in the critical care unit.
[2017-07-28 16:00] VITALS: BP 140/60
--- NOTE | 2017-07-28 23:17 | PN- General Surgery ---
Subjective Subjective: no change, bp stable, off pressors, remains intubated, responsive to verbal stim Objective Vital Signs and I&Os Vital Signs Date Time Temp Pulse Resp B/P B/P Pulse O2 O2 Flow FiO2 Mean Ox Delivery Rate 07/28 2250 35 07/28 2209 69 142/66 07/28 2000 97 Ventilator 35% 07/28 1949 35 07/28 1701 35 07/28 1600 99.9 69 20 140/60 96 Ventilator 35% 07/28 1600 96 Ventilator 35% 07/28 1446 35 07/28 1157 94 Ventilator 30% 07/28 1150 35 07/28 1000 69 120/80 07/28 0835 35 07/28 0800 92 Ventilator 35% 07/28 0800 98.1 69 19 128/66 92 Ventilator 35% 07/28 0557 35 07/28 0400 94 Ventilator 35% 07/28 0256 35 07/28 0000 98.6 71 14 133/57 94 Ventilator 35% 07/28 0000 94 Ventilator 35% Intake & Output 07/28 1600 07/28 0800 07/28 0000 07/27 1600 07/27 0800 07/27 0000 Intake Total 7848 173 7183 1640 785 840 Output Total 1275 1000 1110 3503 421 6232 Balance -84 -99 -86 365 -155 -335 Intake, IV 405 280 396 926 375 300 Intake, Oral 0 0 Intake, Other 60 Intake, Tube 586 540 563 559 350 480 Feeding Intake, Tube 200 81 65 155 60 Irrigant Number 0 0 0 1 Bowel Movements Output, 575 550 610 275 240 175 Drainage Output, 50 0 100 100 100 Gastric Drainage Output, Urine 650 450 400 233 641 1978 Physical Exam: gen- nad card- s1s2 pulm- coarse thoughout anterior, intubated abd- soft, inferior aspect staple line open w purulent drainage, currently with moderate amount of purulent drainage. JPs w thick fibrinous bilious drainage. ext- calves edematous, alps on Laboratory Tests 07/26 07/26 07/26 07/26 1450 0935 0915 0752 Blood Gas pH (7.35 - 7.45 PH) 7.50 H 7.59 H pCO2 (35 - 45 TORR) 44 30 L pO2 (80 - 100 TORR) 96 88 HCO3 (21 - 28 MEQ/L) 33 H 28 ABG O2 Sat (Measured) (>96.0 %) 97.0 97.0 Carboxyhemoglobin (1.5 - 5.0 %) 0.3 L 0.7 L O2 Concentration % 55% 60% Respiration Rate (BPM) 14 26 O2 Delivery Method VENT VENT Vent Mode VC/AC AC Expiratory Pressure (CMH2O/P) 5 5 Tidal Volume (CC) 500 600 Chemistry Lactic Acid (0.7 - 2.1 mmol/L) 1.9 Cancelled Miscellaneous Phlebotomy Draw Site LEFT RADIAL LEFT RADIAL 07/26 07/26 0720 0337 Blood Gas pH (7.35 - 7.45 PH) 7.21 *L pCO2 (35 - 45 TORR) 80 *H pO2 (80 - 100 TORR) 46 *L HCO3 (21 - 28 MEQ/L) 32 H ABG O2 Sat (Measured) (>96.0 %) 63.0 L P-50 (Temp Corrected) N Carboxyhemoglobin (1.5 - 5.0 %) 0 L O2 Concentration % 100% Temperature (97.0 - 100.0 FARH) 98.6 O2 Delivery Method AMBU BAG Chemistry Sodium (137 - 145 mmol/L) 145 Potassium (3.5 - 5.1 mmol/L) 4.3 Chloride (98 - 107 mmol/L) 106 Carbon Dioxide (22 - 30 mmol/L) 30 Anion Gap (5 - 16) 9 BUN (9 - 20 mg/dL) 34 H Creatinine (0.7 - 1.2 mg/dL) 0.9 Estimated GFR (>60 ml/min) > 60 Glucose (65 - 99 mg/dL) 150 H Calcium (8.4 - 10.2 mg/dL) 7.6 L Phosphorus (2.5 - 4.5 mg/dL) 4.5 Magnesium (1.6 - 2.3 mg/dL) 2.2 Total Bilirubin (0.2 - 1.3 mg/dL) 0.8 AST (17 - 59 U/L) 30 ALT (21 - 72 U/L) 49 Albumin (3.5 - 5.0 g/dL) 2.2 L Hematology CBC w Diff MAN DIFF ORDERED WBC (4.8 - 10.8 /CUMM) 14.2 H RBC (4.70 - 6.10 /CUMM) 3.59 L Hgb (14.0 - 18.0 G/DL) 10.3 L Hct (42 - 52 %) 31.9 L MCV (80.0 - 94.0 FL) 88.9 MCH (27.0 - 31.0 PG) 28.8 RDW (11.5 - 14.5 %) 18.9 H Plt Count (130 - 400 /CUMM) 307 MPV (7.4 - 10.4 FL) 8.8 Gran % (42.2 - 75.2 %) 66.6 Lymphocytes % (20.5 - 51.1 %) 24.8 Monocytes % (1.7 - 9.3 %) 8.0 Eosinophils % (0 - 5 %) 0.4 Basophils % (0.0 - 2.0 %) 0.2 Absolute Granulocytes (1.4 - 6.5 /CUMM) 9.5 H Segmented Neutrophils (42.2 - 75.2 %) 67 Band Neutrophils (0.0 - 5.0 %) 4 Absolute Lymphocytes (1.2 - 3.4 /CUMM) 3.5 H Lymphocytes (20.5 - 51.1 %) 21 Monocytes (1.7 - 9.3 %) 7 Absolute Monocytes (0.10 - 0.60 /CUMM) 1.1 H Eosinophils (0 - 5.0 %) 1 Absolute Eosinophils (0.0 - 0.7 /CUMM) 0.1 Absolute Basophils (0.0 - 0.2 /CUMM) 0 Platelet Estimate (ADEQUATE) ADEQUATE Polychromasia 1+ Hypochromic-Microcytic 1+ Poikilocytosis 2+ Basophilic Stippling 1+ Ovalocytes 1+ Stomatocytes 1+ PUBS MCHC (33.0 - 37.0 G/DL) 32.3 L Miscellaneous Phlebotomy Draw Site LEFT RADIAL Other Body Source Fld Total RBCs Counted (%) 100 Assessment/Plan Assessment/Plan A- POD12 sp exlap with primary re-repair and tnoo patch of perf duo ulcer, [id number] sp initial exlap with tono patch repair of perf duo ulcer, continues to be in ICU, intubated, tolerating tube feeds, no longer requiring pressor support, with wound infection with purulent drainage, with continued bilious output of drain and controlled duodenal leak. P- jps to self suction cont tf, npo midline wound- draining cont, daily changes and prn. abx per id monitor bowel fxn medical mgmt per primary team Core Measures Venous Thromboembolism VTE Risk Factors Acute Medical Illness No Mechanical VTE Prophylaxis d/t N/A MechProphylax Ordered No VTE Pharm Prophylaxis d/t NA PharmProphylax ordered
[2017-07-29] VITALS: BP 116/60
[2017-07-29 05:07] LABS: ABSOLUTE BASOPHIL COUNT 0 /CUMM (0.0-0.2); ABSOLUTE EOSINOPHIL COUNT 0 /CUMM (0.0-0.7); ABSOLUTE GRANULOCYTE CT 6.2 /CUMM (1.4-6.5); ABSOLUTE LYMPH COUNT 2.7 /CUMM (1.2-3.4); ABSOLUTE MONOCYTE COUNT 1.1 /CUMM (0.10-0.60); BASOPHIL % 0.3 % (0.0-2.0); EOSINOPHIL % 0.2 % (0-5); GRANULOCYTE % 61.7 % (42.2-75.2); MEAN CORPUSCULAR HGB 28.8 PG (27.0-31.0); MEAN CORPUSCULAR VOLUME 89.8 FL (80.0-94.0); MEAN PLATELET VOLUME 8.8 FL (7.4-10.4); PLATELET COUNT 204 /CUMM (130-400); RBC DISTRIBUTION WIDTH 20.4 % (11.5-14.5); RED BLOOD CELL CT 3.12 /CUMM (4.70-6.10)
--- NOTE | 2017-07-29 07:41 | PN- Resident CRCU ---
Subjective HPI/CRCU Issues: Patient was seen and examined this morning, intubated, sedated however able to respond to verbal stimuli by opening eyes, answer questions by moving. Patient denied pain. Continue to be off pressors. 24 Hour Events: Temperature 98.8, MAXIMUM TEMPERATURE 100 Heart rate lowest 68, highest 83 paced -- no VT events on the monitor, PVC Blood pressure lowest 85/64, highest 150/73 off pressor AC 500/10/35/5 sat 96% CXR Stable examination. Endotracheal tube tip 4.4 cm above the kika. Bibasilar atelectasis and/or consolidation, left greater than right. No significant pleural effusion. No pneumothorax. ABG 7.52/35/79/28 saturation 95% Intake 3204/ output 3400 Octreotide drip at 25 and fentanyl drip at 12.5 Tube feeds running at 75cc/hr, no residual PICC line right arm Objective Vital Signs & I&O Last 8 Hrs of Vitals and I&O: 11 Exam General Appearance: sedated, intubated Head: atraumatic, normal appearance Ears, Nose, Throat: normal pharynx Neck: normal inspection, supple Respiratory: lungs clear Cardiovascular: regular rate/rhythm Gastrointestinal: normal bowel sounds, soft, Diffuse tenderness Centeral vertical surgical scar, stapled Inferior edge open with purulent discharge Extremities: normal inspection, pedal edema BL LE R>L Other Physical Findings: on command, wiggles toes and moves fingers Current Medications: Current Medications Sig/Buck Start time Last Medication Dose Route Stop Time Status Admin Acetaminophen 1,000 MG Q6P PRN 07/16 0530 AC 07/20 N/A 1 UNIT IV 0659 Acetylcysteine 2 ML BID 07/26 2200 DC 07/29 INH 0830 Albuterol Sulfate 3 ML EVERY 4 HRS/AWAKE 07/27 0800 AC 07/29 INH 1156 Budesonide/ 2 PUF BID 07/26 1056 AC 07/29 Formoterol Fumarate INH 0830 Carvedilol 3.125 MG BID 07/28 1000 AC 07/29 PO 1107 Daptomycin 500 MG 1130 07/29 1130 AC 07/29 IV 1106 Daptomycin 500 MG Q24H 07/20 1130 DC 07/28 Sodium Chloride 50 ML IV 07/30 2300 1143 Fentanyl Citrate 1,000 MCG Q13H 11/22 1600 AC 07/28 Dextrose/Water 250 ML IV 1809 Hydrocortisone 50 MG Q12 07/25 1000 AC 07/29 Sodium Succinate IV 1106 Insulin Aspart 0 Q4 07/25 1000 AC 07/29 SC 1113 Insulin Detemir 17 UNITS BID 07/29 2200 AC 07/29 SC 1114 Insulin Detemir 15 UNITS BID 07/25 1000 DC 07/28 SC 2208 Meropenem 1 GM Q8H 07/20 1000 AC 07/29 IV 07/30 2300 1107 Octreotide Acetate 500 MCG Q20H 07/15 1400 AC 07/28 Dextrose/Water 500 ML IV 2210 Pantoprazole Sodium 40 MG BID 07/10 1016 AC 07/29 IV 1106 Phosphate 250 MG ONCE ONE 07/29 1030 DC PO 07/29 1031 Impression/Plan Impression/Problem List Impression: 76 year old gentleman PAF on Tikosyn, not on AC, 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 extubated, continues to be on tube feeds. #Endotracheal intubation - Obtain chest x-ray and ABG in a.m -We'll start extubation trial today #Septic shock - 2/2 peritonitis from perforated duodenal ulcer - Off Levophid - Continue Daptomycin and Meropenem. Continue until 07/30 and continue off Abx - Continue Hydrocortisone 50 mg Q8 #V. tach - F/u cardio recs - Continue Carvedilol 3.125 twice a day with holding parameters #Hx of PAF on Tikosyn - Curently in NSR, and rate controlled - Continue to hold tikosyn # Perforated duodenal ulcer s/p repair - Status post expiratory laparotomy and suture repair of duodenal ulcer with Fabrizio patch on 07/09 and 07/16--- no recommendation for further surgical intervention at the moment - Maintain octreotide drip for continuous drainage from WILLEM--decision will made when patient is extubated regarding octreotide drip - IV Protonix 40mg BID - Continue daptomycin and meropenem, ID on board, body fluid culture 2 from the OR positive for vancomycin-resistant enterococcus -Respiratory culture from 07/18 positive for vancomycin-resistant enterococcus #USMAN - Resolved - Continue to montior UOP #Uncontrolled DM, secondary to Sepsis, pressors and octreotide - Continue Levemir 15 units twice a day - Novolog SS every 4 hours - Target Blood sugar 140 -180 - Continue following endocrine recommendation - DVT prophylaxis ALPS - Diet Continue on J tube feeding, rate 75 ml/h - Code Status Full Code Consultation ID, surgery, cardiology, nephrology, endocrinology IV access PICC line right arm Problem List: 1. Duodenal ulcer with perforation 2. Septic shock Pain Ratin Tomorrow's Labs & Rationales: CBC ABG ICU bundle CXR Plan DVT/Prophylaxis: mechanical, pharmacological
[2017-07-29 08:00] VITALS: BP 90/50
--- NOTE | 2017-07-29 08:10 | RADIOLOGY REPORT ---
EXAMINATION: XR PORTABLE CHEST CLINICAL INFORMATION: Endotracheal tube position COMPARISON: 07/28/2017 TECHNIQUE: Portable frontal view of the chest was obtained. FINDINGS: Endotracheal tube tip is unchanged in positioning a 4.4 cm above the kika. Right upper extremity PICC with catheter tip not well seen but at least be on the mid SVC. Enteric tube seen to the level of the mid to distal esophagus, however underpenetration of the x-ray beam limits evaluation distally. Left chest pacer. Median sternotomy wires. Mediastinal surgical clips. EKG leads project over the chest. No interval change in the appearance of the lungs which are hypoinflated. Dense retrocardiac consolidation is unchanged. Minimal consolidation at the right lung base is unchanged. No significant pleural effusion. No pneumothorax. The cardiomediastinal silhouette is unchanged with mild cardiomegaly. IMPRESSION: Stable examination. Endotracheal tube tip 4.4 cm above the kika. Bibasilar atelectasis and/or consolidation, left greater than right. No significant pleural effusion. No pneumothorax.
--- NOTE | 2017-07-29 08:40 | PN- CRCU ---
Subjective HPI/Critical Care Issues: The patient remains intubated and sedated. He continues to have significant leakage in his WILLEM drains. He remains hemodynamically stable, off pressors. He is much more awake and alert. He is now following commands. Objective Current Medications: Current Medications Sig/Buck Start time Last Medication Dose Route Stop Time Status Admin Acetaminophen 1,000 MG Q6P PRN 07/16 0530 AC 07/20 N/A 1 UNIT IV 0659 Acetylcysteine 2 ML BID 07/26 2200 AC 07/29 INH 0830 Albuterol Sulfate 3 ML EVERY 4 HRS/AWAKE 07/27 0800 AC 07/29 INH 0829 Budesonide/ 2 PUF BID 07/26 1056 AC 07/29 Formoterol Fumarate INH 0830 Carvedilol 3.125 MG BID 07/28 1000 AC 07/28 PO 2209 Daptomycin 500 MG 1130 07/29 1130 AC IV Daptomycin 500 MG Q24H 07/20 1130 DC 07/28 Sodium Chloride 50 ML IV 07/30 2300 1143 Fentanyl Citrate 1,000 MCG Q13H 07/27 1600 AC 07/28 Dextrose/Water 250 ML IV 1809 Hydrocortisone 50 MG Q12 07/25 1000 AC 07/28 Sodium Succinate IV 2208 Insulin Aspart 0 Q4 07/25 1000 AC 07/29 SC 0601 Insulin Detemir 15 UNITS BID 07/25 1000 AC 07/28 SC 2208 Magnesium Oxide 400 MG ONE ONE 07/28 1230 DC 07/28 PO 07/28 1231 1411 Meropenem 1 GM Q8H 07/20 1000 AC 07/29 IV 07/30 2300 0148 Norepinephrine 4 MG Q24H 07/27 1345 DC 07/27 Sodium Chloride 250 ML IV 1529 Octreotide Acetate 500 MCG Q20H 07/15 1400 AC 07/28 Dextrose/Water 500 ML IV 2210 Pantoprazole Sodium 40 MG BID 07/10 1016 AC 07/28 IV 2207 Phosphate 250 MG ONCE ONE 07/28 1230 DC 07/28 PO 07/28 1231 1411 Potassium Chloride 40 MEQ ONCE ONE 07/28 1230 DC 07/28 PO 07/28 1231 1411 Vital Signs & I&O Last 24 Hrs of Vitals and I&O: Vital Signs Date Time Temp Pulse Resp B/P B/P Pulse O2 O2 Flow FiO2 Mean Ox Delivery Rate 11/24 0645 35 07/29 0400 94 Ventilator 35% 07/29 0258 35 07/29 0103 35 07/29 0000 93 Ventilator 35% 07/29 0000 98.5 69 17 116/60 93 Ventilator 35% 07/28 2250 35 07/28 2209 69 142/66 07/28 2000 97 Ventilator 35% 07/28 1949 35 07/28 1701 35 07/28 1600 99.9 69 20 140/60 96 Ventilator 35% 07/28 1600 96 Ventilator 35% 07/28 1446 35 07/28 1157 94 Ventilator 30% 07/28 1150 35 07/28 1000 69 120/80 07/28 0835 35 Intake & Output 07/29 1600 07/29 0800 07/29 0000 Intake Total 975.1 1038 Output Total 1125 1000 Balance -149.9 38 Intake, IV 295.1 274 Intake, Oral 0 0 Intake, Other 80 209 Intake, Tube 600 555 Feeding Number 2 2 Bowel Movements Output, 425 600 Drainage Output, 100 50 Gastric Drainage Output, Urine 600 350 Exam General Appearance: sedated, intubated, obese Head: atraumatic, normal appearance Neck: supple Respiratory: quiet respiration, lungs clear Cardiovascular: regular rate/rhythm Abdomen: mildly distended, tender to palpation diffusely, bowel sounds are positive, there is purulent appearing drainage expressed from the inferior aspect of the incision, WILLEM drains remain in place with significant output Extremities: positive edema and all 4 extremities, PICC remains in the right upper extremity Skin: intact, warm/dry Diagnostic Data CXR Findings: Stable examination. Endotracheal tube tip 4.4 cm above the kika. Bibasilar atelectasis and/or consolidation, left greater than right. No significant pleural effusion. No pneumothorax. Impression/Plan Impression/Plan Impression/Plan: 1. Septic shock - secondary to duodenal ulcer with associated peritonitis and uncontrolled leak, OR cultures positive for VRE and Enterobacter. There is concern for ongoing uncontrolled leak as the patient has significant ongoing drainage. 2. Atrial flutter - controlled. 3. On stress dose steroids - BP controlled. 4. Ischemic cardiac disease/cad. 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 5. Morbid obesity. 6. History of obstructive sleep apnea on nasal CPAP. Recommendations: * Begin weaning trials. * Will follow up surgery recommendations. * Continue tube feeds at goal. * Continue meropemem and daptomycin as per ID. * Continue octreotide drip for now. Will need to discuss plan with surgery. * Continue stress dose steroids. * Fentanyl drip for an SAS score of 2-3. * Will continue to follow up consultants recommendations. * Continue DVT/GI prophylaxis. Subcutaneous heparin held due to stool positive for blood. * Continue all supportive care. * Out of bed to chair if able. * Continue to monitor in the critical care unit.
--- NOTE | 2017-07-29 10:29 | PN- Diabetes ---
Assessment/Plan Assessment: 76-year-old male with Hx of CAD with low ejection fraction, atrial fibrillation, AICD, previous infection of hip with prolonged antibiotic, history of peptic ulcer disease, diabetes and renal stone, was admitted for perforation of duodenum now with septic shock in ICU. He was on 3 pressors, TPN, octreotide drip and bicarb drip. His BP remained low and stress dose of steroid was initiated despite his am cortisol was 24.8. Patient is still on hydrocortisone 50 mg IV every 12 hours and octreotide drip. Patient was re-intubated on 07/26/2017. He has been off on TPN. Currently he is on tube feeding with Vital 75 mL per hour. Patient was placed on Levemir 15 units twice a day and Novolog coverage every 4 hours on 2016. His blood sugars were 187, 203, 171 and 237. Plan: 1. increase Levemir to 17 units twice a day; 2. continue the current Novolog coverage every 4 hours; 3. continue the current hydrocortisone 50 mg iv every 12 hours; 4. monitor FSGs. will follow. Subjective Subjective: Patient remains intubated, on sedation. Objective Last 24 Hrs of Vital Signs/I&O Vital Signs Date Time Temp Pulse Resp B/P B/P Pulse O2 O2 Flow FiO2 Mean Ox Delivery Rate 07/29 0835 35 07/29 0800 94 Ventilator 30% 07/29 0800 98.4 70 18 90/50 94 Ventilator 30% 07/29 0645 35 07/29 0400 94 Ventilator 35% 07/29 0258 35 07/29 0103 35 07/29 0000 93 Ventilator 35% 07/29 0000 98.5 69 17 116/60 93 Ventilator 35% 07/28 2250 35 07/28 2209 69 142/66 07/28 2000 97 Ventilator 35% 07/28 1949 35 07/28 1701 35 07/28 1600 99.9 69 20 140/60 96 Ventilator 35% 07/28 1600 96 Ventilator 35% 07/28 1446 35 07/28 1157 94 Ventilator 30% 07/28 1150 35 Intake & Output 07/29 1600 07/29 0800 07/29 0000 Intake Total 975.1 1038 Output Total 1125 1000 Balance -149.9 38 Intake, IV 295.1 274 Intake, Oral 0 0 Intake, Other 80 209 Intake, Tube 600 555 Feeding Number 2 2 Bowel Movements Output, 425 600 Drainage Output, 100 50 Gastric Drainage Output, Urine 600 350 Findings Pertinent Lab/Les Results: Laboratory Tests 07/29 07/29 0610 0410 Blood Gas pH (7.35 - 7.45 PH) 7.52 H pCO2 (35 - 45 TORR) 35 pO2 (80 - 100 TORR) 79 L HCO3 (21 - 28 MEQ/L) 28 ABG O2 Sat (Measured) (>96.0 %) 95.0 L P-50 (Temp Corrected) N Carboxyhemoglobin (1.5 - 5.0 %) 0.3 L O2 Concentration % .35 Respiration Rate (BPM) 10 O2 Delivery Method VENT Vent Mode A/C Expiratory Pressure (CMH2O/P) 5 Tidal Volume (CC) 500 Chemistry Sodium (137 - 145 mmol/L) 142 Potassium (3.5 - 5.1 mmol/L) 4.3 Chloride (98 - 107 mmol/L) 105 Carbon Dioxide (22 - 30 mmol/L) 30 Anion Gap (5 - 16) 7 BUN (9 - 20 mg/dL) 29 H Creatinine (0.7 - 1.2 mg/dL) 0.9 Estimated GFR (>60 ml/min) > 60 Glucose (65 - 99 mg/dL) 164 H Calcium (8.4 - 10.2 mg/dL) 7.5 L Phosphorus (2.5 - 4.5 mg/dL) 3.6 Magnesium (1.6 - 2.3 mg/dL) 2.0 Total Bilirubin (0.2 - 1.3 mg/dL) 0.9 AST (17 - 59 U/L) 18 ALT (21 - 72 U/L) 26 Albumin (3.5 - 5.0 g/dL) 2.1 L Prealbumin (17.6 - 36.0 mg/dL) 14.7 L Hematology CBC w Diff MAN DIFF ORDERED WBC (4.8 - 10.8 /CUMM) 10.0 RBC (4.70 - 6.10 /CUMM) 3.12 L Hgb (14.0 - 18.0 G/DL) 9.0 L Hct (42 - 52 %) 28.0 L MCV (80.0 - 94.0 FL) 89.8 MCH (27.0 - 31.0 PG) 28.8 RDW (11.5 - 14.5 %) 20.4 H Plt Count (130 - 400 /CUMM) 204 MPV (7.4 - 10.4 FL) 8.8 Gran % (42.2 - 75.2 %) 61.7 Lymphocytes % (20.5 - 51.1 %) 27.3 Monocytes % (1.7 - 9.3 %) 10.5 H Eosinophils % (0 - 5 %) 0.2 Basophils % (0.0 - 2.0 %) 0.3 Absolute Granulocytes (1.4 - 6.5 /CUMM) 6.2 Segmented Neutrophils (42.2 - 75.2 %) 61 Band Neutrophils (0.0 - 5.0 %) 6 H Absolute Lymphocytes (1.2 - 3.4 /CUMM) 2.7 Lymphocytes (20.5 - 51.1 %) 22 Monocytes (1.7 - 9.3 %) 11 H Absolute Monocytes (0.10 - 0.60 /CUMM) 1.1 H Absolute Eosinophils (0.0 - 0.7 /CUMM) 0 Absolute Basophils (0.0 - 0.2 /CUMM) 0 Platelet Estimate (ADEQUATE) ADEQUATE Polychromasia 1+ Anisocytosis 1+ PUBS MCHC (33.0 - 37.0 G/DL) 32.0 L Miscellaneous Phlebotomy Draw Site LEFT RADIAL
--- NOTE | 2017-07-29 11:07 | PN- General Surgery ---
Surgical Brief Attending Note Brief Attending Note: stable overall. continued duodenal leak, contolled via gabriela drains. Continue supportive cares, especially nutrition. Givent the large amount of GI losses through drains, would recommend readministering enteric contents into feeding tube. It is too much of a metabolic stress to him to continue to lose large amounts of high protein/bilious secretions. Recommend re-feeding GABRIELA contents qshift as a bolus through jejunostomy tube.
--- NOTE | 2017-07-29 11:42 | PN- Infect Dx ---
Subjective Subjective: Intubated and awake; significant leakage in his WILLEM drains. Hemodynamically stable, off pressors. Low grade temp (100F). Review of Systems Comments: 12 points reviewed as noted, otherwise negative. Objective Last 24 Hrs of Vital Signs/I&O Vital Signs Date Time Temp Pulse Resp B/P B/P Pulse O2 O2 Flow FiO2 Mean Ox Delivery Rate 07/29 1107 80 90/50 07/29 0835 35 07/29 0800 94 Ventilator 30% 07/29 0800 98.4 70 18 90/50 94 Ventilator 30% 07/29 0645 35 07/29 0400 94 Ventilator 35% 07/29 0258 35 07/29 0103 35 07/29 0000 93 Ventilator 35% 07/29 0000 98.5 69 17 116/60 93 Ventilator 35% 07/28 2250 35 07/28 2209 69 142/66 07/28 2000 97 Ventilator 35% 07/28 1949 35 07/28 1701 35 07/28 1600 99.9 69 20 140/60 96 Ventilator 35% 07/28 1600 96 Ventilator 35% 07/28 1446 35 07/28 1157 94 Ventilator 30% 07/28 1150 35 Intake & Output 07/29 1600 07/29 0800 07/29 0000 Intake Total 975.1 1038 Output Total 1125 1000 Balance -149.9 38 Intake, IV 295.1 274 Intake, Oral 0 0 Intake, Other 80 209 Intake, Tube 600 555 Feeding Number 2 2 Bowel Movements Output, 425 600 Drainage Output, 100 50 Gastric Drainage Output, Urine 600 350 Physical Exam Other Physical Findings: He is awake and alert on the ventilator, elev BMI HEENT; AT/sclera anicteric Neck No YOON Lungs are clear Heart regular rhythm with no murmur Abdomen is mildly distended, tender to palpation diffusely, with positive bowel sounds; purulent appearing drainage expressed from the inferior aspect of the incision; WILLEM drains remain in place with significant output Extremities 1+ edema all 4 extremities; PICC remains in place in the right upper extremity with no inflammation at the site Duvall catheter remains in place Neuro Awake and alert. He is now following commands. Results Last 24 Hours of Lab Results: Laboratory Tests 07/29 07/29 0610 0410 Blood Gas pH (7.35 - 7.45 PH) 7.52 H pCO2 (35 - 45 TORR) 35 pO2 (80 - 100 TORR) 79 L HCO3 (21 - 28 MEQ/L) 28 ABG O2 Sat (Measured) (>96.0 %) 95.0 L P-50 (Temp Corrected) N Carboxyhemoglobin (1.5 - 5.0 %) 0.3 L O2 Concentration % .35 Respiration Rate (BPM) 10 O2 Delivery Method VENT Vent Mode A/C Expiratory Pressure (CMH2O/P) 5 Tidal Volume (CC) 500 Chemistry Sodium (137 - 145 mmol/L) 142 Potassium (3.5 - 5.1 mmol/L) 4.3 Chloride (98 - 107 mmol/L) 105 Carbon Dioxide (22 - 30 mmol/L) 30 Anion Gap (5 - 16) 7 BUN (9 - 20 mg/dL) 29 H Creatinine (0.7 - 1.2 mg/dL) 0.9 Estimated GFR (>60 ml/min) > 60 Glucose (65 - 99 mg/dL) 164 H Calcium (8.4 - 10.2 mg/dL) 7.5 L Phosphorus (2.5 - 4.5 mg/dL) 3.6 Magnesium (1.6 - 2.3 mg/dL) 2.0 Total Bilirubin (0.2 - 1.3 mg/dL) 0.9 AST (17 - 59 U/L) 18 ALT (21 - 72 U/L) 26 Albumin (3.5 - 5.0 g/dL) 2.1 L Prealbumin (17.6 - 36.0 mg/dL) 14.7 L Hematology CBC w Diff MAN DIFF ORDERED WBC (4.8 - 10.8 /CUMM) 10.0 RBC (4.70 - 6.10 /CUMM) 3.12 L Hgb (14.0 - 18.0 G/DL) 9.0 L Hct (42 - 52 %) 28.0 L MCV (80.0 - 94.0 FL) 89.8 MCH (27.0 - 31.0 PG) 28.8 RDW (11.5 - 14.5 %) 20.4 H Plt Count (130 - 400 /CUMM) 204 MPV (7.4 - 10.4 FL) 8.8 Gran % (42.2 - 75.2 %) 61.7 Lymphocytes % (20.5 - 51.1 %) 27.3 Monocytes % (1.7 - 9.3 %) 10.5 H Eosinophils % (0 - 5 %) 0.2 Basophils % (0.0 - 2.0 %) 0.3 Absolute Granulocytes (1.4 - 6.5 /CUMM) 6.2 Segmented Neutrophils (42.2 - 75.2 %) 61 Band Neutrophils (0.0 - 5.0 %) 6 H Absolute Lymphocytes (1.2 - 3.4 /CUMM) 2.7 Lymphocytes (20.5 - 51.1 %) 22 Monocytes (1.7 - 9.3 %) 11 H Absolute Monocytes (0.10 - 0.60 /CUMM) 1.1 H Absolute Eosinophils (0.0 - 0.7 /CUMM) 0 Absolute Basophils (0.0 - 0.2 /CUMM) 0 Platelet Estimate (ADEQUATE) ADEQUATE Polychromasia 1+ Anisocytosis 1+ PUBS MCHC (33.0 - 37.0 G/DL) 32.0 L Miscellaneous Phlebotomy Draw Site LEFT RADIAL Last 24 Hours of Les Results: Patient : LUIS HENDERSON Acct: [id number] DR: Booker RODRÍGUEZ,Trey Birthdate: [birth year] Age/Sex: 76/M Unit: [id number] Loc: [facility] 106 Status : ADM IN SPEC #: [id number] CARMEN: 07/26/17 STATUS: COMP RECD: 07/26/171323 SUBM DR: Vielka RODRÍGUEZ,Erick SOURCE: LOWER RESP ENTR: 07/26/17-[address]: Hanh Loyd MD SPDESC: JEOVANNY Barron MD,Trey Tolliver MD ORDERED: LOWER RESPIRATO Procedure Result Patient : LUIS HENDERSON Acct: [id number] DR: Booker RODRÍGUEZ,Trey Birthdate: [birth year] Age/Sex: 76/M Unit: [id number] Loc: [facility] 106- Status : ADM IN SPEC #: [id number] CARMEN: 07/18/171420 STATUS: COMP RECD: 07/18/1715[address] SUBM [address]: Stephan RODRÍGUEZ, Claudia SOURCE: BODY FLUID ENTR: 07/18/17-[address]: Hanh Loyd MD SPDESC: NIGEL Douglas MD,Cayden Barron MD,Ian Cornejo ORDERED: BODY FLD CULTUR COMMENT: ADDITIONAL INFORMATION: PLEASE SEND CULTURE OF WILLEM DRAIN FLUIDS Recent Imaging Studies: SERVICE DATE: 07/29/17 EXAM TYPE: RAD - XRY-PORTABLE CHEST XRAY EXAMINATION: XR PORTABLE CHEST CLINICAL INFORMATION: Endotracheal tube position COMPARISON: 07/28/2017 TECHNIQUE: Portable frontal view of the chest was obtained. FINDINGS: Endotracheal tube tip is unchanged in positioning a 4.4 cm above the kika. Right upper extremity PICC with catheter tip not well seen but at least be on the mid SVC. Enteric tube seen to the level of the mid to distal esophagus, however underpenetration of the x-ray beam limits evaluation distally. Left chest pacer. Median sternotomy wires. Mediastinal surgical clips. EKG leads project over the chest. No interval change in the appearance of the lungs which are hypoinflated. Dense retrocardiac consolidation is unchanged. Minimal consolidation at the right lung base is unchanged. No significant pleural effusion. No pneumothorax. The cardiomediastinal silhouette is unchanged with mild cardiomegaly. IMPRESSION: Stable examination. Endotracheal tube tip 4.4 cm above the kika. Bibasilar atelectasis and/or consolidation, left greater than right. No significant pleural effusion. No pneumothorax. DICTATED BY: Margie Zarate MD DATE/TIME DICTATED:07/29/17802 CRM DEVELOPER:AMEE DATE/TIME TRANSCRIBED:07/29/17802 CONFIDENTIAL, DO NOT COPY WITHOUT APPROPRIATE AUTHORIZATION. Assessment/Plan Impression: 76-year-old man with a history of diabetes, coronary artery disease, status post CABG, paroxysmal atrial fibrillation, on Tikosyn but no anticoagulation, status post pacemaker/AICD, COPD, with obstructive sleep apnea, maintained on CPAP, GI bleed, BPH, osteoarthritis, venous insufficiency, status post right hip replacement Condition remains poor, status post reintubation for worsening of his respiratory status 3 days ago. He remains afebrile (on steroids) with a normal white blood cell count on Daptomycin Day 9 and Meropenem Day 13 for VRE and respectively Enterobacter isolated from the OR cultures following a perforated duodenal ulcer 20 days ago, with his hospital course complicated by an ongoing enteric leak despite a return to the OR for a duodenal repair 13 days ago. His recent CT scan of the abdomen and pelvis did not reveal any evidence of a collection, though he does have persistent drainage from the inferior aspect of his incision. Suggestion: 1. Continue Daptomycin Day 9/14 and Meropenem Day 13/14. 2. Monitor CBC/BMP. 3. Repeat sputum cx; previously grew mold; obtain aspergillus antigen in blood.
--- NOTE | 2017-07-29 15:55 | PN- Cardiology ---
Subjective Subjective: Remains intubated and sedated. Continued duodenal leak, contolled via gabriela drains. Hemodynamically stable off pressors. Objective Vital Signs and I&Os Vital Signs Date Time Temp Pulse Resp B/P B/P Pulse O2 O2 Flow FiO2 Mean Ox Delivery Rate 07/29 1335 35 07/29 1200 35 07/29 1107 80 90/50 07/29 0835 35 07/29 0800 94 Ventilator 30% 07/29 0800 98.4 70 18 90/50 94 Ventilator 30% 07/29 0645 35 07/29 0400 94 Ventilator 35% 07/29 0258 35 07/29 0103 35 07/29 0000 93 Ventilator 35% 07/29 0000 98.5 69 17 116/60 93 Ventilator 35% 07/28 2250 35 07/28 2209 69 142/66 07/28 2000 97 Ventilator 35% 07/28 1949 35 07/28 1701 35 07/28 1600 99.9 69 20 140/60 96 Ventilator 35% 07/28 1600 96 Ventilator 35% Intake & Output 07/29 1600 07/29 0800 07/29 0000 07/28 1600 07/28 0800 07/28 0000 Intake Total 975.1 1038 2035 094 8042 Output Total 1125 1000 1275 1000 1110 Balance -149.9 38 -84 -99 -86 Intake, IV 295.1 274 405 280 396 Intake, Oral 0 0 0 Intake, Other 80 209 Intake, Tube 600 555 586 540 563 Feeding Intake, Tube 200 81 65 Irrigant Number 2 2 0 0 0 Bowel Movements Output, 425 600 575 550 610 Drainage Output, 100 50 50 0 100 Gastric Drainage Output, Urine 600 350 650 450 400 Physical Exam: Well-developed, morbidly obese elderly male who is intubated sedated. Neck: No JVD, no bruits. Lungs: Clear to auscultation anteriorly. Heart: S1, S2 with grade 2/6 systolic murmur. Abdomen: Mildly distended, positive bowel sounds, mild tenderness to palpation. Reluctant drainage from the inferior aspect of his abdominal incision. JVP drains in place with large output. . Extremities: trace edema. Assessment/Plan Assessment/Plan [id number] w/ hx of morbid obesity, LIAM on CPAP, COPD, HTN, HLD, DM, CAD/ICM (s/ p IMI in 1998, CABG 4 w/ WHITE to LAD and individual SVGs to Dx, OM, PDA & MAZE) , and recurrent PAF who presented in an unkempt state via ambulance w/ UTI & subsequently had a perforation of a duodenal ulcer for which he underwent surgery (Fabrizio patch) on 07/09/2017 with worsening clinical status requiring return to the OR on 07/16/2017 for exploratory laparotomy and suture repair duodenal ulcer with Fabrizio patch. His electrocardiograms reveal properly functioning pacemaker rhythm with underlying atrial fibrillation, an indeterminate age inferior wall myocardial infarction on non-paced tracings, and on tracings from last Tuesday evidence of fusion beats in leads V4-V6, simulating an acute/recent anterolateral MO. Recommendations: * If further significant ventricular tachycardia can place on amiodarone. * Pacemaker functioning properly and should for months, even though near EOL. * Maintain potassium between 4.0-4.5 mEq per liter. * Maintain magnesium and maintain at or above 2.0 mEq per liter. * Continue to follow-up on infectious disease, critical care, endocrine, renal and surgical recommendations. * Continue DVT prophylaxis. Continue telemetry? Not applicable (In ICU.)
[2017-07-29 16:00] VITALS: BP 92/50
[2017-07-30] VITALS: BP 102/54
[2017-07-30 04:37] LABS: ABSOLUTE BASOPHIL COUNT 0 /CUMM (0.0-0.2); ABSOLUTE EOSINOPHIL COUNT 0 /CUMM (0.0-0.7); ABSOLUTE GRANULOCYTE CT 6.5 /CUMM (1.4-6.5); ABSOLUTE LYMPH COUNT 3.3 /CUMM (1.2-3.4); ABSOLUTE MONOCYTE COUNT 1.2 /CUMM (0.10-0.60); BASOPHIL % 0.3 % (0.0-2.0); EOSINOPHIL % 0.2 % (0-5); GRANULOCYTE % 59.2 % (42.2-75.2); MEAN CORPUSCULAR HGB 29.2 PG (27.0-31.0); MEAN CORPUSCULAR HGB CONC 32.7 G/DL (33.0-37.0); MEAN CORPUSCULAR VOLUME 89.3 FL (80.0-94.0); MEAN PLATELET VOLUME 8.5 FL (7.4-10.4); PLATELET COUNT 196 /CUMM (130-400); RBC DISTRIBUTION WIDTH 19.5 % (11.5-14.5); RED BLOOD CELL CT 3.03 /CUMM (4.70-6.10)
[2017-07-30 08:00] VITALS: BP 118/60
--- NOTE | 2017-07-30 08:19 | RADIOLOGY REPORT ---
EXAMINATION: XR PORTABLE CHEST CLINICAL INFORMATION: Ventilated. Check ET tube position. COMPARISON: Previous chest x-rays, most recent from yesterday. TECHNIQUE: Portable frontal view of the chest was obtained. FINDINGS: Endotracheal tube tip is 5 cm above the kika. The nasogastric tube is not well visualized. There is a right upper extremity PICC line with the tip projecting over the SVC. There is a left subclavian pacemaker defibrillator that appears unchanged. The cardiac silhouette is enlarged but stable. There may be pulmonary venous redistribution. There is bibasilar atelectasis/consolidation, left greater than right. This does not appear appreciably changed. There is no significant pleural effusion. There is no pneumothorax. IMPRESSION: Satisfactory position of endotracheal tube and right upper extremity PICC line. Tip of nasogastric tube is not seen. Stable enlargement of the cardiac silhouette. Question pulmonary venous redistribution. Bibasilar atelectasis/consolidation, left greater than right, not appreciably changed.
--- NOTE | 2017-07-30 09:26 | PN- Diabetes ---
Assessment/Plan Assessment: 76-year-old male with Hx of CAD with low ejection fraction, atrial fibrillation, AICD, previous infection of hip with prolonged antibiotic, history of peptic ulcer disease, diabetes and renal stone, was admitted for perforation of duodenum now with septic shock in ICU. He was on 3 pressors, TPN, octreotide drip and bicarb drip. His BP remained low and stress dose of steroid was initiated despite his am cortisol was 24.8. Patient is still on hydrocortisone 50 mg IV every 12 hours and octreotide drip. Patient was re-intubated on 07/26/2017. He has been off on TPN. Currently he is on tube feeding with Vital 75 mL per hour. Levemir was increased to 17 units twice a day and Novolog coverage every 4 hours was adjusted on . His blood sugars were 189, 212 and 228. Plan: 1. increase Levemir to 20 units twice a day; 2. adjust Novolog coverage every 4 hours; detail see the inpatient DM order; 3. monitor FSGs, electrolytes and vital signs; 4. continue hydrocortisone 50 mg iv every 12 hours for now; will follow. Inpatient Diabetes Orders Every 4 Hours: Bolus Insulin: Novolog < 80 mg/dl: no coverage 80-100 mg/dl: 8 units 101-120 mg/dl: 8 units 121-150 mg/dl: 8 units 151-200 mg/dl: 10 units 201-250 mg/dl: 12 units 251-300 mg/dl: 14 units 301-350 mg/dl: 16 units 351-400 mg/dl: 18 units > 400 mg/dl: 20 units Subjective Subjective: patient is awake this morning. But he is still intubated. Objective Last 24 Hrs of Vital Signs/I&O Vital Signs Date Time Temp Pulse Resp B/P B/P Pulse O2 O2 Flow FiO2 Mean Ox Delivery Rate 07/30 0901 35 07/30 0800 98.2 74 17 118/60 96 Ventilator 35% 07/30 0800 96 Ventilator 35% 07/30 0616 35 07/30 0400 95 Ventilator 35% 07/30 0243 35 07/30 0036 35 07/30 0000 93 Ventilator 35% 07/30 0000 98.9 70 16 102/54 93 Ventilator 35% 07/29 2222 35 07/298 71 103/53 07/29 2000 93 Ventilator 30% 07/29 1900 35 07/29 1645 35 07/29 1600 94 Ventilator 30% 07/29 1600 97.6 70 20 92/50 97 Ventilator 30% 07/29 1335 35 07/29 1200 35 07/29 1200 94 Ventilator 30% 07/29 1107 80 90/50 Intake & Output 07/30 1600 07/30 0800 07/30 0000 Intake Total 1020 980 Output Total 700 300 Balance 320 680 Intake, IV 301 300 Intake, Oral 0 0 Intake, Tube 654 600 Feeding Intake, Tube 65 80 Irrigant Number 1 2 Bowel Movements Output, 200 Gastric Drainage Output, Urine 500 300 Findings Pertinent Lab/Les Results: Laboratory Tests 07/30 0400 Chemistry Sodium (137 - 145 mmol/L) 141 Potassium (3.5 - 5.1 mmol/L) 3.8 Chloride (98 - 107 mmol/L) 104 Carbon Dioxide (22 - 30 mmol/L) 29 Anion Gap (5 - 16) 8 BUN (9 - 20 mg/dL) 28 H Creatinine (0.7 - 1.2 mg/dL) 0.8 Estimated GFR (>60 ml/min) > 60 Glucose (65 - 99 mg/dL) 193 H Calcium (8.4 - 10.2 mg/dL) 7.5 L Phosphorus (2.5 - 4.5 mg/dL) 3.3 Magnesium (1.6 - 2.3 mg/dL) 2.0 Total Bilirubin (0.2 - 1.3 mg/dL) 0.6 AST (17 - 59 U/L) 23 ALT (21 - 72 U/L) 34 Albumin (3.5 - 5.0 g/dL) 2.0 L Hematology CBC w Diff NO MAN DIFF REQ WBC (4.8 - 10.8 /CUMM) 11.0 H RBC (4.70 - 6.10 /CUMM) 3.03 L Hgb (14.0 - 18.0 G/DL) 8.8 L Hct (42 - 52 %) 27.0 L MCV (80.0 - 94.0 FL) 89.3 MCH (27.0 - 31.0 PG) 29.2 RDW (11.5 - 14.5 %) 19.5 H Plt Count (130 - 400 /CUMM) 196 MPV (7.4 - 10.4 FL) 8.5 Gran % (42.2 - 75.2 %) 59.2 Lymphocytes % (20.5 - 51.1 %) 29.6 Monocytes % (1.7 - 9.3 %) 10.7 H Eosinophils % (0 - 5 %) 0.2 Basophils % (0.0 - 2.0 %) 0.3 Absolute Granulocytes (1.4 - 6.5 /CUMM) 6.5 Absolute Lymphocytes (1.2 - 3.4 /CUMM) 3.3 Absolute Monocytes (0.10 - 0.60 /CUMM) 1.2 H Absolute Eosinophils (0.0 - 0.7 /CUMM) 0 Absolute Basophils (0.0 - 0.2 /CUMM) 0 PUBS MCHC (33.0 - 37.0 G/DL) 32.7 L
--- NOTE | 2017-07-30 10:12 | PN- Resident CRCU ---
Solitario RODRÍGUEZ,Gisel 07/30/17 1012: Subjective HPI/CRCU Issues: Intubated Perforated duodenal ulcer USMAN HFrEF 24 Hour Events: 98.2/70/16/ (110/60)/95% ON FIO2 35 Objective Vital Signs & I&O Last 8 Hrs of Vitals and I&O: Intake & Output 07/30 1600 Intake Total 1045.7 Output Total 550 Balance 495.7 Intake, IV 371.7 Intake, Tube 534 Feeding Intake, Tube 140 Irrigant Number 2 Bowel Movements Output, 100 Gastric Drainage Output, Urine 450 Exam General Appearance: intubated Head: atraumatic Ears, Nose, Throat: INTUBATED Neck: supple Respiratory: decreased breath sounds, crackles Cardiovascular: regular rate/rhythm Gastrointestinal: PURULENT DRAINAGE FROM 2 CM OPEN AREA BELOW DONNIE. Extremities: pedal edema Weaning Parameters NIF: 38 Minute Volume: 17.3 Resp rate: 22 Vt: 642 Heart Rate: 74 Weaning Schedule Start Time: 0845 Minute Volume: 15.4 Resp Rate: 24 Vt: 517 Heart Rate: 79 End Time: 1845 Minute Volume: 9.75 Resp Rate: 24 Vt: 510 Heart Rate: 92 Current Medications: Current Medications Sig/Buck Start time Last Medication Dose Route Stop Time Status Admin Acetaminophen 1,000 MG Q6P PRN 07/16 0530 AC 07/20 N/A 1 UNIT IV 0659 Albuterol Sulfate 3 ML EVERY 4 HRS/AWAKE 07/27 0800 AC 07/30 INH 1619 Budesonide/ 2 PUF BID 07/26 1056 AC 07/30 Formoterol Fumarate INH 0822 Carvedilol 3.125 MG BID 07/28 1000 AC 07/30 PO 1028 Daptomycin 500 MG 1130 07/29 1130 AC 07/30 IV 1147 Fentanyl Citrate 1,000 MCG Q20H 07/30 1200 AC 07/30 Dextrose/Water 250 ML IV 1147 Fentanyl Citrate 1,000 MCG Q13H 07/27 1600 DC 07/29 Dextrose/Water 250 ML IV 07/30 1159 1837 Hydrocortisone 50 MG Q12 07/25 1000 AC 07/30 Sodium Succinate IV 1027 Insulin Aspart 0 Q4 07/25 1000 AC 07/30 SC 1422 Insulin Detemir 20 UNITS BID 07/30 1000 AC 07/30 SC 1027 Insulin Detemir 17 UNITS BID 07/29 2200 DC 07/29 SC 2136 Meropenem 1 GM Q8H 07/20 1000 AC 07/30 IV 07/30 2300 1027 Nystatin 5 ML 4 TIMES/DAY 07/30 1400 AC 07/30 PO 1422 Octreotide Acetate 500 MCG Q20H 07/15 1400 AC 07/30 Dextrose/Water 500 ML IV 1422 Pantoprazole Sodium 40 MG BID 07/10 1016 AC 07/30 IV 1027 Impression/Plan Impression/Problem List Impression: This is a 76-year-old male with past medical history of CAD with HFrEF, A. fib, AICD, previous infection of the hip with prolonged antibiotic, history of peptic ulcer disease, diabetes, nephrolithiasis who was transferred to the ICU for perforation of the duodenum with septic shock S/P repair with patch. Repeated CT of the abdomen performed on 07/15 revealed free air/extravasation of contrast into the peritoneal cavity and he was taken to the OR for ex-lap and had re- repair of duodenal ulcer with Fabrizio patch. PLAN #Septic shock secondary to perforated duodenal ulcer A/P Fabrizio patch: Note WBC slightly elevated at 11.0 * D/C Meropenem 07/30 * Cont' Vubicin Day 06/18 * Follow-up on pending repeat culture results * Off pressors * Continue on fentanyl * Continue Solu-Cortef 50 mg IV every 12 * Continue Protonix IV 14 mg twice a day * Continue octreotide drip-Plan is to continue drip for duration of intubation * Surgery following * Per surgery will re-feed the WILLEM drain secretions as bolus #USMAN: RESOLVED. Cr .8 No anion gap present. The renal injury is most likely secondary to ATN due to decreased renal perfusion from septic shock. * Appreciate nephrology recommendation * Titrate vent #DM: * We will add insulin to TPN * Goal glucose between [id number] and exam * Appreciate endocrinology recommendation History of PAF on Tikosyn * Continue to hold the Tikosyn * Appreciate cardiology recomm Guarded prognosis Full code Nothing by mouth DVT prophylaxis with subcutaneous heparin Problem List: 1. Peritonitis Pain Ratin Tomorrow's Labs & Rationales: cbc icu Plan DVT/Prophylaxis: mechanical, pharmacological Trey Celeste MD 07/30/17 1012: Attending MD Review Statement Attending Sign Off Attending Cosign Statement: I have: examined this patient, reviewed avalbl EMR data, personally reviewd images, discussd w/resident/PA/ADJUNCT PSYCHOLOGY FACULTY MEMBER, discussed mgmt plan w/riya, discussed mgmt plan w/CM, discussed mgmt plan w/pt, agreed w/resident/PA/ADJUNCT PSYCHOLOGY FACULTY MEMBER, amended to note. Other Findings: I, Trey Celeste M.D. have examined this patient, reviewed available EMR data, personally reviewed images, discussed with resident/PA/ADJUNCT PSYCHOLOGY FACULTY MEMBER, discussed management plan with housestaff and nursing staff, discussed managment plan all of healthcare providers, discussed management plan with patient and/or family, agreed with resident/PA/ADJUNCT PSYCHOLOGY FACULTY MEMBER. The past history and parts of the chart have been autopopulated. Impression 76-year-old man * hypoxemic respiratory failure likely secondary to mucous plugging * resolved septic shock * Hx of atrial flutter that is now controlled * He's also been on steroids for BP support for stress dosing. Plan Respiratory -spontaneous breathing trials -no plan for extubation yet -if necessary will sedate -f/u cxr/abgs ID -f/u ID recs CVS -hemodynamically stable -off vasopressors -rate is controlled Heme -monitor cbc, coags Metabolic -ins/outs -monitor electrolytes Alimentary -TPN -octreotide gtt -f/u surgery Neuro -sedation as necessary DVT prophylaxis at all times TTS 35 min
--- NOTE | 2017-07-30 13:47 | PN- General Surgery ---
Surgical Brief Attending Note Brief Attending Note: stable. no new recommendations.
[2017-07-30 16:00] VITALS: BP 110/60
--- NOTE | 2017-07-30 16:04 | PN- Infect Dx ---
Subjective Subjective: No fever; remains intubated. Face flushed; diaphoretic. Midline abd surgical incision w/ purulent drainage. Review of Systems Comments: Limited 12 points ROS. Objective Last 24 Hrs of Vital Signs/I&O Vital Signs Date Time Temp Pulse Resp B/P B/P Pulse O2 O2 Flow FiO2 Mean Ox Delivery Rate 07/30 1415 35 07/30 1200 93 Ventilator 35% 07/30 1109 35 07/30 1028 69 122/53 07/30 0901 35 07/30 0800 98.2 74 17 118/60 96 Ventilator 35% 07/30 0800 96 Ventilator 35% 07/30 0616 35 07/30 0400 95 Ventilator 35% 07/30 0243 35 07/30 0036 35 07/30 0000 93 Ventilator 35% 07/30 0000 98.9 70 16 102/54 93 Ventilator 35% 07/29 2222 35 07/29 2138 71 103/53 07/29 2000 93 Ventilator 30% 07/29 1900 35 07/29 1645 35 07/29 1600 94 Ventilator 30% 07/29 1600 97.6 70 20 92/50 97 Ventilator 30% Intake & Output 07/30 1600 07/30 0800 07/30 0000 Intake Total 1045.7 1020 980 Output Total 550 700 300 Balance 495.7 320 680 Intake, IV 371.7 301 300 Intake, Oral 0 0 Intake, Tube 534 654 600 Feeding Intake, Tube 140 65 80 Irrigant Number 2 1 2 Bowel Movements Output, 100 200 Gastric Drainage Output, Urine 450 500 300 Physical Exam Other Physical Findings: He is awake, mechanically ventilated HEENT; AT/sclera anicteric, ETT/NGT in place Skin: face flushed; diaphoretic Neck No YOON Lungs BS diminished bases Heart S1 S2 present, no murmur Abdomen is mildly distended, with positive bowel sounds; WILLEM drains remain in place with significant output; sx incision with thick purulent drainage expressed with light palpation; R scrotal sac noted to be enlarged today Extremities + edema all 4 extremities; Right upper extremity PICC with no inflammation at the site Duvall catheter remains in place Neuro Awake and alert. Results Last 24 Hours of Lab Results: Laboratory Tests 07/30 0400 Chemistry Sodium (137 - 145 mmol/L) 141 Potassium (3.5 - 5.1 mmol/L) 3.8 Chloride (98 - 107 mmol/L) 104 Carbon Dioxide (22 - 30 mmol/L) 29 Anion Gap (5 - 16) 8 BUN (9 - 20 mg/dL) 28 H Creatinine (0.7 - 1.2 mg/dL) 0.8 Estimated GFR (>60 ml/min) > 60 Glucose (65 - 99 mg/dL) 193 H Calcium (8.4 - 10.2 mg/dL) 7.5 L Phosphorus (2.5 - 4.5 mg/dL) 3.3 Magnesium (1.6 - 2.3 mg/dL) 2.0 Total Bilirubin (0.2 - 1.3 mg/dL) 0.6 AST (17 - 59 U/L) 23 ALT (21 - 72 U/L) 34 Albumin (3.5 - 5.0 g/dL) 2.0 L Hematology CBC w Diff NO MAN DIFF REQ WBC (4.8 - 10.8 /CUMM) 11.0 H RBC (4.70 - 6.10 /CUMM) 3.03 L Hgb (14.0 - 18.0 G/DL) 8.8 L Hct (42 - 52 %) 27.0 L MCV (80.0 - 94.0 FL) 89.3 MCH (27.0 - 31.0 PG) 29.2 RDW (11.5 - 14.5 %) 19.5 H Plt Count (130 - 400 /CUMM) 196 MPV (7.4 - 10.4 FL) 8.5 Gran % (42.2 - 75.2 %) 59.2 Lymphocytes % (20.5 - 51.1 %) 29.6 Monocytes % (1.7 - 9.3 %) 10.7 H Eosinophils % (0 - 5 %) 0.2 Basophils % (0.0 - 2.0 %) 0.3 Absolute Granulocytes (1.4 - 6.5 /CUMM) 6.5 Absolute Lymphocytes (1.2 - 3.4 /CUMM) 3.3 Absolute Monocytes (0.10 - 0.60 /CUMM) 1.2 H Absolute Eosinophils (0.0 - 0.7 /CUMM) 0 Absolute Basophils (0.0 - 0.2 /CUMM) 0 PUBS MCHC (33.0 - 37.0 G/DL) 32.7 L Last 24 Hours of Frank Results: SPEC #: [id number] CARMEN: 07/30/1750 STATUS: RES RECD: 07/30/[address]: Abdulkadir RODRÍGUEZ,[facility] SOURCE: LOWER RESP ENTR: 07/29/17-[address]: Evert RODRÍGUEZ, Hanh [facility]: [employer]UM[employer] Beatrice RODRÍGUEZ,Ian Celeste MD,Trey ORDERED: LOWER RESPIRATO Procedure Result > GRAM STAIN Final 07/30/17-1056 WHITE BLOOD CELLS FEW GRAM POSITIVE COCCI RARE LOWER RESPIRATORY CULTURE - PENDING Patient : LUIS HENDERSON Acct: [id number] DR: Booker RODRÍGUEZ,Trey Birthdate: [birth year] Age/Sex: 76/M Unit: [id number] Loc: [facility] 106- Status : ADM IN SPEC #: [id number] CARMEN: 07/18/171420 STATUS: COMP RECD: 07/18/171539 SUBM DR: Stephan RODRÍGUEZ, [facility] SOURCE: BODY FLUID ENTR: 07/18/17-[address]: Evert RODRÍGUEZ, Hanh [facility]: NIGEL Douglas MD,Cayden Barron MD,Ian Cornejo ORDERED: BODY FLD CULTUR COMMENT: ADDITIONAL INFORMATION: PLEASE SEND CULTURE OF WILLEM DRAIN FLUIDS Procedure Result > GRAM STAIN Final 07/19/17-1101 WHITE BLOOD CELLS MODERATE GRAM POSITIVE COCCI FEW IN IPAIRS AND CHAINS > BODY FLUID CULTURE Final 07/20/17-1312 Moderate growth of: VANC RESIST ENTEROCOCCUS PERLIMINARY REPORTED TO SINGH NEAL AT 1231 07/19/17 LAB.SVCY. FINAL : REPORTED TO LAUREN AT 1312 07/20/17 LAB.SVCY 1. VANC RESIST ENTEROCOCCUS RX AB ------ -- AMPICILLIN R VANCOMYCIN R SPEC #: [id number] CARMEN: 07/15/17 STATUS: COMP RECD: 07/16/[address] S[facility]: BODY FLUID ENTR: 07/16/[address]: Evert [facility]RÍGUEZ, [facility] PELVIC [facility]U Misael RODRÍGUEZ,Cayden Barron MD,Ian Cornejo ORDERED: BODY FLD CULTUR COMMENT: PERITONEAL FLUID RECEIVED ~10CC OF BLOODY VISCOUS FLUID IN STERILE CUP Procedure Result > GRAM STAIN Final 07/16/17-1141 WHITE BLOOD CELLS MODERATE GRAM POSITIVE COCCI FEW GRAM NEGATIVE RODS MANY > BODY FLUID CULTURE Final 07/20/17-1108 Heavy growth of: 1.ENTEROBACTER AEROGENES 2. VANC RESIST ENTEROCOCCUS ISOLATED Called to/Readback by JOSE ROBERTO SHAFER by LAB.SHELBY 07/19/17 1037 Preliminary Called to/Readback by JACQUELINE by LAB.LH 07/17/17 1012 E.AEROGENE VRE VRE RX AB RX AB RX AB ------ -- ------ -- ------ -- DAPTO FRANK S AMPICILLIN R R CEFAZOLIN R AMOX/CLAV AUGM R AMP/SULB-UNASYN R CEFOXITIN R CEFTAZIDIME R CEFTRIAXONE I CIPROFLOXACIN S GENTAMICIN S MEROPENEM S TRIMETH/SULFA S VANCOMYCIN R 1. ENTEROBACTER AEROGENES RX AB ------ -- AMPICILLIN R CEFAZOLIN R AMOXICILLIN/CLAVULINIC ACID R AMPICILLIN/SULBACTAM R CEFOXITIN R CEFTAZIDIME R CEFTRIAXONE I CIPROFLOXACIN S GENTAMICIN S MEROPENEM S TRIMETHOPRIM/SULFAMETHOXAZOLE S 2. VANC RESIST ENTEROCOCCUS RX AB ------ -- DAPTOMYCIN FRANK S 2. VANC RESIST ENTEROCOCCUS RX AB ------ -- AMPICILLIN R VANCOMYCIN R Recent Imaging Studies: CLINICAL INFORMATION: Ventilated. Check ET tube position. COMPARISON: Previous chest x-rays, most recent from yesterday. TECHNIQUE: Portable frontal view of the chest was obtained. FINDINGS: Endotracheal tube tip is 5 cm above the kika. The nasogastric tube is not well visualized. There is a right upper extremity PICC line with the tip projecting over the SVC. There is a left subclavian pacemaker defibrillator that appears unchanged. The cardiac silhouette is enlarged but stable. There may be pulmonary venous redistribution. There is bibasilar atelectasis/consolidation, left greater than right. This does not appear appreciably changed. There is no significant pleural effusion. There is no pneumothorax. IMPRESSION: Satisfactory position of endotracheal tube and right upper extremity PICC line. Tip of nasogastric tube is not seen. Stable enlargement of the cardiac silhouette. Question pulmonary venous redistribution. Bibasilar atelectasis/consolidation, left greater than right, not appreciably changed. DICTATED BY: Ronny RODRÍGUEZ,Emma Figueroa DATE/TIME DICTATED:07/30/17808 FRAMING MANAGER:AMEE DATE/TIME TRANSCRIBED:07/30/17808 Assessment/Plan Impression: 76-year-old man with a history of diabetes, coronary artery disease, status post CABG, paroxysmal atrial fibrillation, on Tikosyn but no anticoagulation, status post pacemaker/AICD, COPD, with obstructive sleep apnea, maintained on CPAP, GI bleed, BPH, osteoarthritis, venous insufficiency, status post right hip replacement Resp failure; planned for SBT. He remains afebrile (on steroids) while treated w/ Daptomycin Day 10 and Meropenem Day 14 for VRE and respectively Enterobacter isolated from the OR cultures following a perforated duodenal ulcer 3 weeks ago (of note cx from 07/18 growing only VRE). Mild leukocytosis Hospital course complicated further by an ongoing enteric leak despite a return to the OR for a duodenal repair 2 weeks ago. His recent CT scan of the abdomen and pelvis did not reveal any evidence of a collection. Suggestion: 1. Continue Daptomycin Day 10/14 and Meropenem Day 14/14; repeat CXR persistent lung infiltrates; sputum cx from 07/29 pnd (preliminary sputum gm stain GPC; of note Daptomycin ineffective in lung infection; might need changing abx to linezolid depending on final sputum cx results); call if spiking fever. Plan to extend meropenem therapy pending sx wound culture results 2. Monitor CBC/BMP. Albumin level weekly. 3. Nutrition per team.
--- NOTE | 2017-07-30 16:26 | PN- Cardiology ---
Subjective Subjective: The patient remains intubated and sedated. He is hemodynamically stable off pressors. Objective Vital Signs and I&Os Vital Signs Date Time Temp Pulse Resp B/P B/P Pulse O2 O2 Flow FiO2 Mean Ox Delivery Rate 07/30 1415 35 07/30 1200 93 Ventilator 35% 07/30 1109 35 07/30 1028 69 122/53 07/30 0901 35 07/30 0800 98.2 74 17 118/60 96 Ventilator 35% 07/30 0800 96 Ventilator 35% 07/30 0616 35 07/30 0400 95 Ventilator 35% 07/30 0243 35 07/30 0036 35 07/30 0000 93 Ventilator 35% 07/30 0000 98.9 70 16 102/54 93 Ventilator 35% 07/29 2222 35 07/29 2138 71 103/53 07/29 2000 93 Ventilator 30% 07/29 1900 35 07/29 1645 35 Intake & Output 07/30 1600 07/30 0800 07/30 0000 07/29 1600 07/29 0800 07/29 0000 Intake Total 1045.7 2340 634 8807 975.1 1038 Output Total 550 199 844 1238 1125 1000 Balance 495.7 320 680 0 -149.9 38 Intake, IV 371.7 301 300 300 295.1 274 Intake, Oral 0 0 0 0 Intake, Other 80 209 Intake, Tube 534 654 600 600 600 555 Feeding Intake, Tube 140 65 80 180 Irrigant Number 2 1 2 2 2 Bowel Movements Output, 340 425 600 Drainage Output, 100 200 100 50 Gastric Drainage Output, Urine 450 500 300 740 600 350 Physical Exam: Gen: NAD HEENT: normal Lungs: clear to auscultation, normal resp. effort Heart: S1-S2, 2/6 systolic murmur Abdomen: Soft, nontender, no masses Extremities: No clubbing, cyanosis, or edema. Neuro: He to be intubated and sedated Current Medications: Current Medications Sig/Buck Start time Last Medication Dose Route Stop Time Status Admin Acetaminophen 1,000 MG Q6P PRN 07/16 0530 AC 07/20 N/A 1 UNIT IV 0659 Albuterol Sulfate 3 ML EVERY 4 HRS/AWAKE 07/27 0800 AC 07/30 INH 1619 Budesonide/ 2 PUF BID 07/26 1056 AC 07/30 Formoterol Fumarate INH 0822 Carvedilol 3.125 MG BID 07/28 1000 AC 07/30 PO 1028 Daptomycin 500 MG 1130 07/29 1130 AC 07/30 IV 1147 Fentanyl Citrate 1,000 MCG Q20H 07/30 1200 AC 07/30 Dextrose/Water 250 ML IV 1147 Fentanyl Citrate 1,000 MCG Q13H 07/27 1600 DC 07/29 Dextrose/Water 250 ML IV 07/30 1159 1837 Hydrocortisone 50 MG Q12 07/25 1000 AC 07/30 Sodium Succinate IV 1027 Insulin Aspart 0 Q4 07/25 1000 AC 07/30 SC 1422 Insulin Detemir 20 UNITS BID 07/30 1000 AC 07/30 SC 1027 Insulin Detemir 17 UNITS BID 07/29 2200 DC 07/29 SC 2136 Meropenem 1 GM Q8H 07/20 1000 AC 07/30 IV 07/30 2300 1027 Nystatin 5 ML 4 TIMES/DAY 07/30 1400 AC 07/30 PO 1422 Octreotide Acetate 500 MCG Q20H 07/15 1400 AC 07/30 Dextrose/Water 500 ML IV 1422 Pantoprazole Sodium 40 MG BID 07/10 1016 AC 07/30 IV 1027 Results Last 48 Hrs of Labs/Mics: Laboratory Tests 07/30/17 0400: Anion Gap 8, Estimated GFR > 60, Glucose 193 H, Calcium 7.5 L, Phosphorus 3.3, Magnesium 2.0, Total Bilirubin 0.6, AST 23, ALT 34, Albumin 2.0 L, CBC w Diff NO MAN DIFF REQ, RBC 3.03 L, MCV 89.3, MCH 29.2, RDW 19.5 H, MPV 8.5, Gran % 59.2, Lymphocytes % 29.6, Monocytes % 10.7 H, Eosinophils % 0.2, Basophils % 0.3, Absolute Granulocytes 6.5, Absolute Lymphocytes 3.3, Absolute Monocytes 1.2 H, Absolute Eosinophils 0, Absolute Basophils 0, PUBS MCHC 32.7 L 07/29/17 0610: pH 7.52 H, pCO2 35, pO2 79 L, HCO3 28, ABG O2 Sat (Measured) 95.0 L, P-50 ( Temp Corrected) N, Carboxyhemoglobin 0.3 L, O2 Concentration % .35, Respiration Rate 10, O2 Delivery Method VENT, Vent Mode A/C, Expiratory Pressure 5, Tidal Volume 500, Phlebotomy Draw Site LEFT RADIAL 07/29/17 0500: Aspergillus Antibody Pending 07/29/17 0410: Anion Gap 7, Estimated GFR > 60, Glucose 164 H, Calcium 7.5 L, Phosphorus 3.6, Magnesium 2.0, Total Bilirubin 0.9, AST 18, ALT 26, Albumin 2.1 L, Prealbumin 14.7 L, CBC w Diff MAN DIFF ORDERED, RBC 3.12 L, MCV 89.8, MCH 28.8, RDW 20.4 H, MPV 8.8, Gran % 61.7, Lymphocytes % 27.3, Monocytes % 10.5 H, Eosinophils % 0.2, Basophils % 0.3, Absolute Granulocytes 6.2, Segmented Neutrophils 61, Band Neutrophils 6 H, Absolute Lymphocytes 2.7, Lymphocytes 22, Monocytes 11 H, Absolute Monocytes 1.1 H, Absolute Eosinophils 0, Absolute Basophils 0, Platelet Estimate ADEQUATE, Polychromasia 1+, Anisocytosis 1+, PUBS MCHC 32.0 L Recent Imaging Studies: Chest x-ray: Satisfactory position of endotracheal tube and right upper extremity PICC line. Tip of nasogastric tube is not seen. Stable enlargement of the cardiac silhouette. Question pulmonary venous redistribution. Bibasilar atelectasis/consolidation, left greater than right, not appreciably changed. Assessment/Plan Assessment/Plan Assessment: 1. Coronary artery disease 2. Ischemic cardiomyopathy 3. Paroxysmal atrial fibrillation 4. Ventricular tachycardia 5. Perforated duodenal ulcer, status post repair Plan: * Continue current cardiac medications. * Monitor for further arrhythmias. Continue telemetry? Yes
[2017-07-31] VITALS: BP 116/58
[2017-07-31 05:11] LABS: ABSOLUTE BASOPHIL COUNT 0 /CUMM (0.0-0.2); ABSOLUTE EOSINOPHIL COUNT 0 /CUMM (0.0-0.7); ABSOLUTE GRANULOCYTE CT 5.4 /CUMM (1.4-6.5); ABSOLUTE LYMPH COUNT 2.6 /CUMM (1.2-3.4); BASOPHIL % 0.4 % (0.0-2.0); EOSINOPHIL % 0.2 % (0-5); GRANULOCYTE % 59.6 % (42.2-75.2); HEMATOCRIT 27.6 % (42-52); MEAN CORPUSCULAR HGB 29.2 PG (27.0-31.0); MEAN CORPUSCULAR HGB CONC 32.5 G/DL (33.0-37.0); MEAN CORPUSCULAR VOLUME 89.7 FL (80.0-94.0); MEAN PLATELET VOLUME 8.8 FL (7.4-10.4); PLATELET COUNT 190 /CUMM (130-400); RBC DISTRIBUTION WIDTH 20.2 % (11.5-14.5); RED BLOOD CELL CT 3.08 /CUMM (4.70-6.10)
[2017-07-31 05:47] LABS: WHITE BLOOD CELL COUNT 9.1 /CUMM (4.8-10.8)
--- NOTE | 2017-07-31 07:17 | RADIOLOGY REPORT ---
EXAMINATION: XR PORTABLE CHEST CLINICAL INFORMATION: Check ET tube position COMPARISON: Previous chest x-ray from yesterday TECHNIQUE: Portable frontal view of the chest was obtained. FINDINGS: The endotracheal tube is 3.5 cm above the kika. A nasogastric tube is not seen. There is a right upper extremity PICC line with tip projecting over the SVC. There is a left subclavian pacemaker defibrillator. The cardiac silhouette is enlarged but stable. There are median sternotomy wires. There is left lower lobe atelectasis/consolidation similar to yesterday's exam. The right lung is clear. There may there is blunting of the left costophrenic angle questionable for a small left pleural effusion. There is no right pleural effusion. There is no pneumothorax. IMPRESSION: Satisfactory position of support line and tube. Stable enlargement of cardiac silhouette. Stable left lower lobe atelectasis/consolidation.
[2017-07-31 08:00] VITALS: BP 116/66
--- NOTE | 2017-07-31 08:39 | PN- Resident CRCU ---
Herminia Morrow 07/31/17 0838: Subjective HPI/CRCU Issues: Intubated Perforated duodenal ulcer USMAN HFrEF 24 Hour Events: No overnight events reports continues to require ventilation CXR: Satisfactory position of support line and tube. Stable enlargement of cardiac silhouette. Stable left lower lobe atelectasis/consolidation. Objective Vital Signs & I&O Last 8 Hrs of Vitals and I&O: Laboratory Tests 07/31 0419 Chemistry Sodium (137 - 145 mmol/L) 140 Potassium (3.5 - 5.1 mmol/L) 3.8 Chloride (98 - 107 mmol/L) 103 Carbon Dioxide (22 - 30 mmol/L) 31 H Anion Gap (5 - 16) 5 BUN (9 - 20 mg/dL) 28 H Creatinine (0.7 - 1.2 mg/dL) 0.8 Estimated GFR (>60 ml/min) > 60 Glucose (65 - 99 mg/dL) 154 H Calcium (8.4 - 10.2 mg/dL) 7.5 L Phosphorus (2.5 - 4.5 mg/dL) 3.4 Magnesium (1.6 - 2.3 mg/dL) 2.0 Total Bilirubin (0.2 - 1.3 mg/dL) 0.4 AST (17 - 59 U/L) 26 ALT (21 - 72 U/L) 37 Albumin (3.5 - 5.0 g/dL) 2.0 L Hematology CBC w Diff NO MAN DIFF REQ WBC (4.8 - 10.8 /CUMM) 9.1 RBC (4.70 - 6.10 /CUMM) 3.08 L Hgb (14.0 - 18.0 G/DL) 9.0 L Hct (42 - 52 %) 27.6 L MCV (80.0 - 94.0 FL) 89.7 MCH (27.0 - 31.0 PG) 29.2 RDW (11.5 - 14.5 %) 20.2 H Plt Count (130 - 400 /CUMM) 190 MPV (7.4 - 10.4 FL) 8.8 Gran % (42.2 - 75.2 %) 59.6 Lymphocytes % (20.5 - 51.1 %) 28.9 Monocytes % (1.7 - 9.3 %) 10.9 H Eosinophils % (0 - 5 %) 0.2 Basophils % (0.0 - 2.0 %) 0.4 Absolute Granulocytes (1.4 - 6.5 /CUMM) 5.4 Absolute Lymphocytes (1.2 - 3.4 /CUMM) 2.6 Absolute Monocytes (0.10 - 0.60 /CUMM) 1.0 H Absolute Eosinophils (0.0 - 0.7 /CUMM) 0 Absolute Basophils (0.0 - 0.2 /CUMM) 0 PUBS MCHC (33.0 - 37.0 G/DL) 32.5 L Microbiology Date/Time Procedure - Status Source Growth 07/30 1924 Culture & Sensitivity - RES TRUNK GRAM NEGATIVE RODS 07/30 1924 Gram Stain - RES TRUNK Vital Signs Date Time Temp Pulse Resp B/P B/P Pulse O2 O2 Flow FiO2 Mean Ox Delivery Rate 07/31 1200 95 Ventilator 35% 07/31 1104 35 07/31 0944 69 140/73 07/31 0824 40 07/31 0800 97.2 69 13 116/66 97 Ventilator 40% 07/31 0800 97 Ventilator 40% 07/31 0616 40 07/31 0400 96 Ventilator 40% 07/31 0349 40 07/31 0346 45 07/31 0219 45 07/31 0216 35 07/31 0000 98.7 69 14 116/58 97 Ventilator 35% 07/31 0000 35 Ventilator 35% 07/30 2300 35 07/30 2157 69 129/60 07/30 2022 35 07/30 2000 93 Ventilator 35% 07/30 1627 35 07/30 1600 98.2 70 16 110/60 95 Ventilator 35% 07/30 1600 94 Ventilator 35% 07/30 1415 35 Intake & Output 07/31 1600 07/31 0800 07/31 0000 Intake Total 971.7 1066 Output Total 1100 1400 Balance -128.3 -334 Intake, IV 335.7 353 Intake, Oral 0 0 Intake, Other 0 Intake, Tube 556 543 Feeding Intake, Tube 80 170 Irrigant Number 2 3 Bowel Movements Output, 200 700 Drainage Output, 100 50 Gastric Drainage Output, Urine 800 650 Exam General Appearance: awake, intubated Respiratory: decreased breath sounds Cardiovascular: regular rate/rhythm Extremities: b/l pitting edema Current Medications: Current Medications Sig/Buck Start time Last Medication Dose Route Stop Time Status Admin Acetaminophen 1,000 MG Q6P PRN 07/16 0530 07/20 N/A 1 UNIT IV 0659 Albuterol Sulfate 3 ML EVERY 4 HRS/AWAKE 07/27 0800 AC 07/31 INH 1208 Budesonide/ 2 PUF BID 07/26 1056 AC 07/31 Formoterol Fumarate INH 1017 Carvedilol 3.125 MG BID 07/28 1000 AC 07/31 PO 0944 Daptomycin 500 MG 1130 07/29 1130 AC 07/31 IV 1214 Fentanyl Citrate 1,000 MCG Q13H 07/31 2000 AC Dextrose/Water 250 ML IV Fentanyl Citrate 1,000 MCG Q20H 07/30 1200 AC 07/31 Dextrose/Water 250 ML IV 07/31 1959 0646 Hydrocortisone 50 MG Q12 07/25 1000 AC 07/31 Sodium Succinate IV 0946 Insulin Aspart 0 Q4 07/25 1000 AC 07/31 SC 0945 Insulin Detemir 20 UNITS BID 07/30 1000 AC 07/31 SC 0943 Meropenem 1 GM Q8H 07/20 1000 DC 07/30 IV 07/30 2300 1732 Norepinephrine 4 MG Q24H 07/30 1930 DC Sodium Chloride 250 ML IV Nystatin 5 ML 4 TIMES/DAY 07/30 1400 AC 07/31 PO 0944 Octreotide Acetate 500 MCG Q20H 07/15 1400 AC 07/31 Dextrose/Water 500 ML IV 1026 Pantoprazole Sodium 40 MG BID 07/10 1016 AC 07/31 IV 0945 CXR Findings: Satisfactory position of support line and tube. Stable enlargement of cardiac silhouette. Stable left lower lobe atelectasis/consolidation. Impression/Plan Impression/Problem List Impression: 76-year-old gentleman with past medical history of CAD with HFrEF, A. fib, AICD, previous infection of the hip with prolonged antibiotic, history of peptic ulcer disease, diabetes, nephrolithiasis who was transferred to the ICU for perforation of the duodenum with septic shock S/P repair with patch. Repeat CT of the abdomen on 07/15 revealed free air/extravasation of contrast into the peritoneal cavity s/p ex-lap and had re-repair of duodenal ulcer with Fabrizio patch. PLAN #Respiratory failure continued on AC mode, RR 10/TV 500/FiO2 35/peep 5 #Septic shock secondary to perforated duodenal ulcer A/P Fabrizio patch: afebrile overnight,WBC normalized completed course of Meropenem 07/30 Continue Daptomycin Day 07/19 trunk culture showing gr neg rods Off pressors on fentanyl Continue Solu-Cortef 50 mg IV every 12 Continue Protonix IV 14 mg twice a day Continue octreotide drip-Plan is to continue drip for duration of intubation Surgery and Endo following, appreciate recomendations Per surgery will re-feed the WILLEM drain secretions as bolus ( spoke to surgical PA regarding how much to re-feed, nutrition recomendation replenish a total fo 250 ml q4. Also spoke to surgical PA regarding the sutures eroding into his anterior nasal septum) #USMAN: RESOLVED. Cr .8 No anion gap present. The renal injury is most likely secondary to ATN due to decreased renal perfusion from septic shock. Appreciate nephrology recommendation #DM: Insulin added to TPN Goal glucose between [id number] and exam Appreciate endocrinology recommendations #History of PAF on Tikosyn Continue to hold the Tikosyn Appreciate cardiology recomm Guarded prognosis Full code Nothing by mouth, on tube feeds DVT prophylaxis with subcutaneous heparin Problem List: 1. Acute renal failure 2. Peritonitis Pain Ratin Tomorrow's Labs & Rationales: icu Plan DVT/Prophylaxis: mechanical, pharmacological Trey Celeste MD 07/31/17 1053: Attending MD Review Statement Attending Sign Off Attending Cosign Statement: I have: examined this patient, reviewed avalbl EMR data, personally reviewd images, discussd w/resident/PA/HISTORY PROFESSOR, discussed mgmt plan w/riya, discussed mgmt plan w/CM, discussed mgmt plan w/pt, agreed w/resident/PA/HISTORY PROFESSOR, amended to note. Other Findings: ITrey M.D. have examined this patient, reviewed available EMR data, personally reviewed images, discussed with resident/PA/HISTORY PROFESSOR, discussed management plan with housestaff and nursing staff, discussed managment plan all of healthcare providers, discussed management plan with patient and/or family, agreed with resident/PA/HISTORY PROFESSOR. The past history and parts of the chart have been autopopulated. Impression 76-year-old man * hypoxemic respiratory failure likely secondary to mucous plugging * resolved septic shock * Hx of atrial flutter that is now controlled * He's also been on steroids for BP support for stress dosing. Plan Respiratory -spontaneous breathing trials -no plan for extubation yet -if necessary will sedate -f/u cxr/abgs ID -f/u ID recs CVS -hemodynamically stable -off vasopressors -rate is controlled Heme -monitor cbc, coags Metabolic -ins/outs -monitor electrolytes Alimentary -TPN -octreotide gtt -f/u surgery Neuro -sedation as necessary DVT prophylaxis at all times TTS 35 min
--- NOTE | 2017-07-31 11:56 | PN- Diabetes ---
Assessment/Plan Assessment: 76-year-old male with Hx of CAD with low ejection fraction, atrial fibrillation, AICD, previous infection of hip with prolonged antibiotic, history of peptic ulcer disease, diabetes and renal stone, was admitted for perforation of duodenum now with septic shock in ICU. He was on 3 pressors, TPN, octreotide drip and bicarb drip. His BP remained low and stress dose of steroid was initiated despite his am cortisol was 24.8. Patient is still on hydrocortisone 50 mg IV every 12 hours and octreotide drip. Patient was re-intubated on 07/26/2017. He has been off on TPN. Currently he is on tube feeding with Vital 75 mL per hour. Levemir was increased to 20 units twice a day and Novolog coverage every 4 hours was adjusted on . His blood sugars were 145, 169, 160, 176 and 247. Plan: continue the current insulin regimen for now; continue Hydrocortisone 50 mg iv every 12 hours; monitor FSGs and electrolytes. will follow. Subjective Subjective: patient remains intubated. Objective Last 24 Hrs of Vital Signs/I&O Vital Signs Date Time Temp Pulse Resp B/P B/P Pulse O2 O2 Flow FiO2 Mean Ox Delivery Rate 07/31 1104 35 07/31 0944 69 140/73 07/31 0824 40 07/31 0800 97.2 69 13 116/66 97 Ventilator 40% 07/31 0800 97 Ventilator 40% 07/31 0616 40 07/31 0400 96 Ventilator 40% 07/31 0349 40 07/31 0346 45 07/31 0219 45 07/31 0216 35 07/31 0000 98.7 69 14 116/58 97 Ventilator 35% 07/31 0000 35 Ventilator 35% 07/30 2300 35 07/30 2157 69 129/60 07/30 2022 35 07/30 2000 93 Ventilator 35% 07/30 1627 35 07/30 1600 98.2 70 16 110/60 95 Ventilator 35% 07/30 1600 94 Ventilator 35% 07/30 1415 35 07/30 1200 93 Ventilator 35% Intake & Output 07/31 1600 07/31 0800 07/31 0000 Intake Total 971.7 1066 Output Total 1100 1400 Balance -128.3 -334 Intake, IV 335.7 353 Intake, Oral 0 0 Intake, Other 0 Intake, Tube 556 543 Feeding Intake, Tube 80 170 Irrigant Number 2 3 Bowel Movements Output, 200 700 Drainage Output, 100 50 Gastric Drainage Output, Urine 800 650 Findings Pertinent Lab/Les Results: Laboratory Tests 07/31 0419 Chemistry Sodium (137 - 145 mmol/L) 140 Potassium (3.5 - 5.1 mmol/L) 3.8 Chloride (98 - 107 mmol/L) 103 Carbon Dioxide (22 - 30 mmol/L) 31 H Anion Gap (5 - 16) 5 BUN (9 - 20 mg/dL) 28 H Creatinine (0.7 - 1.2 mg/dL) 0.8 Estimated GFR (>60 ml/min) > 60 Glucose (65 - 99 mg/dL) 154 H Calcium (8.4 - 10.2 mg/dL) 7.5 L Phosphorus (2.5 - 4.5 mg/dL) 3.4 Magnesium (1.6 - 2.3 mg/dL) 2.0 Total Bilirubin (0.2 - 1.3 mg/dL) 0.4 AST (17 - 59 U/L) 26 ALT (21 - 72 U/L) 37 Albumin (3.5 - 5.0 g/dL) 2.0 L Hematology CBC w Diff NO MAN DIFF REQ WBC (4.8 - 10.8 /CUMM) 9.1 RBC (4.70 - 6.10 /CUMM) 3.08 L Hgb (14.0 - 18.0 G/DL) 9.0 L Hct (42 - 52 %) 27.6 L MCV (80.0 - 94.0 FL) 89.7 MCH (27.0 - 31.0 PG) 29.2 RDW (11.5 - 14.5 %) 20.2 H Plt Count (130 - 400 /CUMM) 190 MPV (7.4 - 10.4 FL) 8.8 Gran % (42.2 - 75.2 %) 59.6 Lymphocytes % (20.5 - 51.1 %) 28.9 Monocytes % (1.7 - 9.3 %) 10.9 H Eosinophils % (0 - 5 %) 0.2 Basophils % (0.0 - 2.0 %) 0.4 Absolute Granulocytes (1.4 - 6.5 /CUMM) 5.4 Absolute Lymphocytes (1.2 - 3.4 /CUMM) 2.6 Absolute Monocytes (0.10 - 0.60 /CUMM) 1.0 H Absolute Eosinophils (0.0 - 0.7 /CUMM) 0 Absolute Basophils (0.0 - 0.2 /CUMM) 0 PUBS MCHC (33.0 - 37.0 G/DL) 32.5 L
--- NOTE | 2017-07-31 14:09 | PN- General Surgery ---
Surgical Brief Attending Note Brief Attending Note: stable. continue cares. bacitracin to nasogastric tube suture.
--- NOTE | 2017-07-31 15:06 | PN- Infect Dx ---
Subjective Subjective: Intubated. No fever. Duvall patent. ETT/NGT in place. Appears clinically improved Review of Systems Comments: 12 points reviewed as noted, otherwise negative. Objective Last 24 Hrs of Vital Signs/I&O Vital Signs Date Time Temp Pulse Resp B/P B/P Pulse O2 O2 Flow FiO2 Mean Ox Delivery Rate 07/31 1425 35 07/31 1200 95 Ventilator 35% 07/31 1104 35 07/31 0944 69 140/73 07/31 0824 40 07/31 0800 97.2 69 13 116/66 97 Ventilator 40% 07/31 0800 97 Ventilator 40% 07/31 0616 40 07/31 0400 96 Ventilator 40% 07/31 0349 40 07/31 0346 45 07/31 0219 45 07/31 0216 35 07/31 0000 98.7 69 14 116/58 97 Ventilator 35% 07/31 0000 35 Ventilator 35% 07/30 2300 35 07/30 2157 69 129/60 07/30 2022 35 07/30 2000 93 Ventilator 35% 07/30 1627 35 07/30 1600 98.2 70 16 110/60 95 Ventilator 35% 07/30 1600 94 Ventilator 35% Intake & Output 07/31 1600 07/31 0800 07/31 0000 Intake Total 971.7 1066 Output Total 1100 1400 Balance -128.3 -334 Intake, IV 335.7 353 Intake, Oral 0 0 Intake, Other 0 Intake, Tube 556 543 Feeding Intake, Tube 80 170 Irrigant Number 2 3 Bowel Movements Output, 200 700 Drainage Output, 100 50 Gastric Drainage Output, Urine 800 650 Physical Exam Other Physical Findings: Mechanically ventilated HEENT; AT/sclera anicteric, ETT/NGT in place Neck: No YOON Lungs BS diminished bases Heart S1 S2 present, no murmur Abdomen is mildly distended, with positive bowel sounds; WILLEM drains remain in place with significant output; midline sx incision with scant drainage Extremities + edema all 4 extremities; Right upper extremity PICC with no inflammation at the site Duvall catheter remains in place Neuro Awake and alert. Results Last 24 Hours of Lab Results: Laboratory Tests 07/319 Chemistry Sodium (137 - 145 mmol/L) 140 Potassium (3.5 - 5.1 mmol/L) 3.8 Chloride (98 - 107 mmol/L) 103 Carbon Dioxide (22 - 30 mmol/L) 31 H Anion Gap (5 - 16) 5 BUN (9 - 20 mg/dL) 28 H Creatinine (0.7 - 1.2 mg/dL) 0.8 Estimated GFR (>60 ml/min) > 60 Glucose (65 - 99 mg/dL) 154 H Calcium (8.4 - 10.2 mg/dL) 7.5 L Phosphorus (2.5 - 4.5 mg/dL) 3.4 Magnesium (1.6 - 2.3 mg/dL) 2.0 Total Bilirubin (0.2 - 1.3 mg/dL) 0.4 AST (17 - 59 U/L) 26 ALT (21 - 72 U/L) 37 Albumin (3.5 - 5.0 g/dL) 2.0 L Hematology CBC w Diff NO MAN DIFF REQ WBC (4.8 - 10.8 /CUMM) 9.1 RBC (4.70 - 6.10 /CUMM) 3.08 L Hgb (14.0 - 18.0 G/DL) 9.0 L Hct (42 - 52 %) 27.6 L MCV (80.0 - 94.0 FL) 89.7 MCH (27.0 - 31.0 PG) 29.2 RDW (11.5 - 14.5 %) 20.2 H Plt Count (130 - 400 /CUMM) 190 MPV (7.4 - 10.4 FL) 8.8 Gran % (42.2 - 75.2 %) 59.6 Lymphocytes % (20.5 - 51.1 %) 28.9 Monocytes % (1.7 - 9.3 %) 10.9 H Eosinophils % (0 - 5 %) 0.2 Basophils % (0.0 - 2.0 %) 0.4 Absolute Granulocytes (1.4 - 6.5 /CUMM) 5.4 Absolute Lymphocytes (1.2 - 3.4 /CUMM) 2.6 Absolute Monocytes (0.10 - 0.60 /CUMM) 1.0 H Absolute Eosinophils (0.0 - 0.7 /CUMM) 0 Absolute Basophils (0.0 - 0.2 /CUMM) 0 PUBS MCHC (33.0 - 37.0 G/DL) 32.5 L Last 24 Hours of Les Results: SPEC #: [id number] CARMEN: 07/30/17 STATUS: RES RECD: 07/30/[address]: Solitario RODRÍGUEZ, [facility] SOURCE: TRUNK ENTR: 07/30/[address]: Evert RODRÍGUEZ, Hanh WILLAMS: ABDOMEN Beatrice RODRÍGUEZ,Trey Tolliver MD ORDERED: TRUNK CULTURE COMMENT: TYPE OF SPECIMEN: DEEP Procedure Result > GRAM STAIN Final 07/31/17 WHITE BLOOD CELLS MANY GRAM POSITIVE COCCI MODERATE GRAM NEGATIVE RODS MANY SPEC #: [id number] CARMEN: 07/30/17 STATUS: RES RECD: 07/30/[address]: Abdulkadir RODRÍGUEZ,[facility] SOURCE: LOWER RESP ENTR: 07/29/[address]: Evert RODRÍGUEZ, Hanh WILLAMSC: SPUTUMTRAP Beatrice RODRÍGUEZ,Trey Tolliver MD ORDERED: LOWER RESPIRATO Procedure Result > GRAM STAIN Final 07/30/17 WHITE BLOOD CELLS FEW GRAM POSITIVE COCCI RARE > LOWER RESPIRATORY CULTURE Preliminary 07/31/17 Scant growth of Mixed jose david after 1 day Recent Imaging Studies: CXR 07/31/17 IMPRESSION: Satisfactory position of support line and tube. Stable enlargement of cardiac silhouette. Stable left lower lobe atelectasis/consolidation. DICTATED BY: Ronny RODRÍGUEZ,Emma Figueroa DATE/TIME DICTATED:07/31/17709 TAX MANAGER CPA:AMEE Assessment/Plan Impression: 76-year-old man with a history of diabetes, coronary artery disease, status post CABG, paroxysmal atrial fibrillation, on Tikosyn but no anticoagulation, status post pacemaker/AICD, COPD, with obstructive sleep apnea, maintained on CPAP, GI bleed, BPH, osteoarthritis, venous insufficiency, status post right hip replacement Resp failure; planned for SBT. He remains afebrile (on steroids) while treated for secondary peritonitis w/ Daptomycin Day 11 and Meropenem Day 15 for VRE and respectively Enterobacter isolated from the OR cultures following a perforated duodenal ulcer over 3 weeks ago (of note cx from 07/18 growing only VRE; preliminary wound cx 07/30 + GNR). Mild leukocytosis Hospital course complicated further by an ongoing enteric leak despite a return to the OR for a duodenal repair 2 weeks ago. His recent CT scan of the abdomen and pelvis did not reveal any evidence of a collection. Suggestion: 1. Continue Daptomycin and Meropenem; Meropenem therapy extended pending sx wound culture results. 2. Monitor CBC/BMP. Albumin level weekly. 3. Nutrition per team. 3. Nutrition per team.
[2017-07-31 16:00] VITALS: BP 128/60
--- NOTE | 2017-07-31 17:12 | PN- Cardiology ---
Subjective Subjective: Continues to be intubated and sedated. compliance monitor reveals atrial fibrillation with ventricular pacing. He is hemodynamically stable. Objective Vital Signs and I&Os Vital Signs Date Time Temp Pulse Resp B/P B/P Pulse O2 O2 Flow FiO2 Mean Ox Delivery Rate 07/31 1639 35 07/31 1425 35 07/31 1200 95 Ventilator 35% 07/31 1104 35 07/31 0944 69 140/73 07/31 0824 40 07/31 0800 97.2 69 13 116/66 97 Ventilator 40% 07/31 0800 97 Ventilator 40% 07/31 0616 40 07/31 0400 96 Ventilator 40% 07/31 0349 40 07/31 0346 45 07/31 0219 45 07/31 0216 35 07/31 0000 98.7 69 14 116/58 97 Ventilator 35% 07/31 0000 35 Ventilator 35% 07/30 2300 35 07/30 2157 69 129/60 07/30 2022 35 07/30 2000 93 Ventilator 35% Intake & Output 07/31 1600 07/31 0800 07/31 0000 07/30 1600 07/30 0800 07/30 0000 Intake Total 1169 971.7 1066 1045.7 1020 980 Output Total 400 1100 1400 550 700 300 Balance 769 -128.3 -334 495.7 320 680 Intake, IV 459 335.7 353 371.7 301 300 Intake, Oral 0 0 0 0 0 Intake, Other 0 Intake, Tube 570 556 543 534 654 600 Feeding Intake, Tube 140 80 170 140 65 80 Irrigant Number 1 2 3 2 1 2 Bowel Movements Output, 200 700 Drainage Output, 100 100 50 100 200 Gastric Drainage Output, Urine 300 800 650 450 500 300 Physical Exam: Gen: NAD HEENT: normal Lungs: clear to auscultation, normal resp. effort Heart: S1-S2, 2/6 systolic murmur Abdomen: Soft, nontender, no masses Extremities: No clubbing, cyanosis, or edema. Neuro: He to be intubated and sedated Current Medications: Current Medications Sig/Buck Start time Last Medication Dose Route Stop Time Status Admin Acetaminophen 1,000 MG Q6P PRN 07/16 0530 AC 07/20 N/A 1 UNIT IV 0659 Albuterol Sulfate 3 ML EVERY 4 HRS/AWAKE 07/27 08 AC 07/31 INH 1638 Budesonide/ 2 PUF BID 07/26 1056 AC 07/31 Formoterol Fumarate INH 1017 Carvedilol 3.125 MG BID 07/28 1000 AC 07/31 PO 0944 Daptomycin 500 MG 1130 07/29 1130 AC 07/31 IV 1214 Fentanyl Citrate 1,000 MCG Q13H 07/31 2000 AC Dextrose/Water 250 ML IV Fentanyl Citrate 1,000 MCG Q20H 07/30 1200 AC 07/31 Dextrose/Water 250 ML IV 07/31 1959 0646 Hydrocortisone 50 MG Q12 07/25 1000 AC 07/31 Sodium Succinate IV 0946 Insulin Aspart 0 Q4 07/25 1000 AC 07/31 SC 1441 Insulin Detemir 20 UNITS BID 07/30 1000 AC 07/31 SC 0943 Meropenem 1 GM Q8H 07/20 1000 DC 07/30 IV 07/30 2300 1732 Norepinephrine 4 MG Q24H 07/30 1930 DC Sodium Chloride 250 ML IV Nystatin 5 ML 4 TIMES/DAY 07/30 1400 AC 07/31 PO 1441 Octreotide Acetate 500 MCG Q20H 07/15 1400 AC 07/31 Dextrose/Water 500 ML IV 1026 Pantoprazole Sodium 40 MG BID 07/10 1016 AC 07/31 IV 0945 Results Last 48 Hrs of Labs/Mics: Laboratory Tests 07/31/179: Anion Gap 5, Estimated GFR > 60, Glucose 154 H, Calcium 7.5 L, Phosphorus 3.4, Magnesium 2.0, Total Bilirubin 0.4, AST 26, ALT 37, Albumin 2.0 L, CBC w Diff NO MAN DIFF REQ, RBC 3.08 L, MCV 89.7, MCH 29.2, RDW 20.2 H, MPV 8.8, Gran % 59.6, Lymphocytes % 28.9, Monocytes % 10.9 H, Eosinophils % 0.2, Basophils % 0.4, Absolute Granulocytes 5.4, Absolute Lymphocytes 2.6, Absolute Monocytes 1.0 H, Absolute Eosinophils 0, Absolute Basophils 0, PUBS MCHC 32.5 L 07/30/17 0400: Anion Gap 8, Estimated GFR > 60, Glucose 193 H, Calcium 7.5 L, Phosphorus 3.3, Magnesium 2.0, Total Bilirubin 0.6, AST 23, ALT 34, Albumin 2.0 L, CBC w Diff NO MAN DIFF REQ, RBC 3.03 L, MCV 89.3, MCH 29.2, RDW 19.5 H, MPV 8.5, Gran % 59.2, Lymphocytes % 29.6, Monocytes % 10.7 H, Eosinophils % 0.2, Basophils % 0.3, Absolute Granulocytes 6.5, Absolute Lymphocytes 3.3, Absolute Monocytes 1.2 H, Absolute Eosinophils 0, Absolute Basophils 0, PUBS MCHC 32.7 L Assessment/Plan Assessment/Plan Assessment: 1. Coronary artery disease 2. Ischemic cardiomyopathy 3. Paroxysmal atrial fibrillation 4. Ventricular tachycardia 5. Perforated duodenal ulcer, status post repair Plan: * Continue current cardiac medications. * Monitor for further arrhythmias. * Ventilatory support as needed. Continue telemetry? Yes
[2017-07-31 23:00] VITALS: BP 144/64
[2017-08-01 05:27] LABS: HEMATOCRIT 29.1 % (42-52); MEAN CORPUSCULAR HGB CONC 32.4 G/DL (33.0-37.0); MEAN CORPUSCULAR VOLUME 89.7 FL (80.0-94.0); MEAN PLATELET VOLUME 8.6 FL (7.4-10.4); PLATELET COUNT 193 /CUMM (130-400); RBC DISTRIBUTION WIDTH 20.2 % (11.5-14.5); RED BLOOD CELL CT 3.24 /CUMM (4.70-6.10)
[2017-08-01 08:00] VITALS: BP 120/62
--- NOTE | 2017-08-01 08:37 | RADIOLOGY REPORT ---
EXAMINATION: CR PORTABLE CHEST CLINICAL INFORMATION: Respiratory failure. Intubated patient. COMPARISON: Several prior chest x-rays, most recent of which is dated 07/31/2017. TECHNIQUE: Portable AP semierect view of the chest was obtained. FINDINGS: Endotracheal tube tip is approximately 3.7 cm above the kika. Enteric tube courses into the abdomen with tip not included. Right subclavian PICC line extends into the deep SVC. Right atrial pacer lead and right ventricular ICD lead are in place. Multiple EKG leads overlie the chest. The cardiomediastinal silhouette remains enlarged, unchanged. Bibasilar opacities are seen, consistent with consolidation or atelectasis with associated small pleural effusions. No vascular congestion, pneumothorax. Bony structures are unremarkable. IMPRESSION: 1. Line and tubes tubes in place as discussed above. 2. No change in bibasilar atelectasis or consolidation with associated small pleural effusions.
--- NOTE | 2017-08-01 10:14 | PN- Infect Dx ---
Subjective Subjective: Afebrile without complaints Objective Last 24 Hrs of Vital Signs/I&O Vital Signs Date Time Temp Pulse Resp B/P B/P Pulse O2 O2 Flow FiO2 Mean Ox Delivery Rate 08/01 0816 35 08/01 0655 35 08/01 0400 95 Ventilator 35% 08/01 0346 35 08/01 0203 35 08/01 0000 95 Ventilator 35% 07/31 2300 97.6 69 22 144/64 95 Ventilator 35% 07/31 2258 98.6 69 18 147/66 07/31 2208 35 07/31 2000 97 Ventilator 35% 07/31 1935 35 07/31 1639 35 07/31 1600 98.0 69 18 128/60 97 Ventilator 35% 07/31 1600 96 Ventilator 35% 07/31 1425 35 07/31 1200 95 Ventilator 35% 07/31 1104 35 Intake & Output 08/01 1600 08/01 0800 08/01 0000 Intake Total 5695 1030.4 Output Total 685 715 Balance 5010 315.4 Intake, IV 291 350.4 Intake, Tube 5404 680 Feeding Number 1 Bowel Movements Output, 415 Drainage Output, 100 100 Gastric Drainage Output, Urine 585 200 Physical Exam Other Physical Findings: He is awake and alert, appearing comfortable on the ventilator in no acute distress Lungs are clear Heart regular rhythm with no murmur Abdomen is distended, nontender with positive bowel sounds; incision with packing in place, with purulent drainage expressed; WILLEM drains remain in place with significant output from drain #2 Extremities 1+ edema of all extremities; PICC in the right upper extremity with no inflammation at the site Duvall catheter remains in place Results Last 24 Hours of Lab Results: Laboratory Tests 08/01 0500 Chemistry Sodium (137 - 145 mmol/L) 141 Potassium (3.5 - 5.1 mmol/L) 3.9 Chloride (98 - 107 mmol/L) 104 Carbon Dioxide (22 - 30 mmol/L) 29 Anion Gap (5 - 16) 8 BUN (9 - 20 mg/dL) 29 H Creatinine (0.7 - 1.2 mg/dL) 0.7 Estimated GFR (>60 ml/min) > 60 Glucose (65 - 99 mg/dL) 151 H Calcium (8.4 - 10.2 mg/dL) 7.5 L Phosphorus (2.5 - 4.5 mg/dL) 3.3 Magnesium (1.6 - 2.3 mg/dL) 1.9 Total Bilirubin (0.2 - 1.3 mg/dL) 0.6 AST (17 - 59 U/L) 37 ALT (21 - 72 U/L) 42 Albumin (3.5 - 5.0 g/dL) 2.1 L Hematology CBC w Diff MAN DIFF ORDERED WBC (4.8 - 10.8 /CUMM) 12.0 H RBC (4.70 - 6.10 /CUMM) 3.24 L Hgb (14.0 - 18.0 G/DL) 9.4 L Hct (42 - 52 %) 29.1 L MCV (80.0 - 94.0 FL) 89.7 MCH (27.0 - 31.0 PG) 29.0 RDW (11.5 - 14.5 %) 20.2 H Plt Count (130 - 400 /CUMM) 193 MPV (7.4 - 10.4 FL) 8.6 Segmented Neutrophils (42.2 - 75.2 %) 71 Band Neutrophils (0.0 - 5.0 %) 4 Lymphocytes (20.5 - 51.1 %) 13 L Monocytes (1.7 - 9.3 %) 9 Eosinophils (0 - 5.0 %) 2 Basophils (0.0 - 2.0 %) 1 Nucleated RBCs (0.0 - 0.0 /100WBC) 1 H Platelet Estimate (ADEQUATE) ADEQUATE Polychromasia 1+ Hypochromic-Microcytic 1+ Poikilocytosis 2+ Basophilic Stippling 1+ Ovalocytes 1+ Stomatocytes 1+ Elliptocytes FEW PUBS MCHC (33.0 - 37.0 G/DL) 32.4 L Other Body Source Fld Total RBCs Counted (%) 100 Last 24 Hours of Les Results: Sputum culture July 26 positive for mold Sputum culture July 30 mixed jose david "Trunk" culture July 30 positive for Escherichia coli sensitive to all antibiotics tested Recent Imaging Studies: Chest x-ray August 01, personally reviewed, reveals no change in the bibasilar densities Assessment/Plan Impression: Stable with temperatures remaining normal (on "stress" steroids) but with his white blood cell count slightly elevated today, of unclear significance, now on Daptomycin alone, Day 12, with the Meropenem discontinued 2 days ago after 2 weeks of treatment for VRE and Enterobacter isolated from the OR cultures following a perforated duodenal ulcer 23 days ago, with his hospital course complicated by an ongoing enteric leak despite a return to the OR for a duodenal repair 16 days ago. His recent CT scan of the abdomen and pelvis did not reveal any evidence of a collection, though he does have persistent purulent drainage from the inferior aspect of his incision, with the culture growing Escherichia coli, of unclear significance. His sputum culture grew mold, which likely represents contamination or colonization, particularly given his with stable respiratory status, and should not require treatment. Suggestion: 1. Consider repeat CT of the abdomen and pelvis to rule out an intervening collection (would discuss with surgery first) 2. Discontinue Daptomycin and follow off antibiotics
--- NOTE | 2017-08-01 10:17 | PN- General Surgery ---
Surgical Brief Attending Note Brief Attending Note: stable. continue cares as ordered. drain output slowly decreasing. abx per ID. vent wean per ICU.
--- NOTE | 2017-08-01 10:28 | PN- Cardiology ---
Subjective Subjective: Evidence of weekend reviewed. Remains intubated and sedated. Objective Vital Signs and I&Os Vital Signs Date Time Temp Pulse Resp B/P B/P Pulse O2 O2 Flow FiO2 Mean Ox Delivery Rate 08/01 1002 69 120/54 08/01 0816 35 08/01 0655 35 08/01 0400 95 Ventilator 35% 08/01 0346 35 08/01 0203 35 08/01 0000 95 Ventilator 35% 07/31 2300 97.6 69 22 144/64 95 Ventilator 35% 07/31 2258 98.6 69 18 147/66 07/31 2208 35 07/31 2000 97 Ventilator 35% 07/31 1935 35 07/31 1639 35 07/31 1600 98.0 69 18 128/60 97 Ventilator 35% 07/31 1600 96 Ventilator 35% 07/31 1425 35 07/31 1200 95 Ventilator 35% 07/31 1104 35 Intake & Output 08/01 1600 08/01 0800 08/01 0000 07/31 1600 07/31 0800 07/31 0000 Intake Total 5695 1030.4 1169 971.7 1066 Output Total 685 776 911 4566 1400 Balance 5010 315.4 769 -128.3 -334 Intake, IV 291 350.4 459 335.7 353 Intake, Oral 0 0 0 Intake, Other 0 Intake, Tube 5404 680 570 556 543 Feeding Intake, Tube 140 80 170 Irrigant Number 1 1 2 3 Bowel Movements Output, 415 200 700 Drainage Output, 100 100 100 100 50 Gastric Drainage Output, Urine 585 200 300 800 650 Physical Exam: Well-developed, morbidly obese elderly male who remains intubated. Vital signs: See above. Neck: No JVD, no bruits. Lungs: Clear to auscultation bilaterally. Heart: S1, S2 (regular) grade 1-2/6 systolic murmur. Abdomen: Nontender, positive bowel sounds, distended. Purulent discharge from incision site that is packed. Significant output WILLEM drains. Extremities: Extremities with 1+ edema. Current Medications: Current Medications Sig/Buck Start time Last Medication Dose Route Stop Time Status Admin Acetaminophen 1,000 MG Q6P PRN 07/16 0530 AC 07/20 N/A 1 UNIT IV 0659 Albuterol Sulfate 3 ML EVERY 4 HRS/AWAKE 07/27 0800 AC 08/01 INH 0805 Budesonide/ 2 PUF BID 07/26 1056 AC 08/01 Formoterol Fumarate INH 0816 Carvedilol 3.125 MG BID 07/28 1000 AC 08/01 PO 1002 Daptomycin 500 MG 1130 07/29 1130 AC 07/31 IV 1214 Fentanyl Citrate 1,000 MCG Q13H 07/31 2000 AC 07/31 Dextrose/Water 250 ML IV 2038 Fentanyl Citrate 1,000 MCG Q20H 07/30 1200 DC 07/31 Dextrose/Water 250 ML IV 07/31 1959 0646 Hydrocortisone 50 MG Q12 07/25 1000 AC 08/01 Sodium Succinate IV 1001 Insulin Aspart 0 Q4 07/25 1000 AC 08/01 SC 1002 Insulin Detemir 20 UNITS BID 07/30 1000 AC 08/01 SC 1002 Nystatin 5 ML 4 TIMES/DAY 07/30 1400 AC 08/01 PO 1002 Octreotide Acetate 500 MCG Q20H 07/15 1400 AC 08/01 Dextrose/Water 500 ML IV 0634 Pantoprazole Sodium 40 MG BID 07/10 1016 AC 08/01 IV 1001 Results Last 48 Hrs of Labs/Mics: Laboratory Tests 08/01/17 0500: Anion Gap 8, Estimated GFR > 60, Glucose 151 H, Calcium 7.5 L, Phosphorus 3.3, Magnesium 1.9, Total Bilirubin 0.6, AST 37, ALT 42, Albumin 2.1 L, CBC w Diff MAN DIFF ORDERED, RBC 3.24 L, MCV 89.7, MCH 29.0, RDW 20.2 H, MPV 8.6, Segmented Neutrophils 71, Band Neutrophils 4, Lymphocytes 13 L, Monocytes 9, Eosinophils 2, Basophils 1, Nucleated RBCs 1 H, Platelet Estimate ADEQUATE, Polychromasia 1+, Hypochromic-Microcytic 1+, Poikilocytosis 2+, Basophilic Stippling 1+, Ovalocytes 1+, Stomatocytes 1+, Elliptocytes FEW, PUBS MCHC 32.4 L, Fld Total RBCs Counted 100 07/31/17 0419: Anion Gap 5, Estimated GFR > 60, Glucose 154 H, Calcium 7.5 L, Phosphorus 3.4, Magnesium 2.0, Total Bilirubin 0.4, AST 26, ALT 37, Albumin 2.0 L, CBC w Diff NO MAN DIFF REQ, RBC 3.08 L, MCV 89.7, MCH 29.2, RDW 20.2 H, MPV 8.8, Gran % 59.6, Lymphocytes % 28.9, Monocytes % 10.9 H, Eosinophils % 0.2, Basophils % 0.4, Absolute Granulocytes 5.4, Absolute Lymphocytes 2.6, Absolute Monocytes 1.0 H, Absolute Eosinophils 0, Absolute Basophils 0, PUBS MCHC 32.5 L Recent Imaging Studies: CXR (08/01/2017): 1. Line and tubes tubes in place as discussed above. 2. No change in bibasilar atelectasis or consolidation with associated small pleural effusions. Assessment/Plan Assessment/Plan [id number] w/ hx of morbid obesity, LIAM on CPAP, COPD, HTN, HLD, DM, CAD/ICM (s/ p IMI in 1998, CABG 4 w/ WHITE to LAD and individual SVGs to Dx, OM, PDA & MAZE) , and recurrent PAF who presented in an unkempt state via ambulance w/ UTI & subsequently had a perforation of a duodenal ulcer for which he underwent surgery (Fabrizio patch) on 07/09/2017 with worsening clinical status requiring return to the OR on 07/16/2017 for exploratory laparotomy and suture repair duodenal ulcer with Fabrizio patch. His electrocardiograms reveal properly functioning pacemaker rhythm with underlying atrial fibrillation, an indeterminate age inferior wall myocardial infarction on non-paced tracings, and on tracings from last Tuesday evidence of fusion beats in leads V4-V6, simulating an acute/recent anterolateral NM. Hemodynamically stable over the weekend. Recommendations: * If further significant ventricular tachycardia can place on amiodarone. * Pacemaker functioning properly and should for months, even though near EOL. * Maintain potassium between 4.0-4.5 mEq per liter. * Maintain magnesium and maintain at or above 2.0 mEq per liter. * Continue to follow-up on infectious disease, critical care, endocrine, renal and surgical recommendations. * Continue DVT prophylaxis. Continue telemetry? Not applicable (In ICU.)
--- NOTE | 2017-08-01 10:32 | PN- Resident CRCU ---
Solitario RODRÍGUEZ,Gisel 08/01/17 1032: Subjective HPI/CRCU Issues: perforate duodenal ulcer VRE + Intubated 24 Hour Events: Tmax 98.6, RR 18-22, HR 69, BP 120/62-144/64, sat 100% No overnight events. Objective Vital Signs & I&O Last 8 Hrs of Vitals and I&O: Intake & Output 08/01 1600 Intake Total 1780 Output Total 1550 Balance 230 Intake, IV 355 Intake, Tube 555 Feeding Intake, Tube 870 Irrigant Output, 750 Drainage Output, 100 Gastric Drainage Output, Urine 700 Exam General Appearance: intubated Head: atraumatic, normal appearance Neck: normal inspection Respiratory: crackles Cardiovascular: regular rate/rhythm Gastrointestinal: Distended with adgoberto in place. There is an ulcer about 3cm below dagoberto. THere is copious purulent drainage from ulcer. WILLEM drain x2 with dark serous drainage. Extremities: pedal edema, swelling Weaning Parameters NIF: 40 Minute Volume: 9 Resp rate: 16 Vt: 600 Heart Rate: 69 Weaning Schedule Start Time: 1935 Minute Volume: 9 Resp Rate: 16 Vt: 600 Heart Rate: 69 End Time: 2200 Minute Volume: 9.90 Resp Rate: 18 Vt: 700 Heart Rate: 69 Impression/Plan Impression/Problem List Impression: This is a 76-year-old male with past medical history of CAD with HFrEF, A. fib, AICD, previous infection of the hip with prolonged antibiotic, history of peptic ulcer disease, diabetes, nephrolithiasis who was transferred to the ICU for perforation of the duodenum with septic shock S/P repair with patch. Repeated CT of the abdomen performed on 07/15 revealed free air/extravasation of contrast into the peritoneal cavity and he was taken to the OR for ex-lap and had re- repair of duodenal ulcer with Fabrizio patch. PLAN #Septic shock secondary to perforated duodenal ulcer A/P Fabrizio patch: Micro is shoiwng the body cx with VRE and respiratory cx with VRE. A repeat swab of the draining wound on abdomen shows E. coli and Beta strep Group B. BCx negative to date. WBC today at 12.0. Unsure of significance as pt on solucorted but wbc was 9.1 yesterday. * D/C Meropenem 07/30 * D/C Cubicin Day 08/01. He got 14 days of abx * Follow-up on pending repeat culture results * Off pressors * Continue on fentanyl * Continue Solu-Cortef 50 mg IV every 12 * Continue Protonix IV 14 mg twice a day * Continue octreotide drip-Plan is to continue drip for duration of intubation * Surgery following * Per surgery will re-feed the WILLEM drain secretions as bolus * Continue vent weaning trials * Pending aspergillus antibody * H.pylori negative #USMAN: RESOLVED. The renal injury is most likely secondary to ATN due to decreased renal perfusion from septic shock. * Appreciate nephrology recommendation * Titrate vent #DM: * We will add insulin to TPN * Goal glucose between [id number] and exam * Appreciate endocrinology recommendation History of PAF on Tikosyn * Continue to hold the Tikosyn * Appreciate cardiology recomm Guarded prognosis Full code Nothing by mouth DVT prophylaxis with subcutaneous heparin Problem List: 1. Peritonitis Pain Ratin Tomorrow's Labs & Rationales: cbc icu Plan DVT/Prophylaxis: mechanical, pharmacological Booker RODRÍGUEZ,Trey 08/01/17 1037: Objective Current Medications: Current Medications Sig/Buck Start time Last Medication Dose Route Stop Time Status Admin Acetaminophen 1,000 MG Q6P PRN 07/16 0530 AC 07/20 N/A 1 UNIT IV 0659 Albuterol Sulfate 3 ML EVERY 4 HRS/AWAKE 07/27 0800 AC 08/02 INH 0804 Budesonide/ 2 PUF BID 07/26 1056 AC 08/02 Formoterol Fumarate INH 0810 Carvedilol 3.125 MG BID 07/28 1000 AC 08/01 PO 2139 Daptomycin 500 MG 1130 07/29 1130 DC 08/01 IV 1232 Fentanyl Citrate 1,000 MCG Q13H 07/31 2000 AC 08/02 Dextrose/Water 250 ML IV 0242 Hydrocortisone 50 MG Q12 07/25 1000 AC 08/01 Sodium Succinate IV 2138 Insulin Aspart 0 Q4 07/25 1000 AC 08/02 SC 0642 Insulin Detemir 20 UNITS BID 07/30 1000 AC 08/01 SC 2137 Nystatin 5 ML 4 TIMES/DAY 07/30 1400 AC 08/01 PO 213 Octreotide Acetate 500 MCG Q20H 07/15 1400 AC 08/02 Dextrose/Water 500 ML IV 0640 Pantoprazole Sodium 40 MG BID 07/10 1016 AC 08/01 IV 213 Attending MD Review Statement Attending Sign Off Attending Cosign Statement: I have: examined this patient, reviewed avalbl EMR data, personally reviewd images, discussd w/resident/PA/PROCESSING INSPECTOR, discussed mgmt plan w/riya, discussed mgmt plan w/CM, discussed mgmt plan w/pt, agreed w/resident/PA/PROCESSING INSPECTOR, amended to note. Other Findings: I, Trey Celeste M.D. have examined this patient, reviewed available EMR data, personally reviewed images, discussed with resident/PA/PROCESSING INSPECTOR, discussed management plan with housestaff and nursing staff, discussed managment plan all of healthcare providers, discussed management plan with patient and/or family, agreed with resident/PA/PROCESSING INSPECTOR. The past history and parts of the chart have been autopopulated. Impression 76-year-old man * hypoxemic respiratory failure likely secondary to mucous plugging * resolved septic shock * Hx of atrial flutter that is now controlled * He's also been on steroids for BP support for stress dosing. Plan Respiratory -spontaneous breathing trials -no plan for extubation yet -if necessary will sedate -f/u cxr/abgs ID -f/u ID recs CVS -hemodynamically stable -off vasopressors -rate is controlled Heme -monitor cbc, coags Metabolic -ins/outs -monitor electrolytes Alimentary -TPN -octreotide gtt -f/u surgery Neuro -sedation as necessary DVT prophylaxis at all times TTS 35 min
[2017-08-01 12:00] VITALS: BP 112/60
--- NOTE | 2017-08-01 13:13 | PN- Diabetes ---
Assessment/Plan Assessment: 76-year-old male with Hx of CAD with low ejection fraction, atrial fibrillation, AICD, previous infection of hip with prolonged antibiotic, history of peptic ulcer disease, diabetes and renal stone, was admitted for perforation of duodenum now with septic shock in ICU. He was on 3 pressors, TPN, octreotide drip and bicarb drip. His BP remained low and stress dose of steroid was initiated despite his am cortisol was 24.8. Patient is still on hydrocortisone 50 mg IV every 12 hours and octreotide drip. Patient was re-intubated on 07/26/2017. He has been off on TPN. Currently he is on tube feeding with Vital 75 mL per hour. Levemir was increased to 20 units twice a day and Novolog coverage every 4 hours was adjusted on . His blood sugars were 159, 113, 148 and 175 Plan: continue the current insulin regimen for now; monitor FSGs; continue Hydrocortisone 50 mg iv every 12 hours for now. will follow. Subjective Subjective: He remains intubated. Objective Last 24 Hrs of Vital Signs/I&O Vital Signs Date Time Temp Pulse Resp B/P B/P Pulse O2 O2 Flow FiO2 Mean Ox Delivery Rate 08/01 1200 99 Ventilator 35% 08/01 1200 97.6 68 16 112/60 100 Ventilator 35% 08/01 1127 35 08/01 1002 69 120/54 08/01 0816 35 08/01 0800 97.6 68 16 120/62 100 Ventilator 35% 08/01 0800 100 Ventilator 35% 08/01 0655 35 08/01 0400 95 Ventilator 35% 08/01 0346 35 08/01 0203 35 08/01 0000 95 Ventilator 35% 07/31 2300 97.6 69 22 144/64 95 Ventilator 35% 07/31 2258 98.6 69 18 147/66 07/31 2208 35 07/31 2000 97 Ventilator 35% 07/31 1935 35 07/31 1639 35 07/31 1600 98.0 69 18 128/60 97 Ventilator 35% 07/31 1600 96 Ventilator 35% 07/31 1425 35 Intake & Output 08/01 1600 08/01 0800 08/01 0000 Intake Total 5695 1030.4 Output Total 685 715 Balance 5010 315.4 Intake, IV 291 350.4 Intake, Tube 5404 680 Feeding Number 1 Bowel Movements Output, 415 Drainage Output, 100 100 Gastric Drainage Output, Urine 585 200 Findings Pertinent Lab/Les Results: Laboratory Tests 08/01 0500 Chemistry Sodium (137 - 145 mmol/L) 141 Potassium (3.5 - 5.1 mmol/L) 3.9 Chloride (98 - 107 mmol/L) 104 Carbon Dioxide (22 - 30 mmol/L) 29 Anion Gap (5 - 16) 8 BUN (9 - 20 mg/dL) 29 H Creatinine (0.7 - 1.2 mg/dL) 0.7 Estimated GFR (>60 ml/min) > 60 Glucose (65 - 99 mg/dL) 151 H Calcium (8.4 - 10.2 mg/dL) 7.5 L Phosphorus (2.5 - 4.5 mg/dL) 3.3 Magnesium (1.6 - 2.3 mg/dL) 1.9 Total Bilirubin (0.2 - 1.3 mg/dL) 0.6 AST (17 - 59 U/L) 37 ALT (21 - 72 U/L) 42 Albumin (3.5 - 5.0 g/dL) 2.1 L Hematology CBC w Diff MAN DIFF ORDERED WBC (4.8 - 10.8 /CUMM) 12.0 H RBC (4.70 - 6.10 /CUMM) 3.24 L Hgb (14.0 - 18.0 G/DL) 9.4 L Hct (42 - 52 %) 29.1 L MCV (80.0 - 94.0 FL) 89.7 MCH (27.0 - 31.0 PG) 29.0 RDW (11.5 - 14.5 %) 20.2 H Plt Count (130 - 400 /CUMM) 193 MPV (7.4 - 10.4 FL) 8.6 Segmented Neutrophils (42.2 - 75.2 %) 71 Band Neutrophils (0.0 - 5.0 %) 4 Lymphocytes (20.5 - 51.1 %) 13 L Monocytes (1.7 - 9.3 %) 9 Eosinophils (0 - 5.0 %) 2 Basophils (0.0 - 2.0 %) 1 Nucleated RBCs (0.0 - 0.0 /100WBC) 1 H Platelet Estimate (ADEQUATE) ADEQUATE Polychromasia 1+ Hypochromic-Microcytic 1+ Poikilocytosis 2+ Basophilic Stippling 1+ Ovalocytes 1+ Stomatocytes 1+ Elliptocytes FEW PUBS MCHC (33.0 - 37.0 G/DL) 32.4 L Other Body Source Fld Total RBCs Counted (%) 100
[2017-08-01 16:00] VITALS: BP 110/54
--- NOTE | 2017-08-01 16:51 | PN- Housestaff ---
Subjective Follow-up For: Perforated duodenal ulcer VRE + Subjective: Saw pt at bedside this AM. No change in status. He opens eyes to his name. Review of Systems Constitutional: Reports: no symptoms. Objective Last 24 Hrs of Vital Signs/I&O Vital Signs Date Time Temp Pulse Resp B/P B/P Pulse O2 O2 Flow FiO2 Mean Ox Delivery Rate 08/01 1200 99 Ventilator 35% 08/01 1200 97.6 68 16 112/60 100 Ventilator 35% 08/01 1127 35 08/01 1002 69 120/54 08/01 0816 35 08/01 0800 97.6 68 16 120/62 100 Ventilator 35% 08/01 0800 100 Ventilator 35% 08/01 0655 35 08/01 0400 95 Ventilator 35% 08/01 0346 35 08/01 0203 35 08/01 0000 95 Ventilator 35% 07/31 2300 97.6 69 22 144/64 95 Ventilator 35% 07/31 2258 98.6 69 18 147/66 07/31 2208 35 07/31 2000 97 Ventilator 35% 07/31 1935 35 Intake & Output 08/01 1600 08/01 0800 08/01 0000 Intake Total 1780 5695 1030.4 Output Total 1550 685 715 Balance 230 5010 315.4 Intake, IV 355 291 350.4 Intake, Tube 555 5404 680 Feeding Intake, Tube 870 Irrigant Number 1 Bowel Movements Output, 750 415 Drainage Output, 100 100 100 Gastric Drainage Output, Urine 700 585 200 Physical Exam General Appearance: No Acute Distress HEENT: Atraumatic Neck: Supple Cardiovascular: Regular Rate, Normal S1, Normal S2 Lungs: crackles+ Abdomen: distended. Ulcer is still draining large amount of purulence. [place] in place. 2X WILLEM drain with dark drainage. Extremities: bilat edema Assessment/Plan Assessment: This is a 76 year old gentleman with a PMH of HFrEF 25-30% on echocardiogram 06/2017 (followed by Dr. Sanchez), PPM, CAD s/p CABG in 2003, COPD, HLD, diabetes , BPH, LIAM, history of LE cellulitis, previous right total hip arthroplasty ( 2014) at [facility], septic joint of the right hip with cultures positive for enterococcus for which he underwent IV antibiotics and cement spacer implantation for UTI resistant s/p failed outpatient nitrofuratonin treatement. Plan: Patient is being admitted to ICU as Lactic acid has increased to 6.0 and new onset of rebound tenderness. #Sepsis secondary to UTI Lactic acid 3.6, 3.8, 3.4 <Troponins 0.01, 0.02 Urine cultures growing gram-negative rods -Continue Duvall for urinary retention, void trial and discontinue Duvall if no retention - f/u Blood culture, urine culture sensitivities. - start ceftaz - Trend lactate -f/u with Dr. Young consult given history of R hip replacement infection in the setting of current sepsis - f/u Consult ID #fungal infection of abd fold -Nystatin powder 3 times a day #multiple open blisters -f/u wound care consult #htn -Restart lisinopril and flomax if blood pressure stable #constipation -Continue senna, MiraLAX, Dulcolax suppository as needed #HFrEF 25-30% -Continue dofetilide hld -Continue atorvastatin -Continue aspirin #diabetes -Accu-Cheks and insulin sliding scale #FULL CODE
[2017-08-02] VITALS: BP 116/62
--- NOTE | 2017-08-02 00:06 | RADIOLOGY REPORT ---
EXAMINATION: XR PORTABLE CHEST CLINICAL INFORMATION: Endotracheal tube position COMPARISON: Chest x-ray from earlier today TECHNIQUE: Portable frontal view of the chest was obtained. FINDINGS: Endotracheal tube tip is suspected to lie approximately 1.5 cm above the kika. Enteric tube appears to course below the diaphragm. Pacemaker/AICD lead tips overlie the right atrium and right ventricle. Sternal wires are present. Right PICC tip is suspected to lie in the region of the distal SVC, though is not well seen. There is redemonstrated hazy bibasilar opacification suggesting a combination of pleural effusions and underlying airspace disease, similar to prior. No pneumothorax is seen. The cardiomediastinal silhouette is stable. No acute osseous findings are seen. IMPRESSION: Endotracheal tube tip suspected to lie approximately 1.5 cm above the kika. Redemonstrated bibasilar opacities favoring small pleural effusions with underlying atelectasis versus consolidation, similar to prior.
[2017-08-02 04:47] LABS: ABSOLUTE BASOPHIL COUNT 0 /CUMM (0.0-0.2); ABSOLUTE EOSINOPHIL COUNT 0 /CUMM (0.0-0.7); ABSOLUTE GRANULOCYTE CT 6.9 /CUMM (1.4-6.5); ABSOLUTE LYMPH COUNT 2.8 /CUMM (1.2-3.4); ABSOLUTE MONOCYTE COUNT 1.2 /CUMM (0.10-0.60); BASOPHIL % 0.2 % (0.0-2.0); EOSINOPHIL % 0.1 % (0-5); GRANULOCYTE % 63.5 % (42.2-75.2); HEMATOCRIT 27.4 % (42-52); MEAN CORPUSCULAR HGB 28.5 PG (27.0-31.0); MEAN CORPUSCULAR HGB CONC 31.8 G/DL (33.0-37.0); MEAN CORPUSCULAR VOLUME 89.6 FL (80.0-94.0); MEAN PLATELET VOLUME 9.1 FL (7.4-10.4); PLATELET COUNT 170 /CUMM (130-400); RBC DISTRIBUTION WIDTH 20.2 % (11.5-14.5); RED BLOOD CELL CT 3.06 /CUMM (4.70-6.10); WHITE BLOOD CELL COUNT 10.9 /CUMM (4.8-10.8)
[2017-08-02 08:00] VITALS: BP 105/50
--- NOTE | 2017-08-02 08:41 | PN- Resident CRCU ---
Subjective HPI/CRCU Issues: Intubated Duodenal perforation COntinuous drainage from abdominal wound 24 Hour Events: No acute overnight events. Pt remained afebrile. Still on mechanical ventilation but more awake and alert. The bowel succus seems more purulent and per surgery we d/c re-feeding his enteric contents back to him. Objective Vital Signs & I&O Last 8 Hrs of Vitals and I&O: TV 500 PEEP 5 FIO2 40 RR 16 AC/VC Vitals: 98.4, 69, 16, (105/50), 96% on vent. Exam General Appearance: well developed/nourished, intubated Head: atraumatic Respiratory: normal breath sounds, quiet respiration Cardiovascular: regular rate/rhythm Gastrointestinal: Distended with dagoberto in place. There is an ulcer about 3cm below dagoberto. THere is copious purulent drainage from ulcer. WILLEM drain x2 with dark serous drainage. Extremities: pedal edema Weaning Parameters NIF: 50 Minute Volume: 11.5 Resp rate: 22 Vt: 520 Heart Rate: 69 Weaning Schedule Start Time: 1920 Minute Volume: 9.50 Resp Rate: 17 Vt: 560 Heart Rate: 70 End Time: 2050 Minute Volume: 17.1 Resp Rate: 24 Vt: 700 Heart Rate: 69 Current Medications: Current Medications Sig/Buck Start time Last Medication Dose Route Stop Time Status Admin Acetaminophen 1,000 MG Q6P PRN 07/16 0530 AC 07/20 N/A 1 UNIT IV 0659 Albuterol Sulfate 3 ML EVERY 4 HRS/AWAKE 07/27 0800 AC 08/02 INH 1156 Budesonide/ 2 PUF BID 07/26 1056 AC 08/02 Formoterol Fumarate INH 0810 Carvedilol 3.125 MG BID 07/28 1000 AC 08/02 PO 0946 Daptomycin 500 MG 1130 07/29 1130 DC 08/01 IV 1232 Fentanyl Citrate 1,000 MCG Q13H 07/31 2000 AC 08/02 Dextrose/Water 250 ML IV 0242 Hydrocortisone 50 MG Q12 07/25 1000 AC 08/02 Sodium Succinate IV 0946 Insulin Aspart 0 Q4 07/25 1000 AC 08/02 SC 0945 Insulin Detemir 20 UNITS BID 07/30 1000 AC 08/02 SC 0945 Nystatin 5 ML 4 TIMES/DAY 07/30 1400 AC 08/02 PO 0945 Octreotide Acetate 500 MCG Q20H 07/15 1400 AC 08/02 Dextrose/Water 500 ML IV 0640 Pantoprazole Sodium 40 MG BID 07/10 1016 AC 08/02 IV 0945 Impression/Plan Impression/Problem List Impression: This is a 76-year-old male with past medical history of CAD with HFrEF, A. fib, AICD, previous infection of the hip with prolonged antibiotic, history of peptic ulcer disease, diabetes, nephrolithiasis who was transferred to the ICU for perforation of the duodenum with septic shock S/P repair with patch. Repeated CT of the abdomen performed on 07/15 revealed free air/extravasation of contrast into the peritoneal cavity and he was taken to the OR for ex-lap and had re- repair of duodenal ulcer with Fabrizio patch. PLAN #Septic shock secondary to perforated duodenal ulcer A/P Fabrizio patch: Micro is shoiwng the body cx with VRE and respiratory cx with VRE. A repeat swab of the draining wound on abdomen shows E. coli and Beta strep Group B. BCx negative to date. WBC today at 10.9. * D/C Meropenem 07/30 * D/C Cubicin Day 08/01. He got 14 days of abx * Follow-up on pending repeat culture results * Off pressors * Continue on fentanyl * Continue Solu-Cortef 50 mg IV every 12 * Continue Protonix IV 14 mg twice a day * Continue octreotide drip-Plan is to continue drip for duration of intubation * Surgery following * STOP re-feeding the WILLEM drain succus 08/02 * Continue vent weaning trials * Negative aspergillus antibody * H.pylori negative #USMAN: RESOLVED. The renal injury is most likely secondary to ATN due to decreased renal perfusion from septic shock. * Appreciate nephrology recommendation * Titrate vent #DM: * Goal glucose between [id number] * Appreciate endocrinology recommendation History of PAF on Tikosyn * Continue to hold the Tikosyn * Appreciate cardiology recomm Guarded prognosis Full code Nothing by mouth DVT prophylaxis with subcutaneous heparin Problem List: 1. Peritonitis 2. Ischemic bowel disease 3. Septic shock 4. Duodenal ulcer with perforation Pain Ratin Tomorrow's Labs & Rationales: icu cbc Plan DVT/Prophylaxis: mechanical, pharmacological
--- NOTE | 2017-08-02 10:00 | PN- General Surgery ---
Surgical Brief Attending Note Brief Attending Note: stable. no major changes. drain output more purulent appearing and less like succus. ok to stop refeeding drain output.
--- NOTE | 2017-08-02 11:42 | PN- CRCU ---
Subjective HPI/Critical Care Issues: Patient seen and examined this morning. He is awake and arousable however answers only a few questions. He seems to be comfortable. He remains intubated and his secretions have improved. Objective Current Medications: Current Medications Sig/Buck Start time Last Medication Dose Route Stop Time Status Admin Acetaminophen 1,000 MG Q6P PRN 07/16 0530 AC 07/20 N/A 1 UNIT IV 0659 Albuterol Sulfate 3 ML EVERY 4 HRS/AWAKE 07/27 0800 AC 08/02 INH 0804 Budesonide/ 2 PUF BID 07/26 1056 AC 08/02 Formoterol Fumarate INH 0810 Carvedilol 3.125 MG BID 07/28 1000 AC 08/02 PO 0946 Daptomycin 500 MG 1130 07/29 1130 DC 08/01 IV 1232 Fentanyl Citrate 1,000 MCG Q13H 07/31 2000 AC 08/02 Dextrose/Water 250 ML IV 0242 Hydrocortisone 50 MG Q12 07/25 1000 AC 08/02 Sodium Succinate IV 0946 Insulin Aspart 0 Q4 07/25 1000 AC 08/02 SC 0945 Insulin Detemir 20 UNITS BID 07/30 1000 AC 08/02 SC 0945 Nystatin 5 ML 4 TIMES/DAY 07/30 1400 AC 08/02 PO 0945 Octreotide Acetate 500 MCG Q20H 07/15 1400 AC 08/02 Dextrose/Water 500 ML IV 0640 Pantoprazole Sodium 40 MG BID 07/10 1016 AC 08/02 IV 0945 Vital Signs & I&O Last 24 Hrs of Vitals and I&O: Vital Signs Date Time Temp Pulse Resp B/P B/P Pulse O2 O2 Flow FiO2 Mean Ox Delivery Rate 08/02 1110 40 08/02 0946 69 107/48 08/02 0800 98.4 69 16 105/50 96 Ventilator 40% 08/02 0800 94 Ventilator 40% 08/02 0755 40 08/02 0559 40 08/02 0400 40 Ventilator 40% 08/02 0245 40 08/02 0057 40 08/02 0000 94 Ventilator 40% 08/02 0000 99.4 69 15 116/62 94 Ventilator 40% 08/01 2215 35 08/01 2139 69 20 111/56 08/01 2000 100 Ventilator 35% 08/01 1915 35 08/01 1645 35 08/01 1600 98.2 69 18 110/54 98 Ventilator 35% 08/01 1600 99 Ventilator 35% 08/01 1200 99 Ventilator 35% 08/01 1200 97.6 68 16 112/60 100 Ventilator 35% Intake & Output 08/02 1600 08/02 0800 08/02 0000 Intake Total 1808.6 1793.4 Output Total 1100 1200 Balance 708.6 593.4 Intake, IV 364.6 341.4 Intake, Oral 0 0 Intake, Tube 644 522 Feeding Intake, Tube 800 930 Irrigant Number 2 1 Bowel Movements Output, 600 800 Drainage Output, 0 100 Gastric Drainage Output, Urine 500 300 Exam Other Physical Findings: Shunt is awake and follows some simple commands he is intubated. His heart sounds are normal. His breath sounds are transmitted with rare rhonchi in his anterior chest. WILLEM drains have more of a brownish stool-like consistency. His legs are edematous but improved since previous. Results Last 24 Hrs of Lab Results: Laboratory Tests 08/02/17 0600: pH 7.50 H, pCO2 38, pO2 91, HCO3 29 H, ABG O2 Sat (Measured) 96.0, P-50 (Temp Corrected) N, Carboxyhemoglobin 0.3 L, O2 Concentration % .40, Respiration Rate 10, O2 Delivery Method VENT, Vent Mode A/C, Expiratory Pressure 5, Tidal Volume 500, Phlebotomy Draw Site LEFT RADIAL 08/02/17 0336: Anion Gap 7, Estimated GFR > 60, Glucose 147 H, Calcium 7.6 L, Phosphorus 3.6, Magnesium 1.9, Total Bilirubin 0.5, AST 30, ALT 41, Albumin 2.0 L, CBC w Diff MAN DIFF ORDERED, RBC 3.06 L, MCV 89.6, MCH 28.5, RDW 20.2 H, MPV 9.1, Gran % 63.5, Lymphocytes % 25.3, Monocytes % 10.9 H, Eosinophils % 0.1, Basophils % 0.2, Absolute Granulocytes 6.9 H, Segmented Neutrophils 60, Band Neutrophils 4, Absolute Lymphocytes 2.8, Lymphocytes 26, Monocytes 10 H, Absolute Monocytes 1.2 H, Absolute Eosinophils 0, Absolute Basophils 0, Platelet Estimate ADEQUATE , Polychromasia 1+, Poikilocytosis 1+, Basophilic Stippling 1+, Anisocytosis 2+, PUBS MCHC 31.8 L Impression/Plan Impression/Plan Impression/Plan: ITrey M.D. have examined this patient, reviewed available EMR data, personally reviewed images, discussed with resident/PA/RETORT FIREMAN, discussed management plan with housestaff and nursing staff, discussed managment plan all of healthcare providers, discussed management plan with patient and/or family, agreed with resident/PA/RETORT FIREMAN. The past history and parts of the chart have been autopopulated. Impression 76-year-old man * hypoxemic respiratory failure likely secondary to mucous plugging * resolved septic shock * Hx of atrial flutter that is now controlled * He's also been on steroids for BP support for stress dosing. Plan Respiratory -continue mechanical ventilation with sbt for excercise -no plan for extubation yet -if necessary will sedate -f/u cxr/abgs ID -f/u ID recs CVS -hemodynamically stable -off vasopressors -rate is controlled Heme -monitor cbc, coags Metabolic -ins/outs -monitor electrolytes Alimentary -TPN -octreotide gtt -f/u surgery Neuro -sedation as necessary DVT prophylaxis at all times TTS 35 min Goals of care need to be addressed
--- NOTE | 2017-08-02 11:45 | PN- Infect Dx ---
Subjective Subjective: Afebrile without complaints Objective Last 24 Hrs of Vital Signs/I&O Vital Signs Date Time Temp Pulse Resp B/P B/P Pulse O2 O2 Flow FiO2 Mean Ox Delivery Rate 08/02 1110 40 08/02 0946 69 107/48 08/02 0800 98.4 69 16 105/50 96 Ventilator 40% 08/02 0800 94 Ventilator 40% 08/02 0755 40 08/02 0559 40 08/02 0400 40 Ventilator 40% 08/02 0245 40 08/02 0057 40 08/02 0000 94 Ventilator 40% 08/02 0000 99.4 69 15 116/62 94 Ventilator 40% 08/01 2215 35 08/01 2139 69 20 111/56 08/01 2000 100 Ventilator 35% 08/01 1915 35 08/01 1645 35 08/01 1600 98.2 69 18 110/54 98 Ventilator 35% 08/01 1600 99 Ventilator 35% 08/01 1200 99 Ventilator 35% 08/01 1200 97.6 68 16 112/60 100 Ventilator 35% Intake & Output 08/02 1600 08/02 0800 08/02 0000 Intake Total 1808.6 1793.4 Output Total 1100 1200 Balance 708.6 593.4 Intake, IV 364.6 341.4 Intake, Oral 0 0 Intake, Tube 644 522 Feeding Intake, Tube 800 930 Irrigant Number 2 1 Bowel Movements Output, 600 800 Drainage Output, 0 100 Gastric Drainage Output, Urine 500 300 Physical Exam Other Physical Findings: He is awake and alert, appearing comfortable in no acute distress on the ventilator Lungs are clear Heart regular rhythm with no murmur Abdomen is distended, nontender with positive bowel sounds; WILLEM drains remain in place with significant output; incision with packing in place in the inferior aspect, with purulent drainage Extremities minimal edema of the extremities; PICC remains in place in the right upper extremity with no inflammation at the site Duvall catheter remains in place Results Last 24 Hours of Lab Results: Laboratory Tests 08/02 08/02 0600 0336 Blood Gas pH (7.35 - 7.45 PH) 7.50 H pCO2 (35 - 45 TORR) 38 pO2 (80 - 100 TORR) 91 HCO3 (21 - 28 MEQ/L) 29 H ABG O2 Sat (Measured) (>96.0 %) 96.0 P-50 (Temp Corrected) N Carboxyhemoglobin (1.5 - 5.0 %) 0.3 L O2 Concentration % .40 Respiration Rate (BPM) 10 O2 Delivery Method VENT Vent Mode A/C Expiratory Pressure (CMH2O/P) 5 Tidal Volume (CC) 500 Chemistry Sodium (137 - 145 mmol/L) 140 Potassium (3.5 - 5.1 mmol/L) 4.0 Chloride (98 - 107 mmol/L) 102 Carbon Dioxide (22 - 30 mmol/L) 30 Anion Gap (5 - 16) 7 BUN (9 - 20 mg/dL) 27 H Creatinine (0.7 - 1.2 mg/dL) 0.8 Estimated GFR (>60 ml/min) > 60 Glucose (65 - 99 mg/dL) 147 H Calcium (8.4 - 10.2 mg/dL) 7.6 L Phosphorus (2.5 - 4.5 mg/dL) 3.6 Magnesium (1.6 - 2.3 mg/dL) 1.9 Total Bilirubin (0.2 - 1.3 mg/dL) 0.5 AST (17 - 59 U/L) 30 ALT (21 - 72 U/L) 41 Albumin (3.5 - 5.0 g/dL) 2.0 L Hematology CBC w Diff MAN DIFF ORDERED WBC (4.8 - 10.8 /CUMM) 10.9 H RBC (4.70 - 6.10 /CUMM) 3.06 L Hgb (14.0 - 18.0 G/DL) 8.7 L Hct (42 - 52 %) 27.4 L MCV (80.0 - 94.0 FL) 89.6 MCH (27.0 - 31.0 PG) 28.5 RDW (11.5 - 14.5 %) 20.2 H Plt Count (130 - 400 /CUMM) 170 MPV (7.4 - 10.4 FL) 9.1 Gran % (42.2 - 75.2 %) 63.5 Lymphocytes % (20.5 - 51.1 %) 25.3 Monocytes % (1.7 - 9.3 %) 10.9 H Eosinophils % (0 - 5 %) 0.1 Basophils % (0.0 - 2.0 %) 0.2 Absolute Granulocytes (1.4 - 6.5 /CUMM) 6.9 H Segmented Neutrophils (42.2 - 75.2 %) 60 Band Neutrophils (0.0 - 5.0 %) 4 Absolute Lymphocytes (1.2 - 3.4 /CUMM) 2.8 Lymphocytes (20.5 - 51.1 %) 26 Monocytes (1.7 - 9.3 %) 10 H Absolute Monocytes (0.10 - 0.60 /CUMM) 1.2 H Absolute Eosinophils (0.0 - 0.7 /CUMM) 0 Absolute Basophils (0.0 - 0.2 /CUMM) 0 Platelet Estimate (ADEQUATE) ADEQUATE Polychromasia 1+ Poikilocytosis 1+ Basophilic Stippling 1+ Anisocytosis 2+ PUBS MCHC (33.0 - 37.0 G/DL) 31.8 L Miscellaneous Phlebotomy Draw Site LEFT RADIAL Last 24 Hours of Les Results: Superficial culture of the drainage from the incision July 30 positive for Escherichia coli sensitive to all antibiotics and Group B strep Sputum culture July 30 scant growth of mixed jose david with mold Recent Imaging Studies: Chest x-ray August 01 bibasilar densities unchanged Assessment/Plan Impression: Stable with temperatures and white blood cell count normal (on "stress" steroids ) now off antibiotics after over 2 weeks of treatment for VRE and Enterobacter isolated from the OR cultures following a perforated duodenal ulcer 24 days ago, with his hospital course complicated by an ongoing enteric leak despite a return to the OR for a duodenal repair 17 days ago. His recent CT scan of the abdomen and pelvis did not reveal any evidence of a collection, though he does have persistent purulent drainage from the inferior aspect of his incision, with the culture growing Escherichia coli and Group B strep, of unclear significance. His sputum culture is again growing mold, which likely represents contamination or colonization, particularly given his stable respiratory status, and should not require treatment. Suggestion: 1. Would remove Duvall catheter 2. Continue to follow off antibiotics
--- NOTE | 2017-08-02 12:35 | PN- Diabetes ---
Assessment/Plan Assessment: 76-year-old male with Hx of CAD with low ejection fraction, atrial fibrillation, AICD, previous infection of hip with prolonged antibiotic, history of peptic ulcer disease, diabetes and renal stone, was admitted for perforation of duodenum now with septic shock in ICU. He was on 3 pressors, TPN, octreotide drip and bicarb drip. His BP remained low and stress dose of steroid was initiated despite his am cortisol was 24.8. Patient is still on hydrocortisone 50 mg IV every 12 hours and octreotide drip. Patient was re-intubated on 07/26/2017. He has been off on TPN. Currently he is on tube feeding with Vital 75 mL per hour. Levemir was increased to 20 units twice a day and Novolog coverage every 4 hours was adjusted on . His blood sugars were 191, 146, 137 and 163. Plan: continue the current insulin regimen for now; monitor FSGs and electrolytes; continue Hydrocortisone 50 mg iv every 12 hours; will follow. Subjective Subjective: Patient remains intubated. Objective Last 24 Hrs of Vital Signs/I&O Vital Signs Date Time Temp Pulse Resp B/P B/P Pulse O2 O2 Flow FiO2 Mean Ox Delivery Rate 08/02 1200 95 Ventilator 40% 08/02 1110 40 08/02 0946 69 107/48 08/02 0800 98.4 69 16 105/50 96 Ventilator 40% 08/02 0800 94 Ventilator 40% 08/02 0755 40 08/02 0559 40 08/02 0400 40 Ventilator 40% 08/02 0245 40 08/02 0057 40 08/02 0000 94 Ventilator 40% 08/02 0000 99.4 69 15 116/62 94 Ventilator 40% 08/01 2215 35 08/01 2139 69 20 111/56 08/01 2000 100 Ventilator 35% 08/01 1915 35 08/01 1645 35 08/01 1600 98.2 69 18 110/54 98 Ventilator 35% 08/01 1600 99 Ventilator 35% Intake & Output 08/02 1600 08/02 0800 08/02 0000 Intake Total 1808.6 1793.4 Output Total 1100 1200 Balance 708.6 593.4 Intake, IV 364.6 341.4 Intake, Oral 0 0 Intake, Tube 644 522 Feeding Intake, Tube 800 930 Irrigant Number 2 1 Bowel Movements Output, 600 800 Drainage Output, 0 100 Gastric Drainage Output, Urine 500 300 Findings Pertinent Lab/Les Results: Laboratory Tests 08/02 08/02 0600 0336 Blood Gas pH (7.35 - 7.45 PH) 7.50 H pCO2 (35 - 45 TORR) 38 pO2 (80 - 100 TORR) 91 HCO3 (21 - 28 MEQ/L) 29 H ABG O2 Sat (Measured) (>96.0 %) 96.0 P-50 (Temp Corrected) N Carboxyhemoglobin (1.5 - 5.0 %) 0.3 L O2 Concentration % .40 Respiration Rate (BPM) 10 O2 Delivery Method VENT Vent Mode A/C Expiratory Pressure (CMH2O/P) 5 Tidal Volume (CC) 500 Chemistry Sodium (137 - 145 mmol/L) 140 Potassium (3.5 - 5.1 mmol/L) 4.0 Chloride (98 - 107 mmol/L) 102 Carbon Dioxide (22 - 30 mmol/L) 30 Anion Gap (5 - 16) 7 BUN (9 - 20 mg/dL) 27 H Creatinine (0.7 - 1.2 mg/dL) 0.8 Estimated GFR (>60 ml/min) > 60 Glucose (65 - 99 mg/dL) 147 H Calcium (8.4 - 10.2 mg/dL) 7.6 L Phosphorus (2.5 - 4.5 mg/dL) 3.6 Magnesium (1.6 - 2.3 mg/dL) 1.9 Total Bilirubin (0.2 - 1.3 mg/dL) 0.5 AST (17 - 59 U/L) 30 ALT (21 - 72 U/L) 41 Albumin (3.5 - 5.0 g/dL) 2.0 L Hematology CBC w Diff MAN DIFF ORDERED WBC (4.8 - 10.8 /CUMM) 10.9 H RBC (4.70 - 6.10 /CUMM) 3.06 L Hgb (14.0 - 18.0 G/DL) 8.7 L Hct (42 - 52 %) 27.4 L MCV (80.0 - 94.0 FL) 89.6 MCH (27.0 - 31.0 PG) 28.5 RDW (11.5 - 14.5 %) 20.2 H Plt Count (130 - 400 /CUMM) 170 MPV (7.4 - 10.4 FL) 9.1 Gran % (42.2 - 75.2 %) 63.5 Lymphocytes % (20.5 - 51.1 %) 25.3 Monocytes % (1.7 - 9.3 %) 10.9 H Eosinophils % (0 - 5 %) 0.1 Basophils % (0.0 - 2.0 %) 0.2 Absolute Granulocytes (1.4 - 6.5 /CUMM) 6.9 H Segmented Neutrophils (42.2 - 75.2 %) 60 Band Neutrophils (0.0 - 5.0 %) 4 Absolute Lymphocytes (1.2 - 3.4 /CUMM) 2.8 Lymphocytes (20.5 - 51.1 %) 26 Monocytes (1.7 - 9.3 %) 10 H Absolute Monocytes (0.10 - 0.60 /CUMM) 1.2 H Absolute Eosinophils (0.0 - 0.7 /CUMM) 0 Absolute Basophils (0.0 - 0.2 /CUMM) 0 Platelet Estimate (ADEQUATE) ADEQUATE Polychromasia 1+ Poikilocytosis 1+ Basophilic Stippling 1+ Anisocytosis 2+ PUBS MCHC (33.0 - 37.0 G/DL) 31.8 L Miscellaneous Phlebotomy Draw Site LEFT RADIAL
[2017-08-02 16:00] VITALS: BP 96/50
[2017-08-03] VITALS: BP 90/58
[2017-08-03 05:16] LABS: ABSOLUTE BASOPHIL COUNT 0 /CUMM (0.0-0.2); ABSOLUTE EOSINOPHIL COUNT 0 /CUMM (0.0-0.7); ABSOLUTE GRANULOCYTE CT 4.9 /CUMM (1.4-6.5); ABSOLUTE LYMPH COUNT 2.9 /CUMM (1.2-3.4); ABSOLUTE MONOCYTE COUNT 0.8 /CUMM (0.10-0.60); BASOPHIL % 0.3 % (0.0-2.0); EOSINOPHIL % 0.5 % (0-5); GRANULOCYTE % 56.2 % (42.2-75.2); HEMATOCRIT 25.7 % (42-52); MEAN CORPUSCULAR HGB 28.8 PG (27.0-31.0); MEAN CORPUSCULAR HGB CONC 32.3 G/DL (33.0-37.0); MEAN PLATELET VOLUME 8.9 FL (7.4-10.4); PLATELET COUNT 160 /CUMM (130-400); RBC DISTRIBUTION WIDTH 20.1 % (11.5-14.5); RED BLOOD CELL CT 2.89 /CUMM (4.70-6.10); WHITE BLOOD CELL COUNT 8.6 /CUMM (4.8-10.8)
[2017-08-03 08:00] VITALS: BP 120/62
--- NOTE | 2017-08-03 12:15 | PN- Resident CRCU ---
Solitario RODRÍGUEZ,Gisel 08/03/17 0814: Subjective HPI/CRCU Issues: Intubated Duodenal perforation VRE+ 24 Hour Events: Sodium dropped from 140--> 131. Only change was d/c of re-feeding drain succus. VENT: TV 500, FiO2 40, RR 16, PEEP 5 Vitals: HR 73, RR 15, Sat 96, BP (90/58)-(116/56), Still on Fentanyl, Octreotide and TF Objective Vital Signs & I&O Last 8 Hrs of Vitals and I&O: see above Exam General Appearance: no apparent distress, intubated Head: atraumatic Neck: normal inspection Respiratory: crackles Cardiovascular: regular rate/rhythm, edema Gastrointestinal: soft, There is still drainage from wound under rosalia but it seems to have decreased some what. Still purulent looking. Rosalia in place. Extremities: pedal edema Weaning Parameters NIF: 31 Minute Volume: 7.8 Resp rate: 15 Vt: 474 Heart Rate: 71 Weaning Schedule Start Time: 1115 Minute Volume: 5.6 Resp Rate: 12 Vt: 400 Heart Rate: 95 End Time: 1320 Minute Volume: 8.2 Resp Rate: 14 Vt: 781 Heart Rate: 69 Current Medications: Current Medications Sig/Buck Start time Last Medication Dose Route Stop Time Status Admin Acetaminophen 1,000 MG Q6P PRN 07/16 0530 AC 07/20 N/A 1 UNIT IV 0659 Albuterol Sulfate 3 ML EVERY 4 HRS/AWAKE 07/27 0800 AC 08/03 INH 1152 Budesonide/ 2 PUF BID 07/26 1056 AC 08/03 Formoterol Fumarate INH 0819 Carvedilol 3.125 MG BID 07/28 1000 AC 08/03 PO 1014 Fentanyl Citrate 1,000 MCG Q13H 07/31 2000 AC 08/03 Dextrose/Water 250 ML IV 0645 Hydrocortisone 50 MG Q12 07/25 1000 AC 08/03 Sodium Succinate IV 1015 Insulin Aspart 0 Q4 07/25 1000 AC 08/03 SC 1015 Insulin Detemir 20 UNITS BID 07/30 1000 AC 08/03 SC 1014 Nystatin 5 ML 4 TIMES/DAY 07/30 1400 AC 08/03 PO 1014 Octreotide Acetate 500 MCG Q20H 07/15 1400 AC 08/03 Dextrose/Water 500 ML IV 0435 Pantoprazole Sodium 40 MG BID 07/10 1016 AC 08/03 IV 1015 Impression/Plan Impression/Problem List Impression: This is a 76-year-old male with past medical history of CAD with HFrEF, A. fib, AICD, previous infection of the hip with prolonged antibiotic, history of peptic ulcer disease, diabetes, nephrolithiasis who was transferred to the ICU for perforation of the duodenum with septic shock S/P repair with patch. Repeated CT of the abdomen performed on 07/15 revealed free air/extravasation of contrast into the peritoneal cavity and he was taken to the OR for ex-lap and had re- repair of duodenal ulcer with Fabrizio patch. PLAN #Septic shock secondary to perforated duodenal ulcer A/P Fabrizio patch: Micro is shoiwng the body cx with VRE and respiratory cx with VRE. A repeat swab of the draining wound on abdomen shows E. coli and Beta strep Group B. BCx negative to date. WBC today at 8.6. Negative aspergillus antibody. H.pylori negative * D/C Meropenem 07/30 * D/C Cubicin Day 08/01. He got 14 days of abx * Follow-up on pending repeat culture results * Off pressors * Continue on fentanyl * Continue Solu-Cortef 50 mg IV every 12 * Continue Protonix IV 14 mg twice a day * Continue octreotide drip-Plan is to continue drip for duration of intubation * Surgery following * STOP re-feeding the WILLEM drain succus 08/02 * Continue vent weaning trials Hyonatremia: Pt has Na 140 yesterday and 131 today. Only change in intervention is stopping of re-feeding succus. * recheck BEP #DM: * Goal glucose between [id number]. Today elevated over 300. * Appreciate endocrinology recommendation #USMAN: RESOLVED. The renal injury is most likely secondary to ATN due to decreased renal perfusion from septic shock. * Appreciate nephrology recommendation * Titrate vent History of PAF on Tikosyn * Continue to hold the Tikosyn * Appreciate cardiology recomm Guarded prognosis Full code Nothing by mouth DVT prophylaxis with subcutaneous heparin Problem List: 1. Peritonitis 2. Duodenal ulcer with perforation Pain Ratin Tomorrow's Labs & Rationales: cbc icu Plan DVT/Prophylaxis: mechanical, pharmacological Trey Celeste MD 08/03/17 1100: Attending MD Review Statement Attending Sign Off Attending Cosign Statement: I have: examined this patient, reviewed avalbl EMR data, personally reviewd images, discussd w/resident/PA/BALE SEWER, discussed mgmt plan w/riya, discussed mgmt plan w/CM, discussed mgmt plan w/pt, agreed w/resident/PA/BALE SEWER, amended to note. Other Findings: I, Trey Celeste M.D. have examined this patient, reviewed available EMR data, personally reviewed images, discussed with resident/PA/BALE SEWER, discussed management plan with housestaff and nursing staff, discussed managment plan all of healthcare providers, discussed management plan with patient and/or family, agreed with resident/PA/BALE SEWER. The past history and parts of the chart have been autopopulated. Impression 76-year-old man * hypoxemic respiratory failure likely secondary to mucous plugging * resolved septic shock * Hx of atrial flutter that is now controlled * He's also been on steroids for BP support for stress dosing. Plan Respiratory -continue mechanical ventilation with sbt for excercise -no plan for extubation yet -if necessary will sedate -f/u cxr/abgs ID -f/u ID recs CVS -hemodynamically stable -off vasopressors -rate is controlled Heme -monitor cbc, coags Metabolic -ins/outs -monitor electrolytes Alimentary -TPN -octreotide gtt -f/u surgery Neuro -sedation as necessary DVT prophylaxis at all times TTS 35 min Goals of care need to be addressed
--- NOTE | 2017-08-03 12:18 | PN- Diabetes ---
Assessment/Plan Assessment: 76-year-old male with Hx of CAD with low ejection fraction, atrial fibrillation, AICD, previous infection of hip with prolonged antibiotic, history of peptic ulcer disease, diabetes and renal stone, was admitted for perforation of duodenum now with septic shock in ICU. He was on 3 pressors, TPN, octreotide drip and bicarb drip. His BP remained low and stress dose of steroid was initiated despite his am cortisol was 24.8. Patient is still on hydrocortisone 50 mg IV every 12 hours and octreotide drip. Patient was re-intubated on 07/26/2017. He has been off on TPN. Currently he is on tube feeding with Vital 75 mL per hour. Levemir was increased to 20 units twice a day and Novolog coverage every 4 hours was adjusted on . His blood sugars were 174, 160, 145 and 199. But am lab showed glucose 317 and sodium 131. Plan: continue the current insulin regimen for now; repeat chemistry panel including glucose level later today just to make sure; will follow. Subjective Subjective: Patient remains intubated. Objective Last 24 Hrs of Vital Signs/I&O Vital Signs Date Time Temp Pulse Resp B/P B/P Pulse O2 O2 Flow FiO2 Mean Ox Delivery Rate 08/03 0840 40 08/03 0800 98.6 70 18 120/62 98 Ventilator 40% 08/03 0800 94 Ventilator 40% 08/03 0555 40 08/03 0400 99 Ventilator 40% 08/03 0343 40 08/03 0127 40 08/03 0000 96 Ventilator 40% 08/03 0000 97.9 69 16 90/58 96 Ventilator 40% 08/02 2227 40 08/02 2149 69 102/50 08/02 2000 97 Ventilator 40% 08/02 1935 40 08/02 1635 40 08/02 1600 97.7 69 14 96/50 96 Ventilator 40% 08/02 1536 95 Ventilator 40% 08/02 1440 40 08/02 1200 95 Ventilator 40% 08/02 1110 40 08/02 0946 69 107/48 Intake & Output 08/03 1600 08/03 0800 08/03 0000 Intake Total 1077.2 990.2 Output Total 1100 935 Balance -22.8 55.2 Intake, IV 354.2 340.2 Intake, Oral 0 0 Intake, Tube 643 535 Feeding Intake, Tube 80 115 Irrigant Number 0 0 Bowel Movements Output, 350 485 Drainage Output, 100 50 Gastric Drainage Output, Urine 650 400 Findings Pertinent Lab/Les Results: Laboratory Tests 08/03 0434 Chemistry Sodium (137 - 145 mmol/L) 131 L Potassium (3.5 - 5.1 mmol/L) 3.7 Chloride (98 - 107 mmol/L) 95 L Carbon Dioxide (22 - 30 mmol/L) 29 Anion Gap (5 - 16) 8 BUN (9 - 20 mg/dL) 24 H Creatinine (0.7 - 1.2 mg/dL) 0.7 Estimated GFR (>60 ml/min) > 60 Glucose (65 - 99 mg/dL) 317 H Calcium (8.4 - 10.2 mg/dL) 7.3 L Phosphorus (2.5 - 4.5 mg/dL) 3.5 Magnesium (1.6 - 2.3 mg/dL) 1.8 Total Bilirubin (0.2 - 1.3 mg/dL) 0.5 AST (17 - 59 U/L) 21 ALT (21 - 72 U/L) 34 Albumin (3.5 - 5.0 g/dL) 1.9 L Hematology CBC w Diff MAN DIFF ORDERED WBC (4.8 - 10.8 /CUMM) 8.6 RBC (4.70 - 6.10 /CUMM) 2.89 L Hgb (14.0 - 18.0 G/DL) 8.3 L Hct (42 - 52 %) 25.7 L MCV (80.0 - 94.0 FL) 89.0 MCH (27.0 - 31.0 PG) 28.8 RDW (11.5 - 14.5 %) 20.1 H Plt Count (130 - 400 /CUMM) 160 MPV (7.4 - 10.4 FL) 8.9 Gran % (42.2 - 75.2 %) 56.2 Lymphocytes % (20.5 - 51.1 %) 33.2 Monocytes % (1.7 - 9.3 %) 9.8 H Eosinophils % (0 - 5 %) 0.5 Basophils % (0.0 - 2.0 %) 0.3 Absolute Granulocytes (1.4 - 6.5 /CUMM) 4.9 Segmented Neutrophils (42.2 - 75.2 %) 52 Band Neutrophils (0.0 - 5.0 %) 7 H Absolute Lymphocytes (1.2 - 3.4 /CUMM) 2.9 Lymphocytes (20.5 - 51.1 %) 33 Monocytes (1.7 - 9.3 %) 8 Absolute Monocytes (0.10 - 0.60 /CUMM) 0.8 H Absolute Eosinophils (0.0 - 0.7 /CUMM) 0 Absolute Basophils (0.0 - 0.2 /CUMM) 0 Platelet Estimate (ADEQUATE) ADEQUATE Polychromasia 1+ Hypochromic-Microcytic 1+ Ovalocytes FEW PUBS MCHC (33.0 - 37.0 G/DL) 32.3 L Other Body Source Fld Total RBCs Counted (%) 100
--- NOTE | 2017-08-03 12:30 | PN- Infect Dx ---
Subjective Subjective: Afebrile on steroids without complaints Objective Last 24 Hrs of Vital Signs/I&O Vital Signs Date Time Temp Pulse Resp B/P B/P Pulse O2 O2 Flow FiO2 Mean Ox Delivery Rate 08/03 1014 69 120/57 08/03 0840 40 08/03 0800 98.6 70 18 120/62 98 Ventilator 40% 08/03 0800 94 Ventilator 40% 08/03 0555 40 08/03 0400 99 Ventilator 40% 08/03 0343 40 08/03 0127 40 08/03 0000 96 Ventilator 40% 08/03 0000 97.9 69 16 90/58 96 Ventilator 40% 08/02 2227 40 08/02 2149 69 102/50 08/02 2000 97 Ventilator 40% 08/02 1935 40 08/02 1635 40 08/02 1600 97.7 69 14 96/50 96 Ventilator 40% 08/02 1536 95 Ventilator 40% 08/02 1440 40 Intake & Output 08/03 1600 08/03 0800 08/03 0000 Intake Total 1077.2 990.2 Output Total 1100 935 Balance -22.8 55.2 Intake, IV 354.2 340.2 Intake, Oral 0 0 Intake, Tube 643 535 Feeding Intake, Tube 80 115 Irrigant Number 0 0 Bowel Movements Output, 350 485 Drainage Output, 100 50 Gastric Drainage Output, Urine 650 400 Physical Exam Other Physical Findings: He appears comfortable in no acute distress on the ventilator Lungs are clear Heart regular rhythm with no murmur Abdomen is mildly distended, nontender with positive bowel sounds; incision with packing in place in the inferior aspect, with purulent exudate expressed; WILLEM drains remain in place with significant output continuing Extremities no cyanosis, clubbing or edema; PICC in place in the right upper extremity with no inflammation at the site Duvall catheter remains in place Results Last 24 Hours of Lab Results: Laboratory Tests 08/03 0434 Chemistry Sodium (137 - 145 mmol/L) 131 L Potassium (3.5 - 5.1 mmol/L) 3.7 Chloride (98 - 107 mmol/L) 95 L Carbon Dioxide (22 - 30 mmol/L) 29 Anion Gap (5 - 16) 8 BUN (9 - 20 mg/dL) 24 H Creatinine (0.7 - 1.2 mg/dL) 0.7 Estimated GFR (>60 ml/min) > 60 Glucose (65 - 99 mg/dL) 317 H Calcium (8.4 - 10.2 mg/dL) 7.3 L Phosphorus (2.5 - 4.5 mg/dL) 3.5 Magnesium (1.6 - 2.3 mg/dL) 1.8 Total Bilirubin (0.2 - 1.3 mg/dL) 0.5 AST (17 - 59 U/L) 21 ALT (21 - 72 U/L) 34 Albumin (3.5 - 5.0 g/dL) 1.9 L Hematology CBC w Diff MAN DIFF ORDERED WBC (4.8 - 10.8 /CUMM) 8.6 RBC (4.70 - 6.10 /CUMM) 2.89 L Hgb (14.0 - 18.0 G/DL) 8.3 L Hct (42 - 52 %) 25.7 L MCV (80.0 - 94.0 FL) 89.0 MCH (27.0 - 31.0 PG) 28.8 RDW (11.5 - 14.5 %) 20.1 H Plt Count (130 - 400 /CUMM) 160 MPV (7.4 - 10.4 FL) 8.9 Gran % (42.2 - 75.2 %) 56.2 Lymphocytes % (20.5 - 51.1 %) 33.2 Monocytes % (1.7 - 9.3 %) 9.8 H Eosinophils % (0 - 5 %) 0.5 Basophils % (0.0 - 2.0 %) 0.3 Absolute Granulocytes (1.4 - 6.5 /CUMM) 4.9 Segmented Neutrophils (42.2 - 75.2 %) 52 Band Neutrophils (0.0 - 5.0 %) 7 H Absolute Lymphocytes (1.2 - 3.4 /CUMM) 2.9 Lymphocytes (20.5 - 51.1 %) 33 Monocytes (1.7 - 9.3 %) 8 Absolute Monocytes (0.10 - 0.60 /CUMM) 0.8 H Absolute Eosinophils (0.0 - 0.7 /CUMM) 0 Absolute Basophils (0.0 - 0.2 /CUMM) 0 Platelet Estimate (ADEQUATE) ADEQUATE Polychromasia 1+ Hypochromic-Microcytic 1+ Ovalocytes FEW PUBS MCHC (33.0 - 37.0 G/DL) 32.3 L Other Body Source Fld Total RBCs Counted (%) 100 Last 24 Hours of Les Results: Sputum culture August 02 mixed jose david Assessment/Plan Impression: Stable with temperatures and white blood cell count remaining normal (on "stress " steroids) off antibiotics after over 2 weeks of treatment for VRE and Enterobacter isolated from the OR cultures following a perforated duodenal ulcer 25 days ago, with his hospital course complicated by an ongoing enteric leak despite a return to the OR for a duodenal repair 18 days ago. His recent CT scan of the abdomen and pelvis did not reveal any evidence of a collection, though he does have persistent purulent drainage from the inferior aspect of his incision, with the culture growing Escherichia coli and Group B strep, of unclear significance. His sputum culture is again growing mold, which likely represents contamination or colonization, particularly given his stable respiratory status, and should not require treatment. Suggestion: 1. Would remove Duvall catheter 2. Continue to follow off antibiotics
[2017-08-03 16:00] VITALS: BP 109/52
[2017-08-04] VITALS: BP 104/53
[2017-08-04 06:21] LABS: ABSOLUTE BASOPHIL COUNT 0 /CUMM (0.0-0.2); ABSOLUTE EOSINOPHIL COUNT 0 /CUMM (0.0-0.7); ABSOLUTE GRANULOCYTE CT 7.4 /CUMM (1.4-6.5); ABSOLUTE MONOCYTE COUNT 0.8 /CUMM (0.10-0.60); BASOPHIL % 0.2 % (0.0-2.0); EOSINOPHIL % 0.3 % (0-5); GRANULOCYTE % 65.9 % (42.2-75.2); HEMATOCRIT 28.4 % (42-52); MEAN CORPUSCULAR HGB 29.5 PG (27.0-31.0); MEAN CORPUSCULAR HGB CONC 33.2 G/DL (33.0-37.0); MEAN CORPUSCULAR VOLUME 89.1 FL (80.0-94.0); MEAN PLATELET VOLUME 8.6 FL (7.4-10.4); PLATELET COUNT 163 /CUMM (130-400); RBC DISTRIBUTION WIDTH 19.9 % (11.5-14.5); RED BLOOD CELL CT 3.19 /CUMM (4.70-6.10); WHITE BLOOD CELL COUNT 11.2 /CUMM (4.8-10.8)
[2017-08-04 08:00] VITALS: BP 120/60
--- NOTE | 2017-08-04 08:33 | PN- Resident CRCU ---
Solitario RODRÍGUEZ,Lulykatherine 08/04/17 0833: Subjective HPI/CRCU Issues: Status post perforation of duodenal ulcer requiring surgery and then repeat emergent surgery for peritonitis. -Septic shock on pressors, #Resolved -Ischemic heart disease with low ejection fraction -CAD/ICM No acute overnight events. Pt continues on Octreotide and Fentanyl. Tolerating wean trials. 24 Hour Events: HR 97.8/68/15/(104/53)/97 AC/PV: TV 500, FIO2 40, RR 10, PEEP 5 Objective Vital Signs & I&O Last 8 Hrs of Vitals and I&O: Intake & Output 08/04 1600 Intake Total 1047 Output Total 975 Balance 72 Intake, IV 328 Intake, Other 170 Intake, Tube 549 Feeding Output, 450 Drainage Output, 100 Gastric Drainage Output, Urine 425 Exam General Appearance: well developed/nourished, no apparent distress Ears, Nose, Throat: INTUBATED Respiratory: crackles Cardiovascular: regular rate/rhythm Gastrointestinal: non-tender, Distended with dagoberto in place. There is an ulcer about 3cm below dagoberto. THere is copious purulent drainage from ulcer. WILLEM drain x2 with dark serous drainage. Extremities: normal inspection Weaning Parameters NIF: 30 Minute Volume: 8.64 Resp rate: 18 Vt: 480 Heart Rate: 68 Weaning Schedule Start Time: 1740 Minute Volume: 8.64 Resp Rate: 18 Vt: 480 Heart Rate: 68 End Time: 2000 Minute Volume: 13.4 Resp Rate: 23 Vt: 583 Heart Rate: 68 Impression/Plan Impression/Problem List Impression: This is a 76-year-old male with past medical history of CAD with HFrEF, A. fib, AICD, previous infection of the hip with prolonged antibiotic, history of peptic ulcer disease, diabetes, nephrolithiasis who was transferred to the ICU for perforation of the duodenum with septic shock S/P repair with patch. Repeated CT of the abdomen performed on 07/15 revealed free air/extravasation of contrast into the peritoneal cavity and he was taken to the OR for ex-lap and had re- repair of duodenal ulcer with Fabrizio patch. He remained intubated with subsequent wean trials and extubated on 07/23/2017, unfortunately he was re- intubated on 07/26/2017 due to desaturations and respiratory failure. Pt con't to be intubated with [address] PLAN #Septic shock secondary to perforated duodenal ulcer A/P Fabrizio patch: Micro is shoiwng the body cx with VRE and respiratory cx with VRE. Repeat sputum cx on shows GPC and mold. A repeat swab of the draining wound on abdomen shows E. coli and Beta strep Group B. BCx negative to date. WBC today at 11.2. Pt afebrile. The WILLEM drain (x2) output is still considerable at 450cc every 8 hrs. Per surgery there is no plan for repeat OR intervention. However, pt appears to have large amounts of purulence from wound under incision. Negative aspergillus antibody. H.pylori negative. * D/C Meropenem 07/30 * D/C Cubicin Day 08/01. He got 14 days of abx * Follow-up on pending repeat culture results * Continue on fentanyl for sedation. * Changing dose of Solu-Cortef from 50 mg IV every 12--> 25mg IV q12 per Endo on 08/04 * Continue Protonix IV 40 mg twice a day * Continue octreotide drip-Plan is to continue drip for duration of intubation * Surgery following * STOP re-feeding the WILLEM drain succus 08/02 * Continue vent weaning trials History of PAF on Tikosyn * Continue to hold the Tikosyn * Appreciate cardiology recs DM: * Goal glucose between [id number]. Today elevated over 300. * Appreciate endocrinology recommendation UMSAN: RESOLVED. The renal injury is most likely secondary to ATN due to decreased renal perfusion from septic shock. * Appreciate nephrology recommendation * Titrate vent Hyponatremia: RESOLVED. Pt has Na 140 08/02 and 131 08/03. Two repeat Na at 137. Likely Lab error. Guarded prognosis Full code Nothing by mouth DVT prophylaxis with subcutaneous heparin Problem List: 1. Peritonitis 2. Ischemic bowel disease 3. Duodenal ulcer with perforation 4. Lactic acidosis Pain Ratin Tomorrow's Labs & Rationales: cbc icu Plan DVT/Prophylaxis: mechanical, pharmacological Trey Celeste MD 08/04/17 1104: Objective Current Medications: Current Medications Sig/Buck Start time Last Medication Dose Route Stop Time Status Admin Acetaminophen 1,000 MG Q6P PRN 07/16 0530 AC 07/20 N/A 1 UNIT IV 0659 Albuterol Sulfate 3 ML EVERY 4 HRS/AWAKE 07/27 0800 AC 08/05 INH 0839 Budesonide/ 2 PUF BID 07/26 1056 AC 08/05 Formoterol Fumarate INH 0839 Carvedilol 3.125 MG BID 07/28 1000 AC 08/05 PO 0933 Fentanyl Citrate 1,000 MCG Q13H 08/04 2200 AC 08/05 Dextrose/Water 250 ML IV 0122 Fentanyl Citrate 1,000 MCG Q13H 08/04 1415 DC Dextrose/Water 250 ML IV 08/04 215 Fentanyl Citrate 1,000 MCG Q13H 07/31 2000 DC 08/03 Dextrose/Water 250 ML IV 08/04 2159 1826 Hydrocortisone 25 MG Q12 08/04 1000 AC 08/05 Sodium Succinate IV 0932 Insulin Aspart 0 Q4 07/25 1000 AC 08/05 SC 0945 Insulin Detemir 20 UNITS BID 07/30 1000 AC 08/05 SC 0934 Magnesium Oxide 400 MG ONE ONE 08/04 2030 DC 08/04 PO 08/04 2031 2131 Nystatin 5 ML 4 TIMES/DAY 07/30 1400 AC 08/05 PO 0932 Octreotide Acetate 500 MCG Q20H 07/15 1400 AC 08/05 Dextrose/Water 500 ML IV 0015 Pantoprazole Sodium 40 MG BID 07/10 1016 AC 08/05 IV 0932 Attending MD Review Statement Attending Sign Off Attending Cosign Statement: I have: examined this patient, reviewed avalbl EMR data, personally reviewd images, discussd w/resident/PA/CHIEF INVESTIGATOR, discussed mgmt plan w/riya, discussed mgmt plan w/CM, discussed mgmt plan w/pt, agreed w/resident/PA/CHIEF INVESTIGATOR, amended to note. Other Findings: I, Trey Celeste M.D. have examined this patient, reviewed available EMR data, personally reviewed images, discussed with resident/PA/CHIEF INVESTIGATOR, discussed management plan with housestaff and nursing staff, discussed managment plan all of healthcare providers, discussed management plan with patient and/or family, agreed with resident/PA/CHIEF INVESTIGATOR. The past history and parts of the chart have been autopopulated. Impression 76-year-old man * hypoxemic respiratory failure likely secondary to mucous plugging * resolved septic shock * Hx of atrial flutter that is now controlled * He's also been on steroids for BP support for stress dosing. Plan Respiratory -continue mechanical ventilation -no plan for extubation yet -f/u cxr/abgs ID -f/u ID recs CVS -hemodynamically stable Heme -monitor cbc, coags Metabolic -ins/outs -monitor electrolytes Alimentary -TPN -octreotide gtt -f/u surgery Neuro -sedation as necessary DVT prophylaxis at all times TTS 35 min Goals of care need to be addressed Dr. Douglas to resume care 08/05/2017
--- NOTE | 2017-08-04 10:38 | RADIOLOGY REPORT ---
EXAMINATION: CR PORTABLE CHEST CLINICAL INFORMATION: Endotracheal tube position. Ventilated patient. COMPARISON: Multiple prior chest x-rays, most recent of which is dated 08/01/2017. TECHNIQUE: Portable AP semi-erect view of the chest was obtained. FINDINGS: Endotracheal tube tip is approximately 4 cm above the kika. Enteric tube courses into the abdomen with tip not included. Right atrial and right ventricular pacer leads/ICD lead are again seen, unchanged. Right subclavian PICC line is in place with tip in the deep SVC. Several EKG leads overlie the chest. The patient is status post median sternotomy. The cardiomediastinal silhouette is enlarged, unchanged. Lungs bilaterally are symmetrically expanded and demonstrate hazy opacities in the lower lungs, unchanged, consistent with layering effusions and associated parenchymal consolidation or atelectasis. No pneumothorax is seen. No pulmonary edema is noted. Bony structures are grossly unremarkable. IMPRESSION: 1. Endotracheal tube tip 4 cm above the kika. 2. Enteric tube courses into the abdomen with tip not included. 3. Right subclavian PICC line tip is in the deep SVC. 4. No change in bilateral layering small pleural effusions and associated bibasilar consolidation or atelectasis.
[2017-08-04 16:00] VITALS: BP 102/60
--- NOTE | 2017-08-04 16:55 | PN- Diabetes ---
Assessment/Plan Assessment: 76-year-old male with Hx of CAD with low ejection fraction, atrial fibrillation, AICD, previous infection of hip with prolonged antibiotic, history of peptic ulcer disease, diabetes and renal stone, was admitted for perforation of duodenum now with septic shock in ICU. He was on 3 pressors, TPN, octreotide drip and bicarb drip. His BP remained low and stress dose of steroid was initiated despite his am cortisol was 24.8. Patient is still on hydrocortisone 50 mg IV every 12 hours and octreotide drip. Patient was re-intubated on 07/26/2017. He has been off on TPN. Currently he is on tube feeding with Vital 75 mL per hour. Levemir was increased to 20 units twice a day and Novolog coverage every 4 hours was adjusted on . His blood sugars were 133, 136, 143, 125, 155 and 179. Plan: 1. decrease hydrocortisone to 25 mg iv twice aday; 2. continue the current insulin regimen for now; 3. monitor vital signs, FSGs and electrolytes. will follow. Subjective Subjective: patient remains intubated. Objective Last 24 Hrs of Vital Signs/I&O Vital Signs Date Time Temp Pulse Resp B/P B/P Pulse O2 O2 Flow FiO2 Mean Ox Delivery Rate 08/04 1344 40 08/04 1211 40 08/04 1200 95 Ventilator 40% 08/04 0951 69 114/62 08/04 0804 40 08/04 0800 98.7 78 26 120/60 97 Ventilator 40% 08/04 0800 95 Ventilator 40% 08/04 0636 40 08/04 0400 97 Ventilator 40% 08/04 0338 40 08/04 0138 40 08/04 0000 97.8 68 15 104/53 97 Ventilator 40% 08/04 0000 97 Ventilator 40% 08/03 2303 40 08/03 2230 69 105/53 08/03 2043 40 08/03 2000 99 Ventilator 40% 08/03 1659 40 Intake & Output 08/04 1600 08/04 0800 08/04 0000 Intake Total 1047 998 949 Output Total 975 1025 675 Balance 72 -27 274 Intake, IV 328 318 306 Intake, Other 170 Intake, Tube 549 600 528 Feeding Intake, Tube 80 115 Irrigant Number 0 0 Bowel Movements Output, 450 375 250 Drainage Output, 100 150 125 Gastric Drainage Output, Urine 425 500 300 Findings Pertinent Lab/Les Results: Laboratory Tests 08/04 08/04 0550 0535 Blood Gas pH (7.35 - 7.45 PH) 7.48 H pCO2 (35 - 45 TORR) 41 pO2 (80 - 100 TORR) 101 H HCO3 (21 - 28 MEQ/L) 30 H ABG O2 Sat (Measured) (>96.0 %) 97.0 P-50 (Temp Corrected) Y Carboxyhemoglobin (1.5 - 5.0 %) 0.3 L O2 Concentration % 40% Temperature (97.0 - 100.0 FARH) 98.2 Respiration Rate (BPM) 10 O2 Delivery Method ESPRIT Vent Mode AC Expiratory Pressure (CMH2O/P) 5 Tidal Volume (CC) 500 Chemistry Sodium (137 - 145 mmol/L) 137 Potassium (3.5 - 5.1 mmol/L) 4.0 Chloride (98 - 107 mmol/L) 100 Carbon Dioxide (22 - 30 mmol/L) 31 H Anion Gap (5 - 16) 6 BUN (9 - 20 mg/dL) 25 H Creatinine (0.7 - 1.2 mg/dL) 0.7 Estimated GFR (>60 ml/min) > 60 Glucose (65 - 99 mg/dL) 155 H Calcium (8.4 - 10.2 mg/dL) 7.9 L Phosphorus (2.5 - 4.5 mg/dL) 3.9 Magnesium (1.6 - 2.3 mg/dL) 1.7 Total Bilirubin (0.2 - 1.3 mg/dL) 0.5 AST (17 - 59 U/L) 21 ALT (21 - 72 U/L) 33 Albumin (3.5 - 5.0 g/dL) 2.1 L Hematology CBC w Diff MAN DIFF ORDERED WBC (4.8 - 10.8 /CUMM) 11.2 H RBC (4.70 - 6.10 /CUMM) 3.19 L Hgb (14.0 - 18.0 G/DL) 9.4 L Hct (42 - 52 %) 28.4 L MCV (80.0 - 94.0 FL) 89.1 MCH (27.0 - 31.0 PG) 29.5 RDW (11.5 - 14.5 %) 19.9 H Plt Count (130 - 400 /CUMM) 163 MPV (7.4 - 10.4 FL) 8.6 Gran % (42.2 - 75.2 %) 65.9 Lymphocytes % (20.5 - 51.1 %) 26.5 Monocytes % (1.7 - 9.3 %) 7.1 Eosinophils % (0 - 5 %) 0.3 Basophils % (0.0 - 2.0 %) 0.2 Absolute Granulocytes (1.4 - 6.5 /CUMM) 7.4 H Segmented Neutrophils (42.2 - 75.2 %) 63 Band Neutrophils (0.0 - 5.0 %) 12 H Absolute Lymphocytes (1.2 - 3.4 /CUMM) 3.0 Lymphocytes (20.5 - 51.1 %) 17 L Monocytes (1.7 - 9.3 %) 7 Absolute Monocytes (0.10 - 0.60 /CUMM) 0.8 H Absolute Eosinophils (0.0 - 0.7 /CUMM) 0 Absolute Basophils (0.0 - 0.2 /CUMM) 0 Metamyelocytes (0.0 - 1.0 %) 1 Platelet Estimate (ADEQUATE) ADEQUATE Polychromasia 1+ Poikilocytosis 1+ Basophilic Stippling SLIGHT Ovalocytes 1+ Stomatocytes FEW PUBS MCHC (33.0 - 37.0 G/DL) 33.2 Miscellaneous Phlebotomy Draw Site LEFT RADIAL Other Body Source Fld Total RBCs Counted (%) 100
[2017-08-05] VITALS: BP 110/60
[2017-08-05 05:19] LABS: ABSOLUTE BASOPHIL COUNT 0 /CUMM (0.0-0.2); ABSOLUTE EOSINOPHIL COUNT 0 /CUMM (0.0-0.7); ABSOLUTE GRANULOCYTE CT 4.6 /CUMM (1.4-6.5); ABSOLUTE LYMPH COUNT 2.2 /CUMM (1.2-3.4); ABSOLUTE MONOCYTE COUNT 0.6 /CUMM (0.10-0.60); BASOPHIL % 0.2 % (0.0-2.0); EOSINOPHIL % 0.5 % (0-5); HEMATOCRIT 27.4 % (42-52); MEAN CORPUSCULAR HGB 29.1 PG (27.0-31.0); MEAN CORPUSCULAR HGB CONC 32.4 G/DL (33.0-37.0); MEAN CORPUSCULAR VOLUME 89.8 FL (80.0-94.0); MEAN PLATELET VOLUME 8.7 FL (7.4-10.4); PLATELET COUNT 153 /CUMM (130-400); RBC DISTRIBUTION WIDTH 19.6 % (11.5-14.5); RED BLOOD CELL CT 3.05 /CUMM (4.70-6.10); WHITE BLOOD CELL COUNT 7.4 /CUMM (4.8-10.8)
[2017-08-05 08:00] VITALS: BP 118/60
--- NOTE | 2017-08-05 10:24 | RADIOLOGY REPORT ---
EXAMINATION: CR PORTABLE CHEST CLINICAL INFORMATION: Endotracheal tube position check. Ventilated patient. COMPARISON: Several prior chest x-rays, most recent of which is dated 08/04/2017. TECHNIQUE: Portable AP semierect view of the chest was obtained. FINDINGS: Endotracheal tube tip is approximately 4 cm above the kika. Enteric tube courses into the abdomen with tip not included. Right atrial pacer lead and right ventricular AICD leads are unchanged. Right subclavian PICC line tip is poorly visualized but can be followed to at least the mid SVC level. The patient is status post median sternotomy. Cardiac silhouette is enlarged, unchanged. No change is noted in the hazy opacities in the lung bases, left greater than right, consistent with layering effusions and associated parenchymal consolidation or atelectasis. No pneumothorax is seen. No pulmonary edema is noted. Bony structures are unremarkable. IMPRESSION: 1. Endotracheal tube tip 4 cm above the kika. 2. Enteric tube courses into the abdomen with tip not included. 3. Right subclavian PICC line tip poorly visualized and extending at least to the mid SVC level. 4. No change in bilateral small layering pleural effusions and associated bibasilar atelectasis or consolidation.
--- NOTE | 2017-08-05 10:36 | PN- CRCU ---
Subjective HPI/Critical Care Issues: Doing ok Intubated afebrile on steroids On tube feedings Ongoing trials Objective Current Medications: Current Medications Sig/Buck Start time Last Medication Dose Route Stop Time Status Admin Acetaminophen 1,000 MG Q6P PRN 07/16 0530 07/20 N/A 1 UNIT IV 0659 Albuterol Sulfate 3 ML EVERY 4 HRS/AWAKE 07/27 0800 AC 08/05 INH 0839 Budesonide/ 2 PUF BID 07/26 1056 AC 08/05 Formoterol Fumarate INH 0839 Carvedilol 3.125 MG BID 07/28 1000 AC 08/05 PO 0933 Fentanyl Citrate 1,000 MCG Q13H 08/04 2200 AC 08/05 Dextrose/Water 250 ML IV 0122 Fentanyl Citrate 1,000 MCG Q13H 08/04 1415 DC Dextrose/Water 250 ML IV 08/04 215 Fentanyl Citrate 1,000 MCG Q13H 07/31 2000 DC 08/03 Dextrose/Water 250 ML IV 08/04 2159 1826 Hydrocortisone 25 MG Q12 08/04 1000 AC 08/05 Sodium Succinate IV 0932 Insulin Aspart 0 Q4 07/25 1000 AC 08/05 SC 0945 Insulin Detemir 20 UNITS BID 07/30 1000 AC 08/05 SC 0934 Magnesium Oxide 400 MG ONE ONE 08/04 2030 DC 08/04 PO 08/04 2031 2131 Nystatin 5 ML 4 TIMES/DAY 07/30 1400 AC 08/05 PO 0932 Octreotide Acetate 500 MCG Q20H 07/15 1400 AC 08/05 Dextrose/Water 500 ML IV 0015 Pantoprazole Sodium 40 MG BID 07/10 1016 AC 08/05 IV 0932 Vital Signs & I&O Last 24 Hrs of Vitals and I&O: Vital Signs Date Time Temp Pulse Resp B/P B/P Pulse O2 O2 Flow FiO2 Mean Ox Delivery Rate 08/05 0933 69 114/58 08/05 0840 40 08/05 0800 98.1 70 18 118/60 94 Ventilator 40% 08/05 0800 94 Ventilator 40% 08/05 0400 93 Ventilator 40% 08/05 0326 40 08/05 0059 40 08/05 0000 92 Ventilator 40% 08/05 0000 97.3 69 15 110/60 92 Ventilator 40% 08/04 2212 40 08/04 2143 69 110/62 08/04 2000 96 Ventilator 40% 08/04 1920 40 08/04 1630 40 08/04 1600 Ventilator 40% 08/04 1600 97.7 68 16 102/60 96 Ventilator 40% 08/04 1344 40 08/04 1211 40 08/04 1200 95 Ventilator 40% Intake & Output 08/05 1600 08/05 0800 08/05 0000 Intake Total 996.9 1105.1 Output Total 1400 850 Balance -403.1 255.1 Intake, IV 336.9 355.1 Intake, Oral 0 0 Intake, Tube 580 610 Feeding Intake, Tube 80 140 Irrigant Number 0 Bowel Movements Output, 900 300 Drainage Output, 100 200 Gastric Drainage Output, Urine 400 350 Laboratory Tests 08/05 08/04 0400 0550 Chemistry Sodium (137 - 145 mmol/L) 137 137 Potassium (3.5 - 5.1 mmol/L) 3.8 4.0 Chloride (98 - 107 mmol/L) 97 L 100 Carbon Dioxide (22 - 30 mmol/L) 31 H 31 H Anion Gap (5 - 16) 8 6 BUN (9 - 20 mg/dL) 21 H 25 H Creatinine (0.7 - 1.2 mg/dL) 0.7 0.7 Estimated GFR (>60 ml/min) > 60 > 60 Glucose (65 - 99 mg/dL) 124 H 155 H Calcium (8.4 - 10.2 mg/dL) 7.8 L 7.9 L Phosphorus (2.5 - 4.5 mg/dL) 3.7 3.9 Magnesium (1.6 - 2.3 mg/dL) 1.7 1.7 Total Bilirubin (0.2 - 1.3 mg/dL) 0.5 0.5 AST (17 - 59 U/L) 21 21 ALT (21 - 72 U/L) 27 33 Albumin (3.5 - 5.0 g/dL) 2.0 L 2.1 L Hematology CBC w Diff MAN DIFF ORDERED MAN DIFF ORDERED WBC (4.8 - 10.8 /CUMM) 7.4 11.2 H RBC (4.70 - 6.10 /CUMM) 3.05 L 3.19 L Hgb (14.0 - 18.0 G/DL) 8.9 L 9.4 L Hct (42 - 52 %) 27.4 L 28.4 L MCV (80.0 - 94.0 FL) 89.8 89.1 MCH (27.0 - 31.0 PG) 29.1 29.5 RDW (11.5 - 14.5 %) 19.6 H 19.9 H Plt Count (130 - 400 /CUMM) 153 163 MPV (7.4 - 10.4 FL) 8.7 8.6 Gran % (42.2 - 75.2 %) 62.0 65.9 Lymphocytes % (20.5 - 51.1 %) 29.2 26.5 Monocytes % (1.7 - 9.3 %) 8.1 7.1 Eosinophils % (0 - 5 %) 0.5 0.3 Basophils % (0.0 - 2.0 %) 0.2 0.2 Absolute Granulocytes (1.4 - 6.5 /CUMM) 4.6 7.4 H Segmented Neutrophils (42.2 - 75.2 %) 52 63 Band Neutrophils (0.0 - 5.0 %) 15 H 12 H Absolute Lymphocytes (1.2 - 3.4 /CUMM) 2.2 3.0 Lymphocytes (20.5 - 51.1 %) 15 L 17 L Monocytes (1.7 - 9.3 %) 11 H 7 Absolute Monocytes (0.10 - 0.60 /CUMM) 0.6 0.8 H Eosinophils (0 - 5.0 %) 3 Absolute Eosinophils (0.0 - 0.7 /CUMM) 0 0 Basophils (0.0 - 2.0 %) 1 Absolute Basophils (0.0 - 0.2 /CUMM) 0 0 Metamyelocytes (0.0 - 1.0 %) 3 H 1 Nucleated RBCs (0.0 - 0.0 /100WBC) 1 H Platelet Estimate (ADEQUATE) ADEQUATE ADEQUATE Polychromasia 1+ 1+ Hypochromic-Microcytic 1+ Poikilocytosis 1+ 1+ Basophilic Stippling SLIGHT SLIGHT Ovalocytes 1+ 1+ Stomatocytes FEW PUBS MCHC (33.0 - 37.0 G/DL) 32.4 L 33.2 Other Body Source Fld Total RBCs Counted (%) 100 100 08/04 08/03 08/03 0535 1400 1238 Blood Gas pH (7.35 - 7.45 PH) 7.48 H pCO2 (35 - 45 TORR) 41 pO2 (80 - 100 TORR) 101 H HCO3 (21 - 28 MEQ/L) 30 H ABG O2 Sat (Measured) (>96.0 %) 97.0 P-50 (Temp Corrected) Y Carboxyhemoglobin (1.5 - 5.0 %) 0.3 L O2 Concentration % 40% Temperature (97.0 - 100.0 FARH) 98.2 Respiration Rate (BPM) 10 O2 Delivery Method ESPRIT Vent Mode AC Expiratory Pressure (CMH2O/P) 5 Tidal Volume (CC) 500 Chemistry Sodium (137 - 145 mmol/L) Cancelled 137 Potassium (3.5 - 5.1 mmol/L) Cancelled 3.7 Chloride (98 - 107 mmol/L) Cancelled 100 Carbon Dioxide (22 - 30 mmol/L) Cancelled 32 H Anion Gap (5 - 16) Cancelled 5 BUN (9 - 20 mg/dL) Cancelled 26 H Creatinine (0.7 - 1.2 mg/dL) Cancelled 0.6 L Estimated GFR (>60 ml/min) > 60 Glucose (65 - 99 mg/dL) Cancelled 96 Calcium (8.4 - 10.2 mg/dL) Cancelled 7.8 L Phosphorus (2.5 - 4.5 mg/dL) Cancelled 3.4 Magnesium (1.6 - 2.3 mg/dL) Cancelled 1.8 Total Bilirubin (0.2 - 1.3 mg/dL) Cancelled 0.5 AST (17 - 59 U/L) Cancelled 25 ALT (21 - 72 U/L) Cancelled 37 Albumin (3.5 - 5.0 g/dL) Cancelled 2.0 L Miscellaneous Phlebotomy Draw Site LEFT RADIAL Microbiology Date/Time Procedure - Status Source Growth 08/02 1930 Respiratory Culture - RES LOWER RESP MOLD GRAM POSITIVE COCCI 08/02 1930 Gram Stain - RES LOWER RESP Impression/Plan Impression/Plan Impression/Plan: Afebrile. Intubated on multiple drips Skin reveals no rash. HEENT negative. Neck supple with no adenopathy; Picc line in place Lungs decreased breath sounds bilaterally. Heart regular rhythm with no murmur. Abdomen is obese, distended, tender to palpation, Incision noted with a gabriela drain in the rt side, feeding tube on the left side Extremities superficial ulcerations over the anterior tibial aspects of both legs, with 1+ edema bilaterally. Neuro is without focality. Duvall catheter is in place IMPRESSION This is a 76-year-old gentleman with significant ischemic heart, low ejection fraction, atrial fibrillation, previous AICD, previous 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 with prolonged antibiotic, previous history of peptic ulcer disease, diabetes, sinus rhythm upon admission was on Tikosyn, hyperlipidemia, apparently has never smoked before, previous history of lithotripsy, CABG, previous hip prosthesis infection status post removal of prosthesis in early 2017 now has the following issues * S/p Perf large DU ulcer s/p surg and then rpt emergent surg for acute peritonitis, followed by redo surg for persistant leak, now has sig gabriela drainage with ng suction and somatostatin * S/p Severe shock septic on multiple pressors now off pressors * Hypoxic respiratory failure due to above with no clinical evidence suggestive of pneumonia. Sputum does have gram positive cocci and mold ID on board * Sig drainage from the gabriela biliary leak * Significant ischemic heart disease with low ejection fraction high risk for fluid overload. Previous pafib in sinus now with a pacer and AICD. 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 * H/O LIAM was on cpap * On stress dose steroids now being weaned off RECOMMENDATION * COnt current care * Dc fentanly drip and use prn fentanyl for agitation * Lasix 40 mg one dose now * Replace potassium and give one gram of magnesium * Intravenous pantoprazole * Heparin subcutaneous please resume if there is no contraindication please * Cardio follow up Pt critically ill tts 40 mins
--- NOTE | 2017-08-05 11:13 | PN- General Surgery ---
Surgical Brief Attending Note Brief Attending Note: no overall changes to care.
--- NOTE | 2017-08-05 11:44 | PN- Infect Dx ---
Subjective Subjective: Afebrile on steroids without complaints Objective Last 24 Hrs of Vital Signs/I&O Vital Signs Date Time Temp Pulse Resp B/P B/P Pulse O2 O2 Flow FiO2 Mean Ox Delivery Rate 08/05 1122 40 08/05 0933 69 114/58 08/05 0840 40 08/05 08 98.1 70 18 118/60 94 Ventilator 40% 08/05 08 94 Ventilator 40% 08/05 0400 93 Ventilator 40% 08/05 0326 40 08/05 0059 40 08/05 0000 92 Ventilator 40% 08/05 0000 97.3 69 15 110/60 92 Ventilator 40% 08/04 2212 40 08/04 2143 69 110/62 08/04 2000 96 Ventilator 40% 08/04 1920 40 08/04 1630 40 08/04 1600 Ventilator 40% 08/04 1600 97.7 68 16 102/60 96 Ventilator 40% 08/04 1344 40 08/04 1211 40 08/04 1200 95 Ventilator 40% Intake & Output 08/05 1600 08/05 0808/05 0000 Intake Total 996.9 1105.1 Output Total 1400 850 Balance -403.1 255.1 Intake, IV 336.9 355.1 Intake, Oral 0 0 Intake, Tube 580 610 Feeding Intake, Tube 80 140 Irrigant Number 0 Bowel Movements Output, 900 300 Drainage Output, 100 200 Gastric Drainage Output, Urine 400 350 Physical Exam Other Physical Findings: He is awake and alert on the ventilator in no acute distress Lungs scattered rhonchi Heart regular rhythm with no murmur Abdomen is distended, nontender with positive bowel sounds; incision unchanged with purulent drainage from the inferior aspect; WILLEM drains remain in place with persistent significant output Extremities no cyanosis, clubbing or edema; PICC in place in the right upper extremity with no inflammation at the site Duvall catheter remains in place Results Last 24 Hours of Lab Results: Laboratory Tests 08/05 400 Chemistry Sodium (137 - 145 mmol/L) 137 Potassium (3.5 - 5.1 mmol/L) 3.8 Chloride (98 - 107 mmol/L) 97 L Carbon Dioxide (22 - 30 mmol/L) 31 H Anion Gap (5 - 16) 8 BUN (9 - 20 mg/dL) 21 H Creatinine (0.7 - 1.2 mg/dL) 0.7 Estimated GFR (>60 ml/min) > 60 Glucose (65 - 99 mg/dL) 124 H Calcium (8.4 - 10.2 mg/dL) 7.8 L Phosphorus (2.5 - 4.5 mg/dL) 3.7 Magnesium (1.6 - 2.3 mg/dL) 1.7 Total Bilirubin (0.2 - 1.3 mg/dL) 0.5 AST (17 - 59 U/L) 21 ALT (21 - 72 U/L) 27 Albumin (3.5 - 5.0 g/dL) 2.0 L Hematology CBC w Diff MAN DIFF ORDERED WBC (4.8 - 10.8 /CUMM) 7.4 RBC (4.70 - 6.10 /CUMM) 3.05 L Hgb (14.0 - 18.0 G/DL) 8.9 L Hct (42 - 52 %) 27.4 L MCV (80.0 - 94.0 FL) 89.8 MCH (27.0 - 31.0 PG) 29.1 RDW (11.5 - 14.5 %) 19.6 H Plt Count (130 - 400 /CUMM) 153 MPV (7.4 - 10.4 FL) 8.7 Gran % (42.2 - 75.2 %) 62.0 Lymphocytes % (20.5 - 51.1 %) 29.2 Monocytes % (1.7 - 9.3 %) 8.1 Eosinophils % (0 - 5 %) 0.5 Basophils % (0.0 - 2.0 %) 0.2 Absolute Granulocytes (1.4 - 6.5 /CUMM) 4.6 Segmented Neutrophils (42.2 - 75.2 %) 52 Band Neutrophils (0.0 - 5.0 %) 15 H Absolute Lymphocytes (1.2 - 3.4 /CUMM) 2.2 Lymphocytes (20.5 - 51.1 %) 15 L Monocytes (1.7 - 9.3 %) 11 H Absolute Monocytes (0.10 - 0.60 /CUMM) 0.6 Eosinophils (0 - 5.0 %) 3 Absolute Eosinophils (0.0 - 0.7 /CUMM) 0 Basophils (0.0 - 2.0 %) 1 Absolute Basophils (0.0 - 0.2 /CUMM) 0 Metamyelocytes (0.0 - 1.0 %) 3 H Nucleated RBCs (0.0 - 0.0 /100WBC) 1 H Platelet Estimate (ADEQUATE) ADEQUATE Polychromasia 1+ Hypochromic-Microcytic 1+ Poikilocytosis 1+ Basophilic Stippling SLIGHT Ovalocytes 1+ PUBS MCHC (33.0 - 37.0 G/DL) 32.4 L Other Body Source Fld Total RBCs Counted (%) 100 Last 24 Hours of Les Results: Sputum culture August 02 positive for mold and mixed jose david Recent Imaging Studies: Chest x-ray August 05, personally reviewed, reveals no change in the bibasilar densities Assessment/Plan Impression: Stable with temperatures and white blood cell count remaining normal, though now with increasing bands, raising concern for a new or residual infection, possibly related to his persistent purulent drainage from the inferior aspect of the incision, or to the development of a collection related to his ongoing enteric leak, still with significant output from both WILLEM drains now 27 days status post surgery for a perforated duodenal ulcer and 20 days status post a duodenal repair for the persistent enteric leak. His sputum continues to grow mold, which presumably represents colonization, with his respiratory status stable. Suggestion: 1. Consider repeat CT of the abdomen and pelvis 2. Continue to follow off antibiotics pending above
--- NOTE | 2017-08-05 15:54 | PN- Diabetes ---
Assessment/Plan Assessment: 76-year-old male with Hx of CAD with low ejection fraction, atrial fibrillation, AICD, previous infection of hip with prolonged antibiotic, history of peptic ulcer disease, diabetes and renal stone, was admitted for perforation of duodenum now with septic shock in ICU. He was on 3 pressors, TPN, octreotide drip and bicarb drip. His BP remained low and stress dose of steroid was initiated despite his am cortisol was 24.8. Patient is still on octreotide drip. Patient was re-intubated on 07/26/2017. He has been off on TPN. Currently he is on tube feeding with Vital 75 mL per hour. Levemir was increased to 20 units twice a day and Novolog coverage every 4 hours was adjusted on . His blood sugars [id number], 122 and 185. Hydrocortisone was decreased to 25 mg iv every 12 hours. Plan: continue the current insulin regimen for now; continue the current Hydrocortisone 25 mg iv every 12 hours; monitor FSGs, vital signs and electrolytes. will follow. Subjective Subjective: patient remains intubated. Objective Last 24 Hrs of Vital Signs/I&O Vital Signs Date Time Temp Pulse Resp B/P B/P Pulse O2 O2 Flow FiO2 Mean Ox Delivery Rate 08/05 1419 40 08/05 1159 95 Ventilator 40% 08/05 1122 40 08/05 0933 69 114/58 08/05 0840 40 08/05 0800 98.1 70 18 118/60 94 Ventilator 40% 08/05 0800 94 Ventilator 40% 08/05 0400 93 Ventilator 40% 08/05 0326 40 08/05 0059 40 08/05 0000 92 Ventilator 40% 08/05 0000 97.3 69 15 110/60 92 Ventilator 40% 08/04 2212 40 08/04 2143 69 110/62 08/04 2000 96 Ventilator 40% 08/04 1920 40 08/04 1630 40 08/04 1600 Ventilator 40% 08/04 1600 97.7 68 16 102/60 96 Ventilator 40% Intake & Output 08/05 1600 08/05 0800 12 0000 Intake Total 905 996.9 1105.1 Output Total 1120 1400 850 Balance -215 -403.1 255.1 Intake, IV 310 336.9 355.1 Intake, Oral 0 0 0 Intake, Tube 455 580 610 Feeding Intake, Tube 140 80 140 Irrigant Number 0 0 Bowel Movements Output, 350 900 300 Drainage Output, 120 100 200 Gastric Drainage Output, Urine 650 400 350 Findings Pertinent Lab/Les Results: Laboratory Tests 08/05 08/05 1220 0400 Blood Gas pH (7.35 - 7.45 PH) 7.52 H pCO2 (35 - 45 TORR) 38 pO2 (80 - 100 TORR) 68 L HCO3 (21 - 28 MEQ/L) 30 H ABG O2 Sat (Measured) (>96.0 %) 93.0 L P-50 (Temp Corrected) N Carboxyhemoglobin (1.5 - 5.0 %) 0.1 L O2 Concentration % 40% Respiration Rate (BPM) 23 O2 Delivery Method VENT Vent Mode CPAP/PSV TRIAL Expiratory Pressure (CMH2O/P) 5 Tidal Volume (CC) 669 Pressure Support (CMH2O/P) 6 Chemistry Sodium (137 - 145 mmol/L) 137 Potassium (3.5 - 5.1 mmol/L) 3.8 Chloride (98 - 107 mmol/L) 97 L Carbon Dioxide (22 - 30 mmol/L) 31 H Anion Gap (5 - 16) 8 BUN (9 - 20 mg/dL) 21 H Creatinine (0.7 - 1.2 mg/dL) 0.7 Estimated GFR (>60 ml/min) > 60 Glucose (65 - 99 mg/dL) 124 H Calcium (8.4 - 10.2 mg/dL) 7.8 L Phosphorus (2.5 - 4.5 mg/dL) 3.7 Magnesium (1.6 - 2.3 mg/dL) 1.7 Total Bilirubin (0.2 - 1.3 mg/dL) 0.5 AST (17 - 59 U/L) 21 ALT (21 - 72 U/L) 27 Albumin (3.5 - 5.0 g/dL) 2.0 L Hematology CBC w Diff MAN DIFF ORDERED WBC (4.8 - 10.8 /CUMM) 7.4 RBC (4.70 - 6.10 /CUMM) 3.05 L Hgb (14.0 - 18.0 G/DL) 8.9 L Hct (42 - 52 %) 27.4 L MCV (80.0 - 94.0 FL) 89.8 MCH (27.0 - 31.0 PG) 29.1 RDW (11.5 - 14.5 %) 19.6 H Plt Count (130 - 400 /CUMM) 153 MPV (7.4 - 10.4 FL) 8.7 Gran % (42.2 - 75.2 %) 62.0 Lymphocytes % (20.5 - 51.1 %) 29.2 Monocytes % (1.7 - 9.3 %) 8.1 Eosinophils % (0 - 5 %) 0.5 Basophils % (0.0 - 2.0 %) 0.2 Absolute Granulocytes (1.4 - 6.5 /CUMM) 4.6 Segmented Neutrophils (42.2 - 75.2 %) 52 Band Neutrophils (0.0 - 5.0 %) 15 H Absolute Lymphocytes (1.2 - 3.4 /CUMM) 2.2 Lymphocytes (20.5 - 51.1 %) 15 L Monocytes (1.7 - 9.3 %) 11 H Absolute Monocytes (0.10 - 0.60 /CUMM) 0.6 Eosinophils (0 - 5.0 %) 3 Absolute Eosinophils (0.0 - 0.7 /CUMM) 0 Basophils (0.0 - 2.0 %) 1 Absolute Basophils (0.0 - 0.2 /CUMM) 0 Metamyelocytes (0.0 - 1.0 %) 3 H Nucleated RBCs (0.0 - 0.0 /100WBC) 1 H Platelet Estimate (ADEQUATE) ADEQUATE Polychromasia 1+ Hypochromic-Microcytic 1+ Poikilocytosis 1+ Basophilic Stippling SLIGHT Ovalocytes 1+ PUBS MCHC (33.0 - 37.0 G/DL) 32.4 L Miscellaneous Phlebotomy Draw Site LEFT RADIAL Other Body Source Fld Total RBCs Counted (%) 100
[2017-08-05 16:00] VITALS: BP 100/70
--- NOTE | 2017-08-05 18:31 | PN- Resident CRCU ---
Subjective HPI/CRCU Issues: Hypoxic respiratory failure. Perforated duodenal ulcer status post duodenal repair and enteric leak. HPI Heart failure with reduced ejection fraction status post AICD. Intubated. 24 Hour Events: Vitals: Heart rate 69, respiratory rate 20, blood pressure 117/57, and satting 93% on vent. Vent settings: Tidal volume 500, FiO2 40, rate 23, PEEP of 5. Ins: 3 149. Out: 2775 Overnight events. Patient afebrile. Objective Vital Signs & I&O Last 8 Hrs of Vitals and I&O: Intake & Output 08/05 1600 Intake Total 905 Output Total 1120 Balance -215 Intake, IV 310 Intake, Oral 0 Intake, Tube 455 Feeding Intake, Tube 140 Irrigant Number 0 Bowel Movements Output, 350 Drainage Output, 120 Gastric Drainage Output, Urine 650 Exam General Appearance: no apparent distress, sedated, intubated Neck: supple Respiratory: no respiratory distress, decreased breath sounds, crackles Cardiovascular: regular rate/rhythm Gastrointestinal: Pt still has 1in draining wound under dagoberto. Less purulence than before but so deep can see the stitches placed in the under fascial layer. Weaning Parameters NIF: 32 Minute Volume: 15.1 Resp rate: 24 Vt: 631 Heart Rate: 69 Weaning Schedule Start Time: 1017 Minute Volume: 16.3 Resp Rate: 25 Vt: 652 Heart Rate: 69 End Time: 1240 Minute Volume: 10.9 Resp Rate: 21 Vt: 520 Heart Rate: 69 Current Medications: Current Medications Sig/Buck Start time Last Medication Dose Route Stop Time Status Admin Acetaminophen 1,000 MG Q6P PRN 07/16 0530 AC 07/20 N/A 1 UNIT IV 0659 Albuterol Sulfate 3 ML EVERY 4 HRS/AWAKE 07/27 0800 AC 08/05 INH 1641 Budesonide/ 2 PUF BID 07/26 1056 AC 08/05 Formoterol Fumarate INH 0839 Carvedilol 3.125 MG BID 07/28 1000 AC 08/05 PO 0933 Fentanyl Citrate 25 MCG Q4P PRN 08/05 1215 AC IV Fentanyl Citrate 1,000 MCG Q13H 08/04 2200 DC 08/05 Dextrose/Water 250 ML IV 0122 Fentanyl Citrate 1,000 MCG Q13H 08/04 1415 DC Dextrose/Water 250 ML IV 08/04 2159 Furosemide 40 MG ONCE ONE 08/05 1215 DC 08/05 IV 08/05 1216 1220 Heparin Sodium 5,000 UNIT Q8 08/05 1400 AC 08/05 (Porcine) SC 1404 Hydrocortisone 25 MG Q12 08/04 1000 AC 08/05 Sodium Succinate IV 0932 Insulin Aspart 0 Q4 07/25 1000 AC 08/05 SC 1803 Insulin Detemir 20 UNITS BID 07/30 1000 AC 08/05 SC 0934 Magnesium Oxide 400 MG ONE ONE 08/04 2030 DC 08/04 PO 08/04 Nystatin 5 ML 4 TIMES/DAY 07/30 1400 AC 08/05 PO 1803 Octreotide Acetate 500 MCG Q20H 07/15 1400 AC 08/05 Dextrose/Water 500 ML IV 1221 Pantoprazole Sodium 40 MG BID 07/10 1016 AC 08/05 IV 0932 Potassium Chloride 20 MEQ ONCE ONE 08/05 1300 DC 08/05 IV 08/05 1301 1329 Potassium Chloride 10 MEQ Q1H 08/05 1215 DC IV 08/05 1316 Impression/Plan Impression/Problem List Impression: This is a 76-year-old male with past medical history of CAD with HFrEF, A. fib, AICD, previous infection of the hip with prolonged antibiotic, history of peptic ulcer disease, diabetes, nephrolithiasis who was transferred to the ICU for perforation of the duodenum with septic shock S/P repair with patch. Repeated CT of the abdomen performed on 07/15 revealed free air/extravasation of contrast into the peritoneal cavity and he was taken to the OR for ex-lap and had re- repair of duodenal ulcer with Fabrizio patch. He remained intubated with subsequent wean trials and extubated on 07/23/2017, unfortunately he was re- intubated on 07/26/2017 due to desaturations and respiratory failure. Pt con't to be intubated with [address] PLAN #Septic shock secondary to perforated duodenal ulcer A/P Fabrizio patch: Micro is shoiwng the body cx with VRE and respiratory cx with VRE. Repeat sputum cx on shows GPC and mold. A repeat swab of the draining wound on abdomen shows E. coli and Beta strep Group B. BCx negative to date. WBC today at 7.4 but with 15 bands. Pt afebrile. The WILLEM drain (x2) output is still considerable at 450cc every 8 hrs. Per surgery there is no plan for repeat OR intervention. However, pt appears to have large amounts of purulence from wound under incision. Negative aspergillus antibody. H.pylori negative. * D/C Meropenem 07/30 and D/C Cubicin Day 08/01. He got 14 days of abx * Follow-up on pending repeat culture results * Continue on fentanyl for sedation. * Solu-Cortef 25mg IV q12 per Endo on 08/04 * Continue Protonix IV 40 mg twice a day * Continue octreotide drip-Plan is to continue drip for duration of intubation * Surgery following * STOP re-feeding the WILLEM drain succus 08/02 * Continue vent weaning trials * IV lasix 40mg x1. * D/C Fentanyl drip and start pt on Fentanyl PRN History of PAF on Tikosyn * Continue to hold the Tikosyn * Appreciate cardiology recs DM: * Goal glucose between [id number]. Today elevated over 300. * Appreciate endocrinology recommendation USMAN: RESOLVED. The renal injury is most likely secondary to ATN due to decreased renal perfusion from septic shock. * Appreciate nephrology recommendation * Titrate vent Hyponatremia: RESOLVED. Pt has Na 140 08/02 and 131 08/03. Two repeat Na at 137. Likely Lab error. Guarded prognosis Full code Nothing by mouth DVT prophylaxis with subcutaneous heparin Problem List: 1. Peritonitis 2. Ischemic bowel disease Pain Ratin Tomorrow's Labs & Rationales: icu cbc Plan DVT/Prophylaxis: mechanical, pharmacological
[2017-08-06] VITALS: BP 114/63
[2017-08-06 05:03] LABS: ABSOLUTE BASOPHIL COUNT 0 /CUMM (0.0-0.2); ABSOLUTE EOSINOPHIL COUNT 0 /CUMM (0.0-0.7); ABSOLUTE GRANULOCYTE CT 7.1 /CUMM (1.4-6.5); ABSOLUTE LYMPH COUNT 3.6 /CUMM (1.2-3.4); BASOPHIL % 0.4 % (0.0-2.0); EOSINOPHIL % 0.4 % (0-5); GRANULOCYTE % 60.6 % (42.2-75.2); HEMATOCRIT 29.9 % (42-52); MEAN CORPUSCULAR HGB 29.1 PG (27.0-31.0); MEAN CORPUSCULAR HGB CONC 32.8 G/DL (33.0-37.0); MEAN CORPUSCULAR VOLUME 88.7 FL (80.0-94.0); MEAN PLATELET VOLUME 8.3 FL (7.4-10.4); PLATELET COUNT 194 /CUMM (130-400); RED BLOOD CELL CT 3.38 /CUMM (4.70-6.10)
[2017-08-06 05:07] LABS: WHITE BLOOD CELL COUNT 11.8 /CUMM (4.8-10.8)
--- NOTE | 2017-08-06 07:39 | RADIOLOGY REPORT ---
EXAMINATION: XR PORTABLE CHEST CLINICAL INFORMATION: Acute hypoxic respiratory failure. COMPARISON: Portable chest 08/05/2017. TECHNIQUE: Portable frontal view of the chest was obtained. FINDINGS: There is cardiomegaly with normal pulmonary vascularity. The lungs are hypoventilated with bilateral basilar haziness which could be result of effusion and/or underlying atelectasis. There are pacer electrodes in right atrium and right ventricle. Tip of endotracheal tube lies approximately 2.5 cm above the kika. Enteric tube is below diaphragm in the stomach with tip not visualized on this image. Right sided PICC line tip is likely in the mid SVC however not well visualized on this exam. No gross bony abnormality seen. Median sternotomy sutures are noted from previous intervention. IMPRESSION: Cardiomegaly without congestion. Bibasilar haziness question effusion versus underlying atelectasis. Support lines and catheters appear in satisfactory position and stable from 08/05/2017 exam.
[2017-08-06 08:00] VITALS: BP 120/70
--- NOTE | 2017-08-06 08:31 | PN- Resident CRCU ---
Cipriano Sadler MD,[facility] 08/06/17 0830: Subjective HPI/CRCU Issues: Hypoxic respiratory failure. Perforated duodenal ulcer status post duodenal repair and enteric leak. HPI Heart failure with reduced ejection fraction status post AICD. Intubated. 24 Hour Events: Patient visited today, sedated. intubated, was lying in bed comfortably in no acute distress. On fentanyl and octerotide drip, had increased WBC today, requested for CT adbomen and Pelvic. no other events. Objective Vital Signs & I&O Last 8 Hrs of Vitals and I&O: T: No fever Paced, VA 70s, BP unremarkable Vent: AC,10/500/40/5 O2 sat: >90% Intake: 2572 Output: 3450 Exam General Appearance: no apparent distress, sedated, intubated, obese Head: atraumatic, normal appearance Neck: normal inspection Respiratory: normal breath sounds, chest non-tender, No ronchi or wheezing Cardiovascular: regular rate/rhythm Gastrointestinal: soft, Mid line insicion, purulent drains minimal. Extremities: no edema Weaning Parameters NIF: 32 Minute Volume: 9.68 Resp rate: 18 Vt: 538 Heart Rate: 75 Weaning Schedule Start Time: 2030 Minute Volume: 9.68 Resp Rate: 18 Vt: 538 Heart Rate: 75 End Time: 2200 Minute Volume: 11.0 Resp Rate: 20 Vt: 554 Heart Rate: 69 Current Medications: Current Medications Sig/Buck Start time Last Medication Dose Route Stop Time Status Admin Acetaminophen 1,000 MG Q6P PRN 07/16 0530 AC 07/20 N/A 1 UNIT IV 0659 Albuterol Sulfate 3 ML EVERY 4 HRS/AWAKE 07/27 0800 AC 08/06 INH 1141 Budesonide/ 2 PUF BID 07/26 1056 AC 08/06 Formoterol Fumarate INH 0801 Carvedilol 3.125 MG BID 07/28 1000 AC 08/06 PO 1027 Fentanyl Citrate 25 MCG Q4P PRN 08/05 2130 AC 08/06 IV 1021 Fentanyl Citrate 25 MCG Q4P PRN 08/05 1215 DC IV Heparin Sodium 5,000 UNIT Q8 08/05 1400 AC 08/06 (Porcine) SC 0612 Hydrocortisone 25 MG Q12 08/04 1000 AC 08/06 Sodium Succinate IV 1022 Insulin Aspart 0 Q4 07/25 1000 AC 08/06 SC 1032 Insulin Detemir 20 UNITS BID 07/30 1000 AC 08/06 SC 1031 Nystatin 5 ML 4 TIMES/DAY 07/30 1400 AC 08/06 PO 1022 Octreotide Acetate 500 MCG Q20H 07/15 1400 AC 08/06 Dextrose/Water 500 ML IV 0613 Pantoprazole Sodium 40 MG BID 07/10 1016 AC 08/06 IV 1022 Potassium Chloride 20 MEQ ONCE ONE 08/05 1300 DC 08/05 IV 08/05 1301 1329 Potassium Chloride 10 MEQ Q1H 08/05 1215 DC IV 08/05 1316 Impression/Plan Impression/Problem List Impression: This is a 76-year-old male with past medical history of CAD with HFrEF, A. fib, AICD, previous infection of the hip with prolonged antibiotic, history of peptic ulcer disease, diabetes, nephrolithiasis who was transferred to the ICU for perforation of the duodenum with septic shock S/P repair with patch. Repeated CT of the abdomen performed on 07/15 revealed free air/extravasation of contrast into the peritoneal cavity and he was taken to the OR for ex-lap and had re- repair of duodenal ulcer with Fabrizio patch. He remained intubated with subsequent wean trials and extubated on 07/23/2017, unfortunately he was re- intubated on 07/26/2017 due to desaturations and respiratory failure. Pt con't to be intubated with [address] PLAN #Septic shock secondary to perforated duodenal ulcer A/P Fabrizio patch: Micro is shoiwng the body cx with VRE and respiratory cx with VRE. Repeat sputum cx on shows GPC and mold. A repeat swab of the draining wound on abdomen shows E. coli and Beta strep Group B. BCx negative to date. WBC today at 7.4 but with 15 bands. Pt afebrile. The WILLEM drain (x2) output is still considerable at 450cc every 8 hrs. Per surgery there is no plan for repeat OR intervention. However, pt appears to have large amounts of purulence from wound under incision. Negative aspergillus antibody. H.pylori negative. With respect to increased WBC and bandemia, repeated CT scan was done that showed relatively increased fluid collection in the abdominal wall. Patient was not recieving any antibiotics. ID was contacted, Dr Bocanegra recommended to hold off antibiotics and get sood culture. Surgical PA was contacted (Abimbola), informed that no surgical intervention is not needed at this point and need to consult IR for drainage. * D/C Meropenem 07/30 and D/C Cubicin Day 08/01. He got 14 days of abx * Follow-up on pending repeat culture results * Continue on fentanyl for sedation. * Solu-Cortef 25mg IV q12 per Endo on 08/04 * Continue Protonix IV 40 mg twice a day * Continue octreotide drip-Plan is to continue drip for duration of intubation * Surgery following * STOP re-feeding the WILLEM drain succus 08/02 * Continue vent weaning trials * IV lasix 40mg x1. * D/C Fentanyl drip and start pt on Fentanyl PRN * Follow sood culture * Contact IR tomorrow for considering drainage History of PAF on Tikosyn * Continue to hold the Tikosyn * Appreciate cardiology recs DM: * Goal glucose between [id number]. Today elevated over 300. * Appreciate endocrinology recommendation USMAN: RESOLVED. The renal injury is most likely secondary to ATN due to decreased renal perfusion from septic shock. * Appreciate nephrology recommendation * Titrate vent Hyponatremia: RESOLVED. Pt has Na 140 08/02 and 131 08/03. Two repeat Na at 137. Likely Lab error. Guarded prognosis Full code Nothing by mouth DVT prophylaxis with subcutaneous heparin Problem List: 1. Peritonitis 2. Ischemic bowel disease Pain Ratin Tomorrow's Labs & Rationales: CB ICu bundle, ABG CXR Plan DVT/Prophylaxis: mechanical, pharmacological Katalina Hoskins MD 08/06/17 1328: Attending MD Review Statement Attending Sign Off Attending Cosign Statement: I have: examined this patient, reviewed [facility] EMR data, personally reviewd images, discussd w/resident/PA/EXTRUDER TENDER, discussed mgmt plan w/riya, agreed w/resident/ PA/EXTRUDER TENDER.
--- NOTE | 2017-08-06 09:20 | PN- Diabetes ---
Assessment/Plan Assessment: 76-year-old male with Hx of CAD with low ejection fraction, atrial fibrillation, AICD, previous infection of hip with prolonged antibiotic, history of peptic ulcer disease, diabetes and renal stone, was admitted for perforation of duodenum now with septic shock in ICU. He was on 3 pressors, TPN, octreotide drip and bicarb drip. His BP remained low and stress dose of steroid was initiated despite his am cortisol was 24.8. Patient is still on octreotide drip. Patient was re-intubated on 07/26/2017. He has been off on TPN. Currently he is on tube feeding with Vital 75 mL per hour. Levemir was increased to 20 units twice a day and Novolog coverage every 4 hours was adjusted on . His blood sugars are 116, 173, and in the lab this morning 195. Hydrocortisone was decreased to 25 mg iv every 12 hours. Plan: Suggest continue the present insulin regimen. Continue hydrocortisone 25 mg twice a day. His blood sugars aren't satisfactory control Subjective Subjective: Cannot answer questions because intubated and sedated Objective Last 24 Hrs of Vital Signs/I&O Vital Signs Date Time Temp Pulse Resp B/P B/P Pulse O2 O2 Flow FiO2 Mean Ox Delivery Rate 08/06 0834 40 08/06 0649 40 08/06 0400 95 Ventilator 40% 08/06 0355 40 08/06 0049 40 08/06 0000 98.1 69 17 114/63 98 Ventilator 40% 08/06 0000 98 Ventilator 40% 08/05 2210 40 08/05 2134 73 114/60 08/05 2005 40 08/05 2000 97 Ventilator 40% 08/05 1656 40 08/05 1600 97.8 74 20 100/70 90 Ventilator 40% 08/05 1600 93 Ventilator 40% 08/05 1419 40 08/05 1159 95 Ventilator 40% 08/05 1122 40 08/05 0933 69 114/58 Intake & Output 08/06 1600 08/06 0800 12/ 0000 Intake Total 809 858 Output Total 850 1480 Balance -41 -622 Intake, IV 188 196 Intake, Tube 541 532 Feeding Intake, Tube 80 130 Irrigant Number 1 1 Bowel Movements Output, 400 550 Drainage Output, 200 130 Gastric Drainage Output, Urine 250 800 Vital Signs Date Time Temp Pulse Resp B/P B/P Pulse O2 O2 Flow FiO2 Mean Ox Delivery Rate 08/06 0834 40 08/06 0649 40 08/06 0400 95 Ventilator 40% 08/06 0355 40 08/06 0049 40 08/06 0000 98.1 69 17 114/63 98 Ventilator 40% 08/06 0000 98 Ventilator 40% 08/05 2210 40 08/05 2134 73 114/60 08/05 2005 40 08/05 2000 97 Ventilator 40% 08/05 1656 40 08/05 1600 97.8 74 20 100/70 90 Ventilator 40% 08/05 1600 93 Ventilator 40% 08/05 1419 40 08/05 1159 95 Ventilator 40% 08/05 1122 40 08/05 0933 69 114/58 Intake & Output 08/06 1600 08/06 0800 08/06 0000 Intake Total 809 858 Output Total 850 1480 Balance -41 -622 Intake, IV 188 196 Intake, Tube 541 532 Feeding Intake, Tube 80 130 Irrigant Number 1 1 Bowel Movements Output, 400 550 Drainage Output, 200 130 Gastric Drainage Output, Urine 250 800 Physical Exam General Appearance: sedated, intubated Neck: normal inspection Respiratory: normal breath sounds Cardiovascular: regular rate/rhythm Extremities: swelling Current Medications: Current Medications Sig/Buck Start time Last Medication Dose Route Stop Time Status Admin Acetaminophen 1,000 MG Q6P PRN 07/16 0530 AC 07/20 N/A 1 UNIT IV 0659 Albuterol Sulfate 3 ML EVERY 4 HRS/AWAKE 07/27 0800 AC 08/06 INH 0801 Budesonide/ 2 PUF BID 07/26 1056 AC 08/06 Formoterol Fumarate INH 0801 Carvedilol 3.125 MG BID 07/28 1000 AC 08/05 PO 2134 Fentanyl Citrate 25 MCG Q4P PRN 08/05 2130 AC 08/05 IV 2135 Fentanyl Citrate 25 MCG Q4P PRN 08/05 1215 DC IV Fentanyl Citrate 1,000 MCG Q13H 08/04 2200 DC 08/05 Dextrose/Water 250 ML IV 0122 Furosemide 40 MG ONCE ONE 08/05 1215 DC 08/05 IV 08/05 1216 1220 Heparin Sodium 5,000 UNIT Q8 08/05 1400 AC 08/06 (Porcine) SC 0612 Hydrocortisone 25 MG Q12 08/04 1000 AC 08/05 Sodium Succinate IV 2127 Insulin Aspart 0 Q4 07/25 1000 AC 08/06 SC 0613 Insulin Detemir 20 UNITS BID 07/30 1000 AC 08/05 MO 2144 Nystatin 5 ML 4 TIMES/DAY 07/30 1400 AC 08/05 PO 2135 Octreotide Acetate 500 MCG Q20H 07/15 1400 AC 08/06 Dextrose/Water 500 ML IV 06 Pantoprazole Sodium 40 MG BID 07/10 1016 AC 08/05 IV 2135 Potassium Chloride 20 MEQ ONCE ONE 08/05 1300 DC 08/05 IV 08/05 1301 1329 Potassium Chloride 10 MEQ Q1H 08/05 1215 DC IV 08/05 1316 Findings Pertinent Lab/Les Results: Laboratory Tests 08/06/17 0415: Anion Gap 11, Estimated GFR > 60, Glucose 195 H, Calcium 8.0 L, Phosphorus 4.0 , Magnesium 1.6, Total Bilirubin 0.8, AST 24, ALT 32, Albumin 2.2 L, CBC w Diff MAN DIFF ORDERED, RBC 3.38 L, MCV 88.7, MCH 29.1, RDW 20.0 H, MPV 8.3, Gran % 60.6, Lymphocytes % 30.5, Monocytes % 8.1, Eosinophils % 0.4, Basophils % 0.4, Absolute Granulocytes 7.1 H, Segmented Neutrophils 48, Band Neutrophils 37 H, Absolute Lymphocytes 3.6 H, Lymphocytes 12 L, Monocytes 2, Absolute Monocytes 1.0 H, Absolute Eosinophils 0, Absolute Basophils 0, Metamyelocytes 1, Platelet Estimate ADEQUATE, Polychromasia 1+, Hypochromic-Microcytic 1+, Poikilocytosis 1 +, Anisocytosis 1+, PUBS MCHC 32.8 L 08/05/17 1220: pH 7.52 H, pCO2 38, pO2 68 L, HCO3 30 H, ABG O2 Sat (Measured) 93.0 L, P-50 (Temp Corrected) N, Carboxyhemoglobin 0.1 L, O2 Concentration % 40%, Respiration Rate 23, O2 Delivery Method VENT, Vent Mode CPAP/PSV TRIAL, Expiratory Pressure 5, Tidal Volume 669, Pressure Support 6, Phlebotomy Draw Site LEFT RADIAL 08/05/17 1000: Sodium Cancelled, Potassium Cancelled, Chloride Cancelled, Carbon Dioxide Cancelled, Anion Gap Cancelled, BUN Cancelled, Creatinine Cancelled, Glucose Cancelled, Calcium Cancelled, Phosphorus Cancelled, Magnesium Cancelled, Total Bilirubin Cancelled, AST Cancelled, ALT Cancelled, Albumin Cancelled
[2017-08-06 16:00] VITALS: BP 120/68
--- NOTE | 2017-08-06 16:31 | CT SCAN REPORT ---
EXAMINATION: CT ABDOMEN AND PELVIS WITH CONTRAST CLINICAL INFORMATION: Bandemia. Increased WBC. Purulent discharge. COMPARISON: CT abdomen pelvis 07/26/2017. TECHNIQUE: Multidetector volumetric imaging was performed of the abdomen and pelvis following IV administration of 95 mL of Optiray 320 intravenous contrast. Sagittal and coronal reformatted images were obtained on the technologist's workstation. DLP: 1527 mGy-cm FINDINGS: LUNG BASES: [id number] bilateral pleural effusions and adjacent dependent atelectasis/consolidation. Diffuse coronary artery calcification. Cardiac leads in the right heart. Enteric tube courses below the diaphragm and terminates in the proximal duodenum. LIVER, GALLBLADDER, AND BILIARY TREE: The liver is normal in size, shape, and attenuation. No focal hepatic lesion or biliary ductal dilatation is present. The gallbladder is nondistended, with equivocal/borderline mural thickening (which may be reactive). No gallstones. PANCREAS: Unremarkable. SPLEEN: Unremarkable. ADRENAL GLANDS: Unremarkable. KIDNEYS AND URETERS: Bilateral nephrograms are symmetric without hydronephrosis. Redemonstration of bilateral renal calculi and unchanged bilateral hypodense renal lesions. BLADDER: Decompressed with Duvall catheter in place. Small volume of gas within the antidependent bladder lumen. GASTROINTESTINAL TRACT: Bowel gas pattern is nonobstructive. There is no evidence of new bowel inflammation. PERITONEAL CAVITY: There is a right abdominal surgical drain. Within the right peritoneal cavity, there is mildly increased pneumoperitoneum and mildly worsened stranding/fluid. There is suggestion of loculated fluid along the right paracolic gutter which measures approximately 10.5 x 2.7 cm on axial image 49/103, increased from prior exam. Additionally, along the left anterior peritoneal cavity, there is loculated fluid measuring 8.8 x 2.8 cm transaxially. There is also fluid tracking along the peripheral left paracolic gutter. ABDOMINAL WALL: Postsurgical changes of the ventral mid abdomen with skin dagoberto and subcutaneous foci of gas. There may be mild wound dehiscence. Please correlate clinically. There is subcutaneous stranding and foci of gas along the right abdominal drain. LYMPH NODES: No new bulky adenopathy. Subcentimeter intra-abdominal lymph nodes are nonspecific. VASCULAR: Diffuse atherosclerotic disease including coronary artery calcification. PELVIC VISCERA: Beam-hardening artifact limits local evaluation. No significant fluid collection or suspicious mass lesion. There is mild prostatomegaly. OSSEOUS STRUCTURES: Beam-hardening artifact from right hip hemiarthroplasty. Multilevel degenerative changes of the spine. Sternotomy wires without dehiscence. IMPRESSION: 1. Right abdominal surgical drain is redemonstrated. There has been mild interval increase in right abdominal pneumoperitoneum and stranding/free fluid (overall small volume of stranding and free fluid) compared to prior CT scan 07/26/2017. 2. Somewhat loculated fluid collections along the right paracolic gutter and left abdomen as described above. The collection along the right paracolic gutter has mildly increased compared to prior exam. 3. At least small bilateral pleural effusions with adjacent dependent lower lobe atelectasis/consolidation. 4. Multiple additional findings as described above.
[2017-08-07] VITALS: BP 125/63
[2017-08-07 05:21] LABS: ABSOLUTE BASOPHIL COUNT 0 /CUMM (0.0-0.2); ABSOLUTE EOSINOPHIL COUNT 0.1 /CUMM (0.0-0.7); ABSOLUTE GRANULOCYTE CT 6.3 /CUMM (1.4-6.5); ABSOLUTE LYMPH COUNT 2.8 /CUMM (1.2-3.4); ABSOLUTE MONOCYTE COUNT 0.8 /CUMM (0.10-0.60); BASOPHIL % 0.2 % (0.0-2.0); EOSINOPHIL % 0.5 % (0-5); GRANULOCYTE % 63.4 % (42.2-75.2); MEAN CORPUSCULAR HGB 28.8 PG (27.0-31.0); MEAN CORPUSCULAR HGB CONC 32.5 G/DL (33.0-37.0); MEAN CORPUSCULAR VOLUME 88.5 FL (80.0-94.0); MEAN PLATELET VOLUME 8.2 FL (7.4-10.4); PLATELET COUNT 177 /CUMM (130-400); RBC DISTRIBUTION WIDTH 20.6 % (11.5-14.5); RED BLOOD CELL CT 3.27 /CUMM (4.70-6.10)
--- NOTE | 2017-08-07 06:50 | RADIOLOGY REPORT ---
EXAMINATION: XR PORTABLE CHEST CLINICAL INFORMATION: Acute hypoxia. Respiratory failure. Intubation. COMPARISON: Chest x-ray August 06, 2017 TECHNIQUE: Portable frontal view of the chest was obtained. 6:28 AM FINDINGS: Endotracheal tube approximately 5 cm above kika. Nasogastric tube in stomach. Pacemaker lead in right atrium and right ventricle. Hazy opacity at the left lung base infiltrate or atelectasis and probable effusion. The density the right lung base seen on the prior chest x-rays is improving with improved aeration at right lung base. No pulmonary vascular congestion. IMPRESSION: 1. Endotracheal tube approximately 5 cm above kika. 2. Nasogastric tube in stomach. 3. Persistent dense left lung base. Improving aeration at right lung base.
[2017-08-07 08:00] VITALS: BP 110/60
--- NOTE | 2017-08-07 09:23 | PN- Resident CRCU ---
Abdulkadir RODRÍGUEZ,[facility] 08/07/17 0921: Subjective HPI/CRCU Issues: Patient was seen and examined, intubated, open eyes to verbal stimulus, does not follow commands. 24 Hour Events: Temperature 98, MAXIMUM TEMPERATURE 98.3 Heart rate lowest 68, highest 88 paced BP lowest 95/48, highest 146/70 AC/VC 500/10/40/5 99% Intake 2762/output 2400 Octreotide running at 25 mg/h Objective Vital Signs & I&O Last 8 Hrs of Vitals and I&O: 111 Exam General Appearance: intubated Head: atraumatic, normal appearance Ears, Nose, Throat: normal pharynx Neck: normal inspection, supple Respiratory: lungs clear Cardiovascular: regular rate/rhythm Gastrointestinal: destinded vertical surgical wound with inferior open wound draining pus Generlized tenderness Extremities: normal inspection, no edema Cranial Nerves: PERRL Weaning Parameters NIF: 32 Minute Volume: 9.68 Resp rate: 18 Vt: 538 Heart Rate: 75 Weaning Schedule Start Time: 2030 Minute Volume: 9.68 Resp Rate: 18 Vt: 538 Heart Rate: 75 End Time: 2200 Minute Volume: 11.0 Resp Rate: 20 Vt: 554 Heart Rate: 69 Current Medications: Current Medications Sig/Buck Start time Last Medication Dose Route Stop Time Status Admin Acetaminophen 1,000 MG Q6P PRN 07/16 0530 AC 07/20 N/A 1 UNIT IV 0659 Albuterol Sulfate 3 ML EVERY 4 HRS/AWAKE 07/27 0800 AC 08/08 INH 1152 Alteplase, 2 MG ONE ONE 08/07 2030 DC 08/07 Recombinant IV 08/07 Budesonide/ 2 PUF BID 07/26 1056 AC 08/08 Formoterol Fumarate INH 0830 Carvedilol 3.125 MG BID 07/28 1000 AC 08/08 PO 1005 Fentanyl Citrate 25 MCG Q4P PRN 08/05 2130 AC 08/07 IV 0406 Furosemide 40 MG ONCE ONE 08/08 1500 DC 08/08 IV 08/08 1501 1507 Heparin Sodium 5,000 UNIT Q8 08/05 1400 AC 08/08 (Porcine) SC 1409 Hydrocortisone 25 MG Q12 08/04 1000 AC 08/08 Sodium Succinate IV 0937 Insulin Aspart 0 Q4 07/25 1000 AC 08/08 SC 1409 Insulin Detemir 20 UNITS BID 07/30 1000 AC 08/08 SC 1000 Lidocaine 1 ML .STK-MED ONE 08/08 1635 DC ID 08/08 1636 Meropenem 1 GM IQ8 08/08 1600 AC IV Nystatin 5 ML 4 TIMES/DAY 07/30 1400 DC 08/07 PO 1609 Octreotide Acetate 500 MCG Q20H 07/15 1400 AC 08/08 Dextrose/Water 500 ML IV 0004 Pantoprazole Sodium 40 MG DAILY 08/08 1457 DC IV Pantoprazole Sodium 40 MG BID 07/10 1016 AC 08/08 IV 0937 Potassium Chloride 40 MEQ ONCE ONE 08/08 1500 DC 08/08 PO 08/08 1501 1507 Potassium Chloride 20 MEQ ONCE ONE 08/08 0600 DC 08/08 PO 08/08 0601 0604 Vancomycin HCl 1,250 MG Q12H 08/08 1600 AC Dextrose/Water 250 ML IV Impression/Plan Impression/Problem List Impression: 76 year old gentleman PAF on Tikosyn, not on AC, 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 extubated, continues to be on tube feeds. #Endotracheal intubation - ABG 7.51/33/84/26 - Despite the fact respiratory rate is 10, patient used to override the ventilator. We'll decrease FiO2 to 35 from 44% -Chest x-ray and ABG daily -Patient has successful extubation trials today #Septic shock - 2/2 peritonitis from perforated duodenal ulcer - Off Levophid - Continue Daptomycin and Meropenem. Continue until 07/30 and continue off Abx - Continue Hydrocortisone 50 mg Q8 #V. tach - F/u cardio recs - Continue Carvedilol 3.125 twice a day with holding parameters #Hx of PAF on Tikosyn - Curently in NSR, and rate controlled - Continue to hold tikosyn # Perforated duodenal ulcer s/p repair -CT abdomen and pelvis with IV contrast was obtained yesterday for leukocytosis that revealed loculated fluid collections along the right paracolic gutter and left abdomen -Surgical evaluation was requested by calling PA twice and placing an official consultation on answering services, waiting for evaluation -Recommendation for IR procedure to drain the loculated fluid if patient is not a surgical candidate -ID consultation was obtained, recommendation to follow off antibiotics - Status post expiratory laparotomy and suture repair of duodenal ulcer with Fabrizio patch on 07/09 and 07/16--- no recommendation for further surgical intervention at the moment - Maintain octreotide drip for continuous drainage from WILLEM--decision will made when patient is extubated regarding octreotide drip - IV Protonix 40mg BID - Status post daptomycin and meropenem, ID on board, body fluid culture 2 from the OR positive for vancomycin-resistant enterococcus -Respiratory culture from 07/18 positive for vancomycin-resistant enterococcus #USMAN - Resolved - Continue to montior UOP #Uncontrolled DM, secondary to Sepsis, pressors and octreotide - Continue Levemir 15 units twice a day - Novolog SS every 4 hours - Target Blood sugar 140 -180 - Continue following endocrine recommendation - DVT prophylaxis ALPS - Diet Continue on J tube feeding, rate 75 ml/h - Code Status Full Code Consultation ID, surgery, cardiology, nephrology, endocrinology IV access PICC line right arm Problem List: 1. Duodenal ulcer with perforation Pain Ratin Tomorrow's Labs & Rationales: ICU bundle CBC ABG CXR Plan DVT/Prophylaxis: mechanical, pharmacological Aidee RODRÍGUEZ,Katalina Bañuelos 08/07/17 1257: Attending MD Review Statement Attending Sign Off Attending Cosign Statement: I have: examined this patient, reviewed [facility] EMR data, personally reviewd images, discussd w/resident/PA/TRACTOR TRAILER OPERATOR, discussed mgmt plan w/riya, agreed w/resident/ PA/TRACTOR TRAILER OPERATOR.
--- NOTE | 2017-08-07 09:40 | PN- Infect Dx ---
Subjective Subjective: Afebrile on steroids. He does not offer any complaints. Objective Last 24 Hrs of Vital Signs/I&O Vital Signs Date Time Temp Pulse Resp B/P B/P Pulse O2 O2 Flow FiO2 Mean Ox Delivery Rate 08/07 0850 40 08/07 0636 40 08/07 0400 95 Ventilator 40% 08/07 0311 40 08/07 0056 40 08/07 0000 98.5 68 24 125/63 97 Ventilator 40% 08/07 0000 97 Ventilator 40% 08/06 2233 40 08/06 2142 69 114/60 08/06 2000 96 Ventilator 40% 08/06 1915 40 08/06 1615 40 08/06 1600 96 Ventilator 40% 08/06 1600 98.0 69 18 120/68 94 Ventilator 40% 08/06 1455 40 08/06 1200 96 Ventilator 40% 08/06 1124 40 08/06 1027 73 119/67 Intake & Output 08/07 1600 08/07 0800 12/ 0000 Intake Total 840 973 Output Total 700 630 Balance 140 343 Intake, IV 170 284 Intake, Tube 565 559 Feeding Intake, Tube 105 130 Irrigant Number 0 1 Bowel Movements Output, 350 250 Drainage Output, 50 30 Gastric Drainage Output, Urine 300 350 Physical Exam Other Physical Findings: He is awake and alert on the ventilator in no acute distress Lungs are clear Heart regular rhythm with no murmur Abdomen is distended, nontender with positive bowel sounds; incision with purulent drainage from the inferior aspect; WILLEM drains remain in place with significant output Extremities no cyanosis, clubbing or edema; PICC in the right upper extremity with no inflammation at the site Duvall catheter remains in place Results Last 24 Hours of Lab Results: Laboratory Tests 08/07 08/07 0610 0440 Blood Gas pH (7.35 - 7.45 PH) 7.51 H pCO2 (35 - 45 TORR) 33 L pO2 (80 - 100 TORR) 84 HCO3 (21 - 28 MEQ/L) 26 ABG O2 Sat (Measured) (>96.0 %) 96.0 P-50 (Temp Corrected) N Carboxyhemoglobin (1.5 - 5.0 %) 0.4 L O2 Concentration % .40 Respiration Rate (BPM) 10 O2 Delivery Method VENT Vent Mode A/C Expiratory Pressure (CMH2O/P) 5 Tidal Volume (CC) 500 Chemistry Sodium (137 - 145 mmol/L) 137 Potassium (3.5 - 5.1 mmol/L) 3.5 Chloride (98 - 107 mmol/L) 98 Carbon Dioxide (22 - 30 mmol/L) 28 Anion Gap (5 - 16) 10 BUN (9 - 20 mg/dL) 25 H Creatinine (0.7 - 1.2 mg/dL) 0.8 Estimated GFR (>60 ml/min) > 60 Glucose (65 - 99 mg/dL) 146 H Calcium (8.4 - 10.2 mg/dL) 8.0 L Phosphorus (2.5 - 4.5 mg/dL) 3.8 Magnesium (1.6 - 2.3 mg/dL) 1.7 Total Bilirubin (0.2 - 1.3 mg/dL) 0.6 AST (17 - 59 U/L) 23 ALT (21 - 72 U/L) 33 Albumin (3.5 - 5.0 g/dL) 2.2 L Hematology CBC w Diff MAN DIFF ORDERED WBC (4.8 - 10.8 /CUMM) 10.0 RBC (4.70 - 6.10 /CUMM) 3.27 L Hgb (14.0 - 18.0 G/DL) 9.4 L Hct (42 - 52 %) 29.0 L MCV (80.0 - 94.0 FL) 88.5 MCH (27.0 - 31.0 PG) 28.8 RDW (11.5 - 14.5 %) 20.6 H Plt Count (130 - 400 /CUMM) 177 MPV (7.4 - 10.4 FL) 8.2 Gran % (42.2 - 75.2 %) 63.4 Lymphocytes % (20.5 - 51.1 %) 28.3 Monocytes % (1.7 - 9.3 %) 7.6 Eosinophils % (0 - 5 %) 0.5 Basophils % (0.0 - 2.0 %) 0.2 Absolute Granulocytes (1.4 - 6.5 /CUMM) 6.3 Segmented Neutrophils (42.2 - 75.2 %) 62 Band Neutrophils (0.0 - 5.0 %) 12 H Absolute Lymphocytes (1.2 - 3.4 /CUMM) 2.8 Lymphocytes (20.5 - 51.1 %) 18 L Monocytes (1.7 - 9.3 %) 3 Absolute Monocytes (0.10 - 0.60 /CUMM) 0.8 H Eosinophils (0 - 5.0 %) 3 Absolute Eosinophils (0.0 - 0.7 /CUMM) 0.1 Basophils (0.0 - 2.0 %) 1 Absolute Basophils (0.0 - 0.2 /CUMM) 0 Metamyelocytes (0.0 - 1.0 %) 1 Nucleated RBCs (0.0 - 0.0 /100WBC) 1 H Platelet Estimate (ADEQUATE) ADEQUATE Hypochromic-Microcytic 1+ Poikilocytosis 1+ Anisocytosis 1+ Stomatocytes 1+ PUBS MCHC (33.0 - 37.0 G/DL) 32.5 L Miscellaneous Phlebotomy Draw Site LEFT RADIAL Last 24 Hours of Les Results: Blood cultures August 06 negative Urine culture August 06 negative Sputum culture August 06 mixed jose david Recent Imaging Studies: CT of the abdomen and pelvis August 06 reveals mildly increased pneumoperitoneum, with loculated fluid along the right paracolic gutter, measuring 10.5 x 2.7 cm, and along the left anterior peritoneal cavity, measuring 8.8 x 2.8 cm; small bilateral pleural effusions with bibasilar densities Assessment/Plan Impression: Remains stable with temperatures and white blood cell count remaining normal, but with significant bandemia, particularly on yesterday's CBC, most likely secondary to a persistent intra-abdominal infection, given the ongoing enteric leak, with the CT scan revealing pneumoperitoneum and loculated effusions, which will require drainage. He continues to have significant output from both WILLEM drains and persistent purulent drainage from the incision. Though he is clearly a high risk for surgery suspect this may be necessary to resolve this process. In the interim IR drainage can be considered, though suspect this may just be temporizing. He is currently off antibiotics and, though am concerned about the bandemia, do not feel that resumption of antibiotics alone will resolve this process. He is now 29 days status post surgery for the perforated duodenal ulcer and 22 days status post an unsuccessful duodenal repair for the persistent enteric leak. Suggestion: 1. Surgical follow-up regarding his recent CT findings 2. Would pursue IR drainage of the loculated collections if no plans for exploratory laparotomy 3. Continue to follow off antibiotics pending above
--- NOTE | 2017-08-07 09:54 | PN- Diabetes ---
Assessment/Plan Assessment: 76-year-old male with Hx of CAD with low ejection fraction, atrial fibrillation, AICD, previous infection of hip with prolonged antibiotic, history of peptic ulcer disease, diabetes and renal stone, was admitted for perforation of duodenum now with septic shock in ICU. He was on 3 pressors, TPN, octreotide drip and bicarb drip. His BP remained low and stress dose of steroid was initiated despite his am cortisol was 24.8. Patient is still on octreotide drip. Patient was re-intubated on 07/26/2017. He has been off on TPN. Currently he is on tube feeding with Vital 75 mL per hour. Levemir was increased to 20 units twice a day and Novolog coverage every 4 hours was adjusted on . The patient's most recent blood sugars are 153, 142, 129, and 151. Hydrocortisone was decreased to 25 mg iv every 12 hours. Plan: The patient's blood sugars are in a satisfactory range. Continue the present tube feedings and present insulin regimen. Continue hydrocortisone 25 mg IV every 12 hours. Subjective Subjective: Vital Signs Date Time Temp Pulse Resp B/P B/P Pulse O2 O2 Flow FiO2 Mean Ox Delivery Rate 08/07 0850 40 08/07 0636 40 08/07 0400 95 Ventilator 40% 08/07 0311 40 08/07 0056 40 08/07 0000 98.5 68 24 125/63 97 Ventilator 40% 08/07 0000 97 Ventilator 40% 08/06 2233 40 08/06 2142 69 114/60 / 2000 96 Ventilator 40% 08/06 1915 40 08/06 1615 40 08/06 1600 96 Ventilator 40% 08/06 1600 98.0 69 18 120/68 94 Ventilator 40% 08/06 1455 40 12 1200 96 Ventilator 40% 08/06 1124 40 08/06 1027 73 119/67 Intake & Output 08/07 1600 08/07 0800 12/ 0000 Intake Total 840 973 Output Total 700 630 Balance 140 343 Intake, IV 170 284 Intake, Tube 565 559 Feeding Intake, Tube 105 130 Irrigant Number 0 1 Bowel Movements Output, 350 250 Drainage Output, 50 30 Gastric Drainage Output, Urine 300 350 Randy answer questions because intubated and sedated Objective Last 24 Hrs of Vital Signs/I&O Vital Signs Date Time Temp Pulse Resp B/P B/P Pulse O2 O2 Flow FiO2 Mean Ox Delivery Rate 08/07 0850 40 08/07 0636 40 08/07 0400 95 Ventilator 40% 08/07 0311 40 12 0056 40 12/ 0000 98.5 68 24 125/63 97 Ventilator 40% 12/ 0000 97 Ventilator 40% 08/06 2233 40 08/06 2142 69 114/60 08/06 2000 96 Ventilator 40% 08/06 1915 40 08/06 1615 40 08/06 1600 96 Ventilator 40% 08/06 1600 98.0 69 18 120/68 94 Ventilator 40% 08/06 1455 40 08/06 1200 96 Ventilator 40% 08/06 1124 40 08/06 1027 73 119/67 Intake & Output 08/07 1600 08/07 0800 08/07 0000 Intake Total 840 973 Output Total 700 630 Balance 140 343 Intake, IV 170 284 Intake, Tube 565 559 Feeding Intake, Tube 105 130 Irrigant Number 0 1 Bowel Movements Output, 350 250 Drainage Output, 50 30 Gastric Drainage Output, Urine 300 350 Vital Signs Date Time Temp Pulse Resp B/P B/P Pulse O2 O2 Flow FiO2 Mean Ox Delivery Rate 08/07 0850 40 08/07 0636 40 08/07 0400 95 Ventilator 40% 08/07 0311 40 08/07 0056 40 / 0000 98.5 68 24 125/63 97 Ventilator 40% 08/07 0000 97 Ventilator 40% 08/06 2233 40 08/06 2142 69 114/60 08/06 2000 96 Ventilator 40% 08/06 1915 40 08/06 1615 40 08/06 1600 96 Ventilator 40% 08/06 1600 98.0 69 18 120/68 94 Ventilator 40% 08/06 1455 40 08/06 1200 96 Ventilator 40% 08/06 1124 40 08/06 1027 73 119/67 Intake & Output 08/07 1600 08/07 0800 12 0000 Intake Total 840 973 Output Total 700 630 Balance 140 343 Intake, IV 170 284 Intake, Tube 565 559 Feeding Intake, Tube 105 130 Irrigant Number 0 1 Bowel Movements Output, 350 250 Drainage Output, 50 30 Gastric Drainage Output, Urine 300 350 Physical Exam General Appearance: sedated, intubated Head: normal appearance Respiratory: normal breath sounds Cardiovascular: regular rate/rhythm Extremities: normal inspection Current Medications: Current Medications Sig/Buck Start time Last Medication Dose Route Stop Time Status Admin Acetaminophen 1,000 MG Q6P PRN 07/16 0530 AC 07/20 N/A 1 UNIT IV 0659 Albuterol Sulfate 3 ML EVERY 4 HRS/AWAKE 07/27 0800 AC 08/07 INH 0851 Budesonide/ 2 PUF BID 07/26 1056 AC 08/06 Formoterol Fumarate INH 2044 Carvedilol 3.125 MG BID 07/28 1000 AC 08/06 PO 2142 Fentanyl Citrate 100 MCG .STK-MED ONE 08/06 1017 DC IM 08/06 1018 Fentanyl Citrate 25 MCG Q4P PRN 08/05 2130 AC 08/07 IV 0406 Heparin Sodium 5,000 UNIT Q8 08/05 1400 AC 08/07 (Porcine) SC 0609 Hydrocortisone 25 MG Q12 08/04 1000 AC 08/06 Sodium Succinate IV 2142 Insulin Aspart 0 Q4 07/25 1000 AC 08/07 SC 0608 Insulin Detemir 20 UNITS BID 07/30 1000 AC 08/06 SC 2148 Magnesium Sulfate 1 GM Q2H 08/07 0945 UNVr Dextrose/Water 100 ML IV 08/07 1344 Nystatin 5 ML 4 TIMES/DAY 07/30 1400 AC 08/06 PO 2142 Octreotide Acetate 500 MCG Q20H 07/15 1400 AC 08/07 Dextrose/Water 500 ML IV 0407 Pantoprazole Sodium 40 MG BID 07/10 1016 AC 08/06 IV 2141 Potassium Chloride 10 MEQ Q1H 08/07 0945 UNVr IV 08/07 1046 Potassium Chloride 40 MEQ ONCE ONE 08/07 0945 UNVr PO 08/07 0946 Potassium Chloride 20 MEQ ONCE ONE 08/06 1630 DC 08/06 IV 08/06 1631 1843 Potassium Phosphate 15 mMol ONE ONE 08/07 0945 UNVr Dextrose/Water 250 ML IV 08/07 1349
[2017-08-07 16:00] VITALS: BP 138/78
--- NOTE | 2017-08-07 16:27 | PN- General Surgery ---
Surgical Brief Attending Note Brief Attending Note: Asked to review CT scan and assess. Patient remains afebrile (although on seroids), WBC normal, VSS. CT scan shows slightly larger collections (R paracolic gutter and left anterior abdomen). Clinically patient is stable and does not warrant an emergent surgical exploration. Continue ICU care, Dr Trimble to evaluate patient tomorrow.
[2017-08-08] VITALS: BP 120/58
[2017-08-08 05:05] LABS: ABSOLUTE BASOPHIL COUNT 0 /CUMM (0.0-0.2); ABSOLUTE EOSINOPHIL COUNT 0 /CUMM (0.0-0.7); ABSOLUTE GRANULOCYTE CT 7.1 /CUMM (1.4-6.5); ABSOLUTE LYMPH COUNT 2.9 /CUMM (1.2-3.4); ABSOLUTE MONOCYTE COUNT 0.9 /CUMM (0.10-0.60); BASOPHIL % 0.2 % (0.0-2.0); EOSINOPHIL % 0.4 % (0-5); GRANULOCYTE % 64.1 % (42.2-75.2); HEMATOCRIT 27.5 % (42-52); MEAN CORPUSCULAR HGB 29.1 PG (27.0-31.0); MEAN CORPUSCULAR HGB CONC 32.6 G/DL (33.0-37.0); MEAN CORPUSCULAR VOLUME 89.1 FL (80.0-94.0); MEAN PLATELET VOLUME 8.4 FL (7.4-10.4); PLATELET COUNT 186 /CUMM (130-400); RBC DISTRIBUTION WIDTH 19.7 % (11.5-14.5); RED BLOOD CELL CT 3.08 /CUMM (4.70-6.10)
--- NOTE | 2017-08-08 06:35 | RADIOLOGY REPORT ---
EXAMINATION: XR PORTABLE CHEST CLINICAL INFORMATION: Mechanical ventilation. COMPARISON: Chest x-ray August 07, 2017 TECHNIQUE: Portable frontal view of the chest was obtained. 5:31 AM FINDINGS: Status post median sternotomy. Endotracheal tube in place with catheter tip about 5 cm above the kika. Nasogastric tube passes down below diaphragm into stomach. Pacemaker lead in right atrium and right ventricle. Heart size is enlarged. No pulmonary vascular congestion. There is a dense retrocardiac area with silhouetting left diaphragm due to left pleural effusion and possible left basilar infiltrate or atelectasis. This is similar to the prior chest x-ray of August 07, 2017. Hazy opacity right lung base due to a smaller right pleural effusion and infiltrate/atelectasis is persistent unchanged since CT of August 06, 2017 abdomen pelvis. IMPRESSION: 1. Endotracheal tube catheter tip 5 cm above kika. 2. Nasogastric tube passing into stomach. 3. Bibasilar opacities, greater on left than right, due to bilateral effusions and basilar infiltrate/atelectasis.
[2017-08-08 08:00] VITALS: BP 122/64
--- NOTE | 2017-08-08 08:20 | PN- Diabetes ---
Assessment/Plan Assessment: 76-year-old male with Hx of CAD with low ejection fraction, atrial fibrillation, AICD, previous infection of hip with prolonged antibiotic, history of peptic ulcer disease, diabetes and renal stone, was admitted for perforation of duodenum now with septic shock in ICU. He was on 3 pressors, TPN, octreotide drip and bicarb drip. His BP remained low and stress dose of steroid was initiated despite his am cortisol was 24.8. Patient is still on octreotide drip. Patient was re-intubated on 07/26/2017. He has been off on TPN. Currently he is on tube feeding with Vital 75 mL per hour. Levemir was increased to 20 units twice a day and Novolog coverage every 4 hours was adjusted on . The patient's most recent blood sugars are 214, 193, 162 and 168. Hydrocortisone was decreased to 25 mg iv every 12 hours. Plan: continue the current insulin regimen; continue the current Hydrocortisone 25 mg iv every 12 hours; monitor FSGs, vital signs and electrolytes. will follow. Subjective Subjective: He remains intubated. Objective Last 24 Hrs of Vital Signs/I&O Vital Signs Date Time Temp Pulse Resp B/P B/P Pulse O2 O2 Flow FiO2 Mean Ox Delivery Rate 08/08 0600 35 08/08 0400 95 Ventilator 35% 08/08 0324 35 08/08 0042 35 08/08 0000 94 Ventilator 35% 08/08 0000 99.1 68 20 120/58 94 Ventilator 35% 08/07 2220 35 08/07 2120 73 129/57 08/07 2000 97 Ventilator 35% 08/07 1900 35 08/07 1635 35 08/07 1600 98.6 90 18 138/78 97 Ventilator 35% 08/07 1600 94 Ventilator 35% 08/07 1432 35 08/07 1200 96 Ventilator 40% 08/07 1014 72 110/52 08/07 0850 40 Intake & Output 08/08 1600 08/08 0800 12 0000 Intake Total 973 1339 Output Total 690 1010 Balance 283 329 Intake, IV 196 591 Intake, Oral 0 0 Intake, Tube 637 578 Feeding Intake, Tube 140 170 Irrigant Number 0 0 Bowel Movements Output, 375 375 Drainage Output, 50 Gastric Drainage Output, Urine 265 635 Findings Pertinent Lab/Les Results: Laboratory Tests 08/08 08/08 0535 0406 Blood Gas pH (7.35 - 7.45 PH) 7.52 H pCO2 (35 - 45 TORR) 32 L pO2 (80 - 100 TORR) 83 HCO3 (21 - 28 MEQ/L) 26 ABG O2 Sat (Measured) (>96.0 %) 96.0 P-50 (Temp Corrected) N Carboxyhemoglobin (1.5 - 5.0 %) 0.3 L O2 Concentration % .35 Respiration Rate (BPM) 10 O2 Delivery Method VENT Vent Mode A/C Expiratory Pressure (CMH2O/P) 5 Tidal Volume (CC) 500 Chemistry Sodium (137 - 145 mmol/L) 138 Potassium (3.5 - 5.1 mmol/L) 3.9 Chloride (98 - 107 mmol/L) 98 Carbon Dioxide (22 - 30 mmol/L) 28 Anion Gap (5 - 16) 11 BUN (9 - 20 mg/dL) 25 H Creatinine (0.7 - 1.2 mg/dL) 0.8 Estimated GFR (>60 ml/min) > 60 Glucose (65 - 99 mg/dL) 133 H Calcium (8.4 - 10.2 mg/dL) 7.9 L Phosphorus (2.5 - 4.5 mg/dL) 3.7 Magnesium (1.6 - 2.3 mg/dL) 2.0 Total Bilirubin (0.2 - 1.3 mg/dL) 0.5 AST (17 - 59 U/L) 30 ALT (21 - 72 U/L) 39 Albumin (3.5 - 5.0 g/dL) 2.2 L Hematology CBC w Diff MAN DIFF ORDERED WBC (4.8 - 10.8 /CUMM) 11.0 H RBC (4.70 - 6.10 /CUMM) 3.08 L Hgb (14.0 - 18.0 G/DL) 9.0 L Hct (42 - 52 %) 27.5 L MCV (80.0 - 94.0 FL) 89.1 MCH (27.0 - 31.0 PG) 29.1 RDW (11.5 - 14.5 %) 19.7 H Plt Count (130 - 400 /CUMM) 186 MPV (7.4 - 10.4 FL) 8.4 Gran % (42.2 - 75.2 %) 64.1 Lymphocytes % (20.5 - 51.1 %) 26.7 Monocytes % (1.7 - 9.3 %) 8.6 Eosinophils % (0 - 5 %) 0.4 Basophils % (0.0 - 2.0 %) 0.2 Absolute Granulocytes (1.4 - 6.5 /CUMM) 7.1 H Segmented Neutrophils (42.2 - 75.2 %) 66 Band Neutrophils (0.0 - 5.0 %) 11 H Absolute Lymphocytes (1.2 - 3.4 /CUMM) 2.9 Lymphocytes (20.5 - 51.1 %) 18 L Monocytes (1.7 - 9.3 %) 5 Absolute Monocytes (0.10 - 0.60 /CUMM) 0.9 H Absolute Eosinophils (0.0 - 0.7 /CUMM) 0 Absolute Basophils (0.0 - 0.2 /CUMM) 0 Platelet Estimate (ADEQUATE) ADEQUATE Polychromasia 1+ Anisocytosis 1+ Stomatocytes 1+ Elliptocytes FEW PUBS MCHC (33.0 - 37.0 G/DL) 32.6 L Miscellaneous Phlebotomy Draw Site LEFT RADIAL 08/07 1800 Chemistry Sodium Cancelled Potassium Cancelled Chloride Cancelled Carbon Dioxide Cancelled Anion Gap Cancelled BUN Cancelled Creatinine Cancelled Glucose Cancelled Calcium Cancelled Phosphorus Cancelled Magnesium Cancelled Total Bilirubin Cancelled AST Cancelled ALT Cancelled Albumin Cancelled
--- NOTE | 2017-08-08 08:48 | PN- Resident CRCU ---
Subjective HPI/CRCU Issues: Hypoxic respiratory failure. Perforated duodenal ulcer status post duodenal repair and enteric leak. HPI Heart failure with reduced ejection fraction status post AICD. Intubated. 24 Hour Events: Patient remains intubated. MAXIMUM TEMPERATURE of 100.6 overnight. Paced rhythm 60s to 70s. Stable BP. Objective Vital Signs & I&O Last 8 Hrs of Vitals and I&O: Intake & Output 08/08 1600 Intake Total 890 Output Total 850 Balance 40 Intake, IV 185 Intake, Tube 565 Feeding Intake, Tube 140 Irrigant Output, 275 Drainage Output, 75 Gastric Drainage Output, Urine 500 Patient 260 lb Weight Weight Bed scale Measurement Method Intake & Output 08/08 1600 12 0800 12 0000 Intake Total 848 390 9499 Output Total 654 150 0702 Balance 40 283 329 Intake, IV 185 196 591 Intake, Oral 0 0 Intake, Tube 565 637 578 Feeding Intake, Tube 140 140 170 Irrigant Number 0 0 Bowel Movements Output, 275 375 375 Drainage Output, 75 50 Gastric Drainage Output, Urine 500 265 635 Patient 260 lb Weight Weight Bed scale Measurement Method Exam General Appearance: no apparent distress, alert, intubated Head: atraumatic Ears, Nose, Throat: normal pharynx Neck: supple Respiratory: normal breath sounds, chest non-tender, lungs clear Cardiovascular: regular rate/rhythm Gastrointestinal: vertical surgical wound, Distended and mildly tender Extremities: no edema Weaning Parameters NIF: 32 Minute Volume: 9.68 Resp rate: 18 Vt: 538 Heart Rate: 75 Weaning Schedule Start Time: 1115 Minute Volume: 8.7 Resp Rate: 23 Vt: 345 Heart Rate: 61 End Time: 1315 Minute Volume: 7.6 Resp Rate: 21 Vt: 389 Heart Rate: 69 Current Medications: Current Medications Sig/Buck Start time Last Medication Dose Route Stop Time Status Admin Acetaminophen 1,000 MG Q6P PRN 07/16 0530 AC 07/20 N/A 1 UNIT IV 0659 Albuterol Sulfate 3 ML EVERY 4 HRS/AWAKE 07/27 0800 AC 08/08 INH 1152 Alteplase, 2 MG ONE ONE 08/07 2030 DC 08/07 Recombinant IV 08/07 Budesonide/ 2 PUF BID 07/26 1056 AC 08/08 Formoterol Fumarate INH 0830 Carvedilol 3.125 MG BID 07/28 1000 AC 08/08 PO 1005 Fentanyl Citrate 25 MCG Q4P PRN 08/05 2130 AC 08/07 IV 0406 Furosemide 40 MG ONCE ONE 08/08 1500 DC 12 IV 08/08 1501 1507 Heparin Sodium 5,000 UNIT Q8 08/05 1400 AC 08/08 (Porcine) SC 1409 Hydrocortisone 25 MG Q12 08/04 1000 AC 08/08 Sodium Succinate IV 0937 Insulin Aspart 0 Q4 07/25 1000 AC 08/08 SC 1409 Insulin Detemir 20 UNITS BID 07/30 1000 AC 08/08 SC 1000 Meropenem 1 GM IQ8 08/08 1600 UNVr IV Nystatin 5 ML 4 TIMES/DAY 07/30 1400 DC 08/07 PO 1609 Octreotide Acetate 500 MCG Q20H 07/15 1400 AC 08/08 Dextrose/Water 500 ML IV 0004 Pantoprazole Sodium 40 MG DAILY 08/08 1457 DC IV Pantoprazole Sodium 40 MG BID 07/10 1016 AC 08/08 IV 0937 Potassium Chloride 40 MEQ ONCE ONE 08/08 1500 DC 08/08 PO 08/08 1501 1507 Potassium Chloride 20 MEQ ONCE ONE 08/08 0600 DC 08/08 PO 08/08 0601 0604 Vancomycin HCl 1,250 MG Q12H 08/08 1600 AC Dextrose/Water 250 ML IV Impression/Plan Impression/Problem List Impression: 76 year old gentleman PAF on Tikosyn, not on AC, 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 extubated, continues to be on tube feeds. #Endotracheal intubation - ABG 7.52/32/83/26 - Despite the fact respiratory rate is 10, patient used to override the ventilator. FIo2 35% -Chest x-ray and ABG daily -Patient will have extubation trials today after the IR procedure #Septic shock - 2/2 peritonitis from perforated duodenal ulcer - Off Levophid - Started Vancomycin and Meropenem. - Continue Hydrocortisone 50 mg Q12 #V. tach - F/u cardio recs - Continue Carvedilol 3.125 twice a day with holding parameters #Hx of PAF on Tikosyn - Curently in NSR, and rate controlled - Continue to hold tikosyn # Perforated duodenal ulcer s/p repair -CT abdomen and pelvis with IV contrast was obtained for leukocytosis that revealed loculated fluid collections along the right paracolic gutter and left abdomen -Surgical evaluation was requested by calling PA twice and placing an official consultation on answering services, waiting for evaluation -Recommendation for IR procedure to drain the loculated fluid today -ID consultation was obtained, recommendation to follow off antibiotics - Status post expiratory laparotomy and suture repair of duodenal ulcer with Fabrizio patch on 07/09 and 07/16--- no recommendation for further surgical intervention at the moment - Maintain octreotide drip for continuous drainage from WILLEM--decision will made when patient is extubated regarding octreotide drip - IV Protonix 40mg BID - Status post daptomycin and meropenem, ID on board, body fluid culture 2 from the OR positive for vancomycin-resistant enterococcus -Respiratory culture from 07/18 positive for vancomycin-resistant enterococcus #USMAN - Resolved - Continue to montior UOP #Uncontrolled DM, secondary to Sepsis, pressors and octreotide - Continue Levemir 15 units twice a day - Novolog SS every 4 hours - Target Blood sugar 140 -180 - Continue following endocrine recommendation - DVT prophylaxis ALPS - Diet Continue on J tube feeding, rate 75 ml/h - Code Status Full Code Consultation ID, surgery, cardiology, nephrology, endocrinology IV access PICC line right arm Problem List: 1. Leukocytosis Pain Ratin Tomorrow's Labs & Rationales: CBC for leukocytosis ICU bundle for electrolytes Plan DVT/Prophylaxis: mechanical, pharmacological
--- NOTE | 2017-08-08 09:09 | PN- CRCU ---
Subjective HPI/Critical Care Issues: Continues to be intubated sedated Patient has had adequate trials in the recent past however his recent CT scan does show significant fluid collection and may need intervention. Surgery and ID is in all. He continues to be on hydrocortisone 25 mg every 12 hours Continues to be on octreotide drip and has been on narcotics before which has been recently discontinued. Is often a bicarbonate drip. He continues to be on tube feeding. He did have a bowel movement yesterday. He remains afebrile. MAXIMUM TEMPERATURE is 100.6 more than 24 hours ago. Urine output has been adequate. Significant data chest x-ray showed bibasilar opacities left greater than right with bilateral small effusions. CT abdomen reviewed which showed interval increase in the right abdominal pneumoperitoneum and stranding with free fluid loculated fluid collection, along the right paracolic gutter and left abdomen. Right paracolic gutter fluid has increased. The loculated fluid measures 10 x 2 cm in the left side was 8 x 2.8 cm Objective Current Medications: Current Medications Sig/Buck Start time Last Medication Dose Route Stop Time Status Admin Acetaminophen 1,000 MG Q6P PRN 07/16 0530 AC 07/20 N/A 1 UNIT IV 0659 Albuterol Sulfate 3 ML EVERY 4 HRS/AWAKE 07/27 0800 AC 08/08 INH 0825 Alteplase, 2 MG ONE ONE 08/07 2030 DC 08/07 Recombinant IV 08/07 2031 2026 Alteplase, 2 MG ONCE ONE 08/07 1115 DC 08/07 Recombinant IV 08/07 1116 1205 Alteplase, 2 MG PER PROTOCL 08/07 1100 CAN Recombinant IV 08/08 1101 Budesonide/ 2 PUF BID 07/26 1056 AC 08/08 Formoterol Fumarate INH 0830 Carvedilol 3.125 MG BID 07/28 1000 AC 08/07 PO 2120 Fentanyl Citrate 25 MCG Q4P PRN 08/05 2130 AC 08/07 IV 0406 Heparin Sodium 5,000 UNIT Q8 08/05 1400 AC 08/08 (Porcine) SC 0506 Hydrocortisone 25 MG Q12 08/04 1000 AC 08/07 Sodium Succinate IV 2118 Insulin Aspart 0 Q4 07/25 1000 AC 08/08 SC 0506 Insulin Detemir 20 UNITS BID 07/30 1000 AC 08/07 SC 2118 Magnesium Sulfate 1 GM Q2H 08/07 0945 DC 08/07 Dextrose/Water 100 ML IV 08/07 1344 1320 Nystatin 5 ML 4 TIMES/DAY 07/30 1400 DC 08/07 PO 1609 Octreotide Acetate 500 MCG Q20H 07/15 1400 AC 08/08 Dextrose/Water 500 ML IV 0004 Pantoprazole Sodium 40 MG BID 07/10 1016 AC 08/07 IV 2117 Potassium Chloride 20 MEQ ONCE ONE 08/08 0600 DC 08/08 PO 08/08 0601 0604 Potassium Chloride 10 MEQ Q1H 08/07 0945 DC 08/07 IV 08/07 1046 1033 Potassium Chloride 40 MEQ ONCE ONE 08/07 0945 DC 08/07 PO 08/07 0946 1020 Potassium Phosphate 15 mMol ONE ONE 08/07 0945 DC 08/07 Dextrose/Water 250 ML IV 08/07 1349 1500 Vital Signs & I&O Last 24 Hrs of Vitals and I&O: Vital Signs Date Time Temp Pulse Resp B/P B/P Pulse O2 O2 Flow FiO2 Mean Ox Delivery Rate 08/08 0843 35 08/08 08 97.8 69 24 122/64 97 Ventilator 35% 08/08 0800 97 Ventilator 35% 08/08 0600 35 08/08 0400 95 Ventilator 35% 08/08 0324 35 08/08 0042 35 08/08 0000 94 Ventilator 35% 08/08 0000 99.1 68 20 120/58 94 Ventilator 35% 08/07 2220 35 08/07 2120 73 129/57 08/07 2000 97 Ventilator 35% 08/07 1900 35 08/07 1635 35 08/07 1600 98.6 90 18 138/78 97 Ventilator 35% 08/07 1600 94 Ventilator 35% 08/07 1432 35 08/07 1200 96 Ventilator 40% 08/07 1014 72 110/52 Intake & Output 08/08 1600 08/08 0800 12 0000 Intake Total 973 1339 Output Total 690 1010 Balance 283 329 Intake, IV 196 591 Intake, Oral 0 0 Intake, Tube 637 578 Feeding Intake, Tube 140 170 Irrigant Number 0 0 Bowel Movements Output, 375 375 Drainage Output, 50 Gastric Drainage Output, Urine 265 635 Laboratory Tests 08/08 08/08 0535 0406 Blood Gas pH (7.35 - 7.45 PH) 7.52 H pCO2 (35 - 45 TORR) 32 L pO2 (80 - 100 TORR) 83 HCO3 (21 - 28 MEQ/L) 26 ABG O2 Sat (Measured) (>96.0 %) 96.0 P-50 (Temp Corrected) N Carboxyhemoglobin (1.5 - 5.0 %) 0.3 L O2 Concentration % .35 Respiration Rate (BPM) 10 O2 Delivery Method VENT Vent Mode A/C Expiratory Pressure (CMH2O/P) 5 Tidal Volume (CC) 500 Chemistry Sodium (137 - 145 mmol/L) 138 Potassium (3.5 - 5.1 mmol/L) 3.9 Chloride (98 - 107 mmol/L) 98 Carbon Dioxide (22 - 30 mmol/L) 28 Anion Gap (5 - 16) 11 BUN (9 - 20 mg/dL) 25 H Creatinine (0.7 - 1.2 mg/dL) 0.8 Estimated GFR (>60 ml/min) > 60 Glucose (65 - 99 mg/dL) 133 H Calcium (8.4 - 10.2 mg/dL) 7.9 L Phosphorus (2.5 - 4.5 mg/dL) 3.7 Magnesium (1.6 - 2.3 mg/dL) 2.0 Total Bilirubin (0.2 - 1.3 mg/dL) 0.5 AST (17 - 59 U/L) 30 ALT (21 - 72 U/L) 39 Albumin (3.5 - 5.0 g/dL) 2.2 L Hematology CBC w Diff MAN DIFF ORDERED WBC (4.8 - 10.8 /CUMM) 11.0 H RBC (4.70 - 6.10 /CUMM) 3.08 L Hgb (14.0 - 18.0 G/DL) 9.0 L Hct (42 - 52 %) 27.5 L MCV (80.0 - 94.0 FL) 89.1 MCH (27.0 - 31.0 PG) 29.1 RDW (11.5 - 14.5 %) 19.7 H Plt Count (130 - 400 /CUMM) 186 MPV (7.4 - 10.4 FL) 8.4 Gran % (42.2 - 75.2 %) 64.1 Lymphocytes % (20.5 - 51.1 %) 26.7 Monocytes % (1.7 - 9.3 %) 8.6 Eosinophils % (0 - 5 %) 0.4 Basophils % (0.0 - 2.0 %) 0.2 Absolute Granulocytes (1.4 - 6.5 /CUMM) 7.1 H Segmented Neutrophils (42.2 - 75.2 %) 66 Band Neutrophils (0.0 - 5.0 %) 11 H Absolute Lymphocytes (1.2 - 3.4 /CUMM) 2.9 Lymphocytes (20.5 - 51.1 %) 18 L Monocytes (1.7 - 9.3 %) 5 Absolute Monocytes (0.10 - 0.60 /CUMM) 0.9 H Absolute Eosinophils (0.0 - 0.7 /CUMM) 0 Absolute Basophils (0.0 - 0.2 /CUMM) 0 Platelet Estimate (ADEQUATE) ADEQUATE Polychromasia 1+ Anisocytosis 1+ Stomatocytes 1+ Elliptocytes FEW PUBS MCHC (33.0 - 37.0 G/DL) 32.6 L Miscellaneous Phlebotomy Draw Site LEFT RADIAL 08/07 08/07 1800 0610 Blood Gas pH (7.35 - 7.45 PH) 7.51 H pCO2 (35 - 45 TORR) 33 L pO2 (80 - 100 TORR) 84 HCO3 (21 - 28 MEQ/L) 26 ABG O2 Sat (Measured) (>96.0 %) 96.0 P-50 (Temp Corrected) N Carboxyhemoglobin (1.5 - 5.0 %) 0.4 L O2 Concentration % .40 Respiration Rate (BPM) 10 O2 Delivery Method VENT Vent Mode A/C Expiratory Pressure (CMH2O/P) 5 Tidal Volume (CC) 500 Chemistry Sodium Cancelled Potassium Cancelled Chloride Cancelled Carbon Dioxide Cancelled Anion Gap Cancelled BUN Cancelled Creatinine Cancelled Glucose Cancelled Calcium Cancelled Phosphorus Cancelled Magnesium Cancelled Total Bilirubin Cancelled AST Cancelled ALT Cancelled Albumin Cancelled Miscellaneous Phlebotomy Draw Site LEFT RADIAL 08/07 0440 Chemistry Sodium (137 - 145 mmol/L) 137 Potassium (3.5 - 5.1 mmol/L) 3.5 Chloride (98 - 107 mmol/L) 98 Carbon Dioxide (22 - 30 mmol/L) 28 Anion Gap (5 - 16) 10 BUN (9 - 20 mg/dL) 25 H Creatinine (0.7 - 1.2 mg/dL) 0.8 Estimated GFR (>60 ml/min) > 60 Glucose (65 - 99 mg/dL) 146 H Calcium (8.4 - 10.2 mg/dL) 8.0 L Phosphorus (2.5 - 4.5 mg/dL) 3.8 Magnesium (1.6 - 2.3 mg/dL) 1.7 Total Bilirubin (0.2 - 1.3 mg/dL) 0.6 AST (17 - 59 U/L) 23 ALT (21 - 72 U/L) 33 Albumin (3.5 - 5.0 g/dL) 2.2 L Hematology CBC w Diff MAN DIFF ORDERED WBC (4.8 - 10.8 /CUMM) 10.0 RBC (4.70 - 6.10 /CUMM) 3.27 L Hgb (14.0 - 18.0 G/DL) 9.4 L Hct (42 - 52 %) 29.0 L MCV (80.0 - 94.0 FL) 88.5 MCH (27.0 - 31.0 PG) 28.8 RDW (11.5 - 14.5 %) 20.6 H Plt Count (130 - 400 /CUMM) 177 MPV (7.4 - 10.4 FL) 8.2 Gran % (42.2 - 75.2 %) 63.4 Lymphocytes % (20.5 - 51.1 %) 28.3 Monocytes % (1.7 - 9.3 %) 7.6 Eosinophils % (0 - 5 %) 0.5 Basophils % (0.0 - 2.0 %) 0.2 Absolute Granulocytes (1.4 - 6.5 /CUMM) 6.3 Segmented Neutrophils (42.2 - 75.2 %) 62 Band Neutrophils (0.0 - 5.0 %) 12 H Absolute Lymphocytes (1.2 - 3.4 /CUMM) 2.8 Lymphocytes (20.5 - 51.1 %) 18 L Monocytes (1.7 - 9.3 %) 3 Absolute Monocytes (0.10 - 0.60 /CUMM) 0.8 H Eosinophils (0 - 5.0 %) 3 Absolute Eosinophils (0.0 - 0.7 /CUMM) 0.1 Basophils (0.0 - 2.0 %) 1 Absolute Basophils (0.0 - 0.2 /CUMM) 0 Metamyelocytes (0.0 - 1.0 %) 1 Nucleated RBCs (0.0 - 0.0 /100WBC) 1 H Platelet Estimate (ADEQUATE) ADEQUATE Hypochromic-Microcytic 1+ Poikilocytosis 1+ Anisocytosis 1+ Stomatocytes 1+ PUBS MCHC (33.0 - 37.0 G/DL) 32.5 L Microbiology Date/Time Procedure - Status Source Growth 08/06 1930 Respiratory Culture - RES LOWER RESP 08/06 1930 Gram Stain - RES LOWER RESP 08/06 1900 Blood Culture - RES BLOOD 08/06 1900 Blood Culture - RES BLOOD 08/06 1800 Urine Culture - RES URINE ROUT Impression/Plan Impression/Plan Impression/Plan: Afebrile. Intubated Skin reveals no rash. HEENT negative. Neck supple with no adenopathy; Picc line in place Lungs decreased breath sounds bilaterally. Heart regular rhythm with no murmur. Abdomen is obese, distended, tender to palpation, Incision noted with a gabriela drain in the rt side, feeding tube on the left side Extremities superficial ulcerations over the anterior tibial aspects of both legs, with 1+ edema bilaterally. Neuro is without focality. Duvall catheter is in place IMPRESSION This is a 76-year-old gentleman with significant ischemic heart, low ejection fraction, atrial fibrillation, previous AICD, previous 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 with prolonged antibiotic, previous history of peptic ulcer disease, diabetes, sinus rhythm upon admission was on Tikosyn, hyperlipidemia, apparently has never smoked before, previous history of lithotripsy, CABG, previous hip prosthesis infection status post removal of prosthesis in early 2017 now has the following issues * S/p Perf large DU ulcer s/p surg and then rpt emergent surg for acute peritonitis, followed by redo surg for persistant leak, now has sig gabriela drainage with ng suction and somatostatin. Patient now has significant fluid collection in the right paracolic gutter and the left side which may require drainage. * S/p Severe shock septic on multiple pressors now off pressors * Hypoxic respiratory failure due to above with no clinical evidence suggestive of pneumonia. Sputum does have gram positive cocci and mold ID, and final ID of organism is pending. * Sig drainage from the gabriela biliary leak which is ongoing * Significant ischemic heart disease with low ejection fraction high risk for fluid overload. Previous pafib in sinus now with a pacer and AICD. 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 * H/O LIAM was on cpap * On stress dose steroids now being weaned off RECOMMENDATION * COnt current care * Intervention per surg and ID * Pt would need a trach if he fails extubation * Will attempt to Extubate today if no IR intervention is planned * Lasix 40 mg one dose now * Keep potassium at 4 and mag above 2 * Intravenous pantoprazole * Heparin subcutaneous * Cardio follow up * Discussed with ID and Surg Pt critically ill tts 40 mins
--- NOTE | 2017-08-08 10:21 | PN- General Surgery ---
Surgical Brief Attending Note Brief Attending Note: Data and patient evaluated. CT images viewed personally. The duodenal leak is adequately drained. There is scant dorota drain fluid which is of no clinical consequence and should be observed. The drainage from wound is stable. No intervention recommended. It is likely necrotic fascia. No deep wound infection by CT. It should be observed with local wound cares. There is a new fluid collection in left mid abdomen, remote to duodenal fistula. Aspiration by IR can be performed to r/o infectious etiology. After above, trial of extubation. If fails, consider tracheostomy later this week.
--- NOTE | 2017-08-08 10:36 | PN- Infect Dx ---
Subjective Subjective: Afebrile on steroids. He offers no complaints. Objective Last 24 Hrs of Vital Signs/I&O Vital Signs Date Time Temp Pulse Resp B/P B/P Pulse O2 O2 Flow FiO2 Mean Ox Delivery Rate 08/08 1005 69 121/63 08/08 0843 35 08/08 0800 97.8 69 24 122/64 97 Ventilator 35% 08/08 0800 97 Ventilator 35% 08/08 0600 35 08/08 0400 95 Ventilator 35% 08/08 0324 35 08/08 0042 35 08/08 0000 94 Ventilator 35% 08/08 0000 99.1 68 20 120/58 94 Ventilator 35% 08/07 2220 35 08/07 2120 73 129/57 08/07 2000 97 Ventilator 35% 08/07 1900 35 08/07 1635 35 08/07 1600 98.6 90 18 138/78 97 Ventilator 35% 08/07 1600 94 Ventilator 35% 08/07 1432 35 08/07 1200 96 Ventilator 40% Intake & Output 08/08 1600 08/08 0800 08/08 0000 Intake Total 973 1339 Output Total 690 1010 Balance 283 329 Intake, IV 196 591 Intake, Oral 0 0 Intake, Tube 637 578 Feeding Intake, Tube 140 170 Irrigant Number 0 0 Bowel Movements Output, 375 375 Drainage Output, 50 Gastric Drainage Output, Urine 265 635 Physical Exam Other Physical Findings: He is mildly lethargic but easily arousable on the ventilator in no acute distress Lungs are clear Heart regular rhythm with no murmur Abdomen is distended, nontender with positive bowel sounds; dressing intact over the incision; WILLEM drains remain in place with significant output persisting Extremities no cyanosis, clubbing or edema; PICC remains in place in the right upper extremity with no inflammation at the site Duvall catheter remains in place Results Last 24 Hours of Lab Results: Laboratory Tests 08/08 08/08 0535 0406 Blood Gas pH (7.35 - 7.45 PH) 7.52 H pCO2 (35 - 45 TORR) 32 L pO2 (80 - 100 TORR) 83 HCO3 (21 - 28 MEQ/L) 26 ABG O2 Sat (Measured) (>96.0 %) 96.0 P-50 (Temp Corrected) N Carboxyhemoglobin (1.5 - 5.0 %) 0.3 L O2 Concentration % .35 Respiration Rate (BPM) 10 O2 Delivery Method VENT Vent Mode A/C Expiratory Pressure (CMH2O/P) 5 Tidal Volume (CC) 500 Chemistry Sodium (137 - 145 mmol/L) 138 Potassium (3.5 - 5.1 mmol/L) 3.9 Chloride (98 - 107 mmol/L) 98 Carbon Dioxide (22 - 30 mmol/L) 28 Anion Gap (5 - 16) 11 BUN (9 - 20 mg/dL) 25 H Creatinine (0.7 - 1.2 mg/dL) 0.8 Estimated GFR (>60 ml/min) > 60 Glucose (65 - 99 mg/dL) 133 H Calcium (8.4 - 10.2 mg/dL) 7.9 L Phosphorus (2.5 - 4.5 mg/dL) 3.7 Magnesium (1.6 - 2.3 mg/dL) 2.0 Total Bilirubin (0.2 - 1.3 mg/dL) 0.5 AST (17 - 59 U/L) 30 ALT (21 - 72 U/L) 39 Albumin (3.5 - 5.0 g/dL) 2.2 L Hematology CBC w Diff MAN DIFF ORDERED WBC (4.8 - 10.8 /CUMM) 11.0 H RBC (4.70 - 6.10 /CUMM) 3.08 L Hgb (14.0 - 18.0 G/DL) 9.0 L Hct (42 - 52 %) 27.5 L MCV (80.0 - 94.0 FL) 89.1 MCH (27.0 - 31.0 PG) 29.1 RDW (11.5 - 14.5 %) 19.7 H Plt Count (130 - 400 /CUMM) 186 MPV (7.4 - 10.4 FL) 8.4 Gran % (42.2 - 75.2 %) 64.1 Lymphocytes % (20.5 - 51.1 %) 26.7 Monocytes % (1.7 - 9.3 %) 8.6 Eosinophils % (0 - 5 %) 0.4 Basophils % (0.0 - 2.0 %) 0.2 Absolute Granulocytes (1.4 - 6.5 /CUMM) 7.1 H Segmented Neutrophils (42.2 - 75.2 %) 66 Band Neutrophils (0.0 - 5.0 %) 11 H Absolute Lymphocytes (1.2 - 3.4 /CUMM) 2.9 Lymphocytes (20.5 - 51.1 %) 18 L Monocytes (1.7 - 9.3 %) 5 Absolute Monocytes (0.10 - 0.60 /CUMM) 0.9 H Absolute Eosinophils (0.0 - 0.7 /CUMM) 0 Absolute Basophils (0.0 - 0.2 /CUMM) 0 Platelet Estimate (ADEQUATE) ADEQUATE Polychromasia 1+ Anisocytosis 1+ Stomatocytes 1+ Elliptocytes FEW PUBS MCHC (33.0 - 37.0 G/DL) 32.6 L Miscellaneous Phlebotomy Draw Site LEFT RADIAL 08/07 1800 Chemistry Sodium Cancelled Potassium Cancelled Chloride Cancelled Carbon Dioxide Cancelled Anion Gap Cancelled BUN Cancelled Creatinine Cancelled Glucose Cancelled Calcium Cancelled Phosphorus Cancelled Magnesium Cancelled Total Bilirubin Cancelled AST Cancelled ALT Cancelled Albumin Cancelled Last 24 Hours of Les Results: Sputum culture August 06 positive for Enterobacter sensitive to Ceftazidime, Ceftriaxone, Ciprofloxacin, Gentamicin, Bactrim and Meropenem and Staph aureus sensitivities pending Blood cultures August 06 negative Urine culture August 06 negative Recent Imaging Studies: Chest x-ray August 08, personally reviewed, reveals persistent bibasilar densities Assessment/Plan Impression: Remains stable clinically with temperatures remaining normal (on steroids) and with white blood cell count only mildly elevated, with decreased bandemia compared to several days ago, but with new/increasing loculated collections seen on the recent CT scan, worrisome for infection. Have discussed with Surgery and IR and will plan to drain these today. He continues to have significant output from both WILLEM drains and persistent purulent drainage from the incision, which is felt by Surgery to represent necrotic fascia. He is currently off antibiotics but, after his IR procedure, he can be started on antibiotics to cover the Escherichia coli and Group B strep isolated from the recent culture of the drainage from his incision as well as the organisms isolated from his recent sputum culture, though suspect these represent colonization with his stable respiratory status. He is now 30 days status post surgery for the perforated duodenal ulcer and 23 days status post an unsuccessful duodenal repair for the persistent enteric leak. Suggestion: 1. Await IR drainage of the bilateral loculated collections (have discussed with IR and surgery) 2. Would begin Vancomycin 1250 mg IV every 12 hours and Meropenem 1 g IV every 8 hours after his IR procedure pending final cultures
[2017-08-08 16:00] VITALS: BP 120/70
--- NOTE | 2017-08-08 16:48 | ULTRASOUND REPORT ---
PROCEDURE: Ultrasound-guided abdominal abscess drain placement INDICATION: 76-year-old male with leukocytosis and several intra-abdominal fluid collections. Request made for drain placement into collection within the left anterior abdomen. SPECIMEN: Culture and sensitivity REQUESTING PRACTITIONER: Itz Trimble MD CLINICIAN(S): Maynor Thomas M.D. CONSENT: Informed consent was obtained from the patient's nephew prior to the procedure. During this process, the procedure and potential alternatives were explained along with the intended outcome and benefits. The risks of the procedure, including the possibility of an unsuccessful procedure as well as the risk of not doing the procedure were discussed. The patient's nephew was given the opportunity to ask any questions regarding the procedure. A consent form which documents this discussion was placed in the medical record. MEDICATIONS: 10ml 1% lidocaine. TECHNIQUE/FINDINGS: Appropriate pre-procedure medical history and imaging studies were reviewed. The patient was located within the intensive care unit and therefore the procedure was performed there. A timeout procedure was performed. Ultrasound images of the left hemiabdomen demonstrated an approximately 10 cm complex fluid collection. Images were permanently saved to the record. An area of the patient's left abdomen was prepped and draped in the standard sterile fashion. 10 mL of 1% lidocaine was used to obtain local anesthesia of the skin and deeper tissues. A standard small bore needle was introduced to sample fluid and demonstrated a safe access route. Under direct sonographic guidance, a 12 Cam[place]onian pigtail drainage catheter was inserted into the fluid collection using trocar technique. The catheter was secured to the skin with a single suture and a sterile dressing was placed over the site. The catheter was then connected to a bag via gravity drainage. 30 mL of pus was aspirated and sent for requested analysis. The patient tolerated the procedure well without evidence of complications. IMPRESSION: Successful ultrasound-guided placement of 12 Cam[place]onian pigtail catheter into left abdominal abscess cavity. RECOMMENDATIONS: Drainage catheter will be managed by the surgical department.
[2017-08-09] VITALS: BP 140/68
[2017-08-09 05:19] LABS: ABSOLUTE BASOPHIL COUNT 0 /CUMM (0.0-0.2); ABSOLUTE EOSINOPHIL COUNT 0 /CUMM (0.0-0.7); ABSOLUTE GRANULOCYTE CT 9.2 /CUMM (1.4-6.5); ABSOLUTE LYMPH COUNT 2.5 /CUMM (1.2-3.4); ABSOLUTE MONOCYTE COUNT 0.8 /CUMM (0.10-0.60); BASOPHIL % 0 % (0.0-2.0); EOSINOPHIL % 0.3 % (0-5); GRANULOCYTE % 73.3 % (42.2-75.2); HEMATOCRIT 28.5 % (42-52); MEAN CORPUSCULAR HGB CONC 32.7 G/DL (33.0-37.0); MEAN CORPUSCULAR VOLUME 88.6 FL (80.0-94.0); MEAN PLATELET VOLUME 8.7 FL (7.4-10.4); PLATELET COUNT 202 /CUMM (130-400); RBC DISTRIBUTION WIDTH 19.6 % (11.5-14.5); RED BLOOD CELL CT 3.22 /CUMM (4.70-6.10); WHITE BLOOD CELL COUNT 12.5 /CUMM (4.8-10.8)
--- NOTE | 2017-08-09 06:38 | RADIOLOGY REPORT ---
EXAMINATION: XR PORTABLE CHEST CLINICAL INFORMATION: Mechanical ventilation. COMPARISON: Chest x-ray August 08, 2017 TECHNIQUE: Portable frontal view of the chest was obtained. 5:40 AM FINDINGS: Pacemaker lead in right atrium and right ventricle. Status post median sternotomy. Heart size enlarged. Blunting of the left costophrenic angle due to left pleural effusion. The volume of the left pleural effusion is similar to prior chest x-ray. Hazy density at both lung bases, greater on left than right, basilar infiltrate and/or atelectasis similar to prior study. Right-sided PICC line catheter tip in superior vena cava. Endotracheal tube catheter about 3 cm above the kika. Nasogastric tube in stomach. IMPRESSION: Endotracheal tube about 3 cm above the kika. Persistent blunted left costophrenic angle due to left pleural effusion. Persistent hazy opacities at lung bases left greater than right..
[2017-08-09 08:00] VITALS: BP 150/88
--- NOTE | 2017-08-09 08:13 | PN- CRCU ---
Subjective HPI/Critical Care Issues: Doing about the same events and data reveiwed Lower resp cultures noted with enterobacter and staph S/p Ir drainage with a pig tail with pus like material aspirated Cultures pending, Prelim gram neg rods Objective Current Medications: Current Medications Sig/Buck Start time Last Medication Dose Route Stop Time Status Admin Acetaminophen 1,000 MG Q6P PRN 07/16 0530 AC 07/20 N/A 1 UNIT IV 0659 Albuterol Sulfate 3 ML EVERY 4 HRS/AWAKE 07/27 0800 AC 08/08 INH 2009 Budesonide/ 2 PUF BID 07/26 1056 AC 08/08 Formoterol Fumarate INH 1700 Carvedilol 3.125 MG BID 07/28 1000 AC 08/08 PO 2155 Fentanyl Citrate 25 MCG Q4P PRN 08/05 2130 AC 08/07 IV 0406 Furosemide 40 MG ONCE ONE 08/08 1500 DC 08/08 IV 08/08 1501 1507 Heparin Sodium 5,000 UNIT Q8 08/05 1400 AC 08/09 (Porcine) SC 0551 Hydrocortisone 25 MG Q12 08/04 1000 AC 08/08 Sodium Succinate IV 2156 Insulin Aspart 0 Q4 07/25 1000 r 08/09 SC 0550 Insulin Detemir 20 UNITS BID 07/30 1000 AC 08/08 SC 2211 Lidocaine 1 ML .STK-MED ONE 08/08 1635 DC ID 08/08 1636 Meropenem 1 GM IQ8 08/08 1600 AC 08/08 IV 2344 Octreotide Acetate 500 MCG Q20H 07/15 1400 AC 08/08 Dextrose/Water 500 ML IV 1832 Pantoprazole Sodium 40 MG DAILY 08/08 1457 DC IV Pantoprazole Sodium 40 MG BID 07/10 1016 AC 08/08 IV 2156 Potassium Chloride 40 MEQ ONCE ONE 08/08 1500 DC 08/08 PO 08/08 1501 1507 Vancomycin HCl 1,250 MG Q12H 08/08 1600 AC 08/09 Dextrose/Water 250 ML IV 0334 Vital Signs & I&O Last 24 Hrs of Vitals and I&O: Laboratory Tests 08/09 08/08 08/08 0415 1605 1605 Chemistry Sodium (137 - 145 mmol/L) 136 L Potassium (3.5 - 5.1 mmol/L) 3.9 Chloride (98 - 107 mmol/L) 97 L Carbon Dioxide (22 - 30 mmol/L) 26 Anion Gap (5 - 16) 12 BUN (9 - 20 mg/dL) 29 H Creatinine (0.7 - 1.2 mg/dL) 0.8 Estimated GFR (>60 ml/min) > 60 Glucose (65 - 99 mg/dL) 198 H Calcium (8.4 - 10.2 mg/dL) 7.9 L Phosphorus (2.5 - 4.5 mg/dL) 3.8 Magnesium (1.6 - 2.3 mg/dL) 1.9 Total Bilirubin (0.2 - 1.3 mg/dL) 0.5 AST (17 - 59 U/L) 52 ALT (21 - 72 U/L) 57 Albumin (3.5 - 5.0 g/dL) 2.3 L Hematology CBC w Diff MAN DIFF ORDERED WBC (4.8 - 10.8 /CUMM) 12.5 H RBC (4.70 - 6.10 /CUMM) 3.22 L Hgb (14.0 - 18.0 G/DL) 9.3 L Hct (42 - 52 %) 28.5 L MCV (80.0 - 94.0 FL) 88.6 MCH (27.0 - 31.0 PG) 29.0 RDW (11.5 - 14.5 %) 19.6 H Plt Count (130 - 400 /CUMM) 202 MPV (7.4 - 10.4 FL) 8.7 Gran % (42.2 - 75.2 %) 73.3 Lymphocytes % (20.5 - 51.1 %) 20.2 L Monocytes % (1.7 - 9.3 %) 6.2 Eosinophils % (0 - 5 %) 0.3 Basophils % (0.0 - 2.0 %) 0 Absolute Granulocytes (1.4 - 6.5 /CUMM) 9.2 H Segmented Neutrophils (42.2 - 75.2 %) 67 Band Neutrophils (0.0 - 5.0 %) 11 H Absolute Lymphocytes (1.2 - 3.4 /CUMM) 2.5 Lymphocytes (20.5 - 51.1 %) 14 L Monocytes (1.7 - 9.3 %) 4 Absolute Monocytes (0.10 - 0.60 /CUMM) 0.8 H Eosinophils (0 - 5.0 %) 1 Absolute Eosinophils (0.0 - 0.7 /CUMM) 0 Absolute Basophils (0.0 - 0.2 /CUMM) 0 Metamyelocytes (0.0 - 1.0 %) 3 H % Normal PMNs (%) Platelet Estimate (ADEQUATE) ADEQUATE Polychromasia 1+ Hypochromic-Microcytic 1+ Poikilocytosis 1+ Basophilic Stippling SLIGHT Ovalocytes 1+ Stomatocytes FEW PUBS MCHC (33.0 - 37.0 G/DL) 32.7 L Other Body Source Fluid WBC (0 - 5 /CUMM) Fld Total RBCs Counted (%) 100 Fluid Glucose (mg/dL) < 20 Fluid Total Protein (g/dL) < 2.0 Fluid Albumin (g/dL) 1.0 Fluid LDH (U/L) > 79539 Fluid Amylase (U/L) < 30 08/08 08/08 0535 0406 Blood Gas pH (7.35 - 7.45 PH) 7.52 H pCO2 (35 - 45 TORR) 32 L pO2 (80 - 100 TORR) 83 HCO3 (21 - 28 MEQ/L) 26 ABG O2 Sat (Measured) (>96.0 %) 96.0 P-50 (Temp Corrected) N Carboxyhemoglobin (1.5 - 5.0 %) 0.3 L O2 Concentration % .35 Respiration Rate (BPM) 10 O2 Delivery Method VENT Vent Mode A/C Expiratory Pressure (CMH2O/P) 5 Tidal Volume (CC) 500 Chemistry Sodium (137 - 145 mmol/L) 138 Potassium (3.5 - 5.1 mmol/L) 3.9 Chloride (98 - 107 mmol/L) 98 Carbon Dioxide (22 - 30 mmol/L) 28 Anion Gap (5 - 16) 11 BUN (9 - 20 mg/dL) 25 H Creatinine (0.7 - 1.2 mg/dL) 0.8 Estimated GFR (>60 ml/min) > 60 Glucose (65 - 99 mg/dL) 133 H Calcium (8.4 - 10.2 mg/dL) 7.9 L Phosphorus (2.5 - 4.5 mg/dL) 3.7 Magnesium (1.6 - 2.3 mg/dL) 2.0 Total Bilirubin (0.2 - 1.3 mg/dL) 0.5 AST (17 - 59 U/L) 30 ALT (21 - 72 U/L) 39 Albumin (3.5 - 5.0 g/dL) 2.2 L Prealbumin (17.6 - 36.0 mg/dL) 10.4 L Hematology CBC w Diff MAN DIFF ORDERED WBC (4.8 - 10.8 /CUMM) 11.0 H RBC (4.70 - 6.10 /CUMM) 3.08 L Hgb (14.0 - 18.0 G/DL) 9.0 L Hct (42 - 52 %) 27.5 L MCV (80.0 - 94.0 FL) 89.1 MCH (27.0 - 31.0 PG) 29.1 RDW (11.5 - 14.5 %) 19.7 H Plt Count (130 - 400 /CUMM) 186 MPV (7.4 - 10.4 FL) 8.4 Gran % (42.2 - 75.2 %) 64.1 Lymphocytes % (20.5 - 51.1 %) 26.7 Monocytes % (1.7 - 9.3 %) 8.6 Eosinophils % (0 - 5 %) 0.4 Basophils % (0.0 - 2.0 %) 0.2 Absolute Granulocytes (1.4 - 6.5 /CUMM) 7.1 H Segmented Neutrophils (42.2 - 75.2 %) 66 Band Neutrophils (0.0 - 5.0 %) 11 H Absolute Lymphocytes (1.2 - 3.4 /CUMM) 2.9 Lymphocytes (20.5 - 51.1 %) 18 L Monocytes (1.7 - 9.3 %) 5 Absolute Monocytes (0.10 - 0.60 /CUMM) 0.9 H Absolute Eosinophils (0.0 - 0.7 /CUMM) 0 Absolute Basophils (0.0 - 0.2 /CUMM) 0 Platelet Estimate (ADEQUATE) ADEQUATE Polychromasia 1+ Anisocytosis 1+ Stomatocytes 1+ Elliptocytes FEW PUBS MCHC (33.0 - 37.0 G/DL) 32.6 L Miscellaneous Phlebotomy Draw Site LEFT RADIAL 08/07 1800 Chemistry Sodium Cancelled Potassium Cancelled Chloride Cancelled Carbon Dioxide Cancelled Anion Gap Cancelled BUN Cancelled Creatinine Cancelled Glucose Cancelled Calcium Cancelled Phosphorus Cancelled Magnesium Cancelled Total Bilirubin Cancelled AST Cancelled ALT Cancelled Albumin Cancelled Microbiology Date/Time Procedure - Status Source Growth 08/08 1605 Body Fluid Culture - RECD BODY FLUID 08/08 1605 Gram Stain - RECD BODY FLUID 08/06 1930 Respiratory Culture - RES LOWER RESP ENTEROBACTER AEROGENES STAPH AUREUS 08/06 1930 Gram Stain - RES LOWER RESP 08/06 1900 Blood Culture - RES BLOOD 08/06 1900 Blood Culture - RES BLOOD 08/06 1800 Urine Culture - COMP URINE ROUT Vital Signs Date Time Temp Pulse Resp B/P B/P Pulse O2 O2 Flow FiO2 Mean Ox Delivery Rate 08/09 0603 35 08/09 0400 94 Ventilator 35% 08/09 0356 35 08/09 0114 35 08/09 0000 94 Ventilator 35% 08/09 0000 96.8 68 20 140/68 94 Ventilator 35% 08/08 2241 35 08/08 2155 69 21 130/66 08/08 2018 35 08/08 1925 95 Ventilator 35% 08/08 1710 35 08/08 1600 95 Ventilator 35% 08/08 1600 97.7 69 24 120/70 95 Ventilator 35% 08/08 1351 35 08/08 1200 92 Ventilator 35% 08/08 1154 35 08/08 1005 69 121/63 08/08 0843 35 Intake & Output 08/09 1600 08/09 0800 08/09 0000 Intake Total 911 1190 Output Total 620 1230 Balance 291 -40 Intake, IV 283 450 Intake, Tube 548 600 Feeding Intake, Tube 80 140 Irrigant Output, 110 250 Drainage Output, Other 80 Output, Urine 510 900 Impression/Plan Impression/Plan Impression/Plan: Afebrile. Intubated Skin reveals no rash. HEENT negative. Neck supple with no adenopathy; Picc line in place Lungs decreased breath sounds bilaterally. Heart regular rhythm with no murmur. Abdomen is obese, distended, tender to palpation, Incision noted with a gabriela drain in the rt side, feeding tube on the left side Extremities superficial ulcerations over the anterior tibial aspects of both legs, with 1+ edema bilaterally. Neuro is without focality. Duvall catheter is in place IMPRESSION This is a 76-year-old gentleman with significant ischemic heart, low ejection fraction, atrial fibrillation, previous AICD, previous 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 with prolonged antibiotic, previous history of peptic ulcer disease, diabetes, sinus rhythm upon admission was on Tikosyn, hyperlipidemia, apparently has never smoked before, previous history of lithotripsy, CABG, previous hip prosthesis infection status post removal of prosthesis in early 2017 now has the following issues * S/p Perf large DU ulcer s/p surg and then rpt emergent surg for acute peritonitis, followed by redo surg for persistant leak / now has sig gabriela drainage with ng suction and somatostatin / Patient now has significant fluid collection in the right paracolic gutter s/p pig tail on 08/08 with gram neg rods being drained * S/p Severe shock septic on multiple pressors now off pressors * Resolving Hypoxic respiratory failure due to above with no clinical evidence suggestive of pneumonia. Sputum does have enterobacter and staph * Sig drainage from the gabriela biliary leak which is ongoing/ with fluid collection which is pyogenic * Significant ischemic heart disease with low ejection fraction high risk for fluid overload. Previous pafib in sinus now with a pacer and AICD. 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 * H/O LIAM was on cpap * On stress dose steroids now being weaned off RECOMMENDATION * COnt current care * Pt would need a trach if he fails extubation * Will attempt to Extubate today * Lasix 40 mg one dose now * Keep potassium at 4 and mag above 2 * Intravenous pantoprazole * Heparin subcutaneous * Cardio follow up * Discussed with ID and Surg yesterday Pt critically ill tts 40 mins
--- NOTE | 2017-08-09 09:19 | PN- General Surgery ---
Surgical Brief Attending Note Brief Attending Note: Vent wean underway. May need tracheostomy. Perc drain placed right abdomen collection with gram-neg laden purlence seen. Since stopping the recycling of his enteric contents, his prealbumin has dropped significantly despite goal feeds. Will need to restart refeeding drain output. Overall prognosis poor. He seems more lethargic today.
--- NOTE | 2017-08-09 09:40 | PN- Resident CRCU ---
Subjective HPI/CRCU Issues: Hypoxic respiratory failure on extubation trials Perforated duodenal ulcer status post duodenal repair and enteric leak. Heart failure with reduced ejection fraction status post AICD. 24 Hour Events: Patient remains intubated. MAXIMUM TEMPERATURE of 98.6 overnight. Paced rhythm 60s to 70s. Stable BP. Will aatemp extubation trial today. Objective Vital Signs & I&O Last 8 Hrs of Vitals and I&O: Vital Signs Date Time Temp Pulse Resp B/P B/P Pulse O2 O2 Flow FiO2 Mean Ox Delivery Rate 08/09 1140 45 08/09 0944 97.6 75 20 168/75 08/09 0852 35 08/09 0800 99 Ventilator 35% 08/09 08 97.6 75 20 150/88 99 Ventilator 35% 08/09 0603 35 08/09 0400 94 Ventilator 35% 08/09 0356 35 08/09 0114 35 12 0000 94 Ventilator 35% 08/09 0000 96.8 68 20 140/68 94 Ventilator 35% 08/08 2241 35 08/08 2155 69 21 130/66 08/08 2018 35 08/08 1925 95 Ventilator 35% 08/08 1710 35 08/08 1600 95 Ventilator 35% 08/08 1600 97.7 69 24 120/70 95 Ventilator 35% 08/08 1351 35 Intake & Output 08/09 1600 08/09 0800 12 0000 Intake Total 911 1190 Output Total 620 1230 Balance 291 -40 Intake, IV 283 450 Intake, Tube 548 600 Feeding Intake, Tube 80 140 Irrigant Output, 110 250 Drainage Output, Other 80 Output, Urine 510 900 Exam General Appearance: no apparent distress, awake, intubated Head: atraumatic, normal appearance Neck: supple Respiratory: normal breath sounds, chest non-tender, no respiratory distress Cardiovascular: regular rate/rhythm Gastrointestinal: vertical surgical wound, Distended and mildly tender Extremities: no edema Weaning Parameters NIF: 32 Minute Volume: 16.2 Resp rate: 26 Vt: 626 Heart Rate: 75 Weaning Schedule Start Time: 918 Minute Volume: 15.3 Resp Rate: 28 Vt: 548 Heart Rate: 74 End Time: 1137 Minute Volume: 12.5 Resp Rate: 54 Vt: 645 Heart Rate: 69 Current Medications: Current Medications Sig/Buck Start time Last Medication Dose Route Stop Time Status Admin Acetaminophen 1,000 MG Q6P PRN 07/16 0530 AC 07/20 N/A 1 UNIT IV 0659 Albuterol Sulfate 3 ML EVERY 4 HRS/AWAKE 07/27 0800 AC 08/09 INH 1151 Budesonide/ 2 PUF BID 07/26 1056 AC 08/09 Formoterol Fumarate INH 0846 Carvedilol 3.125 MG BID 07/28 1000 AC 08/09 PO 0944 Fentanyl Citrate 25 MCG Q4P PRN 08/05 2130 AC 08/07 IV 0406 Furosemide 40 MG ONCE ONE 08/09 1215 UNVr IV 08/09 1216 Furosemide 40 MG ONCE ONE 08/08 1500 DC 08/08 IV 08/08 1501 1507 Heparin Sodium 5,000 UNIT Q8 08/05 1400 AC 08/09 (Porcine) SC 0551 Hydrocortisone 25 MG Q12 08/04 1000 AC 08/09 Sodium Succinate IV 0945 Insulin Aspart 0 Q4 07/25 1000 AC 08/09 SC 0953 Insulin Detemir 20 UNITS BID 07/30 1000 AC 08/09 SC 0944 Lidocaine 1 ML .STK-MED ONE 08/08 1635 DC ID 08/08 1636 Meropenem 1 GM IQ8 08/08 1600 AC 08/09 IV 0848 Octreotide Acetate 500 MCG Q20H 07/15 1400 AC 08/08 Dextrose/Water 500 ML IV 1832 Pantoprazole Sodium 40 MG DAILY 08/08 1457 DC IV Pantoprazole Sodium 40 MG BID 07/10 1016 AC 08/09 IV 0945 Potassium Chloride 40 MEQ ONCE ONE 08/08 1500 DC 08/08 PO 08/08 1501 1507 Vancomycin HCl 1,250 MG Q12H 08/08 1600 AC 08/09 Dextrose/Water 250 ML IV 0334 Impression/Plan Impression/Problem List Impression: 76 year old gentleman PAF on Tikosyn, not on AC, 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 extubated, continues to be on tube feeds. #Endotracheal intubation - ABG PH 7.54/pC02 32/ P02 85 and HCO3 27 - Despite the fact respiratory rate is 10, patient used to override the ventilator. FIo2 35% -Chest x-ray and ABG daily -Patient will have extubation trials for possible extubation #Septic shock - 2/2 peritonitis from perforated duodenal ulcer - Off Levophid - Started Vancomycin and Meropenem. - Continue Hydrocortisone 50 mg Q12 #V. tach - F/u cardio recs - Continue Carvedilol 3.125 twice a day with holding parameters #Hx of PAF on Tikosyn - Curently in NSR, and rate controlled - Continue to hold tikosyn # Perforated duodenal ulcer s/p repair -CT abdomen and pelvis with IV contrast was obtained for leukocytosis that revealed loculated fluid collections along the right paracolic gutter and left abdomen -Surgical evaluation on board -Status post Successful ultrasound-guided placement of 12 Turkish pigtail catheter into left abdominal abscess cavity on 08/08/17 Will follow up body fluid culture which is already growing heavy growth of gram- negative rods. Patient started on Vancomycin and Meropenem day2 per ID recommendations - Status post expiratory laparotomy and suture repair of duodenal ulcer with Fabrizio patch on 07/09 and 07/16--- no recommendation for further surgical intervention at the moment - Maintain octreotide drip for continuous drainage from WILLEM--decision will made when patient is extubated regarding octreotide drip - IV Protonix 40mg BID - Status post daptomycin and meropenem, ID on board, body fluid culture 2 from the OR positive for vancomycin-resistant enterococcus -Respiratory culture from 07/18 positive for vancomycin-resistant enterococcus -Respiratory culture from 07/30 positive for 1. Moderate growth of: ESCHERICHIA COLI 2. Light growth of: BETA STREP GROUP B -Respiratory culture from 07/30 positive for Scant growth of 1. ENTEROBACTER AEROGENES 2. Light growth of: STAPH AUREUS #USMAN - Resolved - Continue to montior UOP, monitor BUN increase #Uncontrolled DM, secondary to Sepsis, pressors and octreotide - Continue Levemir 20 units twice a day - Novolog SS every 4 hours - Target Blood sugar 140 -180 - Continue following endocrine recommendation - DVT prophylaxis ALPS and SC heparin - Diet Continue on J tube feeding, rate 75 ml/h - Code Status Full Code Consultation ID, surgery, cardiology, nephrology, endocrinology IV access PICC line right arm Problem List: 1. Leukocytosis 2. Duodenal ulcer with perforation 3. Perforated viscus Pain Ratin Tomorrow's Labs & Rationales: CBC for leukocytosis ICU bundle follow electrolytes Plan DVT/Prophylaxis: mechanical, pharmacological
--- NOTE | 2017-08-09 10:47 | PN- Infect Dx ---
Subjective Subjective: Afebrile on steroids. He is minimally responsive and does not indicate any specific complaints. Objective Last 24 Hrs of Vital Signs/I&O Vital Signs Date Time Temp Pulse Resp B/P B/P Pulse O2 O2 Flow FiO2 Mean Ox Delivery Rate 08/09 0944 97.6 75 20 168/75 08/09 0852 35 08/09 0800 99 Ventilator 35% 08/09 0800 97.6 75 20 150/88 99 Ventilator 35% 08/09 0603 35 08/09 0400 94 Ventilator 35% 08/09 0356 35 08/09 0114 35 08/09 0000 94 Ventilator 35% 08/09 0000 96.8 68 20 140/68 94 Ventilator 35% 08/08 2241 35 08/08 2155 69 21 130/66 08/08 2018 35 08/08 1925 95 Ventilator 35% 08/08 1710 35 08/08 1600 95 Ventilator 35% 08/08 1600 97.7 69 24 120/70 95 Ventilator 35% 08/08 1351 35 08/08 1200 92 Ventilator 35% 08/08 1154 35 Intake & Output 08/09 1600 08/09 0800 08/09 0000 Intake Total 911 1190 Output Total 620 1230 Balance 291 -40 Intake, IV 283 450 Intake, Tube 548 600 Feeding Intake, Tube 80 140 Irrigant Output, 110 250 Drainage Output, Other 80 Output, Urine 510 900 Physical Exam Other Physical Findings: He is lethargic but responsive on the ventilator Lungs scattered rhonchi bilaterally Heart regular rhythm with no murmur Abdomen is distended, possibly tender to palpation, with positive bowel sounds; incision with purulent appearing drainage from the inferior aspect unchanged; left sided catheter in place with purulent drainage (10 mL overnight); WILLEM drains remain in place with significant output persisting Extremities no cyanosis, clubbing or edema; PICC in the right upper extremity with no inflammation at the site Duvall catheter remains in place Results Last 24 Hours of Lab Results: Laboratory Tests 08/09 08/08 08/08 0415 1605 1605 Chemistry Sodium (137 - 145 mmol/L) 136 L Potassium (3.5 - 5.1 mmol/L) 3.9 Chloride (98 - 107 mmol/L) 97 L Carbon Dioxide (22 - 30 mmol/L) 26 Anion Gap (5 - 16) 12 BUN (9 - 20 mg/dL) 29 H Creatinine (0.7 - 1.2 mg/dL) 0.8 Estimated GFR (>60 ml/min) > 60 Glucose (65 - 99 mg/dL) 198 H Calcium (8.4 - 10.2 mg/dL) 7.9 L Phosphorus (2.5 - 4.5 mg/dL) 3.8 Magnesium (1.6 - 2.3 mg/dL) 1.9 Total Bilirubin (0.2 - 1.3 mg/dL) 0.5 AST (17 - 59 U/L) 52 ALT (21 - 72 U/L) 57 Albumin (3.5 - 5.0 g/dL) 2.3 L Hematology CBC w Diff MAN DIFF ORDERED WBC (4.8 - 10.8 /CUMM) 12.5 H RBC (4.70 - 6.10 /CUMM) 3.22 L Hgb (14.0 - 18.0 G/DL) 9.3 L Hct (42 - 52 %) 28.5 L MCV (80.0 - 94.0 FL) 88.6 MCH (27.0 - 31.0 PG) 29.0 RDW (11.5 - 14.5 %) 19.6 H Plt Count (130 - 400 /CUMM) 202 MPV (7.4 - 10.4 FL) 8.7 Gran % (42.2 - 75.2 %) 73.3 Lymphocytes % (20.5 - 51.1 %) 20.2 L Monocytes % (1.7 - 9.3 %) 6.2 Eosinophils % (0 - 5 %) 0.3 Basophils % (0.0 - 2.0 %) 0 Absolute Granulocytes (1.4 - 6.5 /CUMM) 9.2 H Segmented Neutrophils (42.2 - 75.2 %) 67 Band Neutrophils (0.0 - 5.0 %) 11 H Absolute Lymphocytes (1.2 - 3.4 /CUMM) 2.5 Lymphocytes (20.5 - 51.1 %) 14 L Monocytes (1.7 - 9.3 %) 4 Absolute Monocytes (0.10 - 0.60 /CUMM) 0.8 H Eosinophils (0 - 5.0 %) 1 Absolute Eosinophils (0.0 - 0.7 /CUMM) 0 Absolute Basophils (0.0 - 0.2 /CUMM) 0 Metamyelocytes (0.0 - 1.0 %) 3 H % Normal PMNs (%) Platelet Estimate (ADEQUATE) ADEQUATE Polychromasia 1+ Hypochromic-Microcytic 1+ Poikilocytosis 1+ Basophilic Stippling SLIGHT Ovalocytes 1+ Stomatocytes FEW PUBS MCHC (33.0 - 37.0 G/DL) 32.7 L Other Body Source Fluid WBC (0 - 5 /CUMM) Fld Total RBCs Counted (%) 100 Fluid Glucose (mg/dL) < 20 Fluid Total Protein (g/dL) < 2.0 Fluid Albumin (g/dL) 1.0 Fluid LDH (U/L) > 08017 Fluid Amylase (U/L) < 30 Last 24 Hours of Les Results: Left abdominal fluid collection August 08 positive for gram-negative rods Sputum culture August 06 positive for Enterobacter sensitive to Ceftriaxone, Ciprofloxacin, Meropenem and Bactrim and Staph aureus sensitive to Oxacillin Blood cultures August 06 negative Recent Imaging Studies: Chest x-ray August 09 persistent basilar densities, unchanged from previous films Assessment/Plan Impression: Overall status poor, with increased lethargy, status post drainage of a left abdominal abscess yesterday, with 30 mL of pus aspirated and with a catheter left in place. He remains afebrile (on steroids) with white blood cell count slightly elevated, with mild bandemia, now on Vancomycin and Meropenem pending final cultures. His sputum culture is growing Enterobacter and MSSA but, with his respiratory status and chest x-ray stable, feel that this represents colonization. He continues to have significant output from both WILLEM drains and persistent purulent drainage from the incision, felt by Surgery to represent necrotic fascia, now 31 days status post surgery for the perforated duodenal ulcer and 24 days status post an unsuccessful duodenal repair for the persistent enteric leak. Suggestion: 1. Follow-up final cultures 2. Continue Vancomycin and Meropenem pending above
--- NOTE | 2017-08-09 12:20 | PN- Diabetes ---
Assessment/Plan Assessment: 76-year-old male with Hx of CAD with low ejection fraction, atrial fibrillation, AICD, previous infection of hip with prolonged antibiotic, history of peptic ulcer disease, diabetes and renal stone, was admitted for perforation of duodenum now with septic shock in ICU. He was on 3 pressors, TPN, octreotide drip and bicarb drip. His BP remained low and stress dose of steroid was initiated despite his am cortisol was 24.8. Patient is still on octreotide drip. Patient was re-intubated on 07/26/2017. He has been off on TPN. Currently he is on tube feeding with Vital 75 mL per hour. Levemir was increased to 20 units twice a day and Novolog coverage every 4 hours was adjusted on . The patient's most recent blood sugars are 136, 218, 222 and 230 Hydrocortisone was decreased to 25 mg iv every 12 hours. Plan: 1. continue Hydrocortisone 25 mg iv every 12 hours; 2. continue Levemir 20 units twice a day; 3. adjust Novolog coverage every 4 hours; detail see the inpatient DM order; 4. monitor FSGs, VS and electrolytes. will follow. Inpatient Diabetes Orders Every 4 Hours: Bolus Insulin: Novolog < 80 mg/dl: no coverage 80-100 mg/dl: no coverage 101-120 mg/dl: 10 units 121-150 mg/dl: 10 units 151-200 mg/dl: 10 units 201-250 mg/dl: 12 units 251-300 mg/dl: 14 units 301-350 mg/dl: 16 units 351-400 mg/dl: 18 units > 400 mg/dl: 20 units Subjective Subjective: patient remains intubated Objective Last 24 Hrs of Vital Signs/I&O Vital Signs Date Time Temp Pulse Resp B/P B/P Pulse O2 O2 Flow FiO2 Mean Ox Delivery Rate 08/09 1140 45 08/09 0944 97.6 75 20 168/75 08/09 0852 35 08/09 0800 99 Ventilator 35% 08/09 0800 97.6 75 20 150/88 99 Ventilator 35% 08/09 0603 35 08/09 0400 94 Ventilator 35% 08/09 0356 35 08/09 0114 35 08/09 0000 94 Ventilator 35% 08/09 0000 96.8 68 20 140/68 94 Ventilator 35% 08/08 2241 35 08/08 2155 69 21 130/66 08/08 2018 35 08/08 1925 95 Ventilator 35% 08/08 1710 35 08/08 1600 95 Ventilator 35% 08/08 1600 97.7 69 24 120/70 95 Ventilator 35% 08/08 1351 35 Intake & Output 08/09 0800 08/09 0000 Intake Total 911 1190 Output Total 620 1230 Balance 291 -40 Intake, IV 283 450 Intake, Tube 548 600 Feeding Intake, Tube 80 140 Irrigant Output, 110 250 Drainage Output, Other 80 Output, Urine 510 900 Findings Pertinent Lab/Les Results: Laboratory Tests 08/09 08/08 08/08 0415 1605 1605 Chemistry Sodium (137 - 145 mmol/L) 136 L Potassium (3.5 - 5.1 mmol/L) 3.9 Chloride (98 - 107 mmol/L) 97 L Carbon Dioxide (22 - 30 mmol/L) 26 Anion Gap (5 - 16) 12 BUN (9 - 20 mg/dL) 29 H Creatinine (0.7 - 1.2 mg/dL) 0.8 Estimated GFR (>60 ml/min) > 60 Glucose (65 - 99 mg/dL) 198 H Calcium (8.4 - 10.2 mg/dL) 7.9 L Phosphorus (2.5 - 4.5 mg/dL) 3.8 Magnesium (1.6 - 2.3 mg/dL) 1.9 Total Bilirubin (0.2 - 1.3 mg/dL) 0.5 AST (17 - 59 U/L) 52 ALT (21 - 72 U/L) 57 Albumin (3.5 - 5.0 g/dL) 2.3 L Hematology CBC w Diff MAN DIFF ORDERED WBC (4.8 - 10.8 /CUMM) 12.5 H RBC (4.70 - 6.10 /CUMM) 3.22 L Hgb (14.0 - 18.0 G/DL) 9.3 L Hct (42 - 52 %) 28.5 L MCV (80.0 - 94.0 FL) 88.6 MCH (27.0 - 31.0 PG) 29.0 RDW (11.5 - 14.5 %) 19.6 H Plt Count (130 - 400 /CUMM) 202 MPV (7.4 - 10.4 FL) 8.7 Gran % (42.2 - 75.2 %) 73.3 Lymphocytes % (20.5 - 51.1 %) 20.2 L Monocytes % (1.7 - 9.3 %) 6.2 Eosinophils % (0 - 5 %) 0.3 Basophils % (0.0 - 2.0 %) 0 Absolute Granulocytes (1.4 - 6.5 /CUMM) 9.2 H Segmented Neutrophils (42.2 - 75.2 %) 67 Band Neutrophils (0.0 - 5.0 %) 11 H Absolute Lymphocytes (1.2 - 3.4 /CUMM) 2.5 Lymphocytes (20.5 - 51.1 %) 14 L Monocytes (1.7 - 9.3 %) 4 Absolute Monocytes (0.10 - 0.60 /CUMM) 0.8 H Eosinophils (0 - 5.0 %) 1 Absolute Eosinophils (0.0 - 0.7 /CUMM) 0 Absolute Basophils (0.0 - 0.2 /CUMM) 0 Metamyelocytes (0.0 - 1.0 %) 3 H % Normal PMNs (%) Platelet Estimate (ADEQUATE) ADEQUATE Polychromasia 1+ Hypochromic-Microcytic 1+ Poikilocytosis 1+ Basophilic Stippling SLIGHT Ovalocytes 1+ Stomatocytes FEW PUBS MCHC (33.0 - 37.0 G/DL) 32.7 L Other Body Source Fluid WBC (0 - 5 /CUMM) Fld Total RBCs Counted (%) 100 Fluid Glucose (mg/dL) < 20 Fluid Total Protein (g/dL) < 2.0 Fluid Albumin (g/dL) 1.0 Fluid LDH (U/L) > 38002 Fluid Amylase (U/L) < 30
--- NOTE | 2017-08-09 12:31 | PN- Cardiology ---
Subjective Subjective: Intubated and sedated. Properly functioning pacemaker rhythm on monitoring. Objective Vital Signs and I&Os Vital Signs Date Time Temp Pulse Resp B/P B/P Pulse O2 O2 Flow FiO2 Mean Ox Delivery Rate 08/09 1140 45 08/09 0944 97.6 75 20 168/75 08/09 0852 35 08/09 0800 99 Ventilator 35% 08/09 08 97.6 75 20 150/88 99 Ventilator 35% 08/09 0603 35 08/09 0400 94 Ventilator 35% 08/09 0356 35 08/09 0114 35 08/09 0000 94 Ventilator 35% 08/09 0000 96.8 68 20 140/68 94 Ventilator 35% 08/08 2241 35 08/08 2155 69 21 130/66 08/08 2018 35 08/08 1925 95 Ventilator 35% 08/08 1710 35 08/08 1600 95 Ventilator 35% 08/08 1600 97.7 69 24 120/70 95 Ventilator 35% 08/08 1351 35 Intake & Output 08/09 1600 08/09 0808/09 0000 08/08 1600 08/08 0800 08/08 0000 Intake Total 911 1190 041 711 5134 Output Total 620 1230 182 894 5291 Balance 291 -40 40 283 329 Intake, IV 283 450 185 196 591 Intake, Oral 0 0 Intake, Tube 548 600 565 637 578 Feeding Intake, Tube 80 140 140 140 170 Irrigant Number 0 0 Bowel Movements Output, 110 250 275 375 375 Drainage Output, 75 50 Gastric Drainage Output, Other 80 Output, Urine 510 900 500 265 635 Patient 260 lb Weight Weight Bed scale Measurement Method Physical Exam: Intubated elderly male with morbid obesity. Vital signs: See above. Neck: No JVD no bruits. Lungs: scattered rhonchi bilaterally. Heart: S1, S2 (regular) with soft systolic murmur. Abdomen: Distended, nontender to palpation, positive bowel sounds, incision with purulent appearing drainage from the inferior aspect of wound w/o change. Extremities no cyanosis, clubbing or edema. Assessment/Plan Assessment/Plan [id number] w/ hx of morbid obesity, LIAM on CPAP, COPD, HTN, HLD, DM, CAD/ICM (s/ p IMI in 1998, CABG 4 w/ WHITE to LAD and individual SVGs to Dx, OM, PDA & MAZE) , and recurrent PAF who presented in an unkempt state via ambulance w/ UTI & subsequently had a perforation of a duodenal ulcer for which he underwent surgery (Fabrizio patch) on 07/09/2017 with worsening clinical status requiring return to the OR on 07/16/2017 for exploratory laparotomy and suture repair duodenal ulcer with Fabrizio patch. More lethargic s/p drainage of a left abdominal abscess on 08/08/2017 w/ pus aspiration & catheter in place. Hemodynamically stable with properly functioning electronic pacemaker nearing end-of-life (EOL), but without immediate concern for pacemaker failure. Continues to have significant output from both WILLEM drains and persistent purulent drainage from his incision, that is felt by surgery to represent necrotic fascia. Recommendations: * If further significant ventricular tachycardia can place on amiodarone. * Pacemaker functioning properly and should for months, even though near EOL. * Maintain potassium between 4.0-4.5 mEq per liter. * Maintain magnesium and maintain at or above 2.0 mEq per liter. * Continue to follow-up on infectious disease, critical care, endocrine, renal and surgical recommendations. * Continue DVT prophylaxis. Continue telemetry? Not applicable (In ICU.)
[2017-08-09 16:00] VITALS: BP 142/72
[2017-08-10] VITALS: BP 146/90
[2017-08-10 04:10] LABS: ABSOLUTE BASOPHIL COUNT 0 /CUMM (0.0-0.2); ABSOLUTE EOSINOPHIL COUNT 0 /CUMM (0.0-0.7); ABSOLUTE GRANULOCYTE CT 7.5 /CUMM (1.4-6.5); ABSOLUTE LYMPH COUNT 2.6 /CUMM (1.2-3.4); ABSOLUTE MONOCYTE COUNT 0.8 /CUMM (0.10-0.60); BASOPHIL % 0.3 % (0.0-2.0); EOSINOPHIL % 0.4 % (0-5); GRANULOCYTE % 68.4 % (42.2-75.2); HEMATOCRIT 27.5 % (42-52); MEAN CORPUSCULAR HGB 29.1 PG (27.0-31.0); MEAN CORPUSCULAR HGB CONC 32.9 G/DL (33.0-37.0); MEAN CORPUSCULAR VOLUME 88.4 FL (80.0-94.0); MEAN PLATELET VOLUME 8.1 FL (7.4-10.4); PLATELET COUNT 213 /CUMM (130-400); RBC DISTRIBUTION WIDTH 20.6 % (11.5-14.5); RED BLOOD CELL CT 3.11 /CUMM (4.70-6.10)
--- NOTE | 2017-08-10 06:05 | RADIOLOGY REPORT ---
EXAMINATION: XR PORTABLE CHEST CLINICAL INFORMATION: Endotracheal tube. COMPARISON: Chest x-ray August 09, 2017 TECHNIQUE: Portable frontal view of the chest was obtained. 5:28 AM FINDINGS: There is breathing motion. Endotracheal tube catheter about 4.5 cm above kika. Status post median sternotomy. Pacemaker leads in right atrium and right ventricle. Heart size enlarged. No significant pulmonary vascular congestion. There is haziness at both lung bases, greater on left than right. This can be due to pleural effusions and/or infiltrate /atelectasis. Aeration of lung bases is similar to prior chest x-ray August 09, 2017. IMPRESSION: Endotracheal tube catheter 4.57 is left kika. Persistent bibasilar airspace disease and pleural effusion, greater on left than right, similar prior chest x-ray August 09, 2017.
--- NOTE | 2017-08-10 07:24 | PN- Resident CRCU ---
Ul Mani RODRÍGUEZ,Maurilio 08/10/17 0724: Objective Vital Signs & I&O Last 8 Hrs of Vitals and I&O: Intake & Output 08/10 1600 Intake Total 1715 Output Total 1245 Balance 470 Intake, IV 250 Intake, Other 760 Intake, Tube 540 Feeding Intake, Tube 165 Irrigant Output, 770 Drainage Output, 75 Gastric Drainage Output, Urine 400 Exam General Appearance: no apparent distress, awake, intubated, lethargic Head: atraumatic Respiratory: normal breath sounds, chest non-tender, no respiratory distress Cardiovascular: regular rate/rhythm Gastrointestinal: vertical surgical wound with drains in place, Distended and mildly tender Extremities: no edema Weaning Parameters NIF: 32 Minute Volume: 16.2 Resp rate: 26 Vt: 626 Heart Rate: 75 Weaning Schedule Start Time: 0919 Minute Volume: 15.3 Resp Rate: 28 Vt: 548 Heart Rate: 74 End Time: 1138 Minute Volume: 12.5 Resp Rate: 54 Vt: 645 Heart Rate: 69 Current Medications: Current Medications Sig/Buck Start time Last Medication Dose Route Stop Time Status Admin Acetaminophen 1,000 MG Q6P PRN 07/16 0530 AC 07/20 N/A 1 UNIT IV 0659 Albuterol Sulfate 3 ML EVERY 4 HRS/AWAKE 07/27 0800 AC 08/10 INH 1621 Ampicillin Sodium/ 3,000 MG Q6H 08/10 2300 AC Sulbactam Sodium IV Sodium Chloride 100 ML Ampicillin Sodium/ 3,000 MG Q6 08/10 1415 DC 08/10 Sulbactam Sodium IV 1659 Sodium Chloride 100 ML Budesonide/ 2 PUF BID 07/26 1056 AC 08/10 Formoterol Fumarate INH 1623 Carvedilol 3.125 MG BID 07/28 1000 AC 08/10 PO 1011 Ciprofloxacin 400 MG Q12H 08/11 0500 AC Dextrose/Water 200 ML IV Ciprofloxacin 400 MG Q12 08/10 1415 DC 08/10 Dextrose/Water 200 ML IV 1659 Fentanyl Citrate 25 MCG Q4P PRN 08/05 2130 AC 08/07 IV 0406 Glycerin 2 SPRAY Q2P PRN 08/10 0445 AC PO Heparin Sodium 5,000 UNIT Q8 08/05 1400 AC 08/10 (Porcine) SC 1345 Hydrocortisone 25 MG Q12 08/04 1000 AC 08/10 Sodium Succinate IV 1012 Insulin Aspart 0 Q4 07/25 1000 AC 08/10 SC 1345 Insulin Detemir 20 UNITS BID 07/30 1000 AC 08/10 SC 1011 Magnesium Sulfate 1 GM ONCE ONE 08/10 0445 DC 08/10 Dextrose/Water 100 ML IV 08/10 0844 0455 Meropenem 1 GM IQ8 08/08 1600 DC 08/10 IV 0755 Octreotide Acetate 500 MCG Q20H 07/15 1400 AC 08/10 Dextrose/Water 500 ML IV 1345 Pantoprazole Sodium 40 MG BID 07/10 1016 AC 08/10 IV 1011 Potassium Chloride 20 MEQ BID 08/10 2200 AC PO Potassium Chloride 60 MEQ ONCE ONE 08/10 0445 DC 08/10 PO 08/10 0446 0455 Vancomycin HCl 1,250 MG Q12H 08/08 1600 DC 08/10 Dextrose/Water 250 ML IV 0341 Impression/Plan Impression/Problem List Impression: 76 year old gentleman PAF on Tikosyn, not on AC, 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 extubated, continues to be on tube feeds. #Endotracheal intubation - ABG PH 7.53/pC02 33/ P02 105 and HCO3 27 - Despite the fact respiratory rate is 10, patient used to override the ventilator. FIo2 45%, slightly increased from yesterday -Chest x-ray and ABG daily -Patient will have extubation trials for possible extubation #Septic shock - 2/2 peritonitis from perforated duodenal ulcer - Off Levophed - Started Vancomycin and Meropenem initally as per ID, now culture growing Enterobacter, possibly CRE (carbopenem resistant). - Antibiotics changed to Unasyn 3 g IV every 6 hours and Ciprofloxacin 400 mg IV every 12 hours - Continue Hydrocortisone 50 mg Q12 #V. tach - F/u cardio recs - Continue Carvedilol 3.125 twice a day with holding parameters #Hx of PAF on Tikosyn - Curently in NSR, and rate controlled - Continue to hold tikosyn # Perforated duodenal ulcer s/p repair -CT abdomen and pelvis with IV contrast was obtained for leukocytosis that revealed loculated fluid collections along the right paracolic gutter and left abdomen -Surgical evaluation on board -Status post Successful ultrasound-guided placement of 12 Serbian pigtail catheter into left abdominal abscess cavity on 08/08/17 -Body fluid culture grew heavy growth of gram-negative rods, culture growing Enterobacter, possibly CRE (carbopenem resistant). Patient started on Vancomycin and Meropenem but after 3 days as per ID recommendations, Antibiotics changed to Unasyn 3 g IV every 6 hours and Ciprofloxacin 400 mg IV every 12 hours. - Status post expiratory laparotomy and suture repair of duodenal ulcer with Fabrizio patch on 07/09 and 07/16--- no recommendation for further surgical intervention at the moment - No octreotide drip but noticed decreasing continuous drainage from WILLEM - IV Protonix 40mg BID - Status post daptomycin and meropenem, ID on board, body fluid culture 2 from the OR positive for vancomycin-resistant enterococcus -Respiratory culture from 07/18 positive for vancomycin-resistant enterococcus -Respiratory culture from 07/30 positive for 1. Moderate growth of: ESCHERICHIA COLI 2. Light growth of: BETA STREP GROUP B -Respiratory culture from 07/30 positive for Scant growth of 1. ENTEROBACTER AEROGENES 2. Light growth of: STAPH AUREUS, likely colonization #USMAN - Resolved - Continue to montior UOP, monitor BUN increase #Uncontrolled DM, secondary to Sepsis, pressors and octreotide - Continue Levemir 20 units twice a day - Novolog SS every 4 hours - Target Blood sugar 140 -180 - Continue following endocrine recommendation - DVT prophylaxis ALPS and SC heparin - Diet Continue on J tube feeding, rate 75 ml/h - Code Status Full Code Consultation ID, surgery, cardiology, nephrology, endocrinology IV access PICC line right arm Problem List: 1. Leukocytosis 2. Duodenal ulcer with perforation Pain Ratin Tomorrow's Labs & Rationales: CBC for leukocytosis ICU bundle for electrolytes Plan DVT/Prophylaxis: mechanical, pharmacological Cipriano Sadler MD,[facility] 08/10/17 1632: Subjective HPI/CRCU Issues: Hypoxic respiratory failure on extubation trials Perforated duodenal ulcer status post duodenal repair and enteric leak. Heart failure with reduced ejection fraction status post AICD. 24 Hour Events: Patient examined today, sedated, intubated, was lying in bed comfortably in no acute distress. No fever ovenighht, no respiraotry failure, no other events. Objective Vital Signs & I&O Last 8 Hrs of Vitals and I&O: T:no fever, max 98.8 Paced, ME 68 - 75, BP 93/51 - 165/77 Vent: AC, 10/500/45/5 O2 sat: >94% Intake: 3273 Output:1915 Intake & Output 08/10 1600 Intake Total 1715 Output Total 1245 Balance 470 Intake, IV 250 Intake, Other 760 Intake, Tube 540 Feeding Intake, Tube 165 Irrigant Output, 770 Drainage Output, 75 Gastric Drainage Output, Urine 400
[2017-08-10 08:00] VITALS: BP 120/70
--- NOTE | 2017-08-10 09:30 | PN- CRCU ---
Subjective HPI/Critical Care Issues: More lethargic and worse today More hypoxic Less responsive and off sedation Objective Current Medications: Current Medications Sig/Buck Start time Last Medication Dose Route Stop Time Status Admin Acetaminophen 1,000 MG Q6P PRN 07/16 0530 AC 07/20 N/A 1 UNIT IV 0659 Albuterol Sulfate 3 ML EVERY 4 HRS/AWAKE 07/27 0800 AC 08/10 INH 0840 Budesonide/ 2 PUF BID 07/26 1056 AC 08/10 Formoterol Fumarate INH 0841 Carvedilol 3.125 MG BID 07/28 1000 AC 08/09 PO 2200 Fentanyl Citrate 25 MCG Q4P PRN 08/05 2130 AC 08/07 IV 0406 Furosemide 40 MG ONCE ONE 08/09 1215 DC 08/09 IV 08/09 1216 1311 Glycerin 2 SPRAY Q2P PRN 08/10 0445 AC PO Heparin Sodium 5,000 UNIT Q8 08/05 1400 AC 08/10 (Porcine) SC 0500 Hydrocortisone 25 MG Q12 08/04 1000 AC 08/09 Sodium Succinate IV 2201 Insulin Aspart 0 Q4 07/25 1000 AC 08/10 SC 0513 Insulin Detemir 20 UNITS BID 07/30 1000 AC 08/09 SC 2159 Magnesium Sulfate 1 GM ONCE ONE 08/10 0445 DC 08/10 Dextrose/Water 100 ML IV 08/10 0844 0455 Meropenem 1 GM IQ8 08/08 1600 AC 08/10 IV 0755 Octreotide Acetate 500 MCG Q20H 07/15 1400 AC 08/09 Dextrose/Water 500 ML IV 1600 Pantoprazole Sodium 40 MG BID 07/10 1016 AC 08/09 IV 2159 Potassium Chloride 20 MEQ BID 08/10 2200 AC PO Potassium Chloride 60 MEQ ONCE ONE 08/10 0445 DC 08/10 PO 08/10 0446 0455 Vancomycin HCl 1,250 MG Q12H 08/08 1600 AC 08/10 Dextrose/Water 250 ML IV 0341 Vital Signs & I&O Last 24 Hrs of Vitals and I&O: Vital Signs Date Time Temp Pulse Resp B/P B/P Pulse O2 O2 Flow FiO2 Mean Ox Delivery Rate 08/10 0618 45 08/10 0400 97 Ventilator 45% 08/10 0356 45 08/10 0156 45 08/10 0000 97 Ventilator 45% 08/10 0000 97.8 68 16 146/90 97 Ventilator 45% 08/09 2253 45 08/09 2200 69 174/82 08/09 2000 96 Ventilator 45% 08/09 1944 45 08/09 1640 45 08/09 1600 94 Ventilator 45% 08/09 1600 97.6 70 21 142/72 94 Ventilator 45% 08/09 1429 45 08/09 1200 94 Ventilator 45% 08/09 1140 45 08/09 1000 95 Ventilator 45% 08/09 0944 97.6 75 20 168/75 Intake & Output 08/10 1600 08/10 0800 08/10 0000 Intake Total 1324 851 Output Total 410 770 Balance 914 81 Intake, IV 582 196 Intake, Oral 0 0 Intake, Tube 542 515 Feeding Intake, Tube 200 140 Irrigant Number 0 0 Bowel Movements Output, 20 20 Drainage Output, 0 50 Gastric Drainage Output, Urine 390 700 Laboratory Tests 08/10 08/10 0435 0347 Blood Gas pH (7.35 - 7.45 PH) 7.53 H pCO2 (35 - 45 TORR) 33 L pO2 (80 - 100 TORR) 105 H HCO3 (21 - 28 MEQ/L) 27 ABG O2 Sat (Measured) (>96.0 %) 97.0 P-50 (Temp Corrected) Y Carboxyhemoglobin (1.5 - 5.0 %) 0.3 L O2 Concentration % 45% Temperature (97.0 - 100.0 FARH) 97.8 Respiration Rate (BPM) 10 O2 Delivery Method ESPRIT Vent Mode AC Expiratory Pressure (CMH2O/P) 5 Tidal Volume (CC) 500 Chemistry Sodium (137 - 145 mmol/L) 139 Potassium (3.5 - 5.1 mmol/L) 3.4 L Chloride (98 - 107 mmol/L) 99 Carbon Dioxide (22 - 30 mmol/L) 29 Anion Gap (5 - 16) 11 BUN (9 - 20 mg/dL) 32 H Creatinine (0.7 - 1.2 mg/dL) 0.8 Estimated GFR (>60 ml/min) > 60 Glucose (65 - 99 mg/dL) 158 H Calcium (8.4 - 10.2 mg/dL) 7.7 L Phosphorus (2.5 - 4.5 mg/dL) 3.6 Magnesium (1.6 - 2.3 mg/dL) 1.8 Total Bilirubin (0.2 - 1.3 mg/dL) 0.5 AST (17 - 59 U/L) 74 H ALT (21 - 72 U/L) 85 H Albumin (3.5 - 5.0 g/dL) 2.2 L Hematology CBC w Diff MAN DIFF ORDERED WBC (4.8 - 10.8 /CUMM) 11.0 H RBC (4.70 - 6.10 /CUMM) 3.11 L Hgb (14.0 - 18.0 G/DL) 9.1 L Hct (42 - 52 %) 27.5 L MCV (80.0 - 94.0 FL) 88.4 MCH (27.0 - 31.0 PG) 29.1 RDW (11.5 - 14.5 %) 20.6 H Plt Count (130 - 400 /CUMM) 213 MPV (7.4 - 10.4 FL) 8.1 Gran % (42.2 - 75.2 %) 68.4 Lymphocytes % (20.5 - 51.1 %) 23.3 Monocytes % (1.7 - 9.3 %) 7.6 Eosinophils % (0 - 5 %) 0.4 Basophils % (0.0 - 2.0 %) 0.3 Absolute Granulocytes (1.4 - 6.5 /CUMM) 7.5 H Segmented Neutrophils (42.2 - 75.2 %) 57 Band Neutrophils (0.0 - 5.0 %) 10 H Absolute Lymphocytes (1.2 - 3.4 /CUMM) 2.6 Lymphocytes (20.5 - 51.1 %) 19 L Monocytes (1.7 - 9.3 %) 8 Absolute Monocytes (0.10 - 0.60 /CUMM) 0.8 H Absolute Eosinophils (0.0 - 0.7 /CUMM) 0 Absolute Basophils (0.0 - 0.2 /CUMM) 0 Metamyelocytes (0.0 - 1.0 %) 5 H Myelocytes (0 - 0 %) 1 H Platelet Estimate (ADEQUATE) ADEQUATE Polychromasia 1+ Anisocytosis 1+ Stomatocytes 1+ PUBS MCHC (33.0 - 37.0 G/DL) 32.9 L Miscellaneous Phlebotomy Draw Site LEFT RADIAL 08/09 08/09 08/08 1235 0416 1605 Blood Gas pH (7.35 - 7.45 PH) 7.54 H pCO2 (35 - 45 TORR) 32 L pO2 (80 - 100 TORR) 85 HCO3 (21 - 28 MEQ/L) 27 ABG O2 Sat (Measured) (>96.0 %) 96.0 Carboxyhemoglobin (1.5 - 5.0 %) 0.3 L O2 Concentration % 45% Respiration Rate (BPM) 10 O2 Delivery Method VENT Vent Mode AC Expiratory Pressure (CMH2O/P) 5 Tidal Volume (CC) 500 Pressure Support (CMH2O/P) 0 Chemistry Sodium (137 - 145 mmol/L) 136 L Potassium (3.5 - 5.1 mmol/L) 3.9 Chloride (98 - 107 mmol/L) 97 L Carbon Dioxide (22 - 30 mmol/L) 26 Anion Gap (5 - 16) 12 BUN (9 - 20 mg/dL) 29 H Creatinine (0.7 - 1.2 mg/dL) 0.8 Estimated GFR (>60 ml/min) > 60 Glucose (65 - 99 mg/dL) 198 H Calcium (8.4 - 10.2 mg/dL) 7.9 L Phosphorus (2.5 - 4.5 mg/dL) 3.8 Magnesium (1.6 - 2.3 mg/dL) 1.9 Total Bilirubin (0.2 - 1.3 mg/dL) 0.5 AST (17 - 59 U/L) 52 ALT (21 - 72 U/L) 57 Albumin (3.5 - 5.0 g/dL) 2.3 L Hematology CBC w Diff MAN DIFF ORDERED WBC (4.8 - 10.8 /CUMM) 12.5 H RBC (4.70 - 6.10 /CUMM) 3.22 L Hgb (14.0 - 18.0 G/DL) 9.3 L Hct (42 - 52 %) 28.5 L MCV (80.0 - 94.0 FL) 88.6 MCH (27.0 - 31.0 PG) 29.0 RDW (11.5 - 14.5 %) 19.6 H Plt Count (130 - 400 /CUMM) 202 MPV (7.4 - 10.4 FL) 8.7 Gran % (42.2 - 75.2 %) 73.3 Lymphocytes % (20.5 - 51.1 %) 20.2 L Monocytes % (1.7 - 9.3 %) 6.2 Eosinophils % (0 - 5 %) 0.3 Basophils % (0.0 - 2.0 %) 0 Absolute Granulocytes (1.4 - 6.5 /CUMM) 9.2 H Segmented Neutrophils (42.2 - 75.2 %) 67 Band Neutrophils (0.0 - 5.0 %) 11 H Absolute Lymphocytes (1.2 - 3.4 /CUMM) 2.5 Lymphocytes (20.5 - 51.1 %) 14 L Monocytes (1.7 - 9.3 %) 4 Absolute Monocytes (0.10 - 0.60 /CUMM) 0.8 H Eosinophils (0 - 5.0 %) 1 Absolute Eosinophils (0.0 - 0.7 /CUMM) 0 Absolute Basophils (0.0 - 0.2 /CUMM) 0 Metamyelocytes (0.0 - 1.0 %) 3 H Platelet Estimate (ADEQUATE) ADEQUATE Polychromasia 1+ Hypochromic-Microcytic 1+ Poikilocytosis 1+ Basophilic Stippling SLIGHT Ovalocytes 1+ Stomatocytes FEW PUBS MCHC (33.0 - 37.0 G/DL) 32.7 L Miscellaneous Phlebotomy Draw Site LEFT RADIAL Other Body Source Fluid WBC (0 - 5 /CUMM) Fld Total RBCs Counted (%) 100 08/08 1605 Hematology % Normal PMNs (%) Other Body Source Fluid Glucose (mg/dL) < 20 Fluid Total Protein (g/dL) < 2.0 Fluid Albumin (g/dL) 1.0 Fluid LDH (U/L) > 65604 Fluid Amylase (U/L) < 30 Microbiology Date/Time Procedure - Status Source Growth 08/08 1605 Body Fluid Culture - RES BODY FLUID GRAM NEGATIVE RODS 08/08 160 Gram Stain - RES BODY FLUID Impression/Plan Impression/Plan Impression/Plan: Afebrile. Intubated Skin reveals no rash. HEENT negative. Neck supple with no adenopathy; Picc line in place Lungs decreased breath sounds bilaterally. Heart regular rhythm with no murmur. Abdomen is obese, distended, tender to palpation, Incision noted with a gabriela drain in the rt side, feeding tube on the left side Extremities superficial ulcerations over the anterior tibial aspects of both legs, with 1+ edema bilaterally. Neuro is without focality. 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 with prolonged antibiotic, previous history of peptic ulcer disease, diabetes, sinus rhythm upon admission was on Tikosyn, hyperlipidemia, apparently has never smoked before, previous history of lithotripsy, CABG, previous hip prosthesis infection status post removal of prosthesis in early 2017 now has the following issues * S/p Perf large DU ulcer s/p surg with unsuccessful du repair with peritonitis, persistant leak / now has sig gabriela drainage with ng suction and somatostatin / Patient now has significant fluid collection in the right paracolic gutter s/p pig tail on 08/08 with gram neg rods being drained. Now prob has necrotizing fascitis of the abd wall * S/p Severe shock septic on multiple pressors now off pressors, how ever clinically worse since yesterday due to sepsis in his abd and prob pneumonia * Resolving Hypoxic respiratory failure due to above with no clinical evidence suggestive of pneumonia. Sputum does have enterobacter and staph * Sig drainage from the gabriela biliary leak which is ongoing/ with fluid collection which is pyogenic * Significant ischemic heart disease with low ejection fraction high risk for fluid overload. Previous pafib in sinus now with a pacer and AICD. 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 * H/O LIAM was on cpap * On stress dose steroids now being weaned off RECOMMENDATION * COnt current care and antibiotics * Try to get the family for a meeting in am * Attempt trials daily but pt clearly getting worse * Keep potassium at 4 and mag above 2 * Intravenous pantoprazole * Heparin subcutaneous * Cardio follow up Pt critically ill tts 38 mins
--- NOTE | 2017-08-10 10:32 | PN- Infect Dx ---
Subjective Subjective: Afebrile on steroids. He offers no complaints. Objective Last 24 Hrs of Vital Signs/I&O Vital Signs Date Time Temp Pulse Resp B/P B/P Pulse O2 O2 Flow FiO2 Mean Ox Delivery Rate 08/10 800 98.8 69 20 120/70 98 Ventilator 45% 08/10 800 98 Ventilator 45% 08/10 0618 45 08/10 0400 97 Ventilator 45% 08/10 0356 45 08/10 0156 45 08/10 0000 97 Ventilator 45% 08/10 0000 97.8 68 16 146/90 97 Ventilator 45% 08/09 2253 45 08/09 2200 69 174/82 08/09 2000 96 Ventilator 45% 08/09 1944 45 08/09 1640 45 08/09 1600 94 Ventilator 45% 08/09 1600 97.6 70 21 142/72 94 Ventilator 45% 08/09 1429 45 08/09 1200 94 Ventilator 45% 08/09 1140 45 Intake & Output 08/10 1600 08/10 0800 08/10 0000 Intake Total 1324 851 Output Total 410 770 Balance 914 81 Intake, IV 582 196 Intake, Oral 0 0 Intake, Tube 542 515 Feeding Intake, Tube 200 140 Irrigant Number 0 0 Bowel Movements Output, 20 20 Drainage Output, 0 50 Gastric Drainage Output, Urine 390 700 Physical Exam Other Physical Findings: He is lethargic but responsive on the ventilator, in no acute distress Lungs are clear Heart regular rhythm with no murmur Abdomen is distended, nontender with positive bowel sounds; purulent appearing drainage continues to be expressed from the inferior aspect of the incision; left abdominal catheter in place with 50 mL output yesterday and 20 mL overnight ; WILLEM drains remain in place with perhaps decreased output reported, with none reported from WILLEM #1 and 170 mL reported from WILLEM #2 yesterday Extremities no cyanosis, clubbing or edema; PICC in the right upper extremity with no inflammation at the site Duvall catheter remains in place Results Last 24 Hours of Lab Results: Laboratory Tests 08/10 08/10 0435 0347 Blood Gas pH (7.35 - 7.45 PH) 7.53 H pCO2 (35 - 45 TORR) 33 L pO2 (80 - 100 TORR) 105 H HCO3 (21 - 28 MEQ/L) 27 ABG O2 Sat (Measured) (>96.0 %) 97.0 P-50 (Temp Corrected) Y Carboxyhemoglobin (1.5 - 5.0 %) 0.3 L O2 Concentration % 45% Temperature (97.0 - 100.0 FARH) 97.8 Respiration Rate (BPM) 10 O2 Delivery Method ESPRIT Vent Mode AC Expiratory Pressure (CMH2O/P) 5 Tidal Volume (CC) 500 Chemistry Sodium (137 - 145 mmol/L) 139 Potassium (3.5 - 5.1 mmol/L) 3.4 L Chloride (98 - 107 mmol/L) 99 Carbon Dioxide (22 - 30 mmol/L) 29 Anion Gap (5 - 16) 11 BUN (9 - 20 mg/dL) 32 H Creatinine (0.7 - 1.2 mg/dL) 0.8 Estimated GFR (>60 ml/min) > 60 Glucose (65 - 99 mg/dL) 158 H Calcium (8.4 - 10.2 mg/dL) 7.7 L Phosphorus (2.5 - 4.5 mg/dL) 3.6 Magnesium (1.6 - 2.3 mg/dL) 1.8 Total Bilirubin (0.2 - 1.3 mg/dL) 0.5 AST (17 - 59 U/L) 74 H ALT (21 - 72 U/L) 85 H Albumin (3.5 - 5.0 g/dL) 2.2 L Hematology CBC w Diff MAN DIFF ORDERED WBC (4.8 - 10.8 /CUMM) 11.0 H RBC (4.70 - 6.10 /CUMM) 3.11 L Hgb (14.0 - 18.0 G/DL) 9.1 L Hct (42 - 52 %) 27.5 L MCV (80.0 - 94.0 FL) 88.4 MCH (27.0 - 31.0 PG) 29.1 RDW (11.5 - 14.5 %) 20.6 H Plt Count (130 - 400 /CUMM) 213 MPV (7.4 - 10.4 FL) 8.1 Gran % (42.2 - 75.2 %) 68.4 Lymphocytes % (20.5 - 51.1 %) 23.3 Monocytes % (1.7 - 9.3 %) 7.6 Eosinophils % (0 - 5 %) 0.4 Basophils % (0.0 - 2.0 %) 0.3 Absolute Granulocytes (1.4 - 6.5 /CUMM) 7.5 H Segmented Neutrophils (42.2 - 75.2 %) 57 Band Neutrophils (0.0 - 5.0 %) 10 H Absolute Lymphocytes (1.2 - 3.4 /CUMM) 2.6 Lymphocytes (20.5 - 51.1 %) 19 L Monocytes (1.7 - 9.3 %) 8 Absolute Monocytes (0.10 - 0.60 /CUMM) 0.8 H Absolute Eosinophils (0.0 - 0.7 /CUMM) 0 Absolute Basophils (0.0 - 0.2 /CUMM) 0 Metamyelocytes (0.0 - 1.0 %) 5 H Myelocytes (0 - 0 %) 1 H Platelet Estimate (ADEQUATE) ADEQUATE Polychromasia 1+ Anisocytosis 1+ Stomatocytes 1+ PUBS MCHC (33.0 - 37.0 G/DL) 32.9 L Miscellaneous Phlebotomy Draw Site LEFT RADIAL 08/09 1235 Blood Gas pH (7.35 - 7.45 PH) 7.54 H pCO2 (35 - 45 TORR) 32 L pO2 (80 - 100 TORR) 85 HCO3 (21 - 28 MEQ/L) 27 ABG O2 Sat (Measured) (>96.0 %) 96.0 Carboxyhemoglobin (1.5 - 5.0 %) 0.3 L O2 Concentration % 45% Respiration Rate (BPM) 10 O2 Delivery Method VENT Vent Mode AC Expiratory Pressure (CMH2O/P) 5 Tidal Volume (CC) 500 Pressure Support (CMH2O/P) 0 Miscellaneous Phlebotomy Draw Site LEFT RADIAL Last 24 Hours of Les Results: Left abdominal fluid culture positive for Enterobacter, possibly CRE (carbopenem resistant), sensitive to Ciprofloxacin Sputum culture August 06 positive for Enterobacter sensitive to Ciprofloxacin and Meropenem and Staph aureus sensitive to Oxacillin Recent Imaging Studies: Chest x-ray August 10, personally reviewed, reveals bibasilar densities unchanged from previous films Assessment/Plan Impression: Overall status poor, with persistent lethargy, though temperatures remains normal (on steroids) and white blood cell count is only minimally elevated on Vancomycin and Meropenem status post drainage of a left abdominal abscess 2 days ago, with the culture growing Enterobacter, possibly CRE (carbopenem resistant). His sputum culture is growing Enterobacter and MSSA but, with his respiratory status and chest x-ray stable, feel that this represents colonization. It appears that the output from both WILLEM drains may be decreasing now 32 days status post surgery for the perforated duodenal ulcer and 25 days status post an unsuccessful duodenal repair for the persistent enteric leak. Suggestion: 1. Discontinue Vancomycin and Meropenem 2. Follow-up final cultures 3. Reevaluation of need for continuation of steroids 4. Begin Unasyn 3 g IV every 6 hours and Ciprofloxacin 400 mg IV every 12 hours pending above
--- NOTE | 2017-08-10 11:04 | PN- Diabetes ---
Assessment/Plan Assessment: 76-year-old male with Hx of CAD with low ejection fraction, atrial fibrillation, AICD, previous infection of hip with prolonged antibiotic, history of peptic ulcer disease, diabetes and renal stone, was admitted for perforation of duodenum now with septic shock in ICU. He was on 3 pressors, TPN, octreotide drip and bicarb drip. His BP remained low and stress dose of steroid was initiated despite his am cortisol was 24.8. Patient is still on octreotide drip. Patient was re-intubated on 07/26/2017. He has been off on TPN. Currently he is on tube feeding with Vital 75 mL per hour. Levemir was increased to 20 units twice a day and Novolog coverage every 4 hours was adjusted multiple times. The patient's most recent blood sugars were 166, 187, 132, 178, 175 and 227. Hydrocortisone was decreased to 25 mg iv every 12 hours. Plan: 1. continue the current hydrocortisone 25 mg iv every 12 hours; 2. continue the current insulin regimen for now; 3. monitor FSGs. 4. replete K; monitor electrolytes. will follow. Subjective Subjective: Patient remains intubated. Objective Last 24 Hrs of Vital Signs/I&O Vital Signs Date Time Temp Pulse Resp B/P B/P Pulse O2 O2 Flow FiO2 Mean Ox Delivery Rate 08/10 1011 72 120/59 08/10 08 98.8 69 20 120/70 98 Ventilator 45% 08/10 0800 98 Ventilator 45% 08/10 0618 45 08/10 0400 97 Ventilator 45% 08/10 0356 45 08/10 0156 45 08/10 0000 97 Ventilator 45% 08/10 0000 97.8 68 16 146/90 97 Ventilator 45% 08/09 2253 45 08/09 2200 69 174/82 08/09 2000 96 Ventilator 45% 08/09 1944 45 08/09 1640 45 08/09 1600 94 Ventilator 45% 08/09 1600 97.6 70 21 142/72 94 Ventilator 45% 08/09 1429 45 08/09 1200 94 Ventilator 45% 08/09 1140 45 Intake & Output 08/10 1600 08/10 0800 08/10 0000 Intake Total 1324 851 Output Total 410 770 Balance 914 81 Intake, IV 582 196 Intake, Oral 0 0 Intake, Tube 542 515 Feeding Intake, Tube 200 140 Irrigant Number 0 0 Bowel Movements Output, 20 20 Drainage Output, 0 50 Gastric Drainage Output, Urine 390 700 Findings Pertinent Lab/Les Results: Laboratory Tests 08/10 08/10 0435 0347 Blood Gas pH (7.35 - 7.45 PH) 7.53 H pCO2 (35 - 45 TORR) 33 L pO2 (80 - 100 TORR) 105 H HCO3 (21 - 28 MEQ/L) 27 ABG O2 Sat (Measured) (>96.0 %) 97.0 P-50 (Temp Corrected) Y Carboxyhemoglobin (1.5 - 5.0 %) 0.3 L O2 Concentration % 45% Temperature (97.0 - 100.0 FARH) 97.8 Respiration Rate (BPM) 10 O2 Delivery Method ESPRIT Vent Mode AC Expiratory Pressure (CMH2O/P) 5 Tidal Volume (CC) 500 Chemistry Sodium (137 - 145 mmol/L) 139 Potassium (3.5 - 5.1 mmol/L) 3.4 L Chloride (98 - 107 mmol/L) 99 Carbon Dioxide (22 - 30 mmol/L) 29 Anion Gap (5 - 16) 11 BUN (9 - 20 mg/dL) 32 H Creatinine (0.7 - 1.2 mg/dL) 0.8 Estimated GFR (>60 ml/min) > 60 Glucose (65 - 99 mg/dL) 158 H Calcium (8.4 - 10.2 mg/dL) 7.7 L Phosphorus (2.5 - 4.5 mg/dL) 3.6 Magnesium (1.6 - 2.3 mg/dL) 1.8 Total Bilirubin (0.2 - 1.3 mg/dL) 0.5 AST (17 - 59 U/L) 74 H ALT (21 - 72 U/L) 85 H Albumin (3.5 - 5.0 g/dL) 2.2 L Hematology CBC w Diff MAN DIFF ORDERED WBC (4.8 - 10.8 /CUMM) 11.0 H RBC (4.70 - 6.10 /CUMM) 3.11 L Hgb (14.0 - 18.0 G/DL) 9.1 L Hct (42 - 52 %) 27.5 L MCV (80.0 - 94.0 FL) 88.4 MCH (27.0 - 31.0 PG) 29.1 RDW (11.5 - 14.5 %) 20.6 H Plt Count (130 - 400 /CUMM) 213 MPV (7.4 - 10.4 FL) 8.1 Gran % (42.2 - 75.2 %) 68.4 Lymphocytes % (20.5 - 51.1 %) 23.3 Monocytes % (1.7 - 9.3 %) 7.6 Eosinophils % (0 - 5 %) 0.4 Basophils % (0.0 - 2.0 %) 0.3 Absolute Granulocytes (1.4 - 6.5 /CUMM) 7.5 H Segmented Neutrophils (42.2 - 75.2 %) 57 Band Neutrophils (0.0 - 5.0 %) 10 H Absolute Lymphocytes (1.2 - 3.4 /CUMM) 2.6 Lymphocytes (20.5 - 51.1 %) 19 L Monocytes (1.7 - 9.3 %) 8 Absolute Monocytes (0.10 - 0.60 /CUMM) 0.8 H Absolute Eosinophils (0.0 - 0.7 /CUMM) 0 Absolute Basophils (0.0 - 0.2 /CUMM) 0 Metamyelocytes (0.0 - 1.0 %) 5 H Myelocytes (0 - 0 %) 1 H Platelet Estimate (ADEQUATE) ADEQUATE Polychromasia 1+ Anisocytosis 1+ Stomatocytes 1+ PUBS MCHC (33.0 - 37.0 G/DL) 32.9 L Miscellaneous Phlebotomy Draw Site LEFT RADIAL 08/09 1235 Blood Gas pH (7.35 - 7.45 PH) 7.54 H pCO2 (35 - 45 TORR) 32 L pO2 (80 - 100 TORR) 85 HCO3 (21 - 28 MEQ/L) 27 ABG O2 Sat (Measured) (>96.0 %) 96.0 Carboxyhemoglobin (1.5 - 5.0 %) 0.3 L O2 Concentration % 45% Respiration Rate (BPM) 10 O2 Delivery Method VENT Vent Mode AC Expiratory Pressure (CMH2O/P) 5 Tidal Volume (CC) 500 Pressure Support (CMH2O/P) 0 Miscellaneous Phlebotomy Draw Site LEFT RADIAL
--- NOTE | 2017-08-10 11:17 | PN- General Surgery ---
Surgical Brief Attending Note Brief Attending Note: Failed cpap trial yesterday. Drain output decreased and leaking around tube. I fixed it. There was an occusion in the drain. Continue supportive cares.
--- NOTE | 2017-08-10 12:37 | PN- Cardiology ---
Subjective Subjective: Remains intubated and less responsive. Properly functioning electronic pacemaker on monitoring. Objective Vital Signs and I&Os Vital Signs Date Time Temp Pulse Resp B/P B/P Pulse O2 O2 Flow FiO2 Mean Ox Delivery Rate 08/10 1011 72 120/59 08/10 0800 98.8 69 20 120/70 98 Ventilator 45% 08/10 0800 98 Ventilator 45% 08/10 0618 45 08/10 0400 97 Ventilator 45% 08/10 0356 45 08/10 0156 45 08/10 0000 97 Ventilator 45% 08/10 0000 97.8 68 16 146/90 97 Ventilator 45% 08/09 2253 45 08/09 2200 69 174/82 08/09 2000 96 Ventilator 45% 08/09 1944 45 08/09 1640 45 08/09 1600 94 Ventilator 45% 08/09 1600 97.6 70 21 142/72 94 Ventilator 45% 08/09 1429 45 Intake & Output 08/10 1600 08/10 0800 12 0000 08/09 1600 08/09 0800 08/09 0000 Intake Total 1324 851 413 606 4309 Output Total 410 770 691 925 3714 Balance 914 81 113 291 -40 Intake, IV 582 196 275 283 450 Intake, Oral 0 0 Intake, Tube 542 515 473 548 600 Feeding Intake, Tube 200 140 50 80 140 Irrigant Number 0 0 Bowel Movements Output, 20 20 90 110 250 Drainage Output, 0 50 Gastric Drainage Output, Other 80 Output, Urine 390 700 595 510 900 Physical Exam: Intubated elderly male with morbid obesity. Vital signs: See above. Neck: No JVD no bruits. Lungs: scattered rhonchi bilaterally. Heart: S1, S2 (regular) with soft systolic murmur. Abdomen: Distended, nontender to palpation, positive bowel sounds, incision with purulent appearing drainage from the inferior aspect of wound w/o change. Extremities no cyanosis, clubbing or edema. Current Medications: Current Medications Sig/Buck Start time Last Medication Dose Route Stop Time Status Admin Acetaminophen 1,000 MG Q6P PRN 07/16 0530 AC 07/20 N/A 1 UNIT IV 0659 Albuterol Sulfate 3 ML EVERY 4 HRS/AWAKE 07/27 0800 AC 08/10 INH 1200 Budesonide/ 2 PUF BID 07/26 1056 AC 08/10 Formoterol Fumarate INH 0841 Carvedilol 3.125 MG BID 07/28 1000 AC 08/10 PO 1011 Fentanyl Citrate 25 MCG Q4P PRN 08/05 2130 AC 08/07 IV 0406 Glycerin 2 SPRAY Q2P PRN 08/10 0445 AC PO Heparin Sodium 5,000 UNIT Q8 08/05 1400 AC 08/10 (Porcine) SC 0500 Hydrocortisone 25 MG Q12 08/04 1000 AC 08/10 Sodium Succinate IV 1012 Insulin Aspart 0 Q4 07/25 1000 AC 08/10 SC 1011 Insulin Detemir 20 UNITS BID 07/30 1000 AC 08/10 SC 1011 Magnesium Sulfate 1 GM ONCE ONE 08/10 0445 DC 08/10 Dextrose/Water 100 ML IV 08/10 0844 0455 Meropenem 1 GM IQ8 08/08 1600 AC 08/10 IV 0755 Octreotide Acetate 500 MCG Q20H 07/15 1400 AC 08/09 Dextrose/Water 500 ML IV 1600 Pantoprazole Sodium 40 MG BID 07/10 1016 AC 08/10 IV 1011 Potassium Chloride 20 MEQ BID 08/10 2200 AC PO Potassium Chloride 60 MEQ ONCE ONE 08/10 0445 DC 08/10 PO 08/10 0446 0455 Vancomycin HCl 1,250 MG Q12H 08/08 1600 AC 08/10 Dextrose/Water 250 ML IV 0341 Results Last 48 Hrs of Labs/Mics: Laboratory Tests 08/10/17 0435: pH 7.53 H, pCO2 33 L, pO2 105 H, HCO3 27, ABG O2 Sat (Measured) 97.0, P-50 ( Temp Corrected) Y, Carboxyhemoglobin 0.3 L, O2 Concentration % 45%, Temperature 97.8, Respiration Rate 10, O2 Delivery Method ESPRIT, Vent Mode AC, Expiratory Pressure 5, Tidal Volume 500, Phlebotomy Draw Site LEFT RADIAL 08/10/17 034: Anion Gap 11, Estimated GFR > 60, Glucose 158 H, Calcium 7.7 L, Phosphorus 3.6 , Magnesium 1.8, Total Bilirubin 0.5, AST 74 H, ALT 85 H, Albumin 2.2 L, CBC w Diff MAN DIFF ORDERED, RBC 3.11 L, MCV 88.4, MCH 29.1, RDW 20.6 H, MPV 8.1, Gran % 68.4, Lymphocytes % 23.3, Monocytes % 7.6, Eosinophils % 0.4, Basophils % 0.3, Absolute Granulocytes 7.5 H, Segmented Neutrophils 57, Band Neutrophils 10 H, Absolute Lymphocytes 2.6, Lymphocytes 19 L, Monocytes 8, Absolute Monocytes 0.8 H, Absolute Eosinophils 0, Absolute Basophils 0, Metamyelocytes 5 H, Myelocytes 1 H, Platelet Estimate ADEQUATE, Polychromasia 1+, Anisocytosis 1+, Stomatocytes 1+, PUBS MCHC 32.9 L 08/09/17 1235: pH 7.54 H, pCO2 32 L, pO2 85, HCO3 27, ABG O2 Sat (Measured) 96.0, Carboxyhemoglobin 0.3 L, O2 Concentration % 45%, Respiration Rate 10, O2 Delivery Method VENT, Vent Mode AC, Expiratory Pressure 5, Tidal Volume 500, Pressure Support 0, Phlebotomy Draw Site LEFT RADIAL 08/09/17 0415: Anion Gap 12, Estimated GFR > 60, Glucose 198 H, Calcium 7.9 L, Phosphorus 3.8 , Magnesium 1.9, Total Bilirubin 0.5, AST 52, ALT 57, Albumin 2.3 L, CBC w Diff MAN DIFF ORDERED, RBC 3.22 L, MCV 88.6, MCH 29.0, RDW 19.6 H, MPV 8.7, Gran % 73.3, Lymphocytes % 20.2 L, Monocytes % 6.2, Eosinophils % 0.3, Basophils % 0, Absolute Granulocytes 9.2 H, Segmented Neutrophils 67, Band Neutrophils 11 H, Absolute Lymphocytes 2.5, Lymphocytes 14 L, Monocytes 4, Absolute Monocytes 0.8 H, Eosinophils 1, Absolute Eosinophils 0, Absolute Basophils 0, Metamyelocytes 3 H, Platelet Estimate ADEQUATE, Polychromasia 1+, Hypochromic-Microcytic 1+, Poikilocytosis 1+, Basophilic Stippling SLIGHT, Ovalocytes 1+, Stomatocytes FEW, PUBS MCHC 32.7 L, Fld Total RBCs Counted 100 08/08/17 1605: Fluid WBC , Fld Total RBCs Counted 08/08/17 1605: % Normal PMNs , Fluid Glucose < 20, Fluid Total Protein < 2.0, Fluid Albumin 1.0, Fluid LDH > 35178, Fluid Amylase < 30 Recent Imaging Studies: CXR (08/10/2017): Endotracheal tube catheter 4.57 is left kika. Persistent bibasilar airspace disease and pleural effusion, greater on left than right, similar prior chest x- ray August 09, 2017. Assessment/Plan Assessment/Plan [id number] w/ hx of morbid obesity, LIAM on CPAP, COPD, HTN, HLD, DM, CAD/ICM (s/ p IMI in 1998, CABG 4 w/ WHITE to LAD and individual SVGs to Dx, OM, PDA & MAZE) , and recurrent PAF who presented in an unkempt state via ambulance w/ UTI & subsequently had a perforation of a duodenal ulcer for which he underwent surgery (Fabrizio patch) on 07/09/2017 with worsening clinical status requiring return to the OR on 07/16/2017 for exploratory laparotomy and suture repair duodenal ulcer with Fabrizio patch. More lethargic s/p drainage of a left abdominal abscess on 08/08/2017 w/ pus aspiration & catheter in place. Hemodynamically stable with properly functioning electronic pacemaker nearing end-of-life (EOL), but without immediate concern for pacemaker failure. Continued output from WILLEM drains and persistent purulent drainage from his incision, that is felt by surgery to represent necrotic fascia. Recommendations: * If further significant ventricular tachycardia can place on amiodarone. * Pacemaker functioning properly and should for months, even though near EOL. * Maintain potassium between 4.0-4.5 mEq per liter. * Maintain magnesium and maintain at or above 2.0 mEq per liter. * Continue to follow-up on infectious disease, critical care, endocrine, renal and surgical recommendations. * Continue DVT prophylaxis. Continue telemetry? Not applicable (In ICU.)
[2017-08-10 16:00] VITALS: BP 110/62
[2017-08-11] VITALS: BP 140/70
[2017-08-11 05:34] LABS: ABSOLUTE BASOPHIL COUNT 0 /CUMM (0.0-0.2); ABSOLUTE EOSINOPHIL COUNT 0 /CUMM (0.0-0.7); ABSOLUTE GRANULOCYTE CT 6.7 /CUMM (1.4-6.5); ABSOLUTE LYMPH COUNT 2.9 /CUMM (1.2-3.4); ABSOLUTE MONOCYTE COUNT 0.9 /CUMM (0.10-0.60); BASOPHIL % 0.3 % (0.0-2.0); EOSINOPHIL % 0.1 % (0-5); GRANULOCYTE % 63.8 % (42.2-75.2); HEMATOCRIT 27.2 % (42-52); MEAN CORPUSCULAR HGB 28.5 PG (27.0-31.0); MEAN CORPUSCULAR HGB CONC 31.9 G/DL (33.0-37.0); MEAN CORPUSCULAR VOLUME 89.4 FL (80.0-94.0); MEAN PLATELET VOLUME 8.5 FL (7.4-10.4); PLATELET COUNT 210 /CUMM (130-400); RBC DISTRIBUTION WIDTH 20.3 % (11.5-14.5); RED BLOOD CELL CT 3.04 /CUMM (4.70-6.10); WHITE BLOOD CELL COUNT 10.6 /CUMM (4.8-10.8)
[2017-08-11 08:00] VITALS: BP 120/68
--- NOTE | 2017-08-11 08:24 | RADIOLOGY REPORT ---
EXAMINATION: XR PORTABLE CHEST CLINICAL INFORMATION: Endotracheal tube placement. COMPARISON: 08/10/2017 TECHNIQUE: Portable frontal view of the chest was obtained. FINDINGS: Endotracheal tube is located approximately 3 cm above the kika. The right arm peripherally inserted catheter tip is difficult to visualize; it appears to terminate in the [id number] SVC. Enteric tube extends below the diaphragm and into the stomach. There is a left pectoral region cardiac pacemaker/AICD with transvenous leads extending to level the right atrium and right ventricle. Sternotomy wires are intact. No pulmonary edema. Persistent bibasilar opacities, likely combination of small pleural effusions with compressive atelectasis, similar compared to 08/10/2017. Cardiac silhouette is mildly enlarged, unchanged. No acute skeletal findings. IMPRESSION: 1. Tubes/lines appear to be in stable position compared to 08/10/2017. 2. Persistent bibasilar opacities, likely a combination of small pleural effusions with compressive atelectasis.
--- NOTE | 2017-08-11 08:40 | PN- Diabetes ---
Assessment/Plan Assessment: 76-year-old male with Hx of CAD with low ejection fraction, atrial fibrillation, AICD, previous infection of hip with prolonged antibiotic, history of peptic ulcer disease, diabetes and renal stone, was admitted for perforation of duodenum now with septic shock in ICU. He was on 3 pressors, TPN, octreotide drip and bicarb drip. His BP remained low and stress dose of steroid was initiated despite his am cortisol was 24.8. Patient is still on octreotide drip. Patient was re-intubated on 07/26/2017. He has been off on TPN. Currently he is on tube feeding with Vital 75 mL per hour. Levemir was increased to 20 units twice a day and Novolog coverage every 4 hours was adjusted multiple times. The patient's most recent blood sugars were 168, 165, 164 and 206. Hydrocortisone was decreased to 25 mg iv every 12 hours. Plan: continue the current hydrocortisone 25 mg iv every 12 hours; continue the current insulin regimen for now; monitor FSGs. will follow. Subjective Subjective: patient remains intubated. Objective Last 24 Hrs of Vital Signs/I&O Vital Signs Date Time Temp Pulse Resp B/P B/P Pulse O2 O2 Flow FiO2 Mean Ox Delivery Rate 08/11 0615 40 08/11 0400 97 Ventilator 40% 08/11 0244 40 08/11 0000 95 Ventilator 40% 08/11 0000 98.1 68 26 140/70 95 Ventilator 40% 08/10 2222 40 08/10 2125 69 116/91 08/10 2000 96 Ventilator 40% 08/10 1952 40 08/10 1632 40 08/10 1600 97.8 69 20 110/62 98 Ventilator 40% 08/10 1600 97 Ventilator 40% 08/10 1430 40 08/10 1200 40 08/10 1200 94 Ventilator 40% 08/10 1011 72 120/59 Intake & Output 08/11 1600 08/11 0800 08/11 0000 Intake Total 1408 1218 Output Total 630 575 Balance 778 643 Intake, IV 683 522 Intake, Oral 0 0 Intake, Tube 585 526 Feeding Intake, Tube 140 170 Irrigant Number 2 1 Bowel Movements Output, 25 20 Drainage Output, 25 25 Gastric Drainage Output, Urine 580 530 Findings Pertinent Lab/Les Results: Laboratory Tests 08/11 08/11 08/10 0403 0014 1644 Chemistry Sodium (137 - 145 mmol/L) 135 L 137 Potassium (3.5 - 5.1 mmol/L) 4.0 4.1 Chloride (98 - 107 mmol/L) 99 99 Carbon Dioxide (22 - 30 mmol/L) 27 28 Anion Gap (5 - 16) 8 10 BUN (9 - 20 mg/dL) 31 H 31 H Creatinine (0.7 - 1.2 mg/dL) 0.7 0.7 Estimated GFR (>60 ml/min) > 60 > 60 BUN/Creatinine Ratio (7 - 25 %) 44.3 H Glucose (65 - 99 mg/dL) 164 H Calcium (8.4 - 10.2 mg/dL) 7.7 L Phosphorus (2.5 - 4.5 mg/dL) 3.4 Magnesium (1.6 - 2.3 mg/dL) 1.9 Total Bilirubin (0.2 - 1.3 mg/dL) 0.4 AST (17 - 59 U/L) 64 H ALT (21 - 72 U/L) 87 H Troponin I (<0.11 ng/ml) < 0.01 Albumin (3.5 - 5.0 g/dL) 2.1 L Hematology CBC w Diff NO MAN DIFF REQ WBC (4.8 - 10.8 /CUMM) 10.6 RBC (4.70 - 6.10 /CUMM) 3.04 L Hgb (14.0 - 18.0 G/DL) 8.7 L Hct (42 - 52 %) 27.2 L MCV (80.0 - 94.0 FL) 89.4 MCH (27.0 - 31.0 PG) 28.5 RDW (11.5 - 14.5 %) 20.3 H Plt Count (130 - 400 /CUMM) 210 MPV (7.4 - 10.4 FL) 8.5 Gran % (42.2 - 75.2 %) 63.8 Lymphocytes % (20.5 - 51.1 %) 27.5 Monocytes % (1.7 - 9.3 %) 8.3 Eosinophils % (0 - 5 %) 0.1 Basophils % (0.0 - 2.0 %) 0.3 Absolute Granulocytes (1.4 - 6.5 /CUMM) 6.7 H Absolute Lymphocytes (1.2 - 3.4 /CUMM) 2.9 Absolute Monocytes (0.10 - 0.60 /CUMM) 0.9 H Absolute Eosinophils (0.0 - 0.7 /CUMM) 0 Absolute Basophils (0.0 - 0.2 /CUMM) 0 PUBS MCHC (33.0 - 37.0 G/DL) 31.9 L
--- NOTE | 2017-08-11 09:27 | PN- Resident CRCU ---
Subjective HPI/CRCU Issues: Hypoxic respiratory failure on extubation trials Perforated duodenal ulcer status post duodenal repair and enteric leak. Heart failure with reduced ejection fraction status post AICD. Abdominal abscess 3 days ago culture growing Enterobacter, possibly CRE ( carbopenem resistant) positive sputum culture for Enterobacter and MSSA 24 Hour Events: Patient remains intubated. MAXIMUM TEMPERATURE of 98.8 overnight. Paced rhythm 60s to 70s. Stable BP. Will re-aatemp extubation trial today. Objective Vital Signs & I&O Last 8 Hrs of Vitals and I&O: Vital Signs Date Time Temp Pulse Resp B/P B/P Pulse O2 O2 Flow FiO2 Mean Ox Delivery Rate 08/11 1404 40 08/11 1200 98 Ventilator 40% 08/11 1146 40 08/11 0902 113 123/73 08/11 0850 40 Intake & Output 08/11 1600 Intake Total 1449 Output Total 790 Balance 659 Intake, IV 324 Intake, Tube 595 Feeding Intake, Tube 530 Irrigant Number 1 Bowel Movements Output, 390 Drainage Output, 0 Gastric Drainage Output, Other 0 Output, Urine 400 Intake & Output 08/11 1600 Intake Total 1449 Output Total 790 Balance 659 Intake, IV 324 Intake, Tube 595 Feeding Intake, Tube 530 Irrigant Number 1 Bowel Movements Output, 390 Drainage Output, 0 Gastric Drainage Output, Other 0 Output, Urine 400 Exam General Appearance: no apparent distress, sedated, intubated, lethargic Head: atraumatic Neck: supple Respiratory: normal breath sounds, chest non-tender, no respiratory distress Cardiovascular: regular rate/rhythm Gastrointestinal: vertical surgical wound with drains in place, Distended and mildly tender Extremities: 1+ EDEMA Weaning Parameters NIF: 32 Minute Volume: 16.2 Resp rate: 26 Vt: 626 Heart Rate: 75 Weaning Schedule Start Time: 918 Minute Volume: 15.3 Resp Rate: 28 Vt: 548 Heart Rate: 74 End Time: 1138 Minute Volume: 12.5 Resp Rate: 54 Vt: 645 Heart Rate: 69 Current Medications: Current Medications Sig/Buck Start time Last Medication Dose Route Stop Time Status Admin Acetaminophen 1,000 MG Q6P PRN 07/16 0530 AC 07/20 N/A 1 UNIT IV 0659 Albuterol Sulfate 3 ML EVERY 4 HRS/AWAKE 07/27 0800 AC 08/11 INH 1615 Ampicillin Sodium/ 3,000 MG Q6H 08/10 2300 AC 08/11 Sulbactam Sodium IV 1251 Sodium Chloride 100 ML Ampicillin Sodium/ 3,000 MG Q6 08/10 1415 DC 08/10 Sulbactam Sodium IV 1659 Sodium Chloride 100 ML Budesonide/ 2 PUF BID 07/26 1056 AC 08/11 Formoterol Fumarate INH 1157 Carvedilol 3.125 MG BID 07/28 1000 AC 08/11 PO 0902 Ciprofloxacin 400 MG Q12H 08/11 0500 AC 08/11 Dextrose/Water 200 ML IV 0400 Ciprofloxacin 400 MG Q12 08/10 1415 DC 08/10 Dextrose/Water 200 ML IV 1659 Docusate Sodium 100 MG DAILY NEEDED PRN 08/11 0530 DC PO Fentanyl Citrate 25 MCG Q4P PRN 08/05 2130 AC 08/07 IV 0406 Glycerin 2 SPRAY Q2P PRN 08/10 0445 AC 08/10 PO 2124 Heparin Sodium 5,000 UNIT Q8 08/05 1400 AC 08/11 (Porcine) SC 1251 Hydrocortisone 25 MG Q12 08/04 1000 AC 08/11 Sodium Succinate IV 0902 Insulin Aspart 0 Q4 07/25 1000 AC 08/11 SC 1519 Insulin Detemir 20 UNITS BID 07/30 1000 AC 08/11 SC 1038 Octreotide Acetate 500 MCG Q20H 07/15 1400 AC 08/11 Dextrose/Water 500 ML IV 0507 Pantoprazole Sodium 40 MG BID 07/10 1016 AC 08/11 IV 0902 Polyethylene Glycol 17 GM DAILY PRN 08/11 0530 DC PO Potassium Chloride 20 MEQ BID 08/10 2200 AC 08/11 PO 0901 Senna 187 MG DAILY NEEDED PRN 08/11 0530 CAN PO Impression/Plan Impression/Problem List Impression: 76 year old gentleman PAF on Tikosyn, not on AC, 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 extubated, continues to be on tube feeds. #Endotracheal intubation - ABG PH 7.53/pC02 33/ P02 105 and HCO3 27 from yesterday - Despite the fact respiratory rate is 10, patient used to override the ventilator. FIo2 40%, slightly improved from yesterday -Chest x-ray and ABG daily -Patient will have extubation trials for possible extubation #Septic shock - 2/2 peritonitis from perforated duodenal ulcer - Off Levophed - Started Vancomycin and Meropenem initally as per ID, now culture growing Enterobacter, possibly CRE (carbopenem resistant). - Antibiotics changed to Unasyn 3 g IV every 6 hours and Ciprofloxacin 400 mg IV every 12 hours - Continue Hydrocortisone 50 mg Q12 #V. tach - F/u cardio recs - Continue Carvedilol 3.125 twice a day with holding parameters #Hx of PAF on Tikosyn - Curently in NSR, and rate controlled - Continue to hold tikosyn # Perforated duodenal ulcer s/p repair -CT abdomen and pelvis with IV contrast was obtained for leukocytosis that revealed loculated fluid collections along the right paracolic gutter and left abdomen -Surgical evaluation on board -Status post Successful ultrasound-guided placement of 12 Lao pigtail catheter into left abdominal abscess cavity on 08/08/17 -Body fluid culture grew heavy growth of gram-negative rods, culture growing Enterobacter, possibly CRE (carbopenem resistant). Patient started on Vancomycin and Meropenem but after 3 days as per ID recommendations, Antibiotics changed to Unasyn 3 g IV every 6 hours and Ciprofloxacin 400 mg IV every 12 hours day 2. - Status post expiratory laparotomy and suture repair of duodenal ulcer with Fabrizio patch on 07/09 and 07/16--- no recommendation for further surgical intervention at the moment - No octreotide drip but noticed decreasing continuous drainage from WILLEM - IV Protonix 40mg BID - Status post daptomycin and meropenem, ID on board, body fluid culture 2 from the OR positive for vancomycin-resistant enterococcus -Respiratory culture from 07/18 positive for vancomycin-resistant enterococcus -Respiratory culture from 07/30 positive for 1. Moderate growth of: ESCHERICHIA COLI 2. Light growth of: BETA STREP GROUP B -Respiratory culture from 07/30 positive for Scant growth of 1. ENTEROBACTER AEROGENES 2. Light growth of: STAPH AUREUS, likely colonization #USMAN - Resolved - Continue to montior UOP, monitor BUN increase #Uncontrolled DM, secondary to Sepsis, pressors and octreotide - Continue Levemir 20 units twice a day - Novolog SS every 4 hours - Target Blood sugar 140 -180 - Continue following endocrine recommendation - DVT prophylaxis ALPS and SC heparin - Diet Continue on J tube feeding, rate 75 ml/h - Code Status Full Code Consultation ID, surgery, cardiology, nephrology, endocrinology IV access PICC line right arm Problem List: 1. Duodenal ulcer with perforation Pain Ratin Tomorrow's Labs & Rationales: CBC for leukocytosis ICU bundle for electrolytes Plan DVT/Prophylaxis: mechanical, pharmacological
--- NOTE | 2017-08-11 09:41 | PN- Infect Dx ---
Subjective Subjective: Afebrile on steroids. He does report abdominal discomfort. Objective Last 24 Hrs of Vital Signs/I&O Vital Signs Date Time Temp Pulse Resp B/P B/P Pulse O2 O2 Flow FiO2 Mean Ox Delivery Rate 08/11 0902 113 123/73 08/11 0615 40 08/11 0400 97 Ventilator 40% 08/11 0244 40 08/11 0000 95 Ventilator 40% 08/11 0000 98.1 68 26 140/70 95 Ventilator 40% 08/10 2222 40 08/10 2125 69 116/91 08/10 2000 96 Ventilator 40% 08/10 1952 40 08/10 1632 40 08/10 1600 97.8 69 20 110/62 98 Ventilator 40% 08/10 1600 97 Ventilator 40% 08/10 1430 40 08/10 1200 40 08/10 1200 94 Ventilator 40% 08/10 1011 72 120/59 Intake & Output 08/11 1600 08/11 0800 08/11 0000 Intake Total 1408 1218 Output Total 630 575 Balance 778 643 Intake, IV 683 522 Intake, Oral 0 0 Intake, Tube 585 526 Feeding Intake, Tube 140 170 Irrigant Number 2 1 Bowel Movements Output, 25 20 Drainage Output, 25 25 Gastric Drainage Output, Urine 580 530 Physical Exam Other Physical Findings: He is lethargic, but responsive, on the ventilator Lungs are clear Heart regular rhythm with no murmur Abdomen is distended, tender on palpation, with positive bowel sounds; incision with purulent appearing drainage persisting from the inferior aspect; left abdominal catheter with 30 mL output yesterday and 25 mL overnight; WILLEM drains remain in place, with significant output from both after opening of the occluded WILLEM (#1 ) drain Extremities no cyanosis, clubbing or edema; PICC in the right upper extremity with no inflammation at the site Duvall catheter remains in place Results Last 24 Hours of Lab Results: Laboratory Tests 08/11 08/11 08/10 0403 0014 1644 Chemistry Sodium (137 - 145 mmol/L) 135 L 137 Potassium (3.5 - 5.1 mmol/L) 4.0 4.1 Chloride (98 - 107 mmol/L) 99 99 Carbon Dioxide (22 - 30 mmol/L) 27 28 Anion Gap (5 - 16) 8 10 BUN (9 - 20 mg/dL) 31 H 31 H Creatinine (0.7 - 1.2 mg/dL) 0.7 0.7 Estimated GFR (>60 ml/min) > 60 > 60 BUN/Creatinine Ratio (7 - 25 %) 44.3 H Glucose (65 - 99 mg/dL) 164 H Calcium (8.4 - 10.2 mg/dL) 7.7 L Phosphorus (2.5 - 4.5 mg/dL) 3.4 Magnesium (1.6 - 2.3 mg/dL) 1.9 Total Bilirubin (0.2 - 1.3 mg/dL) 0.4 AST (17 - 59 U/L) 64 H ALT (21 - 72 U/L) 87 H Troponin I (<0.11 ng/ml) < 0.01 Albumin (3.5 - 5.0 g/dL) 2.1 L Hematology CBC w Diff NO MAN DIFF REQ WBC (4.8 - 10.8 /CUMM) 10.6 RBC (4.70 - 6.10 /CUMM) 3.04 L Hgb (14.0 - 18.0 G/DL) 8.7 L Hct (42 - 52 %) 27.2 L MCV (80.0 - 94.0 FL) 89.4 MCH (27.0 - 31.0 PG) 28.5 RDW (11.5 - 14.5 %) 20.3 H Plt Count (130 - 400 /CUMM) 210 MPV (7.4 - 10.4 FL) 8.5 Gran % (42.2 - 75.2 %) 63.8 Lymphocytes % (20.5 - 51.1 %) 27.5 Monocytes % (1.7 - 9.3 %) 8.3 Eosinophils % (0 - 5 %) 0.1 Basophils % (0.0 - 2.0 %) 0.3 Absolute Granulocytes (1.4 - 6.5 /CUMM) 6.7 H Absolute Lymphocytes (1.2 - 3.4 /CUMM) 2.9 Absolute Monocytes (0.10 - 0.60 /CUMM) 0.9 H Absolute Eosinophils (0.0 - 0.7 /CUMM) 0 Absolute Basophils (0.0 - 0.2 /CUMM) 0 PUBS MCHC (33.0 - 37.0 G/DL) 31.9 L Last 24 Hours of Les Results: Left abdominal collection fluid culture positive for Enterobacter, with final sensitivities (for possible CRE) pending Blood cultures August 06 remain negative Recent Imaging Studies: Chest x-ray August 11, personally reviewed, reveals persistent bibasilar densities, right greater than left, with probable right pleural effusion Assessment/Plan Impression: Overall status poor, with persistent lethargy, though temperatures and white blood cell count remain normal (on steroids) now on Unasyn and Ciprofloxacin, status post drainage of a left abdominal abscess 3 days ago, with the culture growing Enterobacter, possibly CRE (carbopenem resistant). He continues to have some drainage from the catheter, but he will need to be reimaged once this drainage has decreased. He is now 33 days status post surgery for the perforated duodenal ulcer and 26 days status post an unsuccessful duodenal repair for the persistent enteric leak. His sputum culture was positive for Enterobacter and MSSA but, with his respiratory status and chest x-ray stable, feel that this represents colonization. Suggestion: 1. Follow-up final culture of the left abdominal fluid collection 2. Reevaluation of the need for continuation of steroids 3. Continue Unasyn and Ciprofloxacin pending above
--- NOTE | 2017-08-11 10:14 | PN- CRCU ---
Subjective HPI/Critical Care Issues: Afebrile on steroids. He does report abdominal discomfort. More lethargic fatigued Sleepy Objective Current Medications: Current Medications Sig/Buck Start time Last Medication Dose Route Stop Time Status Admin Acetaminophen 1,000 MG Q6P PRN 07/16 0530 AC 07/20 N/A 1 UNIT IV 0659 Albuterol Sulfate 3 ML EVERY 4 HRS/AWAKE 07/27 0800 AC 08/11 INH 0853 Ampicillin Sodium/ 3,000 MG Q6H 08/10 2300 AC 08/11 Sulbactam Sodium IV 0508 Sodium Chloride 100 ML Ampicillin Sodium/ 3,000 MG Q6 08/10 1415 DC 08/10 Sulbactam Sodium IV 1659 Sodium Chloride 100 ML Budesonide/ 2 PUF BID 07/26 1056 AC 08/11 Formoterol Fumarate INH 0903 Carvedilol 3.125 MG BID 07/28 1000 AC 08/11 PO 0902 Ciprofloxacin 400 MG Q12H 08/11 0500 AC 08/11 Dextrose/Water 200 ML IV 0400 Ciprofloxacin 400 MG Q12 08/10 1415 DC 08/10 Dextrose/Water 200 ML IV 1659 Docusate Sodium 100 MG DAILY NEEDED PRN 08/11 0530 DC PO Fentanyl Citrate 25 MCG Q4P PRN 08/05 2130 AC 08/07 IV 0406 Glycerin 2 SPRAY Q2P PRN 08/10 0445 AC 08/10 PO 2124 Heparin Sodium 5,000 UNIT Q8 08/05 1400 AC 08/11 (Porcine) SC 0509 Hydrocortisone 25 MG Q12 08/04 1000 AC 08/11 Sodium Succinate IV 0902 Insulin Aspart 0 Q4 07/25 1000 AC 08/11 SC 0508 Insulin Detemir 20 UNITS BID 07/30 1000 AC 08/10 SC 2124 Meropenem 1 GM IQ8 08/08 1600 DC 08/10 IV 0755 Octreotide Acetate 500 MCG Q20H 07/15 1400 AC 08/11 Dextrose/Water 500 ML IV 0507 Pantoprazole Sodium 40 MG BID 07/10 1016 AC 08/11 IV 0902 Polyethylene Glycol 17 GM DAILY PRN 08/11 0530 DC PO Potassium Chloride 20 MEQ BID 08/10 2200 AC 08/11 PO 0901 Senna 187 MG DAILY NEEDED PRN 08/11 0530 CAN PO Vancomycin HCl 1,250 MG Q12H 08/08 1600 DC 08/10 Dextrose/Water 250 ML IV 0341 Vital Signs & I&O Last 24 Hrs of Vitals and I&O: Vital Signs Date Time Temp Pulse Resp B/P B/P Pulse O2 O2 Flow FiO2 Mean Ox Delivery Rate 08/11 902 113 123/73 08/11 0850 40 08/11 0615 40 08/11 0400 97 Ventilator 40% 08/11 0244 40 08/11 0000 95 Ventilator 40% 08/11 0000 98.1 68 26 140/70 95 Ventilator 40% 08/10 2222 40 08/10 2125 69 116/91 08/10 2000 96 Ventilator 40% 08/10 1952 40 08/10 1632 40 08/10 1600 97.8 69 20 110/62 98 Ventilator 40% 08/10 1600 97 Ventilator 40% 08/10 1430 40 08/10 1200 40 08/10 1200 94 Ventilator 40% 08/10 1011 72 120/59 Intake & Output 08/11 1600 08/11 0800 08/11 0000 Intake Total 1408 1218 Output Total 630 575 Balance 778 643 Intake, IV 683 522 Intake, Oral 0 0 Intake, Tube 585 526 Feeding Intake, Tube 140 170 Irrigant Number 2 1 Bowel Movements Output, 25 20 Drainage Output, 25 25 Gastric Drainage Output, Urine 580 530 Laboratory Tests 08/11 08/11 08/10 0403 0014 1644 Chemistry Sodium (137 - 145 mmol/L) 135 L 137 Potassium (3.5 - 5.1 mmol/L) 4.0 4.1 Chloride (98 - 107 mmol/L) 99 99 Carbon Dioxide (22 - 30 mmol/L) 27 28 Anion Gap (5 - 16) 8 10 BUN (9 - 20 mg/dL) 31 H 31 H Creatinine (0.7 - 1.2 mg/dL) 0.7 0.7 Estimated GFR (>60 ml/min) > 60 > 60 BUN/Creatinine Ratio (7 - 25 %) 44.3 H Glucose (65 - 99 mg/dL) 164 H Calcium (8.4 - 10.2 mg/dL) 7.7 L Phosphorus (2.5 - 4.5 mg/dL) 3.4 Magnesium (1.6 - 2.3 mg/dL) 1.9 Total Bilirubin (0.2 - 1.3 mg/dL) 0.4 AST (17 - 59 U/L) 64 H ALT (21 - 72 U/L) 87 H Troponin I (<0.11 ng/ml) < 0.01 Albumin (3.5 - 5.0 g/dL) 2.1 L Hematology CBC w Diff NO MAN DIFF REQ WBC (4.8 - 10.8 /CUMM) 10.6 RBC (4.70 - 6.10 /CUMM) 3.04 L Hgb (14.0 - 18.0 G/DL) 8.7 L Hct (42 - 52 %) 27.2 L MCV (80.0 - 94.0 FL) 89.4 MCH (27.0 - 31.0 PG) 28.5 RDW (11.5 - 14.5 %) 20.3 H Plt Count (130 - 400 /CUMM) 210 MPV (7.4 - 10.4 FL) 8.5 Gran % (42.2 - 75.2 %) 63.8 Lymphocytes % (20.5 - 51.1 %) 27.5 Monocytes % (1.7 - 9.3 %) 8.3 Eosinophils % (0 - 5 %) 0.1 Basophils % (0.0 - 2.0 %) 0.3 Absolute Granulocytes (1.4 - 6.5 /CUMM) 6.7 H Absolute Lymphocytes (1.2 - 3.4 /CUMM) 2.9 Absolute Monocytes (0.10 - 0.60 /CUMM) 0.9 H Absolute Eosinophils (0.0 - 0.7 /CUMM) 0 Absolute Basophils (0.0 - 0.2 /CUMM) 0 PUBS MCHC (33.0 - 37.0 G/DL) 31.9 L 08/10 08/10 0435 0347 Blood Gas pH (7.35 - 7.45 PH) 7.53 H pCO2 (35 - 45 TORR) 33 L pO2 (80 - 100 TORR) 105 H HCO3 (21 - 28 MEQ/L) 27 ABG O2 Sat (Measured) (>96.0 %) 97.0 P-50 (Temp Corrected) Y Carboxyhemoglobin (1.5 - 5.0 %) 0.3 L O2 Concentration % 45% Temperature (97.0 - 100.0 FARH) 97.8 Respiration Rate (BPM) 10 O2 Delivery Method ESPRIT Vent Mode AC Expiratory Pressure (CMH2O/P) 5 Tidal Volume (CC) 500 Chemistry Sodium (137 - 145 mmol/L) 139 Potassium (3.5 - 5.1 mmol/L) 3.4 L Chloride (98 - 107 mmol/L) 99 Carbon Dioxide (22 - 30 mmol/L) 29 Anion Gap (5 - 16) 11 BUN (9 - 20 mg/dL) 32 H Creatinine (0.7 - 1.2 mg/dL) 0.8 Estimated GFR (>60 ml/min) > 60 Glucose (65 - 99 mg/dL) 158 H Calcium (8.4 - 10.2 mg/dL) 7.7 L Phosphorus (2.5 - 4.5 mg/dL) 3.6 Magnesium (1.6 - 2.3 mg/dL) 1.8 Total Bilirubin (0.2 - 1.3 mg/dL) 0.5 AST (17 - 59 U/L) 74 H ALT (21 - 72 U/L) 85 H Albumin (3.5 - 5.0 g/dL) 2.2 L Hematology CBC w Diff MAN DIFF ORDERED WBC (4.8 - 10.8 /CUMM) 11.0 H RBC (4.70 - 6.10 /CUMM) 3.11 L Hgb (14.0 - 18.0 G/DL) 9.1 L Hct (42 - 52 %) 27.5 L MCV (80.0 - 94.0 FL) 88.4 MCH (27.0 - 31.0 PG) 29.1 RDW (11.5 - 14.5 %) 20.6 H Plt Count (130 - 400 /CUMM) 213 MPV (7.4 - 10.4 FL) 8.1 Gran % (42.2 - 75.2 %) 68.4 Lymphocytes % (20.5 - 51.1 %) 23.3 Monocytes % (1.7 - 9.3 %) 7.6 Eosinophils % (0 - 5 %) 0.4 Basophils % (0.0 - 2.0 %) 0.3 Absolute Granulocytes (1.4 - 6.5 /CUMM) 7.5 H Segmented Neutrophils (42.2 - 75.2 %) 57 Band Neutrophils (0.0 - 5.0 %) 10 H Absolute Lymphocytes (1.2 - 3.4 /CUMM) 2.6 Lymphocytes (20.5 - 51.1 %) 19 L Monocytes (1.7 - 9.3 %) 8 Absolute Monocytes (0.10 - 0.60 /CUMM) 0.8 H Absolute Eosinophils (0.0 - 0.7 /CUMM) 0 Absolute Basophils (0.0 - 0.2 /CUMM) 0 Metamyelocytes (0.0 - 1.0 %) 5 H Myelocytes (0 - 0 %) 1 H Platelet Estimate (ADEQUATE) ADEQUATE Polychromasia 1+ Anisocytosis 1+ Stomatocytes 1+ PUBS MCHC (33.0 - 37.0 G/DL) 32.9 L Miscellaneous Phlebotomy Draw Site LEFT RADIAL 08/09 1235 Blood Gas pH (7.35 - 7.45 PH) 7.54 H pCO2 (35 - 45 TORR) 32 L pO2 (80 - 100 TORR) 85 HCO3 (21 - 28 MEQ/L) 27 ABG O2 Sat (Measured) (>96.0 %) 96.0 Carboxyhemoglobin (1.5 - 5.0 %) 0.3 L O2 Concentration % 45% Respiration Rate (BPM) 10 O2 Delivery Method VENT Vent Mode AC Expiratory Pressure (CMH2O/P) 5 Tidal Volume (CC) 500 Pressure Support (CMH2O/P) 0 Miscellaneous Phlebotomy Draw Site LEFT RADIAL Microbiology Date/Time Procedure - Status Source Growth 08/08 160 Body Fluid Culture - RES BODY FLUID ENTEROBACTER AEROGENES 08/08 160 Gram Stain - RES BODY FLUID Impression/Plan Impression/Plan Impression/Plan: Afebrile. Intubated Skin reveals no rash. HEENT negative. Neck supple with no adenopathy; Picc line in place Lungs decreased breath sounds bilaterally. Heart regular rhythm with no murmur. Abdomen is obese, distended, tender to palpation, Incision noted with a gabriela drain in the rt side, feeding tube on the left side Extremities superficial ulcerations over the anterior tibial aspects of both legs, with 1+ edema bilaterally. Neuro is without focality. 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 with prolonged antibiotic, previous history of peptic ulcer disease, diabetes, sinus rhythm upon admission was on Tikosyn, hyperlipidemia, apparently has never smoked before, previous history of lithotripsy, CABG, previous hip prosthesis infection status post removal of prosthesis in early 2017 now has the following issues * S/p Perf large DU ulcer s/p surg with unsuccessful du repair with peritonitis, persistant leak / now has sig gabriela drainage with ng suction and somatostatin / Patient now has significant fluid collection in the right paracolic gutter s/p pig tail on 08/08 with enterobacter being drained. Now prob has necrotizing fascitis of the abd wall * S/p Severe shock septic on multiple pressors now off pressors, how ever clinically worse since yesterday due to sepsis in his abd and prob pneumonia * Resolving Hypoxic respiratory failure due to above with no clinical evidence suggestive of pneumonia. Sputum does have enterobacter and staph * Sig drainage from the gabriela biliary leak which is ongoing/ with fluid collection which is pyogenic * Significant ischemic heart disease with low ejection fraction high risk for fluid overload. Previous pafib in sinus now with a pacer and AICD. 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 * H/O LIAM was on cpap * On stress dose steroids now being weaned off RECOMMENDATION * COnt current care and antibiotics * Family meeting done with nephew. Pts prior wises were to avoid nursing home life support etc. PTs nephew per prior wishes of the patient wishes no trach and wishes to continue mech vent for now and wants the patient tob be DNR and no vasopressors if he becomes more septic. He will discuss with patients's sisters and his siblings about further plan and I will meet with him on tuesday * Attempt trials daily not ready for extubation * Keep potassium at 4 and mag above 2 * Intravenous pantoprazole * Heparin subcutaneous * Cardio follow up prn Pt critically ill tts 38 mins
--- NOTE | 2017-08-11 12:27 | PN- General Surgery ---
Surgical Brief Attending Note Brief Attending Note: No significant change. still vent dependent with controlled duodenal leak. await family decision re: tracheostomy and/or limits of care.
[2017-08-11 16:00] VITALS: BP 102/60
[2017-08-12] VITALS: BP 110/60
[2017-08-12 05:04] LABS: ABSOLUTE BASOPHIL COUNT 0 /CUMM (0.0-0.2); ABSOLUTE EOSINOPHIL COUNT 0 /CUMM (0.0-0.7); ABSOLUTE GRANULOCYTE CT 7.5 /CUMM (1.4-6.5); ABSOLUTE LYMPH COUNT 3.2 /CUMM (1.2-3.4); ABSOLUTE MONOCYTE COUNT 0.9 /CUMM (0.10-0.60); BASOPHIL % 0.3 % (0.0-2.0); EOSINOPHIL % 0.2 % (0-5); GRANULOCYTE % 64.5 % (42.2-75.2); HEMATOCRIT 27.8 % (42-52); MEAN CORPUSCULAR HGB 29.6 PG (27.0-31.0); MEAN CORPUSCULAR HGB CONC 33.2 G/DL (33.0-37.0); MEAN CORPUSCULAR VOLUME 89.2 FL (80.0-94.0); MEAN PLATELET VOLUME 8.3 FL (7.4-10.4); PLATELET COUNT 236 /CUMM (130-400); RBC DISTRIBUTION WIDTH 20.3 % (11.5-14.5); RED BLOOD CELL CT 3.11 /CUMM (4.70-6.10); WHITE BLOOD CELL COUNT 11.6 /CUMM (4.8-10.8)
--- NOTE | 2017-08-12 06:13 | RADIOLOGY REPORT ---
EXAMINATION: XR PORTABLE CHEST CLINICAL INFORMATION: NG tube placement. Intubation. COMPARISON: Chest x-ray August 11, 2017, 5:43 AM TECHNIQUE: Portable frontal view of the chest was obtained. 5:30 AM FINDINGS: Endotracheal tube about 2 cm above kika. Nasogastric tube in stomach. Pacemaker leads in heart. Heart size enlarged. No pulmonary vascular congestion. Haziness at both lung bases accentuated by body habitus and portable technique. This is likely due to basilar infiltrates and/or atelectasis and/or effusion, greater on left than right. Basilar opacities unchanged since prior chest x-ray August 11, 2017 IMPRESSION: 1. Endotracheal tube catheter about 2 cm above kika. 2. Nasogastric tube in stomach. 3. Persistent bibasilar opacities. No significant change since prior chest x-ray
--- NOTE | 2017-08-12 07:51 | PN- Resident CRCU ---
Subjective HPI/CRCU Issues: Hypoxic respiratory failure on extubation trials Perforated duodenal ulcer status post duodenal repair and enteric leak. Heart failure with reduced ejection fraction status post AICD. Abdominal abscess 3 days ago culture growing Enterobacter positive sputum culture for Enterobacter and MSSA 24 Hour Events: Patient remains intubated. MAXIMUM TEMPERATURE of 99.6 overnight. Paced rhythm 60s to 70s. Stable BP. Will re-aatemp extubation trial today. Had a family meeting yesterday and patient was made DNR. Objective Vital Signs & I&O Last 8 Hrs of Vitals and I&O: Vital Signs Date Time Temp Pulse Resp B/P B/P Pulse O2 O2 Flow FiO2 Mean Ox Delivery Rate 08/12 0616 40 08/12 0353 40 08/12 0131 40 08/12 0000 97.2 69 24 110/60 96 Ventilator 40% 08/12 0000 96 Ventilator 40% 08/11 2203 40 08/11 2111 97.5 69 27 110/58 08/11 2000 98 Ventilator 40% 08/11 1918 40 08/11 1640 40 08/11 1600 93 Ventilator 40% 08/11 1600 97.8 69 18 102/60 93 Ventilator 40% 08/11 1404 40 08/11 1200 98 Ventilator 40% 08/11 1146 40 08/11 0902 113 123/73 08/11 0850 40 Intake & Output 08/12 1600 08/12 0800 12/ 0000 Intake Total 1395 Output Total 925 Balance 470 Intake, IV 531 Intake, Tube 439 Feeding Intake, Tube 425 Irrigant Number 3 Bowel Movements Output, 210 Drainage Output, 75 Gastric Drainage Output, Urine 640 Exam General Appearance: no apparent distress, sedated, intubated Head: atraumatic Neck: supple Respiratory: normal breath sounds, chest non-tender, decreased breath sounds (at the lung bases) Cardiovascular: regular rate/rhythm Gastrointestinal: normal bowel sounds, vertical surgical wound with drains in place, Distended and mildly tender Extremities: 1+ edema Weaning Parameters NIF: 10 Minute Volume: 9.1 Resp rate: 30 Vt: 305 Heart Rate: 69 Weaning Schedule Start Time: 1925 Minute Volume: 12.9 Resp Rate: 24 Vt: 540 Heart Rate: 69 End Time: 2130 Minute Volume: 12.5 Resp Rate: 22 Vt: 570 Heart Rate: 68 Current Medications: Current Medications Sig/Buck Start time Last Medication Dose Route Stop Time Status Admin Acetaminophen 1,000 MG Q6P PRN 07/16 0530 AC 07/20 N/A 1 UNIT IV 0659 Albuterol Sulfate 3 ML EVERY 4 HRS/AWAKE 07/27 0800 AC 08/12 INH 0816 Ampicillin Sodium/ 3,000 MG Q6H 08/10 2300 AC 08/12 Sulbactam Sodium IV 0413 Sodium Chloride 100 ML Budesonide/ 2 PUF BID 07/26 1056 AC 08/11 Formoterol Fumarate INH 2130 Carvedilol 3.125 MG BID 07/28 1000 AC 08/11 PO 211 Ciprofloxacin 400 MG Q12H 08/11 0500 AC 08/12 Dextrose/Water 200 ML IV 0516 Fentanyl Citrate 25 MCG Q4P PRN 08/05 2130 AC 08/07 IV 0406 Glycerin 2 SPRAY Q2P PRN 08/10 0445 AC 08/10 PO 2124 Heparin Sodium 5,000 UNIT Q8 08/05 1400 AC 08/12 (Porcine) SC 0558 Hydrocortisone 25 MG DAILY 08/12 1000 AC Sodium Succinate IV Hydrocortisone 25 MG Q12 08/04 1000 DC 08/11 Sodium Succinate IV 2241 Insulin Aspart 0 Q4 07/25 1000 AC 08/12 SC 0556 Insulin Detemir 20 UNITS BID 07/30 1000 AC 08/11 SC 2231 Octreotide Acetate 500 MCG Q20H 07/15 1400 AC 08/12 Dextrose/Water 500 ML IV 0516 Pantoprazole Sodium 40 MG BID 07/10 1016 AC 08/11 IV 2233 Potassium Chloride 20 MEQ BID 08/10 2200 AC 08/11 PO 211 Impression/Plan Impression/Problem List Impression: 76 year old gentleman PAF on Tikosyn, not on AC, 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 extubated, continues to be on tube feeds. #Endotracheal intubation - ABG PH 7.53/pC02 33/ P02 105 and HCO3 27 - Despite the fact respiratory rate is 10, patient used to override the ventilator. FIo2 40%. -Patient will have extubation trials for possible extubation #Septic shock - 2/2 peritonitis from perforated duodenal ulcer - Off Levophed - Started Vancomycin and Meropenem initally as per ID, now culture growing Enterobacter, possibly CRE (carbopenem resistant). - Antibiotics changed to Unasyn 3 g IV every 6 hours and Ciprofloxacin 400 mg IV every 12 hours - Hydrocortisone 50 mg Q12 was changed to daily hydrocortisone #V. tach - F/u cardio recs - Continue Carvedilol 3.125 twice a day with holding parameters #Hx of PAF on Tikosyn - Curently in NSR, and rate controlled - Continue to hold tikosyn # Perforated duodenal ulcer s/p repair -CT abdomen and pelvis with IV contrast was obtained for leukocytosis that revealed loculated fluid collections along the right paracolic gutter and left abdomen -Surgical evaluation on board -Status post Successful ultrasound-guided placement of 12 Arabic pigtail catheter into left abdominal abscess cavity on 08/08/17 -Body fluid culture grew heavy growth of gram-negative rods, culture growing Enterobacter. Patient started on Vancomycin and Meropenem but after 3 days as per ID recommendations, Antibiotics changed to Unasyn 3 g IV every 6 hours and Ciprofloxacin 400 mg IV every 12 hours day 3 - Status post expiratory laparotomy and suture repair of duodenal ulcer with Fabrizio patch on 07/09 and 07/16--- no recommendation for further surgical intervention at the moment - No octreotide drip but noticed decreasing continuous drainage from WILLEM - IV Protonix 40mg BID - Status post daptomycin and meropenem, ID on board, body fluid culture 2 from the OR positive for vancomycin-resistant enterococcus -Respiratory culture from 07/18 positive for vancomycin-resistant enterococcus -Respiratory culture from 07/30 positive for 1. Moderate growth of: ESCHERICHIA COLI 2. Light growth of: BETA STREP GROUP B -Respiratory culture from 07/30 positive for Scant growth of 1. ENTEROBACTER AEROGENES 2. Light growth of: STAPH AUREUS, likely colonization #USMAN - Resolved - Continue to montior UOP, monitor BUN increase #Uncontrolled DM, secondary to Sepsis, pressors and octreotide - Continue Levemir 20 units twice a day - Novolog SS every 4 hours - Target Blood sugar 140 -180 - Continue following endocrine recommendation - DVT prophylaxis ALPS and SC heparin - Diet Continue on J tube feeding, rate 75 ml/h - Code Status Full Code Consultation ID, surgery, cardiology, nephrology, endocrinology IV access PICC line right arm Problem List: 1. Leukocytosis 2. Duodenal ulcer with perforation Pain Ratin Tomorrow's Labs & Rationales: CBC showed leukocytosis ICU bundle for electrolyte monitoring Plan DVT/Prophylaxis: mechanical, pharmacological
[2017-08-12 08:00] VITALS: BP 102/60
--- NOTE | 2017-08-12 08:01 | PN- Diabetes ---
Assessment/Plan Assessment: 76-year-old male with Hx of CAD with low ejection fraction, atrial fibrillation, AICD, previous infection of hip with prolonged antibiotic, history of peptic ulcer disease, diabetes and renal stone, was admitted for perforation of duodenum now with septic shock in ICU. He was on 3 pressors, TPN, octreotide drip and bicarb drip. His BP remained low and stress dose of steroid was initiated despite his am cortisol was 24.8. Patient is still on octreotide drip. Patient was re-intubated on 07/26/2017. He has been off on TPN. Currently he is on tube feeding with Vital 75 mL per hour. Levemir was increased to 20 units twice a day and Novolog coverage every 4 hours was adjusted multiple times. The patient's most recent blood sugars were 221, 139, 167 and 179. Hydrocortisone was decreased to 25 mg iv every 12 hours. Plan: 1. further decrease Hydrocortisone to 25 mg iv daily today; 2. continue the current insulin regimen for now; 3. monitor FSGs and vital sign; will follow. Subjective Subjective: patient remains intubated. Objective Last 24 Hrs of Vital Signs/I&O Vital Signs Date Time Temp Pulse Resp B/P B/P Pulse O2 O2 Flow FiO2 Mean Ox Delivery Rate 08/12 0616 40 08/12 0353 40 08/12 0131 40 08/12 0000 97.2 69 24 110/60 96 Ventilator 40% 08/12 0000 96 Ventilator 40% 08/11 2203 40 08/11 2111 97.5 69 27 110/58 08/11 2000 98 Ventilator 40% 08/11 1918 40 08/11 1640 40 08/11 1600 93 Ventilator 40% 08/11 1600 97.8 69 18 102/60 93 Ventilator 40% 08/11 1404 40 08/11 1200 98 Ventilator 40% 08/11 1146 40 08/11 0902 113 123/73 08/11 0850 40 Intake & Output 08/12 1600 08/12 0800 12/ 0000 Intake Total 1395 Output Total 925 Balance 470 Intake, IV 531 Intake, Tube 439 Feeding Intake, Tube 425 Irrigant Number 3 Bowel Movements Output, 210 Drainage Output, 75 Gastric Drainage Output, Urine 640 Findings Pertinent Lab/Les Results: Laboratory Tests 08/12 0400 Chemistry Sodium (137 - 145 mmol/L) 139 Potassium (3.5 - 5.1 mmol/L) 3.8 Chloride (98 - 107 mmol/L) 102 Carbon Dioxide (22 - 30 mmol/L) 28 Anion Gap (5 - 16) 9 BUN (9 - 20 mg/dL) 29 H Creatinine (0.7 - 1.2 mg/dL) 0.7 Estimated GFR (>60 ml/min) > 60 Glucose (65 - 99 mg/dL) 138 H Calcium (8.4 - 10.2 mg/dL) 7.9 L Phosphorus (2.5 - 4.5 mg/dL) 3.5 Magnesium (1.6 - 2.3 mg/dL) 1.8 Total Bilirubin (0.2 - 1.3 mg/dL) 0.5 AST (17 - 59 U/L) 85 H ALT (21 - 72 U/L) 109 H Albumin (3.5 - 5.0 g/dL) 2.2 L Hematology CBC w Diff NO MAN DIFF REQ WBC (4.8 - 10.8 /CUMM) 11.6 H RBC (4.70 - 6.10 /CUMM) 3.11 L Hgb (14.0 - 18.0 G/DL) 9.2 L Hct (42 - 52 %) 27.8 L MCV (80.0 - 94.0 FL) 89.2 MCH (27.0 - 31.0 PG) 29.6 RDW (11.5 - 14.5 %) 20.3 H Plt Count (130 - 400 /CUMM) 236 MPV (7.4 - 10.4 FL) 8.3 Gran % (42.2 - 75.2 %) 64.5 Lymphocytes % (20.5 - 51.1 %) 27.3 Monocytes % (1.7 - 9.3 %) 7.7 Eosinophils % (0 - 5 %) 0.2 Basophils % (0.0 - 2.0 %) 0.3 Absolute Granulocytes (1.4 - 6.5 /CUMM) 7.5 H Absolute Lymphocytes (1.2 - 3.4 /CUMM) 3.2 Absolute Monocytes (0.10 - 0.60 /CUMM) 0.9 H Absolute Eosinophils (0.0 - 0.7 /CUMM) 0 Absolute Basophils (0.0 - 0.2 /CUMM) 0 PUBS MCHC (33.0 - 37.0 G/DL) 33.2
--- NOTE | 2017-08-12 11:41 | PN- Infect Dx ---
Subjective Subjective: Afebrile without complaints Objective Last 24 Hrs of Vital Signs/I&O Vital Signs Date Time Temp Pulse Resp B/P B/P Pulse O2 O2 Flow FiO2 Mean Ox Delivery Rate 08/12 1032 69 111/56 08/12 0825 40 08/12 0800 96 Ventilator 40% 08/12 08 97.4 69 18 102/60 98 Ventilator 40% 08/12 0616 40 08/12 0353 40 08/12 0131 40 08/12 0000 97.2 69 24 110/60 96 Ventilator 40% 08/12 0000 96 Ventilator 40% 08/11 2203 40 08/11 2111 97.5 69 27 110/58 08/11 2000 98 Ventilator 40% 08/11 1918 40 08/11 1640 40 08/11 1600 93 Ventilator 40% 08/11 1600 97.8 69 18 102/60 93 Ventilator 40% 08/11 1404 40 08/11 1200 98 Ventilator 40% 08/11 1146 40 Intake & Output 08/12 1600 08/12 0808/12 0000 Intake Total 1395 Output Total 925 Balance 470 Intake, IV 531 Intake, Tube 439 Feeding Intake, Tube 425 Irrigant Number 3 Bowel Movements Output, 210 Drainage Output, 75 Gastric Drainage Output, Urine 640 Physical Exam Other Physical Findings: He appears comfortable on the ventilator in no acute distress Lungs are clear Heart regular rhythm with no murmur Abdomen is distended, nontender with positive bowel sounds; purulent appearing drainage easily expressed from the inferior aspect of the incision; left abdominal catheter with 40 mL output yesterday; WILLEM drains remain in place with significant output Extremities no cyanosis, clubbing or edema; PICC remains in the right upper extremity with no inflammation at the site Duvall catheter remains in place Results Last 24 Hours of Lab Results: Laboratory Tests 08/12 0400 Chemistry Sodium (137 - 145 mmol/L) 139 Potassium (3.5 - 5.1 mmol/L) 3.8 Chloride (98 - 107 mmol/L) 102 Carbon Dioxide (22 - 30 mmol/L) 28 Anion Gap (5 - 16) 9 BUN (9 - 20 mg/dL) 29 H Creatinine (0.7 - 1.2 mg/dL) 0.7 Estimated GFR (>60 ml/min) > 60 Glucose (65 - 99 mg/dL) 138 H Calcium (8.4 - 10.2 mg/dL) 7.9 L Phosphorus (2.5 - 4.5 mg/dL) 3.5 Magnesium (1.6 - 2.3 mg/dL) 1.8 Total Bilirubin (0.2 - 1.3 mg/dL) 0.5 AST (17 - 59 U/L) 85 H ALT (21 - 72 U/L) 109 H Albumin (3.5 - 5.0 g/dL) 2.2 L Hematology CBC w Diff NO MAN DIFF REQ WBC (4.8 - 10.8 /CUMM) 11.6 H RBC (4.70 - 6.10 /CUMM) 3.11 L Hgb (14.0 - 18.0 G/DL) 9.2 L Hct (42 - 52 %) 27.8 L MCV (80.0 - 94.0 FL) 89.2 MCH (27.0 - 31.0 PG) 29.6 RDW (11.5 - 14.5 %) 20.3 H Plt Count (130 - 400 /CUMM) 236 MPV (7.4 - 10.4 FL) 8.3 Gran % (42.2 - 75.2 %) 64.5 Lymphocytes % (20.5 - 51.1 %) 27.3 Monocytes % (1.7 - 9.3 %) 7.7 Eosinophils % (0 - 5 %) 0.2 Basophils % (0.0 - 2.0 %) 0.3 Absolute Granulocytes (1.4 - 6.5 /CUMM) 7.5 H Absolute Lymphocytes (1.2 - 3.4 /CUMM) 3.2 Absolute Monocytes (0.10 - 0.60 /CUMM) 0.9 H Absolute Eosinophils (0.0 - 0.7 /CUMM) 0 Absolute Basophils (0.0 - 0.2 /CUMM) 0 PUBS MCHC (33.0 - 37.0 G/DL) 33.2 Last 24 Hours of Les Results: Left abdominal fluid culture August 08 positive for Enterobacter sensitive to Meropenem, Ciprofloxacin, Gentamicin and Bactrim (not a CRE) Recent Imaging Studies: Chest x-ray August 12, personally reviewed, reveals a decreased density at the right base Assessment/Plan Impression: Overall status poor, though stable, with temperatures remaining normal and white blood cell count only minimally elevated (on tapering steroids) now 4 days status post drainage of a left abdominal abscess secondary to Enterobacter, which is not a CRE, and for which he is on Ciprofloxacin. He remains on Unasyn as well for the Staph aureus isolated from the sputum culture, though suspect this represents colonization, with his stable respiratory status and chest x- ray. He is now 34 days status post surgery for the perforated duodenal ulcer and 27 days status post an unsuccessful duodenal repair for the persistent enteric leak. Suggestion: 1. Will need a repeat CT of the abdomen and pelvis once his drainage decreases 2. Continue Unasyn and Ciprofloxacin
--- NOTE | 2017-08-12 12:38 | PN- CRCU ---
Subjective HPI/Critical Care Issues: Patient remains intubated. MAXIMUM TEMPERATURE of 99.6 overnight. Paced rhythm 60s to 70s. Stable BP. Will re-aatemp extubation trial today. Had a family meeting yesterday and patient was made DNR. Objective Current Medications: Current Medications Sig/Buck Start time Last Medication Dose Route Stop Time Status Admin Acetaminophen 1,000 MG Q6P PRN 07/16 0530 AC 07/20 N/A 1 UNIT IV 0659 Albuterol Sulfate 3 ML EVERY 4 HRS/AWAKE 07/27 0800 AC 08/12 INH 1200 Ampicillin Sodium/ 3,000 MG Q6H 08/10 2300 AC 08/12 Sulbactam Sodium IV 1211 Sodium Chloride 100 ML Budesonide/ 2 PUF BID 07/26 1056 AC 08/12 Formoterol Fumarate INH 0816 Carvedilol 3.125 MG BID 07/28 1000 AC 08/12 PO 1032 Ciprofloxacin 400 MG Q12H 08/11 0500 AC 08/12 Dextrose/Water 200 ML IV 0516 Fentanyl Citrate 25 MCG Q4P PRN 08/05 2130 AC 08/07 IV 0406 Glycerin 2 SPRAY Q2P PRN 08/10 0445 AC 08/10 PO 2124 Heparin Sodium 5,000 UNIT Q8 08/05 1400 AC 08/12 (Porcine) SC 0558 Hydrocortisone 25 MG DAILY 08/12 1000 AC 08/12 Sodium Succinate IV 1032 Hydrocortisone 25 MG Q12 08/04 1000 DC 08/11 Sodium Succinate IV 2241 Insulin Aspart 0 Q4 07/25 1000 AC 08/12 SC 1031 Insulin Detemir 20 UNITS BID 07/30 1000 AC 08/12 SC 1031 Octreotide Acetate 500 MCG Q20H 07/15 1400 AC 08/12 Dextrose/Water 500 ML IV 0516 Pantoprazole Sodium 40 MG BID 07/10 1016 AC 08/12 IV 1031 Potassium Chloride 20 MEQ BID 08/10 2200 AC 08/12 PO 1043 Vital Signs & I&O Last 24 Hrs of Vitals and I&O: Vital Signs Date Time Temp Pulse Resp B/P B/P Pulse O2 O2 Flow FiO2 Mean Ox Delivery Rate 08/12 1222 40 08/12 1032 69 111/56 08/12 0825 40 08/12 0800 96 Ventilator 40% 08/12 08 97.4 69 18 102/60 98 Ventilator 40% 12/08 0616 40 08/12 0353 40 08/12 0131 40 08/12 0000 97.2 69 24 110/60 96 Ventilator 40% 08/12 0000 96 Ventilator 40% 08/11 2203 40 08/11 2111 97.5 69 27 110/58 08/11 2000 98 Ventilator 40% 08/11 1918 40 08/11 1640 40 08/11 1600 93 Ventilator 40% 08/11 1600 97.8 69 18 102/60 93 Ventilator 40% 08/11 1404 40 Intake & Output 08/12 1600 08/12 0800 08/12 0000 Intake Total 1395 Output Total 925 Balance 470 Intake, IV 531 Intake, Tube 439 Feeding Intake, Tube 425 Irrigant Number 3 Bowel Movements Output, 210 Drainage Output, 75 Gastric Drainage Output, Urine 640 Impression/Plan Impression/Plan Impression/Plan: Afebrile. Intubated Skin reveals no rash. HEENT negative. Neck supple with no adenopathy; Picc line in place Lungs decreased breath sounds bilaterally. Heart regular rhythm with no murmur. Abdomen is obese, distended, tender to palpation, Incision noted with a gabriela drain in the rt side, feeding tube on the left side Extremities superficial ulcerations over the anterior tibial aspects of both legs, with 1+ edema bilaterally. Neuro is without focality. 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 with prolonged antibiotic, previous history of peptic ulcer disease, diabetes, sinus rhythm upon admission was on Tikosyn, hyperlipidemia, apparently has never smoked before, previous history of lithotripsy, CABG, previous hip prosthesis infection status post removal of prosthesis in early 2017 now has the following issues * S/p Perf large DU ulcer s/p surg with unsuccessful du repair with peritonitis, persistant leak / now has sig gabriela drainage with ng suction and somatostatin / Patient now has significant fluid collection in the right paracolic gutter s/p pig tail on 08/08 with enterobacter being drained. Now prob has necrotizing fascitis of the abd wall * S/p Severe shock septic on multiple pressors now off pressors, how ever clinically worse since yesterday due to sepsis in his abd and prob pneumonia * Resolving Hypoxic respiratory failure due to above with no clinical evidence suggestive of pneumonia. Sputum does have enterobacter and staph * Sig drainage from the gabriela biliary leak which is ongoing/ with fluid collection which is pyogenic * Significant ischemic heart disease with low ejection fraction high risk for fluid overload. Previous pafib in sinus now with a pacer and AICD. 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 * H/O LIAM was on cpap * On stress dose steroids now being weaned off RECOMMENDATION * COnt current care and antibiotics * Ct abd and pelvis when needed per ID * Attempt trials daily not ready for extubation * Intravenous pantoprazole * Heparin subcutaneous * Cardio follow up prn DNR and meeting on tuesday with family Pt critically ill tts 38 mins
[2017-08-12 16:00] VITALS: BP 110/60
--- NOTE | 2017-08-12 16:22 | PN- Cardiology ---
Subjective Subjective: Remains intubated and awake. Objective Vital Signs and I&Os Vital Signs Date Time Temp Pulse Resp B/P B/P Pulse O2 O2 Flow FiO2 Mean Ox Delivery Rate 08/12 1450 40 08/12 1222 40 08/12 1032 69 111/56 08/12 0825 40 08/12 0800 96 Ventilator 40% 08/12 08 97.4 69 18 102/60 98 Ventilator 40% 08/12 0616 40 08/12 0353 40 08/12 0131 40 08/12 0000 97.2 69 24 110/60 96 Ventilator 40% 08/12 0000 96 Ventilator 40% 08/11 2203 40 08/11 2111 97.5 69 27 110/58 08/11 2000 98 Ventilator 40% 08/11 1918 40 08/11 1640 40 Intake & Output 08/12 1600 08/12 0808/12 0000 08/11 1600 08/11 0800 08/11 0000 Intake Total 1395 1449 1408 1218 Output Total 925 790 630 575 Balance 470 659 778 643 Intake, IV 531 324 683 522 Intake, Oral 0 0 Intake, Tube 439 595 585 526 Feeding Intake, Tube 425 530 140 170 Irrigant Number 3 1 2 1 Bowel Movements Output, 210 390 25 20 Drainage Output, 75 0 25 25 Gastric Drainage Output, Other 0 Output, Urine 640 400 580 530 Physical Exam: Well-developed, morbidly obese elderly male in no acute distress who is intubated. Vital signs: See above. Neck: No JVD, no bruits. Lungs: Bilateral rhonchi. Heart: S1, S2 with grade 2/6 systolic murmur. Abdomen: Soft, nontender, positive bowel sounds. Extremities: No edema. Current Medications: Current Medications Sig/Buck Start time Last Medication Dose Route Stop Time Status Admin Acetaminophen 1,000 MG Q6P PRN 07/16 0530 AC 07/20 N/A 1 UNIT IV 0659 Albuterol Sulfate 3 ML EVERY 4 HRS/AWAKE 07/27 0800 AC 08/12 INH 1200 Ampicillin Sodium/ 3,000 MG Q6H 08/10 2300 AC 08/12 Sulbactam Sodium IV 1211 Sodium Chloride 100 ML Budesonide/ 2 PUF BID 07/26 1056 AC 08/12 Formoterol Fumarate INH 0816 Carvedilol 3.125 MG BID 07/28 1000 AC 08/12 PO 1032 Ciprofloxacin 400 MG Q12H 08/11 0500 AC 08/12 Dextrose/Water 200 ML IV 0516 Fentanyl Citrate 25 MCG Q4P PRN 08/05 2130 AC 08/07 IV 0406 Glycerin 2 SPRAY Q2P PRN 08/10 0445 AC 08/10 PO 2124 Heparin Sodium 5,000 UNIT Q8 08/05 1400 AC 08/12 (Porcine) SC 1457 Hydrocortisone 25 MG DAILY 08/12 1000 AC 08/12 Sodium Succinate IV 1032 Hydrocortisone 25 MG Q12 08/04 1000 DC 08/11 Sodium Succinate IV 2241 Insulin Aspart 0 Q4 07/25 1000 AC 08/12 SC 1457 Insulin Detemir 20 UNITS BID 07/30 1000 AC 08/12 SC 1031 Octreotide Acetate 500 MCG Q20H 07/15 1400 AC 08/12 Dextrose/Water 500 ML IV 0516 Pantoprazole Sodium 40 MG BID 07/10 1016 AC 08/12 IV 1031 Potassium Chloride 20 MEQ BID 08/10 2200 AC 08/12 PO 1043 Results Last 48 Hrs of Labs/Mics: Laboratory Tests 08/12/17 1205: pH 7.52 H, pCO2 30 L, pO2 88, HCO3 24, ABG O2 Sat (Measured) 97.0, P-50 (Temp Corrected) YES, Carboxyhemoglobin 0.3 L, O2 Concentration % 40%, Temperature 97.4, O2 Delivery Method VENT, Vent Mode CPAP, Expiratory Pressure 5, Pressure Support 6, Phlebotomy Draw Site LEFT RADIAL 08/12/17 0400: Anion Gap 9, Estimated GFR > 60, Glucose 138 H, Calcium 7.9 L, Phosphorus 3.5, Magnesium 1.8, Total Bilirubin 0.5, AST 85 H, ALT 109 H, Albumin 2.2 L, CBC w Diff NO MAN DIFF REQ, RBC 3.11 L, MCV 89.2, MCH 29.6, RDW 20.3 H, MPV 8.3, Gran % 64.5, Lymphocytes % 27.3, Monocytes % 7.7, Eosinophils % 0.2, Basophils % 0.3, Absolute Granulocytes 7.5 H, Absolute Lymphocytes 3.2, Absolute Monocytes 0.9 H, Absolute Eosinophils 0, Absolute Basophils 0, PUBS MCHC 33.2 08/11/17 0403: Anion Gap 8, Estimated GFR > 60, Glucose 164 H, Calcium 7.7 L, Phosphorus 3.4, Magnesium 1.9, Total Bilirubin 0.4, AST 64 H, ALT 87 H, Albumin 2.1 L, CBC w Diff NO MAN DIFF REQ, RBC 3.04 L, MCV 89.4, MCH 28.5, RDW 20.3 H, MPV 8.5, Gran % 63.8, Lymphocytes % 27.5, Monocytes % 8.3, Eosinophils % 0.1, Basophils % 0.3, Absolute Granulocytes 6.7 H, Absolute Lymphocytes 2.9, Absolute Monocytes 0.9 H, Absolute Eosinophils 0, Absolute Basophils 0, PUBS MCHC 31.9 L 08/11/17 0014: Troponin I < 0.01, Prealbumin 10.9 L 08/10/17 1644: Anion Gap 10, Estimated GFR > 60, BUN/Creatinine Ratio 44.3 H Recent Imaging Studies: CXR 08/12/2017: 1. Endotracheal tube catheter about 2 cm above kika. 2. Nasogastric tube in stomach. 3. Persistent bibasilar opacities. No significant change since prior chest x-ray Assessment/Plan Assessment/Plan [id number] w/ hx of morbid obesity, LIAM on CPAP, COPD, HTN, HLD, DM, CAD/ICM (s/ p IMI in 1998, CABG 4 w/ WHITE to LAD and individual SVGs to Dx, OM, PDA & MAZE) , and recurrent PAF who presented in an unkempt state via ambulance w/ UTI & subsequently had a perforation of a duodenal ulcer for which he underwent surgery (Fabrizio patch) on 07/09/2017 with worsening clinical status requiring return to the OR on 07/16/2017 for exploratory laparotomy and suture repair duodenal ulcer with Fabrizio patch. More lethargic s/p drainage of a left abdominal abscess on 08/08/2017 w/ pus aspiration & catheter in place. Hemodynamically stable with properly functioning electronic pacemaker nearing end-of-life (EOL), but without immediate concern for pacemaker failure. Continued output from WILLEM drains and persistent purulent drainage from his incision, that is felt by surgery to represent necrotic fascia. Recommendations: * If further significant ventricular tachycardia can place on amiodarone. * Pacemaker functioning properly and should for months, even though near EOL. * Maintain potassium between 4.0-4.5 mEq per liter. * Maintain magnesium and maintain at or above 2.0 mEq per liter. * Continue to follow-up on infectious disease, critical care, endocrine, renal and surgical recommendations. * Continue DVT prophylaxis. Continue telemetry? Not applicable (In ICU.)
--- NOTE | 2017-08-12 16:59 | PN- General Surgery ---
Surgical Brief Attending Note Brief Attending Note: persistent drainage, bilious. output volume stable but ?reduced. Continue nonoperative management. tracheostomy timing per icu.
[2017-08-13] VITALS: BP 114/70
[2017-08-13 04:04] LABS: ABSOLUTE BASOPHIL COUNT 0 /CUMM (0.0-0.2); ABSOLUTE EOSINOPHIL COUNT 0.1 /CUMM (0.0-0.7); ABSOLUTE GRANULOCYTE CT 8.1 /CUMM (1.4-6.5); ABSOLUTE LYMPH COUNT 3.5 /CUMM (1.2-3.4); ABSOLUTE MONOCYTE COUNT 0.8 /CUMM (0.10-0.60); BASOPHIL % 0.2 % (0.0-2.0); EOSINOPHIL % 0.5 % (0-5); GRANULOCYTE % 65.2 % (42.2-75.2); HEMATOCRIT 27.2 % (42-52); MEAN CORPUSCULAR HGB CONC 32.1 G/DL (33.0-37.0); MEAN CORPUSCULAR VOLUME 90.4 FL (80.0-94.0); MEAN PLATELET VOLUME 7.8 FL (7.4-10.4); PLATELET COUNT 235 /CUMM (130-400); RBC DISTRIBUTION WIDTH 20.8 % (11.5-14.5); RED BLOOD CELL CT 3.01 /CUMM (4.70-6.10); WHITE BLOOD CELL COUNT 12.5 /CUMM (4.8-10.8)
--- NOTE | 2017-08-13 07:24 | RADIOLOGY REPORT ---
EXAMINATION: XR PORTABLE CHEST CLINICAL INFORMATION: Check ET tube placement COMPARISON: Previous chest x-rays most recent from yesterday TECHNIQUE: Portable frontal view of the chest was obtained. FINDINGS: The cardiac silhouette is enlarged but stable. There are median sternotomy wires. There is a left subclavian pacemaker. The leads are not optimally visualized. There is a right upper extremity PICC line with tip projecting over the SVC. There is an endotracheal tube with tip 2.8 cm above the kika. There is a nasogastric tube. The tip is not seen. There is atelectasis/consolidation at the lung bases. Some of this may be overestimated due to light film technique. The lungs are otherwise clear. There is no significant pleural effusion. There is no pneumothorax. IMPRESSION: Stable enlargement of the cardiac silhouette. Atelectasis/consolidation at the lung bases. This may be overestimated due to light film technique. Nasogastric tube tip and pacemaker/defibrillator lead is not visualized. ET tube and right upper extremity PICC line in satisfactory position.
[2017-08-13 08:00] VITALS: BP 108/56
--- NOTE | 2017-08-13 08:23 | PN- Resident CRCU ---
Cipriano Sadler MD,[facility] 08/13/17 0823: Subjective HPI/CRCU Issues: Hypoxic respiratory failure on extubation trials Perforated duodenal ulcer status post duodenal repair and enteric leak. Heart failure with reduced ejection fraction status post AICD. Abdominal abscess culture growing Enterobacter positive sputum culture for Enterobacter and MSSA 24 Hour Events: Patient visited today, was lying in bed comfortably in no acute distress, intubated, sedated but was responding to verbal stimuli, was not able to articulate. was planing to wean off ventilation but failed per respirtory. No fever or chills, no chest pain, no other events. Objective Vital Signs & I&O Last 8 Hrs of Vitals and I&O: T: no fever Paced, GA 68 - 73, BP 96/75 - 111/58 Vent: AC, 10/550/40/6 O2 sat: >95% Intake: 6222 Output: 2875 Exam General Appearance: intubated (drowsy), obese Head: atraumatic, normal appearance Neck: normal inspection Respiratory: normal breath sounds, chest non-tender Cardiovascular: regular rate/rhythm Gastrointestinal: ostomy bag in place, midline incision. dressing clean with no discharge or oozing. Extremities: normal inspection Weaning Parameters NIF: 30 Minute Volume: 13.7 Resp rate: 24 Vt: 550 Heart Rate: 69 Weaning Schedule Start Time: 2100 Minute Volume: 10.5 Resp Rate: 24 Vt: 438 Heart Rate: 69 End Time: 2300 Minute Volume: 11.5 Resp Rate: 26 Vt: 446 Heart Rate: 69 Current Medications: Current Medications Sig/Buck Start time Last Medication Dose Route Stop Time Status Admin Acetaminophen 1,000 MG Q6P PRN 07/16 0530 AC 07/20 N/A 1 UNIT IV 0659 Albuterol Sulfate 3 ML EVERY 4 HRS/AWAKE 07/27 0800 AC 08/13 INH 1233 Ampicillin Sodium/ 3,000 MG Q6H 08/10 2300 AC 08/13 Sulbactam Sodium IV 1004 Sodium Chloride 100 ML Budesonide/ 2 PUF BID 07/26 1056 AC 08/13 Formoterol Fumarate INH 0956 Carvedilol 3.125 MG BID 07/28 1000 AC 08/13 PO 0905 Ciprofloxacin 400 MG Q12H 08/11 0500 AC 08/13 Dextrose/Water 200 ML IV 0415 Fentanyl Citrate 25 MCG Q4P PRN 08/05 2130 AC 08/07 IV 0406 Glycerin 2 SPRAY Q2P PRN 08/10 0445 AC 08/10 PO 2124 Heparin Sodium 5,000 UNIT Q8 08/05 1400 AC 08/13 (Porcine) SC 0555 Hydrocortisone 25 MG DAILY 08/12 1000 DC 08/13 Sodium Succinate IV 0859 Insulin Aspart 0 Q4 07/25 1000 AC 08/13 SC 1004 Insulin Detemir 17 UNITS BID 08/13 2200 AC SC Insulin Detemir 20 UNITS BID 07/30 1000 DC 08/13 SC 0946 Magnesium Oxide 400 MG ONE ONE 08/13 0600 DC 08/13 PO 08/13 0601 0645 Octreotide Acetate 500 MCG Q20H 07/15 1400 AC 08/13 Dextrose/Water 500 ML IV 0301 Pantoprazole Sodium 40 MG BID 07/10 1016 AC 08/13 IV 0859 Potassium Chloride 40 MEQ ONCE ONE 08/13 0645 DC 08/13 PO 08/13 0646 0645 Potassium Chloride 20 MEQ ONCE ONE 08/13 600 CAN PO 08/13 06 Potassium Chloride 20 MEQ BID 08/10 2200 AC 08/13 PO 0900 CXR Findings: PATIENT: LUIS HENDERSON PRESENT AGE: 76 PATIENT ACCOUNT NO: [id number] : 40 LOCATION: [facility] ORDERING PHYSICIAN: Maurilio Singleton MD SERVICE DATE: 08/13/17 EXAM TYPE: RAD - XRY-PORTABLE CHEST XRAY EXAMINATION: XR PORTABLE CHEST CLINICAL INFORMATION: Check ET tube placement COMPARISON: Previous chest x-rays most recent from yesterday TECHNIQUE: Portable frontal view of the chest was obtained. FINDINGS: The cardiac silhouette is enlarged but stable. There are median sternotomy wires. There is a left subclavian pacemaker. The leads are not optimally visualized. There is a right upper extremity PICC line with tip projecting over the SVC. There is an endotracheal tube with tip 2.8 cm above the kika. There is a nasogastric tube. The tip is not seen. There is atelectasis/consolidation at the lung bases. Some of this may be overestimated due to light film technique. The lungs are otherwise clear. There is no significant pleural effusion. There is no pneumothorax. IMPRESSION: Stable enlargement of the cardiac silhouette. Atelectasis/consolidation at the lung bases. This may be overestimated due to light film technique. Nasogastric tube tip and pacemaker/defibrillator lead is not visualized. ET tube and right upper extremity PICC line in satisfactory position. DICTATED BY: Emma Jefferson MD DATE/TIME DICTATED:08/13/17717 DANCER OR CHOREOGRAPHER:AMEE DATE/TIME TRANSCRIBED:08/13/17717 CONFIDENTIAL, DO NOT COPY WITHOUT APPROPRIATE AUTHORIZATION. <Electronically signed in Other Vendor System> SIGNED BY: Emma Jefferson MD [id number] Impression/Plan Impression/Problem List Impression: This is a 76-year-old male with past medical history of CAD with HFrEF, A. fib, AICD, previous infection of the hip with prolonged antibiotic, history of peptic ulcer disease, diabetes, nephrolithiasis who was transferred to the ICU for perforation of the duodenum with septic shock S/P repair with patch. Repeated CT of the abdomen performed on 07/15 revealed free air/extravasation of contrast into the peritoneal cavity and he was taken to the OR for ex-lap and had re- repair of duodenal ulcer with Fabrizio patch. He remained intubated with subsequent wean trials and extubated on 07/23/2017, unfortunately he was re- intubated on 07/26/2017 due to desaturations and respiratory failure. Pt con't to be intubated with [address] PLAN #Septic shock secondary to perforated duodenal ulcer A/P Fabrizio patch: Micro is shoiwng the body cx with VRE and respiratory cx with VRE. Repeat sputum cx on shows GPC and mold. A repeat swab of the draining wound on abdomen shows E. coli and Beta strep Group B. BCx negative to date. WBC today at 7.4 but with 15 bands. Pt afebrile. The GABRIELA drain (x2) output is still considerable at 450cc every 8 hrs. Per surgery there is no plan for repeat OR intervention. However, pt appears to have large amounts of purulence from wound under incision. Negative aspergillus antibody. H.pylori negative. With respect to increased WBC and bandemia, repeated CT scan was done that showed relatively increased fluid collection in the abdominal wall. Patient was not recieving any antibiotics. ID was contacted, Dr Bocanegra recommended to hold off antibiotics and get sood culture. Surgical PA was contacted (Abimbola), informed that no surgical intervention is not needed at this point and need to consult IR for drainage. * D/C Meropenem 07/30 and D/C Cubicin Day 08/01. He got 14 days of abx * Follow-up on pending repeat culture results * Continue on fentanyl for sedation. * Solu-Cortef 25mg IV q12 per Endo on 08/04 * Continue Protonix IV 40 mg twice a day * Continue octreotide drip-Plan is to continue drip for duration of intubation * Surgery following * STOP re-feeding the GABRIELA drain succus 08/02 * Continue vent weaning trials * IV lasix 40mg x1. * D/C Fentanyl drip and start pt on Fentanyl PRN * Follow sood culture * Contact IR tomorrow for considering drainage History of PAF on Tikosyn * Continue to hold the Tikosyn * Appreciate cardiology recs DM: * Goal glucose between [id number]. Today elevated over 300. * Appreciate endocrinology recommendation USMAN: RESOLVED. The renal injury is most likely secondary to ATN due to decreased renal perfusion from septic shock. * Appreciate nephrology recommendation * Titrate vent Hyponatremia: RESOLVED. Pt has Na 140 08/02 and 131 08/03. Two repeat Na at 137. Likely Lab error. Guarded prognosis Full code Nothing by mouth DVT prophylaxis with subcutaneous heparin Problem List: 1. Duodenal ulcer with perforation 2. USMAN (acute kidney injury) Pain Ratin Tomorrow's Labs & Rationales: CBC ICU Plan DVT/Prophylaxis: mechanical, pharmacological Trey Celeste MD 08/13/17 0903: Attending MD Review Statement Attending Sign Off Attending Cosign Statement: I have: examined this patient, reviewed avalbl EMR data, personally reviewd images, discussd w/resident/PA/STUDENT ADMISSIONS CLERK, discussed mgmt plan w/riya, discussed mgmt plan w/CM, discussed mgmt plan w/pt, agreed w/resident/PA/STUDENT ADMISSIONS CLERK, amended to note. Other Findings: Trey Sharma M.D. have examined this patient, reviewed available EMR data, personally reviewed images, discussed with resident/PA/STUDENT ADMISSIONS CLERK, discussed management plan with housestaff and nursing staff, discussed managment plan all of healthcare providers, discussed management plan with patient and/or family, agreed with resident/PA/STUDENT ADMISSIONS CLERK. The past history and parts of the chart have been autopopulated. Impression 76-year-old man * hypoxemic respiratory failure likely secondary to mucous plugging * resolved septic shock * duodenal ulcer that was perforated, multiple drains, still draining, gabriela removed * Hx of atrial flutter Plan Respiratory -DNR/DNI -continued goals of care discussions by Dr. Douglas on Tuesday -f/u cxr/abgs ID -f/u ID recs CVS -hemodynamically stable -off vasopressors -rate is controlled Heme -monitor cbc, coags Metabolic -ins/outs -monitor electrolytes Alimentary -tube feeds -octreotide gtt -f/u surgery Neuro -sedation as necessary DVT prophylaxis at all times TTS 35 min
[2017-08-13 12:00] VITALS: BP 106/54
--- NOTE | 2017-08-13 12:10 | PN- General Surgery ---
Surgical Brief Attending Note Brief Attending Note: The WILLEM draining his enteric contents was dislodged for unknown reasons. Probably during turning as usual. Unfortunately it was controlling the enteric contents. There is now bilious output from WILLEM site, controlled by urostomy bag. The other WILLEM was not draining but pouring out around the drain and excoriating his skin. I took that WILLEM out and will place another bag. It is unclear if the output from skin is completely controlling the duodenal leak in the form of duodenal fistula. Will need repeat CT without oral contrast on Tuesday unless he deteriorates over the weekend. IR drainage of any undrained collections. Surgical intervention at this point of recovery from last operation would be frought with disaster.
--- NOTE | 2017-08-13 13:33 | PN- Diabetes ---
Assessment/Plan Assessment: 76-year-old male with Hx of CAD with low ejection fraction, atrial fibrillation, AICD, previous infection of hip with prolonged antibiotic, history of peptic ulcer disease, diabetes and renal stone, was admitted for perforation of duodenum now with septic shock in ICU. He was on 3 pressors, TPN, octreotide drip and bicarb drip. His BP remained low and stress dose of steroid was initiated despite his am cortisol was 24.8. Patient is still on octreotide drip. Patient was re-intubated on 07/26/2017. He has been off on TPN. Currently he is on tube feeding with Vital 85 mL per hour. Levemir was increased to 20 units twice a day and Novolog coverage every 4 hours was adjusted multiple times. The patient's most recent blood sugars were 187, 130, 148 and 117. Hydrocortisone was futher decreased to 25 mg iv daily. Plan: 1. it is okay to discontinue Hydrocortisone today; 2. decrease Levemir to 17 units twice a day; 3. continue the current Novolog coverage every 4 hours; 4. replete K; 5. monitor FSGs, electrolytes and vital signs. will follow Subjective Subjective: patient remains intubated. Objective Last 24 Hrs of Vital Signs/I&O Vital Signs Date Time Temp Pulse Resp B/P B/P Pulse O2 O2 Flow FiO2 Mean Ox Delivery Rate 08/13 1200 99 Ventilator 40% 08/13 1200 98.4 69 11 106/54 99 Ventilator 40% 08/13 1149 40 08/13 0905 71 108/50 08/13 0843 40 08/13 0800 94 Ventilator 40% 08/13 0800 98.6 69 23 108/56 94 Ventilator 40% 08/13 0622 40 08/13 0400 98 Ventilator 40% 08/13 0313 40 08/13 0042 40 08/13 0000 98 Ventilator 40% 08/13 0000 97.4 73 24 114/70 98 Ventilator 40% 08/12 2217 40 08/12 2136 69 109/56 08/12 2023 40 08/12 2000 97 Ventilator 40% 08/12 1712 40 08/12 1600 Ventilator 40% 08/12 1600 99.0 70 22 110/60 95 Ventilator 40% 08/12 1450 40 Intake & Output 08/13 1600 08/13 0800 12 0000 Intake Total 1630 2339 Output Total 880 1630 Balance 750 709 Intake, IV 635 527 Intake, Tube 615 522 Feeding Intake, Tube 380 1290 Irrigant Number 2 Bowel Movements Output, 300 1140 Drainage Output, 50 40 Gastric Drainage Output, Urine 530 450 Findings Pertinent Lab/Les Results: Laboratory Tests 08/13 08/13 0550 0342 Blood Gas pH (7.35 - 7.45 PH) 7.50 H pCO2 (35 - 45 TORR) 34 L pO2 (80 - 100 TORR) 75 L HCO3 (21 - 28 MEQ/L) 26 ABG O2 Sat (Measured) (>96.0 %) 94.0 L P-50 (Temp Corrected) N Carboxyhemoglobin (1.5 - 5.0 %) 0.2 L O2 Concentration % .40 Respiration Rate (BPM) 10 O2 Delivery Method VENT Vent Mode A/C Expiratory Pressure (CMH2O/P) 5 Tidal Volume (CC) 500 Chemistry Sodium (137 - 145 mmol/L) 139 Potassium (3.5 - 5.1 mmol/L) 3.3 L Chloride (98 - 107 mmol/L) 104 Carbon Dioxide (22 - 30 mmol/L) 28 Anion Gap (5 - 16) 8 BUN (9 - 20 mg/dL) 26 H Creatinine (0.7 - 1.2 mg/dL) 0.7 Estimated GFR (>60 ml/min) > 60 Glucose (65 - 99 mg/dL) 120 H Calcium (8.4 - 10.2 mg/dL) 7.9 L Phosphorus (2.5 - 4.5 mg/dL) 3.4 Magnesium (1.6 - 2.3 mg/dL) 1.7 Total Bilirubin (0.2 - 1.3 mg/dL) 0.4 AST (17 - 59 U/L) 47 ALT (21 - 72 U/L) 80 H Albumin (3.5 - 5.0 g/dL) 2.1 L Hematology CBC w Diff NO MAN DIFF REQ WBC (4.8 - 10.8 /CUMM) 12.5 H RBC (4.70 - 6.10 /CUMM) 3.01 L Hgb (14.0 - 18.0 G/DL) 8.7 L Hct (42 - 52 %) 27.2 L MCV (80.0 - 94.0 FL) 90.4 MCH (27.0 - 31.0 PG) 29.0 RDW (11.5 - 14.5 %) 20.8 H Plt Count (130 - 400 /CUMM) 235 MPV (7.4 - 10.4 FL) 7.8 Gran % (42.2 - 75.2 %) 65.2 Lymphocytes % (20.5 - 51.1 %) 28.1 Monocytes % (1.7 - 9.3 %) 6.0 Eosinophils % (0 - 5 %) 0.5 Basophils % (0.0 - 2.0 %) 0.2 Absolute Granulocytes (1.4 - 6.5 /CUMM) 8.1 H Absolute Lymphocytes (1.2 - 3.4 /CUMM) 3.5 H Absolute Monocytes (0.10 - 0.60 /CUMM) 0.8 H Absolute Eosinophils (0.0 - 0.7 /CUMM) 0.1 Absolute Basophils (0.0 - 0.2 /CUMM) 0 PUBS MCHC (33.0 - 37.0 G/DL) 32.1 L Miscellaneous Phlebotomy Draw Site LEFT RADIAL
--- NOTE | 2017-08-13 14:04 | PN- Cardiology ---
Subjective Subjective: the patient remains intubated and sedated. No obvious new changes from a cardiac perspective. Objective Vital Signs and I&Os Vital Signs Date Time Temp Pulse Resp B/P B/P Pulse O2 O2 Flow FiO2 Mean Ox Delivery Rate 08/13 1200 99 Ventilator 40% 08/13 1200 98.4 69 11 106/54 99 Ventilator 40% 08/13 1149 40 08/13 0905 71 108/50 08/13 0843 40 08/13 08 94 Ventilator 40% 08/13 08 98.6 69 23 108/56 94 Ventilator 40% 08/13 0622 40 08/13 0400 98 Ventilator 40% 08/13 0313 40 08/13 0042 40 08/13 0000 98 Ventilator 40% 08/13 0000 97.4 73 24 114/70 98 Ventilator 40% 08/12 2217 40 08/12 2136 69 109/56 08/12 2023 40 08/12 2000 97 Ventilator 40% 08/12 1712 40 08/12 1600 Ventilator 40% 08/12 1600 99.0 70 22 110/60 95 Ventilator 40% 08/12 1450 40 Intake & Output 08/13 1600 08/13 0800 12/ 0000 12 1600 08/12 0800 08/12 0000 Intake Total 1630 2339 1761 1395 Output Total 880 1630 655 925 Balance 434 344 2805 470 Intake, IV 635 527 349 531 Intake, Oral 0 Intake, Tube 745 037 3362 439 Feeding Intake, Tube 380 1290 200 425 Irrigant Number 2 1 3 Bowel Movements Output, 300 1140 195 210 Drainage Output, 50 40 60 75 Gastric Drainage Output, Urine 530 450 400 640 Physical Exam: Well-developed, morbidly obese elderly male who remains intubated and sedated. Vital signs: See above. Neck: No JVD, no bruits. Lungs: Clear to auscultation bilaterally. Heart: S1, S2 (regular) grade 1-2/6 systolic murmur. Abdomen: Nontender, positive bowel sounds, distended. Purulent discharge from incision site that is packed. Significant output WILLEM drains. Extremities: Extremities with 1+ edema. Current Medications: Current Medications Sig/Buck Start time Last Medication Dose Route Stop Time Status Admin Acetaminophen 1,000 MG Q6P PRN 07/16 0530 AC 07/20 N/A 1 UNIT IV 0659 Albuterol Sulfate 3 ML EVERY 4 HRS/AWAKE 07/27 0800 AC 08/13 INH 1233 Ampicillin Sodium/ 3,000 MG Q6H 08/10 2300 AC 08/13 Sulbactam Sodium IV 1004 Sodium Chloride 100 ML Budesonide/ 2 PUF BID 07/26 1056 AC 08/13 Formoterol Fumarate INH 0956 Carvedilol 3.125 MG BID 07/28 1000 AC 08/13 PO 0905 Ciprofloxacin 400 MG Q12H 08/11 0500 AC 08/13 Dextrose/Water 200 ML IV 0415 Fentanyl Citrate 25 MCG Q4P PRN 08/05 2130 AC 08/07 IV 0406 Glycerin 2 SPRAY Q2P PRN 08/10 0445 AC 08/10 PO 2124 Heparin Sodium 5,000 UNIT Q8 08/05 1400 AC 08/13 (Porcine) SC 0555 Hydrocortisone 25 MG DAILY 08/12 1000 DC 08/13 Sodium Succinate IV 0859 Insulin Aspart 0 Q4 07/25 1000 AC 08/13 SC 1004 Insulin Detemir 17 UNITS BID 08/13 220 AC SC Insulin Detemir 20 UNITS BID 07/30 1000 DC 08/13 SC 0946 Magnesium Oxide 400 MG ONE ONE 08/13 0600 DC 08/13 PO 08/13 0601 0645 Octreotide Acetate 500 MCG Q20H 07/15 1400 AC 08/13 Dextrose/Water 500 ML IV 0301 Pantoprazole Sodium 40 MG BID 07/10 1016 AC 08/13 IV 0859 Potassium Chloride 40 MEQ ONCE ONE 08/13 0645 DC 08/13 PO 08/13 0646 0645 Potassium Chloride 20 MEQ ONCE ONE 08/13 06 CAN PO 08/13 0601 Potassium Chloride 20 MEQ BID 08/10 2200 AC 08/13 PO 0900 Results Last 48 Hrs of Labs/Mics: Laboratory Tests 08/13/17 0550: pH 7.50 H, pCO2 34 L, pO2 75 L, HCO3 26, ABG O2 Sat (Measured) 94.0 L, P-50 (Temp Corrected) N, Carboxyhemoglobin 0.2 L, O2 Concentration % .40, Respiration Rate 10, O2 Delivery Method VENT, Vent Mode A/C, Expiratory Pressure 5, Tidal Volume 500, Phlebotomy Draw Site LEFT RADIAL 08/13/17 0342: Anion Gap 8, Estimated GFR > 60, Glucose 120 H, Calcium 7.9 L, Phosphorus 3.4, Magnesium 1.7, Total Bilirubin 0.4, AST 47, ALT 80 H, Albumin 2.1 L, CBC w Diff NO MAN DIFF REQ, RBC 3.01 L, MCV 90.4, MCH 29.0, RDW 20.8 H, MPV 7.8, Gran % 65.2, Lymphocytes % 28.1, Monocytes % 6.0, Eosinophils % 0.5, Basophils % 0.2, Absolute Granulocytes 8.1 H, Absolute Lymphocytes 3.5 H, Absolute Monocytes 0.8 H, Absolute Eosinophils 0.1, Absolute Basophils 0, PUBS MCHC 32.1 L 08/12/17 1205: pH 7.52 H, pCO2 30 L, pO2 88, HCO3 24, ABG O2 Sat (Measured) 97.0, P-50 (Temp Corrected) YES, Carboxyhemoglobin 0.3 L, O2 Concentration % 40%, Temperature 97.4, O2 Delivery Method VENT, Vent Mode CPAP, Expiratory Pressure 5, Pressure Support 6, Phlebotomy Draw Site LEFT RADIAL 08/12/17 0400: Anion Gap 9, Estimated GFR > 60, Glucose 138 H, Calcium 7.9 L, Phosphorus 3.5, Magnesium 1.8, Total Bilirubin 0.5, AST 85 H, ALT 109 H, Albumin 2.2 L, CBC w Diff NO MAN DIFF REQ, RBC 3.11 L, MCV 89.2, MCH 29.6, RDW 20.3 H, MPV 8.3, Gran % 64.5, Lymphocytes % 27.3, Monocytes % 7.7, Eosinophils % 0.2, Basophils % 0.3, Absolute Granulocytes 7.5 H, Absolute Lymphocytes 3.2, Absolute Monocytes 0.9 H, Absolute Eosinophils 0, Absolute Basophils 0, PUBS MCHC 33.2 Assessment/Plan Assessment/Plan Assessment: 1. Coronary artery disease 2. Ischemic cardiomyopathy 3. Paroxysmal atrial fibrillation 4. Ventricular tachycardia 5. Perforated duodenal ulcer, status post repair Recommendations: -In the absence of any new major issues, I will continue current management for now -Continue to monitor potassium, magnesium, etc. -continue management otherwise as per the critical care team. -As noted by Dr. Sanchez, consider amiodarone if any recurrence of any significant ventricular arrhythmias. Continue telemetry? Yes
[2017-08-13 16:00] VITALS: BP 112/60
[2017-08-14 05:13] LABS: ABSOLUTE BASOPHIL COUNT 0 /CUMM (0.0-0.2); ABSOLUTE EOSINOPHIL COUNT 0.1 /CUMM (0.0-0.7); ABSOLUTE GRANULOCYTE CT 6.7 /CUMM (1.4-6.5); ABSOLUTE LYMPH COUNT 3.7 /CUMM (1.2-3.4); ABSOLUTE MONOCYTE COUNT 0.8 /CUMM (0.10-0.60); BASOPHIL % 0.4 % (0.0-2.0); EOSINOPHIL % 0.8 % (0-5); GRANULOCYTE % 59.2 % (42.2-75.2); HEMATOCRIT 27.8 % (42-52); MEAN CORPUSCULAR HGB 29.9 PG (27.0-31.0); MEAN CORPUSCULAR VOLUME 90.6 FL (80.0-94.0); MEAN PLATELET VOLUME 7.8 FL (7.4-10.4); PLATELET COUNT 252 /CUMM (130-400); RED BLOOD CELL CT 3.07 /CUMM (4.70-6.10); WHITE BLOOD CELL COUNT 11.4 /CUMM (4.8-10.8)
[2017-08-14 05:22] LABS: PT 13.5 SEC (9.4-12.5); PTT 29 SEC (25-37)
[2017-08-14 06:00] VITALS: BP 98/50
[2017-08-14 08:00] VITALS: BP 118/56
--- NOTE | 2017-08-14 08:54 | PN- Infect Dx ---
Subjective Subjective: Afebrile, now off steroids, without complaints. One WILLEM drain apparently became dislodged and the second one was removed yesterday, with placement of urostomy bags for drainage. Loose, watery stools have been reported for the last 2 days. Objective Last 24 Hrs of Vital Signs/I&O Vital Signs Date Time Temp Pulse Resp B/P B/P Pulse O2 O2 Flow FiO2 Mean Ox Delivery Rate 08/14 0826 35 08/14 0800 97 Ventilator 35% 08/14 0656 35 08/14 0600 97.9 68 23 98/50 98 Ventilator 35% 08/14 0400 95 Ventilator 35% 08/14 0349 35 08/14 0110 35 08/14 0000 98 Ventilator 35% 08/13 2251 35 08/13 2158 69 24 113/55 08/13 2030 96 Ventilator 35% 08/13 1907 35 08/13 1634 35 08/13 1600 100 Ventilator 40% 08/13 1600 97.5 69 26 112/60 100 Ventilator 40% 08/13 1431 40 08/13 1200 99 Ventilator 40% 08/13 1200 98.4 69 11 106/54 99 Ventilator 40% 08/13 1149 40 08/13 0905 71 108/50 Intake & Output 08/14 1600 08/14 0800 08/14 0000 Intake Total 1529 1380 Output Total 670 590 Balance 859 790 Intake, IV 770 500 Intake, Tube 609 680 Feeding Intake, Tube 150 200 Irrigant Number 1 Bowel Movements Output, 20 Drainage Output, Other 150 Output, Urine 500 590 Physical Exam Other Physical Findings: He is lethargic but arousable, on the ventilator, in no acute distress Lungs are clear Heart regular rhythm with no murmur Abdomen is distended, nontender with positive bowel sounds; urostomy bags in place with fecal appearing drainage; incision with purulent appearing fluid expressed from the inferior aspect, with positive bowel sounds; left abdominal catheter with 20 mL output yesterday and 20 mL overnight Extremities no cyanosis, clubbing or edema; PICC remains in place in the right upper extremity with no inflammation at the site Duvall catheter remains in place Results Last 24 Hours of Lab Results: Laboratory Tests 08/14 0445 Chemistry Sodium (137 - 145 mmol/L) 140 Potassium (3.5 - 5.1 mmol/L) 3.6 Chloride (98 - 107 mmol/L) 105 Carbon Dioxide (22 - 30 mmol/L) 26 Anion Gap (5 - 16) 9 BUN (9 - 20 mg/dL) 23 H Creatinine (0.7 - 1.2 mg/dL) 0.7 Estimated GFR (>60 ml/min) > 60 Glucose (65 - 99 mg/dL) 131 H Calcium (8.4 - 10.2 mg/dL) 8.0 L Phosphorus (2.5 - 4.5 mg/dL) 3.1 Magnesium (1.6 - 2.3 mg/dL) 1.8 Total Bilirubin (0.2 - 1.3 mg/dL) 0.4 AST (17 - 59 U/L) 64 H ALT (21 - 72 U/L) 80 H Albumin (3.5 - 5.0 g/dL) 2.1 L Coagulation PT (9.4 - 12.5 SEC) 13.5 H INR (0.90 - 1.17) 1.29 H APTT (25 - 37 SEC) 29 Hematology CBC w Diff MAN DIFF ORDERED WBC (4.8 - 10.8 /CUMM) 11.4 H RBC (4.70 - 6.10 /CUMM) 3.07 L Hgb (14.0 - 18.0 G/DL) 9.2 L Hct (42 - 52 %) 27.8 L MCV (80.0 - 94.0 FL) 90.6 MCH (27.0 - 31.0 PG) 29.9 RDW (11.5 - 14.5 %) 21.0 H Plt Count (130 - 400 /CUMM) 252 MPV (7.4 - 10.4 FL) 7.8 Gran % (42.2 - 75.2 %) 59.2 Lymphocytes % (20.5 - 51.1 %) 32.9 Monocytes % (1.7 - 9.3 %) 6.7 Eosinophils % (0 - 5 %) 0.8 Basophils % (0.0 - 2.0 %) 0.4 Absolute Granulocytes (1.4 - 6.5 /CUMM) 6.7 H Segmented Neutrophils (42.2 - 75.2 %) 57 Band Neutrophils (0.0 - 5.0 %) 8 H Absolute Lymphocytes (1.2 - 3.4 /CUMM) 3.7 H Lymphocytes (20.5 - 51.1 %) 25 Monocytes (1.7 - 9.3 %) 8 Absolute Monocytes (0.10 - 0.60 /CUMM) 0.8 H Eosinophils (0 - 5.0 %) 2 Absolute Eosinophils (0.0 - 0.7 /CUMM) 0.1 Absolute Basophils (0.0 - 0.2 /CUMM) 0 Platelet Estimate (ADEQUATE) ADEQUATE Polychromasia 1+ Hypochromic-Microcytic 1+ Poikilocytosis 1+ Anisocytosis 1+ Stomatocytes 1+ PUBS MCHC (33.0 - 37.0 G/DL) 33.0 Last 24 Hours of Les Results: Stool C. difficile August 13 pending Recent Imaging Studies: Chest x-ray August 14, personally reviewed, reveals bibasilar densities without change Assessment/Plan Impression: Overall status remains poor, though stable, with temperatures remaining normal and white blood cell count only minimally elevated now 6 days status post drainage of a left abdominal abscess secondary to Enterobacter, with minimal drainage reported over the last few days. He remains on Ciprofloxacin for this as well as Unasyn for the Staph aureus isolated from the sputum culture, though suspect this represents colonization, with his stable respiratory status and chest x-ray. He is now 36 days status post surgery for the perforated duodenal ulcer and 29 days status post an unsuccessful duodenal repair for the persistent enteric leak, with the WILLEM drains now out but with fecal appearing material from the ostomies. He has had recent diarrhea and C. difficile is to be ruled out. Suggestion: 1. Follow-up stool for C. difficile 2. Repeat CT of the abdomen and pelvis in the a.m. August 15 3. Continue Unasyn and Ciprofloxacin
--- NOTE | 2017-08-14 09:43 | PN- Resident CRCU ---
Solitario RODRÍGUEZ,Gisel 08/14/17 0943: Subjective HPI/CRCU Issues: Intubated Duodenal perf Intra-abdominal collections 24 Hour Events: 57/RR 27/(88/53) 97% ACVC: TV 500 FIO2 35 PEEP 5 Now both GABRIELA drains are out. Second one removed this AM by Dr. Trimble. Ostomy bags now covering site. Objective Vital Signs & I&O Last 8 Hrs of Vitals and I&O: Intake & Output 08/14 1600 Intake Total 1247 Output Total 440 Balance 807 Intake, IV 329 Intake, Tube 768 Feeding Intake, Tube 150 Irrigant Number 2 Bowel Movements Output, 40 Drainage Output, Urine 400 Exam General Appearance: no apparent distress, intubated, obese Head: atraumatic, normal appearance Neck: normal inspection Respiratory: crackles, rhonchi Cardiovascular: regular rate/rhythm Gastrointestinal: gabriela drains removed. ostomy bag now covering site. with dark green drainage in bag. midline incision with bandage in place. clean and intact Extremities: pedal edema Weaning Parameters NIF: 25 Minute Volume: 14.1 Resp rate: 35 Vt: 403 Heart Rate: 69 Weaning Schedule Start Time: 2100 Minute Volume: 10.5 Resp Rate: 24 Vt: 438 Heart Rate: 69 End Time: 2300 Minute Volume: 11.5 Resp Rate: 26 Vt: 446 Heart Rate: 69 Impression/Plan Impression/Problem List Impression: This is a 76-year-old male with past medical history of CAD with HFrEF, A. fib, AICD, previous infection of the hip with prolonged antibiotic, history of peptic ulcer disease, diabetes, nephrolithiasis who was transferred to the ICU for perforation of the duodenum with septic shock S/P repair with patch. Repeated CT of the abdomen performed on 07/15 revealed free air/extravasation of contrast into the peritoneal cavity and he was taken to the OR for ex-lap and had re- repair of duodenal ulcer with Fabrizio patch. He remained intubated with subsequent wean trials and extubated on 07/23/2017, unfortunately he was re- intubated on 07/26/2017 due to desaturations and respiratory failure. Pt con't to be intubated with [address] PLAN #Septic shock secondary to perforated duodenal ulcer A/P Fabrizio patch: Micro is shoiwng the body cx with VRE and respiratory cx with VRE. Repeat sputum cx on shows GPC and mold. A repeat swab of the draining wound on abdomen shows E. coli and Beta strep Group B. BCx negative to date. WBC 11.4 with 8 bands. Negative aspergillus antibody. H.pylori negative. Aug 08 body cx growing enterobacter aerogenes. Respiratory cx on 08/08 enterobacter aerogenes and staph aureus. * GABRIELA drains x 2 D/C. Wick in place. Ostomy bags around drain sites. * CT ABDOMEN today * D/C Meropenem 07/30 and D/C Cubicin Day 08/01. Currently on Cipro and Ampicillin. * Follow-up on pending repeat culture results * Continue on PRN fentanyl for sedation. * Solu-Cortef 25mg IV q12 per Endo on 08/04 * Continue Protonix IV 40 mg twice a day * Continue octreotide drip-Plan is to continue drip for duration of intubation * Surgery following * Continue vent weaning trials History of PAF on Tikosyn * Continue to hold the Tikosyn * Appreciate cardiology recs * Con't Coreg DM: * Goal glucose between [id number]. Today at 131 this AM. * Appreciate endocrinology recommendation * Con't FS * Con't RISS and Levemir USMAN: RESOLVED. Today Bun 23 and Cr.7. Hyponatremia: RESOLVED. Guarded prognosis Full code Nothing by mouth DVT prophylaxis with subcutaneous heparin Problem List: 1. Peritonitis Pain Ratin Tomorrow's Labs & Rationales: icu cbc Plan DVT/Prophylaxis: mechanical, pharmacological Booker RODRÍGUEZ,Trey 08/14/17 0951: Objective Current Medications: Current Medications Sig/Buck Start time Last Medication Dose Route Stop Time Status Admin Acetaminophen 1,000 MG Q6P PRN 07/16 0530 AC 07/20 N/A 1 UNIT IV 0659 Albuterol Sulfate 3 ML EVERY 4 HRS/AWAKE 07/27 0800 AC 08/15 INH 0917 Ampicillin Sodium/ 3,000 MG Q6H 08/10 2300 AC 08/15 Sulbactam Sodium IV 0449 Sodium Chloride 100 ML Budesonide/ 2 PUF BID 07/26 1056 AC 08/15 Formoterol Fumarate INH 0917 Carvedilol 3.125 MG BID 07/28 1000 AC 08/14 PO 2125 Ciprofloxacin 400 MG Q12H 08/11 0500 AC 08/15 Dextrose/Water 200 ML IV 0524 Fentanyl Citrate 100 MCG .STK-MED ONE 08/14 1215 DC IM 08/14 1216 Fentanyl Citrate 25 MCG Q4P PRN 08/05 2130 AC 08/14 IV 1217 Glycerin 2 SPRAY Q2P PRN 08/10 0445 AC 08/10 PO 2124 Heparin Sodium 5,000 UNIT Q8 08/05 1400 AC 08/15 (Porcine) SC 0643 Insulin Aspart 0 Q4 07/25 1000 AC 08/15 SC 0642 Insulin Detemir 17 UNITS BID 08/13 2200 AC 08/14 SC 2206 Magnesium Oxide 400 MG ONE ONE 08/15 0845 DC PO 08/15 0846 Octreotide Acetate 500 MCG Q20H 07/15 1400 AC 08/14 Dextrose/Water 500 ML IV 2156 Pantoprazole Sodium 40 MG BID 07/10 1016 AC 08/14 IV 2140 Phosphate 250 MG ONCE ONE 08/15 0845 DC PO 08/15 0846 Potassium Chloride 20 MEQ ONCE ONE 08/15 0845 DC PO 08/15 0846 Potassium Chloride 20 MEQ BID 08/10 2200 AC 08/14 PO 2138 Attending MD Review Statement Attending Sign Off Attending Cosign Statement: I have: examined this patient, reviewed avalbl EMR data, personally reviewd images, discussd w/resident/PA/MAINTENANCE HELPER UTILITY ENGINEER, discussed mgmt plan w/riya, discussed mgmt plan w/CM, discussed mgmt plan w/pt, agreed w/resident/PA/MAINTENANCE HELPER UTILITY ENGINEER, amended to note. Other Findings: I, Trey Celeste M.D. have examined this patient, reviewed available EMR data, personally reviewed images, discussed with resident/PA/MAINTENANCE HELPER UTILITY ENGINEER, discussed management plan with housestaff and nursing staff, discussed managment plan all of healthcare providers, discussed management plan with patient and/or family, agreed with resident/PA/MAINTENANCE HELPER UTILITY ENGINEER. The past history and parts of the chart have been autopopulated. Impression 76-year-old man * hypoxemic respiratory failure likely secondary to mucous plugging * resolved septic shock * duodenal ulcer that was perforated, multiple drains, still draining, gabriela removed * Hx of atrial flutter Plan Respiratory -DNR/DNI -continued goals of care discussions by Dr. Douglas on Tuesday -f/u cxr/abgs ID -f/u ID recs CVS -hemodynamically stable -off vasopressors -rate is controlled Heme -monitor cbc, coags Metabolic -ins/outs -monitor electrolytes Alimentary -tube feeds -octreotide gtt -f/u surgery Neuro -sedation as necessary DVT prophylaxis at all times TTS 35 min
--- NOTE | 2017-08-14 10:59 | PN- Cardiology ---
Subjective Subjective: The patient remains intubated and sedated. Changes from a cardiac perspective. No significant arrhythmias. Paced rhythm. Objective Vital Signs and I&Os Vital Signs Date Time Temp Pulse Resp B/P B/P Pulse O2 O2 Flow FiO2 Mean Ox Delivery Rate 08/14 0907 70 98/53 08/14 0826 35 08/14 08 97 Ventilator 35% 08/14 08 97.5 69 17 118/56 97 Ventilator 35% 08/14 0656 35 08/14 06 97.9 68 23 98/50 98 Ventilator 35% 08/14 0400 95 Ventilator 35% 08/14 0349 35 08/14 0110 35 08/14 0000 98 Ventilator 35% 08/13 2251 35 08/13 2158 69 24 113/55 08/13 2030 96 Ventilator 35% 08/13 1907 35 08/13 1634 35 08/13 1600 100 Ventilator 40% 08/13 1600 97.5 69 26 112/60 100 Ventilator 40% 08/13 1431 40 08/13 1200 99 Ventilator 40% 08/13 1200 98.4 69 11 106/54 99 Ventilator 40% 08/13 1149 40 Intake & Output 08/14 1600 08/14 0800 08/14 0000 08/13 1600 08/13 0800 08/13 0000 Intake Total 1529 1380 1371 1630 2339 Output Total 670 590 170 155 2973 Balance 859 790 481 750 709 Intake, IV 770 500 368 635 527 Intake, Tube 609 680 548 615 522 Feeding Intake, Tube 150 200 590 538 8018 Irrigant Number 1 2 2 Bowel Movements Output, 20 479 870 9645 Drainage Output, 50 40 Gastric Drainage Output, Other 150 Output, Urine 500 590 500 530 450 Physical Exam: Well-developed, morbidly obese elderly male who remains intubated and sedated. Vital signs: See above. Neck: No JVD, no bruits. Lungs: Clear to auscultation bilaterally. Heart: S1, S2 (regular) grade 1-2/6 systolic murmur. Abdomen: Unchanged Extremities: Extremities with 1+ edema. Current Medications: Current Medications Sig/Buck Start time Last Medication Dose Route Stop Time Status Admin Acetaminophen 1,000 MG Q6P PRN 07/16 0530 AC 07/20 N/A 1 UNIT IV 0659 Albuterol Sulfate 3 ML EVERY 4 HRS/AWAKE 07/27 800 AC 08/14 INH 0821 Ampicillin Sodium/ 3,000 MG Q6H 08/10 2300 AC 08/14 Sulbactam Sodium IV 0518 Sodium Chloride 100 ML Budesonide/ 2 PUF BID 07/26 1056 AC 08/14 Formoterol Fumarate INH 0822 Carvedilol 3.125 MG BID 07/28 1000 AC 08/14 PO 0907 Ciprofloxacin 400 MG Q12H 08/11 0500 AC 08/14 Dextrose/Water 200 ML IV 0605 Fentanyl Citrate 25 MCG Q4P PRN 08/05 2130 AC 08/07 IV 0406 Glycerin 2 SPRAY Q2P PRN 08/10 0445 AC 08/10 PO 2124 Heparin Sodium 5,000 UNIT Q8 08/05 1400 AC 08/14 (Porcine) SC 0659 Hydrocortisone 25 MG DAILY 08/12 1000 DC 08/13 Sodium Succinate IV 0859 Insulin Aspart 0 Q4 07/25 1000 AC 08/14 SC 1029 Insulin Detemir 17 UNITS BID 08/13 2200 AC 08/14 SC 1029 Insulin Detemir 20 UNITS BID 07/30 1000 DC 08/13 SC 0946 Octreotide Acetate 500 MCG Q20H 07/15 1400 AC 08/13 Dextrose/Water 500 ML IV 2158 Pantoprazole Sodium 40 MG BID 07/10 1016 AC 08/14 IV 0906 Potassium Chloride 20 MEQ BID 08/10 2200 AC 08/14 PO 0906 Results Last 48 Hrs of Labs/Mics: Laboratory Tests 08/14/17 0445: Anion Gap 9, Estimated GFR > 60, Glucose 131 H, Calcium 8.0 L, Phosphorus 3.1, Magnesium 1.8, Total Bilirubin 0.4, AST 64 H, ALT 80 H, Albumin 2.1 L, PT 13.5 H, INR 1.29 H, APTT 29, CBC w Diff MAN DIFF ORDERED, RBC 3.07 L, MCV 90.6, MCH 29.9, RDW 21.0 H, MPV 7.8, Gran % 59.2, Lymphocytes % 32.9, Monocytes % 6.7, Eosinophils % 0.8, Basophils % 0.4, Absolute Granulocytes 6.7 H, Segmented Neutrophils 57, Band Neutrophils 8 H, Absolute Lymphocytes 3.7 H, Lymphocytes 25, Monocytes 8, Absolute Monocytes 0.8 H, Eosinophils 2, Absolute Eosinophils 0.1, Absolute Basophils 0, Platelet Estimate ADEQUATE, Polychromasia 1+, Hypochromic-Microcytic 1+, Poikilocytosis 1+, Anisocytosis 1+, Stomatocytes 1+, PUBS MCHC 33.0 08/13/17 0550: pH 7.50 H, pCO2 34 L, pO2 75 L, HCO3 26, ABG O2 Sat (Measured) 94.0 L, P-50 (Temp Corrected) N, Carboxyhemoglobin 0.2 L, O2 Concentration % .40, Respiration Rate 10, O2 Delivery Method VENT, Vent Mode A/C, Expiratory Pressure 5, Tidal Volume 500, Phlebotomy Draw Site LEFT RADIAL 08/13/17 0342: Anion Gap 8, Estimated GFR > 60, Glucose 120 H, Calcium 7.9 L, Phosphorus 3.4, Magnesium 1.7, Total Bilirubin 0.4, AST 47, ALT 80 H, Albumin 2.1 L, CBC w Diff NO MAN DIFF REQ, RBC 3.01 L, MCV 90.4, MCH 29.0, RDW 20.8 H, MPV 7.8, Gran % 65.2, Lymphocytes % 28.1, Monocytes % 6.0, Eosinophils % 0.5, Basophils % 0.2, Absolute Granulocytes 8.1 H, Absolute Lymphocytes 3.5 H, Absolute Monocytes 0.8 H, Absolute Eosinophils 0.1, Absolute Basophils 0, PUBS MCHC 32.1 L 08/12/17 1205: pH 7.52 H, pCO2 30 L, pO2 88, HCO3 24, ABG O2 Sat (Measured) 97.0, P-50 (Temp Corrected) YES, Carboxyhemoglobin 0.3 L, O2 Concentration % 40%, Temperature 97.4, O2 Delivery Method VENT, Vent Mode CPAP, Expiratory Pressure 5, Pressure Support 6, Phlebotomy Draw Site LEFT RADIAL Assessment/Plan Assessment/Plan Assessment: 1. Coronary artery disease 2. Ischemic cardiomyopathy 3. Paroxysmal atrial fibrillation 4. Ventricular tachycardia 5. Perforated duodenal ulcer, status post repair Recommendations: -In the absence of any new major issues, I would continue current management for now -Continue to monitor potassium, magnesium, etc. -continue management otherwise as per the critical care team. -As noted by Dr. Sanchez, consider amiodarone if any recurrence of any significant ventricular arrhythmias. Continue telemetry? Yes
--- NOTE | 2017-08-14 11:20 | PN- Diabetes ---
Assessment/Plan Assessment: 76-year-old male with Hx of CAD with low ejection fraction, atrial fibrillation, AICD, previous infection of hip with prolonged antibiotic, history of peptic ulcer disease, diabetes and renal stone, was admitted for perforation of duodenum now with septic shock in ICU. He was on 3 pressors, TPN, octreotide drip and bicarb drip. His BP remained low and stress dose of steroid was initiated despite his am cortisol was 24.8. Patient is still on octreotide drip. Patient was re-intubated on 07/26/2017. He has been off on TPN. Hydrocortisone was discontinued on 08/13/2017. Currently he is on tube feeding with Vital 85 mL per hour. Levemir was decreased to 17 units twice a day and Novolog coverage every 4 hours was adjusted multiple times. The patient's most recent blood sugars were 181, 169, 161, 151, 146 and 191. Plan: continue the current insulin regimen; monitor FSGs, electrolytes and vital signs; will follow. Subjective Subjective: patient remains intubated. Objective Last 24 Hrs of Vital Signs/I&O Vital Signs Date Time Temp Pulse Resp B/P B/P Pulse O2 O2 Flow FiO2 Mean Ox Delivery Rate 08/14 0907 70 98/53 08/14 0826 35 08/14 08 97 Ventilator 35% 08/14 08 97.5 69 17 118/56 97 Ventilator 35% 08/14 0656 35 08/14 06 97.9 68 23 98/50 98 Ventilator 35% 08/14 0400 95 Ventilator 35% 08/14 0349 35 08/14 0110 35 08/14 0000 98 Ventilator 35% 08/13 2251 35 08/13 2158 69 24 113/55 08/13 2030 96 Ventilator 35% 08/13 1907 35 08/13 1634 35 08/13 1600 100 Ventilator 40% 08/13 1600 97.5 69 26 112/60 100 Ventilator 40% 08/13 1431 40 08/13 1200 99 Ventilator 40% 08/13 1200 98.4 69 11 106/54 99 Ventilator 40% 08/13 1149 40 Intake & Output 08/14 1600 08/14 0800 08/14 0000 Intake Total 1529 1380 Output Total 670 590 Balance 859 790 Intake, IV 770 500 Intake, Tube 609 680 Feeding Intake, Tube 150 200 Irrigant Number 1 Bowel Movements Output, 20 Drainage Output, Other 150 Output, Urine 500 590 Findings Pertinent Lab/Les Results: Laboratory Tests 08/14 0445 Chemistry Sodium (137 - 145 mmol/L) 140 Potassium (3.5 - 5.1 mmol/L) 3.6 Chloride (98 - 107 mmol/L) 105 Carbon Dioxide (22 - 30 mmol/L) 26 Anion Gap (5 - 16) 9 BUN (9 - 20 mg/dL) 23 H Creatinine (0.7 - 1.2 mg/dL) 0.7 Estimated GFR (>60 ml/min) > 60 Glucose (65 - 99 mg/dL) 131 H Calcium (8.4 - 10.2 mg/dL) 8.0 L Phosphorus (2.5 - 4.5 mg/dL) 3.1 Magnesium (1.6 - 2.3 mg/dL) 1.8 Total Bilirubin (0.2 - 1.3 mg/dL) 0.4 AST (17 - 59 U/L) 64 H ALT (21 - 72 U/L) 80 H Albumin (3.5 - 5.0 g/dL) 2.1 L Coagulation PT (9.4 - 12.5 SEC) 13.5 H INR (0.90 - 1.17) 1.29 H APTT (25 - 37 SEC) 29 Hematology CBC w Diff MAN DIFF ORDERED WBC (4.8 - 10.8 /CUMM) 11.4 H RBC (4.70 - 6.10 /CUMM) 3.07 L Hgb (14.0 - 18.0 G/DL) 9.2 L Hct (42 - 52 %) 27.8 L MCV (80.0 - 94.0 FL) 90.6 MCH (27.0 - 31.0 PG) 29.9 RDW (11.5 - 14.5 %) 21.0 H Plt Count (130 - 400 /CUMM) 252 MPV (7.4 - 10.4 FL) 7.8 Gran % (42.2 - 75.2 %) 59.2 Lymphocytes % (20.5 - 51.1 %) 32.9 Monocytes % (1.7 - 9.3 %) 6.7 Eosinophils % (0 - 5 %) 0.8 Basophils % (0.0 - 2.0 %) 0.4 Absolute Granulocytes (1.4 - 6.5 /CUMM) 6.7 H Segmented Neutrophils (42.2 - 75.2 %) 57 Band Neutrophils (0.0 - 5.0 %) 8 H Absolute Lymphocytes (1.2 - 3.4 /CUMM) 3.7 H Lymphocytes (20.5 - 51.1 %) 25 Monocytes (1.7 - 9.3 %) 8 Absolute Monocytes (0.10 - 0.60 /CUMM) 0.8 H Eosinophils (0 - 5.0 %) 2 Absolute Eosinophils (0.0 - 0.7 /CUMM) 0.1 Absolute Basophils (0.0 - 0.2 /CUMM) 0 Platelet Estimate (ADEQUATE) ADEQUATE Polychromasia 1+ Hypochromic-Microcytic 1+ Poikilocytosis 1+ Anisocytosis 1+ Stomatocytes 1+ PUBS MCHC (33.0 - 37.0 G/DL) 33.0
[2017-08-14 12:00] VITALS: BP 130/52
--- NOTE | 2017-08-14 12:26 | PN- General Surgery ---
Surgical Brief Attending Note Brief Attending Note: Drain sites with reduced output. High concern for undrained intraabdominal collection. Tracts packed with 1/2 guaze [address] abd/pelvis.
--- NOTE | 2017-08-14 14:02 | RADIOLOGY REPORT ---
EXAMINATION: CR PORTABLE CHEST CLINICAL INFORMATION: Patient intubated. ET tube placement. COMPARISON: Multiple prior chest x-rays, most recent of which is dated 08/13/2017. TECHNIQUE: Portable AP semierect view of the chest was obtained. FINDINGS: Endotracheal tube tip approximately 2.8 cm above the kika. Enteric tube can only be followed up to the lower chest level beyond which the tube cannot be seen due to technique of the exam. Right atrial pacer lead and right ventricular ICD lead are seen in place. Right subclavian PICC line is in place with tip in the deep SVC. The patient is status post median sternotomy and CABG surgery. The cardiomediastinal silhouette is enlarged. Calcification and tortuosity of the aorta is seen. There is persistent dense parenchymal opacity seen in the lung bases bilaterally, left greater than right. Associated small bilateral pleural effusions are noted. No pneumothorax. Bony structures grossly unremarkable. IMPRESSION: 1. Endotracheal tube tip 2.8 cm above the kika. 2. Enteric tube course and tip not visualized. 3. Right subclavian PICC line tip in the deep SVC. 4. No interval change in bilateral small pleural effusions and associated bibasilar parenchymal consolidations.
[2017-08-14 16:00] VITALS: BP 98/58
--- NOTE | 2017-08-14 16:45 | PN- General Surgery ---
Surgical Brief Attending Note Brief Attending Note: CT reviewed. Formal report pending. Remarkably, there is less fluid right paraduodenal than I would have expected. Unclear if it can be accessed by IR. Will discuss with them tomorrow. No emergent intervention required.
--- NOTE | 2017-08-14 17:20 | CT SCAN REPORT ---
EXAMINATION: CT ABDOMEN AND PELVIS WITHOUT CONTRAST CLINICAL INFORMATION: 76-year-old male with decreased drain output. Concern for undrained abdominal collections. COMPARISON: 08/06/2017. TECHNIQUE: Multidetector volumetric imaging was performed from the superior aspect of the liver through the pubic symphysis. Sagittal and coronal reformatted images were obtained on the technologist's workstation. DLP: 1653 mGy-cm FINDINGS: LUNG BASES: Cardiomegaly, atherosclerotic disease of coronary arteries and dual-chamber AICD/pacemaker leads in place. Persistent small bilateral pleural effusions with compressive atelectasis and/or consolidation in lower lobes, similar in appearance compared to 08/06/2017. LIVER, GALLBLADDER, AND BILIARY TREE: No acute findings. Gallbladder is physiologically distended and without radiopaque calculi. PANCREAS: No acute findings. SPLEEN: Unremarkable. No evidence of pancreatic ductal dilatation or focal peripancreatic edema. ADRENAL GLANDS: Unremarkable. KIDNEYS AND URETERS: Again noted are the bilateral renal calculi and renal cysts. Findings include persistent, clustered calculi within the nondilated left renal pelvis. No hydroureteronephrosis. BLADDER: The bladder is decompressed by the Duvall catheter. GASTROINTESTINAL TRACT AND PERITONEAL CAVITY: Enteric tube terminates in the antropyloric region of the stomach. Bowel loops remain normal in caliber. The right-sided abdominal drainage catheters observed on 08/06/2017 have been removed. There is reaccumulation of fluid in this region with residual collection located inferior to the gallbladder measuring approximately 4.4 cm transverse and 6 cm AP (images 45-49, series 2). A loculated collection previously observed deep to the left lower abdominal wall has been evacuated by a percutaneous catheter. The catheter tip is located just deep to the left abdominal wall musculature and there is no residual collection around the catheter tip. There is a persistent loculated collection located deep to the right lower, lateral wall that contains bubbles of gas. This collection measures approximately 2.7 cm wide, 8.8 cm AP, compared to 2.7 x 10.5 cm on 08/06/2017. There is minimal fluid located deep to the anterior right abdominal wall with scattered gas (pneumoperitoneum). The pneumoperitoneum has decreased compared to 08/06/2017. There is edema of the omentum and mesentery. There are multiple diverticula of the nondilated colon. There is a percutaneous jejunostomy tube in place. ABDOMINAL WALL: Midline abdominal wound contains minimal fluid. There is edema of the abdominal wall. LYMPH NODES: No pathologic sized lymph nodes. VASCULAR: There is extensive atherosclerotic calcification of the aorta and iliofemoral system without aneurysm. PELVIC VISCERA: Again noted is the mildly enlarged prostate gland. OSSEOUS STRUCTURES: The right hip arthroplasty components are in satisfactory position. No acute skeletal findings compared to the prior exam. IMPRESSION: 1. Persistent anasarca. Small bilateral pleural effusions remain similar in size compared to the 08/06/2017 and there is persistent consolidation and/or atelectasis in the lung bases. 2. A loculated fluid collection deep to the left abdominal wall has been evacuated by a drainage catheter. The two drainage catheters previously seen in the right abdomen have been removed, and there has been reaccumulation of fluid in the right upper quadrant inferior to the level of the gallbladder. 3. The collection located deep to the right lateral abdominal wall is slightly smaller compared to 08/06/2017, currently measuring approximately 2.7 x 8.8 cm compared to 2.7 x 10.5 cm on the prior exam. 4. Again noted is urolithiasis without hydronephrosis.
[2017-08-15] VITALS: BP 106/62
[2017-08-15 04:33] LABS: ABSOLUTE BASOPHIL COUNT 0.1 /CUMM (0.0-0.2); ABSOLUTE EOSINOPHIL COUNT 0.1 /CUMM (0.0-0.7); ABSOLUTE GRANULOCYTE CT 6.3 /CUMM (1.4-6.5); ABSOLUTE LYMPH COUNT 3.7 /CUMM (1.2-3.4); ABSOLUTE MONOCYTE COUNT 0.7 /CUMM (0.10-0.60); BASOPHIL % 0.5 % (0.0-2.0); EOSINOPHIL % 0.6 % (0-5); GRANULOCYTE % 58.4 % (42.2-75.2); MEAN CORPUSCULAR HGB 29.3 PG (27.0-31.0); MEAN CORPUSCULAR HGB CONC 32.4 G/DL (33.0-37.0); MEAN CORPUSCULAR VOLUME 90.6 FL (80.0-94.0); MEAN PLATELET VOLUME 8.1 FL (7.4-10.4); PLATELET COUNT 241 /CUMM (130-400); WHITE BLOOD CELL COUNT 10.8 /CUMM (4.8-10.8)
--- NOTE | 2017-08-15 07:45 | PN- Resident CRCU ---
Subjective HPI/CRCU Issues: Patient seen and examined this morning, intubated, open eyes to sounds. 24 Hour Events: Temperature 99.4, MAXIMUM TEMPERATURE 99.4 Pulse lowest 68, highest 72 paced rhythm Blood pressure lowest 98/49, highest 122/60 Intubated AC/VC 500/10/35/5 saturating 97% Intake 3785, output 1495 Objective Vital Signs & I&O Last 8 Hrs of Vitals and I&O: 49010 Exam General Appearance: awake, intubated Head: atraumatic, normal appearance Ears, Nose, Throat: hearing grossly normal Neck: normal inspection, supple, full range of motion Respiratory: normal breath sounds Cardiovascular: regular rate/rhythm Gastrointestinal: normal bowel sounds, destended vertical surgical wound, pus discharge ostomy bags covering the gabriela sites for drainage. Weaning Parameters NIF: 25 Minute Volume: 14.1 Resp rate: 35 Vt: 403 Heart Rate: 69 Weaning Schedule Start Time: 2029 Minute Volume: 11.5 Resp Rate: 24 Vt: 483 Heart Rate: 70 End Time: 2245 Minute Volume: 13.2 Resp Rate: 27 Vt: 489 Heart Rate: 69 Current Medications: Current Medications Sig/Buck Start time Last Medication Dose Route Stop Time Status Admin Acetaminophen 1,000 MG Q6P PRN 07/16 0530 AC 07/20 N/A 1 UNIT IV 0659 Albuterol Sulfate 3 ML EVERY 4 HRS/AWAKE 07/27 0800 AC 08/15 INH 1148 Ampicillin Sodium/ 3,000 MG Q6H 08/10 2300 AC 08/15 Sulbactam Sodium IV 1018 Sodium Chloride 100 ML Budesonide/ 2 PUF BID 07/26 1056 AC 08/15 Formoterol Fumarate INH 0917 Carvedilol 3.125 MG BID 07/28 1000 AC 08/15 PO 1019 Ciprofloxacin 400 MG Q12H 08/11 0500 AC 08/15 Dextrose/Water 200 ML IV 0524 Fentanyl Citrate 25 MCG Q4P PRN 08/05 2130 AC 08/14 IV 1217 Glycerin 2 SPRAY Q2P PRN 08/10 0445 AC 08/10 PO 2124 Heparin Sodium 5,000 UNIT Q8 08/05 1400 AC 08/15 (Porcine) SC 0643 Insulin Aspart 0 Q4 07/25 1000 AC 08/15 SC 1053 Insulin Detemir 17 UNITS BID 08/13 2200 AC 08/15 SC 1053 Magnesium Oxide 400 MG ONE ONE 08/15 0845 DC 08/15 PO 08/15 0846 1019 Octreotide Acetate 500 MCG Q20H 07/15 1400 AC 08/14 Dextrose/Water 500 ML IV 2156 Pantoprazole Sodium 40 MG BID 07/10 1016 AC 08/15 IV 1018 Phosphate 250 MG ONCE ONE 08/15 0845 DC 08/15 PO 08/15 0846 1019 Potassium Chloride 20 MEQ ONCE ONE 08/15 0845 DC 08/15 PO 08/15 0846 1018 Potassium Chloride 20 MEQ BID 08/10 2200 AC 08/14 PO 2138 Impression/Plan Impression/Problem List Impression: This is a 76-year-old male with past medical history of CAD with HFrEF, A. fib, AICD, previous infection of the hip with prolonged antibiotic, history of peptic ulcer disease, diabetes, nephrolithiasis who was transferred to the ICU for perforation of the duodenum with septic shock S/76 year old gentleman PAF on Tikosyn, not on AC, 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 extubated, continues to be on tube feeds. #Endotracheal intubation -Extubation trails failed over the weekend #Septic shock - 2/2 peritonitis from perforated duodenal ulcer - Off Levophed - Started Vancomycin and Meropenem initally as per ID, now culture growing Enterobacter, possibly CRE (carbopenem resistant). - Antibiotics changed to Unasyn 3 g IV every 6 hours and Ciprofloxacin 400 mg IV every 12 hours -Off stress cortisone #V. tach - F/u cardio recs - Continue Carvedilol 3.125 twice a day with holding parameters #Hx of PAF on Tikosyn - Curently in NSR, and rate controlled - Continue to hold tikosyn # Perforated duodenal ulcer s/p repair -CT abdomin without IV contrast was obtained yesterday that revealed multiple locuated fluid collections, Patient will have CT abdomen and pelvis with oral and IV contrast today and CT guided IR. -Status post Successful ultrasound-guided placement of 12 Uzbek pigtail catheter into left abdominal abscess cavity on 08/08/17 -Body fluid culture grew heavy growth of gram-negative rods, culture growing Enterobacter. -Patient started on Vancomycin and Meropenem but after 3 days as per ID recommendations, Antibiotics changed to Unasyn 3 g IV every 6 hours and Ciprofloxacin 400 mg IV every 12 hours day 3 - Status post expiratory laparotomy and suture repair of duodenal ulcer with Fabrizio patch on 07/09 and 07/16--- no recommendation for further surgical intervention at the moment - No octreotide drip but noticed decreasing continuous drainage from GABRIELA - IV Protonix 40mg BID - Status post daptomycin and meropenem, ID on board, body fluid culture 2 from the OR positive for vancomycin-resistant enterococcus -Respiratory culture from 07/18 positive for vancomycin-resistant enterococcus -Respiratory culture from 07/30 positive for 1. Moderate growth of: ESCHERICHIA COLI 2. Light growth of: BETA STREP GROUP B -Respiratory culture from 07/30 positive for Scant growth of 1. ENTEROBACTER AEROGENES 2. Light growth of: STAPH AUREUS, likely colonization #USMAN - Resolved - Continue to montior UOP, monitor BUN increase #Uncontrolled DM, secondary to Sepsis, pressors and octreotide - Continue Levemir 17 units twice a day - Novolog SS every 4 hours - Target Blood sugar 140 -180 - Continue following endocrine recommendation - DVT prophylaxis ALPS and SC heparin - Diet Continue on J tube feeding, rate 75 ml/h - Code Status Full Code Consultation ID, surgery, cardiology, nephrology, endocrinology IV access PICC line right arm Problem List: 1. Peritonitis 2. Duodenal ulcer with perforation Pain Ratin Tomorrow's Labs & Rationales: CBC ICU bundle CXR Plan DVT/Prophylaxis: mechanical, pharmacological
[2017-08-15 08:00] VITALS: BP 110/60
--- NOTE | 2017-08-15 09:52 | PN- CRCU ---
Subjective HPI/Critical Care Issues: INtubated and less responsive Objective Current Medications: Current Medications Sig/Buck Start time Last Medication Dose Route Stop Time Status Admin Acetaminophen 1,000 MG Q6P PRN 07/16 0530 AC 07/20 N/A 1 UNIT IV 0659 Albuterol Sulfate 3 ML EVERY 4 HRS/AWAKE 07/27 0800 AC 08/15 INH 0917 Ampicillin Sodium/ 3,000 MG Q6H 08/10 2300 AC 08/15 Sulbactam Sodium IV 0449 Sodium Chloride 100 ML Budesonide/ 2 PUF BID 07/26 1056 AC 08/15 Formoterol Fumarate INH 0917 Carvedilol 3.125 MG BID 07/28 1000 AC 08/14 PO 2125 Ciprofloxacin 400 MG Q12H 08/11 0500 AC 08/15 Dextrose/Water 200 ML IV 0524 Fentanyl Citrate 100 MCG .STK-MED ONE 08/14 1215 DC IM 08/14 1216 Fentanyl Citrate 25 MCG Q4P PRN 08/05 2130 AC 08/14 IV 1217 Glycerin 2 SPRAY Q2P PRN 08/10 0445 AC 08/10 PO 2124 Heparin Sodium 5,000 UNIT Q8 08/05 1400 AC 08/15 (Porcine) SC 0643 Insulin Aspart 0 Q4 07/25 1000 AC 08/15 SC 0642 Insulin Detemir 17 UNITS BID 08/13 2200 AC 08/14 SC 2206 Magnesium Oxide 400 MG ONE ONE 08/15 0845 DC PO 08/15 0846 Octreotide Acetate 500 MCG Q20H 07/15 1400 AC 08/14 Dextrose/Water 500 ML IV 2156 Pantoprazole Sodium 40 MG BID 07/10 1016 AC 08/14 IV 2140 Phosphate 250 MG ONCE ONE 08/15 0845 DC PO 08/15 0846 Potassium Chloride 20 MEQ ONCE ONE 08/15 0845 DC PO 08/15 0846 Potassium Chloride 20 MEQ BID 08/10 2200 AC 08/14 PO 2138 Vital Signs & I&O Last 24 Hrs of Vitals and I&O: Vital Signs Date Time Temp Pulse Resp B/P B/P Pulse O2 O2 Flow FiO2 Mean Ox Delivery Rate 08/15 0900 35 08/15 0652 35 08/15 0400 97 Ventilator 35% 08/15 0349 35 08/15 0202 35 08/15 0000 98.6 69 27 106/62 97 Ventilator 35% 08/15 0000 97 Ventilator 35% 08/14 2222 35 08/14 2125 69 26 118/61 08/14 2058 30 08/14 2000 94 Ventilator 35% 08/14 1602 35 08/14 1600 100 Ventilator 35% 08/14 1600 98.1 70 26 98/58 100 Ventilator 35% 08/14 1400 35 08/14 1200 95 Ventilator 35% 08/14 1200 98.1 72 25 130/52 95 Ventilator 35% Intake & Output 08/15 1600 08/15 0800 08/15 0000 Intake Total 1403 1135 Output Total 550 505 Balance 853 630 Intake, IV 593 471 Intake, Tube 745 624 Feeding Intake, Tube 65 40 Irrigant Number 2 Bowel Movements Output, 10 20 Drainage Output, 25 75 Gastric Drainage Output, Other 10 Output, Urine 515 400 Impression/Plan Impression/Plan Impression/Plan: Afebrile. Intubated Skin reveals no rash. HEENT negative. Neck supple with no adenopathy; Picc line in place Lungs decreased breath sounds bilaterally. Heart regular rhythm with no murmur. Abdomen is obese, distended, tender to palpation, Incision noted with a gabriela drain in the rt side, feeding tube on the left side Extremities superficial ulcerations over the anterior tibial aspects of both legs, with 1+ edema bilaterally. Neuro is without focality. 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 with prolonged antibiotic, previous history of peptic ulcer disease, diabetes, sinus rhythm upon admission was on Tikosyn, hyperlipidemia, apparently has never smoked before, previous history of lithotripsy, CABG, previous hip prosthesis infection status post removal of prosthesis in early 2017 now has the following issues * S/p Perf large DU ulcer s/p surg with unsuccessful du repair with peritonitis, persistant leak / now has sig gabriela drainage with ng suction and somatostatin / Patient now has significant fluid collection in the right paracolic gutter s/p pig tail on 08/08 with enterobacter by culture. Now prob has necrotizing fascitis of the abd wall/ and the drains have now fallen off * S/p Severe shock septic on multiple pressors now off pressors, how ever clinically worse since yesterday due to sepsis in his abd and prob pneumonia * Resolving Hypoxic respiratory failure due to above with no clinical evidence suggestive of pneumonia. Sputum does have enterobacter and staph * Sig drainage from the gabriela biliary leak which is ongoing/ with fluid collection which is pyogenic * Significant ischemic heart disease with low ejection fraction high risk for fluid overload. Previous pafib in sinus now with a pacer and AICD. 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 * H/O LIAM was on cpap * On stress dose steroids now being weaned off * On and off diarrhea RECOMMENDATION * COnt current care and antibiotics * Surg and ID to discuss with IR about further Drainage cath * Attempt trials daily not ready for extubation * Intravenous pantoprazole * Heparin subcutaneous * PT would need a trach and Surg is aware and if he does not have good response he should get a trach soon DNR and meeting on tuesday with family Pt critically ill tts 38 mins
--- NOTE | 2017-08-15 10:12 | PN- Diabetes ---
Assessment/Plan Assessment: 76-year-old male with Hx of CAD with low ejection fraction, atrial fibrillation, AICD, previous infection of hip with prolonged antibiotic, history of peptic ulcer disease, diabetes and renal stone, was admitted for perforation of duodenum now with septic shock in ICU. He was on 3 pressors, TPN, octreotide drip and bicarb drip. His BP remained low and stress dose of steroid was initiated despite his am cortisol was 24.8. Patient is still on octreotide drip. Patient was re-intubated on 07/26/2017. He has been off on TPN. Hydrocortisone was discontinued on 08/13/2017. Currently he is on tube feeding with Vital 85 mL per hour. Levemir was decreased to 17 units twice a day and Novolog coverage every 4 hours was adjusted multiple times. The patient's most recent blood sugars were 159, 162 and 179. Plan: continue the current insulin regimen for now; monitor his FSGs. will follow. Subjective Subjective: He remains intubated. Objective Last 24 Hrs of Vital Signs/I&O Vital Signs Date Time Temp Pulse Resp B/P B/P Pulse O2 O2 Flow FiO2 Mean Ox Delivery Rate 08/15 0900 35 08/15 0652 35 08/15 0400 97 Ventilator 35% 08/15 0349 35 08/15 0202 35 08/15 0000 98.6 69 27 106/62 97 Ventilator 35% 08/15 0000 97 Ventilator 35% 08/14 2222 35 08/14 2125 69 26 118/61 08/14 2058 30 08/14 2000 94 Ventilator 35% 08/14 1602 35 08/14 1600 100 Ventilator 35% 08/14 1600 98.1 70 26 98/58 100 Ventilator 35% 08/14 1400 35 08/14 1200 95 Ventilator 35% 08/14 1200 98.1 72 25 130/52 95 Ventilator 35% Intake & Output 08/15 1600 08/15 0800 08/15 0000 Intake Total 1403 1135 Output Total 550 505 Balance 853 630 Intake, IV 593 471 Intake, Tube 745 624 Feeding Intake, Tube 65 40 Irrigant Number 2 Bowel Movements Output, 10 20 Drainage Output, 25 75 Gastric Drainage Output, Other 10 Output, Urine 515 400 Findings Pertinent Lab/Les Results: Laboratory Tests 08/15 08/15 08/15 0828 0400 0400 Chemistry Sodium (137 - 145 mmol/L) 141 Potassium (3.5 - 5.1 mmol/L) 3.5 Chloride (98 - 107 mmol/L) 107 Carbon Dioxide (22 - 30 mmol/L) 24 Anion Gap (5 - 16) 10 BUN (9 - 20 mg/dL) 25 H Creatinine (0.7 - 1.2 mg/dL) 0.7 Estimated GFR (>60 ml/min) > 60 Glucose (65 - 99 mg/dL) 158 H Calcium (8.4 - 10.2 mg/dL) 7.9 L Phosphorus (2.5 - 4.5 mg/dL) 3.4 Magnesium (1.6 - 2.3 mg/dL) 1.8 Total Bilirubin (0.2 - 1.3 mg/dL) 0.4 AST (17 - 59 U/L) 94 H ALT (21 - 72 U/L) 99 H Albumin (3.5 - 5.0 g/dL) 2.2 L Prealbumin (17.6 - 36.0 mg/dL) 14.0 L Coagulation APTT Cancelled Hematology CBC w Diff MAN DIFF ORDERED WBC (4.8 - 10.8 /CUMM) 10.8 RBC (4.70 - 6.10 /CUMM) 3.20 L Hgb (14.0 - 18.0 G/DL) 9.4 L Hct (42 - 52 %) 29.0 L MCV (80.0 - 94.0 FL) 90.6 MCH (27.0 - 31.0 PG) 29.3 RDW (11.5 - 14.5 %) 21.0 H Plt Count (130 - 400 /CUMM) 241 MPV (7.4 - 10.4 FL) 8.1 Gran % (42.2 - 75.2 %) 58.4 Lymphocytes % (20.5 - 51.1 %) 34.2 Monocytes % (1.7 - 9.3 %) 6.3 Eosinophils % (0 - 5 %) 0.6 Basophils % (0.0 - 2.0 %) 0.5 Absolute Granulocytes (1.4 - 6.5 /CUMM) 6.3 Segmented Neutrophils (42.2 - 75.2 %) 60 Band Neutrophils (0.0 - 5.0 %) 15 H Absolute Lymphocytes (1.2 - 3.4 /CUMM) 3.7 H Lymphocytes (20.5 - 51.1 %) 16 L Monocytes (1.7 - 9.3 %) 9 Absolute Monocytes (0.10 - 0.60 /CUMM) 0.7 H Absolute Eosinophils (0.0 - 0.7 /CUMM) 0.1 Absolute Basophils (0.0 - 0.2 /CUMM) 0.1 Platelet Estimate (ADEQUATE) ADEQUATE Polychromasia 1+ Hypochromic-Microcytic 1+ PUBS MCHC (33.0 - 37.0 G/DL) 32.4 L
--- NOTE | 2017-08-15 10:53 | PN- Infect Dx ---
Subjective Subjective: Afebrile without complaints Objective Last 24 Hrs of Vital Signs/I&O Vital Signs Date Time Temp Pulse Resp B/P B/P Pulse O2 O2 Flow FiO2 Mean Ox Delivery Rate 08/15 1019 68 116/56 08/15 0900 35 08/15 0652 35 08/15 0400 97 Ventilator 35% 08/15 0349 35 08/15 0202 35 08/15 0000 98.6 69 27 106/62 97 Ventilator 35% 08/15 0000 97 Ventilator 35% 08/14 2222 35 08/14 2125 69 26 118/61 08/14 2058 30 08/14 2000 94 Ventilator 35% 08/14 1602 35 08/14 1600 100 Ventilator 35% 08/14 1600 98.1 70 26 98/58 100 Ventilator 35% 08/14 1400 35 08/14 1200 95 Ventilator 35% 08/14 1200 98.1 72 25 130/52 95 Ventilator 35% Intake & Output 08/15 1600 08/15 0800 08/15 0000 Intake Total 1403 1135 Output Total 550 505 Balance 853 630 Intake, IV 593 471 Intake, Tube 745 624 Feeding Intake, Tube 65 40 Irrigant Number 2 Bowel Movements Output, 10 20 Drainage Output, 25 75 Gastric Drainage Output, Other 10 Output, Urine 515 400 Physical Exam Other Physical Findings: He remains lethargic but responsive on the ventilator in no acute distress Lungs are clear Heart regular rhythm with no murmur Abdomen is distended, nontender with positive bowel sounds; left abdominal catheter remains in place with 60 mL output reported yesterday and 10 mL overnight; ostomy device in place with brown liquid output; incision with purulent appearing exudate expressed from the inferior aspect Extremities no cyanosis, clubbing or edema; PICC in the right upper 70 with no inflammation at the site Duvall catheter remains in place Results Last 24 Hours of Lab Results: Laboratory Tests 08/15 08/15 08/15 0828 0400 0400 Chemistry Sodium (137 - 145 mmol/L) 141 Potassium (3.5 - 5.1 mmol/L) 3.5 Chloride (98 - 107 mmol/L) 107 Carbon Dioxide (22 - 30 mmol/L) 24 Anion Gap (5 - 16) 10 BUN (9 - 20 mg/dL) 25 H Creatinine (0.7 - 1.2 mg/dL) 0.7 Estimated GFR (>60 ml/min) > 60 Glucose (65 - 99 mg/dL) 158 H Calcium (8.4 - 10.2 mg/dL) 7.9 L Phosphorus (2.5 - 4.5 mg/dL) 3.4 Magnesium (1.6 - 2.3 mg/dL) 1.8 Total Bilirubin (0.2 - 1.3 mg/dL) 0.4 AST (17 - 59 U/L) 94 H ALT (21 - 72 U/L) 99 H Albumin (3.5 - 5.0 g/dL) 2.2 L Prealbumin (17.6 - 36.0 mg/dL) 14.0 L Coagulation APTT Cancelled Hematology CBC w Diff MAN DIFF ORDERED WBC (4.8 - 10.8 /CUMM) 10.8 RBC (4.70 - 6.10 /CUMM) 3.20 L Hgb (14.0 - 18.0 G/DL) 9.4 L Hct (42 - 52 %) 29.0 L MCV (80.0 - 94.0 FL) 90.6 MCH (27.0 - 31.0 PG) 29.3 RDW (11.5 - 14.5 %) 21.0 H Plt Count (130 - 400 /CUMM) 241 MPV (7.4 - 10.4 FL) 8.1 Gran % (42.2 - 75.2 %) 58.4 Lymphocytes % (20.5 - 51.1 %) 34.2 Monocytes % (1.7 - 9.3 %) 6.3 Eosinophils % (0 - 5 %) 0.6 Basophils % (0.0 - 2.0 %) 0.5 Absolute Granulocytes (1.4 - 6.5 /CUMM) 6.3 Segmented Neutrophils (42.2 - 75.2 %) 60 Band Neutrophils (0.0 - 5.0 %) 15 H Absolute Lymphocytes (1.2 - 3.4 /CUMM) 3.7 H Lymphocytes (20.5 - 51.1 %) 16 L Monocytes (1.7 - 9.3 %) 9 Absolute Monocytes (0.10 - 0.60 /CUMM) 0.7 H Absolute Eosinophils (0.0 - 0.7 /CUMM) 0.1 Absolute Basophils (0.0 - 0.2 /CUMM) 0.1 Platelet Estimate (ADEQUATE) ADEQUATE Polychromasia 1+ Hypochromic-Microcytic 1+ PUBS MCHC (33.0 - 37.0 G/DL) 32.4 L Last 24 Hours of Les Results: Stool C. difficile August 13 negative Recent Imaging Studies: CT of the abdomen and pelvis August 14 reveals reaccumulation of fluid in the right upper quadrant inferior to the level of the bladder, measuring 4.4 x 6 cm, and a decrease in the collection deep to the right lateral abdominal wall, containing bubbles of gas, is slightly smaller than the previous study, measuring 2.7 x 8.8 cm; resolution of the left abdominal wall collection Assessment/Plan Impression: Overall status remains poor, though stable, with temperatures remaining normal and white blood cell count only minimally elevated now 1 week status post drainage of a left abdominal abscess secondary to Enterobacter, with resolution of this abscess on the recent CT scan. The CT does, however, reveal two other collections, which likely represent abscesses, and they will likely need to be drained. He remains on Ciprofloxacin and Unasyn, the latter for the Staph aureus isolated from the sputum culture, though suspect this represents colonization, with his stable respiratory status and chest x-ray. I am reluctant to continue him to another prolonged course of antibiotics, but he is clearly at continued risk for the development of recurrent collections as long as his enteric leak persists, now 37 days status post surgery for the perforated duodenal ulcer and 30 days status post an unsuccessful duodenal repair for the persistent enteric leak. Suggestion: 1. Would pursue IR guided aspiration of the 2 collections seen on the recent CT scan (discussed with IR who recommends oral and IV contrast) 2. Remove the left abdominal catheter if minimal drainage persists 3. Continue Unasyn and Ciprofloxacin pending above
[2017-08-15 16:00] VITALS: BP 110/70
--- NOTE | 2017-08-15 16:09 | PN- General Surgery ---
Surgical Brief Attending Note Brief Attending Note: CT oral contrast reviewed with IR. Plan for two drains, one in subhepatic periduodenal collection. The other will be placed near right abdominal wall where there is persistent tracking from prior surgically placed drains.
--- NOTE | 2017-08-15 16:21 | CT SCAN REPORT ---
EXAMINATION: CT ABDOMEN AND PELVIS WITH CONTRAST CLINICAL INFORMATION: Abdominal abscess. COMPARISON: Noncontrast CT images of the abdomen and pelvis from 08/14/2017. TECHNIQUE: Multidetector volumetric imaging was performed of the abdomen and pelvis following enteric contrast and IV administration of 95 mL of Optiray 320 intravenous contrast. Sagittal and coronal reformatted images were obtained on the technologist's workstation. DLP: 1430 mGy-cm FINDINGS: LUNG BASES: Again noted is cardiomegaly, atherosclerotic disease of coronary arteries and dual-chamber AICD/pacemaker leads. Persistent small bilateral pleural effusions with consolidation and/or compressive atelectasis in lower lobes. LIVER, GALLBLADDER, AND BILIARY TREE: No focal hepatic lesion or intrahepatic bile duct dilatation. Gallbladder is physiologically distended and there is mild thickening of the gallbladder wall, likely secondary to anasarca. PANCREAS: Unremarkable. SPLEEN: Unremarkable. ADRENAL GLANDS: Unremarkable. KIDNEYS AND URETERS: Again noted are the bilateral renal cysts and renal calculi, including clustered calculi within the nondilated left renal pelvis. No hydroureteronephrosis. BLADDER: The urinary bladder is decompressed by a Duvall catheter; the catheter balloon is inflated within the prostatic urethra. GASTROINTESTINAL TRACT AND PERITONEUM: The enteric tube terminates in the region of the pylorus. There is leakage of enteric contrast from the second portion of the duodenum into the right upper quadrant, inferior to the gallbladder and around the inferior right hepatic lobe. The collection of contrast and gas within the right upper quadrant measures approximately 11.5 cm AP and 5.5 cm transverse (images [id number], series 3). Loops of bowel remain normal in caliber. There is no reaccumulation of fluid deep to the left lower abdominal wall at site of the stable drainage catheter. The complex rim enhancing collection located deep to the right lateral abdominal wall contains multiple gas bubbles, fluid and enteric contrast, and rim-enhancing pocket of fluid extends inferiorly into the pelvis over the right iliacus muscle -- unchanged compared to 08/14/2017. Again noted is the percutaneous jejunostomy tube. ABDOMINAL WALL: The midline abdominal wound contains a small amount of fluid and gas. Edema is present within subcutaneous tissues of the abdominal wall. LYMPH NODES: No pathologic sized lymph nodes. VASCULAR: There is extensive atherosclerotic calcification of the aorta and iliofemoral system without aneurysm. PELVIC VISCERA: There is a mildly enlarged prostate gland. The Duvall catheter balloon is inflated within the prostatic urethra. OSSEOUS STRUCTURES: No acute skeletal findings compared the prior exam. IMPRESSION: 1. Persistent anasarca with small pleural effusions and bibasilar atelectasis and/or consolidation. 2. There is active contrast leakage from the duodenum filling a recurrent collection in the right upper quadrant of the abdomen. Also, there is enteric contrast within the persistent complex collection located deep to the right lateral abdominal wall and extending inferiorly into the pelvis. 3. Urolithiasis without hydronephrosis.
--- NOTE | 2017-08-15 17:43 | CT SCAN REPORT ---
CLINICAL HISTORY: This patient is a 76 years old Male with duodenal leak and intra-abdominal collections. Drainage catheters are requested in the right upper and right lower quadrant collections. PROCEDURES: 1. Limited CT of the abdomen. 2. Placement of a 14 Fr locking all-purpose drainage catheter into the right upper quadrant collection under CT-guidance. 3. Placement of a 14 Azerbaijani locking all-purpose drainage catheter into the right lower quadrant collection under CT guidance. PHYSICIANS: Dr. Margie Zarate (attending) MONITORING: The procedure was performed without conscious sedation as it was not necessary or requested. Continuous blood pressure, pulse oximetry as well as heartrate monitoring was performed by an independent registered nurse. MEDICATIONS: 1. Lidocaine 1%, 10 mL, SQ. COMPLICATIONS: None ESTIMATED BLOOD LOSS: <5 mL SPECIMENS: None IMPLANT: 2 separate 14 Azerbaijani all-purpose drainage catheters CONTRAST: None TOTAL DLP: 2183.90 mGy-cm SITE MARKING: As part of the preprocedure verification policy, a site marking procedure was initiated. Due to the nature the procedure, the insertion site could not be predetermined thus invoking the policy of exemption to site laterality and marking. Insertion site marking was performed in the procedure room in conjunction with imaging confirmation. PROCEDURE NOTE: Informed consent was obtained from the patient prior to the procedure. During this process, the procedure and potential alternatives were explained along with the intended outcome and benefits. The risks of the procedure, including the possibility of an unsuccessful procedure, as well as the risk of not doing the procedure, were discussed. The patient was given the opportunity to ask questions regarding the procedure and appeared competent to make decisions. A signed consent form documenting this discussion was placed in the medical record. A time-out procedure was performed. The patient was placed in the supine position on the CT table. A limited CT of the abdomen was performed to localize the collection and choose appropriate needle access entry point and trajectory. The abdomen was prepped and draped in usual sterile fashion. Elements of maximal sterile barrier technique followed including use of cap, mask, sterile gown, sterile gloves, a sterile full body drape and hand hygiene. Also followed skin preparation with 2% chlorhexidine for cutaneous antisepsis, and sterile ultrasound preparation with sterile gel and probe cover when applicable. The skin and subcutaneous tissues were anesthetized with lidocaine. Under CT-guidance, a 5-Fr StartBulleh catheter was advanced into the right upper quadrant fluid collection. Thick bright yellow fluid was aspirated. A 0.035 in Norman wire was advanced through the needle and coiled in the fluid collection. The needle was removed and exchanged for serial fascial dilators followed by a 14-Fr locking all-purpose catheter. Catheter position within the fluid collection was confirmed by CT evaluation. The wire was removed from the catheter and the tip was coiled within the deep aspect of the fluid collection, again confirmed by CT evaluation. The drain was sutured to skin with 0 silk suture. The skin and subcutaneous tissues were anesthetized with lidocaine. Under CT-guidance, a 5-Fr Yueh catheter was advanced into the right lower quadrant fluid collection. Thick bright yellow fluid was aspirated. A 0.035 in Norman wire was advanced through the needle and coiled in the fluid collection. The needle was removed and exchanged for serial fascial dilators followed by a 14-Fr locking all-purpose catheter. Catheter position within the fluid collection was confirmed by CT evaluation. The wire was removed from the catheter and the tip was coiled within the fluid collection, again confirmed by CT evaluation. The drain was sutured to skin with 0 silk suture. Samples were sent for microbiology. The patient tolerated the procedure well. FINDINGS: 1. Fluid collections in the right upper quadrant and right lower quadrant of the abdomen from the duodenal leak. 2. Successful placement of a 14-Fr locking all-purpose drainage catheter into the right upper quadrant fluid collection. 3. Successful placement of a 14-Fr locking all-purpose drainage catheter into the right lower quadrant fluid collection. IMPRESSION: 1. Successful drainage of a right upper abdominal fluid collection and placement of a drainage catheter. 2.Successful drainage of a right lower abdominal fluid collection and placement of a drainage catheter. PLAN: 1. The patient was stable after the procedure and will be transferred back to a hospital ICU room. 2. The tube should be open to external gravity drainage via drainage bag. 3. Tube should be flushed Q shift with 15 mL normal saline. 4. Tube outputs should be calculated every shift excluding the flush volume.
--- NOTE | 2017-08-15 18:22 | PN- Cardiology ---
Subjective Subjective: Remains intubated. More lethargic. Drains were replaced and draining purulent material after others fell out. Objective Vital Signs and I&Os Vital Signs Date Time Temp Pulse Resp B/P B/P Pulse O2 O2 Flow FiO2 Mean Ox Delivery Rate 08/15 1713 35 08/15 1430 35 08/15 1200 98 Ventilator 35% 08/15 1155 35 08/15 1019 68 116/56 08/15 0900 35 08/15 0800 98 Ventilator 35% 08/15 0800 98.0 68 20 110/60 98 Ventilator 35% 08/15 0652 35 08/15 0400 97 Ventilator 35% 08/15 0349 35 08/15 0202 35 08/15 0000 98.6 69 27 106/62 97 Ventilator 35% 08/15 0000 97 Ventilator 35% 08/14 2222 35 08/14 2125 69 26 118/61 08/14 2058 30 08/14 2000 94 Ventilator 35% Intake & Output 08/15 1600 08/15 0800 08/15 0000 08/14 1600 08/14 0800 08/14 0000 Intake Total 1403 1135 1247 1529 1380 Output Total 550 505 440 670 590 Balance 853 630 807 859 790 Intake, IV 593 471 329 770 500 Intake, Tube 745 624 768 609 680 Feeding Intake, Tube 65 40 150 150 200 Irrigant Number 2 2 1 Bowel Movements Output, 10 20 40 20 Drainage Output, 25 75 Gastric Drainage Output, Other 10 150 Output, Urine 515 400 400 500 590 Physical Exam: Well-developed, morbidly obese male who is intubated and lethargic. Vital signs: See above. Neck: No JVD. Lungs: Occasional rhonchi. Heart: S1, S2 with grade 1-2/6 systolic murmur. Abdomen: distended, nontender, positive bowel sounds, catheters remains in place. Extremities no cyanosis, clubbing or edema. Current Medications: Current Medications Sig/Buck Start time Last Medication Dose Route Stop Time Status Admin Acetaminophen 1,000 MG Q6P PRN 07/16 0530 AC 07/20 N/A 1 UNIT IV 0659 Albuterol Sulfate 3 ML EVERY 4 HRS/AWAKE 07/27 0800 AC 08/15 INH 1722 Ampicillin Sodium/ 3,000 MG Q6H 08/10 2300 AC 08/15 Sulbactam Sodium IV 1018 Sodium Chloride 100 ML Budesonide/ 2 PUF BID 07/26 1056 AC 08/15 Formoterol Fumarate INH 0917 Carvedilol 3.125 MG BID 07/28 1000 AC 08/15 PO 1019 Ciprofloxacin 400 MG Q12H 08/11 0500 AC 08/15 Dextrose/Water 200 ML IV 0524 Fentanyl Citrate 0 .STK-MED ONE 08/15 1514 DC .ROUTE Fentanyl Citrate 25 MCG Q4P PRN 08/05 2130 AC 08/14 IV 1217 Glycerin 2 SPRAY Q2P PRN 08/10 0445 AC 08/10 PO 2124 Heparin Sodium 5,000 UNIT Q8 08/05 1400 AC 08/15 (Porcine) SC 0643 Insulin Aspart 0 Q4 07/25 1000 AC 08/15 SC 1053 Insulin Detemir 17 UNITS BID 08/13 2200 AC 08/15 SC 1053 Magnesium Oxide 400 MG ONE ONE 08/15 0845 DC 08/15 PO 08/15 0846 1019 Midazolam HCl 0 .STK-MED ONE 08/15 151 DC .ROUTE Octreotide Acetate 500 MCG Q20H 07/15 1400 AC 08/14 Dextrose/Water 500 ML IV 2156 Pantoprazole Sodium 40 MG BID 07/10 1016 AC 08/15 IV 1018 Phosphate 250 MG ONCE ONE 08/15 0845 DC 08/15 PO 08/15 0846 1019 Potassium Chloride 20 MEQ ONCE ONE 08/15 0845 DC 08/15 PO 08/15 0846 1018 Potassium Chloride 20 MEQ BID 08/10 2200 AC 08/14 PO 2138 Results Last 48 Hrs of Labs/Mics: Laboratory Tests 08/15/17 0828: APTT Cancelled 08/15/17 0400: Prealbumin 14.0 L 08/15/17 0400: Anion Gap 10, Estimated GFR > 60, Glucose 158 H, Calcium 7.9 L, Phosphorus 3.4 , Magnesium 1.8, Total Bilirubin 0.4, AST 94 H, ALT 99 H, Albumin 2.2 L, CBC w Diff MAN DIFF ORDERED, RBC 3.20 L, MCV 90.6, MCH 29.3, RDW 21.0 H, MPV 8.1, Gran % 58.4, Lymphocytes % 34.2, Monocytes % 6.3, Eosinophils % 0.6, Basophils % 0.5, Absolute Granulocytes 6.3, Segmented Neutrophils 60, Band Neutrophils 15 H , Absolute Lymphocytes 3.7 H, Lymphocytes 16 L, Monocytes 9, Absolute Monocytes 0.7 H, Absolute Eosinophils 0.1, Absolute Basophils 0.1, Platelet Estimate ADEQUATE, Polychromasia 1+, Hypochromic-Microcytic 1+, PUBS MCHC 32.4 L 08/14/17 0445: Anion Gap 9, Estimated GFR > 60, Glucose 131 H, Calcium 8.0 L, Phosphorus 3.1, Magnesium 1.8, Total Bilirubin 0.4, AST 64 H, ALT 80 H, Albumin 2.1 L, PT 13.5 H, INR 1.29 H, APTT 29, CBC w Diff MAN DIFF ORDERED, RBC 3.07 L, MCV 90.6, MCH 29.9, RDW 21.0 H, MPV 7.8, Gran % 59.2, Lymphocytes % 32.9, Monocytes % 6.7, Eosinophils % 0.8, Basophils % 0.4, Absolute Granulocytes 6.7 H, Segmented Neutrophils 57, Band Neutrophils 8 H, Absolute Lymphocytes 3.7 H, Lymphocytes 25, Monocytes 8, Absolute Monocytes 0.8 H, Eosinophils 2, Absolute Eosinophils 0.1, Absolute Basophils 0, Platelet Estimate ADEQUATE, Polychromasia 1+, Hypochromic-Microcytic 1+, Poikilocytosis 1+, Anisocytosis 1+, Stomatocytes 1+, PUBS MCHC 33.0 Recent Imaging Studies: Abscess drainage CT 08/15/2017: IMPRESSION: 1. Successful drainage of a right upper abdominal fluid collection and placement of a drainage catheter. 2.Successful drainage of a right lower abdominal fluid collection and placement of a drainage catheter. PLAN: 1. The patient was stable after the procedure and will be transferred back to a hospital ICU room. 2. The tube should be open to external gravity drainage via drainage bag. 3. Tube should be flushed Q shift with 15 mL normal saline. 4. Tube outputs should be calculated every shift excluding the flush volume. CT abdomen/pelvis with oral and IV contrast 08/15/2017: 1. Persistent anasarca with small pleural effusions and bibasilar atelectasis and/or consolidation. 2. There is active contrast leakage from the duodenum filling a recurrent collection in the right upper quadrant of the abdomen. Also, there is enteric contrast within the persistent complex collection located deep to the right lateral abdominal wall and extending inferiorly into the pelvis. 3. Urolithiasis without hydronephrosis. Assessment/Plan Assessment/Plan [id number] w/ hx of morbid obesity, LIAM on CPAP, COPD, HTN, HLD, DM, CAD/ICM (s/ p IMI in 1998, CABG 4 w/ WHITE to LAD and individual SVGs to Dx, OM, PDA & MAZE) , and recurrent PAF who presented in an unkempt state via ambulance w/ UTI & subsequently had a perforation of a duodenal ulcer for which he underwent surgery (Fabrizio patch) on 07/09/2017 with worsening clinical status requiring return to the OR on 07/16/2017 for exploratory laparotomy and suture repair duodenal ulcer with Fabrizio patch. More lethargic s/p drainage of a left abdominal abscess on 08/08/2017 w/ pus aspiration & catheter in place. Hemodynamically stable with properly functioning electronic pacemaker nearing end-of-life (EOL), but without immediate concern for pacemaker failure. Continued output from WILLEM drains and persistent purulent drainage from his incision, that is felt by surgery to represent necrotic fascia. Recommendations: * If further significant ventricular tachycardia can place on amiodarone. * Pacemaker functioning properly and should for months, even though near EOL. * Maintain potassium between 4.0-4.5 mEq per liter. * Maintain magnesium and maintain at or above 2.0 mEq per liter. * Continue to follow-up on infectious disease, critical care, endocrine, renal and surgical recommendations. * Continue DVT prophylaxis. Continue telemetry? Not applicable (In ICU.)
[2017-08-16] VITALS: BP 100/58
[2017-08-16 03:29] LABS: ABSOLUTE BASOPHIL COUNT 0.1 /CUMM (0.0-0.2); ABSOLUTE EOSINOPHIL COUNT 0.1 /CUMM (0.0-0.7); ABSOLUTE GRANULOCYTE CT 5.7 /CUMM (1.4-6.5); ABSOLUTE LYMPH COUNT 3.4 /CUMM (1.2-3.4); ABSOLUTE MONOCYTE COUNT 0.7 /CUMM (0.10-0.60); BASOPHIL % 0.5 % (0.0-2.0); EOSINOPHIL % 0.6 % (0-5); GRANULOCYTE % 57.6 % (42.2-75.2); HEMATOCRIT 27.8 % (42-52); MEAN CORPUSCULAR HGB 29.4 PG (27.0-31.0); MEAN CORPUSCULAR HGB CONC 31.9 G/DL (33.0-37.0); MEAN CORPUSCULAR VOLUME 92.1 FL (80.0-94.0); MEAN PLATELET VOLUME 7.6 FL (7.4-10.4); PLATELET COUNT 247 /CUMM (130-400); RBC DISTRIBUTION WIDTH 22.2 % (11.5-14.5); RED BLOOD CELL CT 3.02 /CUMM (4.70-6.10)
[2017-08-16 08:00] VITALS: BP 92/54
--- NOTE | 2017-08-16 08:40 | PN- Diabetes ---
Assessment/Plan Assessment: 76-year-old male with Hx of CAD with low ejection fraction, atrial fibrillation, AICD, previous infection of hip with prolonged antibiotic, history of peptic ulcer disease, diabetes and renal stone, was admitted for perforation of duodenum now with septic shock in ICU. He was on 3 pressors, TPN, octreotide drip and bicarb drip. His BP remained low and stress dose of steroid was initiated despite his am cortisol was 24.8. Patient is still on octreotide drip. Patient was re-intubated on 07/26/2017. He has been off on TPN. Hydrocortisone was discontinued on 08/13/2017. Currently he is on tube feeding with Vital 85 mL per hour. Levemir was decreased to 17 units twice a day and Novolog coverage every 4 hours was adjusted multiple times. The patient's most recent blood sugars [id number], 79, 119, 155, 138 and 140. Plan: continue the current insulin regimen; monitor FSGs. will follow. Subjective Subjective: He remains intubated. Objective Last 24 Hrs of Vital Signs/I&O Vital Signs Date Time Temp Pulse Resp B/P B/P Pulse O2 O2 Flow FiO2 Mean Ox Delivery Rate 08/16 0805 35 08/16 0544 35 08/16 0400 96 Ventilator 35% 08/16 0225 35 08/16 0040 35 08/16 0000 97 Ventilator 35% 08/16 0000 97.7 68 23 100/58 97 Ventilator 35% 08/15 2242 35 08/15 2116 72 105/54 08/15 2000 94 Ventilator 35% 08/15 1921 35 08/15 1713 35 08/15 1600 98 Ventilator 35% 08/15 1600 98.0 68 24 110/70 98 Ventilator 35% 08/15 1430 35 08/15 1200 98 Ventilator 35% 08/15 1155 35 08/15 1019 68 116/56 08/15 0900 35 Intake & Output 08/16 1600 08/16 0800 08/16 0000 Intake Total 1324 1524 Output Total 784 1000 Balance 540 524 Intake, IV 538 759 Intake, Oral 0 Intake, Tube 616 595 Feeding Intake, Tube 170 170 Irrigant Number 2 1 Bowel Movements Output, 195 550 Drainage Output, 50 50 Gastric Drainage Output, Urine 539 400 Findings Pertinent Lab/Les Results: Laboratory Tests 08/16 0320 Chemistry Sodium (137 - 145 mmol/L) 142 Potassium (3.5 - 5.1 mmol/L) 3.5 Chloride (98 - 107 mmol/L) 109 H Carbon Dioxide (22 - 30 mmol/L) 25 Anion Gap (5 - 16) 8 BUN (9 - 20 mg/dL) 24 H Creatinine (0.7 - 1.2 mg/dL) 0.6 L Estimated GFR (>60 ml/min) > 60 Glucose (65 - 99 mg/dL) 130 H Calcium (8.4 - 10.2 mg/dL) 7.6 L Phosphorus (2.5 - 4.5 mg/dL) 3.5 Magnesium (1.6 - 2.3 mg/dL) 1.8 Total Bilirubin (0.2 - 1.3 mg/dL) 0.4 AST (17 - 59 U/L) 44 ALT (21 - 72 U/L) 78 H Albumin (3.5 - 5.0 g/dL) 2.0 L Hematology CBC w Diff NO MAN DIFF REQ WBC (4.8 - 10.8 /CUMM) 10.0 RBC (4.70 - 6.10 /CUMM) 3.02 L Hgb (14.0 - 18.0 G/DL) 8.9 L Hct (42 - 52 %) 27.8 L MCV (80.0 - 94.0 FL) 92.1 MCH (27.0 - 31.0 PG) 29.4 RDW (11.5 - 14.5 %) 22.2 H Plt Count (130 - 400 /CUMM) 247 MPV (7.4 - 10.4 FL) 7.6 Gran % (42.2 - 75.2 %) 57.6 Lymphocytes % (20.5 - 51.1 %) 34.1 Monocytes % (1.7 - 9.3 %) 7.2 Eosinophils % (0 - 5 %) 0.6 Basophils % (0.0 - 2.0 %) 0.5 Absolute Granulocytes (1.4 - 6.5 /CUMM) 5.7 Absolute Lymphocytes (1.2 - 3.4 /CUMM) 3.4 Absolute Monocytes (0.10 - 0.60 /CUMM) 0.7 H Absolute Eosinophils (0.0 - 0.7 /CUMM) 0.1 Absolute Basophils (0.0 - 0.2 /CUMM) 0.1 PUBS MCHC (33.0 - 37.0 G/DL) 31.9 L
--- NOTE | 2017-08-16 08:42 | PN- CRCU ---
Subjective HPI/Critical Care Issues: Doing poorly and status quo S/p Drainage of the pus and biliary drainage signifying ongoing bowel leak Objective Current Medications: Current Medications Sig/Buck Start time Last Medication Dose Route Stop Time Status Admin Acetaminophen 1,000 MG Q6P PRN 07/16 0530 AC 07/20 N/A 1 UNIT IV 0659 Albuterol Sulfate 3 ML EVERY 4 HRS/AWAKE 07/27 0800 AC 08/16 INH 0758 Alteplase, 2 MG ONE ONE 08/15 1915 DC 08/15 Recombinant IV 08/15 1916 212 Ampicillin Sodium/ 3,000 MG Q6H 08/10 2300 AC 08/16 Sulbactam Sodium IV 0509 Sodium Chloride 100 ML Budesonide/ 2 PUF BID 07/26 1056 AC 08/16 Formoterol Fumarate INH 0759 Carvedilol 3.125 MG BID 07/28 1000 AC 08/15 PO 211 Ciprofloxacin 400 MG Q12H 08/11 0500 AC 08/16 Dextrose/Water 200 ML IV 0554 Fentanyl Citrate 0 .STK-MED ONE 08/15 1514 DC .ROUTE Fentanyl Citrate 25 MCG Q4P PRN 08/05 2130 AC 08/14 IV 1217 Glycerin 2 SPRAY Q2P PRN 08/10 0445 AC 08/10 PO 212 Heparin Sodium 5,000 UNIT Q8 08/05 1400 AC 08/16 (Porcine) SC 0509 Insulin Aspart 0 Q4 07/25 1000 AC 08/16 SC 0502 Insulin Detemir 17 UNITS BID 08/13 2200 AC 08/15 SC 2115 Lidocaine 1 ML .STK-MED ONE 08/15 1846 DC ID 08/15 184 Magnesium Oxide 400 MG ONE ONE 08/16 0845 AC PO 08/16 0846 Magnesium Oxide 400 MG ONE ONE 08/15 0845 DC 08/15 PO 08/15 0846 1019 Magnesium Sulfate 1 GM ONCE ONE 08/16 0415 DC 08/16 Dextrose/Water 100 ML IV 08/16 0814 0412 Midazolam HCl 0 .STK-MED ONE 08/15 1514 DC .ROUTE Octreotide Acetate 500 MCG Q20H 07/15 1400 AC 08/15 Dextrose/Water 500 ML IV 2302 Pantoprazole Sodium 40 MG BID 07/10 1016 AC 08/15 IV 2116 Phosphate 250 MG ONCE ONE 08/15 0845 DC 08/15 PO 08/15 0846 1019 Potassium Chloride 40 MEQ ONCE ONE 08/16 0415 DC 08/16 PO 08/16 0416 0412 Potassium Chloride 20 MEQ ONCE ONE 08/15 0845 DC 08/15 PO 08/15 0846 1018 Potassium Chloride 20 MEQ BID 08/10 2200 AC 08/15 PO 2116 Potassium Phosphate 15 mMol ONE ONE 08/16 0845 AC Dextrose/Water 250 ML IV 08/16 1249 Vital Signs & I&O Last 24 Hrs of Vitals and I&O: Vital Signs Date Time Temp Pulse Resp B/P B/P Pulse O2 O2 Flow FiO2 Mean Ox Delivery Rate 08/16 0805 35 08/16 0544 35 08/16 0400 96 Ventilator 35% 08/16 0225 35 08/16 0040 35 08/16 0000 97 Ventilator 35% 08/16 0000 97.7 68 23 100/58 97 Ventilator 35% 08/15 2242 35 08/15 2116 72 105/54 08/15 2000 94 Ventilator 35% 08/15 1921 35 08/15 1713 35 08/15 1600 98 Ventilator 35% 08/15 1600 98.0 68 24 110/70 98 Ventilator 35% 08/15 1430 35 08/15 1200 98 Ventilator 35% 08/15 1155 35 08/15 1019 68 116/56 08/15 0900 35 Intake & Output 08/16 1600 08/16 0800 08/16 0000 Intake Total 1324 1524 Output Total 784 1000 Balance 540 524 Intake, IV 538 759 Intake, Oral 0 Intake, Tube 616 595 Feeding Intake, Tube 170 170 Irrigant Number 2 1 Bowel Movements Output, 195 550 Drainage Output, 50 50 Gastric Drainage Output, Urine 539 400 Impression/Plan Impression/Plan Impression/Plan: Afebrile. Intubated Skin reveals no rash. HEENT negative. Neck supple with no adenopathy; Picc line in place Lungs decreased breath sounds bilaterally. Heart regular rhythm with no murmur. Abdomen is obese, distended, tender to palpation, Incision noted with a gabriela drain in the rt side, feeding tube on the left side Extremities superficial ulcerations over the anterior tibial aspects of both legs, with 1+ edema bilaterally. Neuro is without focality. 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 with prolonged antibiotic, previous history of peptic ulcer disease, diabetes, sinus rhythm upon admission was on Tikosyn, hyperlipidemia, apparently has never smoked before, previous history of lithotripsy, CABG, previous hip prosthesis infection status post removal of prosthesis in early 2017 now has the following issues * S/p Perf large DU ulcer s/p surg with unsuccessful du repair with peritonitis, persistant leak / now has sig gabriela drainage with ng suction and somatostatin / Patient now has significant fluid collection in the right paracolic gutter reinsertion of pig tail with prob has necrotizing fascitis of the abd wall * S/p Severe shock septic on multiple pressors now off pressors, with ongoing intraabd sepsis and prob atx and pna * Resolving Hypoxic respiratory failureSputum does have enterobacter and staph * Sig drainage from the gabriela biliary leak and fluid collection which is ongoing/ with fluid collection which is pyogenic * Significant ischemic heart disease with low ejection fraction high risk for fluid overload. Previous pafib in sinus now with a pacer and AICD. 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 * H/O LIAM was on cpap * On stress dose steroids now being weaned off * On and off diarrhea RECOMMENDATION * COnt current care and antibiotics * Ask surg if there will be any more intervention and if not he would need a trach tommorow. * CT head * Attempt trials daily not ready for extubation but may need a trial of extubation * Intravenous pantoprazole * Heparin subcutaneous * PT would need a trach and Surg is aware and if he does not have good response he should get a trach soon DNR and meeting tommorow Pt critically ill tts 38 mins
--- NOTE | 2017-08-16 08:48 | PN- Resident CRCU ---
Subjective HPI/CRCU Issues: Seen and examined this morning, intubated, status post CT guidance IR aspiration of abdominal pus collections. 24 Hour Events: Temperature 97.1, MAXIMUM TEMPERATURE 98.6 Heartrate lowest 68, highest 70 based Blood pressure lowest 102/51, highest 112/70 AC/VC 500/35/10/5 saturating 98% Intake 3450, output 2330 Patient has 3 abdominal drainage catheters right upper and lower quadrant and left lower quadrant Objective Vital Signs & I&O Last 8 Hrs of Vitals and I&O: [id number] Exam General Appearance: awake, intubated Head: atraumatic, normal appearance Neck: normal inspection, supple, full range of motion Respiratory: normal breath sounds, chest non-tender Cardiovascular: regular rate/rhythm Gastrointestinal: normal bowel sounds, soft, Vertical surgical wound with purulant drainage 3 drainage tubes R upper and lower Qs Left abdominal catheter Extremities: normal inspection, normal capillary refill, normal range of motion, Pedal edema +1 Weaning Parameters NIF: 25 Minute Volume: 14.1 Resp rate: 35 Vt: 403 Heart Rate: 69 Weaning Schedule Start Time: 2029 Minute Volume: 11.5 Resp Rate: 24 Vt: 483 Heart Rate: 70 End Time: 2245 Minute Volume: 13.2 Resp Rate: 27 Vt: 489 Heart Rate: 69 Current Medications: Current Medications Sig/Buck Start time Last Medication Dose Route Stop Time Status Admin Acetaminophen 1,000 MG Q6P PRN 07/16 0530 07/20 N/A 1 UNIT IV 0659 Albuterol Sulfate 3 ML EVERY 4 HRS/AWAKE 07/27 0800 AC 08/16 INH 0758 Alteplase, 2 MG ONE ONE 08/15 1915 DC 08/15 Recombinant IV 08/15 Ampicillin Sodium/ 3,000 MG Q6H 08/10 2300 DC 08/16 Sulbactam Sodium IV 0509 Sodium Chloride 100 ML Budesonide/ 2 PUF BID 07/26 1056 08/16 Formoterol Fumarate INH 0759 Carvedilol 3.125 MG BID 07/28 1000 AC 08/16 PO 0938 Ciprofloxacin 400 MG Q12H 08/11 0500 08/16 Dextrose/Water 200 ML IV 0554 Fentanyl Citrate 0 .STK-MED ONE 08/15 1514 DC .ROUTE Fentanyl Citrate 25 MCG Q4P PRN 08/05 2130 08/14 IV 1217 Glycerin 2 SPRAY Q2P PRN 08/10 0445 AC 08/10 PO 2124 Heparin Sodium 5,000 UNIT Q8 08/05 1400 AC 08/16 (Porcine) SC 0509 Insulin Aspart 0 Q4 07/25 1000 AC 08/16 SC 0502 Insulin Detemir 17 UNITS BID 08/13 2200 AC 08/16 SC 0938 Lidocaine 1 ML .STK-MED ONE 08/15 1846 DC ID 08/15 1847 Magnesium Oxide 400 MG ONE ONE 08/16 0845 CAN PO 08/16 0846 Magnesium Sulfate 1 GM ONCE ONE 08/16 0415 DC 08/16 Dextrose/Water 100 ML IV 08/16 0814 0412 Metronidazole 500 MG IQ8 08/16 1600 AC N/A 1 UNIT IV Midazolam HCl 0 .STK-MED ONE 08/15 1514 DC .ROUTE Octreotide Acetate 500 MCG Q20H 07/15 1400 AC 08/15 Dextrose/Water 500 ML IV 2302 Pantoprazole Sodium 40 MG BID 07/10 1016 AC 08/16 IV 0937 Potassium Chloride 40 MEQ ONCE ONE 08/16 0415 DC 08/16 PO 08/16 0416 0412 Potassium Chloride 20 MEQ BID 08/10 2200 AC 08/16 PO 0938 Potassium Phosphate 15 mMol ONE ONE 08/16 0845 CAN Dextrose/Water 250 ML IV 08/16 1249 Impression/Plan Impression/Problem List Impression: This is a 76-year-old male with past medical history of CAD with HFrEF, A. fib, AICD, previous infection of the hip with prolonged antibiotic, history of peptic ulcer disease, diabetes, nephrolithiasis who was transferred to the ICU for perforation of the duodenum with septic shock S/76 year old gentleman PAF on Tikosyn, not on AC, 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 extubated, continues to be on tube feeds. #Endotracheal intubation -Extubation trails failed over the weekend - -Spoke with Dr. Trimble regarding plans for tracheostomy, he will coordinate a date and time this week -We will obtain CT head today to rule out ischemia/infarction for decrease responsiveness #Septic shock - 2/2 peritonitis from perforated duodenal ulcer - Off Levophed -Off stress cortisone #V. tach - F/u cardio recs - Continue Carvedilol 3.125 twice a day with holding parameters #Hx of PAF on Tikosyn - Curently in NSR, and rate controlled - Continue to hold tikosyn # Perforated duodenal ulcer s/p repair -S/P IR drainage witjh palcement of right upper and lower abdominal drainage catheters being green fluid. -Continue ciprofloxacin -Start Flagyl 500 mg every 8 -Discontinue Unasyn -We'll follow ID recommendation #USMAN - Resolved - Continue to montior UOP, monitor BUN increase #Uncontrolled DM, secondary to Sepsis, pressors and octreotide - Continue Levemir 17 units twice a day - Novolog SS every 4 hours - Target Blood sugar 140 -180 - Continue following endocrine recommendation - DVT prophylaxis ALPS and SC heparin - Diet Continue on J tube feeding, rate 75 ml/h - Code Status Full Code Consultation ID, surgery, cardiology, nephrology, endocrinology IV access PICC line right arm Problem List: 1. Duodenal ulcer with perforation Pain Ratin Tomorrow's Labs & Rationales: ICU bundle CBC CXR ABG Plan DVT/Prophylaxis: mechanical, pharmacological
--- NOTE | 2017-08-16 08:59 | RADIOLOGY REPORT ---
EXAMINATION: XR PORTABLE CHEST CLINICAL INFORMATION: Mechanical ventilation. Endotracheal tube position. COMPARISON: 08/14/2017 TECHNIQUE: AP portable semiupright view of the chest. FINDINGS: Endotracheal tube tip terminates 3 cm from the kika. Gastric decompression tube extends off the inferior border of the study. Dual-lead AICD is unchanged. Sternal wires and multiple surgical clips overlie the cardiac and mediastinal contours. Right IJ central venous catheter terminates in the region of the cavoatrial junction. There is persistent opacification of the left lung base with the blunting of the left lateral costophrenic sulcus which likely corresponds to a combination of a small pleural effusion and lower lobe atelectasis as seen on the prior CT. Right basilar atelectasis and small effusion are also unchanged and smaller than the contralateral side. No new airspace opacification. No pneumothorax. Pulmonary vasculature is normal. Cardiac and mediastinal contours are unchanged. IMPRESSION: 1. Endotracheal tube terminates 3 cm from the kika. Tubes and lines are unchanged. 2. Unchanged, small bilateral pleural effusions with associated lower lobe atelectasis, left side greater than right.
--- NOTE | 2017-08-16 10:34 | PN- Infect Dx ---
Subjective Subjective: Afebrile without complaints Objective Last 24 Hrs of Vital Signs/I&O Vital Signs Date Time Temp Pulse Resp B/P B/P Pulse O2 O2 Flow FiO2 Mean Ox Delivery Rate 08/16 0938 98.0 69 25 112/61 08/16 0805 35 08/16 0544 35 08/16 0400 96 Ventilator 35% 08/16 0225 35 08/16 0040 35 08/16 0000 97 Ventilator 35% 08/16 0000 97.7 68 23 100/58 97 Ventilator 35% 08/15 2242 35 08/15 2116 72 105/54 08/15 2000 94 Ventilator 35% 08/15 1921 35 08/15 1713 35 08/15 1600 98 Ventilator 35% 08/15 1600 98.0 68 24 110/70 98 Ventilator 35% 08/15 1430 35 08/15 1200 98 Ventilator 35% 08/15 1155 35 08/15 1019 68 116/56 Intake & Output 08/16 1600 08/16 0800 08/16 0000 Intake Total 1324 1524 Output Total 784 1000 Balance 540 524 Intake, IV 538 759 Intake, Oral 0 Intake, Tube 616 595 Feeding Intake, Tube 170 170 Irrigant Number 2 1 Bowel Movements Output, 195 550 Drainage Output, 50 50 Gastric Drainage Output, Urine 539 400 Physical Exam Other Physical Findings: He is more lethargic but arousable in no acute distress on the ventilator Lungs are clear Heart regular rhythm with no murmur Abdomen is distended, nontender with positive bowel sounds; [address] on the right side of his abdomen with 180 mL output from #1 and 400 mL output from #2 yesterday; left-sided abdominal catheter remains in place with no output ; incision with decreased drainage from the inferior aspect Extremities no cyanosis, clubbing or edema; PICC in the right upper extremity with no inflammation at the site Duvall catheter remains in place Results Last 24 Hours of Lab Results: Laboratory Tests 08/16 0320 Chemistry Sodium (137 - 145 mmol/L) 142 Potassium (3.5 - 5.1 mmol/L) 3.5 Chloride (98 - 107 mmol/L) 109 H Carbon Dioxide (22 - 30 mmol/L) 25 Anion Gap (5 - 16) 8 BUN (9 - 20 mg/dL) 24 H Creatinine (0.7 - 1.2 mg/dL) 0.6 L Estimated GFR (>60 ml/min) > 60 Glucose (65 - 99 mg/dL) 130 H Calcium (8.4 - 10.2 mg/dL) 7.6 L Phosphorus (2.5 - 4.5 mg/dL) 3.5 Magnesium (1.6 - 2.3 mg/dL) 1.8 Total Bilirubin (0.2 - 1.3 mg/dL) 0.4 AST (17 - 59 U/L) 44 ALT (21 - 72 U/L) 78 H Albumin (3.5 - 5.0 g/dL) 2.0 L Hematology CBC w Diff NO MAN DIFF REQ WBC (4.8 - 10.8 /CUMM) 10.0 RBC (4.70 - 6.10 /CUMM) 3.02 L Hgb (14.0 - 18.0 G/DL) 8.9 L Hct (42 - 52 %) 27.8 L MCV (80.0 - 94.0 FL) 92.1 MCH (27.0 - 31.0 PG) 29.4 RDW (11.5 - 14.5 %) 22.2 H Plt Count (130 - 400 /CUMM) 247 MPV (7.4 - 10.4 FL) 7.6 Gran % (42.2 - 75.2 %) 57.6 Lymphocytes % (20.5 - 51.1 %) 34.1 Monocytes % (1.7 - 9.3 %) 7.2 Eosinophils % (0 - 5 %) 0.6 Basophils % (0.0 - 2.0 %) 0.5 Absolute Granulocytes (1.4 - 6.5 /CUMM) 5.7 Absolute Lymphocytes (1.2 - 3.4 /CUMM) 3.4 Absolute Monocytes (0.10 - 0.60 /CUMM) 0.7 H Absolute Eosinophils (0.0 - 0.7 /CUMM) 0.1 Absolute Basophils (0.0 - 0.2 /CUMM) 0.1 PUBS MCHC (33.0 - 37.0 G/DL) 31.9 L Last 24 Hours of Les Results: Stool C. difficile August 15 pending Recent Imaging Studies: Chest x-ray August 16, personally reviewed, reveals no change in the bibasilar densities Assessment/Plan Impression: Overall status remains poor, though stable, now 1 day status post drainage of 2 right sided collections, which had developed secondary to the ongoing leakage from the failed duodenal repair 31 days ago, now 38 days status post his initial surgery for the perforated duodenal ulcer and 8 days status post drainage of a left abdominal collection secondary to Enterobacter, for which he remains on Ciprofloxacin and which has resolved on his recent CT scan. He is also on Unasyn for the Staph aureus from the sputum culture, which most likely represents colonization, with his stable respiratory status and chest x-ray. I am reluctant to commit him to another prolonged course of antibiotics, but he is clearly at continued risk for the development of recurrent collections as long as his enteric leak persists. Unfortunately no cultures were submitted from yesterday's procedure; therefore he will need to be continued on empiric treatment for these. Suggestion: 1. Remove the left abdominal catheter 2. Would remove Duvall catheter 3. Discontinue Unasyn 4. Begin Flagyl 500 mg IV every 8 hours 5. Continue Ciprofloxacin
--- NOTE | 2017-08-16 11:20 | CT SCAN REPORT ---
EXAMINATION: CT HEAD WITHOUT CONTRAST CLINICAL INFORMATION: 76-year-old man with decreased responsiveness. COMPARISON: 10/16/[address] TECHNIQUE: Contiguous axial imaging was performed from the skull base to vertex without intravenous administration of contrast. DLP: 728 mGy-cm FINDINGS: There is a new area of hypodensity in the right cerebellar hemisphere that reflects an age indeterminate, although suspected late subacute to chronic area of infarction that is new since the prior head CT. A stable area of chronic infarction in the right occipital lobe is again noted. There is cortical and juxtacortical hypodensity in the left precentral gyrus at the frontal convexity that is also new and could reflect a more subacute area of infarction. Additional chronic small vessel ischemic changes are noted throughout the supratentorial white matter along with chronic volume loss. A nasogastric tube is seen with fluid pooling in the nasopharynx. There is a fluid level in the sphenoid sinus, partial opacification of right anterior ethmoid air cells, and complete opacification of the right frontal sinus. There is also complete opacification of bilateral mastoid air cells and perhaps also the middle ear cavities. IMPRESSION: 1. Areas of hypodensity in the right cerebellum and at the left frontal convexity are new since the prior study and represent age indeterminate regions of infarction. The right cerebellar region is suspected to be late subacute to chronic, while the left frontal region could be more subacute. 2. Extensive sinus and mastoid disease.
--- NOTE | 2017-08-16 14:17 | PN- General Surgery ---
Surgical Brief Attending Note Brief Attending Note: Tracheostomy scheduled for Tuesday. CT brain findings noted. Will need to discuss with family goals of care prior to tracheostomy.
[2017-08-16 16:00] VITALS: BP 100/60
--- NOTE | 2017-08-16 16:23 | ULTRASOUND REPORT ---
EXAMINATION: US DUPLEX CAROTID AND VERTEBRAL CLINICAL INFORMATION: 76-year-old male with multiple chronic and subacute cerebral infarcts. Patient is intubated. COMPARISON: None TECHNIQUE: Real-time ultrasound and Doppler techniques (integrating B-mode 2D vascular images, Doppler spectral analysis and color flow Doppler imaging) were utilized to interrogate the extracranial carotid and vertebral arteries on the right. The left carotid arteries could not be visualized secondary to patient positioning. The degree of stenosis determined by criteria similar to NASCET. FINDINGS: 1. On the right: Plaque is present at the carotid bifurcation but velocity measurements are normal and do not suggest a stenosis of greater than 50% diameter reduction in the right ICA. The vertebral artery is patent demonstrating antegrade flow. The common carotid artery velocity is 69 cm/s. The internal carotid artery velocities are 102 cm/s systolic and 17 cm/s diastolic. The external carotid artery velocity is 27 cm/s. 2. On the left: Vessels were not visualized secondary to patient positioning. IMPRESSION: There is plaque present in the right internal carotid artery with normal velocities consistent with a minimal 0-49% stenosis. The left side could not be evaluated secondary to patient positioning.
[2017-08-17] VITALS: BP 114/64
[2017-08-17 05:11] LABS: ABSOLUTE BASOPHIL COUNT 0 /CUMM (0.0-0.2); ABSOLUTE EOSINOPHIL COUNT 0.1 /CUMM (0.0-0.7); ABSOLUTE GRANULOCYTE CT 5.2 /CUMM (1.4-6.5); ABSOLUTE LYMPH COUNT 2.8 /CUMM (1.2-3.4); ABSOLUTE MONOCYTE COUNT 0.7 /CUMM (0.10-0.60); BASOPHIL % 0.5 % (0.0-2.0); EOSINOPHIL % 0.9 % (0-5); GRANULOCYTE % 58.5 % (42.2-75.2); HEMATOCRIT 26.3 % (42-52); MEAN CORPUSCULAR HGB CONC 31.4 G/DL (33.0-37.0); MEAN CORPUSCULAR VOLUME 92.4 FL (80.0-94.0); MEAN PLATELET VOLUME 8.1 FL (7.4-10.4); PLATELET COUNT 224 /CUMM (130-400); RBC DISTRIBUTION WIDTH 21.8 % (11.5-14.5); RED BLOOD CELL CT 2.85 /CUMM (4.70-6.10); WHITE BLOOD CELL COUNT 8.9 /CUMM (4.8-10.8)
[2017-08-17 08:00] VITALS: BP 120/60
--- NOTE | 2017-08-17 08:34 | PN- Diabetes ---
Assessment/Plan Assessment: 76-year-old male with Hx of CAD with low ejection fraction, atrial fibrillation, AICD, previous infection of hip with prolonged antibiotic, history of peptic ulcer disease, diabetes and renal stone, was admitted for perforation of duodenum now with septic shock in ICU. He was on 3 pressors, TPN, octreotide drip and bicarb drip. His BP remained low and stress dose of steroid was initiated despite his am cortisol was 24.8. Patient is still on octreotide drip. Patient was re-intubated on 07/26/2017. Hydrocortisone was discontinued on 08/13/2017. Currently he is on tube feeding with Vital 85 mL per hour. Levemir was decreased to 17 units twice a day and Novolog coverage every 4 hours was adjusted multiple times. The patient's most recent blood sugars were 183, 174 and 161. Plan: continue the current insulin regimen for now; monitor FSGs. will follow. Subjective Subjective: He remains intubated. Objective Last 24 Hrs of Vital Signs/I&O Vital Signs Date Time Temp Pulse Resp B/P B/P Pulse O2 O2 Flow FiO2 Mean Ox Delivery Rate 08/17 0820 35 08/17 0554 35 08/17 0400 96 Ventilator 35% 08/17 0328 35 08/17 0056 35 08/17 0000 96 Ventilator 35% 08/17 0000 99.1 69 14 114/64 96 Ventilator 35% 08/16 2214 35 08/16 2135 69 113/58 08/16 2000 96 Ventilator 35% 08/16 1933 35 08/16 1630 35 08/16 1600 96 Ventilator 35% 08/16 1600 98.4 69 19 100/60 96 Ventilator 35% 08/16 1429 35 08/16 1211 35 08/16 1200 99 Ventilator 35% 08/16 0938 98.0 69 25 112/61 Intake & Output 08/17 1600 08/17 0800 08/17 0000 Intake Total 1270 1340 Output Total 455 390 Balance 815 950 Intake, IV 524 554 Intake, Tube 656 586 Feeding Intake, Tube 90 200 Irrigant Output, 55 40 Drainage Output, Other 0 0 Output, Urine 400 350 Findings Pertinent Lab/Les Results: Laboratory Tests 08/17 0415 Chemistry Sodium (137 - 145 mmol/L) 142 Potassium (3.5 - 5.1 mmol/L) 4.0 Chloride (98 - 107 mmol/L) 109 H Carbon Dioxide (22 - 30 mmol/L) 23 Anion Gap (5 - 16) 10 BUN (9 - 20 mg/dL) 23 H Creatinine (0.7 - 1.2 mg/dL) 0.6 L Estimated GFR (>60 ml/min) > 60 Glucose (65 - 99 mg/dL) 141 H Calcium (8.4 - 10.2 mg/dL) 7.9 L Phosphorus (2.5 - 4.5 mg/dL) 3.0 Magnesium (1.6 - 2.3 mg/dL) 1.9 Total Bilirubin (0.2 - 1.3 mg/dL) 0.3 AST (17 - 59 U/L) 35 ALT (21 - 72 U/L) 62 Albumin (3.5 - 5.0 g/dL) 2.0 L Hematology CBC w Diff NO MAN DIFF REQ WBC (4.8 - 10.8 /CUMM) 8.9 RBC (4.70 - 6.10 /CUMM) 2.85 L Hgb (14.0 - 18.0 G/DL) 8.3 L Hct (42 - 52 %) 26.3 L MCV (80.0 - 94.0 FL) 92.4 MCH (27.0 - 31.0 PG) 29.0 RDW (11.5 - 14.5 %) 21.8 H Plt Count (130 - 400 /CUMM) 224 MPV (7.4 - 10.4 FL) 8.1 Gran % (42.2 - 75.2 %) 58.5 Lymphocytes % (20.5 - 51.1 %) 31.9 Monocytes % (1.7 - 9.3 %) 8.2 Eosinophils % (0 - 5 %) 0.9 Basophils % (0.0 - 2.0 %) 0.5 Absolute Granulocytes (1.4 - 6.5 /CUMM) 5.2 Absolute Lymphocytes (1.2 - 3.4 /CUMM) 2.8 Absolute Monocytes (0.10 - 0.60 /CUMM) 0.7 H Absolute Eosinophils (0.0 - 0.7 /CUMM) 0.1 Absolute Basophils (0.0 - 0.2 /CUMM) 0 PUBS MCHC (33.0 - 37.0 G/DL) 31.4 L
--- NOTE | 2017-08-17 09:09 | PN- Resident CRCU ---
Subjective HPI/CRCU Issues: Seen and examined this morning, intubated, responsive to sound by opening eyes. CT head was obtained today that revealed subacute and chronic infarctions, patient was started on low-dose aspirin after confirming with surgery, statin. Coronary artery ultrasound was obtained as well. 24 Hour Events: Temperature 98.7, MAXIMUM TEMPERATURE 99.8 Heart rate lowest 68, highest 69 based Blood pressure lowest 98/55, highest 119/57 Mechanical ventilator AC/VC 500/35/10/5 saturating 98% Intake 3735, output 1850 Drainage from right upper and lower abdomen quadrant total of 57 4 mL per 24 hours Left abdominal catheter drained 15 mL in 24 hours Objective Vital Signs & I&O Last 8 Hrs of Vitals and I&O: 1111 Exam General Appearance: intubated Head: atraumatic, normal appearance Neck: normal inspection, supple Respiratory: normal breath sounds, chest non-tender, no respiratory distress Cardiovascular: regular rate/rhythm Gastrointestinal: normal bowel sounds, soft, Surgical incision, with purulent drainage 2 drainge catheters in U ans L RQ laft side catheter Extremities: normal inspection, normal capillary refill, normal range of motion, +1 edema right>Left Weaning Parameters NIF: 25 Minute Volume: 14.1 Resp rate: 35 Vt: 403 Heart Rate: 69 Weaning Schedule Start Time: 2030 Minute Volume: 11.5 Resp Rate: 24 Vt: 483 Heart Rate: 70 End Time: 2245 Minute Volume: 13.2 Resp Rate: 27 Vt: 489 Heart Rate: 69 Current Medications: Current Medications Sig/Buck Start time Last Medication Dose Route Stop Time Status Admin Acetaminophen 1,000 MG Q6P PRN 07/16 0530 AC 07/20 N/A 1 UNIT IV 0659 Albuterol Sulfate 3 ML EVERY 4 HRS/AWAKE 07/27 0800 AC 08/17 INH 1316 Aspirin 81 MG DAILY 08/16 2345 AC 08/17 PO 0946 Atorvastatin Calcium 40 MG 1700 08/16 1700 AC 08/16 PO 1817 Budesonide/ 2 PUF BID 07/26 1056 AC 08/17 Formoterol Fumarate INH 0816 Carvedilol 3.125 MG BID 07/28 1000 AC 08/17 PO 0945 Ciprofloxacin 400 MG Q12H 08/11 0500 AC 08/17 Dextrose/Water 200 ML IV 0411 Fentanyl Citrate 25 MCG Q4P PRN 08/05 2130 AC 08/14 IV 1217 Glycerin 2 SPRAY Q2P PRN 08/10 0445 AC 08/10 PO 2124 Heparin Sodium 5,000 UNIT Q8 08/05 1400 AC 08/17 (Porcine) SC 0556 Insulin Aspart 0 Q4 07/25 1000 08/17 SC 0958 Insulin Detemir 17 UNITS BID 08/13 2200 08/17 SC 0945 Metronidazole 500 MG IQ8 08/16 1600 AC 08/17 N/A 1 UNIT IV 0914 Octreotide Acetate 500 MCG Q20H 07/15 1400 AC 08/16 Dextrose/Water 500 ML IV 2137 Pantoprazole Sodium 40 MG BID 07/10 1016 08/17 IV 0945 Potassium Chloride 20 MEQ BID 08/10 2200 08/17 PO 0946 Impression/Plan Impression/Problem List Impression: This is a 76-year-old male with past medical history of CAD with HFrEF, A. fib, AICD, previous infection of the hip with prolonged antibiotic, history of peptic ulcer disease, diabetes, nephrolithiasis who was transferred to the ICU for perforation of the duodenum with septic shock S/76 year old gentleman PAF on Tikosyn, not on AC, 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 extubated, continues to be on tube feeds. #Endotracheal intubation -Extubation trails failed over the weekend, will try toady -Plans for tracheostomy this tuesday if patient continues to fail extubation trials however gaols of care will be adressed with the family again. #Stroke -CT head without CT head was obtained yesterday that revealed areas of hypodensity in the right cerebellum and at the left frontal convexity that are new since the prior study and represent age indeterminate regions of infarction. The right cerebellar region is suspected to be late subacute to chronic, while the left frontal region could be more subacute. -Patient was started on low-dose aspirin and statin yesterday. -Carotid Doppler was obtained that revealed to 45% obstruction of right carotid artery however left carotid artery have not been assessed because of positioning difficulties. #Septic shock--resolved - 2/2 peritonitis from perforated duodenal ulcer - Off Levophed -Off stress cortisone #V. tach - F/u cardio recs - Continue Carvedilol 3.125 twice a day with holding parameters #Hx of PAF on Tikosyn - Curently in NSR, and rate controlled - Continue to hold tikosyn # Perforated duodenal ulcer s/p repair -S/P IR drainage witjh palcement of right upper and lower abdominal drainage catheters being green fluid. -Continue ciprofloxacin -Continue Flagyl 500 mg every 8 -We'll follow ID recommendation #USMAN - Resolved - Continue to montior UOP, monitor BUN increase #Uncontrolled DM, secondary to Sepsis, pressors and octreotide - Continue Levemir 17 units twice a day - Novolog SS every 4 hours - Target Blood sugar 140 -180 - Continue following endocrine recommendation - DVT prophylaxis ALPS and SC heparin - Diet Continue on J tube feeding, rate 75 ml/h - Code Status DNR Consultation ID, surgery, cardiology, nephrology, endocrinology IV access PICC line right arm Problem List: 1. Duodenal ulcer with perforation Pain Ratin Tomorrow's Labs & Rationales: ICU bundle CBC CXR Plan DVT/Prophylaxis: mechanical, pharmacological
--- NOTE | 2017-08-17 10:35 | PN- Infect Dx ---
Subjective Subjective: Afebrile without complaints Objective Last 24 Hrs of Vital Signs/I&O Vital Signs Date Time Temp Pulse Resp B/P B/P Pulse O2 O2 Flow FiO2 Mean Ox Delivery Rate 08/17 0945 97.8 69 25 125/65 08/17 0820 35 08/17 0554 35 08/17 0400 96 Ventilator 35% 08/17 0328 35 08/17 0056 35 08/17 0000 96 Ventilator 35% 08/17 0000 99.1 69 14 114/64 96 Ventilator 35% 08/16 2214 35 08/16 2135 69 113/58 08/16 2000 96 Ventilator 35% 08/16 1933 35 08/16 1630 35 08/16 1600 96 Ventilator 35% 08/16 1600 98.4 69 19 100/60 96 Ventilator 35% 08/16 1429 35 08/16 1211 35 08/16 1200 99 Ventilator 35% Intake & Output 08/17 1600 08/17 0800 08/17 0000 Intake Total 1270 1340 Output Total 455 390 Balance 815 950 Intake, IV 524 554 Intake, Tube 656 586 Feeding Intake, Tube 90 200 Irrigant Output, 55 40 Drainage Output, Other 0 0 Output, Urine 400 350 Physical Exam Other Physical Findings: He is lethargic but arousable on the ventilator in no acute distress Lungs are clear Heart regular rhythm with no murmur Abdomen is distended, nontender with positive bowel sounds; right sided drains in place with 240 mL output from drain #2 and 490 mL output from drain #3 yesterday; left drainage catheter with 35 mL output reported yesterday Extremities no cyanosis, clubbing or edema; PICC in the right upper extremity with no inflammation at the site Duvall catheter remains in place Results Last 24 Hours of Lab Results: Laboratory Tests 08/175 Chemistry Sodium (137 - 145 mmol/L) 142 Potassium (3.5 - 5.1 mmol/L) 4.0 Chloride (98 - 107 mmol/L) 109 H Carbon Dioxide (22 - 30 mmol/L) 23 Anion Gap (5 - 16) 10 BUN (9 - 20 mg/dL) 23 H Creatinine (0.7 - 1.2 mg/dL) 0.6 L Estimated GFR (>60 ml/min) > 60 Glucose (65 - 99 mg/dL) 141 H Calcium (8.4 - 10.2 mg/dL) 7.9 L Phosphorus (2.5 - 4.5 mg/dL) 3.0 Magnesium (1.6 - 2.3 mg/dL) 1.9 Total Bilirubin (0.2 - 1.3 mg/dL) 0.3 AST (17 - 59 U/L) 35 ALT (21 - 72 U/L) 62 Albumin (3.5 - 5.0 g/dL) 2.0 L Hematology CBC w Diff NO MAN DIFF REQ WBC (4.8 - 10.8 /CUMM) 8.9 RBC (4.70 - 6.10 /CUMM) 2.85 L Hgb (14.0 - 18.0 G/DL) 8.3 L Hct (42 - 52 %) 26.3 L MCV (80.0 - 94.0 FL) 92.4 MCH (27.0 - 31.0 PG) 29.0 RDW (11.5 - 14.5 %) 21.8 H Plt Count (130 - 400 /CUMM) 224 MPV (7.4 - 10.4 FL) 8.1 Gran % (42.2 - 75.2 %) 58.5 Lymphocytes % (20.5 - 51.1 %) 31.9 Monocytes % (1.7 - 9.3 %) 8.2 Eosinophils % (0 - 5 %) 0.9 Basophils % (0.0 - 2.0 %) 0.5 Absolute Granulocytes (1.4 - 6.5 /CUMM) 5.2 Absolute Lymphocytes (1.2 - 3.4 /CUMM) 2.8 Absolute Monocytes (0.10 - 0.60 /CUMM) 0.7 H Absolute Eosinophils (0.0 - 0.7 /CUMM) 0.1 Absolute Basophils (0.0 - 0.2 /CUMM) 0 PUBS MCHC (33.0 - 37.0 G/DL) 31.4 L Last 24 Hours of Les Results: No new cultures Recent Imaging Studies: CT of the head August 16 reveals a new area of hypodensity in the right cerebellar hemisphere, age indeterminate; cortical and juxtacortical hypodensity in the left precentral gyrus possibly new or subacute; extensive sinus and mastoid disease Carotid ultrasound August 16 reveal a minimal 0-49% stenosis on the right; the left could not be evaluated Assessment/Plan Impression: Overall status remains poor, though stable, now 2 days status post drainage of 2 right sided collections, which had developed secondary to the ongoing leakage from the unsuccessful duodenal repair 32 days ago, now 39 days status post his initial surgery for the perforated duodenal ulcer and 9 days status post drainage of a left abdominal collection secondary to Enterobacter, for which he remains on Ciprofloxacin and which has resolved on his recent CT scan. I am reluctant to commit him to another prolonged course of antibiotics, but he is clearly at continued risk for the development of recurrent collections as long as his enteric leak persists. The CT findings of sinusitis are of unclear significance and would not pursue further evaluation at this time. His CT scan also revealed evidence of possibly subacute infarcts, which are also of unclear significance. Suggestion: 1. Remove the left abdominal catheter 2. Would remove Duvall catheter 3. Continue Ciprofloxacin and Flagyl
--- NOTE | 2017-08-17 10:38 | RADIOLOGY REPORT ---
EXAMINATION: CR PORTABLE CHEST CLINICAL INFORMATION: ET tube positioning. COMPARISON: Several prior chest x-rays, most recent of which is dated 08/16/2017. TECHNIQUE: Portable AP semierect view of the chest was obtained. FINDINGS: The patient is status post median sternotomy and CABG surgery. Right atrial pacer lead and right ventricular ICD lead are seen in place. Endotracheal tube tip is approximately 4.7 cm above the kika. Enteric tube courses into the abdomen with tip not included. Right subclavian PICC line is in place with tip poorly seen in the distal SVC region. The cardiomediastinal silhouette is within normal limits in size. Bilateral small layering pleural effusions and associated mild right basilar subsegmental atelectasis again seen, unchanged. Lungs otherwise unremarkable. No pneumothorax. Bony structures unremarkable. IMPRESSION: 1. Endotracheal tube tip approximately 4.7 cm above the kika. 2. Enteric tube tip in the abdomen not included. 3. Right subclavian PICC line tip poorly seen but in region of the distal SVC. 4. No significant change in small bilateral pleural effusions and associated bibasilar atelectasis.
--- NOTE | 2017-08-17 14:36 | PN- CRCU ---
Subjective HPI/Critical Care Issues: Doing poorly Stroke noted Objective Current Medications: Current Medications Sig/Buck Start time Last Medication Dose Route Stop Time Status Admin Acetaminophen 1,000 MG Q6P PRN 07/16 0530 AC 07/20 N/A 1 UNIT IV 0659 Albuterol Sulfate 3 ML EVERY 4 HRS/AWAKE 07/27 0800 AC 08/17 INH 1316 Aspirin 81 MG DAILY 08/16 2345 AC 08/17 PO 0946 Atorvastatin Calcium 40 MG 1700 08/16 1700 AC 08/16 PO 1817 Budesonide/ 2 PUF BID 07/26 1056 AC 08/17 Formoterol Fumarate INH 0816 Carvedilol 3.125 MG BID 07/28 1000 AC 08/17 PO 0945 Ciprofloxacin 400 MG Q12H 08/11 0500 AC 08/17 Dextrose/Water 200 ML IV 0411 Fentanyl Citrate 25 MCG Q4P PRN 08/05 2130 AC 08/14 IV 1217 Glycerin 2 SPRAY Q2P PRN 08/10 0445 AC 08/10 PO 2124 Heparin Sodium 5,000 UNIT Q8 08/05 1400 AC 08/17 (Porcine) SC 0556 Insulin Aspart 0 Q4 07/25 1000 AC 08/17 SC 0958 Insulin Detemir 17 UNITS BID 08/13 2200 08/17 SC 0945 Metronidazole 500 MG IQ8 08/16 1600 AC 08/17 N/A 1 UNIT IV 0914 Octreotide Acetate 500 MCG Q20H 07/15 1400 AC 08/16 Dextrose/Water 500 ML IV 2137 Pantoprazole Sodium 40 MG BID 07/10 1016 08/17 IV 0945 Potassium Chloride 20 MEQ BID 08/10 2200 AC 08/17 PO 0946 Vital Signs & I&O Last 24 Hrs of Vitals and I&O: Vital Signs Date Time Temp Pulse Resp B/P B/P Pulse O2 O2 Flow FiO2 Mean Ox Delivery Rate 08/17 1200 97 Ventilator 35% 08/17 1124 35 08/17 0945 97.8 69 25 125/65 08/17 0820 35 08/17 0800 97 Ventilator 35% 08/17 0800 97.8 69 18 120/60 97 Ventilator 35% 08/17 0554 35 08/17 0400 96 Ventilator 35% 08/17 0328 35 08/17 0056 35 08/17 0000 96 Ventilator 35% 08/17 0000 99.1 69 14 114/64 96 Ventilator 35% 08/16 2214 35 08/16 2135 69 113/58 08/16 2000 96 Ventilator 35% 08/16 1933 35 08/16 1630 35 08/16 1600 96 Ventilator 35% 08/16 1600 98.4 69 19 100/60 96 Ventilator 35% 08/16 1429 35 Intake & Output 08/17 1600 08/17 0800 08/17 0000 Intake Total 1270 1340 Output Total 455 390 Balance 815 950 Intake, IV 524 554 Intake, Tube 656 586 Feeding Intake, Tube 90 200 Irrigant Output, 55 40 Drainage Output, Other 0 0 Output, Urine 400 350 Laboratory Tests 08/17 08/16 0415 0320 Chemistry Sodium (137 - 145 mmol/L) 142 142 Potassium (3.5 - 5.1 mmol/L) 4.0 3.5 Chloride (98 - 107 mmol/L) 109 H 109 H Carbon Dioxide (22 - 30 mmol/L) 23 25 Anion Gap (5 - 16) 10 8 BUN (9 - 20 mg/dL) 23 H 24 H Creatinine (0.7 - 1.2 mg/dL) 0.6 L 0.6 L Estimated GFR (>60 ml/min) > 60 > 60 Glucose (65 - 99 mg/dL) 141 H 130 H Calcium (8.4 - 10.2 mg/dL) 7.9 L 7.6 L Phosphorus (2.5 - 4.5 mg/dL) 3.0 3.5 Magnesium (1.6 - 2.3 mg/dL) 1.9 1.8 Total Bilirubin (0.2 - 1.3 mg/dL) 0.3 0.4 AST (17 - 59 U/L) 35 44 ALT (21 - 72 U/L) 62 78 H Albumin (3.5 - 5.0 g/dL) 2.0 L 2.0 L Triglycerides (<150 mg/dL) 135 Cholesterol (< 200 MG/DL) 76 LDL Cholesterol, Calc (65 - 129 mg/dL) 20 L HDL Cholesterol (40 - 60 mg/dL) 29 L Cholesterol/HDL Ratio (0.00 - 4.88 %) 3 Hematology CBC w Diff NO MAN DIFF REQ NO MAN DIFF REQ WBC (4.8 - 10.8 /CUMM) 8.9 10.0 RBC (4.70 - 6.10 /CUMM) 2.85 L 3.02 L Hgb (14.0 - 18.0 G/DL) 8.3 L 8.9 L Hct (42 - 52 %) 26.3 L 27.8 L MCV (80.0 - 94.0 FL) 92.4 92.1 MCH (27.0 - 31.0 PG) 29.0 29.4 RDW (11.5 - 14.5 %) 21.8 H 22.2 H Plt Count (130 - 400 /CUMM) 224 247 MPV (7.4 - 10.4 FL) 8.1 7.6 Gran % (42.2 - 75.2 %) 58.5 57.6 Lymphocytes % (20.5 - 51.1 %) 31.9 34.1 Monocytes % (1.7 - 9.3 %) 8.2 7.2 Eosinophils % (0 - 5 %) 0.9 0.6 Basophils % (0.0 - 2.0 %) 0.5 0.5 Absolute Granulocytes (1.4 - 6.5 /CUMM) 5.2 5.7 Absolute Lymphocytes (1.2 - 3.4 /CUMM) 2.8 3.4 Absolute Monocytes (0.10 - 0.60 /CUMM) 0.7 H 0.7 H Absolute Eosinophils (0.0 - 0.7 /CUMM) 0.1 0.1 Absolute Basophils (0.0 - 0.2 /CUMM) 0 0.1 PUBS MCHC (33.0 - 37.0 G/DL) 31.4 L 31.9 L Microbiology Date/Time Procedure - Status Source Growth 08/15 1830 Clostridium difficile Toxin A & B - COMP STOOL Impression/Plan Impression/Plan Impression/Plan: Afebrile. Intubated Skin reveals no rash. HEENT negative. Neck supple with no adenopathy; Picc line in place Lungs decreased breath sounds bilaterally. Heart regular rhythm with no murmur. Abdomen is obese, distended, tender to palpation, Incision noted with a gabriela drain in the rt side, feeding tube on the left side Extremities superficial ulcerations over the anterior tibial aspects of both legs, with 1+ edema bilaterally. Neuro is without focality. 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 with prolonged antibiotic, previous history of peptic ulcer disease, diabetes, sinus rhythm upon admission was on Tikosyn, hyperlipidemia, apparently has never smoked before, previous history of lithotripsy, CABG, previous hip prosthesis infection status post removal of prosthesis in early 2017 now has the following issues * S/p Perf large DU ulcer s/p surg with unsuccessful du repair with peritonitis, persistant leak / now has sig gabriela drainage with ng suction and somatostatin / Patient now has significant fluid collection in the right paracolic gutter reinsertion of pig tail with prob has necrotizing fascitis of the abd wall * S/p Severe shock septic on multiple pressors now off pressors, with ongoing intraabd sepsis and prob atx and pna * Resolving Hypoxic respiratory failureSputum does have enterobacter and staph * Sig drainage from the gabriela biliary leak and fluid collection which is ongoing/ with fluid collection which is pyogenic * Significant ischemic heart disease with low ejection fraction high risk for fluid overload. Previous pafib in sinus now with a pacer and AICD. 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 * H/O LIAM was on cpap * On stress dose steroids now being weaned off * On and off diarrhea * CT reviewed pt has a stroke and sig sinusitis RECOMMENDATION * COnt current care and antibiotics per ID * PT is clearly not making any progress disussed with * Attempt trials daily not ready for extubation but may need a trial of extubation * Intravenous pantoprazole * Heparin subcutaneous * PT would need a trach and Surg is aware and if he does not have good response he should get a trach soon DNR and meeting tommorow discussed with nephew again and he will get back to us soon Pt critically ill tts 38 mins
[2017-08-17 16:00] VITALS: BP 118/70
[2017-08-18] VITALS: BP 112/64
[2017-08-18 05:37] LABS: ABSOLUTE BASOPHIL COUNT 0 /CUMM (0.0-0.2); ABSOLUTE EOSINOPHIL COUNT 0.1 /CUMM (0.0-0.7); ABSOLUTE GRANULOCYTE CT 5.4 /CUMM (1.4-6.5); ABSOLUTE LYMPH COUNT 2.8 /CUMM (1.2-3.4); ABSOLUTE MONOCYTE COUNT 0.6 /CUMM (0.10-0.60); BASOPHIL % 0.4 % (0.0-2.0); EOSINOPHIL % 1.1 % (0-5); GRANULOCYTE % 60.2 % (42.2-75.2); MEAN CORPUSCULAR HGB CONC 32.3 G/DL (33.0-37.0); MEAN CORPUSCULAR VOLUME 92.7 FL (80.0-94.0); MEAN PLATELET VOLUME 8.4 FL (7.4-10.4); PLATELET COUNT 218 /CUMM (130-400); RBC DISTRIBUTION WIDTH 21.4 % (11.5-14.5); RED BLOOD CELL CT 2.91 /CUMM (4.70-6.10); WHITE BLOOD CELL COUNT 8.9 /CUMM (4.8-10.8)
--- NOTE | 2017-08-18 07:40 | PN- Resident CRCU ---
Objective Weaning Parameters NIF: 25 Minute Volume: 14.1 Resp rate: 35 Vt: 403 Heart Rate: 69 Weaning Schedule Start Time: 2029 Minute Volume: 11.5 Resp Rate: 24 Vt: 483 Heart Rate: 70 End Time: 2245 Minute Volume: 13.2 Resp Rate: 27 Vt: 489 Heart Rate: 69 Impression/Plan Impression/Problem List Impression: This is a 76-year-old male with past medical history of CAD with HFrEF, A. fib, AICD, previous infection of the hip with prolonged antibiotic, history of peptic ulcer disease, diabetes, nephrolithiasis who was transferred to the ICU for perforation of the duodenum with septic shock S/76 year old gentleman PAF on Tikosyn, not on AC, 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 extubated, continues to be on tube feeds. #Endotracheal intubation -Extubation trails failed over the weekend, will try toady -Plans for tracheostomy this tuesday if patient continues to fail extubation trials however gaols of care will be adressed with the family again. #Stroke -CT head without CT head was obtained yesterday that revealed areas of hypodensity in the right cerebellum and at the left frontal convexity that are new since the prior study and represent age indeterminate regions of infarction. The right cerebellar region is suspected to be late subacute to chronic, while the left frontal region could be more subacute. -Patient was started on low-dose aspirin and statin yesterday. -Carotid Doppler was obtained that revealed to 45% obstruction of right carotid artery however left carotid artery have not been assessed because of positioning difficulties. #Septic shock--resolved - 2/2 peritonitis from perforated duodenal ulcer - Off Levophed -Off stress cortisone #V. tach - F/u cardio recs - Continue Carvedilol 3.125 twice a day with holding parameters #Hx of PAF on Tikosyn - Curently in NSR, and rate controlled - Continue to hold tikosyn # Perforated duodenal ulcer s/p repair -S/P IR drainage witjh palcement of right upper and lower abdominal drainage catheters being green fluid. -Continue ciprofloxacin -Continue Flagyl 500 mg every 8 -We'll follow ID recommendation #USMAN - Resolved - Continue to montior UOP, monitor BUN increase #Uncontrolled DM, secondary to Sepsis, pressors and octreotide - Continue Levemir 17 units twice a day - Novolog SS every 4 hours - Target Blood sugar 140 -180 - Continue following endocrine recommendation - DVT prophylaxis ALPS and SC heparin - Diet Continue on J tube feeding, rate 75 ml/h - Code Status DNR Consultation ID, surgery, cardiology, nephrology, endocrinology IV access PICC line right arm Plan DVT/Prophylaxis: mechanical, pharmacological
--- NOTE | 2017-08-18 07:47 | PN- Resident CRCU ---
Subjective HPI/CRCU Issues: Seen and examined, no changes in health status, no overnight events. 24 Hour Events: Afebrile, MAXIMUM TEMPERATure 98.9 Heart rate lowest 68, highest 72 based Blood pressure lowest 107/61, highest 125/65 Intubated AC/VC 500/10/35/5 saturating 98% Intake 3937, output 2024 Objective Vital Signs & I&O Last 8 Hrs of Vitals and I&O: 111 Exam General Appearance: no apparent distress, intubated Head: atraumatic, normal appearance Ears, Nose, Throat: normal pharynx Neck: normal inspection, supple Respiratory: normal breath sounds, chest non-tender, no respiratory distress Cardiovascular: regular rate/rhythm Gastrointestinal: normal bowel sounds, soft, non-tender, surgical incision, purulent discharge from the inferior end 2 drainage catheters on right upper lower quadrant Left lower quadrant drainage tube Extremities: normal inspection, normal capillary refill, normal range of motion, +1 pedal edema BL Weaning Parameters NIF: 25 Minute Volume: 14.1 Resp rate: 35 Vt: 403 Heart Rate: 69 Weaning Schedule Start Time: 2029 Minute Volume: 11.5 Resp Rate: 24 Vt: 483 Heart Rate: 70 End Time: 2245 Minute Volume: 13.2 Resp Rate: 27 Vt: 489 Heart Rate: 69 Current Medications: Current Medications Sig/Buck Start time Last Medication Dose Route Stop Time Status Admin Acetaminophen 1,000 MG Q6P PRN 07/16 0530 AC 07/20 N/A 1 UNIT IV 0659 Albuterol Sulfate 3 ML EVERY 4 HRS/AWAKE 07/27 0800 AC 08/18 INH 1153 Aspirin 81 MG DAILY 08/16 2345 AC 08/18 PO 1022 Atorvastatin Calcium 40 MG 1700 08/16 1700 AC 08/17 PO 1736 Budesonide/ 2 PUF BID 07/26 1056 AC 08/18 Formoterol Fumarate INH 0822 Carvedilol 3.125 MG BID 07/28 1000 AC 08/18 PO 1022 Ciprofloxacin 400 MG Q12H 08/11 0500 AC 08/18 Dextrose/Water 200 ML IV 0428 Fentanyl Citrate 25 MCG Q4P PRN 08/05 2130 AC 08/14 IV 1217 Glycerin 2 SPRAY Q2P PRN 08/10 0445 AC 08/10 PO 2124 Heparin Sodium 5,000 UNIT Q8 08/05 1400 AC 08/18 (Porcine) SC 0632 Insulin Aspart 0 Q4 07/25 1000 AC 08/18 SC 1040 Insulin Detemir 17 UNITS BID 08/13 2200 AC 08/18 SC 1040 Metronidazole 500 MG IQ8 08/16 1600 AC 08/18 N/A 1 UNIT IV 0900 Octreotide Acetate 500 MCG Q20H 07/15 1400 AC 08/17 Dextrose/Water 500 ML IV 2055 Pantoprazole Sodium 40 MG BID 07/10 1016 AC 08/18 IV 1012 Potassium Chloride 20 MEQ BID 08/10 2200 AC 08/18 PO 1022 Impression/Plan Impression/Problem List Impression: This is a 76-year-old male with past medical history of CAD with HFrEF, A. fib, AICD, previous infection of the hip with prolonged antibiotic, history of peptic ulcer disease, diabetes, nephrolithiasis who was transferred to the ICU for perforation of the duodenum with septic shock S/76 year old gentleman PAF on Tikosyn, not on AC, 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 extubated, continues to be on tube feeds. #Endotracheal intubation -Extubation trails ongoing however unsuccessful -Plans for tracheostomy this tuesday at 3:30 PM. Goals of care has been discussed with the nephew by Cayden Douglas MD and Dr. Trimble #Stroke -CT head without CT head was obtained yesterday that revealed areas of hypodensity in the right cerebellum and at the left frontal convexity that are new since the prior study and represent age indeterminate regions of infarction. The right cerebellar region is suspected to be late subacute to chronic, while the left frontal region could be more subacute. -Patient was started on low-dose aspirin and statin yesterday. -Carotid Doppler was obtained that revealed to 45% obstruction of right carotid artery however left carotid artery have not been assessed because of positioning difficulties. #Septic shock--resolved - 2/2 peritonitis from perforated duodenal ulcer - Off Levophed -Off stress cortisone #V. tach - F/u cardio recs - Continue Carvedilol 3.125 twice a day with holding parameters #Hx of PAF on Tikosyn - Curently in NSR, and rate controlled - Continue to hold tikosyn # Perforated duodenal ulcer s/p repair -S/P IR drainage witjh palcement of right upper and lower abdominal drainage catheters being green fluid. -Continue ciprofloxacin -Continue Flagyl 500 mg every 8 -We'll follow ID recommendation #USMAN - Resolved - Continue to montior UOP, monitor BUN increase #Uncontrolled DM, secondary to Sepsis, pressors and octreotide - Continue Levemir 17 units twice a day - Novolog SS every 4 hours - Target Blood sugar 140 -180 - Continue following endocrine recommendation - DVT prophylaxis ALPS and SC heparin - Diet Continue on J tube feeding, rate 75 ml/h - Code Status DNR Consultation ID, surgery, cardiology, nephrology, endocrinology IV access PICC line right arm Goals care was discussed with the nephew yesterday by Cayden Douglas MD, plans for close of care discussion with the family today afternoon by Dr. Trimble Problem List: 1. Duodenal ulcer with perforation Pain Ratin Tomorrow's Labs & Rationales: ICU bundle CBC CXR Plan DVT/Prophylaxis: mechanical, pharmacological
[2017-08-18 08:00] VITALS: BP 130/80
--- NOTE | 2017-08-18 08:20 | PN- CRCU ---
Subjective HPI/Critical Care Issues: DOing about the same if not worse awake but has weakness Objective Current Medications: Current Medications Sig/Buck Start time Last Medication Dose Route Stop Time Status Admin Acetaminophen 1,000 MG Q6P PRN 07/16 0530 AC 07/20 N/A 1 UNIT IV 0659 Albuterol Sulfate 3 ML EVERY 4 HRS/AWAKE 07/27 0800 AC 08/17 INH 2025 Aspirin 81 MG DAILY 08/16 2345 AC 08/17 PO 0946 Atorvastatin Calcium 40 MG 1700 08/16 1700 AC 08/17 PO 1736 Budesonide/ 2 PUF BID 07/26 1056 AC 08/17 Formoterol Fumarate INH 1929 Carvedilol 3.125 MG BID 07/28 1000 AC 08/17 PO 210 Ciprofloxacin 400 MG Q12H 08/11 0500 AC 08/18 Dextrose/Water 200 ML IV 0428 Fentanyl Citrate 25 MCG Q4P PRN 08/05 2130 AC 08/14 IV 1217 Glycerin 2 SPRAY Q2P PRN 08/10 0445 AC 08/10 PO 2124 Heparin Sodium 5,000 UNIT Q8 08/05 1400 AC 08/18 (Porcine) SC 0632 Insulin Aspart 0 Q4 07/25 1000 AC 08/18 SC 0633 Insulin Detemir 17 UNITS BID 08/13 2200 AC 08/17 SC 2133 Metronidazole 500 MG IQ8 08/16 1600 AC 08/18 N/A 1 UNIT IV 0015 Octreotide Acetate 500 MCG Q20H 07/15 1400 AC 08/17 Dextrose/Water 500 ML IV 2056 Pantoprazole Sodium 40 MG BID 07/10 1016 AC 08/17 IV 2101 Potassium Chloride 20 MEQ BID 08/10 2200 AC 08/17 PO 210 Vital Signs & I&O Last 24 Hrs of Vitals and I&O: Vital Signs Date Time Temp Pulse Resp B/P B/P Pulse O2 O2 Flow FiO2 Mean Ox Delivery Rate 08/18 0617 35 08/18 0400 96 Ventilator 35% 08/18 0356 35 08/18 0116 35 08/18 0000 98.9 68 22 112/64 96 Ventilator 35% 08/18 0000 96 Ventilator 35% 08/17 2211 35 08/17 2102 68 114/57 08/17 2000 96 Ventilator 35% 08/17 1933 35 08/17 1625 35 08/17 1600 98 Ventilator 35% 08/17 1600 98.0 79 29 118/70 98 Ventilator 35% 08/17 1400 35 08/17 1200 97 Ventilator 35% 08/17 1124 35 08/17 0945 97.8 69 25 125/65 08/17 0820 35 Intake & Output 08/18 1600 08/18 0800 08/18 0000 Intake Total 1351 1309 Output Total 310 550 Balance 1041 759 Intake, IV 533 510 Intake, Tube 712 574 Feeding Intake, Tube 106 225 Irrigant Number 1 1 Bowel Movements Output, 10 150 Drainage Output, Urine 300 400 Impression/Plan Impression/Plan Impression/Plan: Afebrile. Intubated Skin reveals no rash. HEENT negative. Neck supple with no adenopathy; Picc line in place Lungs decreased breath sounds bilaterally. Heart regular rhythm with no murmur. Abdomen is obese, distended, tender to palpation, Incision noted with a gabriela drain in the rt side, feeding tube on the left side Extremities superficial ulcerations over the anterior tibial aspects of both legs, with 1+ edema bilaterally. Neuro is without focality. 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 with prolonged antibiotic, previous history of peptic ulcer disease, diabetes, sinus rhythm upon admission was on Tikosyn, hyperlipidemia, apparently has never smoked before, previous history of lithotripsy, CABG, previous hip prosthesis infection status post removal of prosthesis in early 2017 now has the following issues * S/p Perf large DU ulcer s/p surg with unsuccessful du repair with peritonitis, persistant leak / now has sig gabriela drainage with ng suction and somatostatin / Patient now has significant fluid collection in the right paracolic gutter reinsertion of pig tail with prob has necrotizing fascitis of the abd wall * S/p Severe shock septic on multiple pressors now off pressors, with ongoing intraabd sepsis and prob atx and pna * Resolving Hypoxic respiratory failureSputum does have enterobacter and staph * Sig drainage from the gabriela biliary leak and fluid collection which is ongoing/ with fluid collection which is pyogenic * Significant ischemic heart disease with low ejection fraction high risk for fluid overload. Previous pafib in sinus now with a pacer and AICD. 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 * H/O LIAM was on cpap * On stress dose steroids now being weaned off * On and off diarrhea * CT reviewed pt has a stroke and sig sinusitis RECOMMENDATION * COnt current care and antibiotics per ID * PT is clearly not making any progress disussed with nephew in detail yesterday and he will let us know about his decision this am. * Attempt trials daily not ready for extubation but may need a trial of extubation * Intravenous pantoprazole * Heparin subcutaneous * PT would need a trach and Surg is aware and if he does not have good response he should get a trach soon DNR and meeting tommorow discussed with nephew again and he will get back to us soon Pt critically ill tts 38 mins
--- NOTE | 2017-08-18 08:26 | RADIOLOGY REPORT ---
EXAMINATION: XR PORTABLE CHEST CLINICAL INFORMATION: Endotracheal tube position. Mechanical ventilation. COMPARISON: Portable chest 08/17/2017. TECHNIQUE: Portable AP 75 degree upright view of the chest was obtained. FINDINGS: The endotracheal tube terminates 4 cm above the kika. The AICD device with RA and RV leads is unchanged. A nasogastric tube is again noted, the tip of which is difficult to visualize but likely extends below the diaphragm. A right PICC line is again noted, the tip of which is difficult to visualize. There is no congestion. There are stable mild bibasilar opacities, likely representing atelectasis. IMPRESSION: Endotracheal tube 4 cm above kika. Stable mild bibasilar opacities, likely representing atelectasis.
--- NOTE | 2017-08-18 08:54 | PN- Diabetes ---
Assessment/Plan Assessment: 76-year-old male with Hx of CAD with low ejection fraction, atrial fibrillation, AICD, previous infection of hip with prolonged antibiotic, history of peptic ulcer disease, diabetes and renal stone, was admitted for perforation of duodenum now with septic shock in ICU. He was on 3 pressors, TPN, octreotide drip and bicarb drip. His BP remained low and stress dose of steroid was initiated despite his am cortisol was 24.8. Patient is still on octreotide drip. Patient was re-intubated on 07/26/2017. Hydrocortisone was discontinued on 08/13/2017. Currently he is on tube feeding with Vital 85 mL per hour. Levemir was decreased to 17 units twice a day and Novolog coverage every 4 hours was adjusted multiple times. The patient's most recent blood sugars were 191, 158, 168 and 157. Plan: 1. continue the current insulin regimen; 2. from DM standpoint, his glucose levels have been stable; I will sign off at this point. Please contact me if further assistance is needed. Subjective Subjective: patient remains intubated Objective Last 24 Hrs of Vital Signs/I&O Vital Signs Date Time Temp Pulse Resp B/P B/P Pulse O2 O2 Flow FiO2 Mean Ox Delivery Rate 08/18 0827 35 08/18 0617 35 08/18 0400 96 Ventilator 35% 08/18 0356 35 08/18 0116 35 08/18 0000 98.9 68 22 112/64 96 Ventilator 35% 08/18 0000 96 Ventilator 35% 08/17 2211 35 08/17 2102 68 114/57 08/17 2000 96 Ventilator 35% 08/17 1933 35 08/17 1625 35 08/17 1600 98 Ventilator 35% 08/17 1600 98.0 79 29 118/70 98 Ventilator 35% 08/17 1400 35 08/17 1200 97 Ventilator 35% 08/17 1124 35 08/17 0945 97.8 69 25 125/65 Intake & Output 08/18 1600 08/18 0800 08/18 0000 Intake Total 1351 1309 Output Total 310 550 Balance 1041 759 Intake, IV 533 510 Intake, Tube 712 574 Feeding Intake, Tube 106 225 Irrigant Number 1 1 Bowel Movements Output, 10 150 Drainage Output, Urine 300 400 Findings Pertinent Lab/Les Results: Laboratory Tests 08/18 0400 Chemistry Sodium (137 - 145 mmol/L) 142 Potassium (3.5 - 5.1 mmol/L) 4.0 Chloride (98 - 107 mmol/L) 110 H Carbon Dioxide (22 - 30 mmol/L) 22 Anion Gap (5 - 16) 10 BUN (9 - 20 mg/dL) 24 H Creatinine (0.7 - 1.2 mg/dL) 0.6 L Estimated GFR (>60 ml/min) > 60 Glucose (65 - 99 mg/dL) 131 H Calcium (8.4 - 10.2 mg/dL) 7.8 L Phosphorus (2.5 - 4.5 mg/dL) 3.5 Magnesium (1.6 - 2.3 mg/dL) 1.8 Total Bilirubin (0.2 - 1.3 mg/dL) 0.3 AST (17 - 59 U/L) 29 ALT (21 - 72 U/L) 55 Albumin (3.5 - 5.0 g/dL) 2.1 L Hematology CBC w Diff NO MAN DIFF REQ WBC (4.8 - 10.8 /CUMM) 8.9 RBC (4.70 - 6.10 /CUMM) 2.91 L Hgb (14.0 - 18.0 G/DL) 8.7 L Hct (42 - 52 %) 27.0 L MCV (80.0 - 94.0 FL) 92.7 MCH (27.0 - 31.0 PG) 30.0 RDW (11.5 - 14.5 %) 21.4 H Plt Count (130 - 400 /CUMM) 218 MPV (7.4 - 10.4 FL) 8.4 Gran % (42.2 - 75.2 %) 60.2 Lymphocytes % (20.5 - 51.1 %) 31.4 Monocytes % (1.7 - 9.3 %) 6.9 Eosinophils % (0 - 5 %) 1.1 Basophils % (0.0 - 2.0 %) 0.4 Absolute Granulocytes (1.4 - 6.5 /CUMM) 5.4 Absolute Lymphocytes (1.2 - 3.4 /CUMM) 2.8 Absolute Monocytes (0.10 - 0.60 /CUMM) 0.6 Absolute Eosinophils (0.0 - 0.7 /CUMM) 0.1 Absolute Basophils (0.0 - 0.2 /CUMM) 0 PUBS MCHC (33.0 - 37.0 G/DL) 32.3 L
--- NOTE | 2017-08-18 11:15 | PN- Infect Dx ---
Subjective Subjective: Afebrile without complaints Objective Last 24 Hrs of Vital Signs/I&O Vital Signs Date Time Temp Pulse Resp B/P B/P Pulse O2 O2 Flow FiO2 Mean Ox Delivery Rate 08/18 1022 69 111/61 08/18 0827 35 08/18 0617 35 08/18 0400 96 Ventilator 35% 08/18 0356 35 08/18 0116 35 08/18 0000 98.9 68 22 112/64 96 Ventilator 35% 08/18 0000 96 Ventilator 35% 08/17 2211 35 08/17 2102 68 114/57 08/17 2000 96 Ventilator 35% 08/17 1933 35 08/17 1625 35 08/17 1600 98 Ventilator 35% 08/17 1600 98.0 79 29 118/70 98 Ventilator 35% 08/17 1400 35 08/17 1200 97 Ventilator 35% 08/17 1124 35 Intake & Output 08/18 1600 08/18 0800 08/18 0000 Intake Total 1351 1309 Output Total 310 550 Balance 1041 759 Intake, IV 533 510 Intake, Tube 712 574 Feeding Intake, Tube 106 225 Irrigant Number 1 1 Bowel Movements Output, 10 150 Drainage Output, Urine 300 400 Physical Exam Other Physical Findings: He appears comfortable on the ventilator in no acute distress Lungs are clear Heart regular rhythm with no murmur Abdomen is distended, nontender with positive bowel sounds; 2 drainage catheters remain in place on the right, with 790 mL output from #2 and only 10 mL output from #1; 1 drainage catheter remains in place on the left, with no output recorded Extremities no cyanosis, clubbing or edema; PICC in the right upper extremity with no inflammation at the site Duvall catheter remains in place Results Last 24 Hours of Lab Results: Laboratory Tests 08/18 0400 Chemistry Sodium (137 - 145 mmol/L) 142 Potassium (3.5 - 5.1 mmol/L) 4.0 Chloride (98 - 107 mmol/L) 110 H Carbon Dioxide (22 - 30 mmol/L) 22 Anion Gap (5 - 16) 10 BUN (9 - 20 mg/dL) 24 H Creatinine (0.7 - 1.2 mg/dL) 0.6 L Estimated GFR (>60 ml/min) > 60 Glucose (65 - 99 mg/dL) 131 H Calcium (8.4 - 10.2 mg/dL) 7.8 L Phosphorus (2.5 - 4.5 mg/dL) 3.5 Magnesium (1.6 - 2.3 mg/dL) 1.8 Total Bilirubin (0.2 - 1.3 mg/dL) 0.3 AST (17 - 59 U/L) 29 ALT (21 - 72 U/L) 55 Albumin (3.5 - 5.0 g/dL) 2.1 L Hematology CBC w Diff NO MAN DIFF REQ WBC (4.8 - 10.8 /CUMM) 8.9 RBC (4.70 - 6.10 /CUMM) 2.91 L Hgb (14.0 - 18.0 G/DL) 8.7 L Hct (42 - 52 %) 27.0 L MCV (80.0 - 94.0 FL) 92.7 MCH (27.0 - 31.0 PG) 30.0 RDW (11.5 - 14.5 %) 21.4 H Plt Count (130 - 400 /CUMM) 218 MPV (7.4 - 10.4 FL) 8.4 Gran % (42.2 - 75.2 %) 60.2 Lymphocytes % (20.5 - 51.1 %) 31.4 Monocytes % (1.7 - 9.3 %) 6.9 Eosinophils % (0 - 5 %) 1.1 Basophils % (0.0 - 2.0 %) 0.4 Absolute Granulocytes (1.4 - 6.5 /CUMM) 5.4 Absolute Lymphocytes (1.2 - 3.4 /CUMM) 2.8 Absolute Monocytes (0.10 - 0.60 /CUMM) 0.6 Absolute Eosinophils (0.0 - 0.7 /CUMM) 0.1 Absolute Basophils (0.0 - 0.2 /CUMM) 0 PUBS MCHC (33.0 - 37.0 G/DL) 32.3 L Last 24 Hours of Les Results: No new cultures Recent Imaging Studies: Chest x-ray August 18, personally reviewed, reveals no change in the bibasilar densities, left greater than right Assessment/Plan Impression: Remains stable, now 3 days status post drainage of 2 right sided collections, which had developed secondary to the ongoing leakage from the unsuccessful duodenal repair 33 days ago, now 40 days status post his initial surgery for a perforated duodenal ulcer and 10 days status post drainage of a left abdominal collection secondary to Enterobacter, for which he remains on Ciprofloxacin and Flagyl, and which has resolved on his recent CT scan. Unfortunately, he remains at risk for the development of recurrent collections, despite the presence of the catheters that are now in place, as long as his enteric leak persists. Suggestion: 1. Remove the left abdominal catheter 2. Would remove Duvall catheter 3. Await decision regarding tracheostomy and overall level of care 4. Continue Ciprofloxacin and Flagyl
--- NOTE | 2017-08-18 14:03 | PN- General Surgery ---
Surgical Brief Attending Note Brief Attending Note: discussed tracheostomy with patients roopa espinoza. at this point he is still interested in proceeding. plan trach tomorrow at 1330. I will meet family at noon for final decision.
[2017-08-18 16:00] VITALS: BP 120/60
[2017-08-19] VITALS: BP 130/82
[2017-08-19 05:53] LABS: ABSOLUTE BASOPHIL COUNT 0.1 /CUMM (0.0-0.2); ABSOLUTE EOSINOPHIL COUNT 0.1 /CUMM (0.0-0.7); ABSOLUTE GRANULOCYTE CT 4.7 /CUMM (1.4-6.5); ABSOLUTE MONOCYTE COUNT 0.8 /CUMM (0.10-0.60); BASOPHIL % 0.6 % (0.0-2.0); EOSINOPHIL % 0.9 % (0-5); GRANULOCYTE % 54.6 % (42.2-75.2); HEMATOCRIT 28.3 % (42-52); MEAN CORPUSCULAR HGB 29.7 PG (27.0-31.0); MEAN CORPUSCULAR HGB CONC 32.1 G/DL (33.0-37.0); MEAN CORPUSCULAR VOLUME 92.5 FL (80.0-94.0); MEAN PLATELET VOLUME 8.8 FL (7.4-10.4); PLATELET COUNT 220 /CUMM (130-400); RBC DISTRIBUTION WIDTH 21.5 % (11.5-14.5); RED BLOOD CELL CT 3.05 /CUMM (4.70-6.10); WHITE BLOOD CELL COUNT 8.6 /CUMM (4.8-10.8)
--- NOTE | 2017-08-19 07:38 | PN- Resident CRCU ---
Subjective HPI/CRCU Issues: Patient was seen and examined this morning, intubated, open eyes, no changes in general condition, plans for tracheostomy this afternoon. 24 Hour Events: Temperature 97.3, MAXIMUM TEMPERATURE 98.6 Heart rate lowest 68, highest 72 atrial fibrillation based with Blood pressure lowest 98/55, highest 120/71 AC/VC 500/30/10/4 saturating 99% Intake 3946, output 1875 Objective Vital Signs & I&O Last 8 Hrs of Vitals and I&O: 111 Exam General Appearance: intubated Head: atraumatic Neck: normal inspection, supple Respiratory: normal breath sounds, chest non-tender, no respiratory distress Cardiovascular: regular rate/rhythm Gastrointestinal: normal bowel sounds, soft, tenderness, vertical surgical incision with purulent discharge from inferior end unchanged from previous 2 right upper and lower drainage catheters, left upper drainage catheter Extremities: normal inspection, normal capillary refill, pedal edema +1 R>L Weaning Parameters NIF: 21 Minute Volume: 11.8 Resp rate: 42 Vt: 280 Heart Rate: 71 Weaning Schedule Start Time: 1630 Minute Volume: 13.1 Resp Rate: 30 Vt: 435 Heart Rate: 71 End Time: 1900 Minute Volume: 15.3 Resp Rate: 28 Vt: 540 Heart Rate: 69 Current Medications: Current Medications Sig/Buck Start time Last Medication Dose Route Stop Time Status Admin Acetaminophen 1,000 MG Q6P PRN 07/16 0530 AC 07/20 N/A 1 UNIT IV 0659 Albuterol Sulfate 3 ML EVERY 4 HRS/AWAKE 07/27 0800 AC 08/19 INH 1558 Aspirin 81 MG DAILY 08/16 2345 AC 08/19 PO 0755 Atorvastatin Calcium 40 MG 1700 08/16 1700 AC 08/19 PO 1722 Budesonide/ 2 PUF BID 07/26 1056 AC 08/19 Formoterol Fumarate INH 0824 Carvedilol 3.125 MG BID 07/28 1000 AC 08/19 PO 0755 Ciprofloxacin 400 MG Q12H 08/11 0500 AC 08/19 Dextrose/Water 200 ML IV 1722 Fentanyl Citrate 25 MCG Q4P PRN 08/05 2130 AC 08/14 IV 1217 Glycerin 2 SPRAY Q2P PRN 08/10 0445 AC 08/10 PO 2124 Heparin Sodium 5,000 UNIT Q8 08/05 1400 AC 08/19 (Porcine) SC 1339 Insulin Aspart 0 Q4 07/25 1000 AC 08/19 SC 1735 Insulin Detemir 17 UNITS BID 08/13 2200 AC 08/19 SC 1039 Magnesium Oxide 400 MG ONE ONE 08/19 0745 DC 08/19 PO 08/19 0746 0755 Metronidazole 500 MG IQ8 08/16 1600 AC 08/19 N/A 1 UNIT IV 1602 Octreotide Acetate 500 MCG Q20H 07/15 1400 AC 08/19 Dextrose/Water 500 ML IV 1723 Pantoprazole Sodium 40 MG BID 07/10 1016 AC 08/19 IV 0754 Phosphate 250 MG ONCE ONE 08/19 0745 DC 08/19 PO 08/19 0746 0923 Potassium Chloride 40 MEQ ONCE ONE 08/19 0745 DC 08/19 PO 08/19 0746 0754 Potassium Chloride 20 MEQ BID 08/10 2200 AC 08/19 PO 0922 Impression/Plan Impression/Problem List Impression: This is a 76-year-old male with past medical history of CAD with HFrEF, A. fib, AICD, previous infection of the hip with prolonged antibiotic, history of peptic ulcer disease, diabetes, nephrolithiasis who was transferred to the ICU for perforation of the duodenum with septic shock S/76 year old gentleman PAF on Tikosyn, not on AC, 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 extubated, continues to be on tube feeds. #Endotracheal intubation -Extubation trails ongoing however unsuccessful -Plans for tracheostomy next [place] Goals of care has been discussed with the nephew by Cayden Douglas MD and Dr. Trimble #Stroke -CT head without CT head was obtained yesterday that revealed areas of hypodensity in the right cerebellum and at the left frontal convexity that are new since the prior study and represent age indeterminate regions of infarction. The right cerebellar region is suspected to be late subacute to chronic, while the left frontal region could be more subacute. -Patient was started on low-dose aspirin and statin yesterday. -Carotid Doppler was obtained that revealed to 45% obstruction of right carotid artery however left carotid artery have not been assessed because of positioning difficulties. #Septic shock--resolved - 2/2 peritonitis from perforated duodenal ulcer - Off Levophed -Off stress cortisone #V. tach - F/u cardio recs - Continue Carvedilol 3.125 twice a day with holding parameters #Hx of PAF on Tikosyn - Curently in NSR, and rate controlled - Continue to hold tikosyn # Perforated duodenal ulcer s/p repair -S/P IR drainage witjh palcement of right upper and lower abdominal drainage catheters being green fluid. -Continue ciprofloxacin -Continue Flagyl 500 mg every 8 -We'll follow ID recommendation #USMAN - Resolved - Continue to montior UOP, monitor BUN increase #Uncontrolled DM, secondary to Sepsis, pressors and octreotide - Continue Levemir 17 units twice a day - Novolog SS every 4 hours - Target Blood sugar 140 -180 - Continue following endocrine recommendation - DVT prophylaxis ALPS and SC heparin - Diet Continue on J tube feeding, rate 75 ml/h - Code Status DNR Consultation ID, surgery, cardiology, nephrology, endocrinology IV access PICC line right arm Problem List: 1. Duodenal ulcer with perforation Pain Ratin Tomorrow's Labs & Rationales: ICU bundle CBC CXR Plan DVT/Prophylaxis: mechanical, pharmacological
[2017-08-19 08:00] VITALS: BP 130/78
--- NOTE | 2017-08-19 09:21 | RADIOLOGY REPORT ---
EXAMINATION: XR PORTABLE CHEST CLINICAL INFORMATION: ET tube position. COMPARISON: Chest radiograph dated 08/18/2017. TECHNIQUE: Portable frontal view of the chest was obtained. FINDINGS: Sternotomy sutures appear intact. There is an endotracheal tube terminating 3 cm above the kika. The dual-lead left chest wall AICD pacemaker is unchanged in position. The right PICC line is again noted the tip difficult to visualize. The cardiac silhouette remains mildly enlarged. There is calcification of the aortic knob. Right lung is clear. There is a stable left lower lobe opacity. There is a small left pleural effusion. IMPRESSION: The endotracheal tube terminates 3 cm above the kika. Stable left lower lobe opacity and left pleural effusion.
--- NOTE | 2017-08-19 10:02 | PN- CRCU ---
Subjective HPI/Critical Care Issues: Doing worse about the same Objective Current Medications: Current Medications Sig/Buck Start time Last Medication Dose Route Stop Time Status Admin Acetaminophen 1,000 MG Q6P PRN 07/16 0530 AC 07/20 N/A 1 UNIT IV 0659 Albuterol Sulfate 3 ML EVERY 4 HRS/AWAKE 07/27 0800 AC 08/19 INH 0825 Aspirin 81 MG DAILY 08/16 2345 AC 08/19 PO 0755 Atorvastatin Calcium 40 MG 1700 08/16 1700 AC 08/18 PO 1802 Budesonide/ 2 PUF BID 07/26 1056 AC 08/19 Formoterol Fumarate INH 0824 Carvedilol 3.125 MG BID 07/28 1000 AC 08/19 PO 0755 Ciprofloxacin 400 MG Q12H 08/11 0500 AC 08/19 Dextrose/Water 200 ML IV 0446 Fentanyl Citrate 25 MCG Q4P PRN 08/05 2130 AC 08/14 IV 1217 Glycerin 2 SPRAY Q2P PRN 08/10 0445 AC 08/10 PO 2124 Heparin Sodium 5,000 UNIT Q8 08/05 1400 AC 08/19 (Porcine) SC 0626 Insulin Aspart 0 Q4 07/25 1000 AC 08/19 SC 0626 Insulin Detemir 17 UNITS BID 08/13 2200 AC 08/18 SC 2209 Magnesium Oxide 400 MG ONE ONE 08/19 0745 DC 08/19 PO 08/19 0746 0755 Metronidazole 500 MG IQ8 08/16 1600 AC 08/19 N/A 1 UNIT IV 0754 Octreotide Acetate 500 MCG Q20H 07/15 1400 AC 08/18 Dextrose/Water 500 ML IV 1802 Pantoprazole Sodium 40 MG BID 07/10 1016 AC 08/19 IV 0754 Phosphate 250 MG ONCE ONE 08/19 0745 DC 08/19 PO 08/19 0746 0923 Potassium Chloride 40 MEQ ONCE ONE 08/19 0745 DC 08/19 PO 08/19 0746 0754 Potassium Chloride 20 MEQ BID 08/10 2200 AC 08/19 PO 0922 Vital Signs & I&O Last 24 Hrs of Vitals and I&O: Vital Signs Date Time Temp Pulse Resp B/P B/P Pulse O2 O2 Flow FiO2 Mean Ox Delivery Rate 08/19 0836 35 08/19 08 99 Ventilator 35% 08/19 08 97.2 69 22 130/78 99 Ventilator 35% 12/15 0755 69 119/60 08/19 0632 35 08/19 0400 97 Ventilator 35% 08/19 0345 35 08/19 0055 35 08/19 0000 99 Ventilator 35% 08/19 0000 97.2 102 26 130/82 99 Ventilator 35% 08/18 2228 35 08/18 2211 69 27 118/78 08/18 2000 100 Ventilator 35% 08/18 1908 35 08/18 1625 35 08/18 1600 97 Ventilator 35% 08/18 1600 98.0 68 23 120/60 97 Ventilator 35% 08/18 1409 35 08/18 1230 35 08/18 1200 95 Ventilator 35% 08/18 1022 69 111/61 Intake & Output 08/19 1600 08/19 0800 08/19 0000 Intake Total 1210 1374 Output Total 700 465 Balance 510 909 Intake, IV 495 566 Intake, Oral 0 0 Intake, Tube 635 565 Feeding Intake, Tube 80 243 Irrigant Output, 0 15 Drainage Output, 0 50 Gastric Drainage Output, Stool 300 100 Output, Urine 400 300 Laboratory Tests 08/19 08/18 0455 0400 Chemistry Sodium (137 - 145 mmol/L) 142 142 Potassium (3.5 - 5.1 mmol/L) 3.7 4.0 Chloride (98 - 107 mmol/L) 112 H 110 H Carbon Dioxide (22 - 30 mmol/L) 23 22 Anion Gap (5 - 16) 8 10 BUN (9 - 20 mg/dL) 24 H 24 H Creatinine (0.7 - 1.2 mg/dL) 0.6 L 0.6 L Estimated GFR (>60 ml/min) > 60 > 60 Glucose (65 - 99 mg/dL) 117 H 131 H Calcium (8.4 - 10.2 mg/dL) 7.7 L 7.8 L Phosphorus (2.5 - 4.5 mg/dL) 3.2 3.5 Magnesium (1.6 - 2.3 mg/dL) 1.8 1.8 Total Bilirubin (0.2 - 1.3 mg/dL) 0.3 0.3 AST (17 - 59 U/L) 62 H 29 ALT (21 - 72 U/L) 63 55 Albumin (3.5 - 5.0 g/dL) 1.9 L 2.1 L Hematology CBC w Diff NO MAN DIFF REQ NO MAN DIFF REQ WBC (4.8 - 10.8 /CUMM) 8.6 8.9 RBC (4.70 - 6.10 /CUMM) 3.05 L 2.91 L Hgb (14.0 - 18.0 G/DL) 9.1 L 8.7 L Hct (42 - 52 %) 28.3 L 27.0 L MCV (80.0 - 94.0 FL) 92.5 92.7 MCH (27.0 - 31.0 PG) 29.7 30.0 RDW (11.5 - 14.5 %) 21.5 H 21.4 H Plt Count (130 - 400 /CUMM) 220 218 MPV (7.4 - 10.4 FL) 8.8 8.4 Gran % (42.2 - 75.2 %) 54.6 60.2 Lymphocytes % (20.5 - 51.1 %) 34.4 31.4 Monocytes % (1.7 - 9.3 %) 9.5 H 6.9 Eosinophils % (0 - 5 %) 0.9 1.1 Basophils % (0.0 - 2.0 %) 0.6 0.4 Absolute Granulocytes (1.4 - 6.5 /CUMM) 4.7 5.4 Absolute Lymphocytes (1.2 - 3.4 /CUMM) 3.0 2.8 Absolute Monocytes (0.10 - 0.60 /CUMM) 0.8 H 0.6 Absolute Eosinophils (0.0 - 0.7 /CUMM) 0.1 0.1 Absolute Basophils (0.0 - 0.2 /CUMM) 0.1 0 PUBS MCHC (33.0 - 37.0 G/DL) 32.1 L 32.3 L Impression/Plan Impression/Plan Impression/Plan: Afebrile. Intubated Skin reveals no rash. HEENT negative. Neck supple with no adenopathy; Picc line in place Lungs decreased breath sounds bilaterally. Heart regular rhythm with no murmur. Abdomen is obese, distended, tender to palpation, Incision noted with a gabriela drain in the rt side, feeding tube on the left side Extremities superficial ulcerations over the anterior tibial aspects of both legs, with 1+ edema bilaterally. Neuro is without focality. 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 with prolonged antibiotic, previous history of peptic ulcer disease, diabetes, sinus rhythm upon admission was on Tikosyn, hyperlipidemia, apparently has never smoked before, previous history of lithotripsy, CABG, previous hip prosthesis infection status post removal of prosthesis in early 2017 now has the following issues * S/p Perf large DU ulcer s/p surg with unsuccessful du repair with peritonitis, persistant leak / now has sig garbiela drainage with ng suction and somatostatin / Patient now has significant fluid collection in the right paracolic gutter reinsertion of pig tail with prob has necrotizing fascitis of the abd wall * S/p Severe shock septic on multiple pressors now off pressors, with ongoing intraabd sepsis and prob atx and pna * Resolving Hypoxic respiratory failureSputum does have enterobacter and staph * Sig drainage from the gabriela biliary leak and fluid collection which is ongoing/ with fluid collection which is pyogenic * Significant ischemic heart disease with low ejection fraction high risk for fluid overload. Previous pafib in sinus now with a pacer and AICD. 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 * H/O LIAM was on cpap * On stress dose steroids now being weaned off * On and off diarrhea * CT reviewed pt has a stroke and sig sinusitis For trach now RECOMMENDATION * COnt current care and antibiotics per ID * PT is clearly not making any progress disussed with nephew in detail yesterday will go for trach * Intravenous pantoprazole * Heparin subcutaneous * PT would need a trach and Surg is scheduled DNR Pt critically ill tts 38 mins
--- NOTE | 2017-08-19 10:06 | PN- Cardiology ---
Subjective Subjective: Remains intubated. Objective Vital Signs and I&Os Vital Signs Date Time Temp Pulse Resp B/P B/P Pulse O2 O2 Flow FiO2 Mean Ox Delivery Rate 08/19 0836 35 08/19 0800 99 Ventilator 35% 08/19 0800 97.2 69 22 130/78 99 Ventilator 35% 08/19 0755 69 119/60 08/19 0632 35 08/19 0400 97 Ventilator 35% 08/19 0345 35 08/19 0055 35 08/19 0000 99 Ventilator 35% 08/19 0000 97.2 102 26 130/82 99 Ventilator 35% 08/18 2228 35 08/18 2211 69 27 118/78 08/18 2000 100 Ventilator 35% 08/18 1908 35 08/18 1625 35 08/18 1600 97 Ventilator 35% 08/18 1600 98.0 68 23 120/60 97 Ventilator 35% 08/18 1409 35 08/18 1230 35 08/18 1200 95 Ventilator 35% 08/18 1022 69 111/61 Intake & Output 08/19 1600 08/19 0800 08/19 0000 08/18 1600 08/18 0800 08/18 0000 Intake Total 1210 1374 1322 1351 1309 Output Total 700 465 510 310 550 Balance 510 359 569 9287 759 Intake, IV 495 566 343 533 510 Intake, Oral 0 0 Intake, Tube 635 565 899 712 574 Feeding Intake, Tube 80 243 80 106 225 Irrigant Number 200 1 1 Bowel Movements Output, 0 15 60 10 150 Drainage Output, 0 50 50 Gastric Drainage Output, Stool 300 100 Output, Urine 400 300 400 300 400 Physical Exam: Remains on ventilator and in no acute distress. Neck: No JVD. Lungs: Clear to auscultation anteriorly. Heart: S1, S2 with grade 1-2/6 systolic murmur. Abdomen: Distended, nontender, positive bowel sounds. Drainage catheters in place. Extremities:No cyanosis, clubbing or edema. Current Medications: Current Medications Sig/Buck Start time Last Medication Dose Route Stop Time Status Admin Acetaminophen 1,000 MG Q6P PRN 07/16 0530 AC 07/20 N/A 1 UNIT IV 0659 Albuterol Sulfate 3 ML EVERY 4 HRS/AWAKE 07/27 0800 AC 08/19 INH 1558 Aspirin 81 MG DAILY 08/16 2345 AC 08/19 PO 0755 Atorvastatin Calcium 40 MG 1700 08/16 1700 AC 08/18 PO 1802 Budesonide/ 2 PUF BID 07/26 1056 AC 08/19 Formoterol Fumarate INH 0824 Carvedilol 3.125 MG BID 07/28 1000 AC 08/19 PO 0755 Ciprofloxacin 400 MG Q12H 08/11 0500 AC 08/19 Dextrose/Water 200 ML IV 0446 Fentanyl Citrate 25 MCG Q4P PRN 08/05 2130 AC 08/14 IV 1217 Glycerin 2 SPRAY Q2P PRN 08/10 0445 AC 08/10 PO 2124 Heparin Sodium 5,000 UNIT Q8 08/05 1400 AC 08/19 (Porcine) SC 1339 Insulin Aspart 0 Q4 07/25 1000 AC 08/19 SC 1603 Insulin Detemir 17 UNITS BID 08/13 2200 AC 08/19 SC 1039 Magnesium Oxide 400 MG ONE ONE 08/19 0745 DC 08/19 PO 08/19 0746 0755 Metronidazole 500 MG IQ8 08/16 1600 AC 08/19 N/A 1 UNIT IV 1602 Octreotide Acetate 500 MCG Q20H 07/15 1400 AC 08/18 Dextrose/Water 500 ML IV 1802 Pantoprazole Sodium 40 MG BID 07/10 1016 AC 08/19 IV 0754 Phosphate 250 MG ONCE ONE 08/19 0745 DC 08/19 PO 08/19 0746 0923 Potassium Chloride 40 MEQ ONCE ONE 08/19 0745 DC 08/19 PO 08/19 0746 0754 Potassium Chloride 20 MEQ BID 08/10 2200 AC 08/19 PO 0922 Results Last 48 Hrs of Labs/Mics: Laboratory Tests 08/19/17 0455: Anion Gap 8, Estimated GFR > 60, Glucose 117 H, Calcium 7.7 L, Phosphorus 3.2, Magnesium 1.8, Total Bilirubin 0.3, AST 62 H, ALT 63, Albumin 1.9 L, CBC w Diff NO MAN DIFF REQ, RBC 3.05 L, MCV 92.5, MCH 29.7, RDW 21.5 H, MPV 8.8, Gran % 54.6, Lymphocytes % 34.4, Monocytes % 9.5 H, Eosinophils % 0.9, Basophils % 0.6, Absolute Granulocytes 4.7, Absolute Lymphocytes 3.0, Absolute Monocytes 0.8 H, Absolute Eosinophils 0.1, Absolute Basophils 0.1, PUBS MCHC 32.1 L 08/18/17 0400: Anion Gap 10, Estimated GFR > 60, Glucose 131 H, Calcium 7.8 L, Phosphorus 3.5 , Magnesium 1.8, Total Bilirubin 0.3, AST 29, ALT 55, Albumin 2.1 L, CBC w Diff NO MAN DIFF REQ, RBC 2.91 L, MCV 92.7, MCH 30.0, RDW 21.4 H, MPV 8.4, Gran % 60.2, Lymphocytes % 31.4, Monocytes % 6.9, Eosinophils % 1.1, Basophils % 0.4, Absolute Granulocytes 5.4, Absolute Lymphocytes 2.8, Absolute Monocytes 0.6, Absolute Eosinophils 0.1, Absolute Basophils 0, PUBS MCHC 32.3 L Recent Imaging Studies: CXR 08/19/2017: The endotracheal tube terminates 3 cm above the kika. Stable left lower lobe opacity and left pleural effusion. Assessment/Plan Assessment/Plan [id number] w/ hx of morbid obesity, LIAM on CPAP, COPD, HTN, HLD, DM, CAD/ICM (s/ p IMI in 1998, CABG 4 w/ WHITE to LAD and individual SVGs to Dx, OM, PDA & MAZE) , and recurrent PAF who presented in an unkempt state via ambulance w/ UTI & subsequently had a perforation of a duodenal ulcer for which he underwent surgery (Fabrizio patch) on 07/09/2017 with worsening clinical status requiring return to the OR on 07/16/2017 for exploratory laparotomy and suture repair duodenal ulcer with Fabrizio patch. Status post drainage of a left abdominal abscess on 08/08/2017 w/ pus aspiration & catheter in place. Hemodynamically stable with properly functioning electronic pacemaker nearing end-of-life (EOL), but without immediate concern for pacemaker failure. No new cardiac issues. Continued output from WILLEM drains and persistent purulent drainage from his incision, that is felt by surgery to represent necrotic fascia. He has been deemed a nonsurgical candidate. Recommendations: * If further significant ventricular tachycardia can place on amiodarone. * Pacemaker functioning properly and should for months, even though near EOL. * Replete potassium and aim to maintain between 4.0-4.5 mEq per liter. * Replete magnesium and aim to maintain at or above 2.0 mEq per liter. * Continue to follow-up on infectious disease, critical care, endocrine, renal and surgical recommendations. * Continue DVT prophylaxis. Continue telemetry? Yes (In ICU.)
--- NOTE | 2017-08-19 10:52 | PN- General Surgery ---
Surgical Brief Attending Note Brief Attending Note: Tracheostomy will have to be postponed until Tuesday due to other surgical emergencies. Will discuss with family when they arrive.
--- NOTE | 2017-08-19 11:30 | PN- Infect Dx ---
Subjective Subjective: Afebrile without complaints. He is noted to be lying in liquid stool. Objective Last 24 Hrs of Vital Signs/I&O Vital Signs Date Time Temp Pulse Resp B/P B/P Pulse O2 O2 Flow FiO2 Mean Ox Delivery Rate 08/19 0836 35 08/19 0800 99 Ventilator 35% 08/19 0800 97.2 69 22 130/78 99 Ventilator 35% 08/19 0755 69 119/60 08/19 0632 35 08/19 0400 97 Ventilator 35% 08/19 0345 35 08/19 0055 35 08/19 0000 99 Ventilator 35% 08/19 0000 97.2 102 26 130/82 99 Ventilator 35% 08/18 2228 35 08/18 2211 69 27 118/78 08/18 2000 100 Ventilator 35% 08/18 1908 35 08/18 1625 35 08/18 1600 97 Ventilator 35% 08/18 1600 98.0 68 23 120/60 97 Ventilator 35% 08/18 1409 35 08/18 1230 35 08/18 1200 95 Ventilator 35% Intake & Output 08/19 1600 08/19 0800 08/19 0000 Intake Total 1210 1374 Output Total 700 465 Balance 510 909 Intake, IV 495 566 Intake, Oral 0 0 Intake, Tube 635 565 Feeding Intake, Tube 80 243 Irrigant Output, 0 15 Drainage Output, 0 50 Gastric Drainage Output, Stool 300 100 Output, Urine 400 300 Physical Exam Other Physical Findings: He is awake and alert on the ventilator in no acute distress Lungs are clear Heart regular rhythm with no murmur Abdomen is distended, nontender with positive bowel sounds; incision clean with minimal drainage from the inferior aspect, with positive bowel sounds; [address] on the right with 55 mL output from one and 30 mL output from the other yesterday Extremities no cyanosis, clubbing or edema; PICC in the right upper extremity with no inflammation at the site Duvall catheter remains in place Results Last 24 Hours of Lab Results: Laboratory Tests 08/19 045 Chemistry Sodium (137 - 145 mmol/L) 142 Potassium (3.5 - 5.1 mmol/L) 3.7 Chloride (98 - 107 mmol/L) 112 H Carbon Dioxide (22 - 30 mmol/L) 23 Anion Gap (5 - 16) 8 BUN (9 - 20 mg/dL) 24 H Creatinine (0.7 - 1.2 mg/dL) 0.6 L Estimated GFR (>60 ml/min) > 60 Glucose (65 - 99 mg/dL) 117 H Calcium (8.4 - 10.2 mg/dL) 7.7 L Phosphorus (2.5 - 4.5 mg/dL) 3.2 Magnesium (1.6 - 2.3 mg/dL) 1.8 Total Bilirubin (0.2 - 1.3 mg/dL) 0.3 AST (17 - 59 U/L) 62 H ALT (21 - 72 U/L) 63 Albumin (3.5 - 5.0 g/dL) 1.9 L Hematology CBC w Diff NO MAN DIFF REQ WBC (4.8 - 10.8 /CUMM) 8.6 RBC (4.70 - 6.10 /CUMM) 3.05 L Hgb (14.0 - 18.0 G/DL) 9.1 L Hct (42 - 52 %) 28.3 L MCV (80.0 - 94.0 FL) 92.5 MCH (27.0 - 31.0 PG) 29.7 RDW (11.5 - 14.5 %) 21.5 H Plt Count (130 - 400 /CUMM) 220 MPV (7.4 - 10.4 FL) 8.8 Gran % (42.2 - 75.2 %) 54.6 Lymphocytes % (20.5 - 51.1 %) 34.4 Monocytes % (1.7 - 9.3 %) 9.5 H Eosinophils % (0 - 5 %) 0.9 Basophils % (0.0 - 2.0 %) 0.6 Absolute Granulocytes (1.4 - 6.5 /CUMM) 4.7 Absolute Lymphocytes (1.2 - 3.4 /CUMM) 3.0 Absolute Monocytes (0.10 - 0.60 /CUMM) 0.8 H Absolute Eosinophils (0.0 - 0.7 /CUMM) 0.1 Absolute Basophils (0.0 - 0.2 /CUMM) 0.1 PUBS MCHC (33.0 - 37.0 G/DL) 32.1 L Last 24 Hours of Les Results: No new cultures Recent Imaging Studies: Chest x-ray August 19, personally reviewed, reveals minimal bibasilar densities Assessment/Plan Impression: Remains stable, now 4 days status post drainage of 2 right sided collections, which had developed secondary to the ongoing leakage from the unsuccessful duodenal repair 34 days ago, now 41 days status post his initial surgery for a perforated duodenal ulcer and 11 days status post drainage of a left abdominal collection secondary to Enterobacter, for which he remains on Ciprofloxacin and Flagyl, and which has resolved on his recent CT scan. Unfortunately, he remains at risk for the development of recurrent collections as long as his enteric leak persists despite the presence of the catheters that are now in place. Of note his drainage from the catheters appears to have decreased, but it is possible that he is leaking around the catheters. He is continuing to have diarrhea, with C. difficile negative 2. Suggestion: 1. Remove the left abdominal catheter 2. Would remove Duvall catheter 3. Await tracheostomy, now scheduled for August 22 4. Continue Ciprofloxacin and Flagyl Shala Burciaga MD is covering over the weekend
[2017-08-19 12:00] VITALS: BP 136/82
--- NOTE | 2017-08-19 15:19 | PN- General Surgery ---
Surgical Brief Attending Note Brief Attending Note: Discussed with nephew over phone. Difficult decision re: what to do next and how far to take this patient's care. He has three major problems, none of which will likely improve: intestinal perforation, infected hip prosthesis and stroke. Likelihood of meaningful recovery is slim. He will consider the next option over the weekend and make decision re; tracheostomy Tuesday.
[2017-08-19 16:00] VITALS: BP 130/70
[2017-08-20] VITALS: BP 120/70
[2017-08-20 04:55] LABS: ABSOLUTE BASOPHIL COUNT 0.1 /CUMM (0.0-0.2); ABSOLUTE EOSINOPHIL COUNT 0.1 /CUMM (0.0-0.7); ABSOLUTE GRANULOCYTE CT 5.3 /CUMM (1.4-6.5); ABSOLUTE LYMPH COUNT 3.2 /CUMM (1.2-3.4); ABSOLUTE MONOCYTE COUNT 0.8 /CUMM (0.10-0.60); BASOPHIL % 0.6 % (0.0-2.0); GRANULOCYTE % 55.7 % (42.2-75.2); HEMATOCRIT 27.7 % (42-52); MEAN CORPUSCULAR HGB 30.1 PG (27.0-31.0); MEAN CORPUSCULAR HGB CONC 32.4 G/DL (33.0-37.0); MEAN PLATELET VOLUME 8.3 FL (7.4-10.4); PLATELET COUNT 230 /CUMM (130-400); RBC DISTRIBUTION WIDTH 22.4 % (11.5-14.5); RED BLOOD CELL CT 2.98 /CUMM (4.70-6.10); WHITE BLOOD CELL COUNT 9.5 /CUMM (4.8-10.8)
--- NOTE | 2017-08-20 07:26 | RADIOLOGY REPORT ---
EXAMINATION: XR PORTABLE CHEST CLINICAL INFORMATION: Mechanical ventilation. Intubated. COMPARISON: Portable chest 08/19/2017, 08/18/2017. TECHNIQUE: Portable upright AP view of the chest was obtained. FINDINGS: Endotracheal tube is approximately 2.9 cm above kika. There is an NG-tube present and not visible beyond the lower mediastinum due to background attenuation on the radiograph. Tip is not visualized. There are sternotomy wires and bipolar AICD again seen. Heart is within normal size. The vascularity is normal. Airspace opacity possibly with effusion left base is stable from prior studies. There is questionable subsegmental atelectasis right infrahilar region again noted. Lungs otherwise clear. No new finding. IMPRESSION: 1. ET tube 2.9 cm above kika. 2. Distal end of NG tube not visible due to background mediastinal and abdominal attenuation on the radiograph. 3. Stable opacity left lower zone. Probable subsegmental atelectasis right medial base stable.
[2017-08-20 08:00] VITALS: BP 130/60
--- NOTE | 2017-08-20 10:02 | PN- Resident CRCU ---
Subjective HPI/CRCU Issues: Saw pt at bedside this AM. No acute overnight events. No change in status. He did not get trach yesterday. Plan is for possible intervention on Tuesday. 24 Hour Events: Tmax 100.2; HR 70; RR 20-25; BP (90/53)-(141/60); BS 210-154-138 VENT: AC VT 500 FiO2 35 PEEP 5 Sat 98% Objective Vital Signs & I&O Last 8 Hrs of Vitals and I&O: as Exam General Appearance: intubated, lethargic Head: atraumatic Neck: normal inspection Respiratory: quiet respiration Cardiovascular: regular rate/rhythm Gastrointestinal: still has bandage covering midline incision. did not remove bandage. it looks clean. Weaning Parameters NIF: 21 Minute Volume: 11.8 Resp rate: 42 Vt: 280 Heart Rate: 71 Weaning Schedule Start Time: 1630 Minute Volume: 13.1 Resp Rate: 30 Vt: 435 Heart Rate: 71 End Time: 1900 Minute Volume: 15.3 Resp Rate: 28 Vt: 540 Heart Rate: 69 Current Medications: Current Medications Sig/Buck Start time Last Medication Dose Route Stop Time Status Admin Acetaminophen 1,000 MG Q6P PRN 07/16 0530 AC 07/20 N/A 1 UNIT IV 0659 Albuterol Sulfate 3 ML EVERY 4 HRS/AWAKE 07/27 0800 AC 08/20 INH 1136 Aspirin 81 MG DAILY 08/16 2345 AC 08/20 PO 0847 Atorvastatin Calcium 40 MG 1700 08/16 1700 AC 08/19 PO 1722 Budesonide/ 2 PUF BID 07/26 1056 AC 08/20 Formoterol Fumarate INH 0750 Carvedilol 3.125 MG BID 07/28 1000 AC 08/20 PO 0847 Ciprofloxacin 400 MG Q12H 08/11 0500 AC 08/20 Dextrose/Water 200 ML IV 0522 Fentanyl Citrate 25 MCG Q4P PRN 08/05 2130 AC 08/20 IV 1126 Glycerin 2 SPRAY Q2P PRN 08/10 0445 AC 08/19 PO 2150 Heparin Sodium 5,000 UNIT Q8 08/05 1400 AC 08/20 (Porcine) SC 1416 Insulin Aspart 0 Q4 07/25 1000 AC 08/20 SC 1417 Insulin Detemir 17 UNITS BID 08/13 2200 AC 08/20 SC 1125 Metronidazole 500 MG IQ8 12/12 1600 AC 08/20 N/A 1 UNIT IV 0846 Octreotide Acetate 500 MCG Q20H 07/15 1400 AC 08/19 Dextrose/Water 500 ML IV 1723 Pantoprazole Sodium 40 MG BID 07/10 1016 AC 08/20 IV 0846 Potassium Chloride 20 MEQ BID 08/10 2200 AC 08/20 PO 0847 Impression/Plan Impression/Problem List Impression: This is a 76-year-old male with past medical history of CAD with HFrEF, A. fib, AICD, previous infection of the hip with prolonged antibiotic, history of peptic ulcer disease, diabetes, nephrolithiasis who was transferred to the ICU for perforation of the duodenum with septic shock S/P repair with patch. Repeated CT of the abdomen performed on 07/15 revealed free air/extravasation of contrast into the peritoneal cavity and he was taken to the OR for ex-lap and had re- repair of duodenal ulcer with Fabrizio patch. He remained intubated with subsequent wean trials and extubated on 07/23/2017, unfortunately he was re- intubated on 07/26/2017 due to desaturations and respiratory failure. Pt con't to be intubated now with lack of improvement and worsening clincal exam. PLAN #Septic shock secondary to perforated duodenal ulcer A/P Fabrizio patch:Pt was suspposed to go to OR for Trach on Tuesday, but procedure had to be post-poned. At this time tentative plan is for intervention on Tuesday. However, nephew, who is POA is re-considering code status. Micro is shoiwng the body cx with VRE and respiratory cx with VRE. Repeat sputum cx on 08/02 shows GPC and mold. A repeat swab of the draining wound on abdomen shows E. coli and Beta strep Group B. BCx negative to date. Negative aspergillus antibody. H.pylori negative. Aug 08 body cx growing enterobacter aerogenes. Respiratory cx on 08/08 enterobacter aerogenes and staph aureus. * D/C Meropenem 07/30 and D/C Cubicin Day 08/01. Currently on Cipro and Ampicillin. * Follow-up on pending repeat culture results * Continue on PRN fentanyl for sedation. * Solu-Cortef 25mg IV q12 per Endo on 08/04 * Continue Protonix IV 40 mg twice a day * Continue octreotide drip-Plan is to continue drip for duration of intubation * Surgery following * Continue vent weaning trials History of PAF on Tikosyn * Continue to hold the Tikosyn * Appreciate cardiology recs * Con't Coreg DM: * Goal glucose between [id number]. Today at 131 this AM. * Appreciate endocrinology recommendation. They have signed off as his regimen has been stable. * Con't FS * Con't RISS and Levemir USMAN: RESOLVED. Hyponatremia: RESOLVED. Guarded prognosis Full code Nothing by mouth DVT prophylaxis with subcutaneous heparin Problem List: 1. Peritonitis Pain Ratin Tomorrow's Labs & Rationales: cbc icu Plan DVT/Prophylaxis: mechanical, pharmacological
--- NOTE | 2017-08-20 13:24 | PN- Infect Dx ---
Subjective Subjective: No fever. Intubated; awaiting tracheostomy (Tuesday). Review of Systems Comments: 12 points reviewed as noted, otherwise neg Objective Last 24 Hrs of Vital Signs/I&O Vital Signs Date Time Temp Pulse Resp B/P B/P Pulse O2 O2 Flow FiO2 Mean Ox Delivery Rate 08/20 1200 99 Ventilator 35% 08/20 1153 35 08/20 0847 71 130/60 08/20 0802 35 08/20 0800 97.6 70 28 130/60 100 Ventilator 35% 08/20 0800 100 Ventilator 35% 08/20 0611 35 08/20 0400 98 Ventilator 35% 08/20 0346 35 08/20 0030 35 08/20 0000 97 Ventilator 35% 08/20 0000 97.9 69 28 120/70 97 Ventilator 35% 08/19 2221 35 08/19 2155 69 135/69 08/19 2016 35 08/19 2000 100 Ventilator 35% 08/19 1600 99 Ventilator 35% 08/19 1600 98.3 70 20 130/70 99 Ventilator 35% 08/19 1558 35 08/19 1422 35 Intake & Output 08/20 1600 08/20 0800 08/20 0000 Intake Total 1292 1514 Output Total 465 490 Balance 827 1024 Intake, IV 493 556 Intake, Oral 0 Intake, Tube 719 718 Feeding Intake, Tube 80 240 Irrigant Output, 18 20 Drainage Output, 25 50 Gastric Drainage Output, Other 0 Output, Stool 25 100 Output, Urine 397 320 Physical Exam Other Physical Findings: He is awake and alert on the ventilator in no acute distress Lungs are clear Heart regular rhythm with no murmur Abdomen is distended, nontender with positive bowel sounds; incision clean with minimal drainage from the inferior aspect, with positive bowel sounds; [address] Extremities no cyanosis, clubbing or edema; PICC in the right upper extremity with no inflammation at the site Duvall cath patent Results Last 24 Hours of Lab Results: Laboratory Tests 08/20 0425 Chemistry Sodium (137 - 145 mmol/L) 140 Potassium (3.5 - 5.1 mmol/L) 4.0 Chloride (98 - 107 mmol/L) 109 H Carbon Dioxide (22 - 30 mmol/L) 22 Anion Gap (5 - 16) 8 BUN (9 - 20 mg/dL) 25 H Creatinine (0.7 - 1.2 mg/dL) 0.6 L Estimated GFR (>60 ml/min) > 60 Glucose (65 - 99 mg/dL) 153 H Calcium (8.4 - 10.2 mg/dL) 7.7 L Phosphorus (2.5 - 4.5 mg/dL) 3.1 Magnesium (1.6 - 2.3 mg/dL) 1.9 Total Bilirubin (0.2 - 1.3 mg/dL) 0.2 AST (17 - 59 U/L) 58 ALT (21 - 72 U/L) 66 Albumin (3.5 - 5.0 g/dL) 2.0 L Hematology CBC w Diff NO MAN DIFF REQ WBC (4.8 - 10.8 /CUMM) 9.5 RBC (4.70 - 6.10 /CUMM) 2.98 L Hgb (14.0 - 18.0 G/DL) 9.0 L Hct (42 - 52 %) 27.7 L MCV (80.0 - 94.0 FL) 93.0 MCH (27.0 - 31.0 PG) 30.1 RDW (11.5 - 14.5 %) 22.4 H Plt Count (130 - 400 /CUMM) 230 MPV (7.4 - 10.4 FL) 8.3 Gran % (42.2 - 75.2 %) 55.7 Lymphocytes % (20.5 - 51.1 %) 34.0 Monocytes % (1.7 - 9.3 %) 8.7 Eosinophils % (0 - 5 %) 1.0 Basophils % (0.0 - 2.0 %) 0.6 Absolute Granulocytes (1.4 - 6.5 /CUMM) 5.3 Absolute Lymphocytes (1.2 - 3.4 /CUMM) 3.2 Absolute Monocytes (0.10 - 0.60 /CUMM) 0.8 H Absolute Eosinophils (0.0 - 0.7 /CUMM) 0.1 Absolute Basophils (0.0 - 0.2 /CUMM) 0.1 PUBS MCHC (33.0 - 37.0 G/DL) 32.4 L Last 24 Hours of Les Results: tatus : ADM IN SPEC #: [id number] CARMEN: 08/08/17 STATUS: COMP RECD: 08/08/[address]: Lonnie Singleton MD,Maurilio SOURCE: BODY FLUID ENTR: 08/08/17-[address]: Evert RODRÍGUEZ, Hanh [facility]: NIGEL Douglas MD,Cayden Barron MD,Ian Cornejo ORDERED: BODY FLD CULTUR COMMENT: 4ML OF TURBID YELLOW LEFT ABDOMINAL FLIUD RECEIVED ADDITIONAL INFORMATION: INTRA-ABDOMINAL FLUID COLLECTIONS Procedure Result > GRAM STAIN Final 08/09/17-0807 WHITE BLOOD CELLS MANY GRAM NEGATIVE RODS MODERATE > BODY FLUID CULTURE Final 08/11/17-1357 Heavy growth of: ENTEROBACTER AEROGENES Called to/Readback by SINGH.VAED by [facility] 08/09/17 0844 1. ENTEROBACTER AEROGENES RX AB ------ -- AMPICILLIN R CEFAZOLIN R AMOXICILLIN/CLAVULINIC ACID R AMPICILLIN/SULBACTAM R CEFOXITIN R CEFTAZIDIME R # CEFTRIAXONE R # CIPROFLOXACIN S GENTAMICIN S MEROPENEM S TRIMETHOPRIM/SULFAMETHOXAZOLE S Recent Imaging Studies: CLINICAL INFORMATION: Mechanical ventilation. Intubated. COMPARISON: Portable chest 08/19/2017, 08/18/2017. TECHNIQUE: Portable upright AP view of the chest was obtained. FINDINGS: Endotracheal tube is approximately 2.9 cm above kika. There is an NG-tube present and not visible beyond the lower mediastinum due to background attenuation on the radiograph. Tip is not visualized. There are sternotomy wires and bipolar AICD again seen. Heart is within normal size. The vascularity is normal. Airspace opacity possibly with effusion left base is stable from prior studies. There is questionable subsegmental atelectasis right infrahilar region again noted. Lungs otherwise clear. No new finding. IMPRESSION: 1. ET tube 2.9 cm above kika. 2. Distal end of NG tube not visible due to background mediastinal and abdominal attenuation on the radiograph. 3. Stable opacity left lower zone. Probable subsegmental atelectasis right medial base stable. DICTATED BY: Max Oneil MD DATE/TIME DICTATED:08/20/17712 FIELD SERVICE ENGINEER:AMEE DATE/TIME TRANSCRIBED:08/20/17712 Assessment/Plan Impression: 76-year-old man with DM2, coronary artery disease, status post CABG, paroxysmal atrial fibrillation, status post pacemaker/AICD, COPD, with obstructive sleep apnea, on CPAP, BPH, GI bleed, osteoarthritis with prolonged complicated hospital stay. Remains stable, now 5 days status post drainage of 2 right sided collections, which had developed secondary to the ongoing leakage from the unsuccessful duodenal repair 35 days ago, now 42 days status post his initial surgery for a perforated duodenal ulcer and 12 days status post drainage of a left abdominal collection secondary to Enterobacter, for which he remains on Ciprofloxacin (started 08/11) and Flagyl, and which has resolved on his recent CT scan. Unfortunately, he remains at risk for the development of recurrent collections as long as his enteric leak persists despite the presence of the catheters that are now in place. Of note his drainage from the catheters appears to have decreased, but it is possible that he is leaking around the catheters. He is continuing to have diarrhea, with C. difficile negative 2. Suggestion: 1. Trend CBC/BMP. 2. Call if fever 3. Await tracheostomy, now scheduled for August 22 4. Continue Ciprofloxacin and Flagyl
--- NOTE | 2017-08-20 13:46 | PN- CRCU ---
Subjective HPI/Critical Care Issues: Saw pt at bedside this AM. No acute overnight events. No change in status. He did not get trach yesterday. Plan is for possible intervention on Tuesday. 24 Hour Events: Tmax 100.2; HR 70; RR 20-25; BP (90/53)-(141/60); BS 210-154-138 VENT: AC VT 500 FiO2 35 PEEP 5 Sat 98% Objective Current Medications: Current Medications Sig/Buck Start time Last Medication Dose Route Stop Time Status Admin Acetaminophen 1,000 MG Q6P PRN 07/16 0530 AC 07/20 N/A 1 UNIT IV 0659 Albuterol Sulfate 3 ML EVERY 4 HRS/AWAKE 07/27 0800 AC 08/20 INH 1136 Aspirin 81 MG DAILY 08/16 2345 AC 08/20 PO 0847 Atorvastatin Calcium 40 MG 1700 08/16 1700 AC 08/19 PO 1722 Budesonide/ 2 PUF BID 07/26 1056 AC 08/20 Formoterol Fumarate INH 0750 Carvedilol 3.125 MG BID 07/28 1000 AC 08/20 PO 0847 Ciprofloxacin 400 MG Q12H 08/11 0500 AC 08/20 Dextrose/Water 200 ML IV 0522 Fentanyl Citrate 25 MCG Q4P PRN 08/05 2130 AC 08/20 IV 1126 Glycerin 2 SPRAY Q2P PRN 08/10 0445 AC 08/19 PO 2150 Heparin Sodium 5,000 UNIT Q8 08/05 1400 AC 08/20 (Porcine) SC 0604 Insulin Aspart 0 Q4 07/25 1000 AC 08/20 SC 1125 Insulin Detemir 17 UNITS BID 08/13 2200 AC 08/20 SC 1125 Metronidazole 500 MG IQ8 08/16 1600 AC 08/20 N/A 1 UNIT IV 0846 Octreotide Acetate 500 MCG Q20H 07/15 1400 AC 08/19 Dextrose/Water 500 ML IV 1723 Pantoprazole Sodium 40 MG BID 07/10 1016 AC 08/20 IV 0846 Potassium Chloride 20 MEQ BID 08/10 2200 AC 08/20 PO 0847 Vital Signs & I&O Last 24 Hrs of Vitals and I&O: Vital Signs Date Time Temp Pulse Resp B/P B/P Pulse O2 O2 Flow FiO2 Mean Ox Delivery Rate 08/20 1200 99 Ventilator 35% 08/20 1153 35 08/20 0847 71 130/60 08/20 0802 35 12/16 0800 97.6 70 28 130/60 100 Ventilator 35% 08/20 0800 100 Ventilator 35% 08/20 0611 35 08/20 0400 98 Ventilator 35% 08/20 0346 35 / 0030 35 12/16 0000 97 Ventilator 35% 12/16 0000 97.9 69 28 120/70 97 Ventilator 35% 08/19 2221 35 08/19 2155 69 135/69 08/19 2016 35 08/19 2000 100 Ventilator 35% 08/19 1600 99 Ventilator 35% 08/19 1600 98.3 70 20 130/70 99 Ventilator 35% 08/19 1558 35 08/19 1422 35 Intake & Output 08/20 1600 08/20 0800 12 0000 Intake Total 1292 1514 Output Total 465 490 Balance 827 1024 Intake, IV 493 556 Intake, Oral 0 Intake, Tube 719 718 Feeding Intake, Tube 80 240 Irrigant Output, 18 20 Drainage Output, 25 50 Gastric Drainage Output, Other 0 Output, Stool 25 100 Output, Urine 397 320 Impression/Plan Impression/Plan Impression/Plan: Afebrile. Intubated Skin reveals no rash. HEENT negative. Neck supple with no adenopathy; Picc line in place Lungs decreased breath sounds bilaterally. Heart regular rhythm with no murmur. Abdomen is obese, distended, tender to palpation, Incision noted with a gabriela drain in the rt side, feeding tube on the left side Extremities superficial ulcerations over the anterior tibial aspects of both legs, with 1+ edema bilaterally. Neuro is without focality. 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 with prolonged antibiotic, previous history of peptic ulcer disease, diabetes, sinus rhythm upon admission was on Tikosyn, hyperlipidemia, apparently has never smoked before, previous history of lithotripsy, CABG, previous hip prosthesis infection status post removal of prosthesis in early 2017 now has the following issues * S/p Perf large DU ulcer s/p surg with unsuccessful du repair with peritonitis, persistant leak / now has sig gabriela drainage with ng suction and somatostatin / Patient now has significant fluid collection in the right paracolic gutter reinsertion of pig tail with prob has necrotizing fascitis of the abd wall * S/p Severe shock septic on multiple pressors now off pressors, with ongoing intraabd sepsis and prob atx and pna * Resolving Hypoxic respiratory failureSputum does have enterobacter and staph * Sig drainage from the gabriela biliary leak and fluid collection which is ongoing/ with fluid collection which is pyogenic * Significant ischemic heart disease with low ejection fraction high risk for fluid overload. Previous pafib in sinus now with a pacer and AICD. 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 * H/O LIAM was on cpap * On stress dose steroids now being weaned off * On and off diarrhea * CT reviewed pt has a stroke and sig sinusitis For trach now on tuesday RECOMMENDATION * COnt current care and antibiotics per ID * PT is clearly not making any progress disussed with nephew in detail before will go for trach * Intravenous pantoprazole * Heparin subcutaneous * PT would need a trach and Surg is scheduled for tuesday DNR Pt critically ill tts 38 mins
[2017-08-20 16:00] VITALS: BP 116/70
[2017-08-21] VITALS: BP 134/82
[2017-08-21 05:17] LABS: ABSOLUTE BASOPHIL COUNT 0.1 /CUMM (0.0-0.2); ABSOLUTE EOSINOPHIL COUNT 0 /CUMM (0.0-0.7); ABSOLUTE GRANULOCYTE CT 6.6 /CUMM (1.4-6.5); ABSOLUTE MONOCYTE COUNT 0.9 /CUMM (0.10-0.60); BASOPHIL % 0.7 % (0.0-2.0); EOSINOPHIL % 0.4 % (0-5); MEAN CORPUSCULAR HGB 29.8 PG (27.0-31.0); MEAN CORPUSCULAR HGB CONC 31.8 G/DL (33.0-37.0); MEAN CORPUSCULAR VOLUME 93.6 FL (80.0-94.0); PLATELET COUNT 215 /CUMM (130-400); RBC DISTRIBUTION WIDTH 22.9 % (11.5-14.5); WHITE BLOOD CELL COUNT 10.7 /CUMM (4.8-10.8)
--- NOTE | 2017-08-21 07:38 | RADIOLOGY REPORT ---
EXAMINATION: XR PORTABLE CHEST CLINICAL INFORMATION: Intubated. Mechanical ventilation. COMPARISON: Recent priors. TECHNIQUE: Portable single portable AP erect view of the chest was obtained. FINDINGS: The endotracheal tube is approximately 2.5 cm above the kika. The left subclavian transvenous bipolar pacemaker/AICD remains in stable position with leads in the expected position of the right atrium and right ventricle. The tip of the right arm PICC is difficult to identify but appears to be at the level of the lower SVC. The feeding tube is seen passing in the stomach but the tip is beyond the field of view. Sternal wires are again demonstrated from previous cardiac surgery. There is mild bibasilar airspace opacity consistent with atelectasis. Possible small left pleural effusion. The lungs are otherwise clear. Heart size is normal. IMPRESSION: 1. Endotracheal tube 2.5 cm above the kika. 2. Mild bibasilar hazy airspace opacity consistent with atelectasis. 3. Possible small left pleural effusion unchanged.
[2017-08-21 08:00] VITALS: BP 100/62
--- NOTE | 2017-08-21 08:11 | PN- Resident CRCU ---
Subjective HPI/CRCU Issues: Patient was seen and examined this morning, intubated, no overnight events. 24 Hour Events: Temperature 98.3, MAXIMUM TEMPERATURE 99 Heart rate lowest 68, highest 92 paced Blood pressure lowes 99/76, highest 113/59 AC/VC 500/10/35/5 sat 97% I [id number] Objective Vital Signs & I&O Last 8 Hrs of Vitals and I&O: 111 Exam General Appearance: intubated Head: atraumatic Neck: normal inspection, supple Respiratory: normal breath sounds, chest non-tender, no respiratory distress Cardiovascular: regular rate/rhythm Gastrointestinal: normal bowel sounds, soft, non-tender Extremities: normal inspection, normal capillary refill, normal range of motion, Pedal edema R>L Weaning Parameters NIF: 21 Minute Volume: 11.8 Resp rate: 42 Vt: 280 Heart Rate: 71 Weaning Schedule Start Time: 0955 Minute Volume: 16.0 Resp Rate: 27 Vt: 620 Heart Rate: 69 End Time: 1145 Minute Volume: 13.5 Resp Rate: 30 Vt: 489 Heart Rate: 71 Current Medications: Current Medications Sig/Buck Start time Last Medication Dose Route Stop Time Status Admin Acetaminophen 1,000 MG Q6P PRN 07/16 0530 AC 07/20 N/A 1 UNIT IV 0659 Albuterol Sulfate 3 ML EVERY 4 HRS/AWAKE 07/27 0800 AC 08/21 INH 1633 Aspirin 81 MG DAILY 08/16 2345 AC 08/21 PO 0854 Atorvastatin Calcium 40 MG 1700 08/16 1700 AC 08/20 PO 1651 Budesonide/ 2 PUF BID 07/26 1056 AC 08/21 Formoterol Fumarate INH 0820 Carvedilol 3.125 MG BID 07/28 1000 AC 08/21 PO 0855 Ciprofloxacin 400 MG Q12H 08/11 0500 AC 08/21 Dextrose/Water 200 ML IV 0455 Fentanyl Citrate 100 MCG .STK-MED ONE 08/21 0851 DC IM 08/21 0852 Fentanyl Citrate 25 MCG Q4P PRN 08/05 2130 AC 08/21 IV 1115 Glycerin 2 SPRAY Q2P PRN 08/10 0445 AC 08/19 PO 2150 Heparin Sodium 5,000 UNIT Q8 08/05 1400 AC 08/21 (Porcine) SC 1434 Insulin Aspart 0 Q4 07/25 1000 AC 08/21 SC 1434 Insulin Detemir 17 UNITS BID 08/13 2200 AC 08/21 SC 1134 Magnesium Oxide 400 MG ONE ONE 08/21 0830 DC 08/21 PO 08/21 0831 0920 Metronidazole 500 MG IQ8 08/16 1600 AC 08/21 N/A 1 UNIT IV 0854 Octreotide Acetate 500 MCG Q20H 07/15 1400 AC 08/21 Dextrose/Water 500 ML IV 1435 Pantoprazole Sodium 40 MG BID 07/10 1016 AC 08/21 IV 0854 Phosphate 250 MG ONCE ONE 08/21 0830 DC 08/21 PO 08/21 0831 0920 Potassium Chloride 40 MEQ ONCE ONE 08/21 0830 DC 08/21 PO 08/21 0831 0920 Potassium Chloride 20 MEQ BID 08/10 2200 AC 08/21 PO 0855 Impression/Plan Impression/Problem List Impression: This is a 76-year-old male with past medical history of CAD with HFrEF, A. fib, AICD, previous infection of the hip with prolonged antibiotic, history of peptic ulcer disease, diabetes, nephrolithiasis who was transferred to the ICU for perforation of the duodenum with septic shock S/76 year old gentleman PAF on Tikosyn, not on AC, 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 extubated, continues to be on tube feeds. #Endotracheal intubation -Extubation trails ongoing however unsuccessful -Plans for tracheostomy next [place] Goals of care has been discussed with the nephew by Cayden Douglas MD and Dr. Trimble #Stroke -CT head without CT head was obtained yesterday that revealed areas of hypodensity in the right cerebellum and at the left frontal convexity that are new since the prior study and represent age indeterminate regions of infarction. The right cerebellar region is suspected to be late subacute to chronic, while the left frontal region could be more subacute. -Patient was started on low-dose aspirin and statin yesterday. -Carotid Doppler was obtained that revealed to 45% obstruction of right carotid artery however left carotid artery have not been assessed because of positioning difficulties. #Septic shock--resolved - 2/2 peritonitis from perforated duodenal ulcer - Off Levophed -Off stress cortisone #V. tach - F/u cardio recs - Continue Carvedilol 3.125 twice a day with holding parameters #Hx of PAF on Tikosyn - Curently in NSR, and rate controlled - Continue to hold tikosyn # Perforated duodenal ulcer s/p repair -S/P IR drainage witjh palcement of right upper and lower abdominal drainage catheters being green fluid. -Continue ciprofloxacin -Continue Flagyl 500 mg every 8 -We'll follow ID recommendation #USMAN - Resolved - Continue to montior UOP, monitor BUN increase #Uncontrolled DM, secondary to Sepsis, pressors and octreotide - Continue Levemir 17 units twice a day - Novolog SS every 4 hours - Target Blood sugar 140 -180 - Continue following endocrine recommendation - DVT prophylaxis ALPS and SC heparin - Diet Continue on J tube feeding, rate 75 ml/h - Code Status DNR Consultation ID, surgery, cardiology, nephrology, endocrinology IV access PICC line right arm Problem List: 1. Duodenal ulcer with perforation Pain Ratin Tomorrow's Labs & Rationales: ICU bundle CBC CXR Plan DVT/Prophylaxis: mechanical, pharmacological
--- NOTE | 2017-08-21 11:20 | PN- Cardiology ---
Subjective Subjective: The patient remains intubated. No overnight events. No significant arrhythmias noted on telemetry. He is awaiting tracheostomy. Objective Vital Signs and I&Os Vital Signs Date Time Temp Pulse Resp B/P B/P Pulse O2 O2 Flow FiO2 Mean Ox Delivery Rate 08/21 0855 83 120/60 08/21 0800 35 08/21 0800 99.0 74 26 100/62 98 Ventilator 35% 08/21 0604 35 08/21 0400 98 Ventilator 35% 08/21 0256 35 08/21 0017 35 08/21 0000 98.1 70 27 134/82 98 Ventilator 35% 08/21 0000 98 Ventilator 35% 08/20 2248 35 08/20 2204 99.0 72 27 115/59 08/20 2000 98 Ventilator 35% 08/20 1915 35 08/20 1612 35 08/20 1600 97 Ventilator 35% 08/20 1600 98.6 78 24 116/70 96 Ventilator 35% 08/20 1408 35 08/20 1200 99 Ventilator 35% 08/20 1153 35 Intake & Output 08/21 1600 08/21 0800 08/21 0000 08/20 1600 08/20 0800 08/20 0000 Intake Total 1274 1236 1292 1514 Output Total 865 875 465 490 Balance 409 107 741 4506 Intake, IV 490 332 493 556 Intake, Oral 0 Intake, Tube 719 764 719 718 Feeding Intake, Tube 65 140 80 240 Irrigant Output, 195 130 18 20 Drainage Output, 100 0 25 50 Gastric Drainage Output, Other 0 10 0 Output, Stool 200 275 25 100 Output, Urine 370 460 397 320 Physical Exam: Gen: NAD HEENT: normal Lungs: clear to auscultation, normal resp. effort Heart: S1, S2, rather 6 systolic murmur Abdomen: Soft, nontender, no masses, catheter in place Extremities: No clubbing, cyanosis, or edema. Neuro: Alert and oriented x 3, cranial nerves intact Current Medications: Current Medications Sig/Buck Start time Last Medication Dose Route Stop Time Status Admin Acetaminophen 1,000 MG Q6P PRN 07/16 0530 AC 07/20 N/A 1 UNIT IV 0659 Albuterol Sulfate 3 ML EVERY 4 HRS/AWAKE 07/27 0800 AC 08/21 INH 0759 Aspirin 81 MG DAILY 08/16 2345 AC 08/21 PO 0854 Atorvastatin Calcium 40 MG 1700 08/16 1700 AC 08/20 PO 1651 Budesonide/ 2 PUF BID 07/26 1056 AC 08/20 Formoterol Fumarate INH 2105 Carvedilol 3.125 MG BID 07/28 1000 AC 08/21 PO 0855 Ciprofloxacin 400 MG Q12H 08/11 0500 AC 08/21 Dextrose/Water 200 ML IV 0455 Fentanyl Citrate 100 MCG .STK-MED ONE 08/20 1130 DC IM 08/20 1131 Fentanyl Citrate 25 MCG Q4P PRN 08/05 2130 AC 08/20 IV 1126 Glycerin 2 SPRAY Q2P PRN 08/10 0445 AC 08/19 PO 2150 Heparin Sodium 5,000 UNIT Q8 08/05 1400 AC 08/21 (Porcine) SC 0626 Insulin Aspart 0 Q4 07/25 1000 AC 08/21 SC 0625 Insulin Detemir 17 UNITS BID 08/13 2200 AC 08/20 SC 2202 Magnesium Oxide 400 MG ONE ONE 08/21 0830 DC 08/21 PO 08/21 0831 0920 Metronidazole 500 MG IQ8 08/16 1600 AC 08/21 N/A 1 UNIT IV 0854 Octreotide Acetate 500 MCG Q20H 07/15 1400 AC 08/20 Dextrose/Water 500 ML IV 1651 Pantoprazole Sodium 40 MG BID 07/10 1016 AC 08/21 IV 0854 Phosphate 250 MG ONCE ONE 08/21 0830 DC 08/21 PO 08/21 0831 0920 Potassium Chloride 40 MEQ ONCE ONE 08/21 0830 DC 08/21 PO 08/21 0831 0920 Potassium Chloride 20 MEQ BID 08/10 2200 AC 08/21 PO 0855 Results Last 48 Hrs of Labs/Mics: Laboratory Tests 08/21/17 0400: Anion Gap 11, Estimated GFR > 60, Glucose 133 H, Calcium 7.7 L, Phosphorus 3.0 , Magnesium 1.8, Total Bilirubin 0.3, AST 85 H, ALT 74 H, Albumin 1.9 L, CBC w Diff NO MAN DIFF REQ, RBC 3.20 L, MCV 93.6, MCH 29.8, RDW 22.9 H, MPV 9.0, Gran % 62.0, Lymphocytes % 28.3, Monocytes % 8.6, Eosinophils % 0.4, Basophils % 0.7, Absolute Granulocytes 6.6 H, Absolute Lymphocytes 3.0, Absolute Monocytes 0.9 H, Absolute Eosinophils 0, Absolute Basophils 0.1, PUBS MCHC 31.8 L 08/20/17 0425: Anion Gap 8, Estimated GFR > 60, Glucose 153 H, Calcium 7.7 L, Phosphorus 3.1, Magnesium 1.9, Total Bilirubin 0.2, AST 58, ALT 66, Albumin 2.0 L, CBC w Diff NO MAN DIFF REQ, RBC 2.98 L, MCV 93.0, MCH 30.1, RDW 22.4 H, MPV 8.3, Gran % 55.7, Lymphocytes % 34.0, Monocytes % 8.7, Eosinophils % 1.0, Basophils % 0.6, Absolute Granulocytes 5.3, Absolute Lymphocytes 3.2, Absolute Monocytes 0.8 H, Absolute Eosinophils 0.1, Absolute Basophils 0.1, PUBS MCHC 32.4 L Recent Imaging Studies: Chest x-ray: 1. Endotracheal tube 2.5 cm above the kika. 2. Mild bibasilar hazy airspace opacity consistent with atelectasis. 3. Possible small left pleural effusion unchanged. Assessment/Plan Assessment/Plan Assessment: 1. Coronary artery disease 2. Ischemic cardiomyopathy 3. Paroxysmal atrial fibrillation 4. Ventricular tachycardia 5. Perforated duodenal ulcer, status post repair Plan: * Continue current cardiac medications. * Supplement electrolytes as needed * Monitor for further arrhythmias. * Ventilatory support Continue telemetry? Yes
--- NOTE | 2017-08-21 12:32 | PN- CRCU ---
Subjective HPI/Critical Care Issues: Patient was seen and examined this morning, intubated, no overnight events. Objective Current Medications: Current Medications Sig/Buck Start time Last Medication Dose Route Stop Time Status Admin Acetaminophen 1,000 MG Q6P PRN 07/16 0530 AC 07/20 N/A 1 UNIT IV 0659 Albuterol Sulfate 3 ML EVERY 4 HRS/AWAKE 07/27 0800 AC 08/21 INH 1137 Aspirin 81 MG DAILY 08/16 2345 AC 08/21 PO 0854 Atorvastatin Calcium 40 MG 1700 08/16 1700 AC 08/20 PO 1651 Budesonide/ 2 PUF BID 07/26 1056 AC 08/21 Formoterol Fumarate INH 0820 Carvedilol 3.125 MG BID 07/28 1000 AC 08/21 PO 0855 Ciprofloxacin 400 MG Q12H 08/11 0500 AC 08/21 Dextrose/Water 200 ML IV 0455 Fentanyl Citrate 25 MCG Q4P PRN 08/05 2130 AC 08/20 IV 1126 Glycerin 2 SPRAY Q2P PRN 08/10 0445 AC 08/19 PO 2150 Heparin Sodium 5,000 UNIT Q8 08/05 1400 AC 08/21 (Porcine) SC 0626 Insulin Aspart 0 Q4 07/25 1000 AC 08/21 SC 1134 Insulin Detemir 17 UNITS BID 08/13 2200 AC 08/21 SC 1134 Magnesium Oxide 400 MG ONE ONE 08/21 0830 DC 08/21 PO 08/21 0831 0920 Metronidazole 500 MG IQ8 08/16 1600 AC 08/21 N/A 1 UNIT IV 0854 Octreotide Acetate 500 MCG Q20H 07/15 1400 AC 08/20 Dextrose/Water 500 ML IV 1651 Pantoprazole Sodium 40 MG BID 07/10 1016 AC 08/21 IV 0854 Phosphate 250 MG ONCE ONE 08/21 0830 DC 08/21 PO 08/21 0831 0920 Potassium Chloride 40 MEQ ONCE ONE 08/21 0830 DC 08/21 PO 08/21 0831 0920 Potassium Chloride 20 MEQ BID 08/10 2200 AC 08/21 PO 0855 Vital Signs & I&O Last 24 Hrs of Vitals and I&O: Vital Signs Date Time Temp Pulse Resp B/P B/P Pulse O2 O2 Flow FiO2 Mean Ox Delivery Rate 08/21 1138 35 08/21 0855 83 120/60 08/21 0800 35 08/21 0800 98 Ventilator 35% 08/21 0800 99.0 74 26 100/62 98 Ventilator 35% 08/21 0604 35 08/21 0400 98 Ventilator 35% 08/21 0256 35 08/21 0017 35 08/21 0000 98.1 70 27 134/82 98 Ventilator 35% 08/21 0000 98 Ventilator 35% 08/20 2248 35 08/20 2204 99.0 72 27 115/59 08/20 2000 98 Ventilator 35% 08/20 1915 35 08/20 1612 35 08/20 1600 97 Ventilator 35% 08/20 1600 98.6 78 24 116/70 96 Ventilator 35% 08/20 1408 35 Intake & Output 08/21 1600 08/21 0800 08/21 0000 Intake Total 1274 Output Total 865 Balance 409 Intake, IV 490 Intake, Tube 719 Feeding Intake, Tube 65 Irrigant Output, 195 Drainage Output, 100 Gastric Drainage Output, Other 0 Output, Stool 200 Output, Urine 370 Impression/Plan Impression/Plan Impression/Plan: Afebrile. Intubated Skin reveals no rash. HEENT negative. Neck supple with no adenopathy; Picc line in place Lungs decreased breath sounds bilaterally. Heart regular rhythm with no murmur. Abdomen is obese, distended, tender to palpation, Incision noted with a gabriela drain in the rt side, feeding tube on the left side Extremities superficial ulcerations over the anterior tibial aspects of both legs, with 1+ edema bilaterally. Neuro is without focality. 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 with prolonged antibiotic, previous history of peptic ulcer disease, diabetes, sinus rhythm upon admission was on Tikosyn, hyperlipidemia, apparently has never smoked before, previous history of lithotripsy, CABG, previous hip prosthesis infection status post removal of prosthesis in early 2017 now has the following issues * S/p Perf large DU ulcer s/p surg with unsuccessful du repair with peritonitis, persistant leak / now has sig gabriela drainage with ng suction and somatostatin / Patient now has significant fluid collection in the right paracolic gutter reinsertion of pig tail with prob has necrotizing fascitis of the abd wall * S/p Severe shock septic on multiple pressors now off pressors, with ongoing intraabd sepsis and prob atx and pna * Resolving Hypoxic respiratory failureSputum does have enterobacter and staph * Sig drainage from the gabriela biliary leak and fluid collection which is ongoing/ with fluid collection which is pyogenic * Significant ischemic heart disease with low ejection fraction high risk for fluid overload. Previous pafib in sinus now with a pacer and AICD. 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 * H/O LIAM was on cpap * On stress dose steroids now being weaned off * On and off diarrhea * CT reviewed pt has a stroke and sig sinusitis For trach now on tuesday RECOMMENDATION * COnt current care and antibiotics per ID * PT is clearly not making any progress disussed with nephew in detail before will go for trach * Intravenous pantoprazole * Heparin subcutaneous * PT would need a trach and Surg is scheduled for tuesday DNR Pt critically ill tts 37 mins
--- NOTE | 2017-08-21 14:45 | PN- Infect Dx ---
Subjective Subjective: No fever; YT max 99F; remains intubated; rectal tube/Duvall cath in place. Review of Systems Comments: 12 points reviewed as noted, otherwise negative. Objective Last 24 Hrs of Vital Signs/I&O Vital Signs Date Time Temp Pulse Resp B/P B/P Pulse O2 O2 Flow FiO2 Mean Ox Delivery Rate 08/21 1138 35 08/21 0855 83 120/60 08/21 0800 35 08/21 0800 98 Ventilator 35% 08/21 0800 99.0 74 26 100/62 98 Ventilator 35% 08/21 0604 35 08/21 0400 98 Ventilator 35% 08/21 0256 35 08/21 0017 35 08/21 0000 98.1 70 27 134/82 98 Ventilator 35% 08/21 0000 98 Ventilator 35% 08/20 2248 35 08/20 2204 99.0 72 27 115/59 08/20 2000 98 Ventilator 35% 08/20 1915 35 08/20 1612 35 08/20 1600 97 Ventilator 35% 08/20 1600 98.6 78 24 116/70 96 Ventilator 35% Intake & Output 08/21 1600 08/21 0800 08/21 0000 Intake Total 1274 Output Total 865 Balance 409 Intake, IV 490 Intake, Tube 719 Feeding Intake, Tube 65 Irrigant Output, 195 Drainage Output, 100 Gastric Drainage Output, Other 0 Output, Stool 200 Output, Urine 370 Physical Exam Other Physical Findings: He is awake and alert on the ventilator in no acute distress HEENT: AT/sclera anicteric Neck No YOON Lungs are clear Heart regular rhythm with no murmur Abdomen is distended, nontender with positive bowel sounds; incision clean with minimal drainage from the inferior aspect, with positive bowel sounds; drainage catheters in place; rectal tube + soft brown stool. Extremities no cyanosis, clubbing or edema; PICC in the right upper extremity with no inflammation at the site Duvall cath patent Results Last 24 Hours of Lab Results: Laboratory Tests 08/21 0400 Chemistry Sodium (137 - 145 mmol/L) 143 Potassium (3.5 - 5.1 mmol/L) 3.8 Chloride (98 - 107 mmol/L) 111 H Carbon Dioxide (22 - 30 mmol/L) 21 L Anion Gap (5 - 16) 11 BUN (9 - 20 mg/dL) 26 H Creatinine (0.7 - 1.2 mg/dL) 0.6 L Estimated GFR (>60 ml/min) > 60 Glucose (65 - 99 mg/dL) 133 H Calcium (8.4 - 10.2 mg/dL) 7.7 L Phosphorus (2.5 - 4.5 mg/dL) 3.0 Magnesium (1.6 - 2.3 mg/dL) 1.8 Total Bilirubin (0.2 - 1.3 mg/dL) 0.3 AST (17 - 59 U/L) 85 H ALT (21 - 72 U/L) 74 H Albumin (3.5 - 5.0 g/dL) 1.9 L Hematology CBC w Diff NO MAN DIFF REQ WBC (4.8 - 10.8 /CUMM) 10.7 RBC (4.70 - 6.10 /CUMM) 3.20 L Hgb (14.0 - 18.0 G/DL) 9.5 L Hct (42 - 52 %) 30.0 L MCV (80.0 - 94.0 FL) 93.6 MCH (27.0 - 31.0 PG) 29.8 RDW (11.5 - 14.5 %) 22.9 H Plt Count (130 - 400 /CUMM) 215 MPV (7.4 - 10.4 FL) 9.0 Gran % (42.2 - 75.2 %) 62.0 Lymphocytes % (20.5 - 51.1 %) 28.3 Monocytes % (1.7 - 9.3 %) 8.6 Eosinophils % (0 - 5 %) 0.4 Basophils % (0.0 - 2.0 %) 0.7 Absolute Granulocytes (1.4 - 6.5 /CUMM) 6.6 H Absolute Lymphocytes (1.2 - 3.4 /CUMM) 3.0 Absolute Monocytes (0.10 - 0.60 /CUMM) 0.9 H Absolute Eosinophils (0.0 - 0.7 /CUMM) 0 Absolute Basophils (0.0 - 0.2 /CUMM) 0.1 PUBS MCHC (33.0 - 37.0 G/DL) 31.8 L Last 24 Hours of Les Results: n/a Recent Imaging Studies: CXR FINDINGS: The endotracheal tube is approximately 2.5 cm above the kika. The left subclavian transvenous bipolar pacemaker/AICD remains in stable position with leads in the expected position of the right atrium and right ventricle. The tip of the right arm PICC is difficult to identify but appears to be at the level of the lower SVC. The feeding tube is seen passing in the stomach but the tip is beyond the field of view. Sternal wires are again demonstrated from previous cardiac surgery. There is mild bibasilar airspace opacity consistent with atelectasis. Possible small left pleural effusion. The lungs are otherwise clear. Heart size is normal. IMPRESSION: 1. Endotracheal tube 2.5 cm above the kika. 2. Mild bibasilar hazy airspace opacity consistent with atelectasis. 3. Possible small left pleural effusion unchanged. DICTATED BY: Olimpia Motley MD DATE/TIME DICTATED:08/21/17730 OFFICE DIRECTOR:AMEE DATE/TIME TRANSCRIBED:08/21/17730 Assessment/Plan Impression: 76-year-old man with DM2, coronary artery disease, status post CABG, paroxysmal atrial fibrillation, status post pacemaker/AICD, COPD, with obstructive sleep apnea, on CPAP, BPH, GI bleed, osteoarthritis with prolonged complicated hospital stay. Remains stable, now 6 days status post drainage of 2 right sided collections, which had developed secondary to the ongoing leakage from the unsuccessful duodenal repair 36 days ago, now 423 days status post his initial surgery for a perforated duodenal ulcer and 13 days status post drainage of a left abdominal collection secondary to Enterobacter, for which he remains on Ciprofloxacin and Flagyl, and which has resolved on his recent CT scan. Unfortunately, he remains at risk for the development of recurrent collections as long as his enteric leak persists despite the presence of the catheters that are now in place. He is continuing to have diarrhea, with C. difficile negative Suggestion: 1. Trend CBC/BMP. 2. Call if fever 3. Await tracheostomy, now scheduled for August 22 4. Continue Ciprofloxacin and Flagyl
[2017-08-21 16:00] VITALS: BP 100/60
[2017-08-22] VITALS: BP 110/60
[2017-08-22 06:13] LABS: ABSOLUTE BASOPHIL COUNT 0.1 /CUMM (0.0-0.2); ABSOLUTE EOSINOPHIL COUNT 0 /CUMM (0.0-0.7); ABSOLUTE GRANULOCYTE CT 5.9 /CUMM (1.4-6.5); ABSOLUTE LYMPH COUNT 3.1 /CUMM (1.2-3.4); ABSOLUTE MONOCYTE COUNT 0.9 /CUMM (0.10-0.60); BASOPHIL % 0.5 % (0.0-2.0); EOSINOPHIL % 0.4 % (0-5); GRANULOCYTE % 59.2 % (42.2-75.2); MEAN CORPUSCULAR VOLUME 93.8 FL (80.0-94.0); MEAN PLATELET VOLUME 9.1 FL (7.4-10.4); PLATELET COUNT 201 /CUMM (130-400); RBC DISTRIBUTION WIDTH 22.4 % (11.5-14.5); RED BLOOD CELL CT 3.09 /CUMM (4.70-6.10)
--- NOTE | 2017-08-22 07:38 | PN- Resident CRCU ---
Subjective HPI/CRCU Issues: Intubated. No change in pt's status. He is still intubated, minimally responsive despite not being on any sedation. He is planned to go for trach today. Notably this AM he had Uop 5cc in 2 hrs, but subsequently diuresed 150 cc spontaneously. 24 Hour Events: Tmax 99.2 HR 68-80 BP: 98/55-113/60 BS [id number] VENT: AC TV 500 FIO2 35 PEEP 5 SAT 96 Objective Vital Signs & I&O Last 8 Hrs of Vitals and I&O: dsd Exam General Appearance: well developed/nourished, intubated Head: atraumatic Neck: normal inspection Respiratory: chest non-tender, decreased breath sounds Cardiovascular: regular rate/rhythm Gastrointestinal: distended with one one drain in llq, and two in rlq. Right sided drains iwth more dark bilious drainage. Bandage covering midline incision. Clean and intact. did not remove dressing. Extremities: pedal edema Weaning Parameters NIF: 21 Minute Volume: 11.8 Resp rate: 42 Vt: 280 Heart Rate: 71 Weaning Schedule Start Time: 1310 Minute Volume: 11.1 Resp Rate: 575 Vt: 27 Heart Rate: 75 End Time: 1440 Minute Volume: 12.1 Resp Rate: 478 Vt: 28 Heart Rate: 80 Current Medications: Current Medications Sig/Buck Start time Last Medication Dose Route Stop Time Status Admin Acetaminophen 1,000 MG Q6P PRN 07/16 0530 AC 07/20 N/A 1 UNIT IV 0659 Albuterol Sulfate 3 ML EVERY 4 HRS/AWAKE 07/27 0800 AC 08/22 INH 1142 Aspirin 81 MG DAILY 08/16 2345 AC 08/22 PO 1055 Atorvastatin Calcium 40 MG 1700 08/16 1700 AC 08/21 PO 1730 Budesonide/ 2 PUF BID 07/26 1056 AC 08/22 Formoterol Fumarate INH 0751 Carvedilol 3.125 MG BID 07/28 1000 AC 08/22 PO 1055 Ciprofloxacin 400 MG Q12H 08/11 0500 AC 08/22 Dextrose/Water 200 ML IV 0541 Fentanyl Citrate 25 MCG Q4P PRN 08/05 2130 AC 08/21 IV 1115 Glycerin 2 SPRAY Q2P PRN 08/10 0445 AC 08/19 PO 2150 Heparin Sodium 5,000 UNIT Q8 08/05 1400 AC 08/22 (Porcine) RI 0536 Insulin Aspart 0 Q4 07/25 1000 AC 08/22 SC 1054 Insulin Detemir 17 UNITS BID 08/13 2200 AC 08/22 SC 1054 Metronidazole 500 MG IQ8 08/16 1600 AC 08/22 N/A 1 UNIT IV 0817 Octreotide Acetate 500 MCG Q20H 07/15 1400 AC 08/22 Dextrose/Water 500 ML IV 0541 Pantoprazole Sodium 40 MG BID 07/10 1016 AC 08/22 IV 1054 Potassium Chloride 20 MEQ BID 08/10 2200 AC 08/22 PO 1055 Impression/Plan Impression/Problem List Impression: This is a 76-year-old male with past medical history of CAD with HFrEF, A. fib, AICD, previous infection of the hip with prolonged antibiotic, history of peptic ulcer disease, diabetes, nephrolithiasis who was transferred to the ICU for perforation of the duodenum with septic shock S/P repair with patch. Repeated CT of the abdomen performed on 07/15 revealed free air/extravasation of contrast into the peritoneal cavity and he was taken to the OR for ex-lap and had re- repair of duodenal ulcer with Fabrizio patch. He remained intubated with subsequent wean trials and extubated on 07/23/2017, unfortunately he was re- intubated on 07/26/2017 due to desaturations and respiratory failure. Pt con't to be intubated now with lack of improvement and worsening clincal exam. On he is planned to go for trach. PLAN #Septic shock secondary to perforated duodenal ulcer A/P Fabrizio patch:Pt was suspposed to go to OR for Trach on Tuesday, but procedure had to be post-poned. At this time tentative plan is for intervention today. He is having new bands ( up to 12) despite nml WBC and there is concern for continued undrained collection. Pt will go for catscan today (w/IV contrast) for better visualization. Micro is shoiwng the body cx with VRE and respiratory cx with VRE. Repeat sputum cx on 08/02 shows GPC and mold. A repeat swab of the draining wound on abdomen shows E. coli and Beta strep Group B. BCx negative to date. Negative aspergillus antibody. H.pylori negative. Aug 08 body cx growing enterobacter aerogenes. Respiratory cx on 08/08 enterobacter aerogenes and staph aureus. * D/C Meropenem 07/30 and D/C Cubicin Day 08/01. * Currently on Cipro and Flagyll. * Follow-up on pending repeat culture results * Continue on PRN fentanyl for sedation. * Solu-Cortef 25mg IV q12 per Endo on 08/04 * Continue Protonix IV 40 mg twice a day * Continue octreotide drip-Plan is to continue drip for duration of intubation * Surgery following * Continue vent weaning trials--> Trach today History of PAF on Tikosyn * Continue to hold the Tikosyn * Appreciate cardiology recs * Con't Coreg DM: * Goal glucose between [id number]. * Appreciate endocrinology recommendation. They have signed off as his regimen has been stable. * Con't FS * Con't RISS and Levemir USMAN: RESOLVED. Hyponatremia: RESOLVED. Guarded prognosis Full code Nothing by mouth DVT prophylaxis with subcutaneous heparin Problem List: 1. GI bleed 2. Peritonitis Pain Ratin Tomorrow's Labs & Rationales: icu cbc Plan DVT/Prophylaxis: mechanical, pharmacological
--- NOTE | 2017-08-22 07:53 | RADIOLOGY REPORT ---
EXAMINATION: XR PORTABLE CHEST CLINICAL INFORMATION: Assess ET tube position COMPARISON: 08/21/2017 TECHNIQUE: Portable frontal view of the chest was obtained. FINDINGS: ET tube tip well positioned located between the kika and clavicular heads approximately 3 cm above the kika. The ICD in place. Evidence of previous cardiac surgery. Heart size remains mild to moderately enlarged. Right-sided PICC in good position with its tip overlying the SVC. Right lung clear. Retrocardiac faint density suspected although imaging is limited due to body habitus. Overall no significant interval change. No pneumothorax. IMPRESSION: ET tube in satisfactory position. Left lower lobe minor parenchymal and/or pleural disease stable. Limited expiratory portable chest.
[2017-08-22 08:00] VITALS: BP 108/60
--- NOTE | 2017-08-22 09:02 | PN- CRCU ---
Subjective HPI/Critical Care Issues: Doing about the same Less responsive afebrile Objective Current Medications: Current Medications Sig/Buck Start time Last Medication Dose Route Stop Time Status Admin Acetaminophen 1,000 MG Q6P PRN 07/16 0530 AC 07/20 N/A 1 UNIT IV 0659 Albuterol Sulfate 3 ML EVERY 4 HRS/AWAKE 07/27 0800 AC 08/22 INH 0751 Aspirin 81 MG DAILY 08/16 2345 AC 08/21 PO 0854 Atorvastatin Calcium 40 MG 1700 08/16 1700 AC 08/21 PO 1730 Budesonide/ 2 PUF BID 07/26 1056 AC 08/22 Formoterol Fumarate INH 0751 Carvedilol 3.125 MG BID 07/28 1000 AC 08/21 PO 2146 Ciprofloxacin 400 MG Q12H 08/11 0500 AC 08/22 Dextrose/Water 200 ML IV 0541 Fentanyl Citrate 25 MCG Q4P PRN 08/05 2130 AC 08/21 IV 1115 Glycerin 2 SPRAY Q2P PRN 08/10 0445 AC 08/19 PO 2150 Heparin Sodium 5,000 UNIT Q8 08/05 1400 AC 08/22 (Porcine) SC 0536 Insulin Aspart 0 Q4 07/25 1000 AC 08/22 SC 0541 Insulin Detemir 17 UNITS BID 08/13 2200 AC 08/21 SC 2147 Metronidazole 500 MG IQ8 08/16 1600 AC 08/22 N/A 1 UNIT IV 0817 Octreotide Acetate 500 MCG Q20H 07/15 1400 AC 08/22 Dextrose/Water 500 ML IV 0541 Pantoprazole Sodium 40 MG BID 07/10 1016 AC 08/21 IV 2148 Potassium Chloride 20 MEQ BID 08/10 2200 AC 08/21 PO 2147 Vital Signs & I&O Last 24 Hrs of Vitals and I&O: Vital Signs Date Time Temp Pulse Resp B/P B/P Pulse O2 O2 Flow FiO2 Mean Ox Delivery Rate 08/22 0802 35 08/22 0551 35 08/22 0400 97 Ventilator 35% 08/22 0252 35 08/22 0017 35 08/22 0000 98.9 68 28 110/60 97 Ventilator 35% 08/22 0000 97 Ventilator 35% 08/21 2223 35 08/21 2146 71 105/59 08/21 2000 100 Ventilator 35% 08/21 1928 35 08/21 1634 35 08/21 1600 99.0 70 24 100/60 97 Ventilator 35% 08/21 1600 98 Ventilator 35% 08/21 1440 35 08/21 1200 96 Ventilator 35% 08/21 1138 35 Intake & Output 08/22 1600 08/22 0800 08/22 0000 Intake Total 1260 1350 Output Total 805 405 Balance 455 945 Intake, IV 500 500 Intake, Oral 0 0 Intake, Tube 680 680 Feeding Intake, Tube 80 170 Irrigant Output, 170 Drainage Output, 75 Gastric Drainage Output, Stool 100 Output, Urine 460 405 Impression/Plan Impression/Plan Impression/Plan: Afebrile. Intubated Skin reveals no rash. HEENT negative. Neck supple with no adenopathy; Picc line in place Lungs decreased breath sounds bilaterally. Heart regular rhythm with no murmur. Abdomen is obese, distended, tender to palpation, Incision noted with a gabriela drain in the rt side, feeding tube on the left side Extremities superficial ulcerations over the anterior tibial aspects of both legs, with 1+ edema bilaterally. Neuro is without focality. 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 with prolonged antibiotic, previous history of peptic ulcer disease, diabetes, sinus rhythm upon admission was on Tikosyn, hyperlipidemia, apparently has never smoked before, previous history of lithotripsy, CABG, previous hip prosthesis infection status post removal of prosthesis in early 2016 now has the following issues * S/p Perf large DU ulcer s/p surg with unsuccessful du repair with peritonitis, persistant leak / now has sig gabriela drainage with ng suction and somatostatin / Patient now has significant fluid collection in the right paracolic gutter reinsertion of pig tail with prob has necrotizing fascitis of the abd wall * S/p Severe shock septic on multiple pressors now off pressors, with ongoing intraabd sepsis and prob atx and pna * Resolving Hypoxic respiratory failureSputum does have enterobacter and staph * Sig drainage from the gabriela biliary leak and fluid collection which is ongoing/ with fluid collection which is pyogenic * Significant ischemic heart disease with low ejection fraction high risk for fluid overload. Previous pafib in sinus now with a pacer and AICD. 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 * H/O LIAM was on cpap * On stress dose steroids now being weaned off * On and off diarrhea * CT reviewed pt has a stroke and sig sinusitis For trach RECOMMENDATION * COnt current care and antibiotics per ID * PT is clearly not making any progress disussed with nephew in detail before will go for trach * Intravenous pantoprazole * Heparin subcutaneous * Trach for today DNR Pt critically ill tts 38 mins
--- NOTE | 2017-08-22 10:48 | PN- Infect Dx ---
Subjective Subjective: Afebrile. He does complain of abdominal pain. Objective Last 24 Hrs of Vital Signs/I&O Vital Signs Date Time Temp Pulse Resp B/P B/P Pulse O2 O2 Flow FiO2 Mean Ox Delivery Rate 08/22 0802 35 08/22 0800 94 Ventilator 35% 08/22 0800 98.9 72 24 108/60 100 Ventilator 35% 08/22 0551 35 08/22 0400 97 Ventilator 35% 08/22 0252 35 08/22 0017 35 08/22 0000 98.9 68 28 110/60 97 Ventilator 35% 08/22 0000 97 Ventilator 35% 08/21 2223 35 08/21 2146 71 105/59 08/21 2000 100 Ventilator 35% 08/21 1928 35 08/21 1634 35 08/21 1600 99.0 70 24 100/60 97 Ventilator 35% 08/21 1600 98 Ventilator 35% 08/21 1440 35 08/21 1200 96 Ventilator 35% 08/21 1138 35 Intake & Output 08/22 1600 08/22 0800 08/22 0000 Intake Total 1260 1350 Output Total 805 405 Balance 455 945 Intake, IV 500 500 Intake, Oral 0 0 Intake, Tube 680 680 Feeding Intake, Tube 80 170 Irrigant Output, 170 Drainage Output, 75 Gastric Drainage Output, Stool 100 Output, Urine 460 405 Physical Exam Other Physical Findings: He is lethargic but arousable on the ventilator Lungs are clear Heart regular rhythm with no murmur Abdomen is distended, tender to palpation diffusely, with no guarding or rebound , positive bowel sounds; [address] on the right, with 235 mL output from 1 and 40 mL from the other yesterday; left percutaneous drain in place on the left, with no output; feeding tube on the left in place; rectal tube in place Extremities no cyanosis, clubbing or edema; PICC in the right upper extremity with no inflammation at the site Duvall catheter remains in place Results Last 24 Hours of Lab Results: Laboratory Tests 08/22 0500 Chemistry Sodium (137 - 145 mmol/L) 146 H Potassium (3.5 - 5.1 mmol/L) 4.0 Chloride (98 - 107 mmol/L) 115 H Carbon Dioxide (22 - 30 mmol/L) 22 Anion Gap (5 - 16) 9 BUN (9 - 20 mg/dL) 27 H Creatinine (0.7 - 1.2 mg/dL) 0.6 L Estimated GFR (>60 ml/min) > 60 Glucose (65 - 99 mg/dL) 141 H Calcium (8.4 - 10.2 mg/dL) 7.6 L Phosphorus (2.5 - 4.5 mg/dL) 2.8 Magnesium (1.6 - 2.3 mg/dL) 1.9 Total Bilirubin (0.2 - 1.3 mg/dL) 0.2 AST (17 - 59 U/L) 59 ALT (21 - 72 U/L) 66 Albumin (3.5 - 5.0 g/dL) 1.8 L Hematology CBC w Diff MAN DIFF ORDERED WBC (4.8 - 10.8 /CUMM) 10.0 RBC (4.70 - 6.10 /CUMM) 3.09 L Hgb (14.0 - 18.0 G/DL) 9.3 L Hct (42 - 52 %) 29.0 L MCV (80.0 - 94.0 FL) 93.8 MCH (27.0 - 31.0 PG) 30.0 RDW (11.5 - 14.5 %) 22.4 H Plt Count (130 - 400 /CUMM) 201 MPV (7.4 - 10.4 FL) 9.1 Gran % (42.2 - 75.2 %) 59.2 Lymphocytes % (20.5 - 51.1 %) 30.7 Monocytes % (1.7 - 9.3 %) 9.2 Eosinophils % (0 - 5 %) 0.4 Basophils % (0.0 - 2.0 %) 0.5 Absolute Granulocytes (1.4 - 6.5 /CUMM) 5.9 Segmented Neutrophils (42.2 - 75.2 %) 64 Band Neutrophils (0.0 - 5.0 %) 12 H Absolute Lymphocytes (1.2 - 3.4 /CUMM) 3.1 Lymphocytes (20.5 - 51.1 %) 16 L Monocytes (1.7 - 9.3 %) 8 Absolute Monocytes (0.10 - 0.60 /CUMM) 0.9 H Absolute Eosinophils (0.0 - 0.7 /CUMM) 0 Absolute Basophils (0.0 - 0.2 /CUMM) 0.1 Nucleated RBCs (0.0 - 0.0 /100WBC) 1 H Platelet Estimate (ADEQUATE) ADEQUATE Polychromasia 1+ Anisocytosis 1+ Stomatocytes 1+ PUBS MCHC (33.0 - 37.0 G/DL) 32.0 L Last 24 Hours of Les Results: No new cultures Recent Imaging Studies: Chest x-ray August 22, personally reviewed, reveals no change in the left lower lobe density Assessment/Plan Impression: Remains stable, now 1 week status post drainage of 2 right sided collections, which had developed secondary to the ongoing leakage from the unsuccessful duodenal repair 37 days ago, now 44 days status post his initial surgery for a perforated duodenal ulcer and now 2 weeks status post drainage of a left abdominal collection secondary to Enterobacter, for which he remains on Ciprofloxacin and Flagyl, and which has resolved on his last CT scan. Unfortunately, he remains at risk for the development of recurrent collections as long as his enteric leak persists despite the presence of the catheters that are now in place. He has had increased bands on his recent CBCs, raising concern for a new or residual infection, possibly within the abdomen, and repeat imaging will be necessary. Suggestion: 1. Repeat CT of the abdomen and pelvis today 2. Remove the left abdominal catheter 3. Await tracheostomy, scheduled for later today 4. Continue Ciprofloxacin and Flagyl pending above
--- NOTE | 2017-08-22 11:02 | PN- Cardiology ---
Subjective Subjective: Remains intubated. Objective Vital Signs and I&Os Vital Signs Date Time Temp Pulse Resp B/P B/P Pulse O2 O2 Flow FiO2 Mean Ox Delivery Rate 08/22 0802 35 08/22 0800 94 Ventilator 35% 08/22 0800 98.9 72 24 108/60 100 Ventilator 35% 08/22 0551 35 08/22 0400 97 Ventilator 35% 08/22 0252 35 08/22 0017 35 08/22 0000 98.9 68 28 110/60 97 Ventilator 35% 08/22 0000 97 Ventilator 35% 08/21 2223 35 08/21 2146 71 105/59 08/21 2000 100 Ventilator 35% 08/21 1928 35 08/21 1634 35 08/21 1600 99.0 70 24 100/60 97 Ventilator 35% 08/21 1600 98 Ventilator 35% 08/21 1440 35 08/21 1200 96 Ventilator 35% 08/21 1138 35 Intake & Output 08/22 1600 08/22 0800 08/22 0000 08/21 1600 08/21 0800 08/21 0000 Intake Total 1260 1350 1359 1274 Output Total 756 360 2935 865 Balance 455 945 224 409 Intake, IV 500 500 346 490 Intake, Oral 0 0 Intake, Tube 680 680 713 719 Feeding Intake, Tube 80 170 300 65 Irrigant Output, 170 80 195 Drainage Output, 75 25 100 Gastric Drainage Output, Other 5 0 Output, Stool 100 450 200 Output, Urine 460 405 575 370 Physical Exam: Well-developed, morbidly obese elderly male who was lethargic but arousable on a ventilator. Neck: No JVD, no bruits. Lungs: Lungs clear to auscultation anteriorly. Heart: S1, S2 (regular) with grade 1-2/6 systolic murmur. Abdomen: Distended and tender to palpation with positive bowel sounds. Extremities: No cyanosis, clubbing or edema Current Medications: Current Medications Sig/Buck Start time Last Medication Dose Route Stop Time Status Admin Acetaminophen 1,000 MG Q6P PRN 07/16 0530 AC 07/20 N/A 1 UNIT IV 0659 Albuterol Sulfate 3 ML EVERY 4 HRS/AWAKE 07/27 0800 AC 08/22 INH 0751 Aspirin 81 MG DAILY 08/16 2345 AC 08/21 PO 0854 Atorvastatin Calcium 40 MG 1700 08/16 1700 AC 08/21 PO 1730 Budesonide/ 2 PUF BID 07/26 1056 AC 08/22 Formoterol Fumarate INH 0751 Carvedilol 3.125 MG BID 07/28 1000 AC 08/21 PO 2146 Ciprofloxacin 400 MG Q12H 08/11 0500 AC 08/22 Dextrose/Water 200 ML IV 0541 Fentanyl Citrate 25 MCG Q4P PRN 08/05 2130 AC 08/21 IV 1115 Glycerin 2 SPRAY Q2P PRN 08/10 0445 AC 08/19 PO 2150 Heparin Sodium 5,000 UNIT Q8 08/05 1400 AC 08/22 (Porcine) SC 0536 Insulin Aspart 0 Q4 07/25 1000 AC 08/22 SC 0541 Insulin Detemir 17 UNITS BID 08/13 2200 AC 08/21 SC 2147 Metronidazole 500 MG IQ8 08/16 1600 AC 08/22 N/A 1 UNIT IV 0817 Octreotide Acetate 500 MCG Q20H 07/15 1400 AC 08/22 Dextrose/Water 500 ML IV 0541 Pantoprazole Sodium 40 MG BID 07/10 1016 AC 08/21 IV 2148 Potassium Chloride 20 MEQ BID 08/10 2200 AC 08/21 PO 2147 Results Last 48 Hrs of Labs/Mics: Laboratory Tests 08/22/17 0500: Anion Gap 9, Estimated GFR > 60, Glucose 141 H, Calcium 7.6 L, Phosphorus 2.8, Magnesium 1.9, Total Bilirubin 0.2, AST 59, ALT 66, Albumin 1.8 L, CBC w Diff MAN DIFF ORDERED, RBC 3.09 L, MCV 93.8, MCH 30.0, RDW 22.4 H, MPV 9.1, Gran % 59.2, Lymphocytes % 30.7, Monocytes % 9.2, Eosinophils % 0.4, Basophils % 0.5, Absolute Granulocytes 5.9, Segmented Neutrophils 64, Band Neutrophils 12 H, Absolute Lymphocytes 3.1, Lymphocytes 16 L, Monocytes 8, Absolute Monocytes 0.9 H, Absolute Eosinophils 0, Absolute Basophils 0.1, Nucleated RBCs 1 H, Platelet Estimate ADEQUATE, Polychromasia 1+, Anisocytosis 1+, Stomatocytes 1+, PUBS MCHC 32.0 L 08/21/17 0400: Anion Gap 11, Estimated GFR > 60, Glucose 133 H, Calcium 7.7 L, Phosphorus 3.0 , Magnesium 1.8, Total Bilirubin 0.3, AST 85 H, ALT 74 H, Albumin 1.9 L, CBC w Diff NO MAN DIFF REQ, RBC 3.20 L, MCV 93.6, MCH 29.8, RDW 22.9 H, MPV 9.0, Gran % 62.0, Lymphocytes % 28.3, Monocytes % 8.6, Eosinophils % 0.4, Basophils % 0.7, Absolute Granulocytes 6.6 H, Absolute Lymphocytes 3.0, Absolute Monocytes 0.9 H, Absolute Eosinophils 0, Absolute Basophils 0.1, PUBS MCHC 31.8 L Recent Imaging Studies: CXR 08/22/2017: ET tube in satisfactory position. Left lower lobe minor parenchymal and/or pleural disease stable. Limited expiratory portable chest. Assessment/Plan Assessment/Plan [id number] w/ hx of morbid obesity, LIAM on CPAP, COPD, HTN, HLD, DM, CAD/ICM (s/ p IMI in 1998, CABG 4 w/ WHITE to LAD and individual SVGs to Dx, OM, PDA & MAZE) , and recurrent PAF who presented in an unkempt state via ambulance w/ UTI & subsequently had a perforation of a duodenal ulcer for which he underwent surgery (Fabrizio patch) on 07/09/2017 with worsening clinical status requiring return to the OR on 07/16/2017 for exploratory laparotomy and suture repair duodenal ulcer with Fabrizio patch. Status post drainage of a left abdominal abscess on 08/08/2017 w/ pus aspiration & catheter in place. Hemodynamically stable with properly functioning electronic pacemaker nearing end-of-life (EOL), but without immediate concern for pacemaker failure. No new cardiac issues. Continued output from WILLEM drains and persistent purulent drainage from his incision, that is felt by surgery to represent necrotic fascia. He has been deemed a nonsurgical candidate. Recommendations: * If further significant ventricular tachycardia can place on amiodarone. * Pacemaker functioning properly and should for months, even though near EOL. * Replete potassium and aim to maintain between 4.0-4.5 mEq per liter. * Replete magnesium and aim to maintain at or above 2.0 mEq per liter. * Continue to follow-up on infectious disease, critical care, endocrine, renal and surgical recommendations. * Continue DVT prophylaxis. Continue telemetry? Not applicable (In ICU.)
[2017-08-22 16:00] VITALS: BP 96/54
--- NOTE | 2017-08-22 17:02 | CT SCAN REPORT ---
EXAMINATION: CT ABDOMEN AND PELVIS WITH CONTRAST CLINICAL INFORMATION: Duodenal perforation. Status post patch. Multiple collections. Want to reassess status of collections. He has bandemia on CBC. COMPARISON: CT scan of the abdomen and pelvis dated 08/15/2017, 08/14/2017, 08/06/2017 and 07/26/2017. TECHNIQUE: Multidetector CT volumetric acquisition of the abdomen and pelvis was performed after the administration of 94 mL of intravenous Optiray 320. The data set was reformatted in the sagittal and coronal planes and reviewed on an independent workstation. DLP: 1418.64 mGy-cm. FINDINGS: LOWER CHEST: Bilaterally, small pleural effusions are seen with associated volume loss and consolidation in both lower lobes, similar to the previous exam. The cardiac silhouette appears enlarged and various pacer leads are partially included and incompletely assessed on this exam. LIVER, GALLBLADDER, BILIARY TREE: Liver normal size and attenuation. No focal cystic or solid mass or intra-or extrahepatic ductal dilatation. Hepatic and portal veins patent. Gallbladder partially distended and within normal limits. PANCREAS: Normal. No ductal dilatation, mass, or surrounding stranding. SPLEEN: Normal size and appearance. Splenic vein patent. ADRENAL GLANDS AND KIDNEYS: Adrenal glands normal. Kidneys bilaterally symmetric in size and function. No hydronephrosis or perinephric stranding. No interval change in size of the multiple bilateral low-attenuation masses are seen, suboptimally assessed due to extensive streak artifact, presumably representing cysts. Bilaterally, multiple renal calcifications are again seen, unchanged. URETERS AND BLADDER: Ureters decompressed and within normal limits. Bladder partially distended with locule of air seen in the nondependent portion related to a Duvall catheter. The Duvall catheter is low in position with the balloon of the catheter inflated within the body of the prostate gland. PELVIC ORGANS: Unremarkable. GASTROINTESTINAL TRACT: A left-sided jejunostomy tube is in place at the level of the paraumbilical region, unchanged. 2 right flank pigtail catheters are in place. The more inferior and lateral of the 2 pigtail catheters is located just above the level of the iliac crest along the right lateral chest wall with no significant residual surrounding fluid collection seen. The 2nd catheter is located inferior to the gallbladder and adjacent to the level of the pancreatic head with a small amount of residual fluid collection seen with associated air locules. This collection measures approximately 6 x 5 cm in size. Small amount of free air is seen in the abdomen. Edema of the omentum and mesentery is noted with trace amounts of fluid in the lateral paraconal gutters and in the anterior pararenal space. Mild anasarca in the soft tissues is again noted. Small and large bowel loops decompressed. Appendix not discretely seen. LYMPHOVASCULAR STRUCTURES: Abdominal aorta normal in caliber. There is severe atherosclerotic calcification of the aorta and branch vessels, including at the origins of the renal arteries and the SMA. No periaortic collections. No abdominal or pelvic adenopathy or free fluid collection. BONES: A total right hip arthroplasty is in place, obscuring assessment in the surrounding tissues of the lower pelvis. Moderate vertebral spondylosis is seen throughout the imaged thoracic spine and the lumbar spine with associated vertebral spurring seen. Moderate facet arthropathy is also seen in the mid and lower lumbar spine. IMPRESSION: 1. No significant residual fluid collection is seen associated with the more inferior and lateral of the 2 right lower quadrant pigtail catheters. 2. Small residual fluid collection remains around the more superior and medial pigtail catheter in the right mid abdomen with associated locules of air. 3. Residual trace anasarca. Small bilateral pleural effusions and mesenteric edema remain unchanged. 4. No change in bilateral lower lobe volume loss and consolidation. 5. Bilateral renal masses are poorly seen, likely represent cysts. Several bilateral nonobstructing renal calculi again seen.
--- NOTE | 2017-08-22 19:48 | PN- General Surgery ---
Surgical Brief Attending Note Brief Attending Note: discussed with nephew. He would like to pursue tracheostomy. Will find time in OR to perform.
--- NOTE | 2017-08-22 20:38 | Event Note ---
Event Note Event Note: Called OR at 8:30pm asking for the procedure time, I was informed that it was canceled for tonight and will be at some point tomorrow but no specfic time. We will restart the tube feed and DC the fluid (was started for hypoglycemia). Duvall catheter was replaced.
[2017-08-23] VITALS: BP 90/60
[2017-08-23 04:43] LABS: ABSOLUTE BASOPHIL COUNT 0.1 /CUMM (0.0-0.2); ABSOLUTE EOSINOPHIL COUNT 0.1 /CUMM (0.0-0.7); ABSOLUTE GRANULOCYTE CT 5.8 /CUMM (1.4-6.5); ABSOLUTE LYMPH COUNT 3.2 /CUMM (1.2-3.4); ABSOLUTE MONOCYTE COUNT 0.8 /CUMM (0.10-0.60); BASOPHIL % 0.6 % (0.0-2.0); EOSINOPHIL % 0.7 % (0-5); GRANULOCYTE % 58.6 % (42.2-75.2); HEMATOCRIT 29.1 % (42-52); MEAN CORPUSCULAR HGB 30.2 PG (27.0-31.0); MEAN CORPUSCULAR HGB CONC 32.1 G/DL (33.0-37.0); MEAN PLATELET VOLUME 8.8 FL (7.4-10.4); PLATELET COUNT 205 /CUMM (130-400); RBC DISTRIBUTION WIDTH 23.9 % (11.5-14.5); RED BLOOD CELL CT 3.09 /CUMM (4.70-6.10); WHITE BLOOD CELL COUNT 9.9 /CUMM (4.8-10.8)
[2017-08-23 08:00] VITALS: BP 109/57
--- NOTE | 2017-08-23 08:27 | RADIOLOGY REPORT ---
EXAMINATION: XR PORTABLE CHEST CLINICAL INFORMATION: Patient for tracheostomy. COMPARISON: Chest x-ray 08/22/2017. TECHNIQUE: Portable frontal 75 degrees semiupright view of the chest was obtained. FINDINGS: The tip of the endotracheal tube is unchanged, approximately 3 cm above the kika. There has been no interval change in the AICD with lead. There is an enteric tube extending below the level of the diaphragm. The lung flor are moderately well-expanded. The cardiac silhouette is prominent but stable. There is a left basilar pleural effusion, and underlying consolidation cannot be excluded. The right lung appears clear. There is evidence of prior COPD and CABG. IMPRESSION: 1. No interval change in position of the ET tube. 2. Mild stable cardiomegaly. 3. Left lower lobe pleural effusion with possible underlying consolidation.
--- NOTE | 2017-08-23 08:29 | PN- Resident CRCU ---
Subjective HPI/CRCU Issues: Intubated Duodenal perf s/p grahm patch and leak peritonitis No change in pt's status. He was supposed to go for trach yesterday but never went down for procedure. Plan is for procedure today. Will stop his tubefeed this AM in anticipation of procedure. Additionally, he will go for re-positioining of his R. WILLEM drain with IR. 24 Hour Events: Tmax 98.9 HR 68-100 BP 89/53 - 115/61 BS: 153, 168, 108 VENT SETTINGS [id number] 5- SAT 95% He had 10 beat v-tach last night Objective Vital Signs & I&O Last 8 Hrs of Vitals and I&O: Exam General Appearance: sedated, intubated, lethargic, obese Head: atraumatic, normal appearance Neck: normal inspection Respiratory: decreased breath sounds, crackles Cardiovascular: regular rate/rhythm Gastrointestinal: soft, HAS MIDLINE BANDAGE WITH [address] ONE IN L AND TWO IN RIGHT. RIGHT SIDE WITH DARK BILIOUS FLUID. Extremities: pedal edema Weaning Parameters NIF: 21 Minute Volume: 11.8 Resp rate: 42 Vt: 280 Heart Rate: 71 Weaning Schedule Start Time: 1310 Minute Volume: 11.1 Resp Rate: 575 Vt: 27 Heart Rate: 75 End Time: 1440 Minute Volume: 12.1 Resp Rate: 478 Vt: 28 Heart Rate: 80 Current Medications: Current Medications Sig/Buck Start time Last Medication Dose Route Stop Time Status Admin Acetaminophen 1,000 MG Q6P PRN 07/16 0530 AC 07/20 N/A 1 UNIT IV 0659 Albuterol Sulfate 3 ML EVERY 4 HRS/AWAKE 07/27 0800 AC 08/23 INH 0813 Aspirin 81 MG DAILY 08/16 2345 AC 08/23 PO 0815 Atorvastatin Calcium 40 MG 1700 08/16 1700 AC 08/21 PO 1730 Budesonide/ 2 PUF BID 07/26 1056 AC 08/23 Formoterol Fumarate INH 0840 Carvedilol 3.125 MG BID 07/28 1000 AC 08/23 PO 0815 Ciprofloxacin 400 MG Q12H 08/11 0500 AC 08/23 Dextrose/Water 200 ML IV 0521 Dextrose/Water 1,000 ML ONCE ONE 08/22 1830 DC 08/22 IV 08/23 1429 1936 Fentanyl Citrate 25 MCG Q4P PRN 08/05 2130 AC 08/21 IV 1115 Glycerin 2 SPRAY Q2P PRN 08/10 0445 AC 08/19 PO 2150 Heparin Sodium 5,000 UNIT Q8 08/05 1400 AC 08/23 (Porcine) SC 0529 Insulin Aspart 0 Q4 07/25 1000 AC 08/23 SC 0534 Insulin Detemir 17 UNITS BID 08/13 2200 AC 08/22 SC 2257 Metronidazole 500 MG IQ8 08/16 1600 AC 08/23 N/A 1 UNIT IV 0747 Octreotide Acetate 500 MCG Q20H 07/15 1400 AC 08/22 Dextrose/Water 500 ML IV 0541 Pantoprazole Sodium 40 MG BID 07/10 1016 AC 08/23 IV 0814 Potassium Chloride 20 MEQ BID 08/10 2200 AC 08/23 PO 0814 Impression/Plan Impression/Problem List Impression: This is a 76-year-old male with past medical history of CAD with HFrEF, A. fib, AICD, previous infection of the hip with prolonged antibiotic, history of peptic ulcer disease, diabetes, nephrolithiasis who was transferred to the ICU for perforation of the duodenum with septic shock S/P repair with patch. Repeated CT of the abdomen performed on 07/15 revealed free air/extravasation of contrast into the peritoneal cavity and he was taken to the OR for ex-lap and had re- repair of duodenal ulcer with Fabrizio patch. He remained intubated with subsequent wean trials and extubated on 07/23/2017, unfortunately he was re- intubated on 07/26/2017 due to desaturations and respiratory failure. Pt con't to be intubated now with lack of improvement and worsening clincal exam. On he is planned to go for trach. PLAN #Septic shock secondary to perforated duodenal ulcer A/P Fabrizio patch:Pt was suspposed to go to OR for Trach on Tuesday, but procedure had to be post-poned. It was postponed again yesterday. At this time tentative plan is for intervention today. He had a catscan yesterday which showed decreased collections. His ramon was removed yesterday (it had been in for >40 days) and replaced with a new one. Micro is shoiwng the body cx with VRE and respiratory cx with VRE. Repeat sputum cx on 08/02 shows GPC and mold. A repeat swab of the draining wound on abdomen shows E. coli and Beta strep Group B. BCx negative to date. Negative aspergillus antibody. H.pylori negative. Aug 08 body cx growing enterobacter aerogenes. Respiratory cx on 08/08 enterobacter aerogenes and staph aureus. * D/C Meropenem 07/30 and D/C Cubicin Day 08/01. * Currently on Cipro and Flagyll. * Follow-up on pending repeat culture results * Continue on PRN fentanyl for sedation. * Solu-Cortef 25mg IV q12 per Endo on 08/04 * Continue Protonix IV 40 mg twice a day * Continue octreotide drip-Plan is to continue drip for duration of intubation * Surgery following * Continue vent weaning trials--> Trach today 08/23 * Pt also going to IR for re-positioning of his RUQ drain * Pt LLQ drain removed 08/23 History of PAF on Tikosyn: He had 10 beat v-tach last night. * Continue to hold the Tikosyn * Appreciate cardiology recs * Con't Coreg DM: * Goal glucose between [id number]. * Appreciate endocrinology recommendation. They have signed off as his regimen has been stable. * Con't FS * Con't RISS and Levemir USMAN: RESOLVED. Hyponatremia: RESOLVED. Guarded prognosis Full code Nothing by mouth DVT prophylaxis with subcutaneous heparin Problem List: 1. Peritonitis Pain Ratin Tomorrow's Labs & Rationales: cbc icu Plan DVT/Prophylaxis: mechanical, pharmacological
--- NOTE | 2017-08-23 08:59 | PN- CRCU ---
Subjective HPI/Critical Care Issues: No change in pt's status. He was supposed to go for trach yesterday but never went down for procedure. Plan is for procedure today. Will stop his tubefeed this AM in anticipation of procedure. Objective Current Medications: Current Medications Sig/Buck Start time Last Medication Dose Route Stop Time Status Admin Acetaminophen 1,000 MG Q6P PRN 07/16 0530 AC 07/20 N/A 1 UNIT IV 0659 Albuterol Sulfate 3 ML EVERY 4 HRS/AWAKE 07/27 0800 AC 08/23 INH 0813 Aspirin 81 MG DAILY 08/16 2345 AC 08/23 PO 0815 Atorvastatin Calcium 40 MG 1700 08/16 1700 AC 08/21 PO 1730 Budesonide/ 2 PUF BID 07/26 1056 AC 08/23 Formoterol Fumarate INH 0840 Carvedilol 3.125 MG BID 07/28 1000 AC 08/23 PO 0815 Ciprofloxacin 400 MG Q12H 08/11 0500 AC 08/23 Dextrose/Water 200 ML IV 0521 Dextrose/Water 1,000 ML ONCE ONE 08/22 1830 DC 08/22 IV 08/23 1429 1936 Fentanyl Citrate 25 MCG Q4P PRN 08/05 2130 AC 08/21 IV 1115 Glycerin 2 SPRAY Q2P PRN 08/10 0445 AC 08/19 PO 2150 Heparin Sodium 5,000 UNIT Q8 08/05 1400 AC 08/23 (Porcine) SC 0529 Insulin Aspart 0 Q4 07/25 1000 AC 08/23 SC 0534 Insulin Detemir 17 UNITS BID 08/13 2200 AC 08/22 SC 2257 Metronidazole 500 MG IQ8 08/16 1600 AC 08/23 N/A 1 UNIT IV 0747 Octreotide Acetate 500 MCG Q20H 07/15 1400 AC 08/22 Dextrose/Water 500 ML IV 0541 Pantoprazole Sodium 40 MG BID 07/10 1016 AC 08/23 IV 0814 Potassium Chloride 20 MEQ BID 08/10 2200 AC 08/23 PO 0814 Vital Signs & I&O Last 24 Hrs of Vitals and I&O: Vital Signs Date Time Temp Pulse Resp B/P B/P Pulse O2 O2 Flow FiO2 Mean Ox Delivery Rate 08/23 0815 69 109/57 08/23 0801 35 08/23 0800 96 Ventilator 35% 08/23 0800 99.5 68 20 109/57 96 Ventilator 35% 08/23 0546 35 08/23 0400 95 Ventilator 35% 08/23 0319 35 08/23 0036 35 08/23 0000 98.2 74 21 90/60 96 Ventilator 35% 08/23 0000 96 Ventilator 35% 08/22 2253 81 98/55 08/22 2211 35 08/22 2000 94 Ventilator 35% 08/22 1925 35 08/22 1628 35 08/22 1600 97.8 70 22 96/54 96 Ventilator 35% 08/22 1600 97 Ventilator 35% 08/22 1441 35 08/22 1200 97 Ventilator 35% 08/22 1142 35 08/22 1055 70 101/59 Intake & Output 08/23 1600 08/23 0800 08/23 0000 Intake Total 1117 1000 Output Total 350 470 Balance 767 530 Intake, IV 461 645 Intake, Tube 576 205 Feeding Intake, Tube 80 150 Irrigant Number 25 75 Bowel Movements Output, 0 170 Drainage Output, 0 0 Gastric Drainage Output, Urine 350 300 Laboratory Tests 08/23 08/22 0428 0500 Chemistry Sodium (137 - 145 mmol/L) 143 146 H Potassium (3.5 - 5.1 mmol/L) 4.4 4.0 Chloride (98 - 107 mmol/L) 114 H 115 H Carbon Dioxide (22 - 30 mmol/L) 22 22 Anion Gap (5 - 16) 7 9 BUN (9 - 20 mg/dL) 29 H 27 H Creatinine (0.7 - 1.2 mg/dL) 0.6 L 0.6 L Estimated GFR (>60 ml/min) > 60 > 60 Glucose (65 - 99 mg/dL) 144 H 141 H Calcium (8.4 - 10.2 mg/dL) 7.8 L 7.6 L Phosphorus (2.5 - 4.5 mg/dL) 3.4 2.8 Magnesium (1.6 - 2.3 mg/dL) 1.9 1.9 Total Bilirubin (0.2 - 1.3 mg/dL) 0.2 0.2 AST (17 - 59 U/L) 51 59 ALT (21 - 72 U/L) 61 66 Albumin (3.5 - 5.0 g/dL) 1.8 L 1.8 L Hematology CBC w Diff NO MAN DIFF REQ MAN DIFF ORDERED WBC (4.8 - 10.8 /CUMM) 9.9 10.0 RBC (4.70 - 6.10 /CUMM) 3.09 L 3.09 L Hgb (14.0 - 18.0 G/DL) 9.3 L 9.3 L Hct (42 - 52 %) 29.1 L 29.0 L MCV (80.0 - 94.0 FL) 94.0 93.8 MCH (27.0 - 31.0 PG) 30.2 30.0 RDW (11.5 - 14.5 %) 23.9 H 22.4 H Plt Count (130 - 400 /CUMM) 205 201 MPV (7.4 - 10.4 FL) 8.8 9.1 Gran % (42.2 - 75.2 %) 58.6 59.2 Lymphocytes % (20.5 - 51.1 %) 32.0 30.7 Monocytes % (1.7 - 9.3 %) 8.1 9.2 Eosinophils % (0 - 5 %) 0.7 0.4 Basophils % (0.0 - 2.0 %) 0.6 0.5 Absolute Granulocytes (1.4 - 6.5 /CUMM) 5.8 5.9 Segmented Neutrophils (42.2 - 75.2 %) 64 Band Neutrophils (0.0 - 5.0 %) 12 H Absolute Lymphocytes (1.2 - 3.4 /CUMM) 3.2 3.1 Lymphocytes (20.5 - 51.1 %) 16 L Monocytes (1.7 - 9.3 %) 8 Absolute Monocytes (0.10 - 0.60 /CUMM) 0.8 H 0.9 H Absolute Eosinophils (0.0 - 0.7 /CUMM) 0.1 0 Absolute Basophils (0.0 - 0.2 /CUMM) 0.1 0.1 Nucleated RBCs (0.0 - 0.0 /100WBC) 1 H Platelet Estimate (ADEQUATE) ADEQUATE Polychromasia 1+ Anisocytosis 1+ Stomatocytes 1+ PUBS MCHC (33.0 - 37.0 G/DL) 32.1 L 32.0 L Microbiology Date/Time Procedure - Status Source Growth 08/21 2015 Respiratory Culture - CAN LOWER RESP Cancelled: NUMBER OF SQUAMOUS CELLS INDICATES POOR QUALITY SPECIMEN 08/21 2015 Gram Stain - CAN LOWER RESP Cancelled: NUMBER OF SQUAMOUS CELLS INDICATES POOR QUALITY SPECIMEN 08/21 1915 Respiratory Culture - CAN LOWER RESP Cancelled: NUMBER OF SQUAMOUS CELLS INDICATES POOR QUALITY SPECIMEN 08/21 1915 Gram Stain - CAN LOWER RESP Cancelled: NUMBER OF SQUAMOUS CELLS INDICATES POOR QUALITY SPECIMEN Impression/Plan Impression/Plan Impression/Plan: Afebrile. Intubated Skin reveals no rash. HEENT negative. Neck supple with no adenopathy; Picc line in place Lungs decreased breath sounds bilaterally. Heart regular rhythm with no murmur. Abdomen is obese, distended, tender to palpation, Incision noted with a gabriela drain in the rt side, feeding tube on the left side Extremities superficial ulcerations over the anterior tibial aspects of both legs, with 1+ edema bilaterally. Neuro is without focality. 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 with prolonged antibiotic, previous history of peptic ulcer disease, diabetes, sinus rhythm upon admission was on Tikosyn, hyperlipidemia, apparently has never smoked before, previous history of lithotripsy, CABG, previous hip prosthesis infection status post removal of prosthesis in early 2016 now has the following issues * S/p Perf large DU ulcer s/p surg with unsuccessful du repair with peritonitis, persistant leak / now has sig gabriela drainage with ng suction and somatostatin / Patient now has significant fluid collection in the right paracolic gutter reinsertion of pig tail with prob has necrotizing fascitis of the abd wall mild * S/p Severe shock septic on multiple pressors now off pressors, with ongoing intraabd sepsis and prob atx and pna * Resolving Hypoxic respiratory failureSputum does have enterobacter and staph * Sig drainage from the gabriela biliary leak and fluid collection which is ongoing/ with fluid collection which is pyogenic * Significant ischemic heart disease with low ejection fraction high risk for fluid overload. Previous pafib in sinus now with a pacer and AICD. 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 * H/O LIAM was on cpap * On stress dose steroids now being weaned off * On and off diarrhea * CT reviewed pt has a stroke and sig sinusitis * For trach RECOMMENDATION * COnt current care and antibiotics per ID * PT is clearly not making any progress disussed with nephew in detail before will go for trach * Intravenous pantoprazole * Heparin subcutaneous * Trach for today DNR Pt critically ill tts 39 mins
--- NOTE | 2017-08-23 10:38 | PN- Infect Dx ---
Subjective Subjective: Afebrile without complaints Objective Last 24 Hrs of Vital Signs/I&O Vital Signs Date Time Temp Pulse Resp B/P B/P Pulse O2 O2 Flow FiO2 Mean Ox Delivery Rate 08/23 0815 69 109/57 08/23 0801 35 08/23 0800 96 Ventilator 35% 08/23 0800 99.5 68 20 109/57 96 Ventilator 35% 08/23 0546 35 08/23 0400 95 Ventilator 35% 08/23 0319 35 08/23 0036 35 08/23 0000 98.2 74 21 90/60 96 Ventilator 35% 08/23 0000 96 Ventilator 35% 08/22 2253 81 98/55 08/22 2211 35 08/22 2000 94 Ventilator 35% 08/22 1925 35 08/22 1628 35 08/22 1600 97.8 70 22 96/54 96 Ventilator 35% 08/22 1600 97 Ventilator 35% 08/22 1441 35 08/22 1200 97 Ventilator 35% 08/22 1142 35 08/22 1055 70 101/59 Intake & Output 08/23 1600 08/23 0800 08/23 0000 Intake Total 1117 1000 Output Total 350 470 Balance 767 530 Intake, IV 461 645 Intake, Tube 576 205 Feeding Intake, Tube 80 150 Irrigant Number 25 75 Bowel Movements Output, 0 170 Drainage Output, 0 0 Gastric Drainage Output, Urine 350 300 Physical Exam Other Physical Findings: He is lethargic but arousable on the ventilator in no acute distress Lungs are clear Heart regular rhythm with no murmur Abdomen is distended, nontender with positive bowel sounds; [address] on the right, with 590 mL output from one and 40 mL output from the other yesterday ; rectal tube in place Extremities trace edema of the right lower extremity; PICC in the right upper extremity with no inflammation at the site Duvall catheter remains in place Results Last 24 Hours of Lab Results: Laboratory Tests 08/23 428 Chemistry Sodium (137 - 145 mmol/L) 143 Potassium (3.5 - 5.1 mmol/L) 4.4 Chloride (98 - 107 mmol/L) 114 H Carbon Dioxide (22 - 30 mmol/L) 22 Anion Gap (5 - 16) 7 BUN (9 - 20 mg/dL) 29 H Creatinine (0.7 - 1.2 mg/dL) 0.6 L Estimated GFR (>60 ml/min) > 60 Glucose (65 - 99 mg/dL) 144 H Calcium (8.4 - 10.2 mg/dL) 7.8 L Phosphorus (2.5 - 4.5 mg/dL) 3.4 Magnesium (1.6 - 2.3 mg/dL) 1.9 Total Bilirubin (0.2 - 1.3 mg/dL) 0.2 AST (17 - 59 U/L) 51 ALT (21 - 72 U/L) 61 Albumin (3.5 - 5.0 g/dL) 1.8 L Hematology CBC w Diff NO MAN DIFF REQ WBC (4.8 - 10.8 /CUMM) 9.9 RBC (4.70 - 6.10 /CUMM) 3.09 L Hgb (14.0 - 18.0 G/DL) 9.3 L Hct (42 - 52 %) 29.1 L MCV (80.0 - 94.0 FL) 94.0 MCH (27.0 - 31.0 PG) 30.2 RDW (11.5 - 14.5 %) 23.9 H Plt Count (130 - 400 /CUMM) 205 MPV (7.4 - 10.4 FL) 8.8 Gran % (42.2 - 75.2 %) 58.6 Lymphocytes % (20.5 - 51.1 %) 32.0 Monocytes % (1.7 - 9.3 %) 8.1 Eosinophils % (0 - 5 %) 0.7 Basophils % (0.0 - 2.0 %) 0.6 Absolute Granulocytes (1.4 - 6.5 /CUMM) 5.8 Absolute Lymphocytes (1.2 - 3.4 /CUMM) 3.2 Absolute Monocytes (0.10 - 0.60 /CUMM) 0.8 H Absolute Eosinophils (0.0 - 0.7 /CUMM) 0.1 Absolute Basophils (0.0 - 0.2 /CUMM) 0.1 PUBS MCHC (33.0 - 37.0 G/DL) 32.1 L Last 24 Hours of Les Results: No new cultures Recent Imaging Studies: Chest x-ray August 23, personally reviewed, reveals a minimal left lower lobe density CT of the abdomen and pelvis August 22 reveals a small residual fluid collection around the more superior and medial pigtail catheter in the right midabdomen with associated locules of air Assessment/Plan Impression: Remains stable, status post drainage of 2 right sided collections 8 days ago, with the CT scan from yesterday revealing undrained fluid around the superior drain, which may explain the persistent bandemia, with his temperatures remaining normal on Ciprofloxacin and Flagyl for Enterobacter isolated from the left abdominal collection that was drained 15 days ago, status post removal of the catheter earlier today. He is now 38 days status post unsuccessful duodenal repair and 45 days status post his initial surgery for a perforated duodenal ulcer. Unfortunately, he remains at risk for the development of recurrent collections as long as his enteric leak persists. Suggestion: 1. Repositioning of the superior catheter on the right per IR (discussed with IR) 2. Await tracheostomy, possibly later today 3. Continue Ciprofloxacin and Flagyl
--- NOTE | 2017-08-23 10:50 | PN- Diabetes ---
Assessment/Plan Assessment: 76-year-old male with Hx of CAD with low ejection fraction, atrial fibrillation, AICD, previous infection of hip with prolonged antibiotic, history of peptic ulcer disease, diabetes and renal stone, was admitted for perforation of duodenum now with septic shock in ICU. He was on 3 pressors, TPN, octreotide drip and bicarb drip. His BP remained low and stress dose of steroid was initiated despite his am cortisol was 24.8. Patient is still on octreotide drip. Patient was re-intubated on 07/26/2017. Hydrocortisone was discontinued on 08/13/2017. Currently he is on tube feeding with Vital 85 mL per hour. Levemir was decreased to 17 units twice a day and Novolog coverage every 4 hours was adjusted multiple times. However, patient might go back to OR this afternoon at around 4: 30 pm. Levemir was held this morning. Plan: 1. repeat am cortisol; if it is borderline or low, I will recommend stress dose of steroid right before he goes to OR. 2. continue holdling off on Levemir for now; 3. hold off on Novolog coverage if his feeding is held. 4. monitor FSGs, electrolytes and vital signs. will follow. Subjective Subjective: He probably will go to OR this afternoon. Objective Last 24 Hrs of Vital Signs/I&O Vital Signs Date Time Temp Pulse Resp B/P B/P Pulse O2 O2 Flow FiO2 Mean Ox Delivery Rate 08/23 0815 69 109/57 08/23 0801 35 08/23 0800 96 Ventilator 35% 08/23 0800 99.5 68 20 109/57 96 Ventilator 35% 08/23 0546 35 08/23 0400 95 Ventilator 35% 08/23 0319 35 08/23 0036 35 08/23 0000 98.2 74 21 90/60 96 Ventilator 35% 08/23 0000 96 Ventilator 35% 08/22 2253 81 98/55 08/22 2211 35 08/22 2000 94 Ventilator 35% 08/22 1925 35 08/22 1628 35 08/22 1600 97.8 70 22 96/54 96 Ventilator 35% 08/22 1600 97 Ventilator 35% 08/22 1441 35 08/22 1200 97 Ventilator 35% 08/22 1142 35 08/22 1055 70 101/59 Intake & Output 08/23 1600 08/23 0800 08/23 0000 Intake Total 1117 1000 Output Total 350 470 Balance 767 530 Intake, IV 461 645 Intake, Tube 576 205 Feeding Intake, Tube 80 150 Irrigant Number 25 75 Bowel Movements Output, 0 170 Drainage Output, 0 0 Gastric Drainage Output, Urine 350 300 Findings Pertinent Lab/Les Results: Laboratory Tests 08/23 0428 Chemistry Sodium (137 - 145 mmol/L) 143 Potassium (3.5 - 5.1 mmol/L) 4.4 Chloride (98 - 107 mmol/L) 114 H Carbon Dioxide (22 - 30 mmol/L) 22 Anion Gap (5 - 16) 7 BUN (9 - 20 mg/dL) 29 H Creatinine (0.7 - 1.2 mg/dL) 0.6 L Estimated GFR (>60 ml/min) > 60 Glucose (65 - 99 mg/dL) 144 H Calcium (8.4 - 10.2 mg/dL) 7.8 L Phosphorus (2.5 - 4.5 mg/dL) 3.4 Magnesium (1.6 - 2.3 mg/dL) 1.9 Total Bilirubin (0.2 - 1.3 mg/dL) 0.2 AST (17 - 59 U/L) 51 ALT (21 - 72 U/L) 61 Albumin (3.5 - 5.0 g/dL) 1.8 L Hematology CBC w Diff NO MAN DIFF REQ WBC (4.8 - 10.8 /CUMM) 9.9 RBC (4.70 - 6.10 /CUMM) 3.09 L Hgb (14.0 - 18.0 G/DL) 9.3 L Hct (42 - 52 %) 29.1 L MCV (80.0 - 94.0 FL) 94.0 MCH (27.0 - 31.0 PG) 30.2 RDW (11.5 - 14.5 %) 23.9 H Plt Count (130 - 400 /CUMM) 205 MPV (7.4 - 10.4 FL) 8.8 Gran % (42.2 - 75.2 %) 58.6 Lymphocytes % (20.5 - 51.1 %) 32.0 Monocytes % (1.7 - 9.3 %) 8.1 Eosinophils % (0 - 5 %) 0.7 Basophils % (0.0 - 2.0 %) 0.6 Absolute Granulocytes (1.4 - 6.5 /CUMM) 5.8 Absolute Lymphocytes (1.2 - 3.4 /CUMM) 3.2 Absolute Monocytes (0.10 - 0.60 /CUMM) 0.8 H Absolute Eosinophils (0.0 - 0.7 /CUMM) 0.1 Absolute Basophils (0.0 - 0.2 /CUMM) 0.1 PUBS MCHC (33.0 - 37.0 G/DL) 32.1 L
--- NOTE | 2017-08-23 11:43 | PN- Cardiology ---
Subjective Subjective: Remains intubated. Objective Vital Signs and I&Os Vital Signs Date Time Temp Pulse Resp B/P B/P Pulse O2 O2 Flow FiO2 Mean Ox Delivery Rate 08/23 1122 35 08/23 0815 69 109/57 08/23 0801 35 08/23 0800 96 Ventilator 35% 08/23 0800 99.5 68 20 109/57 96 Ventilator 35% 08/23 0546 35 08/23 0400 95 Ventilator 35% 08/23 0319 35 08/23 0036 35 08/23 0000 98.2 74 21 90/60 96 Ventilator 35% 08/23 0000 96 Ventilator 35% 08/22 2253 81 98/55 08/22 2211 35 08/22 2000 94 Ventilator 35% 08/22 1925 35 08/22 1628 35 08/22 1600 97.8 70 22 96/54 96 Ventilator 35% 08/22 1600 97 Ventilator 35% 08/22 1441 35 08/22 1200 97 Ventilator 35% 08/22 1142 35 Intake & Output 08/23 1600 08/23 0800 08/23 0000 08/22 1600 08/22 0800 08/22 0000 Intake Total 1117 1000 1105 1260 1350 Output Total 128 406 9046 805 405 Balance 767 530 65 455 945 Intake, IV 461 645 322 500 500 Intake, Oral 0 0 0 Intake, Tube 576 205 763 680 680 Feeding Intake, Tube 80 150 20 80 170 Irrigant Number 25 75 Bowel Movements Output, 0 170 290 170 Drainage Output, 0 0 0 75 Gastric Drainage Output, Stool 375 100 Output, Urine 350 300 375 460 405 Physical Exam: Well-developed, morbidly obese elderly male who was lethargic but arousable on a ventilator. Neck: No JVD, no bruits. Lungs: Lungs clear to auscultation anteriorly. Heart: S1, S2 (regular) with grade 1-2/6 systolic murmur. Abdomen: Distended and tender to palpation with positive bowel sounds. Extremities: No cyanosis, clubbing or edema. Current Medications: Current Medications Sig/Buck Start time Last Medication Dose Route Stop Time Status Admin Acetaminophen 1,000 MG Q6P PRN 07/16 0530 AC 07/20 N/A 1 UNIT IV 0659 Albuterol Sulfate 3 ML EVERY 4 HRS/AWAKE 07/27 08 AC 08/23 INH 1129 Aspirin 81 MG DAILY 08/16 2345 AC 08/23 PO 0815 Atorvastatin Calcium 40 MG 1700 08/16 1700 AC 08/21 PO 1730 Budesonide/ 2 PUF BID 07/26 1056 AC 08/23 Formoterol Fumarate INH 0840 Carvedilol 3.125 MG BID 07/28 1000 AC 08/23 PO 0815 Ciprofloxacin 400 MG Q12H 08/11 0500 AC 08/23 Dextrose/Water 200 ML IV 0521 Dextrose/Water 1,000 ML ONCE ONE 08/22 1830 DC 08/22 IV 08/23 1429 1936 Fentanyl Citrate 25 MCG Q4P PRN 08/05 2130 AC 08/23 IV 1019 Glycerin 2 SPRAY Q2P PRN 08/10 0445 AC 08/19 PO 2150 Heparin Sodium 5,000 UNIT Q8 08/05 1400 AC 08/23 (Porcine) SC 0529 Insulin Aspart 0 Q4 07/25 1000 AC 08/23 SC 0534 Insulin Detemir 17 UNITS BID 08/13 2200 AC 08/22 SC 2257 Metronidazole 500 MG IQ8 08/16 1600 AC 08/23 N/A 1 UNIT IV 0747 Octreotide Acetate 500 MCG Q20H 07/15 1400 AC 08/22 Dextrose/Water 500 ML IV 0541 Pantoprazole Sodium 40 MG BID 07/10 1016 AC 08/23 IV 0814 Potassium Chloride 20 MEQ BID 08/10 2200 AC 08/23 PO 0814 Results Last 48 Hrs of Labs/Mics: Laboratory Tests 08/23/17 0428: Anion Gap 7, Estimated GFR > 60, Glucose 144 H, Calcium 7.8 L, Phosphorus 3.4, Magnesium 1.9, Total Bilirubin 0.2, AST 51, ALT 61, Albumin 1.8 L, Cortisol AM Sample Pending, CBC w Diff NO MAN DIFF REQ, RBC 3.09 L, MCV 94.0, MCH 30.2, RDW 23.9 H, MPV 8.8, Gran % 58.6, Lymphocytes % 32.0, Monocytes % 8.1, Eosinophils % 0.7, Basophils % 0.6, Absolute Granulocytes 5.8, Absolute Lymphocytes 3.2, Absolute Monocytes 0.8 H, Absolute Eosinophils 0.1, Absolute Basophils 0.1, PUBS MCHC 32.1 L 08/22/17 0500: Anion Gap 9, Estimated GFR > 60, Glucose 141 H, Calcium 7.6 L, Phosphorus 2.8, Magnesium 1.9, Total Bilirubin 0.2, AST 59, ALT 66, Albumin 1.8 L, CBC w Diff MAN DIFF ORDERED, RBC 3.09 L, MCV 93.8, MCH 30.0, RDW 22.4 H, MPV 9.1, Gran % 59.2, Lymphocytes % 30.7, Monocytes % 9.2, Eosinophils % 0.4, Basophils % 0.5, Absolute Granulocytes 5.9, Segmented Neutrophils 64, Band Neutrophils 12 H, Absolute Lymphocytes 3.1, Lymphocytes 16 L, Monocytes 8, Absolute Monocytes 0.9 H, Absolute Eosinophils 0, Absolute Basophils 0.1, Nucleated RBCs 1 H, Platelet Estimate ADEQUATE, Polychromasia 1+, Anisocytosis 1+, Stomatocytes 1+, PUBS MCHC 32.0 L Recent Imaging Studies: CXR 08/23/2017: 1. No interval change in position of the ET tube. 2. Mild stable cardiomegaly. 3. Left lower lobe pleural effusion with possible underlying consolidation. CT abdomen/pelvis 08/22/2017: 1. No significant residual fluid collection is seen associated with the more inferior and lateral of the two right lower quadrant pigtail catheters. 2. Small residual fluid collection remains around the more superior and medial pigtail catheter in the right mid abdomen with associated locules of air. 3. Residual trace anasarca. Small bilateral pleural effusions and mesenteric edema remain unchanged. 4. No change in bilateral lower lobe volume loss and consolidation. 5. Bilateral renal masses are poorly seen, likely represent cysts. Several bilateral nonobstructing renal calculi again seen. Assessment/Plan Assessment/Plan [id number] w/ hx of morbid obesity, LIAM on CPAP, COPD, HTN, HLD, DM, CAD/ICM (s/ p IMI in 1998, CABG 4 w/ WHITE to LAD and individual SVGs to Dx, OM, PDA & MAZE) , and recurrent PAF who presented in an unkempt state via ambulance w/ UTI & subsequently had a perforation of a duodenal ulcer for which he underwent surgery (Fabrizio patch) on 07/09/2017 with worsening clinical status requiring return to the OR on 07/16/2017 for exploratory laparotomy and suture repair duodenal ulcer with Fabrizio patch. Status post drainage of a left abdominal abscess on 08/08/2017 w/ pus aspiration & catheter in place. Hemodynamically stable with properly functioning electronic pacemaker nearing end-of-life (EOL), but without immediate concern for pacemaker failure. No new cardiac issues. Continued output from WILLEM drains and persistent purulent drainage from his incision, that is felt by surgery to represent necrotic fascia. He has been deemed a nonsurgical candidate for this issue. Tracheostomy had been planned for 08/22/2017, but will performed at some point today. IR to reposition superior drain based on CT findings. Recommendations: * If further significant ventricular tachycardia can place on amiodarone. * Pacemaker functioning properly and should for months, even though near EOL. * Replete potassium and aim to maintain between 4.0-4.5 mEq per liter. * Replete magnesium and aim to maintain at or above 2.0 mEq per liter. * Continue to follow-up on infectious disease, critical care, endocrine, renal and surgical recommendations. * Continue DVT prophylaxis. Continue telemetry? Not applicable (In ICU.)
[2017-08-23 12:00] VITALS: BP 100/60
[2017-08-23 15:55] VITALS: BP 116/60
--- NOTE | 2017-08-23 19:03 | Operative Report ---
Operative/Inv Procedure Report Surgery Date: 08/23/17 Name of Procedure: tracheostomy Pre-Operative Diagnosis: respiratory failure Post-Operative Diagnosis: same Estimated Blood Loss: scant Surgeon/Manager Forensic: Angel Trimble MD/COLLEEN Holland Anesthesia: general endotracheal tube Implants: #8 Bivona tracheostomy tube, cuffed Operative Indication: Acute respiratory failure Operative/Procedure Note Note: Patient brought to the operating room laid supine. Gen. anesthesia was obtained and his neck was prepped and draped. The skin was able to local anesthesia and a transverse supraclavicular incision made sharply. We dissected through the subcutaneous tissues with cautery and incised the musculature longitudinally. Self-retaining retractors were placed. We dissected down to what ended up being the thyroid cartilage. His trachea was very deep below the manubrium. We followed cricoid cartilage and found the tracheal rings below. Retractors were placed deeper. It was difficult to visualize and more mobilization of tissues around the wound were then performed with cautery. I chose a #8 tracheostomy tube. The longer one is the standard size was too short. An inferior based tracheal flap was then created sharply and 2-0 Prolene sutures placed through it. The ET tube was retracted and tracheostomy tube placed. The cuff was inflated and patient ventilated without difficulty. Topical hemostatic agent was applied and the wound. The tube was secured to his neck with 4 interrupted 2-0 nylon sutures as well as the cloth band. Patient was then transferred back to the ICU in stable condition. CC: Evert RODRÍGUEZ,Hanh
--- NOTE | 2017-08-23 23:28 | Transfer of Care Summary ---
Hospital Course Course Hospital Course: This is a transfer of care summary from 07/27/17 to present #Endotracheal intubation -Patient continues to be intubated, failed trials for extubation and finally got the tracheostomy tonight 08/23. Goals of care has been discussed with the nephew by Cayden Douglas MD and Dr. Trimble #Stroke -Patient was found to be more lethargic and unresponsive, CT head without contrast 08/16 was obtained that revealed areas of hypodensity in the right cerebellum and at the left frontal convexity that are new since the prior study and represent age indeterminate regions of infarction. The right cerebellar region is suspected to be late subacute to chronic, while the left frontal region could be more subacute. Patient was started on low-dose aspirin after cleared by surgery and statin. Carotid Doppler was obtained that revealed to 45% obstruction of right carotid artery however left carotid artery have not been assessed because of positioning difficulties. #Septic shock--resolved - 2/2 peritonitis from perforated duodenal ulcer, Off Levophed and stress cortisone was tapered and discontinued. #V. tach - Patient has electronic pacemaker nearing end-of-life (EOL), but without immediate concern for pacemaker failure, was evaluated by Dr. Sanchez cardiology. Yesterday there was some nursing reports about failure of pacing however was again evaluated by cardiology who reported proper functioning and showed last for months. Recommendation to give amiodarone in case of sustained V. tach. - Continue Carvedilol 3.125 twice a day with holding parameters - Continue to hold tikosyn # Perforated duodenal ulcer s/p repair -CT abdomin without IV contrast was obtained 08/14 that revealed multiple locuated fluid collections, S/P IR drainage with palcement of right upper and lower abdominal drainage catheters, on 08/23 R. WILLEM drain didn't have proper drainage, plans for repositioning by IR tomorrow 08/23. Repeated CT abdomen and pelvis 08/22 revealing undrained fluid around the superior drain. -Status post Successful ultrasound-guided placement of 12 Indonesian pigtail catheter into left abdominal abscess cavity on 08/08/17, with minimal drainage and ID recommendation to remove it however surgery wants to keep it. -Body fluid culture grew heavy growth of gram-negative rods, culture growing Enterobacter, patient started on Vancomycin and Meropenem but after 3 days as per ID recommendations, Antibiotics changed Flagyl 500 mg IV every 8 hours and Ciprofloxacin 400 mg IV every 12 hours day 3 - Status post expiratory laparotomy and suture repair of duodenal ulcer with Fabrizio patch on 07/09 and 07/16--- no recommendation for further surgical intervention at the moment - Continue octreotide drip but noticed decreasing continuous drainage from WILLEM - IV Protonix 40mg BID - Status post daptomycin and meropenem, ID on board, body fluid culture 2 from the OR positive for vancomycin-resistant enterococcus -Respiratory culture from 07/18 positive for vancomycin-resistant enterococcus -Respiratory culture from 07/30 positive for 1. Moderate growth of: ESCHERICHIA COLI 2. Light growth of: BETA STREP GROUP B -Respiratory culture from 07/30 positive for Scant growth of 1. ENTEROBACTER AEROGENES 2. Light growth of: STAPH AUREUS, likely colonization #USMAN - Resolved - Continue to montior UOP, monitor BUN increase #Uncontrolled DM, secondary to Sepsis, pressors and octreotide - Continue Levemir 17 units twice a day - Novolog SS every 4 hours - Target Blood sugar 140 -180 - Continue to follow endocrine recommendation - DVT prophylaxis ALPS and SC heparin - Diet Continue on J tube feeding, rate 85 ml/h - Code Status DNR Assessment/Plan: see above
[2017-08-24] VITALS: BP 95/56
[2017-08-24 04:38] LABS: ABSOLUTE BASOPHIL COUNT 0.1 /CUMM (0.0-0.2); ABSOLUTE EOSINOPHIL COUNT 0.1 /CUMM (0.0-0.7); ABSOLUTE GRANULOCYTE CT 6.3 /CUMM (1.4-6.5); ABSOLUTE LYMPH COUNT 3.5 /CUMM (1.2-3.4); ABSOLUTE MONOCYTE COUNT 0.7 /CUMM (0.10-0.60); BASOPHIL % 0.5 % (0.0-2.0); EOSINOPHIL % 0.6 % (0-5); HEMATOCRIT 31.4 % (42-52); MEAN CORPUSCULAR HGB CONC 31.7 G/DL (33.0-37.0); MEAN CORPUSCULAR VOLUME 94.7 FL (80.0-94.0); MEAN PLATELET VOLUME 8.8 FL (7.4-10.4); PLATELET COUNT 209 /CUMM (130-400); RBC DISTRIBUTION WIDTH 23.5 % (11.5-14.5); RED BLOOD CELL CT 3.32 /CUMM (4.70-6.10); WHITE BLOOD CELL COUNT 10.7 /CUMM (4.8-10.8)
--- NOTE | 2017-08-24 07:05 | PN- Resident CRCU ---
Subjective HPI/CRCU Issues: Mr Walls was seen and examined this morning. He is resting comfortably in bed. Does not endorse any complaints. He appears lethargic and is minimally responsive. He was scheduled to go for IR repositioning of drains, however, this procedure was cancelled. 24 Hour Events: Patient underwent insertion of a Tracheostomy tube 08/23/2017 T" 99.5. HR: 68-90. RR: 14-22. BP: 88/53-127/74. Total Intake: 2616. Output: 1575. Objective Vital Signs & I&O Last 8 Hrs of Vitals and I&O: T" 99.5. HR: 68-90. RR: 14-22. BP: 88/53-127/74. Total Intake: 2616. Output: 1575. Exam General Appearance: comfortable, lethargic Respiratory: normal breath sounds, chest non-tender, Tracheostomy in place. Cardiovascular: regular rate/rhythm Gastrointestinal: normal bowel sounds, soft, non-tender, distention, Distended abdomen, BS + [address] Minimal Drainage from lateral catheter. 210 mL output. Extremities: normal inspection, normal capillary refill, no edema Weaning Parameters NIF: 21 Minute Volume: 11.8 Resp rate: 42 Vt: 280 Heart Rate: 71 Weaning Schedule Start Time: 1310 Minute Volume: 11.1 Resp Rate: 575 Vt: 27 Heart Rate: 75 End Time: 1440 Minute Volume: 12.1 Resp Rate: 478 Vt: 28 Heart Rate: 80 Current Medications: Current Medications Sig/Buck Start time Last Medication Dose Route Stop Time Status Admin Acetaminophen 1,000 MG Q6P PRN 07/16 0530 AC 07/20 N/A 1 UNIT IV 0659 Albuterol Sulfate 3 ML EVERY 4 HRS/AWAKE 07/27 0800 AC 08/24 INH 1144 Alteplase, 2 MG ONE ONE 08/24 0515 DC 08/24 Recombinant IV 08/24 0516 1335 Aspirin 81 MG DAILY 08/16 2345 AC 08/24 PO 0912 Atorvastatin Calcium 40 MG 1700 08/16 1700 AC 08/21 PO 1730 Budesonide/ 2 PUF BID 07/26 1056 AC 08/24 Formoterol Fumarate INH 0816 Carvedilol 3.125 MG BID 07/28 1000 AC 08/24 PO 0912 Ciprofloxacin 400 MG Q12H 08/11 0500 DC 08/24 Dextrose/Water 200 ML IV 0544 Dextrose/Sodium 1,000 ML Q20H 08/23 2030 DC 08/23 Chloride IV 2109 Fentanyl Citrate 100 MCG .STK-MED ONE 08/23 1742 DC IM 08/23 1743 Fentanyl Citrate 100 MCG .STK-MED ONE 08/23 1424 DC IM 08/23 1425 Fentanyl Citrate 25 MCG Q4P PRN 08/05 2130 AC 08/24 IV 1217 Glycerin 2 SPRAY Q2P PRN 08/10 0445 AC 08/19 PO 2150 Heparin Sodium 5,000 UNIT Q8 08/05 1400 AC 08/24 (Porcine) SC 1322 Insulin Aspart 0 Q4 07/25 1000 AC 08/23 SC 0534 Insulin Detemir 14 UNITS BID 08/24 2200 AC SC Insulin Detemir 8 UNITS ONCE ONE 08/23 2200 DC 08/23 SC 08/23 2201 2158 Insulin Detemir 17 UNITS BID 08/13 2200 DC 08/22 SC 2257 Magnesium Oxide 400 MG ONE ONE 08/24 1245 DC 08/24 PO 08/24 1246 1321 Metronidazole 500 MG IQ8 08/16 1600 DC 08/24 N/A 1 UNIT IV 0806 Octreotide Acetate 500 MCG Q20H 07/15 1400 AC 08/24 Dextrose/Water 500 ML IV 1321 Pantoprazole Sodium 40 MG BID 07/10 1016 AC 08/24 IV 0912 Potassium Chloride 20 MEQ BID 08/10 2200 DC 08/23 PO 2111 Impression/Plan Impression/Problem List Impression: This is a 76-year-old male with past medical history of CAD with HFrEF, A. fib, AICD, previous infection of the hip with prolonged antibiotic, history of peptic ulcer disease, diabetes, nephrolithiasis who was transferred to the ICU for perforation of the duodenum with septic shock S/P repair with patch. Repeated CT of the abdomen performed on 07/15 revealed free air/extravasation of contrast into the peritoneal cavity and he was taken to the OR for ex-lap and had re- repair of duodenal ulcer with Fabrizio patch. He remained intubated with subsequent wean trials and extubated on 07/23/2017, unfortunately he was re- intubated on 07/26/2017 due to desaturations and respiratory failure. On 08/23 patient had a trach placed. PLAN #Septic shock secondary to perforated duodenal ulcer A/P Fabrizio patch: He had a catscan yesterday which showed decreased collections. His ramon was removed (it had been in for >40 days) and replaced with a new one. New Ramon Day 3. Micro is shoiwng the body cx with VRE and respiratory cx with VRE. Repeat sputum cx on 08/02 shows GPC and mold. A repeat swab of the draining wound on abdomen showed E. coli and Beta strep Group B. BCx negative to date. Negative aspergillus antibody. H.pylori negative. Aug 08 body cx growing enterobacter aerogenes. Respiratory cx on 08/08 enterobacter aerogenes and staph aureus. * D/C Meropenem 07/30 and D/C Cubicin Day 08/01. * As per ID recomendations will follow the patient off antibiotics. These were stopped today. * Follow-up on pending repeat culture results * Continue on PRN fentanyl for sedation. * Continue Protonix IV 40 mg twice a day * Continue octreotide drip-Plan is to continue drip for duration of intubation * Surgery following * Trach placed 08/23, will continue trachcare as per instructions, PSV trials to continue. Will re assess need for mask trials 08/25. * Pt LLQ drain removed 08/23 History of PAF on Tikosyn * Continue to hold the Tikosyn * Appreciate cardiology recs * Con't Coreg * If further significant ventricular tachycardia can place on amiodarone. DM: * Goal glucose between [id number]. * FSGs were 98, 108, 98, 105 and 111. * Appreciate endocrinology recommendation. * Con't FS * Con't RISS as per scale. Levemir was reduced to 14 units BID. USMAN: RESOLVED. Hyponatremia: RESOLVED. Guarded prognosis DNR Nothing by mouth DVT prophylaxis with subcutaneous heparin Problem List: 1. Peritonitis Pain Ratin Tomorrow's Labs & Rationales: CBC: Monitor H/H ICU bundle: Monitor electrolytes in the setting of acutely ill patient. Plan DVT/Prophylaxis: mechanical, pharmacological
[2017-08-24 08:00] VITALS: BP 94/50
--- NOTE | 2017-08-24 08:23 | PN- Diabetes ---
Assessment/Plan Assessment: 76-year-old male with Hx of CAD with low ejection fraction, atrial fibrillation, AICD, previous infection of hip with prolonged antibiotic, history of peptic ulcer disease, diabetes and renal stone, was admitted for perforation of duodenum now with septic shock in ICU. He was on 3 pressors, TPN, octreotide drip and bicarb drip. His BP remained low and stress dose of steroid was initiated despite his am cortisol was 24.8. Patient is still on octreotide drip. Patient was re-intubated on 07/26/2017. Hydrocortisone was discontinued on 08/13/2017. Repeat am cortisol 15.8 on 2016. He was on tube feeding with Vital 85 mL per hour, Levemir 17 units twice a day and Novolog coverage every 4 hours . Patient underwent tracheostomy on 08/23/2017 and he has another procedure scheduled for today. Feeding has been held. He is currently on D51/2 NS at 50 ml /hour and his FSGs were 98, 108, 98, 105 and 111. Plan: ---will hold off on insulin when the feeding is held; ---when he is restarted on tube feeding at 85 ml/hour, he will be on Levemir 14 units twice a day and Novolog coverage every 4 hours (detail see the inpatient DM order); ---monitor FSGs. will follow. Inpatient Diabetes Orders Every 4 Hours: Bolus Insulin: Novolog < 80 mg/dl: no coverage 80-100 mg/dl: no coverage 101-120 mg/dl: 8 units 121-150 mg/dl: 8 units 151-200 mg/dl: 8 units 201-250 mg/dl: 10 units 251-300 mg/dl: 12 units 301-350 mg/dl: 14 units 351-400 mg/dl: 16 units > 400 mg/dl: 18 units Subjective Subjective: Patient remains intubated. Objective Last 24 Hrs of Vital Signs/I&O Vital Signs Date Time Temp Pulse Resp B/P B/P Pulse O2 O2 Flow FiO2 Mean Ox Delivery Rate 08/24 0802 35 08/24 0558 35 08/24 0400 98 Ventilator 35% 08/24 0308 35 08/24 0055 35 08/24 0000 97.4 84 16 95/56 96 Ventilator 35% 08/24 0000 96 Ventilator 35% 08/232 35 12/19 2126 78 100/60 08/23 2000 95 Ventilator 35% 08/23 1908 35 08/23 1623 35 08/23 1600 96 Ventilator 35% 08/23 1555 99.0 69 21 116/60 93 Ventilator 35% 08/23 1418 35 08/23 1200 97 Ventilator 35% 08/23 1200 98.7 70 20 100/60 96 Ventilator 35% 08/23 1122 35 Intake & Output 08/24 1600 08/24 0800 08/24 0000 Intake Total 915 952 Output Total 450 380 Balance 465 572 Intake, IV 915 852 Intake, Tube 0 0 Feeding Intake, Tube 0 100 Irrigant Number 25 0 Bowel Movements Output, 100 80 Drainage Output, Urine 350 300 Findings Pertinent Lab/Les Results: Laboratory Tests 08/245 Chemistry Sodium (137 - 145 mmol/L) 142 Potassium (3.5 - 5.1 mmol/L) 5.0 Chloride (98 - 107 mmol/L) 116 H Carbon Dioxide (22 - 30 mmol/L) 21 L Anion Gap (5 - 16) 5 BUN (9 - 20 mg/dL) 29 H Creatinine (0.7 - 1.2 mg/dL) 0.7 Estimated GFR (>60 ml/min) > 60 Glucose (65 - 99 mg/dL) 99 Calcium (8.4 - 10.2 mg/dL) 8.0 L Phosphorus (2.5 - 4.5 mg/dL) 4.7 H Magnesium (1.6 - 2.3 mg/dL) 1.9 Total Bilirubin (0.2 - 1.3 mg/dL) 0.5 AST (17 - 59 U/L) 50 ALT (21 - 72 U/L) 64 Albumin (3.5 - 5.0 g/dL) 2.1 L Hematology CBC w Diff MAN DIFF ORDERED WBC (4.8 - 10.8 /CUMM) 10.7 RBC (4.70 - 6.10 /CUMM) 3.32 L Hgb (14.0 - 18.0 G/DL) 10.0 L Hct (42 - 52 %) 31.4 L MCV (80.0 - 94.0 FL) 94.7 H MCH (27.0 - 31.0 PG) 30.0 RDW (11.5 - 14.5 %) 23.5 H Plt Count (130 - 400 /CUMM) 209 MPV (7.4 - 10.4 FL) 8.8 Gran % (42.2 - 75.2 %) 59.0 Lymphocytes % (20.5 - 51.1 %) 33.0 Monocytes % (1.7 - 9.3 %) 6.9 Eosinophils % (0 - 5 %) 0.6 Basophils % (0.0 - 2.0 %) 0.5 Absolute Granulocytes (1.4 - 6.5 /CUMM) 6.3 Segmented Neutrophils (42.2 - 75.2 %) 75 Band Neutrophils (0.0 - 5.0 %) 5 Absolute Lymphocytes (1.2 - 3.4 /CUMM) 3.5 H Lymphocytes (20.5 - 51.1 %) 13 L Monocytes (1.7 - 9.3 %) 6 Absolute Monocytes (0.10 - 0.60 /CUMM) 0.7 H Absolute Eosinophils (0.0 - 0.7 /CUMM) 0.1 Basophils (0.0 - 2.0 %) 1 Absolute Basophils (0.0 - 0.2 /CUMM) 0.1 Platelet Estimate (ADEQUATE) ADEQUATE Polychromasia 1+ Anisocytosis 1+ Stomatocytes 1+ Elliptocytes 1+ PUBS MCHC (33.0 - 37.0 G/DL) 31.7 L
--- NOTE | 2017-08-24 08:35 | PN- CRCU ---
Subjective HPI/Critical Care Issues: S/p trach stable more awake mild pain Objective Current Medications: Current Medications Sig/Buck Start time Last Medication Dose Route Stop Time Status Admin Acetaminophen 1,000 MG Q6P PRN 07/16 0530 AC 07/20 N/A 1 UNIT IV 0659 Albuterol Sulfate 3 ML EVERY 4 HRS/AWAKE 07/27 0800 AC 08/24 INH 0816 Alteplase, 2 MG ONE ONE 08/24 0515 DC Recombinant IV 08/24 0516 Aspirin 81 MG DAILY 08/16 2345 AC 08/23 PO 0815 Atorvastatin Calcium 40 MG 1700 08/16 1700 AC 08/21 PO 1730 Budesonide/ 2 PUF BID 07/26 1056 AC 08/24 Formoterol Fumarate INH 0816 Carvedilol 3.125 MG BID 07/28 1000 AC 08/23 PO 2126 Ciprofloxacin 400 MG Q12H 08/11 0500 AC 08/24 Dextrose/Water 200 ML IV 0544 Dextrose/Sodium 1,000 ML Q20H 08/23 2030 AC 08/23 Chloride IV 2109 Fentanyl Citrate 100 MCG .STK-MED ONE 08/23 1742 DC IM 08/23 1743 Fentanyl Citrate 100 MCG .STK-MED ONE 08/23 1424 DC IM 08/23 1425 Fentanyl Citrate 100 MCG .STK-MED ONE 08/23 1015 DC IM 08/23 1016 Fentanyl Citrate 25 MCG Q4P PRN 08/05 2130 AC 08/23 IV 1427 Glycerin 2 SPRAY Q2P PRN 08/10 0445 AC 08/19 PO 2150 Heparin Sodium 5,000 UNIT Q8 08/05 1400 AC 08/24 (Porcine) SC 0544 Insulin Aspart 0 Q4 07/25 1000 08/23 SC 0534 Insulin Detemir 8 UNITS ONCE ONE 08/23 2200 DC 08/23 SC 08/23 2201 2158 Insulin Detemir 17 UNITS BID 08/13 2200 08/22 SC 2257 Metronidazole 500 MG IQ8 08/16 1600 AC 08/24 N/A 1 UNIT IV 0806 Octreotide Acetate 500 MCG Q20H 07/15 1400 AC 08/23 Dextrose/Water 500 ML IV 1135 Pantoprazole Sodium 40 MG BID 07/10 1016 AC 08/23 IV 2111 Potassium Chloride 20 MEQ BID 08/10 2200 AC 08/23 PO 2111 Vital Signs & I&O Last 24 Hrs of Vitals and I&O: Vital Signs Date Time Temp Pulse Resp B/P B/P Pulse O2 O2 Flow FiO2 Mean Ox Delivery Rate 08/24 0802 35 08/24 0558 35 08/24 0400 98 Ventilator 35% 08/24 0308 35 08/24 0055 35 08/24 0000 97.4 84 16 95/56 96 Ventilator 35% 08/24 0000 96 Ventilator 35% 08/23 2212 35 08/23 2126 78 100/60 08/23 2000 95 Ventilator 35% 08/23 1908 35 08/23 1623 35 08/23 1600 96 Ventilator 35% 08/23 1555 99.0 69 21 116/60 93 Ventilator 35% 08/23 1418 35 08/23 1200 97 Ventilator 35% 08/23 1200 98.7 70 20 100/60 96 Ventilator 35% 08/23 1122 35 Intake & Output 08/24 1600 08/24 0800 08/24 0000 Intake Total 915 952 Output Total 450 380 Balance 465 572 Intake, IV 915 852 Intake, Tube 0 0 Feeding Intake, Tube 0 100 Irrigant Number 25 0 Bowel Movements Output, 100 80 Drainage Output, Urine 350 300 Impression/Plan Impression/Plan Impression/Plan: Afebrile. s/p trach bovona 8 Skin reveals no rash. HEENT negative. Neck supple with no adenopathy; Picc line in place Lungs decreased breath sounds bilaterally. Heart regular rhythm with no murmur. Abdomen is obese, distended, tender to palpation, Incision noted with a gabriela drain in the rt side, feeding tube on the left side Extremities superficial ulcerations over the anterior tibial aspects of both legs, with 1+ edema bilaterally. Neuro is without focality. 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 with prolonged antibiotic, previous history of peptic ulcer disease, diabetes, sinus rhythm upon admission was on Tikosyn, hyperlipidemia, apparently has never smoked before, previous history of lithotripsy, CABG, previous hip prosthesis infection status post removal of prosthesis in early 2017 now has the following issues * S/p Perf large DU ulcer s/p surg with unsuccessful du repair with peritonitis, persistant leak / now has sig gabriela drainage with ng suction and somatostatin / Patient now has significant fluid collection in the right paracolic gutter reinsertion of pig tail with prob has necrotizing fascitis of the abd wall mild * S/p Severe shock septic on multiple pressors now off pressors, with ongoing intraabd sepsis and prob atx and pna * Hypoxic respiratory failureSputum does have enterobacter and staph / s/p trach 08/23 * Sig drainage from the gabriela biliary leak and fluid collection which is ongoing/ with fluid collection which is pyogenic * Significant ischemic heart disease with low ejection fraction high risk for fluid overload. Previous pafib in sinus now with a pacer and AICD. 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 * H/O LIAM was on cpap * On stress dose steroids now being weaned off * On and off diarrhea * CT reviewed pt has a stroke and sig sinusitis * For trach RECOMMENDATION * COnt current care and antibiotics per ID * Intravenous pantoprazole * Heparin subcutaneous * Trach care as per protocol / Can cont psv trials not trach mask trials DNR Pt critically ill tts 39 mins
--- NOTE | 2017-08-24 10:48 | PN- General Surgery ---
Surgical Brief Attending Note Brief Attending Note: trach function well. drains in good position. suspect bandemia due to transient clog in one of drains.
--- NOTE | 2017-08-24 11:01 | PN- Infect Dx ---
Subjective Subjective: Afebrile. He is less responsive and not able to provide any history at this time. He underwent tracheostomy yesterday. The medial right sided catheter was apparently manipulated yesterday, with increased drainage reported after removing a large amount of hard material. Objective Last 24 Hrs of Vital Signs/I&O Vital Signs Date Time Temp Pulse Resp B/P B/P Pulse O2 O2 Flow FiO2 Mean Ox Delivery Rate 08/24 0912 69 106/57 08/24 0802 35 08/24 0558 35 08/24 0400 98 Ventilator 35% 08/24 0308 35 08/24 0055 35 08/24 0000 97.4 84 16 95/56 96 Ventilator 35% 08/24 0000 96 Ventilator 35% 08/23 2212 35 08/23 2126 78 100/60 08/23 2000 95 Ventilator 35% 08/23 1908 35 08/23 1623 35 08/23 1600 96 Ventilator 35% 08/23 1555 99.0 69 21 116/60 93 Ventilator 35% 08/23 1418 35 08/23 1200 97 Ventilator 35% 08/23 1200 98.7 70 20 100/60 96 Ventilator 35% 08/23 1122 35 Intake & Output 08/24 1600 08/24 0800 08/24 0000 Intake Total 915 952 Output Total 450 380 Balance 465 572 Intake, IV 915 852 Intake, Tube 0 0 Feeding Intake, Tube 0 100 Irrigant Number 25 0 Bowel Movements Output, 100 80 Drainage Output, Urine 350 300 Physical Exam Other Physical Findings: He is lethargic/less responsive on the ventilator HEENT status post tracheostomy Lungs are clear Heart regular rhythm with no murmur Abdomen is distended, with no obvious tenderness, positive bowel sounds; 2 abdominal catheters remain in place, with minimal drainage from the lateral catheter but with 210 mL output yesterday and 90 mL overnight from the medial catheter; incision with no erythema and minimal exudate from the inferior aspect ; rectal tube remains in place Extremities minimal edema of all extremities; PICC in the right upper extremity with no inflammation at the site Duvall catheter remains in place Results Last 24 Hours of Lab Results: Laboratory Tests 08/245 Chemistry Sodium (137 - 145 mmol/L) 142 Potassium (3.5 - 5.1 mmol/L) 5.0 Chloride (98 - 107 mmol/L) 116 H Carbon Dioxide (22 - 30 mmol/L) 21 L Anion Gap (5 - 16) 5 BUN (9 - 20 mg/dL) 29 H Creatinine (0.7 - 1.2 mg/dL) 0.7 Estimated GFR (>60 ml/min) > 60 Glucose (65 - 99 mg/dL) 99 Calcium (8.4 - 10.2 mg/dL) 8.0 L Phosphorus (2.5 - 4.5 mg/dL) 4.7 H Magnesium (1.6 - 2.3 mg/dL) 1.9 Total Bilirubin (0.2 - 1.3 mg/dL) 0.5 AST (17 - 59 U/L) 50 ALT (21 - 72 U/L) 64 Albumin (3.5 - 5.0 g/dL) 2.1 L Hematology CBC w Diff MAN DIFF ORDERED WBC (4.8 - 10.8 /CUMM) 10.7 RBC (4.70 - 6.10 /CUMM) 3.32 L Hgb (14.0 - 18.0 G/DL) 10.0 L Hct (42 - 52 %) 31.4 L MCV (80.0 - 94.0 FL) 94.7 H MCH (27.0 - 31.0 PG) 30.0 RDW (11.5 - 14.5 %) 23.5 H Plt Count (130 - 400 /CUMM) 209 MPV (7.4 - 10.4 FL) 8.8 Gran % (42.2 - 75.2 %) 59.0 Lymphocytes % (20.5 - 51.1 %) 33.0 Monocytes % (1.7 - 9.3 %) 6.9 Eosinophils % (0 - 5 %) 0.6 Basophils % (0.0 - 2.0 %) 0.5 Absolute Granulocytes (1.4 - 6.5 /CUMM) 6.3 Segmented Neutrophils (42.2 - 75.2 %) 75 Band Neutrophils (0.0 - 5.0 %) 5 Absolute Lymphocytes (1.2 - 3.4 /CUMM) 3.5 H Lymphocytes (20.5 - 51.1 %) 13 L Monocytes (1.7 - 9.3 %) 6 Absolute Monocytes (0.10 - 0.60 /CUMM) 0.7 H Absolute Eosinophils (0.0 - 0.7 /CUMM) 0.1 Basophils (0.0 - 2.0 %) 1 Absolute Basophils (0.0 - 0.2 /CUMM) 0.1 Platelet Estimate (ADEQUATE) ADEQUATE Polychromasia 1+ Anisocytosis 1+ Stomatocytes 1+ Elliptocytes 1+ PUBS MCHC (33.0 - 37.0 G/DL) 31.7 L Last 24 Hours of Les Results: No new cultures Assessment/Plan Impression: Stable status post tracheostomy yesterday, with temperatures and white blood cell count remaining normal and with decreased bands on today's differential, now 9 days status post drainage of 2 right sided collections. The CT scan from 2 days ago did reveal undrained fluid around the superior (medial) drain, but, with increased drainage reported recently, the planned IR manipulation of this catheter can be deferred as suggested by Surgery. He remains on Ciprofloxacin and Flagyl for Enterobacter isolated from the left abdominal collection that was drained 16 days ago, status post removal of the catheter yesterday, now 39 days status post unsuccessful duodenal repair and 46 days status post his initial surgery for a perforated duodenal ulcer. Although he remains at risk for the development of recurrent collections as long as his enteric leak persists feel that at this point, as he is relatively stable, his antibiotics should be discontinued in order to prevent the emergence of more resistant organisms and to decrease the risk of adverse effects. Suggestion: 1. Discontinue Ciprofloxacin and Flagyl and follow off antibiotics
--- NOTE | 2017-08-24 11:42 | PN- Cardiology ---
Subjective Subjective: Remains on ventilator status post tracheostomy last evening 08/23/2017. Awakens to name, but not responding to questioning otherwise. Objective Vital Signs and I&Os Vital Signs Date Time Temp Pulse Resp B/P B/P Pulse O2 O2 Flow FiO2 Mean Ox Delivery Rate 08/24 0912 69 106/57 08/24 0802 35 08/24 0800 100 Ventilator 35% 08/24 0800 97.6 72 12 94/50 100 Ventilator 35% 08/24 0558 35 08/24 0400 98 Ventilator 35% 08/24 0308 35 08/24 0055 35 08/24 0000 97.4 84 16 95/56 96 Ventilator 35% 08/24 0000 96 Ventilator 35% 08/23 2212 35 08/23 2126 78 100/60 08/23 2000 95 Ventilator 35% 08/23 1908 35 08/23 1623 35 08/23 1600 96 Ventilator 35% 08/23 1555 99.0 69 21 116/60 93 Ventilator 35% 08/23 1418 35 08/23 1200 97 Ventilator 35% 08/23 1200 98.7 70 20 100/60 96 Ventilator 35% Intake & Output 08/24 1600 08/24 0800 08/24 0000 08/23 1600 08/23 0800 08/23 0000 Intake Total 915 078 507 3985 1000 Output Total 450 380 680 350 470 Balance 465 572 69 767 530 Intake, IV 915 852 361 461 645 Intake, Oral 0 Intake, Tube 0 0 253 576 205 Feeding Intake, Tube 0 100 135 80 150 Irrigant Number 25 0 25 75 Bowel Movements Output, 100 80 130 0 170 Drainage Output, 0 0 0 Gastric Drainage Output, Stool 200 Output, Urine 350 300 350 350 300 Physical Exam: Well-developed, morbidly obese male in no acute distress. Vital signs: See above. Neck: No JVD, no bruits. Lungs: Clear to auscultation anteriorly. Heart: S1, S2 (regular) with grade 1-2/6 systolic murmur. Abdomen: Soft, distended, nontender, positive bowel sounds. Abdominal catheters main in place. Incision with no erythema and minimal exudate from the inferior aspect. Extremities: Mild upper extremity and no lower extremity edema. Current Medications: Current Medications Sig/Buck Start time Last Medication Dose Route Stop Time Status Admin Acetaminophen 1,000 MG Q6P PRN 07/16 0530 AC 07/20 N/A 1 UNIT IV 0659 Albuterol Sulfate 3 ML EVERY 4 HRS/AWAKE 07/27 0800 AC 08/24 INH 1144 Alteplase, 2 MG ONE ONE 08/24 0515 DC Recombinant IV 08/24 0516 Aspirin 81 MG DAILY 08/16 2345 AC 08/24 PO 0912 Atorvastatin Calcium 40 MG 1700 08/16 1700 AC 08/21 PO 1730 Budesonide/ 2 PUF BID 07/26 1056 AC 08/24 Formoterol Fumarate INH 0816 Carvedilol 3.125 MG BID 07/28 1000 AC 08/24 PO 0912 Ciprofloxacin 400 MG Q12H 08/11 0500 AC 08/24 Dextrose/Water 200 ML IV 0544 Dextrose/Sodium 1,000 ML Q20H 08/23 2030 AC 08/23 Chloride IV 2109 Fentanyl Citrate 100 MCG .STK-MED ONE 08/23 1742 DC IM 08/23 1743 Fentanyl Citrate 100 MCG .STK-MED ONE 08/23 1424 DC IM 08/23 1425 Fentanyl Citrate 25 MCG Q4P PRN 08/05 2130 AC 08/23 IV 1427 Glycerin 2 SPRAY Q2P PRN 08/10 0445 AC 08/19 PO 2150 Heparin Sodium 5,000 UNIT Q8 08/05 1400 AC 08/24 (Porcine) SC 0544 Insulin Aspart 0 Q4 07/25 1000 AC 08/23 SC 0534 Insulin Detemir 14 UNITS BID 08/24 2200 AC SC Insulin Detemir 8 UNITS ONCE ONE 08/23 220 DC 08/23 SC 08/23 2201 2158 Insulin Detemir 17 UNITS BID 08/13 2200 DC 08/22 SC 2257 Metronidazole 500 MG IQ8 08/16 1600 AC 08/24 N/A 1 UNIT IV 0806 Octreotide Acetate 500 MCG Q20H 07/15 1400 AC 08/23 Dextrose/Water 500 ML IV 1135 Pantoprazole Sodium 40 MG BID 07/10 1016 AC 08/24 IV 0912 Potassium Chloride 20 MEQ BID 08/10 2200 AC 08/23 PO 2111 Results Last 48 Hrs of Labs/Mics: Laboratory Tests 08/24/17 0415: Anion Gap 5, Estimated GFR > 60, Glucose 99, Calcium 8.0 L, Phosphorus 4.7 H, Magnesium 1.9, Total Bilirubin 0.5, AST 50, ALT 64, Albumin 2.1 L, CBC w Diff MAN DIFF ORDERED, RBC 3.32 L, MCV 94.7 H, MCH 30.0, RDW 23.5 H, MPV 8.8, Gran % 59.0, Lymphocytes % 33.0, Monocytes % 6.9, Eosinophils % 0.6, Basophils % 0.5, Absolute Granulocytes 6.3, Segmented Neutrophils 75, Band Neutrophils 5, Absolute Lymphocytes 3.5 H, Lymphocytes 13 L, Monocytes 6, Absolute Monocytes 0.7 H, Absolute Eosinophils 0.1, Basophils 1, Absolute Basophils 0.1, Platelet Estimate ADEQUATE, Polychromasia 1+, Anisocytosis 1+, Stomatocytes 1+, Elliptocytes 1+, PUBS MCHC 31.7 L 08/23/17 0428: Anion Gap 7, Estimated GFR > 60, Glucose 144 H, Calcium 7.8 L, Phosphorus 3.4, Magnesium 1.9, Total Bilirubin 0.2, AST 51, ALT 61, Albumin 1.8 L, Cortisol AM Sample 15.8, CBC w Diff NO MAN DIFF REQ, RBC 3.09 L, MCV 94.0, MCH 30.2, RDW 23.9 H, MPV 8.8, Gran % 58.6, Lymphocytes % 32.0, Monocytes % 8.1, Eosinophils % 0.7, Basophils % 0.6, Absolute Granulocytes 5.8, Absolute Lymphocytes 3.2, Absolute Monocytes 0.8 H, Absolute Eosinophils 0.1, Absolute Basophils 0.1, PUBS MCHC 32.1 L 08/22/17 191: Stone Analysis Pending, Stone Source Pending, Stone Nidus Pending, Stone Comment Pending, Stone Comment Pending Assessment/Plan Assessment/Plan [id number] w/ hx of morbid obesity, LIAM on CPAP, COPD, HTN, HLD, DM, CAD/ICM (s/ p IMI in 1998, CABG 4 w/ WHITE to LAD and individual SVGs to Dx, OM, PDA & MAZE) , and recurrent PAF who presented in an unkempt state via ambulance w/ UTI & subsequently had a perforation of a duodenal ulcer for which he underwent surgery (Fabrizio patch) on 07/09/2017 with worsening clinical status requiring return to the OR on 07/16/2017 for exploratory laparotomy and suture repair duodenal ulcer with Fabrizio patch. Status post drainage of a left abdominal abscess on 08/08/2017 w/ pus aspiration & catheter in place. Hemodynamically stable with properly functioning electronic pacemaker nearing end-of-life (EOL), but without immediate concern for pacemaker failure. No new cardiac issues. Continued output from WILLEM drains and persistent purulent drainage from his incision, that is felt by surgery to represent necrotic fascia. He has been deemed a nonsurgical candidate for this issue. Tracheostomy performed 08/23/2017 and functioning properly. Drains again functioning properly. Recommendations: * If further significant ventricular tachycardia can place on amiodarone. * Pacemaker functioning properly and should for months, even though near EOL. * Replete potassium and aim to maintain between 4.0-4.5 mEq per liter. * Replete magnesium and aim to maintain at or above 2.0 mEq per liter. * Continue to follow-up on infectious disease, critical care, endocrine, renal and surgical recommendations. * Continue DVT prophylaxis. Continue telemetry? Not applicable (In ICU.)
[2017-08-24 12:00] VITALS: BP 98/52
[2017-08-24 16:00] VITALS: BP 104/60
[2017-08-24 23:00] VITALS: BP 106/60
[2017-08-25 05:39] LABS: ABSOLUTE BASOPHIL COUNT 0 /CUMM (0.0-0.2); ABSOLUTE EOSINOPHIL COUNT 0.1 /CUMM (0.0-0.7); ABSOLUTE GRANULOCYTE CT 5.7 /CUMM (1.4-6.5); ABSOLUTE LYMPH COUNT 2.6 /CUMM (1.2-3.4); ABSOLUTE MONOCYTE COUNT 0.5 /CUMM (0.10-0.60); BASOPHIL % 0.3 % (0.0-2.0); EOSINOPHIL % 1.2 % (0-5); GRANULOCYTE % 63.9 % (42.2-75.2); HEMATOCRIT 28.5 % (42-52); MEAN CORPUSCULAR HGB 30.1 PG (27.0-31.0); MEAN CORPUSCULAR HGB CONC 31.8 G/DL (33.0-37.0); MEAN CORPUSCULAR VOLUME 94.7 FL (80.0-94.0); MEAN PLATELET VOLUME 9.2 FL (7.4-10.4); PLATELET COUNT 194 /CUMM (130-400); RBC DISTRIBUTION WIDTH 23.3 % (11.5-14.5); RED BLOOD CELL CT 3.01 /CUMM (4.70-6.10)
--- NOTE | 2017-08-25 07:09 | PN- Resident CRCU ---
Subjective HPI/CRCU Issues: Mr Walls was seen and examined this morning. He is resting comfortably in bed. Patient has been stable overnight and is unable to offer any complaints. He appears lethargic and is unable to answer questions appropriately. He is able to open and close his eye spontaneously. 24 Hour Events: Patient underwent insertion of a Tracheostomy tube 08/23/2017 T: 98.4 HR:68-80 . RR: 12-23. BP:91/49-107/53 Total Intake:2824 Output:1485 Objective Vital Signs & I&O Last 8 Hrs of Vitals and I&O: T: 98.4 HR:68-80 . RR: 12-23. BP:91/49-107/53 Total Intake:2824 Output:1485 Exam General Appearance: well developed/nourished, lethargic, On a ventilator with Trach in place. Head: atraumatic Respiratory: normal breath sounds Cardiovascular: regular rate/rhythm Gastrointestinal: normal bowel sounds, soft, non-tender, Two abdominal Catheter in place. Located on the right. Extremities: normal inspection, normal capillary refill, normal range of motion Skin: intact, normal color Weaning Parameters NIF: 26 Minute Volume: 6.19 Resp rate: 30 Vt: 205 Heart Rate: 68 Weaning Schedule Start Time: 1915 Minute Volume: 12.4 Resp Rate: 23 Vt: 530 Heart Rate: 71 End Time: 2100 Minute Volume: 8.05 Resp Rate: 18 Vt: 445 Heart Rate: 70 Current Medications: Current Medications Sig/Buck Start time Last Medication Dose Route Stop Time Status Admin Acetaminophen 1,000 MG Q6P PRN 07/16 0530 AC 07/20 N/A 1 UNIT IV 0659 Albuterol Sulfate 3 ML EVERY 4 HRS/AWAKE 07/27 0800 AC 08/26 INH 1157 Aspirin 81 MG DAILY 08/16 2345 AC 08/26 PO 1025 Atorvastatin Calcium 40 MG 1700 08/16 1700 AC 08/25 PO 1616 Budesonide/ 2 PUF BID 07/26 1056 AC 08/26 Formoterol Fumarate INH 0811 Carvedilol 3.125 MG BID 07/28 1000 AC 08/26 PO 1025 Fentanyl Citrate 25 MCG Q4P PRN 08/05 2130 AC 08/25 IV 1117 Glycerin 2 SPRAY Q2P PRN 08/10 0445 AC 08/19 PO 2150 Heparin Sodium 5,000 UNIT Q8 08/05 1400 AC 08/26 (Porcine) SC 1415 Insulin Aspart 0 Q4 07/25 1000 08/26 SC 1415 Insulin Detemir 16 UNITS BID 08/25 1000 08/26 SC 1026 Lidocaine 1 GENE BID PRN 08/25 0845 08/25 TOP 1029 Octreotide Acetate 100 MCG TID 08/25 1226 AC 08/26 SC 1024 Pantoprazole Sodium 40 MG BID 07/10 1016 08/26 IV 1024 Impression/Plan Impression/Problem List Impression: This is a 76-year-old male with past medical history of CAD with HFrEF, A. fib, AICD, previous infection of the hip with prolonged antibiotic, history of peptic ulcer disease, diabetes, nephrolithiasis who was transferred to the ICU for perforation of the duodenum with septic shock S/P repair with patch. Repeated CT of the abdomen performed on 07/15 revealed free air/extravasation of contrast into the peritoneal cavity and he was taken to the OR for ex-lap and had re- repair of duodenal ulcer with Fabrizio patch. He remained intubated with subsequent wean trials and extubated on 07/23/2017, unfortunately he was re- intubated on 07/26/2017 due to desaturations and respiratory failure. On 08/23 patient had a trach placed. PLAN #Septic shock secondary to perforated duodenal ulcer A/P Fabrizio patch: He had a catscan yesterday which showed decreased collections. His ramon was removed (it had been in for >40 days) and replaced with a new one. New Ramon Day 4. Micro is shoiwng the body cx with VRE and respiratory cx with VRE. Repeat sputum cx on 08/02 shows GPC and mold. A repeat swab of the draining wound on abdomen showed E. coli and Beta strep Group B. BCx negative to date. Negative aspergillus antibody. H.pylori negative. Aug 08 body cx growing enterobacter aerogenes. Respiratory cx on 08/08 enterobacter aerogenes and staph aureus. * D/C Meropenem 07/30 and D/C Cubicin Day 08/01. * As per ID recomendations will conitune follow the patient off antibiotics, Antibiotics discontinued on 08/24/2017. * Follow-up on pending repeat culture results * Continue on PRN fentanyl for sedation. * Continue Protonix IV 40 mg twice a day * Octreotide SC-->100 mcg TID * Surgery following * Trach placed 08/23, will continue trachcare as per instructions, PSV trials to continue. Will attempt mask trials . * Pt LLQ drain removed 08/23 History of PAF on Tikosyn * Continue to hold the Tikosyn * Appreciate cardiology recs * Con't Coreg 3.125 MG BID. * If further significant ventricular tachycardia can place on amiodarone. DM: * Goal glucose between 596007. * FSGs were: 189, 206, 233 * Appreciate endocrinology recommendation. * Con't FS * Con't RISS as per scale. Levemir was reduced to 16 units BID. USMAN: RESOLVED. Hyponatremia: RESOLVED. Guarded prognosis DNR Nothing by mouth DVT prophylaxis with subcutaneous heparin Problem List: 1. Peritonitis Pain Ratin Tomorrow's Labs & Rationales: CBC: monitor H/H ICU Bundle: monitor electrolytes in the settnig of acute illness. Plan DVT/Prophylaxis: mechanical, pharmacological
[2017-08-25 08:00] VITALS: BP 96/50
--- NOTE | 2017-08-25 08:08 | PN- Diabetes ---
Assessment/Plan Assessment: 76-year-old male with Hx of CAD with low ejection fraction, atrial fibrillation, AICD, previous infection of hip with prolonged antibiotic, history of peptic ulcer disease, diabetes and renal stone, was admitted for perforation of duodenum now with septic shock in ICU. He was on 3 pressors, TPN, octreotide drip and bicarb drip. His BP remained low and stress dose of steroid was initiated despite his am cortisol was 24.8. Patient is still on octreotide drip. Patient was re-intubated on 07/26/2017. Hydrocortisone was discontinued on 08/13/2017. Repeat am cortisol 15.8 on 2016. He was on tube feeding with Vital 85 mL per hour, Levemir 17 units twice a day and Novolog coverage every 4 hours . Patient underwent tracheostomy on 08/23/2017 . He was restarted on tube feeding at 85 ml/hour. He was put on Levemir 14 units twice a day, Novolog coverage every 4 hours ( FSG 80-150, 8 units; FSG 151-200, 10 units, etc). His FSGs were 190, 210, 289, 189 and 206. Plan: 1. increase Levemir to 16 units twice a day; 2. continue the current Novolog coverage every 4 hours; 3. monitor FSGs. will follow. Subjective Subjective: He is intubated. Objective Last 24 Hrs of Vital Signs/I&O Vital Signs Date Time Temp Pulse Resp B/P B/P Pulse O2 O2 Flow FiO2 Mean Ox Delivery Rate 08/25 0607 35 08/25 0400 95 Ventilator 35% 08/25 0356 35 08/25 0012 35 08/25 0000 92 Ventilator 35% 08/24 2300 97.9 69 23 106/60 92 Ventilator 35% 08/24 2232 69 17 107/53 08/24 2208 35 08/24 2000 95 Ventilator 35% 08/24 1910 35 08/24 1640 35 08/24 1600 98.5 70 17 104/60 97 Ventilator 35% 08/24 1600 97 Ventilator 35% 08/24 1400 35 08/24 1202 35 08/24 1200 98.1 80 16 98/52 99 Ventilator 35% 08/24 1200 98 Ventilator 35% 08/24 0912 69 106/57 Intake & Output 08/25 1600 08/25 0800 08/25 0000 Intake Total 976 1019 Output Total 400 660 Balance 576 359 Intake, IV 185 203 Intake, Tube 726 736 Feeding Intake, Tube 65 80 Irrigant Output, 0 155 Drainage Output, Stool 75 25 Output, Urine 325 480 Findings Pertinent Lab/Les Results: Laboratory Tests 08/25 0443 Chemistry Sodium (137 - 145 mmol/L) 143 Potassium (3.5 - 5.1 mmol/L) 3.6 Chloride (98 - 107 mmol/L) 112 H Carbon Dioxide (22 - 30 mmol/L) 22 Anion Gap (5 - 16) 9 BUN (9 - 20 mg/dL) 27 H Creatinine (0.7 - 1.2 mg/dL) 0.6 L Estimated GFR (>60 ml/min) > 60 Glucose (65 - 99 mg/dL) 188 H Calcium (8.4 - 10.2 mg/dL) 7.7 L Phosphorus (2.5 - 4.5 mg/dL) 3.7 Magnesium (1.6 - 2.3 mg/dL) 1.8 Total Bilirubin (0.2 - 1.3 mg/dL) 0.3 AST (17 - 59 U/L) 26 ALT (21 - 72 U/L) 47 Albumin (3.5 - 5.0 g/dL) 1.8 L Hematology CBC w Diff NO MAN DIFF REQ WBC (4.8 - 10.8 /CUMM) 9.0 RBC (4.70 - 6.10 /CUMM) 3.01 L Hgb (14.0 - 18.0 G/DL) 9.1 L Hct (42 - 52 %) 28.5 L MCV (80.0 - 94.0 FL) 94.7 H MCH (27.0 - 31.0 PG) 30.1 RDW (11.5 - 14.5 %) 23.3 H Plt Count (130 - 400 /CUMM) 194 MPV (7.4 - 10.4 FL) 9.2 Gran % (42.2 - 75.2 %) 63.9 Lymphocytes % (20.5 - 51.1 %) 28.5 Monocytes % (1.7 - 9.3 %) 6.1 Eosinophils % (0 - 5 %) 1.2 Basophils % (0.0 - 2.0 %) 0.3 Absolute Granulocytes (1.4 - 6.5 /CUMM) 5.7 Absolute Lymphocytes (1.2 - 3.4 /CUMM) 2.6 Absolute Monocytes (0.10 - 0.60 /CUMM) 0.5 Absolute Eosinophils (0.0 - 0.7 /CUMM) 0.1 Absolute Basophils (0.0 - 0.2 /CUMM) 0 PUBS MCHC (33.0 - 37.0 G/DL) 31.8 L
--- NOTE | 2017-08-25 08:44 | PN- CRCU ---
Subjective HPI/Critical Care Issues: Doing about the same afebrile Objective Current Medications: Current Medications Sig/Buck Start time Last Medication Dose Route Stop Time Status Admin Acetaminophen 1,000 MG Q6P PRN 07/16 0530 AC 07/20 N/A 1 UNIT IV 0659 Albuterol Sulfate 3 ML EVERY 4 HRS/AWAKE 07/27 0800 AC 08/25 INH 0814 Aspirin 81 MG DAILY 08/16 2345 AC 08/24 PO 0912 Atorvastatin Calcium 40 MG 1700 08/16 1700 AC 08/24 PO 1605 Budesonide/ 2 PUF BID 07/26 1056 AC 08/25 Formoterol Fumarate INH 0815 Carvedilol 3.125 MG BID 07/28 1000 AC 08/24 PO 2232 Ciprofloxacin 400 MG Q12H 08/11 0500 DC 08/24 Dextrose/Water 200 ML IV 0544 Dextrose/Sodium 1,000 ML Q20H 08/23 2030 DC 08/23 Chloride IV 2109 Fentanyl Citrate 100 MCG .STK-MED ONE 08/24 1805 DC IM 08/24 1806 Fentanyl Citrate 100 MCG .STK-MED ONE 08/24 1212 DC IM 08/24 1213 Fentanyl Citrate 25 MCG Q4P PRN 08/05 2130 AC 08/24 IV 1807 Glycerin 2 SPRAY Q2P PRN 08/10 0445 AC 08/19 PO 2150 Heparin Sodium 5,000 UNIT Q8 08/05 1400 AC 08/25 (Porcine) SC 0641 Insulin Aspart 0 Q4 07/25 1000 AC 08/25 SC 0640 Insulin Detemir 16 UNITS BID 08/25 1000 AC SC Insulin Detemir 14 UNITS BID 08/24 2200 DC 08/24 SC 2234 Insulin Detemir 17 UNITS BID 08/13 2200 DC 08/22 SC 2257 Magnesium Oxide 400 MG ONE ONE 08/24 1245 DC 08/24 PO 08/24 1246 1321 Magnesium Sulfate 1 GM Q2H 08/25 0800 AC Dextrose/Water 100 ML IV 08/25 0959 Metronidazole 500 MG IQ8 08/16 1600 DC 08/24 N/A 1 UNIT IV 0806 Octreotide Acetate 500 MCG Q20H 07/15 1400 AC 08/24 Dextrose/Water 500 ML IV 1321 Pantoprazole Sodium 40 MG BID 07/10 1016 AC 08/24 IV 2237 Potassium Chloride 20 MEQ Q1H 08/25 0800 AC IV 08/25 0901 Potassium Chloride 20 MEQ BID 08/10 2200 DC 08/23 PO 2111 Vital Signs & I&O Last 24 Hrs of Vitals and I&O: Vital Signs Date Time Temp Pulse Resp B/P B/P Pulse O2 O2 Flow FiO2 Mean Ox Delivery Rate 08/25 0824 35 08/25 0607 35 08/25 0400 95 Ventilator 35% 08/25 0356 35 08/25 0012 35 08/25 0000 92 Ventilator 35% 08/24 2300 97.9 69 23 106/60 92 Ventilator 35% 08/24 2232 69 17 107/53 08/24 2208 35 08/24 2000 95 Ventilator 35% 08/24 1910 35 08/24 1640 35 08/24 1600 98.5 70 17 104/60 97 Ventilator 35% 08/24 1600 97 Ventilator 35% 08/24 1400 35 08/24 1202 35 08/24 1200 98.1 80 16 98/52 99 Ventilator 35% 08/24 1200 98 Ventilator 35% 08/24 0912 69 106/57 Intake & Output 08/25 1600 08/25 0800 08/25 0000 Intake Total 976 1019 Output Total 400 660 Balance 576 359 Intake, IV 185 203 Intake, Tube 726 736 Feeding Intake, Tube 65 80 Irrigant Output, 0 155 Drainage Output, Stool 75 25 Output, Urine 325 480 Laboratory Tests 08/25 08/24 0443 0415 Chemistry Sodium (137 - 145 mmol/L) 143 142 Potassium (3.5 - 5.1 mmol/L) 3.6 5.0 Chloride (98 - 107 mmol/L) 112 H 116 H Carbon Dioxide (22 - 30 mmol/L) 22 21 L Anion Gap (5 - 16) 9 5 BUN (9 - 20 mg/dL) 27 H 29 H Creatinine (0.7 - 1.2 mg/dL) 0.6 L 0.7 Estimated GFR (>60 ml/min) > 60 > 60 Glucose (65 - 99 mg/dL) 188 H 99 Calcium (8.4 - 10.2 mg/dL) 7.7 L 8.0 L Phosphorus (2.5 - 4.5 mg/dL) 3.7 4.7 H Magnesium (1.6 - 2.3 mg/dL) 1.8 1.9 Total Bilirubin (0.2 - 1.3 mg/dL) 0.3 0.5 AST (17 - 59 U/L) 26 50 ALT (21 - 72 U/L) 47 64 Albumin (3.5 - 5.0 g/dL) 1.8 L 2.1 L Hematology CBC w Diff NO MAN DIFF REQ MAN DIFF ORDERED WBC (4.8 - 10.8 /CUMM) 9.0 10.7 RBC (4.70 - 6.10 /CUMM) 3.01 L 3.32 L Hgb (14.0 - 18.0 G/DL) 9.1 L 10.0 L Hct (42 - 52 %) 28.5 L 31.4 L MCV (80.0 - 94.0 FL) 94.7 H 94.7 H MCH (27.0 - 31.0 PG) 30.1 30.0 RDW (11.5 - 14.5 %) 23.3 H 23.5 H Plt Count (130 - 400 /CUMM) 194 209 MPV (7.4 - 10.4 FL) 9.2 8.8 Gran % (42.2 - 75.2 %) 63.9 59.0 Lymphocytes % (20.5 - 51.1 %) 28.5 33.0 Monocytes % (1.7 - 9.3 %) 6.1 6.9 Eosinophils % (0 - 5 %) 1.2 0.6 Basophils % (0.0 - 2.0 %) 0.3 0.5 Absolute Granulocytes (1.4 - 6.5 /CUMM) 5.7 6.3 Segmented Neutrophils (42.2 - 75.2 %) 75 Band Neutrophils (0.0 - 5.0 %) 5 Absolute Lymphocytes (1.2 - 3.4 /CUMM) 2.6 3.5 H Lymphocytes (20.5 - 51.1 %) 13 L Monocytes (1.7 - 9.3 %) 6 Absolute Monocytes (0.10 - 0.60 /CUMM) 0.5 0.7 H Absolute Eosinophils (0.0 - 0.7 /CUMM) 0.1 0.1 Basophils (0.0 - 2.0 %) 1 Absolute Basophils (0.0 - 0.2 /CUMM) 0 0.1 Platelet Estimate (ADEQUATE) ADEQUATE Polychromasia 1+ Anisocytosis 1+ Stomatocytes 1+ Elliptocytes 1+ PUBS MCHC (33.0 - 37.0 G/DL) 31.8 L 31.7 L Impression/Plan Impression/Plan Impression/Plan: Afebrile. s/p trach bovona 8 Skin reveals no rash. HEENT negative. Neck supple with no adenopathy; Picc line in place Lungs decreased breath sounds bilaterally. Heart regular rhythm with no murmur. Abdomen is obese, distended, tender to palpation, Incision noted with a gabriela drain in the rt side, feeding tube on the left side Extremities superficial ulcerations over the anterior tibial aspects of both legs, with 1+ edema bilaterally. Neuro is without focality. 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 with prolonged antibiotic, previous history of peptic ulcer disease, diabetes, sinus rhythm upon admission was on Tikosyn, hyperlipidemia, apparently has never smoked before, previous history of lithotripsy, CABG, previous hip prosthesis infection status post removal of prosthesis in early 2016 now has the following issues * S/p Perf large DU ulcer s/p surg with unsuccessful du repair with peritonitis, persistant leak / now has sig gabriela drainage with ng suction and somatostatin / Patient now has significant fluid collection in the right paracolic gutter reinsertion of pig tail with prob has necrotizing fascitis of the abd wall mild * S/p Severe shock septic on multiple pressors now off pressors, with ongoing intraabd sepsis and prob atx and pna * Hypoxic respiratory failureSputum does have enterobacter and staph / s/p trach 08/23 * Sig drainage from the gabriela biliary leak and fluid collection which is ongoing/ with fluid collection which is pyogenic * Significant ischemic heart disease with low ejection fraction high risk for fluid overload. Previous pafib in sinus now with a pacer and AICD. 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 * H/O LIAM was on cpap * On stress dose steroids now being weaned off * On and off diarrhea * CT reviewed pt has a stroke and sig sinusitis * s/p trach RECOMMENDATION * COnt current care and off antibiotics per ID * Intravenous pantoprazole * Heparin subcutaneous * Trach care as per protocol / Can cont psv trials and trach mask trials if katarina DNR Pt critically ill
--- NOTE | 2017-08-25 11:29 | PN- Infect Dx ---
Subjective Subjective: Afebrile without complaints. Objective Last 24 Hrs of Vital Signs/I&O Vital Signs Date Time Temp Pulse Resp B/P B/P Pulse O2 O2 Flow FiO2 Mean Ox Delivery Rate 08/25 0954 104/51 08/25 0824 35 08/25 0800 98.1 69 13 96/50 100 Ventilator 35% 08/25 0800 100 Ventilator 35% 08/25 0607 35 08/25 0400 95 Ventilator 35% 08/25 0356 35 08/25 0012 35 08/25 0000 92 Ventilator 35% 08/24 2300 97.9 69 23 106/60 92 Ventilator 35% 08/24 2232 69 17 107/53 08/24 2208 35 08/24 2000 95 Ventilator 35% 08/24 1910 35 08/24 1640 35 08/24 1600 98.5 70 17 104/60 97 Ventilator 35% 08/24 1600 97 Ventilator 35% 08/24 1400 35 08/24 1202 35 08/24 1200 98.1 80 16 98/52 99 Ventilator 35% 08/24 1200 98 Ventilator 35% Intake & Output 08/25 1600 08/25 0800 08/25 0000 Intake Total 976 1019 Output Total 400 660 Balance 576 359 Intake, IV 185 203 Intake, Tube 726 736 Feeding Intake, Tube 65 80 Irrigant Output, 0 155 Drainage Output, Stool 75 25 Output, Urine 325 480 Physical Exam Other Physical Findings: He is lethargic but responsive on the ventilator in no acute distress Lungs are clear Heart regular rhythm with no murmur Abdomen is distended, nontender with positive bowel sounds; [address] on the right, with 280 mL output from drain #1 (the medial drain) but with minimal output from drain #2 (the lateral drain); rectal tube remains in place Extremities no cyanosis, clubbing or edema; PICC in the right upper extremity with no inflammation at the site Duvall catheter remains in place Results Last 24 Hours of Lab Results: Laboratory Tests 08/25 0443 Chemistry Sodium (137 - 145 mmol/L) 143 Potassium (3.5 - 5.1 mmol/L) 3.6 Chloride (98 - 107 mmol/L) 112 H Carbon Dioxide (22 - 30 mmol/L) 22 Anion Gap (5 - 16) 9 BUN (9 - 20 mg/dL) 27 H Creatinine (0.7 - 1.2 mg/dL) 0.6 L Estimated GFR (>60 ml/min) > 60 Glucose (65 - 99 mg/dL) 188 H Calcium (8.4 - 10.2 mg/dL) 7.7 L Phosphorus (2.5 - 4.5 mg/dL) 3.7 Magnesium (1.6 - 2.3 mg/dL) 1.8 Total Bilirubin (0.2 - 1.3 mg/dL) 0.3 AST (17 - 59 U/L) 26 ALT (21 - 72 U/L) 47 Albumin (3.5 - 5.0 g/dL) 1.8 L Hematology CBC w Diff NO MAN DIFF REQ WBC (4.8 - 10.8 /CUMM) 9.0 RBC (4.70 - 6.10 /CUMM) 3.01 L Hgb (14.0 - 18.0 G/DL) 9.1 L Hct (42 - 52 %) 28.5 L MCV (80.0 - 94.0 FL) 94.7 H MCH (27.0 - 31.0 PG) 30.1 RDW (11.5 - 14.5 %) 23.3 H Plt Count (130 - 400 /CUMM) 194 MPV (7.4 - 10.4 FL) 9.2 Gran % (42.2 - 75.2 %) 63.9 Lymphocytes % (20.5 - 51.1 %) 28.5 Monocytes % (1.7 - 9.3 %) 6.1 Eosinophils % (0 - 5 %) 1.2 Basophils % (0.0 - 2.0 %) 0.3 Absolute Granulocytes (1.4 - 6.5 /CUMM) 5.7 Absolute Lymphocytes (1.2 - 3.4 /CUMM) 2.6 Absolute Monocytes (0.10 - 0.60 /CUMM) 0.5 Absolute Eosinophils (0.0 - 0.7 /CUMM) 0.1 Absolute Basophils (0.0 - 0.2 /CUMM) 0 PUBS MCHC (33.0 - 37.0 G/DL) 31.8 L Last 24 Hours of Les Results: No new cultures Assessment/Plan Impression: Stable status post tracheostomy 2 days ago, with temperatures and white blood cell count remaining normal, now off antibiotics, now 10 days status post drainage of 2 right sided collections, 40 days status post unsuccessful duodenal repair and 47 days status post his initial surgery for a perforated duodenal ulcer. Suggestion: 1. Remove Duvall catheter 2. Continue to follow off antibiotics
[2017-08-25 12:00] VITALS: BP 110/60
--- NOTE | 2017-08-25 12:28 | PN- General Surgery ---
Surgical Brief Attending Note Brief Attending Note: no major changes. increased drain output after unplugging. need continued refeeding of enteric contents. will stop octeotide gtt and begin subcutaneous injection.
[2017-08-25 16:00] VITALS: BP 108/60
--- NOTE | 2017-08-25 18:29 | PN- Cardiology ---
Subjective Subjective: Remains on ventilator status post tracheostomy 08/23/2017. Awakens to name, but not responding to questioning otherwise. Objective Vital Signs and I&Os Vital Signs Date Time Temp Pulse Resp B/P B/P Pulse O2 O2 Flow FiO2 Mean Ox Delivery Rate 08/25 1640 35 08/25 1600 98.3 75 16 108/60 99 Ventilator 35% 08/25 1600 99 Ventilator 35% 08/25 1359 35 08/25 1212 35 08/25 1200 97.6 69 30 110/60 100 Ventilator 35% 08/25 1200 100 Ventilator 35% 08/25 0954 104/51 08/25 0824 35 08/25 0800 98.1 69 13 96/50 100 Ventilator 35% 08/25 0800 100 Ventilator 35% 08/25 0607 35 08/25 0400 95 Ventilator 35% 08/25 0356 35 08/25 0012 35 08/25 0000 92 Ventilator 35% 08/24 2300 97.9 69 23 106/60 92 Ventilator 35% 08/24 2232 69 17 107/53 08/24 2208 35 08/24 2000 95 Ventilator 35% 08/24 1910 35 Intake & Output 08/25 1600 08/25 0800 08/25 0000 08/24 1600 08/24 0800 08/24 0000 Intake Total 8526 391 8565 839 915 952 Output Total 1085 400 660 425 450 380 Balance 201 576 359 414 465 572 Intake, IV 526 185 203 555 915 852 Intake, Oral 0 Intake, Tube 660 726 736 204 0 0 Feeding Intake, Tube 100 65 80 80 0 100 Irrigant Number 25 0 Bowel Movements Output, 135 0 155 50 100 80 Drainage Output, Other 125 Output, Stool 400 75 25 25 Output, Urine 425 325 480 350 350 300 Physical Exam: Well-developed, morbidly obese male in no acute distress. Vital signs: See above. Neck: No JVD, no bruits. Lungs: Clear to auscultation anteriorly. Heart: S1, S2 (regular) with grade 1-2/6 systolic murmur. Abdomen: Soft, distended, nontender, positive bowel sounds. Abdominal catheters main in place. Incision with no erythema and minimal exudate from the inferior aspect. Extremities: Mild upper extremity and no lower extremity edema. Current Medications: Current Medications Sig/Buck Start time Last Medication Dose Route Stop Time Status Admin Acetaminophen 1,000 MG Q6P PRN 07/16 0530 AC 07/20 N/A 1 UNIT IV 0659 Albuterol Sulfate 3 ML EVERY 4 HRS/AWAKE 07/27 0800 AC 08/25 INH 1651 Aspirin 81 MG DAILY 08/16 2345 AC 08/25 PO 0953 Atorvastatin Calcium 40 MG 1700 08/16 1700 AC 08/25 PO 1616 Budesonide/ 2 PUF BID 07/26 1056 AC 08/25 Formoterol Fumarate INH 0815 Carvedilol 3.125 MG BID 07/28 1000 AC 08/25 PO 0954 Fentanyl Citrate 25 MCG Q4P PRN 08/05 2130 AC 08/25 IV 1117 Glycerin 2 SPRAY Q2P PRN 08/10 0445 AC 08/19 PO 2150 Heparin Sodium 5,000 UNIT Q8 08/05 1400 AC 08/25 (Porcine) SC 1421 Insulin Aspart 0 Q4 07/25 1000 08/25 SC 1748 Insulin Detemir 16 UNITS BID 08/25 1000 08/25 SC 0954 Insulin Detemir 14 UNITS BID 08/24 2200 OH 08/24 AR 2234 Lidocaine 1 GENE BID PRN 08/25 0845 08/25 TOP 1029 Magnesium Sulfate 1 GM Q2H 08/25 0800 DC 08/25 Dextrose/Water 100 ML IV 08/25 0959 1205 Octreotide Acetate 100 MCG TID 08/25 1226 08/25 SC 1616 Octreotide Acetate 500 MCG Q20H 07/15 1400 DC 08/25 Dextrose/Water 500 ML IV 1029 Pantoprazole Sodium 40 MG BID 07/10 1016 08/25 IV 0953 Potassium Chloride 20 MEQ Q1H 08/25 0800 DC 08/25 IV 08/25 0901 1058 Results Last 48 Hrs of Labs/Mics: Laboratory Tests 08/25/17 0443: Anion Gap 9, Estimated GFR > 60, Glucose 188 H, Calcium 7.7 L, Phosphorus 3.7, Magnesium 1.8, Total Bilirubin 0.3, AST 26, ALT 47, Albumin 1.8 L, CBC w Diff NO MAN DIFF REQ, RBC 3.01 L, MCV 94.7 H, MCH 30.1, RDW 23.3 H, MPV 9.2, Gran % 63.9, Lymphocytes % 28.5, Monocytes % 6.1, Eosinophils % 1.2, Basophils % 0.3, Absolute Granulocytes 5.7, Absolute Lymphocytes 2.6, Absolute Monocytes 0.5, Absolute Eosinophils 0.1, Absolute Basophils 0, PUBS MCHC 31.8 L 08/24/17 0415: Anion Gap 5, Estimated GFR > 60, Glucose 99, Calcium 8.0 L, Phosphorus 4.7 H, Magnesium 1.9, Total Bilirubin 0.5, AST 50, ALT 64, Albumin 2.1 L, CBC w Diff MAN DIFF ORDERED, RBC 3.32 L, MCV 94.7 H, MCH 30.0, RDW 23.5 H, MPV 8.8, Gran % 59.0, Lymphocytes % 33.0, Monocytes % 6.9, Eosinophils % 0.6, Basophils % 0.5, Absolute Granulocytes 6.3, Segmented Neutrophils 75, Band Neutrophils 5, Absolute Lymphocytes 3.5 H, Lymphocytes 13 L, Monocytes 6, Absolute Monocytes 0.7 H, Absolute Eosinophils 0.1, Basophils 1, Absolute Basophils 0.1, Platelet Estimate ADEQUATE, Polychromasia 1+, Anisocytosis 1+, Stomatocytes 1+, Elliptocytes 1+, PUBS MCHC 31.7 L Assessment/Plan Assessment/Plan 76-y-o-w-m w/ hx of morbid obesity, LIAM on CPAP, COPD, HTN, HLD, DM, CAD/ICM (s/ p IMI in 1998, CABG 4 w/ WHITE to LAD and individual SVGs to Dx, OM, PDA & MAZE) , and recurrent PAF who presented in an unkempt state via ambulance w/ UTI & subsequently had a perforation of a duodenal ulcer for which he underwent surgery (Fabrizio patch) on 07/09/2017 with worsening clinical status requiring return to the OR on 07/16/2017 for exploratory laparotomy and suture repair duodenal ulcer with Fabrizio patch. Status post drainage of a left abdominal abscess on 08/08/2017 w/ pus aspiration & catheter in place. Hemodynamically stable with properly functioning electronic pacemaker nearing end-of-life (EOL), but without immediate concern for pacemaker failure. No new cardiac issues. Continued output from WILLEM drains and persistent purulent drainage from his incision, that is felt by surgery to represent necrotic fascia. He has been deemed a nonsurgical candidate for this issue. Tracheostomy performed 08/23/2017 and functioning properly. Drains again functioning properly. Recommendations: * If further significant ventricular tachycardia can place on amiodarone. * Pacemaker functioning properly and should for months, even though near EOL. * Replete potassium and aim to maintain between 4.0-4.5 mEq per liter. * Replete magnesium and aim to maintain at or above 2.0 mEq per liter. * Continue to follow-up on infectious disease, critical care, endocrine, renal and surgical recommendations. * Continue DVT prophylaxis. Continue telemetry? Not applicable (In ICU.)
[2017-08-25 23:00] VITALS: BP 100/60
[2017-08-26 05:03] LABS: ABSOLUTE BASOPHIL COUNT 0 /CUMM (0.0-0.2); ABSOLUTE EOSINOPHIL COUNT 0.2 /CUMM (0.0-0.7); ABSOLUTE GRANULOCYTE CT 5.1 /CUMM (1.4-6.5); ABSOLUTE LYMPH COUNT 2.5 /CUMM (1.2-3.4); ABSOLUTE MONOCYTE COUNT 0.6 /CUMM (0.10-0.60); BASOPHIL % 0.5 % (0.0-2.0); GRANULOCYTE % 60.6 % (42.2-75.2); HEMATOCRIT 28.7 % (42-52); MEAN CORPUSCULAR HGB 30.6 PG (27.0-31.0); MEAN CORPUSCULAR HGB CONC 31.9 G/DL (33.0-37.0); MEAN CORPUSCULAR VOLUME 95.8 FL (80.0-94.0); MEAN PLATELET VOLUME 8.9 FL (7.4-10.4); PLATELET COUNT 184 /CUMM (130-400); RBC DISTRIBUTION WIDTH 22.8 % (11.5-14.5); RED BLOOD CELL CT 2.99 /CUMM (4.70-6.10); WHITE BLOOD CELL COUNT 8.4 /CUMM (4.8-10.8)
--- NOTE | 2017-08-26 07:05 | PN- Resident CRCU ---
Subjective HPI/CRCU Issues: Mr Walls was seen and examined this morning. He is resting comforably in bed. Does not have any complaints. Appears a little more responsive compared to our previous interaction. 24 Hour Events: No Events Reported Overnight. T: 97.7. HR: 69-74. Resp: 13-30. BP: 92/55-111/56. AC/10/500/350/5. Intake: 2917. Output: 2535 Objective Vital Signs & I&O Last 8 Hrs of Vitals and I&O: T: 98.4 HR:68-80 . RR: 12-23. BP:91/49-107/53 Total Intake:2824 Output:1485 Exam General Appearance: well developed/nourished, comfortable Neck: normal inspection Respiratory: normal breath sounds, mild Crackles Noted Cardiovascular: regular rate/rhythm Gastrointestinal: normal bowel sounds, soft, non-tender, Two abdominal catheters in place. Draining well. Extremities: normal inspection, normal capillary refill, no edema Skin: intact Skin Temp/Moisture Exam: Warm/Dry Sepsis Skin Exam (color): Normal for Ethnicity Weaning Parameters NIF: 26 Minute Volume: 6.19 Resp rate: 30 Vt: 205 Heart Rate: 69 Weaning Schedule Start Time: 1032 Minute Volume: 9.99 Resp Rate: 21 Vt: 500 Heart Rate: 75 End Time: 1210 Minute Volume: 11.0 Resp Rate: 20 Vt: 503 Heart Rate: 74 Current Medications: Current Medications Sig/Buck Start time Last Medication Dose Route Stop Time Status Admin Acetaminophen 1,000 MG Q6P PRN 07/16 0530 AC 07/20 N/A 1 UNIT IV 0659 Albuterol Sulfate 3 ML EVERY 4 HRS/AWAKE 07/27 0800 AC 08/26 INH 0810 Aspirin 81 MG DAILY 08/16 2345 AC 08/26 PO 1025 Atorvastatin Calcium 40 MG 1700 08/16 1700 AC 08/25 PO 1616 Budesonide/ 2 PUF BID 07/26 1056 AC 08/26 Formoterol Fumarate INH 0811 Carvedilol 3.125 MG BID 07/28 1000 AC 08/26 PO 1025 Fentanyl Citrate 100 MCG .STK-MED ONE 08/25 1114 DC IM 08/25 1115 Fentanyl Citrate 25 MCG Q4P PRN 08/05 2130 AC 08/25 IV 1117 Glycerin 2 SPRAY Q2P PRN 08/10 0445 AC 08/19 PO 2150 Heparin Sodium 5,000 UNIT Q8 08/05 1400 AC 08/26 (Porcine) SC 0619 Insulin Aspart 0 Q4 07/25 1000 AC 08/26 SC 1026 Insulin Detemir 16 UNITS BID 08/25 1000 AC 08/26 SC 1026 Lidocaine 1 GENE BID PRN 08/25 0845 AC 08/25 TOP 1029 Octreotide Acetate 100 MCG TID 08/25 1226 AC 08/26 SC 1024 Octreotide Acetate 500 MCG Q20H 07/15 1400 DC 08/25 Dextrose/Water 500 ML IV 1029 Pantoprazole Sodium 40 MG BID 07/10 1016 AC 08/26 IV 1024 Impression/Plan Impression/Problem List Impression: This is a 76-year-old male with past medical history of CAD with HFrEF, A. fib, AICD, previous infection of the hip with prolonged antibiotic, history of peptic ulcer disease, diabetes, nephrolithiasis who was transferred to the ICU for perforation of the duodenum with septic shock S/P repair with patch. Repeated CT of the abdomen performed on 07/15 revealed free air/extravasation of contrast into the peritoneal cavity and he was taken to the OR for ex-lap and had re- repair of duodenal ulcer with Fabrizio patch. He remained intubated with subsequent wean trials and extubated on 07/23/2017, unfortunately he was re- intubated on 07/26/2017 due to desaturations and respiratory failure. On 08/23 patient had a trach placed. PLAN #Septic shock secondary to perforated duodenal ulcer A/P Fabrizio patch: He had a catscan yesterday which showed decreased collections. His ramon was removed (it had been in for >40 days) and replaced with a new one. New Ramon Day 6. Micro is shoiwng the body cx with VRE and respiratory cx with VRE. Repeat sputum cx on 08/02 shows GPC and mold. A repeat swab of the draining wound on abdomen showed E. coli and Beta strep Group B. BCx negative to date. Negative aspergillus antibody. H.pylori negative. Aug 08 body cx growing enterobacter aerogenes. Respiratory cx on 08/08 enterobacter aerogenes and staph aureus. * D/C Meropenem 07/30 and D/C Cubicin Day 08/01. * As per ID recomendations will conitune follow the patient off antibiotics, Antibiotics discontinued on 08/24/2017. * Follow-up on pending repeat culture results * Continue on PRN fentanyl for sedation. * Continue Protonix IV 40 mg twice a day * Octreotide SC 100 mcg TID * Surgery following, await dressing change. * Trach placed 08/23, will continue trach care as per instructions, PSV trials to continue. Will attempt mask trials . * Pt LLQ drain removed 08/23 History of PAF on Tikosyn * Continue to hold the Tikosyn * Appreciate cardiology recs * Con't Coreg 3.125 MG BID. * If further significant ventricular tachycardia can place on amiodarone. DM: * Goal glucose between [id number]. * FSGs were: 179,178,176 * Appreciate endocrinology recommendation. * Con't FS * Con't RISS as per scale. Levemir was reduced to 16 units BID. USMAN: RESOLVED. Hyponatremia: RESOLVED. Guarded prognosis DNR Nothing by mouth DVT prophylaxis with subcutaneous heparin Problem List: 1. Peritonitis Pain Ratin Tomorrow's Labs & Rationales: CBC: monitor H/H in the setting of acute illness ICU Bundle:Monitor electrolytes in the setting of acute illness. Plan DVT/Prophylaxis: mechanical, pharmacological
[2017-08-26 08:00] VITALS: BP 110/60
--- NOTE | 2017-08-26 08:41 | PN- CRCU ---
Subjective HPI/Critical Care Issues: Doing the same stable Still less responsive Objective Current Medications: Current Medications Sig/Buck Start time Last Medication Dose Route Stop Time Status Admin Acetaminophen 1,000 MG Q6P PRN 07/16 0530 AC 07/20 N/A 1 UNIT IV 0659 Albuterol Sulfate 3 ML EVERY 4 HRS/AWAKE 07/27 0800 AC 08/26 INH 0810 Aspirin 81 MG DAILY 08/16 2345 AC 08/25 PO 0953 Atorvastatin Calcium 40 MG 1700 08/16 1700 AC 08/25 PO 1616 Budesonide/ 2 PUF BID 07/26 1056 AC 08/26 Formoterol Fumarate INH 0811 Carvedilol 3.125 MG BID 07/28 1000 AC 08/25 PO 2203 Fentanyl Citrate 100 MCG .STK-MED ONE 08/25 1114 DC IM 08/25 1115 Fentanyl Citrate 25 MCG Q4P PRN 08/05 2130 AC 08/25 IV 1117 Glycerin 2 SPRAY Q2P PRN 08/10 0445 AC 08/19 PO 2150 Heparin Sodium 5,000 UNIT Q8 08/05 1400 AC 08/26 (Porcine) SC 0619 Insulin Aspart 0 Q4 07/25 1000 AC 08/26 SC 0617 Insulin Detemir 16 UNITS BID 08/25 1000 08/25 SC 2155 Lidocaine 1 GENE BID PRN 08/25 0845 08/25 TOP 1029 Magnesium Sulfate 1 GM Q2H 08/25 0800 DC 08/25 Dextrose/Water 100 ML IV 08/25 0959 1205 Octreotide Acetate 100 MCG TID 08/25 1226 08/25 SC 2157 Octreotide Acetate 500 MCG Q20H 07/15 1400 DC 08/25 Dextrose/Water 500 ML IV 1029 Pantoprazole Sodium 40 MG BID 07/10 1016 AC 08/25 IV 2158 Potassium Chloride 20 MEQ Q1H 08/25 0800 DC 08/25 IV 08/25 0901 1058 Vital Signs & I&O Last 24 Hrs of Vitals and I&O: Vital Signs Date Time Temp Pulse Resp B/P B/P Pulse O2 O2 Flow FiO2 Mean Ox Delivery Rate 08/26 0821 35 08/26 0618 35 08/26 0344 35 08/26 0102 35 08/26 0000 98 Ventilator 35% 08/25 2300 97.5 72 19 100/60 98 Ventilator 35% 12/21 2221 35 08/25 2203 70 21 113/62 08/25 2000 35 08/25 2000 99 Ventilator 35% 08/25 1640 35 08/25 1600 98.3 75 16 108/60 99 Ventilator 35% 08/25 1600 99 Ventilator 35% 08/25 1359 35 08/25 1212 35 08/25 1200 97.6 69 30 110/60 100 Ventilator 35% 08/25 1200 100 Ventilator 35% 08/25 0954 104/51 Intake & Output 08/26 1600 08/26 0800 08/26 0000 Intake Total 836 Output Total 945 Balance -109 Intake, Tube 706 Feeding Intake, Tube 130 Irrigant Output, 385 Drainage Output, Stool 200 Output, Urine 360 Impression/Plan Impression/Plan Impression/Plan: Afebrile. s/p trach bovona 8 Skin reveals no rash. HEENT negative. Neck supple with no adenopathy; Picc line in place Lungs decreased breath sounds bilaterally. Heart regular rhythm with no murmur. Abdomen is obese, distended, tender to palpation, Incision noted with a gabriela drain in the rt side, feeding tube on the left side with ongoing drainage Extremities superficial ulcerations over the anterior tibial aspects of both legs, with 1+ edema bilaterally. Neuro is without focality. 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 with prolonged antibiotic, previous history of peptic ulcer disease, diabetes, sinus rhythm upon admission was on Tikosyn, hyperlipidemia, apparently has never smoked before, previous history of lithotripsy, CABG, previous hip prosthesis infection status post removal of prosthesis in early 2016 now has the following issues * S/p Perf large DU ulcer s/p surg with unsuccessful du repair with peritonitis, persistant leak / now has sig gabriela drainage with ng suction and somatostatin / Patient now has significant fluid collection in the right paracolic gutter reinsertion of pig tail with prob has necrotizing fascitis of the abd wall mild * S/p Severe shock septic on multiple pressors now off pressors, with ongoing intraabd sepsis and prob atx and pna * Hypoxic respiratory failureSputum does have enterobacter and staph / s/p trach 08/23 * Sig drainage from the gabriela biliary leak and fluid collection which is ongoing/ with fluid collection which is pyogenic * Significant ischemic heart disease with low ejection fraction high risk for fluid overload. Previous pafib in sinus now with a pacer and AICD. 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 * H/O LIAM was on cpap * On stress dose steroids now being weaned off * On and off diarrhea * CT reviewed pt has a stroke and sig sinusitis * s/p trach RECOMMENDATION * COnt current care and off antibiotics per ID * Intravenous pantoprazole * Heparin subcutaneous * Octreotide sub cut * Watch off abx * Trach care as per protocol / Can cont psv trials and trach mask trials if katarina daily DNR
--- NOTE | 2017-08-26 11:17 | PN- General Surgery ---
Surgical Brief Attending Note Brief Attending Note: stable on vent. trach function good. no new recs. continue drains as ordered. 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 subcutaneous octreotide. Poor prognosis with CVA.
--- NOTE | 2017-08-26 13:00 | PN- Cardiology ---
Subjective Subjective: Remains on ventilator. Status post tracheostomy 07/24/2017. Objective Vital Signs and I&Os Vital Signs Date Time Temp Pulse Resp B/P B/P Pulse O2 O2 Flow FiO2 Mean Ox Delivery Rate 08/26 1204 36 08/26 1200 99 CPAP 35% 08/26 1025 73 105/56 08/26 0821 35 08/26 0800 97.9 74 24 110/60 100 Ventilator 35% 08/26 0800 100 Ventilator 35% 08/26 0618 35 08/26 0400 99 Ventilator 35% 08/26 0344 35 08/26 0102 35 08/26 0000 98 Ventilator 35% 08/25 2300 97.5 72 19 100/60 98 Ventilator 35% 08/25 2221 35 08/25 2203 70 21 113/62 08/25 2000 35 08/25 2000 99 Ventilator 35% 08/25 1640 35 08/25 1600 98.3 75 16 108/60 99 Ventilator 35% 08/25 1600 99 Ventilator 35% 08/25 1359 35 Intake & Output 08/26 1600 08/26 0800 08/26 0000 08/25 1600 08/25 0800 08/25 0000 Intake Total 725 401 3071 976 1019 Output Total 540 412 6911 400 660 Balance 280 -109 201 576 359 Intake, IV 526 185 203 Intake, Tube 728 706 660 726 736 Feeding Intake, Tube 57 130 100 65 80 Irrigant Number 0 Bowel Movements Output, 125 385 135 0 155 Drainage Output, Other 125 Output, Stool 200 400 75 25 Output, Urine 380 360 425 325 480 Physical Exam: Well-developed, morbidly obese male in no acute distress. Vital signs: See above. Neck: No JVD, no bruits. Lungs: Clear to auscultation anteriorly. Heart: S1, S2 (regular) with grade 1-2/6 systolic murmur. Abdomen: Soft, distended, nontender, positive bowel sounds. Abdominal catheters main in place. Incision with no erythema and minimal exudate from the inferior aspect. Extremities: Mild upper extremity and no lower extremity edema. Current Medications: Current Medications Sig/Buck Start time Last Medication Dose Route Stop Time Status Admin Acetaminophen 1,000 MG Q6P PRN 07/16 0530 AC 07/20 N/A 1 UNIT IV 0659 Albuterol Sulfate 3 ML EVERY 4 HRS/AWAKE 07/27 0800 AC 08/26 INH 1157 Aspirin 81 MG DAILY 08/16 2345 AC 08/26 PO 1025 Atorvastatin Calcium 40 MG 1700 08/16 1700 AC 08/25 PO 1616 Budesonide/ 2 PUF BID 07/26 1056 AC 08/26 Formoterol Fumarate INH 0811 Carvedilol 3.125 MG BID 07/28 1000 AC 08/26 PO 1025 Fentanyl Citrate 25 MCG Q4P PRN 08/05 2130 AC 08/25 IV 1117 Glycerin 2 SPRAY Q2P PRN 08/10 0445 AC 08/19 PO 2150 Heparin Sodium 5,000 UNIT Q8 08/05 1400 AC 08/26 (Porcine) SC 0619 Insulin Aspart 0 Q4 07/25 1000 AC 08/26 SC 1026 Insulin Detemir 16 UNITS BID 08/25 1000 AC 08/26 SC 1026 Lidocaine 1 GENE BID PRN 08/25 0845 08/25 TOP 1029 Octreotide Acetate 100 MCG TID 08/25 1226 AC 08/26 SC 1024 Pantoprazole Sodium 40 MG BID 07/10 1016 08/26 IV 1024 Results Last 48 Hrs of Labs/Mics: Laboratory Tests 08/26/17 0442: Anion Gap 6, Estimated GFR > 60, Glucose 151 H, Calcium 7.9 L, Phosphorus 3.5, Magnesium 1.9, Total Bilirubin 0.2, AST 28, ALT 38, Albumin 1.9 L, CBC w Diff NO MAN DIFF REQ, RBC 2.99 L, MCV 95.8 H, MCH 30.6, RDW 22.8 H, MPV 8.9, Gran % 60.6, Lymphocytes % 29.4, Monocytes % 7.5, Eosinophils % 2.0, Basophils % 0.5, Absolute Granulocytes 5.1, Absolute Lymphocytes 2.5, Absolute Monocytes 0.6, Absolute Eosinophils 0.2, Absolute Basophils 0, PUBS MCHC 31.9 L 08/25/17 0443: Anion Gap 9, Estimated GFR > 60, Glucose 188 H, Calcium 7.7 L, Phosphorus 3.7, Magnesium 1.8, Total Bilirubin 0.3, AST 26, ALT 47, Albumin 1.8 L, CBC w Diff NO MAN DIFF REQ, RBC 3.01 L, MCV 94.7 H, MCH 30.1, RDW 23.3 H, MPV 9.2, Gran % 63.9, Lymphocytes % 28.5, Monocytes % 6.1, Eosinophils % 1.2, Basophils % 0.3, Absolute Granulocytes 5.7, Absolute Lymphocytes 2.6, Absolute Monocytes 0.5, Absolute Eosinophils 0.1, Absolute Basophils 0, PUBS MCHC 31.8 L Assessment/Plan Assessment/Plan 76-y-o-w-m w/ hx of morbid obesity, LIAM on CPAP, COPD, HTN, HLD, DM, CAD/ICM (s/ p IMI in 1998, CABG 4 w/ WHITE to LAD and individual SVGs to Dx, OM, PDA & MAZE) , and recurrent PAF who presented in an unkempt state via ambulance w/ UTI & subsequently had a perforation of a duodenal ulcer for which he underwent surgery (Fabrizio patch) on 07/09/2017 with worsening clinical status requiring return to the OR on 07/16/2017 for exploratory laparotomy and suture repair duodenal ulcer with Fabrizio patch. Status post drainage of a left abdominal abscess on 08/08/2017 w/ pus aspiration & catheter in place. Hemodynamically stable with properly functioning electronic pacemaker nearing end-of-life (EOL), but without immediate concern for pacemaker failure. No new cardiac issues. Continued output from WILLEM drains and persistent purulent drainage from his incision, that is felt by surgery to represent necrotic fascia. He has been deemed a nonsurgical candidate for this issue. Tracheostomy performed 08/23/2017 and functioning properly. Drains again functioning properly. Recommendations: * If further significant ventricular tachycardia can place on amiodarone. * Pacemaker functioning properly and should for months, even though near EOL. * Replete potassium and aim to maintain between 4.0-4.5 mEq per liter. * Replete magnesium and aim to maintain at or above 2.0 mEq per liter. * Continue to follow-up on infectious disease, critical care, endocrine, renal and surgical recommendations. * Continue DVT prophylaxis. Continue telemetry? Not applicable (In ICU.)
--- NOTE | 2017-08-26 14:08 | PN- Diabetes ---
Assessment/Plan Assessment: 76-year-old male with Hx of CAD with low ejection fraction, atrial fibrillation, AICD, previous infection of hip with prolonged antibiotic, history of peptic ulcer disease, diabetes and renal stone, was admitted for perforation of duodenum now with septic shock in ICU. He was on 3 pressors, TPN, octreotide drip and bicarb drip. His BP remained low and stress dose of steroid was initiated despite his am cortisol was 24.8. Patient is still on octreotide drip. Patient was re-intubated on 07/26/2017. Hydrocortisone was discontinued on 08/13/2017. Repeat am cortisol 15.8 on 2016. He was on tube feeding with Vital 85 mL per hour, Levemir 17 units twice a day and Novolog coverage every 4 hours . Patient underwent tracheostomy on 08/23/2017 . The patient's most recent blood sugars which are being done every 4 hours R2 11, 169, 162, 192, and 178. He was restarted on tube feeding at 85 ml/hour. He was put on Levemir 14 units twice a day, Novolog coverage every 4 hours ( FSG 80-150, 8 units; FSG 151-200, 10 units, etc). His FSGs were 190, 210, 289, 189 and 206. Plan: To just continue the present insulin regimen. The patient's blood sugars are in good control. Objective Last 24 Hrs of Vital Signs/I&O Vital Signs Date Time Temp Pulse Resp B/P B/P Pulse O2 O2 Flow FiO2 Mean Ox Delivery Rate 08/26 1204 36 08/26 1200 99 CPAP 35% 08/26 1025 73 105/56 08/26 0821 35 08/26 0800 97.9 74 24 110/60 100 Ventilator 35% 08/26 0800 100 Ventilator 35% 08/26 0618 35 08/26 0400 99 Ventilator 35% 08/26 0344 35 08/26 0102 35 08/26 0000 98 Ventilator 35% 08/25 2300 97.5 72 19 100/60 98 Ventilator 35% 08/25 2221 35 08/25 2203 70 21 113/62 08/25 2000 35 08/25 2000 99 Ventilator 35% 08/25 1640 35 08/25 1600 98.3 75 16 108/60 99 Ventilator 35% 08/25 1600 99 Ventilator 35% Intake & Output 08/26 1600 08/26 0800 08/26 0000 Intake Total 785 836 Output Total 505 945 Balance 280 -109 Intake, Tube 728 706 Feeding Intake, Tube 57 130 Irrigant Number 0 Bowel Movements Output, 125 385 Drainage Output, Stool 200 Output, Urine 380 360 Vital Signs Date Time Temp Pulse Resp B/P B/P Pulse O2 O2 Flow FiO2 Mean Ox Delivery Rate 08/26 1204 36 08/26 1200 99 CPAP 35% 08/26 1025 73 105/56 08/26 0821 35 08/26 0800 97.9 74 24 110/60 100 Ventilator 35% 08/26 0800 100 Ventilator 35% 08/26 0618 35 08/26 0400 99 Ventilator 35% 08/26 0344 35 08/26 0102 35 08/26 0000 98 Ventilator 35% 08/25 2300 97.5 72 19 100/60 98 Ventilator 35% 08/25 2221 35 08/25 2203 70 21 113/62 08/25 2000 35 08/25 2000 99 Ventilator 35% 08/25 1640 35 08/25 1600 98.3 75 16 108/60 99 Ventilator 35% 08/25 1600 99 Ventilator 35% Intake & Output 08/26 1600 08/26 0800 08/26 0000 Intake Total 785 836 Output Total 505 945 Balance 280 -109 Intake, Tube 728 706 Feeding Intake, Tube 57 130 Irrigant Number 0 Bowel Movements Output, 125 385 Drainage Output, Stool 200 Output, Urine 380 360 Physical Exam General Appearance: sedated, tracheostomy Neck: normal inspection Respiratory: normal breath sounds Abdomen: normal bowel sounds Extremities: normal inspection Current Medications: Current Medications Sig/Buck Start time Last Medication Dose Route Stop Time Status Admin Acetaminophen 1,000 MG Q6P PRN 07/16 0530 AC 07/20 N/A 1 UNIT IV 0659 Albuterol Sulfate 3 ML EVERY 4 HRS/AWAKE 07/27 0800 AC 08/26 INH 1157 Aspirin 81 MG DAILY 08/16 2345 AC 08/26 PO 1025 Atorvastatin Calcium 40 MG 1700 08/16 1700 AC 08/25 PO 1616 Budesonide/ 2 PUF BID 07/26 1056 AC 08/26 Formoterol Fumarate INH 0811 Carvedilol 3.125 MG BID 07/28 1000 AC 08/26 PO 1025 Fentanyl Citrate 25 MCG Q4P PRN 08/05 2130 AC 08/25 IV 1117 Glycerin 2 SPRAY Q2P PRN 08/10 0445 AC 08/19 PO 2150 Heparin Sodium 5,000 UNIT Q8 08/05 1400 AC 08/26 (Porcine) SC 0619 Insulin Aspart 0 Q4 07/25 1000 08/26 SC 1026 Insulin Detemir 16 UNITS BID 08/25 1000 08/26 SC 1026 Lidocaine 1 GENE BID PRN 08/25 0845 08/25 TOP 1029 Octreotide Acetate 100 MCG TID 08/25 1226 08/26 SC 1024 Pantoprazole Sodium 40 MG BID 07/10 1016 08/26 IV 1024 Findings Pertinent Lab/Les Results: Laboratory Tests 08/26 442 Chemistry Sodium (137 - 145 mmol/L) 143 Potassium (3.5 - 5.1 mmol/L) 4.1 Chloride (98 - 107 mmol/L) 115 H Carbon Dioxide (22 - 30 mmol/L) 22 Anion Gap (5 - 16) 6 BUN (9 - 20 mg/dL) 24 H Creatinine (0.7 - 1.2 mg/dL) 0.5 L Estimated GFR (>60 ml/min) > 60 Glucose (65 - 99 mg/dL) 151 H Calcium (8.4 - 10.2 mg/dL) 7.9 L Phosphorus (2.5 - 4.5 mg/dL) 3.5 Magnesium (1.6 - 2.3 mg/dL) 1.9 Total Bilirubin (0.2 - 1.3 mg/dL) 0.2 AST (17 - 59 U/L) 28 ALT (21 - 72 U/L) 38 Albumin (3.5 - 5.0 g/dL) 1.9 L Hematology CBC w Diff NO MAN DIFF REQ WBC (4.8 - 10.8 /CUMM) 8.4 RBC (4.70 - 6.10 /CUMM) 2.99 L Hgb (14.0 - 18.0 G/DL) 9.1 L Hct (42 - 52 %) 28.7 L MCV (80.0 - 94.0 FL) 95.8 H MCH (27.0 - 31.0 PG) 30.6 RDW (11.5 - 14.5 %) 22.8 H Plt Count (130 - 400 /CUMM) 184 MPV (7.4 - 10.4 FL) 8.9 Gran % (42.2 - 75.2 %) 60.6 Lymphocytes % (20.5 - 51.1 %) 29.4 Monocytes % (1.7 - 9.3 %) 7.5 Eosinophils % (0 - 5 %) 2.0 Basophils % (0.0 - 2.0 %) 0.5 Absolute Granulocytes (1.4 - 6.5 /CUMM) 5.1 Absolute Lymphocytes (1.2 - 3.4 /CUMM) 2.5 Absolute Monocytes (0.10 - 0.60 /CUMM) 0.6 Absolute Eosinophils (0.0 - 0.7 /CUMM) 0.2 Absolute Basophils (0.0 - 0.2 /CUMM) 0 PUBS MCHC (33.0 - 37.0 G/DL) 31.9 L
[2017-08-26 16:00] VITALS: BP 120/60
--- NOTE | 2017-08-26 17:12 | Event Note ---
Event Note Event Note: S: Around 4.00pm patient had a NSVT of 28 beats. Hemodynamically stable/ intubated. B: pmh significan LIAM on CPAP, COPD, HTN, HLD, DM, CAD/ICM (s/p IMI in 1998, CABG 4 w/ WHITE to LAD and individual SVGs to Dx, OM, PDA & MAZE and AICD) recurrent PAF on Tikosyn. A/P: Monomorphic NSVT, most likely secondary to Tikosyn being held due to him being intubated. Will get EKG, ICU bundle to check for electrolytes and TFT. If NSVT recurs then will start him on amiodarone drip pending above labs. The above was discussed with Dr. Means.
[2017-08-27] VITALS: BP 112/60
[2017-08-27 03:55] LABS: ABSOLUTE BASOPHIL COUNT 0 /CUMM (0.0-0.2); ABSOLUTE EOSINOPHIL COUNT 0.2 /CUMM (0.0-0.7); ABSOLUTE GRANULOCYTE CT 4.9 /CUMM (1.4-6.5); ABSOLUTE LYMPH COUNT 2.9 /CUMM (1.2-3.4); ABSOLUTE MONOCYTE COUNT 0.6 /CUMM (0.10-0.60); BASOPHIL % 0.5 % (0.0-2.0); EOSINOPHIL % 1.8 % (0-5); GRANULOCYTE % 57.2 % (42.2-75.2); MEAN CORPUSCULAR HGB 30.6 PG (27.0-31.0); MEAN CORPUSCULAR HGB CONC 31.8 G/DL (33.0-37.0); MEAN CORPUSCULAR VOLUME 96.2 FL (80.0-94.0); MEAN PLATELET VOLUME 8.5 FL (7.4-10.4); PLATELET COUNT 203 /CUMM (130-400); RBC DISTRIBUTION WIDTH 22.8 % (11.5-14.5); RED BLOOD CELL CT 3.01 /CUMM (4.70-6.10); WHITE BLOOD CELL COUNT 8.5 /CUMM (4.8-10.8)
[2017-08-27 08:00] VITALS: BP 112/62
--- NOTE | 2017-08-27 08:38 | PN- Resident CRCU ---
Subjective HPI/CRCU Issues: septic shock due to deodenal perforation s/p surgery USMAN PAF on tikosyn Diabetes 24 Hour Events: I have and examined the patient. He only opens his eyes to painful stimuli. Temperature maximum 100, heart rate 70-78,22-24, BP 110/60, Before meals 10, with 3500, FiO2 13, PEEP 5, O2 sat more than 96%, input 2471, output 1945 for 24 hours Objective Vital Signs & I&O Last 8 Hrs of Vitals and I&O: . Exam General Appearance: no apparent distress, intubated (with trachostomy) Other Physical Findings: Neck: normal inspection Respiratory: mild Crackles BL Cardiovascular: regular rate/rhythm Gastrointestinal: normal bowel sounds, soft, non-tender, Two abdominal catheters in place. Draining well. Extremities: normal inspection, normal capillary refill, no edema Skin: intact Skin Temp/Moisture Exam: Warm/Dry Sepsis Skin Exam (color): Normal for Ethnicity Weaning Parameters NIF: 21 Minute Volume: 8.30 Resp rate: 45 Vt: 185 Heart Rate: 74 Weaning Schedule Start Time: 1910 Minute Volume: 14.8 Resp Rate: 26 Vt: 550 Heart Rate: 74 End Time: 2100 Minute Volume: 12.8 Resp Rate: 30 Vt: 420 Heart Rate: 71 Current Medications: Current Medications Sig/Buck Start time Last Medication Dose Route Stop Time Status Admin Acetaminophen 1,000 MG Q6P PRN 07/16 0530 AC 07/20 N/A 1 UNIT IV 0659 Albuterol Sulfate 3 ML EVERY 4 HRS/AWAKE 07/27 0800 AC 08/30 INH 1214 Amiodarone HCl 400 MG BID 08/27 2200 AC 08/30 PO 1021 Aspirin 81 MG DAILY 08/16 2345 AC 08/30 PO 1021 Atorvastatin Calcium 40 MG 1700 08/16 1700 AC 08/30 PO 1546 Budesonide/ 2 PUF BID 07/26 1056 AC 08/30 Formoterol Fumarate INH 0855 Carvedilol 3.125 MG BID 07/28 1000 AC 08/30 PO 1021 Fentanyl Citrate 25 MCG Q4P PRN 08/05 2130 AC 08/27 IV 0026 Glycerin 2 SPRAY Q2P PRN 08/10 0445 AC 08/27 PO 1028 Heparin Sodium 5,000 UNIT Q8 08/05 1400 AC 08/30 (Porcine) SC 1412 Insulin Aspart 0 Q6 08/27 1800 AC 08/30 SC 1238 Insulin Detemir 16 UNITS BID 08/25 1000 AC 08/30 SC 1019 Lidocaine 1 GENE BID PRN 08/25 0845 AC 08/25 TOP 1029 Magnesium Oxide 400 MG BID 08/28 1216 AC 08/30 PO 1021 Nystatin 5 ML 4 TIMES/DAY 08/30 1400 AC 08/30 PO 1541 Octreotide Acetate 100 MCG TID 08/29 2200 AC 08/30 IV 1546 Octreotide Acetate 100 MCG TID 08/25 1226 DC 08/29 SC 1614 Pantoprazole Sodium 40 MG BID 07/10 1016 AC 08/30 IV 1019 Impression/Plan Impression/Problem List Impression: This is a 76-year-old male with past medical history of CAD with HFrEF, A. fib, AICD, previous infection of the hip with prolonged antibiotic, history of peptic ulcer disease, diabetes, nephrolithiasis who was transferred to the ICU for perforation of the duodenum with septic shock S/P repair with patch. Repeated CT of the abdomen performed on 07/15 revealed free air/extravasation of contrast into the peritoneal cavity and he was taken to the OR for ex-lap and had re- repair of duodenal ulcer with Fabrizio patch. He remained intubated with subsequent wean trials and extubated on 07/23/2017, unfortunately he was re- intubated on 07/26/2017 due to desaturations and respiratory failure. On 08/23 patient had a trach placed. PLAN #Septic shock secondary to perforated duodenal ulcer A/P Fabrizio patch: He had a catscan yesterday which showed decreased collections. His ramon was removed (it had been in for >40 days) and replaced with a new one. New Ramon Day 7. Micro is shoiwng the body cx with VRE and respiratory cx with VRE. Repeat sputum cx on 08/02 shows GPC and mold. A repeat swab of the draining wound on abdomen showed E. coli and Beta strep Group B. BCx negative to date. Negative aspergillus antibody. H.pylori negative. Aug 08 body cx growing enterobacter aerogenes. Respiratory cx on 08/08 enterobacter aerogenes and staph aureus. * D/C Meropenem 07/30 and D/C Cubicin Day 08/01. * As per ID recomendations will conitune follow the patient off antibiotics, Antibiotics discontinued on 08/24/2017 max temp 100 * Follow-up on pending repeat culture results * Continue on PRN fentanyl for sedation. * Continue Protonix IV 40 mg twice a day * Octreotide SC 100 mcg TID * Surgery following, await dressing change. * Trach placed 08/23, will continue trach care as per instructions, PSV trials to continue. Will attempt mask trials . * Pt LLQ drain removed 08/23 Traechostomy on ventilation * we will get ABG and CXR History of PAF on Tikosyn * Continue to hold the Tikosyn * Appreciate cardiology recs * Con't Coreg 3.125 MG BID. * If further significant ventricular tachycardia can place on amiodarone. DM: * Goal glucose between [id number]. * FSGs were: 157,169, * Appreciate endocrinology recommendation. * Con't FS * Con't RISS as per scale. Levemir was reduced to 16 units BID. * on vital AF USMAN: RESOLVED. mildly elevated CL with na 146: Guarded prognosis DNR Nothing by mouth DVT prophylaxis with subcutaneous heparin Problem List: 1. GI bleed 2. Acute renal failure 3. Leucocytosis Pain Ratin Tomorrow's Labs & Rationales: icu bundle cbc Plan DVT/Prophylaxis: mechanical, pharmacological
--- NOTE | 2017-08-27 09:51 | PN- Infect Dx ---
Subjective Subjective: Afebrile without complaints Objective Last 24 Hrs of Vital Signs/I&O Vital Signs Date Time Temp Pulse Resp B/P B/P Pulse O2 O2 Flow FiO2 Mean Ox Delivery Rate 08/27 0831 30 08/27 0800 98.9 70 18 112/62 97 Ventilator 30% 08/27 0610 30 08/27 0400 98 Ventilator 30% 08/27 0326 30 08/27 0147 30 08/27 0000 97 Ventilator 30% 08/27 0000 99.8 78 26 112/60 97 Ventilator 30% 08/26 2224 30 08/26 2129 70 105/59 08/26 2000 97 Ventilator 30% 08/26 1900 30 08/26 1600 35 08/26 1600 98.8 71 14 120/60 100 Ventilator 35% 08/26 1600 100 Ventilator 35% 08/26 1411 35 08/26 1204 36 08/26 1200 99 CPAP 35% 08/26 1025 73 105/56 Intake & Output 08/27 1600 08/27 0800 08/27 0000 Intake Total 796 800 Output Total 670 605 Balance 126 195 Intake, Oral 0 0 Intake, Tube 716 660 Feeding Intake, Tube 80 140 Irrigant Number 0 Bowel Movements Output, 210 5 Drainage Output, Other 250 Output, Stool 10 Output, Urine 450 350 Physical Exam Other Physical Findings: He is lethargic but arousable on the ventilator Lungs scattered rhonchi bilaterally Heart regular rhythm with no murmur Abdomen is mildly distended, nontender with positive bowel sounds; right sided abdominal catheters remain in place, with 210 mL output overnight from drain #2 and no output recorded from drain #1; rectal tube remains in place Extremities no cyanosis, clubbing or edema; PICC in the right upper extremity with no inflammation at the site Duvall catheter remains in place Results Last 24 Hours of Lab Results: Laboratory Tests 08/27 08/26 08/26 0330 1725 1710 Chemistry Sodium (137 - 145 mmol/L) 146 H Cancelled 145 Potassium (3.5 - 5.1 mmol/L) 3.9 Cancelled 4.1 Chloride (98 - 107 mmol/L) 115 H Cancelled 114 H Carbon Dioxide (22 - 30 mmol/L) 23 Cancelled 23 Anion Gap (5 - 16) 8 Cancelled 8 BUN (9 - 20 mg/dL) 24 H Cancelled 24 H Creatinine (0.7 - 1.2 mg/dL) 0.5 L Cancelled 0.5 L Estimated GFR (>60 ml/min) > 60 > 60 Glucose (65 - 99 mg/dL) 102 H Cancelled 132 H Calcium (8.4 - 10.2 mg/dL) 8.0 L Cancelled 8.0 L Phosphorus (2.5 - 4.5 mg/dL) 3.2 Cancelled 3.4 Magnesium (1.6 - 2.3 mg/dL) 1.9 Cancelled 1.9 Total Bilirubin (0.2 - 1.3 mg/dL) 0.3 Cancelled 0.3 AST (17 - 59 U/L) 54 Cancelled 47 ALT (21 - 72 U/L) 49 Cancelled 46 Albumin (3.5 - 5.0 g/dL) 1.9 L Cancelled 2.0 L TSH (0.270 - 4.200 uIU/mL) Cancelled 1.630 Free T4 (0.78 - 2.44 ng/dL) Cancelled 0.56 L Hematology CBC w Diff NO MAN DIFF REQ WBC (4.8 - 10.8 /CUMM) 8.5 RBC (4.70 - 6.10 /CUMM) 3.01 L Hgb (14.0 - 18.0 G/DL) 9.2 L Hct (42 - 52 %) 29.0 L MCV (80.0 - 94.0 FL) 96.2 H MCH (27.0 - 31.0 PG) 30.6 RDW (11.5 - 14.5 %) 22.8 H Plt Count (130 - 400 /CUMM) 203 MPV (7.4 - 10.4 FL) 8.5 Gran % (42.2 - 75.2 %) 57.2 Lymphocytes % (20.5 - 51.1 %) 33.9 Monocytes % (1.7 - 9.3 %) 6.6 Eosinophils % (0 - 5 %) 1.8 Basophils % (0.0 - 2.0 %) 0.5 Absolute Granulocytes (1.4 - 6.5 /CUMM) 4.9 Absolute Lymphocytes (1.2 - 3.4 /CUMM) 2.9 Absolute Monocytes (0.10 - 0.60 /CUMM) 0.6 Absolute Eosinophils (0.0 - 0.7 /CUMM) 0.2 Absolute Basophils (0.0 - 0.2 /CUMM) 0 PUBS MCHC (33.0 - 37.0 G/DL) 31.8 L Last 24 Hours of Les Results: No new cultures Assessment/Plan Impression: Stable, though overall status remains poor, with temperatures and white blood cell count remaining normal off antibiotics, now 12 days status post drainage of 2 right sided collections, 42 days status post unsuccessful duodenal repair and 49 days status post his initial surgery for a perforated duodenal ulcer. Suggestion: 1. Remove Duvall catheter 2. Continue to follow off antibiotics
--- NOTE | 2017-08-27 10:26 | PN- Pulmonary ---
Subjective HPI/Critical Care Issues: Patient remains extremely lethargic ventilated via trach Objective Current Medications: Current Medications Sig/Buck Start time Last Medication Dose Route Stop Time Status Admin Acetaminophen 1,000 MG Q6P PRN 07/16 0530 AC 07/20 N/A 1 UNIT IV 0659 Albuterol Sulfate 3 ML EVERY 4 HRS/AWAKE 07/27 0800 AC 08/27 INH 0821 Aspirin 81 MG DAILY 08/16 2345 AC 08/26 PO 1025 Atorvastatin Calcium 40 MG 1700 08/16 1700 AC 08/26 PO 1638 Budesonide/ 2 PUF BID 07/26 1056 AC 08/27 Formoterol Fumarate INH 0823 Carvedilol 3.125 MG BID 07/28 1000 AC 08/26 PO 2129 Fentanyl Citrate 100 MCG .STK-MED ONE 08/27 0025 DC IM 08/27 0026 Fentanyl Citrate 25 MCG Q4P PRN 08/05 2130 AC 08/27 IV 0026 Glycerin 2 SPRAY Q2P PRN 08/10 0445 AC 08/19 PO 2150 Heparin Sodium 5,000 UNIT Q8 08/05 1400 AC 08/27 (Porcine) SC 0543 Insulin Aspart 0 Q4 07/25 1000 AC 08/27 SC 0543 Insulin Detemir 16 UNITS BID 08/25 1000 AC 08/26 SC 2133 Lidocaine 1 GENE BID PRN 08/25 0845 08/25 TOP 1029 Magnesium Oxide 400 MG ONE ONE 08/26 2015 DC 08/26 PO 08/26 Octreotide Acetate 100 MCG TID 08/25 1226 AC 08/26 SC 2128 Pantoprazole Sodium 40 MG BID 07/10 1016 AC 08/26 IV 2128 Vital Signs & I&O Last 24 Hrs of Vitals and I&O: Vital Signs Date Time Temp Pulse Resp B/P B/P Pulse O2 O2 Flow FiO2 Mean Ox Delivery Rate 08/27 0831 30 08/27 0800 98.9 70 18 112/62 97 Ventilator 30% 08/27 0800 95 Ventilator 30% 08/27 0610 30 08/27 0400 98 Ventilator 30% 08/27 0326 30 08/27 0147 30 08/27 0000 97 Ventilator 30% 08/27 0000 99.8 78 26 112/60 97 Ventilator 30% 08/26 2224 30 08/26 2129 70 105/59 08/26 2000 97 Ventilator 30% 08/26 1900 30 08/26 1600 35 08/26 1600 98.8 71 14 120/60 100 Ventilator 35% 08/26 1600 100 Ventilator 35% 08/26 1411 35 08/26 1204 36 08/26 1200 99 CPAP 35% 08/26 1025 73 105/56 Intake & Output 08/27 1600 08/27 0800 08/27 0000 Intake Total 796 800 Output Total 670 605 Balance 126 195 Intake, Oral 0 0 Intake, Tube 716 660 Feeding Intake, Tube 80 140 Irrigant Number 0 Bowel Movements Output, 210 5 Drainage Output, Other 250 Output, Stool 10 Output, Urine 450 350 Since saturation 30% 97% exam of his chest shows scattered rhonchi cardiac exam shows regular S1 and S2 abdomen is with diminished breath sounds Impression/Plan Impression/Plan Impression/Plan: 76-year-old with bowel perforation with persistent respiratory failure. His overall status remains unchanged. Weaning is not realistic. Recommendations: Minimize sedation in hopes of improved mental status continue current ventilatory support repeat chest x-ray
--- NOTE | 2017-08-27 12:50 | RADIOLOGY REPORT ---
EXAMINATION: XR PORTABLE CHEST CLINICAL INFORMATION: Low O2 sats. Tracheostomy ventilation. COMPARISON: 08/23/2017 TECHNIQUE: AP portable upright view of the chest FINDINGS: Tracheostomy tube tip terminates 4.5 cm from the kika. Dual-lead AICD, sternal wires, right PICC line, enteric tube, CABG markers, and sternal wires are again noted and don't appear significantly changed from prior. Lung volumes remain low. Small bilateral pleural effusions are again Noted. There is no associated lower lobe atelectasis. No new consolidation is identified. IMPRESSION: 1. Tracheostomy tube in good position. 2. Low lung volumes with bibasilar atelectasis and small bilateral effusions.
[2017-08-27 16:00] VITALS: BP 110/60
--- NOTE | 2017-08-27 17:22 | PN- Cardiology ---
Subjective Subjective: * no reported issues * episodes of VT noted Objective Vital Signs and I&Os Vital Signs Date Time Temp Pulse Resp B/P B/P Pulse O2 O2 Flow FiO2 Mean Ox Delivery Rate 08/27 1600 98.6 74 21 110/60 99 Ventilator 30% 08/27 1600 95 Ventilator 30% 08/27 1556 30 08/27 1348 30 08/27 1200 95 Ventilator 30% 08/27 1158 30 08/27 1027 69 96/54 08/27 0831 30 08/27 0800 98.9 70 18 112/62 97 Ventilator 30% 08/27 0800 95 Ventilator 30% 08/27 0610 30 08/27 0400 98 Ventilator 30% 08/27 0326 30 08/27 0147 30 08/27 0000 97 Ventilator 30% 08/27 0000 99.8 78 26 112/60 97 Ventilator 30% 08/26 2224 30 08/26 2129 70 105/59 08/26 2000 97 Ventilator 30% 08/26 1900 30 Intake & Output 08/27 1600 08/27 0800 08/27 0000 08/26 1600 08/26 0800 08/26 0000 Intake Total 809 796 800 880 785 836 Output Total 1160 670 605 670 505 945 Balance -351 126 195 210 280 -109 Intake, IV 30 40 Intake, Oral 0 0 0 Intake, Tube 639 716 660 700 728 706 Feeding Intake, Tube 140 80 140 140 57 130 Irrigant Number 0 0 Bowel Movements Output, 620 210 5 0 125 385 Drainage Output, 0 0 Gastric Drainage Output, Other 40 250 350 Output, Stool 100 10 20 200 Output, Urine 400 450 350 300 380 360 Physical Exam: General: WD/obese male in NAD; awake and responsive Neck: No JVD, no bruits Lungs: Clear to auscultation anteriorly Heart: RRR with 2/6 systolic murmur Abdomen: Soft, distended, nontender, positive bowel sounds with bandaged incision Extremities: no lower extremity edema. Assessment/Plan Assessment/Plan * This patient continues to demonstrate episodes of NSVT in the setting of a low EF. Begin Amiodarone 400mg BID. Continue telemetry? Yes
[2017-08-27 23:00] VITALS: BP 102/50; BP 81/45
[2017-08-28 03:51] LABS: ABSOLUTE BASOPHIL COUNT 0 /CUMM (0.0-0.2); ABSOLUTE EOSINOPHIL COUNT 0.1 /CUMM (0.0-0.7); ABSOLUTE GRANULOCYTE CT 4.1 /CUMM (1.4-6.5); ABSOLUTE LYMPH COUNT 2.3 /CUMM (1.2-3.4); ABSOLUTE MONOCYTE COUNT 0.5 /CUMM (0.10-0.60); BASOPHIL % 0.7 % (0.0-2.0); EOSINOPHIL % 1.8 % (0-5); GRANULOCYTE % 57.6 % (42.2-75.2); HEMATOCRIT 28.1 % (42-52); MEAN CORPUSCULAR HGB 30.6 PG (27.0-31.0); MEAN CORPUSCULAR HGB CONC 31.8 G/DL (33.0-37.0); MEAN PLATELET VOLUME 8.7 FL (7.4-10.4); PLATELET COUNT 211 /CUMM (130-400); RBC DISTRIBUTION WIDTH 23.1 % (11.5-14.5); RED BLOOD CELL CT 2.92 /CUMM (4.70-6.10)
[2017-08-28 05:27] LABS: WHITE BLOOD CELL COUNT 7.2 /CUMM (4.8-10.8)
[2017-08-28 08:00] VITALS: BP 128/64
--- NOTE | 2017-08-28 08:46 | PN- Resident CRCU ---
Subjective HPI/CRCU Issues: Mr Walls was seen and examined this morning. Resting comfrotably in bed. Unable to provide much of a history. 24 Hour Events: No Events reported Overnight. T: 98.9. HR: 63-82. Resp: . BP: 82/51-142/68. Vent: AC 10/500/40/5 Intake: 2469. Output: 3194 Perc Drain #1: 620. Perc drain #2 0 Objective Vital Signs & I&O Last 8 Hrs of Vitals and I&O: T: 98.9. HR: 63-82. Resp: . BP: 82/51-142/68. Vent: AC 10/500/40/5 Intake: 2469. Output: 3194 Perc Drain #1: 620. Perc drain #2 0 Exam General Appearance: sedated, lethargic, mild distress Neck: normal inspection Respiratory: normal breath sounds Cardiovascular: regular rate/rhythm Gastrointestinal: normal bowel sounds, soft, non-tender, Two Catheters in place, draining well Extremities: normal inspection, normal capillary refill, normal range of motion Skin: intact Weaning Parameters NIF: 21 Minute Volume: 9.87 Resp rate: 24 Vt: 405 Heart Rate: 72 Weaning Schedule Start Time: 0840 Minute Volume: 10.4 Resp Rate: 28 Vt: 410 Heart Rate: 70 End Time: 1035 Minute Volume: 7.25 Resp Rate: 35 Vt: 227 Heart Rate: 71 Current Medications: Current Medications Sig/Buck Start time Last Medication Dose Route Stop Time Status Admin Acetaminophen 1,000 MG Q6P PRN 07/16 0530 AC 07/20 N/A 1 UNIT IV 0659 Albuterol Sulfate 3 ML EVERY 4 HRS/AWAKE 07/27 0800 AC 08/28 INH 0838 Amiodarone HCl 400 MG BID 08/27 2200 AC 08/28 PO 1008 Aspirin 81 MG DAILY 08/16 2345 AC 08/28 PO 1009 Atorvastatin Calcium 40 MG 1700 08/16 1700 AC 08/27 PO 1604 Budesonide/ 2 PUF BID 07/26 1056 AC 08/28 Formoterol Fumarate INH 0839 Carvedilol 3.125 MG BID 07/28 1000 AC 08/28 PO 1008 Fentanyl Citrate 25 MCG Q4P PRN 08/05 2130 AC 08/27 IV 0026 Glycerin 2 SPRAY Q2P PRN 08/10 0445 AC 08/27 PO 1028 Heparin Sodium 5,000 UNIT Q8 08/05 1400 AC 08/28 (Porcine) SC 0536 Insulin Aspart 0 Q6 08/27 1800 AC 08/28 SC 0539 Insulin Aspart 0 Q4 07/25 1000 DC 08/27 SC 1027 Insulin Detemir 16 UNITS BID 08/25 1000 AC 08/28 SC 1010 Lidocaine 1 GENE BID PRN 08/25 0845 AC 08/25 TOP 1029 Octreotide Acetate 100 MCG TID 08/25 1226 AC 08/28 SC 1009 Pantoprazole Sodium 40 MG BID 07/10 1016 AC 08/28 IV 1009 Impression/Plan Impression/Problem List Impression: This is a 76-year-old male with past medical history of CAD with HFrEF, A. fib, AICD, previous infection of the hip with prolonged antibiotic, history of peptic ulcer disease, diabetes, nephrolithiasis who was transferred to the ICU for perforation of the duodenum with septic shock S/P repair with patch. Repeated CT of the abdomen performed on 07/15 revealed free air/extravasation of contrast into the peritoneal cavity and he was taken to the OR for ex-lap and had re- repair of duodenal ulcer with Fabrizio patch. He remained intubated with subsequent wean trials and extubated on 07/23/2017, unfortunately he was re- intubated on 07/26/2017 as the patient was desaturating. On 08/23 patient had a trach placed. PLAN #Septic shock secondary to perforated duodenal ulcer A/P Fabrizio patch: He had a catscan yesterday which showed decreased collections. His ramon was removed (it had been in for >40 days) and replaced with a new one. New Ramon Day 8. Micro is shoiwng the body cx with VRE and respiratory cx with VRE. Repeat sputum cx on 08/02 shows GPC and mold. A repeat swab of the draining wound on abdomen showed E. coli and Beta strep Group B. BCx negative to date. Negative aspergillus antibody. H.pylori negative. Aug 08 body cx growing enterobacter aerogenes. Respiratory cx on 08/08 enterobacter aerogenes and staph aureus. * D/C Meropenem 07/30 and D/C Cubicin Day 08/01. * As per ID recomendations will conitune follow the patient off antibiotics, Antibiotics discontinued on 08/24/2017. * Follow-up on pending repeat culture results * Continue on PRN fentanyl for sedation. * Continue Protonix IV 40 mg twice a day * Octreotide SC 100 mcg TID * Surgery following, await dressing change. * Trach placed 08/23, will continue trach care as per instructions, PSV trials to continue. Will attempt mask trials . * Pt LLQ drain removed 08/23 * Repeat C-Xray is currently Pending. History of PAF on Tikosyn * Continue to hold the Tikosyn * Appreciate cardiology recs * Con't Coreg 3.125 MG BID. * Patient started on Amiodarone 400 mg BID 08/27/2017 DM: * Goal glucose between [id number]. * FSGs were:154,210, 184 * Appreciate endocrinology recommendation. * Con't FS * Con't RISS as per scale. Continue Levemir 16 units BID. USMAN: RESOLVED. Hyponatremia: RESOLVED. Guarded prognosis DNR Nothing by mouth DVT prophylaxis with subcutaneous heparin Problem List: 1. Peritonitis Pain Ratin Tomorrow's Labs & Rationales: CBC: Monitor H/H in the setting of acute illness ICU Bundle: Monitor electrolytes Plan DVT/Prophylaxis: mechanical, pharmacological
--- NOTE | 2017-08-28 10:23 | PN- Pulmonary ---
Subjective HPI/Critical Care Issues: Patient remains hemodynamically stable on mechanical ventilation. He is tolerating CPAP pressure support weaning Objective Current Medications: Current Medications Sig/Buck Start time Last Medication Dose Route Stop Time Status Admin Acetaminophen 1,000 MG Q6P PRN 07/16 0530 AC 07/20 N/A 1 UNIT IV 0659 Albuterol Sulfate 3 ML EVERY 4 HRS/AWAKE 07/27 0800 AC 08/28 INH 0838 Amiodarone HCl 400 MG BID 08/27 2200 AC 08/28 PO 1008 Aspirin 81 MG DAILY 08/16 2345 AC 08/28 PO 1009 Atorvastatin Calcium 40 MG 1700 08/16 1700 AC 08/27 PO 1604 Budesonide/ 2 PUF BID 07/26 1056 AC 08/28 Formoterol Fumarate INH 0839 Carvedilol 3.125 MG BID 07/28 1000 AC 08/28 PO 1008 Fentanyl Citrate 25 MCG Q4P PRN 08/05 2130 AC 08/27 IV 0026 Glycerin 2 SPRAY Q2P PRN 08/10 0445 AC 08/27 PO 1028 Heparin Sodium 5,000 UNIT Q8 08/05 1400 AC 08/28 (Porcine) SC 0536 Insulin Aspart 0 Q6 08/27 1800 AC 08/28 SC 0539 Insulin Aspart 0 Q4 07/25 1000 DC 08/27 SC 1027 Insulin Detemir 16 UNITS BID 08/25 1000 AC 08/28 SC 1010 Lidocaine 1 GENE BID PRN 08/25 0845 AC 08/25 TOP 1029 Octreotide Acetate 100 MCG TID 08/25 1226 AC 08/28 SC 1009 Pantoprazole Sodium 40 MG BID 07/10 1016 AC 08/28 IV 1009 Vital Signs & I&O Last 24 Hrs of Vitals and I&O: Vital Signs Date Time Temp Pulse Resp B/P B/P Pulse O2 O2 Flow FiO2 Mean Ox Delivery Rate 08/28 1008 71 152/70 08/28 1008 71 152/70 08/28 0800 97.5 71 21 128/64 98 Ventilator 40% 08/28 0800 99 Ventilator 40% 08/28 0631 40 08/28 0406 40 08/28 0400 95 Ventilator 40% 08/28 0110 40 08/28 0000 92 Ventilator 40% 08/27 2300 98.0 68 17 102/50 92 Ventilator 40% 08/27 2218 40 08/27 2134 72 116/62 12/23 2133 70 116/62 08/27 2036 40 08/27 2000 98 Ventilator 40% 08/27 1600 98.6 74 21 110/60 99 Ventilator 30% 08/27 1600 95 Ventilator 30% 08/27 1556 30 08/27 1348 30 08/27 1200 95 Ventilator 30% 08/27 1158 30 08/27 1027 69 96/54 Intake & Output 08/28 1600 08/28 0800 08/28 0000 Intake Total 797 948 Output Total 1019 1015 Balance -222 -67 Intake, IV 0 60 Intake, Oral 0 0 Intake, Tube 717 688 Feeding Intake, Tube 80 200 Irrigant Number 1 Bowel Movements Output, 325 525 Drainage Output, 0 Gastric Drainage Output, Other 20 10 Output, Stool 300 80 Output, Urine 374 400 Oxygen saturation 99% FiO2 0.4 exam for chest shows diminished breath sounds occasional rhonchi cardiac exam shows regular S1 and S2 without murmurs. X-ray is unchanged Impression/Plan Impression/Plan Impression/Plan: 76-year-old with bowel perforation with persistent respiratory failure. His overall status remains unchanged. limit initial CPAP pressure support trial to 30 minutes taper FiO2 with improved saturations. if CPAP trials are tolerated can repeat later this afternoon Recommendations: Minimize sedation in hopes of improved mental status continue current ventilatory support repeat chest x-ray
--- NOTE | 2017-08-28 13:41 | RADIOLOGY REPORT ---
EXAMINATION: XR PORTABLE CHEST CLINICAL INFORMATION: Consolidation. COMPARISON: None TECHNIQUE: Portable AP view of the chest was obtained FINDINGS: Patient has an obese body habitus and the chest is not completely included in the [id number]. The tracheostomy tube remains in satisfactory position. An enteric tube courses along the esophagus; the tip of the tube is not visualized. The right arm peripherally inserted catheter extends into the superior vena cava but the tip of the catheter is difficult to visualize. There is a left prepectoral cardiac pacemaker/AICD with leads extending to the right atrium and ventricle, although the ventricular lead is excluded from the [id number]. There is a stable appearance of the large cardiac silhouette. Persistent small bilateral pleural effusions and bibasilar pulmonary opacities are without appreciable interval change. No pneumothorax. IMPRESSION: 1. Cardiomegaly without pulmonary edema. 2. Small bilateral pleural effusions and basilar pulmonary opacities from atelectasis and/or consolidation, not appreciably changed from 06/27/2017.
[2017-08-28 16:00] VITALS: BP 120/60
[2017-08-29] VITALS: BP 110/70
[2017-08-29 04:51] LABS: ABSOLUTE BASOPHIL COUNT 0 /CUMM (0.0-0.2); ABSOLUTE EOSINOPHIL COUNT 0.1 /CUMM (0.0-0.7); ABSOLUTE GRANULOCYTE CT 4.9 /CUMM (1.4-6.5); ABSOLUTE LYMPH COUNT 2.5 /CUMM (1.2-3.4); ABSOLUTE MONOCYTE COUNT 0.6 /CUMM (0.10-0.60); BASOPHIL % 0.6 % (0.0-2.0); EOSINOPHIL % 1.7 % (0-5); GRANULOCYTE % 59.5 % (42.2-75.2); HEMATOCRIT 28.9 % (42-52); MEAN CORPUSCULAR HGB 30.3 PG (27.0-31.0); MEAN CORPUSCULAR HGB CONC 31.6 G/DL (33.0-37.0); MEAN PLATELET VOLUME 8.5 FL (7.4-10.4); PLATELET COUNT 222 /CUMM (130-400); RBC DISTRIBUTION WIDTH 23.5 % (11.5-14.5); RED BLOOD CELL CT 3.01 /CUMM (4.70-6.10); WHITE BLOOD CELL COUNT 8.2 /CUMM (4.8-10.8)
[2017-08-29 08:00] VITALS: BP 112/70
--- NOTE | 2017-08-29 10:06 | PN- Pulmonary ---
Subjective HPI/Critical Care Issues: Patient remains ventilated via tracheostomy. Objective Current Medications: Current Medications Sig/Buck Start time Last Medication Dose Route Stop Time Status Admin Acetaminophen 1,000 MG Q6P PRN 07/16 0530 AC 07/20 N/A 1 UNIT IV 0659 Albuterol Sulfate 3 ML EVERY 4 HRS/AWAKE 07/27 0800 AC 08/29 INH 0924 Amiodarone HCl 400 MG BID 08/27 2200 AC 08/29 PO 0859 Aspirin 81 MG DAILY 08/16 2345 AC 08/29 PO 0859 Atorvastatin Calcium 40 MG 1700 08/16 1700 AC 08/28 PO 1645 Budesonide/ 2 PUF BID 07/26 1056 AC 08/29 Formoterol Fumarate INH 0931 Carvedilol 3.125 MG BID 07/28 1000 AC 08/29 PO 0900 Fentanyl Citrate 25 MCG Q4P PRN 08/05 2130 AC 08/27 IV 0026 Glycerin 2 SPRAY Q2P PRN 08/10 0445 AC 08/27 PO 1028 Heparin Sodium 5,000 UNIT Q8 08/05 1400 AC 08/29 (Porcine) SC 0557 Insulin Aspart 0 Q6 08/27 1800 AC 08/29 SC 0557 Insulin Detemir 16 UNITS BID 08/25 1000 AC 08/29 SC 0900 Lidocaine 1 GENE BID PRN 08/25 0845 AC 08/25 TOP 1029 Magnesium Oxide 400 MG BID 08/28 1216 AC 08/29 PO 0859 Magnesium Sulfate 1 GM Q2H 08/28 1215 CAN Dextrose/Water 100 ML IV 08/28 1614 Octreotide Acetate 100 MCG TID 08/25 1226 AC 08/29 SC 0859 Pantoprazole Sodium 40 MG BID 07/10 1016 AC 08/29 IV 0859 Potassium Chloride 20 MEQ ONCE ONE 08/28 1245 DC 08/28 PO 08/28 1246 1347 Potassium Chloride 40 MEQ ONCE ONE 08/28 1230 CAN PO 08/28 1231 Potassium Chloride 10 MEQ Q1H 08/28 1215 CAN IV 08/28 1316 Vital Signs & I&O Last 24 Hrs of Vitals and I&O: Vital Signs Date Time Temp Pulse Resp B/P B/P Pulse O2 O2 Flow FiO2 Mean Ox Delivery Rate 08/29 0900 72 109/58 08/29 0859 117/63 08/29 0757 35 08/29 0536 35 08/29 0400 98 Ventilator 35% 08/29 0235 35 08/29 0132 35 08/29 0000 99.5 69 17 110/70 97 Ventilator 35% 08/29 0000 97 Ventilator 35% 08/28 2238 35 08/28 2147 98.2 71 23 116/59 08/28 2147 98.2 71 23 116/56 08/28 2000 96 Ventilator 35% 08/28 1923 35 08/28 1646 35 08/28 1600 94 Ventilator 35% 08/28 1600 96.9 72 20 120/60 97 Ventilator 35% 08/28 1422 35 08/28 1235 35 08/28 1200 96 Ventilator 35% 08/28 1008 71 152/70 08/28 1008 71 152/70 Intake & Output 08/29 1600 08/29 0800 08/29 0000 Intake Total 773 820 Output Total 1465 650 Balance -692 170 Intake, Other 60 Intake, Tube 718 680 Feeding Intake, Tube 55 80 Irrigant Output, 250 250 Drainage Output, 0 Gastric Drainage Output, Other 765 Output, Stool 0 Output, Urine 450 400 And saturation 35% 98% of his chest shows occasional rhonchi cardiac exam shows regular S1 and S2 without murmurs Impression/Plan Impression/Plan Impression/Plan: 76-year-old with bowel perforation with persistent respiratory failure. His overall status remains unchanged. limit initial CPAP pressure support trial to 30 minutes taper FiO2 with improved saturations. Patient became tachypnea To 30 minutes of CPAP yesterday. Recommendations: Minimize sedation in hopes of improved mental status continue current ventilatory support repeat CPAP trials but limited to 15-20 minutes.
[2017-08-29 12:00] VITALS: BP 112/60
--- NOTE | 2017-08-29 14:03 | PN- Cardiology ---
Subjective Subjective: * No complaints * occasional PVC's with no ventricular tachycardia since beginning Amiodarone Objective Vital Signs and I&Os Vital Signs Date Time Temp Pulse Resp B/P B/P Pulse O2 O2 Flow FiO2 Mean Ox Delivery Rate 08/29 1200 100 Ventilator 35% 08/29 1035 35 08/29 0900 72 109/58 08/29 0859 117/63 08/29 0800 98 Ventilator 35% 08/29 0757 35 08/29 0536 35 08/29 0400 98 Ventilator 35% 08/29 0235 35 08/29 0132 35 08/29 0000 99.5 69 17 110/70 97 Ventilator 35% 08/29 0000 97 Ventilator 35% 08/28 2238 35 08/28 2147 98.2 71 23 116/59 08/28 2147 98.2 71 23 116/56 08/28 2000 96 Ventilator 35% 08/28 1923 35 08/28 1646 35 08/28 1600 94 Ventilator 35% 08/28 1600 96.9 72 20 120/60 97 Ventilator 35% 08/28 1422 35 Intake & Output 08/29 1600 08/29 0800 08/29 0000 08/28 1600 08/28 0800 08/28 0000 Intake Total 773 820 860 797 948 Output Total 1465 782 112 9414 1015 Balance -692 170 180 -222 -67 Intake, IV 30 0 60 Intake, Oral 0 0 Intake, Other 60 Intake, Tube 718 680 670 717 688 Feeding Intake, Tube 55 80 160 80 200 Irrigant Number 0 1 Bowel Movements Output, 250 250 280 325 525 Drainage Output, 0 0 Gastric Drainage Output, Other 765 20 10 Output, Stool 0 300 80 Output, Urine 450 400 400 374 400 Physical Exam: General: WD/obese male in NAD; awake and responsive Neck: No JVD, no bruits Lungs: Clear to auscultation anteriorly Heart: RRR with 2/6 systolic murmur Abdomen: Soft, distended, nontender, positive bowel sounds with bandaged incision Extremities: no lower extremity edema. Assessment/Plan Assessment/Plan * This patient has occasional PVC's without any runs of ventricular tachycardia since beginning Amiodarone. Continue Amiodarone at 400mg BID for a week and then change to 200mg daily. Continue telemetry? Yes
--- NOTE | 2017-08-29 15:24 | PN- Resident CRCU ---
Subjective HPI/CRCU Issues: Septic shock secondary to perforated duodenal ulcer A/P Fabrizio patch Respiratory failure status post tracheostomy History of PAF on Tikosyn 24 Hour Events: Mr Walls was seen and examined this morning. Resting comfrotably in bed. Unable to provide much of a history. Patient became tachypnic to 30 minutes of CPAP yesterday.Found to be anuric this morning. Fluids increased 150 ML per hour. T: 98.9. HR: 63-82. Resp: 17-28. BP: 82/51-142/68. Vent: AC 10/500/35/5 Intake: 1690 Output: 2365 Perc Drain #1: 750 Perc drain #2 0 Objective Vital Signs & I&O Last 8 Hrs of Vitals and I&O: Intake & Output 08/29 1600 Intake Total 917 Output Total 900 Balance 17 Intake, IV 40 Intake, Oral 0 Intake, Tube 732 Feeding Intake, Tube 145 Irrigant Output, 500 Drainage Output, Urine 400 Exam General Appearance: sedated, intubated, lethargic Head: atraumatic, normal appearance Ears, Nose, Throat: normal pharynx Neck: normal inspection, tracheostomy secured Respiratory: no respiratory distress, ooccasional rhonchi Cardiovascular: regular rate/rhythm, systolic murmur Gastrointestinal: normal bowel sounds, soft, abdominal incision clean and dry Extremities: no edema Weaning Parameters NIF: 14 Minute Volume: 15.2 Resp rate: 30 Vt: 507 Heart Rate: 73 Weaning Schedule Start Time: 1258 Minute Volume: 13.0 Resp Rate: 29 Vt: 449 Heart Rate: 72 End Time: 1320 Minute Volume: 11.1 Resp Rate: 28 Vt: 398 Heart Rate: 74 Nutrition Nutrition: tube feeding Current Medications: Current Medications Sig/Buck Start time Last Medication Dose Route Stop Time Status Admin Acetaminophen 1,000 MG Q6P PRN 07/16 0530 AC 07/20 N/A 1 UNIT IV 0659 Albuterol Sulfate 3 ML EVERY 4 HRS/AWAKE 07/27 0800 AC 08/29 INH 1956 Amiodarone HCl 400 MG BID 08/27 2200 AC 08/29 PO 2142 Aspirin 81 MG DAILY 08/16 2345 AC 08/29 PO 0859 Atorvastatin Calcium 40 MG 1700 08/16 1700 AC 08/29 PO 1614 Budesonide/ 2 PUF BID 07/26 1056 AC 08/29 Formoterol Fumarate INH 2137 Carvedilol 3.125 MG BID 07/28 1000 AC 08/29 PO 214 Fentanyl Citrate 25 MCG Q4P PRN 08/05 2130 AC 08/27 IV 0026 Glycerin 2 SPRAY Q2P PRN 08/10 0445 AC 08/27 PO 1028 Heparin Sodium 5,000 UNIT Q8 08/05 1400 AC 08/30 (Porcine) SC 0542 Insulin Aspart 0 Q6 08/27 1800 AC 08/30 SC 0600 Insulin Detemir 16 UNITS BID 08/25 1000 AC 08/29 SC 2205 Lidocaine 1 GENE BID PRN 08/25 0845 AC 08/25 TOP 1029 Magnesium Oxide 400 MG BID 08/28 1216 AC 08/29 PO 214 Octreotide Acetate 100 MCG TID 08/29 2200 AC 08/29 IV 220 Octreotide Acetate 100 MCG TID 08/25 1226 DC 08/29 SC 1614 Pantoprazole Sodium 40 MG BID 07/10 1016 AC 08/29 IV 220 Impression/Plan Impression/Problem List Impression: This is a 76-year-old male with past medical history of CAD with HFrEF, A. fib, AICD, previous infection of the hip with prolonged antibiotic, history of peptic ulcer disease, diabetes, nephrolithiasis who was transferred to the ICU for perforation of the duodenum with septic shock S/P repair with patch. Repeated CT of the abdomen performed on 07/15 revealed free air/extravasation of contrast into the peritoneal cavity and he was taken to the OR for ex-lap and had re- repair of duodenal ulcer with Fabrizio patch. He remained intubated with subsequent wean trials and extubated on 07/23/2017, unfortunately he was re- intubated on 07/26/2017 as the patient was desaturating. On 08/23 patient had a trach placed. Plan #Septic shock secondary to perforated duodenal ulcer A/P Fabrizio patch and persistent respiratory failure status post tracheostomy. His ramon was removed 08/22/2017 (it had been in for >40 days) and replaced with a new one. New Ramon Day 9. Micro cx with VRE and respiratory cx with VRE. Repeat sputum cx on 08/02 shows GPC and mold. A repeat swab of the draining wound on abdomen showed E. coli and Beta strep Group B. BCx negative to date. Negative aspergillus antibody. H.pylori negative. Aug 08 body cx growing enterobacter aerogenes. Respiratory cx on 08/08 enterobacter aerogenes and staph aureus. * D/C Meropenem 07/30 and D/C Cubicin Day 08/01. * As per ID recomendations will conitune follow the patient off antibiotics, Antibiotics discontinued on 08/24/2017. * Follow-up on pending repeat culture results * Continue on PRN fentanyl for sedation. * Continue Protonix IV 40 mg twice a day * Octreotide SC 100 mcg TID * Surgery following, await dressing change. * Trach placed 08/23, will continue trach care as per instructions, PSV trials to continue. Will attempt mask trials . * Pt LLQ drain removed 08/23 * Repeat chest x-ray on 08/28/2017 shows cardiomegaly without pulmonary edema. Bilateral pulmonary opacity/atelectasis/consolidation unchanged from 08/27 2017 History of PAF on Tikosyn * Continue to hold the Tikosyn * Occasional PVC's with no ventricular tachycardia since beginning Amiodarone * We will continue amiodarone 400 twice a day for 1 week(until 09/02/2017) and then plan to switch to 200 daily * Con't Coreg 3.125 MG BID. DM: * Goal glucose between [id number]. * FSGs were: 156, 156, 162 * Appreciate endocrinology recommendation. * Con't FS * Continue Levemir 16 twice a day USMAN: RESOLVED. Hyponatremia: RESOLVED. Guarded prognosis DNR Nothing by mouth DVT prophylaxis with subcutaneous heparin Problem List: 1. Respiratory failure 2. Duodenal ulcer with perforation 3. Peritonitis Pain Ratin Tomorrow's Labs & Rationales: CBCs ICU bundle Plan DVT/Prophylaxis: mechanical, pharmacological
[2017-08-29 16:00] VITALS: BP 122/70
[2017-08-30] VITALS: BP 112/60
[2017-08-30 05:09] LABS: ABSOLUTE BASOPHIL COUNT 0 /CUMM (0.0-0.2); ABSOLUTE EOSINOPHIL COUNT 0.1 /CUMM (0.0-0.7); ABSOLUTE GRANULOCYTE CT 4.5 /CUMM (1.4-6.5); ABSOLUTE LYMPH COUNT 2.6 /CUMM (1.2-3.4); ABSOLUTE MONOCYTE COUNT 0.6 /CUMM (0.10-0.60); BASOPHIL % 0.5 % (0.0-2.0); EOSINOPHIL % 1.4 % (0-5); GRANULOCYTE % 57.7 % (42.2-75.2); HEMATOCRIT 30.3 % (42-52); MEAN CORPUSCULAR HGB 30.8 PG (27.0-31.0); MEAN CORPUSCULAR HGB CONC 31.9 G/DL (33.0-37.0); MEAN CORPUSCULAR VOLUME 96.7 FL (80.0-94.0); PLATELET COUNT 239 /CUMM (130-400); RED BLOOD CELL CT 3.13 /CUMM (4.70-6.10); WHITE BLOOD CELL COUNT 7.8 /CUMM (4.8-10.8)
[2017-08-30 08:00] VITALS: BP 118/70
--- NOTE | 2017-08-30 08:22 | RADIOLOGY REPORT ---
EXAMINATION: XR PORTABLE CHEST CLINICAL INFORMATION: 76-year-old male with tracheostomy tube and shortness of breath. COMPARISON: 08/28/2017 and 08/27/2017 TECHNIQUE: Portable frontal view of the chest was obtained. FINDINGS: Tracheostomy tube turns approximately 4 cm above the kika, unchanged. Dual-lead left-sided AICD is in stable position. Right-sided PICC is again noted and unchanged. Patient is status post CABG, sternotomy wires appear intact. Stable cardiomediastinal silhouette. Low lung volumes. No significant change in small bilateral pleural effusions and probable mild bibasilar atelectasis, left greater than right. No pneumothorax. No acute osseous abnormality. IMPRESSION: 1. Tracheostomy tube appears in proper position. 2. No significant interval change in low lung volumes, small bilateral pleural effusions and associated bibasilar atelectasis.
--- NOTE | 2017-08-30 09:26 | PN- CRCU ---
Subjective HPI/Critical Care Issues: Doing poorly Objective Current Medications: Current Medications Sig/Buck Start time Last Medication Dose Route Stop Time Status Admin Acetaminophen 1,000 MG Q6P PRN 07/16 0530 AC 07/20 N/A 1 UNIT IV 0659 Albuterol Sulfate 3 ML EVERY 4 HRS/AWAKE 07/27 0800 AC 08/30 INH 0855 Amiodarone HCl 400 MG BID 08/27 2200 AC 08/29 PO 2142 Aspirin 81 MG DAILY 08/16 2345 AC 08/29 PO 0859 Atorvastatin Calcium 40 MG 1700 08/16 1700 AC 08/29 PO 1614 Budesonide/ 2 PUF BID 07/26 1056 AC 08/30 Formoterol Fumarate INH 0855 Carvedilol 3.125 MG BID 07/28 1000 AC 08/29 PO 2142 Fentanyl Citrate 25 MCG Q4P PRN 08/05 2130 AC 08/27 IV 0026 Glycerin 2 SPRAY Q2P PRN 08/10 0445 AC 08/27 PO 1028 Heparin Sodium 5,000 UNIT Q8 08/05 1400 AC 08/30 (Porcine) SC 0542 Insulin Aspart 0 Q6 08/27 1800 AC 08/30 SC 0600 Insulin Detemir 16 UNITS BID 08/25 1000 AC 08/29 SC 2205 Lidocaine 1 GENE BID PRN 08/25 0845 AC 08/25 TOP 1029 Magnesium Oxide 400 MG BID 08/28 1216 AC 08/29 PO 2142 Octreotide Acetate 100 MCG TID 08/29 2200 AC 08/29 IV 2204 Octreotide Acetate 100 MCG TID 08/25 1226 DC 08/29 SC 1614 Pantoprazole Sodium 40 MG BID 07/10 1016 AC 08/29 IV 2204 Vital Signs & I&O Last 24 Hrs of Vitals and I&O: Vital Signs Date Time Temp Pulse Resp B/P B/P Pulse O2 O2 Flow FiO2 Mean Ox Delivery Rate 08/30 0905 35 08/30 0630 35 08/30 0400 96 Ventilator 35% 08/30 0342 3.5 08/30 0020 35 08/30 0000 95 Ventilator 35% 08/30 0000 96.9 69 18 112/60 95 Ventilator 35% 08/29 2208 35 08/29 2142 70 16 117/60 08/29 2142 70 16 117/60 08/29 2000 98 Ventilator 35% 08/29 1915 35 08/29 1625 35 08/29 1600 98 Ventilator 35% 08/29 1600 98.5 70 16 122/70 98 Ventilator 35% 08/29 1415 35 08/29 1200 97.9 70 17 112/60 100 Ventilator 35% 08/29 1200 100 Ventilator 35% 08/29 1035 35 Intake & Output 08/30 1600 08/30 0800 08/30 0000 Intake Total 486 824 Output Total 715 730 Balance -229 94 Intake, IV 40 Intake, Tube 406 719 Feeding Intake, Tube 80 65 Irrigant Output, 100 260 Drainage Output, Other 200 Output, Urine 415 470 Impression/Plan Impression/Plan Impression/Plan: Afebrile. s/p trach bovona 8 Skin reveals no rash. HEENT negative. Neck supple with no adenopathy; Picc line in place Lungs decreased breath sounds bilaterally. Heart regular rhythm with no murmur. Abdomen is obese, distended, tender to palpation, Incision noted with a gabriela drain in the rt side, feeding tube on the left side with ongoing drainage Extremities superficial ulcerations over the anterior tibial aspects of both legs, with 1+ edema bilaterally. Neuro is without focality. 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 with prolonged antibiotic, previous history of peptic ulcer disease, diabetes, sinus rhythm upon admission was on Tikosyn, hyperlipidemia, apparently has never smoked before, previous history of lithotripsy, CABG, previous hip prosthesis infection status post removal of prosthesis in early 2016 now has the following issues * S/p Perf large DU ulcer s/p surg with unsuccessful du repair with peritonitis, persistant leak / now has sig gabriela drainage with ng suction and somatostatin / Patient now has significant fluid collection in the right paracolic gutter reinsertion of pig tail with prob has necrotizing fascitis of the abd wall mild * S/p Severe shock septic on multiple pressors now off pressors, with ongoing intraabd sepsis and prob atx and pna * Hypoxic respiratory failureSputum does have enterobacter and staph / s/p trach 08/23 * Sig drainage from the gabriela biliary leak and fluid collection which is ongoing/ with fluid collection which is pyogenic * Significant ischemic heart disease with low ejection fraction high risk for fluid overload. Previous pafib in sinus now with a pacer and AICD. 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 * H/O LIAM was on cpap * On stress dose steroids now being weaned off * On and off diarrhea * CT reviewed pt has a stroke and sig sinusitis * s/p trach RECOMMENDATION * COnt current care and off antibiotics per ID * Do not do unnecessary xrays unless it is needed * Intravenous pantoprazole * Heparin subcutaneous * Octreotide sub cut * Watch off abx * Trach care as per protocol / Can cont psv trials and trach mask trials if katarina daily / DNR Prognosis is poor and multiple meeting held with the nephew who is aware of porr prognosis
--- NOTE | 2017-08-30 09:45 | PN- Infect Dx ---
Subjective Subjective: Afebrile. He does not provide any complaints but is quite lethargic. Objective Last 24 Hrs of Vital Signs/I&O Vital Signs Date Time Temp Pulse Resp B/P B/P Pulse O2 O2 Flow FiO2 Mean Ox Delivery Rate 08/30 0905 35 08/30 0800 97.1 70 20 118/70 97 Ventilator 35% 08/30 0630 35 08/30 0400 96 Ventilator 35% 08/30 0342 3.5 08/30 0020 35 08/30 0000 95 Ventilator 35% 08/30 0000 96.9 69 18 112/60 95 Ventilator 35% 08/29 2208 35 08/29 2142 70 16 117/60 08/29 2142 70 16 117/60 08/29 2000 98 Ventilator 35% 08/29 1915 35 08/29 1625 35 08/29 1600 98 Ventilator 35% 08/29 1600 98.5 70 16 122/70 98 Ventilator 35% 08/29 1415 35 08/29 1200 97.9 70 17 112/60 100 Ventilator 35% 08/29 1200 100 Ventilator 35% 08/29 1035 35 Intake & Output 08/30 1600 08/30 0800 08/30 0000 Intake Total 486 824 Output Total 715 730 Balance -229 94 Intake, IV 40 Intake, Tube 406 719 Feeding Intake, Tube 80 65 Irrigant Output, 100 260 Drainage Output, Other 200 Output, Urine 415 470 Physical Exam Other Physical Findings: He is lethargic, minimally responsive, on the ventilator Lungs scattered rhonchi bilaterally Heart regular rhythm with no murmur Abdomen is mildly distended, with no obvious tenderness, positive bowel sounds; 2 right-sided catheters in place with 255 mL output from drain #1 and 5 mL output from drain #2 yesterday Extremities no cyanosis, clubbing or edema; PICC in the right upper extremity with no inflammation at the site Duvall catheter remains in place Results Last 24 Hours of Lab Results: Laboratory Tests 08/30 08/30 0520 0410 Blood Gas pH (7.35 - 7.45 PH) 7.45 pCO2 (35 - 45 TORR) 32 L pO2 (80 - 100 TORR) 103 H HCO3 (21 - 28 MEQ/L) 22 ABG O2 Sat (Measured) (>96.0 %) 97.0 P-50 (Temp Corrected) Y Carboxyhemoglobin (1.5 - 5.0 %) 0.3 L O2 Concentration % 35% Temperature (97.0 - 100.0 FARH) 96.8 L Respiration Rate (BPM) 10 O2 Delivery Method ESPRIT Vent Mode AC Expiratory Pressure (CMH2O/P) 5 Tidal Volume (CC) 500 Chemistry Sodium (137 - 145 mmol/L) 145 Potassium (3.5 - 5.1 mmol/L) 4.0 Chloride (98 - 107 mmol/L) 113 H Carbon Dioxide (22 - 30 mmol/L) 24 Anion Gap (5 - 16) 8 BUN (9 - 20 mg/dL) 23 H Creatinine (0.7 - 1.2 mg/dL) 0.5 L Estimated GFR (>60 ml/min) > 60 Glucose (65 - 99 mg/dL) 137 H Calcium (8.4 - 10.2 mg/dL) 8.1 L Phosphorus (2.5 - 4.5 mg/dL) 3.4 Magnesium (1.6 - 2.3 mg/dL) 1.8 Total Bilirubin (0.2 - 1.3 mg/dL) 0.4 AST (17 - 59 U/L) 60 H ALT (21 - 72 U/L) 52 Albumin (3.5 - 5.0 g/dL) 2.0 L Hematology CBC w Diff MAN DIFF ORDERED WBC (4.8 - 10.8 /CUMM) 7.8 RBC (4.70 - 6.10 /CUMM) 3.13 L Hgb (14.0 - 18.0 G/DL) 9.6 L Hct (42 - 52 %) 30.3 L MCV (80.0 - 94.0 FL) 96.7 H MCH (27.0 - 31.0 PG) 30.8 RDW (11.5 - 14.5 %) 23.0 H Plt Count (130 - 400 /CUMM) 239 MPV (7.4 - 10.4 FL) 9.0 Gran % (42.2 - 75.2 %) 57.7 Lymphocytes % (20.5 - 51.1 %) 33.1 Monocytes % (1.7 - 9.3 %) 7.3 Eosinophils % (0 - 5 %) 1.4 Basophils % (0.0 - 2.0 %) 0.5 Absolute Granulocytes (1.4 - 6.5 /CUMM) 4.5 Segmented Neutrophils (42.2 - 75.2 %) 50 Band Neutrophils (0.0 - 5.0 %) 8 H Absolute Lymphocytes (1.2 - 3.4 /CUMM) 2.6 Lymphocytes (20.5 - 51.1 %) 28 Monocytes (1.7 - 9.3 %) 6 Absolute Monocytes (0.10 - 0.60 /CUMM) 0.6 Eosinophils (0 - 5.0 %) 3 Absolute Eosinophils (0.0 - 0.7 /CUMM) 0.1 Basophils (0.0 - 2.0 %) 1 Absolute Basophils (0.0 - 0.2 /CUMM) 0 Metamyelocytes (0.0 - 1.0 %) 3 H Myelocytes (0 - 0 %) 1 H Platelet Estimate (ADEQUATE) ADEQUATE Polychromasia 1+ Poikilocytosis 1+ Anisocytosis 2+ Stomatocytes 1+ Elliptocytes 1+ PUBS MCHC (33.0 - 37.0 G/DL) 31.9 L Miscellaneous Phlebotomy Draw Site LEFT RADIAL Last 24 Hours of Les Results: No new cultures Recent Imaging Studies: Chest x-ray August 30, personally reviewed, reveals no change in the bibasilar densities Assessment/Plan Impression: Remains stable, though overall status and prognosis remain poor. He remains afebrile with white blood cell count remaining normal off antibiotics for nearly one week, now 15 days status post drainage of 2 right sided collections, 45 days status post unsuccessful duodenal repair and 52 days status post his initial surgery for a perforated duodenal ulcer. Suggestion: 1. Remove Duvall catheter 2. Continue to follow off antibiotics Will no longer follow at this time, but please call with any questions
--- NOTE | 2017-08-30 10:03 | PN- Resident CRCU ---
Subjective HPI/CRCU Issues: Septic shock secondary to perforated duodenal ulcer A/P Fabrizio patch Respiratory failure status post tracheostomy History of PAF on Tikosyn 24 Hour Events: Mr Walls was seen and examined this morning. Resting comfrotably in bed. Unable to provide much of a history. Patient continues to become tachypnic to with CPAP trials. MAXIMUM TEMPERATURE: 98.5,pulse 73, respiration 16, saturating 96% on 35% FiO2 Vent: AC 10/500/35/5 Intake: 486 Output: 715 Perc Drain #B: 255ML Perc drain #C 5ML Objective Vital Signs & I&O Last 8 Hrs of Vitals and I&O: 00 Exam General Appearance: sedated, intubated, lethargic Ears, Nose, Throat: TRACH IN PLACE Respiratory: decreased breath sounds Cardiovascular: regular rate/rhythm Gastrointestinal: normal bowel sounds, WILLEM DRAIN ON THE LEFT, FEEDING TUBE ON THE RIGHT Extremities: TRACE BIPEDAL EDEMA Skin: ULCERS OVER SHINS BILATERALLY Weaning Parameters NIF: 14 Minute Volume: 15.2 Resp rate: 30 Vt: 507 Heart Rate: 73 Weaning Schedule Start Time: 1258 Minute Volume: 13.0 Resp Rate: 29 Vt: 449 Heart Rate: 72 End Time: 1320 Minute Volume: 11.1 Resp Rate: 28 Vt: 398 Heart Rate: 74 Current Medications: Current Medications Sig/Buck Start time Last Medication Dose Route Stop Time Status Admin Acetaminophen 1,000 MG Q6P PRN 07/16 0530 AC 07/20 N/A 1 UNIT IV 0659 Albuterol Sulfate 3 ML EVERY 4 HRS/AWAKE 07/27 0800 AC 08/30 INH 1214 Amiodarone HCl 400 MG BID 08/27 2200 AC 08/30 PO 1021 Aspirin 81 MG DAILY 08/16 2345 AC 08/30 PO 1021 Atorvastatin Calcium 40 MG 1700 08/16 1700 AC 08/29 PO 1614 Budesonide/ 2 PUF BID 07/26 1056 AC 08/30 Formoterol Fumarate INH 0855 Carvedilol 3.125 MG BID 07/28 1000 AC 08/30 PO 1021 Fentanyl Citrate 25 MCG Q4P PRN 08/05 2130 AC 08/27 IV 0026 Glycerin 2 SPRAY Q2P PRN 08/10 0445 AC 08/27 PO 1028 Heparin Sodium 5,000 UNIT Q8 08/05 1400 AC 08/30 (Porcine) SC 1412 Insulin Aspart 0 Q6 08/27 1800 AC 08/30 SC 1238 Insulin Detemir 16 UNITS BID 08/25 1000 AC 08/30 SC 1019 Lidocaine 1 GENE BID PRN 08/25 0845 AC 08/25 TOP 1029 Magnesium Oxide 400 MG BID 08/28 1216 AC 08/30 PO 1021 Nystatin 5 ML 4 TIMES/DAY 08/30 1400 AC PO Octreotide Acetate 100 MCG TID 08/29 2200 AC 08/30 IV 1021 Octreotide Acetate 100 MCG TID 08/25 1226 DC 08/29 SC 1614 Pantoprazole Sodium 40 MG BID 07/10 1016 AC 08/30 IV 1019 Impression/Plan Impression/Problem List Impression: This is a 76-year-old male with past medical history of CAD with HFrEF, A. fib, AICD, previous infection of the hip with prolonged antibiotic, history of peptic ulcer disease, diabetes, nephrolithiasis who was transferred to the ICU for perforation of the duodenum with septic shock S/P repair with patch. Repeated CT of the abdomen performed on 07/15 revealed free air/extravasation of contrast into the peritoneal cavity and he was taken to the OR for ex-lap and had re- repair of duodenal ulcer with Fabrizio patch. He remained intubated with subsequent wean trials and extubated on 07/23/2017, unfortunately he was re- intubated on 07/26/2017 as the patient was desaturating. On 08/23 patient had a trach placed. Plan #Septic shock secondary to perforated duodenal ulcer A/P Fabrizio patch and persistent respiratory failure status post tracheostomy. Duvall DCed as per ID Micro cx with VRE and respiratory cx with VRE. Repeat sputum cx on 08/02 shows GPC and mold. A repeat swab of the draining wound on abdomen showed E. coli and Beta strep Group B. BCx negative to date. Negative aspergillus antibody. H.pylori negative. Aug 08 body cx growing enterobacter aerogenes. Respiratory cx on 08/08 enterobacter aerogenes and staph aureus. * D/C Meropenem 07/30 and D/C Cubicin Day 08/01. * Duvall DC'd today * As per ID recomendations will conitune follow the patient off antibiotics, Antibiotics discontinued on 08/24/2017. * Continue on PRN fentanyl for sedation. * Continue Protonix IV 40 mg twice a day * Octreotide SC 100 mcg TID * Surgery following, await dressing change. * Trach placed 08/23, will continue trach care as per instructions, PSV trials to continue. Will attempt mask trials . * Poor prognosis. Multiple discussions held with nephew. Patient currently DNR. * No unnecessary x-rays. History of PAF on Tikosyn * Continue to hold the Tikosyn * Occasional PVC's with no ventricular tachycardia since beginning Amiodarone * We will continue amiodarone 400 twice a day for 1 week(until 09/02/2017) and then plan to switch to 200 daily * Con't Coreg 3.125 MG BID. DM: * Goal glucose between [id number]. * FSGs were: 137, 137, 146 * Appreciate endocrinology recommendation. * Con't FS * Continue Levemir 16 twice a day USMAN: RESOLVED. Hyponatremia: RESOLVED. Guarded prognosis DNR NPO, On tube feeds DVT prophylaxis with subcutaneous heparin Problem List: 1. Respiratory failure 2. Duodenal ulcer with perforation 3. Peritonitis Pain Ratin Pain Location: NA Tomorrow's Labs & Rationales: CBC ICU BUNDLE Plan DVT/Prophylaxis: mechanical, pharmacological
--- NOTE | 2017-08-30 15:20 | PN- Diabetes ---
Assessment/Plan Assessment: 76-year-old male with Hx of CAD with low ejection fraction, atrial fibrillation, AICD, previous infection of hip with prolonged antibiotic, history of peptic ulcer disease, diabetes and renal stone, was admitted for perforation of duodenum now with septic shock in ICU. He was on 3 pressors, TPN, octreotide drip and bicarb drip. His BP remained low and stress dose of steroid was initiated despite his am cortisol was 24.8. Patient is still on octreotide drip. Patient was re-intubated on 07/26/2017. Hydrocortisone was discontinued on 08/13/2017. Repeat am cortisol was 15.8 on . He was on tube feeding with Vital 85 mL per hour, Levemir 17 units twice a day and Novolog coverage every 4 hours . Patient underwent tracheostomy on 08/23/2017 . He was restarted on tube feeding at 85 ml/hour. He was put on Levemir 16 units twice a day, Novolog coverage every 6 hours ( FSG 80-150, 8 units; FSG 151-200, 10 units, etc). His FSGs were 146, 137 and 150. Plan: continue the current insulin regimen for now; monitor FSGs; please inform endocrine if further assistance needed. Subjective Subjective: Patient is intubated Objective Last 24 Hrs of Vital Signs/I&O Vital Signs Date Time Temp Pulse Resp B/P B/P Pulse O2 O2 Flow FiO2 Mean Ox Delivery Rate 08/30 1400 35 08/30 1219 35 08/30 1200 95 Ventilator 35% 08/30 1021 69 137/65 08/30 1021 137/65 08/30 0905 35 08/30 0800 97.1 70 20 118/70 97 Ventilator 35% 08/30 0800 95 Ventilator 35% 08/30 0630 35 08/30 0400 96 Ventilator 35% 08/30 0342 3.5 08/30 0020 35 08/30 0000 95 Ventilator 35% 08/30 0000 96.9 69 18 112/60 95 Ventilator 35% 08/29 2208 35 08/29 2142 70 16 117/60 08/29 2142 70 16 117/60 08/29 2000 98 Ventilator 35% 08/29 1915 35 08/29 1625 35 08/29 1600 98 Ventilator 35% 08/29 1600 98.5 70 16 122/70 98 Ventilator 35% Intake & Output 08/30 1600 08/30 0800 08/30 0000 Intake Total 947 486 824 Output Total 680 715 730 Balance 267 -229 94 Intake, IV 30 40 Intake, Oral 0 Intake, Tube 751 406 719 Feeding Intake, Tube 160 80 65 Irrigant Number 1 Bowel Movements Output, 130 100 260 Drainage Output, 0 Gastric Drainage Output, Other 200 Output, Stool 100 Output, Urine 450 415 470 Findings Pertinent Lab/Les Results: Laboratory Tests 08/30 08/30 0520 0410 Blood Gas pH (7.35 - 7.45 PH) 7.45 pCO2 (35 - 45 TORR) 32 L pO2 (80 - 100 TORR) 103 H HCO3 (21 - 28 MEQ/L) 22 ABG O2 Sat (Measured) (>96.0 %) 97.0 P-50 (Temp Corrected) Y Carboxyhemoglobin (1.5 - 5.0 %) 0.3 L O2 Concentration % 35% Temperature (97.0 - 100.0 FARH) 96.8 L Respiration Rate (BPM) 10 O2 Delivery Method ESPRIT Vent Mode AC Expiratory Pressure (CMH2O/P) 5 Tidal Volume (CC) 500 Chemistry Sodium (137 - 145 mmol/L) 145 Potassium (3.5 - 5.1 mmol/L) 4.0 Chloride (98 - 107 mmol/L) 113 H Carbon Dioxide (22 - 30 mmol/L) 24 Anion Gap (5 - 16) 8 BUN (9 - 20 mg/dL) 23 H Creatinine (0.7 - 1.2 mg/dL) 0.5 L Estimated GFR (>60 ml/min) > 60 Glucose (65 - 99 mg/dL) 137 H Calcium (8.4 - 10.2 mg/dL) 8.1 L Phosphorus (2.5 - 4.5 mg/dL) 3.4 Magnesium (1.6 - 2.3 mg/dL) 1.8 Total Bilirubin (0.2 - 1.3 mg/dL) 0.4 AST (17 - 59 U/L) 60 H ALT (21 - 72 U/L) 52 Albumin (3.5 - 5.0 g/dL) 2.0 L Hematology CBC w Diff MAN DIFF ORDERED WBC (4.8 - 10.8 /CUMM) 7.8 RBC (4.70 - 6.10 /CUMM) 3.13 L Hgb (14.0 - 18.0 G/DL) 9.6 L Hct (42 - 52 %) 30.3 L MCV (80.0 - 94.0 FL) 96.7 H MCH (27.0 - 31.0 PG) 30.8 RDW (11.5 - 14.5 %) 23.0 H Plt Count (130 - 400 /CUMM) 239 MPV (7.4 - 10.4 FL) 9.0 Gran % (42.2 - 75.2 %) 57.7 Lymphocytes % (20.5 - 51.1 %) 33.1 Monocytes % (1.7 - 9.3 %) 7.3 Eosinophils % (0 - 5 %) 1.4 Basophils % (0.0 - 2.0 %) 0.5 Absolute Granulocytes (1.4 - 6.5 /CUMM) 4.5 Segmented Neutrophils (42.2 - 75.2 %) 50 Band Neutrophils (0.0 - 5.0 %) 8 H Absolute Lymphocytes (1.2 - 3.4 /CUMM) 2.6 Lymphocytes (20.5 - 51.1 %) 28 Monocytes (1.7 - 9.3 %) 6 Absolute Monocytes (0.10 - 0.60 /CUMM) 0.6 Eosinophils (0 - 5.0 %) 3 Absolute Eosinophils (0.0 - 0.7 /CUMM) 0.1 Basophils (0.0 - 2.0 %) 1 Absolute Basophils (0.0 - 0.2 /CUMM) 0 Metamyelocytes (0.0 - 1.0 %) 3 H Myelocytes (0 - 0 %) 1 H Platelet Estimate (ADEQUATE) ADEQUATE Polychromasia 1+ Poikilocytosis 1+ Anisocytosis 2+ Stomatocytes 1+ Elliptocytes 1+ PUBS MCHC (33.0 - 37.0 G/DL) 31.9 L Miscellaneous Phlebotomy Draw Site LEFT RADIAL
[2017-08-30 16:00] VITALS: BP 126/62
--- NOTE | 2017-08-30 18:02 | PN- General Surgery ---
Surgical Brief Attending Note Brief Attending Note: Patient seen and examined discussed with resident's and nurses, noted NG tube drainage has been nil for several days. Tolerating tube feeds having bowel movements no change in mental status no fevers drainage is the same from the abdominal incision and the percutaneous. Plan is to gently irrigate NG tube with 20 mL, and reevaluate in the morning.
[2017-08-31] VITALS: BP 116/80
[2017-08-31 04:35] LABS: ABSOLUTE BASOPHIL COUNT 0 /CUMM (0.0-0.2); ABSOLUTE EOSINOPHIL COUNT 0.1 /CUMM (0.0-0.7); ABSOLUTE GRANULOCYTE CT 5.2 /CUMM (1.4-6.5); ABSOLUTE LYMPH COUNT 2.5 /CUMM (1.2-3.4); ABSOLUTE MONOCYTE COUNT 0.7 /CUMM (0.10-0.60); BASOPHIL % 0.5 % (0.0-2.0); EOSINOPHIL % 1.4 % (0-5); GRANULOCYTE % 60.2 % (42.2-75.2); HEMATOCRIT 29.5 % (42-52); MEAN CORPUSCULAR HGB 30.8 PG (27.0-31.0); MEAN CORPUSCULAR HGB CONC 32.1 G/DL (33.0-37.0); MEAN CORPUSCULAR VOLUME 95.8 FL (80.0-94.0); MEAN PLATELET VOLUME 8.5 FL (7.4-10.4); PLATELET COUNT 232 /CUMM (130-400); RBC DISTRIBUTION WIDTH 22.7 % (11.5-14.5); RED BLOOD CELL CT 3.08 /CUMM (4.70-6.10); WHITE BLOOD CELL COUNT 8.6 /CUMM (4.8-10.8)
[2017-08-31 08:00] VITALS: BP 120/70
--- NOTE | 2017-08-31 09:04 | PN- Resident CRCU ---
Subjective HPI/CRCU Issues: Septic shock secondary to perforated duodenal ulcer A/P Fabrizio patch Respiratory failure status post tracheostomy History of PAF on Tikosyn 24 Hour Events: Mr Walls was seen and examined this morning. Resting comfrotably in bed. Unable to provide much of a history. Patient continues to become tachypnic to with CPAP trials. MAXIMUM TEMPERATURE: 99 ,pulse 70, respiration 18, saturating 99% on 30% FiO2 Vent: AC 19/500/30/5 Intake: 686 Output: 650 Perc Drain #B: 230ML Perc drain #C 5ML Objective Vital Signs & I&O Last 8 Hrs of Vitals and I&O: Intake & Output 08/31 1600 Intake Total 573 Output Total 490 Balance 83 Intake, IV 30 Intake, Oral 0 Intake, Tube 403 Feeding Intake, Tube 140 Irrigant Output, 60 Drainage Output, 0 Gastric Drainage Output, Stool 30 Output, Urine 400 Exam General Appearance: sedated, intubated, OPENED HIS EYES TO VOICE Head: atraumatic Ears, Nose, Throat: PAST TO BE IN PLACE, SECURED. ng TUBE IN PLACE Neck: normal inspection Respiratory: decreased breath sounds Cardiovascular: regular rate/rhythm Gastrointestinal: gabriela DRAIN ON THE LEFT,FEEDING TUBE ON THE RIGHT. Extremities: TRACE BIPEDAL EDEMA Weaning Parameters NIF: 27 Minute Volume: 8.97 Resp rate: 27 Vt: 330 Heart Rate: 69 Weaning Schedule Start Time: 1899 Minute Volume: 13.1 Resp Rate: 31 Vt: 422 Heart Rate: 69 End Time: 2014 Minute Volume: 12.0 Resp Rate: 34 Vt: 350 Heart Rate: 69 Current Medications: Current Medications Sig/Buck Start time Last Medication Dose Route Stop Time Status Admin Acetaminophen 1,000 MG Q6P PRN 07/16 0530 AC 07/20 N/A 1 UNIT IV 0659 Albuterol Sulfate 3 ML EVERY 4 HRS/AWAKE 07/27 0800 AC 08/31 INH 0843 Amiodarone HCl 400 MG BID 08/27 2200 AC 08/30 PO 2117 Aspirin 81 MG DAILY 08/16 2345 AC 08/30 PO 1021 Atorvastatin Calcium 40 MG 1700 08/16 1700 AC 08/30 PO 1546 Budesonide/ 2 PUF BID 07/26 1056 AC 08/30 Formoterol Fumarate INH 2218 Carvedilol 3.125 MG BID 07/28 1000 AC 08/30 PO 2118 Fentanyl Citrate 25 MCG Q4P PRN 08/05 2130 AC 08/27 IV 0026 Glycerin 2 SPRAY Q2P PRN 08/10 0445 AC 08/27 PO 1028 Heparin Sodium 5,000 UNIT Q8 08/05 1400 AC 08/31 (Porcine) SC 0547 Insulin Aspart 0 Q6 08/27 1800 AC 08/31 SC 0547 Insulin Detemir 16 UNITS BID 08/25 1000 AC 08/30 SC 2137 Lidocaine 1 GENE BID PRN 08/25 0845 AC 08/25 TOP 1029 Magnesium Oxide 400 MG BID 08/28 1216 AC 08/30 PO 2120 Nystatin 5 ML 4 TIMES/DAY 08/30 1400 AC 08/30 PO 212 Octreotide Acetate 100 MCG TID 08/29 2200 AC 08/30 IV 214 Pantoprazole Sodium 40 MG BID 07/10 1016 AC 08/30 IV 2119 Impression/Plan Impression/Problem List Impression: This is a 76-year-old male with past medical history of CAD with HFrEF, A. fib, AICD, previous infection of the hip with prolonged antibiotic, history of peptic ulcer disease, diabetes, nephrolithiasis who was transferred to the ICU for perforation of the duodenum with septic shock S/P repair with patch. Repeated CT of the abdomen performed on 07/15 revealed free air/extravasation of contrast into the peritoneal cavity and he was taken to the OR for ex-lap and had re- repair of duodenal ulcer with Fabrizio patch. He remained intubated with subsequent wean trials and extubated on 07/23/2017, unfortunately he was re- intubated on 07/26/2017 as the patient was desaturating. On 08/23 patient had a trach placed. Plan #Septic shock secondary to perforated duodenal ulcer A/P Fabrizio patch and persistent respiratory failure status post tracheostomy. Duvall DCed as per ID Micro cx with VRE and respiratory cx with VRE. Repeat sputum cx on 08/02 shows GPC and mold. A repeat swab of the draining wound on abdomen showed E. coli and Beta strep Group B. BCx negative to date. Negative aspergillus antibody. H.pylori negative. Aug 08 body cx growing enterobacter aerogenes. Respiratory cx on 08/08 enterobacter aerogenes and staph aureus. * D/C Meropenem 07/30 and D/C Cubicin Day 08/01. * Duvall continued * As per ID recomendations will conitune follow the patient off antibiotics, Antibiotics discontinued on 08/24/2017. * Continue NG tube irrigation * Continue on PRN fentanyl for sedation. * Continue Protonix IV 40 mg twice a day * Octreotide SC 100 mcg TID * Surgery following, no plan for taking patient to OR * Trach placed 08/23, will continue trach care as per instructions, PSV trials to continue. Will attempt mask trials . * Poor prognosis. Multiple discussions held with nephew. Patient currently DNR. * No unnecessary x-rays. History of PAF on Tikosyn * Continue to hold the Tikosyn * Occasional PVC's with no ventricular tachycardia since beginning Amiodarone * We will continue amiodarone 400 twice a day for 1 week(until 09/02/2017) and then plan to switch to 200 daily * Con't Coreg 3.125 MG BID. DM: * Goal glucose between [id number]. * FSGs were: 182, 182, 183 * Appreciate endocrinology recommendation. * Con't FS * Continue Levemir 16 twice a day USMAN: RESOLVED. Hyponatremia: RESOLVED. Guarded prognosis DNR NPO, On tube feeds DVT prophylaxis with subcutaneous heparin Problem List: 1. Respiratory failure 2. Duodenal ulcer with perforation 3. Peritonitis Pain Ratin Pain Location: NA Tomorrow's Labs & Rationales: CBC, ICU bundle And intubated Plan DVT/Prophylaxis: mechanical, pharmacological
--- NOTE | 2017-08-31 09:53 | PN- CRCU ---
Subjective HPI/Critical Care Issues: Mr Walls was seen and examined this morning. Resting comfrotably in bed. Unable to provide much of a history. Patient continues to become tachypnic to with CPAP trials. MAXIMUM TEMPERATURE: 99 ,pulse 70, respiration 18, saturating 99% on 30% FiO2 Vent: AC /500/30/ Intake: 686 Output: 650 Perc Drain #B: 230ML Perc drain #C 5ML Objective Current Medications: Current Medications Sig/Buck Start time Last Medication Dose Route Stop Time Status Admin Acetaminophen 1,000 MG Q6P PRN 07/16 0530 AC 07/20 N/A 1 UNIT IV 0659 Albuterol Sulfate 3 ML EVERY 4 HRS/AWAKE 07/27 0800 AC 08/31 INH 0843 Amiodarone HCl 400 MG BID 08/27 2200 AC 08/31 PO 0929 Aspirin 81 MG DAILY 08/16 2345 AC 08/31 PO 0929 Atorvastatin Calcium 40 MG 1700 08/16 1700 AC 08/30 PO 1546 Budesonide/ 2 PUF BID 07/26 1056 AC 08/31 Formoterol Fumarate INH 0905 Carvedilol 3.125 MG BID 07/28 1000 AC 08/31 PO 0929 Fentanyl Citrate 25 MCG Q4P PRN 08/05 2130 AC 08/27 IV 0026 Glycerin 2 SPRAY Q2P PRN 08/10 0445 AC 08/27 PO 1028 Heparin Sodium 5,000 UNIT Q8 08/05 1400 AC 08/31 (Porcine) SC 0547 Insulin Aspart 0 Q6 08/27 1800 AC 08/31 SC 0547 Insulin Detemir 16 UNITS BID 08/25 1000 AC 08/31 SC 0929 Lidocaine 1 GENE BID PRN 08/25 0845 AC 08/25 TOP 1029 Magnesium Oxide 400 MG BID 08/28 1216 AC 08/31 PO 0929 Nystatin 5 ML 4 TIMES/DAY 08/30 1400 AC 08/31 PO 0929 Octreotide Acetate 100 MCG TID 08/29 2200 AC 08/31 IV 0929 Pantoprazole Sodium 40 MG BID 07/10 1016 AC 08/31 IV 0929 Vital Signs & I&O Last 24 Hrs of Vitals and I&O: Vital Signs Date Time Temp Pulse Resp B/P B/P Pulse O2 O2 Flow FiO2 Mean Ox Delivery Rate 08/31 09 69 113/58 08/31 0929 69 113/68 08/31 0834 30 08/31 0800 99.0 70 18 120/70 99 Ventilator 30% 08/31 0800 96 Ventilator 30% 08/31 0529 30 08/31 0400 98 Ventilator 30% 08/31 0344 30 08/31 0038 30 08/31 0000 99.2 69 21 116/80 98 Ventilator 30% 08/31 0000 98 Ventilator 30% 08/30 2223 30 08/30 2119 98.6 69 13 137/68 08/30 2118 98.6 69 13 137/68 08/30 2000 92 Ventilator 30% 08/30 1900 30 08/30 1635 30 08/30 1600 95 Ventilator 30% 08/30 1600 98.0 69 22 126/62 98 Ventilator 35% 08/30 1400 35 08/30 1219 35 08/30 1200 95 Ventilator 35% 08/30 1021 69 137/65 08/30 1021 137/65 Intake & Output 08/31 1600 08/31 0800 08/31 0000 Intake Total 686 926 Output Total 650 660 Balance 36 266 Intake, Tube 606 671 Feeding Intake, Tube 80 255 Irrigant Output, 10 0 Drainage Output, 25 100 Gastric Drainage Output, Other 125 150 Output, Stool 50 Output, Urine 440 410 Laboratory Tests 08/31 08/30 0400 0520 Blood Gas pH (7.35 - 7.45 PH) 7.45 pCO2 (35 - 45 TORR) 32 L pO2 (80 - 100 TORR) 103 H HCO3 (21 - 28 MEQ/L) 22 ABG O2 Sat (Measured) (>96.0 %) 97.0 P-50 (Temp Corrected) Y Carboxyhemoglobin (1.5 - 5.0 %) 0.3 L O2 Concentration % 35% Temperature (97.0 - 100.0 FARH) 96.8 L Respiration Rate (BPM) 10 O2 Delivery Method ESPRIT Vent Mode AC Expiratory Pressure (CMH2O/P) 5 Tidal Volume (CC) 500 Chemistry Sodium (137 - 145 mmol/L) 145 Potassium (3.5 - 5.1 mmol/L) 4.1 Chloride (98 - 107 mmol/L) 111 H Carbon Dioxide (22 - 30 mmol/L) 25 Anion Gap (5 - 16) 8 BUN (9 - 20 mg/dL) 24 H Creatinine (0.7 - 1.2 mg/dL) 0.5 L Estimated GFR (>60 ml/min) > 60 Glucose (65 - 99 mg/dL) 148 H Calcium (8.4 - 10.2 mg/dL) 8.0 L Phosphorus (2.5 - 4.5 mg/dL) 3.2 Magnesium (1.6 - 2.3 mg/dL) 1.8 Total Bilirubin (0.2 - 1.3 mg/dL) 0.4 AST (17 - 59 U/L) 102 H ALT (21 - 72 U/L) 74 H Albumin (3.5 - 5.0 g/dL) 2.0 L Hematology CBC w Diff NO MAN DIFF REQ WBC (4.8 - 10.8 /CUMM) 8.6 RBC (4.70 - 6.10 /CUMM) 3.08 L Hgb (14.0 - 18.0 G/DL) 9.5 L Hct (42 - 52 %) 29.5 L MCV (80.0 - 94.0 FL) 95.8 H MCH (27.0 - 31.0 PG) 30.8 RDW (11.5 - 14.5 %) 22.7 H Plt Count (130 - 400 /CUMM) 232 MPV (7.4 - 10.4 FL) 8.5 Gran % (42.2 - 75.2 %) 60.2 Lymphocytes % (20.5 - 51.1 %) 29.3 Monocytes % (1.7 - 9.3 %) 8.6 Eosinophils % (0 - 5 %) 1.4 Basophils % (0.0 - 2.0 %) 0.5 Absolute Granulocytes (1.4 - 6.5 /CUMM) 5.2 Absolute Lymphocytes (1.2 - 3.4 /CUMM) 2.5 Absolute Monocytes (0.10 - 0.60 /CUMM) 0.7 H Absolute Eosinophils (0.0 - 0.7 /CUMM) 0.1 Absolute Basophils (0.0 - 0.2 /CUMM) 0 PUBS MCHC (33.0 - 37.0 G/DL) 32.1 L Miscellaneous Phlebotomy Draw Site LEFT RADIAL 08/30 0410 Chemistry Sodium (137 - 145 mmol/L) 145 Potassium (3.5 - 5.1 mmol/L) 4.0 Chloride (98 - 107 mmol/L) 113 H Carbon Dioxide (22 - 30 mmol/L) 24 Anion Gap (5 - 16) 8 BUN (9 - 20 mg/dL) 23 H Creatinine (0.7 - 1.2 mg/dL) 0.5 L Estimated GFR (>60 ml/min) > 60 Glucose (65 - 99 mg/dL) 137 H Calcium (8.4 - 10.2 mg/dL) 8.1 L Phosphorus (2.5 - 4.5 mg/dL) 3.4 Magnesium (1.6 - 2.3 mg/dL) 1.8 Total Bilirubin (0.2 - 1.3 mg/dL) 0.4 AST (17 - 59 U/L) 60 H ALT (21 - 72 U/L) 52 Albumin (3.5 - 5.0 g/dL) 2.0 L Hematology CBC w Diff MAN DIFF ORDERED WBC (4.8 - 10.8 /CUMM) 7.8 RBC (4.70 - 6.10 /CUMM) 3.13 L Hgb (14.0 - 18.0 G/DL) 9.6 L Hct (42 - 52 %) 30.3 L MCV (80.0 - 94.0 FL) 96.7 H MCH (27.0 - 31.0 PG) 30.8 RDW (11.5 - 14.5 %) 23.0 H Plt Count (130 - 400 /CUMM) 239 MPV (7.4 - 10.4 FL) 9.0 Gran % (42.2 - 75.2 %) 57.7 Lymphocytes % (20.5 - 51.1 %) 33.1 Monocytes % (1.7 - 9.3 %) 7.3 Eosinophils % (0 - 5 %) 1.4 Basophils % (0.0 - 2.0 %) 0.5 Absolute Granulocytes (1.4 - 6.5 /CUMM) 4.5 Segmented Neutrophils (42.2 - 75.2 %) 50 Band Neutrophils (0.0 - 5.0 %) 8 H Absolute Lymphocytes (1.2 - 3.4 /CUMM) 2.6 Lymphocytes (20.5 - 51.1 %) 28 Monocytes (1.7 - 9.3 %) 6 Absolute Monocytes (0.10 - 0.60 /CUMM) 0.6 Eosinophils (0 - 5.0 %) 3 Absolute Eosinophils (0.0 - 0.7 /CUMM) 0.1 Basophils (0.0 - 2.0 %) 1 Absolute Basophils (0.0 - 0.2 /CUMM) 0 Metamyelocytes (0.0 - 1.0 %) 3 H Myelocytes (0 - 0 %) 1 H Platelet Estimate (ADEQUATE) ADEQUATE Polychromasia 1+ Poikilocytosis 1+ Anisocytosis 2+ Stomatocytes 1+ Elliptocytes 1+ PUBS MCHC (33.0 - 37.0 G/DL) 31.9 L Impression/Plan Impression/Plan Impression/Plan: Afebrile. s/p trach bovona 8 Skin reveals no rash. HEENT negative. Neck supple with no adenopathy; Picc line in place Lungs decreased breath sounds bilaterally. Heart regular rhythm with no murmur. Abdomen is obese, distended, tender to palpation, Incision noted with a gabriela drain in the rt side, feeding tube on the left side with ongoing drainage Extremities superficial ulcerations over the anterior tibial aspects of both legs, with 1+ edema bilaterally. Neuro is without focality. 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 with prolonged antibiotic, previous history of peptic ulcer disease, diabetes, sinus rhythm upon admission was on Tikosyn, hyperlipidemia, apparently has never smoked before, previous history of lithotripsy, CABG, previous hip prosthesis infection status post removal of prosthesis in early 2016 now has the following issues * S/p Perf large DU ulcer s/p surg with unsuccessful du repair with peritonitis, persistant leak / now has sig gabriela drainage with ng suction and somatostatin / Patient now has significant fluid collection in the right paracolic gutter reinsertion of pig tail with prob has necrotizing fascitis of the abd wall mild * S/p Severe shock septic on multiple pressors now off pressors, with ongoing intraabd sepsis and prob atx and pna * Hypoxic respiratory failureSputum does have enterobacter and staph / s/p trach 08/23 * Sig drainage from the gabriela biliary leak and fluid collection which is ongoing/ with fluid collection which is pyogenic * Significant ischemic heart disease with low ejection fraction high risk for fluid overload. Previous pafib in sinus now with a pacer and AICD. 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 * H/O LIAM was on cpap now with trach * On and off diarrhea * Recent stroke and sig sinusitis * s/p trach RECOMMENDATION * COnt current care and off antibiotics per ID * Current amio dose for one week total and reduce to 200 mg * Do not do unnecessary xrays / ABG unless it is needed * Intravenous pantoprazole * Heparin subcutaneous * Octreotide sub cut * Watch off abx * Trach care as per protocol / Can cont psv trials and trach mask trials if katarina daily / DNR Prognosis is poor and multiple meeting held with the nephew who is aware of porr prognosis
--- NOTE | 2017-08-31 13:22 | ULTRASOUND REPORT ---
EXAMINATION: US ABDOMEN LIMITED CLINICAL INFORMATION: Elevated liver enzymes. Evaluate for gallbladder pathology.. COMPARISON: CT images of the abdomen from 08/15/2017 and 08/22/2017 TECHNIQUE: Real-time imaging of the right upper quadrant abdominal viscera. FINDINGS: PANCREAS: Patient has a large body habitus and pancreas is suboptimally visualized. The pancreatic tail is obscured by bowel gas. No evidence of pancreatic ductal dilatation or peripancreatic fluid collection. LIVER: Liver has normal size, contour and echotexture. No evidence of focal lesion or intrahepatic bile duct dilatation. GALLBLADDER: There is persistent diffuse wall thickening of the gallbladder (a finding present on 08/15/2017 and 08/22/2017). No gallbladder sludge or calculi. COMMON BILE DUCT: Normal in caliber measuring 0.4 cm in diameter. RIGHT KIDNEY: The right kidney is 11.3 cm in length. No nephrolithiasis or hydronephrosis. 3.7 x 2.5 x 3.6 cm simple appearing cyst in the interpolar region. FREE FLUID: No free fluid within Morison's pouch. IMPRESSION: 1. No evidence of cholelithiasis or biliary tract obstruction. 2. The persistent, diffuse wall thickening of the gallbladder could be secondary to anasarca.
[2017-08-31 16:00] VITALS: BP 96/60
--- NOTE | 2017-08-31 16:28 | PN- Cardiology ---
Subjective Subjective: Remains on ventilator. Awake. No further NSVT since on amiodarone. Objective Vital Signs and I&Os Vital Signs Date Time Temp Pulse Resp B/P B/P Pulse O2 O2 Flow FiO2 Mean Ox Delivery Rate 08/31 1600 95 Ventilator 30% 08/31 1600 98.9 69 18 96/60 95 Ventilator 30% 08/31 1313 30 08/31 1207 30 08/31 1200 94 Ventilator 30% 08/31 0929 69 113/58 08/31 0929 69 113/68 08/31 0834 30 08/31 0800 99.0 70 18 120/70 99 Ventilator 30% 08/31 0800 96 Ventilator 30% 08/31 0529 30 08/31 0400 98 Ventilator 30% 08/31 0344 30 08/31 0038 30 08/31 0000 99.2 69 21 116/80 98 Ventilator 30% 08/31 0000 98 Ventilator 30% 08/30 2223 30 08/30 2119 98.6 69 13 137/68 08/30 2118 98.6 69 13 137/68 08/30 2000 92 Ventilator 30% 08/30 1900 30 08/30 1635 30 Intake & Output 08/31 1600 08/31 0800 08/31 0000 08/30 1600 08/30 0800 08/30 0000 Intake Total 573 686 926 947 486 824 Output Total 490 650 660 680 715 730 Balance 83 36 266 267 -229 94 Intake, IV 30 30 40 Intake, Oral 0 0 Intake, Tube 403 606 671 757 406 719 Feeding Intake, Tube 140 80 255 160 80 65 Irrigant Number 1 Bowel Movements Output, 60 10 0 130 100 260 Drainage Output, 0 25 100 0 Gastric Drainage Output, Other 125 150 200 Output, Stool 30 50 100 Output, Urine 400 440 410 450 415 470 Physical Exam: Morbid obese, elderly male s/p tracheostomy remains on ventilator. Vital signs: See above. Neck: No JVD, no bruits. Lungs: Occasional rhonchi. Heart: S1, S2 (regular) with grade 2/6 systolic murmur. Abdomen: Soft, nontender, positive bowel sounds. Extremities: No edema. Current Medications: Current Medications Sig/Buck Start time Last Medication Dose Route Stop Time Status Admin Acetaminophen 1,000 MG Q6P PRN 07/16 0530 AC 07/20 N/A 1 UNIT IV 0659 Albuterol Sulfate 3 ML EVERY 4 HRS/AWAKE 07/27 0800 AC 08/31 INH 1611 Amiodarone HCl 200 MG DAILY 09/03 1000 UNVr PO Amiodarone HCl 400 MG BID 08/27 2200 r 08/31 PO 09/02 2355 0929 Aspirin 81 MG DAILY 08/16 2345 AC 08/31 PO 0929 Atorvastatin Calcium 40 MG 1700 08/16 1700 AC 08/30 PO 1546 Budesonide/ 2 PUF BID 07/26 1056 AC 08/31 Formoterol Fumarate INH 0905 Carvedilol 3.125 MG BID 07/28 1000 AC 08/31 PO 0929 Fentanyl Citrate 25 MCG Q4P PRN 08/05 2130 AC 08/27 IV 0026 Glycerin 2 SPRAY Q2P PRN 08/10 0445 AC 08/27 PO 1028 Heparin Sodium 5,000 UNIT Q8 08/05 1400 AC 08/31 (Porcine) SC 1344 Insulin Aspart 0 Q6 08/27 1800 AC 08/31 SC 1254 Insulin Detemir 16 UNITS BID 08/25 1000 AC 08/31 SC 0929 Lidocaine 1 GENE BID PRN 08/25 0845 AC 08/25 TOP 1029 Magnesium Oxide 400 MG BID 08/28 1216 AC 08/31 PO 0929 Nystatin 5 ML 4 TIMES/DAY 08/30 1400 AC 08/31 PO 1344 Octreotide Acetate 100 MCG TID 08/29 2200 AC 08/31 IV 0929 Pantoprazole Sodium 40 MG BID 07/10 1016 AC 08/31 IV 0929 Results Last 48 Hrs of Labs/Mics: Laboratory Tests 08/31/17 0400: Anion Gap 8, Estimated GFR > 60, Glucose 148 H, Calcium 8.0 L, Phosphorus 3.2, Magnesium 1.8, Total Bilirubin 0.4, AST 102 H, ALT 74 H, Albumin 2.0 L, CBC w Diff NO MAN DIFF REQ, RBC 3.08 L, MCV 95.8 H, MCH 30.8, RDW 22.7 H, MPV 8.5, Gran % 60.2, Lymphocytes % 29.3, Monocytes % 8.6, Eosinophils % 1.4, Basophils % 0.5, Absolute Granulocytes 5.2, Absolute Lymphocytes 2.5, Absolute Monocytes 0.7 H, Absolute Eosinophils 0.1, Absolute Basophils 0, PUBS MCHC 32.1 L 08/30/17 0520: pH 7.45, pCO2 32 L, pO2 103 H, HCO3 22, ABG O2 Sat (Measured) 97.0, P-50 (Temp Corrected) Y, Carboxyhemoglobin 0.3 L, O2 Concentration % 35%, Temperature 96.8 L, Respiration Rate 10, O2 Delivery Method ESPRIT, Vent Mode AC, Expiratory Pressure 5, Tidal Volume 500, Phlebotomy Draw Site LEFT RADIAL 08/30/17 0410: Anion Gap 8, Estimated GFR > 60, Glucose 137 H, Calcium 8.1 L, Phosphorus 3.4, Magnesium 1.8, Total Bilirubin 0.4, AST 60 H, ALT 52, Albumin 2.0 L, CBC w Diff MAN DIFF ORDERED, RBC 3.13 L, MCV 96.7 H, MCH 30.8, RDW 23.0 H, MPV 9.0, Gran % 57.7, Lymphocytes % 33.1, Monocytes % 7.3, Eosinophils % 1.4, Basophils % 0.5, Absolute Granulocytes 4.5, Segmented Neutrophils 50, Band Neutrophils 8 H, Absolute Lymphocytes 2.6, Lymphocytes 28, Monocytes 6, Absolute Monocytes 0.6, Eosinophils 3, Absolute Eosinophils 0.1, Basophils 1, Absolute Basophils 0, Metamyelocytes 3 H, Myelocytes 1 H, Platelet Estimate ADEQUATE, Polychromasia 1+, Poikilocytosis 1+, Anisocytosis 2+, Stomatocytes 1+, Elliptocytes 1+, PUBS MCHC 31.9 L Recent Imaging Studies: Abdominal ultrasound 08/31/2017: 1. No evidence of cholelithiasis or biliary tract obstruction. 2. The persistent, diffuse wall thickening of the gallbladder could be secondary to anasarca. CXR 08/30/2017: 1. Tracheostomy tube appears in proper position. 2. No significant interval change in low lung volumes, small bilateral pleural effusions and associated bibasilar atelectasis. Assessment/Plan Assessment/Plan [id number] w/ hx of morbid obesity, LIAM on CPAP, COPD, HTN, HLD, DM, CAD/ICM (s/ p IMI in 1998, CABG 4 w/ WHITE to LAD and individual SVGs to Dx, OM, PDA & MAZE) , and recurrent PAF who presented in an unkempt state via ambulance w/ UTI & subsequently had a perforation of a duodenal ulcer for which he underwent surgery (Fabrizio patch) on 07/09/2017 with worsening clinical status requiring return to the OR on 07/16/2017 for exploratory laparotomy and suture repair duodenal ulcer with Fabrizio patch. Status post drainage of a left abdominal abscess on 08/08/2017 w/ pus aspiration & catheter in place. Hemodynamically stable with properly functioning AICD nearing end-of-life (EOL), but without immediate concern for pacemaker failure. Runs of NSVT prompted initiation of amiodarone. He is on amiodarone 40 mg twice daily for 1 week which will be decreased to 200 mg daily starting on 09/03/2017. No further NSVT since the initiation of amiodarone. Continued output from WILLEM drains and persistent purulent drainage from his incision, that is felt by surgery to represent necrotic fascia. He has been deemed a nonsurgical candidate for this issue. Tracheostomy performed 08/23/2017 and functioning properly. Recommendations: * Continue amiodarone 400 mg twice daily for one week and then cut back to 200 mg daily. * Pacemaker functioning properly and should for months, even though near EOL. * Replete potassium and aim to maintain between 4.0-4.5 mEq per liter. * Replete magnesium and aim to maintain at or above 2.0 mEq per liter. * Continue to follow-up on infectious disease, critical care, endocrine, renal and surgical recommendations. * Continue DVT prophylaxis. Continue telemetry? Not applicable (In ICU.)
[2017-09-01] VITALS: BP 114/80
[2017-09-01 05:59] LABS: ABSOLUTE BASOPHIL COUNT 0 /CUMM (0.0-0.2); ABSOLUTE EOSINOPHIL COUNT 0.1 /CUMM (0.0-0.7); ABSOLUTE GRANULOCYTE CT 5.1 /CUMM (1.4-6.5); ABSOLUTE LYMPH COUNT 2.6 /CUMM (1.2-3.4); ABSOLUTE MONOCYTE COUNT 0.6 /CUMM (0.10-0.60); BASOPHIL % 0.5 % (0.0-2.0); EOSINOPHIL % 0.9 % (0-5); GRANULOCYTE % 60.8 % (42.2-75.2); HEMATOCRIT 29.6 % (42-52); MEAN CORPUSCULAR HGB 30.8 PG (27.0-31.0); MEAN CORPUSCULAR HGB CONC 32.1 G/DL (33.0-37.0); MEAN CORPUSCULAR VOLUME 95.9 FL (80.0-94.0); MEAN PLATELET VOLUME 8.6 FL (7.4-10.4); PLATELET COUNT 237 /CUMM (130-400); RBC DISTRIBUTION WIDTH 22.8 % (11.5-14.5); RED BLOOD CELL CT 3.09 /CUMM (4.70-6.10); WHITE BLOOD CELL COUNT 8.5 /CUMM (4.8-10.8)
[2017-09-01 07:00] VITALS: BP 112/70
--- NOTE | 2017-09-01 09:34 | PN- CRCU ---
Subjective HPI/Critical Care Issues: Events and data reviewed Pt is relatively the same sig altered lfts noted yesterday Ultrasound reveals IMPRESSION: 1. No evidence of cholelithiasis or biliary tract obstruction. 2. The persistent, diffuse wall thickening of the gallbladder could be secondary to anasarca. DICTATED BY: Tushar Lowe MD DATE/TIME DICTATED:08/31/17 / 1313 Objective Current Medications: Current Medications Sig/Buck Start time Last Medication Dose Route Stop Time Status Admin Acetaminophen 1,000 MG Q6P PRN 07/16 0530 AC 07/20 N/A 1 UNIT IV 0659 Albuterol Sulfate 3 ML EVERY 4 HRS/AWAKE 07/27 0800 AC 09/01 INH 0803 Amiodarone HCl 200 MG DAILY 09/03 1000 AC PO Amiodarone HCl 400 MG BID 08/27 2200 AC 08/31 PO 09/02 2355 2219 Aspirin 81 MG DAILY 08/16 2345 AC 08/31 PO 0929 Atorvastatin Calcium 40 MG 1700 08/16 1700 AC 08/31 PO 1645 Budesonide/ 2 PUF BID 07/26 1056 AC 09/01 Formoterol Fumarate INH 0804 Carvedilol 3.125 MG BID 07/28 1000 AC 08/31 PO 2220 Fentanyl Citrate 25 MCG Q4P PRN 08/05 2130 AC 08/27 IV 0026 Glycerin 2 SPRAY Q2P PRN 08/10 0445 AC 08/27 PO 1028 Heparin Sodium 5,000 UNIT Q8 08/05 1400 AC 09/01 (Porcine) SC 0658 Insulin Aspart 0 Q6 08/27 1800 AC 09/01 SC 0658 Insulin Detemir 16 UNITS BID 08/25 1000 AC 08/31 SC 2243 Lidocaine 1 GENE BID PRN 08/25 0845 AC 08/25 TOP 1029 Magnesium Oxide 400 MG BID 08/28 1216 AC 08/31 PO 2220 Magnesium Sulfate 1 GM Q2H 08/31 1700 DC 08/31 Dextrose/Water 100 ML IV 08/31 205 1831 Nystatin 5 ML 4 TIMES/DAY 08/30 1400 AC 08/31 PO 2220 Octreotide Acetate 100 MCG TID 08/29 2200 AC 08/31 IV 2247 Pantoprazole Sodium 40 MG BID 07/10 1016 AC 08/31 IV 2245 Vital Signs & I&O Last 24 Hrs of Vitals and I&O: Vital Signs Date Time Temp Pulse Resp B/P B/P Pulse O2 O2 Flow FiO2 Mean Ox Delivery Rate 09/01 0807 30 09/01 0700 97.9 70 20 112/70 96 Ventilator 30% 09/01 0553 30 09/01 0400 93 Ventilator 30% 09/01 0235 30 09/01 0000 95 Ventilator 30% 09/01 0000 98.3 68 14 114/80 98 Ventilator 30% 08/31 2231 30 08/31 2220 69 20 97/54 08/31 2219 69 26 97/54 08/31 2021 30 08/31 2000 95 Ventilator 30% 08/31 1611 30 08/31 1600 95 Ventilator 30% 08/31 1600 98.9 69 18 96/60 95 Ventilator 30% 08/31 1313 30 08/31 1207 30 08/31 1200 94 Ventilator 30% Intake & Output 09/01 1600 09/01 0800 09/01 0000 Intake Total 679 1388 Output Total 730 920 Balance -51 468 Intake, IV 290 Intake, Tube 639 843 Feeding Intake, Tube 40 255 Irrigant Output, 45 0 Drainage Output, 0 25 Gastric Drainage Output, Other 175 350 Output, Stool 100 70 Output, Urine 410 475 Impression/Plan Impression/Plan Impression/Plan: Afebrile. s/p trach bovona 8 Skin reveals no rash. HEENT negative. Neck supple with no adenopathy; Picc line in place Lungs decreased breath sounds bilaterally. Heart regular rhythm with no murmur. Abdomen is obese, distended, tender to palpation, Incision noted with a gabriela drain in the rt side, feeding tube on the left side with ongoing drainage Extremities superficial ulcerations over the anterior tibial aspects of both legs, with 1+ edema bilaterally. Neuro is without focality. 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 with prolonged antibiotic, previous history of peptic ulcer disease, diabetes, sinus rhythm upon admission was on Tikosyn, hyperlipidemia, apparently has never smoked before, previous history of lithotripsy, CABG, previous hip prosthesis infection status post removal of prosthesis in early 2017 now has the following issues * S/p Perf large DU ulcer s/p surg with unsuccessful du repair with peritonitis, persistant leak / now has sig gabriela drainage with ng suction and somatostatin / Patient now has significant fluid collection in the right paracolic gutter reinsertion of pig tail with prob has necrotizing fascitis of the abd wall mild * S/p Severe shock septic on multiple pressors now off pressors, with ongoing intraabd sepsis and prob atx and pna * Hypoxic respiratory failureSputum does have enterobacter and staph / s/p trach 08/23 * Sig drainage from the gabriela biliary leak and fluid collection which is ongoing/ with fluid collection which is pyogenic * Significant ischemic heart disease with low ejection fraction high risk for fluid overload. Previous pafib in sinus now with a pacer and AICD. 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 * H/O LIAM was on cpap now with trach * On and off diarrhea * Recent stroke and sig sinusitis * s/p trach * Altered lfts prob related to amiodarone\ RECOMMENDATION * COnt current care and off antibiotics per ID * Change amio to 200 daily * Do not do unnecessary xrays / ABG unless it is needed * Intravenous pantoprazole * Heparin subcutaneous * Octreotide sub cut * Watch off abx * Rpt ct abd and replacement of drainage cath per ID and Surg * Trach care as per protocol / Can cont psv trials and trach mask trials if katarina daily / DNR Prognosis is poor and multiple meeting held with the nephew who is aware of porr prognosis
--- NOTE | 2017-09-01 09:53 | PN- Resident CRCU ---
Subjective HPI/CRCU Issues: Septic shock secondary to perforated duodenal ulcer A/P Fabrizio patch Respiratory failure status post tracheostomy History of PAF on Tikosyn On amiodarone for arrhythmia 24 Hour Events: Mr Walls was seen and examined this morning. Resting comfrotably in bed. Unable to provide much of a history. Patient continues to become tachypnic to with CPAP trials. MAXIMUM TEMPERATURE: 99 ,pulse 70, respiration 20, saturating 99% on 30% FiO2 Vent: AC 19/500/30/5 Intake: 679 Output: 730 Perc Drain #B: 75 ML Perc drain #C 5ML Objective Vital Signs & I&O Last 8 Hrs of Vitals and I&O: Intake & Output 09/01 1600 Intake Total 865 Output Total 620 Balance 245 Intake, IV 30 Intake, Tube 635 Feeding Intake, Tube 200 Irrigant Output, 100 Drainage Output, 150 Gastric Drainage Output, Stool 20 Output, Urine 350 Exam General Appearance: sedated, intubated Head: atraumatic Ears, Nose, Throat: TRACHEoSTOMY IN PLACE Neck: normal inspection Respiratory: decreased breath sounds Cardiovascular: regular rate/rhythm Gastrointestinal: gabriela DRAIN SITE ON LEFT, FEEDING TUBE ON THE LEFT Extremities: TRACE BIPEDAL EDEMA Weaning Parameters NIF: 27 Minute Volume: 10.2 Resp rate: 22 Vt: 402 Heart Rate: 69 Weaning Schedule Start Time: 0820 Minute Volume: 10.6 Resp Rate: 24 Vt: 418 Heart Rate: 71 End Time: 1241 Minute Volume: 12.9 Resp Rate: 28 Vt: 462 Heart Rate: 69 Start Time: 1241 Resp Rate: 28 Heart Rate: 69 End Time: 1305 Resp Rate: 35 Heart Rate: 69 Current Medications: Current Medications Sig/Buck Start time Last Medication Dose Route Stop Time Status Admin Acetaminophen 1,000 MG Q6P PRN 07/16 0530 AC 07/20 N/A 1 UNIT IV 0659 Albuterol Sulfate 3 ML EVERY 4 HRS/AWAKE 07/27 0800 AC 09/01 INH 1617 Amiodarone HCl 200 MG DAILY 09/03 1000 AC PO Amiodarone HCl 400 MG BID 08/27 2200 AC 09/01 PO 09/02 2355 1000 Aspirin 81 MG DAILY 08/16 2345 AC 09/01 PO 1000 Atorvastatin Calcium 40 MG 1700 08/16 1700 AC 09/01 PO 1745 Budesonide/ 2 PUF BID 07/26 1056 AC 09/01 Formoterol Fumarate INH 0804 Carvedilol 3.125 MG BID 07/28 1000 AC 09/01 PO 1000 Fentanyl Citrate 25 MCG Q4P PRN 08/05 2130 AC 08/27 IV 0026 Glycerin 2 SPRAY Q2P PRN 08/10 0445 AC 08/27 PO 1028 Heparin Sodium 5,000 UNIT Q8 08/05 1400 AC 09/01 (Porcine) SC 1325 Insulin Aspart 0 Q6 08/27 1800 AC 09/01 SC 1252 Insulin Detemir 16 UNITS BID 08/25 1000 AC 09/01 SC 1003 Lidocaine 1 GENE BID PRN 08/25 0845 AC 08/25 TOP 1029 Magnesium Oxide 400 MG BID 08/28 1216 AC 09/01 PO 1000 Magnesium Sulfate 1 GM Q2H 08/31 1700 DC 08/31 Dextrose/Water 100 ML IV 08/31 2059 1831 Nystatin 5 ML 4 TIMES/DAY 08/30 1400 AC 09/01 PO 1745 Octreotide Acetate 100 MCG TID 08/29 2200 AC 09/01 IV 0959 Pantoprazole Sodium 40 MG BID 07/10 1016 AC 09/01 IV 1000 Impression/Plan Impression/Problem List Impression: This is a 76-year-old male with past medical history of CAD with HFrEF, A. fib, AICD, previous infection of the hip with prolonged antibiotic, history of peptic ulcer disease, diabetes, nephrolithiasis who was transferred to the ICU for perforation of the duodenum with septic shock S/P repair with patch. Repeated CT of the abdomen performed on 07/15 revealed free air/extravasation of contrast into the peritoneal cavity and he was taken to the OR for ex-lap and had re- repair of duodenal ulcer with Fabrizio patch. He remained intubated with subsequent wean trials and extubated on 07/23/2017, unfortunately he was re- intubated on 07/26/2017 as the patient was desaturating. On 08/23 patient had a trach placed. Plan #Septic shock secondary to perforated duodenal ulcer A/P Fabrizio patch and persistent respiratory failure status post tracheostomy. Duvall DCed as per ID Micro cx with VRE and respiratory cx with VRE. Repeat sputum cx on 08/02 shows GPC and mold. A repeat swab of the draining wound on abdomen showed E. coli and Beta strep Group B. BCx negative to date. Negative aspergillus antibody. H.pylori negative. Aug 08 body cx growing enterobacter aerogenes. Respiratory cx on 08/08 enterobacter aerogenes and staph aureus. * D/C Meropenem 07/30 and D/C Cubicin Day 08/01. * Duvall continued * As per ID recomendations will conitune follow the patient off antibiotics, Antibiotics discontinued on 08/24/2017. * Continue NG tube irrigation * Continue on PRN fentanyl for sedation. * Continue Protonix IV 40 mg twice a day * Octreotide SC 100 mcg TID * Foul-smelling discharge from the GABRIELA drain site. Plan to repeat a CAT scan of the abdomen and pelvis if patient spikes a fever. Surgery following, no plan for taking patient to OR * Trach placed 08/23, will continue trach care as per instructions, PSV trials to continue. Will attempt mask trials . * Poor prognosis. Multiple discussions held with nephew. Patient currently DNR. * No unnecessary x-rays. History of PAF on Tikosyn * Continue to hold the Tikosyn * Occasional PVC's with no ventricular tachycardia since beginning Amiodarone * We will continue amiodarone 400 twice a day for 1 week(until 09/02/2017) and then plan to switch to 200 daily * Con't Coreg 3.125 MG BID. * Pacemaker to be interrogated again today. DM: * Goal glucose between [id number]. * FSGs were: 182, 182, 183 * Appreciate endocrinology recommendation. * Con't FS * Continue Levemir 16 twice a day USMAN: RESOLVED. Hyponatremia: RESOLVED. Guarded prognosis DNR NPO, On tube feeds DVT prophylaxis with subcutaneous heparin Problem List: 1. Respiratory failure 2. Duodenal ulcer with perforation 3. Peritonitis Pain Ratin Pain Location: NA Tomorrow's Labs & Rationales: CBC, ICU bundle INTUBATED Plan DVT/Prophylaxis: mechanical, pharmacological
[2017-09-01 16:00] VITALS: BP 110/60
--- NOTE | 2017-09-01 16:25 | PN- Cardiology ---
Subjective Subjective: Status post tracheostomy and on ventilator. Rhythms stable on amiodarone. Objective Vital Signs and I&Os Vital Signs Date Time Temp Pulse Resp B/P B/P Pulse O2 O2 Flow FiO2 Mean Ox Delivery Rate 09/01 1600 98.8 69 20 110/60 96 Ventilator 30% 09/01 1414 30 09/01 1200 94 Ventilator 30% 09/01 1000 70 123/69 09/01 1000 70 123/69 09/01 0807 30 09/01 0800 96 Ventilator 30% 09/01 0700 97.9 70 20 112/70 96 Ventilator 30% 09/01 0553 30 09/01 0400 93 Ventilator 30% 09/01 0235 30 09/01 0000 95 Ventilator 30% 09/01 0000 98.3 68 14 114/80 98 Ventilator 30% 08/31 2231 30 08/31 2220 69 20 97/54 08/31 2219 69 26 97/54 08/31 2021 30 08/31 2000 95 Ventilator 30% Intake & Output 09/01 1600 09/01 0800 09/01 0000 08/31 1600 08/31 0800 08/31 0000 Intake Total 273 826 2056 573 686 926 Output Total 620 730 920 490 650 660 Balance 245 -51 468 83 36 266 Intake, IV 30 290 30 Intake, Oral 0 Intake, Tube 635 639 843 403 606 671 Feeding Intake, Tube 200 40 255 140 80 255 Irrigant Output, 100 45 0 60 10 0 Drainage Output, 150 0 25 0 25 100 Gastric Drainage Output, Other 175 350 125 150 Output, Stool 20 100 70 30 50 Output, Urine 350 410 475 400 440 410 Physical Exam: Well developed, morbidly obese elderly male in no acute distress who remains on ventilator status post tracheostomy. Vital signs: See above. Neck: No JVD, no bruits. Lungs: Occasional rhonchi. Heart: S1, S2 with grade 2/6 systolic murmur. Abdomen: Soft, nontender, positive bowel sounds. Extremities: No edema. Assessment/Plan Assessment/Plan [id number] w/ hx of morbid obesity, LIAM on CPAP, COPD, HTN, HLD, DM, CAD/ICM (s/ p IMI in 1998, CABG 4 w/ WHITE to LAD and individual SVGs to Dx, OM, PDA & MAZE) , and recurrent PAF who presented in an unkempt state via ambulance w/ UTI & subsequently had a perforation of a duodenal ulcer for which he underwent surgery (Fabrizio patch) on 07/09/2017 with worsening clinical status requiring return to the OR on 07/16/2017 for exploratory laparotomy and suture repair duodenal ulcer with Fabrizio patch. Status post drainage of a left abdominal abscess on 08/08/2017 w/ pus aspiration & catheter in place. Hemodynamically stable with properly functioning AICD documented to be at end-of -life (EOL) today, but without immediate concern for pacemaker failure. Runs of NSVT prompted initiation of amiodarone. He is on amiodarone 400 mg twice daily for 1 week which will be decreased to 200 mg daily starting on 09/03. No further NSVT since the initiation of amiodarone. Continued output from WILLEM drains and persistent purulent drainage from his incision, that is felt by surgery to represent necrotic fascia. He has been deemed a nonsurgical candidate for this issue. Tracheostomy performed 08/23/2017 and functioning properly. Recommendations: * Continue amiodarone 400 mg twice daily for one week and then cut back to 200 mg daily. * AICD functioning properly and should for months, even though @ EOL. * Replete potassium and aim to maintain between 4.0-4.5 mEq per liter. * Replete magnesium and aim to maintain at or above 2.0 mEq per liter. * Continue to follow-up on infectious disease, critical care, endocrine, renal and surgical recommendations. * Continue DVT prophylaxis. Continue telemetry? Not applicable (In ICU.)
[2017-09-02] VITALS: BP 123/63
[2017-09-02 06:05] LABS: HEMATOCRIT 30.3 % (42-52); RED BLOOD CELL CT 3.13 /CUMM (4.70-6.10); WHITE BLOOD CELL COUNT 9.9 /CUMM (4.8-10.8)
[2017-09-02 06:06] LABS: ABSOLUTE BASOPHIL COUNT 0 /CUMM (0.0-0.2); ABSOLUTE EOSINOPHIL COUNT 0.1 /CUMM (0.0-0.7); ABSOLUTE GRANULOCYTE CT 5.9 /CUMM (1.4-6.5); ABSOLUTE LYMPH COUNT 3.1 /CUMM (1.2-3.4); ABSOLUTE MONOCYTE COUNT 0.9 /CUMM (0.10-0.60); BASOPHIL % 0.4 % (0.0-2.0); EOSINOPHIL % 0.9 % (0-5); GRANULOCYTE % 58.8 % (42.2-75.2); MEAN CORPUSCULAR VOLUME 96.8 FL (80.0-94.0); MEAN PLATELET VOLUME 8.8 FL (7.4-10.4); PLATELET COUNT 261 /CUMM (130-400); RBC DISTRIBUTION WIDTH 22.8 % (11.5-14.5)
[2017-09-02 08:00] VITALS: BP 132/80
--- NOTE | 2017-09-02 10:04 | PN- CRCU ---
Subjective HPI/Critical Care Issues: Status post tracheostomy and on ventilator. Still lethragic and less responsive Drainage from around the wound and minimal drainage from the per cut cath Objective Current Medications: Current Medications Sig/Buck Start time Last Medication Dose Route Stop Time Status Admin Acetaminophen 1,000 MG Q6P PRN 07/16 0530 AC 07/20 N/A 1 UNIT IV 0659 Albuterol Sulfate 3 ML EVERY 4 HRS/AWAKE 07/27 0800 AC 09/02 INH 0847 Amiodarone HCl 200 MG DAILY 09/03 1000 AC PO Amiodarone HCl 400 MG BID 08/27 2200 AC 09/02 PO 09/02 2355 0949 Aspirin 81 MG DAILY 08/16 2345 AC 09/02 PO 0949 Atorvastatin Calcium 40 MG 1700 08/16 1700 AC 09/01 PO 1745 Budesonide/ 2 PUF BID 07/26 1056 AC 09/02 Formoterol Fumarate INH 0917 Carvedilol 3.125 MG BID 07/28 1000 AC 09/02 PO 0948 Fentanyl Citrate 25 MCG Q4P PRN 08/05 2130 AC 08/27 IV 0026 Glycerin 2 SPRAY Q2P PRN 08/10 0445 AC 08/27 PO 1028 Heparin Sodium 5,000 UNIT Q8 08/05 1400 AC 09/02 (Porcine) SC 0703 Insulin Aspart 0 Q6 08/27 1800 AC 09/02 SC 0708 Insulin Detemir 16 UNITS BID 08/25 1000 AC 09/02 SC 0947 Lidocaine 1 GENE BID PRN 08/25 0845 AC 08/25 TOP 1029 Magnesium Oxide 400 MG BID 08/28 1216 AC 09/02 PO 0948 Nystatin 5 ML 4 TIMES/DAY 08/30 1400 AC 09/02 PO 0947 Octreotide Acetate 100 MCG TID 08/29 2200 AC 09/02 IV 0947 Pantoprazole Sodium 40 MG BID 07/10 1016 AC 09/02 IV 0947 Laboratory Tests 09/02 09/01 0510 0440 Chemistry Sodium (137 - 145 mmol/L) 146 H 144 Potassium (3.5 - 5.1 mmol/L) 4.0 4.2 Chloride (98 - 107 mmol/L) 111 H 111 H Carbon Dioxide (22 - 30 mmol/L) 26 27 Anion Gap (5 - 16) 9 6 BUN (9 - 20 mg/dL) 30 H 25 H Creatinine (0.7 - 1.2 mg/dL) 0.5 L 0.5 L Estimated GFR (>60 ml/min) > 60 > 60 Glucose (65 - 99 mg/dL) 158 H 148 H Calcium (8.4 - 10.2 mg/dL) 8.0 L 8.1 L Phosphorus (2.5 - 4.5 mg/dL) 3.0 3.2 Magnesium (1.6 - 2.3 mg/dL) 1.9 2.1 Total Bilirubin (0.2 - 1.3 mg/dL) 0.3 0.3 AST (17 - 59 U/L) 97 H 132 H ALT (21 - 72 U/L) 102 H 116 H Albumin (3.5 - 5.0 g/dL) 2.1 L 2.1 L Prealbumin (17.6 - 36.0 mg/dL) 9.9 L Hematology CBC w Diff NO MAN DIFF REQ NO MAN DIFF REQ WBC (4.8 - 10.8 /CUMM) 9.9 8.5 RBC (4.70 - 6.10 /CUMM) 3.13 L 3.09 L Hgb (14.0 - 18.0 G/DL) 9.7 L 9.5 L Hct (42 - 52 %) 30.3 L 29.6 L MCV (80.0 - 94.0 FL) 96.8 H 95.9 H MCH (27.0 - 31.0 PG) 31.0 30.8 RDW (11.5 - 14.5 %) 22.8 H 22.8 H Plt Count (130 - 400 /CUMM) 261 237 MPV (7.4 - 10.4 FL) 8.8 8.6 Gran % (42.2 - 75.2 %) 58.8 60.8 Lymphocytes % (20.5 - 51.1 %) 30.7 30.5 Monocytes % (1.7 - 9.3 %) 9.2 7.3 Eosinophils % (0 - 5 %) 0.9 0.9 Basophils % (0.0 - 2.0 %) 0.4 0.5 Absolute Granulocytes (1.4 - 6.5 /CUMM) 5.9 5.1 Absolute Lymphocytes (1.2 - 3.4 /CUMM) 3.1 2.6 Absolute Monocytes (0.10 - 0.60 /CUMM) 0.9 H 0.6 Absolute Eosinophils (0.0 - 0.7 /CUMM) 0.1 0.1 Absolute Basophils (0.0 - 0.2 /CUMM) 0 0 PUBS MCHC (33.0 - 37.0 G/DL) 32.0 L 32.1 L Vital Signs & I&O Last 24 Hrs of Vitals and I&O: Vital Signs Date Time Temp Pulse Resp B/P B/P Pulse O2 O2 Flow FiO2 Mean Ox Delivery Rate 09/02 0949 69 118/64 09/02 0948 69 118/64 09/02 0848 30 09/02 0800 97.8 73 24 132/80 93 Ventilator 30% 09/02 0800 93 Ventilator 30% 09/02 0555 30 09/02 0400 93 Ventilator 30% 09/02 0341 30 09/02 0052 30 09/02 0000 97.6 69 23 123/63 94 Ventilator 30% 09/02 0000 94 Ventilator 30% 09/01 2257 30 09/01 2140 69 124/68 09/01 2139 69 124/68 09/01 2050 30 09/01 2000 95 Ventilator 30% 09/01 1617 30 09/01 1600 98.8 69 20 110/60 96 Ventilator 30% 09/01 1600 96 Ventilator 30% 09/01 1414 30 09/01 1200 94 Ventilator 30% Intake & Output 09/02 1600 09/02 0800 09/02 0000 Intake Total 745 982 Output Total 200 510 Balance 545 472 Intake, IV 0 0 Intake, Oral 0 Intake, Tube 665 697 Feeding Intake, Tube 80 285 Irrigant Number 1 0 Bowel Movements Output, 0 60 Drainage Output, 0 50 Gastric Drainage Output, Urine 200 400 Patient 251 lb Weight Weight Jacklyn Lift Measurement Method Impression/Plan Impression/Plan Impression/Plan: Afebrile. s/p trach bovona 8 Skin reveals no rash. HEENT negative. Neck supple with no adenopathy; Picc line in place Lungs decreased breath sounds bilaterally. Heart regular rhythm with no murmur. Abdomen is obese, distended, tender to palpation, Incision noted with a gabriela drain in the rt side, feeding tube on the left side with ongoing drainage Extremities superficial ulcerations over the anterior tibial aspects of both legs, with 1+ edema bilaterally. Neuro is without focality. 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 with prolonged antibiotic, previous history of peptic ulcer disease, diabetes, sinus rhythm upon admission was on Tikosyn, hyperlipidemia, apparently has never smoked before, previous history of lithotripsy, CABG, previous hip prosthesis infection status post removal of prosthesis in early 2016 now has the following issues * S/p Perf large DU ulcer s/p surg with unsuccessful du repair with peritonitis, persistant leak / now has sig gabriela drainage with ng suction and somatostatin / Had significant fluid collection in the right paracolic gutter reinsertion of pig tail with prob has necrotizing fascitis of the abd wall/ minimal drainage from the cath recently * S/p Severe shock septic on multiple pressors now off pressors, with ongoing intraabd sepsis and prob atx and pna * Hypoxic respiratory failureSputum does have enterobacter and staph / s/p trach 08/23 * Sig drainage from the gabriela biliary leak and fluid collection which is ongoing/ with fluid collection which is pyogenic * Significant ischemic heart disease with low ejection fraction high risk for fluid overload. Previous pafib in sinus now with a pacer and AICD. 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 * H/O LIAM was on cpap now with trach * On and off diarrhea * Recent stroke and sig sinusitis * s/p trach * Altered lfts prob related to amiodarone\ RECOMMENDATION * COnt current care and off antibiotics per ID * Amio to 200 daily * Do not do unnecessary xrays / ABG unless it is needed * Intravenous pantoprazole * Heparin subcutaneous * Octreotide sub cut * Watch off abx * Rpt ct abd and replacement of drainage cath per ID and Surg or if pt has sig leukocytosis or fever * Trach care as per protocol / Can cont psv trials and trach mask trials if katarina daily / DNR Prognosis is poor and multiple meeting held with the olga who is aware of porr prognosis
--- NOTE | 2017-09-02 11:00 | PN- Resident CRCU ---
Subjective HPI/CRCU Issues: Septic shock secondary to perforated duodenal ulcer A/P Fabrizio patch Respiratory failure status post tracheostomy History of PAF on Tikosyn On amiodarone for arrhythmia 24 Hour Events: Mr Walls was seen and examined this morning. Resting comfrotably in bed. Unable to provide much of a history. Patient continues to become tachypnic to with CPAP trials. MAXIMUM TEMPERATURE: 99 ,pulse 70, respiration 20, saturating 99% on 30% FiO2 Vent: AC /500/30/5 Intake: 679 Output: 730 Perc Drain #B: 80 ML Perc drain #C 5ML Objective Vital Signs & I&O Last 8 Hrs of Vitals and I&O: JJ Exam General Appearance: sedated, intubated Head: atraumatic Ears, Nose, Throat: normal pharynx Neck: TRACHEOSTOMY IN PLACE Respiratory: decreased breath sounds Cardiovascular: regular rate/rhythm Gastrointestinal: gabriela DRAIN SITE ON THE RIGHT, PERCUTANEOUS DRAINS ON THE LEFT Extremities: TRACE BIPEDAL EDEMA Weaning Parameters NIF: 27 Minute Volume: 10.2 Resp rate: 22 Vt: 402 Heart Rate: 69 Weaning Schedule Start Time: 0820 Minute Volume: 10.6 Resp Rate: 24 Vt: 418 Heart Rate: 71 End Time: 1050 Minute Volume: 11.4 Resp Rate: 28 Vt: 510 Heart Rate: 69 Start Time: 1045 Resp Rate: 28 Heart Rate: 69 End Time: 1305 Resp Rate: 35 Heart Rate: 69 Current Medications: Current Medications Sig/Buck Start time Last Medication Dose Route Stop Time Status Admin Acetaminophen 1,000 MG Q6P PRN 07/16 0530 AC 07/20 N/A 1 UNIT IV 0659 Albuterol Sulfate 3 ML EVERY 4 HRS/AWAKE 07/27 0800 AC 09/02 INH 0847 Amiodarone HCl 200 MG DAILY 09/03 1000 AC PO Amiodarone HCl 400 MG BID 08/27 2200 AC 09/02 PO 09/02 2355 0949 Aspirin 81 MG DAILY 08/16 2345 AC 09/02 PO 0949 Atorvastatin Calcium 40 MG 1700 08/16 1700 AC 09/01 PO 1745 Budesonide/ 2 PUF BID 07/26 1056 AC 09/02 Formoterol Fumarate INH 0917 Carvedilol 3.125 MG BID 07/28 1000 AC 09/02 PO 0948 Fentanyl Citrate 25 MCG Q4P PRN 08/05 2130 AC 08/27 IV 0026 Glycerin 2 SPRAY Q2P PRN 08/10 0445 AC 08/27 PO 1028 Heparin Sodium 5,000 UNIT Q8 08/05 1400 AC 09/02 (Porcine) SC 0703 Insulin Aspart 0 Q6 08/27 1800 09/02 SC 0708 Insulin Detemir 16 UNITS BID 08/25 1000 AC 09/02 SC 0947 Lidocaine 1 GENE BID PRN 08/25 0845 08/25 TOP 1029 Magnesium Oxide 400 MG BID 08/28 1216 AC 09/02 PO 0948 Nystatin 5 ML 4 TIMES/DAY 08/30 1400 AC 09/02 PO 0947 Octreotide Acetate 100 MCG TID 08/29 2200 AC 09/02 IV 0947 Pantoprazole Sodium 40 MG BID 07/10 1016 09/02 IV 0947 Impression/Plan Impression/Problem List Impression: This is a 76-year-old male with past medical history of CAD with HFrEF, A. fib, AICD, previous infection of the hip with prolonged antibiotic, history of peptic ulcer disease, diabetes, nephrolithiasis who was transferred to the ICU for perforation of the duodenum with septic shock S/P repair with patch. Repeated CT of the abdomen performed on 07/15 revealed free air/extravasation of contrast into the peritoneal cavity and he was taken to the OR for ex-lap and had re- repair of duodenal ulcer with Fabrizio patch. He remained intubated with subsequent wean trials and extubated on 07/23/2017, unfortunately he was re- intubated on 07/26/2017 as the patient was desaturating. On 08/23 patient had a trach placed. Plan #Septic shock secondary to perforated duodenal ulcer A/P Fabrizio patch and persistent respiratory failure status post tracheostomy. Duvall DCed as per ID Micro cx with VRE and respiratory cx with VRE. Repeat sputum cx on 08/02 shows GPC and mold. A repeat swab of the draining wound on abdomen showed E. coli and Beta strep Group B. BCx negative to date. Negative aspergillus antibody. H.pylori negative. Aug 08 body cx growing enterobacter aerogenes. Respiratory cx on 08/08 enterobacter aerogenes and staph aureus. * D/C Meropenem 07/30 and D/C Cubicin Day 08/01. * Duvall continued * As per ID recomendations will conitune follow the patient off antibiotics, Antibiotics discontinued on 08/24/2017. * Continue NG tube irrigation * Continue on PRN fentanyl for sedation. * Continue Protonix IV 40 mg twice a day * Octreotide SC 100 mcg TID * Foul-smelling discharge from the GABRIELA drain site. Plan to repeat a CAT scan of the abdomen and pelvis if patient spikes a fever/significant leukocytosis. Surgery following, no plan for taking patient to OR * Trach placed 08/23, will continue trach care as per instructions, PSV trials to continue. Will attempt mask trials . * Poor prognosis. Multiple discussions held with nephew. Patient currently DNR. * No unnecessary x-rays. History of PAF on Tikosyn * Continue to hold the Tikosyn * Occasional PVC's with no ventricular tachycardia since beginning Amiodarone * We will continue amiodarone 400 twice a day for 1 week(until 09/02/2017) and then plan to switch to 200 daily * Con't Coreg 3.125 MG BID. * Pacemaker to be interrogated again today. DM: * Goal glucose between [id number]. * FSGs were: 200, 200, 200 * Appreciate endocrinology recommendation. * Con't FS * Continue Levemir 16 twice a day USMAN: RESOLVED. Hyponatremia: RESOLVED. Guarded prognosis DNR NPO, On tube feeds DVT prophylaxis with subcutaneous heparin Problem List: 1. Respiratory failure 2. Duodenal ulcer with perforation 3. Peritonitis Pain Ratin Tomorrow's Labs & Rationales: CBC, ICU bundle INTUBATED Plan DVT/Prophylaxis: mechanical, pharmacological
--- NOTE | 2017-09-02 11:51 | PN- Cardiology ---
Subjective Subjective: Remains on ventilator s/p tracheostomy. Rhythm is properly functioning electronic pacemaker. Objective Vital Signs and I&Os Vital Signs Date Time Temp Pulse Resp B/P B/P Pulse O2 O2 Flow FiO2 Mean Ox Delivery Rate 09/02 1124 30 09/02 0949 69 118/64 09/02 0948 69 118/64 09/02 0848 30 09/02 0800 97.8 73 24 132/80 93 Ventilator 30% 09/02 0800 93 Ventilator 30% 09/02 0555 30 09/02 0400 93 Ventilator 30% 09/02 0341 30 09/02 0052 30 09/02 0000 97.6 69 23 123/63 94 Ventilator 30% 09/02 0000 94 Ventilator 30% 09/01 2257 30 09/01 2140 69 124/68 09/01 2139 69 124/68 09/01 2050 30 09/01 2000 95 Ventilator 30% 09/01 1617 30 09/01 1600 98.8 69 20 110/60 96 Ventilator 30% 09/01 1600 96 Ventilator 30% 09/01 1414 30 09/01 1200 94 Ventilator 30% Intake & Output 09/02 1600 09/02 0800 09/02 0000 09/01 1600 09/01 0800 09/01 0000 Intake Total 745 982 756 130 3673 Output Total 200 510 620 730 920 Balance 545 472 245 -51 468 Intake, IV 0 0 30 290 Intake, Oral 0 Intake, Tube 665 697 635 639 843 Feeding Intake, Tube 80 285 200 40 255 Irrigant Number 1 0 Bowel Movements Output, 0 60 100 45 0 Drainage Output, 0 50 150 0 25 Gastric Drainage Output, Other 175 350 Output, Stool 20 100 70 Output, Urine 200 400 350 410 475 Patient 251 lb Weight Weight Jacklyn Lift Measurement Method Physical Exam: Well developed, morbidly obese elderly male in no acute distress who remains on ventilator status post tracheostomy. Vital signs: See above. Neck: No JVD, no bruits. Lungs: Occasional rhonchi. Heart: S1, S2 with grade 2/6 systolic murmur. Abdomen: Soft, nontender, positive bowel sounds. Drains in place. Extremities: No edema. Assessment/Plan Assessment/Plan [id number] w/ hx of morbid obesity, LIAM on CPAP, COPD, HTN, HLD, DM, CAD/ICM (s/ p IMI in 1998, CABG 4 w/ WHITE to LAD and individual SVGs to Dx, OM, PDA & MAZE) , and recurrent PAF who presented in an unkempt state via ambulance w/ UTI & subsequently had a perforation of a duodenal ulcer for which he underwent surgery (Fabrizio patch) on 07/09/2017 with worsening clinical status requiring return to the OR on 07/16/2017 for exploratory laparotomy and suture repair duodenal ulcer with Fabrizio patch. Status post drainage of a left abdominal abscess on 08/08/2017 w/ pus aspiration & catheter in place. Hemodynamically stable with properly functioning AICD nearing end-of-life (EOL), but without immediate concern for pacemaker failure. Runs of NSVT prompted initiation of amiodarone. He is on amiodarone 40 mg twice daily for 1 week which will be decreased to 200 mg daily starting on 09/03/2017. No further NSVT since the initiation of amiodarone. Continued output from WILLEM drains and persistent purulent drainage from his incision, that is felt by surgery to represent necrotic fascia. He has been deemed a nonsurgical candidate for this issue. Tracheostomy performed 08/23/2017 and functioning properly. Recommendations: * Continue amiodarone 400 mg twice daily for one week and then cut back to 200 mg daily. * AICD functioning properly and should for months, even though at EOL. * Replete potassium and aim to maintain between 4.0-4.5 mEq per liter. * Replete magnesium and aim to maintain at or above 2.0 mEq per liter. * Continue to follow-up on infectious disease, critical care, endocrine, renal and surgical recommendations. * Continue DVT prophylaxis. Continue telemetry? Not applicable (In ICU.)
--- NOTE | 2017-09-02 14:51 | Procedure ---
Minor Surgical Procedure Note Date of Procedure: 09/02/17 Procedure Note: R MID ABDOMINAL DRAINAGE CATHETER SUTURE HAD BROKEN, THE CATH STAYED IN POSITION. AFTER STERIL PREP, A NEW 3-0 SILK SUTURE WAS PLACED AND THE CATHETER WAS TIED INTO PLACE WITHOUT DIFFICLUTY. APPEARS TO BE STILL FUNCTIONAL. OUTPUT WILL BE MONITORED BY NURSING STAFF.
[2017-09-02 16:00] VITALS: BP 114/60
[2017-09-03] VITALS: BP 109/59; BP 138/68
[2017-09-03 05:58] LABS: ABSOLUTE BASOPHIL COUNT 0 /CUMM (0.0-0.2); ABSOLUTE EOSINOPHIL COUNT 0.1 /CUMM (0.0-0.7); ABSOLUTE GRANULOCYTE CT 6.7 /CUMM (1.4-6.5); ABSOLUTE LYMPH COUNT 2.9 /CUMM (1.2-3.4); ABSOLUTE MONOCYTE COUNT 0.8 /CUMM (0.10-0.60); BASOPHIL % 0.4 % (0.0-2.0); EOSINOPHIL % 1.3 % (0-5); GRANULOCYTE % 63.4 % (42.2-75.2); HEMATOCRIT 29.1 % (42-52); MEAN CORPUSCULAR VOLUME 96.8 FL (80.0-94.0); MEAN PLATELET VOLUME 8.9 FL (7.4-10.4); PLATELET COUNT 242 /CUMM (130-400); RBC DISTRIBUTION WIDTH 22.2 % (11.5-14.5); RED BLOOD CELL CT 3.01 /CUMM (4.70-6.10); WHITE BLOOD CELL COUNT 10.6 /CUMM (4.8-10.8)
[2017-09-03 08:00] VITALS: BP 112/60
--- NOTE | 2017-09-03 08:39 | PN- Resident CRCU ---
Subjective HPI/CRCU Issues: Septic shock secondary to perforated duodenal ulcer A/P Fabrizio patch Respiratory failure status post tracheostomy History of PAF on Tikosyn On amiodarone for arrhythmia 24 Hour Events: Mr Walls was seen and examined this morning. Resting comfrotably in bed. Unable to provide much of a history.but open his eyes with verbal stimuli. MAXIMUM TEMPERATURE: 99 ,pulse 70, respiration 20, saturating 99% on 30% FiO2 Vent: AC 10/500/30/5 Intake: 2466 Output: 1950 Perc Drain #B: 250 Objective Vital Signs & I&O Last 8 Hrs of Vitals and I&O: . Exam General Appearance: intubated Other Physical Findings: Head: atraumatic Ears, Nose, Throat: normal pharynx Neck: TRACHEOSTOMY IN PLACE Respiratory: decreased breath sounds Cardiovascular: regular rate/rhythm Gastrointestinal: agbriela DRAIN SITE ON THE RIGHT, PERCUTANEOUS DRAINS ON THE LEFT Extremities: TRACE BIPEDAL EDEMA Weaning Parameters NIF: 21 Minute Volume: 9.39 Resp rate: 42 Vt: 225 Heart Rate: 69 Weaning Schedule Start Time: 1920 Minute Volume: 11.1 Resp Rate: 33 Vt: 335 Heart Rate: 69 End Time: 2100 Minute Volume: 7.08 Resp Rate: 27 Vt: 290 Heart Rate: 69 Start Time: 1045 Resp Rate: 28 Heart Rate: 69 End Time: 1305 Resp Rate: 35 Heart Rate: 69 Current Medications: Current Medications Sig/Buck Start time Last Medication Dose Route Stop Time Status Admin Acetaminophen 1,000 MG Q6P PRN 07/16 0530 AC 07/20 N/A 1 UNIT IV 0659 Albuterol Sulfate 3 ML EVERY 4 HRS/AWAKE 07/27 0800 AC 09/05 INH 2002 Alteplase, 2 MG ONE ONE 09/05 0915 DC 09/05 Recombinant IV 09/05 0916 1008 Amiodarone HCl 200 MG DAILY 09/03 1000 AC 09/05 PO 1009 Aspirin 81 MG DAILY 08/16 2345 AC 09/05 PO 1008 Atorvastatin Calcium 40 MG 1700 08/16 1700 AC 09/05 PO 1628 Budesonide/ 2 PUF BID 07/26 1056 AC 09/05 Formoterol Fumarate INH 0853 Carvedilol 3.125 MG BID 07/28 1000 AC 09/05 PO 2241 Chlorhexidine 15 ML 4 TIMES/DAY 09/05 1109 AC 09/05 Gluconate PO 2242 Dextrose/Sodium 1,000 ML Q20H 09/06 0100 AC 09/06 Chloride IV 0124 Fentanyl Citrate 25 MCG Q4P PRN 08/05 2130 AC 08/27 IV 0026 Glycerin 2 SPRAY Q2P PRN 08/10 0445 AC 08/27 PO 1028 Heparin Sodium 5,000 UNIT Q8 08/05 1400 DC 09/05 (Porcine) SC 1432 Insulin Aspart 0 Q6 08/27 1800 AC 09/05 SC 1749 Insulin Detemir 16 UNITS BID 08/25 1000 AC 09/05 SC 2240 Lidocaine 1 GENE BID PRN 08/25 0845 AC 08/25 TOP 1029 Lisinopril 5 MG DAILY 09/06 1000 AC PO Magnesium Oxide 400 MG BID 08/28 1216 AC 09/05 PO 2240 Morphine Sulfate 2 MG Q6P PRN 09/04 1315 AC 09/04 IV 2028 Octreotide Acetate 100 MCG TID 08/29 2200 AC 09/05 IV 2243 Pantoprazole Sodium 40 MG BID 07/10 1016 AC 09/05 IV 2242 Impression/Plan Impression/Problem List Impression: This is a 76-year-old male with past medical history of CAD with HFrEF, A. fib, AICD, previous infection of the hip with prolonged antibiotic, history of peptic ulcer disease, diabetes, nephrolithiasis who was transferred to the ICU for perforation of the duodenum with septic shock S/P repair with patch. Repeated CT of the abdomen performed on 07/15 revealed free air/extravasation of contrast into the peritoneal cavity and he was taken to the OR for ex-lap and had re- repair of duodenal ulcer with Fabrizio patch. He remained intubated with subsequent wean trials and extubated on 07/23/2017, unfortunately he was re- intubated on 07/26/2017 as the patient was desaturating. On 08/23 patient had a trach placed. Plan #Septic shock secondary to perforated duodenal ulcer A/P Fabrizio patch and persistent respiratory failure status post tracheostomy. Micro cx with VRE and respiratory cx with VRE. Repeat sputum cx on 08/02 shows GPC and mold. A repeat swab of the draining wound on abdomen showed E. coli and Beta strep Group B. BCx negative to date. Negative aspergillus antibody. H.pylori negative. Aug 08 body cx growing enterobacter aerogenes. Respiratory cx on 08/08 enterobacter aerogenes and staph aureus. * D/C Meropenem 07/30 and D/C Cubicin Day 08/01. * Duvall continued * As per ID recomendations will conitune follow the patient off antibiotics, Antibiotics discontinued on 08/24/2017. * Continue NG tube irrigation * Continue on PRN fentanyl for sedation. * Continue Protonix IV 40 mg twice a day * Octreotide SC 100 mcg TID * Foul-smelling discharge from the GABRIELA drain site. Plan to repeat a CAT scan of the abdomen and pelvis if patient spikes a fever/significant leukocytosis. Surgery following, no plan for taking patient to OR * Trach placed 08/23, will continue trach care as per instructions, PSV trials to continue. Will attempt mask trials . * Poor prognosis. Multiple discussions held with nephew. Patient currently DNR. * No unnecessary x-rays. * LFTs are mildly elevated (stable) * patient had an episode of hypoxia we ordered CTA ro rule out PE however per discussion with NÉSTOR WALLS he requested that we hold all unneccessary test and procedure and he will come tomorrow for possible comfort discussion in the [facility] History of PAF on Tikosyn * Continue to hold the Tikosyn * Occasional PVC's with no ventricular tachycardia since beginning Amiodarone * We will continue amiodarone 400 twice a day for 1 week(until 09/02/2017) and then plan to switch to 200 daily * Con't Coreg 3.125 MG BID. * Pacemaker is at the end of life DM: * Goal glucose between [id number]. * FSGs were controlled * Appreciate endocrinology recommendation. * Con't FS * Continue Levemir 16 twice a day USMAN: RESOLVED. Hyponatremia: RESOLVED. Guarded prognosis DNR NPO, On tube feeds DVT prophylaxis with subcutaneous heparin Problem List: 1. USMAN (acute kidney injury) 2. Perforated viscus Pain Ratin Tomorrow's Labs & Rationales: cbc icu bundle cxr Plan DVT/Prophylaxis: mechanical, pharmacological
--- NOTE | 2017-09-03 08:53 | PN- General Surgery ---
Surgical Brief Attending Note Brief Attending Note: stable without change. vent wean ongoing/slow. tube feeds at goal. duodenal leak controlled with continued but significantly reduced output. Continue cares. Repeat CT next week.
--- NOTE | 2017-09-03 09:49 | PN- CRCU ---
Subjective HPI/Critical Care Issues: Significant deterioration since yesterday More hypoxemic Now requiring 50-60% FiO2 Status unchanged Afebrile Vital signs otherwise unremarkable Continues to be on tube feedings Continues to drain around this abdominal fistulous Objective Current Medications: Current Medications Sig/Buck Start time Last Medication Dose Route Stop Time Status Admin Acetaminophen 1,000 MG Q6P PRN 07/16 0530 AC 07/20 N/A 1 UNIT IV 0659 Albuterol Sulfate 3 ML EVERY 4 HRS/AWAKE 07/27 0800 AC 09/03 INH 0836 Amiodarone HCl 200 MG DAILY 09/03 1000 AC PO Amiodarone HCl 400 MG BID 08/27 2200 DC 09/02 PO 09/02 2355 2220 Aspirin 81 MG DAILY 08/16 2345 AC 09/02 PO 0949 Atorvastatin Calcium 40 MG 1700 08/16 1700 AC 09/02 PO 1757 Budesonide/ 2 PUF BID 07/26 1056 AC 09/03 Formoterol Fumarate INH 0836 Carvedilol 3.125 MG BID 07/28 1000 AC 09/02 PO 2221 Fentanyl Citrate 25 MCG Q4P PRN 08/05 2130 AC 08/27 IV 0026 Glycerin 2 SPRAY Q2P PRN 08/10 0445 AC 08/27 PO 1028 Heparin Sodium 5,000 UNIT Q8 08/05 1400 AC 09/03 (Porcine) SC 0638 Insulin Aspart 0 Q6 08/27 1800 AC 09/03 SC 0639 Insulin Detemir 16 UNITS BID 08/25 1000 AC 09/02 SC 2224 Lidocaine 20 ML .STK-MED ONE 09/02 1421 DC IA 09/02 1422 Lidocaine 1 GENE BID PRN 08/25 0845 AC 08/25 TOP 1029 Magnesium Oxide 400 MG BID 08/28 1216 AC 09/02 PO 2221 Nystatin 5 ML 4 TIMES/DAY 08/30 1400 DC 09/02 PO 1401 Octreotide Acetate 100 MCG TID 08/29 2200 AC 09/02 IV 2224 Pantoprazole Sodium 40 MG BID 07/10 1016 AC 09/02 IV 2220 Vital Signs & I&O Last 24 Hrs of Vitals and I&O: Vital Signs Date Time Temp Pulse Resp B/P B/P Pulse O2 O2 Flow FiO2 Mean Ox Delivery Rate 09/03 0847 60 09/03 08 98.1 69 18 112/60 98 Ventilator 60% 09/03 0800 97 Ventilator 60% 09/03 0607 60 09/03 0400 97 Ventilator 60% 09/03 0326 60 09/03 0028 60 09/03 0000 96 Ventilator 60% 09/03 0000 97.0 86 20 109/59 96 Ventilator 60% 09/02 2233 30 09/02 2221 75 136/68 09/02 2220 75 136/68 09/02 2000 94 Ventilator 30% 09/02 1915 30 09/02 1640 30 09/02 1600 98.0 69 18 114/60 96 Ventilator 30% 09/02 1600 96 Ventilator 30% 09/02 1429 30 09/02 1200 95 Ventilator 30% 09/02 1124 30 09/02 0949 69 118/64 09/02 0948 69 118/64 Intake & Output 09/03 1600 09/03 0800 09/03 0000 Intake Total 816 888 Output Total 645 510 Balance 171 378 Intake, IV 0 0 Intake, Oral 0 Intake, Tube 736 663 Feeding Intake, Tube 80 225 Irrigant Number 1 1 Bowel Movements Output, 210 110 Drainage Output, 10 0 Gastric Drainage Output, Urine 425 400 Laboratory Tests 09/03 09/02 0455 0510 Chemistry Sodium (137 - 145 mmol/L) 145 146 H Potassium (3.5 - 5.1 mmol/L) 4.1 4.0 Chloride (98 - 107 mmol/L) 110 H 111 H Carbon Dioxide (22 - 30 mmol/L) 27 26 Anion Gap (5 - 16) 8 9 BUN (9 - 20 mg/dL) 30 H 30 H Creatinine (0.7 - 1.2 mg/dL) 0.5 L 0.5 L Estimated GFR (>60 ml/min) > 60 > 60 Glucose (65 - 99 mg/dL) 139 H 158 H Calcium (8.4 - 10.2 mg/dL) 8.0 L 8.0 L Phosphorus (2.5 - 4.5 mg/dL) 3.3 3.0 Magnesium (1.6 - 2.3 mg/dL) 1.9 1.9 Total Bilirubin (0.2 - 1.3 mg/dL) 0.3 0.3 AST (17 - 59 U/L) 103 H 97 H ALT (21 - 72 U/L) 102 H 102 H Albumin (3.5 - 5.0 g/dL) 2.0 L 2.1 L Hematology CBC w Diff MAN DIFF ORDERED NO MAN DIFF REQ WBC (4.8 - 10.8 /CUMM) 10.6 9.9 RBC (4.70 - 6.10 /CUMM) 3.01 L 3.13 L Hgb (14.0 - 18.0 G/DL) 9.3 L 9.7 L Hct (42 - 52 %) 29.1 L 30.3 L MCV (80.0 - 94.0 FL) 96.8 H 96.8 H MCH (27.0 - 31.0 PG) 31.0 31.0 RDW (11.5 - 14.5 %) 22.2 H 22.8 H Plt Count (130 - 400 /CUMM) 242 261 MPV (7.4 - 10.4 FL) 8.9 8.8 Gran % (42.2 - 75.2 %) 63.4 58.8 Lymphocytes % (20.5 - 51.1 %) 27.4 30.7 Monocytes % (1.7 - 9.3 %) 7.5 9.2 Eosinophils % (0 - 5 %) 1.3 0.9 Basophils % (0.0 - 2.0 %) 0.4 0.4 Absolute Granulocytes (1.4 - 6.5 /CUMM) 6.7 H 5.9 Segmented Neutrophils (42.2 - 75.2 %) 60 Band Neutrophils (0.0 - 5.0 %) 15 H Absolute Lymphocytes (1.2 - 3.4 /CUMM) 2.9 3.1 Lymphocytes (20.5 - 51.1 %) 15 L Monocytes (1.7 - 9.3 %) 7 Absolute Monocytes (0.10 - 0.60 /CUMM) 0.8 H 0.9 H Eosinophils (0 - 5.0 %) 3 Absolute Eosinophils (0.0 - 0.7 /CUMM) 0.1 0.1 Absolute Basophils (0.0 - 0.2 /CUMM) 0 0 Platelet Estimate (ADEQUATE) ADEQUATE Polychromasia 1+ Poikilocytosis 1+ Anisocytosis 1+ PUBS MCHC (33.0 - 37.0 G/DL) 32.0 L 32.0 L Impression/Plan Impression/Plan Impression/Plan: Afebrile. s/p trach bovona 8 Skin reveals no rash. HEENT negative. Neck supple with no adenopathy; Picc line in place Lungs decreased breath sounds bilaterally. Heart regular rhythm with no murmur. Abdomen is obese, distended, tender to palpation, Incision noted with a gabriela drain in the rt side, feeding tube on the left side with ongoing drainage Extremities superficial ulcerations over the anterior tibial aspects of both legs, with 1+ edema bilaterally. Neuro is without focality. 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 with prolonged antibiotic, previous history of peptic ulcer disease, diabetes, sinus rhythm upon admission was on Tikosyn, hyperlipidemia, apparently has never smoked before, previous history of lithotripsy, CABG, previous hip prosthesis infection status post removal of prosthesis in early 2016 now has the following issues * S/p Perf large DU ulcer s/p surg with unsuccessful du repair with peritonitis, persistant leak / now has sig gabriela drainage with ng suction and somatostatin / Had significant fluid collection in the right paracolic gutter reinsertion of pig tail with prob has necrotizing fascitis of the abd wall/ minimal drainage from the cath recently * S/p Severe shock septic on multiple pressors now off pressors, with ongoing intraabd sepsis and prob atx and pna * Hypoxic respiratory failureSputum does have enterobacter and staph / s/p trach 08/23, now more hypoxic rule out pna and other pathology * Sig drainage from the gabriela biliary leak and fluid collection which is ongoing/ with fluid collection which is pyogenic * Significant ischemic heart disease with low ejection fraction high risk for fluid overload. Previous pafib in sinus now with a pacer and AICD. 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 * H/O LIAM was on cpap now with trach * On and off diarrhea * Recent stroke and sig sinusitis * s/p trach * Altered lfts prob related to amiodarone\ RECOMMENDATION * Check cxr and lower ext dopplers, if cxr is unremarkable or no change pt would need cta to rule out pe and followed immediately by ct abd to eval his abd fluid collection * Rpt sputum culture * COnt current care and off antibiotics per ID * Amio to 200 daily * Intravenous pantoprazole * Heparin subcutaneous * Octreotide sub cut * Watch off abx * Rpt ct abd and replacement of drainage cath per ID and Surg or if pt has sig leukocytosis or fever * Trach care as per protocol / Can cont psv trials and trach mask trials if katarina daily / DNR Prognosis is poor and multiple meeting held with the nephew who is aware of poor prognosis WIll try to reach the nephew today and meet with him again to discuss goals of care
--- NOTE | 2017-09-03 11:27 | RADIOLOGY REPORT ---
EXAMINATION: XR PORTABLE CHEST CLINICAL INFORMATION: Intubated COMPARISON: 08/30/2017 TECHNIQUE: Portable portable AP 25 degrees upright view of the chest was obtained. FINDINGS: Tracheostomy is midline. Enteric tube extends below diaphragm, tip not visualized. Dual-lead ICD identified with evidence of median sternotomy wires. The cardiac silhouette is enlarged without change. The tip of the right PICC is not clearly seen. The lung volumes are decreased. Small left greater than right pleural effusions unchanged. The left retrocardiac consolidation and mild patchy opacity at the right lung base is unchanged. No evidence of pneumothorax. IMPRESSION: Unchanged low lung volumes with bibasilar patchy opacities and small pleural effusions, left worse on right.
--- NOTE | 2017-09-03 13:20 | ULTRASOUND REPORT ---
EXAMINATION: US TRIPLEX OF LOWER EXTREMITIES, BILATERAL CLINICAL INFORMATION: Bilateral lower extremity edema. COMPARISON: Right lower extremity venous ultrasound dated 07/27/2017. TECHNIQUE: Color-flow triplex imaging with spectral analysis and compression Doppler were performed on the lower extremities. FINDINGS: Respiratory variation, normal compression and augmented flow are noted throughout the lower extremities. The visualized common femoral vein, proximal greater saphenous vein, femoral vein, profunda femoral vein, popliteal vein and visualized mid calf venous segments show no evidence of deep venous thrombosis. There is no King's cyst. IMPRESSION: Normal triplex scan without evidence of deep venous thrombosis involving the bilateral lower extremities.
[2017-09-03 16:00] VITALS: BP 128/70
[2017-09-04] VITALS: BP 110/60
[2017-09-04 04:58] LABS: ABSOLUTE BASOPHIL COUNT 0 /CUMM (0.0-0.2); ABSOLUTE EOSINOPHIL COUNT 0.1 /CUMM (0.0-0.7); ABSOLUTE LYMPH COUNT 2.6 /CUMM (1.2-3.4); ABSOLUTE MONOCYTE COUNT 0.8 /CUMM (0.10-0.60); BASOPHIL % 0.5 % (0.0-2.0); EOSINOPHIL % 1.2 % (0-5); GRANULOCYTE % 62.4 % (42.2-75.2); HEMATOCRIT 28.9 % (42-52); MEAN CORPUSCULAR HGB 30.9 PG (27.0-31.0); MEAN CORPUSCULAR HGB CONC 31.9 G/DL (33.0-37.0); MEAN CORPUSCULAR VOLUME 96.9 FL (80.0-94.0); MEAN PLATELET VOLUME 8.6 FL (7.4-10.4); PLATELET COUNT 232 /CUMM (130-400); RBC DISTRIBUTION WIDTH 22.5 % (11.5-14.5); RED BLOOD CELL CT 2.98 /CUMM (4.70-6.10); WHITE BLOOD CELL COUNT 9.6 /CUMM (4.8-10.8)
--- NOTE | 2017-09-04 07:10 | RADIOLOGY REPORT ---
EXAMINATION: XR PORTABLE CHEST CLINICAL INFORMATION: Intubated. COMPARISON: Chest radiographs most recently 09/03/2017. TECHNIQUE: Portable frontal view of the chest was obtained. FINDINGS: Tracheostomy tube is midline, terminating above the level the kika. An enteric tube courses towards the stomach with the tip not well seen. A right-sided central venous catheter is noted with the tip in the region of the cavoatrial junction. Left pectoral atrioventricular pacemaker is noted with only the atrial lead well seen. Poststernotomy changes are noted. Bibasilar pulmonary opacities are again noted. Small bilateral effusions are again noted. No pneumothorax. IMPRESSION: No significant interval change. Bibasilar opacities with small bilateral pleural effusions. Support tubes and lines as described.
[2017-09-04 08:00] VITALS: BP 120/70
--- NOTE | 2017-09-04 08:42 | PN- Resident CRCU ---
Subjective HPI/CRCU Issues: Mr Walls was seen and examined this morning. Resting comfortably in bed. Unable to complain of any issues overnight. He is able to open his eyes on verbal command. Unable to follow motor commands when requested to. 24 Hour Events: No events reported Objective Vital Signs & I&O Last 8 Hrs of Vitals and I&O: T: 99.5. HR: 88. SB. RR: 16-28. BP: 100/60-199/82. % O2. 96. Intake: 2766 Output: 3030. Exam General Appearance: lethargic, mild distress Respiratory: normal breath sounds Cardiovascular: regular rate/rhythm Gastrointestinal: normal bowel sounds, soft, non-tender Extremities: normal inspection Weaning Parameters NIF: 21 Minute Volume: 9.39 Resp rate: 42 Vt: 225 Heart Rate: 69 Weaning Schedule Start Time: 1920 Minute Volume: 11.1 Resp Rate: 33 Vt: 335 Heart Rate: 69 End Time: 2100 Minute Volume: 7.08 Resp Rate: 27 Vt: 290 Heart Rate: 69 Start Time: 1045 Resp Rate: 28 Heart Rate: 69 End Time: 1305 Resp Rate: 35 Heart Rate: 69 Current Medications: Current Medications Sig/Buck Start time Last Medication Dose Route Stop Time Status Admin Acetaminophen 1,000 MG Q6P PRN 07/16 0530 AC 07/20 N/A 1 UNIT IV 0659 Albuterol Sulfate 3 ML EVERY 4 HRS/AWAKE 07/27 0800 AC 09/04 INH 0846 Amiodarone HCl 200 MG DAILY 09/03 1000 AC 09/04 PO 0938 Aspirin 81 MG DAILY 08/16 2345 AC 09/04 PO 0937 Atorvastatin Calcium 40 MG 1700 08/16 1700 AC 09/03 PO 1628 Budesonide/ 2 PUF BID 07/26 1056 AC 09/03 Formoterol Fumarate INH 2106 Carvedilol 3.125 MG BID 07/28 1000 AC 09/04 PO 0938 Fentanyl Citrate 25 MCG Q4P PRN 08/05 2130 AC 08/27 IV 0026 Glycerin 2 SPRAY Q2P PRN 08/10 0445 AC 08/27 PO 1028 Heparin Sodium 5,000 UNIT Q8 08/05 1400 AC 09/04 (Porcine) SC 0539 Insulin Aspart 0 Q6 08/27 1800 AC 09/04 SC 0544 Insulin Detemir 16 UNITS BID 12/21 1000 AC 09/04 SC 0937 Lidocaine 1 GENE BID PRN 08/25 0845 08/25 TOP 1029 Magnesium Oxide 400 MG BID 08/28 1216 09/04 PO 0938 Octreotide Acetate 100 MCG TID 08/29 2200 09/04 IV 0934 Pantoprazole Sodium 40 MG BID 07/10 1016 09/04 IV 0935 CXR Findings: SERVICE DATE: 09/04/17 EXAM TYPE: RAD - XRY-PORTABLE CHEST XRAY EXAMINATION: XR PORTABLE CHEST CLINICAL INFORMATION: Intubated. COMPARISON: Chest radiographs most recently 09/03/2017. TECHNIQUE: Portable frontal view of the chest was obtained. FINDINGS: Tracheostomy tube is midline, terminating above the level the kika. An enteric tube courses towards the stomach with the tip not well seen. A right-sided central venous catheter is noted with the tip in the region of the cavoatrial junction. Left pectoral atrioventricular pacemaker is noted with only the atrial lead well seen. Poststernotomy changes are noted. Bibasilar pulmonary opacities are again noted. Small bilateral effusions are again noted. No pneumothorax. IMPRESSION: No significant interval change. Bibasilar opacities with small bilateral pleural effusions. Support tubes and lines as described. DICTATED BY: Prakash Michael MD Impression/Plan Impression/Problem List Impression: This is a 76-year-old male with past medical history of CAD with HFrEF, A. fib, AICD, previous infection of the hip with prolonged antibiotic, history of peptic ulcer disease, diabetes, nephrolithiasis who was transferred to the ICU for perforation of the duodenum with septic shock S/P repair with patch. Repeated CT of the abdomen performed on 07/15 revealed free air/extravasation of contrast into the peritoneal cavity and he was taken to the OR for ex-lap and had re- repair of duodenal ulcer with Fabrizio patch. He remained intubated with subsequent wean trials and extubated on 07/23/2017, unfortunately he was re- intubated on 07/26/2017 as the patient was desaturating. On 08/23 patient had a trach placed. PLAN #Septic shock secondary to perforated duodenal ulcer A/P Fabrizio patch: He had a catscan yesterday which showed decreased collections. His ramon was removed (it had been in for >40 days) and replaced with a new one. Micro is shoiwng the body cx with VRE and respiratory cx with VRE. Repeat sputum cx on 08/02 shows GPC and mold. A repeat swab of the draining wound on abdomen showed E. coli and Beta strep Group B. BCx negative to date. Negative aspergillus antibody. H.pylori negative. Aug 08 body cx growing enterobacter aerogenes. Respiratory cx on 08/08 enterobacter aerogenes and staph aureus. * D/C Meropenem 07/30 and D/C Cubicin Day 08/01. * As per ID recomendations will conitune follow the patient off antibiotics, Antibiotics discontinued on 08/24/2017. * Continue on PRN fentanyl for sedation. * Continue Protonix IV 40 mg twice a day * Octreotide SC 100 mcg TID * Surgery following, await dressing change. * Trach placed 08/23, will continue trach care as per instructions, PSV trials to continue. Will attempt mask trials . * Pt LLQ drain removed 08/23 * Poor prognosis. Multiple discussions held with nephew. Patient currently DNR. * No unnecessary x-rays. History of PAF on Tikosyn * Continue to hold the Tikosyn * Appreciate cardiology recs * Con't Coreg 3.125 MG BID. * Patient on Amiodarone 200 mg BID, started on 08/31/2017 DM: * Goal glucose between [id number]. * FSGs were:158,184,165, * Appreciate endocrinology recommendation. * Con't FS * Con't RISS as per scale. Continue Levemir 16 units BID. USMAN: RESOLVED. Hyponatremia: RESOLVED. Guarded prognosis, likely will be made hospice 09/06/2017. DNR Nothing by mouth DVT prophylaxis with subcutaneous heparin Problem List: 1. Peritonitis Pain Ratin Tomorrow's Labs & Rationales: ICU Bundle: Monitor Electrolytes. CBC: Monitor H/H Plan DVT/Prophylaxis: mechanical, pharmacological
--- NOTE | 2017-09-04 10:52 | PN- CRCU ---
Subjective HPI/Critical Care Issues: Doing poorly Continues to be hypoxemic Afebrile Urine output has been adequate More lethargic Objective Current Medications: Current Medications Sig/Buck Start time Last Medication Dose Route Stop Time Status Admin Acetaminophen 1,000 MG Q6P PRN 07/16 0530 AC 07/20 N/A 1 UNIT IV 0659 Albuterol Sulfate 3 ML EVERY 4 HRS/AWAKE 07/27 0800 AC 09/04 INH 0846 Amiodarone HCl 200 MG DAILY 09/03 1000 AC 09/04 PO 0938 Aspirin 81 MG DAILY 08/16 2345 AC 09/04 PO 0937 Atorvastatin Calcium 40 MG 1700 08/16 1700 AC 09/03 PO 1628 Budesonide/ 2 PUF BID 07/26 1056 AC 09/04 Formoterol Fumarate INH 1043 Carvedilol 3.125 MG BID 07/28 1000 AC 09/04 PO 0938 Fentanyl Citrate 25 MCG Q4P PRN 08/05 2130 AC 08/27 IV 0026 Glycerin 2 SPRAY Q2P PRN 08/10 0445 AC 08/27 PO 1028 Heparin Sodium 5,000 UNIT Q8 08/05 1400 AC 09/04 (Porcine) SC 0539 Insulin Aspart 0 Q6 08/27 1800 AC 09/04 SC 0544 Insulin Detemir 16 UNITS BID 08/25 1000 AC 09/04 SC 0937 Lidocaine 1 GENE BID PRN 08/25 0845 AC 08/25 TOP 1029 Magnesium Oxide 400 MG BID 08/28 1216 AC 09/04 PO 0938 Octreotide Acetate 100 MCG TID 08/29 2200 AC 09/04 IV 0934 Pantoprazole Sodium 40 MG BID 07/10 1016 AC 09/04 IV 0935 Vital Signs & I&O Last 24 Hrs of Vitals and I&O: Vital Signs Date Time Temp Pulse Resp B/P B/P Pulse O2 O2 Flow FiO2 Mean Ox Delivery Rate 09/04 1013 97.0 09/04 0938 69 110/57 09/04 0938 69 110/57 09/04 0840 40 09/04 0800 99.9 70 20 120/70 92 Ventilator 40% 09/04 0800 91 Ventilator 40% 09/04 0545 40 09/04 0400 95 Ventilator 40% 09/04 0301 40 09/04 0055 40 09/04 0000 93 Ventilator 40% 09/04 0000 96.8 69 10 110/60 93 Ventilator 40% 09/03 2311 40 09/03 2152 70 18 119/61 09/03 2000 96 Ventilator 40% 09/03 1930 40 09/03 1700 40 09/03 1600 96 Ventilator 40% 09/03 1600 99.8 71 18 128/70 96 Ventilator 40% 09/03 1418 40 Intake & Output 09/04 1600 09/04 0800 09/04 0000 Intake Total 490 1041 Output Total 480 500 Balance 10 541 Intake, IV 60 Intake, Tube 410 716 Feeding Intake, Tube 80 265 Irrigant Number 1 Bowel Movements Output, 5 Drainage Output, Other 20 Output, Urine 480 475 Impression/Plan Impression/Plan Impression/Plan: Afebrile. s/p trach bovona 8 Skin reveals no rash. HEENT negative. Neck supple with no adenopathy; Picc line in place Lungs decreased breath sounds bilaterally. Heart regular rhythm with no murmur. Abdomen is obese, distended, tender to palpation, Incision noted with a gabriela drain in the rt side, feeding tube on the left side with ongoing drainage Extremities superficial ulcerations over the anterior tibial aspects of both legs, with 1+ edema bilaterally. Neuro is without focality. 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 with prolonged antibiotic, previous history of peptic ulcer disease, diabetes, sinus rhythm upon admission was on Tikosyn, hyperlipidemia, apparently has never smoked before, previous history of lithotripsy, CABG, previous hip prosthesis infection status post removal of prosthesis in early 2016 now has the following issues * S/p Perf large DU ulcer s/p surg with unsuccessful du repair with peritonitis, persistant leak / now has sig gabriela drainage with ng suction and somatostatin / Had significant fluid collection in the right paracolic gutter reinsertion of pig tail with prob has necrotizing fascitis of the abd wall/ minimal drainage from the cath recently * S/p Severe shock septic on multiple pressors now off pressors, with ongoing intraabd sepsis and prob atx and pna * Hypoxic respiratory failureSputum does have enterobacter and staph / s/p trach 08/23, now more hypoxic rule out pna and other pathology * Sig drainage from the gabriela biliary leak and fluid collection which is ongoing/ with fluid collection which is pyogenic * Significant ischemic heart disease with low ejection fraction high risk for fluid overload. Previous pafib in sinus now with a pacer and AICD. 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 * H/O LIAM was on cpap now with trach * On and off diarrhea * Recent stroke and sig sinusitis * s/p trach * Altered lfts prob related to amiodarone Significant worsening overall performance status with on and off hypoxemia and desaturation RECOMMENDATION Family meeting again held with the next of kin nephew Max. He did discuss with his family regarding the overall care of Mr. Walls. He does now wish to have hospice involved the next 2 days if he does not improve. At this present time he does not wish any further invasive workup but he wants to continue present therapy as his. Plan * COnt current care and off antibiotics per ID * Amio to 200 daily * Intravenous pantoprazole * Heparin subcutaneous * Octreotide sub cut * Watch off abx * Trach care as per protocol / Can cont psv trials and trach mask trials if katarina daily / DNR / no further invasive workup for any further imaging studies. If the patient were to continue to deteriorate we will consider making him comfort care. And if he does not improve we will have hospice team get involved on Tuesday. Patient critically ill total time spent 45 minutes
[2017-09-04 16:00] VITALS: BP 122/62
[2017-09-04 23:00] VITALS: BP 112/60
[2017-09-05 04:58] LABS: ABSOLUTE BASOPHIL COUNT 0.1 /CUMM (0.0-0.2); ABSOLUTE EOSINOPHIL COUNT 0.1 /CUMM (0.0-0.7); ABSOLUTE LYMPH COUNT 3.1 /CUMM (1.2-3.4); ABSOLUTE MONOCYTE COUNT 0.9 /CUMM (0.10-0.60); BASOPHIL % 0.5 % (0.0-2.0); GRANULOCYTE % 62.4 % (42.2-75.2); MEAN CORPUSCULAR HGB 31.3 PG (27.0-31.0); MEAN CORPUSCULAR HGB CONC 32.2 G/DL (33.0-37.0); MEAN CORPUSCULAR VOLUME 97.3 FL (80.0-94.0); MEAN PLATELET VOLUME 8.5 FL (7.4-10.4); PLATELET COUNT 240 /CUMM (130-400); RBC DISTRIBUTION WIDTH 22.3 % (11.5-14.5); RED BLOOD CELL CT 3.09 /CUMM (4.70-6.10); WHITE BLOOD CELL COUNT 11.2 /CUMM (4.8-10.8)
[2017-09-05 08:00] VITALS: BP 108/60
--- NOTE | 2017-09-05 08:05 | RADIOLOGY REPORT ---
EXAMINATION: XR PORTABLE CHEST CLINICAL INFORMATION: Status post-post tracheostomy placement. COMPARISON: Prior chest radiographs, most recently 09/04/2017. TECHNIQUE: Portable frontal view of the chest was obtained. FINDINGS: There is stable cardiomegaly. There has been a prior median sternotomy. A tracheostomy tube is present, with tip situated 3.2 cm superior to the kika. No change in pacemaker lead positions or lead fracture is seen. There are small bilateral pleural effusions. There is mild bibasilar airspace disease, left greater than right. No pneumothorax is seen. There is no acute osseous abnormality. IMPRESSION: 1. Tracheostomy tube tip positions are as above. 2. There are small bilateral pleural effusions again seen, with stable adjacent bibasilar airspace disease, left greater than right 3. There is cardiomegaly, without congestive heart failure.
--- NOTE | 2017-09-05 10:09 | PN- Resident CRCU ---
Subjective HPI/CRCU Issues: Septic shock secondary to perforated duodenal ulcer A/P Fabrizio patch Respiratory failure status post tracheostomy History of PAF on Tikosyn On amiodarone for arrhythmia 24 Hour Events: Mr Walls was seen and examined this morning. Resting comfortably in bed. Unable to complain of any issues overnight. He is able to open his eyes on verbal command. Unable to follow motor commands when requested. Objective Vital Signs & I&O Last 8 Hrs of Vitals and I&O: Intake & Output 09/06 1600 Intake Total 200 Output Total 400 Balance -200 Intake, IV 200 Number 1 Bowel Movements Output, 100 Drainage Output, 0 Gastric Drainage Output, Urine 300 Exam General Appearance: sedated, intubated Head: atraumatic Ears, Nose, Throat: normal pharynx, tracheostomy in place Respiratory: decreased breath sounds Cardiovascular: regular rate/rhythm Gastrointestinal: normal bowel sounds, WILLEM drain site on the right.percutaneous drains on the left. Extremities: trace bipedal edema Weaning Parameters NIF: 21 Minute Volume: 9.39 Resp rate: 42 Vt: 225 Heart Rate: 69 Weaning Schedule Start Time: 1920 Minute Volume: 11.1 Resp Rate: 33 Vt: 335 Heart Rate: 69 End Time: 2100 Minute Volume: 7.08 Resp Rate: 27 Vt: 290 Heart Rate: 69 Start Time: 1045 Resp Rate: 28 Heart Rate: 69 End Time: 1305 Resp Rate: 35 Heart Rate: 69 Current Medications: Current Medications Sig/Buck Start time Last Medication Dose Route Stop Time Status Admin Acetaminophen 1,000 MG Q6P PRN 07/16 0530 DC 07/20 N/A 1 UNIT IV 0659 Albuterol Sulfate 3 ML EVERY 4 HRS/AWAKE 07/27 0800 DC 09/06 INH 0814 Amiodarone HCl 200 MG DAILY 09/03 1000 DC 09/05 PO 1009 Aspirin 81 MG DAILY 08/16 2345 DC 09/05 PO 1008 Atorvastatin Calcium 40 MG 1700 08/16 1700 DC 09/05 PO 1628 Budesonide/ 2 PUF BID 07/26 1056 DC 09/06 Formoterol Fumarate INH 0815 Carvedilol 3.125 MG BID 07/28 1000 DC 09/05 PO 2241 Chlorhexidine 15 ML 4 TIMES/DAY 09/05 1109 DCD 09/06 Gluconate PO 1355 Dextrose/Sodium 1,000 ML Q20H 09/06 0100 DC 09/06 Chloride IV 0124 Fentanyl Citrate 25 MCG Q4P PRN 08/05 2130 DCD 08/27 IV 0026 Glycerin 2 SPRAY Q2P PRN 08/10 0445 DCD 08/27 PO 1028 Heparin Sodium 5,000 UNIT Q8 08/05 1400 DC 09/05 (Porcine) SC 1432 Insulin Aspart 0 Q6 08/27 1800 DC 09/05 SC 1749 Insulin Detemir 16 UNITS BID 08/25 1000 DC 09/05 SC 2240 Lidocaine 1 GENE BID PRN 08/25 0845 DCD 08/25 TOP 1029 Lisinopril 5 MG DAILY 09/06 1000 CAN PO Lorazepam 1 MG Q1 NEEDED PRN 09/06 1445 DCD IV Lorazepam 1 MG Q4P PRN 09/06 1000 DC 09/06 IV 1255 Magnesium Oxide 400 MG BID 08/28 1216 DC 09/05 PO 2240 Morphine Sulfate 4 MG Q1 NEEDED PRN 09/06 1000 DCD 09/06 IV 1443 Morphine Sulfate 2 MG Q6P PRN 09/04 1315 DC 09/04 IV 2028 Octreotide Acetate 100 MCG TID 08/29 2200 DC 09/05 IV 2243 Pantoprazole Sodium 40 MG BID 07/10 1016 DC 09/05 IV 2242 Impression/Plan Impression/Problem List Impression: This is a 76-year-old male with past medical history of CAD with HFrEF, A. fib, AICD, previous infection of the hip with prolonged antibiotic, history of peptic ulcer disease, diabetes, nephrolithiasis who was transferred to the ICU for perforation of the duodenum with septic shock S/P repair with patch. Repeated CT of the abdomen performed on 07/15 revealed free air/extravasation of contrast into the peritoneal cavity and he was taken to the OR for ex-lap and had re- repair of duodenal ulcer with Fabrizio patch. He remained intubated with subsequent wean trials and extubated on 07/23/2017, unfortunately he was re- intubated on 07/26/2017 as the patient was desaturating. On 08/23 patient had a trach placed. Plan #Septic shock secondary to perforated duodenal ulcer A/P Fabrizio patch and persistent respiratory failure status post tracheostomy. Duvall DCed as per ID Micro cx with VRE and respiratory cx with VRE. Repeat sputum cx on 08/02 shows GPC and mold. A repeat swab of the draining wound on abdomen showed E. coli and Beta strep Group B. BCx negative to date. Negative aspergillus antibody. H.pylori negative. Aug 08 body cx growing enterobacter aerogenes. Respiratory cx on 08/08 enterobacter aerogenes and staph aureus. * D/C Meropenem 07/30 and D/C Cubicin Day 08/01. * Duvall continued * As per ID recomendations will conitune follow the patient off antibiotics, Antibiotics discontinued on 08/24/2017. * Continue NG tube irrigation * Continue on PRN fentanyl for sedation. * Continue Protonix IV 40 mg twice a day * Octreotide SC 100 mcg TID * Foul-smelling discharge from the WILLEM drain site. Plan to repeat a CAT scan of the abdomen and pelvis if patient spikes a fever/significant leukocytosis. Surgery following, no plan for taking patient to OR * Trach placed 08/23, will continue trach care as per instructions, PSV trials to continue. Will attempt mask trials . * Poor prognosis. Multiple discussions held with nephew. Patient currently DNR. * No unnecessary x-rays. History of PAF on Tikosyn * Continue to hold the Tikosyn * Occasional PVC's with no ventricular tachycardia since beginning Amiodarone * On amiodarone 200 daily * Cardiology on board DM: * Goal glucose between [id number]. * FSGs were:158,184,165, * Appreciate endocrinology recommendation. * Con't FS * Con't RISS as per scale. Continue Levemir 16 units BID. USMAN: RESOLVED. Hyponatremia: RESOLVED. Guarded prognosis/plan to make comfort care on Tuesday./No aggressive interventions. DNR NPO, On tube feeds DVT prophylaxis with subcutaneous heparin Problem List: 1. Acute renal failure 2. Peritonitis 3. Duodenal ulcer with perforation Pain Ratin Pain Location: na Tomorrow's Labs & Rationales: CBC, ICU bundle INTUBATED Plan DVT/Prophylaxis: mechanical, pharmacological
--- NOTE | 2017-09-05 11:23 | PN- CRCU ---
Subjective HPI/Critical Care Issues: Mr Walls was seen and examined this morning. Resting comfortably in bed. Unable to complain of any issues overnight. He is able to open his eyes on verbal command. Unable to follow motor commands when requested. Objective Current Medications: Current Medications Sig/Buck Start time Last Medication Dose Route Stop Time Status Admin Acetaminophen 1,000 MG Q6P PRN 07/16 0530 AC 07/20 N/A 1 UNIT IV 0659 Albuterol Sulfate 3 ML EVERY 4 HRS/AWAKE 07/27 0800 AC 09/05 INH 0853 Alteplase, 2 MG ONE ONE 09/05 0915 DC 09/05 Recombinant IV 09/05 0916 1008 Amiodarone HCl 200 MG DAILY 09/03 1000 AC 09/05 PO 1009 Aspirin 81 MG DAILY 08/16 2345 AC 09/05 PO 1008 Atorvastatin Calcium 40 MG 1700 08/16 1700 AC 09/04 PO 1639 Budesonide/ 2 PUF BID 07/26 1056 AC 09/05 Formoterol Fumarate INH 0853 Carvedilol 3.125 MG BID 07/28 1000 AC 09/05 PO 1008 Chlorhexidine 15 ML 4 TIMES/DAY 09/05 1109 AC Gluconate PO Fentanyl Citrate 25 MCG Q4P PRN 08/05 2130 AC 08/27 IV 0026 Glycerin 2 SPRAY Q2P PRN 08/10 0445 AC 08/27 PO 1028 Heparin Sodium 5,000 UNIT Q8 08/05 1400 AC 09/05 (Porcine) SC 0651 Insulin Aspart 0 Q6 08/27 1800 AC 09/05 SC 0638 Insulin Detemir 16 UNITS BID 08/25 1000 AC 09/05 SC 1010 Lidocaine 1 GENE BID PRN 08/25 0845 AC 08/25 TOP 1029 Magnesium Oxide 400 MG BID 08/28 1216 AC 09/05 PO 1008 Morphine Sulfate 2 MG ONCE ONE 09/04 1315 DC 09/04 IV 09/04 1316 1402 Morphine Sulfate 2 MG Q6P PRN 09/04 1315 AC 09/04 IV 2028 Octreotide Acetate 100 MCG TID 08/29 2200 AC 09/05 IV 1009 Pantoprazole Sodium 40 MG BID 07/10 1016 AC 09/05 IV 1009 Vital Signs & I&O Last 24 Hrs of Vitals and I&O: Vital Signs Date Time Temp Pulse Resp B/P B/P Pulse O2 O2 Flow FiO2 Mean Ox Delivery Rate 09/05 1009 94 116/63 09/05 1008 93 116/62 09/05 0902 45 09/05 0800 98.2 72 26 108/60 96 Ventilator 45% 09/05 0800 94 Ventilator 45% 09/05 0616 45 09/05 0400 94 Ventilator 45% 09/05 0315 45 09/05 0033 45 09/05 0000 94 Ventilator 45% 09/04 2300 99.0 69 20 112/60 94 Ventilator 45% 09/04 2233 69 18 116/62 09/04 2218 45 09/04 2000 97 Ventilator 45% 09/04 1930 45 09/04 1615 45 09/04 1600 93 Ventilator 45% 09/04 1600 99.8 69 18 122/62 97 Ventilator 45% 09/04 1419 45 09/04 1200 96 Ventilator 45% Intake & Output 09/05 1600 09/05 0800 09/05 0000 Intake Total 804 1088 Output Total 1015 475 Balance -211 613 Intake, IV 90 Intake, Tube 739 733 Feeding Intake, Tube 65 265 Irrigant Output, 0 Drainage Output, 500 Gastric Drainage Output, Urine 515 475 Laboratory Tests 09/05 09/04 0423 0420 Chemistry Sodium (137 - 145 mmol/L) 144 144 Potassium (3.5 - 5.1 mmol/L) 4.2 4.3 Chloride (98 - 107 mmol/L) 108 H 109 H Carbon Dioxide (22 - 30 mmol/L) 28 27 Anion Gap (5 - 16) 8 7 BUN (9 - 20 mg/dL) 32 H 30 H Creatinine (0.7 - 1.2 mg/dL) 0.5 L 0.5 L Estimated GFR (>60 ml/min) > 60 > 60 Glucose (65 - 99 mg/dL) 158 H 165 H Calcium (8.4 - 10.2 mg/dL) 8.1 L 8.0 L Phosphorus (2.5 - 4.5 mg/dL) 3.4 3.4 Magnesium (1.6 - 2.3 mg/dL) 1.9 1.9 Total Bilirubin (0.2 - 1.3 mg/dL) 0.3 0.3 AST (17 - 59 U/L) 140 H 163 H ALT (21 - 72 U/L) 137 H 124 H Albumin (3.5 - 5.0 g/dL) 2.1 L 2.0 L Hematology CBC w Diff NO MAN DIFF REQ NO MAN DIFF REQ WBC (4.8 - 10.8 /CUMM) 11.2 H 9.6 RBC (4.70 - 6.10 /CUMM) 3.09 L 2.98 L Hgb (14.0 - 18.0 G/DL) 9.7 L 9.2 L Hct (42 - 52 %) 30.0 L 28.9 L MCV (80.0 - 94.0 FL) 97.3 H 96.9 H MCH (27.0 - 31.0 PG) 31.3 H 30.9 RDW (11.5 - 14.5 %) 22.3 H 22.5 H Plt Count (130 - 400 /CUMM) 240 232 MPV (7.4 - 10.4 FL) 8.5 8.6 Gran % (42.2 - 75.2 %) 62.4 62.4 Lymphocytes % (20.5 - 51.1 %) 28.0 27.2 Monocytes % (1.7 - 9.3 %) 8.1 8.7 Eosinophils % (0 - 5 %) 1.0 1.2 Basophils % (0.0 - 2.0 %) 0.5 0.5 Absolute Granulocytes (1.4 - 6.5 /CUMM) 7.0 H 6.0 Absolute Lymphocytes (1.2 - 3.4 /CUMM) 3.1 2.6 Absolute Monocytes (0.10 - 0.60 /CUMM) 0.9 H 0.8 H Absolute Eosinophils (0.0 - 0.7 /CUMM) 0.1 0.1 Absolute Basophils (0.0 - 0.2 /CUMM) 0.1 0 PUBS MCHC (33.0 - 37.0 G/DL) 32.2 L 31.9 L Microbiology Date/Time Procedure - Status Source Growth 09/030 Respiratory Culture - RES LOWER RESP GRAM NEGATIVE RODS 09/030 Gram Stain - RES LOWER RESP 09/03 1400 Respiratory Culture - CAN LOWER RESP Cancelled: NUMBER OF SQUAMOUS CELLS INDICATES POOR QUALITY SPECIMEN 09/03 1400 Gram Stain - CAN LOWER RESP Cancelled: NUMBER OF SQUAMOUS CELLS INDICATES POOR QUALITY SPECIMEN Impression/Plan Impression/Plan Impression/Plan: Afebrile. s/p trach bovona 8 Skin reveals no rash. HEENT negative. Neck supple with no adenopathy; Picc line in place Lungs decreased breath sounds bilaterally. Heart regular rhythm with no murmur. Abdomen is obese, distended, tender to palpation, Incision noted with a gabriela drain in the rt side, feeding tube on the left side with ongoing drainage Extremities superficial ulcerations over the anterior tibial aspects of both legs, with 1+ edema bilaterally. Neuro is without focality. 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 with prolonged antibiotic, previous history of peptic ulcer disease, diabetes, sinus rhythm upon admission was on Tikosyn, hyperlipidemia, apparently has never smoked before, previous history of lithotripsy, CABG, previous hip prosthesis infection status post removal of prosthesis in early 2016 now has the following issues * S/p Perf large DU ulcer s/p surg with unsuccessful du repair with peritonitis, persistant leak / now has sig gabriela drainage with ng suction and somatostatin / Had significant fluid collection in the right paracolic gutter reinsertion of pig tail with prob has necrotizing fascitis of the abd wall/ minimal drainage from the cath recently * S/p Severe shock septic on multiple pressors now off pressors, with ongoing intraabd sepsis and prob atx and pna * Hypoxic respiratory failureSputum does have enterobacter and staph / s/p trach 08/23, now more hypoxic rule out pna and other pathology * Sig drainage from the gabriela biliary leak and fluid collection which is ongoing/ with fluid collection which is pyogenic * Significant ischemic heart disease with low ejection fraction high risk for fluid overload. Previous pafib in sinus now with a pacer and AICD. 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 * H/O LIAM was on cpap now with trach * On and off diarrhea * Recent stroke and sig sinusitis * s/p trach * Altered lfts prob related to amiodarone Significant worsening overall performance status with on and off hypoxemia and desaturation RECOMMENDATION Family meeting again held with the next of kin nephew Max. He did discuss with his family regarding the overall care of Mr. Walls. He does now wish to have hospice involved tommorow. At this present time he does not wish any further invasive workup but he wants to continue present therapy as his. Plan * COnt current care and off antibiotics per ID * Amio to 200 daily * Intravenous pantoprazole * Heparin subcutaneous * Octreotide sub cut * Watch off abx * Trach care as per protocol / Can cont psv trials and trach mask trials if katarina daily / DNR / no further invasive workup for any further imaging studies. If the patient were to continue to deteriorate we will consider making him comfort care. Call hospice to see him in am Patient critically ill total time spent 45 minutes
--- NOTE | 2017-09-05 11:34 | PN- Cardiology ---
Subjective Subjective: Remains ventilated via tracheostomy. Objective Vital Signs and I&Os Vital Signs Date Time Temp Pulse Resp B/P B/P Pulse O2 O2 Flow FiO2 Mean Ox Delivery Rate 09/05 1131 45 09/05 1009 94 116/63 09/05 1008 93 116/62 09/05 0902 45 09/05 0800 98.2 72 26 108/60 96 Ventilator 45% 09/05 0800 94 Ventilator 45% 09/05 0616 45 09/05 0400 94 Ventilator 45% 09/05 0315 45 09/05 0033 45 09/05 0000 94 Ventilator 45% 09/04 2300 99.0 69 20 112/60 94 Ventilator 45% 09/04 2233 69 18 116/62 09/04 2218 45 09/04 2000 97 Ventilator 45% 09/04 1930 45 09/04 1615 45 09/04 1600 93 Ventilator 45% 09/04 1600 99.8 69 18 122/62 97 Ventilator 45% 09/04 1419 45 09/04 1200 96 Ventilator 45% Intake & Output 09/05 1600 09/05 0800 09/05 0000 09/04 1600 09/04 0800 09/04 0000 Intake Total 804 1088 522 878 8805 Output Total 1015 475 500 480 500 Balance -211 613 312 10 541 Intake, IV 90 40 60 Intake, Tube 739 733 592 410 716 Feeding Intake, Tube 65 265 180 80 265 Irrigant Number 1 Bowel Movements Output, 0 5 Drainage Output, 500 Gastric Drainage Output, Other 20 Output, Urine 515 475 500 480 475 Physical Exam: General: Ventilated via tracheostomy. Eyes: No obvious scleral icterus. HEENT: No jugular venous distention or abnormal jugular venous pulsations. Cardiovascular: Normal intensity S1/S2. Regular Respiratory: Decreased air entry at the bases Abdomen: Hypoactive bowel sounds Musculoskeletal: No clubbing or cyanosis noted; trace lower extremity edema Skin: Warm Current Medications: Current Medications Sig/Buck Start time Last Medication Dose Route Stop Time Status Admin Acetaminophen 1,000 MG Q6P PRN 07/16 0530 AC 07/20 N/A 1 UNIT IV 0659 Albuterol Sulfate 3 ML EVERY 4 HRS/AWAKE 07/27 08 AC 09/05 INH 0853 Alteplase, 2 MG ONE ONE 09/05 914 DC 09/05 Recombinant IV 09/05 0916 1008 Amiodarone HCl 200 MG DAILY 09/03 1000 AC 09/05 PO 1009 Aspirin 81 MG DAILY 08/16 2345 AC 09/05 PO 1008 Atorvastatin Calcium 40 MG 1700 08/16 1700 AC 09/04 PO 1639 Budesonide/ 2 PUF BID 07/26 1056 AC 09/05 Formoterol Fumarate INH 0853 Carvedilol 3.125 MG BID 07/28 1000 AC 09/05 PO 1008 Chlorhexidine 15 ML 4 TIMES/DAY 09/05 1109 AC Gluconate PO Fentanyl Citrate 25 MCG Q4P PRN 08/05 2130 AC 08/27 IV 0026 Glycerin 2 SPRAY Q2P PRN 08/10 0445 AC 08/27 PO 1028 Heparin Sodium 5,000 UNIT Q8 08/05 1400 AC 09/05 (Porcine) SC 0651 Insulin Aspart 0 Q6 08/27 1800 AC 09/05 SC 0638 Insulin Detemir 16 UNITS BID 08/25 1000 AC 09/05 SC 1010 Lidocaine 1 GENE BID PRN 08/25 0845 AC 08/25 TOP 1029 Magnesium Oxide 400 MG BID 08/28 1216 AC 09/05 PO 1008 Morphine Sulfate 2 MG ONCE ONE 09/04 1315 DC 09/04 IV 09/04 1316 1402 Morphine Sulfate 2 MG Q6P PRN 09/04 1315 AC 09/04 IV 2028 Octreotide Acetate 100 MCG TID 08/29 2200 AC 09/05 IV 1009 Pantoprazole Sodium 40 MG BID 07/10 1016 AC 09/05 IV 1009 Results Last 48 Hrs of Labs/Mics: Laboratory Tests 09/05/17 0423: Anion Gap 8, Estimated GFR > 60, Glucose 158 H, Calcium 8.1 L, Phosphorus 3.4, Magnesium 1.9, Total Bilirubin 0.3, AST 140 H, ALT 137 H, Albumin 2.1 L, CBC w Diff NO MAN DIFF REQ, RBC 3.09 L, MCV 97.3 H, MCH 31.3 H, RDW 22.3 H, MPV 8.5, Gran % 62.4, Lymphocytes % 28.0, Monocytes % 8.1, Eosinophils % 1.0, Basophils % 0.5, Absolute Granulocytes 7.0 H, Absolute Lymphocytes 3.1, Absolute Monocytes 0.9 H, Absolute Eosinophils 0.1, Absolute Basophils 0.1, PUBS MCHC 32.2 L 09/04/17 0420: Anion Gap 7, Estimated GFR > 60, Glucose 165 H, Calcium 8.0 L, Phosphorus 3.4, Magnesium 1.9, Total Bilirubin 0.3, AST 163 H, ALT 124 H, Albumin 2.0 L, CBC w Diff NO MAN DIFF REQ, RBC 2.98 L, MCV 96.9 H, MCH 30.9, RDW 22.5 H, MPV 8.6 , Gran % 62.4, Lymphocytes % 27.2, Monocytes % 8.7, Eosinophils % 1.2, Basophils % 0.5, Absolute Granulocytes 6.0, Absolute Lymphocytes 2.6, Absolute Monocytes 0.8 H, Absolute Eosinophils 0.1, Absolute Basophils 0, PUBS MCHC 31.9 L Recent Imaging Studies: Telemetry tracings were personally reviewed and show paced rhythm with some electronic noise CXR: 1. Tracheostomy tube tip positions are as above. 2. There are small bilateral pleural effusions again seen, with stable adjacent bibasilar airspace disease, left greater than right 3. There is cardiomegaly, without congestive heart failure. Assessment/Plan Assessment/Plan 1. Bowel perforation 2. Septic shock 3. Coronary artery disease/CABG hx 4. NSVT 5. PAF 6. Ischemic cardiomyopathy 7. AICD in situ Telemetry shows paced rhythm with some electronic noise but no evidence of sustained arrhythmia. Remains hemodynamically stable. Continue on amiodarone and carvedilol. May benefit from the addition of low-dose CLARISA inhibitor if blood pressure tolerates given his cardiomyopathy. Goals of care are being discussed. Lorenzo Estrella MD [facility] Continue telemetry? Yes
[2017-09-05 16:00] VITALS: BP 100/60
[2017-09-05 18:50] LABS: ABSOLUTE BASOPHIL COUNT 0 /CUMM (0.0-0.2); ABSOLUTE EOSINOPHIL COUNT 0.1 /CUMM (0.0-0.7); ABSOLUTE GRANULOCYTE CT 8.7 /CUMM (1.4-6.5); ABSOLUTE LYMPH COUNT 3.3 /CUMM (1.2-3.4); ABSOLUTE MONOCYTE COUNT 0.8 /CUMM (0.10-0.60); BASOPHIL % 0.3 % (0.0-2.0); EOSINOPHIL % 0.4 % (0-5); GRANULOCYTE % 67.3 % (42.2-75.2); HEMATOCRIT 29.1 % (42-52); MEAN CORPUSCULAR HGB 31.1 PG (27.0-31.0); MEAN CORPUSCULAR VOLUME 97.2 FL (80.0-94.0); MEAN PLATELET VOLUME 8.9 FL (7.4-10.4); PLATELET COUNT 247 /CUMM (130-400); RBC DISTRIBUTION WIDTH 21.9 % (11.5-14.5); RED BLOOD CELL CT 2.99 /CUMM (4.70-6.10); WHITE BLOOD CELL COUNT 12.9 /CUMM (4.8-10.8)
[2017-09-06] VITALS: BP 100/54
[2017-09-06 05:28] LABS: ABSOLUTE BASOPHIL COUNT 0.1 /CUMM (0.0-0.2); ABSOLUTE EOSINOPHIL COUNT 0.1 /CUMM (0.0-0.7); ABSOLUTE GRANULOCYTE CT 6.4 /CUMM (1.4-6.5); ABSOLUTE LYMPH COUNT 2.5 /CUMM (1.2-3.4); ABSOLUTE MONOCYTE COUNT 0.6 /CUMM (0.10-0.60); BASOPHIL % 0.5 % (0.0-2.0); EOSINOPHIL % 0.8 % (0-5); GRANULOCYTE % 66.1 % (42.2-75.2); HEMATOCRIT 27.2 % (42-52); MEAN CORPUSCULAR HGB 31.1 PG (27.0-31.0); MEAN CORPUSCULAR HGB CONC 31.7 G/DL (33.0-37.0); MEAN PLATELET VOLUME 8.7 FL (7.4-10.4); PLATELET COUNT 201 /CUMM (130-400); RED BLOOD CELL CT 2.77 /CUMM (4.70-6.10); WHITE BLOOD CELL COUNT 9.7 /CUMM (4.8-10.8)
[2017-09-06 08:00] VITALS: BP 92/50
--- NOTE | 2017-09-06 08:53 | PN- Resident CRCU ---
Subjective HPI/CRCU Issues: Septic shock secondary to perforated duodenal ulcer A/P Fabrizio patch Respiratory failure status post tracheostomy Lower GI bleeding History of PAF on Tikosyn On amiodarone for arrhythmia 24 Hour Events: Mr Walls was seen and examined this morning. Resting comfortably in bed. Unable to complain of any issues overnight. He is able to open his eyes to pain stimuli otherwise unable to follow motor commands when requested. P.t had lower GI bleeding started yesterday, his tube feeding in on hold. His blood pressure in Mid 80s SPB. Spoke with the patient nephew and we discussed with him the goal of care and he agreed to place the patient on comfort measure and he will come over to discuss hospice evaluation. Objective Vital Signs & I&O Last 8 Hrs of Vitals and I&O: Vital Signs Date Time Temp Pulse Resp B/P B/P Pulse O2 O2 Flow FiO2 Mean Ox Delivery Rate 09/06 08 45 09/06 0800 96.1 69 14 92/50 93 Ventilator 45% 09/06 0800 93 Ventilator 45% 09/06 0539 45 09/06 0400 96 Ventilator 45% 09/06 0306 45 09/06 0000 99.2 68 11 100/54 91 Ventilator 45% 09/06 0000 91 Ventilator 45% 09/05 2241 45 09/05 2241 73 117/61 09/05 2013 45 09/05 2000 91 Ventilator 45% 09/05 1610 45 09/05 1600 98.2 70 16 100/60 98 Ventilator 45% 09/05 1552 94 Ventilator 45% 09/05 1440 45 09/05 1200 94 Ventilator 45% 09/05 1131 45 09/05 1009 94 116/63 09/05 1008 93 116/62 Intake & Output 09/06 1600 09/06 0800 09/06 0000 Intake Total 270 285 Output Total 550 745 Balance -280 -460 Intake, IV 270 40 Intake, Oral 0 Intake, Tube 85 Feeding Intake, Tube 160 Irrigant Number 0 1 Bowel Movements Output, 200 195 Drainage Output, 0 50 Gastric Drainage Output, Urine 350 500 Exam General Appearance: sedated, intubated, obese, trac noted Head: atraumatic Ears, Nose, Throat: tracheostomy noted Respiratory: chest non-tender, decreased breath sounds Cardiovascular: regular rate/rhythm Gastrointestinal: right WILLEM drain noted, right colostomy noted , precutaneous drains on left Extremities: trace edema Weaning Parameters NIF: 21 Minute Volume: 9.39 Resp rate: 42 Vt: 225 Heart Rate: 69 Weaning Schedule Start Time: 1920 Minute Volume: 11.1 Resp Rate: 33 Vt: 335 Heart Rate: 69 End Time: 2100 Minute Volume: 7.08 Resp Rate: 27 Vt: 290 Heart Rate: 69 Start Time: 1045 Resp Rate: 28 Heart Rate: 69 End Time: 1305 Resp Rate: 35 Heart Rate: 69 Current Medications: Current Medications Sig/Buck Start time Last Medication Dose Route Stop Time Status Admin Acetaminophen 1,000 MG Q6P PRN 07/16 0530 AC 07/20 N/A 1 UNIT IV 0659 Albuterol Sulfate 3 ML EVERY 4 HRS/AWAKE 07/27 0800 AC 09/06 INH 0814 Amiodarone HCl 200 MG DAILY 09/03 1000 AC 09/05 PO 1009 Aspirin 81 MG DAILY 08/16 2345 AC 09/05 PO 1008 Atorvastatin Calcium 40 MG 1700 08/16 1700 AC 09/05 PO 1628 Budesonide/ 2 PUF BID 07/26 1056 AC 09/06 Formoterol Fumarate INH 0815 Carvedilol 3.125 MG BID 07/28 1000 AC 09/05 PO 2241 Chlorhexidine 15 ML 4 TIMES/DAY 09/05 1109 AC 09/05 Gluconate PO 2242 Dextrose/Sodium 1,000 ML Q20H 09/06 0100 AC 09/06 Chloride IV 0124 Fentanyl Citrate 25 MCG Q4P PRN 08/05 2130 AC 08/27 IV 0026 Glycerin 2 SPRAY Q2P PRN 08/10 0445 AC 08/27 PO 1028 Heparin Sodium 5,000 UNIT Q8 08/05 1400 DC 09/05 (Porcine) SC 1432 Insulin Aspart 0 Q6 08/27 1800 AC 09/05 SC 1749 Insulin Detemir 16 UNITS BID 08/25 1000 AC 09/05 SC 2240 Lidocaine 1 GENE BID PRN 08/25 0845 AC 08/25 TOP 1029 Lisinopril 5 MG DAILY 09/06 1000 AC PO Magnesium Oxide 400 MG BID 08/28 1216 AC 09/05 PO 2240 Morphine Sulfate 2 MG Q6P PRN 09/04 1315 AC 09/04 IV 2028 Octreotide Acetate 100 MCG TID 08/29 2200 AC 09/05 IV 2243 Pantoprazole Sodium 40 MG BID 07/10 1016 AC 09/05 IV 2242 Results Results: Laboratory Tests 09/06 09/05 5530 1757 Chemistry Sodium (137 - 145 mmol/L) 144 Potassium (3.5 - 5.1 mmol/L) 4.1 Chloride (98 - 107 mmol/L) 109 H Carbon Dioxide (22 - 30 mmol/L) 31 H Anion Gap (5 - 16) 4 L BUN (9 - 20 mg/dL) 26 H Creatinine (0.7 - 1.2 mg/dL) 0.5 L Estimated GFR (>60 ml/min) > 60 Glucose (65 - 99 mg/dL) 92 Calcium (8.4 - 10.2 mg/dL) 8.2 L Phosphorus (2.5 - 4.5 mg/dL) 3.7 Magnesium (1.6 - 2.3 mg/dL) 1.9 Total Bilirubin (0.2 - 1.3 mg/dL) 0.4 AST (17 - 59 U/L) 58 ALT (21 - 72 U/L) 92 H Albumin (3.5 - 5.0 g/dL) 1.9 L Hematology CBC w Diff NO MAN DIFF REQ NO MAN DIFF REQ WBC (4.8 - 10.8 /CUMM) 9.7 12.9 H RBC (4.70 - 6.10 /CUMM) 2.77 L 2.99 L Hgb (14.0 - 18.0 G/DL) 8.6 L 9.3 L Hct (42 - 52 %) 27.2 L 29.1 L MCV (80.0 - 94.0 FL) 98.0 H 97.2 H MCH (27.0 - 31.0 PG) 31.1 H 31.1 H RDW (11.5 - 14.5 %) 22.0 H 21.9 H Plt Count (130 - 400 /CUMM) 201 247 MPV (7.4 - 10.4 FL) 8.7 8.9 Gran % (42.2 - 75.2 %) 66.1 67.3 Lymphocytes % (20.5 - 51.1 %) 26.1 25.4 Monocytes % (1.7 - 9.3 %) 6.5 6.6 Eosinophils % (0 - 5 %) 0.8 0.4 Basophils % (0.0 - 2.0 %) 0.5 0.3 Absolute Granulocytes (1.4 - 6.5 /CUMM) 6.4 8.7 H Absolute Lymphocytes (1.2 - 3.4 /CUMM) 2.5 3.3 Absolute Monocytes (0.10 - 0.60 /CUMM) 0.6 0.8 H Absolute Eosinophils (0.0 - 0.7 /CUMM) 0.1 0.1 Absolute Basophils (0.0 - 0.2 /CUMM) 0.1 0 PUBS MCHC (33.0 - 37.0 G/DL) 31.7 L 32.0 L Impression/Plan Impression/Problem List Impression: This is a 76-year-old male with past medical history of CAD with HFrEF, A. fib, AICD, previous infection of the hip with prolonged antibiotic, history of peptic ulcer disease, diabetes, nephrolithiasis who was transferred to the ICU for perforation of the duodenum with septic shock S/P repair with patch. Repeated CT of the abdomen performed on 07/15 revealed free air/extravasation of contrast into the peritoneal cavity and he was taken to the OR for ex-lap and had re- repair of duodenal ulcer with Fabrizio patch. He remained intubated with subsequent wean trials and extubated on 07/23/2017, unfortunately he was re- intubated on 07/26/2017 as the patient was desaturating. On 08/23 patient had a trach placed. Problem list:. - Lower GI bleeding tube feeding on hold. - Bowel perforation S/P repair with patch and ex-lap and had re-repair. - Septic shock off pressor - DM - USMAN/hyponatremia-resolved - Coronary artery disease/CABG hx - NSVT - PAF - Ischemic cardiomyopathy - AICD in situ Plan: -We change CODE STATUS to comfort -To be evaluated by hospice team for inpatient hospice, After evaluation by hospice we will terminal extubate him. -Discontinue his tube feeding -We DC all his current medication which keep the patient on morphine 4 mg IV every one hour, Ativan IV, will continue his trach care until extubated. -We'll hold off any blood work, blood transfusion. Problem List: 1. Rectal bleeding 2. Perforated viscus Pain Ratin Tomorrow's Labs & Rationales: none. Plan DVT/Prophylaxis: mechanical, pharmacological
--- NOTE | 2017-09-06 09:43 | PN- CRCU ---
Subjective HPI/Critical Care Issues: Events and data reviewed Pt doing poorly Has had a GI bleed and is becoming more hypoxic More lethargic now Objective Current Medications: Current Medications Sig/Buck Start time Last Medication Dose Route Stop Time Status Admin Acetaminophen 1,000 MG Q6P PRN 07/16 0530 AC 07/20 N/A 1 UNIT IV 0659 Albuterol Sulfate 3 ML EVERY 4 HRS/AWAKE 07/27 0800 AC 09/06 INH 0814 Amiodarone HCl 200 MG DAILY 09/03 1000 AC 09/05 PO 1009 Aspirin 81 MG DAILY 08/16 2345 AC 09/05 PO 1008 Atorvastatin Calcium 40 MG 1700 08/16 1700 AC 09/05 PO 1628 Budesonide/ 2 PUF BID 07/26 1056 AC 09/06 Formoterol Fumarate INH 0815 Carvedilol 3.125 MG BID 07/28 1000 AC 09/05 PO 2241 Chlorhexidine 15 ML 4 TIMES/DAY 09/05 1109 AC 09/05 Gluconate PO 2242 Dextrose/Sodium 1,000 ML Q20H 09/06 0100 AC 09/06 Chloride IV 0124 Fentanyl Citrate 25 MCG Q4P PRN 08/05 2130 AC 08/27 IV 0026 Glycerin 2 SPRAY Q2P PRN 08/10 0445 AC 08/27 PO 1028 Heparin Sodium 5,000 UNIT Q8 08/05 1400 DC 09/05 (Porcine) SC 1432 Insulin Aspart 0 Q6 08/27 1800 AC 09/05 SC 1749 Insulin Detemir 16 UNITS BID 08/25 1000 AC 09/05 SC 2240 Lidocaine 1 GENE BID PRN 08/25 0845 AC 08/25 TOP 1029 Lisinopril 5 MG DAILY 09/06 1000 AC PO Magnesium Oxide 400 MG BID 08/28 1216 AC 09/05 PO 2240 Morphine Sulfate 2 MG Q6P PRN 09/04 1315 AC 09/04 IV 2028 Octreotide Acetate 100 MCG TID 08/29 2200 AC 09/05 IV 2243 Pantoprazole Sodium 40 MG BID 07/10 1016 AC 09/05 IV 2242 Vital Signs & I&O Last 24 Hrs of Vitals and I&O: Vital Signs Date Time Temp Pulse Resp B/P B/P Pulse O2 O2 Flow FiO2 Mean Ox Delivery Rate 09/06 0819 45 09/06 08 96.1 69 14 92/50 93 Ventilator 45% 09/06 0800 93 Ventilator 45% 09/06 0539 45 09/06 0400 96 Ventilator 45% 09/06 0306 45 09/06 0000 99.2 68 11 100/54 91 Ventilator 45% 09/06 0000 91 Ventilator 45% 09/05 2241 45 09/05 2241 73 117/61 09/05 2013 45 09/05 2000 91 Ventilator 45% 09/05 1610 45 09/05 1600 98.2 70 16 100/60 98 Ventilator 45% 09/05 1552 94 Ventilator 45% 09/05 1440 45 09/05 1200 94 Ventilator 45% 09/05 1131 45 09/05 1009 94 116/63 09/05 1008 93 116/62 Intake & Output 09/06 1600 09/06 0800 09/06 0000 Intake Total 270 285 Output Total 550 745 Balance -280 -460 Intake, IV 270 40 Intake, Oral 0 Intake, Tube 85 Feeding Intake, Tube 160 Irrigant Number 0 1 Bowel Movements Output, 200 195 Drainage Output, 0 50 Gastric Drainage Output, Urine 350 500 Impression/Plan Impression/Plan Impression/Plan: Afebrile. s/p trach bovona 8 Skin reveals no rash. HEENT negative. Neck supple with no adenopathy; Picc line in place Lungs decreased breath sounds bilaterally. Heart regular rhythm with no murmur. Abdomen is obese, distended, tender to palpation, Incision noted with a gabriela drain in the rt side, feeding tube on the left side with ongoing drainage Extremities superficial ulcerations over the anterior tibial aspects of both legs, with 1+ edema bilaterally. Neuro is without focality. 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 with prolonged antibiotic, previous history of peptic ulcer disease, diabetes, sinus rhythm upon admission was on Tikosyn, hyperlipidemia, apparently has never smoked before, previous history of lithotripsy, CABG, previous hip prosthesis infection status post removal of prosthesis in early 2017 now has the following issues * S/p Perf large DU ulcer s/p surg with unsuccessful du repair with peritonitis, persistant leak / now has sig gabriela drainage with ng suction and somatostatin / Had significant fluid collection in the right paracolic gutter reinsertion of pig tail with prob has necrotizing fascitis of the abd wall/ minimal drainage from the cath recently * S/p Severe shock septic on multiple pressors now off pressors, with ongoing intraabd sepsis and prob atx and pna * Hypoxic respiratory failureSputum does have enterobacter and staph / s/p trach 08/23, now more hypoxic rule out pna and other pathology * Sig drainage from the gabriela biliary leak and fluid collection which is ongoing/ with fluid collection which is pyogenic * Significant ischemic heart disease with low ejection fraction high risk for fluid overload. Previous pafib in sinus now with a pacer and AICD. 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 * H/O LIAM was on cpap now with trach * On and off diarrhea * Recent stroke and sig sinusitis * s/p trach * Altered lfts prob related to amiodarone * Significant worsening overall performance status with on and off hypoxemia and desaturation, now with evidence of desat RECOMMENDATION See yesterdays note Discussed with olga ramirez over the phone today. Prior wishes of patient ( discussed with me when he was stable), and pts family wishes is to proceed with comfort care as he has shown sig deterioration despite very agg care. Will institute comfort care for now Hospice consult for inpatient hospice and terminal extubation DC tube feedings and all meds except morphine 2-4 mg iv q1 hrs fro comfort, and cont trach care for now Patient critically ill total time spent 40 minutes
--- NOTE | 2017-09-06 11:19 | PN- Cardiology ---
Subjective Subjective: Remains on ventilator status post tracheostomy. Objective Vital Signs and I&Os Vital Signs Date Time Temp Pulse Resp B/P B/P Pulse O2 O2 Flow FiO2 Mean Ox Delivery Rate 09/06 0819 45 09/06 0800 96.1 69 14 92/50 93 Ventilator 45% 09/06 0800 93 Ventilator 45% 09/06 0539 45 09/06 0400 96 Ventilator 45% 09/06 0306 45 09/06 0000 99.2 68 11 100/54 91 Ventilator 45% 09/06 0000 91 Ventilator 45% 09/05 2241 45 09/05 2241 73 117/61 09/05 2012 45 09/05 2000 91 Ventilator 45% 09/05 1610 45 09/05 1600 98.2 70 16 100/60 98 Ventilator 45% 09/05 1552 94 Ventilator 45% 09/05 1440 45 09/05 1200 94 Ventilator 45% 09/05 1131 45 Intake & Output 09/06 1600 09/06 0800 09/06 0000 09/05 1600 09/05 0800 09/05 0000 Intake Total 270 285 236 410 7799 Output Total 550 749 189 7897 475 Balance -280 -460 73 -211 613 Intake, IV 270 40 30 90 Intake, Oral 0 Intake, Tube 85 673 739 733 Feeding Intake, Tube 160 160 65 265 Irrigant Number 0 1 1 Bowel Movements Output, 200 195 40 0 Drainage Output, 0 50 350 500 Gastric Drainage Output, Other 0 Output, Urine 350 500 400 515 475 Physical Exam: Well developed, morbidly obese elderly male in no acute distress who remains on ventilator status post tracheostomy. Vital signs: See above. Neck: No JVD, no bruits. Lungs: Occasional rhonchi. Heart: S1, S2 with grade 2/6 systolic murmur. Abdomen: Soft, nontender, positive bowel sounds. Drains in place. Extremities: No edema. Current Medications: Current Medications Sig/Buck Start time Last Medication Dose Route Stop Time Status Admin Acetaminophen 1,000 MG Q6P PRN 07/16 0530 DC 07/20 N/A 1 UNIT IV 0659 Albuterol Sulfate 3 ML EVERY 4 HRS/AWAKE 07/27 08 DC 09/06 INH 0814 Amiodarone HCl 200 MG DAILY 09/03 1000 DC 09/05 PO 1009 Aspirin 81 MG DAILY 08/16 2345 DC 09/05 PO 1008 Atorvastatin Calcium 40 MG 1700 08/16 1700 DC 09/05 PO 1628 Budesonide/ 2 PUF BID 07/26 1056 DC 09/06 Formoterol Fumarate INH 0815 Carvedilol 3.125 MG BID 07/28 1000 DC 09/05 PO 2241 Chlorhexidine 15 ML 4 TIMES/DAY 09/05 1109 AC 09/06 Gluconate PO 1002 Dextrose/Sodium 1,000 ML Q20H 09/06 0100 AC 09/06 Chloride IV 0124 Fentanyl Citrate 25 MCG Q4P PRN 08/05 2130 AC 08/27 IV 0026 Glycerin 2 SPRAY Q2P PRN 08/10 0445 AC 08/27 PO 1028 Heparin Sodium 5,000 UNIT Q8 08/05 1400 DC 09/05 (Porcine) SC 1432 Insulin Aspart 0 Q6 08/27 1800 DC 09/05 SC 1749 Insulin Detemir 16 UNITS BID 08/25 1000 DC 09/05 SC 2240 Lidocaine 1 GENE BID PRN 08/25 0845 08/25 TOP 1029 Lisinopril 5 MG DAILY 09/06 1000 CAN PO Lorazepam 1 MG Q4P PRN 09/06 1000 AC IV Magnesium Oxide 400 MG BID 08/28 1216 DC 09/05 PO 2240 Morphine Sulfate 4 MG Q1 NEEDED PRN 09/06 1000 AC IV Morphine Sulfate 2 MG Q6P PRN 09/04 1315 DC 09/04 IV 2028 Octreotide Acetate 100 MCG TID 08/29 2200 DC 09/05 IV 2243 Pantoprazole Sodium 40 MG BID 07/10 1016 DC 09/05 IV 2242 Results Last 48 Hrs of Labs/Mics: Laboratory Tests 09/06/17 0410: Anion Gap 4 L, Estimated GFR > 60, Glucose 92, Calcium 8.2 L, Phosphorus 3.7, Magnesium 1.9, Total Bilirubin 0.4, AST 58, ALT 92 H, Albumin 1.9 L, CBC w Diff NO MAN DIFF REQ, RBC 2.77 L, MCV 98.0 H, MCH 31.1 H, RDW 22.0 H, MPV 8.7, Gran % 66.1, Lymphocytes % 26.1, Monocytes % 6.5, Eosinophils % 0.8, Basophils % 0.5, Absolute Granulocytes 6.4, Absolute Lymphocytes 2.5, Absolute Monocytes 0.6, Absolute Eosinophils 0.1, Absolute Basophils 0.1, PUBS MCHC 31.7 L 09/05/17 1757: CBC w Diff NO MAN DIFF REQ, RBC 2.99 L, MCV 97.2 H, MCH 31.1 H, RDW 21.9 H, MPV 8.9, Gran % 67.3, Lymphocytes % 25.4, Monocytes % 6.6, Eosinophils % 0.4, Basophils % 0.3, Absolute Granulocytes 8.7 H, Absolute Lymphocytes 3.3, Absolute Monocytes 0.8 H, Absolute Eosinophils 0.1, Absolute Basophils 0, PUBS MCHC 32.0 L 09/05/17 0423: Anion Gap 8, Estimated GFR > 60, Glucose 158 H, Calcium 8.1 L, Phosphorus 3.4, Magnesium 1.9, Total Bilirubin 0.3, AST 140 H, ALT 137 H, Albumin 2.1 L, CBC w Diff NO MAN DIFF REQ, RBC 3.09 L, MCV 97.3 H, MCH 31.3 H, RDW 22.3 H, MPV 8.5, Gran % 62.4, Lymphocytes % 28.0, Monocytes % 8.1, Eosinophils % 1.0, Basophils % 0.5, Absolute Granulocytes 7.0 H, Absolute Lymphocytes 3.1, Absolute Monocytes 0.9 H, Absolute Eosinophils 0.1, Absolute Basophils 0.1, PUBS MCHC 32.2 L Recent Imaging Studies: CXR 09/05/2017: 1. Tracheostomy tube tip positions are as above. 2. There are small bilateral pleural effusions again seen, with stable adjacent bibasilar airspace disease, left greater than right 3. There is cardiomegaly, without congestive heart failure. Assessment/Plan Assessment/Plan [id number] w/ hx of morbid obesity, LIAM on CPAP, COPD, HTN, HLD, DM, CAD/ICM (s/ p IMI in 1998, CABG 4 w/ WHITE to LAD and individual SVGs to Dx, OM, PDA & MAZE) , and recurrent PAF who presented in an unkempt state via ambulance w/ UTI & subsequently had a perforation of a duodenal ulcer for which he underwent surgery (Fabrizio patch) on 07/09/2017 with worsening clinical status requiring return to the OR on 07/16/2017 for exploratory laparotomy and suture repair duodenal ulcer with Fabrizio patch. Status post drainage of a left abdominal abscess on 08/08/2017 w/ pus aspiration & catheter in place. Hemodynamically stable with properly functioning AICD nearing end-of-life (EOL), but without immediate concern for pacemaker failure. Runs of NSVT prompted initiation of amiodarone. He is on amiodarone 40 mg twice daily for 1 week which will be decreased to 200 mg daily starting on 09/03/2017. No further NSVT since the initiation of amiodarone. Continued output from WILLEM drains and persistent purulent drainage from his incision, that is felt by surgery to represent necrotic fascia. He has been deemed a nonsurgical candidate for this issue. Tracheostomy performed 08/23/2017 and functioning properly. Recommendations: * Continue amiodarone 400 mg twice daily for one week and then cut back to 200 mg daily. * AICD functioning properly and should for months, even though at EOL. * Replete potassium and aim to maintain between 4.0-4.5 mEq per liter. * Replete magnesium and aim to maintain at or above 2.0 mEq per liter. * Continue to follow-up on infectious disease, critical care, endocrine, renal and surgical recommendations. * Continue DVT prophylaxis. Continue telemetry? Not applicable (In ICU.)
--- NOTE | 2017-09-07 16:24 | Discharge Summary ---
Visit Information Visit Dates Admission Date: 09/06/17 Discharge Date: 09/06/17 Hospital Course Course Attending Physician: Zhanna RODRÍGUEZ,Josselin Cornejo Primary Care Physician: Ian Barron MD Hospital Course: This is a 76-year-old man with a history of diabetes, coronary artery disease, status post CABG, paroxysmal atrial fibrillation, on Tikosyn but no anticoagulation, status post pacemaker/AICD, COPD, with obstructive sleep apnea, maintained on CPAP, GI bleed, BPH, osteoarthritis, venous insufficiency, status post right hip replacement 2-1/2 years prior to admission who was admitted on July 08 with increasing weakness and pain in his right hip. Labs on admission: He was febrile to 101.9. Laboratory data revealed a white blood cell count of 15,000, BUN/creatinine 21 and 0.9, lactic acid 3.6, bilirubin 1.4, proBNP 1540. 1. Perforated duodenal ulcer with peritonitis and septic shock: On July, patient complained of increased abdominal pain and was noted to have an increasing lactic acid and bandemia, with an increased creatinine to 1.7. A repeat CT of the abdomen and pelvis revealed free air and he was moved to the ICU and begun on Ceftazidime and Flagyl. He was evaluated by Surgery, with a right IJ inserted, and he was taken to the OR where he was found to have a perforated duodenal ulcer. Postoperatively he was given 1 dose of Vancomycin, continued on Flagyl and changed to Meropenem. He was begun on Levophed for borderline hypotension. During the course thereafter, he continued to be febrile off and on, his overall condition on 07/11/2017 look for any had continued drainage through the WILLEM drain that was placed post surgical exploration and Fabrizio patch repair of ulcer. The final OR cultures remain negative. His antibiotics were changed to Unasyn 3 g IV every 8 hours. On 03/2017, CT scan of the abdomen was obtained with oral contrast, which showed persistent leak. Initially it was planned to manage the duodenal leak on CT on a non-operative basis, but on 07/15/2017, the patient was found to be extremely tachypneic and complained of abdominal pain. Examination was concerning for reperforation/peritonitis. Re imaging of the abdomen revealed retained fluid and the patient was taken to the OR. The patient's condition improved and the antibiotics were continued, vancomycin and meropenem (07/18/2017). Body fluid culture grew heavy growth of gram-negative rods, culture growing Enterobacter, patient started on Vancomycin and Meropenem but after 3 days as per ID recommendations, Antibiotics changed Flagyl 500 mg IV every 8 hours and Ciprofloxacin 400 mg IV every 12 hours day.After the results from the OR culture , patient's antibiotics were changed to daptomycin and meropenem 07/19/2017. On around 07/21/17, he was extubated, but on 07/25/2017 there was concern for him developing abdominal pain; the following day he was again severely tachypneic and hypoxemic, requiring reintubation 07/26/2017. Patient failed extubation trials repeatedly and got a tracheostomy on 08/23/2017. During his prolonged stay, he has required pressor support with nor epi, vasopressin etc. for his hypotension secondary to sepsis from perforation and peritonitis. His clinical condition continued to deteriorate in the ICU and there were no plans to reoperate on him. After a long discussion with the family patient was finally made hospice on 09/06/2017. 2. History of CAD, ischemic cardiomyopathy, ventricular tachycardia status post defibrillator placement: Due to hypotension, patient's home medications were withheld. He continued to have a few PVCs during the course of his stay, but no antiarrhythmic was restarted for his nonsustained ventricular tachycardias. Of note, patient is on Tikosyn at home which was held in the ICU, and amiodarone drip was started and later transitioned to by mouth amiodarone for V. tach. Patient has electronic pacemaker nearing end-of-life (EOL), his pacemaker was interrogated twice while in the ICU. Finally it was deactivated prior to making minimal hospice. He was continued on carvedilol and amiodarone by mouth 3. Hyperglycemia: While the patient was in the ICU, given his overall condition , the fact that he was on octreotide drip (to manage the persistent leak from patch repair), continued pressor support, managing his blood sugars was challenging. An endocrinology evaluation was obtained, and the patient was started on insulin drip on 07/16/2017 for unknown DKA protocol. On 07/25/2017, patient's insulin drip was stopped. The patient continues to be on octreotide drip, which has been managed by the surgical team. He was continued on Levemir and NovoLog and blood sugars were checked 3 times a day. Endocrinology followed the patient while in the hospital. 4. Acute kidney injury: On 07/10/2017, patient developed peritoneal signs as described above and his kidney function started to worsen, which was likely prerenal and IV contrast administered for the CAT scan acting as an additional insult. Over the course of his stay, patient's overall kidney function improved and has returned back to normal with his creatinine being 0.9 on 07/26/2017. Nephrology was following the patient. -DVT prophylaxis ALPS and SC heparin - Diet Continue on J tube feeding - Code Status DNR initially Later made hospice on 09/06/2017 Allergies: Coded Allergies: NO KNOWN ALLERGIES (03/22/12) NKA PER DIPYRIDAMOLE ORDER SHEET - SJS Disposition Summary Disposition Principal Diagnosis: 1. Perforated duodenal ulcer with peritonitis and septic shock: Additional Diagnosis: 2. History of CAD, ischemic cardiomyopathy, ventricular tachycardia status post defibrillator placement Discharge Disposition: hospice - medical facilit Discharge Instructions General Discharge Information Code Status: Hospice Patient's Diet: tube feeding Patient's Activity: bedridden Follow-Up Instructions/Appts: follow up with hospice Copies To: Misael RODRÍGUEZ,Cayden Kim; Laura RODRÍGUEZ,Von Kim; Sophia RODRÍGUEZ,Dylon Velázquez; Atilio RODRÍGUEZ,Angel Davis
== END 2017-09-06 16:08 | disposition hospice, home (50) | DRG 3 ==
LOC: ERH 14:27 → CRI 16:52 → ERHI 16:52 → ENRESERV 17:54 → ENTRNSPT 19:44 → 2NA 20:21 → CMPTRNSPT 20:34 → CRI 07-09 12:22
PROVIDERS: Internal Medicine; Internal Medicine Adolescent Medicine; Internal Medicine Hematology & Oncology; Internal Medicine Infectious Disease; Physician Assistant Medical; Radiology Vascular & Interventional Radiology; Student in an Organized Health Care Education/Training Program
PROC: 0DBU0ZZ Excision of Omentum, Open Approach (ICD-10-PCS; 2017-07-09)
PROC: 0DU907Z Supplement Duodenum with Autologous Tissue Substitute, Open Approach (ICD-10-PCS; 2017-07-09)
PROC: 0W9G00Z Drainage of Peritoneal Cavity with Drainage Device, Open Approach (ICD-10-PCS; 2017-07-09)
PROC: 5A1955Z Respiratory Ventilation, Greater than 96 Consecutive Hours (ICD-10-PCS; 2017-07-09)
PROC: 0BH17EZ Insertion of Endotracheal Airway into Trachea, Via Natural or Artificial Opening (ICD-10-PCS; 2017-07-09)
PROC: 02HV33Z Insertion of Infusion Device into Superior Vena Cava, Percutaneous Approach (ICD-10-PCS; 2017-07-09)
PROC: 0D9670Z Drainage of Stomach with Drainage Device, Via Natural or Artificial Opening (ICD-10-PCS; 2017-07-13)
PROC: 0DHA0UZ Insertion of Feeding Device into Jejunum, Open Approach (ICD-10-PCS; 2017-07-15)
PROC: 0DQ90ZZ Repair Duodenum, Open Approach (ICD-10-PCS; 2017-07-15)
PROC: 0D9670Z Drainage of Stomach with Drainage Device, Via Natural or Artificial Opening (ICD-10-PCS; 2017-07-15)
PROC: 0BH17EZ Insertion of Endotracheal Airway into Trachea, Via Natural or Artificial Opening (ICD-10-PCS; 2017-07-15)
PROC: 5A1955Z Respiratory Ventilation, Greater than 96 Consecutive Hours (ICD-10-PCS; 2017-07-15)
PROC: 0BH17EZ Insertion of Endotracheal Airway into Trachea, Via Natural or Artificial Opening (ICD-10-PCS; 2017-07-26)
PROC: 5A1955Z Respiratory Ventilation, Greater than 96 Consecutive Hours (ICD-10-PCS; 2017-07-26)
PROC: 0W9G30Z Drainage of Peritoneal Cavity with Drainage Device, Percutaneous Approach (ICD-10-PCS; 2017-08-08)
PROC: 0W9G30Z Drainage of Peritoneal Cavity with Drainage Device, Percutaneous Approach (ICD-10-PCS; 2017-08-15)
PROC: 0B110F4 Bypass Trachea to Cutaneous with Tracheostomy Device, Open Approach (ICD-10-PCS; principal; 2017-08-23)
DX: A41.9 Sepsis, unspecified organism (principal); N17.0 Acute kidney failure with tubular necrosis; K65.1 Peritoneal abscess; I63.9 Cerebral infarction, unspecified; K26.5 Chronic or unspecified duodenal ulcer with perforation; R65.21 Severe sepsis with septic shock; I48.0 Paroxysmal atrial fibrillation; K65.9 Peritonitis, unspecified; E46 Unspecified protein-calorie malnutrition; I11.0 Hypertensive heart disease with heart failure; I48.92 Unspecified atrial flutter; E11.65 Type 2 diabetes mellitus with hyperglycemia; J96.01 Acute respiratory failure with hypoxia; I47.2 Ventricular tachycardia; E87.0 Hyperosmolality and hypernatremia; E87.2 Acidosis; I50.22 Chronic systolic (congestive) heart failure; N39.0 Urinary tract infection, site not specified; L97.929 Non-pressure chronic ulcer of unspecified part of left lower leg with unspecified severity; L97.919 Non-pressure chronic ulcer of unspecified part of right lower leg with unspecified severity; K92.2 Gastrointestinal hemorrhage, unspecified; Z51.5 Encounter for palliative care; E87.5 Hyperkalemia; J44.9 Chronic obstructive pulmonary disease, unspecified; E66.01 Morbid (severe) obesity due to excess calories; E83.51 Hypocalcemia; I25.5 Ischemic cardiomyopathy; E83.42 Hypomagnesemia; Z66 Do not resuscitate; G47.33 Obstructive sleep apnea (adult) (pediatric); I25.2 Old myocardial infarction; K59.00 Constipation, unspecified; I25.10 Atherosclerotic heart disease of native coronary artery without angina pectoris; Z68.37 Body mass index [BMI] 37.0-37.9, adult; I87.2 Venous insufficiency (chronic) (peripheral); N40.1 Benign prostatic hyperplasia with lower urinary tract symptoms; E78.5 Hyperlipidemia, unspecified; R33.8 Other retention of urine; Z95.1 Presence of aortocoronary bypass graft; Z79.84 Long term (current) use of oral hypoglycemic drugs; Z95.0 Presence of cardiac pacemaker
CPT/HCPCS: 2NASP; 84133; 84300; 87075; 87184; 87338; CCU; 36415; 71045; 74000; 74174; 74176; 74177; 75989; 80307; 81001; 82355; 82436; 82570; 86920; 87040; 87070; 87071; 87086; 87147; 87804; 87804-59; 93005; 93010; 93308; 93321; 93970; 94799; 96374; 96375; 97116-GO; 97161-GP; 97530-GO; C1769; C9399; J0131; J0610; J0696; J0713; J0744; J0878; J1450; J1644; J1650; J1720; J1815; J1885; J1940; J2185; J2354; J2405; J2920; J2997; J3010; J3370; J3490; J7040; J7042; J7060; J7608; Q9957; Q9965; Q9968

== ENCOUNTER 2017-09-06 16:13 | Inpatient (IN) | payer OTHER ==
[2017-09-06 16:00] VITALS: BP 120/50
--- NOTE | 2017-09-06 16:36 | History & Physical ---
General Information and HPI Chief Complaint: admit to hospice Source of Information: family, old records Exam Limitations: unable to give history, clinical condition Associated Symptoms: dyspnea History of Present Illness: Mr. Walls is an unfortunate 76 [id number] with PMHx of ischemic heart disease , atrial fibrillation, prior AICD, diabetes, who was admitted 2 months ago to [facility] with generalized weakness and abdominal pain. During this time his stay has been complicated by intubation and failed extubation trials, s/p tracheostomy 08/23/17, perforated duodenal ulcer (repaired with Fabrizio patch 07/09 and 07/16) with peritonitis and septic shock, ventricular tachycardia, cva, now with worsening overall status with respiratory failure with hypoxemia and desaturation on ventilator. His nephew wishes no further aggressive care and requests hospice care in view of patient's poor prognosis. Allergies/Medications Allergies: Coded Allergies: NO KNOWN ALLERGIES (03/22/12) NKA PER DIPYRIDAMOLE ORDER SHEET - SJS Past History Medical History Neurological: NONE EENT: hearing loss Cardiovascular: AFIB, CAD, cardiomyopathy (ischemic. with AICD/PPM), chronic venous insuff, hypertension, myocardial infarction, RCW AICD S/P CABG 2003 Respiratory: bronchitis, SLEEP APNEA Gastrointestinal: upper GI bleed Hepatic: NONE Renal: benign prost hyperplasia, nephrolithiasis Musculoskeletal: falls Psychiatric: NONE Endocrine: obesity, DIABETES TYPE 2 Blood Disorders: NONE Cancer(s): NONE BOBBIN WASHER/Reproductive: NONE History of MRSA: No History of VRE: Yes History of CDIFF: No Influenza Vaccine: 06/05/17 Surgical History Surgical History: CABG, hip replacement (right), s/p lithotripsy HIP PROSTHESIS INFECTION S/P REMOVAL 2017 AICD/PPM Past Family/Social History Family History: Noncontributory Psychosocial History: Single, lived with nephew. Functional Ability: Assist with ADLs and IADLs Review of Systems Review of Systems Constitutional: Reports: see HPI. Exam & Diagnostic Data Last 24 Hrs of Vital Signs/I&O T-96.1; HR-69; RR 14; BP-92/50; O2 SAT 93% Physical Exam General Appearance obtunded, no distress HEENT ngtube in left nare Neck tracheostomy with oxygen via trach mask Cardiovascular Regular Rate, Normal S1, Normal S2 Lungs unlabored, rhonchorous Abdomen obese, soft with 2 drains on right, jtube on left Neurological obtunded Extremities No Cyanosis, No Edema Reproductive (MALE) ramon catheter with small amount bloody urine Last 24 Hrs of Labs/Les: 09/06/16: CBC with hgb 8.6, Hct 27.2 Bun 26, Cr 0.5, alt 92 Diagnostic Data CXR Results 09/05/17:IMPRESSION: 1. Tracheostomy tube tip positions are as above. 2. There are small bilateral pleural effusions again seen, with stable adjacent bibasilar airspace disease, left greater than right 3. There is cardiomegaly, without congestive heart failure. Assessment/Plan Assessment: This is a 76-year-old gentleman with significant ischemic heart, low ejection fraction, atrial fibrillation, previous AICD, previous 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 with prolonged antibiotic, previous history of peptic ulcer disease, diabetes, sinus rhythm upon admission was on Tikosyn, hyperlipidemia, apparently has never smoked before, previous history of lithotripsy, CABG, previous hip prosthesis infection status post removal of prosthesis in early 2016 now has the following issues: acute hypoxic respiratory failure s\p tracheostomy with pneumonia, septic shock secondary to perforated duodenal ulcer S/P Fabrizio patch, Lower GI bleeding. Pt. was terminally extubated today and now placed on hospice level of care. AICD was deactivated prior. Plan: Morphine drip 2mg/hr with titration protocol Ativan 1mg IV every 2hrs as needed for anxiety Scopolamine patch and scheduled Robinul 400mcg every 4 hrs
--- NOTE | 2017-09-07 15:23 | Discharge Summary ---
Visit Information Visit Dates Admission Date: 09/06/17 Discharge Date: 09/06/17 Hospital Course Course Attending Physician: Zhanna RODRÍGUEZ,Josselin Cornejo Primary Care Physician: Ian Barron MD Hospital Course: Mr. Walls is an unfortunate 76 [id number] with PMHx of ischemic heart disease , atrial fibrillation, prior AICD, diabetes, who was admitted 2 months ago to [facility] with generalized weakness and abdominal pain. During this time his stay has been complicated by intubation and failed extubation trials, s/p tracheostomy 08/23/17, perforated duodenal ulcer (repaired with Fabrizio patch 07/09 and 07/16) with peritonitis and septic shock, ventricular tachycardia, cva, now with worsening overall status with respiratory failure with hypoxemia and desaturation on ventilator. His nephew wishes no further aggressive care and requests hospice care in view of patient's poor prognosis. He was terminally extubated and placed on a morphine drip and kept comfortable until he later the same day. Allergies: Coded Allergies: NO KNOWN ALLERGIES (03/22/12) NKA PER DIPYRIDAMOLE ORDER SHEET - SJS Disposition Summary Disposition Principal Diagnosis: acute hypoxic respiratory failure status post tracheostomy lower gastrointestinal bleed Additional Diagnosis: Perforated duodenal ulcer Discharge Disposition: Discharge Instructions General Discharge Information Code Status: Hospice Patient's Diet: N/A Patient's Activity: N/A Follow-Up Instructions/Appts: N/A Copies To: Ian Barron MD
== END 2017-09-06 21:10 | disposition expired | DRG 871 ==
LOC: CRI 16:13 → 2NA 19:04
DX: A41.9 Sepsis, unspecified organism (principal); J96.01 Acute respiratory failure with hypoxia; R65.21 Severe sepsis with septic shock; Z51.5 Encounter for palliative care; K26.5 Chronic or unspecified duodenal ulcer with perforation; J18.9 Pneumonia, unspecified organism; I48.2 Chronic atrial fibrillation; E11.9 Type 2 diabetes mellitus without complications; K92.2 Gastrointestinal hemorrhage, unspecified; I25.5 Ischemic cardiomyopathy; I25.10 Atherosclerotic heart disease of native coronary artery without angina pectoris; I87.2 Venous insufficiency (chronic) (peripheral); I25.2 Old myocardial infarction; N40.0 Benign prostatic hyperplasia without lower urinary tract symptoms; E66.9 Obesity, unspecified; E78.5 Hyperlipidemia, unspecified; Z95.1 Presence of aortocoronary bypass graft
CPT/HCPCS: J2270